=== PATIENT | female | born 1965 | race Caucasian/White ===

== ENCOUNTER 2017-11-25 17:22 | Inpatient (IN) | payer MEDICAID ==
[~2017-11-25] VITALS: Ht 167.6 cm; Wt 110.9 kg
[~2017-11-25 17:22] MED LIST: LEVO137T6 PO; LISI20TA2 PO; PARO20TA57 PO; PENI250T4 PO; SULF1TAB38 PO; [UNRECOGNIZED DRUG - CODE]
--- OUTSIDE RECORDS SUMMARY | 2017-11-25 17:28 | XMS REPORT ---
Author Author LESVIA DELACRUZ [facility] eClinicalWorks Address Unknown Phone Unavailable Care Team Providers Care Painting Department Supervisor Name Role Phone LESVIA DELACRUZ CP Unavailable Allergies No Known Allergies Problems Problem Type Condition ICD-9 Code Onset Dates Condition Status Problem Pneumonia, organism unspecified 486 Active Problem Need for prophylactic vaccination and inoculation, Influenza V04.81 Active Problem Unspecified sleep apnea 780.57 Active Problem Depression 311 Active Problem Encounter for long-term current use of medication V58.69 Active Problem Diabetes type 2, uncontrolled 250.02 Active Problem Dependence on machine for supplemental oxygen V46.2 Active Problem Obstructive chronic bronchitis, with (acute) exacerbation 491.21 Active Problem Hypothyroidism 244.9 Active Problem Chronic respiratory failure 518.83 Active Problem Insomnia, unspecified 780.52 Active Problem Cramp of limb 729.82 Active Problem Personal history of other allergy, other than to medicinal agents V15.09 Active Problem Personal history of noncompliance with medical treatment, presenting hazards to health V15.81 Active Medications No Known Medications Results No Known Results Summary Purpose eClinicalWorks Submission
--- OUTSIDE RECORDS SUMMARY | 2017-11-25 17:28 | XMS REPORT ---
Author Author LESVIA DELACRUZ [facility] eClinicalWorks Address Unknown Phone Unavailable Care Team Providers Care Executive Assistant To General Counsel Name Role Phone LESVIA DELACRUZ CP Unavailable [...] presenting hazards to health V15.81 Active Medications Medication Code System Code Instructions Start Date End Date Status Dosage Ipratropium-Albuterol [facility] [address]-24 0.5 mg-3 mg(2.5 mg base)/3 mL Inhalation Four times a day & prn up to 6 doses Jul 27, 2014 3 ml Results No Known Results Summary Purpose eClinicalWorks Submission
--- OUTSIDE RECORDS SUMMARY | 2017-11-25 17:28 | XMS REPORT ---
Author Author LESVIA DELACRUZ [facility] eClinicalWorks Address Unknown Phone Unavailable Care Team Providers Care General Scrap Worker Name Role Phone LESVIA DELACRUZ CP Unavailable [...] Instructions Start Date End Date Status Dosage Levothyroxine Sodium [facility] [address]-20 100 MCG Orally Once a day Mar 23, 2015 1 tablet Fish Oil [facility] [address]-49 1000 MG Orally Once a day Mar 23, 2015 2 capsule Ferrous Sulfate [facility] [address]-55 324 (65 Fe) MG Orally Once a day Mar 1 tablet Results No Known Results Summary Purpose eClinicalWorks Submission
--- OUTSIDE RECORDS SUMMARY | 2017-11-25 17:28 | XMS REPORT ---
Author Author LESVIA DELACRUZ [facility] eClinicalWorks Address Unknown Phone Unavailable Care Team Providers Care Track Greaser Name Role Phone LESVIA DELACRUZ CP Unavailable [...] Instructions Start Date End Date Status Dosage VESIcare [facility] [address]-31 5 MG appoint needed for additional refills TAKE ONE TABLET BY MOUTH ONCE DAILY Metformin HCl [facility] [address]-41 500 MG Orally Twice a day. Appt needed for further refills 1 tablet with meals Results No Known Results Summary Purpose eClinicalWorks Submission
--- OUTSIDE RECORDS SUMMARY | 2017-11-25 17:28 | XMS REPORT ---
Author Author DOMINICK CHRISTINE [facility] eClinicalWorks Address Unknown Phone Unavailable Care Team Providers Care Intravenous Therapy Nurse Name Role Phone DOMINICK CHRISTINE CP Unavailable Allergies, Adverse Reactions, Alerts Substance Reaction Event Type Bactrim Info Not Available Drug Allergy Problems Problem Type Condition Code Onset Dates Condition Status Assessment Encounter for immunization Z23 Active Assessment Oral thrush B37.0 Active Assessment Microcytic anemia D50.9 Active Assessment Hyperlipidemia, unspecified hyperlipidemia type E78.5 Active Assessment Essential hypertension I10 Active Assessment Urinary incontinence R32 Active Problem Hypothyroidism E03.9 Active Assessment Gastroesophageal reflux disease without esophagitis K21.9 Active Problem Type II diabetes mellitus E11.9 Active Assessment 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 Problem Heat rash L74.0 Active Problem Encounter for screening breast examination Z12.39 Active Problem On home oxygen therapy Z99.81 Active Problem Gastroesophageal reflux disease without esophagitis K21.9 Active Problem Essential hypertension I10 Active Assessment Obesity due to excess calories E66.09 Active Assessment Allergic rhinitis J30.9 Active Problem Type 2 diabetes mellitus with hyperglycemia E11.65 Active Assessment Dysuria R30.0 Active Problem Encounter for screening for malignant neoplasm of cervix Z12.4 Active Problem Screening mammogram, encounter for Z12.31 Active Problem Hyperlipidemia, unspecified hyperlipidemia type E78.5 Active Problem Encounter for well woman exam with routine gynecological exam Z01.419 Active Problem Allergic rhinitis J30.9 Active Problem Microcytic anemia D50.9 Active Assessment Hypothyroidism E03.9 Active Assessment Type 2 diabetes mellitus with hyperglycemia E11.65 Active Problem Obesity due to excess calories E66.09 Active Problem 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 1 tablet with meals Loratadine [facility] [address]-68 10 mg Orally Once a day December 08, 2015 1 tablet Ferrous Sulfate [facility] 08949732846 325 (65 Fe) MG Orally Once a day 1 tablet Albuterol Sulfate [facility] [address]-38 2.5 mg /3 mL (0.083 %) Inhalation 4 times a day October 07, 2013 1 Each by Inhalation route 4 times a day PRN for cough and wheeze Levothyroxine Sodium [facility] 10791557799 150 MCG Orally Once a day in AM 1 tablet on empty stomach with full glass of water Lisinopril [facility] 75547178016 2.5 MG Orally Once a day 1 tablet Norvasc [facility] [address]-14 10 mg Orally Once a day 1 tablet 1 time per day Spiriva HandiHaler [facility] [address]-33 18 MCG Inhalation Once a day 1 capsule Pepcid [facility] [address]-80 20 mg 1 TAB orally 2 times a day October 01, 2013 1 tablet by Oral route 2 times per day Nystatin-Triamcinolone [facility] [address]-43 723182-3.1 UNIT/GM Externally Twice a day January 12, 2016 apply thin layer to rash twice a day ProAir HFA [facility] [address]-39 108 (90 Base) MCG/ACT Inhalation every 4 hrs 2 puffs as needed Montelukast Sodium [facility] [address]-28 10 mg Orally Once a day TAKE ONE TABLET BY MOUTH ONCE DAILY Flonase [place] 0 50 mcg/actuation Nasally 2 spray(s) intranasally 2 times a day Jul 19, 2014 1 sprays by Nasal route 2 times per day in each nostril GlipiZIDE [facility] [address]-32 5 mg Orally 2 times a day 1 tablet Furosemide [facility] [address]-91 40 mg Orally Once a day TAKE ONE TABLET BY MOUTH ONCE DAILY Ipratropium-Albuterol [facility] [address]-20 0.5 mg-3 mg(2.5 mg base)/3 mL Inhalation Four times a day & prn up to 6 doses Jul 27, 2014 3 ml Advair Diskus [facility] 27090259380 250-50 MCG/DOSE Inhalation Twice a day INHALE ONE PUFF BY MOUTH TWICE DAILY APPROXIMATELY 12 HOURS APART Lipitor [facility] [address]-64 10 mg Orally Once a day 1 tablet Myrbetriq [facility] [address]-87 25 MG Orally Once a day Jun 08, 2016 Jul 08, 2016 1 tablet Fish Oil [facility] [address]-40 1000 MG Orally Once a day 2 capsule Paroxetine HCl [facility] 27472230050 40 MG Orally Once a day 1 tablet in the morning Procedures Procedure Coding System Code Date URINALYSIS, AUTO, W/O SCOPE CPT-4 15031 Jun 08, 2016 [facility] CPT-4 NOBLL Jun 08, 2016 GLYCATED HEMOGLOBIN TEST CPT-4 17785 Jun 08, 2016 SINGLE IMMUNIZATION ADMIN CPT-4 35524 Jun 08, 2016 FLUARIX QUAD P-FREE 3 AND UP .50 2015 CPT-4 81421 Jun 08, 2016 Office Visit, Est Pt., Level 4 CPT-4 92970 Jun 08, 2016 VENIPUNCT, ROUTINE* CPT-4 92994 Jun 08, 2016 Vital Signs Date/Time: Jun 08, 2016 Blood Pressure Systolic 130 mmHg Weight 252.0 lbs Height 66 in BMI 40.67 Index Blood Pressure Diastolic 78 mmHg Results Name Result Date Reference Range Unit Abnormality Flag THYROID ANALYZER ----TSH 3.060 [id number] 0.450-4.500 uIU/mL A1C (IN HOUSE) ----Exp date [id number] ----A1C IN HOUSE 6.4 [id number] 4.3 - 5.6 % ----Lot [id number] ----Previous A1c 6.1 20160608 UA LONG DIP (IN HOUSE) ----ROLLY negative 20160608 ----NIT negative 20160608 ----SG 1.015 20160608 ----KET negative 20160608 ----UCHE negative 20160608 ----GLU negative 20160608 ----Odor none 20160608 ----pH 6.0 20160608 ----BLO trace-intact 20160608 ----URO 0.2 20160608 ----Protein negative 20160608 ----Lot # [id number] ----Exp date 20160608 ----Clarity clear 20160608 ----Color yellow [id number] ROUTINE VENIPUNCTURE Immunizations Vaccine Administration Date FLUARIX QUAD P-FREE 3 AND UP .50 2015Jun 08, 2016 Summary Purpose eClinicalWorks Submission
--- OUTSIDE RECORDS SUMMARY | 2017-11-25 17:29 | XMS REPORT ---
Author Author LESIVA DELACRUZ [facility] eClinicalWorks Address Unknown Phone Unavailable Care Team Providers Care Internal Combustion Engine Inspector Name Role Phone LESVIA DELACRUZ CP Unavailable [...]
--- OUTSIDE RECORDS SUMMARY | 2017-11-25 17:29 | XMS REPORT ---
Author LESVIA Puri [facility] eClinicalWorks Address Unknown Phone Unavailable Care Team Providers Care Cancer Registry Coordinator Name Role Phone LESVIA DELACRUZ CP Unavailable Allergies, Adverse Reactions, Alerts Substance Reaction Event Type Bactrim Info Not Available Drug Allergy Problems Problem Type Condition Code Onset Dates Condition Status Problem Mixed incontinence N39.46 Active Problem Microcytic anemia D50.9 Active Problem Essential hypertension I10 Active Assessment Oral thrush B37.0 Active Problem Dependence on nocturnal oxygen therapy Z99.81 Active Problem Obstructive sleep apnea syndrome G47.33 Active Problem History of respiratory failure Z87.09 Active Problem Depression F32.9 Active Problem Insomnia G47.00 Active Problem Hypothyroidism E03.9 Active Problem Type 2 diabetes mellitus without complication E11.9 Active Medications Medication Code System Code Instructions Start Date End Date Status Dosage Nystatin [facility] [address]-83 821504 UNIT/ML Mouth/Throat 4 times a day MayJun 13, 2015 swish 4-6ml as long as possible then spit GlipiZIDE ER [facility] [address]-91 5 MG Orally Once a day TAKE ONE TABLET BY MOUTH DAILY Norvasc [facility] [address]-17 10 MG Orally Once a day October 15, 2014 1 tablet 1 time per day ProAir HFA [facility] [address]-70 108 (90 Base) MCG/ACT Inhalation every 4 hrs 2 puffs as needed Amlodipine Besylate [facility] 24904746508 10 MG TAKE ONE TABLET BY MOUTH DAILY Spiriva HandiHaler [facility] [address]-55 18 MCG Inhalation Once a day 1 capsule Paroxetine HCl [facility] [address]-24 40 MG Orally Once a day TAKE ONE TABLET BY MOUTH DAILY (DO NOT CRUSH OR CHEW) Levothyroxine Sodium [facility] [address]-28 100 MCG Orally Once a day 1 tablet Furosemide [facility] 68890284319 40 MG TAKE ONE TABLET BY MOUTH ONCE DAILY Metformin HCl [facility] [address]-81 500 MG Orally Twice a day. Appt needed for further refills 1 tablet with meals Pepcid [facility] [address]-12 20 mg 1 TAB orally 2 times a day October 01, 2013 1 tablet by Oral route 2 times per day Fish Oil [facility] [address]-30 1000 MG Orally Once a day Mar 23, 2015 2 capsule Ferrous Sulfate [facility] [address]-15 324 (65 Fe) MG Orally Once a day Mar 1 tablet VESIcare [facility] [address]-25 5 MG Orally Once a day TAKE ONE TABLET BY MOUTH ONCE DAILY Advair Diskus [facility] 85337247958 250-50 MCG/DOSE INHALE ONE PUFF BY MOUTH TWICE DAILY APPROXIMATELY 12 HOURS APART Lipitor [facility] 08633771356 10 MG Orally Once a day 1 tablet Flonase [facility] [address]-25 50 mcg/actuation 2 spray(s) intranasally 2 times a day Jul 19, 2014 1 sprays by Nasal route 2 times per day in each nostril Ipratropium-Albuterol [facility] [address]-23 0.5 mg-3 mg(2.5 mg base)/3 mL Inhalation Four times a day & prn up to 6 doses Jul 27, 2014 3 ml Potassium Chloride Windy ER [facility] 14935365924 10 MEQ TAKE ONE TABLET BY MOUTH DAILY Albuterol Sulfate [facility] [address]-68 2.5 mg /3 mL (0.083 %) October 07, 2013 1 Each by Inhalation route every 4 hours for cough and wheeze PRN for wheezing or cough Procedures Procedure Coding System Code Date Office Visit, Est Pt., Level 3 CPT-4 90719 May 30, 2015 Vital Signs Date/Time: May 30, 2015 Temperature 98.4 F Weight 209.6 lbs Height 66 in BMI 33.83 Index Blood Pressure Diastolic 80 mmHg Blood Pressure Systolic 128 mmHg Cardiac Monitoring Heart Rate 100 bpm Results No Known Results Summary Purpose eClinicalWorks Submission
--- OUTSIDE RECORDS SUMMARY | 2017-11-25 17:29 | XMS REPORT ---
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 Problem Type II diabetes mellitus E11.9 Active Problem Anemia D64.9 Active Problem Microcytic anemia D50.9 Active Problem Obesity due to excess calories E66.09 Active Problem Urinary incontinence R32 Active Assessment Anemia D64.9 Active Assessment Urinary incontinence R32 Active Assessment Allergic rhinitis J30.9 Active Assessment Obesity due to excess calories E66.09 Active Assessment Microcytic anemia D50.9 Active Assessment 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 Medications Medication Code System Code Instructions Start Date End Date Status Dosage Norvasc [facility] [address]-10 10 MG Orally Once a day October 15, 2014 1 tablet 1 time per day VESIcare [facility] [address]-87 5 MG Orally Once a day TAKE ONE TABLET BY MOUTH ONCE DAILY Advair Diskus [facility] 56593408367 250-50 MCG/DOSE INHALE ONE PUFF BY MOUTH TWICE DAILY APPROXIMATELY 12 HOURS APART Fish Oil [facility] [address]-96 1000 MG Orally Once a day Mar 23, 2015 2 capsule Paroxetine HCl [facility] [address]-23 40 MG Orally Once a day TAKE ONE TABLET BY MOUTH DAILY (DO NOT CRUSH OR CHEW) Levothyroxine Sodium [facility] 99980695458 100 MCG TAKE ONE TABLET BY MOUTH ONCE DAILY Albuterol Sulfate [facility] [address]-87 2.5 mg /3 mL (0.083 %) October 07, 2013 1 Each by Inhalation route every 4 hours for cough and wheeze PRN for wheezing or cough Furosemide [facility] 85667430775 40 MG TAKE ONE TABLET BY MOUTH ONCE DAILY Potassium Chloride Windy ER [facility] 49305789724 10 MEQ TAKE ONE TABLET BY MOUTH DAILY GlipiZIDE ER [facility] [address]-09 5 MG Orally Once a day TAKE ONE TABLET BY MOUTH DAILY Flonase [facility] 0 50 mcg/actuation 2 spray(s) intranasally 2 times a day Jul 19, 2014 1 sprays by Nasal route 2 times per day in each nostril Ferrous Sulfate [facility] [address]-14 325 (65 Fe) MG Orally Once a day TAKE ONE TABLET BY MOUTH ONCE DAILY (MUST HAVE APPOINTMENT FOR REFILL) Metformin HCl [facility] [address]-92 500 MG Orally Twice a day. Appt needed for further refills 1 tablet with meals Pepcid [facility] [address]-51 20 mg 1 TAB orally 2 times a day October 01, 2013 1 tablet by Oral route 2 times per day Spiriva HandiHaler [facility] [address]-52 18 MCG Inhalation Once a day 1 capsule ProAir HFA [facility] [address]-64 108 (90 Base) MCG/ACT Inhalation every 4 hrs 2 puffs as needed Ipratropium-Albuterol [facility] [address]-86 0.5 mg-3 mg(2.5 mg base)/3 mL Inhalation Four times a day & prn up to 6 doses Jul 27, 2014 3 ml Lipitor [facility] 32322063483 10 MG Orally Once a day 1 tablet Procedures Procedure Coding System Code Date MICROALBUMIN, SEMIQUANT CPT-4 79682 Aug 26, 2015 COMPLETE CBC W/AUTO DIFF WBC CPT-4 24721 Aug 26, 2015 GLYCATED HEMOGLOBIN TEST CPT-4 12351 Aug 26, 2015 ASSAY OF URINE CREATININE CPT-4 83749 Aug 26, 2015 Office Visit, Est Pt., Level 3 CPT-4 13083 Aug 26, 2015 VENIPUNCT, ROUTINE* CPT-4 95946 Aug 26, 2015 MICROALBUMIN, QUANTITATIVE CPT-4 80651 Aug 26, 2015 Vital Signs Date/Time: Aug 26, 2015 Temperature 98.1 F Weight 226.0 lbs Height 66 in BMI 36.47 Index Blood Pressure Diastolic 80 mmHg Blood Pressure Systolic 122 mmHg Cardiac Monitoring Heart Rate 88 bpm Results Name Result Date Reference Range Unit Abnormality Flag ROUTINE VENIPUNCTURE Summary Purpose eClinicalWorks Submission
--- OUTSIDE RECORDS SUMMARY | 2017-11-25 17:29 | XMS REPORT ---
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 60164251 Problem Obesity due to excess calories E66.09 Active 621702018 Problem Allergic rhinitis J30.9 Active 73409625 Problem COPD with exacerbation J44.1 Active 319697718406419 Problem Recurrent major depressive disorder, in full remission F33.42 Active 386965377 Problem Essential hypertension I10 Active 76850968 Problem On home oxygen therapy Z99.81 Active 309038346146 Problem Gastroesophageal reflux disease without esophagitis K21.9 Active 948135948 Problem Hyperlipidemia, unspecified hyperlipidemia type E78.5 Active 99495436 ALLERGIES No Information SOCIAL HISTORY Never Assessed PLAN OF CARE VITAL SIGNS MEDICATIONS Medication Instructions Dosage Frequency Start Date End Date Duration Status Levothyroxine Sodium 150 MCG TAKE ONE TABLET BY MOUTH IN THE MORNING ON AN EMPTY STOMACH WITH A FULL GLASS OF WATER 90 Active RESULTS No Results PROCEDURES No Known procedures IMMUNIZATIONS No Known Immunizations MEDICAL (GENERAL) HISTORY Type Description Date Medical History hypertension Medical History Hypothyroidism Medical History chronic obstructive pulmonary disease (COPD) Medical History obesity Medical History type II diabetes Medical History insomnia Medical History sleep apnea Medical History oxygen dependent Medical History mood disorder Surgical History cholecystectomy
--- OUTSIDE RECORDS SUMMARY | 2017-11-25 17:29 | XMS REPORT ---
Author JOEL Novoa [facility] eClinicalWorks Address Unknown Phone Unavailable Care Team Providers Care Electrician Marine Name Role Phone JOEL FALCON CP Unavailable Allergies, Adverse Reactions, Alerts Substance Reaction Event Type Bactrim Info Not Available Drug Allergy Problems Problem Type Condition ICD-9 Code Onset [...] Active Problem Chronic respiratory failure 518.83 Active Assessment Encounter for long-term current use of medication V58.69 Active Assessment Hypothyroidism 244.9 Active Problem Insomnia, unspecified 780.52 Active Problem Cramp of limb 729.82 Active Assessment Wheezing 786.07 Active Problem Personal history of other allergy, other than to medicinal agents V15.09 Active Assessment Cough 786.2 Active Problem Personal history of noncompliance with medical treatment, presenting hazards to health V15.81 Active Medications Medication Code System Code Instructions Start Date End Date Status Dosage PredniSONE [facility] [address]-04 40 mg Orally Once a day Mar 15, 2015 Mar 20, 2015 1 tablet Tessalon Perles [facility] [address]-58 200 mg Orally Three times a day for cough Mar 15, 2015 Mar 22, 2015 1 capsule as needed Norvasc [facility] [address]-36 10 mg October 15, 2014 1 tablet 1 time per day VESIcare [facility] 99965248900 5 MG TAKE ONE TABLET BY MOUTH ONCE DAILY GlipiZIDE [facility] [address]-35 5 mg October 15, 2014 1 tablet by Oral route 1 time per day Flonase [facility] [address]-55 50 mcg/actuation 2 spray(s) intranasally 2 times a day Jul 19, 2014 1 sprays by Nasal route 2 times per day in each nostril Ipratropium-Albuterol [facility] [address]-87 0.5 mg-3 mg(2.5 mg base)/3 mL Jul 27, 2014 inhale 3 milliliters by nebulization route 4 times per day and as needed, up to 6 doses per day metformin [facility] 0 500 mg 2 times a day with meals October 01, 2013 1 tablet levothyroxine [facility] 0 200 mcg May 03, 2014 1 tablet by Oral route 1 time per day ProAir HFA [facility] 54153533678 108 (90 Base) MCG/ACT INHALE TWO PUFFS BY MOUTH EVERY 4 HOURS NEEDED FOR SHORTNESS OF BREATH/COUGH Lipitor [facility] 53684365418 10 MG Orally Once a day 1 tablet Lasix [facility] [address]-70 40 mg October 15, 2014 1 tablet by Oral route 1 time per day Spiriva HandiHaler [facility] [address]-45 18 MCG Inhalation Once a day 1 capsule Furosemide [facility] 59244356215 40 MG TAKE ONE TABLET BY MOUTH ONCE DAILY Pepcid [facility] [address]-36 20 mg 1 TAB orally 2 times a day October 01, 2013 1 tablet by Oral route 2 times per day Paroxetine HCl [facility] [address]-26 40 MG Orally Once a day TAKE ONE TABLET BY MOUTH DAILY (DO NOT CRUSH OR CHEW) Advair Diskus [facility] 38128912745 250-50 MCG/DOSE INHALE ONE PUFF BY MOUTH TWICE DAILY APPROXIMATELY 12 HOURS APART Albuterol Sulfate [facility] [address]-80 2.5 mg /3 mL (0.083 %) October 07, 2013 1 Each by Inhalation route every 4 hours for cough and wheeze PRN for wheezing or cough Procedures Procedure Coding System Code Date ASSAY THYROID STIM HORMONE CPT-4 05587 Mar 15, 2015 COMPLETE CBC W/AUTO DIFF WBC CPT-4 24484 Mar 15, 2015 Office Visit, Est Pt., Level 3 CPT-4 93063 Mar 15, 2015 COMPREHEN METABOLIC PANEL CPT-4 30643 Mar 15, 2015 LIPID PANEL CPT-4 82905 Mar 15, 2015 VENIPUNCT, ROUTINE* CPT-4 88050 Mar 15, 2015 Vital Signs Date/Time: Mar 15, 2015 Temperature 98.0 F Weight 209.3 lbs Height 66 in BMI 33.78 Index Blood Pressure Diastolic 74 mmHg Blood Pressure Systolic 124 mmHg Cardiac Monitoring Heart Rate 88 bpm Results Name Result Date Reference Range Unit Abnormality Flag ROUTINE VENIPUNCTURE Summary Purpose eClinicalWorks Submission
--- OUTSIDE RECORDS SUMMARY | 2017-11-25 17:29 | XMS REPORT ---
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 Problem Encounter for screening for malignant neoplasm of cervix Z12.4 Active Problem Screening mammogram, encounter for Z12.31 Active Problem Encounter for well woman exam with routine gynecological exam Z01.419 Active Problem Heat rash L74.0 Active Problem Type II diabetes mellitus E11.9 Active Problem Encounter for screening breast examination Z12.39 Active Problem On home oxygen therapy Z99.81 Active Problem Allergic rhinitis J30.9 Active Problem Microcytic anemia D50.9 Active Problem Anemia D64.9 Active Problem Urinary incontinence R32 Active Medications No Known Medications Results No Known Results Summary Purpose Easy [employer] Submission
--- OUTSIDE RECORDS SUMMARY | 2017-11-25 17:29 | XMS REPORT ---
Author LESVIA Puri [facility] [employer] Address Unknown Phone Unavailable Care Team Providers Care Car Electronics Installer Name Role Phone LESVIA DELACRUZ CP Unavailable Allergies No Known Allergies Problems Problem Type Condition Code Onset Dates Condition Status Problem Pneumonia, [...] Instructions Start Date End Date Status Dosage Furosemide [facility] [address]-62 40 MG TAKE ONE TABLET BY MOUTH ONCE DAILY Results No Known Results Summary Purpose [employer] Submission
--- OUTSIDE RECORDS SUMMARY | 2017-11-25 17:29 | XMS REPORT ---
Author Author LESVIA DELACRUZ [facility] [employer] Address Unknown Phone Unavailable Care Team Providers Care Rn Social Services Name Role Phone LESVIA DELACRUZ CP Unavailable [...] Instructions Start Date End Date Status Dosage ProAir HFA [facility] [address]-68 108 (90 Base) MCG/ACT Inhalation every 4 hrs 2 puffs as needed Results No Known Results Summary Purpose [employer] Submission
--- OUTSIDE RECORDS SUMMARY | 2017-11-25 17:29 | XMS REPORT ---
Author Author LESVIA DELACRUZ Organization [employer] Address Unknown Phone Unavailable Care Team Providers Care Final Operations Technician Name Role Phone LESVIA DELACRUZ CP Unavailable Allergies No Known Allergies Problems Problem Type Condition Code Onset Dates Condition Status Problem Essential hypertension I10 Active Problem Insomnia G47.00 Active Problem Microcytic anemia D50.9 Active Assessment Upper respiratory symptom R09.89 Active Problem Mixed incontinence N39.46 Active Problem History of respiratory failure Z87.09 Active Problem Dependence on nocturnal oxygen therapy Z99.81 Active Problem Upper respiratory symptom R09.89 Active Problem Type 2 diabetes mellitus without complication E11.9 Active Problem Depression F32.9 Active Problem Obstructive sleep apnea syndrome G47.33 Active Problem Hypothyroidism E03.9 Active Medications Medication Code System Code Instructions Start Date End Date Status Dosage Azithromycin [facility] [address]-51 250 MG Orally Once a day Jun 02, 2015 Jun 07, 2015 2 tablets on the first day, then 1 tablet daily for 4 days Results No Known Results Summary Purpose [employer] Submission
--- OUTSIDE RECORDS SUMMARY | 2017-11-25 17:29 | XMS REPORT ---
Author Author LESVIA DELACRUZ Organization [employer] Address Unknown Phone Unavailable Care Team Providers Care Coal Hiker Name Role Phone LESVIA DELACRUZ CP Unavailable Allergies No Known Allergies Problems Problem Type Condition Code Onset Dates Condition Status Problem Mixed incontinence N39.46 Active Problem Microcytic anemia D50.9 Active Problem Essential hypertension I10 Active Assessment Microcytic anemia D50.9 Active Assessment Hypothyroidism E03.9 Active Problem Dependence on nocturnal oxygen therapy Z99.81 Active Problem Obstructive sleep apnea syndrome G47.33 Active Problem History of respiratory failure Z87.09 Active Problem Depression F32.9 Active Problem Insomnia G47.00 Active Problem Hypothyroidism E03.9 Active Problem Type 2 diabetes mellitus without complication E11.9 Active Medications No Known Medications Results No Known Results Summary Purpose [employer] Submission
--- OUTSIDE RECORDS SUMMARY | 2017-11-25 17:30 | XMS REPORT ---
Author Author DOMINICK CHRISTINE Organization [facility] Address [address] [place] [address] Care Team Providers Care Automatic Lathe Setter Name Role Phone CHRISTINEDOMINICK Bradshaw Unavailable PROBLEMS Type Condition ICD9-CM Code [id number] Code Onset Dates Condition Status SNOMED Code Problem On home oxygen therapy Z99.81 Active 246509656331 Problem Screening mammogram, encounter for Z12.31 Active 654392273 Problem Encounter for screening breast examination Z12.39 Active 216054754 Problem Type 2 diabetes mellitus with hyperglycemia E11.65 Active 802911107049086 Problem Gastroesophageal reflux disease without esophagitis K21.9 Active 815037676 Problem Encounter for well woman exam with routine gynecological exam Z01.419 Active 051080219 Problem Encounter for screening for malignant neoplasm of cervix Z12.4 Active 966278364 Problem Essential hypertension I10 Active 27902067 Problem Hyperlipidemia, unspecified hyperlipidemia type E78.5 Active 00686189 Problem Microcytic anemia D50.9 Active 787184552 Problem Anemia D64.9 Active 886735974 Problem Allergic rhinitis J30.9 Active 26309177 Problem 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 32783708 Problem Hypothyroidism E03.9 Active 88151123 Problem Urinary incontinence R32 Active 725431252 Problem Type II diabetes mellitus E11.9 Active 99081930 Problem Obesity due to excess calories E66.09 Active 382406520 Problem Heat rash L74.0 Active 83037223 ALLERGIES Unknown Allergies SOCIAL HISTORY No smoking Hx information available PLAN OF CARE VITAL SIGNS MEDICATIONS Medication Instructions Dosage Frequency Start Date End Date Duration Status VESIcare 5 mg Orally Once a day TAKE ONE TABLET BY MOUTH ONCE DAILY 24h Active RESULTS No Results PROCEDURES No Known procedures IMMUNIZATIONS No Known Immunizations
--- OUTSIDE RECORDS SUMMARY | 2017-11-25 17:30 | XMS REPORT ---
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 30152923 Problem Obesity due to excess calories E66.09 Active 674408039 Problem Allergic rhinitis J30.9 Active 32193580 Problem COPD with exacerbation J44.1 Active [id number] Problem Recurrent major depressive disorder, in full remission F33.42 Active 356969612 Problem Essential hypertension I10 Active 43003811 Problem On home oxygen therapy Z99.81 Active 171115941241 Problem Gastroesophageal reflux disease without esophagitis K21.9 Active 215247933 Problem Hyperlipidemia, unspecified hyperlipidemia type E78.5 Active 87853749 ALLERGIES No Information ENCOUNTERS Encounter Location Date Diagnosis [facility] [address], [place] [address] Oct, [facility] [id number] [place] [address] 31723- 8748 Sep, [facility] [address], [place] [address] Sep, [facility] [id number] [place] [address] 93512- 9034 Sep, [facility] [address], [place] [address] Sep, [facility] [id number], [place] [address] Jul, Encounter for immunization Z23 [facility] [id number] [place] [address]68 -9251 Jun, Subacute maxillary sinusitis J01.00 [facility] [id number] [place] [address] 35519- 9456 May, [facility] [address] [address]- 7608 May, [facility] [id number] [place] [address] 65605- 8375 May, Type II diabetes mellitus E11.9 ; Hypothyroidism E03.9 ; 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 ; Cough R05 ; COPD with exacerbation J44.1 and Pneumonia of right lower lobe due to infectious organism J18.1 [facility] [id number] [place] [address] 75877- 0165 Mar, Hyperlipidemia, unspecified hyperlipidemia type E78.5 [facility] [id number] [place] [address] 18963- 8559 Mar, Hypothyroidism E03.9 and Hyperlipidemia, unspecified hyperlipidemia type E78.5 [facility] [id number] [place] [address] 09531- 4406 Feb, Type II diabetes mellitus E11.9 ; Hypothyroidism E03.9 ; 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 ; Obesity due to excess calories E66.09 ; Allergic rhinitis J30.9 ; Microcytic anemia D50.9 ; Gastroesophageal reflux disease without esophagitis K21.9 ; Essential hypertension I10 ; Hyperlipidemia, unspecified hyperlipidemia type E78.5 ; Recurrent major depressive disorder, in full remission F33.42 and Urinary incontinence R32 [facility] [id number] [place] [address] 14311- 0541 Jan, [facility] [id number] [place] [address] 65871- 3906 Jan, [id number] [place] [address] 70767- 9117 November, [address] [address]- 5[address] Sep, Type II diabetes mellitus E11.9 ; Hypothyroidism E03.9 ; On home oxygen therapy Z99.81 ; Gastroesophageal reflux disease without esophagitis K21.9 ; Recurrent major depressive disorder, in full remission F33.42 ; Essential hypertension I10 ; 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 ; Urinary incontinence R32 ; Anemia D64.9 ; Allergic rhinitis J30.9 ; Hyperlipidemia, unspecified hyperlipidemia type E78.5 and Tinea pedis of both feet B35.[address] [address]- 3948 Jun, [facility] [place] [address] [address] Jun, Acute upper respiratory infection, unspecified J06.9 and Other viral agents as the cause of diseases classified elsewhere B97.[address] 57241- 3360 May, [address] 27737- 5760 May, Type 2 diabetes mellitus with hyperglycemia E11.65 ; Hypothyroidism E03.9 ; Obesity due to excess calories E66.09 ; Allergic rhinitis J30.9 ; Dysuria R30.0 ; 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 ; Gastroesophageal reflux disease without esophagitis K21.9 ; Urinary incontinence R32 ; Essential hypertension I10 ; Hyperlipidemia, unspecified hyperlipidemia type E78.5 ; Microcytic anemia D50.9 ; Oral thrush B37.0 and Encounter for immunization Z23 [address] [address]- [address] Apr, [address] 95982- 2339 Apr, [address] [id number] [address] Mar, [facility] [id number] [place] [address] 73919- 2018 Dec, [facility] [id number] [place] [address] 98766- 6955 Dec, [facility] [id number] [place] [address] 05115- 0543 Dec, Encounter for well woman exam with routine gynecological exam Z01.419 ; Encounter for screening for malignant neoplasm of cervix Z12.4 ; Screening mammogram, encounter for Z12.31 ; Encounter for screening breast examination Z12.39 ; On home oxygen therapy Z99.81 ; 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 ; Heat rash L74.0 ; Type II diabetes mellitus E11.9 and Hypothyroidism E03.9 [facility] [id number] [place] [address] 85261- 2187 November, [facility] [id number] [place] [address] 07416- 0351 November, Type II diabetes mellitus E11.9 ; Allergic rhinitis J30.9 ; Hypothyroidism E03.9 ; Obesity due to excess calories E66.09 ; Urinary incontinence R32 ; Gastroesophageal reflux disease without esophagitis K21.9 and Essential hypertension I10 [facility] [id number] [place] [address] 44801- 5940 Oct, [facility] [id number] [place] [address] 38103- 4465 Sep, [facility] [id number] [place] [address] 80328- 7114 Sep, [facility] [id number] [place] [address] 59793 -1146 Aug, Acute maxillary sinusitis J01.00 [facility] [id number] [place] [address] 90545- 4637 Aug, [place] [id number] [place] [address] 97070- 5800 Aug, [address] [address] 85099- 0723 16 Aug, 2015 Type II diabetes mellitus E11.9 [place] [address] 58667- 9880 Aug, Type II diabetes mellitus E11.9 ; Hypothyroidism E03.9 ; 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 ; Obesity due to excess calories E66.09 ; Urinary incontinence R32 ; Anemia D64.9 ; Microcytic anemia D50.9 and Allergic rhinitis J30.[address] 11141- 0308 May, Upper respiratory symptom R09.[address] 13621- 8763 May, Oral thrush B37.[address] 67661- 9073 Apr, Hypothyroidism E03.9 and Microcytic anemia D50.9 [place] [id number] [place] [address] 53928- 4546 Apr, Encounter for long-term current use of medication Z79.899 ; Hypothyroidism E03.9 ; Microcytic anemia D50.9 ; Type 2 diabetes mellitus without complication E11.9 ; Essential hypertension I10 and Mixed incontinence N39.46 [place] [id number] [place] [address] 82152- 2719 Apr, [place] [address] 83193- 4740 Mar, [place] [id number] [place] [address] 66717- 9767 Mar, [place] [address] 17168- 4372 Mar, [facility] [address], [place] [address]- 2076 Mar, [facility] [id number] [place] [address] 69768- 0506 Mar, [facility] [address], [place] [address]- 2546 Mar, [facility] [id number] [place] [address] 05101 2546 Mar, [facility] [id number] [place] [address] 85618- 2006 Feb, Cough 786.2 ; Wheezing 786.07 ; Hypothyroidism 244.9 and Encounter for long-term current use of medication V58.69 [facility] [id number] [address]- 8258 Feb, Diabetes type 2, uncontrolled 250.02 ; Depression 311 ; Encounter for long-term current use of medication V58.69 and Hypothyroidism 244.9 [facility] [address], [place] [address]- 9106 Feb, [facility] [address], [place] [address]- 7516 Jan, [facility] [address] [address]- 6901 Oct, [facility] [address], [place] [address]- 2306 14 Oct, 2014 [facility] [address] [address]- 2576 Oct, [facility] [id number] [place] [address] 94287- 6196 30 Sep, 2014 [facility] [address], [place] [address]- 4676 Sep, [facility] [id number] [place] [address] 21324- 1040 Sep, [facility] [place] [facility] [address] [id number] [place] [address]- 4275 Aug, [facility] [place] [facility] [address] [id number] [place] [address]- 8926 Aug, [facility] [place] [facility] [address] [facility] [id number] [place] [address]- 1801 Jul, [facility] [place] [facility] [address] [id number] [place] [address]- 6661 Jul, [facility] [place] [facility] [address] [id number] [place] [address]- 7096 Jul, [facility] [place] [facility] [address] [id number] [place] [address]- 1212 Jul, [facility] [place] [facility] [address] [facility] [id number] [place] [address]- 0349 Jul, [facility] [place] [facility] [address] [id number] [place] [address]- 7738 Jul, [facility] [place] [facility] [address] [id number] [place] [address]- 4519 Jul, [facility] [place] [facility] [address] [facility] [id number] [place] [address]- 0703 Jul, [facility] [place] [facility] [address] [id number] [address]- 8740 Jun, [facility] [place] [facility] [address] [id number], [place] [address]- 7861 Jun, [facility] [place] [facility] [address] [id number] [place] [address]- 6366 May, [facility] [place] [facility] [address] [id number] [place] [address]- 7217 May, [facility] [place] [facility] [address] [facility] [id number] [place] [address]- 2546 May, [facility] [place] [facility] [address] [id number] [place] [address]- 5204 Apr, [facility] [place] [facility] [address] [id number] [place] [address]- 7529 Apr, [facility] [place] [facility] [address] [id number] [place] [address]- 6006 Apr, [facility] [place] [facility] [address] [id number] [place] [address]- 1386 Apr, [facility] [place] [facility] [address] [id number] [place] [address]- 1732 Apr, [facility] [place] [facility] [address] [id number] [place] [address]- 7843 Apr, [facility] [place] [facility] [address] [id number] [place] [address]- 6555 Mar, [facility] [place] [facility] [address] [id number] [place] [address]- 5126 Mar, [facility] [place] [facility] [address] [id number] [place] [address]- 3243 19 Mar, 2014 [facility] [place] [facility] [address] [id number] [place] [address]- 9280 19 Mar, 2014 [facility] [place] [facility] [address] [id number] [place] [address]- 6304 Sep, [facility] [place] [facility] [address] [id number] [place] [address]- 1015 Sep, [facility] [place] [facility] [address] [id number] [place] [address]- 9583 Sep, [facility] [place] [facility] [address] [id number] [place] [address]- 4774 Sep, [facility] [place] [facility] [address] [id number] [place] [address]- 6157 Aug, [facility] [place] [facility] [address] [id number] [place] [address]- 3096 Aug, [facility] [place] [facility] [address] [id number] [place] [address]- 2395 Aug, [facility] [place] [facility] [address] [id number] [place] [address]- 5553 Aug, [facility] [place] [facility] [address] [id number] [place] [address]- 8847 Aug, [facility] [place] [facility] [address] [id number] [place] [address]- 0656 Aug, [facility] [place] [facility] [address] [id number] [place] [address]- 3691 Jul, [facility] [place] [facility] [address] [id number] [place] [address]- 5766 Jul, [facility] [place] [facility] [address] [id number] [place] [address]- 8754 Jul, [facility] [place] [facility] [address] [id number], [place] [address]- 8096 Jul, [facility] [place] [facility] [address] [id number] [place] [address]- 0533 Jun, [facility] [place] [facility] [address] [id number] [place] [address]- 4486 Jun, [facility] [place] [facility] [address] [id number] [address]- 6131 May, [facility] [place] [facility] [address] [id number][place] [address]- 0820 May, [facility] [place] [facility] [address] [id number] [place] [address]- 7046 Apr, [facility] [place] [facility] [address] [id number], [place] [address]- 5786 Apr, [facility] [place] [facility] [address] [id number] [place] [address]- 1225 Apr, [facility] [place] [facility] [address] [id number] [place] [address]- 5320 Mar, [facility] [address] [id number] [place] [address]- 8115 Mar, [facility] [place] [facility] [address] [id number] [place] [address]- 0768 Mar, [facility] [address] [id number] [place] [address]- 6166 Mar, [facility] [place] [facility] [address] [id number] [place] [address]- 0900 Feb, [facility] [place] [facility] [address] [id number] [place] [address]- 4399 Jan, [facility] [place] [facility] [address] [id number] [place] [address]- 3651 Jan, [facility] [address] [id number] [place] [address]- 8552 Jan, [facility] [place] [facility] [address] [id number] [place] [address]- 6953 Jan, [facility] [place] [facility] [address] [id number] [place] [address]- 1337 Dec, [facility] [place] [facility] [address] [id number] [place] [address]- 0220 Dec, [facility] [place] [facility] [address] [id number] [place] [address]- 9791 Dec, [facility] [place] [facility] [address] [id number] [place] [address]- 1305 Dec, [facility] [place] [facility] [address] [id number] [place] [address]- 4735 Dec, [facility] [place] [facility] [address] [id number] [place] [address]- 6736 Dec, [facility] [place] [facility] [address] [id number] [place] [address]- 9423 November, [facility] [place] [facility] [address] [id number] [place] [address]- 3623 November, [facility] [address] [id number] [place] [address]- 2045 November, [facility] [address] [id number] [place] 5456 Oct, [facility] [address] [id number] [place] [address]- 2274 Oct, [facility] [address] [id number] [place] [address]- 3224 Sep, [facility] [address] [id number] [place] [address]- 2519 Sep, [facility] [address] [id number] [place] [address]- 4201 Sep, [facility] [address] [id number] [place] [address]- 0629 Sep, [facility] [address] [id number] [place] [address]- 4533 Sep, [facility] [address] [id number] [place] [address]- 1680 Aug, [facility] [address] [id number] [place] [address]- 8688 Aug, [facility] [address] [id number] [place] [address]- 4511 Aug, [facility] [place] [facility] [address] [id number] [place] [address]- 6562 Aug, [facility] [place] [facility] [address] [id number] [place] [address]- 5456 Aug, [facility] [place] [facility] [address] [id number] [place] [address]- 2908 Jul, [facility] [place] [facility] [address] [id number] [place] [address]- 7359 08 Jul, 2012 [facility] [address] [id number] [place] [address]- 0004 19 Jun, 2012 [facility] [place] [facility] [address] [id number] [place] [address]- 4830 Jun, [facility] [place] [facility] [address] [id number] [place] [address]- 0715 18 Jun, 2012 [facility] [place] [facility] [address] [id number] [place] [address]- 1201 18 Jun, 2012 [facility] [place] [facility] [address] [id number] [place] [address]- 9401 Jun, [facility] [place] [facility] [address] [id number] [place] [address]- 1774 Jun, [facility] [address] [id number] [place] [address]- 0837 Jun, [facility] [place] [facility] [address] [id number] [place] [address]- 3913 Jun, [facility] [place] [facility] [address] [id number] [place] [address]- 9958 Jun, [facility] [place] [facility] [address] [id number] [place] [address]- 8802 May, [facility] [place] [facility] [address] [id number] [place] [address]- 4425 May, [facility] [place] [facility] [address] [id number] [address]- 7483 May, [facility] [place] [facility] [address] [id number] [place] [address]- 8514 May, [facility] [place] [facility] [address] [id number] [place] [address]- 2561 May, [facility] [place] [facility] [address] [id number], [place] [address]- 7371 May, [facility] [place] [facility] [address] [id number] [place] [address]- 0048 08 May, 2012 [facility] [place] [facility] [address] [id number] [place] [address]- 8676 Apr, [facility] [place] [facility] [address] [id number] [place] [address] 2546 Mar, [facility] [place] [facility] [address] [id number] [place] [address]- 7106 Mar, [facility] [place] [facility] [address] [id number] [place] [address]- 1166 Feb, [facility] [place] [facility] [address] [id number] [place] [address]- 6316 Feb, [facility] [place] [facility] [address] [id number] [place] [address]- 7779 Feb, [facility] [place] [facility] [address] [id number] [place] [address]- 3325 Feb, [facility] [place] [facility] [address] [id number] [place] [address]- 6697 Jan, [facility] [place] [facility] [address] [id number] [place] [address]- 3393 Jan, [facility] [place] [facility] [address] [id number] [place] [address]- 1316 Jan, [facility] [place] [facility] [address] [id number] [place] [address]- 9261 Jan, [facility] [place] [facility] [address] [id number] [place] [address]- 7131 Dec, [facility] [place] [facility] [address] [id number] [place] [address]- 7446 Dec, [facility] [place] [facility] [address] [id number] [place] [address]- 2546 Dec, [facility] [place] [facility] [address] [id number] [place] [address]- 3953 Dec, [facility] [id number] [address]- 4863 Dec, [facility] [address] [address]- 1396 Sep, [facility] [address] [address] 2546 Aug, [facility] [address] [place] [address] 2546 Jul, [facility] [address] [address]- 3258 Jun, [facility] [address] [address] Jun, [facility] [id number] [address] Jun, [facility] [id number] [address] Jun, [facility] [id number] [address] May, [facility] [id number] [address] May, [facility] [id number] [address] Apr, [facility] [id number] [address] Jun, [facility] [id number] [address] Apr, IMMUNIZATIONS No Known Immunizations SOCIAL HISTORY Never Assessed REASON FOR VISIT Medication question PLAN OF CARE VITAL SIGNS MEDICATIONS Medication Instructions Dosage Frequency Start Date End Date Duration Status Lipitor 20 mg Orally Once a day 1/2 tablet 24h Active RESULTS No Results PROCEDURES No Known procedures INSTRUCTIONS MEDICATIONS ADMINISTERED No Known Medications MEDICAL (GENERAL) HISTORY Type Description Date Medical History hypertension Medical History Hypothyroidism Medical History chronic obstructive pulmonary disease (COPD) Medical History obesity Medical History type II diabetes Medical History insomnia Medical History sleep apnea Medical History oxygen dependent Medical History mood disorder Surgical History cholecystectomy
--- OUTSIDE RECORDS SUMMARY | 2017-11-25 17:31 | XMS REPORT ---
Author Author DOMINICK CHRISTINE Organization [employer] Address Unknown Phone Unavailable Care Team Providers Care Impregnator Helper Name Role Phone DOMINICK CHRISTINE CP Unavailable Allergies No Known Allergies Problems Problem Type Condition Code Onset Dates Condition Status Problem Heat rash L74.0 Active Problem Encounter for screening breast examination Z12.39 Active Problem On home oxygen therapy Z99.81 Active Problem Gastroesophageal reflux disease without esophagitis K21.9 Active Problem Essential hypertension I10 Active Problem Type 2 diabetes mellitus with hyperglycemia E11.65 Active Problem Encounter for screening for malignant [...] J43.9 Active Problem Anemia D64.9 Active Problem Hypothyroidism E03.9 Active Problem Urinary incontinence R32 Active Problem Type II diabetes mellitus E11.9 Active Medications Medication Code System Code Instructions Start Date End Date Status Dosage Paroxetine HCl [facility] [address]-56 40 mg Orally Once a day 1 tablet in the morning Results No Known Results Summary Purpose [employer] Submission
--- OUTSIDE RECORDS SUMMARY | 2017-11-25 17:31 | XMS REPORT ---
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 31859948 Problem Type II diabetes mellitus E11.9 Active 67340648 Problem Hypothyroidism E03.9 Active 70316558 Problem Encounter for well woman exam with routine gynecological exam Z01.419 Active 529917144 Problem Encounter for screening for malignant neoplasm of cervix Z12.4 Active 829746457 Problem On home oxygen therapy Z99.81 Active 448453479767 Problem Heat rash L74.0 Active 94748291 Problem Screening mammogram, encounter for Z12.31 Active 353396663 Problem Encounter for screening breast examination Z12.39 Active 693253669 Problem Microcytic anemia D50.9 Active 600216290 Problem Anemia D64.9 Active 810013190 Problem Urinary incontinence R32 Active 201575904 Problem Allergic rhinitis J30.9 Active 73436126 Problem Obesity due to excess calories E66.09 Active 679481596 ALLERGIES Unknown Allergies SOCIAL HISTORY No smoking Hx information available PLAN OF CARE VITAL SIGNS MEDICATIONS Medication Instructions Dosage Frequency Start Date End Date Duration Status Flonase 50 mcg/actuation 1 sprays by Nasal route 2 times per day in each nostril Jun, Active RESULTS No Results PROCEDURES No Known procedures IMMUNIZATIONS No Known Immunizations
--- OUTSIDE RECORDS SUMMARY | 2017-11-25 17:31 | XMS REPORT ---
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 23893638 Problem Obesity due to excess calories E66.09 Active 324011785 Problem Allergic rhinitis J30.9 Active 34449633 Problem COPD with exacerbation J44.1 Active [id number] Problem Recurrent major depressive disorder, in full remission F33.42 Active 267960983 Problem Essential hypertension I10 Active 17849347 Problem On home oxygen therapy Z99.81 Active 229382307701 Problem Gastroesophageal reflux disease without esophagitis K21.9 Active 910025312 Problem Hyperlipidemia, unspecified hyperlipidemia type E78.5 Active 81278000 ALLERGIES Substance Reaction Event Type Date Status Bactrim Unknown Drug Allergy Feb, Active ENCOUNTERS Encounter Location Date Diagnosis [facility] [id number] [address] Oct, [facility] [address] [address] Sep, [facility] [id number] [place] [address] 01479- 1679 Sep, [facility] [id number] [place] [address] 55362- 5419 Sep, [facility] [id number] [place] [address] 16888- 7620 Sep, [facility] [address] [address] Jul, Encounter for immunization Z23 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 ; Cough R05 ; COPD with exacerbation J44.1 and Pneumonia of right lower lobe due to infectious organism J18.1 [place] [id number] [place] [address] 41336- 7161 Mar, Hyperlipidemia, unspecified hyperlipidemia type E78.5 [place] [id number] [place] [address] 34369- 7916 Mar, Hypothyroidism E03.9 and Hyperlipidemia, unspecified hyperlipidemia type E78.5 [place] [id number] [place] [address] 30715- 0347 Feb, Type II diabetes mellitus E11.9 ; Hypothyroidism E03.9 ; 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 ; Obesity due to excess calories E66.09 ; Allergic rhinitis J30.9 ; Microcytic anemia D50.9 ; Gastroesophageal reflux disease without esophagitis K21.9 ; Essential hypertension I10 ; Hyperlipidemia, unspecified hyperlipidemia type E78.5 ; Recurrent major depressive disorder, in full remission F33.42 and Urinary incontinence R32 [facility] [id number] [place] [address] 44511- 7803 Jan, [facility] [id number] [place] [address] 97586- 0925 Jan, [place] [id number] [place] [address] 38905- 8573 November, [place] [id number] [place] [address] 56463- 3404 Sep, Type II diabetes mellitus E11.9 ; [...] and Tinea pedis of both feet B35.3 [place] [id number] [place] [address] 10148- 8884 Jun, [facility] [address] [place] [id number] [place] [address] 63589 -1834 Jun, Acute upper respiratory infection, unspecified J06.9 and Other viral agents as the cause of diseases classified elsewhere B97.89 [place] [id number] [place] [address] 39294- 5976 May, [place] [id number] [place] [address] 47786- 0678 May, Type 2 diabetes mellitus with hyperglycemia [...] thrush B37.0 and Encounter for immunization Z23 [place] [id number] [place] [address] 51508- 2060 Apr, [address] 9[address]14- 0579 Apr, [facility] [id number] [place] [address] 57419- 8209 Mar, [facility] [id number] [place] [address] 68918- 8870 Dec, [facility] [id number] [place] [address] 31803- 5940 Dec, [facility] [id number] [place] [address] 24819- 6826 Dec, Encounter for well woman exam with routine gynecological exam Z01.419 ; Encounter for screening for malignant neoplasm of cervix Z12.4 ; Screening mammogram, encounter for Z12.31 ; Encounter for screening breast examination Z12.39 ; On home oxygen therapy Z99.81 ; 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 ; Heat rash L74.0 ; Type II diabetes mellitus E11.9 and Hypothyroidism E03.9 [facility] [id number] [place] [address] 39242- 5701 November, [facility] [id number] [place] [address] 54465- 0728 November, Type II diabetes mellitus E11.9 ; Allergic rhinitis J30.9 ; Hypothyroidism E03.9 ; Obesity due to excess calories E66.09 ; Urinary incontinence R32 ; Gastroesophageal reflux disease without esophagitis K21.9 and Essential hypertension I10 [facility] [id number] [place] [address] 14572- 0808 Oct, [facility] [id number] [place] [address] 88202- 9210 Sep, [facility] [address] 85373- 7679 Sep, [facility] [id number] [place] [address] 62427 -2857 Aug, Acute maxillary sinusitis J01.00 [facility] [id number] [place] [address] 72237- 0264 Aug, [place] [id number] [place] [address] 20827- 5002 Aug, [place] [id number] [place] [address] 63962- 0959 16 Aug, 2015 Type II diabetes mellitus E11.9 [place] [address] 22676- 3613 05 Aug, 2015 Type II diabetes mellitus E11.9 ; Hypothyroidism E03.9 ; 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9 ; Microcytic anemia D50.9 ; Type 2 diabetes mellitus without complication E11.9 ; Essential hypertension I10 and Mixed incontinence N39.46 [place] [id number] [place] [address] 13373- 8464 Apr, [address] 77594- 7615 Mar, [place] [id number] [place] [address] 22912- 6484 Mar, [address] [place] [address]- 4480 Mar, [facility] [address], [place] [address]- 0875 Mar, [facility] [address], [place] [address]- 7646 Mar, [facility] [address], [place] [address]- 9885 Mar, [facility] [id number] [place] [address] 23880- 9996 Mar, [facility] [address] [place] [address] 13271- 4504 Feb, Cough 786.2 ; Wheezing 786.07 ; Hypothyroidism 244.9 and Encounter for long-term current use of medication V58.69 [facility] [address] [place] [address] 11789- 3257 Feb, Diabetes type 2, uncontrolled 250.02 ; Depression 311 ; Encounter for long-term current use of medication V58.69 and Hypothyroidism 244.9 [facility] [address], [place] [address]- 7251 Feb, [facility] [address], [place] [address]- 6090 Jan, [facility] [address], [place] [address]- 0318 Oct, [facility] [address], [place] [address]- 2941 Oct, [facility] [address], [place] [address]- 7659 Oct, [facility] [address], [place] [address]- 4536 Sep, [facility] [address], [place] [address]- 0686 Sep, [facility] [id number] [place] [address]- 7419 Sep, [facility] [address] [id number] [place] [address]- 7674 Aug, [facility] [place] [facility] [address] [id number] [place] [address]- 2196 Aug, [facility] [address] [id number] [place] [address]- 6599 Jul, [facility] [place] [facility] [address] [id number] [place] [address]- 8315 Jul, [facility] [place] [facility] [address] [id number] [place] [address]- 4998 Jul, [facility] [place] [facility] [address] [id number] [place] [address]- 2500 Jul, [facility] [place] [facility] [address] [id number] [place] [address]- 5751 Jul, [facility] [address] [id number] [place] [address]- 5025 Jul, [facility] [place] [facility] [address] [id number] [place] [address]- 8002 Jul, [facility] [address] [id number] [place] [address]- 3824 Jul, [facility] [place] [facility] [address] [id number] [place] [address]- 6168 Jun, [facility] [place] [facility] [address] [id number] [place] [address]- 6710 Jun, [facility] [place] [facility] [address] [id number] [place] [address]- 1476 May, [facility] [place] [facility] [address] [id number] [place] [address]- 2546 May, [facility] [place] [facility] [address] [id number] [place] [address]- 4453 May, [facility] [place] [facility] [address] [id number] [place] [address]- 9448 Apr, [facility] [place] [facility] [address] [id number] [place] [address]- 5495 Apr, [facility] [place] [facility] [address] [id number] [place] [address]- 5894 Apr, [facility] [place] [facility] [address] [id number] [place] [address]- 2619 Apr, [facility] [place] [facility] [address] [id number] [place] [address]- 6825 Apr, [facility] [place] [facility] [address] [id number] [place] [address]- 3321 Apr, [facility] [place] [facility] [address] [id number] [place] [address]- 0701 Mar, [facility] [place] [facility] [address] [id number] [place] [address]- 9170 Mar, [facility] [place] [facility] [address] [id number] [place] [address]- 1831 Mar, [facility] [place] [facility] [address] [id number] [place] [address]- 2559 Mar, [facility] [place] [facility] [address] [id number] [place] [address]- 5757 Sep, [facility] [place] [facility] [address] [id number] [address]- 1490 Sep, [facility] [place] [facility] [address] [id number] [place] [address]- 6007 Sep, [facility] [place] [facility] [address] [id number] [place] [address]- 6104 Sep, [facility] [place] [facility] [address] [id number] [place] [address]- 6328 Aug, [facility] [place] [facility] [address] [id number] [place] [address]- 1401 Aug, [facility] [address] [id number] [place] [address]- 8396 Aug, [facility] [place] [facility] [address] [id number] [place] 3737 Aug, [facility] [place] [facility] [address] [id number] [place] [address]- 9424 Aug, [facility] [place] [facility] [address] [id number] [place] [address]- 3785 Aug, [facility] [place] [facility] [address] [id number] [place] 9022 Jul, [facility] [place] [facility] [address] [facility] [id number] [place] [address]- 1456 Jul, [facility] [place] [facility] [address] [facility] [id number] [place] [address]- 5140 Jul, [facility] [address] [facility] [id number] [place] [address]- 4908 Jul, [facility] [place] [facility] [address] [facility] [id number] [place] [address]- 9055 Jun, [facility] [address] [facility] [id number] [place] [address]- 9034 Jun, [facility] [place] [facility] [address] [id number] [place] [address]- 3176 May, [facility] [place] [facility] [address] [id number] [place] [address]- 7936 May, [facility] [place] [facility] [address] [id number] [place] [address]- 6271 Apr, [facility] [place] [facility] [address] [id number] [place] [address]- 5076 Apr, [facility] [place] [facility] [address] [id number] [place] [address]- 3728 Apr, [facility] [address] [id number] [place] [address]- 1722 Mar, [facility] [place] [facility] [address] [id number] [place] [address]- 1706 Mar, [facility] [place] [facility] [address] [id number] [place] [address]- 5395 Mar, [facility] [place] [facility] [address] [id number] [place] [address]- 7554 Mar, [facility] [place] [facility] [address] [id number] [place] [address]- 8870 Feb, [facility] [place] [facility] [address] [id number] [place] [address]- 6991 Jan, [facility] [place] [facility] [address] [id number] [place] [address]- 6291 Jan, [facility] [place] [facility] [address] [id number] [place] [address]- 6615 Jan, [facility] [place] [facility] [address] [id number] [place] [address]- 1529 Jan, [facility] [place] [facility] [address] [id number] [place] [address]- 5723 Dec, [facility] [place] [facility] [address] [id number] [place] [address]- 7989 Dec, [facility] [place] [facility] [address] [id number], [place] [address]- 5294 Dec, [facility] [place] [facility] [address] [id number] [place] [address]- 8818 Dec, [facility] [place] [facility] [address] [id number] [place] [address]- 7840 Dec, [facility] [place] [facility] [address] [id number], [place] [address]- 1902 Dec, [facility] [place] [facility] [address] [id number], [place] [address]- 6463 November, [facility] [address] [id number] [place] [address]- 9661 November, [facility] [address] [id number] [place] [address]- 9921 November, [facility] [address] [id number] [place] [address]- 3202 Oct, [facility] [place] [facility] [address] [id number] [place] [address]- 1099 Oct, [facility] [address] [id number] [place] [address]- 6357 Sep, [facility] [address] [facility] [id number] [place] [address]- 8567 Sep, [facility] [id number] [place] [address]- 3222 Sep, [facility] [place] [facility] [address] [facility] [id number] [place] [address]- 0530 Sep, [facility] [id number] [place] [address]- 8492 Sep, [facility] [address] [facility] [id number] [place] [address]- 6909 Aug, [facility] [address] [facility] [id number] [place] [address]- 1857 Aug, [facility] [place] [facility] [address] [facility] [id number] [place] [address]- 2877 Aug, [facility] [place] [facility] [address] [id number] [place] [address]- 1158 Aug, [facility] [place] [facility] [address] [facility] [id number] [place] [address]- 5830 Aug, [facility] [place] [facility] [address] [facility] [id number], [place] [address]- 5292 Jul, [facility] [place] [facility] [address] [id number] [place] [address]- 0608 Jul, [facility] [address] [id number] [place] [address]- 8497 Jun, [facility] [address] [id number] [place] [address]- 7298 Jun, [facility] [address] [id number] [place] [address]- 6828 Jun, [facility] [address] [id number] [place] [address]- 6564 Jun, [facility] [address] [id number] [place] [address]- 1454 Jun, [facility] [address] [id number] [place] [address]- 0796 Jun, [facility] [address] [id number] [place] [address]- 6727 Jun, [facility] [address] [id number] [place] [address]- 3167 Jun, [facility] [address] [id number] [place] [address]- 8871 Jun, [facility] [address] [id number] [place] [address]- 1626 May, [facility] [place] [facility] [address] [id number] [place] [address]- 7090 May, [facility] [place] [facility] [address] [id number] [place] [address]- 7846 May, [facility] [place] [facility] [address] [id number] [place] [address]- 3619 May, [facility] [place] [facility] [address] [id number] [place] [address]- 7542 May, [facility] [place] [facility] [address] [id number] [place] [address]- 2546 May, [facility] [place] [facility] [address] [id number] [place] [address]- 9767 May, [facility] [place] [facility] [address] [id number] [place] [address]- 7366 Apr, [facility] [place] [facility] [address] [id number] [place] [address]- 3726 Mar, [facility] [place] [facility] [address] [id number] [place] [address]- 2264 Mar, [facility] [place] [facility] [address] [id number] [place] [address]- 1328 Feb, [facility] [place] [facility] [address] [id number] [place] [address]- 8224 Feb, [facility] [place] [facility] [address] [id number] [place] [address]- 2817 Feb, [facility] [place] [facility] [address] [id number] [place] [address]- 5612 Feb, [facility] [place] [facility] [address] [id number] [place] [address]- 3259 Jan, [facility] [place] [facility] [address] [id number] [place] [address]- 4751 Jan, [facility] [place] [facility] [address] [id number] [place] [address]- 6617 Jan, [facility] [place] [facility] [address] [id number] [place] [address] 2548 Jan, [facility] [place] [facility] [address] [id number] [place] [address]- 9018 Dec, [facility] [place] [facility] [address] [id number] [place] [address]- 6709 Dec, [facility] [place] [facility] [address] [id number] [place] [address]- 2782 Dec, [facility] [place] [facility] [address], [place] [address]- 2546 15 Dec, 2011 [facility] [address], [place] [address]- 0666 Dec, [facility] [address], [place] [address]- 2546 Sep, [facility] [address], [place] [address]- 2546 Aug, [facility] [address], [place] [address]- [address] Jul, [facility] [id number] [place] [address] Jun, [facility] [address] [address] Jun, [facility] [address] [place] [address] Jun, [facility] [address] [address] Jun, [facility] [address] [address] May, [facility] [id number] [address] May, [facility] [id number] [address] Apr, [facility] [id number] [address] Jun, [facility] [address] [place] [address] Apr, IMMUNIZATIONS No Known Immunizations SOCIAL HISTORY Never Assessed REASON FOR VISIT Diabetes f/uJIMMY Mcginnis PLAN OF CARE Activity Details Follow Up 3 Months Reason:CHM/DM VITAL SIGNS Height 66 in 2017-03-15 Weight 251 lbs 2017-03-15 Temperature 97.6 degrees Fahrenheit 2017-03-15 Heart Rate 90 bpm 2017-03-15 Respiratory Rate 20 2017-03-15 BMI 40.51 kg/m2 2017-03-15 Blood pressure systolic 110 mmHg 2017-03-15 Blood pressure diastolic 70 mmHg 2017-03-15 MEDICATIONS Medication Instructions Dosage Frequency Start Date End Date Duration Status Metformin HCl 500 mg Orally 2 times a day TAKE ONE TABLET BY MOUTH TWICE DAILY WITH MEALS 12h 90 days Active Oxygen Active VESIcare 5 mg Orally Once a day TAKE ONE TABLET BY MOUTH ONCE DAILY 24h 90 days Active Flonase 50 mcg/actuation Nasally 2 spray(s) intranasally 2 times a day 1 sprays by Nasal route 2 times per day in each nostril Jun, Active GlipiZIDE 5 mg Orally 2 times a day 1 tablet 12h 90 days Active Loratadine 10 mg Orally Once a day 1 tablet 24h November, 90 days Active Pepcid 20 mg Orally 1 TAB orally 2 times a day 1 tablet by Oral route 2 times per day Sep, 90 days Active Furosemide 40 MG TAKE ONE TABLET BY MOUTH ONCE DAILY 90 Active Norvasc 10 mg Orally Once a day 1 tablet 1 time per day 24h 90 days Active Ferrous Sulfate 325 (65 Fe) MG Orally Once a day TAKE ONE TABLET BY MOUTH ONCE DAILY 24h 90 days Active Lipitor 10 mg Orally Once a day 1 tablet 24h 90 days Active Albuterol Sulfate 2.5 mg /3 mL (0.083 %) Inhalation 4 times a day 1 Each by Inhalation route 4 times a day PRN for cough and wheeze 6h Sep, 30 days Active Spiriva HandiHaler 18 MCG Inhalation Once a day 1 capsule 24h Feb, 12 months Active Ipratropium-Albuterol 0.5 mg-3 mg(2.5 mg base)/3 mL Inhalation Four times a day & prn up to 6 doses 3 ml Jul, 30 days Active Advair Diskus 250-50 MCG/DOSE Inhalation Twice a day INHALE ONE PUFF BY MOUTH TWICE DAILY APPROXIMATELY 12 HOURS APART 12h 12 months Active Famotidine 20 mg Orally Twice a day TAKE ONE TABLET BY MOUTH TWICE DAILY 12h 90 days Active Montelukast Sodium 10 mg Orally Once a day TAKE ONE TABLET BY MOUTH ONCE DAILY 24h 90 days Active Paroxetine HCl 40 mg Orally Once a day 1 tablet in the morning 24h 90 days Active Levothyroxine Sodium 150 MCG Orally Once a day TAKE ONE TABLET BY MOUTH IN THE MORNING ON AN EMPTY STOMACH WITH A FULL GLASS OF WATER 24h 90 days Active ProAir HFA 108 (90 Base) MCG/ACT Inhalation every 4 hrs 2 puffs as needed 4h 12 months Active Potassium Chloride Windy ER 10 MEQ TAKE ONE TABLET BY MOUTH ONCE DAILY 30 Active Lisinopril 2.5 MG Orally Once a day TAKE ONE TABLET BY MOUTH ONCE DAILY 24h 90 days Active Fish Oil 1000 MG Orally Once a day 2 capsule 24h 90 days Active Nystatin-Triamcinolone 855638-9.1 UNIT/GM Externally Twice a day apply thin layer to rash twice a day 12h 23 Dec, 2015 Active RESULTS Name Result Date Reference Range A1C (IN HOUSE) 2017-03-15 A1C IN HOUSE 6.5 4.3 - 5.6 % Previous A1c 6.7 Lot [id number] Exp date 12/07 MICROALBUMIN, URINE (IN HOUSE) 2017-03-15 MICROALBUMIN abnormal Lot # [id number] Exp date 11/18/17 Clarity clear Color yellow ALB 150mg/L CRE 300mg/dL A:C (IN HOUSE) 30-300mg/g Control Control Lot # Exp date LIPID PANEL 2017-03-15 Cholesterol, Total 189 100-199 Triglycerides 209 0-149 HDL Cholesterol 33 >39 VLDL Cholesterol Kai 42 5-40 LDL Cholesterol Calc 114 0-99 CMP 2017-03-15 Glucose, Serum 186 65-99 BUN 11 6-24 Creatinine, Serum 0.95 0.57-1.00 eGFR If NonAfricn Am 70 >59 eGFR If Africn Am 81 >59 BUN/Creatinine Ratio 12 9-23 Sodium, Serum 139 134-144 Potassium, Serum 4.2 3.5-5.2 Chloride, Serum 93 96-106 Carbon Dioxide, Total 28 18-29 Calcium, Serum 9.7 8.7-10.2 Protein, Total, Serum 7.3 6.0-8.5 Albumin, Serum 4.0 3.5-5.5 Globulin, Total 3.3 1.5-4.5 A/G Ratio 1.2 1.2-2.2 Bilirubin, Total 0.3 0.0-1.2 Alkaline Phosphatase, S 124 39-117 AST (SGOT) 19 0-40 ALT (SGPT) 19 0-32 CBC 2017-03-15 WBC 7.8 3.4-10.8 RBC 4.87 3.77-5.28 Hemoglobin 15.1 11.1-15.9 Hematocrit 46.3 34.0-46.6 MCV 95 79-97 MCH 31.0 26.6-33.0 MCHC 32.6 31.5-35.7 RDW 14.2 12.3-15.4 Platelets 263 150-379 Neutrophils 72 Lymphs 22 Monocytes 5 Eos 1 Basos 0 Neutrophils (Absolute) 5.5 1.4-7.0 Lymphs (Absolute) 1.7 0.7-3.1 Monocytes(Absolute) 0.4 0.1-0.9 Eos (Absolute) 0.1 0.0-0.4 Baso (Absolute) 0.0 0.0-0.2 Immature Granulocytes 0 Immature Grans (Abs) 0.0 0.0-0.1 THYROID ANALYZER 2017-03-15 TSH 11.750 0.450-4.500 T4,Free (Direct) 0.89 0.82-1.77 Thyroid Peroxidase (TPO) Ab 24 0-34 Interpretive Comment PROCEDURES Procedure Date Ordered Result Body Site ROUTINE VENIPUNCTURE 2017-03-15 N/A GLYCATED HEMOGLOBIN TEST Mar 15, 2017 LAB NOT BILLED BY [facility] Mar 15, 2017 MICROALBUMIN, SEMIQUANT Mar 15, 2017 INSTRUCTIONS MEDICATIONS ADMINISTERED No Known Medications MEDICAL (GENERAL) HISTORY Type Description Date Medical History hypertension Medical History Hypothyroidism Medical History chronic obstructive pulmonary disease (COPD) Medical History obesity Medical History type II diabetes Medical History insomnia Medical History sleep apnea Medical History oxygen dependent Medical History mood disorder Surgical History cholecystectomy
--- OUTSIDE RECORDS SUMMARY | 2017-11-25 17:31 | XMS REPORT ---
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
--- OUTSIDE RECORDS SUMMARY | 2017-11-25 17:31 | XMS REPORT ---
Author Author DOMINICK CHRISTINE Organization [employer] Address Unknown Phone Unavailable Care Team Providers Care Core Carrier Name Role Phone DOMINICK CHRISTINE CP Unavailable [...] Medications Results No Known Results Summary Purpose [facility] Submission
--- OUTSIDE RECORDS SUMMARY | 2017-11-25 17:31 | XMS REPORT ---
Author LESVIA Puri [facility] [employer] Address Unknown Phone Unavailable Care Team Providers Care Supervisor Nut Processing Name Role Phone LESVIA DELACRUZ CP Unavailable Allergies, Adverse Reactions, Alerts Substance Reaction Event Type Bactrim Info Not Available Drug Allergy Problems Problem Type Condition Code Onset Dates Condition Status Problem Mixed incontinence N39.46 Active Problem Microcytic anemia D50.9 Active Problem Essential hypertension I10 Active Problem Dependence on nocturnal oxygen therapy Z99.81 Active Problem Obstructive sleep apnea syndrome G47.33 Active Problem History of respiratory failure Z87.09 Active Problem Depression F32.9 Active Problem Insomnia G47.00 Active Problem Hypothyroidism E03.9 Active Problem Type 2 diabetes mellitus without complication E11.9 Active Assessment Type 2 diabetes mellitus without complication E11.9 Active Assessment Microcytic anemia D50.9 Active Assessment Mixed incontinence N39.46 Active Assessment Hypothyroidism E03.9 Active Assessment Essential hypertension I10 Active Assessment Encounter for long-term current use of medication Z79.899 Active Medications Medication Code System Code Instructions Start Date End Date Status Dosage Norvasc [facility] [address]-52 10 MG Orally Once a day October 15, 2014 1 tablet 1 time per day VESIcare [facility] [address]-40 5 MG Orally Once a day TAKE ONE TABLET BY MOUTH ONCE DAILY Furosemide [facility] [address]-09 40 MG TAKE ONE TABLET BY MOUTH ONCE DAILY Ipratropium-Albuterol [facility] [address]-43 0.5 mg-3 mg(2.5 mg base)/3 mL Inhalation Four times a day & prn up to 6 doses Jul 27, 2014 3 ml Ferrous Sulfate [facility] [address]-73 324 (65 Fe) MG Orally Once a day Mar 1 tablet GlipiZIDE ER [facility] [address]-84 5 MG Orally Once a day TAKE ONE TABLET BY MOUTH DAILY Lipitor [facility] 33048937011 10 MG Orally Once a day 1 tablet Metformin HCl [facility] [address]-08 500 MG Orally Twice a day. Appt needed for further refills 1 tablet with meals Levothyroxine Sodium [facility] [address]-82 100 MCG Orally Once a day 1 tablet Paroxetine HCl [facility] [address]-59 40 MG Orally Once a day TAKE ONE TABLET BY MOUTH DAILY (DO NOT CRUSH OR CHEW) Spiriva HandiHaler [facility] [address]-92 18 MCG Inhalation Once a day 1 capsule Albuterol Sulfate [facility] [address]-48 2.5 mg /3 mL (0.083 %) October 07, 2013 1 Each by Inhalation route every 4 hours for cough and wheeze PRN for wheezing or cough Pepcid [facility] [address]-81 20 mg 1 TAB orally 2 times a day October 01, 2013 1 tablet by Oral route 2 times per day Amlodipine Besylate [facility] 92428774170 10 MG TAKE ONE TABLET BY MOUTH DAILY Potassium Chloride Windy ER [facility] 27853030072 10 MEQ TAKE ONE TABLET BY MOUTH DAILY Advair Diskus [facility] 25833525945 250-50 MCG/DOSE INHALE ONE PUFF BY MOUTH TWICE DAILY APPROXIMATELY 12 HOURS APART ProAir HFA [facility] [address]-37 108 (90 Base) MCG/ACT Inhalation every 4 hrs 2 puffs as needed Fish Oil [facility] [address]-32 1000 MG Orally Once a day Mar 23, 2015 2 capsule Flonase [facility] [address]-00 50 mcg/actuation 2 spray(s) intranasally 2 times a day Jul 19, 2014 1 sprays by Nasal route 2 times per day in each nostril Procedures Procedure Coding System Code Date ASSAY THYROID STIM HORMONE CPT-4 18661 May 16, 2015 VENIPUNCT, ROUTINE* CPT-4 66919 May 16, 2015 COMPLETE CBC W/AUTO DIFF WBC CPT-4 68906 May 16, 2015 Office Visit, Est Pt., Level 3 CPT-4 62320 May 16, 2015 Vital Signs Date/Time: May 16, 2015 Temperature 98.5 F Weight 205.3 lbs Height 66 in BMI 33.13 Index Blood Pressure Diastolic 78 mmHg Blood Pressure Systolic 112 mmHg Cardiac Monitoring Heart Rate 80 bpm Results Name Result Date Reference Range Unit Abnormality Flag ROUTINE VENIPUNCTURE TSH Summary Purpose [employer]Works Submission
[2017-11-25] MEDS ORDERED: RT-ALBUTEROL/IPRATROPIUM 3 ML (DUONEB) VIAL ONE (17:32)
--- OUTSIDE RECORDS SUMMARY | 2017-11-25 17:32 | XMS REPORT | Continuity of Care Document ---
Author Author [facility] Organization [facility] Address Unknown Phone Unavailable Allergies Active Description Code Type Severity Reaction Onset Reported/Identified Relationship to Patient Clinical Status Yes NKANo Known Allergies NKA Miscellaneous Allergy Mild N/A 05/01/2009 Yes Bactrim Drug Allergy N/A N/A 01/16/2013 Medications There is no data. Problems Date Dx Coded Attending Type Code Diagnosis Diagnosed By 08/26/2008 BLAIR DO VÍCTOR K 401.1 ESSENTIAL HYPERTENSION BENIGN 08/26/2008 BLAIR DO, VÍCTOR K 599.0 Urinary Tract Infection 08/26/2008 BLAIR DO, VÍCTOR K 401.1 ESSENTIAL HYPERTENSION BENIGN 08/26/2008 BLAIR DO, VÍCTOR K 599.0 Urinary Tract Infection 08/26/2008 JOEL FALCON APRN R 401.1 ESSENTIAL HYPERTENSION BENIGN 08/26/2008 JOEL FALCON APRN R 599.0 Urinary Tract Infection 08/26/2008 401.1 ESSENTIAL HYPERTENSION BENIGN 08/26/2008 599.0 Urinary Tract Infection 08/26/2008 401.1 ESSENTIAL HYPERTENSION BENIGN 08/26/2008 599.0 Urinary Tract Infection 08/26/2008 401.1 ESSENTIAL HYPERTENSION BENIGN 08/26/2008 599.0 Urinary Tract Infection 08/26/2008 BLAIR DO, VÍCTOR K 401.1 ESSENTIAL HYPERTENSION BENIGN 08/26/2008 BLAIR DO, VÍCTOR K 599.0 Urinary Tract Infection 08/26/2008 BLAIR DO, VÍCTOR K 401.1 ESSENTIAL HYPERTENSION BENIGN 08/26/2008 BLAIR DO, VÍCTOR K 599.0 Urinary Tract Infection 08/26/2008 BLAIR DO, VÍCTOR K 401.1 ESSENTIAL HYPERTENSION BENIGN 08/26/2008 BLAIR DO, VÍCTOR K 599.0 Urinary Tract Infection 08/26/2008 BLAIR DO, VÍCTOR K 401.1 ESSENTIAL HYPERTENSION BENIGN 08/26/2008 BLAIR DO, VÍCTOR K 599.0 Urinary Tract Infection 08/26/2008 BLAIR DO, VÍCTOR K 401.1 ESSENTIAL HYPERTENSION BENIGN 08/26/2008 BLAIR DO, VÍCTOR K 599.0 Urinary Tract Infection 08/26/2008 BLAIR DO, VÍCTOR K 401.1 ESSENTIAL HYPERTENSION BENIGN 08/26/2008 BLAIR DO, VÍCTOR K 599.0 Urinary Tract Infection 08/26/2008 BLAIR DO, VÍCTOR K 401.1 ESSENTIAL HYPERTENSION BENIGN 08/26/2008 BLAIR DO, VÍCTOR K 599.0 Urinary Tract Infection 08/26/2008 BLAIR DO, VÍCTOR K 401.1 ESSENTIAL HYPERTENSION BENIGN 08/26/2008 BLAIR DO, VÍCTOR K 599.0 Urinary Tract Infection 08/26/2008 BEVERLY FALCON APRNRICIA R 401.1 ESSENTIAL HYPERTENSION BENIGN 08/26/2008 TERRIE MARMOLEJO JOEL R 599.0 Urinary Tract Infection 08/26/2008 BLAIR DO, VÍCTOR K 401.1 ESSENTIAL HYPERTENSION BENIGN 08/26/2008 BLAIR DO, VÍCTOR K 599.0 Urinary Tract Infection 08/26/2008 BLAIR DO, VÍCTOR K 401.1 ESSENTIAL HYPERTENSION BENIGN 08/26/2008 BLAIR DO, VÍCTOR K 599.0 Urinary Tract Infection 08/26/2008 BLAIR DO, VÍCTOR K 401.1 ESSENTIAL HYPERTENSION BENIGN 08/26/2008 BLAIR DO, VÍCTOR K 599.0 Urinary Tract Infection 08/26/2008 BLAIR DO, VÍCTOR K 401.1 ESSENTIAL HYPERTENSION BENIGN 08/26/2008 BLAIR DO, VÍCTOR K 599.0 Urinary Tract Infection 08/26/2008 BLAIR DO, VÍCTOR K 401.1 ESSENTIAL HYPERTENSION BENIGN 08/26/2008 BLAIR DO, VÍCTOR K 599.0 Urinary Tract Infection 04/18/2010 BLAIR DO, VÍCTOR K 244.9 HYPOTHYROIDISM 04/18/2010 BLAIR DO, VÍCTOR K 296.90 MOOD DISORDER 04/18/2010 BLAIR DO, VÍCTOR K 465.9 Upper Respiratory Infection 04/18/2010 BLAIR DO, VÍCTOR K 786.2 Cough 04/18/2010 BLAIR DO, VÍCTOR K 244.9 HYPOTHYROIDISM 04/18/2010 BLAIR DO, VÍCTOR K 296.90 MOOD DISORDER 04/18/2010 BLAIR DO, VÍCTOR K 465.9 Upper Respiratory Infection 04/18/2010 BLAIR DO, VÍCTOR K 786.2 Cough 04/18/2010 GARRETT FALCON APRNIA R 244.9 HYPOTHYROIDISM 04/18/2010 GARRETT FALCON APRNIA R 296.90 MOOD DISORDER 04/18/2010 TERRIE MARMOLEJO, JOEL R 465.9 Upper Respiratory Infection 04/18/2010 TERRIE MARMOLEJO, JOEL R 786.2 Cough 04/18/2010 244.9 HYPOTHYROIDISM 04/18/2010 296.90 MOOD DISORDER 04/18/2010 465.9 Upper Respiratory Infection 04/18/2010 786.2 Cough 04/18/2010 244.9 HYPOTHYROIDISM 04/18/2010 296.90 MOOD DISORDER 04/18/2010 465.9 Upper Respiratory Infection 04/18/2010 786.2 Cough 04/18/2010 244.9 HYPOTHYROIDISM 04/18/2010 296.90 MOOD DISORDER 04/18/2010 465.9 Upper Respiratory Infection 04/18/2010 786.2 Cough 04/18/2010 BLAIR DO, VÍCTOR K 244.9 HYPOTHYROIDISM 04/18/2010 BLAIR DO, VÍCTOR K 296.90 MOOD DISORDER 04/18/2010 BLAIR DO, VÍCTOR K 465.9 Upper Respiratory Infection 04/18/2010 BLAIR DO, VÍCTOR K 786.2 Cough 04/18/2010 BLAIR DO, VÍCTOR K 244.9 HYPOTHYROIDISM 04/18/2010 BLAIR DO, VÍCTOR K 296.90 MOOD DISORDER 04/18/2010 BLAIR DO, VÍCTOR K 465.9 Upper Respiratory Infection 04/18/2010 BLAIR DO, VÍCTOR K 786.2 Cough 04/18/2010 BLAIR DO, VÍCTOR K 244.9 HYPOTHYROIDISM 04/18/2010 BLAIR DO, VÍCTOR K 296.90 MOOD DISORDER 04/18/2010 BLAIR DO, VÍCTOR K 465.9 Upper Respiratory Infection 04/18/2010 BLAIR DO, VÍCTOR K 786.2 Cough 04/18/2010 BLAIR DO, VÍCTOR K 244.9 HYPOTHYROIDISM 04/18/2010 BLAIR DO, VÍCTOR K 296.90 MOOD DISORDER 04/18/2010 BLAIR DO, VÍCTOR K 465.9 Upper Respiratory Infection 04/18/2010 BLAIR DO, VÍCTOR K 786.2 Cough 04/18/2010 BLAIR DO, VÍCTOR K 244.9 HYPOTHYROIDISM 04/18/2010 BLAIR DO, VÍCTOR K 296.90 MOOD DISORDER 04/18/2010 BLAIR DO, VÍCTOR K 465.9 Upper Respiratory Infection 04/18/2010 BLAIR DO, VÍCTOR K 786.2 Cough 04/18/2010 BLAIR DO, VÍCTOR K 244.9 HYPOTHYROIDISM 04/18/2010 BLAIR DO, VÍCTOR K 296.90 MOOD DISORDER 04/18/2010 BLAIR DO, VÍCTOR K 465.9 Upper Respiratory Infection 04/18/2010 BLAIR DO, VÍCTOR K 786.2 Cough 04/18/2010 BLAIR DO, VÍCTOR K 244.9 HYPOTHYROIDISM 04/18/2010 BLAIR DO, VÍCTOR K 296.90 MOOD DISORDER 04/18/2010 BLAIR DO, VÍCTOR K 465.9 Upper Respiratory Infection 04/18/2010 BLAIR DO, VÍCTOR K 786.2 Cough 04/18/2010 BLAIR DO, VÍCTOR K 244.9 HYPOTHYROIDISM 04/18/2010 BLAIR DO, VÍCTOR K 296.90 MOOD DISORDER 04/18/2010 BLAIR DO, VÍCTOR K 465.9 Upper Respiratory Infection 04/18/2010 BLAIR DO, VÍCTOR K 786.2 Cough 04/18/2010 FALCON [employer]IV[employer] STRUCTURAL DESIGNER, JOEL R 244.9 HYPOTHYROIDISM 04/18/2010 FALCON [employer]IVIL STRU[employer]URAL DESIGNER, JOEL R 296.90 MOOD DISORDER 04/18/2010 TERRIE CIVIL STRUCTURAL DESIGNER, JOEL R 465.9 Upper Respiratory Infection 04/18/2010 TERRIE [employer]IV[employer]URAL DESIGNER JOEL R 786.2 Cough 04/18/2010 BLAIR DO, VÍCTOR K 244.9 HYPOTHYROIDISM 04/18/2010 BLAIR DO, VÍCTOR K 296.90 MOOD DISORDER 04/18/2010 BLAIR DO, VÍCTOR K 465.9 Upper Respiratory Infection 04/18/2010 BLAIR DO, VÍCTOR K 786.2 Cough 04/18/2010 BLAIR DO, VÍCTOR K 244.9 HYPOTHYROIDISM 04/18/2010 BLAIR DO, VÍCTOR K 296.90 MOOD DISORDER 04/18/2010 BLAIR DO, VÍCTOR K 465.9 Upper Respiratory Infection 04/18/2010 BLAIR DO, VÍCTOR K 786.2 Cough 04/18/2010 BLAIR DO, VÍCTOR K 244.9 HYPOTHYROIDISM 04/18/2010 BLAIR DO, VÍCTOR K 296.90 MOOD DISORDER 04/18/2010 BLAIR DO, VÍCTOR K 465.9 Upper Respiratory Infection 04/18/2010 BLAIR DO, VÍCTOR K 786.2 Cough 04/18/2010 BLAIR DO, VÍCTOR K 244.9 HYPOTHYROIDISM 04/18/2010 BLAIR DO, VÍCTOR K 296.90 MOOD DISORDER 04/18/2010 BLAIR DO, VÍCTOR K 465.9 Upper Respiratory Infection 04/18/2010 BLAIR DO, VÍCTOR K 786.2 Cough 04/18/2010 BLAIR DO, VÍCTOR K 244.9 HYPOTHYROIDISM 04/18/2010 BLAIR DO, VÍCTOR K 296.90 MOOD DISORDER 04/18/2010 JUANA BLAIR DOA K 465.9 Upper Respiratory Infection 04/18/2010 VÍCTOR BLAIR DO K 786.2 Cough 07/12/2010 Ot 244.9 07/12/2010 Ot 276.7 07/12/2010 Ot 305.1 07/12/2010 Ot 311 07/12/2010 Ot 401.9 07/12/2010 Ot 427.89 07/12/2010 Ot 486 07/12/2010 Ot 491.21 07/12/2010 Ot 518.81 07/12/2010 Ot 584.9 07/12/2010 Ot V45.79 07/26/2010 ROSSY NAIR VÍCTOR K 276.8 Hypopotassemia 07/26/2010 ROSSY DO VÍCTOR K 496 COPD 07/26/2010 ROSSY NAIR VÍCTOR K 585.9 CHRONIC KIDNEY DISEASE, UNSPECIFIED 07/26/2010 ROSSY NAIR VÍCTOR K 790.4 Abnormal Liver Function Test 07/26/2010 JUANA BLAIR DOA K 276.8 Hypopotassemia 07/26/2010 ROSSY NAIR VÍCTOR K 496 COPD 07/26/2010 ROSSY NAIR, VÍCTOR K 585.9 CHRONIC KIDNEY DISEASE, UNSPECIFIED 07/26/2010 ROSSY NAIR VÍCTOR K 790.4 Abnormal Liver Function Test 07/26/2010 JOEL FALCON APRN R 276.8 Hypopotassemia 07/26/2010 JOEL FALCON APRN R 496 COPD 07/26/2010 JOEL FALCON APRN R 585.9 CHRONIC KIDNEY DISEASE, UNSPECIFIED 07/26/2010 JOEL FALCON APRN R 790.4 Abnormal Liver Function Test 07/26/2010 276.8 Hypopotassemia 07/26/2010 496 COPD 07/26/2010 585.9 CHRONIC RENAL FAILURE 07/26/2010 790.4 Abnormal Liver Function Test 07/26/2010 276.8 Hypopotassemia 07/26/2010 496 COPD 07/26/2010 585.9 CHRONIC RENAL FAILURE 07/26/2010 790.4 Abnormal Liver Function Test 07/26/2010 276.8 Hypopotassemia 07/26/2010 496 COPD 07/26/2010 585.9 CHRONIC RENAL FAILURE 07/26/2010 790.4 Abnormal Liver Function Test 07/26/2010 BLAIR DO, VÍCTOR K 276.8 Hypopotassemia 07/26/2010 BLAIR DO, VÍCTOR K 496 COPD 07/26/2010 BLAIR DO, VÍCTOR K 585.9 CHRONIC RENAL FAILURE 07/26/2010 BLAIR DO, VÍCTOR K 790.4 Abnormal Liver Function Test 07/26/2010 BLAIR DO, VÍCTOR K 276.8 Hypopotassemia 07/26/2010 BLAIR DO, VÍCTOR K 496 COPD 07/26/2010 BLAIR DO, VÍCTOR K 585.9 CHRONIC RENAL FAILURE 07/26/2010 BLAIR DO, VÍCTOR K 790.4 Abnormal Liver Function Test 07/26/2010 BLAIR DO, VÍCTOR K 276.8 Hypopotassemia 07/26/2010 BLAIR DO, VÍCTOR K 496 COPD 07/26/2010 BLAIR DO, VÍCTOR K 585.9 CHRONIC RENAL FAILURE 07/26/2010 BLAIR DO, VÍCTOR K 790.4 Abnormal Liver Function Test 07/26/2010 BLAIR DO, VÍCTOR K 276.8 Hypopotassemia 07/26/2010 BLAIR DO, VÍCTOR K 496 COPD 07/26/2010 BLAIR DO, VÍCTOR K 585.9 CHRONIC RENAL FAILURE 07/26/2010 BLAIR DO, VÍCTOR K 790.4 Abnormal Liver Function Test 07/26/2010 BLAIR DO, VÍCTOR K 276.8 Hypopotassemia 07/26/2010 BLAIR DO, VÍCTOR K 496 COPD 07/26/2010 BLAIR DO, VÍCTOR K 585.9 CHRONIC RENAL FAILURE 07/26/2010 BLAIR DO, VÍCTOR K 790.4 Abnormal Liver Function Test 07/26/2010 BLAIR DO, VÍCTOR K 276.8 Hypopotassemia 07/26/2010 BLAIR DO, VÍCTOR K 496 COPD 07/26/2010 BLAIR DO, VÍCTOR K 585.9 CHRONIC RENAL FAILURE 07/26/2010 BLAIR DO, VÍCTOR K 790.4 Abnormal Liver Function Test 07/26/2010 BLAIR DO, VÍCTOR K 276.8 Hypopotassemia 07/26/2010 BLAIR DO, VÍCTOR K 496 COPD 07/26/2010 BLAIR DO, VÍCTOR K 585.9 CHRONIC RENAL FAILURE 07/26/2010 BLAIR DO, VÍCTOR K 790.4 Abnormal Liver Function Test 07/26/2010 BLAIR DO, VÍCTOR K 276.8 Hypopotassemia 07/26/2010 BLAIR DO, VÍCTOR K 496 COPD 07/26/2010 BLAIR DO, VÍCTOR K 585.9 CHRONIC RENAL FAILURE 07/26/2010 BLAIR DO, VÍCTOR K 790.4 Abnormal Liver Function Test 07/26/2010 FALCON [employer]IV[employer]URAL DESIGNER, JOEL R 276.8 Hypopotassemia 07/26/2010 FALCON CIVIL STRUCTURAL DESIGNER, JOEL R 496 COPD 07/26/2010 FALCON CIVIL STRUCTURAL DESIGNER, JOEL R 585.9 CHRONIC RENAL FAILURE 07/26/2010 FALCON CIVIL STRUCTURAL DESIGNER, JOEL R 790.4 Abnormal Liver Function Test 07/26/2010 BLAIR DO, VÍCTOR K 276.8 Hypopotassemia 07/26/2010 BLAIR DO, VÍCTOR K 496 COPD 07/26/2010 BLAIR DO, VÍCTOR K 585.9 CHRONIC RENAL FAILURE 07/26/2010 BLAIR DO, VÍCTOR K 790.4 Abnormal Liver Function Test 07/26/2010 BLAIR DO, VÍCTOR K 276.8 Hypopotassemia 07/26/2010 BLAIR DO, VÍCTOR K 496 COPD 07/26/2010 BLAIR DO, VÍCTOR K 585.9 CHRONIC RENAL FAILURE 07/26/2010 BLAIR DO, VÍCTOR K 790.4 Abnormal Liver Function Test 07/26/2010 BLAIR DO, VÍCTOR K 276.8 Hypopotassemia 07/26/2010 BLAIR DO, VÍCTOR K 496 COPD 07/26/2010 BLAIR DO, VÍCTOR K 585.9 CHRONIC RENAL FAILURE 07/26/2010 BLAIR DO, VÍCTOR K 790.4 Abnormal Liver Function Test 07/26/2010 BLAIR DO, VÍCTOR K 276.8 Hypopotassemia 07/26/2010 BLAIR DO, VÍCTOR K 496 COPD 07/26/2010 BLAIR DO, VÍCTOR K 585.9 CHRONIC RENAL FAILURE 07/26/2010 BLAIR DO, VÍCTOR K 790.4 Abnormal Liver Function Test 07/26/2010 LBAIR DO, VÍCTOR K 276.8 Hypopotassemia 07/26/2010 BLAIR DO, VÍCTOR K 496 COPD 07/26/2010 BLAIR DO, VÍCTOR K 585.9 CHRONIC RENAL FAILURE 07/26/2010 BLAIR DO, VÍCTOR K 790.4 Abnormal Liver Function Test 03/13/2011 BLAIR DO, VÍCTOR K 278.00 OBESITY UNSPECIFIED 03/13/2011 BLAIR DO, VÍCTOR K 477.9 Allergic Rhinitis Cause Unspecified 03/13/2011 BLAIR DO, VÍCTOR K 278.00 OBESITY UNSPECIFIED 03/13/2011 BLAIR DO, VÍCTOR K 477.9 Allergic Rhinitis Cause Unspecified 03/13/2011 GARRETT FALCON APRNIA R 278.00 OBESITY UNSPECIFIED 03/13/2011 GARRETT FALCON APRNIA R 477.9 Allergic Rhinitis Cause Unspecified 03/13/2011 278.00 OBESITY UNSPECIFIED 03/13/2011 477.9 Allergic Rhinitis Cause Unspecified 03/13/2011 278.00 OBESITY UNSPECIFIED 03/13/2011 477.9 Allergic Rhinitis Cause Unspecified 03/13/2011 278.00 OBESITY UNSPECIFIED 03/13/2011 477.9 Allergic Rhinitis Cause Unspecified 03/13/2011 BLAIR DO, VÍCTOR K 278.00 OBESITY UNSPECIFIED 03/13/2011 BLAIR DO, VÍCTOR K 477.9 Allergic Rhinitis Cause Unspecified 03/13/2011 BLAIR DO, VÍCTOR K 278.00 OBESITY UNSPECIFIED 03/13/2011 BLAIR DO, VÍCTOR K 477.9 Allergic Rhinitis Cause Unspecified 03/13/2011 BLAIR DO, VÍCTOR K 278.00 OBESITY UNSPECIFIED 03/13/2011 BLAIR DO, VÍCTOR K 477.9 Allergic Rhinitis Cause Unspecified 03/13/2011 BLAIR DO, VÍCTOR K 278.00 OBESITY UNSPECIFIED 03/13/2011 BLAIR DO, VÍCTOR K 477.9 Allergic Rhinitis Cause Unspecified 03/13/2011 BLAIR DO, VÍCTOR K 278.00 OBESITY UNSPECIFIED 03/13/2011 BLAIR DO, VÍCTOR K 477.9 Allergic Rhinitis Cause Unspecified 03/13/2011 BLAIR DO, VÍCTOR K 278.00 OBESITY UNSPECIFIED 03/13/2011 BLAIR DO, VÍCTOR K 477.9 Allergic Rhinitis Cause Unspecified 03/13/2011 BLAIR DO, VÍCTOR K 278.00 OBESITY UNSPECIFIED 03/13/2011 BLAIR DO, VÍCTOR K 477.9 Allergic Rhinitis Cause Unspecified 03/13/2011 BLAIR DO, VÍCTOR K 278.00 OBESITY UNSPECIFIED 03/13/2011 BLAIR DO, VÍCTOR K 477.9 Allergic Rhinitis Cause Unspecified 03/13/2011 GARRETT FALCON APRNIA R 278.00 OBESITY UNSPECIFIED 03/13/2011 GARRETT FALCON APRNIA R 477.9 Allergic Rhinitis Cause Unspecified 03/13/2011 BLAIR DO, VÍCTOR K 278.00 OBESITY UNSPECIFIED 03/13/2011 BLAIR DO, VÍCTOR K 477.9 Allergic Rhinitis Cause Unspecified 03/13/2011 BLAIR DO, VÍCTOR K 278.00 OBESITY UNSPECIFIED 03/13/2011 BLAIR DO, VÍCTOR K 477.9 Allergic Rhinitis Cause Unspecified 03/13/2011 BLAIR DO, VÍCTOR K 278.00 OBESITY UNSPECIFIED 03/13/2011 BLAIR DO, VÍCTOR K 477.9 Allergic Rhinitis Cause Unspecified 03/13/2011 BLAIR DO, VÍCTOR K 278.00 OBESITY UNSPECIFIED 03/13/2011 BLAIR DO, VÍCTOR K 477.9 Allergic Rhinitis Cause Unspecified 03/13/2011 BLAIR DO, VÍCTOR K 278.00 OBESITY UNSPECIFIED 03/13/2011 BLAIR DO, VÍCTOR K 477.9 Allergic Rhinitis Cause Unspecified 06/25/2011 BLAIR DO, VÍCTOR K 461.9 Sinusitis Acute 06/25/2011 BLAIR DO, VÍCTOR K V65.42 COUNSELING - SMOKING CESSATION 06/25/2011 BLAIR DO, VÍCTOR K 461.9 Sinusitis Acute 06/25/2011 BLAIR DO, VÍCTOR K V65.42 COUNSELING - SMOKING CESSATION 06/25/2011 GARRETT FALCON APRNIA R 461.9 Sinusitis Acute 06/25/2011 GARRETT FALCON APRNIA R V65.42 COUNSELING - SMOKING CESSATION 06/25/2011 461.9 Sinusitis Acute 06/25/2011 V65.42 COUNSELING - SMOKING CESSATION 06/25/2011 461.9 Sinusitis Acute 06/25/2011 V65.42 COUNSELING - SMOKING CESSATION 06/25/2011 461.9 Sinusitis Acute 06/25/2011 V65.42 COUNSELING - SMOKING CESSATION 06/25/2011 BLAIR DO, VÍCTOR K 461.9 Sinusitis Acute 06/25/2011 BLAIR DO, VÍCTOR K V65.42 COUNSELING - SMOKING CESSATION 06/25/2011 BLAIR DO, VÍCTOR K 461.9 Sinusitis Acute 06/25/2011 BLAIR DO, VÍCTOR K V65.42 COUNSELING - SMOKING CESSATION 06/25/2011 BLAIR DO, VÍCTOR K 461.9 Sinusitis Acute 06/25/2011 BLAIR DO, VÍCTOR K V65.42 COUNSELING - SMOKING CESSATION 06/25/2011 BLAIR DO, VÍCTOR K 461.9 Sinusitis Acute 06/25/2011 BLAIR DO, VÍCTOR K V65.42 COUNSELING - SMOKING CESSATION 06/25/2011 BLAIR DO, VÍCTOR K 461.9 Sinusitis Acute 06/25/2011 BLAIR DO, VÍCTOR K V65.42 COUNSELING - SMOKING CESSATION 06/25/2011 BLAIR DO, VÍCTOR K 461.9 Sinusitis Acute 06/25/2011 BLAIR DO, VÍCTOR K V65.42 COUNSELING - SMOKING CESSATION 06/25/2011 BLAIR DO, VÍCTOR K 461.9 Sinusitis Acute 06/25/2011 BLAIR DO, VÍCTOR K V65.42 COUNSELING - SMOKING CESSATION 06/25/2011 BLAIR DO, VÍCTOR K 461.9 Sinusitis Acute 06/25/2011 BLAIR DO, VÍCTOR K V65.42 COUNSELING - SMOKING CESSATION 06/25/2011 JOEL FALCON APRN R 461.9 Sinusitis Acute 06/25/2011 JOEL FALCON APRN R V65.42 COUNSELING - SMOKING CESSATION 06/25/2011 BLAIR DO, VÍCTOR K 461.9 Sinusitis Acute 06/25/2011 BLAIR DO, VÍCTOR K V65.42 COUNSELING - SMOKING CESSATION 06/25/2011 BLAIR DO, VÍCTOR K 461.9 Sinusitis Acute 06/25/2011 BLAIR DO, VÍCTOR K V65.42 COUNSELING - SMOKING CESSATION 06/25/2011 BLAIR DO, VÍCTOR K 461.9 Sinusitis Acute 06/25/2011 BLAIR DO, VÍCTOR K V65.42 COUNSELING - SMOKING CESSATION 06/25/2011 BLAIR DO, VÍCTOR K 461.9 Sinusitis Acute 06/25/2011 BLAIR DO, VÍCTOR K V65.42 COUNSELING - SMOKING CESSATION 06/25/2011 BLAIR DO, VÍCTOR K 461.9 Sinusitis Acute 06/25/2011 BLAIR DO, VÍCTOR K V65.42 COUNSELING - SMOKING CESSATION 07/03/2011 BLAIR DO, VÍCTOR K 305.1 NONDEPENDENT TOBACCO USE DISORDER 07/03/2011 BLAIR DO, VÍCTOR K 305.1 NONDEPENDENT TOBACCO USE DISORDER 07/03/2011 GARRETT FALCON APRNIA R 305.1 NONDEPENDENT TOBACCO USE DISORDER 07/03/2011 305.1 NONDEPENDENT TOBACCO USE DISORDER 07/03/2011 305.1 NONDEPENDENT TOBACCO USE DISORDER 07/03/2011 305.1 NONDEPENDENT TOBACCO USE DISORDER 07/03/2011 BLAIR DO, VÍCTOR K 305.1 NONDEPENDENT TOBACCO USE DISORDER 07/03/2011 BLAIR DO, VÍCTOR K 305.1 NONDEPENDENT TOBACCO USE DISORDER 07/03/2011 BLAIR DO, VÍCTOR K 305.1 NONDEPENDENT TOBACCO USE DISORDER 07/03/2011 BLAIR DO, VÍCTOR K 305.1 NONDEPENDENT TOBACCO USE DISORDER 07/03/2011 BLAIR DO, VÍCTOR K 305.1 NONDEPENDENT TOBACCO USE DISORDER 07/03/2011 BLAIR DO, VÍCTOR K 305.1 NONDEPENDENT TOBACCO USE DISORDER 07/03/2011 BLAIR DO, VÍCTOR K 305.1 NONDEPENDENT TOBACCO USE DISORDER 07/03/2011 BLAIR DO, VÍCTOR K 305.1 NONDEPENDENT TOBACCO USE DISORDER 07/03/2011 JOEL FALCON APRN R 305.1 NONDEPENDENT TOBACCO USE DISORDER 07/03/2011 BLAIR DO, VÍCTOR K 305.1 NONDEPENDENT TOBACCO USE DISORDER 07/03/2011 BLAIR DO, VÍCTOR K 305.1 NONDEPENDENT TOBACCO USE DISORDER 07/03/2011 BLAIR DO, VÍCTOR K 305.1 NONDEPENDENT TOBACCO USE DISORDER 07/03/2011 BLAIR DO, VÍCTOR K 305.1 NONDEPENDENT TOBACCO USE DISORDER 07/03/2011 BLAIR DO, VÍCTOR K 305.1 NONDEPENDENT TOBACCO USE DISORDER 07/06/2011 BLAIR DO, VÍCTOR K 250.02 DIABETES II UNCONTROLLED (UNCOMPLICATED) 07/06/2011 BLAIR DO, VÍCTOR K 272.4 HYPERLIPIDEMIA 07/06/2011 BLAIR DO, VÍCTOR K 250.02 DIABETES II UNCONTROLLED (UNCOMPLICATED) 07/06/2011 BLAIR DO, VÍCTOR K 272.4 HYPERLIPIDEMIA 07/06/2011 JOEL FALCON APRN R 250.02 DIABETES II UNCONTROLLED (UNCOMPLICATED) 07/06/2011 JOEL FALCON APRN R 272.4 HYPERLIPIDEMIA 07/06/2011 250.02 DIABETES MELLITUS TYPE 2 - UNCOMPLICATED, UNCONTROLLED 07/06/2011 272.4 HYPERLIPIDEMIA 07/06/2011 250.02 DIABETES MELLITUS TYPE 2 - UNCOMPLICATED, UNCONTROLLED 07/06/2011 272.4 HYPERLIPIDEMIA 07/06/2011 250.02 DIABETES MELLITUS TYPE 2 - UNCOMPLICATED, UNCONTROLLED 07/06/2011 272.4 HYPERLIPIDEMIA 07/06/2011 BLAIR DO, VÍCTOR K 250.02 DIABETES MELLITUS TYPE 2 - UNCOMPLICATED, UNCONTROLLED 07/06/2011 BLAIR DO, VÍCTOR K 272.4 HYPERLIPIDEMIA 07/06/2011 BLAIR DO, VÍCTOR K 250.02 DIABETES MELLITUS TYPE 2 - UNCOMPLICATED, UNCONTROLLED 07/06/2011 BLAIR DO, VÍCTOR K 272.4 HYPERLIPIDEMIA 07/06/2011 BLAIR DO, VÍCTOR K 250.02 DIABETES MELLITUS TYPE 2 - UNCOMPLICATED, UNCONTROLLED 07/06/2011 BLAIR DO, VÍCTOR K 272.4 HYPERLIPIDEMIA 07/06/2011 BLAIR DO, VÍCTOR K 250.02 DIABETES MELLITUS TYPE 2 - UNCOMPLICATED, UNCONTROLLED 07/06/2011 BLAIR DO, VÍCTOR K 272.4 HYPERLIPIDEMIA 07/06/2011 BLAIR DO, VÍCTOR K 250.02 DIABETES MELLITUS TYPE 2 - UNCOMPLICATED, UNCONTROLLED 07/06/2011 BLAIR DO, VÍCTOR K 272.4 HYPERLIPIDEMIA 07/06/2011 BLAIR DO, VÍCTOR K 250.02 DIABETES MELLITUS TYPE 2 - UNCOMPLICATED, UNCONTROLLED 07/06/2011 BLAIR DO, VÍCTOR K 272.4 HYPERLIPIDEMIA 07/06/2011 BLAIR DO, VÍCTOR K 250.02 DIABETES MELLITUS TYPE 2 - UNCOMPLICATED, UNCONTROLLED 07/06/2011 BLAIR DO, VÍCTOR K 272.4 HYPERLIPIDEMIA 07/06/2011 BLAIR DO, VÍCTOR K 250.02 DIABETES MELLITUS TYPE 2 - UNCOMPLICATED, UNCONTROLLED 07/06/2011 BLAIR DO, VÍCTOR K 272.4 HYPERLIPIDEMIA 07/06/2011 TERRIE MARMOLEJO, JOEL R 250.02 DIABETES MELLITUS TYPE 2 - UNCOMPLICATED, UNCONTROLLED 07/06/2011 TERRIE MARMOLEJO, JOEL R 272.4 HYPERLIPIDEMIA 07/06/2011 BLAIR DO, VÍCTOR K 250.02 DIABETES MELLITUS TYPE 2 - UNCOMPLICATED, UNCONTROLLED 07/06/2011 BLAIR DO, VÍCTOR K 272.4 HYPERLIPIDEMIA 07/06/2011 BLAIR DO, VÍCTOR K 250.02 DIABETES MELLITUS TYPE 2 - UNCOMPLICATED, UNCONTROLLED 07/06/2011 BLAIR DO, VÍCTOR K 272.4 HYPERLIPIDEMIA 07/06/2011 BLAIR DO, VÍCTOR K 250.02 DIABETES MELLITUS TYPE 2 - UNCOMPLICATED, UNCONTROLLED 07/06/2011 BLAIR DO, VÍCTOR K 272.4 HYPERLIPIDEMIA 07/06/2011 BLAIR DO, VÍCTOR K 250.02 DIABETES MELLITUS TYPE 2 - UNCOMPLICATED, UNCONTROLLED 07/06/2011 BLAIR DO, VÍCTOR K 272.4 HYPERLIPIDEMIA 07/06/2011 BLAIR DO, VÍCTOR K 250.02 DIABETES MELLITUS TYPE 2 - UNCOMPLICATED, UNCONTROLLED 07/06/2011 BLAIR DO, VÍCTOR K 272.4 HYPERLIPIDEMIA 2012 BEVERLY FALCON APRNRICIA R 465.9 UPPER RESPIRATORY INFECTION 2012 465.9 UPPER RESPIRATORY INFECTION 2012 465.9 UPPER RESPIRATORY INFECTION 2012 465.9 UPPER RESPIRATORY INFECTION 2012 BLAIR DO, VÍCTOR K 465.9 UPPER RESPIRATORY INFECTION 2012 BLAIR DO, VÍCTOR K 465.9 UPPER RESPIRATORY INFECTION 2012 BLAIR DO, VÍCTOR K 465.9 UPPER RESPIRATORY INFECTION 2012 BLAIR DO, VÍCTOR K 465.9 UPPER RESPIRATORY INFECTION 2012 BLAIR DO, VÍCTOR K 465.9 UPPER RESPIRATORY INFECTION 2012 BLIAR DO, VÍCTOR K 465.9 UPPER RESPIRATORY INFECTION 2012 BLAIR DO, VÍCTOR K 465.9 UPPER RESPIRATORY INFECTION 2012 BLAIR DO, VÍCTOR K 465.9 UPPER RESPIRATORY INFECTION 2012 JOEL FALCON APRN R 465.9 UPPER RESPIRATORY INFECTION 2012 BLAIR DO, VÍCTOR K 465.9 UPPER RESPIRATORY INFECTION 2012 BLAIR DO, VÍCTOR K 465.9 UPPER RESPIRATORY INFECTION 2012 BLAIR DO, VÍCTOR K 465.9 UPPER RESPIRATORY INFECTION 2012 BLAIR DO, VÍCTOR K 465.9 UPPER RESPIRATORY INFECTION 2012 BLAIR DO, VÍCTOR K 465.9 UPPER RESPIRATORY INFECTION 10/06/2012 780.52 insomnia 10/06/2012 780.52 insomnia 10/06/2012 780.52 insomnia 10/06/2012 BLAIR DO, VÍCTOR K 780.52 insomnia 10/06/2012 BLAIR DO, VÍCTOR K 780.52 insomnia 10/06/2012 BLAIR DO, VÍCTOR K 780.52 insomnia 10/06/2012 BLAIR DO, VÍCTOR K 780.52 insomnia 10/06/2012 BLAIR DO, VÍCTOR K 780.52 insomnia 10/06/2012 BLAIR DO, VÍCTOR K 780.52 insomnia 10/06/2012 BLAIR DO, VÍCTOR K 780.52 insomnia 10/06/2012 BLAIR DO, VÍCTOR K 780.52 insomnia 10/06/2012 JOEL FALCON APRN R 780.52 insomnia 10/06/2012 BLAIR DO, VÍCTOR K 780.52 insomnia 10/06/2012 BLAIR DO, VÍCTOR K 780.52 insomnia 10/06/2012 BLAIR DO, VÍCTOR K 780.52 insomnia 10/06/2012 BLAIR DO, VÍCTOR K 780.52 insomnia 10/06/2012 BLAIR DO, VÍCTOR K 780.52 insomnia 01/07/2013 BRITTANI DO, DEWAYNE K Ot 682.3 01/07/2013 BRITTANI DO, DEWAYNE K Ot 709.9 01/07/2013 BRITTANI DO, DEWAYNE K Ot V03.7 01/08/2013 914.4 INSECT BITE 01/08/2013 BLAIR DO, VÍCTOR K 914.4 INSECT BITE 01/08/2013 BLAIR DO, VÍCTOR K 914.4 INSECT BITE 01/08/2013 BLAIR DO, VÍCTOR K 914.4 INSECT BITE 01/08/2013 BLAIR DO, VÍCTOR K 914.4 INSECT BITE 01/08/2013 BLAIR DO, VÍCTOR K 914.4 INSECT BITE 01/08/2013 BLAIR DO, VÍCTOR K 914.4 INSECT BITE 01/08/2013 BLAIR DO, VÍCTOR K 914.4 INSECT BITE 01/08/2013 BLAIR DO, VÍCTOR K 914.4 INSECT BITE 01/08/2013 JOEL FALCON APRN 914.4 INSECT BITE 01/08/2013 BLAIR DO, VÍCTOR K 914.4 INSECT BITE 01/08/2013 BLAIR DO, VÍCTOR K 914.4 INSECT BITE 01/08/2013 BLAIR DO, VÍCTOR K 914.4 INSECT BITE 01/08/2013 BLAIR DO, VÍCTOR K 914.4 INSECT BITE 01/08/2013 BLAIR DO, VÍCTOR K 914.4 INSECT BITE 04/01/2013 BLAIR DO, VÍCTOR K V15.09 PERSONAL HISTORY OF OTHER ALLERGY OTHER THAN TO MEDICINAL AGENTS 04/01/2013 BLAIR DO, VÍCTOR K V15.81 PERSONAL HISTORY OF NONCOMPLIANCE WITH MEDICAL TREATMENT PRESENTING HAZARDS TO HEALTH 04/01/2013 BLAIR DO, VÍCTOR K V15.09 PERSONAL HISTORY OF OTHER ALLERGY OTHER THAN TO MEDICINAL AGENTS 04/01/2013 BLAIR DO, VÍCTOR K V15.81 PERSONAL HISTORY OF NONCOMPLIANCE WITH MEDICAL TREATMENT PRESENTING HAZARDS TO HEALTH 04/01/2013 BLAIR DO, VÍCTOR K V15.09 PERSONAL HISTORY OF OTHER ALLERGY OTHER THAN TO MEDICINAL AGENTS 04/01/2013 BLAIR DO, VÍCTOR K V15.81 PERSONAL HISTORY OF NONCOMPLIANCE WITH MEDICAL TREATMENT PRESENTING HAZARDS TO HEALTH 04/01/2013 BLAIR DO, VÍCTOR K V15.09 PERSONAL HISTORY OF OTHER ALLERGY OTHER THAN TO MEDICINAL AGENTS 04/01/2013 JUANA BLAIR DOA K V15.81 PERSONAL HISTORY OF NONCOMPLIANCE WITH MEDICAL TREATMENT PRESENTING HAZARDS TO HEALTH 04/01/2013 ROSSY NAIR VÍCTOR K V15.09 PERSONAL HISTORY OF OTHER ALLERGY OTHER THAN TO MEDICINAL AGENTS 04/01/2013 ROSSY DO VÍCTOR K V15.81 PERSONAL HISTORY OF NONCOMPLIANCE WITH MEDICAL TREATMENT PRESENTING HAZARDS TO HEALTH 04/01/2013 ROSSY NAIR VÍCTOR K V15.09 PERSONAL HISTORY OF OTHER ALLERGY OTHER THAN TO MEDICINAL AGENTS 04/01/2013 ROSSY NAIR VÍCTOR K V15.81 PERSONAL HISTORY OF NONCOMPLIANCE WITH MEDICAL TREATMENT PRESENTING HAZARDS TO HEALTH 04/01/2013 ROSSY NAIR VÍCTOR K V15.09 PERSONAL HISTORY OF OTHER ALLERGY OTHER THAN TO MEDICINAL AGENTS 04/01/2013 JUANA BLAIR DOA K V15.81 PERSONAL HISTORY OF NONCOMPLIANCE WITH MEDICAL TREATMENT PRESENTING HAZARDS TO HEALTH 04/01/2013 ROSSY NAIR VÍCTOR K V15.09 PERSONAL HISTORY OF OTHER ALLERGY OTHER THAN TO MEDICINAL AGENTS 04/01/2013 JUANA BLAIR DOA K V15.81 PERSONAL HISTORY OF NONCOMPLIANCE WITH MEDICAL TREATMENT PRESENTING HAZARDS TO HEALTH 04/01/2013 JOEL FALCON APRN V15.09 PERSONAL HISTORY OF OTHER ALLERGY OTHER THAN TO MEDICINAL AGENTS 04/01/2013 JOEL FALCON APRN V15.81 PERSONAL HISTORY OF NONCOMPLIANCE WITH MEDICAL TREATMENT PRESENTING HAZARDS TO HEALTH 04/01/2013 ROSSY NAIR VÍCTOR K V15.09 PERSONAL HISTORY OF OTHER ALLERGY OTHER THAN TO MEDICINAL AGENTS 04/01/2013 JUANA BLAIR DOA K V15.81 PERSONAL HISTORY OF NONCOMPLIANCE WITH MEDICAL TREATMENT PRESENTING HAZARDS TO HEALTH 04/01/2013 ROSSY NAIR VÍCTOR K V15.09 PERSONAL HISTORY OF OTHER ALLERGY OTHER THAN TO MEDICINAL AGENTS 04/01/2013 JUANA BALIR DOA K V15.81 PERSONAL HISTORY OF NONCOMPLIANCE WITH MEDICAL TREATMENT PRESENTING HAZARDS TO HEALTH 04/01/2013 ROSSY NAIR VÍCTOR K V15.09 PERSONAL HISTORY OF OTHER ALLERGY OTHER THAN TO MEDICINAL AGENTS 04/01/2013 ROSSY NAIR VÍCTOR K V15.81 PERSONAL HISTORY OF NONCOMPLIANCE WITH MEDICAL TREATMENT PRESENTING HAZARDS TO HEALTH 04/01/2013 ROSSY NAIR VÍCTOR K V15.09 PERSONAL HISTORY OF OTHER ALLERGY OTHER THAN TO MEDICINAL AGENTS 04/01/2013 JUANA BLAIR DOA K V15.81 PERSONAL HISTORY OF NONCOMPLIANCE WITH MEDICAL TREATMENT PRESENTING HAZARDS TO HEALTH 04/01/2013 BLAIR DO, VÍCTOR K V15.09 PERSONAL HISTORY OF OTHER ALLERGY OTHER THAN TO MEDICINAL AGENTS 04/01/2013 BLAIR DO, VÍCTOR K V15.81 PERSONAL HISTORY OF NONCOMPLIANCE WITH MEDICAL TREATMENT PRESENTING HAZARDS TO HEALTH 10/01/2013 BLAIR DO, VÍCTOR K 729.82 CRAMP OF LIMB 10/01/2013 BLAIR DO, VÍCTOR K 729.82 CRAMP OF LIMB 10/01/2013 BLAIR DO, VÍCTOR K 729.82 CRAMP OF LIMB 10/01/2013 BLAIR DO, VÍCTOR K 729.82 CRAMP OF LIMB 10/01/2013 BLAIR DO, VÍCTOR K 729.82 CRAMP OF LIMB 10/01/2013 BLAIR DO, VÍCTOR K 729.82 CRAMP OF LIMB 10/01/2013 JOEL FALCON APRN R 729.82 CRAMP OF LIMB 10/01/2013 BLAIR DO, VÍCTOR K 729.82 CRAMP OF LIMB 10/01/2013 BLAIR DO, VÍCTOR K 729.82 CRAMP OF LIMB 10/01/2013 BLAIR DO, VÍCTOR K 729.82 CRAMP OF LIMB 10/01/2013 BLAIR DO, VÍCTOR K 729.82 CRAMP OF LIMB 10/01/2013 BLAIR DO, VÍCTOR K 729.82 CRAMP OF LIMB 07/26/2014 JOEL FALCON APRN R 461.9 SINUSITIS ACUTE 07/26/2014 BLAIR DO, VÍCTOR K 461.9 SINUSITIS ACUTE 07/26/2014 BLAIR DO, VÍCTOR K 461.9 SINUSITIS ACUTE 07/26/2014 BLAIR DO, VÍCTOR K 461.9 SINUSITIS ACUTE 07/26/2014 BLAIR DO, VÍCTOR K 461.9 SINUSITIS ACUTE 07/26/2014 BLAIR DO, VÍCTOR K 461.9 SINUSITIS ACUTE 07/27/2014 BLAIR DO, VÍCTOR K 491.21 OBSTRUCTIVE CHRONIC BRONCHITIS WITH (ACUTE) EXACERBATION 07/27/2014 BLAIR DO VÍCTOR K 518.83 CHRONIC RESPIRATORY FAILURE 07/27/2014 BLAIR DO, VÍCTOR K V46.2 DEPENDENCE ON SUPPLEMENTAL OXYGEN 07/27/2014 BLAIR DO VÍCTOR K 491.21 OBSTRUCTIVE CHRONIC BRONCHITIS WITH (ACUTE) EXACERBATION 07/27/2014 BLAIR DO, VÍCTOR K 518.83 CHRONIC RESPIRATORY FAILURE 07/27/2014 BLAIR DO, VÍCTOR K V46.2 DEPENDENCE ON SUPPLEMENTAL OXYGEN 07/27/2014 BLAIR DO, VÍCTOR K 491.21 OBSTRUCTIVE CHRONIC BRONCHITIS WITH (ACUTE) EXACERBATION 07/27/2014 BLAIR DO, VÍCTOR K 518.83 CHRONIC RESPIRATORY FAILURE 07/27/2014 BLAIR DO, VÍCTOR K V46.2 DEPENDENCE ON SUPPLEMENTAL OXYGEN 07/27/2014 BLAIR DO, VÍCTOR K 491.21 OBSTRUCTIVE CHRONIC BRONCHITIS WITH (ACUTE) EXACERBATION 07/27/2014 BLAIR DO, VÍCTOR K 518.83 CHRONIC RESPIRATORY FAILURE 07/27/2014 BLAIR DO, VÍCTOR K V46.2 DEPENDENCE ON SUPPLEMENTAL OXYGEN 07/28/2014 BLAIR DO, VÍCTOR K 491.21 OBSTRUCTIVE CHRONIC BRONCHITIS WITH (ACUTE) EXACERBATION 07/28/2014 BLAIR DO, VÍCTOR K V46.2 DEPENDENCE ON SUPPLEMENTAL OXYGEN 07/28/2014 BLAIR DO, VÍCTOR K 491.21 OBSTRUCTIVE CHRONIC BRONCHITIS WITH (ACUTE) EXACERBATION 07/28/2014 BLAIR DO, VÍCTOR K V46.2 DEPENDENCE ON SUPPLEMENTAL OXYGEN 07/28/2014 BLAIR DO, VÍCTOR K 491.21 OBSTRUCTIVE CHRONIC BRONCHITIS WITH (ACUTE) EXACERBATION 07/28/2014 BLAIR DO, VÍCTOR K V46.2 DEPENDENCE ON SUPPLEMENTAL OXYGEN 07/28/2014 BLAIR DO, VÍCTOR K 491.21 OBSTRUCTIVE CHRONIC BRONCHITIS WITH (ACUTE) EXACERBATION 07/28/2014 BLAIR DO, VÍCTOR K V46.2 DEPENDENCE ON SUPPLEMENTAL OXYGEN 07/30/2014 BLAIR DO, VÍCTOR K 486 PNEUMONIA ORGANISM UNSPECIFIED 07/30/2014 BLAIR DO, VÍCTOR K 780.57 UNSPECIFIED SLEEP APNEA 07/30/2014 BLAIR DO, VÍCTOR K 486 PNEUMONIA ORGANISM UNSPECIFIED 07/30/2014 BLAIR DO, VÍCTOR K 780.57 UNSPECIFIED SLEEP APNEA 07/30/2014 BLAIR DO, VÍCTOR K 486 PNEUMONIA ORGANISM UNSPECIFIED 07/30/2014 BLAIR DO, VÍCTOR K 780.57 UNSPECIFIED SLEEP APNEA 08/30/2014 BLAIR DO VÍCTOR K V04.81 FLU SHOT 08/30/2014 BLAIR DO, VÍCTOR K V04.81 FLU SHOT 08/30/2014 Ot 786.05 09/13/2014 Ot 786.05 09/13/2014 Ot 786.05 10/18/2014 Ot 278.00 10/18/2014 Ot 296.90 10/18/2014 Ot 305.1 10/18/2014 Ot 496 10/18/2014 Ot 780.54 10/18/2014 Ot 786.09 11/05/2014 ROSSY NAIR VÍCTOR Gabrielle 788.30 URINARY INCONTINENCE UNSPECIFIED Procedures Code Description [place] [address] ROUTINE VENIPUNCTURE 06/09/2012 14404 A1C (IN-HOUSE) 06/09/2012 58152 CMP 06/09/2012 36075 TSH 06/09/2012 53707 CBC 06/09/2012 06370 ROUTINE VENIPUNCTURE 10/06/2012 30100 A1C (IN-HOUSE) 10/06/2012 11092 CMP 10/06/2012 99257 TSH 10/06/2012 46952 ROUTINE VENIPUNCTURE 04/01/2013 19853 A1C (IN-HOUSE) 04/01/2013 88194 LIPID PANEL 04/01/2013 53479 CMP 04/01/2013 9451593 GFR CALC (RESULT ONLY) 04/01/2013 38685 TSH 04/01/2013 79336 ROUTINE VENIPUNCTURE 10/01/2013 86399 CMP 10/01/2013 22677 LIPID PANEL 10/01/2013 98011 TSH 10/01/2013 19796 A1C (IN-HOUSE) 10/01/2013 94536 MICRO ALBUMIN-IN HOUSE 10/01/2013 47124 ROUTINE VENIPUNCTURE 05/03/2014 81053 CMP 05/03/2014 03463 LIPID PANEL 05/03/2014 18693 TSH 05/03/2014 07871 A1C (IN-HOUSE) 05/03/2014 2028F FOOT EXAM PERFORMED 05/03/2014 02891 OXIMETRY 07/26/2014 42655 XRAY CHEST 2 VIEW 07/28/2014 86584 OXIMETRY 07/28/2014 52428 OXIMETRY 07/30/2014 PULMONARY WESLEY ALMAGUER 07/30/2014 22917 TSH 11/05/2014 99805 ROUTINE VENIPUNCTURE 11/05/2014 03497 MICRO ALBUMIN-IN HOUSE 11/05/2014 89077 A1C (IN-HOUSE) 11/05/2014 1345663 GFR CALC (RESULT ONLY) 11/05/2014 39631 CMP 11/05/2014 Results Test Result Range Thyroid [place] Profile - 06/08/16 16:25 TSH 3.060 uIU/mL 0.450-4.500 CBC With Differential/Platelet - 03/15/17 09:41 WBC 7.8 x10E3/uL 3.4-10.8 RBC 4.87 x10E6/uL 3.77-5.28 Hemoglobin 15.1 g/dL 11.1-15.9 Hematocrit 46.3 % 34.0-46.6 MCV 95 fL 79-97 MCH 31.0 pg 26.6-33.0 MCHC 32.6 g/dL 31.5-35.7 RDW 14.2 % 12.3-15.4 Platelets 263 x10E3/uL 150-379 Neutrophils 72 % Lymphs 22 % Monocytes 5 % Eos 1 % Basos 0 % Neutrophils (Absolute) 5.5 x10E3/uL 1.4-7.0 Lymphs (Absolute) 1.7 x10E3/uL 0.7-3.1 Monocytes(Absolute) 0.4 x10E3/uL 0.1-0.9 Eos (Absolute) 0.1 x10E3/uL 0.0-0.4 Baso (Absolute) 0.0 x10E3/uL 0.0-0.2 Immature Granulocytes 0 % Immature Grans (Abs) 0.0 x10E3/uL 0.0-0.1 Comp. Metabolic Panel (14) - 03/15/17 09:41 Glucose, Serum 186 mg/dL 65-99 BUN 11 mg/dL 6-24 Creatinine, Serum 0.95 mg/dL 0.57-1.00 eGFR If NonAfricn Am 70 mL/min/1.73 >59 eGFR If Africn Am 81 mL/min/1.73 >59 BUN/Creatinine Ratio 12 9-23 Sodium, Serum 139 mmol/L 134-144 Potassium, Serum 4.2 mmol/L 3.5-5.2 Chloride, Serum 93 mmol/L 96-106 Carbon Dioxide, Total 28 mmol/L 18-29 Calcium, Serum 9.7 mg/dL 8.7-10.2 Protein, Total, Serum 7.3 g/dL 6.0-8.5 Albumin, Serum 4.0 g/dL 3.5-5.5 Globulin, Total 3.3 g/dL 1.5-4.5 A/G Ratio 1.2 1.2-2.2 Bilirubin, Total 0.3 mg/dL 0.0-1.2 Alkaline Phosphatase, S 124 IU/L 39-117 AST (SGOT) 19 IU/L 0-40 ALT (SGPT) 19 IU/L 0-32 Lipid Panel - 03/15/17 09:41 Cholesterol, Total 189 mg/dL 100-199 Triglycerides 209 mg/dL 0-149 HDL Cholesterol 33 mg/dL >39 VLDL Cholesterol Kai 42 mg/dL 5-40 LDL Cholesterol Calc 114 mg/dL 0-99 Thyroid [place] Profile - 03/15/17 09:41 TSH 11.750 uIU/mL 0.450-4.500 Thyroxine (T4) Free, Direct, S - 03/15/17 09:41 T4,Free (Direct) 0.89 ng/dL 0.82-1.77 Thyroid Peroxidase (TPO) Ab - 03/15/17 09:41 Thyroid Peroxidase (TPO) Ab 24 IU/mL 0-34 Interpretive Comment Comment CMP - 03/15/17 09:41 Glucose, Serum 186 mg/dL 65-99 BUN 11 mg/dL 6-24 Creatinine, Serum 0.95 mg/dL 0.57-1.00 eGFR If NonAfricn Am 70 mL/min/1.73 >59 eGFR If Africn Am 81 mL/min/1.73 >59 BUN/Creatinine Ratio 12 9-23 Sodium, Serum 139 mmol/L 134-144 Potassium, Serum 4.2 mmol/L 3.5-5.2 Chloride, Serum 93 mmol/L 96-106 Carbon Dioxide, Total 28 mmol/L 18-29 Calcium, Serum 9.7 mg/dL 8.7-10.2 Protein, Total, Serum 7.3 g/dL 6.0-8.5 Albumin, Serum 4.0 g/dL 3.5-5.5 Globulin, Total 3.3 g/dL 1.5-4.5 A/G Ratio 1.2 1.2-2.2 Bilirubin, Total 0.3 mg/dL 0.0-1.2 Alkaline Phosphatase, S 124 IU/L 39-117 AST (SGOT) 19 IU/L 0-40 ALT (SGPT) 19 IU/L 0-32 CBC - 03/15/17 09:41 WBC 7.8 x10E3/uL 3.4-10.8 RBC 4.87 x10E6/uL 3.77-5.28 Hemoglobin 15.1 g/dL 11.1-15.9 Hematocrit 46.3 % 34.0-46.6 MCV 95 fL 79-97 MCH 31.0 pg 26.6-33.0 MCHC 32.6 g/dL 31.5-35.7 RDW 14.2 % 12.3-15.4 Platelets 263 x10E3/uL 150-379 Neutrophils 72 % NRG Lymphs 22 % NRG Monocytes 5 % NRG Eos 1 % NRG Basos 0 % NRG Neutrophils (Absolute) 5.5 x10E3/uL 1.4-7.0 Lymphs (Absolute) 1.7 x10E3/uL 0.7-3.1 Monocytes(Absolute) 0.4 x10E3/uL 0.1-0.9 Eos (Absolute) 0.1 x10E3/uL 0.0-0.4 Baso (Absolute) 0.0 x10E3/uL 0.0-0.2 Immature Granulocytes 0 % NRG Immature Grans (Abs) 0.0 x10E3/uL 0.0-0.1 THYROID ANALYZER - 03/15/17 09:41 TSH 11.750 uIU/mL 0.450-4.500 T4,Free (Direct) 0.89 ng/dL 0.82-1.77 Thyroid Peroxidase (TPO) Ab 24 IU/mL 0-34 Interpretive Comment NRG TSH - 05/28/17 17:04 TSH 1.56 mIU/L NRG Encounters ACCT No. Visit Date/Time Discharge Status Pt. Type Provider Facility Loc./Unit Complaint [id number] 01/07/2013 20:31:00 01/07/2013 21:45:00 DIS Emergency DEWAYNE PETER DO [facility] ER [id number] 10/01/2014 14:22:00 Document Registration [id number] 08/15/2010 15:49:00 Document Registration [id number] 07/09/2010 16:25:00 Document Registration [id number] 06/09/2016 13:05:00 Document Registration [id number] 03/18/2017 19:06:00 Document Registration [id number] 11/05/2014 13:47:00 11/05/2014 23:59:59 CLS Outpatient VÍCTOR BLAIR DO [id number] 08/30/2014 12:04:00 08/30/2014 23:59:59 CLS Outpatient BLAIR DO, VÍCTOR Anthony [id number] 07/30/2014 13:48:00 07/30/2014 23:59:59 CLS Outpatient BLAIR DO, VÍCTOR Anthony [id number] 07/28/2014 13:42:00 07/28/2014 23:59:59 CLS Outpatient BLAIR DO, VÍCTOR Anthony [id number] 07/27/2014 17:00:00 07/27/2014 23:59:59 CLS Outpatient BLAIR DO, VÍCTOR Anthony [id number] 07/26/2014 13:37:00 07/26/2014 23:59:59 CLS Outpatient JOEL FALCON APRN [id number] 05/28/2014 00:00:00 05/28/2014 23:59:59 CLS Outpatient BLAIR DO, VCÍTOR Anthony [id number] 05/03/2014 11:11:00 05/03/2014 23:59:59 CLS Outpatient BLAIR DO, VÍCTOR Anthony [id number] 05/03/2014 11:11:00 05/03/2014 23:59:59 CLS Outpatient BLAIR DO, VÍCTOR Anthony [id number] 04/27/2014 00:00:00 04/27/2014 23:59:59 CLS Outpatient BLAIR DO, VÍCTOR Anthony [id number] 10/01/2013 09:12:00 10/01/2013 23:59:59 CLS Outpatient BLAIR DO, VÍCTOR Anthony [id number] 10/01/2013 09:12:00 10/01/2013 23:59:59 CLS Outpatient BLAIR DOVÍCTOR [id number] 04/01/2013 10:06:00 04/01/2013 23:59:59 CLS Outpatient BLAIR DO, VÍCTOR Anthony [id number] 04/01/2013 10:06:00 04/01/2013 23:59:59 CLS Outpatient BLAIR DO, VÍCTOR Anthony [id number] 10/06/2012 16:10:00 10/06/2012 23:59:59 CLS Outpatient [id number] 2012 14:58:00 2012 23:59:59 CLS Outpatient TERRIE LIMAJOEL Mckeon [id number] 06/09/2012 16:46:00 06/09/2012 23:59:59 CLS Outpatient BLAIR DOVÍCTOR [id number] 02/07/2012 14:20:00 02/07/2012 23:59:59 CLS Outpatient BLAIR DO, VÍCTOR K [id number] 01/08/2013 13:43:00 Document Registration [id number] 10/06/2012 16:10:00 Document Registration [id number] 08/10/2017 16:30:00 08/10/2017 23:59:59 [facility] Outpatient DOMINICK CHRISTINE CHCKEREN [facility] [id number] 05/28/2017 16:20:00 Document Registration [id number] 03/15/2017 09:20:00 Document Registration
[2017-11-25] MEDS ORDERED: RT-ALBUTEROL/IPRATROPIUM 3 ML (DUONEB) VIAL INH ONE (17:45)
[2017-11-25] MEDS ORDERED: methylPREDNISolone 125 MG (Solu-MEDROL) VIAL IVP ONE (17:45)
--- NOTE | 2017-11-25 17:45 | ED Respiratory ---
General Chief Complaint: Respiratory Problems Stated Complaint: SINUSES CAUSING SOB,LOW ON OXYGEN Source: patient Exam Limitations: no limitations History of Present Illness Date Seen by Provider: November 25, 2017 Time Seen by Provider: 17:43 Initial Comments To ER per private vehicle from [facility] where she reported with shortness of breath. Upon arrival to ER patient states that she's had some shortness of breath secondary to nasal congestion, increasing cough nonproductive for the past 2-3 days. She believes this secondary to allergies. She denies fevers or chills. She does have COPD and wears oxygen at 3 L per nasal cannula [id number]. Timing/Duration: getting worse Severity: moderate Associated Symptoms: No fever/chills; nasal congestion, nasal drainage, shortness of breath Allergies and Home Medications Allergies Coded Allergies: No Known Allergies (Unverified Allergy, Mild, 05/01/09) Home Medications Levothyroxine Sodium 137 Mcg Tablet, 137 MCG PO DAILY, (Reported) Lisinopril 20 Mg Tablet, 20 MG PO DAILY, (Reported) Paroxetine Hcl 20 Mg Tablet, 20 MG PO DAILY, (Reported) Penicillin V Potassium 250 Mg Tablet, 500 MG PO BID, (Reported) Trimethoprim/Sulfamethoxazole 1 Ea Tablet, 1 EA PO BID FOR INFECTION Prescribed by: DEWAYNE PETER on 01/07/132116 Patient Home Medication List Home Medication List Reviewed: Yes Review of Systems Constitutional: see HPI; No chills, No fever EENTM: see HPI, nose congestion Respiratory: see HPI, cough, short of breath Genitourinary: no symptoms reported Musculoskeletal: no symptoms reported Skin: no symptoms reported Psychiatric/Neurological: No Symptoms Reported Past Bcrivtd-Urnvom-Dmwknx Hx Patient Social History Recent Foreign Travel: No Contact w/Someone Who Travel: No Past Medical History Hypothyroidsim, Diabetes, Non-Insulin dep Anxiety, Depression Physical Exam Vital Signs Vital Signs - First Documented 11/25/17 11/25/17 17:38 17:45 Temp 98.0 Pulse 104 Resp 24 B/P (MAP) 148/89 (108) Pulse Ox 94 O2 Flow Rate 40.00 Capillary Refill : General Appearance: WD/WN, moderate distress, obese HEENT: PERRL/EOMI, normal ENT inspection Neck: non-tender, full range of motion Respiratory: no respiratory distress, no accessory muscle use, decreased breath sounds, wheezing Cardiovascular: no murmur, tachycardia Gastrointestinal: normal bowel sounds, non tender, soft Neurologic/Psychiatric: alert, normal mood/affect, oriented x 3 Skin: normal color, warm/dry Focused Exam Lactate Level 11/25/17 17:30: Lactic Acid Level 2.59*H Lactic Acid Level Laboratory Tests Test 11/25/17 17:30 Lactic Acid Level 2.59 MMOL/L (0.50-2.00) *H Progress/Results/Core Measures Suspected Sepsis SIRS Temperature: Pulse: 104 Respiratory Rate: 24 Laboratory Tests 11/25/17 17:30: White Blood Count 9.0 Blood Pressure 148 /89 Mean: 11/25/17 17:30: Lactic Acid Level 2.59*H Laboratory Tests 11/25/17 17:30: Creatinine 0.91, Platelet Count 206, Total Bilirubin 0.4 Results/Orders Lab Results Laboratory Tests Test 11/25/17 17:30 11/25/17 17:44 Range/Units White Blood Count 9.0 4.3-11.0 10^3/uL Red Blood Count 4.66 4.35-5.85 10^6/uL Hemoglobin 14.6 11.5-16.0 G/DL Hematocrit 46 35-52 % Mean Corpuscular Volume 98 80-99 FL Mean Corpuscular Hemoglobin 31 25-34 PG Mean Corpuscular Hemoglobin Concent 32 32-36 G/DL Red Cell Distribution Width 14.7 H 10.0-14.5 % Platelet Count 206 130-400 10^3/uL Mean Platelet Volume 9.2 7.4-10.4 FL Neutrophils (%) (Auto) 74 42-75 % Lymphocytes (%) (Auto) 20 12-44 % Monocytes (%) (Auto) 5 0-12 % Eosinophils (%) (Auto) 1 0-10 % Basophils (%) (Auto) 0 0-10 % Neutrophils # (Auto) 6.7 1.8-7.8 X 10^3 Lymphocytes # (Auto) 1.8 1.0-4.0 X 10^3 Monocytes # (Auto) 0.5 0.0-1.0 X 10^3 Eosinophils # (Auto) 0.1 0.0-0.3 10^3/uL Basophils # (Auto) 0.0 0.0-0.1 10^3/uL Sodium Level 138 135-145 MMOL/L Potassium Level 4.2 3.6-5.0 MMOL/L Chloride Level 96 L 98-107 MMOL/L Carbon Dioxide Level 32 21-32 MMOL/L Anion Gap 10 5-14 MMOL/L Blood Urea Nitrogen 8 7-18 MG/DL Creatinine 0.91 0.60-1.30 MG/DL Estimat Glomerular Filtration Rate > 60 BUN/Creatinine Ratio 9 Glucose Level 232 H 70-105 MG/DL Lactic Acid Level 2.59 *H 0.50-2.00 MMOL/L Calcium Level 10.3 H 8.5-10.1 MG/DL Total Bilirubin 0.4 0.1-1.0 MG/DL Aspartate Amino Transf (AST/SGOT) 11 5-34 U/L Alanine Aminotransferase (ALT/SGPT) 9 0-55 U/L Alkaline Phosphatase 115 40-136 U/L Troponin I < 0.30 <0.30 NG/ML Total Protein 8.2 6.4-8.2 GM/DL Albumin 3.9 3.2-4.5 GM/DL Blood Gas Puncture Site RT RADIAL Blood Gas Patient Temperature 98.0 Arterial Blood pH 7.37 7.37-7.43 Arterial Blood Partial Pressure CO2 62 H 35-45 MMHG Arterial Blood Partial Pressure O2 86 79-93 MMHG Arterial Blood HCO3 35 H 23-27 MMOL/L Arterial Blood Total CO2 37.0 H 21.0-31.0 MMOL/L Arterial Blood Oxygen Saturation 99 94-100 % Arterial Blood Base Excess 9.6 H -2.5-2.5 MMOL/L Da Test YES-POS Blood Gas Ventilator Setting NO Blood Gas Inspired Oxygen 40% Micro Results Microbiology 11/25/17 Influenza Types A,B Antigen (BUSHRA) - Final, Complete My Orders Orders - ELINA BOLDEN FORENSIC INVESTIGATOR Cbc With Automated Diff (11/25/17 17:41) Comprehensive Metabolic Panel (11/25/17 17:41) Blood Culture (11/25/17 17:41) Lactic Acid Analyzer (11/25/17 17:41) Chest 1 View, Ap/Pa Only (11/25/17 17:41) Ekg Tracing (11/25/17 17:41) Troponin I (11/25/17 17:41) Albuterol/Ipra Inhalation Soln (Duoneb I (11/25/17 17:45) Methylprednisolone Sod Succ (Solu-Medrol (11/25/17 17:45) Svn Small Volume Nebulizer (11/25/17 17:41) Bipap (Bilevel) Set Up (11/25/17 17:41) Arterial Blood Gas (11/25/17 17:46) Arterial Blood Draw (11/25/17 17:44) Influenza A And B Antigens (11/25/17 18:03) Medications Given in ED Current Medications Medications Dose Ordered Sig/Jeana Route Start Time Stop Time Status Last Admin Dose Admin Albuterol/ Ipratropium 3 ml STK-MED ONCE .ROUTE 11/25/17 17:32 11/25/17 17:36 DC 11/25/17 17:38 3 ML Methylprednisolone Sodium Succinate 125 mg ONCE ONCE IVP 11/25/17 17:45 11/25/17 17:46 DC 11/25/17 18:00 125 MG Vital Signs/I&O 11/25/17 11/25/17 11/25/17 17:38 17:45 18:11 Temp 98.0 98.0 Pulse 104 114 114 Resp 24 28 28 B/P (MAP) 148/89 (108) 148/89 Pulse Ox 94 73 73 O2 Flow Rate 40.00 40.00 Capillary Refill : Departure Communication (Admissions) Time/Spoke to Admitting Phy: 18:[address] Villanueva. She agrees to admit. 1744- upon arrival to ER she is in moderate respiratory distress. Tripod position, short of breath, cyanotic and diaphoretic. Initial oxygen saturation is 67% with good waveform on the fingertips. This was then exchanged for an adhesive SPO2 monitor attached to the forehead which showed SPO2 of 80% on 4 L oxygen per nasal cannula (her baseline is 3 L but quick care increased her to 4 L prior to sending to ER). This been slowly increased to 92% on 5 L per nasal cannula with rest. Respiratory therapy was called, DuoNeb initiated and started on BiPAP. Initial Bipap settings 12/5 40% fio2. Impression Primary Impression: COPD exacerbation Additional Impression: Respiratory distress Disposition: ADMITTED INPATIENT Condition: Critical Admissions Decision to Admit Reason: Admit from ER (General) Decision to Admit/Date: November 25, 2017 Time/Decision to Admit Time: 17:45 Departure-Patient Inst. Referrals: [facility] (PCP/Family) Primary Care Physician ELINA BOLDEN FORENSIC INVESTIGATOR November 25, 2017 17:45
[2017-11-25 17:54] LABS: ABG BASE EXCESS 9.6 MMOL/L (-2.5-2.5); ABG OXYGEN SATURATION 99 % (94-100); ABG PCO2 62 MMHG (35-45); ABG PH 7.37 (7.37-7.43); ABG PO2 86 MMHG (79-93)
[2017-11-25 17:54] LABS: BASOPHILS % (AUTO) 0 % (0-10); EOSINOPHILS # (AUTO) 0.1 10^3/uL (0.0-0.3); EOSINOPHILS % (AUTO) 1 % (0-10); HEMATOCRIT 46 % (35-52); HEMOGLOBIN 14.6 G/DL (11.5-16.0); LYMPHOCYTES # (AUTO) 1.8 X 10^3 (1.0-4.0); LYMPHOCYTES % (AUTO) 20 % (12-44); MEAN CORPUSCULAR HEMOGLOBIN 31 PG (25-34); MEAN CORPUSCULAR HGB CONC 32 G/DL (32-36); MEAN CORPUSCULAR VOLUME 98 FL (80-99); MEAN PLATELET VOLUME 9.2 FL (7.4-10.4); MONOCYTES # (AUTO) 0.5 X 10^3 (0.0-1.0); MONOCYTES % (AUTO) 5 % (0-12); NEUTROPHILS # (AUTO) 6.7 X 10^3 (1.8-7.8); NEUTROPHILS % (AUTO) 74 % (42-75); PLATELET COUNT 206 10^3/uL (130-400); RED BLOOD COUNT 4.66 10^6/uL (4.35-5.85); RED CELL DISTRIBUTION WIDTH 14.7 % (10.0-14.5)
[2017-11-25 17:56] LABS: ALLENS TEST YES-POS; INSPIRED O2 40%; VENTILATOR NO
[2017-11-25 18:04] LABS: ALANINE AMINOTRANSFERASE 9 U/L (0-55); ALBUMIN 3.9 GM/DL (3.2-4.5); ALKALINE PHOSPHATASE 115 U/L (40-136); BILIRUBIN,TOTAL 0.4 MG/DL (0.1-1.0); BUN/CREATININE RATIO 9; CALCIUM 10.3 MG/DL (8.5-10.1); CARBON DIOXIDE 32 MMOL/L (21-32); CHLORIDE 96 MMOL/L (98-107); CREATININE SERUM 0.91 MG/DL (0.60-1.30); GFR ESTIMATED > 60; GLUCOSE 232 MG/DL (70-105); POTASSIUM 4.2 MMOL/L (3.6-5.0); SODIUM 138 MMOL/L (135-145); TOTAL PROTEIN 8.2 GM/DL (6.4-8.2)
--- NOTE | 2017-11-25 18:29 | Diagnostic Imaging Report ---
INDICATION: Shortness of breath and congestion. COMPARISON: 07/12/2010. FINDINGS: There is air trapping and COPD as a chronic finding. Some increased prominence of the alisha bilaterally, greater right, likely reflect increased vascular congestion superimposed but followup as appropriate. No rishi edema or focal pneumonia. No effusion or pneumothorax. IMPRESSION: Upper limits heart size slightly increased. Likely some increased vascular congestion superimposed accounts for hilar fullness in the interim. Radiographic followup however recommended. Otherwise unremarkable. Dictated by: Dictated on workstation # [id number]
--- OUTSIDE RECORDS SUMMARY | 2017-11-25 18:55 | XMS REPORT | Continuity of Care Document ---
Author Author [facility] Organization [facility] Address Unknown Phone Unavailable Allergies Active [...] DO, VÍCTOR K 786.2 Cough 04/18/2010 [employer]CON [employer], JOEL R 244.9 HYPOTHYROIDISM 04/18/2010 F[employer]CON [employer], JOEL R 296.90 MOOD DISORDER 04/18/2010 TERRIE [employer], JOEL R 465.9 Upper Respiratory Infection 04/18/2010 [employer] JOEL R 786.2 Cough 04/18/2010 BLAIR DO, [...] 584.9 07/12/2010 Ot V45.79 07/26/2010 ROSSY NAIR VÍCOTR K 276.8 Hypopotassemia 07/26/2010 ROSSY DO VÍCTOR [...] 790.4 Abnormal Liver Function Test 07/26/2010 [employer], JOEL R 276.8 Hypopotassemia 07/26/2010 [employer], JOEL R 496 COPD 07/26/2010 [employer], JOEL R 585.9 CHRONIC RENAL FAILURE 07/26/2010 F[employer], JOEL R 790.4 Abnormal Liver Function Test [...] DO, VÍCTOR K 461.9 Sinusitis Acute 06/25/2011 LBAIR DO, VÍCTOR K V65.42 COUNSELING - SMOKING [...] R 461.9 SINUSITIS ACUTE 07/26/2014 BLAIR DO, VÍCTRO K 461.9 SINUSITIS ACUTE 07/26/2014 BLAIR DO, [...] Procedures Code Description [place] [address] ROUTINE VENIPUNCTURE 06/09/2012 93360 A1C (IN-HOUSE) 06/09/2012 57829 CMP 06/09/2012 04986 TSH 06/09/2012 77828 CBC 06/09/2012 18893 ROUTINE VENIPUNCTURE 10/06/2012 84080 A1C (IN-HOUSE) 10/06/2012 93077 CMP 10/06/2012 27641 TSH 10/06/2012 72336 ROUTINE VENIPUNCTURE 04/01/2013 19297 A1C (IN-HOUSE) 04/01/2013 21082 LIPID PANEL 04/01/2013 29299 CMP 04/01/2013 [id number] GFR CALC (RESULT ONLY) 04/01/2013 74257 TSH 04/01/2013 73230 ROUTINE VENIPUNCTURE 10/01/2013 42127 CMP 10/01/2013 73516 LIPID PANEL 10/01/2013 72310 TSH 10/01/2013 02561 A1C (IN-HOUSE) 10/01/2013 62976 MICRO ALBUMIN-IN HOUSE 10/01/2013 79779 ROUTINE VENIPUNCTURE 05/03/2014 78895 CMP 05/03/2014 82336 LIPID PANEL 05/03/2014 51265 TSH 05/03/2014 83314 A1C (IN-HOUSE) 05/03/2014 2028F FOOT EXAM PERFORMED 05/03/2014 29809 OXIMETRY 07/26/2014 85674 XRAY CHEST 2 VIEW 07/28/2014 59970 OXIMETRY 07/28/2014 13717 OXIMETRY 07/30/2014 PULMONARY WESLEY ALMAGUER 07/30/2014 62563 TSH 11/05/2014 05132 ROUTINE VENIPUNCTURE 11/05/2014 76400 MICRO ALBUMIN-IN HOUSE 11/05/2014 88427 A1C (IN-HOUSE) 11/05/2014 [id number] GFR CALC (RESULT ONLY) 11/05/2014 23690 CMP 11/05/2014 Results Test Result Range Thyroid [place] Profile - 06/08/16 16:25 TSH 3.060 uIU/mL [...] LDL Cholesterol Calc 114 mg/dL 0-99 Thyroid [place] Profile - 03/15/17 09:41 TSH 11.750 uIU/mL [...] Status Pt. Type Provider Facility Loc./Unit Complaint [id number] 01/07/2013 20:31:00 01/07/2013 21:45:00 DIS Emergency DEWAYNE PETER DO [facility] ER [id number] 10/01/2014 14:22:00 Document Registration [id number] 08/15/2010 15:49:00 Document Registration [id number] 07/09/2010 16:25:00 Document Registration [id number] 06/09/2016 13:05:00 Document Registration [id number] 03/18/2017 19:06:00 Document Registration [id number] 11/05/2014 13:47:00 11/05/2014 23:59:59 CLS Outpatient VÍCTOR BLAIR DO [id number] 08/30/2014 12:04:00 08/30/2014 23:59:59 CLS Outpatient BLAIR DO, VÍCTOR Anthony [id number] 07/30/2014 13:48:00 07/30/2014 23:59:59 CLS Outpatient BLAIR DO, VÍCTOR Anthony [id number] 07/28/2014 13:42:00 07/28/2014 23:59:59 CLS Outpatient BLAIR DO, VÍCTOR Anthony [id number] 07/27/2014 17:00:00 07/27/2014 23:59:59 CLS Outpatient BLAIR DO, VÍCTOR Anthony [id number] 07/26/2014 13:37:00 07/26/2014 23:59:59 CLS Outpatient JOEL FALCON APRN [id number] 05/28/2014 00:00:00 05/28/2014 23:59:59 CLS Outpatient BLAIR DO, VÍCTOR Anthony [id number] 05/03/2014 11:11:00 05/03/2014 23:59:59 CLS Outpatient BLAIR DO, VÍCTOR Anthony [id number] 05/03/2014 11:11:00 05/03/2014 23:59:59 CLS Outpatient BLAIR DO, VÍCTOR Anthony [id number] 04/27/2014 00:00:00 04/27/2014 23:59:59 CLS Outpatient BLAIR DO, VÍCTOR Anthony [id number] 10/01/2013 09:12:00 10/01/2013 23:59:59 CLS Outpatient BLAIR DO, VÍCTOR Anthony [id number] 10/01/2013 09:12:00 10/01/2013 23:59:59 CLS Outpatient BLAIR DOVÍCTOR [id number] 04/01/2013 10:06:00 04/01/2013 23:59:59 CLS Outpatient BLAIR DO, VÍCTOR Anthony [id number] 04/01/2013 10:06:00 04/01/2013 23:59:59 CLS Outpatient BLAIR DO, VÍCTOR Anthony [id number] 10/06/2012 16:10:00 10/06/2012 23:59:59 CLS Outpatient [id number] 2012 14:58:00 2012 23:59:59 CLS Outpatient TERRIE LIMAJOEL Mckeon [id number] 06/09/2012 16:46:00 06/09/2012 23:59:59 CLS Outpatient BLAIR DOVÍCTOR [id number] 02/07/2012 14:20:00 02/07/2012 23:59:59 CLS Outpatient BLAIR DO, VÍCTOR K [id number] 01/08/2013 13:43:00 Document Registration [id number] 10/06/2012 16:10:00 Document Registration [id number] 08/10/2017 16:30:00 08/10/2017 23:59:59 [facility] Outpatient DOMINICK [facility] [id number] 05/28/2017 16:20:00 Document Registration [id number] 03/15/2017 09:20:00 Document Registration
[2017-11-25 19:15] VITALS: BP 106/65
[2017-11-25] MEDS ORDERED: CATHETER FLUSH 10 ML SYR IV PRN (19:30)
[2017-11-25 20:00] VITALS: BP 118/68
[2017-11-25] MEDS: cefTRIAXone 1 GM/NS 100 ML IVPB IV SCH ×2 (20:22)
[2017-11-25] MEDS: ENOXAPARIN 40 MG/0.4 ML (LOVENOX) SYR SC SCH (20:22)
[2017-11-25 20:32] VITALS: BP 106/65
[2017-11-25 21:00] VITALS: BP 139/76
[2017-11-25] MEDS: inSUlin ASPART (NovoLOG) 1 UNIT/0.01 ML (CHARGE PER UNIT) SC SCH (21:07)
[2017-11-25] MEDS: CATHETER FLUSH 10 ML SYR IV SCH (21:08)
[2017-11-25] MEDS ORDERED: RT-ALBUTEROL SULF 2.5 MG/3 ML PRE-MIX VIAL INH PRN (21:15)
[2017-11-25 22:00] VITALS: BP 130/77
[2017-11-25 23:00] VITALS: BP 121/78
[2017-11-25] MEDS: methylPREDNISolone 125 MG (Solu-MEDROL) VIAL IV SCH (23:25)
[2017-11-26] VITALS (15 sets, daily range): BP systolic 109–134; BP diastolic 58–80
[2017-11-26 03:27] LABS: BASOPHILS % (AUTO) 0 % (0-10); EOSINOPHILS % (AUTO) 0 % (0-10); HEMATOCRIT 45 % (35-52); HEMOGLOBIN 14.2 G/DL (11.5-16.0); LYMPHOCYTES # (AUTO) 0.6 X 10^3 (1.0-4.0); LYMPHOCYTES % (AUTO) 7 % (12-44); MEAN CORPUSCULAR HEMOGLOBIN 32 PG (25-34); MEAN CORPUSCULAR HGB CONC 32 G/DL (32-36); MEAN CORPUSCULAR VOLUME 100 FL (80-99); MEAN PLATELET VOLUME 9.4 FL (7.4-10.4); MONOCYTES % (AUTO) 0 % (0-12); NEUTROPHILS % (AUTO) 92 % (42-75); PLATELET COUNT 207 10^3/uL (130-400); RED BLOOD COUNT 4.46 10^6/uL (4.35-5.85); RED CELL DISTRIBUTION WIDTH 14.8 % (10.0-14.5); WHITE BLOOD COUNT 7.6 10^3/uL (4.3-11.0)
[2017-11-26 03:43] LABS: MAGNESIUM 2.4 MG/DL (1.8-2.4); PHOSPHORUS 3.7 MG/DL (2.3-4.7)
[2017-11-26 03:44] LABS: ALBUMIN 3.7 GM/DL (3.2-4.5); BILIRUBIN,TOTAL 0.3 MG/DL (0.1-1.0); CALCIUM 10.2 MG/DL (8.5-10.1); CREATININE SERUM 1.03 MG/DL (0.60-1.30); POTASSIUM 4.7 MMOL/L (3.6-5.0); TOTAL PROTEIN 8.1 GM/DL (6.4-8.2)
[2017-11-26] MEDS: CATHETER FLUSH 10 ML SYR IV SCH ×3 (05:47→20:17)
[2017-11-26] MEDS: inSUlin ASPART (NovoLOG) 1 UNIT/0.01 ML (CHARGE PER UNIT) SC SCH ×4 (05:48→21:49)
--- NOTE | 2017-11-26 07:38 | Diagnostic Imaging Report ---
EXAM: CHEST 1 VIEW, AP/PA ONLY INDICATION: Shortness, congestion. COPD exacerbation. Respiratory distress. COMPARISON: Chest radiograph 11/25/2017. FINDINGS: Normal heart size and pulmonary vascularity. No dense consolidation, pleural effusion or pneumothorax. No acute osseous findings. IMPRESSION: No acute cardiopulmonary findings. Dictated by: Dictated on workstation # [id number]
[2017-11-26] MEDS: methylPREDNISolone 125 MG (Solu-MEDROL) VIAL IV SCH (08:02)
[2017-11-26] MEDS: cefTRIAXone 1 GM/NS 100 ML IVPB IV SCH ×2 (08:03)
[2017-11-26] MEDS: RT-ALBUTEROL SULF 2.5 MG/3 ML PRE-MIX VIAL INH SCH ×2 (08:13→19:24)
[2017-11-26] MEDS: RT-ADVAIR HFA 115/21 MCG PER PUFF IH SCH ×2 (08:13→19:24)
[2017-11-26] MEDS ORDERED: FERR325T18 PO (09:06)
[2017-11-26] MEDS ORDERED: RT-ALBUINH INH (09:06)
[2017-11-26] MEDS ORDERED: ATOR10TA66 PO (09:06)
[2017-11-26] MEDS ORDERED: LORA10TA7 PO (09:06)
[2017-11-26] MEDS ORDERED: OMG1KC PO (09:06)
[2017-11-26] MEDS ORDERED: METF500T5 PO (09:06)
[2017-11-26] MEDS ORDERED: IPRA3AMP NEB (09:06)
[2017-11-26] MEDS ORDERED: FLUT16SP22 NS (09:06)
[2017-11-26] MEDS ORDERED: FLUT1DIS26 INH (09:06)
[2017-11-26] MEDS ORDERED: FAMO20TA5 PO (09:06)
[2017-11-26] MEDS ORDERED: TIOT18CA2 INH (09:06)
[2017-11-26] MEDS ORDERED: AMLO10TA2 PO (09:06)
[2017-11-26] MEDS ORDERED: MONT10TA24 PO (09:06)
[2017-11-26] MEDS ORDERED: NF-SOLIF5T PO (09:06)
[2017-11-26] MEDS ORDERED: LEVO175T5 PO (09:06)
[2017-11-26] MEDS ORDERED: POTA10TA36 PO (09:06)
[2017-11-26] MEDS ORDERED: LISI2.5T PO (09:06)
[2017-11-26] MEDS ORDERED: FURO40TA4 PO (09:06)
[2017-11-26] MEDS ORDERED: PARO40TA3 PO (09:06)
--- NOTE | 2017-11-26 10:52 | History & Physicial (CHS) ---
HPI History of Present Illness: 52 yo F with known COPD with baseline oxygen requirement of 3L that came to ER after she was found to have oxygen saturation in the 60% at home. Patient states that she started to feel bad on Saturday. States that she has very bad allergies and that is usually her trigger. Started with nasal congestion and cough. Denies any fever or chills. States that she has not missed any doses of medications and that she uses her CPAP with oxygen every night and that she has been wearing her oxygen continuously at home. No sick contacts. She does continue to smoke 1/2 ppd. Source: patient, old records Exam Limitations: no limitations Date seen by provider: November 26, 2017 Time Seen by Provider: 10:15 Attending Physician Jacey Villanueva MD [facility] Consult Date of Admission November 25, 2017 at 18:43 Home Medications Home Medications Reviewed patient Home Medication Reconciliation performed by pharmacy medication reconciliations maintenance parts technician and/or nursing. Patients Allergies have been reviewed. Allergies Coded Allergies: NKANo Known Allergies (Unverified Allergy, Mild, 05/01/09) DBN-Jurjlg-Dmijgc Hx Patient Social History Alcohol Use: Denies Use Recreational Drug Use: No Smoking Status: Current Everyday Smoker Type Used: Cigarettes 2nd Hand Smoke Exposure: Yes Recent Foreign Travel: No Contact w/other who traveled: No Recent Hopitalizations: Yes Recent Infectious Disease Expo: No Physical Abuse Screen: No Sexual Abuse: No Past Medical History COPD with baseline oxygen 3L NIDDM HTN Obesity Hypothyroidism Review of Systems (CHC) Constitutional: No chills, No fever; malaise EENTM: nose congestion Respiratory: cough, dyspnea on exertion, short of breath Cardiovascular: No chest pain, No edema, No palpitations Gastrointestinal: no symptoms reported; No abdominal pain, No constipation, No diarrhea, No nausea, No vomiting Genitourinary: no symptoms reported; No dysuria, No frequency, No hematuria : No Musculoskeletal: no symptoms reported; No back pain, No joint pain, No muscle pain Skin: no symptoms reported; No lesions, No rash Psychiatric/Neurological: No Symptoms Reported; Denies Anxiety, Denies Depressed, Denies Headache Reviewed Test Results Reviewed Test Results Lab Laboratory Tests Test 11/25/17 17:30 11/25/17 17:44 11/25/17 19:35 11/25/17 21:03 Range/Units White Blood Count 9.0 4.3-11.0 10^3/uL Red Blood Count 4.66 4.35-5.85 10^6/uL Hemoglobin 14.6 11.5-16.0 G/DL Hematocrit 46 35-52 % Mean Corpuscular Volume 98 80-99 FL Mean Corpuscular Hemoglobin 31 25-34 PG Mean Corpuscular Hemoglobin Concent 32 32-36 G/DL Red Cell Distribution Width 14.7 H 10.0-14.5 % Platelet Count 206 130-400 10^3/uL Mean Platelet Volume 9.2 7.4-10.4 FL Neutrophils (%) (Auto) 74 42-75 % Lymphocytes (%) (Auto) 20 12-44 % Monocytes (%) (Auto) 5 0-12 % Eosinophils (%) (Auto) 1 0-10 % Basophils (%) (Auto) 0 0-10 % Neutrophils # (Auto) 6.7 1.8-7.8 X 10^3 Lymphocytes # (Auto) 1.8 1.0-4.0 X 10^3 Monocytes # (Auto) 0.5 0.0-1.0 X 10^3 Eosinophils # (Auto) 0.1 0.0-0.3 10^3/uL Basophils # (Auto) 0.0 0.0-0.1 10^3/uL Sodium Level 138 135-145 MMOL/L Potassium Level 4.2 3.6-5.0 MMOL/L Chloride Level 96 L 98-107 MMOL/L Carbon Dioxide Level 32 21-32 MMOL/L Anion Gap 10 5-14 MMOL/L Blood Urea Nitrogen 8 7-18 MG/DL Creatinine 0.91 0.60-1.30 MG/DL Estimat Glomerular Filtration Rate > 60 BUN/Creatinine Ratio 9 Glucose Level 232 H 70-105 MG/DL Lactic Acid Level 2.59 *H 1.10 0.50-2.00 MMOL/L Calcium Level 10.3 H 8.5-10.1 MG/DL Total Bilirubin 0.4 0.1-1.0 MG/DL Aspartate Amino Transf (AST/SGOT) 11 5-34 U/L Alanine Aminotransferase (ALT/SGPT) 9 0-55 U/L Alkaline Phosphatase 115 40-136 U/L Troponin I < 0.30 <0.30 NG/ML Total Protein 8.2 6.4-8.2 GM/DL Albumin 3.9 3.2-4.5 GM/DL Blood Gas Puncture Site RT RADIAL Blood Gas Patient Temperature 98.0 Arterial Blood pH 7.37 7.37-7.43 Arterial Blood Partial Pressure CO2 62 H 35-45 MMHG Arterial Blood Partial Pressure O2 86 79-93 MMHG Arterial Blood HCO3 35 H 23-27 MMOL/L Arterial Blood Total CO2 37.0 H 21.0-31.0 MMOL/L Arterial Blood Oxygen Saturation 99 94-100 % Arterial Blood Base Excess 9.6 H -2.5-2.5 MMOL/L Da Test YES-POS Blood Gas Ventilator Setting NO Blood Gas Inspired Oxygen 40% Glucometer 259 H 70-110 MG/DL Test 11/26/17 02:58 11/26/17 05:46 11/26/17 10:23 Range/Units White Blood Count 7.6 4.3-11.0 10^3/uL Red Blood Count 4.46 4.35-5.85 10^6/uL Hemoglobin 14.2 11.5-16.0 G/DL Hematocrit 45 35-52 % Mean Corpuscular Volume 100 H 80-99 FL Mean Corpuscular Hemoglobin 32 25-34 PG Mean Corpuscular Hemoglobin Concent 32 32-36 G/DL Red Cell Distribution Width 14.8 H 10.0-14.5 % Platelet Count 207 130-400 10^3/uL Mean Platelet Volume 9.4 7.4-10.4 FL Neutrophils (%) (Auto) 92 H 42-75 % Lymphocytes (%) (Auto) 7 L 12-44 % Monocytes (%) (Auto) 0 0-12 % Eosinophils (%) (Auto) 0 0-10 % Basophils (%) (Auto) 0 0-10 % Neutrophils # (Auto) 7.0 1.8-7.8 X 10^3 Lymphocytes # (Auto) 0.6 L 1.0-4.0 X 10^3 Monocytes # (Auto) 0.0 0.0-1.0 X 10^3 Eosinophils # (Auto) 0.0 0.0-0.3 10^3/uL Basophils # (Auto) 0.0 0.0-0.1 10^3/uL Sodium Level 138 135-145 MMOL/L Potassium Level 4.7 3.6-5.0 MMOL/L Chloride Level 96 L 98-107 MMOL/L Carbon Dioxide Level 33 H 21-32 MMOL/L Anion Gap 9 5-14 MMOL/L Blood Urea Nitrogen 11 7-18 MG/DL Creatinine 1.03 0.60-1.30 MG/DL Estimat Glomerular Filtration Rate 56 BUN/Creatinine Ratio 11 Glucose Level 321 H 70-105 MG/DL Calcium Level 10.2 H 8.5-10.1 MG/DL Phosphorus Level 3.7 2.3-4.7 MG/DL Magnesium Level 2.4 1.8-2.4 MG/DL Total Bilirubin 0.3 0.1-1.0 MG/DL Aspartate Amino Transf (AST/SGOT) 9 5-34 U/L Alanine Aminotransferase (ALT/SGPT) 8 0-55 U/L Alkaline Phosphatase 110 40-136 U/L Total Protein 8.1 6.4-8.2 GM/DL Albumin 3.7 3.2-4.5 GM/DL Glucometer 270 H 230 H 70-110 MG/DL Radiology Date of Exam: 11/25/17 CHEST 1 VIEW, AP/PA ONLY INDICATION: Shortness of breath and congestion. COMPARISON: 07/12/2010. FINDINGS: There is air trapping and COPD as a chronic finding. Some increased prominence of the alisha bilaterally, greater right, likely reflect increased vascular congestion superimposed but followup as appropriate. No rishi edema or focal pneumonia. No effusion or pneumothorax. IMPRESSION: Upper limits heart size slightly increased. Likely some increased vascular congestion superimposed accounts for hilar fullness in the interim. Radiographic followup however recommended. Otherwise unremarkable. Physical Exam-(CHC) Physical Exam Vital Signs VS - Last 72 Hours, by Label 11/25/17 11/25/17 11/25/17 11/25/17 17:38 17:45 18:11 18:59 Temp 98.0 98.0 98.0 Pulse 104 114 114 114 Resp 24 28 28 28 B/P (MAP) 148/89 (108) 148/89 148/89 (108) Pulse Ox 94 73 73 73 O2 Flow Rate 40.00 40.00 40.00 11/25/17 11/25/17 11/25/17 11/25/17 19:10 19:11 19:15 20:00 Temp 98.1 Pulse 89 83 Resp 24 B/P (MAP) 106/65 (79) Pulse Ox 94 93 92 O2 Delivery Nasal Cannula High Flow N/C Nasal Cannula O2 Flow Rate 6.00 6.00 6.00 11/25/17 11/25/17 11/25/17 11/25/17 20:00 20:32 21:00 22:00 Pulse 76 83 85 71 Resp 14 16 19 B/P (MAP) 118/68 (85) 139/76 (97) 130/77 (94) Pulse Ox 95 93 94 94 O2 Delivery Nasal Cannula Nasal Cannula Nasal Cannula O2 Flow Rate 6.00 6.00 6.00 11/25/17 11/25/17 11/25/17 11/25/17 22:40 23:00 23:24 23:25 Temp 97.3 Pulse 65 Resp 17 B/P (MAP) 121/78 (92) Pulse Ox 96 92 90 90 O2 Delivery Nasal Cannula Nasal Cannula Nasal Cannula Nasal Cannula O2 Flow Rate 4.00 4.00 6.00 6.00 11/26/17 11/26/17 11/26/17 11/26/17 00:00 01:00 01:00 02:00 Pulse 73 64 64 57 Resp 23 18 17 B/P (MAP) 134/76 (95) 133/80 (97) 131/79 (96) Pulse Ox 95 96 96 O2 Delivery Nasal Cannula Nasal Cannula Nasal Cannula O2 Flow Rate 4.00 4.00 4.00 11/26/17 11/26/17 11/26/17 11/26/17 03:00 03:55 04:00 04:00 Temp 97.6 Pulse 67 65 Resp 16 16 B/P (MAP) 131/80 (97) 128/76 (93) Pulse Ox 94 93 96 O2 Delivery Nasal Cannula Nasal Cannula Nasal Cannula O2 Flow Rate 4.00 4.00 6.00 11/26/17 11/26/17 11/26/17 11/26/17 05:00 06:00 07:00 08:00 Pulse 61 67 64 Resp 20 16 B/P (MAP) 109/79 (89) 116/76 (89) Pulse Ox 95 94 O2 Delivery Nasal Cannula Nasal Cannula Nasal Cannula O2 Flow Rate 4.00 4.00 6.00 11/26/17 11/26/17 08:14 08:15 Temp 97.6 Pulse Ox 94 O2 Delivery Nasal Cannula Nasal Cannula O2 Flow Rate 6.00 4.00 Capillary Refill : Less Than 3 Seconds General Appearance: WD/WN, no apparent distress, obese, other (Sitting up in bed) HEENT: PERRL/EOMI Neck: non-tender, full range of motion, supple Respiratory: chest non-tender, no respiratory distress, no accessory muscle use ; No crackles; wheezing, expiration Cardiovascular: normal peripheral pulses, regular rate, rhythm, no edema, no JVD, no murmur Gastrointestinal: normal bowel sounds, non tender, soft, no organomegaly Extremities: normal range of motion, non-tender, normal inspection, no pedal edema, no calf tenderness, normal capillary refill Neurologic/Psychiatric: board certified music therapist II-XII nml as tested, no motor/sensory deficits, alert, normal mood/affect, oriented x 3 Skin: normal color, warm/dry Lymphatic: no adenopathy Assessment/Plan Assessment/Plan Admission Status: Inpatient Order (span 2 midnights) Reason for Inpatient Admission: oxygen support (1) Acute and chronic respiratory failure with hypoxia Status: Acute Assessment & Plan: - Started on Bipap in the ER, weaned off now on 5L NC ( patient's baseline 3L) - MAT protocol - continue antibiotics and steroids, transitioned to PO today - Encourage ambulation (2) COPD exacerbation Status: Acute Assessment & Plan: - See Above (3) Non-insulin treated type 2 diabetes mellitus Status: Chronic Assessment & Plan: - Restart Metformin, blood sugars will likely be elevated given steroids (4) Hypothyroidism Status: Chronic Assessment & Plan: - continue home med Qualifiers: Qualified Codes: E03.9 - Hypothyroidism, unspecified (5) Depression Status: Chronic Assessment & Plan: - Continue home medication Qualifiers: Qualified Codes: F33.1 - Major depressive disorder, recurrent, moderate (6) HTN (hypertension) Status: Chronic Assessment & Plan: - Holding blood pressure medications as blood pressure is normo to low Qualifiers: Qualified Codes: I10 - Essential (primary) hypertension (7) JORGE L treated with BiPAP Status: Chronic Assessment & Plan: - Continue Bipap at night (8) DVT prophylaxis Status: Acute Assessment & Plan: Lovenox daily Clinical Quality Measures DVT/VTE Risk/Contraindication: Risk Factor Score Per Nursin RFS Level Per Nursing on Admit: 4+=Very High Copy Copies To 1: Sofía RODRIGEZ HOLLY R MD November 26, 2017 10:52
[2017-11-26] MEDS: predniSONE 20 MG TAB PO SCH ×2 (11:27→16:42)
[2017-11-26] MEDS ORDERED: PARoxetine 20 MG (PAXIL) TAB PO SCH (15:00)
[2017-11-26] MEDS ORDERED: ACETAMINOPHEN 325 MG TABLET/CAPLET (TYLENOL) PO PRN (17:15)
[2017-11-26] MEDS: FAMOTIDINE 20 MG (PEPCID) TABLET PO SCH (20:16)
[2017-11-26] MEDS: ENOXAPARIN 40 MG/0.4 ML (LOVENOX) SYR SC SCH (20:16)
[2017-11-26] MEDS ORDERED: ATORVASTATIN 10 MG (LIPITOR) TABLET PO SCH (21:00)
[2017-11-27] VITALS: BP 136/68
[2017-11-27 05:00] VITALS: BP 134/81
[2017-11-27 06:03] LABS: BASOPHILS % (AUTO) 0 % (0-10); EOSINOPHILS % (AUTO) 0 % (0-10); HEMATOCRIT 43 % (35-52); HEMOGLOBIN 13.6 G/DL (11.5-16.0); LYMPHOCYTES % (AUTO) 9 % (12-44); MEAN CORPUSCULAR HEMOGLOBIN 32 PG (25-34); MEAN CORPUSCULAR HGB CONC 32 G/DL (32-36); MEAN CORPUSCULAR VOLUME 101 FL (80-99); MEAN PLATELET VOLUME 9.5 FL (7.4-10.4); MONOCYTES # (AUTO) 0.5 X 10^3 (0.0-1.0); MONOCYTES % (AUTO) 5 % (0-12); NEUTROPHILS # (AUTO) 9.5 X 10^3 (1.8-7.8); NEUTROPHILS % (AUTO) 86 % (42-75); PLATELET COUNT 215 10^3/uL (130-400); RED BLOOD COUNT 4.28 10^6/uL (4.35-5.85); RED CELL DISTRIBUTION WIDTH 14.3 % (10.0-14.5); WHITE BLOOD COUNT 10.9 10^3/uL (4.3-11.0)
[2017-11-27] MEDS: predniSONE 20 MG TAB PO SCH (06:13)
[2017-11-27] MEDS: CATHETER FLUSH 10 ML SYR IV SCH (06:14)
[2017-11-27] MEDS: inSUlin ASPART (NovoLOG) 1 UNIT/0.01 ML (CHARGE PER UNIT) SC SCH ×2 (06:14→11:49)
[2017-11-27 06:28] LABS: BUN/CREATININE RATIO 23; CALCIUM 10.1 MG/DL (8.5-10.1); CARBON DIOXIDE 34 MMOL/L (21-32); CHLORIDE 97 MMOL/L (98-107); CREATININE SERUM 0.79 MG/DL (0.60-1.30); GFR ESTIMATED > 60; GLUCOSE 220 MG/DL (70-105); POTASSIUM 4.8 MMOL/L (3.6-5.0); SODIUM 140 MMOL/L (135-145)
[2017-11-27] MEDS ORDERED: LEVOTHYROXINE 75 MCG (LEVOTHROID) TABLET PO SCH (06:30)
[2017-11-27] MEDS ORDERED: LEVOTHYROXINE 100 MCG (LEVOTHROID) TAB PO SCH (06:30)
[2017-11-27 08:00] VITALS: BP 137/65
[2017-11-27] MEDS: RT-ALBUTEROL SULF 2.5 MG/3 ML PRE-MIX VIAL INH SCH (08:05)
[2017-11-27] MEDS: RT-ADVAIR HFA 115/21 MCG PER PUFF IH SCH (08:05)
[2017-11-27] MEDS: FAMOTIDINE 20 MG (PEPCID) TABLET PO SCH (08:10)
[2017-11-27] MEDS: cefTRIAXone 1 GM/NS 100 ML IVPB IV SCH ×2 (08:10)
[2017-11-27] MEDS ORDERED: LORATADINE (CLARITIN) 10 MG TAB PO SCH (09:00)
[2017-11-27] MEDS ORDERED: ATORVASTATIN 10 MG (LIPITOR) TABLET PO SCH (09:00)
--- NOTE | 2017-11-27 11:15 | Discharge Summary ---
Diagnosis/Chief Complaint Date of Admission November 25, 2017 at 6:43 pm Date of Discharge 11/27/2017 Admission Diagnosis Admission Diagnosis Acute on Chronic Respiratory failure with hypoxia COPD Exacerbation NIDDM Hypothyroidism Depression HTN JORGE L Discharge Diagnosis See Above Chief Complaint/HPI Chief Complaint/HPI 52 yo F with known COPD with baseline oxygen requirement of 3L that came to ER after she was found to have oxygen saturation in the 60% at home. Patient states that she started to feel bad on Saturday. States that she has very bad allergies and that is usually her trigger. Started with nasal congestion and cough. Denies any fever or chills. States that she has not missed any doses of medications and that she uses her CPAP with oxygen every night and that she has been wearing her oxygen continuously at home. No sick contacts. She does continue to smoke 1/2 ppd. Discharge Summary-Simple/Stand Procedures None Consultations None Discharge Physical Examination Allergies: Coded Allergies: NKANo Known Allergies (Unverified Allergy, Mild, 05/01/09) Vitals & I&Os Vital Sign - Last 12Hours Date Time Temp Pulse Resp B/P (MAP) Pulse Ox O2 Delivery O2 Flow Rate FiO2 11/27/17 08:05 93 Nasal Cannula 6.00 11/27/17 08:00 97.1 81 18 137/65 (89) Intake and Output 11/27/17 00:00 Intake Total 740 ml Output Total 450 ml Balance 290 ml General Appearance: Alert, Oriented X3, Cooperative HEENT: Mucous Memb Moist/[place] Respiratory: Other (diminished breath sounds, basilar end expiratory wheezing) Cardiovascular: Regular Rate, No Murmurs Abdominal: Normal Bowel Sounds, Soft, No Tenderness Extremities: No Tenderness/Swelling Skin: No Rashes Neuro: Normal Speech, Strength at 5/5 X4 Ext, Sensation Intact, Cranial Nerves 3-12 NL Psych/Mental Status: Mental Status NL, Mood NL Hospital Course See final discharge diagnosis. Radiology Reviewed Date of Exam: 11/25/17 CHEST 1 VIEW, AP/PA ONLY INDICATION: Shortness of breath and congestion. COMPARISON: 07/12/2010. FINDINGS: There is air trapping and COPD as a chronic finding. Some increased prominence of the alisha bilaterally, greater right, likely reflect increased vascular congestion superimposed but followup as appropriate. No rishi edema or focal pneumonia. No effusion or pneumothorax. IMPRESSION: Upper limits heart size slightly increased. Likely some increased vascular congestion superimposed accounts for hilar fullness in the interim. Radiographic followup however recommended. Otherwise unremarkable. Discussion & Recommendations 52 yo F that was admitted for decompensation of here COPD with hypoxia Acute on Chronic Respiratory failure with hypoxia: Patient was able to titrate her oxygen back to baseline. She was put on scheduled breathing treatments. She was discharged on steroids and antibiotics. Discussed the importance of smoking cessation. COPD Exacerbation: See Above NIDDM: Blood sugars elevated during admission, likely 2/2 to steroid use. Continue to monitor sugars closely at home. Hypothyroidism: Continue home med Depression: continued home med HTN: Continued home med JORGE L: continued Bipap at night Discharge Condition at discharge Stable Instructions to patient/family Please see electronic discharge instructions given to patient. Discharge Medications Reviewed and agree with Discharge Medication list on patient's Discharge Instruction sheet Clinical Quality Measures DVT/VTE Risk/Contraindication: Risk Factor Score Per Nursin RFS Level Per Nursing on Admit: 4+=Very High NORMAN ALY MD November 27, 2017 11:15
[2017-11-27] MEDS ORDERED: PRD20T PO (11:19)
[2017-11-27] MEDS ORDERED: CEFD300C3 PO (11:19)
--- NOTE | 2017-11-27 11:21 | Discharge Instructions ---
Discharge [facility] Discharge Medications New, Converted or Re-Newed RX: Transmitted to Pharmacy (Sam) New Medications: Cefdinir (Cefdinir) 300 Mg Capsule 300 MG PO BID, #14 CAP Prednisone (Prednisone) 20 Mg Tab 40 MG PO DAILY for 5 Days, #5 TAB Continued Medications: Albuterol Sulfate (Proair Hfa) 1 Puff Puff 2 PUFF INH Q4H PRN for SHORTNESS OF BREATH, INHALER Amlodipine Besylate (Amlodipine Besylate) 10 Mg Tablet 10 MG PO DAILY, TAB Atorvastatin Calcium (Atorvastatin Calcium) 10 Mg Tablet 10 MG PO DAILY, TAB Famotidine (Famotidine) 20 Mg Tablet 20 MG PO BID, TAB Fluticasone Propionate (Fluticasone Propionate) 16 Gm [place].susp 2 SPRAY NS DAILY, EA Fluticasone/Salmeterol (Advair 250-50 Diskus) 1 Each Blst.w.dev 1 PUFF INH BID, INHALER Furosemide (Furosemide) 40 Mg Tablet 40 MG PO DAILY, TAB Ipratropium/Albuterol Sulfate (Iprat-Albut 0.5-3(2.5) mg/3 ml) 3 Ml Ampul.neb 3 ML NEB Q4H PRN for SHORTNESS OF BREATH, EA Levothyroxine Sodium (Levothyroxine Sodium) 175 Mcg Tablet 175 MCG PO DAILY, TAB Lisinopril (Lisinopril) 2.5 Mg Tablet 2.5 MG PO DAILY, TAB Loratadine (Loratadine) 10 Mg Tablet 10 MG PO DAILY, TAB Metformin HCl (Metformin HCl) 500 Mg Tablet 500 MG PO BID, TAB Montelukast Sodium (Montelukast Sodium) 10 Mg Tablet 10 MG PO HS, TAB [place] 3 Polyunsat Fatty Acids (Fish Oil 1,000 mg Capsule) 1,000 Mg Cap 2000 MG PO DAILY, CAP TAKES 2 (1000MG) CAPSULES Paroxetine HCl (Paroxetine HCl) 40 Mg Tablet 40 MG PO 1500, TAB Potassium Chloride (Potassium Chloride) 10 Meq Tab.er.prt 10 MEQ PO DAILY, TAB Solifenacin Succinate (Vesicare) 5 Mg Tablet 5 MG PO DAILY, TAB Tiotropium [place] (Spiriva) 1 Inh Aerp 1 CAP INH DAILY, CAP Discontinued Medications: Ferrous Sulfate (Ferrous Sulfate) 325 Mg Tablet 325 MG PO DAILY, TAB Patient Instructions Goal/Follow Up Appt: You have an appt with Sofía Flynn on December 03 @ 120 PM Patient Instructions: - Make sure you complete your antiboitics and steroids - Make sure you wear you oxygen continuously - Discussed the importance of smoking cessation Return to [facility]: - Unable to tolerate medications - Shortness of breath - Chest pain Activity & Diet Discharge Diet: ADA Diet Orders-Post D/C & Referrals Pneu Vac Indicated: Yes Copy Copies To 1: [facility] NORMAN Sahu MD November 27, 2017 11:21 am
[2017-11-27 12:50] VITALS: BP 137/65
[2017-11-27] MEDS ORDERED: MONTELUKAST 10 MG (SINGULAIR) TAB PO SCH (21:00)
== END 2017-11-27 12:50 | disposition home or self-care (01) | DRG 189 ==
LOC: EDUNIT# 17:22 → ER 17:24 → ICU 18:43 → 4TH 11-26 15:05
PROVIDERS: ADMIT Family Medicine; ATTEND Family Medicine
DX: J96.21 Acute and chronic respiratory failure with hypoxia (principal); J44.1 Chronic obstructive pulmonary disease with (acute) exacerbation; R06.03 Acute respiratory distress; E11.9 Type 2 diabetes mellitus without complications; E03.9 Hypothyroidism, unspecified; F41.9 Anxiety disorder, unspecified; F32.9 Major depressive disorder, single episode, unspecified; I10 Essential (primary) hypertension; G47.33 Obstructive sleep apnea (adult) (pediatric); F17.210 Nicotine dependence, cigarettes, uncomplicated; Z99.81 Dependence on supplemental oxygen
CPT/HCPCS: 36415; 36600; 71045; 80048; 80053; 82805; 82962; 83605; 83735; 84100; 84484; 85025; 87040; 87070; 87077; 87081; 87186; 87205; 87804; 93005; 94640; 94760; 96374

== ENCOUNTER 2018-09-22 16:29 | Emergency (ER) | payer MEDICAID ==
[~2018-09-22] VITALS: Ht 167.6 cm; Wt 113.4 kg
[~2018-09-22 16:29] MED LIST changes: +AMLO10TA7 PO; +ATOR10TA66 PO; +CEFD300C3 PO; +FAMO20TA5 PO; +FERR325T18 PO; +FLUT16SP22 NS; +FLUT1DIS26 INH; +FURO40TA4 PO; +IPRA3AMP31 NEB; +LEVO175T5 PO; +LISI2.5T PO; +LORA10TA7 PO; +METF-397 PO; +MONT10TA24 PO; +NF-SOLIF5T PO; +OMG1KC PO; +PARO40TA3 PO; +POTA10TA36 PO; +PRD20T PO; +RT-ALBUINH INH; +TIOT18CA2 INH
[2018-09-22] MEDS ORDERED: RT-ALBUTEROL SULF 2.5 MG/3 ML PRE-MIX VIAL INH STA (16:36)
[2018-09-22] MEDS ORDERED: RT-ALBUTEROL/IPRATROPIUM 3 ML (DUONEB) VIAL ONE (16:38)
[2018-09-22] MEDS ORDERED: RT-ALBUTEROL SULF 2.5 MG/3 ML PRE-MIX VIAL ONE (16:38)
[2018-09-22] MEDS ORDERED: methylPREDNISolone 125 MG (Solu-MEDROL) VIAL IVP ONE (16:45)
[2018-09-22] MEDS ORDERED: RT-ALBUTEROL/IPRATROPIUM 3 ML (DUONEB) VIAL INH ONE (16:45)
[2018-09-22 16:48] VITALS: BP 120/69
[2018-09-22 16:51] LABS: BASOPHILS % (AUTO) 0 % (0-10); EOSINOPHILS % (AUTO) 0 % (0-10); HEMATOCRIT 42 % (35-52); HEMOGLOBIN 13.5 G/DL (11.5-16.0); LYMPHOCYTES # (AUTO) 0.9 X 10^3 (1.0-4.0); LYMPHOCYTES % (AUTO) 10 % (12-44); MEAN CORPUSCULAR HEMOGLOBIN 30 PG (25-34); MEAN CORPUSCULAR HGB CONC 32 G/DL (32-36); MEAN CORPUSCULAR VOLUME 94 FL (80-99); MEAN PLATELET VOLUME 9.6 FL (7.4-10.4); MONOCYTES # (AUTO) 0.7 X 10^3 (0.0-1.0); MONOCYTES % (AUTO) 8 % (0-12); NEUTROPHILS # (AUTO) 8.1 X 10^3 (1.8-7.8); NEUTROPHILS % (AUTO) 83 % (42-75); PLATELET COUNT 169 10^3/uL (130-400); RED CELL DISTRIBUTION WIDTH 15.2 % (10.0-14.5); WHITE BLOOD COUNT 9.8 10^3/uL (4.3-11.0)
[2018-09-22 17:01] LABS: INR 0.9 (0.8-1.4); PROTHROMBIN TIME PATIENT 12.1 SEC (12.2-14.7)
[2018-09-22 17:10] LABS: ALANINE AMINOTRANSFERASE 9 U/L (0-55); ALBUMIN 3.8 GM/DL (3.2-4.5); ALKALINE PHOSPHATASE 101 U/L (40-136); BILIRUBIN,TOTAL 0.6 MG/DL (0.1-1.0); BUN/CREATININE RATIO 12; CALCIUM 10.4 MG/DL (8.5-10.1); CARBON DIOXIDE 33 MMOL/L (21-32); CHLORIDE 93 MMOL/L (98-107); CREATININE SERUM 0.91 MG/DL (0.60-1.30); GFR ESTIMATED > 60; GLUCOSE 143 MG/DL (70-105); SODIUM 135 MMOL/L (135-145); TOTAL PROTEIN 8.1 GM/DL (6.4-8.2)
[2018-09-22 17:29] LABS: BILIRUBIN,URINE NEGATIVE (NEGATIVE); CLARITY,URINE SLIGHTLY CLOUDY; COLOR,URINE YELLOW; GLUCOSE, URINE (UA) NEGATIVE (NEGATIVE); KETONES,URINE NEGATIVE (NEGATIVE); LEUKOCYTE ESTERASE ,URINE NEGATIVE (NEGATIVE); NITRITE,URINE NEGATIVE (NEGATIVE); PH,URINE 6 (5-9); PROTEIN,URINE 2+ (NEGATIVE); UROBILINOGEN,URINE 4 MG/DL (NORMAL)
--- NOTE | 2018-09-22 17:34 | Diagnostic Imaging Report ---
INDICATION: Shortness of air, hypoxia. FINDINGS: Air trapping and COPD chronic. The heart size is stable. Some prominence of pulmonary vascularity, unchanged from prior. Blunting of the right costophrenic angle and some hazy right basilar opacity raises the question of right-sided pleural fluid. There is a suggestion of some atelectasis in the right lung base as a new finding as well. IMPRESSION: Background COPD chronic, however, suspicion for developing right pleural fluid and subjacent infiltrate or basilar atelectasis. No other potential acute finding. Dictated by: Dictated on workstation # [id number]
--- NOTE | 2018-09-22 17:38 | ED General ---
General Chief Complaint: Respiratory Problems Stated Complaint: SOA Nursing Triage Note: PT BROUGHT IN BY EMS FROM [facility] WITH COMPLAINT OF LOW OXYGEN SAT. PT WENT TO [facility] FOR ROUTINE CHECK UP. SATS WERE 67% ON 3L. EN ROUTE EMS GAVE DUONEB AND HAD PT ON NON REBREATHER 15L. PT HAS HX OF COPD. STATES SHE FELT BAD YESTERDAY. BUT FELT BETTER TODAY. PT HAD FEVER 101.8 FOR EMS Nursing Sepsis Screen: No Definite Risk Source of Information: Patient Exam Limitations: No Limitations (REY CAMPBELL MD) History of Present Illness Date Seen by Provider: Sep 22, 2018 Time Seen by Provider: 16:32 Initial Comments Patient arrived via EMS. She was found by EMS to have oxygen saturations in the 60s on nasal cannula upon their arrival. She was administered high flow oxygen and a DuoNeb treatment which increased her oxygen saturation into the 80s and 90s. Patient reports feeling ill yesterday with congestion. She presented to the [facility] clinic today for a checkup and was found to be hypoxic and moving air poorly. She was also febrile for EMS with a temperature of 100.8. Patient does have COPD at baseline and uses oxygen at 3 L/m continuously at home. She also uses nebulizer treatments about every 4 hours at home. (REY CAMPBELL MD) Allergies and Home Medications Allergies Coded Allergies: CALDERONANo Known Allergies (Unverified Allergy, Mild, 05/01/09) Home Medications Albuterol Sulfate 1 Puff Puff, 2 PUFF INH Q4H PRN for SHORTNESS OF BREATH, ( Reported) Amlodipine Besylate 10 Mg Tablet, 10 MG PO DAILY, (Reported) Atorvastatin Calcium 10 Mg Tablet, 10 MG PO DAILY, (Reported) Cefdinir 300 Mg Capsule, 300 MG PO BID Prescribed by: NORMAN ALY on 11/27/17 1119 Famotidine 20 Mg Tablet, 20 MG PO BID, (Reported) Fluticasone Propionate 16 Gm [place].susp, 2 SPRAY NS DAILY, (Reported) Fluticasone/Salmeterol 1 Each Blst.w.dev, 1 PUFF INH BID, (Reported) Furosemide 40 Mg Tablet, 40 MG PO DAILY, (Reported) Ipratropium/Albuterol Sulfate 3 Ml Ampul.neb, 3 ML NEB Q4H PRN for SHORTNESS OF BREATH, (Reported) Levothyroxine Sodium 175 Mcg Tablet, 175 MCG PO DAILY, (Reported) Lisinopril 2.5 Mg Tablet, 2.5 MG PO DAILY, (Reported) Loratadine 10 Mg Tablet, 10 MG PO DAILY, (Reported) Metformin HCl 500 Mg Tablet, 500 MG PO BID, (Reported) Montelukast Sodium 10 Mg Tablet, 10 MG PO HS, (Reported) [place] 3 Polyunsat Fatty Acids 1,000 Mg Cap, 2,000 MG PO DAILY, (Reported) TAKES 2 (1000MG) CAPSULES Paroxetine HCl 40 Mg Tablet, 40 MG PO 1500, (Reported) Potassium Chloride 10 Meq Tab.er.prt, 10 MEQ PO DAILY, (Reported) Prednisone 20 Mg Tab, 40 MG PO DAILY Prescribed by: NORMAN ALY on 11/27/17 1119 Solifenacin Succinate 5 Mg Tablet, 5 MG PO DAILY, (Reported) Tiotropium [place] 1 Inh Aerp, 1 CAP INH DAILY, (Reported) Patient Home Medication List Home Medication List Reviewed: Yes (REY CAMPBELL MD) Review of Systems Review of Systems Constitutional: see HPI EENTM: see HPI Respiratory: see HPI Cardiovascular: no symptoms reported Gastrointestinal: no symptoms reported Genitourinary: no symptoms reported : No Musculoskeletal: no symptoms reported Skin: no symptoms reported Psychiatric/Neurological: No Symptoms Reported Hematologic/Lymphatic: No Symptoms Reported Immunological/Allergic: no symptoms reported (REY CAMPBELL MD) Past Lfcrqgh-Mwbnlf-Kcwmpy Hx Past Med/Social Hx: Reviewed and Corrections made (REY CAMPBELL MD) Patient Social History Alcohol Use: Denies Use Recreational Drug Use: No Smoking Status: Current Everyday Smoker Type Used: Cigarettes 2nd Hand Smoke Exposure: Yes Recent Foreign Travel: No Contact w/Someone Who Travel: No Recent Infectious Disease Expo: No Recent Hopitalizations: No (REY CAMPBELL MD) Immunizations Up To Date Tetanus Booster (TDap): Unknown PED Vaccines UTD: No (REY CAMPBELL MD) Seasonal Allergies Seasonal Allergies: Yes (REY CAMPBELL MD) Past Medical History Surgeries: Yes Respiratory: Yes (chronic hypoxia) COPD Currently Using CPAP: No Currently Using BIPAP: No Cardiac: Yes Neurological: No : No 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 Disorders: Denies Sexually Transmitted Disease: No HIV/AIDS: No Genitourinary: No Gastrointestinal: No Musculoskeletal: No Endocrine: Yes Hypothyroidsim, Diabetes, Non-Insulin dep HEENT: No Loss of Vision: Denies Hearing Impairment: Denies Cancer: No Psychosocial: Yes Anxiety, Depression Integumentary: No Blood Disorders: No Adverse Reaction/Blood Tranf: No (REY CAMPBELL MD) Physical Exam-Suspected Sepsis Physical Exam Vital Signs Vital Signs - First Documented 09/22/18 16:30 Temp 99.9 Pulse 120 Resp 24 B/P (MAP) 119/76 (90) Pulse Ox 85 O2 Delivery Non Rebreather O2 Flow Rate 15.00 (AJ WETZEL) Vital Signs Capillary Refill : Less Than 3 Seconds (REY CAMPBELL MD) Blood Pressure Mean: 90 Height, Weight, BMI Height: 5'6.00" Weight: 250lbs. 6.4oz. 113.335500gs; 38.9 BMI Method:Stated General Appearance: WD/WN, Mild Distress HEENT: PERRL/EOMI, TMs Normal, Normal ENT Inspection, Pharynx Normal Neck: Normal Inspection Respiratory: No Accessory Muscle Use, Decreased Breath Sounds, Wheezing Cardiovascular: No Edema, No Murmur, Tachycardia Gastrointestinal: Non Tender, Soft Extremity: Normal Inspection, No Pedal Edema Neurologic/Psychiatric: Alert, Oriented x3, No Motor/Sensory Deficits, Normal Mood/Affect, chinese herbalist II-XII Norm as Tested Skin: normal color, warm/dry (REY CAMPBELL MD) Focused Exam Lactate Level 09/22/18 16:35: Lactic Acid Level 1.56 (AJ WETZEL) Lactic Acid Level Laboratory Tests Test 09/22/18 16:35 Lactic Acid Level 1.56 MMOL/L (0.50-2.00) (AJ WETZEL) Progress/Results/Core Measures Suspected Sepsis Recent Fever Within 48 Hours: No Infection Criteria Present: None New/Unexplained Altered Menta: No Sepsis Screen: No Definite Risk SIRS Temperature:99.9 Pulse: 116 Respiratory Rate: 24 Laboratory Tests 09/22/18 16:35: White Blood Count 9.8 Blood Pressure 120 /69 Mean: 90 09/22/18 16:35: Lactic Acid Level 1.56 Laboratory Tests 09/22/18 16:35: Creatinine 0.91, INR Comment 0.9, Platelet Count 169, Total Bilirubin 0.6 (REY CAMPBELL MD) Results/Orders Lab Results Laboratory Tests Test 09/22/18 16:35 09/22/18 17:19 Range/Units White Blood Count 9.8 4.3-11.0 10^3/uL Red Blood Count 4.51 4.35-5.85 10^6/uL Hemoglobin 13.5 11.5-16.0 G/DL Hematocrit 42 35-52 % Mean Corpuscular Volume 94 80-99 FL Mean Corpuscular Hemoglobin 30 25-34 PG Mean Corpuscular Hemoglobin Concent 32 32-36 G/DL Red Cell Distribution Width 15.2 H 10.0-14.5 % Platelet Count 169 130-400 10^3/uL Mean Platelet Volume 9.6 7.4-10.4 FL Neutrophils (%) (Auto) 83 H 42-75 % Lymphocytes (%) (Auto) 10 L 12-44 % Monocytes (%) (Auto) 8 0-12 % Eosinophils (%) (Auto) 0 0-10 % Basophils (%) (Auto) 0 0-10 % Neutrophils # (Auto) 8.1 H 1.8-7.8 X 10^3 Lymphocytes # (Auto) 0.9 L 1.0-4.0 X 10^3 Monocytes # (Auto) 0.7 0.0-1.0 X 10^3 Eosinophils # (Auto) 0.0 0.0-0.3 10^3/uL Basophils # (Auto) 0.0 0.0-0.1 10^3/uL Prothrombin Time 12.1 L 12.2-14.7 SEC INR Comment 0.9 0.8-1.4 Activated Partial Thromboplast Time 32 24-35 SEC Sodium Level 135 135-145 MMOL/L Potassium Level 4.0 3.6-5.0 MMOL/L Chloride Level 93 L 98-107 MMOL/L Carbon Dioxide Level 33 H 21-32 MMOL/L Anion Gap 9 5-14 MMOL/L Blood Urea Nitrogen 11 7-18 MG/DL Creatinine 0.91 0.60-1.30 MG/DL Estimat Glomerular Filtration Rate > 60 BUN/Creatinine Ratio 12 Glucose Level 143 H 70-105 MG/DL Lactic Acid Level 1.56 0.50-2.00 MMOL/L Calcium Level 10.4 H 8.5-10.1 MG/DL Corrected Calcium 10.6 H 8.5-10.1 MG/DL Total Bilirubin 0.6 0.1-1.0 MG/DL Aspartate Amino Transf (AST/SGOT) 16 5-34 U/L Alanine Aminotransferase (ALT/SGPT) 9 0-55 U/L Alkaline Phosphatase 101 40-136 U/L C-Reactive Protein High Sensitivity 19.78 H 0.00-0.50 MG/DL B-Type Natriuretic Peptide 38.7 <100.0 PG/ML Total Protein 8.1 6.4-8.2 GM/DL Albumin 3.8 3.2-4.5 GM/DL Urine Color YELLOW Urine Clarity SLIGHTLY CLOUDY Urine pH 6 5-9 Urine Specific [place] 1.015 L 1.016-1.022 Urine Protein 2+ H NEGATIVE Urine Glucose (UA) NEGATIVE NEGATIVE Urine Ketones NEGATIVE NEGATIVE Urine Nitrite NEGATIVE NEGATIVE Urine Bilirubin NEGATIVE NEGATIVE Urine Urobilinogen 4 H NORMAL MG/DL Urine Leukocyte Esterase NEGATIVE NEGATIVE Urine RBC (Auto) 1+ H NEGATIVE Urine RBC 0-2 /HPF Urine WBC NONE /HPF Urine Squamous Epithelial Cells 2-5 /HPF Urine Crystals NONE /LPF Urine Bacteria NEGATIVE /HPF Urine Casts NONE /LPF Urine Mucus NEGATIVE /LPF Urine Culture Indicated NO (AJ WETZEL) Micro Results Microbiology 09/22/18 Influenza Types A,B Antigen (BUSHRA) - Final, Complete (AJ WETZEL) My Orders Orders - AJ WETZEL Ns Iv 1000 Ml (Sodium Chloride 0.9%) (09/22/18 19:30) Ns Iv 1000 Ml (Sodium Chloride 0.9%) (09/22/18 19:29) (AJ WETZEL) Medications Given in ED Current Medications Medications Dose Ordered Sig/Jeana Route Start Time Stop Time Status Last Admin Dose Admin Albuterol/ Ipratropium 3 ml ONCE ONCE INH 09/22/18 16:45 09/22/18 16:46 DC 09/22/18 16:47 3 ML Methylprednisolone Sodium Succinate 125 mg ONCE ONCE IVP 09/22/18 16:45 09/22/18 16:46 DC 09/22/18 16:51 125 MG Piperacillin Sod/ Tazobactam Sod 4.5 gm/Sodium Chloride 120 ml @ 240 mls/hr ONCE ONCE IV 09/22/18 18:00 09/22/18 18:29 DC 09/22/18 18:26 240 MLS/HR (AJ WETZEL) Vital Signs/I&O 09/22/18 09/22/18 16:30 16:48 Temp 99.9 Pulse 120 116 Resp 24 B/P (MAP) 119/76 (90) Pulse Ox 85 95 O2 Delivery Non Rebreather O2 Flow Rate 15.00 60.00 (AJ WETZEL) Vital Signs/I&O Capillary Refill : Less Than 3 Seconds (REY CAMPBELL MD) Blood Pressure Mean: 90 Progress Note : Time: 18:12 Progress Note Patient was immediately started on BiPAP therapy and an hour-long nebulizer treatment. Sepsis workup was pursued. Influenza screen was negative. Chest x- ray was suspicious for right-sided pneumonia. Zosyn was started after blood cultures were drawn. Patient was stable on BiPAP with settings at 12/6, rate 12 , FiO2 60 percent. She was maintaining oxygen saturations in the mid 90s on these settings. Repeat auscultation showed improved air movement on BiPAP. Solu-Medrol 125 mg IV was also administered. [facility] is presently on admission diversion due to bed availability. Transfer to [facility] was sought. Dr. Ann, hospitalist at [place], graciously accepted transfer of this patient. (REY CAMPBELL MD) Progress Note : Time: 19:51 Progress Note Assumed care of the patient at shift change. The patient was doing well, jovial , smiling and much more rest with the BiPAP on. She would desat if the BiPAP was taken off even produced a drink of water. We oversaw her transfer. Her blood pressure began to get a little soft around 100 systolic so we gave her another liter fluids for a total of 2 L of saline. (AJ WETZEL) Diagnostic Imaging Diagonstic Imaging: Xray Plain Films/CT/US/NM/MRI: chest Comments Chest x-ray viewed by me and report reviewed. See report below: NAME: SAMPSON CEVALLOS [facility] REC#: [id number] PT STATUS: REG ER : 1965 PHYSICIAN: REY CAMPBELL MD ADMIT DATE: 09/22/18/ER Draft Date of Exam:09/22/18 CHEST 1 VIEW, AP/PA ONLY INDICATION: Shortness of air and hypoxia. FINDINGS: Air trapping and COPD chronic. The heart size is stable. Some prominence of pulmonary vascularity, unchanged from prior. Blunting of the right costophrenic angle and some hazy right basilar opacity raises the question of right-sided pleural fluid. There is a suggestion of some atelectasis in the right lung base as a new finding as well. IMPRESSION: Background COPD chronic, however, suspicion for developing right pleural fluid and subjacent infiltrate or basilar atelectasis. No other potential acute finding. Dictated on workstation # [id number] Dict: 09/22/18 1724 Trans: 09/22/18 1733 [facility] [id number] Interpreted by: KIMBERLY HELM (REY CAMPBELL MD) Departure Impression Primary Impression: Acute and chronic respiratory failure with hypoxia Additional Impressions: Right lower lobe pneumonia Qualified Codes: J18.1 - Lobar pneumonia, unspecified organism COPD exacerbation Disposition: XF [facility] Condition: Improved Transfer Time Spoke to Accepting Phy: 18:04 Transfer Progress Notes Patient accepted by Dr. Ann at [facility] in [place]. Transfer Facility: [facility] Method of Transfer: EMS (REY CAMPBELL MD) Transfer Time: 19:50 (AJ WETZEL) Departure-Patient Inst. Referrals: [facility] (PCP/Family) Primary Care Physician REY CAMPBELL MD Sep 22, 2018 17:38 AJ WETZEL Sep 22, 2018 19:52
[2018-09-22 17:50] LABS: BACTERIA,URINE NEGATIVE /HPF; RBC,URINE 0-2 /HPF
[2018-09-22] MEDS ORDERED: PIPERACILLIN/TAZOBACTAM (BULK) 4.5 GM in NS (IVPB) 100 ML IV ONE (18:00)
--- NOTE | 2018-09-22 18:58 | NUR ---
REPORT GIVEN TO TAMANNA MARQUEZ @ [facility].
[2018-09-22] MEDS ORDERED: NS IV 1000 ML 1,000 ML ONE (19:29)
[2018-09-22] MEDS ORDERED: NS IV 1000 ML 1,000 ML IV SCH (19:30)
[2018-09-22 19:51] VITALS: BP 100/73
== END 2018-09-22 19:52 | disposition short-term general hospital (02) ==
LOC: EDUNIT# 16:29 → ER 16:32
DX: J18.1 Lobar pneumonia, unspecified organism (principal); J44.1 Chronic obstructive pulmonary disease with (acute) exacerbation; J96.21 Acute and chronic respiratory failure with hypoxia; E03.9 Hypothyroidism, unspecified; E11.9 Type 2 diabetes mellitus without complications; F41.9 Anxiety disorder, unspecified; F32.9 Major depressive disorder, single episode, unspecified; F17.210 Nicotine dependence, cigarettes, uncomplicated; Z79.51 Long term (current) use of inhaled steroids; Z79.84 Long term (current) use of oral hypoglycemic drugs; Z79.52 Long term (current) use of systemic steroids
CPT/HCPCS: 36415; 71045; 80053; 81000; 83605; 83880; 85025; 85610; 85730; 86141; 87040; 87088; 87804

== ENCOUNTER 2018-10-30 20:21 | Inpatient (IN) | payer MEDICAID ==
[2018-10-30] VITALS (8 sets, daily range): BP systolic 99–134; BP diastolic 68–78
[~2018-10-30] VITALS: Ht 167.6 cm; Wt 95.4 kg
[2018-10-30] MEDS ORDERED: RT-ALBUTEROL SULF 2.5 MG/3 ML PRE-MIX VIAL ONE (20:26)
[2018-10-30] MEDS ORDERED: RT-IPRATROPIUM (ATROVENT) 0.5MG/2.5ML AMP IH ONE (20:26)
--- OUTSIDE RECORDS SUMMARY | 2018-10-30 20:29 | XMS REPORT ---
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 75898502 Problem Recurrent major depressive disorder, in full remission F33.42 Active 290553594 Problem [facility] current use of insulin Z79.4 Active 027209683 Problem Tobacco abuse Z72.0 Active 749252497 Problem Hyperlipidemia LDL goal <70 E78.5 Active 10809439 Problem Gastroesophageal reflux disease without esophagitis K21.9 Active 543726743 Problem Morbid (severe) obesity due to excess calories E66.01 Active 578628315 Problem Essential hypertension I10 Active 91144953 Problem Type 2 diabetes mellitus with other specified complication E11.69 Active 04962229 Problem Tobacco abuse counseling Z71.6 Active 394589884 Problem Body mass index (BMI) of 39.0-39.9 in adult Z68.39 Active 352590605 Problem Seasonal allergic rhinitis due to pollen J30.1 Active 26842958 ALLERGIES No Information ENCOUNTERS Encounter Location Date Diagnosis [facility] [address] [facility] [id number] [address] Oct, [facility] [id number] [place] [address] 98441- 1461 Sep, 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 ; On home oxygen therapy Z99.81 and Hypothyroidism E03.9 [facility] [id number] [place] [address] 88575- 7646 Sep, [facility] [id number] [place] [address] 60654- 1468 Sep, [facility] [id number] [place] [address] 45394- 6861 Sep, Acute on chronic respiratory failure with hypoxia J96.21 ; Hypothyroidism E03.9 ; 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 ; Essential hypertension I10 ; Type 2 diabetes mellitus with other specified complication E11.69 ; [facility] current use of insulin Z79.4 and Hyperlipidemia LDL goal <70 E78.5 [facility] [id number] [place] [address] 80881- 3966 Sep, Allergic rhinitis J30.9 [facility] [id number] [place] [address] 08531- 2289 Aug, Allergic rhinitis J30.9 [facility] [id number] [place] [address] 49707- 1854 Aug, [facility] [id number] [place] [address] 57186- 2137 Aug, [facility] [id number] [place] [address] 25502- 6149 Aug, [facility] [id number] [place] [address] 70184- 8051 Jul, [facility] [id number] [place] [address] 51754- 5154 Jul, Type 2 diabetes mellitus with other specified complication E11.69 [facility] [id number] [place] [address] 96603- 9290 Jun, [facility] [id number] [place] [address] 55857- 6141 May, Hyperlipidemia LDL goal <70 E78.5 ; 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 and Encounter for immunization Z23 [facility] [address] 04768- 2364 May, [facility] [address] [address] May, Acute upper respiratory infection J06.9 [facility] [address] [address] 9463 May, Essential hypertension I10 [facility] [id number] [place] [address] 57898- 6164 May, Essential hypertension I10 [facility] [id number] [place] [address] 95685- 1163 Apr, Essential hypertension I10 [facility] [id number] [place] [address] 73407- 7532 Apr, [facility] [id number] [place] [address] 60088- 6854 Apr, 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 [facility] [id number] [place] [address] 50844- 4035 Apr, [facility] [id number] [place] [address] 93481- 6846 Mar, [facility] [address] [address] 77[address] Feb, Type 2 diabetes mellitus with other specified complication E11.69 ; [employer] current use of insulin Z79.4 ; Essential hypertension I10 ; Hyperlipidemia LDL goal <70 E78.5 ; COPD (chronic obstructive pulmonary disease ) with 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 ; Microcytic anemia D50.9 ; Morbid (severe) obesity due to excess calories E66.01 ; Body mass index (BMI) of 39.0-39.9 in adult Z68.39 ; Hypothyroidism E03.9 and Seasonal allergic rhinitis due to pollen J30.1 [facility] [address] [address] November, Pneumonia of right lower lobe due to infectious organism J18.1 ; [facility] current use of insulin Z79.4 ; Type 2 diabetes mellitus with other specified complication E11.69 ; 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 ; Hypothyroidism E03.9 ; On home oxygen therapy Z99.81 ; Recurrent major depressive disorder, in full remission F33.42 ; Essential hypertension I10 ; Hyperlipidemia, unspecified hyperlipidemia type E78.5 ; Tobacco abuse counseling Z71.6 ; Tobacco abuse Z72.0 ; Gastroesophageal reflux disease without esophagitis K21.9 and Allergic rhinitis J30.9 [facility] [facility] [id number] [place] [address] 00856- 2286 November, [place] [facility] [id number] [place] [address] 82352- 6819 Sep, [facility] [id number] [place] [address] 09346- 1988 Sep, [place] [address] 00354- 2596 Sep, [place] [facility] [id number] [place] [address] 65383- 8173 Sep, [facility] [id number] [place] [address] 74091 -1182 Jul, Encounter for immunization Z23 [facility] [id number] [place] [address] 95510 -6089 Jun, Subacute maxillary sinusitis J01.00 [facility] [id number] [place] [address] 36064- 9925 May, [facility] [id number] [place] [address] 84388- 6560 May, [facility] [id number] [place] [address] 34605- 1524 07 May, 2017 Type II diabetes mellitus E11.9 ; Hypothyroidism E03.9 ; 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 ; Cough R05 ; COPD with exacerbation J44.1 and Pneumonia of right lower lobe due to infectious organism J18.1 [facility] [id number] [place] [address] 90289- 7021 Mar, Hyperlipidemia, unspecified hyperlipidemia type E78.5 [place] [facility] [address] 00237- 7020 Mar, Hypothyroidism E03.9 and Hyperlipidemia, unspecified hyperlipidemia type E78.5 [facility] [facility] [id number] [place] [address] 13423- 8869 Feb, Type II diabetes mellitus E11.9 ; Hypothyroidism E03.9 ; 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 ; Obesity due to excess calories E66.09 ; Allergic rhinitis J30.9 ; Microcytic anemia D50.9 ; Gastroesophageal reflux disease without esophagitis K21.9 ; Essential hypertension I10 ; Hyperlipidemia, unspecified hyperlipidemia type E78.5 ; Recurrent major depressive disorder, in full remission F33.42 and Urinary incontinence R32 [facility] [id number] [place] [address] 58920- 6230 Jan, [facility] [id number] [place] [address] 21235- 9395 Jan, [facility] [id number] [place] [address] 69728- 2185 November, [facility] [id number] [place] [address] 23233- 6676 Sep, Type II diabetes mellitus E11.9 ; [...] and Tinea pedis of both feet B35.3 [place] [id number] [place] [address] 25079- 3853 Jun, [facility] [id number] [place] [address] 43655 -7242 Jun, Acute upper respiratory infection, unspecified J06.9 and Other viral agents as the cause of diseases classified elsewhere B97.89 [id number] [place] [address] 46397- 3316 May, [id number] [place] [address] 93971- 7423 May, Type 2 diabetes mellitus with hyperglycemia [...] thrush B37.0 and Encounter for immunization Z23 [id number] [place] [address] 15878- 3414 Apr, [id number] [place] [address] 90858- 6629 Apr, [address] 13318- 9997 Mar, [address] [id number] [place] [address] 05425- 1932 Dec, [id number] [place] [address] 82785- 6533 Dec, [address] [address] [id number] [place] [address] 87953- 1406 Dec, Encounter for well woman exam with routine gynecological exam Z01.419 ; Encounter for screening for malignant neoplasm of cervix Z12.4 ; Screening mammogram, encounter for Z12.31 ; Encounter for screening breast examination Z12.39 ; On home oxygen therapy Z99.81 ; 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 ; Heat rash L74.0 ; Type II diabetes mellitus E11.9 and Hypothyroidism E03.9 [address] [address] [place] [address]- 0933 November, [facility] [id number] [place] [address] 95706- 8424 November, Type II diabetes mellitus E11.9 ; Allergic rhinitis J30.9 ; Hypothyroidism E03.9 ; Obesity due to excess calories E66.09 ; Urinary incontinence R32 ; Gastroesophageal reflux disease without esophagitis K21.9 and Essential hypertension I10 [facility] [address] 51105- 1137 Oct, [facility] [address] 70501- 5415 Sep, [place] [address] 93175- 1719 Sep, [facility] [id number] [place] [address] 80976 -2790 Aug, Acute maxillary sinusitis J01.00 [facility] [id number] [place] [address] 59002- 6174 Aug, [facility] [id number] [place] [address] 43520- 0282 Aug, [facility] [id number] [place] [address] 34070- 5593 Aug, Type II diabetes mellitus E11.9 [facility] [id number] [place] [address] 43826- 4336 05 Aug, 2015 Type II diabetes mellitus E11.9 ; Hypothyroidism E03.9 ; 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 ; Obesity due to excess calories E66.09 ; Urinary incontinence R32 ; Anemia D64.9 ; Microcytic anemia D50.9 and Allergic rhinitis J30.9 [facility] [id number] [place] [address] 28338- 7819 May, Upper respiratory symptom R09.89 [facility] [id number] [place] [address] 86741- 4975 May, Oral thrush B37.0 [place] [id number] [place] [address] 76630- 6089 Apr, Hypothyroidism E03.9 and Microcytic anemia D50.9 [place] [facility] [id number] [place] [address] 06647- 9614 Apr, Encounter for long-term current use of medication Z79.899 ; Hypothyroidism E03.9 ; Microcytic anemia D50.9 ; Type 2 diabetes mellitus without complication E11.9 ; Essential hypertension I10 and Mixed incontinence N39.46 [place] [address] 11910- 0210 Apr, [place] [id number] [place] [address] 84287- 4809 Mar, [place] [address] 94979- 7186 Mar, [place] [id number] [place] [address] 09815- 9531 Mar, [place] [address] 60361- 2358 Mar, [facility] [id number] [place] [address] 99568- 4274 Mar, [place] [id number] [place] [address] 62553- 4386 Mar, [facility] [id number] [place] [address] 60628- 8285 Mar, [facility] [id number] [place] [address] 46463- 4586 Feb, Cough 786.2 ; Wheezing 786.07 ; Hypothyroidism 244.9 and Encounter for long-term current use of medication V58.69 [facility] [id number] [place] [address] 75312- 2729 13 Aug, 2015 Diabetes type 2, uncontrolled 250.02 ; Depression 311 ; Encounter for long-term current use of medication V58.69 and Hypothyroidism 244.9 [facility] [id number] [address]- 5335 Feb, [facility] [id number] [address]- 6258 Jan, [facility] [id number] [place] [address] 79658- 0730 Oct, [facility] [id number] [address]- 9913 Oct, [facility] [id number] [place] [address] 78519- 3777 Oct, [facility] [id number] [place] [address] 53896- 3348 Sep, [facility] [id number] [place] [address] 04501- 6327 Sep, [facility] [address] [address]- 5778 Sep, [facility] [address] [address]- 5546 Aug, [facility] [address] [address]- 5274 Aug, [facility] [address] [address]- 5515 Jul, [facility] [address] [address]- 8038 Jul, [facility] [address] [address]- 2534 Jul, [facility] [address] [address]- 3506 Jul, [facility] [address] [address]- 1411 Jul, [facility] [place] [facility] [address] [id number] [place] [address]- 1131 Jul, [facility] [place] [facility] [address] [id number] [place] [address]- 0250 Jul, [facility] [place] [facility] [address] [id number] [place] [address]- 5940 Jul, [facility] [place] [facility] [address] [id number] [place] [address]- 9205 Jun, [facility] [place] [facility] [address] [id number] [place] [address]- 4815 Jun, [facility] [place] [facility] [address] [id number] [place] [address]- 1966 May, [facility] [place] [facility] [address] [id number] [place] [address]- 9163 May, [facility] [place] [facility] [address] [id number] [address]- 9686 May, [facility] [place] [facility] [address] [id number] [place] [address]- 6962 Apr, [facility] [place] [facility] [address] [id number] [place] [address]- 3293 Apr, [facility] [place] [facility] [address] [id number] [place] [address]- 6035 Apr, [facility] [place] [facility] [address] [id number] [place] [address]- 1792 Apr, [facility] [place] [facility] [address] [id number] [place] [address]- 8011 Apr, [facility] [place] [facility] [address] [id number] [place] [address]- 0586 Apr, [facility] [place] [facility] [address] [id number] [place] [address]- 1100 Mar, [facility] [place] [facility] [address] [id number] [place] [address]- 7286 22 Mar, 2014 [facility] [place] [facility] [address] [id number] [place] [address]- 3026 19 Mar, 2014 [facility] [place] [facility] [address] [id number] [place] [address] 2546 19 Mar, 2014 [facility] [place] [facility] [address] [id number] [place] [address]- 5026 Sep, [facility] [place] [facility] [address] [id number] [place] [address]- 4632 Sep, [facility] [place] [facility] [address] [id number] [place] [address]- 8441 Sep, [facility] [place] [facility] [address] [id number] [place] [address]- 7553 Sep, [facility] [place] [facility] [address] [id number] [place] [address]- 5736 Aug, [facility] [place] [facility] [address] [id number] [place] [address]- 1437 Aug, [facility] [place] [facility] [address] [id number] [place] [address]- 3299 Aug, [facility] [place] [facility] [address] [facility] [id number] [place] [address]- 1258 Aug, [facility] [place] [facility] [address] [id number] [place] [address]- 3621 Aug, [facility] [place] [facility] [address] [id number] [place] [address]- 4087 Aug, [facility] [place] [facility] [address] [id number] [place] [address]- 9927 Jul, [facility] [place] [facility] [address] [id number] [place] [address]- 0986 Jul, [facility] [place] [facility] [address] [id number] [place] [address]- 1019 Jul, [facility] [place] [facility] [address] [id number] [place] [address]- 8433 Jul, [facility] [place] [facility] [address] [id number] [place] [address]- 3481 Jun, [facility] [place] [facility] [address] [id number] [place] [address]- 7080 Jun, [facility] [place] [facility] [address] [id number] [place] [address]- 8440 May, [facility] [place] [facility] [address] [id number] [place] [address]- 8011 May, [facility] [place] [facility] [address] [id number] [place] [address]- 7188 Apr, [facility] [place] [facility] [address] [id number] [place] [address]- 5057 Apr, [facility] [place] [facility] [address] [id number] [place] [address]- 6273 Apr, [facility] [place] [facility] [address] [id number] [place] [address]- 9665 Mar, [facility] [place] [facility] [address] [id number] [place] [address]- 9457 Mar, [facility] [place] [facility] [address] [id number] [place] [address]- 2416 Mar, [facility] [place] [facility] [address] [id number] [place] [address]- 7916 Mar, [facility] [place] [facility] [address] [id number] [place] [address]- 3990 Feb, [facility] [place] [facility] [address] [id number] [place] [address]- 8588 Jan, [facility] [place] [facility] [address] [id number] [place] [address]- 9117 Jan, [facility] [place] [facility] [address] [id number] [place] [address]- 5352 Jan, [facility] [address] [id number] [place] [address]- 7121 Jan, [facility] [address] [id number] [place] [address]- 2515 Dec, [facility] [address] [id number] [place] [address]- 8361 Dec, [facility] [place] [facility] [address] [id number] [place] [address]- 8913 Dec, [facility] [address] [id number] [place] [address]- 1788 Dec, [facility] [address] [id number] [place] [address]- 8525 Dec, [facility] [address] [id number] [place] [address]- 2570 Dec, [facility] [address] [id number] [place] [address]- 5939 November, [facility] [address] [id number] [place] [address]- 2192 November, [facility] [address] [id number] [place] [address]- 3372 November, [facility] [address] [id number] [place] [address]- 2240 Oct, [facility] [place] [facility] [address] [id number] [place] [address]- 4303 Oct, [facility] [place] [facility] [address] [id number] [place] [address]- 4622 Sep, [facility] [place] [facility] [address] [id number] [place] [address]- 1165 Sep, [facility] [place] [facility] [address] [id number] [place] [address]- 1330 Sep, [facility] [place] [facility] [address] [id number] [place] [address]- 8150 Sep, [facility] [place] [facility] [address] [id number] [place] [address]- 6708 Sep, [facility] [place] [facility] [address] [id number] [place] [address]- 1716 Aug, [facility] [place] [facility] [address] [id number] [place] [address]- 8296 Aug, [facility] [place] [facility] [address] [id number] [place] [address]- 3204 Aug, [facility] [place] [facility] [address] [id number] [place] [address]- 4296 Aug, [facility] [place] [facility] [address] [id number] [place] [address]- 0726 Aug, [facility] [place] [facility] [address] [id number] [place] [address]- 4563 Jul, [facility] [place] [facility] [address] [id number] [place] [address]- 1676 Jul, [facility] [place] [facility] [address] [facility] [id number] [place] [address]- 9343 Jun, [facility] [place] [facility] [address] [id number] [place] [address]- 7782 Jun, [facility] [place] [facility] [address] [id number] [place] [address] 18 Jun, 2012 [facility] [place] [facility] [address] [id number] [place] [address] 18 Jun, 2012 [facility] [place] [facility] [address] [id number] [place] [address] Jun, [facility] [place] [facility] [address] [id number] [place] [address] 10 Jun, 2012 [facility] [place] [facility] [address] [id number] [place] [address] Jun, [facility] [place] [facility] [address] [id number] [place] [address] Jun, [facility] [place] [facility] [address] [facility] [id number] [place] [address] Jun, [facility] [place] [facility] [address] [facility] [id number] [place] [address] May, [facility] [place] [facility] [address] [id number] [place] [address] May, [facility] [place] [facility] [address] [facility] [id number] [place] [address], [place] [address] May, [facility] [place] [facility] [address] [facility] [id number] [place] [address] May, [facility] [place] [facility] [id number] [address] May, [facility] [place] [facility] [address] [facility] [id number] [place] [address] May, [facility] [place] [facility] [address] [id number] [place] [address] May, [facility] [place] [facility] [address] [id number] [address] Apr, [facility] [place] [facility] [address] [facility] [id number] [place] [address] Mar, [facility] [place] [facility] [address] [id number] [place] [address] Mar, [facility] [place] [facility] [address] [id number] [place] [address] Feb, [facility] [place] [facility] [address] [facility] [id number] [place] [address] Feb, [facility] [place] [facility] [address] [id number] [address] Feb, [facility] [place] [facility] [address] [id number] [place] [address] Feb, [facility] [place] [facility] [address] [id number] [place] [address] Jan, [facility] [place] [facility] [address] [id number] [place] [address] Jan, [facility] [place] [facility] [address] [id number] [place] [address] Jan, [facility] [place] [facility] [address] [id number] [place] [address] Jan, [facility] [place] [facility] [address] [id number] [place] [address] Dec, [facility] [place] [facility] [address] [id number] [place] [address] Dec, [facility] [place] [facility] [address] [id number] [place] [address] Dec, [facility] [place] [facility] [address] [id number] [place] [address] Dec, [facility] [place] [facility] [address] [id number] [place] [address] Dec, [facility] [place] [facility] [address] [id number] [place] [address] Sep, [facility] [place] [facility] [address] [id number] [place] [address] Aug, [facility] [place] [facility] [address] [id number] [place] [address] Jul, [facility] [place] [facility] [address] [id number] [place] [address] 16 Jun, 2011 [facility] [place] [facility] [address] [id number] [place] [address] Jun, [facility] [place] [facility] [address] [id number] [place] [address] Jun, [facility] [address] [facility] [id number] [place] [address] Jun, [facility] [address] [id number] [address] May, [facility] [address] [facility] [id number] [address] May, [facility] [address] [id number] [address] Apr, [facility] [address] [facility] [id number] [address] Jun, [facility] [address] [facility] [id number] [place] [address] Apr, IMMUNIZATIONS No Known Immunizations SOCIAL HISTORY Never Assessed REASON FOR VISIT EMR-[facility] [place] PLAN OF CARE VITAL SIGNS MEDICATIONS Unknown Medications RESULTS No Results PROCEDURES No Known procedures INSTRUCTIONS MEDICATIONS ADMINISTERED No Known Medications MEDICAL (GENERAL) HISTORY Type Description Date Medical History hypertension Medical History Hypothyroidism Medical History chronic obstructive pulmonary disease (COPD) Medical History obesity Medical History type II diabetes Medical History insomnia Medical History sleep apnea Medical History oxygen dependent Medical History mood disorder Surgical History cholecystectomy Hospitalization History decreased oxygen level 11/2017 Hospitalization History pneumonia 10/07
--- OUTSIDE RECORDS SUMMARY | 2018-10-30 20:29 | XMS REPORT ---
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 48876836 Problem Recurrent major depressive disorder, in full remission F33.42 Active 896434879 Problem longterm current use of insulin Z79.4 Active 091675877 Problem Tobacco abuse Z72.0 Active 536629686 Problem Hyperlipidemia LDL goal <70 E78.5 Active 73659498 Problem Gastroesophageal reflux disease without esophagitis K21.9 Active 687927294 Problem Morbid (severe) obesity due to excess calories E66.01 Active 879744634 Problem Essential hypertension I10 Active 30583018 Problem Type 2 diabetes mellitus with other specified complication E11.69 Active 79047377 Problem Tobacco abuse counseling Z71.6 Active 526516831 Problem Body mass index (BMI) of 39.0-39.9 in adult Z68.39 Active 309343235 Problem Seasonal allergic rhinitis due to pollen J30.1 Active 31495899 ALLERGIES No Information ENCOUNTERS Encounter Location Date Diagnosis 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 [id number] [address] Sep, [facility] [address] [address] Sep, 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 [address] [address]- [address]286 Sep, Allergic rhinitis J30.9 [facility] [id number] [place] [address] 01270- 1597 Aug, Allergic rhinitis J30.9 [facility] [id number] [place] [address] 24623- 3822 Aug, [facility] [address] [address]- 1323 Aug, [facility] [id number] [place] [address] 64208- 9180 Aug, [facility] [address] [address]- [address]239 Jul, [facility] [id number] [place] [address] 25126- 6297 Jul, Type 2 diabetes mellitus with other specified complication E11.69 [facility] [id number] [place] [address] 66489- 4231 Jun, 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 [id number] [place] [address] 94774- 4773 May, [facility] [address] [address] May, Acute upper respiratory infection J06.9 [address] [address] 6268 May, Essential hypertension I10 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 [facility] [facility] [id number] [place] [address] 38195- 9738 Apr, [address] [id number] [place] [address] 29638- 9690 Mar, [address] [place] [id number] [place] [address] 02923- 5128 Feb, Type 2 diabetes mellitus with other specified complication E11.69 ; longterm current use of insulin Z79.4 ; Essential hypertension I10 ; Hyperlipidemia LDL goal <70 E78.5 ; COPD (chronic obstructive pulmonary disease ) with 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 ; Microcytic anemia D50.9 ; Morbid (severe) obesity due to excess calories E66.01 ; Body mass index (BMI) of 39.0-39.9 in adult Z68.39 ; Hypothyroidism E03.9 and Seasonal allergic rhinitis due to pollen J30.1 [address] [id number] [place] [address] 55393- 0501 November, Pneumonia of right lower lobe due to infectious organism J18.1 ; longterm current use of insulin Z79.4 ; Type [...] without esophagitis K21.9 [address] [facility] [id number] [place] [address] 10242- 1920 November, [facility] [address] [address]6054- [address]205 Sep, [facility] [address] 82160- 5543 Sep, [address] [place] 07321- 3986 Sep, [address] [place] [address] 49097- 3668 Sep, [facility] [address] 38709 -7440 Jul, Encounter for immunization Z23 [facility] [address] 32762 -2512 Jun, Subacute maxillary sinusitis J01.00 [address] [place] [id number] [place] [address] 15619- 1448 May, [address] [facility] [address] 90647- 8276 May, [address] [place] [id number] [place] [address] 21249- 2918 07 May, 2017 Type II diabetes mellitus E11.9 ; Hypothyroidism E03.9 ; 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 [id number] [place] [address] 83919- 0169 08 Mar, 2017 Hyperlipidemia, unspecified hyperlipidemia type E78.5 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 [id number] [place] [address] 49784- 3428 November, [address] [id number] [place] [address] 31428- 5132 Sep, Type II diabetes mellitus E11.9 ; [...] and Tinea pedis of both feet B35.3 [facility] [id number] [place] [address] 04384- 9718 Jun, [facility] [address] [place] [address] 97893 -9908 Jun, Acute upper respiratory infection, unspecified J06.9 and Other viral agents as the cause of diseases classified elsewhere B97.89 [id number] [place] [address] 49432- 8444 May, [address] [address]47- 9157 May, Type 2 diabetes mellitus with hyperglycemia [...] thrush B37.0 and Encounter for immunization Z23 [id number] [place] [address] 53079- 3659 Apr, [address] 58398- 9140 Apr, [address] 08848- 7535 Mar, [address] 55399- 0545 Dec, [id number] [place] [address] 35753- 7252 Dec, [id number] [place] [address] 79312- 4609 Dec, Encounter for well woman exam with routine gynecological exam Z01.419 ; Encounter for screening for malignant neoplasm of cervix Z12.4 ; Screening mammogram, encounter for Z12.31 ; Encounter for screening breast examination Z12.39 ; On home oxygen therapy Z99.81 ; 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 [id number] [place] [address] 35762- 7263 Oct, [facility] [address] 48957- [address]13 Sep, [facility] [address] 23465- 7207 Sep, [facility] [address] 28035 -3988 Aug, Acute maxillary sinusitis J01.00 [address] 15585- 5858 Aug, 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 ; Obesity due to excess calories E66.09 ; Urinary incontinence R32 ; Anemia D64.9 ; Microcytic anemia D50.9 and Allergic rhinitis J30.9 [address] 01365- 1569 May, Upper respiratory symptom R09.89 [address] [id number] [place] [address] 02325- 7288 09 May, 2015 Oral thrush B37.0 [address] [id number] [place] [address] 02937- 6602 Apr, Hypothyroidism E03.9 and Microcytic anemia D50.9 [address] [place] [id number] [place] [address] 97855- 7904 Apr, Encounter for long-term current use of medication Z79.899 ; Hypothyroidism E03.9 ; Microcytic anemia D50.9 ; Type 2 diabetes mellitus without complication E11.9 ; Essential hypertension I10 and Mixed incontinence N39.46 [address] [place] [id number] [place] [address] 76639- 3468 Apr, [address] [id number] [place] [address] 04511- 9733 Mar, [address] [id number] [place] [address] 40843- 3228 Mar, [address] [id number] [place] [address] 30464- 2006 Mar, [address] [id number] [place] [address] 26121- 7529 Mar, [address] [id number] [place] [address] 29293- 9408 Mar, [address] [id number] [place] [address] 59244- 0390 Mar, [address] [id number] [place] [address] 10420- 2999 Mar, [id number] [place] [address] 10423- 7751 Feb, Cough 786.2 ; Wheezing 786.07 ; Hypothyroidism 244.9 and Encounter for long-term current use of medication V58.69 [address] [id number] [place] [address] 95624- 3153 Feb, Diabetes type 2, uncontrolled 250.02 ; Depression 311 ; Encounter for long-term current use of medication V58.69 and Hypothyroidism 244.9 [address] [id number] [place] [address]- 1883 Feb, [facility] [place] [facility] [address] [id number] [place] [address]- 2106 Jan, [facility] [place] [facility] [address] [id number] [place] [address]- 0077 Oct, [facility] [place] [facility] [address] [id number] [place] [address]- 7796 Oct, [facility] [place] [facility] [address] [id number] [place] [address]- 0179 Oct, [facility] [place] [facility] [address] [id number] [place] [address]- 8005 Sep, [facility] [place] [facility] [address] [id number] [place] [address]- 8735 Sep, [facility] [place] [facility] [address] [id number] [place] [address]- 6132 Sep, [facility] [place] [facility] [address] [id number] [place] [address]- 0215 Aug, [facility] [place] [facility] [address] [id number] [place] [address]- 1857 Aug, [facility] [place] [facility] [address] [id number] [place] [address]- 2299 Jul, [facility] [place] [facility] [address] [id number] [place] [address]- 4754 Jul, [facility] [place] [facility] [address] [id number] [place] [address]- 9038 Jul, [facility] [place] [facility] [address] [id number] [place] [address]- 5076 Jul, [facility] [place] [facility] [address] [id number] [place] [address]- 3736 Jul, [facility] [place] [facility] [address] [id number] [place] [address]- 6075 Jul, [facility] [place] [facility] [address] [id number] [place] [address]- 3511 Jul, [facility] [place] [facility] [address] [id number] [place] [address]- 5657 Jul, [facility] [place] [facility] [address] [id number] [place] [address]- 3848 Jun, [facility] [place] [facility] [address] [id number] [place] [address]- 0483 Jun, [facility] [place] [facility] [address] [id number] [place] [address]- 2317 May, [facility] [place] [facility] [address] [id number] [place] [address]- 8064 May, [facility] [place] [facility] [address] [id number] [place] [address]- 0151 May, [facility] [place] [facility] [address] [id number] [address]- 4317 Apr, [facility] [place] [facility] [address] [id number] [place] [address]- 7570 Apr, [facility] [place] [facility] [address] [id number] [place] [address]- 9233 Apr, [facility] [place] [facility] [address] [id number] [address]- 3279 Apr, [facility] [place] [facility] [address] [id number] [address]- 6263 Apr, [facility] [place] [facility] [address] [id number] [place] 0660 Apr, [facility] [place] [facility] [address] [id number] [address]- 3716 Mar, [facility] [place] [facility] [address] [id number] [place] 0419 Mar, [facility] [place] [facility] [address] [id number] [place] [address]- 6086 19 Mar, 2014 [facility] [place] [facility] [address] [id number] [place] [address]- 0986 Mar, [facility] [place] [facility] [address] [id number] [place] [address]- 4366 Sep, [facility] [place] [facility] [address] [id number] [place] [address]- 0116 Sep, [facility] [place] [facility] [address] [id number] [place] [address]- 0671 Sep, [facility] [place] [facility] [address] [id number] [place] [address]- 3987 Sep, [facility] [place] [facility] [address] [id number] [place] [address]- 5457 Aug, [facility] [place] [facility] [address] [id number] [place] [address]- 1765 Aug, [facility] [place] [facility] [address] [id number] [place] [address]- 3441 Aug, [facility] [place] [facility] [address] [id number] [place] [address]- 8929 Aug, [facility] [place] [facility] [address] [facility] [id number] [place] [address]- 4444 Aug, [facility] [place] [facility] [address] [id number] [place] [address]- 6275 Aug, [facility] [place] [facility] [address] [id number] [place] [address]- 7812 Jul, [facility] [place] [facility] [address] [id number] [place] [address]- 1761 Jul, [facility] [place] [facility] [address] [facility] [id number] [place] [address]- 7466 Jul, [facility] [place] [facility] [address] [id number] [place] [address]- 9386 Jul, [facility] [place] [facility] [address] [id number] [place] [address]- 9262 Jun, [facility] [place] [facility] [address] [id number] [place] [address]- 9962 Jun, [facility] [place] [facility] [address] [id number] [place] [address]- 0603 May, [facility] [place] [facility] [address] [id number] [place] [address]- 8673 May, [facility] [place] [facility] [address] [id number] [place] [address]- 8828 Apr, [facility] [place] [facility] [address] [id number] [place] [address]- 5839 Apr, [facility] [place] [facility] [address] [id number] [place] [address]- 5469 Apr, [facility] [place] [facility] [address] [id number] [place] [address]- 2861 Mar, [facility] [place] [facility] [address] [id number] [place] [address]- 6406 Mar, [facility] [place] [facility] [address] [id number] [place] [address]- 8539 Mar, [facility] [place] [facility] [address] [id number] [place] [address]- 8012 Mar, [facility] [place] [facility] [address] [id number] [address]- 9689 Feb, [facility] [place] [facility] [address] [id number] [place] [address]- 6028 Jan, [facility] [place] [facility] [address] [id number] [place] [address]- 1759 Jan, [facility] [place] [facility] [address] [id number] [place] [address]- 2544 Jan, [facility] [place] [facility] [address] [id number] [place] [address]- 6699 Jan, [facility] [address] [id number] [place] [address]- 1151 Dec, [facility] [place] [facility] [address] [id number] [place] [address]- 8428 Dec, [facility] [address] [id number] [place] [address]- 0620 Dec, [facility] [place] [facility] [address] [id number] [place] [address]- 4759 Dec, [facility] [address] [id number] [place] [address]- 6532 Dec, [facility] [address] [id number] [place] [address]- 6059 Dec, [facility] [address] [id number] [place] [address]- 0284 November, [facility] [address] [id number] [place] [address]- 4241 November, [facility] [address] [id number] [place] [address]- 7241 November, [facility] [address] [id number] [place] [address]- 6083 Oct, [facility] [address] [id number] [place] [address]- 5389 Oct, [facility] [place] [facility] [address] [id number] [place] [address]- 7069 Sep, [facility] [place] [facility] [address] [id number] [place] [address]- 7996 Sep, [facility] [place] [facility] [address] [id number] [place] [address]- 0376 Sep, [facility] [place] [facility] [address] [id number] [place] [address]- 7178 Sep, [facility] [place] [facility] [address] [id number] [place] [address]- 9550 Sep, [facility] [place] [facility] [address] [id number] [place] [address]- 3848 Aug, [facility] [place] [facility] [address] [id number] [place] [address]- 7456 Aug, [facility] [place] [facility] [address] [id number] [place] [address]- 2726 Aug, [facility] [place] [facility] [address] [id number] [place] [address]- 6707 Aug, [facility] [place] [facility] [address] [id number] [place] [address]- 8076 Aug, [facility] [place] [facility] [address] [id number] [place] [address]- 7461 Jul, [facility] [place] [facility] [address] [id number] [place] [address]- 4167 Jul, [facility] [place] [facility] [address] [id number] [place] [address]- 6163 Jun, [facility] [place] [facility] [address] [id number] [place] [address]- 0622 Jun, [facility] [place] [facility] [address] [id number] [place] [address]- 7531 18 Jun, 2012 [facility] [place] [facility] [address] [id number] [address]- 2221 18 Jun, 2012 [facility] [place] [facility] [address] [id number] [place] [address] 2548 10 Jun, 2012 [facility] [place] [facility] [address] [id number] [place] [address]- 9108 10 Jun, 2012 [facility] [place] [facility] [address] [id number] [place] [address]- 7868 07 Jun, 2012 [facility] [place] [facility] [address] [id number] [address] Jun, [facility] [place] [facility] [address] [id number] [place] [address] Jun, [facility] [place] [facility] [address] [id number] [place] [address] May, [facility] [place] [facility] [address] [facility] [id number] [place] [address] May, [facility] [place] [facility] [address] [id number] [place] [address] May, [facility] [place] [facility] [address] [id number] [place] [address], [place] [address] May, [facility] [place] [facility] [address] [id number] [place] [address] May, [facility] [place] [facility] [id number] [address] May, [facility] [place] [facility] [address] [id number] [place] [address] May, [facility] [place] [facility] [address] [id number] [place] [address] Apr, [facility] [place] [facility] [address] [id number] [place] [address] Mar, [facility] [place] [facility] [address] [id number] [place] [address] Mar, [facility] [place] [facility] [address] [id number] [address] Feb, [facility] [place] [facility] [address] [id number] [place] [address] Feb, [facility] [place] [facility] [address] [facility] [id number] [address] Feb, [facility] [place] [facility] [address] [id number] [place] [address] Feb, [facility] [place] [facility] [address] [id number] [place] [address] 31 Jan, 2012 [facility] [place] [facility] [address] [id number] [place] [address]- [address] 23 Jan, 2012 [facility] [place] [facility] [address] [id number] [place] [address] 2546 Jan, [facility] [place] [facility] [address] [id number] [place] [address] 06 Jan, 2012 [facility] [place] [facility] [address] [id number] [place] [address] Dec, [facility] [place] [facility] [address] [id number] [place] [address]284 Dec, [facility] [place] [facility] [address] [id number] [place] [address]- [address]406 17 Dec, 2011 [facility] [place] [facility] [address] [id number] [place] [address] 15 Dec, 2011 [facility] [place] [facility] [address] [id number] [place] [address] Dec, [facility] [place] [facility] [address] [id number] [place] [address]- [address] Sep, [facility] [place] [facility] [address] [id number] [place] [address]686 Aug, [facility] [place] [facility] [address] [id number] [place] [address] 2546 Jul, [facility] [place] [facility] [address] [id number] [place] [address]43 16 Jun, 2011 [facility] [place] [facility] [address] [id number] [place] [address]- 2566 Jun, [facility] [place] [facility] [address] [id number] [place] [address]46 13 Jun, 2011 [facility] [place] [facility] [address] [id number] [place] [address] Jun, [facility] [address] [facility] [id number] [place] [address] May, [facility] [address] [id number] [address] May, [facility] [address] [facility] [id number] [address] Apr, [facility] [address] [facility] [id number] [place] [address] Jun, [facility] [address] [facility] [id number] [address] Apr, IMMUNIZATIONS No Known Immunizations SOCIAL HISTORY Never Assessed REASON FOR VISIT EMR-[facility] [place] PLAN OF CARE VITAL SIGNS MEDICATIONS No Known Medications RESULTS No Results PROCEDURES No Known [...]
[2018-10-30] MEDS ORDERED: NS IV 1000 ML 1,000 ML IV SCH (20:30)
[2018-10-30] MEDS ORDERED: RT-ALBUTEROL SULF 2.5 MG/3 ML PRE-MIX VIAL INH SCH (20:30)
[2018-10-30] MEDS ORDERED: methylPREDNISolone 125 MG (Solu-MEDROL) VIAL IVP ONE (20:30)
--- OUTSIDE RECORDS SUMMARY | 2018-10-30 20:30 | XMS REPORT ---
Author Author ALBERT SUN [facility] IN [facility] Address [address] [place] [address] Care Team Providers Care Systems Consultant Name Role Phone ALBERT SUN Unavailable PROBLEMS Type Condition ICD9-CM Code FVV63-NH Code Onset Dates Condition Status SNOMED Code Problem Recurrent major depressive disorder, in full remission F33.42 Active 484871192 Problem Tobacco abuse Z72.0 Active 256491311 Problem MCFP current use of insulin Z79.4 Active 976416662 Problem Morbid (severe) obesity due to excess calories E66.01 Active 963495202 Problem Hyperlipidemia LDL goal <70 E78.5 Active 13681351 Problem Tobacco abuse counseling Z71.6 Active 513756301 Problem Type 2 diabetes mellitus with other specified complication E11.69 Active 03283312 Problem Seasonal allergic rhinitis due to pollen J30.1 Active 66800663 Problem Body mass index (BMI) of 39.0-39.9 in adult Z68.39 Active 249624235 Problem Allergic rhinitis J30.9 Active 75281999 Problem Hypothyroidism E03.9 Active 03742431 Problem 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 and Encounter for immunization Z23 [facility], [place] [address], [place] [address] 19 May, 2018 [facility] IN [facility] [id number] [place] [address] 31207 -9658 May, Acute upper respiratory infection J06.9 [facility], [place] [id number] [place] [address] 82020- 0143 May, Essential hypertension I10 [facility], [place] [id number] [place] [address] 13984- 5929 May, Essential hypertension I10 [facility], [place] [id number] [place] [address] 80009- 9654 Apr, Essential hypertension I10 [facility], [place] [id number] [place] [address] 63860- 3543 Apr, [facility] [place] [id number] [place] [address] 12550- 9462 Apr, 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 [facility], [place] [id number] [place] [address] 28001- 4063 Apr, [facility], [place] [id number] [place] [address] 86816- 7138 Mar, [facility], [place] [id number] [place] [address] 47097- 7639 Feb, Type 2 diabetes mellitus with other specified complication E11.69 ; MCFP current use of insulin Z79.4 ; Essential hypertension I10 ; Hyperlipidemia LDL goal <70 E78.5 ; COPD (chronic obstructive pulmonary disease ) with 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 ; Microcytic anemia D50.9 ; Morbid (severe) obesity due to excess calories E66.01 ; Body mass index (BMI) of 39.0-39.9 in adult Z68.39 ; Hypothyroidism E03.9 and Seasonal allergic rhinitis due to pollen J30.1 [facility], [place] [address], [place] [address] November, Pneumonia of right lower lobe due to infectious organism J18.1 ; MCFP current use of insulin Z79.4 ; Type [...] without esophagitis K21.9 and Allergic rhinitis J30.9 [facility], [place] [id number] [place] [address] 44671- 3894 November, [place] [address] 94572- 5207 Sep, [place] [address] 21394- 9091 Sep, [place] [address] 35387- 1004 Sep, [facility], [place] [id number] [place] [address] 28073- 2607 Sep, [facility] [id number] [place] [address] 36319 -2637 Jul, Encounter for immunization Z23 [facility] [address] 54174 -0991 Jun, Subacute maxillary sinusitis J01.00 [facility], [place] [id number] [place] [address] 60188- 5481 May, [place] [id number] [place] [address] 38330- 0273 May, [place] [address] 43358- 4659 May, Type II diabetes mellitus E11.9 ; Hypothyroidism E03.9 ; 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 ; Cough R05 ; COPD with exacerbation J44.1 and Pneumonia of right lower lobe due to infectious organism J18.1 [place] [id number] [place] [address] 03492- 2612 Mar, Hyperlipidemia, unspecified hyperlipidemia type E78.5 [place] [id number] [place] [address] 19089- 0949 Mar, Hypothyroidism E03.9 and Hyperlipidemia, unspecified hyperlipidemia type E78.5 [place] [id number] [place] [address] 75815- 7243 Feb, Type II diabetes mellitus E11.9 ; Hypothyroidism E03.9 ; 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 ; Obesity due to excess calories E66.09 ; Allergic rhinitis J30.9 ; Microcytic anemia D50.9 ; Gastroesophageal reflux disease without esophagitis K21.9 ; Essential hypertension I10 ; Hyperlipidemia, unspecified hyperlipidemia type E78.5 ; Recurrent major depressive disorder, in full remission F33.42 and Urinary incontinence R32 [place] [id number] [place] [address] 69039- 3856 Jan, [place] [id number] [place] [address] 75826- 3622 Jan, [place] [id number] [place] [address] 11554- 1302 November, [place] [id number] [place] [address] 70481- 6598 Sep, Type II diabetes mellitus E11.9 ; [...] and Tinea pedis of both feet B35.3 [place] [id number] [place] [address] 11229- 0167 Jun, [facility] [address], [place] [address] Jun, Acute upper respiratory infection, unspecified J06.9 and Other viral agents as the cause of diseases classified elsewhere B97.89 [facility], [place] [address], [place] [address] 8502 May, [facility], [place] [id number] [place] [address] 76330- 5006 May, Type 2 diabetes mellitus with hyperglycemia [...] thrush B37.0 and Encounter for immunization Z23 [place] [address] [place] [address] 05658- 1963 Apr, [place] [id number] [place] [address] 84862- 1570 Apr, [place] [id number] [place] [address] 38093- 5023 Mar, [place] [id number] [place] [address] 13897- 2008 Dec, [place] [id number] [place] [address] 64132- 1298 Dec, [place] [address] [place] [address] 46117- 7014 Dec, Encounter for well woman exam with routine gynecological exam Z01.419 ; Encounter for screening for malignant neoplasm of cervix Z12.4 ; Screening mammogram, encounter for Z12.31 ; Encounter for screening breast examination Z12.39 ; On home oxygen therapy Z99.81 ; 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 ; Heat rash L74.0 ; Type II diabetes mellitus E11.9 and Hypothyroidism E03.9 [facility], [place] [id number] [place] [address] 13198- 2810 November, [facility], [place] [id number] [place] [address] 24856- 7873 November, Type II diabetes mellitus E11.9 ; Allergic rhinitis J30.9 ; Hypothyroidism E03.9 ; Obesity due to excess calories E66.09 ; Urinary incontinence R32 ; Gastroesophageal reflux disease without esophagitis K21.9 and Essential hypertension I10 [facility], [place] [id number] [place] [address] 68323- 2193 Oct, [facility], [place] [address] 27172- 5529 Sep, [facility], [place] [id number] [place] [address] 59627- 9679 Sep, [facility] [address] 74002 -4524 Aug, Acute maxillary sinusitis J01.00 [facility], [place] [id number] [place] [address] 40031- 3118 Aug, [facility], [place] [id number] [place] [address] 57622- 2688 Aug, [facility], [place] [id number] [place] [address] 51137- 2494 Aug, Type II diabetes mellitus E11.9 [facility], [place] [id number] [place] [address] 50494- 3706 Aug, Type II diabetes mellitus E11.9 ; Hypothyroidism E03.9 ; 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 ; Obesity due to excess calories E66.09 ; Urinary incontinence R32 ; Anemia D64.9 ; Microcytic anemia D50.9 and Allergic rhinitis J30.9 [facility], [place] [id number] [place] [address] 65697- 6227 May, Upper respiratory symptom R09.89 [place] [id number] [place] [address] 63271- 0779 May, Oral thrush B37.0 [place] [address] 85847- 2854 Apr, Hypothyroidism E03.9 and Microcytic anemia D50.9 [place] [address] 23661- 0817 Apr, Encounter for long-term current use of medication Z79.899 ; Hypothyroidism E03.9 ; Microcytic anemia D50.9 ; Type 2 diabetes mellitus without complication E11.9 ; Essential hypertension I10 and Mixed incontinence N39.46 [place] [address] 76504- 9070 Apr, [place] [address] 84312- 4876 Mar, [place] [address] 48424- 8644 Mar, [place] [address] 09409- 4879 Mar, [place] [address] 49950- 8890 Mar, [place] [address] 23372- 7763 Mar, [place] [address] 02259- 1118 Mar, [place] [address] 38703- 2965 Mar, [place] [address] 30764- 6276 Feb, Cough 786.2 ; Wheezing 786.07 ; Hypothyroidism 244.9 and Encounter for long-term current use of medication V58.69 [place] [address] [place] [address]- 2453 Feb, Diabetes type 2, uncontrolled 250.02 ; Depression 311 ; Encounter for long-term current use of medication V58.69 and Hypothyroidism 244.9 [facility], [place] [id number], [place] [address]- 1512 Feb, [facility], [place] [id number] [place] [address] 41399- 4947 Jan, [facility], [place] [id number] [place] [address] 98048- 4102 Oct, [facility], [place] [id number] [place] [address] 25154- 5770 Oct, [facility], [place] [id number] [place] [address] 60164- 8195 Oct, [facility], [place] [id number] [place] [address] 30381- 2346 Sep, [facility], [place] [id number] [place] [address] 82910- 7320 Sep, [facility], [place] [id number] [place] [address] 84348- 0137 Sep, [facility], [place] [id number] [address]- 4561 Aug, [facility], [place] [address], [place] [address]- 1181 Aug, [facility], [place] [address], [place] [address]- 7033 Jul, [facility], [place] [id number] [place] [address] 83465- 0025 Jul, [facility], [place] [id number], [place] [address]- 2520 Jul, [facility], [place] [address], [place] [address]- 3106 Jul, [facility] [place] [facility] [address] [id number] [place] [address]- 1998 Jul, [facility] [place] [facility] [address] [id number] [place] 1145 Jul, [facility] [place] [facility] [address] [id number] [place] [address]- 5163 Jul, [facility] [place] [facility] [address] [id number] [place] [address]- 7758 Jul, [facility] [place] [facility] [address] [id number] [place] [address]- 7351 Jun, [facility] [place] [facility] [address] [id number] [place] [address]- 1675 Jun, [facility] [place] [facility] [address] [id number] [place] [address]- 2657 May, [facility] [place] [facility] [address] [id number] [place] [address]- 8580 May, [facility] [place] [facility] [address] [id number] [place] [address]- 3808 May, [facility] [place] [facility] [address] [id number] [place] [address]- 4494 Apr, [facility] [place] [facility] [address] [id number] [place] [address]- 3414 Apr, [facility] [place] [facility] [address] [id number] [place] [address]- 5228 Apr, [facility] [place] [facility] [address] [id number] [place] [address]- 0965 Apr, [facility] [place] [facility] [address] [id number] [place] 4912 Apr, [facility] [place] [facility] [address] [id number] [place] 1209 Apr, [facility] [place] [facility] [address] [id number] [place] [address]- 2738 Mar, [facility] [place] [facility] [address] [id number] [place] [address]- 0636 Mar, [facility] [place] [facility] [address] [id number] [place] [address]- 9156 Mar, [facility] [place] [facility] [address] [facility] [id number] [place] [address]- 5466 Mar, [facility] [place] [facility] [address] [id number] [place] [address]- 7058 Sep, [facility] [place] [facility] [address] [id number] [place] [address]- 0175 Sep, [facility] [place] [facility] [address] [id number] [place] [address]- 8302 Sep, [facility] [place] [facility] [address] [facility] [id number] [place] [address]- 0276 Sep, [facility] [place] [facility] [address] [id number] [place] [address]- 8421 Aug, [facility] [place] [facility] [address] [id number] [place] [address]- 4529 Aug, [facility] [place] [facility] [address] [facility] [id number] [place] [address]- 9057 Aug, [facility] [place] [facility] [address] [id number] [place] [address]- 0096 Aug, [facility] [place] [facility] [address] [id number], [place] [address]- 0174 Aug, [facility] [place] [facility] [address] [id number] [place] [address]- 6633 Aug, [facility] [place] [facility] [address] [facility] [id number] [place] [address]- 4499 Jul, [facility] [place] [facility] [address] [facility] [id number] [place] [address]- 3086 Jul, [facility] [place] [facility] [address] [id number] [place] [address]- 9381 08 Jul, 2013 [facility] [place] [facility] [address] [id number] [place] [address]- 5883 Jul, [facility] [place] [facility] [address] [id number] [place] [address]- 4298 Jun, [facility] [place] [facility] [address] [id number] [place] [address]- 8445 Jun, [facility] [place] [facility] [address] [id number] [place] [address]- 3579 May, [facility] [place] [facility] [address] [id number] [place] [address]- 9278 May, [facility] [place] [facility] [address] [id number] [place] [address]- 4669 Apr, [facility] [place] [facility] [address] [id number] [place] [address]- 8916 Apr, [facility] [place] [facility] [address] [id number] [place] [address]- 8072 Apr, [facility] [place] [facility] [address] [id number] [place] [address]- 5147 Mar, [facility] [place] [facility] [address] [id number] [place] [address]- 9567 Mar, [facility] [place] [facility] [address] [id number] [place] [address]- 2874 Mar, [facility] [place] [facility] [address] [id number] [place] [address]- 1860 Mar, [facility] [place] [facility] [address] [id number] [place] [address]- 2546 Feb, [facility] [place] [facility] [address] [id number] [place] [address]- 2546 Jan, [facility] [place] [facility] [address] [id number] [place] [address]- 2403 Jan, [facility] [address] [id number] [place] [address]- 8307 Jan, [facility] [place] [facility] [address] [id number] [place] [address]- 1815 Jan, [facility] [place] [facility] [address] [id number] [place] [address]- 9428 Dec, [facility] [place] [facility] [address] [id number] [place] [address]- 6380 Dec, [facility] [place] [facility] [address] [id number] [place] [address]- 6307 Dec, [facility] [place] [facility] [address] [id number] [place] [address]- 4436 Dec, [facility] [place] [facility] [address] [id number] [place] [address]- 3766 Dec, [facility] [place] [facility] [address] [id number] [place] [address]- 7708 Dec, [facility] [place] [facility] [address] [id number] [place] [address]- 8130 November, [facility] [place] [facility] [address] [id number] [place] [address]- 2045 November, [facility] [place] [facility] [address] [id number] [place] [address]- 0648 November, [facility] [place] [facility] [address] [id number], [place] [address]- 0308 Oct, [facility] [place] [facility] [address] [id number] [place] [address]- 9464 Oct, [facility] [place] [facility] [address] [id number] [place] [address]- 5744 Sep, [facility] [place] [facility] [address] [id number] [place] [address]- 8470 Sep, [facility] [place] [facility] [address] [id number] [place] [address]- 6761 04 Sep, 2012 [facility] [address] [id number] [place] [address]- 1668 Sep, [facility] [place] [facility] [address] [id number] [place] [address]- 3246 Sep, [facility] [address] [id number] [place] [address]- 9006 Aug, [facility] [place] [facility] [address] [id number] [place] [address] 2546 Aug, [facility] [address] [id number] [place] [address]- 3676 Aug, [facility] [address] [id number] [place] [address]- 4226 Aug, [facility] [address] [facility] [id number] [place] [address]- 9987 Aug, [facility] [address] [id number] [place] [address]- 8126 Jul, [facility] [address] [facility] [id number] [place] [address]- 6320 Jul, [facility] [address] [facility] [id number] [place] [address]- 4558 Jun, [facility] [address] [id number] [place] [address] 2546 Jun, [facility] [address] [id number] [place] [address] 2546 18 Jun, 2012 [facility] [place] [facility] [address] [id number] [place] [address]- 5066 18 Jun, 2012 [facility] [place] [facility] [address] [id number] [place] [address] 2546 Jun, [facility] [address] [facility] [id number] [place] [address]- 1336 Jun, [facility] [place] [facility] [address] [id number] [place] [address]- 3994 Jun, [facility] [place] [facility] [address] [id number] [place] [address] Jun, [facility] [place] [facility] [address] [id number] [place] [address] Jun, [facility] [place] [facility] [address] [id number] [place] [address] May, [facility] [place] [facility] [address] [id number] [place] [address] May, [facility] [place] [facility] [address] [id number] [place] [address] May, [facility] [place] [facility] [address] [id number] [place] [address] May, [facility] [place] [facility] [address] [id number] [place] [address] May, [facility] [place] [facility] [address] [id number] [place] [address] May, [facility] [place] [facility] [address] [facility] [id number], [place] [address] May, [facility] [place] [facility] [address] [id number], [place] [address] Apr, [facility] [place] [facility] [address] [id number], [place] [address] Mar, [facility] [place] [facility] [address] [id number], [place] [address] Mar, [facility] [place] [facility] [address] [id number], [place] [address] Feb, [facility] [place] [facility] [address] [id number], [place] [address] Feb, [facility] [place] [facility] [address] [id number], [place] [address] Feb, [facility] [address] [id number] [place] [address] Feb, [facility] [place] [facility] [address] [id number] [place] [address] Jan, [facility] [place] [facility] [address] [id number] [place] [address] Jan, [facility] [place] [facility] [address] [id number] [place] [address] Jan, [facility] [place] [facility] [address] [id number] [place] [address] Jan, [facility] [place] [facility] [address] [id number] [place] [address] Dec, [facility] [place] [facility] [address] [id number] [address] Dec, [facility] [place] [facility] [address] [id number] [place] [address] Dec, [facility] [place] [facility] [address] [id number] [place] [address] Dec, [facility] [place] [facility] [address] [facility] [id number] [place] [address] Dec, [facility] [place] [facility] [address] [id number] [place] [address] Sep, [facility] [place] [facility] [address] [id number] [place] [address] Aug, [facility] [place] [facility] [address] [id number] [place] [address] Jul, [facility] [place] [facility] [address] [id number] [place] [address] Jun, [facility] [place] [facility] [address] [facility] [id number] [place] [address] Jun, [facility] [place] [facility] [address] [id number], [place] [address] Jun, [facility] [place] [address] [id number], [place] [address] Jun, [facility] [place] [id number], [place] [address] May, [facility] [place] [address] [id number], [place] [address] May, [facility] [place] [address] [id number], [place] [address] Apr, [facility] [place] [address] [id number], [place] [address] Jun, [facility] [place] [address] [id number], [place] [address] Apr, IMMUNIZATIONS No Known Immunizations SOCIAL HISTORY Never Assessed REASON FOR VISIT refill request PLAN OF CARE VITAL SIGNS MEDICATIONS Medication Instructions Dosage Frequency Start Date End Date Duration Status Levothyroxine Sodium 175 MCG TAKE ONE TABLET BY MOUTH IN [...]
--- OUTSIDE RECORDS SUMMARY | 2018-10-30 20:30 | XMS REPORT ---
Author Author ALBERT SUN [facility] IN [facility] Address [address] [place] [address] Care Team Providers Care Microbiology Quality Control Technician Name Role Phone ALBERT SUN Unavailable PROBLEMS Type Condition ICD9-CM Code MLT87-AT Code Onset Dates Condition Status SNOMED Code Problem Recurrent major depressive disorder, in full remission F33.42 Active 250358029 Problem Tobacco abuse Z72.0 Active 496345692 Problem care home current use of insulin Z79.4 Active 712896938 Problem Morbid (severe) obesity due to excess calories E66.01 Active 322714740 Problem Hyperlipidemia LDL goal <70 E78.5 Active 94456302 Problem Tobacco abuse counseling Z71.6 Active 257428865 Problem Type 2 diabetes mellitus with other specified complication E11.69 Active 35396506 Problem Seasonal allergic rhinitis due to pollen J30.1 Active 89555182 Problem Body mass index (BMI) of 39.0-39.9 in adult Z68.39 Active 874963031 Problem Allergic rhinitis J30.9 Active 85695041 Problem Hypothyroidism E03.9 Active 68013426 Problem 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 38121636 Problem On home oxygen therapy Z99.81 Active 493040093732 Problem Urinary incontinence R32 Active 349347977 Problem Essential hypertension I10 Active 40498720 Problem Microcytic anemia D50.9 Active 322180846 Problem Gastroesophageal reflux disease without esophagitis K21.9 Active 980029996 ALLERGIES Substance Reaction Event Type Date Status Bactrim Unknown Drug Allergy May, Active ENCOUNTERS Encounter Location Date Diagnosis [facility] [id number] [address] May, Hyperlipidemia LDL goal <70 E78.5 ; 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 and Encounter for immunization Z23 [facility] [id number] [address] May, [facility] [address] [address] May, Acute upper respiratory infection J06.9 [facility] [address] [address] May, Essential hypertension I10 [facility] [id number] [place] [address] 34592- 4013 May, Essential hypertension I10 [facility] [address] [place] [address] 74641- 4619 Apr, Essential hypertension I10 [facility] [id number] [place] [address] 09855- 8387 Apr, [facility] [id number] [place] [address] 90676- 6949 Apr, 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 [facility] [address] [address] Apr, [facility] [id number] [place] [address] 58181- 1744 Mar, [facility] [address], [place] [address] Feb, Type 2 diabetes mellitus with other specified complication E11.69 ; 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 ; Essential hypertension I10 ; Hyperlipidemia LDL goal <70 E78.5 ; COPD (chronic obstructive pulmonary disease ) with 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 ; Microcytic anemia D50.9 ; Morbid (severe) obesity due to excess calories E66.01 ; Body mass index (BMI) of 39.0-39.9 in adult Z68.39 ; Hypothyroidism E03.9 and Seasonal allergic rhinitis due to pollen J30.1 [facility] [id number] [address] November, Pneumonia of right lower lobe due to infectious organism J18.1 ; care home current use of insulin Z79.4 ; Type [...] without esophagitis K21.9 and Allergic rhinitis J30.9 [place] [address] [address]56- 6788 November, [place] [address] 39116- 5597 Sep, [place] [address] 99515- 0294 Sep, [place] [address] 00363- 9478 Sep, [place] [id number] [place] [address] 79762- 0308 Sep, [facility] [id number] [place] [address] 60803 -7196 Jul, Encounter for immunization Z23 [facility] [place] [id number] [place] [address] 82481 -9880 Jun, Subacute maxillary sinusitis J01.00 [place] [id number] [place] [address] 59638- 6137 May, [place] [id number] [place] [address] 93239- 1721 May, [place] [address] 56823- 9086 07 May, 2017 Type II diabetes mellitus E11.9 ; Hypothyroidism E03.9 ; 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 ; Cough R05 ; COPD with exacerbation J44.1 and Pneumonia of right lower lobe due to infectious organism J18.1 [place] [id number] [place] [address] 80639- 7931 Mar, Hyperlipidemia, unspecified hyperlipidemia type E78.5 [place] [id number] [place] [address] 72852- 2020 Mar, Hypothyroidism E03.9 and Hyperlipidemia, unspecified hyperlipidemia type E78.5 [place] [id number] [place] [address] 86866- 7822 Feb, Type II diabetes mellitus E11.9 ; Hypothyroidism E03.9 ; 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 ; Obesity due to excess calories E66.09 ; Allergic rhinitis J30.9 ; Microcytic anemia D50.9 ; Gastroesophageal reflux disease without esophagitis K21.9 ; Essential hypertension I10 ; Hyperlipidemia, unspecified hyperlipidemia type E78.5 ; Recurrent major depressive disorder, in full remission F33.42 and Urinary incontinence R32 [place] [id number] [place] [address] 63468- 6084 Jan, [place] [id number] [place] [address] 06834- 7891 Jan, [place] [address] 63334- 6013 November, [place] [id number] [place] [address] 58281- 2970 Sep, Type II diabetes mellitus E11.9 ; [...] and Tinea pedis of both feet B35.3 [place] [id number] [place] [address] 44622- 9439 Jun, [facility] [address] [address] Jun, Acute upper respiratory infection, unspecified J06.9 and Other viral agents as the cause of diseases classified elsewhere B97.89 [id number] [place] [address] 73710- 8972 May, [id number] [place] [address] 98115- 6696 May, Type 2 diabetes mellitus with hyperglycemia [...] thrush B37.0 and Encounter for immunization Z23 [id number] [place] [address] 80014- 0927 Apr, [id number] [place] [address] 80089- 8048 Apr, [id number] [place] [address] 32990- 9801 Mar, [id number] [place] [address] 73768- 6526 Dec, [id number] [place] [address] 61560- 7665 Dec, [id number] [place] [address] 06544- 2633 Dec, Encounter for well woman exam with routine gynecological exam Z01.419 ; Encounter for screening for malignant neoplasm of cervix Z12.4 ; Screening mammogram, encounter for Z12.31 ; Encounter for screening breast examination Z12.39 ; On home oxygen therapy Z99.81 ; 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 ; Heat rash L74.0 ; Type II diabetes mellitus E11.9 and Hypothyroidism E03.[address] [place] [address] 88763- 6771 November, [place] [address] 35544- 4256 November, Type II diabetes mellitus E11.9 ; Allergic rhinitis J30.9 ; Hypothyroidism E03.9 ; Obesity due to excess calories E66.09 ; Urinary incontinence R32 ; Gastroesophageal reflux disease without esophagitis K21.9 and Essential hypertension I10 [place] [address] 10759- 5487 Oct, [place] [address] 49853- 6121 Sep, [place] [address] 02459- 8599 Sep, [facility] [address] 80367 -6642 Aug, Acute maxillary sinusitis J01.00 [place] [id number] [place] [address] 36687- 0898 Aug, [place] [address] 98725- 1903 Aug, [place] [id number] [place] [address] 54903- 7272 Aug, Type II diabetes mellitus E11.9 [place] [id number] [place] [address] 53367- 1906 Aug, Type II diabetes mellitus E11.9 ; Hypothyroidism E03.9 ; 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 ; Obesity due to excess calories E66.09 ; Urinary incontinence R32 ; Anemia D64.9 ; Microcytic anemia D50.9 and Allergic rhinitis J30.9 [place] [id number] [place] [address] 51531- 9277 May, Upper respiratory symptom R09.89 [place] [address] 55948- 6741 May, Oral thrush B37.0 [place] [address] 49056- 1245 Apr, Hypothyroidism E03.9 and Microcytic anemia D50.9 [place] [address] 92384- 8159 Apr, Encounter for long-term current use of medication Z79.899 ; Hypothyroidism E03.9 ; Microcytic anemia D50.9 ; Type 2 diabetes mellitus without complication E11.9 ; Essential hypertension I10 and Mixed incontinence N39.46 [place] [address] 62092- 5517 Apr, [place] [address] 07962- 7956 Mar, [place] [address] 67169- 2892 Mar, [place] [address] 10031- 6786 Mar, [place] [address] 44674- 4398 Mar, [facility] [id number] [place] [address] 57414- 0247 Mar, [place] [address] 26127- 3182 Mar, [facility] [id number] [place] [address] 44506- 6032 Mar, [facility] [address] 83793- 5560 Feb, Cough 786.2 ; Wheezing 786.07 ; Hypothyroidism 244.9 and Encounter for long-term current use of medication V58.69 [facility] [address] 51157- 6986 Feb, Diabetes type 2, uncontrolled 250.02 ; Depression 311 ; Encounter for long-term current use of medication V58.69 and Hypothyroidism 244.9 [facility] [id number] [place] [address] 93922- 4135 Feb, [facility] [id number] [place] [address] 19107- 2088 Jan, [facility] [id number] [place] [address] 29540- 7966 Oct, [facility] [id number] [place] [address] 47870- 4680 Oct, [facility] [id number] [place] [address] 81170- 8957 Oct, [facility] [id number] [place] [address] 52241- 6565 Sep, [facility] [id number] [place] [address] 11254- 7555 Sep, [facility] [id number] [place] [address] 80507- 7996 Sep, [facility] [id number] [place] [address] 83658- 6239 Aug, [facility] [address] [address]- 1699 Aug, [facility] [address] [place] [address] 02101- 0778 Jul, [facility] [address] [address]- 0505 Jul, [facility] [id number] [place] [address] 47026- 5327 Jul, [facility] [address], [place] [address]- 5978 Jul, [facility] [id number] [place] [address] 35075- 0948 Jul, [facility] [place] [facility] [address] [id number] [place] [address]- 3188 Jul, [facility] [place] [facility] [address] [id number] [place] [address]- 9256 Jul, [facility] [place] [facility] [address] [id number] [place] [address]- 0346 Jul, [facility] [place] [facility] [address] [id number] [place] [address]- 0980 Jun, [facility] [place] [facility] [address] [id number] [place] [address]- 2422 Jun, [facility] [place] [facility] [address] [id number] [place] [address]- 9781 May, [facility] [place] [facility] [address] [id number] [place] [address]- 2422 May, [facility] [place] [facility] [address] [id number] [place] [address]- 0507 May, [facility] [place] [facility] [address] [id number] [place] [address]- 0407 Apr, [facility] [place] [facility] [address] [id number] [place] [address]- 1403 Apr, [facility] [place] [facility] [address] [id number] [place] [address]- 6854 Apr, [facility] [place] [facility] [address] [id number] [place] [address]- 0360 Apr, [facility] [place] [facility] [address] [id number] [place] [address]- 8777 Apr, [facility] [place] [facility] [address] [id number] [place] [address]- 6767 Apr, [facility] [place] [facility] [address] [id number] [place] [address]- 5966 Mar, [facility] [place] [facility] [address] [id number] [place] [address]- 5235 22 Mar, 2014 [facility] [place] [facility] [address] [id number] [place] [address]- 8494 Mar, [facility] [place] [facility] [address] [id number] [place] [address]- 5826 Mar, [facility] [place] [facility] [address] [id number] [place] [address]- 1135 Sep, [facility] [place] [facility] [address] [id number] [place] [address]- 4677 Sep, [facility] [place] [facility] [address] [id number] [place] [address]- 7417 Sep, [facility] [place] [facility] [address] [id number] [place] [address]- 1125 Sep, [facility] [place] [facility] [address] [id number] [place] [address]- 8378 Aug, [facility] [place] [facility] [address] [id number] [place] [address]- 4283 Aug, [facility] [place] [facility] [address] [id number] [place] [address]- 7424 Aug, [facility] [place] [facility] [address] [facility] [id number] [place] [address]- 7439 Aug, [facility] [place] [facility] [address] [id number] [place] [address]- 8631 Aug, [facility] [place] [facility] [address] [id number] [place] [address]- 6953 Aug, [facility] [place] [facility] [address] [id number] [place] [address]- 5786 Jul, [facility] [place] [facility] [address] [id number] [place] 2307 Jul, [facility] [place] [facility] [address] [id number] [place] [address]- 9692 Jul, [facility] [place] [facility] [address] [id number] [place] [address]- 1997 Jul, [facility] [place] [facility] [address] [id number] [place] [address]- 3106 Jun, [facility] [place] [facility] [address] [id number] [place] [address] 2541 Jun, [facility] [place] [facility] [address] [id number] [place] [address]- 2543 May, [facility] [place] [facility] [address] [id number] [place] [address]- 2607 May, [facility] [place] [facility] [address] [id number] [place] [address]- 3571 Apr, [facility] [place] [facility] [address] [id number] [place] [address]- 4712 Apr, [facility] [place] [facility] [address] [id number] [place] [address]- 0403 Apr, [facility] [place] [facility] [address] [id number] [place] [address]- 5404 Mar, [facility] [place] [facility] [address] [id number] [place] [address]- 5824 Mar, [facility] [place] [facility] [address] [id number] [place] [address]- 4100 Mar, [facility] [place] [facility] [address] [id number] [address]- 2543 Mar, [facility] [place] [facility] [address] [id number] [place] [address]- 2543 Feb, [facility] [place] [facility] [address] [id number] [place] [address]- 2546 Jan, [facility] [place] [facility] [address] [id number] [place] [address]- 2546 Jan, [facility] [place] [facility] [address] [id number] [place] [address]- 4255 Jan, [facility] [address] [id number] [place] [address]- 8936 Jan, [facility] [address] [id number] [place] [address]- 1366 Dec, [facility] [address] [id number] [place] [address]- 7103 Dec, [facility] [address] [id number] [place] [address]- 5355 Dec, [facility] [address] [id number] [place] [address]- 3721 Dec, [facility] [address] [id number] [place] [address]- 5370 Dec, [facility] [address] [id number] [place] [address]- 5559 Dec, [facility] [address] [id number] [place] [address]- 5471 November, [facility] [address] [id number] [place] [address]- 5652 November, [facility] [address] [id number] [place] [address]- 4223 November, [facility] [address] [id number] [place] [address]- 4329 Oct, [facility] [address] [id number] [place] [address]- 5421 Oct, [facility] [address] [id number] [place] [address]- 0038 Sep, [facility] [address] [id number] [place] [address]- 2546 Sep, [facility] [address] [id number] [place] [address]- 0042 Sep, [facility] [place] [facility] [address] [id number] [place] [address]- 4673 Sep, [facility] [place] [facility] [address] [id number] [place] [address]- 9984 Sep, [facility] [place] [facility] [address] [id number] [place] [address]- 9443 Aug, [facility] [place] [facility] [address] [id number] [place] [address]- 7641 Aug, [facility] [place] [facility] [address] [id number] [place] [address]- 2805 Aug, [facility] [place] [facility] [address] [id number] [place] [address]- 1854 Aug, [facility] [place] [facility] [address] [id number] [place] [address]- 7320 Aug, [facility] [place] [facility] [address] [id number] [place] [address]- 8380 Jul, [facility] [place] [facility] [address] [id number] [place] [address]- 2434 Jul, [facility] [place] [facility] [address] [facility] [id number] [place] [address]- 3976 Jun, [facility] [place] [facility] [address] [id number] [place] [address]- 7509 Jun, [facility] [place] [facility] [address] [id number], [place] [address]- 7636 18 Jun, 2012 [facility] [place] [facility] [address] [id number] [place] [address]- 0611 18 Jun, 2012 [facility] [place] [facility] [address] [id number] [place] [address]- 2065 Jun, [facility] [place] [facility] [address] [id number] [place] [address]- 0024 Jun, [facility] [place] [facility] [address] [id number] [place] [address]- 0182 07 Jun, 2012 [facility] [place] [facility] [address] [id number] [place] [address]- 4950 Jun, [facility] [place] [facility] [address] [id number] [place] [address]- 1776 Jun, [facility] [place] [facility] [address] [id number] [place] [address]- 4776 May, [facility] [place] [facility] [address] [id number] [place] [address]- 9545 May, [facility] [place] [facility] [address] [id number] [place] [address]- 5279 May, [facility] [place] [facility] [address] [id number] [place] [address]- 3739 May, [facility] [place] [facility] [address] [id number] [place] [address]- 7653 May, [facility] [place] [facility] [address] [id number] [place] [address]- 3472 May, [facility] [place] [facility] [address] [id number] [place] [address]- 4745 May, [facility] [place] [facility] [address] [id number] [place] [address]- 5357 Apr, [facility] [place] [facility] [address] [id number] [place] [address]- 7858 Mar, [facility] [place] [facility] [address] [id number] [place] [address]- 4904 Mar, [facility] [place] [facility] [address] [id number] [place] [address] Feb, [facility] [place] [facility] [address] [id number] [place] [address] Feb, [facility] [place] [facility] [address] [id number] [address] Feb, [facility] [place] [facility] [address] [id number] [place] [address] Feb, [facility] [place] [facility] [address] [id number] [place] [address] Jan, [facility] [place] [facility] [address] [id number] [place] [address] Jan, [facility] [place] [facility] [address] [id number] [place] [address] Jan, [facility] [place] [facility] [address] [id number] [place] [address] Jan, [facility] [place] [facility] [address] [id number] [place] [address] Dec, [facility] [place] [facility] [address] [id number] [place] [address] Dec, [facility] [place] [facility] [address] [id number] [place] [address] Dec, [facility] [place] [facility] [address] [id number] [place] [address] Dec, [facility] [place] [facility] [address] [id number] [place] [address] Dec, [facility] [place] [facility] [address] [id number] [place] [address] Sep, [facility] [place] [facility] [address] [id number] [place] [address] Aug, [facility] [place] [facility] [address] [id number] [place] [address] Jul, [facility] [place] [facility] [address] [id number] [place] [address] Jun, [facility] [place] [facility] [address] [id number] [place] [address] Jun, [facility] [place] [facility] [address] [id number], [place] [address] Jun, [facility] [address] [facility] [id number], [place] [address] Jun, [facility] [address] [facility] [id number], [place] [address] May, [facility] [address] [facility] [id number], [place] [address] May, [facility] [address] [facility] [id number], [place] [address] Apr, [facility] [address] [facility] [id number], [place] [address] Jun, [facility] [address] [facility] [id number], [place] [address] Apr, IMMUNIZATIONS Vaccine Route Administration Date Status FLULAVAL QUAD 0.5ML (6 MO & UP) 2018 IM Intramuscular Jun 11, 2018 Administered PCV 13 IM Intramuscular Jun 11, 2018 Administered SOCIAL HISTORY Never Assessed REASON FOR VISIT IPT. Pt requesting refills of pro air, fish oil, and advair. Don would like to discuss blood work previously ordered by [facility]. [facility] PLAN OF CARE Activity Details Follow Up w/ new PCP,3 Months Reason:CHM/IPT visit Pending Test LIPID PANEL Pending Test CMP Pending Test CBC Pending Test THYROID ANALYZER VITAL SIGNS Height 66 in 2018-06-11 Weight 237.8 lbs 2018-06-11 Temperature 98.1 degrees Fahrenheit 2018-06-11 Heart Rate 92 bpm 2018-06-11 Respiratory Rate 20 2018-06-11 BMI 38.38 kg/m2 2018-06-11 Blood pressure systolic 140 mmHg 2018-06-11 Blood pressure diastolic 74 mmHg 2018-06-11 MEDICATIONS Medication Instructions Dosage Frequency Start Date End Date Duration Status Metformin HCl 500 MG TAKE ONE TABLET BY MOUTH TWICE DAILY WITH MEALS Active Furosemide 40 MG TAKE ONE TABLET BY MOUTH ONCE DAILY 90 Active Spiriva HandiHaler 18 MCG Inhalation Once a day 1 capsule 24h Active GlipiZIDE 5 MG TAKE ONE TABLET BY MOUTH TWICE DAILY 90 Active Albuterol Sulfate 2.5 mg /3 mL (0.083 %) Inhalation 4 times a day 1 Each by Inhalation route 4 times a day PRN for cough and wheeze 6h Sep, Active Nystatin-Triamcinolone 343345-8.1 UNIT/GM Externally Twice a day apply thin layer to rash twice a day 12h 23 Dec, 2015 Active Levothyroxine Sodium 175 MCG TAKE ONE TABLET BY MOUTH IN THE MORNING ON AN EMPTY STOMACH WITH A FULL GLASS OF WATER 90 Active Advair Diskus 250-50 MCG/DOSE by inhalation route every 12 hours INHALE ONE PUFF BY MOUTH TWICE DAILY APPROXIMATELY 12 HOURS APART 12h 30 days Active Lisinopril 2.5 MG Orally Once a day 1 tablet 24h Active ProAir HFA 108 (90 Base) MCG/ACT Inhalation every 4 hrs 2 puffs as needed 4h 30 days Active Ipratropium-Albuterol 0.5 mg-3 mg(2.5 mg base)/3 mL Inhalation Four times a day & prn up to 6 doses 3 ml Jul, Active Albuterol Sulfate (2.5 MG/3ML) 0.083% USE ONE VIAL PER NEBULIZER FOUR TIMES DAILY NEEDED FOR COUGH AND WHEEZE 7 Active Oxybutynin Chloride ER 5 mg Orally Once a day 1 tablet 24h Apr, Jul, 30 day(s) Active Loratadine 10 MG TAKE ONE TABLET BY MOUTH ONCE DAILY 90 Active Montelukast Sodium 10 MG TAKE ONE TABLET BY MOUTH ONCE DAILY 90 Active Atorvastatin Calcium 10 MG TAKE ONE TABLET BY MOUTH ONCE DAILY 90 Active Oxygen Active Norvasc 10 mg Orally Once a day 1 tablet 1 time per day 24h Active Potassium Chloride Windy ER 10 MEQ Orally Once a day 1 tablet with food 24h Active Paroxetine HCl 40 MG TAKE ONE TABLET BY MOUTH ONCE DAILY IN THE MORNING 90 Active Flonase 50 mcg/actuation Nasally 2 spray(s) intranasally 2 times a day 1 sprays by Nasal route 2 times per day in each nostril Jun, Active Famotidine 20 MG TAKE ONE TABLET BY MOUTH TWICE DAILY 90 Active Fish Oil 1000 MG Orally Once a day 2 capsule 24h 30 days Active RESULTS No Results PROCEDURES Procedure Date Ordered Result Body Site PCV 13 Jun 11, 2018 SINGLE IMMUNIZATION ADMIN Jun 11, 2018 FLULAVAL QUAD 0.5ML (6 MO & UP) 2017Jun 11, 2018 [facility], 2018 IMMUNIZATION ADMIN, EACH ADD (please include units) Jun 11, 2018 INSTRUCTIONS MEDICATIONS ADMINISTERED No Known Medications MEDICAL [...]
--- NOTE | 2018-10-30 20:31 | ED Respiratory ---
General Chief Complaint: Respiratory Problems Stated Complaint: SOB Source: patient, EMS Exam Limitations: no limitations History of Present Illness Date Seen by Provider: Oct 30, 2018 Time Seen by Provider: 20:29 Initial Comments To ER per EMS from [facility] with reports of shortness of breath that began yesterday with an increased cough, increased shortness of breath, nasal congestion and chills. She has COPD, wears oxygen at 4 L around-the- clock. She continues to smoke about one half pack of cigarettes per day. Upon EMS arrival she is wearing a nonrebreather mask as she was given a DuoNeb at [facility] which the patient states did help quite a bit. With the nonrebreather she is at 97% but when turned back to her baseline 4 L of oxygen, her oxygen saturation drops to 86%. Timing/Duration: constant, yesterday, getting worse Severity: moderate Prior Episodes/Possible Cause: occasional episodes Associated Symptoms: cough, shortness of breath Allergies and Home Medications Allergies Coded Allergies: NKANo Known Allergies (Unverified Allergy, Mild, 05/01/09) Home Medications Albuterol Sulfate 1 Puff Puff, 2 PUFF INH Q4H PRN for SHORTNESS OF BREATH, ( Reported) Amlodipine Besylate 10 Mg Tablet, 10 MG PO DAILY, (Reported) Atorvastatin Calcium 10 Mg Tablet, 10 MG PO DAILY, (Reported) Cefdinir 300 Mg Capsule, 300 MG PO BID Prescribed by: NORMAN ALY on 11/27/17 1119 Famotidine 20 Mg Tablet, 20 MG PO BID, (Reported) Fluticasone Propionate 16 Gm [place].susp, 2 SPRAY NS DAILY, (Reported) Fluticasone/Salmeterol 1 Each Blst.w.dev, 1 PUFF INH BID, (Reported) Furosemide 40 Mg Tablet, 40 MG PO DAILY, (Reported) Ipratropium/Albuterol Sulfate 3 Ml Ampul.neb, 3 ML NEB Q4H PRN for SHORTNESS OF BREATH, (Reported) Levothyroxine Sodium 175 Mcg Tablet, 175 MCG PO DAILY, (Reported) Lisinopril 2.5 Mg Tablet, 2.5 MG PO DAILY, (Reported) Loratadine 10 Mg Tablet, 10 MG PO DAILY, (Reported) Metformin HCl 500 Mg Tablet, 500 MG PO BID, (Reported) Montelukast Sodium 10 Mg Tablet, 10 MG PO HS, (Reported) Lacey 3 Polyunsat Fatty Acids 1,000 Mg Cap, 2,000 MG PO DAILY, (Reported) TAKES 2 (1000MG) CAPSULES Paroxetine HCl 40 Mg Tablet, 40 MG PO 1500, (Reported) Potassium Chloride 10 Meq Tab.er.prt, 10 MEQ PO DAILY, (Reported) Prednisone 20 Mg Tab, 40 MG PO DAILY Prescribed by: NORMAN ALY on 11/27/17 1119 Solifenacin Succinate 5 Mg Tablet, 5 MG PO DAILY, (Reported) Tiotropium [place] 1 Inh Aerp, 1 CAP INH DAILY, (Reported) Patient Home Medication List Home Medication List Reviewed: Yes Review of Systems Review of Systems Constitutional: see HPI EENTM: see HPI Respiratory: see HPI, cough Genitourinary: no symptoms reported Musculoskeletal: no symptoms reported Skin: no symptoms reported Psychiatric/Neurological: No Symptoms Reported Hematologic/Lymphatic: No Symptoms Reported Past Jzflskl-Xortgq-Gceini Hx Patient Social History Type Used: Cigarettes 2nd Hand Smoke Exposure: Yes Recent Foreign Travel: No Contact w/Someone Who Travel: No Recent Hopitalizations: No Immunizations Up To Date Tetanus Booster (TDap): Unknown PED Vaccines UTD: No Seasonal Allergies Seasonal Allergies: Yes Past Medical History Surgeries: Yes Respiratory: Yes (chronic hypoxia) COPD Currently Using CPAP: No Currently Using BIPAP: No Cardiac: Yes Neurological: No 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 Disorders: Denies Sexually Transmitted Disease: No HIV/AIDS: No Genitourinary: No Gastrointestinal: No Musculoskeletal: No Endocrine: Yes Hypothyroidsim, Diabetes, Non-Insulin dep HEENT: No Loss of Vision: Denies Hearing Impairment: Denies Cancer: No Psychosocial: Yes Anxiety, Depression Integumentary: No Blood Disorders: No Adverse Reaction/Blood Tranf: No Physical Exam Capillary Refill : Height: 5'6.00" Weight: 250lbs. 6.4oz. [phone]; 38.9 BMI Method:Stated General Appearance: WD/WN, mild distress, other (diaphoretic) Eyes: Bilateral Eye Normal Inspection, Bilateral Eye PERRL, Bilateral Eye EOMI HEENT: PERRL/EOMI, normal ENT inspection Respiratory: decreased breath sounds (there is remarkably diminished air movement in both lung henderson), accessory muscle use Gastrointestinal: non tender, soft Neurologic/Psychiatric: alert, normal mood/affect, oriented x 3 Skin: normal color, diaphoresis Focused Exam Lactate Level 10/30/18 20:25: Lactic Acid Level Laboratory Tests Test 10/30/18 20:25 Progress/Results/Core Measures Suspected Sepsis SIRS Temperature: Pulse: Respiratory Rate: Laboratory Tests 10/30/18 20:25: White Blood Count 10.6 Blood Pressure / Mean: 10/30/18 20:25: Laboratory Tests 10/30/18 20:25: Platelet Count 352 Results/Orders Lab Results Laboratory Tests Test 10/30/18 20:25 Range/Units White Blood Count 10.6 4.3-11.0 10^3/uL Red Blood Count 4.48 4.35-5.85 10^6/uL Hemoglobin 13.4 11.5-16.0 G/DL Hematocrit 43 35-52 % Mean Corpuscular Volume 96 80-99 FL Mean Corpuscular Hemoglobin 30 25-34 PG Mean Corpuscular Hemoglobin Concent 31 L 32-36 G/DL Red Cell Distribution Width 16.3 H 10.0-14.5 % Platelet Count 352 130-400 10^3/uL Mean Platelet Volume 9.1 7.4-10.4 FL Neutrophils (%) (Auto) 83 H 42-75 % Lymphocytes (%) (Auto) 10 L 12-44 % Monocytes (%) (Auto) 6 0-12 % Eosinophils (%) (Auto) 0 0-10 % Basophils (%) (Auto) 0 0-10 % Neutrophils # (Auto) 8.8 H 1.8-7.8 X 10^3 Lymphocytes # (Auto) 1.1 1.0-4.0 X 10^3 Monocytes # (Auto) 0.7 0.0-1.0 X 10^3 Eosinophils # (Auto) 0.0 0.0-0.3 10^3/uL Basophils # (Auto) 0.0 0.0-0.1 10^3/uL My Orders Orders - ELINA BOLDEN APRN Cbc With Automated Diff (10/30/18 20:27) Comprehensive Metabolic Panel (10/30/18 20:27) Blood Culture (10/30/18 20:27) Arterial Blood Gas (10/30/18 20:27) Lactic Acid Analyzer (10/30/18 20:27) Chest 1 View, Ap/Pa Only (10/30/18 20:27) Bipap (Bilevel) Set Up (10/30/18 20:27) Methylprednisolone Sod Succ (Solu-Medrol (10/30/18 20:30) Albuterol Pre-Mix Nebs (Rt) (Proventil (10/30/18 20:30) Svn Small Volume Nebulizer (10/30/18 20:27) Ns Iv 1000 Ml (Sodium Chloride 0.9%) (10/30/18 20:30) Vital Signs/I&O Capillary Refill : Departure Communication (Admissions) 2042-initial BiPAP settings are iPAP 16 Epap8 with 50% FiO2. She was saturating 97% without so FiO2 was decreased to 40%. Impression Primary Impression: Acute and chronic respiratory failure with hypoxia Disposition: ADMITTED INPATIENT Condition: Stable Admissions Decision to Admit Reason: Admit from ER (General) Decision to Admit/Date: Oct 30, 2018 Time/Decision to Admit Time: 20:31 Departure-Patient Inst. Referrals: [facility] (PCP/Family) Primary Care Physician ELINA BOLDEN [employer] Oct 30, 2018 20:31
--- OUTSIDE RECORDS SUMMARY | 2018-10-30 20:31 | XMS REPORT ---
Author Author MARIZA AHUMADA Organization [facility] Address [address] [place] [address] Care Team Providers Care Glazing Department Supervisor Name Role Phone MARIZA AHUMADA Unavailable PROBLEMS Type Condition ICD9-CM Code NOU05-OZ Code Onset Dates Condition Status SNOMED Code Problem Recurrent major depressive disorder, in full remission F33.42 Active 260462428 Problem Tobacco abuse Z72.0 Active 520994122 Problem jail current use of insulin Z79.4 Active 579812406 Problem Morbid (severe) obesity due to excess calories E66.01 Active 699401795 Problem Hyperlipidemia LDL goal <70 E78.5 Active 73309320 Problem Tobacco abuse counseling Z71.6 Active 032469297 Problem Type 2 diabetes mellitus with other specified complication E11.69 Active 22122913 Problem Seasonal allergic rhinitis due to pollen J30.1 Active 72955631 Problem Body mass index (BMI) of 39.0-39.9 in adult Z68.39 Active 726347444 Problem Allergic rhinitis J30.9 Active 32903103 Problem Hypothyroidism E03.9 Active 36344915 Problem 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 95360273 Problem On home oxygen therapy Z99.81 Active 131243346950 Problem Urinary incontinence R32 Active 496447193 Problem Essential hypertension I10 Active 55973573 Problem Microcytic anemia D50.9 Active 690331035 Problem Gastroesophageal reflux disease without esophagitis K21.9 Active 470122806 ALLERGIES No Information ENCOUNTERS Encounter Location Date Diagnosis [facility] [address] [facility] [id number] [address] May, [facility] [address] [address] 19 May, 2018 [facility] [address] [id number] [address] May, Acute upper respiratory infection J06.9 [facility] [address] [address] May, Essential hypertension I10 [facility] [address] [address] May, Essential hypertension I10 [place] [id number] [place] [address] 31932- 9424 Apr, Essential hypertension I10 [place] [address] [id number] [place] [address] 10040- 3909 Apr, [place] [id number] [place] [address] 40647- 7850 Apr, 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 [place] [id number] [place] [address] 95269- 3819 Apr, [place] [id number] [place] [address] 86460- 4352 Mar, [place] [address] [address] Feb, Type 2 diabetes mellitus with other specified complication E11.69 ; jail current use of insulin Z79.4 ; Essential hypertension I10 ; Hyperlipidemia LDL goal <70 E78.5 ; COPD (chronic obstructive pulmonary disease ) with 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 ; Microcytic anemia D50.9 ; Morbid (severe) obesity due to excess calories E66.01 ; Body mass index (BMI) of 39.0-39.9 in adult Z68.39 ; Hypothyroidism E03.9 and Seasonal allergic rhinitis due to pollen J30.1 [place] [address] [place] [address] 12456- 2127 November, Pneumonia of right lower lobe due to infectious organism J18.1 ; jail current use of insulin Z79.4 ; Type [...] without esophagitis K21.9 and Allergic rhinitis J30.9 [place] [id number] [place] [address] 86123- 5263 November, [place] [address] [address]407- 2905 Sep, [place] [address] 30963- 6977 Sep, [place] [address] 98305- 7011 Sep, [place] [address] 17229- 1127 Sep, [facility] [address] [address] Jul, Encounter for immunization Z23 [facility] [place] [address] [address] Jun, Subacute maxillary sinusitis J01.00 [place] [address] 13490- 4187 May, [place] [id number] [place] [address] 48042- 4505 May, [place] [id number] [place] [address] 14249- 2049 May, Type II diabetes mellitus E11.9 ; Hypothyroidism E03.9 ; 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 ; Cough R05 ; COPD with exacerbation J44.1 and Pneumonia of right lower lobe due to infectious organism J18.1 [place] [id number] [place] [address] 02705- 5816 08 Mar, 2017 Hyperlipidemia, unspecified hyperlipidemia type E78.5 [place] [id number] [place] [address] 48125- 5958 Mar, Hypothyroidism E03.9 and Hyperlipidemia, unspecified hyperlipidemia type E78.5 [place] [id number] [place] [address] 48441- 8879 Feb, Type II diabetes mellitus E11.9 ; Hypothyroidism E03.9 ; 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 ; Obesity due to excess calories E66.09 ; Allergic rhinitis J30.9 ; Microcytic anemia D50.9 ; Gastroesophageal reflux disease without esophagitis K21.9 ; Essential hypertension I10 ; Hyperlipidemia, unspecified hyperlipidemia type E78.5 ; Recurrent major depressive disorder, in full remission F33.42 and Urinary incontinence R32 [place] [id number] [place] [address] 83258- 0653 Jan, [place] [address] 03327- 7989 Jan, [place] [id number] [place] [address] 15040- 3131 November, [place] [id number] [place] [address] 73494- 0106 Sep, Type II diabetes mellitus E11.9 ; [...] and Tinea pedis of both feet B35.3 [place] [id number] [place] [address] 77508- 6144 Jun, [facility] [address] [place] [id number] [place] [address] 86177 -0299 Jun, Acute upper respiratory infection, unspecified J06.9 and Other viral agents as the cause of diseases classified elsewhere B97.89 [place] [id number] [place] [address] 18875- 2636 May, [address] 68697- 0389 May, Type 2 diabetes mellitus with hyperglycemia [...] thrush B37.0 and Encounter for immunization Z23 [address] [address]- 4404 Apr, [address] [address]18- 8562 Apr, [address] 13237- 9730 Mar, [address] [address]- 2011 Dec, [address] [address]- 4084 Dec, [place] [id number] [place] [address] 40545- 2998 Dec, Encounter for well woman exam with routine gynecological exam Z01.419 ; Encounter for screening for malignant neoplasm of cervix Z12.4 ; Screening mammogram, encounter for Z12.31 ; Encounter for screening breast examination Z12.39 ; On home oxygen therapy Z99.81 ; 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 ; Heat rash L74.0 ; Type II diabetes mellitus E11.9 and Hypothyroidism E03.9 [place] [id number] [place] [address] 76483- 6743 November, [address] 68357- 2617 November, Type II diabetes mellitus E11.9 ; Allergic rhinitis J30.9 ; Hypothyroidism E03.9 ; Obesity due to excess calories E66.09 ; Urinary incontinence R32 ; Gastroesophageal reflux disease without esophagitis K21.9 and Essential hypertension I10 [facility] [id number] [place] [address] 29345- 6143 Oct, [facility] [address] 68957- 1073 Sep, [facility] [address] 16601- 8455 Sep, [facility] [address] [address] Aug, Acute maxillary sinusitis J01.00 [place] [address] 13560- 0957 Aug, [facility] [address] 48631- 8916 Aug, [place] [address] 46870- 1072 Aug, Type II diabetes mellitus E11.9 [place] [address] [place] [address] [id number] [place] [address] 66181- 4435 05 Aug, 2015 Type II diabetes mellitus E11.9 ; Hypothyroidism E03.9 ; 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 ; Obesity due to excess calories E66.09 ; Urinary incontinence R32 ; Anemia D64.9 ; Microcytic anemia D50.9 and Allergic rhinitis J30.9 [place] [address] 30967- 9407 May, Upper respiratory symptom R09.89 [place] [address] [address] [id number] [place] [address] 11064- 7153 09 May, 2015 Oral thrush B37.0 [place] [address] 14042- 4004 Apr, Hypothyroidism E03.9 and Microcytic anemia D50.9 [place] [address] [address] [id number] [place] [address] 96458- 7039 Apr, Encounter for long-term current use of medication Z79.899 ; Hypothyroidism E03.9 ; Microcytic anemia D50.9 ; Type 2 diabetes mellitus without complication E11.9 ; Essential hypertension I10 and Mixed incontinence N39.46 [place] [address] 18696- 3231 Apr, [facility] [id number] [place] [address] 42234- 7960 Mar, [place] [address] [id number] [place] [address] 16161- 4177 Mar, [place] [address] [id number] [place] [address] 05352- 6733 Mar, [place] [id number] [place] [address] 32971- 1207 Mar, [facility] [id number] [place] [address] 70565- 1203 Mar, [facility] [id number] [place] [address] 75318- 8962 Mar, [place] [id number] [place] [address] 27917- 5619 Mar, [facility] [id number] [place] [address] 83507- 4507 Feb, Cough 786.2 ; Wheezing 786.07 ; Hypothyroidism 244.9 and Encounter for long-term current use of medication V58.69 [place] [address] [id number] [place] [address] 82675- 2086 Feb, Diabetes type 2, uncontrolled 250.02 ; Depression 311 ; Encounter for long-term current use of medication V58.69 and Hypothyroidism 244.9 [place] [address] [place] [address]- 2094 Feb, [facility] [place] [facility] [address] [id number] [place] [address]- 6593 Jan, [facility] [place] [facility] [address] [id number] [place] [address]- 2558 Oct, [facility] [place] [facility] [address] [id number] [place] [address]- 6211 Oct, [facility] [place] [facility] [address] [id number] [place] [address]- 1464 Oct, [facility] [place] [facility] [address] [id number] [place] [address]- 8144 Sep, [facility] [place] [facility] [address] [id number] [place] [address]- 4013 Sep, [facility] [place] [facility] [address] [id number] [place] [address]- 2368 Sep, [facility] [place] [facility] [address] [id number] [place] [address]- 7046 Aug, [facility] [place] [facility] [address] [id number] [place] [address]- 1055 Aug, [facility] [place] [facility] [address] [id number] [place] [address]- 7001 Jul, [facility] [place] [facility] [address] [id number] [place] [address]- 3974 Jul, [facility] [place] [facility] [address] [id number] [place] [address]- 2028 Jul, [facility] [place] [facility] [address] [id number] [place] [address]- 5776 Jul, [facility] [place] [facility] [address] [id number] [place] [address]- 1815 Jul, [facility] [place] [facility] [address] [id number] [place] [address]- 4123 Jul, [facility] [place] [facility] [address] [id number] [place] [address]- 3438 Jul, [facility] [place] [facility] [address] [id number] [place] [address]- 5022 Jul, [facility] [place] [facility] [address] [id number] [place] 8943 Jun, [facility] [place] [facility] [address] [id number] [place] [address]- 9619 Jun, [facility] [place] [facility] [address] [id number] [place] 7496 May, [facility] [place] [facility] [address] [id number] [place] [address]- 3706 May, [facility] [place] [facility] [address] [id number] [place] [address]- 8879 May, [facility] [place] [facility] [address] [id number] [place] [address]- 7691 Apr, [facility] [place] [facility] [address] [id number] [place] [address]- 4949 Apr, [facility] [place] [facility] [address] [id number] [place] [address]- 3255 Apr, [facility] [place] [facility] [address] [id number] [place] [address]- 8208 Apr, [facility] [place] [facility] [address] [id number] [address]- 1862 Apr, [facility] [place] [facility] [address] [id number] [place] [address]- 3569 Apr, [facility] [place] [facility] [address] [id number] [place] 9149 Mar, [facility] [place] [facility] [address] [id number] [place] [address]- 3133 Mar, [facility] [place] [facility] [address] [id number] [address]- 5820 Mar, [facility] [place] [facility] [address] [id number] [place] [address]- 2866 Mar, [facility] [place] [facility] [address] [id number] [place] 0926 Sep, [facility] [place] [facility] [address] [id number] [place] [address]- 4165 Sep, [facility] [place] [facility] [address] [id number] [place] [address]- 8814 Sep, [facility] [place] [facility] [address] [id number] [place] [address]- 6874 Sep, [facility] [place] [facility] [address] [id number] [place] [address]- 3836 Aug, [facility] [place] [facility] [address] [id number] [place] [address]- 2254 Aug, [facility] [place] [facility] [address] [id number] [place] [address]- 6552 Aug, [facility] [place] [facility] [address] [id number] [place] [address]- 8653 Aug, [facility] [place] [facility] [address] [facility] [id number] [place] [address]- 5551 Aug, [facility] [place] [facility] [address] [facility] [id number] [place] [address]- 9762 Aug, [facility] [place] [facility] [address] [id number] [address]- 0668 Jul, [facility] [place] [facility] [address] [id number] [place] [address]- 4408 Jul, [facility] [place] [facility] [address] [id number] [address]- 7965 Jul, [facility] [place] [facility] [address] [id number] [address]- 9287 Jul, [facility] [place] [facility] [address] [id number] [place] [address]- 1777 Jun, [facility] [place] [facility] [address] [id number] [place] [address]- 1951 Jun, [facility] [place] [facility] [address] [id number] [place] [address]- 2540 May, [facility] [place] [facility] [address] [id number] [place] [address]- 7645 May, [facility] [place] [facility] [address] [id number] [place] [address]- 5570 Apr, [facility] [place] [facility] [address] [id number] [place] [address]- 8623 Apr, [facility] [address] [id number] [place] [address]- 6573 Apr, [facility] [place] [facility] [address] [id number] [place] [address]- 6114 Mar, [facility] [place] [facility] [address] [id number] [place] [address]- 7882 Mar, [facility] [place] [facility] [address] [id number] [place] [address]- 4178 Mar, [facility] [place] [facility] [address] [id number] [place] [address]- 5251 Mar, [facility] [place] [facility] [address] [id number] [place] [address]- 2542 Feb, [facility] [place] [facility] [address] [id number] [place] [address]- 2642 Jan, [facility] [place] [facility] [address] [id number] [place] [address]- 2545 Jan, [facility] [place] [facility] [address] [id number] [place] [address]- 254 Jan, [facility] [place] [facility] [address] [id number] [place] [address]- 4516 Jan, [facility] [address] [id number] [place] [address]- 9784 Dec, [facility] [place] [facility] [address] [id number] [place] [address]- 7337 Dec, [facility] [place] [facility] [address] [id number] [place] [address]- 4636 Dec, [facility] [place] [facility] [address] [id number] [place] [address]- 8362 Dec, [facility] [place] [facility] [address] [id number] [place] [address]- 1948 Dec, [facility] [place] [facility] [address] [id number] [place] [address]- 9424 Dec, [facility] [place] [facility] [address] [id number] [place] [address]- 1732 November, [facility] [place] [facility] [address] [id number] [place] [address]- 1943 November, [facility] [place] [facility] [address] [id number] [place] [address]- 4868 November, [facility] [place] [facility] [address] [id number] [place] [address]- 7994 Oct, [facility] [place] [facility] [address] [id number] [place] [address]- 4009 Oct, [facility] [place] [facility] [address] [id number] [place] [address]- 9043 Sep, [facility] [place] [facility] [address] [id number] [place] 1007 Sep, [facility] [place] [facility] [address] [id number] [place] 4967 Sep, [facility] [place] [facility] [address] [id number] [place] [address]- 4353 Sep, [facility] [place] [facility] [address] [id number] [place] [address]- 3985 Sep, [facility] [address] [id number] [place] [address]- 6756 Aug, [facility] [place] [facility] [address] [id number] [place] [address] 2546 Aug, [facility] [place] [facility] [address] [id number] [place] [address] 2546 Aug, [facility] [place] [facility] [address] [id number] [place] [address]- 2546 07 Aug, 2012 [facility] [place] [facility] [address] [id number] [place] [address]- 1126 04 Aug, 2012 [facility] [address] [id number] [place] [address]- 3886 Jul, [facility] [address] [id number] [place] [address]- 2432 Jul, [facility] [address] [id number] [place] [address]- 6236 Jun, [facility] [address] [id number] [place] [address]- 8832 19 Jun, 2012 [facility] [address] [facility] [id number] [place] [address]- 3557 18 Jun, 2012 [facility] [place] [facility] [address] [id number] [place] [address]- 2546 18 Jun, 2012 [facility] [place] [facility] [address] [id number] [place] [address] 2546 10 Jun, 2012 [facility] [place] [facility] [address] [id number] [place] [address] 2546 10 Jun, 2012 [facility] [place] [facility] [address] [id number] [place] [address] 2546 07 Jun, 2012 [facility] [place] [facility] [address] [id number] [place] [address]- 3184 Jun, [facility] [place] [facility] [address] [id number] [place] [address]- 9542 Jun, [facility] [place] [facility] [address] [id number] [place] [address]- 7615 May, [facility] [place] [facility] [address] [facility] [id number] [place] [address]- 9425 May, [facility] [place] [facility] [address] [id number] [place] [address]- 5615 May, [facility] [place] [facility] [address] [id number] [place] [address]- 1431 May, [facility] [place] [facility] [address] [id number] [place] [address]- 7511 May, [facility] [place] [facility] [address] [facility] [id number] [place] [address]- 2337 May, [facility] [place] [facility] [address] [id number] [address]- 7493 May, [facility] [place] [facility] [address] [id number] [place] [address]- 1787 Apr, [facility] [place] [facility] [address] [id number] [place] [address]- 5666 Mar, [facility] [place] [facility] [address] [id number] [place] [address]- 0850 Mar, [facility] [place] [facility] [address] [id number] [place] [address]- 8527 Feb, [facility] [place] [facility] [address] [id number] [place] [address]- 2609 Feb, [facility] [place] [facility] [address] [id number] [place] [address]- 9153 Feb, [facility] [place] [facility] [address] [facility] [id number] [place] [address]- 7395 Feb, [facility] [place] [facility] [address] [id number] [place] [address]- 7097 31 Jan, 2012 [facility] [address] [id number] [place] [address]- 6903 23 Jan, 2012 [facility] [place] [facility] [address] [id number] [place] [address]- 6726 Jan, [facility] [address] [id number] [place] [address]- 9916 06 Jan, 2012 [facility] [place] [facility] [address] [id number] [place] [address]- 3752 Dec, [facility] [address] [id number] [place] [address]- 9032 Dec, [facility] [place] [facility] [address] [id number] [place] [address] 17 Dec, 2011 [facility] [address] [id number] [place] [address] 15 Dec, 2011 [facility] [address] [id number] [place] [address] Dec, [facility] [place] [facility] [address] [id number] [place] [address] Sep, [facility] [address] [id number] [place] [address] Aug, [facility] [address] [id number] [place] [address] Jul, [facility] [address] [id number] [place] [address] 16 Jun, 2011 [facility] [place] [facility] [address] [id number] [place] [address] Jun, [facility] [place] [facility] [address] [id number] [place] [address] Jun, [facility] [place] [facility] [address] [id number] [place] [address] Jun, [facility] [address] [facility] [id number] [address] May, [facility] [address] [id number] [address] May, [facility] [address] [facility] [id number] [address] Apr, [facility] [address] [id number] [address] Jun, [facility] [address] [facility] [id number] [place] [address] Apr, IMMUNIZATIONS No Known Immunizations SOCIAL HISTORY Never Assessed REASON FOR VISIT refill request PLAN OF CARE VITAL SIGNS MEDICATIONS Unknown [...]
--- OUTSIDE RECORDS SUMMARY | 2018-10-30 20:31 | XMS REPORT ---
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 Name Role Phone JAMES RUBIN Unavailable PROBLEMS Type Condition ICD9-CM Code [id number] Code Onset Dates Condition Status SNOMED Code Problem Recurrent major depressive disorder, in full remission F33.42 Active 698408542 Problem Tobacco abuse Z72.0 Active 949734298 Problem residential current use of insulin Z79.4 Active 893104512 Problem Morbid (severe) obesity due to excess calories E66.01 Active 645318816 Problem Hyperlipidemia LDL goal <70 E78.5 Active 38759427 Problem Tobacco abuse counseling Z71.6 Active 149155577 Problem Type 2 diabetes mellitus with other specified complication E11.69 Active 70014312 Problem Seasonal allergic rhinitis due to pollen J30.1 Active 82454034 Problem Body mass index (BMI) of 39.0-39.9 in adult Z68.39 Active 865328564 Problem Allergic rhinitis J30.9 Active 87632773 Problem Hypothyroidism E03.9 Active 47818263 Problem 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 41472154 Problem On home oxygen therapy Z99.81 Active 894115221713 Problem Urinary incontinence R32 Active 835269745 Problem Essential hypertension I10 Active 17385719 Problem Microcytic anemia D50.9 Active 075154101 Problem Gastroesophageal reflux disease without esophagitis K21.9 Active 389929891 ALLERGIES Substance Reaction Event Type Date Status Bactrim Unknown Drug Allergy May, Active ENCOUNTERS Encounter Location Date Diagnosis [facility] [id number] [address] May, [facility] [id number] [address] May, Acute upper respiratory infection J06.9 [place] [id number] [address] May, Essential hypertension I10 [place] [address] [address] May, Essential hypertension I10 [place] [address] [address] Apr, Essential hypertension I10 [place] [address] [address] Apr, [place] [address] [address] Apr, 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 [place] [address] [address] Apr, [place] [address] [address] Mar, [place] [address] [address] Feb, Type 2 diabetes mellitus with other specified complication E11.69 ; terminal carman current use of insulin Z79.4 ; Essential hypertension I10 ; Hyperlipidemia LDL goal <70 E78.5 ; COPD (chronic obstructive pulmonary disease ) with 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 ; Microcytic anemia D50.9 ; Morbid (severe) obesity due to excess calories E66.01 ; Body mass index (BMI) of 39.0-39.9 in adult Z68.39 ; Hypothyroidism E03.9 and Seasonal allergic rhinitis due to pollen J30.1 [place] [id number] [address] November, 2018 Pneumonia of right lower lobe due to infectious organism J18.1 ; terminal carman current use of insulin Z79.4 ; Type [...] without esophagitis K21.9 and Allergic rhinitis J30.9 [place] [id number] [place] [address]38- 1941 November, [facility] [id number] [place] [address] 23281- 8590 Sep, [place] [address] [address]- 7690 Sep, [place] [address] [address]- 8374 Sep, [place] [address] 16194- 4919 Sep, 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 ; Cough R05 ; COPD with exacerbation J44.1 and Pneumonia of right lower lobe due to infectious organism J18.1 [place] [id number] [place] [address] 72445- 3427 08 Mar, 2017 Hyperlipidemia, unspecified hyperlipidemia type E78.5 [place] [address] 74215- 9164 Mar, Hypothyroidism E03.9 and Hyperlipidemia, unspecified hyperlipidemia type E78.5 [place] [id number] [place] [address] 21034- 9337 Feb, Type II diabetes mellitus E11.9 ; Hypothyroidism E03.9 ; 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 ; Obesity due to excess calories E66.09 ; Allergic rhinitis J30.9 ; Microcytic anemia D50.9 ; Gastroesophageal reflux disease without esophagitis K21.9 ; Essential hypertension I10 ; Hyperlipidemia, unspecified hyperlipidemia type E78.5 ; Recurrent major depressive disorder, in full remission F33.42 and Urinary incontinence R32 [place] [id number] [place] [address] 80504- 4651 Jan, [place] [address] 64163- 9585 Jan, [place] [address] 62551- 1023 November, [place] [id number] [place] [address] 49734- 3302 Sep, Type II diabetes mellitus E11.9 ; [...] and Tinea pedis of both feet B35.3 [place] [id number] [place] [address] 76377- 2540 Jun, [facility] [id number] [place] [address] 93738 -7477 Jun, Acute upper respiratory infection, unspecified J06.9 and Other viral agents as the cause of diseases classified elsewhere B97.89 [place] [id number] [place] [address] 65989- 7145 May, [place] [address] [place] [address] 35051- 7026 May, Type 2 diabetes mellitus with hyperglycemia [...] thrush B37.0 and Encounter for immunization Z23 [place] [id number] [place] [address] 94819- 4085 Apr, [place] [id number] [place] [address] 70524- 3385 Apr, [place] [id number] [place] [address] 92191- 4859 Mar, [place] [id number] [place] [address] 99803- 8645 Dec, [place] [id number] [place] [address] 87461- 9417 Dec, [place] [id number] [place] [address] 38880- 4504 Dec, Encounter for well woman exam with routine gynecological exam Z01.419 ; Encounter for screening for malignant neoplasm of cervix Z12.4 ; Screening mammogram, encounter for Z12.31 ; Encounter for screening breast examination Z12.39 ; On home oxygen therapy Z99.81 ; 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 ; Heat rash L74.0 ; Type II diabetes mellitus E11.9 and Hypothyroidism E03.9 [place] [address] [address]36 November, [place] [id number] [place] [address] 22209- 3554 November, Type II diabetes mellitus E11.9 ; Allergic rhinitis J30.9 ; Hypothyroidism E03.9 ; Obesity due to excess calories E66.09 ; Urinary incontinence R32 ; Gastroesophageal reflux disease without esophagitis K21.9 and Essential hypertension I10 [facility] [id number] [place] [address] 79366- 7945 Oct, [facility] [address] 6[address]- 5336 Sep, [facility] [address] 55724- 2253 Sep, [facility] [address] [address] Aug, Acute maxillary sinusitis J01.00 [place] [address] 56346- 1283 Aug, [facility] [address] 63590- 1891 Aug, [facility] [address] 07313- 1207 Aug, Type II diabetes mellitus E11.9 [place] [address] 14879- 0036 05 Aug, 2015 Type II diabetes mellitus E11.9 ; Hypothyroidism E03.9 ; 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 ; Obesity due to excess calories E66.09 ; Urinary incontinence R32 ; Anemia D64.9 ; Microcytic anemia D50.9 and Allergic rhinitis J30.9 [place] [id number] [place] [address] 05914- 3533 May, Upper respiratory symptom R09.89 [place] [address] 26718- 7150 09 May, 2015 Oral thrush B37.0 [place] [address] 37510- 1709 Apr, Hypothyroidism E03.9 and Microcytic anemia D50.9 [facility] [address] [place] [address] 61679- 7904 Apr, Encounter for long-term current use of medication Z79.899 ; Hypothyroidism E03.9 ; Microcytic anemia D50.9 ; Type 2 diabetes mellitus without complication E11.9 ; Essential hypertension I10 and Mixed incontinence N39.46 [facility] [id number] [place] [address] 57074- 8139 Apr, [facility] [id number] [place] [address] 53926- 5280 Mar, [facility] [id number] [place] [address] 48477- 2571 Mar, [place] [id number] [place] [address] 73515- 6840 Mar, [facility] [id number] [place] [address] 77211- 2347 Mar, [facility] [id number] [place] [address] 01944- 7136 Mar, [facility] [id number] [place] [address] 57398- 3984 Mar, [place] [id number] [place] [address] 00597- 0672 Mar, [facility] [id number] [place] [address] 71878- 6964 Feb, Cough 786.2 ; Wheezing 786.07 ; Hypothyroidism 244.9 and Encounter for long-term current use of medication V58.69 [place] [id number] [place] [address] [id number]- 1293 Feb, Diabetes type 2, uncontrolled 250.02 ; Depression 311 ; Encounter for long-term current use of medication V58.69 and Hypothyroidism 244.9 [place] [id number] [place] [address] 47485- 4485 Feb, [facility] [place] [facility] [address] [id number] [place] [address]- 8739 Jan, [facility] [place] [facility] [address] [id number] [place] [address]- 7310 Oct, [facility] [place] [facility] [address] [id number] [place] [address]- 2275 Oct, [facility] [place] [facility] [address] [id number] [place] [address]- 3930 Oct, [facility] [place] [facility] [address] [id number] [place] [address]- 4346 Sep, [facility] [place] [facility] [address] [id number] [place] [address]- 0035 Sep, [facility] [place] [facility] [address] [id number] [place] [address]- 5367 Sep, [facility] [place] [facility] [address] [id number] [place] [address]- 6981 Aug, [facility] [place] [facility] [address] [id number] [place] [address]- 0569 Aug, [facility] [place] [facility] [address] [id number] [place] [address]- 8315 Jul, [facility] [place] [facility] [address] [id number] [place] [address]- 9736 Jul, [facility] [place] [facility] [address] [id number] [address]- 7908 Jul, [facility] [place] [facility] [address] [id number] [place] [address]- 2782 Jul, [facility] [place] [facility] [address] [id number] [place] [address]- 4823 Jul, [facility] [place] [facility] [address] [id number] [place] [address]- 9560 Jul, [facility] [place] [facility] [address] [id number] [place] [address]- 5669 Jul, [facility] [place] [facility] [address] [id number] [place] [address]- 4201 Jul, [facility] [place] [facility] [address] [id number] [place] [address]- 1220 Jun, [facility] [place] [facility] [address] [id number] [place]153 Jun, [facility] [place] [facility] [address] [id number] [place] [address]- 4430 May, [facility] [place] [facility] [address] [id number] [place] [address] May, [facility] [place] [facility] [address] [id number] [place] [address]- 6660 May, [facility] [place] [facility] [address] [id number] [place] [address]- 7406 Apr, [facility] [place] [facility] [address] [id number] [place] [address]- 0398 Apr, [facility] [place] [facility] [address] [id number] [place] [address]- 5492 Apr, [facility] [place] [facility] [address] [id number] [place] [address]- 7095 Apr, [facility] [place] [facility] [address] [id number] [place] [address]- 1315 Apr, [facility] [place] [facility] [address] [id number] [place] [address]- 0426 Apr, [facility] [place] [facility] [address] [id number] [place] [address]- 4957 Mar, [facility] [place] [facility] [address] [id number] [place] [address]- 0726 22 Mar, 2014 [facility] [place] [facility] [address] [id number] [place] [address]- 9369 Mar, [facility] [place] [facility] [address] [id number] [place] [address]- 8009 Mar, [facility] [place] [facility] [address] [id number] [place] [address]- 6694 Sep, [facility] [place] [facility] [address] [id number] [place] [address]- 8061 Sep, [facility] [place] [facility] [address] [id number] [place] [address]- 7543 Sep, [facility] [place] [facility] [address] [id number] [place] [address]- 2008 Sep, [facility] [place] [facility] [address] [id number] [place] [address]- 6086 Aug, [facility] [place] [facility] [address] [id number] [place] [address]- 2689 Aug, [facility] [place] [facility] [address] [id number] [place] [address]- 6215 Aug, [facility] [place] [facility] [address] [id number] [place] [address]- 4549 Aug, [facility] [place] [facility] [address] [id number] [place] [address]- 8141 Aug, [facility] [place] [facility] [address] [id number] [place] [address]- 2628 Aug, [facility] [place] [facility] [address] [id number] [address]- 1999 Jul, [facility] [place] [facility] [address] [id number] [place] [address]- 7197 Jul, [facility] [place] [facility] [address] [id number] [place] [address]- 1897 Jul, [facility] [place] [facility] [address] [id number] [place] [address]- 1207 Jul, [facility] [place] [facility] [address] [id number] [place] [address]- 6277 Jun, [facility] [address] [id number] [place] [address]- 7704 Jun, [facility] [place] [facility] [address] [id number] [place] [address]- 7187 May, [facility] [place] [facility] [address] [id number] [place] [address]- 8145 May, [facility] [place] [facility] [address] [id number] [place] [address]- 4157 Apr, [facility] [place] [facility] [address] [id number] [place] [address]- 4472 Apr, [facility] [place] [facility] [address] [id number] [place] [address]- 0660 Apr, [facility] [place] [facility] [address] [id number] [place] [address]- 6205 Mar, [facility] [place] [facility] [address] [id number] [place] [address]- 1998 Mar, [facility] [place] [facility] [address] [id number] [place] [address]- 5980 Mar, [facility] [place] [facility] [address] [id number] [place] [address]- 2675 Mar, [facility] [place] [facility] [address] [id number] [place] [address]- 3118 Feb, [facility] [place] [facility] [address] [id number] [place] [address]- 2548 Jan, [facility] [place] [facility] [address] [id number] [place] [address]- 6289 Jan, [facility] [place] [facility] [address] [id number] [place] [address]- 2546 Jan, [facility] [place] [facility] [address] [id number] [place] [address]- 4750 Jan, [facility] [place] [facility] [address] [id number] [place] [address]- 5253 Dec, [facility] [place] [facility] [address] [id number] [place] [address]- 1832 Dec, [facility] [place] [facility] [address] [id number] [place] [address]- 8627 Dec, [facility] [place] [facility] [address] [id number] [place] [address]- 3571 Dec, [facility] [place] [facility] [address] [id number] [place] [address]- 7679 Dec, [facility] [place] [facility] [address] [id number] [place] [address]- 9865 Dec, [facility] [place] [facility] [address] [id number] [place] [address]- 6833 November, [facility] [place] [facility] [address] [id number] [place] [address]- 4785 November, [facility] [place] [facility] [address] [id number] [place] [address]- 1214 November, [facility] [place] [facility] [address] [id number] [place] [address]- 3525 Oct, [facility] [place] [facility] [address] [id number] [place] [address]- 6697 Oct, [facility] [place] [facility] [address] [id number] [place] [address]- 4442 Sep, [facility] [place] [facility] [address] [id number] [place] [address]- 6252 Sep, [facility] [place] [facility] [address] [id number] [place] [address]- 8688 Sep, [facility] [place] [facility] [address] [id number] [place] [address]- 8910 Sep, [facility] [place] [facility] [address] [id number] [place] [address]- 8716 Sep, [facility] [address] [id number] [place] [address]- 5498 Aug, [facility] [address] [id number] [place] [address]- 1386 Aug, [facility] [address] [id number] [place] [address]- 5986 Aug, [facility] [address] [id number] [place] [address]- 9460 07 Aug, 2012 [facility] [address] [id number] [place] [address]- 3804 Aug, [facility] [address] [id number] [place] [address]- 5473 Jul, [facility] [address] [facility] [id number] [place] [address]- 5222 Jul, [facility] [address] [id number] [place] [address]- 2337 Jun, [facility] [address] [facility] [id number] [place] [address]- 8627 Jun, [facility] [address] [facility] [id number] [place] [address]- 4023 18 Jun, 2012 [facility] [address] [facility] [id number] [place] [address]- 4222 18 Jun, 2012 [facility] [address] [id number] [place] [address]- 1663 10 Jun, 2012 [facility] [address] [id number] [place] [address]- 4495 10 Jun, 2012 [facility] [address] [facility] [id number] [place] 5073 07 Jun, 2012 [facility] [address] [facility] [id number] [place] [address]- 8020 06 Jun, 2012 [facility] [place] [facility] [address] [id number] [place] [address]- 9598 Jun, [facility] [place] [facility] [address] [id number] [place] [address]- 6594 May, [facility] [place] [facility] [address] [id number] [place] [address]- 7936 May, [facility] [place] [facility] [address] [id number] [place] [address]- 7426 May, [facility] [place] [facility] [address] [id number] [place] [address]- 7694 May, [facility] [place] [facility] [address] [id number] [place] [address]- 3938 May, [facility] [place] [facility] [address] [id number] [place] [address]- 9637 May, [facility] [place] [facility] [address] [id number] [place] [address]- 3281 May, [facility] [place] [facility] [address] [id number] [place] [address]- 4238 Apr, [facility] [place] [facility] [address] [id number] [place] [address]- 9223 Mar, [facility] [place] [facility] [address] [id number] [place] [address]- 8396 Mar, [facility] [place] [facility] [address] [id number] [place] [address]- 2225 Feb, [facility] [place] [facility] [address] [id number] [place] [address]- 1117 Feb, [facility] [place] [facility] [address] [id number] [place] [address]- 6146 Feb, [facility] [place] [facility] [address] [id number] [place] [address] Feb, [facility] [place] [facility] [address] [id number] [place] [address] Jan, [facility] [address] [id number] [place] [address] Jan, [facility] [place] [facility] [address] [id number] [place] [address] Jan, [facility] [place] [facility] [address] [id number] [place] [address] Jan, [facility] [place] [facility] [address] [id number] [place] [address] Dec, [facility] [place] [facility] [address] [id number] [place] [address] Dec, [facility] [place] [facility] [address] [id number] [place] [address] Dec, [facility] [place] [facility] [address] [id number] [place] [address] Dec, [facility] [place] [facility] [address] [id number] [place] [address] Dec, [facility] [place] [facility] [address] [id number] [place] [address] Sep, [facility] [place] [facility] [address] [id number] [place] [address] Aug, [facility] [place] [facility] [address] [id number] [address] Jul, [facility] [place] [facility] [address] [id number] [place] [address] 16 Jun, 2011 [facility] [place] [facility] [address] [id number] [place] [address] Jun, [facility] [place] [facility] [address] [id number] [place] [address] Jun, [facility] [place] [facility] [address] [id number] [place] [address] 05 Jun, 2011 [facility] [place] [facility] [address] [facility] [id number] [place] [id number] May, [facility] [address] [facility] [id number] [place] [address] [address] May, [facility] [address] [facility] [id number] [place] [address] Apr, [facility] [address] [facility] [id number] [place] [address] Jun, [facility] [address] [facility] [id number] [place] [address] Apr, IMMUNIZATIONS No Known Immunizations SOCIAL HISTORY Never Assessed REASON FOR VISIT Sinus c/o-sinuses are draining, stuffy nose and watery eyes that started yesterday.--KAREN Castrejon PLAN OF CARE Activity Details Follow Up if not improving with PCP or reg follow up Reason: VITAL SIGNS Height 66 in 2018-06-03 Weight 236 lbs 2018-06-03 Temperature 97.8 degrees Fahrenheit 2018-06-03 Heart Rate 100 bpm 2018-06-03 Respiratory Rate 20 2018-06-03 BMI 38.09 kg/m2 2018-06-03 Blood pressure systolic 124 mmHg 2018-06-03 Blood pressure diastolic 66 mmHg 2018-06-03 MEDICATIONS Medication Instructions Dosage Frequency Start Date End Date Duration Status Ipratropium-Albuterol 0.5 mg-3 mg(2.5 mg base)/3 mL Inhalation Four times a day & prn up to 6 doses 3 ml Jul, Active Montelukast Sodium 10 MG TAKE ONE TABLET BY MOUTH ONCE DAILY 90 Active Oxybutynin Chloride ER 5 mg Orally Once a day 1 tablet 24h Apr, Jul, 30 day(s) Active ProAir HFA 108 (90 Base) MCG/ACT Inhalation every 4 hrs 2 puffs as needed 4h Active Famotidine 20 MG TAKE ONE TABLET BY MOUTH TWICE DAILY 90 Active Albuterol Sulfate 2.5 mg /3 mL (0.083 %) Inhalation 4 times a day 1 Each by Inhalation route 4 times a day PRN for cough and wheeze 6h Sep, Active Albuterol Sulfate (2.5 MG/3ML) 0.083% USE ONE VIAL PER NEBULIZER FOUR TIMES DAILY NEEDED FOR COUGH AND WHEEZE 7 Active Flonase 50 mcg/actuation Nasally 2 spray(s) intranasally 2 times a day 1 sprays by Nasal route 2 times per day in each nostril Jun, Active Atorvastatin Calcium 10 MG TAKE ONE TABLET BY MOUTH ONCE DAILY 90 Active Paroxetine HCl 40 MG TAKE ONE TABLET BY MOUTH ONCE DAILY IN THE MORNING 90 Active Advair Diskus 250-50 MCG/DOSE INHALE ONE PUFF BY MOUTH TWICE DAILY APPROXIMATELY 12 HOURS APART Active Levothyroxine Sodium 175 MCG TAKE ONE TABLET BY MOUTH IN THE MORNING ON AN EMPTY STOMACH WITH A FULL GLASS OF WATER 90 Active GlipiZIDE 5 MG TAKE ONE TABLET BY MOUTH TWICE DAILY 90 Active Loratadine 10 MG TAKE ONE TABLET BY MOUTH ONCE DAILY 90 Active Nystatin-Triamcinolone 821511-9.1 UNIT/GM Externally Twice a day apply thin layer to rash twice a day 12h Dec, Active Potassium Chloride Windy ER 10 MEQ Orally Once a day 1 tablet with food 24h Active Metformin HCl 500 MG TAKE ONE TABLET BY MOUTH TWICE DAILY WITH MEALS Active Norvasc 10 mg Orally Once a day 1 tablet 1 time per day 24h Active Spiriva HandiHaler 18 MCG Inhalation Once a day 1 capsule 24h Active Oxygen Active Furosemide 40 MG TAKE ONE TABLET BY MOUTH ONCE DAILY 90 Active Fish Oil 1000 MG Orally Once a day 2 capsule 24h Active Lisinopril 2.5 MG Orally Once a day 1 tablet 24h Active RESULTS No Results PROCEDURES [...]
--- OUTSIDE RECORDS SUMMARY | 2018-10-30 20:32 | XMS REPORT ---
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 Name Role Phone MARIZA AHUMADA Unavailable PROBLEMS Type Condition ICD9-CM Code KCW82-BP Code Onset Dates Condition Status SNOMED Code Problem Recurrent major depressive disorder, in full remission F33.42 Active 599389957 Problem Tobacco abuse Z72.0 Active 363940742 Problem correction current use of insulin Z79.4 Active 033102512 Problem Morbid (severe) obesity due to excess calories E66.01 Active 032261088 Problem Hyperlipidemia LDL goal <70 E78.5 Active 83874936 Problem Tobacco abuse counseling Z71.6 Active 672259594 Problem Type 2 diabetes mellitus with other specified complication E11.69 Active 67704575 Problem Seasonal allergic rhinitis due to pollen J30.1 Active 68215999 Problem Body mass index (BMI) of 39.0-39.9 in adult Z68.39 Active 250429970 Problem Allergic rhinitis J30.9 Active 93297283 Problem Hypothyroidism E03.9 Active 03168895 Problem 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 27250647 Problem On home oxygen therapy Z99.81 Active 710114401898 Problem Urinary incontinence R32 Active 469483403 Problem Essential hypertension I10 Active 04688467 Problem Microcytic anemia D50.9 Active 357692615 Problem Gastroesophageal reflux disease without esophagitis K21.9 Active 735144972 ALLERGIES No Information ENCOUNTERS Encounter Location Date Diagnosis [facility] [id number], [place] [address] May, [facility] [address], [place] [address] May, Essential hypertension I10 [facility] [id number], [place] [address] 1569 May, Essential hypertension I10 [place] [address], [place] [address] Apr, Essential hypertension I10 [address], [place] [address] Apr, [place] [address], [place] [address] 12[address] Apr, 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 [place] [address], [place] [address] Apr, [place] [address] [place] [address] 52818- 6679 Mar, [place] [address], [place] [address] 8[address] Feb, Type 2 diabetes mellitus with other specified complication E11.69 ; 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 ; Essential hypertension I10 ; Hyperlipidemia LDL goal <70 E78.5 ; COPD (chronic obstructive pulmonary disease ) with 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 ; Microcytic anemia D50.9 ; Morbid (severe) obesity due to excess calories E66.01 ; Body mass index (BMI) of 39.0-39.9 in adult Z68.39 ; Hypothyroidism E03.9 and Seasonal allergic rhinitis due to pollen J30.1 [id number] [address] November, Pneumonia of right lower lobe due to infectious organism J18.1 ; 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 ; Type [...] without esophagitis K21.9 and Allergic rhinitis J30.9 [place] [address], [place] [address] November, [facility] [id number] [place] [address] 19671- 8625 Sep, [facility] [id number] [place] [address] 89341- 0092 Sep, [facility] [address] [address]- [address] Sep, [facility] [id number] [place] [address] 63065- 7746 Sep, [facility] [address] [address] Jul, Encounter for immunization Z23 [facility] [id number] [place] [address] -1969 Jun, Subacute maxillary sinusitis J01.00 [facility] [id number] [place] [address] 24802- 5665 May, [facility] [id number] [place] [address] 86177- 1151 May, [place] [id number] [place] [address] 90895- 7979 May, Type II diabetes mellitus E11.9 ; Hypothyroidism E03.9 ; 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 ; Cough R05 ; COPD with exacerbation J44.1 and Pneumonia of right lower lobe due to infectious organism J18.1 [address] [address] [place] [address] 65840- 1102 Mar, Hyperlipidemia, unspecified hyperlipidemia type E78.5 [place] [id number] [place] [address] 16550- 7490 Mar, Hypothyroidism E03.9 and Hyperlipidemia, unspecified hyperlipidemia type E78.5 [place] [id number] [place] [address] 13041- 3686 Feb, Type II diabetes mellitus E11.9 ; Hypothyroidism E03.9 ; 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 ; Obesity due to excess calories E66.09 ; Allergic rhinitis J30.9 ; Microcytic anemia D50.9 ; Gastroesophageal reflux disease without esophagitis K21.9 ; Essential hypertension I10 ; Hyperlipidemia, unspecified hyperlipidemia type E78.5 ; Recurrent major depressive disorder, in full remission F33.42 and Urinary incontinence R32 [address] [address] [address]- 6077 Jan, [place] [address] [address]- 3157 Jan, [place] [address] 18698- 1082 November, [place] [address] 71654- 7704 Sep, Type II diabetes mellitus E11.9 ; [...] and Tinea pedis of both feet B35.3 [id number] [place] [address] 63855- 7571 Jun, [facility] [id number] [place] [address] 21139 -8285 Jun, Acute upper respiratory infection, unspecified J06.9 and Other viral agents as the cause of diseases classified elsewhere B97.89 [id number] [place] [address] 10766- 6244 May, [facility] [address] 6[address]- 5516 May, Type 2 diabetes mellitus with hyperglycemia [...] thrush B37.0 and Encounter for immunization Z23 [place] [id number] [place] [address] 83914- 1572 Apr, [place] [id number] [place] [address] 79139- 2544 Apr, [address] [address] [address]- 4576 Mar, [place] [address] 85883- 7064 Dec, [place] [id number] [place] [address] 03442- 1164 Dec, [place] [id number] [place] [address] 04837- 9117 Dec, Encounter for well woman exam with routine gynecological exam Z01.419 ; Encounter for screening for malignant neoplasm of cervix Z12.4 ; Screening mammogram, encounter for Z12.31 ; Encounter for screening breast examination Z12.39 ; On home oxygen therapy Z99.81 ; 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 ; Heat rash L74.0 ; Type II diabetes mellitus E11.9 and Hypothyroidism E03.9 [place] [id number] [place] [address] 66952- 1612 November, [id number] [place] [address] 57223- 3175 November, Type II diabetes mellitus E11.9 ; Allergic rhinitis J30.9 ; Hypothyroidism E03.9 ; Obesity due to excess calories E66.09 ; Urinary incontinence R32 ; Gastroesophageal reflux disease without esophagitis K21.9 and Essential hypertension I10 [address], [place] [address] Oct, [facility] [id number] [place] [address] 38488- 5277 Sep, [facility] [id number] [place] [address] 99293- 3796 Sep, [facility] [id number] [place] [address] 75465 -4667 Aug, Acute maxillary sinusitis J01.00 [facility] [id number] [place] [address] 21586- 3175 Aug, [place] [id number] [place] [address] 38784- 8604 Aug, [place] [id number] [place] [address] 14361- 3204 16 Aug, 2015 Type II diabetes mellitus E11.9 [place] [id number] [place] [address] 51741- 0445 05 Aug, 2015 Type II diabetes mellitus E11.9 ; Hypothyroidism E03.9 ; 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 ; Obesity due to excess calories E66.09 ; Urinary incontinence R32 ; Anemia D64.9 ; Microcytic anemia D50.9 and Allergic rhinitis J30.9 [place] [id number] [place] [address] 18444- 3237 May, Upper respiratory symptom R09.89 [place] [id number] [place] [address] 85095- 5427 May, Oral thrush B37.0 [place] [address] 51180- 2500 Apr, Hypothyroidism E03.9 and Microcytic anemia D50.9 [place] [id number] [place] [address] 22954- 8535 Apr, Encounter for long-term current use of medication Z79.899 ; Hypothyroidism E03.9 ; Microcytic anemia D50.9 ; Type 2 diabetes mellitus without complication E11.9 ; Essential hypertension I10 and Mixed incontinence N39.46 [facility] [id number] [place] [address] 37488- 1978 Apr, [facility] [id number] [place] [address] 96639- 2624 Mar, [facility] [address] 48759- 5928 Mar, [facility] [id number] [place] [address] 95860- 7724 Mar, [facility] [address] 66852- 6302 Mar, [facility] [address] 15864- 3800 Mar, [facility] [id number] [place] [address] 67097- 6702 Mar, [facility] [id number] [place] [address] 74833- 6426 Mar, [facility] [id number] [place] [address] 87290- 1854 Feb, Cough 786.2 ; Wheezing 786.07 ; Hypothyroidism 244.9 and Encounter for long-term current use of medication V58.69 [facility] [id number] [place] [address] 70542- 8637 Feb, Diabetes type 2, uncontrolled 250.02 ; Depression 311 ; Encounter for long-term current use of medication V58.69 and Hypothyroidism 244.9 [facility] [id number] [place] [address] 38460- 5471 Feb, [facility] [id number] [place] [address] 82003- 0393 Jan, [facility] [id number] [place] [address] 84367- 8886 28 Oct, 2014 [facility] [place] [facility] [address] [id number] [place] [address]- 4226 Oct, [facility] [place] [facility] [address] [id number] [place] [address]- 4035 Oct, [facility] [place] [facility] [address] [id number] [place] [address]- 4857 Sep, [facility] [place] [facility] [address] [id number] [place] [address]- 4115 Sep, [facility] [place] [facility] [address] [id number] [place] [address]- 2606 Sep, [facility] [place] [facility] [address] [id number] [place] [address]- 4915 Aug, [facility] [place] [facility] [address] [id number] [place] [address]- 6217 Aug, [facility] [place] [facility] [address] [id number] [place] [address]- 2340 Jul, [facility] [place] [facility] [address] [id number] [place] [address]- 1892 Jul, [facility] [place] [facility] [address] [id number] [place] [address]- 5498 Jul, [facility] [place] [facility] [address] [id number], [place] [address]- 4867 Jul, [facility] [place] [facility] [address] [id number], [place] [address]- 6836 Jul, [facility] [place] [facility] [address] [id number] [place] [address]- 7527 Jul, [facility] [place] [facility] [address] [id number] [place] [address]- 1086 Jul, [facility] [place] [facility] [address] [id number] [place] [address]- 2046 Jul, [facility] [place] [facility] [address] [id number] [place] [address]- 7054 Jun, [facility] [place] [facility] [address] [id number] [place] [address]- 0318 Jun, [facility] [place] [facility] [address] [id number] [place] [address]- 2878 May, [facility] [place] [facility] [address] [id number] [place] [address]- 7809 May, [facility] [place] [facility] [address] [id number] [place] [address]- 1580 May, [facility] [place] [facility] [address] [id number] [place] [address]- 3673 Apr, [facility] [place] [facility] [address] [id number] [place] [address]- 1526 Apr, [facility] [place] [facility] [address] [id number] [place] [address]- 3216 Apr, [facility] [place] [facility] [address] [id number] [place] [address]- 6240 Apr, [facility] [place] [facility] [address] [id number] [place] [address]- 4807 Apr, [facility] [place] [facility] [address] [id number] [place] [address]- 9401 Apr, [facility] [place] [facility] [address] [id number] [place] [address]- 6116 Mar, [facility] [place] [facility] [address] [id number] [place] [address]- 0396 Mar, [facility] [place] [facility] [address] [id number] [place] [address]- 1820 19 Mar, 2014 [facility] [place] [facility] [address] [id number] [place] [address]- 9463 Mar, [facility] [place] [facility] [address] [id number] [place] 4966 Sep, [facility] [place] [facility] [address] [id number] [place] [address]- 0462 Sep, [facility] [place] [facility] [address] [id number] [place] [address]- 5646 Sep, [facility] [place] [facility] [address] [id number] [place] [address]- 6048 Sep, [facility] [place] [facility] [address] [id number] [place] [address]- 0763 Aug, [facility] [place] [facility] [address] [id number] [place] [address]- 7499 Aug, [facility] [place] [facility] [address] [id number] [place] [address]- 3209 Aug, [facility] [place] [facility] [address] [id number] [place] [address]- 6265 Aug, [facility] [place] [facility] [address] [id number] [place] [address]- 8058 Aug, [facility] [place] [facility] [address] [id number] [place] [address]- 5133 Aug, [facility] [place] [facility] [address] [id number] [place] [address]- 1866 Jul, [facility] [place] [facility] [address] [id number] [place] [address]- 9439 Jul, [facility] [place] [facility] [address] [id number] [place] [address]- 2963 Jul, [facility] [place] [facility] [address] [id number] [place] [address]- 3315 Jul, [facility] [place] [facility] [address] [id number] [place] [address]- 0001 Jun, [facility] [place] [facility] [address] [id number] [place] [address]- 6709 Jun, [facility] [place] [facility] [address] [id number] [place] [address]- 2547 08 May, 2013 [facility] [address] [id number] [place] [address]- 6645 May, [facility] [place] [facility] [address] [id number] [place] [address]- 6294 Apr, [facility] [address] [id number] [place] [address]- 8954 Apr, [facility] [place] [facility] [address] [id number] [place] [address]- 4236 Apr, [facility] [address] [id number] [place] [address]- 7251 Mar, [facility] [address] [id number] [place] [address]- 3806 Mar, [facility] [place] [facility] [address] [id number] [place] [address]- 2000 Mar, [facility] [address] [id number] [place] [address]- 9164 Mar, [facility] [place] [facility] [address] [id number] [place] [address]- 9190 Feb, [facility] [address] [id number] [place] [address]- 0008 Jan, [facility] [place] [facility] [address] [id number] [place] [address]- 5102 Jan, [facility] [place] [facility] [address] [id number] [place] [address]- 2545 Jan, [facility] [place] [facility] [address] [id number] [place] [address]- 4352 Jan, [facility] [place] [facility] [address] [id number] [place] [address]- 5682 Dec, [facility] [place] [facility] [address] [id number] [place] [address]- 2488 Dec, [facility] [address] [id number] [place] [address]- 8312 Dec, [facility] [place] [facility] [address] [id number] [place] [address]- 7107 Dec, [facility] [place] [facility] [address] [id number] [place] [address]- 2481 Dec, [facility] [place] [facility] [address] [id number] [place] [address]- 3878 Dec, [facility] [address] [id number] [place] [address]- 2963 November, [facility] [place] [facility] [address] [id number] [place] [address]- 7698 November, [facility] [address] [id number] [place] [address]- 5576 November, [facility] [address] [id number] [place] [address]- 5244 Oct, [facility] [place] [facility] [address] [id number] [place] [address]- 1034 Oct, [facility] [place] [facility] [address] [id number], [place] [address]- 2559 Sep, [facility] [place] [facility] [address] [id number] [place] [address]- 6410 Sep, [facility] [place] [facility] [address] [id number], [place] [address]- 6144 Sep, [facility] [place] [facility] [address] [id number] [place] [address]- 5270 Sep, [facility] [place] [facility] [address] [id number] [place] [address]- 6726 Sep, [facility] [place] [facility] [address] [id number], [place] [address]- 0774 Aug, [facility] [place] [facility] [address] [id number], [place] [address]- 2494 12 Aug, 2012 [facility] [address] [id number] [place] [address]- 2106 11 Aug, 2012 [facility] [place] [facility] [address] [id number] [place] [address]- 1716 07 Aug, 2012 [facility] [address] [id number] [place] [address]- 6116 04 Aug, 2012 [facility] [place] [facility] [address] [id number] [place] [address] 2548 Jul, [facility] [address] [id number] [place] [address]- 7630 Jul, [facility] [address] [id number] [place] [address]- 7353 Jun, [facility] [address] [id number] [place] [address]- 4418 Jun, [facility] [address] [id number] [place] [address]- 0656 18 Jun, 2012 [facility] [place] [facility] [address] [id number] [place] [address]- 0810 18 Jun, 2012 [facility] [address] [facility] [id number] [place] [address]- 8374 Jun, [facility] [place] [facility] [address] [id number] [place] [address]- 3426 10 Jun, 2012 [facility] [place] [facility] [address] [id number] [place] [address]- 2548 07 Jun, 2012 [facility] [place] [facility] [address] [id number] [place] [address]- 1660 06 Jun, 2012 [facility] [place] [facility] [address] [id number] [place] [address]- 2546 06 Jun, 2012 [facility] [place] [facility] [address] [id number] [place] 6792 May, [facility] [place] [facility] [address] [id number] [place] [address]- 8314 May, [facility] [place] [facility] [address] [id number] [place] [address]- 7863 May, [facility] [place] [facility] [address] [id number] [place] [address]- 9625 May, [facility] [place] [facility] [address] [id number] [place] [address]- 0840 May, [facility] [place] [facility] [address] [id number] [place] [address]- 1847 May, [facility] [place] [facility] [address] [id number] [place] [address]- 4323 May, [facility] [place] [facility] [address] [id number] [place] [address]- 3257 Apr, [facility] [place] [facility] [address] [id number] [place] [address]- 7069 Mar, [facility] [place] [facility] [address] [id number] [place] [address]- 3714 Mar, [facility] [place] [facility] [address] [id number] [place] [address]- 5913 Feb, [facility] [place] [facility] [address] [id number] [place] [address] Feb, [facility] [place] [facility] [address] [id number] [place] [address] Feb, [facility] [place] [facility] [address] [id number] [place] [address] Feb, [facility] [place] [facility] [address] [id number] [place] [address] Jan, [facility] [place] [facility] [address] [id number] [place] [address] Jan, [facility] [place] [facility] [address] [id number] [place] [address] Jan, [facility] [place] [facility] [address] [id number] [place] [address] Jan, [facility] [place] [facility] [address] [id number] [place] [address] Dec, [facility] [place] [facility] [address] [id number] [place] [address] Dec, [facility] [place] [facility] [address] [id number] [place] [address] Dec, [facility] [place] [facility] [address] [id number] [place] [address] Dec, [facility] [place] [facility] [address] [id number] [place] [address] Dec, [facility] [place] [facility] [address] [id number] [place] [address] Sep, [facility] [place] [facility] [address] [id number] [place] [address] Aug, [facility] [place] [facility] [address] [id number] [place] [address] Jul, [facility] [place] [facility] [address] [id number] [place] [address] Jun, [facility] [place] [facility] [address] [id number] [place] [address] Jun, [facility] [place] [facility] [address] [id number] [place] [address] Jun, [facility] [place] [facility] [address] [id number] [place] [address] Jun, [facility] [place] [facility] [address] [id number] [place] [address] May, [facility] [place] [facility] [address] [id number] [place] [address] May, [facility] [place] [facility] [address] [facility] [id number] [place] [address] Apr, [facility] [address] [facility] [id number] [place] [address] Jun, [facility] [address] [facility] [id number] [place] [address] Apr, IMMUNIZATIONS No Known Immunizations SOCIAL HISTORY Never Assessed REASON FOR VISIT 90 day supply PLAN OF CARE VITAL SIGNS MEDICATIONS Medication Instructions Dosage Frequency Start Date End Date Duration Status Potassium Chloride Windy ER 10 MEQ Orally Once a day 1 tablet with food 24h Active Lisinopril 2.5 MG Orally Once [...]
--- OUTSIDE RECORDS SUMMARY | 2018-10-30 20:32 | XMS REPORT ---
Author Author MARIZA AHUMADA [facility] Address [address] [place] [address] Care Team Providers Care Catalog Specialist Name Role Phone MARIZA AHUMADA Unavailable PROBLEMS Type Condition ICD9-CM Code VXI78-BZ Code Onset Dates Condition Status SNOMED Code Problem Recurrent major depressive disorder, in full remission F33.42 Active 114014090 Problem Tobacco abuse Z72.0 Active 744647084 Problem detention current use of insulin Z79.4 Active 126033949 Problem Morbid (severe) obesity due to excess calories E66.01 Active 923478207 Problem Hyperlipidemia LDL goal <70 E78.5 Active 37156467 Problem Tobacco abuse counseling Z71.6 Active 298018906 Problem Type 2 diabetes mellitus with other specified complication E11.69 Active 26334729 Problem Seasonal allergic rhinitis due to pollen J30.1 Active 80386170 Problem Body mass index (BMI) of 39.0-39.9 in adult Z68.39 Active 443575351 Problem Allergic rhinitis J30.9 Active 92752707 Problem Hypothyroidism E03.9 Active 63695230 Problem 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 73262346 Problem On home oxygen therapy Z99.81 Active 598199350710 Problem Urinary incontinence R32 Active 613448234 Problem Essential hypertension I10 Active 05158861 Problem Microcytic anemia D50.9 Active 563159634 Problem Gastroesophageal reflux disease without esophagitis K21.9 Active 828613389 ALLERGIES No Information ENCOUNTERS Encounter Location Date Diagnosis [facility] [id number] [address] May, [facility] [address] [address] May, Essential hypertension I10 [facility] [id number] [address] 47[address] May, Essential hypertension I10 [place] [address] [address] Apr, Essential hypertension I10 [address] [address] [address] Apr, [place] [address] [address] 8209 Apr, 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 [address] [address] [address] Apr, [place] [id number] [place] [address] 62546- 8287 Mar, [place] [address] [address] Feb, Type 2 diabetes mellitus with other specified complication E11.69 ; 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 ; Essential hypertension I10 ; Hyperlipidemia LDL goal <70 E78.5 ; COPD (chronic obstructive pulmonary disease ) with 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 ; Microcytic anemia D50.9 ; Morbid (severe) obesity due to excess calories E66.01 ; Body mass index (BMI) of 39.0-39.9 in adult Z68.39 ; Hypothyroidism E03.9 and Seasonal allergic rhinitis due to pollen J30.1 [id number] [address] November, Pneumonia of right lower lobe due to infectious organism J18.1 ; 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 ; Type [...] K21.9 and Allergic rhinitis J30.9 [place] [address] [address] November, [facility] [id number] [place] [address] 99515- 8832 Sep, [facility] [id number] [place] [address] 13360- 8830 Sep, [facility] [address] [address]- 7573 Sep, [facility] [id number] [place] [address] 56375- 7666 Sep, [facility] [address] [address] Jul, Encounter for immunization Z23 [facility] [id number] [place] [address] 14264 -4634 Jun, Subacute maxillary sinusitis J01.00 [facility] [id number] [place] [address] 90837- 3772 May, [facility] [id number] [place] [address] 35760- 9062 May, [place] [id number] [place] [address] 76734- 5967 May, Type II diabetes mellitus E11.9 ; Hypothyroidism E03.9 ; 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 ; Cough R05 ; COPD with exacerbation J44.1 and Pneumonia of right lower lobe due to infectious organism J18.1 [id number] [place] [address] 37565- 3471 Mar, Hyperlipidemia, unspecified hyperlipidemia type E78.5 [place] [id number] [place] [address] 06173- 4292 Mar, Hypothyroidism E03.9 and Hyperlipidemia, unspecified hyperlipidemia type E78.5 [place] [id number] [place] [address] 45676- 5938 Feb, Type II diabetes mellitus E11.9 ; [...] F33.42 and Urinary incontinence R32 [address] [address] [address]- 6[address] Jan, [place] [address] 65457- 8531 Jan, [place] [address] 58637- 6422 November, [address] [address] 97422- 2392 Sep, Type II diabetes mellitus E11.9 ; [...] and Tinea pedis of both feet B35.3 [id number] [place] [address] 06196- 3679 Jun, [facility] [id number] [place] [address] 03466 -3305 Jun, Acute upper respiratory infection, unspecified J06.9 and Other viral agents as the cause of diseases classified elsewhere B97.89 [id number] [place] [address] 48152- 2117 May, [facility] [address] [address]- 1734 May, Type 2 diabetes mellitus with hyperglycemia [...] thrush B37.0 and Encounter for immunization Z23 [place] [id number] [place] [address] 45103- 8054 Apr, [place] [id number] [place] [address] 72248- 6097 Apr, [place] [address] 95722- 1147 Mar, [place] [address] 99744- 3166 Dec, [place] [id number] [place] [address] 26940- 8687 Dec, [place] [id number] [place] [address] 33283- 0487 Dec, Encounter for well woman exam with routine gynecological exam Z01.419 ; Encounter for screening for malignant neoplasm of cervix Z12.4 ; Screening mammogram, encounter for Z12.31 ; Encounter for screening breast examination Z12.39 ; On home oxygen therapy Z99.81 ; 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 ; Heat rash L74.0 ; Type II diabetes mellitus E11.9 and Hypothyroidism E03.9 [address] [id number] [place] [address] 34324- 4176 November, [id number] [place] [address] 61030- 4330 November, Type II diabetes mellitus E11.9 ; Allergic rhinitis J30.9 ; Hypothyroidism E03.9 ; Obesity due to excess calories E66.09 ; Urinary incontinence R32 ; Gastroesophageal reflux disease without esophagitis K21.9 and Essential hypertension I10 [address] [address]- 8029 Oct, [facility] [id number] [place] [address] 72276- 5051 Sep, [facility] [id number] [place] [address] 62100- 2681 Sep, [facility] [id number] [place] [address] 09657 -0935 Aug, Acute maxillary sinusitis J01.00 [facility] [id number] [place] [address] 20383- 3605 Aug, [place] [id number] [place] [address] 12362- 1405 Aug, [place] [id number] [place] [address] 79081- 4520 16 Aug, 2015 Type II diabetes mellitus E11.9 [place] [id number] [place] [address] 87762- 4172 05 Aug, 2015 Type II diabetes mellitus E11.9 ; Hypothyroidism E03.9 ; 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 ; Obesity due to excess calories E66.09 ; Urinary incontinence R32 ; Anemia D64.9 ; Microcytic anemia D50.9 and Allergic rhinitis J30.9 [place] [id number] [place] [address] 15260- 4414 May, Upper respiratory symptom R09.89 [place] [id number] [place] [address] 39713- 4208 May, Oral thrush B37.0 [address] [address] 37475- 5878 Apr, Hypothyroidism E03.9 and Microcytic anemia D50.9 [place] [id number] [place] [address] 98379- 4041 Apr, Encounter for long-term current use of medication Z79.899 ; Hypothyroidism E03.9 ; Microcytic anemia D50.9 ; Type 2 diabetes mellitus without complication E11.9 ; Essential hypertension I10 and Mixed incontinence N39.46 [facility] [id number] [place] [address] 11804- 4424 Apr, [facility] [id number] [place] [address] 10681- 6359 Mar, [facility] [address] 38881- 5203 Mar, [facility] [id number] [place] [address] 63274- 1431 Mar, [facility] [address] 47262- 1462 Mar, [facility] [address] 28101- 8475 Mar, [facility] [id number] [place] [address] 13028- 7100 Mar, [facility] [id number] [place] [address] 03443- 8788 Mar, [facility] [id number] [place] [address] 63983- 6048 Feb, Cough 786.2 ; Wheezing 786.07 ; Hypothyroidism 244.9 and Encounter for long-term current use of medication V58.69 [facility] [id number] [place] [address] 06507- 0165 Feb, Diabetes type 2, uncontrolled 250.02 ; Depression 311 ; Encounter for long-term current use of medication V58.69 and Hypothyroidism 244.9 [facility] [id number] [place] [address] 55131- 9272 Feb, [facility] [id number] [place] [address] 42594- 6621 Jan, [facility] [id number] [place] [address] 62852- 1266 28 Oct, 2014 [facility] [place] [facility] [address] [id number] [place] [address]- 5335 Oct, [facility] [place] [facility] [address] [id number] [place] [address]- 1590 Oct, [facility] [place] [facility] [address] [id number] [place] [address]- 9108 Sep, [facility] [place] [facility] [address] [id number] [place] [address]- 7616 Sep, [facility] [place] [facility] [address] [id number] [place] [address]- 3197 Sep, [facility] [place] [facility] [address] [id number] [place] [address]- 8525 Aug, [facility] [place] [facility] [address] [id number] [place] [address]- 4013 Aug, [facility] [place] [facility] [address] [id number] [place] [address]- 3097 Jul, [facility] [place] [facility] [address] [id number] [place] [address]- 6807 Jul, [facility] [place] [facility] [address] [id number] [place] [address]- 2761 Jul, [facility] [place] [facility] [address] [id number] [address]- 3354 Jul, [facility] [place] [facility] [address] [id number], [place] [address]- 6223 Jul, [facility] [place] [facility] [address] [id number] [place] [address]- 5661 Jul, [facility] [place] [facility] [address] [id number] [place] [address]- 0354 Jul, [facility] [place] [facility] [address] [id number] [place] [address]- 1086 Jul, [facility] [place] [facility] [address] [id number] [place] [address]- 2287 Jun, [facility] [place] [facility] [address] [id number] [place] [address]- 2233 Jun, [facility] [place] [facility] [address] [id number] [place] [address]- 6893 May, [facility] [place] [facility] [address] [id number] [place] [address]- 6270 May, [facility] [place] [facility] [address] [id number] [place] [address]- 3563 May, [facility] [place] [facility] [address] [id number] [place] [address]- 9273 Apr, [facility] [place] [facility] [address] [id number] [place] [address]- 8398 Apr, [facility] [place] [facility] [address] [id number] [place] [address]- 1938 Apr, [facility] [place] [facility] [address] [id number] [place] [address]- 3525 Apr, [facility] [place] [facility] [address] [id number] [place] [address]- 9752 Apr, [facility] [place] [facility] [address] [id number] [place] [address]- 1127 Apr, [facility] [place] [facility] [address] [id number] [place] [address]- 1695 Mar, [facility] [place] [facility] [address] [id number] [place] [address]- 7865 Mar, [facility] [place] [facility] [address] [id number] [place] [address]- 6888 19 Mar, 2014 [facility] [place] [facility] [address] [id number] [place] [address]- 0380 Mar, [facility] [place] [facility] [address] [id number] [place] 6086 Sep, [facility] [place] [facility] [address] [id number] [place] [address]- 7774 Sep, [facility] [place] [facility] [address] [id number] [place] [address]- 6074 Sep, [facility] [place] [facility] [address] [id number] [place] [address]- 6772 Sep, [facility] [place] [facility] [address] [id number] [place] [address]- 9924 Aug, [facility] [place] [facility] [address] [id number] [place] [address]- 9758 Aug, [facility] [place] [facility] [address] [id number] [place] [address]- 2178 Aug, [facility] [place] [facility] [address] [id number] [place] [address]- 5271 Aug, [facility] [place] [facility] [address] [id number] [place] [address]- 2504 Aug, [facility] [place] [facility] [address] [id number] [place] [address]- 0552 Aug, [facility] [place] [facility] [address] [id number] [place] [address]- 6829 Jul, [facility] [place] [facility] [address] [id number] [place] [address]- 0634 Jul, [facility] [place] [facility] [address] [id number] [place] [address]- 8237 Jul, [facility] [place] [facility] [address] [id number] [place] [address]- 9572 Jul, [facility] [place] [facility] [address] [id number] [place] [address]- 8623 Jun, [facility] [place] [facility] [address] [id number] [place] [address]- 2889 Jun, [facility] [place] [facility] [address] [id number] [place] [address]- 2541 08 May, 2013 [facility] [address] [id number] [place] [address]- 3638 May, [facility] [place] [facility] [address] [id number] [place] [address]- 2296 Apr, [facility] [address] [id number] [place] [address]- 1308 Apr, [facility] [place] [facility] [address] [id number] [place] [address]- 9482 Apr, [facility] [address] [id number] [place] [address]- 4514 Mar, [facility] [address] [id number] [place] [address]- 7918 Mar, [facility] [place] [facility] [address] [id number] [place] [address]- 6740 Mar, [facility] [address] [id number] [place] [address]- 1426 Mar, [facility] [place] [facility] [address] [id number] [place] [address]- 8496 Feb, [facility] [address] [id number] [place] [address]- 0648 Jan, [facility] [place] [facility] [address] [id number] [place] [address]- 8919 Jan, [facility] [place] [facility] [address] [id number] [place] [address]- 2541 Jan, [facility] [place] [facility] [address] [id number] [place] [address]- 2189 Jan, [facility] [place] [facility] [address] [id number] [place] [address]- 1876 Dec, [facility] [place] [facility] [address] [id number] [place] [address]- 9465 Dec, [facility] [address] [id number] [place] [address]- 9783 Dec, [facility] [place] [facility] [address] [id number] [place] [address]- 0738 Dec, [facility] [place] [facility] [address] [id number] [place] [address]- 8825 Dec, [facility] [place] [facility] [address] [id number] [place] [address]- 3635 Dec, [facility] [address] [id number] [place] [address]- 1702 November, [facility] [place] [facility] [address] [id number] [place] [address]- 8320 November, [facility] [address] [id number] [place] [address]- 9409 November, [facility] [address] [id number] [place] [address]- 8846 Oct, [facility] [place] [facility] [address] [id number] [place] [address]- 0907 Oct, [facility] [place] [facility] [address] [id number], [place] [address]- 8367 Sep, [facility] [place] [facility] [address] [id number] [place] [address]- 7433 Sep, [facility] [place] [facility] [address] [id number], [place] [address]- 1259 Sep, [facility] [place] [facility] [address] [id number] [place] [address]- 9265 Sep, [facility] [place] [facility] [address] [id number] [place] [address]- 8476 Sep, [facility] [place] [facility] [address] [id number], [place] [address]- 2866 Aug, [facility] [place] [facility] [address] [id number], [place] [address]- 1140 12 Aug, 2012 [facility] [address] [id number] [place] [address]- 7096 11 Aug, 2012 [facility] [place] [facility] [address] [id number] [place] [address]- 3856 07 Aug, 2012 [facility] [address] [id number] [place] [address]- 5966 04 Aug, 2012 [facility] [place] [facility] [address] [id number] [place] [address] 2543 Jul, [facility] [address] [id number] [place] [address]- 1030 Jul, [facility] [address] [id number] [place] [address]- 5542 Jun, [facility] [address] [id number] [place] [address]- 9824 Jun, [facility] [address] [id number] [place] [address]- 4385 18 Jun, 2012 [facility] [place] [facility] [address] [id number] [place] [address]- 4941 18 Jun, 2012 [facility] [address] [facility] [id number] [place] [address]- 7608 Jun, [facility] [place] [facility] [address] [id number] [place] [address]- 7046 10 Jun, 2012 [facility] [place] [facility] [address] [id number] [place] [address]- 2547 07 Jun, 2012 [facility] [place] [facility] [address] [id number] [place] [address]- 8466 06 Jun, 2012 [facility] [place] [facility] [address] [id number] [place] [address]- 2546 06 Jun, 2012 [facility] [place] [facility] [address] [id number] [place] 5864 May, [facility] [place] [facility] [address] [id number] [place] [address]- 5875 May, [facility] [place] [facility] [address] [id number] [place] [address]- 9132 May, [facility] [place] [facility] [address] [id number] [place] [address]- 7687 May, [facility] [place] [facility] [address] [id number] [place] [address]- 8327 May, [facility] [place] [facility] [address] [id number] [place] [address]- 1565 May, [facility] [place] [facility] [address] [id number] [place] [address]- 6503 May, [facility] [place] [facility] [address] [id number] [place] [address]- 8990 Apr, [facility] [place] [facility] [address] [id number] [place] [address]- 4943 Mar, [facility] [place] [facility] [address] [id number] [place] [address]- 4672 Mar, [facility] [place] [facility] [address] [id number] [place] [address]- 6001 Feb, [facility] [place] [facility] [address] [id number] [place] [address]- 5535 Feb, [facility] [place] [facility] [address] [id number] [place] [address]- 9955 Feb, [facility] [place] [facility] [address] [id number] [place] [address]- 1691 Feb, [facility] [place] [facility] [address] [id number] [place] [address]- 7698 Jan, [facility] [place] [facility] [address] [id number] [place] [address]- 3609 Jan, [facility] [place] [facility] [address] [id number] [place] [address]- 2546 Jan, [facility] [place] [facility] [address] [id number] [place] [address]- 1485 Jan, [facility] [place] [facility] [address] [id number] [place] [address] Dec, [facility] [place] [facility] [address] [id number] [place] [address] Dec, [facility] [place] [facility] [address] [id number] [place] [address] Dec, [facility] [place] [facility] [address] [id number] [place] [address] Dec, [facility] [place] [facility] [address] [id number] [place] [address] Dec, [facility] [place] [facility] [address] [id number] [place] [address] Sep, [facility] [place] [facility] [address] [id number] [place] [address] Aug, [facility] [place] [facility] [address] [id number] [place] [address] Jul, [facility] [place] [facility] [address] [id number] [place] [address] Jun, [facility] [place] [facility] [address] [id number] [place] [address] Jun, [facility] [place] [facility] [address] [id number] [place] [address] Jun, [facility] [place] [facility] [address] [id number] [place] [address] Jun, [facility] [place] [facility] [address] [id number] [place] [address] May, [facility] [place] [facility] [address] [id number] [place] [address] May, [facility] [place] [facility] [address] [facility] [id number] [place] [id number] Apr, [facility] [address] [facility] [id number] [place] [address] Jun, [facility] [address] [facility] [id number] [place] [address] Apr, IMMUNIZATIONS No Known Immunizations SOCIAL HISTORY Never Assessed REASON FOR VISIT Refill request PLAN OF CARE VITAL SIGNS MEDICATIONS Medication Instructions Dosage Frequency Start Date End Date Duration Status Potassium Chloride Windy ER 10 MEQ TAKE ONE TABLET BY MOUTH ONCE DAILY Active Lisinopril 2.5 MG TAKE ONE TABLET BY MOUTH ONCE DAILY Active RESULTS No Results PROCEDURES No Known [...]
--- OUTSIDE RECORDS SUMMARY | 2018-10-30 20:33 | XMS REPORT ---
Author Author MARIZA AHUMADA [facility] Address [address] [place] [address] Care Team Providers Care Mail List Librarian Name Role Phone MARIZA AHUMADA Unavailable PROBLEMS Type Condition ICD9-CM Code CPN95-OD Code Onset Dates Condition Status SNOMED Code Problem Recurrent major depressive disorder, in full remission F33.42 Active 582794820 Problem Tobacco abuse Z72.0 Active 939370022 Problem prison current use of insulin Z79.4 Active 304758200 Problem Morbid (severe) obesity due to excess calories E66.01 Active 070629761 Problem Hyperlipidemia LDL goal <70 E78.5 Active 38385817 Problem Tobacco abuse counseling Z71.6 Active 152930142 Problem Type 2 diabetes mellitus with other specified complication E11.69 Active 57825291 Problem Seasonal allergic rhinitis due to pollen J30.1 Active 89114737 Problem Body mass index (BMI) of 39.0-39.9 in adult Z68.39 Active 991462880 Problem Allergic rhinitis J30.9 Active 81858848 Problem Hypothyroidism E03.9 Active 00064410 Problem 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 90230604 Problem On home oxygen therapy Z99.81 Active 935462236681 Problem Urinary incontinence R32 Active 141188030 Problem Essential hypertension I10 Active 71110121 Problem Microcytic anemia D50.9 Active 086868781 Problem Gastroesophageal reflux disease without esophagitis K21.9 Active 849269325 ALLERGIES No Information ENCOUNTERS Encounter Location Date Diagnosis [facility] [id number], [place] [address] May, [facility] [address], [place] [address] Apr, Essential hypertension I10 [facility] [id number], [place] [address] Apr, [place] [address], [place] [address] Apr, 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 [place] [address], [place] [address] 3[address] Apr, [place] [id number] [place] [address] 68599- 8285 Mar, [place] [id number] [place] [address] 04184- 8499 Feb, Type 2 diabetes mellitus with other specified complication E11.69 ; 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 ; Essential hypertension I10 ; Hyperlipidemia LDL goal <70 E78.5 ; COPD (chronic obstructive pulmonary disease ) with 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 ; Microcytic anemia D50.9 ; Morbid (severe) obesity due to excess calories E66.01 ; Body mass index (BMI) of 39.0-39.9 in adult Z68.39 ; Hypothyroidism E03.9 and Seasonal allergic rhinitis due to pollen J30.1 [place] [id number] [place] [address] 20193- 5443 November, Pneumonia of right lower lobe due to infectious organism J18.1 ; 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 ; Type [...] without esophagitis K21.9 and Allergic rhinitis J30.9 [place] [address], [place] [address] 8[address] November, [place] [address], [place] [address] 5643 Sep, [place] [id number] [place] [address] 60771- 4659 Sep, [place] [id number] [place] [address] 07100- 6278 Sep, [place] [id number] [place] [address] 88597- 4379 Sep, [facility] [place] [id number] [place] [address] 66262 -2797 Jul, Encounter for immunization Z23 [facility] [place] [id number] [place] [address] 59843 -5022 Jun, Subacute maxillary sinusitis J01.[address] [address]- [address] May, [place] [address] [address]- [address] May, [address] [id number] [place] [address] 06905- 6227 May, Type II diabetes mellitus E11.9 ; Hypothyroidism E03.9 ; 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 ; Cough R05 ; COPD with exacerbation J44.1 and Pneumonia of right lower lobe due to infectious organism J18.1 [id number] [place] [address] 08212- 3795 Mar, Hyperlipidemia, unspecified hyperlipidemia type E78.5 [address] [id number] [place] [address] 25294- 9653 Mar, Hypothyroidism E03.9 and Hyperlipidemia, unspecified hyperlipidemia type E78.5 [place] [id number] [place] [address] 84265- 2760 Feb, Type II diabetes mellitus E11.9 ; Hypothyroidism E03.9 ; 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 ; Obesity due to excess calories E66.09 ; Allergic rhinitis J30.9 ; Microcytic anemia D50.9 ; Gastroesophageal reflux disease without esophagitis K21.9 ; Essential hypertension I10 ; Hyperlipidemia, unspecified hyperlipidemia type E78.5 ; Recurrent major depressive disorder, in full remission F33.42 and Urinary incontinence R32 [id number] [place] [address] 79921- 6297 Jan, [place] [id number] [place] [address] 81459- 8332 Jan, [address] [id number] [place] [address] 40553- 3610 November, [place] [id number] [place] [address] 95137- 4473 Sep, Type II diabetes mellitus E11.9 ; [...] and Tinea pedis of both feet B35.3 [place] [id number] [place] [address] 51587- 3286 Jun, [facility] [place] [address] [place] [address] 39177 -3707 Jun, Acute upper respiratory infection, unspecified J06.9 and Other viral agents as the cause of diseases classified elsewhere B97.89 [address] [place] [address] 96306- 9611 May, [place] [id number] [place] [address] 24051- 6209 May, Type 2 diabetes mellitus with hyperglycemia [...] thrush B37.0 and Encounter for immunization Z23 [place] [id number] [place] [address] 69346- 3972 Apr, [place] [id number] [place] [address] 18088- 6589 Apr, [place] [address] 52695- 5334 Mar, [place] [address] 18351- 3126 Dec, [place] [address] 55888- 1174 Dec, [place] [address] 11279- 0447 Dec, Encounter for well woman exam with routine gynecological exam Z01.419 ; Encounter for screening for malignant neoplasm of cervix Z12.4 ; Screening mammogram, encounter for Z12.31 ; Encounter for screening breast examination Z12.39 ; On home oxygen therapy Z99.81 ; 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 ; Heat rash L74.0 ; Type II diabetes mellitus E11.9 and Hypothyroidism E03.9 [place] [id number] [place] [address] 31836- 6352 November, [place] [address] 22832- 1356 November, Type II diabetes mellitus E11.9 ; Allergic rhinitis J30.9 ; Hypothyroidism E03.9 ; Obesity due to excess calories E66.09 ; Urinary incontinence R32 ; Gastroesophageal reflux disease without esophagitis K21.9 and Essential hypertension I10 [place] [id number] [place] [address] 25377- 1243 Oct, [place] [id number] [place] [address] 16479- 9393 Sep, [place] [address] 59874- 8158 Sep, [facility] [id number] [place] [address] 24692 -8844 Aug, Acute maxillary sinusitis J01.00 [facility] [id number] [place] [address] 71274- 4971 Aug, [place] [id number] [place] [address] 27765- 6824 Aug, [place] [id number] [place] [address] 97393- 4335 16 Aug, 2015 Type II diabetes mellitus E11.9 [place] [id number] [place] [address] 30258- 7778 05 Aug, 2015 Type II diabetes mellitus E11.9 ; Hypothyroidism E03.9 ; 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 ; Obesity due to excess calories E66.09 ; Urinary incontinence R32 ; Anemia D64.9 ; Microcytic anemia D50.9 and Allergic rhinitis J30.9 [place] [id number] [place] [address] 54262- 6232 May, Upper respiratory symptom R09.89 [place] [id number] [place] [address] 92371- 0375 May, Oral thrush B37.0 [place] [id number] [place] [address] 32576- 6989 Apr, Hypothyroidism E03.9 and Microcytic anemia D50.9 [place] [id number] [place] [address] 97939- 1284 Apr, Encounter for long-term current use of medication Z79.899 ; Hypothyroidism E03.9 ; Microcytic anemia D50.9 ; Type 2 diabetes mellitus without complication E11.9 ; Essential hypertension I10 and Mixed incontinence N39.46 [place] [id number] [place] [address] 57088- 5675 Apr, [place] [address], [place] [address]- 2789 Mar, [facility] [address] 8[address] Mar, [facility] [address], [place] [address]- 8561 Mar, 2014 [facility] [id number] [place] [address] 56318- 2146 Mar, 2014 [facility] [address], [place] [address]- 6642 Mar, [facility] [id number] [place] [address] 912156- 2485 Mar, [facility] [address] 6389 Mar, [facility] [address], [place] [address]- 8145 Feb, Cough 786.2 ; Wheezing 786.07 ; Hypothyroidism 244.9 and Encounter for long-term current use of medication V58.69 [facility] [address], [place] [address]- 4261 Feb, Diabetes type 2, uncontrolled 250.02 ; Depression 311 ; Encounter for long-term current use of medication V58.69 and Hypothyroidism 244.9 [facility] [address], [place] [address]- 0946 Feb, [facility] [address], [place] [address]- 6594 Jan, [facility] [address], [place] [address]- 0077 Oct, [facility] [address] 8787 Oct, [facility] [id number] 7942 Oct, [facility] [place] [facility] [address] [id number] [place] [address]- 1649 Sep, [facility] [place] [facility] [address] [id number] [place] [address]- 5956 Sep, [facility] [place] [facility] [address] [id number] [place] [address]- 3286 Sep, [facility] [place] [facility] [address] [id number] [place] [address]- 1116 Aug, [facility] [place] [facility] [address] [id number] [place] [address]- 0366 Aug, [facility] [place] [facility] [address] [id number] [place] [address]- 9256 Jul, [facility] [place] [facility] [address] [id number] [place] [address]- 2666 Jul, [facility] [place] [facility] [address] [id number] [place] [address]- 5827 Jul, [facility] [place] [facility] [address] [id number] [place] [address]- 8597 Jul, [facility] [place] [facility] [address] [id number] [place] [address]- 0456 Jul, [facility] [place] [facility] [address] [id number], [place] [address]- 9066 Jul, [facility] [place] [facility] [address] [id number], [place] [address]- 5876 Jul, [facility] [place] [facility] [address] [id number] [place] [address]- 8796 Jul, [facility] [place] [facility] [address] [id number] [place] [address]- 8166 Jun, [facility] [place] [facility] [address] [id number] [place] [address]- 9526 Jun, [facility] [place] [facility] [address] [id number] [place] [address]- 5515 May, [facility] [place] [facility] [address] [id number] [place] [address]- 8175 May, [facility] [place] [facility] [address] [id number] [place] [address]- 1385 May, [facility] [place] [facility] [address] [id number] [place] [address]- 4056 Apr, [facility] [place] [facility] [address] [id number] [place] [address]- 4577 Apr, [facility] [place] [facility] [address] [id number] [place] [address]- 9198 Apr, [facility] [place] [facility] [address] [id number] [place] [address]- 5904 Apr, [facility] [place] [facility] [address] [id number] [place] [address]- 0046 Apr, [facility] [place] [facility] [address] [id number] [place] [address]- 3680 Apr, [facility] [place] [facility] [address] [id number] [place] [address]- 2644 22 Mar, 2014 [facility] [place] [facility] [address] [id number] [place] [address]- 0021 22 Mar, 2014 [facility] [place] [facility] [address] [id number] [place] [address]- 4520 19 Mar, 2014 [facility] [place] [facility] [address] [id number], [place] [address]- 3486 19 Mar, 2014 [facility] [place] [facility] [address] [id number] [place] [address]- 5120 Sep, [facility] [place] [facility] [address] [id number] [place] [address]- 0049 19 Sep, 2013 [facility] [place] [facility] [address] [id number] [place] [address]- 7699 13 Sep, 2013 [facility] [place] [facility] [address] [id number] [place] [address]- 4803 Sep, [facility] [place] [facility] [address] [id number] [place] [address]- 4295 Aug, [facility] [place] [facility] [address] [id number] [place] [address]- 0039 Aug, [facility] [place] [facility] [address] [id number] [place] [address]- 7630 Aug, [facility] [place] [facility] [address] [id number] [place] [address]- 6865 Aug, [facility] [place] [facility] [address] [id number] [place] [address]- 0385 Aug, [facility] [place] [facility] [address] [id number] [place] [address]- 9761 Aug, [facility] [place] [facility] [address] [id number] [place] [address]- 3012 Jul, [facility] [place] [facility] [address] [id number] [place] [address]- 9112 Jul, [facility] [place] [facility] [address] [id number] [place] [address]- 4091 Jul, [facility] [place] [facility] [address] [id number], [place] [address]- 5513 Jul, [facility] [place] [facility] [address] [id number], [place] [address]- 2489 Jun, [facility] [place] [facility] [address] [id number] [place] [address]- 5994 Jun, [facility] [place] [facility] [address] [id number] [place] [address]- 8042 May, [facility] [place] [facility] [address] [id number], [place] [address]- 8539 May, [facility] [place] [facility] [address] [id number], [place] [address]- 8523 Apr, [facility] [address] [id number] [place] [address]- 7937 Apr, [facility] [place] [facility] [address] [id number] [place] [address]- 7724 Apr, [facility] [place] [facility] [address] [id number] [place] [address]- 3647 Mar, [facility] [place] [facility] [address] [id number] [place] [address]- 2836 Mar, [facility] [place] [facility] [address] [id number] [place] [address]- 5846 Mar, [facility] [place] [facility] [address] [id number] [place] [address]- 2879 Mar, [facility] [place] [facility] [address] [id number] [place] [address]- 4801 Feb, [facility] [place] [facility] [address] [id number] [place] [address]- 2041 Jan, [facility] [place] [facility] [address] [id number] [place] [address]- 9183 Jan, [facility] [place] [facility] [address] [id number] [place] [address]- 0956 Jan, [facility] [place] [facility] [address] [id number] [place] [address]- 1927 Jan, [facility] [place] [facility] [address] [id number] [place] [address]- 4279 Dec, [facility] [place] [facility] [address] [id number] [place] [address]- 5708 Dec, [facility] [place] [facility] [address] [id number] [place] [address]- 1783 Dec, [facility] [place] [facility] [address] [id number] [place] [address]- 4486 Dec, [facility] [place] [facility] [address] [id number] [place] [address]- 3023 Dec, [facility] [address] [id number] [place] [address]- 3344 Dec, [facility] [place] [facility] [address] [id number] [place] [address]- 4636 November, [facility] [address] [id number] [place] [address]- 3198 November, [facility] [place] [facility] [address] [id number] [place] [address]- 4873 November, [facility] [address] [id number] [place] [address]- 6253 Oct, [facility] [place] [facility] [address] [id number] [place] [address]- 7941 Oct, [facility] [address] [id number] [place] [address]- 1465 Sep, [facility] [address] [id number] [place] [address]- 7122 Sep, [facility] [place] [facility] [address] [id number] [place] [address]- 0025 Sep, [facility] [place] [facility] [address] [id number] [place] [address]- 5312 Sep, [facility] [place] [facility] [address] [id number] [place] [address]- 0112 Sep, [facility] [place] [facility] [address] [id number] [place] [address]- 6202 Aug, [facility] [place] [facility] [address] [id number] [place] [address]- 0023 Aug, [facility] [place] [facility] [address] [id number] [place] [address]- 6790 Aug, [facility] [place] [facility] [address] [id number] [place] [address]- 9065 07 Aug, 2012 [facility] [place] [facility] [address] [id number] [place] [address]- 6470 04 Aug, 2012 [facility] [place] [facility] [address] [id number] [place] [address]- 1696 Jul, [facility] [place] [facility] [address] [id number] [place] [address]- 9247 Jul, [facility] [place] [facility] [address] [id number] [place] [address]- 4101 Jun, [facility] [place] [facility] [address] [id number] [place] [address]- 1375 Jun, [facility] [place] [facility] [address] [id number] [place] [address]- 4269 Jun, [facility] [place] [facility] [address] [id number] [place] [address]- 5721 Jun, [facility] [place] [facility] [address] [id number] [place] [address]- 2660 Jun, [facility] [place] [facility] [address] [id number] [place] [address]- 9342 Jun, [facility] [place] [facility] [address] [id number] [place] [address]- 9929 Jun, [facility] [place] [facility] [address] [id number] [place] [address]- 2853 Jun, [facility] [place] [facility] [address] [id number] [place] [address]- 8385 Jun, [facility] [place] [facility] [address] [id number] [place] [address]- 2665 May, [facility] [place] [facility] [address] [id number] [place] [address]- 4230 May, [facility] [place] [facility] [address] [id number] [place] [address]- 9477 May, [facility] [place] [facility] [address] [id number] [place] [address] 2545 May, [facility] [place] [facility] [address] [id number] [place] [address]- 1008 May, [facility] [place] [facility] [address] [id number] [place] [address]- 2546 May, [facility] [place] [facility] [address] [id number] [place] [address]- 0691 May, [facility] [place] [facility] [address] [id number] [place] [address]- 4643 Apr, [facility] [place] [facility] [address] [id number] [place] [address]- 9815 Mar, [facility] [place] [facility] [address] [id number] [place] [address]- 5068 Mar, [facility] [place] [facility] [address] [id number] [place] [address]- 0068 Feb, [facility] [place] [facility] [address] [id number] [place] [address]- 5180 Feb, [facility] [place] [facility] [address] [id number] [place] [address]- 6048 Feb, [facility] [place] [facility] [address] [id number] [place] [address]- 0345 Feb, [facility] [place] [facility] [address] [id number] [place] [address]- 7240 Jan, [facility] [place] [facility] [address] [id number] [place] [address] Jan, [facility] [place] [facility] [address] [id number] [place] [address] Jan, [facility] [place] [facility] [address] [id number] [place] [address] Jan, [facility] [place] [facility] [address] [id number] [place] [address] Dec, [facility] [place] [facility] [address] [id number] [place] [address] 19 Dec, 2011 [facility] [place] [facility] [address] [id number] [place] [address] 17 Dec, 2011 [facility] [place] [facility] [address] [id number] [place] [address] 15 Dec, 2011 [facility] [place] [facility] [address] [id number] [place] [address] 13 Dec, 2011 [facility] [place] [facility] [address] [id number] [place] [address] Sep, [facility] [place] [facility] [address] [id number] [place] [address] [address] Aug, [facility] [place] [facility] [address] [id number] [place] [address] [address] Jul, [facility] [place] [facility] [address] [id number] [place] [address] 16 Jun, 2011 [facility] [place] [facility] [address] [id number] [place] [address] Jun, [facility] [place] [facility] [address] [id number] [place] [address] Jun, [facility] [place] [facility] [address] [id number] [place] [address] Jun, [facility] [place] [facility] [address] [id number] [place] [address] May, [facility] [place] [facility] [address] [id number] [place] [address] May, [facility] [place] [facility] [address] [id number] [place] [address] Apr, [facility] [place] [facility] [address] [id number] [place] [address] Jun, [facility] [place] [facility] [address] [id number] [place] [address] Apr, IMMUNIZATIONS No Known Immunizations SOCIAL HISTORY Never Assessed REASON FOR VISIT Refill request PLAN OF CARE VITAL SIGNS MEDICATIONS Medication Instructions Dosage Frequency Start Date End Date Duration Status Advair Diskus 250-50 MCG/DOSE INHALE ONE PUFF BY MOUTH TWICE DAILY APPROXIMATELY 12 HOURS APART Active RESULTS No Results PROCEDURES No Known [...]
--- OUTSIDE RECORDS SUMMARY | 2018-10-30 20:34 | XMS REPORT ---
Author Author VÍCTOR BLAIR [facility] Address [address] [place] [address] Care Team Providers Care Vpk Teacher Name Role Phone VÍCTOR BLAIR Unavailable PROBLEMS Type Condition ICD9-CM Code FFZ61-MA Code Onset Dates Condition Status SNOMED Code Problem Recurrent major depressive disorder, in full remission F33.42 Active 099728801 Problem Tobacco abuse Z72.0 Active 845609373 Problem penitentiary current use of insulin Z79.4 Active 048752168 Problem Morbid (severe) obesity due to excess calories E66.01 Active 266514450 Problem Hyperlipidemia LDL goal <70 E78.5 Active 00115112 Problem Tobacco abuse counseling Z71.6 Active 496402232 Problem Type 2 diabetes mellitus with other specified complication E11.69 Active 15476621 Problem Seasonal allergic rhinitis due to pollen J30.1 Active 00760756 Problem Body mass index (BMI) of 39.0-39.9 in adult Z68.39 Active 148159870 Problem Allergic rhinitis J30.9 Active 46528069 Problem Hypothyroidism E03.9 Active 69476050 Problem 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 [id number] [address] Apr, [facility] [address] [id number] [address] Mar, [facility] [address] [facility] [id number], [place] [address] 31 Aug, 2018 Type 2 diabetes mellitus with other specified complication E11.69 ; buttermaker current use of insulin Z79.4 ; Essential hypertension I10 ; Hyperlipidemia LDL goal <70 E78.5 ; COPD (chronic obstructive pulmonary disease ) with 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 ; Microcytic anemia D50.9 ; Morbid (severe) obesity due to excess calories E66.01 ; Body mass index (BMI) of 39.0-39.9 in adult Z68.39 ; Hypothyroidism E03.9 and Seasonal allergic rhinitis due to pollen J30.1 [place] [address] [address] November, 2018 Pneumonia of right lower lobe due to infectious organism J18.1 ; buttermaker current use of insulin Z79.4 ; Type [...] without esophagitis K21.9 and Allergic rhinitis J30.9 [place] [address] [address]- 78[address] November, [place] [address] 28357- 0584 Sep, [place] [address] [address]43- 0405 Sep, [place] [address] 29[address]- 4822 Sep, [place] [address] 6[address]- 3838 Sep, [facility] [address] [address] Jul, Encounter for immunization Z23 [facility] [address] [address] Jun, Subacute maxillary sinusitis J01.00 [place] [address], [place] [address] 27[address] May, [place] [address] [place] [id number] [place] [address] 42747- 9684 May, [place] [address] [place] [id number] [place] [address] 92277- 9435 May, Type II diabetes mellitus E11.9 ; Hypothyroidism E03.9 ; 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 ; Cough R05 ; COPD with exacerbation J44.1 and Pneumonia of right lower lobe due to infectious organism J18.1 [place] [address] [place] [id number] [place] [address] 01720- 2295 Mar, Hyperlipidemia, unspecified hyperlipidemia type E78.5 [place] [address] [place] [id number] [place] [address] 29696- 6136 Mar, Hypothyroidism E03.9 and Hyperlipidemia, unspecified hyperlipidemia type E78.5 [place] [address] [place] [address] [id number] [place] [address] 29833- 6270 Feb, Type II diabetes mellitus E11.9 ; Hypothyroidism E03.9 ; 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 ; Obesity due to excess calories E66.09 ; Allergic rhinitis J30.9 ; Microcytic anemia D50.9 ; Gastroesophageal reflux disease without esophagitis K21.9 ; Essential hypertension I10 ; Hyperlipidemia, unspecified hyperlipidemia type E78.5 ; Recurrent major depressive disorder, in full remission F33.42 and Urinary incontinence R32 [place] [address], [place] [address] Jan, [place] [address] [place] [address] [id number] [place] [address] 80846- 7004 Jan, [place] [address] [id number] [place] [address] 31085- 1426 November, [place] [address] [address] [id number] [place] [address] 96750- 3471 Sep, Type II diabetes mellitus E11.9 ; [...] and Tinea pedis of both feet B35.[address] [address]- [address]131 Jun, [facility] [address] [place] [address]79 Jun, Acute upper respiratory infection, unspecified J06.9 and Other viral agents as the cause of diseases classified elsewhere B97.[address] [address]- 2287 May, [address] 62397- 9548 May, Type 2 diabetes mellitus with hyperglycemia [...] thrush B37.0 and Encounter for immunization Z23 [place] [address] [address] [id number] [place] [address] 24568- 6566 Apr, [address] 17964- 9304 Apr, [place] [address] [place] [address] [id number] [place] [address] 83084- 4604 Mar, [place] [id number] [place] [address] 07250- 4465 Dec, [facility] [id number] [place] [address] 84350- 8284 Dec, [facility] [address] 91731- 5947 Dec, Encounter for well woman exam with routine gynecological exam Z01.419 ; Encounter for screening for malignant neoplasm of cervix Z12.4 ; Screening mammogram, encounter for Z12.31 ; Encounter for screening breast examination Z12.39 ; On home oxygen therapy Z99.81 ; 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 ; Heat rash L74.0 ; Type II diabetes mellitus E11.9 and Hypothyroidism E03.9 [facility] [address] [address]77- 6052 November, [place] [address] 33294- 3789 November, Type II diabetes mellitus E11.9 ; Allergic rhinitis J30.9 ; Hypothyroidism E03.9 ; Obesity due to excess calories E66.09 ; Urinary incontinence R32 ; Gastroesophageal reflux disease without esophagitis K21.9 and Essential hypertension I10 [facility] [address] [place] [address] [id number] [place] [address] 97328- 6750 Oct, [facility] [address] [place] [address] [id number] [place] [address] 61593- 0193 Sep, [facility] [id number] [place] [address] 04859- 6573 Sep, [facility] [id number] [place] [address] 51804 -3362 Aug, Acute maxillary sinusitis J01.00 [facility] [address] 43518- 5062 Aug, [facility] [address] [id number] [place] [address] 70723- 0399 Aug, [facility] [address] 47327- 7107 Aug, Type II diabetes mellitus E11.9 [place] [address] [place] [address] [id number] [place] [address] 26099- 7011 Aug, Type II diabetes mellitus E11.9 ; Hypothyroidism E03.9 ; 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 ; Obesity due to excess calories E66.09 ; Urinary incontinence R32 ; Anemia D64.9 ; Microcytic anemia D50.9 and Allergic rhinitis J30.9 [place] [address] 54479- 5656 May, Upper respiratory symptom R09.89 [place] [address] 89602- 3898 May, Oral thrush B37.[address] 90519- 7344 Apr, Hypothyroidism E03.9 and Microcytic anemia D50.9 [place] [address] 98482- 4108 Apr, Encounter for long-term current use of medication Z79.899 ; Hypothyroidism E03.9 ; Microcytic anemia D50.9 ; Type 2 diabetes mellitus without complication E11.9 ; Essential hypertension I10 and Mixed incontinence N39.46 [place] [address] [place] [address] [id number] [place] [address] 72304- 5984 Apr, [place] [address] [place] [address] [id number] [place] [address] 57528- 1286 Mar, [place] [address] [place] [address] [id number] [place] [address] 77417- 4723 Mar, [place] [address] 14806- 3225 Mar, [place] [address] [place] [address] [id number] [place] [address] 57230- 1519 Mar, [place] [address] 36111- 3848 Mar, [facility] [address], [place] [address]- 4726 Mar, [facility] [id number] [place] [address] 58898- 1796 Mar, [facility] [address] [id number], [place] [address]- 1606 Feb, Cough 786.2 ; Wheezing 786.07 ; Hypothyroidism 244.9 and Encounter for long-term current use of medication V58.69 [facility] [id number] [place] [address] 18941- 3237 Feb, Diabetes type 2, uncontrolled 250.02 ; Depression 311 ; Encounter for long-term current use of medication V58.69 and Hypothyroidism 244.9 [facility] [id number] [place] [address] 00960- 8986 Feb, [facility] [id number] [place] [address] 80504- 7946 Jan, [facility] [address] [id number] [place] [address] 68972- 8293 Oct, [facility] [id number] [place] [address] 40723- 3056 Oct, [facility] [address], [place] [address]- 8266 Oct, [facility] [id number] [place] [address] 85668- 4826 Sep, [facility] [address], [place] [address]- 1582 Sep, [facility] [address] [place] [address] [id number] [place] [address] 41284- 8736 Sep, [facility] [address], [place] [address]- 4866 Aug, [facility] [address] [place] [id number] [place] [address] 65514- 7153 Aug, [facility] [place] [facility] [address] [id number] [place] [address]- 0598 Jul, [facility] [place] [facility] [address] [id number], [place] [address]- 2309 Jul, [facility] [place] [facility] [address] [id number] [place] [address]- 5978 Jul, [facility] [place] [facility] [address] [id number] [place] [address]- 1520 Jul, [facility] [place] [facility] [address] [id number] [place] [address]- 4156 Jul, [facility] [place] [facility] [address] [id number] [place] [address]- 8444 Jul, [facility] [place] [facility] [address] [id number] [place] [address]- 5934 Jul, [facility] [place] [facility] [address] [id number] [place] [address]- 1742 Jul, [facility] [place] [facility] [address] [id number], [place] [address]- 7402 Jun, [facility] [place] [facility] [address] [id number] [place] [address]- 6065 Jun, [facility] [place] [facility] [address] [id number], [place] [address]- 3580 May, [facility] [place] [facility] [address] [id number], [place] [address]- 6300 May, [facility] [place] [facility] [address] [id number] [place] [address]- 8591 May, [facility] [place] [facility] [address] [id number] [place] [address]- 8670 Apr, [facility] [place] [facility] [address] [id number] [place] [address]- 4290 Apr, [facility] [place] [facility] [address] [id number] [place] [address]- 4894 20 Apr, 2014 [facility] [place] [facility] [address] [id number] [place] [address]- 5115 20 Apr, 2014 [facility] [place] [facility] [address] [id number] [place] [address]- 0236 Apr, [facility] [place] [facility] [address] [id number] [place] [address]- 6516 Apr, [facility] [place] [facility] [address] [id number] [place] [address]- 2117 Mar, [facility] [place] [facility] [address] [id number] [place] [address]- 6100 22 Mar, 2014 [facility] [place] [facility] [address] [id number] [place] [address]- 7390 19 Mar, 2014 [facility] [place] [facility] [address] [id number] [place] [address]- 5730 Mar, [facility] [place] [facility] [address] [id number] [place] [address]- 3037 Sep, [facility] [place] [facility] [address] [id number] [place] [address]- 7808 Sep, [facility] [place] [facility] [address] [id number] [place] [address]- 8175 Sep, [facility] [place] [facility] [address] [id number] [place] [address]- 9474 Sep, [facility] [place] [facility] [address] [id number] [place] [address]- 4635 Aug, [facility] [place] [facility] [address] [id number] [place] [address]- 5174 Aug, [facility] [place] [facility] [address] [id number] [place] [address]- 3912 Aug, [facility] [place] [facility] [address] [id number] [place] [address]- 3244 Aug, [facility] [place] [facility] [address] [id number] [place] [address]- 5019 Aug, [facility] [place] [facility] [address] [id number] [place] [address]- 3202 Aug, [facility] [place] [facility] [address] [id number] [place] [address]- 8845 Jul, [facility] [place] [facility] [address] [id number] [place] [address]- 2252 Jul, [facility] [place] [facility] [address] [id number] [place] [address]- 8189 Jul, [facility] [place] [facility] [address] [id number] [place] [address]- 3736 Jul, [facility] [place] [facility] [address] [id number] [place] [address]- 5842 Jun, [facility] [place] [facility] [address] [id number] [place] [address]- 4911 Jun, [facility] [place] [facility] [address] [id number] [place] [address]- 5903 May, [facility] [place] [facility] [address] [id number] [place] [address]- 5912 May, [facility] [place] [facility] [address] [id number], [place] [address]- 6804 Apr, [facility] [place] [facility] [address] [id number], [place] [address]- 7678 Apr, [facility] [place] [facility] [address] [id number] [place] [address]- 3694 Apr, [facility] [place] [facility] [address] [id number], [place] [address]- 1237 19 Mar, 2013 [facility] [place] [facility] [address] [id number] [place] [address]- 4971 11 Mar, 2013 [facility] [place] [facility] [address] [id number] [place] [address]- 2546 Mar, [facility] [address] [id number] [place] [address]- 1480 Mar, [facility] [address] [id number] [place] [address]- 2546 Feb, [facility] [address] [id number] [place] [address]- 9452 Jan, [facility] [address] [id number] [place] [address]- 8927 Jan, [facility] [address] [id number] [place] [address]- 6128 Jan, [facility] [address] [id number] [place] [address]- 6896 Jan, [facility] [address] [id number] [place] [address]- 9104 Dec, [facility] [address] [id number] [place] [address]- 5215 Dec, [facility] [address] [id number] [place] [address]- 5384 Dec, [facility] [address] [id number] [place] [address]- 8653 Dec, [facility] [address] [id number] [place] [address]- 5728 Dec, [facility] [address] [id number] [place] [address]- 2262 Dec, [facility] [place] [facility] [address] [id number] [place] [address]- 4559 November, [facility] [address] [id number] [place] [address]- 2546 November, [facility] [address] [id number] [place] [address]- 4675 November, [facility] [address] [id number] [place] [address]- 6508 Oct, [facility] [place] [facility] [address] [id number] [place] [address]- 9916 Oct, [facility] [address] [id number] [place] [address]- 4551 Sep, [facility] [place] [facility] [address] [id number] [place] [address]- 5338 Sep, [facility] [address] [id number] [place] 4814 Sep, [facility] [place] [facility] [address] [id number] [place] [address]- 0896 Sep, [facility] [address] [id number] [place] [address]- 4342 Sep, [facility] [address] [id number] [place] [address]- 3756 Aug, [facility] [address] [id number] [place] [address]- 7742 Aug, [facility] [address] [id number] [place] [address]- 1975 Aug, [facility] [address] [id number] [place] [address]- 7643 Aug, [facility] [place] [facility] [address] [id number], [place] [address]- 7319 Aug, [facility] [place] [facility] [address] [id number] [place] [address]- 1622 Jul, [facility] [place] [facility] [address] [id number] [place] [address]- 4376 Jul, [facility] [place] [facility] [address] [id number] [place] [address]- 4936 Jun, [facility] [place] [facility] [address] [id number] [place] [address]- 4246 Jun, [facility] [place] [facility] [address] [id number] [place] [address]- 6281 Jun, [facility] [place] [facility] [address] [id number] [place] [address]- 4126 18 Jun, 2012 [facility] [place] [facility] [address] [id number] [place] [address]- 9006 Jun, [facility] [place] [facility] [address] [id number] [place] [address]- 3611 Jun, [facility] [place] [facility] [address] [id number] [place] [address]- 5580 Jun, [facility] [place] [facility] [address] [id number] [place] [address]- 9726 Jun, [facility] [place] [facility] [address] [id number] [place] [address]- 1995 Jun, [facility] [place] [facility] [address] [id number] [place] [address]- 6208 May, [facility] [place] [facility] [address] [id number] [place] [address]- 3145 May, [facility] [place] [facility] [address] [facility] [id number] [place] [address]- 4533 May, [facility] [place] [facility] [address] [id number] [place] [address]- 5574 May, [facility] [place] [facility] [address] [id number] [place] [address]- 2242 May, [facility] [place] [facility] [address] [id number] [place] [address]- 3164 May, [facility] [place] [facility] [address] [facility] [id number] [place] [address]- 7456 May, [facility] [place] [facility] [address] [id number] [place] [address]- 4527 Apr, [facility] [place] [facility] [address] [id number] [place] [address]- 4613 Mar, [facility] [place] [facility] [address] [id number] [place] [address]- 7439 Mar, [facility] [place] [facility] [address] [id number] [place] [address]- 4527 Feb, [facility] [place] [facility] [address] [id number] [place] [address]- 5341 Feb, [facility] [place] [facility] [address] [id number] [place] [address]- 8079 Feb, [facility] [place] [facility] [address] [id number] [place] [address] Feb, [facility] [place] [facility] [address] [id number] [place] [address] Jan, [facility] [place] [facility] [address] [id number] [place] [address] Jan, [facility] [place] [facility] [address] [id number] [place] [address] Jan, [facility] [place] [facility] [address] [id number] [place] [address] Jan, [facility] [place] [facility] [address] [id number] [place] [address] Dec, [facility] [place] [facility] [address] [id number] [place] [address] Dec, [facility] [place] [facility] [address] [id number] [place] [address] 17 Dec, 2011 [facility] [place] [facility] [address] [id number] [place] [address] 15 Dec, 2011 [facility] [place] [facility] [address] [id number] [place] [address] 13 Dec, 2011 [facility] [place] [facility] [address] [id number] [address] Sep, [facility] [address] [facility] [id number], [place] [address] Aug, [facility] [address] [facility] [id number], [place] [address] Jul, [facility] [address] [facility] [id number][place] [address] [address] Jun, [facility] [address] [facility] [id number], [place] [address] Jun, [facility] [address] [facility] [id number][place] [address] [address] Jun, [facility] [id number] [address] Jun, [facility] [id number] [address] [address] May, [facility] [id number], [place] [address] May, [facility] [id number], [place] [address] Apr, [facility] [id number], [place] [address] Jun, [facility] [address] [id number] [address] Apr, IMMUNIZATIONS No Known Immunizations SOCIAL HISTORY Never Assessed REASON FOR VISIT Refill Request PLAN OF CARE VITAL SIGNS MEDICATIONS Medication Instructions Dosage Frequency Start Date End Date Duration Status Loratadine 10 MG TAKE ONE TABLET BY MOUTH ONCE DAILY 90 Active RESULTS No Results PROCEDURES No [...]
--- OUTSIDE RECORDS SUMMARY | 2018-10-30 20:34 | XMS REPORT ---
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 Helper Name Role Phone VÍCTOR BLAIR Unavailable PROBLEMS Type Condition ICD9-CM Code ZBY44-SB Code Onset Dates Condition Status SNOMED Code Problem Recurrent major depressive disorder, in full remission F33.42 Active 037571004 Problem Tobacco abuse Z72.0 Active 075115061 Problem long-term current use of insulin Z79.4 Active 737366540 Problem Morbid (severe) obesity due to excess calories E66.01 Active 105422966 Problem Hyperlipidemia LDL goal <70 E78.5 Active 48950230 Problem Tobacco abuse counseling Z71.6 Active 415655186 Problem Type 2 diabetes mellitus with other specified complication E11.69 Active 59028029 Problem Seasonal allergic rhinitis due to pollen J30.1 Active 41229764 Problem Body mass index (BMI) of 39.0-39.9 in adult Z68.39 Active 364128979 Problem Allergic rhinitis J30.9 Active 78057800 Problem Hypothyroidism E03.9 Active 29221407 Problem 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 89682113 Problem On home oxygen therapy Z99.81 Active 076169280733 Problem Urinary incontinence R32 Active 108137440 Problem Essential hypertension I10 Active 70749986 Problem Microcytic anemia D50.9 Active 006224190 Problem Gastroesophageal reflux disease without esophagitis K21.9 Active 432153542 ALLERGIES No Information ENCOUNTERS Encounter Location Date Diagnosis [facility] [address] [facility] [id number] [address] Apr, [facility] [address] [id number] [address] Mar, [facility] [address] [facility] [id number], [place] [address] 31 Aug, 2018 Type 2 diabetes mellitus with other specified complication E11.69 ; 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.4 ; Essential hypertension I10 ; Hyperlipidemia LDL goal <70 E78.5 ; COPD (chronic obstructive pulmonary disease ) with 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 ; Microcytic anemia D50.9 ; Morbid (severe) obesity due to excess calories E66.01 ; Body mass index (BMI) of 39.0-39.9 in adult Z68.39 ; Hypothyroidism E03.9 and Seasonal allergic rhinitis due to pollen J30.1 [place] [address] [address] November, 2018 Pneumonia of right lower lobe due to infectious organism J18.1 ; 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.4 ; Type [...] without esophagitis K21.9 and Allergic rhinitis J30.9 [place] [address] [address] November, [place] [address] [address]- 7[address] Sep, [place] [address] [address]- 9313 Sep, [place] [address] [address]- 5298 Sep, [place] [address] [address]- 6965 Sep, [facility] [address] [address] Jul, Encounter for immunization Z23 [facility] [address] [address] Jun, Subacute maxillary sinusitis J01.00 [place] [address] [address] May, [place] [id number] [place] [address] 11012- 5924 May, [place] [id number] [place] [address] 68660- 8362 May, Type II diabetes mellitus E11.9 ; Hypothyroidism E03.9 ; 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 ; Cough R05 ; COPD with exacerbation J44.1 and Pneumonia of right lower lobe due to infectious organism J18.1 [place] [id number] [place] [address] 13528- 9988 Mar, Hyperlipidemia, unspecified hyperlipidemia type E78.5 [place] [id number] [place] [address] 54396- 5534 Mar, Hypothyroidism E03.9 and Hyperlipidemia, unspecified hyperlipidemia type E78.5 [place] [id number] [place] [address] 65097- 1251 Feb, Type II diabetes mellitus E11.9 ; Hypothyroidism E03.9 ; 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 ; Obesity due to excess calories E66.09 ; Allergic rhinitis J30.9 ; Microcytic anemia D50.9 ; Gastroesophageal reflux disease without esophagitis K21.9 ; Essential hypertension I10 ; Hyperlipidemia, unspecified hyperlipidemia type E78.5 ; Recurrent major depressive disorder, in full remission F33.42 and Urinary incontinence R32 [place] [id number], [place] [address] Jan, [place] [id number] [place] [address] 92480- 6603 Jan, [place] [id number] [place] [address] 90711- 9895 November, [place] [id number] [place] [address] 11089- 3605 Sep, Type II diabetes mellitus E11.9 ; [...] and Tinea pedis of both feet B35.[address] [address]- [address]84 Jun, [facility] [address] [place] [address] -[address]45 Jun, Acute upper respiratory infection, unspecified J06.9 and Other viral agents as the cause of diseases classified elsewhere B97.[address] [address]- 4170 May, [address] [address]72- 2353 May, Type 2 diabetes mellitus with hyperglycemia [...] thrush B37.0 and Encounter for immunization Z23 [place] [id number] [place] [address]3401- 2261 Apr, [address] 8[address]78- 0021 Apr, [place] [id number] [place] [address] 85446- 7110 Mar, [place] [id number] [place] [address] 03096- 1089 Dec, [facility] [id number] [place] [address] 10288- 2553 Dec, [facility] [address] [address]- 6924 Dec, Encounter for well woman exam with routine gynecological exam Z01.419 ; Encounter for screening for malignant neoplasm of cervix Z12.4 ; Screening mammogram, encounter for Z12.31 ; Encounter for screening breast examination Z12.39 ; On home oxygen therapy Z99.81 ; 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 ; Heat rash L74.0 ; Type II diabetes mellitus E11.9 and Hypothyroidism E03.9 [facility] [address] [address]19- 7481 November, [place] [address] 94027- 9602 November, Type II diabetes mellitus E11.9 ; Allergic rhinitis J30.9 ; Hypothyroidism E03.9 ; Obesity due to excess calories E66.09 ; Urinary incontinence R32 ; Gastroesophageal reflux disease without esophagitis K21.9 and Essential hypertension I10 [facility] [id number] [place] [address] 60874- 8692 Oct, [facility] [id number] [place] [address] 44607- 5699 Sep, [facility] [id number] [place] [address] 77110- 3538 Sep, [facility] [id number] [place] [address] 29822 -0192 Aug, Acute maxillary sinusitis J01.00 [facility] [address] 28049- 6113 Aug, [facility] [id number] [place] [address] 19070- 5043 Aug, [facility] [address] 55275- 1668 Aug, Type II diabetes mellitus E11.9 [place] [id number] [place] [address] 00127- 2746 Aug, Type II diabetes mellitus E11.9 ; Hypothyroidism E03.9 ; 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 ; Obesity due to excess calories E66.09 ; Urinary incontinence R32 ; Anemia D64.9 ; Microcytic anemia D50.9 and Allergic rhinitis J30.9 [place] [address] 45913- 2442 May, Upper respiratory symptom R09.89 [place] [address] 83942- 6402 May, Oral thrush B37.[address] 82252- 0896 Apr, Hypothyroidism E03.9 and Microcytic anemia D50.9 [place] [address] 57206- 9370 Apr, Encounter for long-term current use of medication Z79.899 ; Hypothyroidism E03.9 ; Microcytic anemia D50.9 ; Type 2 diabetes mellitus without complication E11.9 ; Essential hypertension I10 and Mixed incontinence N39.46 [place] [id number] [place] [address] 52478- 4318 Apr, [place] [id number] [place] [address] 27600- 3413 Mar, [place] [id number] [place] [address] 76815- 5971 Mar, [place] [address] 63788- 4400 Mar, [place] [id number] [place] [address] 96772- 9156 Mar, [place] [address] 01929- 9673 Mar, [facility] [address], [place] [address]- 4296 Mar, [facility] [id number] [place] [address] 33910- 0246 Mar, [facility] [address] [id number] [address] 6576 Feb, Cough 786.2 ; Wheezing 786.07 ; Hypothyroidism 244.9 and Encounter for long-term current use of medication V58.69 [facility] [id number] [place] [address] 13379- 9065 Feb, Diabetes type 2, uncontrolled 250.02 ; Depression 311 ; Encounter for long-term current use of medication V58.69 and Hypothyroidism 244.9 [facility] [id number] [place] [address] 18729- 9836 Feb, [facility] [id number] [place] [address] 47055- 3166 Jan, [facility] [id number] [place] [address] 97142- 4479 Oct, [facility] [id number] [place] [address] 07408- 0276 Oct, [facility] [address], [place] [address]- 6206 Oct, [facility] [id number] [place] [address] 55357- 4256 Sep, [facility] [address], [place] [address]- 5448 Sep, [facility] [id number] [place] [address] 99004- 8166 Sep, [facility] [address] [address]- 7136 Aug, [facility] [id number] [place] [address] 37926- 2757 Aug, [facility] [place] [facility] [address] [id number] [place] [address]- 6445 Jul, [facility] [place] [facility] [address] [id number], [place] [address]- 6820 Jul, [facility] [place] [facility] [address] [id number] [place] [address]- 2380 Jul, [facility] [place] [facility] [address] [id number] [place] [address]- 0065 Jul, [facility] [place] [facility] [address] [id number] [place] [address]- 0576 Jul, [facility] [place] [facility] [address] [id number] [place] [address]- 1857 Jul, [facility] [place] [facility] [address] [id number] [place] [address]- 0165 Jul, [facility] [place] [facility] [address] [id number] [place] [address]- 7262 Jul, [facility] [place] [facility] [address] [id number], [place] [address]- 6487 Jun, [facility] [place] [facility] [address] [id number] [place] [address]- 1908 Jun, [facility] [place] [facility] [address] [id number], [place] [address]- 6411 May, [facility] [place] [facility] [address] [id number], [place] [address]- 2497 May, [facility] [place] [facility] [address] [id number] [place] [address]- 6766 May, [facility] [place] [facility] [address] [id number] [place] [address]- 5373 Apr, [facility] [place] [facility] [address] [id number] [place] [address]- 3658 Apr, [facility] [place] [facility] [address] [id number] [place] [address]- 7981 20 Apr, 2014 [facility] [place] [facility] [address] [id number] [place] [address]- 8391 20 Apr, 2014 [facility] [place] [facility] [address] [id number] [place] [address]- 9036 Apr, [facility] [place] [facility] [address] [id number] [place] [address]- 2516 Apr, [facility] [place] [facility] [address] [id number] [place] [address]- 7515 Mar, [facility] [place] [facility] [address] [id number] [place] [address]- 4467 22 Mar, 2014 [facility] [place] [facility] [address] [id number] [place] [address]- 2404 19 Mar, 2014 [facility] [place] [facility] [address] [id number] [place] [address]- 2848 Mar, [facility] [place] [facility] [address] [id number] [place] [address]- 2805 Sep, [facility] [place] [facility] [address] [id number] [place] [address]- 4118 Sep, [facility] [place] [facility] [address] [id number] [place] [address]- 4390 Sep, [facility] [place] [facility] [address] [id number] [place] [address]- 7020 Sep, [facility] [place] [facility] [address] [id number] [place] [address]- 1110 Aug, [facility] [place] [facility] [address] [id number] [place] [address]- 8265 Aug, [facility] [place] [facility] [address] [id number] [place] [address]- 4308 Aug, [facility] [place] [facility] [address] [id number] [place] [address]- 1969 Aug, [facility] [place] [facility] [address] [id number] [place] [address]- 3485 Aug, [facility] [place] [facility] [address] [id number] [place] [address]- 6074 Aug, [facility] [place] [facility] [address] [id number] [place] [address]- 8326 Jul, [facility] [place] [facility] [address] [id number] [place] [address]- 4637 Jul, [facility] [place] [facility] [address] [id number] [place] [address]- 7587 Jul, [facility] [place] [facility] [address] [id number] [place] [address]- 9216 Jul, [facility] [place] [facility] [address] [id number] [place] [address]- 8087 Jun, [facility] [place] [facility] [address] [id number] [place] [address]- 4913 Jun, [facility] [place] [facility] [address] [id number] [place] [address]- 7976 May, [facility] [place] [facility] [address] [id number] [place] [address]- 9107 May, [facility] [place] [facility] [address] [id number], [place] [address]- 5212 Apr, [facility] [place] [facility] [address] [id number], [place] [address]- 3821 Apr, [facility] [place] [facility] [address] [id number] [place] [address]- 8643 Apr, [facility] [place] [facility] [address] [id number], [place] [address]- 0746 19 Mar, 2013 [facility] [place] [facility] [address] [id number] [place] [address]- 9713 11 Mar, 2013 [facility] [place] [facility] [address] [id number] [place] [address]- 2546 Mar, [facility] [address] [id number] [place] [address]- 9687 Mar, [facility] [address] [id number] [place] [address]- 2546 Feb, [facility] [address] [id number] [place] [address]- 6611 Jan, [facility] [address] [id number] [place] [address]- 0061 Jan, [facility] [address] [id number] [place] [address]- 6734 Jan, [facility] [address] [id number] [place] [address]- 5666 Jan, [facility] [address] [id number] [place] [address]- 4490 Dec, [facility] [address] [id number] [place] [address]- 4622 Dec, [facility] [address] [id number] [place] [address]- 5385 Dec, [facility] [address] [id number] [place] [address]- 3886 Dec, [facility] [address] [id number] [place] [address]- 7348 Dec, [facility] [address] [id number] [place] [address]- 3910 Dec, [facility] [place] [facility] [address] [id number] [place] [address]- 4188 November, [facility] [address] [id number] [place] [address]- 2546 November, [facility] [address] [id number] [place] [address]- 4642 November, [facility] [address] [id number] [place] [address]- 7165 Oct, [facility] [place] [facility] [address] [id number] [place] [address]- 0476 Oct, [facility] [address] [id number] [place] [address]- 8055 Sep, [facility] [place] [facility] [address] [id number] [place] [address]- 5117 Sep, [facility] [address] [id number] [place] 8272 Sep, [facility] [place] [facility] [address] [id number] [place] [address]- 7636 Sep, [facility] [address] [id number] [place] [address]- 9615 Sep, [facility] [address] [id number] [place] [address]- 2051 Aug, [facility] [address] [id number] [place] [address]- 5831 Aug, [facility] [address] [id number] [place] [address]- 2433 Aug, [facility] [address] [id number] [place] [address]- 6669 Aug, [facility] [place] [facility] [address] [id number], [place] [address]- 8472 Aug, [facility] [place] [facility] [address] [id number] [place] [address]- 1692 Jul, [facility] [place] [facility] [address] [id number] [place] [address]- 1246 Jul, [facility] [place] [facility] [address] [id number] [place] [address]- 6046 Jun, [facility] [place] [facility] [address] [id number] [place] [address]- 3230 Jun, [facility] [place] [facility] [address] [id number] [place] [address]- 4125 Jun, [facility] [place] [facility] [address] [id number] [place] [address]- 2856 18 Jun, 2012 [facility] [place] [facility] [address] [id number] [place] [address]- 0816 Jun, [facility] [place] [facility] [address] [id number] [place] [address]- 9006 Jun, [facility] [place] [facility] [address] [id number] [place] [address]- 7920 Jun, [facility] [place] [facility] [address] [id number] [place] [address]- 3446 Jun, [facility] [place] [facility] [address] [id number] [place] [address]- 4990 Jun, [facility] [place] [facility] [address] [id number] [place] [address]- 6712 May, [facility] [place] [facility] [address] [id number] [place] [address]- 1008 May, [facility] [place] [facility] [address] [facility] [id number] [place] [address]- 8110 May, [facility] [place] [facility] [address] [id number] [place] [address]- 2631 May, [facility] [place] [facility] [address] [id number] [place] [address]- 3981 May, [facility] [place] [facility] [address] [id number] [place] [address]- 4884 May, [facility] [place] [facility] [address] [facility] [id number] [place] [address]- 7945 May, [facility] [place] [facility] [address] [id number] [place] [address]- 4643 Apr, [facility] [place] [facility] [address] [id number] [place] [address]- 7396 Mar, [facility] [place] [facility] [address] [id number] [place] [address]- 4260 Mar, [facility] [place] [facility] [address] [id number] [place] [address]- 8667 Feb, [facility] [place] [facility] [address] [id number] [place] [address]- 7275 Feb, [facility] [place] [facility] [address] [id number] [place] [address]- 0521 Feb, [facility] [place] [facility] [address] [id number] [place] [address]- 6960 Feb, [facility] [place] [facility] [address] [id number] [place] [address]- 8897 Jan, [facility] [place] [facility] [address] [id number] [place] [address]- 6479 Jan, [facility] [place] [facility] [address] [id number] [place] [address]- 1720 Jan, [facility] [place] [facility] [address] [id number] [place] [address]- 8955 Jan, [facility] [place] [facility] [address] [id number] [place] [address]- 7115 Dec, [facility] [place] [facility] [address] [id number] [place] [address]- 1940 Dec, [facility] [place] [facility] [address] [id number] [place] [address]- 3174 17 Dec, 2011 [facility] [place] [facility] [address] [id number] [place] [address] 15 Dec, 2011 [facility] [place] [facility] [address] [id number] [place] [address] 13 Dec, 2011 [facility] [place] [facility] [address] [id number] [address] Sep, [facility] [address] [facility] [address] [facility] [id number], [place] [address] Aug, [facility] [address] [facility] [id number], [place] [address] Jul, [facility] [id number] [address] Jun, [facility] [address] [facility] [id number], [place] [address] Jun, [facility] [address] [facility] [id number], [place] [address] Jun, [facility] [id number] [address] Jun, [facility] [id number], [place] [address] May, [facility] [id number], [place] [address] May, [facility] [id number], [place] [address] Apr, [facility] [id number] [address] Jun, [facility] [id number], [place] [address] Apr, IMMUNIZATIONS No Known Immunizations SOCIAL HISTORY Never Assessed REASON FOR VISIT PLAN OF CARE VITAL SIGNS MEDICATIONS Medication Instructions Dosage Frequency Start Date End Date Duration Status Oxybutynin Chloride ER 5 mg Orally Once a day 1 tablet 24h Apr, Jul, 30 day(s) Active RESULTS No Results PROCEDURES No Known [...]
[2018-10-30 20:35] LABS: BASOPHILS % (AUTO) 0 % (0-10); EOSINOPHILS % (AUTO) 0 % (0-10); HEMATOCRIT 43 % (35-52); HEMOGLOBIN 13.4 G/DL (11.5-16.0); LYMPHOCYTES # (AUTO) 1.1 X 10^3 (1.0-4.0); LYMPHOCYTES % (AUTO) 10 % (12-44); MEAN CORPUSCULAR HEMOGLOBIN 30 PG (25-34); MEAN CORPUSCULAR HGB CONC 31 G/DL (32-36); MEAN CORPUSCULAR VOLUME 96 FL (80-99); MEAN PLATELET VOLUME 9.1 FL (7.4-10.4); MONOCYTES # (AUTO) 0.7 X 10^3 (0.0-1.0); MONOCYTES % (AUTO) 6 % (0-12); NEUTROPHILS # (AUTO) 8.8 X 10^3 (1.8-7.8); NEUTROPHILS % (AUTO) 83 % (42-75); PLATELET COUNT 352 10^3/uL (130-400); RED CELL DISTRIBUTION WIDTH 16.3 % (10.0-14.5); WHITE BLOOD COUNT 10.6 10^3/uL (4.3-11.0)
--- OUTSIDE RECORDS SUMMARY | 2018-10-30 20:35 | XMS REPORT ---
Author Author CHRISTINEDOMINICK Bradshaw Organization [facility] Address [address] [place] [address] Care Team Providers Care Protein Purification Scientist Name Role Phone DOMINICK CHRISTINE Unavailable PROBLEMS Type Condition ICD9-CM Code VFB00-CT Code Onset Dates Condition Status SNOMED Code Problem Recurrent major depressive disorder, in full remission F33.42 Active 831346124 Problem Tobacco abuse Z72.0 Active 126737773 Problem detention current use of insulin Z79.4 Active 562753151 Problem Morbid (severe) obesity due to excess calories E66.01 Active 634763705 Problem Hyperlipidemia LDL goal <70 E78.5 Active 83142412 Problem Tobacco abuse counseling Z71.6 Active 635813178 Problem Type 2 diabetes mellitus with other specified complication E11.69 Active 20958865 Problem Seasonal allergic rhinitis due to pollen J30.1 Active 65742333 Problem Body mass index (BMI) of 39.0-39.9 in adult Z68.39 Active 799344364 Problem Allergic rhinitis J30.9 Active 39785542 Problem Hypothyroidism E03.9 Active 42096232 Problem 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 18850786 Problem On home oxygen therapy Z99.81 Active 155092504606 Problem Urinary incontinence R32 Active 002702455 Problem Essential hypertension I10 Active 52732104 Problem Microcytic anemia D50.9 Active 170464900 Problem Gastroesophageal reflux disease without esophagitis K21.9 Active 797583968 ALLERGIES Substance Reaction Event Type Date Status Bactrim Unknown Drug Allergy Feb, Active ENCOUNTERS Encounter Location Date Diagnosis [facility] [address] [id number], [place] [address] Mar, [facility] [address] [id number], [place] [address] Feb, Type 2 diabetes mellitus with other specified complication E11.69 ; 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.4 ; Essential hypertension I10 ; Hyperlipidemia LDL goal <70 E78.5 ; COPD (chronic obstructive pulmonary disease ) with 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 ; Microcytic anemia D50.9 ; Morbid (severe) obesity due to excess calories E66.01 ; Body mass index (BMI) of 39.0-39.9 in adult Z68.39 ; Hypothyroidism E03.9 and Seasonal allergic rhinitis due to pollen J30.1 [place] [address] [address] November, Pneumonia of right lower lobe due to infectious organism J18.1 ; detention current use of insulin Z79.4 ; Type [...] without esophagitis K21.9 and Allergic rhinitis J30.9 [facility] [address] [address] November, [place] [address] [address]- 1518 Sep, [place] [address] [address]- 0529 Sep, [place] [address] [address]83- 6[address] Sep, [place] [address] [address]- 5755 Sep, [facility] [address] [address] Jul, Encounter for immunization Z23 [facility] [address] [address] Jun, Subacute maxillary sinusitis J01.00 [place] [address], [place] [address] May, [place] [address] [place] [id number] [place] [address] 09606- 6319 May, [place] [address] [place] [id number] [place] [address] 84952- 2937 May, Type II diabetes mellitus E11.9 ; Hypothyroidism E03.9 ; 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 ; Cough R05 ; COPD with exacerbation J44.1 and Pneumonia of right lower lobe due to infectious organism J18.1 [place] [address] [place] [id number] [place] [address] 60371- 2600 Mar, Hyperlipidemia, unspecified hyperlipidemia type E78.5 [place] [address] [place] [id number] [place] [address] 84373- 3208 Mar, Hypothyroidism E03.9 and Hyperlipidemia, unspecified hyperlipidemia type E78.5 [place] [address] [place] [id number] [place] [address] 09179- 3629 Feb, Type II diabetes mellitus E11.9 ; Hypothyroidism E03.9 ; 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 ; Obesity due to excess calories E66.09 ; Allergic rhinitis J30.9 ; Microcytic anemia D50.9 ; Gastroesophageal reflux disease without esophagitis K21.9 ; Essential hypertension I10 ; Hyperlipidemia, unspecified hyperlipidemia type E78.5 ; Recurrent major depressive disorder, in full remission F33.42 and Urinary incontinence R32 [place] [id number] [place] [address] 62811- 5304 Jan, [place] [address] [place] [id number] [place] [address] 93824- 5640 Jan, [place] [address] [place] [id number] [place] [address] 43578- 7478 November, [place] [address] [place] [id number] [place] [address] 64454- 3534 Sep, Type II diabetes mellitus E11.9 ; [...] and Tinea pedis of both feet B35.[address] [address]- [address] Jun, [facility] [address] [address] Jun, Acute upper respiratory infection, unspecified J06.9 and Other viral agents as the cause of diseases classified elsewhere B97.[address] [address]- 9444 May, [address] [address]- 2385 May, Type 2 diabetes mellitus with hyperglycemia [...] thrush B37.0 and Encounter for immunization Z23 [place] [address] [place] [id number] [place] [address] 11001- 9288 Apr, [place] [address] 51040- 2867 Apr, [address] [address]- 4664 Mar, [place] [address] [place] [id number] [place] [address] 86075- 9098 Dec, [address] 87073- 7106 Dec, [facility] [address] [place] [id number] [place] [address] 56223- 4656 Dec, Encounter for well woman exam with routine gynecological exam Z01.419 ; Encounter for screening for malignant neoplasm of cervix Z12.4 ; Screening mammogram, encounter for Z12.31 ; Encounter for screening breast examination Z12.39 ; On home oxygen therapy Z99.81 ; 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 ; Heat rash L74.0 ; Type II diabetes mellitus E11.9 and Hypothyroidism E03.9 [facility] [address] [place] [id number] [place] [address] 46053- 4640 November, [place] [address] 22459- 4157 November, Type II diabetes mellitus E11.9 ; Allergic rhinitis J30.9 ; Hypothyroidism E03.9 ; Obesity due to excess calories E66.09 ; Urinary incontinence R32 ; Gastroesophageal reflux disease without esophagitis K21.9 and Essential hypertension I10 [facility] [address] [place] [id number] [place] [address] 18230- 1484 Oct, [facility] [address] 11431- 9462 Sep, [facility] [address] [place] [id number] [place] [address] 47107- 8041 Sep, [facility] [address] [place] [id number] [place] [address] 96990 -2026 Aug, Acute maxillary sinusitis J01.00 [facility] [address] [place] [id number] [place] [address] 90213- 2925 Aug, [facility] [address] 24161- 4846 Aug, [facility] [address] [place] [id number] [place] [address] 07045- 2986 Aug, Type II diabetes mellitus E11.9 [place] [address] [place] [id number] [place] [address] 74764- 1908 05 Aug, 2015 Type II diabetes mellitus E11.9 ; Hypothyroidism E03.9 ; 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 ; Obesity due to excess calories E66.09 ; Urinary incontinence R32 ; Anemia D64.9 ; Microcytic anemia D50.9 and Allergic rhinitis J30.9 [place] [address] 79728- 9761 May, Upper respiratory symptom R09.89 [place] [address] [place] [id number] [place] [address] 48275- 9378 May, Oral thrush B37.0 [place] [address] [place] [id number] [place] [address] 53599- 6366 Apr, Hypothyroidism E03.9 and Microcytic anemia D50.9 [place] [address] [place] [id number] [place] [address] 97631- 8669 Apr, Encounter for long-term current use of medication Z79.899 ; Hypothyroidism E03.9 ; Microcytic anemia D50.9 ; Type 2 diabetes mellitus without complication E11.9 ; Essential hypertension I10 and Mixed incontinence N39.46 [place] [address] [place] [id number] [place] [address] 55064- 3219 Apr, [place] [id number] [place] [address] 24867- 3693 Mar, [place] [address] [place] [id number] [place] [address] 97508- 1250 Mar, [place] [address] [place] [id number] [place] [address] 15100- 5901 Mar, [place] [address] [place] [id number] [place] [address] 67539- 8134 Mar, [place] [id number] [place] [address] 39678- 9113 Mar, [place] [address] [id number] [address]- 9156 Mar, [facility] [id number] [place] [address] 15977- 0396 Mar, [facility] [address], [place] [address]- 1296 Feb, Cough 786.2 ; Wheezing 786.07 ; Hypothyroidism 244.9 and Encounter for long-term current use of medication V58.69 [facility] [address] [id number] [address] 4732 Feb, Diabetes type 2, uncontrolled 250.02 ; Depression 311 ; Encounter for long-term current use of medication V58.69 and Hypothyroidism 244.9 [facility] [address], [place] [address]- 0966 Feb, [facility] [address] [place] [id number] [place] [address] 96139- 4336 Jan, [facility] [address] [address]- 8280 Oct, [facility] [address], [place] [address]- 6989 Oct, [facility] [address], [place] [address]- 8356 Oct, [facility] [address], [place] [address]- 3946 Sep, [facility] [address], [place] [address]- 9048 Sep, [facility] [address], [place] [address]- 8696 Sep, [facility] [address], [place] [address]- 1786 Aug, [facility] [address], [place] [address]- 2736 Aug, [facility] [place] [facility] [address] [id number] [place] [address]- 8307 Jul, [facility] [place] [facility] [address] [id number] [place] [address]- 8482 Jul, [facility] [place] [facility] [address] [id number] [place] [address]- 2117 Jul, [facility] [place] [facility] [address] [id number] [place] [address]- 7704 Jul, [facility] [place] [facility] [address] [id number] [place] [address]- 7779 Jul, [facility] [place] [facility] [address] [id number] [place] [address]- 1296 Jul, [facility] [place] [facility] [address] [id number] [place] [address]- 6687 Jul, [facility] [place] [facility] [address] [id number] [place] [address]- 4549 Jul, [facility] [place] [facility] [address] [id number] [place] [address]- 4826 Jun, [facility] [place] [facility] [address] [id number] [place] [address]- 5358 Jun, [facility] [place] [facility] [address] [id number] [place] [address]- 4769 May, [facility] [place] [facility] [address] [id number] [place] [address]- 9824 May, [facility] [place] [facility] [address] [id number] [place] [address]- 9126 May, [facility] [place] [facility] [address] [id number] [place] [address]- 1666 Apr, [facility] [place] [facility] [address] [id number] [place] [address]- 9069 Apr, [facility] [place] [facility] [address] [id number] [place] [address]- 7276 Apr, [facility] [place] [facility] [address] [id number] [place] [address]- 3487 Apr, [facility] [place] [facility] [address] [id number] [place] [address]- 0149 Apr, [facility] [place] [facility] [address] [id number] [place] [address]- 6816 Apr, [facility] [place] [facility] [address] [id number] [place] [address]- 3412 Mar, [facility] [place] [facility] [address] [id number] [place] [address]- 5187 Mar, [facility] [place] [facility] [address] [id number] [place] [address]- 0995 Mar, [facility] [place] [facility] [address] [id number] [place] [address]- 2759 Mar, [facility] [place] [facility] [address] [id number] [place] [address]- 0028 Sep, [facility] [place] [facility] [address] [id number] [place] [address]- 2139 Sep, [facility] [place] [facility] [address] [id number] [place] [address]- 8094 Sep, [facility] [place] [facility] [address] [id number] [place] [address]- 8055 Sep, [facility] [place] [facility] [address] [id number], [place] [address]- 6031 Aug, [facility] [place] [facility] [address] [id number] [place] [address]- 2696 Aug, [facility] [place] [facility] [address] [id number] [place] [address]- 0043 Aug, [facility] [place] [facility] [address] [id number] [place] [address]- 7587 Aug, [facility] [place] [facility] [address] [id number] [place] [address]- 4658 Aug, [facility] [place] [facility] [address] [id number] [place] [address]- 3264 Aug, [facility] [place] [facility] [address] [id number] [place] [address]- 7956 Jul, [facility] [place] [facility] [address] [id number] [place] [address]- 1939 Jul, [facility] [place] [facility] [address] [id number] [place] [address]- 1257 Jul, [facility] [place] [facility] [address] [id number] [place] [address]- 7559 Jul, [facility] [place] [facility] [address] [id number] [place] [address]- 9889 Jun, [facility] [place] [facility] [address] [id number] [place] [address]- 3661 Jun, [facility] [place] [facility] [address] [id number] [place] [address]- 0240 May, [facility] [place] [facility] [address] [id number] [place] [address]- 5419 May, [facility] [place] [facility] [address] [id number] [place] [address]- 7577 Apr, [facility] [place] [facility] [address] [id number] [place] [address]- 4994 Apr, [facility] [place] [facility] [address] [id number] [place] [address]- 0585 Apr, [facility] [place] [facility] [address] [id number] [place] [address]- 6320 19 Mar, 2013 [facility] [place] [facility] [address] [id number] [place] [address]- 4730 11 Mar, 2013 [facility] [place] [facility] [address] [id number] [place] [address]- 0855 Mar, [facility] [address] [id number] [place] [address]- 9770 Mar, [facility] [place] [facility] [address] [id number] [place] [address]- 4346 Feb, [facility] [place] [facility] [address] [id number] [place] [address]- 3389 Jan, [facility] [place] [facility] [address] [id number] [place] [address]- 5401 Jan, [facility] [address] [id number] [place] [address]- 3993 Jan, [facility] [place] [facility] [address] [id number] [place] [address]- 2060 Jan, [facility] [place] [facility] [address] [id number] [place] [address]- 8293 Dec, [facility] [place] [facility] [address] [id number] [place] [address]- 2157 Dec, [facility] [place] [facility] [address] [id number] [place] [address]- 7813 Dec, [facility] [place] [facility] [address] [id number] [place] [address]- 9846 Dec, [facility] [place] [facility] [address] [id number], [place] [address]- 7535 Dec, [facility] [place] [facility] [address] [id number], [place] [address]- 6055 Dec, [facility] [place] [facility] [address] [id number] [place] [address]- 1071 November, [facility] [place] [facility] [address] [id number] [place] [address]- 5631 November, [facility] [place] [facility] [address] [id number] [place] [address]- 2065 November, [facility] [place] [facility] [address] [id number] [place] [address]- 0131 24 Oct, 2012 [facility] [address] [id number] [place] [address]- 2059 Oct, [facility] [address] [id number] [place] [address]- 2046 Sep, [facility] [address] [id number] [place] [address]- 5531 Sep, [facility] [address] [id number] [place] [address]- 2549 Sep, [facility] [address] [id number] [place] [address]- 4158 Sep, [facility] [address] [id number] [place] [address]- 2546 Sep, [facility] [address] [id number] [place] [address]- 9919 Aug, [facility] [address] [id number] [place] [address]- 2667 Aug, [facility] [address] [id number] [address]- 2231 Aug, [facility] [address] [id number] [place] [address]- 1608 Aug, [facility] [address] [id number] [place] [address]- 2546 Aug, [facility] [address] [id number] [place] [address]- 0663 Jul, [facility] [place] [facility] [address] [id number] [place] [address]- 2546 Jul, [facility] [address] [id number] [place] [address]- 2546 Jun, [facility] [address] [id number] [place] [address]- 9041 Jun, [facility] [place] [facility] [address] [id number] [place] [address]- 5724 Jun, [facility] [place] [facility] [address] [id number] [place] [address]- 5971 Jun, [facility] [place] [facility] [address] [id number] [place] [address]- 2277 Jun, [facility] [place] [facility] [address] [id number] [place] [address]- 6049 Jun, [facility] [place] [facility] [address] [id number] [place] [address]- 2034 Jun, [facility] [place] [facility] [address] [id number] [place] [address]- 4663 Jun, [facility] [place] [facility] [address] [id number] [place] [address]- 3070 Jun, [facility] [place] [facility] [address] [id number] [place] [address]- 1074 May, [facility] [place] [facility] [address] [id number] [place] [address]- 6510 May, [facility] [place] [facility] [address] [id number], [place] [address]- 6490 May, [facility] [place] [facility] [address] [id number], [place] [address]- 6959 May, [facility] [place] [facility] [address] [id number], [place] [address]- 0678 May, [facility] [place] [facility] [address] [id number] [place] [address]- 3524 May, [facility] [place] [facility] [address] [id number], [place] [address]- 3561 May, [facility] [place] [facility] [address] [id number] [place] [address]- 7440 Apr, [facility] [place] [facility] [address] [id number] [place] [address]- 9402 11 Mar, 2012 [facility] [place] [facility] [address] [id number] [place] [address]- 1326 07 Mar, 2012 [facility] [place] [facility] [address] [id number] [place] [address]- 9320 Feb, [facility] [place] [facility] [address] [id number] [place] [address]- 5796 Feb, [facility] [place] [facility] [address] [id number] [place] [address]- 8971 Feb, [facility] [place] [facility] [address] [id number] [place] [address]- 0887 Feb, [facility] [place] [facility] [address] [id number] [place] [address]- 8166 Jan, [facility] [place] [facility] [address] [id number] [place] [address]- 2544 Jan, [facility] [place] [facility] [address] [id number] [place] [address]- 0324 Jan, [facility] [place] [facility] [address] [id number] [place] [address] Jan, [facility] [place] [facility] [address] [id number] [place] [address] Dec, [facility] [place] [facility] [address] [id number] [place] [address] Dec, [facility] [place] [facility] [address] [id number] [place] [address] 17 Dec, 2011 [facility] [place] [facility] [address] [id number] [place] [address] 15 Dec, 2011 [facility] [place] [facility] [address] [id number] [place] [address] 13 Dec, 2011 [facility] [place] [facility] [address] [id number] [place] [address] 06 Sep, 2011 [facility] [place] [facility] [id number] [place] [address] Aug, [facility] [id number] [place] [address] Jul, [facility] [id number] [place] [address] Jun, [facility] [id number] [place] [address] Jun, [facility] [id number], [place] [address] Jun, [facility] [id number], [place] [address] Jun, [facility] [id number] [place] [address] May, [facility] [id number] [place] [address] May, [facility] [id number] [place] [address] Apr, [facility] [id number], [place] [address] Jun, [facility] [id number] [address] Apr, IMMUNIZATIONS Vaccine Route Administration Date Status DEXAMETHASONE 4MG/ML (PER 1 MG) IM Intramuscular Mar 21, 2018 Administered DEPO MEDROL 40 MG/ML IM Intramuscular Mar 21, 2018 Administered SOCIAL HISTORY Never Assessed REASON FOR VISIT 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 PLAN OF CARE Activity Details Follow Up 3 Months, prn Reason:CHM/DM cristiano/Peterson Pending Test LIPID PANEL Pending Test CMP Pending Test CBC Pending Test THYROID ANALYZER VITAL SIGNS Height 66 in 2018-03-21 Weight 246.0 lbs 2018-03-21 Temperature 98.2 degrees Fahrenheit 2018-03-21 Heart Rate 112 bpm 2018-03-21 Respiratory Rate 2018-03-21 BMI 39.70 kg/m2 2018-03-21 Blood pressure systolic 144 mmHg 2018-03-21 Blood pressure diastolic 76 mmHg 2018-03-21 MEDICATIONS Medication Instructions Dosage Frequency Start Date End Date Duration Status Loratadine 10 MG TAKE ONE TABLET BY MOUTH ONCE DAILY 90 Active Lisinopril 2.5 MG TAKE ONE TABLET BY MOUTH ONCE DAILY Active Spiriva HandiHaler 18 MCG Inhalation Once a day 1 capsule 24h 25 Feb, 2023 Active Nystatin-Triamcinolone 874618-1.1 UNIT/GM Externally Twice a day apply thin layer to rash twice a day 12h 23 Dec, 2015 Active Levothyroxine Sodium 175 MCG TAKE ONE TABLET BY MOUTH IN THE MORNING ON AN EMPTY STOMACH WITH A FULL GLASS OF WATER Active Famotidine 20 mg Orally Twice a day TAKE ONE TABLET BY MOUTH TWICE DAILY 12h Active Furosemide 40 MG TAKE ONE TABLET BY MOUTH ONCE DAILY 90 Active Advair Diskus 250-50 MCG/DOSE INHALE ONE PUFF BY MOUTH TWICE DAILY APPROXIMATELY 12 HOURS APART Active Ipratropium-Albuterol 0.5 mg-3 mg(2.5 mg base)/3 mL Inhalation Four times a day & prn up to 6 doses 3 ml Jul, Active Metformin HCl 500 MG TAKE ONE TABLET BY MOUTH TWICE DAILY WITH MEALS Active ProAir HFA 108 (90 Base) MCG/ACT Inhalation every 4 hrs 2 puffs as needed 4h Active Atorvastatin Calcium 10 MG TAKE ONE TABLET BY MOUTH ONCE DAILY 90 Active GlipiZIDE 5 mg Orally 2 times a day 1 tablet 12h Active Oxygen Active Montelukast Sodium 10 MG TAKE ONE TABLET BY MOUTH ONCE DAILY 90 Active Norvasc 10 mg Orally Once a day 1 tablet 1 time per day 24h Active Potassium Chloride Windy ER 10 MEQ TAKE ONE TABLET BY MOUTH ONCE DAILY 90 Active Paroxetine HCl 40 MG TAKE ONE TABLET BY MOUTH ONCE DAILY IN THE MORNING 90 Active VESIcare 5 mg Orally Once a day TAKE ONE TABLET BY MOUTH ONCE DAILY 24h 90 days Active Fish Oil 1000 MG Orally Once a day 2 capsule 24h Active Flonase 50 mcg/actuation Nasally 2 spray(s) intranasally 2 times a day 1 sprays by Nasal route 2 times per day in each nostril Jun, Active Albuterol Sulfate 2.5 mg /3 mL (0.083 %) Inhalation 4 times a day 1 Each by Inhalation route 4 times a day PRN for cough and wheeze 6h Sep, Active RESULTS No Results PROCEDURES Procedure Date Ordered Result Body Site GLYCATED HEMOGLOBIN TEST Mar 21, 2018 LAB NOT BILLED BY [facility] Mar 21, 2018 MICROALBUMIN, SEMIQUANT Mar 21, 2018 DEPO MEDROL 40 MG/ML Mar 21, 2018 INSTRUCTIONS MEDICATIONS ADMINISTERED No Known Medications [...]
--- OUTSIDE RECORDS SUMMARY | 2018-10-30 20:35 | XMS REPORT ---
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 Active 187595229 Problem Recurrent major depressive disorder, in full remission F33.42 Active 256493366 Problem Hyperlipidemia, unspecified hyperlipidemia type E78.5 Active 98732524 Problem Type 2 diabetes mellitus with other specified complication E11.69 Active 59350973 Problem Tobacco abuse counseling Z71.6 Active 442051457 Problem Microcytic anemia D50.9 Active 764808094 Problem 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 93505276 Problem Allergic rhinitis J30.9 Active 49470052 Problem Urinary incontinence R32 Active 092774038 Problem Hypothyroidism E03.9 Active 88007716 Problem Obesity due to excess calories E66.09 Active 088396927 ALLERGIES Substance Reaction Event Type Date Status Bactrim Unknown Drug Allergy November, Active ENCOUNTERS Encounter Location Date Diagnosis [facility] [address] [facility] [id number] [address] Feb, [facility] [address] [facility] [id number] [address] November, Pneumonia of right lower lobe due [...] without esophagitis K21.9 and Allergic rhinitis J30.9 [facility] [address] [id number] [place] [address] 46543- 5376 November, [facility] [address] [address]- 45[address] Sep, [facility] [address] [address]- 8345 Sep, [place] [address] 8[address]67- 1314 Sep, [place] [address] 24645- 8699 Sep, [facility] [address] [address] Jul, Encounter for immunization Z23 [facility] [address] [address] Jun, Subacute maxillary sinusitis J01.00 [place] [id number] [place] [address] 04354- 6916 May, [place] [id number] [place] [address] 10426- 8291 May, [place] [id number] [place] [address] 80008- 1078 May, Type II diabetes mellitus E11.9 ; Hypothyroidism E03.9 ; 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 ; Cough R05 ; COPD with exacerbation J44.1 and Pneumonia of right lower lobe due to infectious organism J18.1 [place] [id number] [place] [address] 55044- 4640 08 Mar, 2017 Hyperlipidemia, unspecified hyperlipidemia type E78.5 [place] [id number] [place] [address] 01864- 6833 Mar, Hypothyroidism E03.9 and Hyperlipidemia, unspecified hyperlipidemia type E78.5 [place] [id number] [place] [address] 89557- 2706 Feb, Type II diabetes mellitus E11.9 ; Hypothyroidism E03.9 ; 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 ; Obesity due to excess calories E66.09 ; Allergic rhinitis J30.9 ; Microcytic anemia D50.9 ; Gastroesophageal reflux disease without esophagitis K21.9 ; Essential hypertension I10 ; Hyperlipidemia, unspecified hyperlipidemia type E78.5 ; Recurrent major depressive disorder, in full remission F33.42 and Urinary incontinence R32 [place] [id number] [place] [address] 52854- 6017 Jan, [place] [address] 9[address]88- 1393 Jan, [place] [id number] [place] [address] 24494- 1168 November, [place] [id number] [place] [address] 62202- 8304 Sep, Type II diabetes mellitus E11.9 ; [...] pedis of both feet B35.3 [place] [id number] [place] [address] 17996- 5743 Jun, [facility] [id number] [place] [address] 11363 -3698 Jun, Acute upper respiratory infection, unspecified J06.9 and Other viral agents as the cause of diseases classified elsewhere B97.89 [place] [id number] [place] [address] 03462- 3555 May, [address] 25521- 7842 May, Type 2 diabetes mellitus with hyperglycemia [...] thrush B37.0 and Encounter for immunization Z23 [place] [id number] [place] [address] 50301- 4335 Apr, [address] 72494- 4855 Apr, [address] 26429- 7470 Mar, [address] 43138- 2836 Dec, [place] [id number] [place] [address] 81937- 6727 Dec, [place] [id number] [place] [address] 42316- 7804 Dec, Encounter for well woman exam with routine gynecological exam Z01.419 ; Encounter for screening for malignant neoplasm of cervix Z12.4 ; Screening mammogram, encounter for Z12.31 ; Encounter for screening breast examination Z12.39 ; On home oxygen therapy Z99.81 ; 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 ; Heat rash L74.0 ; Type II diabetes mellitus E11.9 and Hypothyroidism E03.9 [place] [id number] [place] [address] 51294- 1011 November, [address] 29771- 7808 November, Type II diabetes mellitus E11.9 ; Allergic rhinitis J30.9 ; Hypothyroidism E03.9 ; Obesity due to excess calories E66.09 ; Urinary incontinence R32 ; Gastroesophageal reflux disease without esophagitis K21.9 and Essential hypertension I10 [facility] [id number] [place] [address] 50508- 7277 Oct, [facility] [address] 21568- 0240 Sep, [facility] [address] 96753- 1599 Sep, [facility] [address] 38129 -1056 Aug, Acute maxillary sinusitis J01.00 [place] [address] 79085- 0691 Aug, [facility] [address] 18959- 9081 Aug, [place] [address] 46860- 5747 Aug, Type II diabetes mellitus E11.9 [place] [address] 22432- 2177 05 Aug, 2015 Type II diabetes mellitus E11.9 ; Hypothyroidism E03.9 ; 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 ; Obesity due to excess calories E66.09 ; Urinary incontinence R32 ; Anemia D64.9 ; Microcytic anemia D50.9 and Allergic rhinitis J30.9 [place] [address] 59033- 5103 May, Upper respiratory symptom R09.89 [place] [address] 49432- 0318 09 May, 2015 Oral thrush B37.0 [place] [address] 10671- 8910 Apr, Hypothyroidism E03.9 and Microcytic anemia D50.9 [place] [address] [id number] [place] [address] 74077- 4118 Apr, Encounter for long-term current use of medication Z79.899 ; Hypothyroidism E03.9 ; Microcytic anemia D50.9 ; Type 2 diabetes mellitus without complication E11.9 ; Essential hypertension I10 and Mixed incontinence N39.46 [facility] [address] 49177- 8226 Apr, [facility] [id number] [place] [address] 13820- 9576 Mar, [place] [id number] [place] [address] 83699- 8693 Mar, [place] [id number] [place] [address] 40242- 5657 Mar, [facility] [address] 49012- 2810 Mar, [facility] [id number] [place] [address] 74279- 7829 Mar, [facility] [id number] [place] [address] 91381- 8411 Mar, [place] [id number] [place] [address] 36225- 3260 Mar, [facility] [id number] [place] [address] 09086- 3265 Feb, Cough 786.2 ; Wheezing 786.07 ; Hypothyroidism 244.9 and Encounter for long-term current use of medication V58.69 [place] [id number] [place] [address] 01096- 8701 Feb, Diabetes type 2, uncontrolled 250.02 ; Depression 311 ; Encounter for long-term current use of medication V58.69 and Hypothyroidism 244.9 [place] [address] [place] [facility] [address] 5915 Feb, [facility] [place] [facility] [address] [id number] [place] [address]- 8468 Jan, [facility] [place] [facility] [address] [id number] [place] [address]- 4573 Oct, [facility] [place] [facility] [address] [id number] [place] [address]- 6189 Oct, [facility] [place] [facility] [address] [id number] [place] [address]- 9242 Oct, [facility] [place] [facility] [address] [id number] [place] [address]- 2726 Sep, [facility] [place] [facility] [address] [id number] [place] [address]- 1078 Sep, [facility] [place] [facility] [address] [id number] [place] [address]- 1416 Sep, [facility] [place] [facility] [address] [id number] [place] [address]- 9354 Aug, [facility] [place] [facility] [address] [id number] [place] [address]- 9794 Aug, [facility] [place] [facility] [address] [facility] [id number] [place] [address]- 1549 Jul, [facility] [place] [facility] [address] [id number] [place] [address]- 9339 Jul, [facility] [place] [facility] [address] [id number] [place] [address]- 7022 Jul, [facility] [place] [facility] [address] [id number] [place] [address]- 8102 Jul, [facility] [place] [facility] [address] [facility] [id number] [place] [address]- 8897 Jul, [facility] [place] [facility] [address] [id number] [place] [address]- 6692 Jul, [facility] [place] [facility] [address] [id number] [place] [address]- 3182 Jul, [facility] [place] [facility] [address] [id number] [place] [address]- 8187 Jul, [facility] [place] [facility] [address] [id number] [place] [address]- 3675 Jun, [facility] [place] [facility] [address] [id number] [place] [address]- 4352 Jun, [facility] [place] [facility] [address] [id number] [place] 4533 May, [facility] [place] [facility] [address] [id number] [place] [address]- 8908 May, [facility] [place] [facility] [address] [id number] [place] [address]- 5004 May, [facility] [place] [facility] [address] [id number] [place] [address]- 0648 Apr, [facility] [place] [facility] [address] [id number] [place] [address]- 6951 Apr, [facility] [place] [facility] [address] [id number] [place] [address]- 3821 Apr, [facility] [place] [facility] [address] [id number] [place] [address]- 1947 Apr, [facility] [place] [facility] [address] [id number] [address]- 0246 Apr, [facility] [place] [facility] [address] [id number] [place] [address]- 9416 Apr, [facility] [place] [facility] [address] [id number] [place] 5924 Mar, [facility] [place] [facility] [address] [id number] [address]- 3015 Mar, [facility] [place] [facility] [address] [id number] [place] [address]- 4094 Mar, [facility] [place] [facility] [address] [id number] [place] [address]- 8106 Mar, [facility] [place] [facility] [address] [id number] [place] 8746 Sep, [facility] [place] [facility] [address] [id number] [place] [address]- 0623 Sep, [facility] [place] [facility] [address] [id number] [place] [address]- 4121 Sep, [facility] [place] [facility] [address] [id number] [place] [address]- 8967 Sep, [facility] [place] [facility] [address] [id number] [place] [address]- 3119 Aug, [facility] [place] [facility] [address] [id number] [place] [address]- 5495 Aug, [facility] [place] [facility] [address] [id number] [place] [address]- 6592 Aug, [facility] [place] [facility] [address] [id number] [place] [address]- 9801 Aug, [facility] [place] [facility] [address] [facility] [id number] [place] [address]- 5525 Aug, [facility] [place] [facility] [address] [id number] [place] [address]- 7109 Aug, [facility] [place] [facility] [address] [id number] [place] [address]- 6149 Jul, [facility] [place] [facility] [address] [id number] [place] [address]- 6104 Jul, [facility] [place] [facility] [address] [id number] [place] [address]- 2199 Jul, [facility] [place] [facility] [address] [id number] [place] [address]- 7933 Jul, [facility] [place] [facility] [address] [id number] [place] [address]- 2352 Jun, [facility] [place] [facility] [address] [id number] [place] [address]- 4747 Jun, [facility] [place] [facility] [address] [id number] [place] [address]- 2546 May, [facility] [place] [facility] [address] [id number] [place] [address]- 2548 May, [facility] [address] [id number] [place] [address]- 4147 Apr, [facility] [place] [facility] [address] [id number] [place] [address]- 8063 Apr, [facility] [address] [id number] [place] [address]- 3163 Apr, [facility] [address] [id number] [place] [address]- 0510 Mar, [facility] [place] [facility] [address] [id number] [place] [address]- 5323 Mar, [facility] [place] [facility] [address] [id number] [place] [address]- 7381 Mar, [facility] [place] [facility] [address] [id number] [place] [address]- 2540 Mar, [facility] [place] [facility] [address] [id number] [place] [address]- 2549 Feb, [facility] [place] [facility] [address] [id number] [place] [address]- 2547 Jan, [facility] [place] [facility] [address] [id number] [place] [address]- 2548 Jan, [facility] [place] [facility] [address] [id number] [place] [address]- 2546 Jan, [facility] [place] [facility] [address] [id number] [place] [address]- 8287 Jan, [facility] [address] [id number] [place] [address]- 4332 Dec, [facility] [place] [facility] [address] [id number] [place] [address]- 6828 Dec, [facility] [place] [facility] [address] [id number] [place] [address]- 9583 Dec, [facility] [place] [facility] [address] [id number] [place] [address]- 2273 Dec, [facility] [place] [facility] [address] [id number] [place] [address]- 8060 Dec, [facility] [place] [facility] [address] [id number] [place] [address]- 6779 Dec, [facility] [place] [facility] [address] [id number] [place] [address]- 8156 November, [facility] [place] [facility] [address] [id number] [place] [address]- 5360 November, [facility] [place] [facility] [address] [id number] [place] [address]- 9887 November, [facility] [place] [facility] [address] [id number] [place] [address]- 4771 Oct, [facility] [place] [facility] [address] [id number] [place] [address]- 2575 Oct, [facility] [place] [facility] [address] [id number] [place] [address]- 1154 Sep, [facility] [place] [facility] [address] [id number] [place] [address]- 7848 Sep, [facility] [place] [facility] [address] [id number] [place] 3375 Sep, [facility] [place] [facility] [address] [id number] [place] [address]- 8126 Sep, [facility] [place] [facility] [address] [id number] [place] [address]- 3525 Sep, [facility] [address] [id number] [place] [address]- 4861 Aug, [facility] [place] [facility] [address] [id number] [place] [address]- 5276 Aug, [facility] [place] [facility] [address] [id number] [place] [address]- 4106 Aug, [facility] [place] [facility] [address] [id number] [place] [address] 2542 07 Aug, 2012 [facility] [place] [facility] [address] [id number] [place] [address]- 3379 Aug, [facility] [address] [id number] [place] [address]- 1147 Jul, [facility] [address] [id number] [place] [address]- 2201 Jul, [facility] [address] [id number] [place] [address]- 0625 Jun, [facility] [address] [id number] [place] [address]- 6143 Jun, [facility] [address] [id number] [place] [address]- 7535 18 Jun, 2012 [facility] [place] [facility] [address] [id number] [place] [address]- 2985 18 Jun, 2012 [facility] [place] [facility] [address] [id number] [place] [address]- 4121 10 Jun, 2012 [facility] [place] [facility] [address] [id number] [place] [address]- 1796 10 Jun, 2012 [facility] [place] [facility] [address] [id number] [place] [address]- 1512 07 Jun, 2012 [facility] [place] [facility] [address] [id number] [place] [address]- 0861 Jun, [facility] [place] [facility] [address] [id number] [place] 6037 Jun, [facility] [place] [facility] [address] [id number] [place] [address]- 1047 May, [facility] [place] [facility] [address] [id number] [place] [address]- 8669 May, [facility] [place] [facility] [address] [id number] [place] [address]- 8650 May, [facility] [place] [facility] [address] [id number] [place] [address]- 4069 May, [facility] [place] [facility] [address] [id number] [place] [address]- 2404 May, [facility] [place] [facility] [address] [id number] [place] [address]- 5560 May, [facility] [place] [facility] [address] [id number] [place] [address]- 0897 May, [facility] [place] [facility] [address] [id number] [place] [address]- 8041 Apr, [facility] [place] [facility] [address] [id number] [place] [address]- 5026 Mar, [facility] [place] [facility] [address] [id number] [place] [address]- 4542 Mar, [facility] [place] [facility] [address] [id number] [place] [address]- 4710 Feb, [facility] [place] [facility] [address] [id number] [place] [address]- 8535 Feb, [facility] [place] [facility] [address] [id number] [place] [address]- 7005 Feb, [facility] [place] [facility] [address] [id number] [place] [address]- 0182 Feb, [facility] [place] [facility] [address] [id number] [place] [address]- 7412 31 Jan, 2012 [facility] [address] [id number] [place] [address]- 5857 23 Jan, 2012 [facility] [address] [id number] [place] [address]- 8726 Jan, [facility] [address] [id number] [place] [address]- 3256 06 Jan, 2012 [facility] [address] [id number] [place] [address]- 9265 20 Dec, 2011 [facility] [address] [id number] [place] [address]- 2492 Dec, [facility] [address] [id number] [place] [address]- 3545 17 Dec, 2011 [facility] [address] [id number] [place] [address]- 2373 15 Dec, 2011 [facility] [address] [id number] [place] [address]- 0834 Dec, [facility] [address] [id number] [place] [address]- 6972 Sep, [facility] [address] [id number] [place] [address]- 3856 Aug, [facility] [address] [id number] [place] [address]- 0334 Jul, [facility] [address] [id number] [place] [address]- 8973 16 Jun, 2011 [facility] [place] [facility] [address] [id number] [place] [address]- 7084 Jun, [facility] [address] [id number] [place] [address]- 0590 Jun, [facility] [address] [id number] [place] [address]- 1073 Jun, [facility] [address] [facility] [id number] [place] [address]- 3288 May, [facility] [address] [id number] [address] May, [facility] [address] [facility] [id number] [place] [address] Apr, [facility] [id number] [address] Jun, [facility] [address] [facility] [id number] [place] [address] Apr, IMMUNIZATIONS No Known Immunizations SOCIAL HISTORY Never Assessed REASON FOR VISIT [facility] follow up, oxygen level was low- kvng kaiser, hospitalized for 2 days PLAN OF CARE Activity Details Follow Up 3 Months, prn Reason:CHM/DM VITAL SIGNS Height 66 in 2017-12-03 Weight 242.5 lbs 2017-12-03 Temperature 97.9 degrees Fahrenheit 2017-12-03 Heart Rate 96 bpm 2017-12-03 Respiratory Rate 22 2017-12-03 Oximetry 93 % 2017-12-03 BMI 39.14 kg/m2 2017-12-03 Blood pressure systolic 130 mmHg 2017-12-03 Blood pressure diastolic 74 mmHg 2017-12-03 MEDICATIONS Medication Instructions Dosage Frequency Start Date End Date Duration Status Metformin HCl 500 MG TAKE ONE TABLET BY MOUTH TWICE DAILY WITH MEALS Active Paroxetine HCl 40 mg Orally Once a day 1 tablet in the morning 24h Active Norvasc 10 mg Orally Once a day 1 tablet 1 time per day 24h Active Famotidine 20 mg Orally Twice a day TAKE ONE TABLET BY MOUTH TWICE DAILY 12h Active Lisinopril 2.5 MG Orally Once a day TAKE ONE TABLET BY MOUTH ONCE DAILY 24h Active Advair Diskus 250-50 MCG/DOSE INHALE ONE PUFF BY MOUTH TWICE DAILY APPROXIMATELY 12 HOURS APART 30 Active Ipratropium-Albuterol 0.5 mg-3 mg(2.5 mg base)/3 mL Inhalation Four times a day & prn up to 6 doses 3 ml Jul, Active Albuterol Sulfate 2.5 mg /3 mL (0.083 %) Inhalation 4 times a day 1 Each by Inhalation route 4 times a day PRN for cough and wheeze 6h 19 Sep, 2013 Active Pepcid 20 mg Orally 1 TAB orally 2 times a day 1 tablet by Oral route 2 times per day Sep, 90 days Not-Taking Advair Diskus 250-50 MCG/DOSE INHALE ONE PUFF BY MOUTH TWICE DAILY APPROXIMATELY 12 HOURS APART Active Potassium Chloride Windy ER 10 MEQ TAKE ONE TABLET BY MOUTH ONCE DAILY Active Lipitor 20 mg Orally Once a day 1/2 tablet 24h Active Montelukast Sodium 10 mg Orally Once a day TAKE ONE TABLET BY MOUTH ONCE DAILY 24h Active Nystatin-Triamcinolone 748826-0.1 UNIT/GM Externally Twice a day apply thin layer to rash twice a day 12h 23 Dec, 2015 Not-Taking Flonase 50 mcg/actuation Nasally 2 spray(s) intranasally 2 times a day 1 sprays by Nasal route 2 times per day in each nostril Jun, Active Levothyroxine Sodium 175 MCG Orally as directed TAKE ONE TABLET BY MOUTH IN THE MORNING ON AN EMPTY STOMACH WITH A FULL GLASS OF WATER Active VESIcare 5 mg Orally Once a day TAKE ONE TABLET BY MOUTH ONCE DAILY 24h 90 days Active Ferrous Sulfate 325 (65 Fe) MG TAKE ONE TABLET BY MOUTH ONCE DAILY 90 Not-Taking Oxygen Active ProAir HFA 108 (90 Base) MCG/ACT Inhalation every 4 hrs 2 puffs as needed 4h Active Loratadine 10 MG TAKE ONE TABLET BY MOUTH ONCE DAILY Active Furosemide 40 MG TAKE ONE TABLET BY MOUTH ONCE DAILY Active Fish Oil 1000 MG Orally Once a day 2 capsule 24h Active GlipiZIDE 5 mg Orally 2 times a day 1 tablet 12h Active Spiriva HandiHaler 18 MCG Inhalation Once a day 1 capsule 24h Feb, Active RESULTS Name Result Date Reference Range A1C (IN HOUSE) 2017-12-03 A1C IN HOUSE 6.8 4.3 - 5.6 % Previous A1c 6.5 Lot [id number] Exp date 09/10 Xray : Chest 2 View (IN HOUSE) 2017-12-03 PROCEDURES Procedure Date Ordered Result Body Site GLYCATED HEMOGLOBIN TEST December 03, 2017 X-RAY EXAM CHEST 2 VIEWS December 03, 2017 INSTRUCTIONS MEDICATIONS ADMINISTERED No Known Medications [...]
--- OUTSIDE RECORDS SUMMARY | 2018-10-30 20:36 | XMS REPORT ---
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 026570355 Problem Recurrent major depressive disorder, in full remission F33.42 Active 000062307 Problem Hyperlipidemia, unspecified hyperlipidemia type E78.5 Active 96835337 Problem Type 2 diabetes mellitus with other specified complication E11.69 Active 77696916 Problem Tobacco abuse counseling Z71.6 Active 517504756 Problem Microcytic anemia D50.9 Active 006696408 Problem 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 23827977 Problem Allergic rhinitis J30.9 Active 11370642 Problem Urinary incontinence R32 Active 647625854 Problem Hypothyroidism E03.9 Active 52719651 Problem Obesity due to excess calories E66.09 Active 494030225 ALLERGIES No Information ENCOUNTERS Encounter Location Date Diagnosis [facility] [address] [facility] [id number], [place] [address] Feb, [facility] [address] [facility] [id number], [place] [address] November, Pneumonia of right lower lobe due to infectious organism J18.1 ; [employer]orer [employer] 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 of insulin Z79.4 ; Type [...] without esophagitis K21.9 and Allergic rhinitis J30.9 [place] [address] [place] [id number] [place] [address] 49327- 2104 November, [place] [address] [address]77- 1076 Sep, [place] [address] 80308- 4560 Sep, [place] [address] 27033- 7381 Sep, [place] [address] 7[address]13- 0987 Sep, [facility] [place] [address] [address]28 Jul, Encounter for immunization Z23 [facility] [place] [address] [address] Jun, Subacute maxillary sinusitis J01.00 [place] [address] 01563- 7929 May, [place] [address] 02599- 2442 May, [place] [address] 15257- 9370 07 May, 2017 Type II diabetes mellitus E11.9 ; Hypothyroidism E03.9 ; 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 ; Cough R05 ; COPD with exacerbation J44.1 and Pneumonia of right lower lobe due to infectious organism J18.1 [place] [address] [place] [id number] [place] [address] 78027- 7722 08 Mar, 2017 Hyperlipidemia, unspecified hyperlipidemia type E78.5 [place] [address] 6[address]- 0000 Mar, Hypothyroidism E03.9 and Hyperlipidemia, unspecified hyperlipidemia type E78.5 [place] [address] [id number] [place] [address] 06476- 8611 Feb, Type II diabetes mellitus E11.9 ; Hypothyroidism E03.9 ; 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 ; Obesity due to excess calories E66.09 ; Allergic rhinitis J30.9 ; Microcytic anemia D50.9 ; Gastroesophageal reflux disease without esophagitis K21.9 ; Essential hypertension I10 ; Hyperlipidemia, unspecified hyperlipidemia type E78.5 ; Recurrent major depressive disorder, in full remission F33.42 and Urinary incontinence R32 [place] [address] [address]36- 7500 Jan, [place] [address] 27095- 0102 Jan, [place] [address] 41582- 1008 November, [place] [address] [id number] [place] [address] 18633- 9922 Sep, Type II diabetes mellitus E11.9 ; [...] and Tinea pedis of both feet B35.3 [place] [address] [id number] [place] [address] 00712- 7695 Jun, [facility] [address] [place] [place] [id number] [place] [address] 97215 -3573 Jun, Acute upper respiratory infection, unspecified J06.9 and Other viral agents as the cause of diseases classified elsewhere B97.[address] [address]- 5226 May, [place] [id number] [place] [address] 01511- 1122 May, Type 2 diabetes mellitus with hyperglycemia [...] thrush B37.0 and Encounter for immunization Z23 [place] [address] [place] [id number] [place] [address] 74837- 5187 Apr, [place] [address] [place] [id number] [place] [address] 91174- 5072 Apr, [place] [address] [id number] [place] [address] 68182- 8814 Mar, [place] [address] [id number] [place] [address] 43393- 5111 Dec, [place] [address] [place] [id number] [place] [address] 64993- 5286 Dec, [place] [address] [id number] [place] [address] 95724- 9048 Dec, Encounter for well woman exam with routine gynecological exam Z01.419 ; Encounter for screening for malignant neoplasm of cervix Z12.4 ; Screening mammogram, encounter for Z12.31 ; Encounter for screening breast examination Z12.39 ; On home oxygen therapy Z99.81 ; 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 ; Heat rash L74.0 ; Type II diabetes mellitus E11.9 and Hypothyroidism E03.9 [place] [address] [address] 65[address] November, [place] [address] [place] [id number] [place] [address] 06220- 2408 November, Type II diabetes mellitus E11.9 ; Allergic rhinitis J30.9 ; Hypothyroidism E03.9 ; Obesity due to excess calories E66.09 ; Urinary incontinence R32 ; Gastroesophageal reflux disease without esophagitis K21.9 and Essential hypertension I10 [facility] [address] [place] [id number] [place] [address] 19682- 0953 Oct, [facility] [address] 24043- 5747 Sep, [facility] [address] 91034- 8268 Sep, [facility] [address] [address]46 -2029 Aug, Acute maxillary sinusitis J01.00 [place] [address] 36961- 8626 Aug, [facility] [address] 32233- 5116 Aug, [facility] [address] 49821- 3251 Aug, Type II diabetes mellitus E11.9 [place] [address] 82665- 2208 05 Aug, 2015 Type II diabetes mellitus E11.9 ; Hypothyroidism E03.9 ; 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 ; Obesity due to excess calories E66.09 ; Urinary incontinence R32 ; Anemia D64.9 ; Microcytic anemia D50.9 and Allergic rhinitis J30.9 [place] [address] [place] [id number] [place] [address] 53766- 2123 May, Upper respiratory symptom R09.89 [place] [address] 74778- 5793 09 May, 2015 Oral thrush B37.0 [place] [address] 45797- 9213 Apr, Hypothyroidism E03.9 and Microcytic anemia D50.9 [facility] [address] [place] [place] [id number] [place] [address] 50478- 2522 Apr, Encounter for long-term current use of medication Z79.899 ; Hypothyroidism E03.9 ; Microcytic anemia D50.9 ; Type 2 diabetes mellitus without complication E11.9 ; Essential hypertension I10 and Mixed incontinence N39.46 [facility] [address] 45636- 0210 Apr, [facility] [address] [place] [id number] [place] [address] 62323- 3916 Mar, [facility] [address] [place] [id number] [place] [address] 19326- 3845 Mar, [place] [address] [place] [id number] [place] [address] 25955- 2246 Mar, [facility] [address] [place] [id number] [place] [address] 62964- 5719 Mar, [facility] [address] [place] [id number] [place] [address] 21939- 7216 Mar, [facility] [address] [place] [id number] [place] [address] 77707- 5268 Mar, [place] [address] [id number] [place] [address] 75339- 4833 Mar, [facility] [address] [place] [id number] [place] [address] 80490- 5367 Feb, Cough 786.2 ; Wheezing 786.07 ; Hypothyroidism 244.9 and Encounter for long-term current use of medication V58.69 [place] [address] [place] [id number] [place] [address] 78955- 9724 Feb, Diabetes type 2, uncontrolled 250.02 ; Depression 311 ; Encounter for long-term current use of medication V58.69 and Hypothyroidism 244.9 [place] [address] [id number] [place] [address] 35011- 7069 Feb, [facility] [place] [facility] [address] [id number] [place] [address]- 7042 Jan, [facility] [place] [facility] [address] [id number] [place] [address]- 6898 Oct, [facility] [place] [facility] [address] [id number] [place] [address]- 6580 Oct, [facility] [place] [facility] [address] [id number] [place] [address]- 8423 Oct, [facility] [place] [facility] [address] [id number] [place] [address]- 2501 Sep, [facility] [place] [facility] [address] [id number] [place] [address]- 6997 Sep, [facility] [place] [facility] [address] [id number] [place] [address]- 8893 Sep, [facility] [place] [facility] [address] [id number] [place] [address]- 6041 Aug, [facility] [place] [facility] [address] [id number] [place] [address]- 8926 Aug, [facility] [place] [facility] [address] [id number] [place] [address]- 7279 Jul, [facility] [place] [facility] [address] [id number] [place] [address]- 9198 Jul, [facility] [place] [facility] [address] [id number], [place] [address]- 8166 Jul, [facility] [place] [facility] [address] [id number] [place] [address]- 6366 Jul, [facility] [place] [facility] [address] [id number] [place] [address]- 9180 Jul, [facility] [place] [facility] [address] [id number] [place] [address]- 7659 Jul, [facility] [place] [facility] [address] [id number] [place] [address]- 4668 Jul, [facility] [place] [facility] [address] [id number] [place] [address]- 0424 Jul, [facility] [place] [facility] [address] [id number] [place] [address]- 0164 Jun, [facility] [place] [facility] [address] [id number] [place] [address]- 5184 Jun, [facility] [place] [facility] [address] [id number] [place] [address]- 6596 May, [facility] [place] [facility] [address] [id number] [place] [address]28 May, [facility] [place] [facility] [address] [id number] [place] [address]- 9631 May, [facility] [place] [facility] [address] [id number] [place] [address]- 1348 Apr, [facility] [place] [facility] [address] [id number] [place] [address]- 8165 Apr, [facility] [place] [facility] [address] [id number] [place] [address]- 7698 Apr, [facility] [place] [facility] [address] [id number] [place] [address]- 5501 Apr, [facility] [place] [facility] [address] [id number] [place] [address]- 2918 Apr, [facility] [place] [facility] [address] [id number] [place] [address]- 4712 Apr, [facility] [place] [facility] [address] [id number] [place] 7792 22 Mar, 2014 [facility] [place] [facility] [address] [id number] [place] [address]- 0547 22 Mar, 2014 [facility] [place] [facility] [address] [id number] [place] 3409 Mar, [facility] [place] [facility] [address] [id number] [place] [address]- 4269 Mar, [facility] [place] [facility] [address] [id number] [place] [address]- 6356 Sep, [facility] [place] [facility] [address] [id number] [place] [address]- 5538 Sep, [facility] [place] [facility] [address] [id number] [place] [address]- 4833 Sep, [facility] [place] [facility] [address] [id number] [place] [address]- 5424 Sep, [facility] [place] [facility] [address] [id number] [place] [address]- 0567 Aug, [facility] [place] [facility] [address] [id number] [place] [address]- 8045 Aug, [facility] [place] [facility] [address] [id number] [place] [address]- 6617 Aug, [facility] [place] [facility] [address] [id number] [place] [address]- 7781 Aug, [facility] [place] [facility] [address] [id number] [place] [address]- 2122 Aug, [facility] [place] [facility] [address] [id number] [place] [address]- 1757 Aug, [facility] [place] [facility] [address] [id number] [place] [address]- 8682 Jul, [facility] [place] [facility] [address] [id number] [place] [address]- 3737 Jul, [facility] [place] [facility] [address] [id number] [place] [address]- 9992 Jul, [facility] [place] [facility] [address] [id number] [place] [address]- 9251 Jul, [facility] [place] [facility] [address] [id number] [place] [address]- 2237 Jun, [facility] [place] [facility] [address] [id number] [place] [address]- 5908 Jun, [facility] [place] [facility] [address] [id number] [place] [address]- 0701 May, [facility] [place] [facility] [address] [id number] [place] [address] 2545 May, [facility] [place] [facility] [address] [id number] [place] [address]- 2579 Apr, [facility] [place] [facility] [address] [id number] [place] [address]- 4428 Apr, [facility] [place] [facility] [address] [id number] [place] [address]- 8532 Apr, [facility] [place] [facility] [address] [id number] [place] [address]- 6778 Mar, [facility] [place] [facility] [address] [id number] [place] [address]- 0806 Mar, [facility] [place] [facility] [address] [id number] [place] [address]- 1941 Mar, [facility] [place] [facility] [address] [id number] [place] [address]- 2730 Mar, [facility] [place] [facility] [address] [id number] [place] [address]- 7007 Feb, [facility] [place] [facility] [address] [id number] [place] [address]- 2541 Jan, [facility] [place] [facility] [address] [id number] [place] [address]- 4804 Jan, [facility] [place] [facility] [address] [id number] [place] [address]- 2542 Jan, [facility] [place] [facility] [address] [id number] [place] [address]- 2541 Jan, [facility] [place] [facility] [address] [id number] [place] [address]- 9656 Dec, [facility] [place] [facility] [address] [id number] [place] [address]- 4017 Dec, [facility] [place] [facility] [address] [id number] [place] [address]- 7279 Dec, [facility] [place] [facility] [address] [id number] [place] [address]- 1283 Dec, [facility] [place] [facility] [address] [id number] [place] [address]- 8393 Dec, [facility] [place] [facility] [address] [id number] [place] [address]- 9528 Dec, [facility] [place] [facility] [address] [id number] [place] [address]- 0435 November, [facility] [address] [id number] [place] [address]- 6822 November, [facility] [place] [facility] [address] [id number] [place] [address]- 2026 November, [facility] [place] [facility] [address] [id number] [place] [address]- 4507 Oct, [facility] [place] [facility] [address] [id number] [place] [address]- 3308 Oct, [facility] [place] [facility] [address] [id number] [place] [address]- 0077 Sep, [facility] [place] [facility] [address] [id number] [place] [address]- 8335 Sep, [facility] [place] [facility] [address] [id number] [place] [address]- 7850 Sep, [facility] [place] [facility] [address] [id number] [place] [address]- 7390 Sep, [facility] [place] [facility] [address] [id number] [place] [address]- 6039 Sep, [facility] [address] [id number] [place] [address]- 2064 Aug, [facility] [address] [id number] [place] [address]- 7286 Aug, [facility] [address] [facility] [id number] [place] [address]- 6196 Aug, [facility] [address] [id number] [place] [address]- 1602 07 Aug, 2012 [facility] [address] [id number] [place] [address]- 4692 Aug, [facility] [address] [facility] [id number] [place] [address]- 9994 Jul, [facility] [address] [facility] [id number] [place] [address]- 5208 Jul, [facility] [address] [facility] [id number] [place] [address]- 9963 Jun, [facility] [address] [facility] [id number] [place] [address]- 4815 Jun, [facility] [address] [facility] [id number] [place] [address]- 4781 18 Jun, 2012 [facility] [address] [facility] [id number] [place] [address]- 4784 18 Jun, 2012 [facility] [place] [facility] [address] [id number] [place] [address]- 2546 10 Jun, 2012 [facility] [place] [facility] [address] [id number] [place] [address]- 5832 10 Jun, 2012 [facility] [place] [facility] [address] [facility] [id number] [place] [address]- 6403 07 Jun, 2012 [facility] [place] [facility] [address] [facility] [id number] [place] [address]- 6724 06 Jun, 2012 [facility] [place] [facility] [address] [id number] [place] [address]- 3369 Jun, [facility] [place] [facility] [address] [id number] [place] [address]- 5911 May, [facility] [place] [facility] [address] [id number] [place] [address]- 2536 May, [facility] [place] [facility] [address] [id number] [place] [address]- 5366 May, [facility] [place] [facility] [address] [id number] [place] [address]- 6265 May, [facility] [place] [facility] [address] [id number] [place] [address]- 0372 May, [facility] [place] [facility] [address] [id number] [place] [address]- 7803 May, [facility] [place] [facility] [address] [id number] [place] [address]- 0187 May, [facility] [place] [facility] [address] [id number] [place] [address]- 2302 Apr, [facility] [place] [facility] [address] [id number] [place] [address]- 2311 Mar, [facility] [place] [facility] [address] [id number] [place] [address]- 9356 Mar, [facility] [place] [facility] [address] [id number] [place] [address]- 1725 Feb, [facility] [place] [facility] [address] [id number] [place] [address]- 1852 Feb, [facility] [place] [facility] [address] [id number] [place] [address]- 2236 Feb, [facility] [place] [facility] [address] [id number] [place] [address]- 6756 Feb, [facility] [place] [facility] [address] [id number] [place] [address]- 6082 Jan, [facility] [place] [facility] [address] [id number] [place] [address]- 3632 Jan, [facility] [place] [facility] [address] [id number] [place] [address]- 8703 Jan, [facility] [place] [facility] [address] [id number] [place] [address]- 4266 06 Jan, 2012 [facility] [place] [facility] [address] [id number] [place] [address]- 4151 Dec, [facility] [place] [facility] [address] [id number] [place] [address]- 0788 Dec, [facility] [place] [facility] [address] [id number] [place] [address]- 4368 Dec, [facility] [place] [facility] [address] [id number] [place] [address]- 1085 Dec, [facility] [place] [facility] [address] [id number] [place] [address]- 9136 Dec, [facility] [place] [facility] [address] [id number] [place] [address]- 3183 Sep, [facility] [place] [facility] [address] [id number] [place] [address]- 4600 Aug, [facility] [place] [facility] [address] [id number] [place] [address]- 7073 Jul, [facility] [place] [facility] [address] [id number] [place] [address]- 9373 Jun, [facility] [place] [facility] [address] [id number] [place] [address] Jun, [facility] [place] [facility] [address] [id number] [place] [address] Jun, [facility] [place] [facility] [address] [id number] [place] [address] Jun, 2011 [facility] [place] [facility] [address] [facility] [id number] [place] [address] May, [facility] [address] [facility] [id number], [place] [address] May, [facility] [address] [facility] [id number], [place] [address] Apr, [facility] [address] [facility] [id number] [address] Jun, [facility] [address] [facility] [id number], [place] [address] Apr, IMMUNIZATIONS No Known Immunizations SOCIAL HISTORY Never Assessed REASON FOR VISIT medication PLAN OF CARE VITAL SIGNS MEDICATIONS Unknown [...]
--- OUTSIDE RECORDS SUMMARY | 2018-10-30 20:36 | XMS REPORT ---
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 701579355 Problem Recurrent major depressive disorder, in full remission F33.42 Active 322412885 Problem Hyperlipidemia, unspecified hyperlipidemia type E78.5 Active 91568451 Problem Type 2 diabetes mellitus with other specified complication E11.69 Active 94726672 Problem Tobacco abuse counseling Z71.6 Active 114387300 Problem Microcytic anemia D50.9 Active 462899922 Problem 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 00317724 Problem Allergic rhinitis J30.9 Active 89858914 Problem Urinary incontinence R32 Active 027555635 Problem Hypothyroidism E03.9 Active 67215063 Problem Obesity due to excess calories E66.09 Active 936240868 ALLERGIES No Information ENCOUNTERS Encounter Location Date Diagnosis [facility] [address] [facility] [id number] [address] November, Pneumonia of right lower lobe due to infectious organism J18.1 ; 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 ; Type [...] without esophagitis K21.9 and Allergic rhinitis J30.9 [facility] [id number] [place] [address] 38609- 4564 November, [facility] [id number] [place] [address] 86566- 1292 Sep, [facility] [id number] [place] [address] 18760- 3907 Sep, [facility] [address] [address]704- 2547 Sep, [place] [address] 45495- 2969 Sep, [facility] [address] [address] Jul, Encounter for immunization Z23 [facility] [address] [address]348 Jun, Subacute maxillary sinusitis J01.00 [place] [id number] [place] [address] 74852- 3402 May, [place] [address] 42721- 7345 May, [place] [id number] [place] [address] 12913- 2053 May, Type II diabetes mellitus E11.9 ; Hypothyroidism E03.9 ; 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 ; Cough R05 ; COPD with exacerbation J44.1 and Pneumonia of right lower lobe due to infectious organism J18.1 [place] [address] 49355- 2567 Mar, Hyperlipidemia, unspecified hyperlipidemia type E78.5 [place] [id number] [place] [address] 38606- 5517 07 Mar, 2017 Hypothyroidism E03.9 and Hyperlipidemia, unspecified hyperlipidemia type E78.5 [place] [id number] [place] [address] 41632- 8288 Feb, Type II diabetes mellitus E11.9 ; Hypothyroidism E03.9 ; 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 ; Obesity due to excess calories E66.09 ; Allergic rhinitis J30.9 ; Microcytic anemia D50.9 ; Gastroesophageal reflux disease without esophagitis K21.9 ; Essential hypertension I10 ; Hyperlipidemia, unspecified hyperlipidemia type E78.5 ; Recurrent major depressive disorder, in full remission F33.42 and Urinary incontinence R32 [place] [id number] [place] [address] 14923- 4158 Jan, [place] [address] 91064- 8054 Jan, [place] [id number] [place] [address] 85989- 6074 November, [place] [address] 03376- 4658 Sep, Type II diabetes mellitus E11.9 ; [...] and Tinea pedis of both feet B35.3 [place] [id number] [place] [address] 27466- 3341 Jun, [facility] [id number] [place] [address] 47329 -7862 Jun, Acute upper respiratory infection, unspecified J06.9 and Other viral agents as the cause of diseases classified elsewhere B97.89 [place] [id number] [place] [address] 64524- 6078 May, [place] [id number] [place] [address] 82383- 4858 May, Type 2 diabetes mellitus with hyperglycemia [...] thrush B37.0 and Encounter for immunization Z23 [place] [id number] [place] [address] 28340- 4566 Apr, [place] [id number] [place] [address] 30951- 1692 Apr, [place] [id number] [place] [address] 63696- 5153 Mar, [place] [id number] [place] [address] 83431- 2814 Dec, [place] [id number] [place] [address] 18678- 1050 Dec, [place] [id number] [place] [address] 32875- 2222 Dec, Encounter for well woman exam with routine gynecological exam Z01.419 ; Encounter for screening for malignant neoplasm of cervix Z12.4 ; Screening mammogram, encounter for Z12.31 ; Encounter for screening breast examination Z12.39 ; On home oxygen therapy Z99.81 ; 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 ; Heat rash L74.0 ; Type II diabetes mellitus E11.9 and Hypothyroidism E03.9 [place] [id number] [place] [address] 94231- 6327 November, [place] [id number] [place] [address] 41140- 5928 November, Type II diabetes mellitus E11.9 ; Allergic rhinitis J30.9 ; Hypothyroidism E03.9 ; Obesity due to excess calories E66.09 ; Urinary incontinence R32 ; Gastroesophageal reflux disease without esophagitis K21.9 and Essential hypertension I10 [facility] [id number] [place] [address] 37660- 5246 Oct, [facility] [id number] [place] [address] 68257- 8625 Sep, [facility] [id number] [place] [address] 63021- 5754 Sep, [facility] [id number] [place] [address] 97330 -3060 Aug, Acute maxillary sinusitis J01.00 [place] [address] 00245- 9494 Aug, [facility] [address] 09747- 2490 Aug, [facility] [id number] [place] [address] 34374- 4920 16 Aug, 2015 Type II diabetes mellitus E11.9 [place] [id number] [place] [address] 31994- 9393 05 Aug, 2015 Type II diabetes mellitus E11.9 ; Hypothyroidism E03.9 ; 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 ; Obesity due to excess calories E66.09 ; Urinary incontinence R32 ; Anemia D64.9 ; Microcytic anemia D50.9 and Allergic rhinitis J30.9 [place] [id number] [place] [address] 82652- 4414 May, Upper respiratory symptom R09.89 [place] [id number] [place] [address] 65133- 9783 May, Oral thrush B37.0 [place] [id number] [place] [address] 00788- 2833 Apr, Hypothyroidism E03.9 and Microcytic anemia D50.9 [place] [address] 36511- 3592 Apr, Encounter for long-term current use of medication Z79.899 ; Hypothyroidism E03.9 ; Microcytic anemia D50.9 ; Type 2 diabetes mellitus without complication E11.9 ; Essential hypertension I10 and Mixed incontinence N39.46 [facility] [address] [address]- 3203 Apr, [facility] [id number] [place] [address] 92843- 9877 Mar, [facility] [id number] [place] [address] 69971- 8619 Mar, [facility] [id number] [place] [address] 27072- 6744 Mar, [facility] [id number] [place] [address] 59008- 9334 Mar, [facility] [id number] [place] [address] 60996- 3899 Mar, [facility] [id number] [place] [address] 09649- 8930 Mar, [facility] [id number] [place] [address] 77745- 7075 Mar, [facility] [address] [address]- 0324 Feb, Cough 786.2 ; Wheezing 786.07 ; Hypothyroidism 244.9 and Encounter for long-term current use of medication V58.69 [facility] [address] [place] [address] 55482- 8376 Feb, Diabetes type 2, uncontrolled 250.02 ; Depression 311 ; Encounter for long-term current use of medication V58.69 and Hypothyroidism 244.9 [facility] [address] [address]- 6866 Feb, [facility] [id number] [place] [address] 30695- 6297 Jan, [facility] [place] [facility] [address] [id number] [place] [address]- 7072 28 Oct, 2014 [facility] [place] [facility] [address] [id number] [place] [address]- 8372 14 Oct, 2014 [facility] [place] [facility] [address] [id number] [place] [address]- 5547 Oct, [facility] [place] [facility] [address] [id number] [place] [address]- 4767 Sep, [facility] [place] [facility] [address] [id number] [place] [address]- 2781 Sep, [facility] [place] [facility] [address] [id number] [place] [address]- 0115 Sep, [facility] [place] [facility] [address] [id number] [place] [address]- 2072 Aug, [facility] [place] [facility] [address] [id number] [place] [address]- 9447 Aug, [facility] [place] [facility] [address] [id number] [place] [address]- 1089 Jul, [facility] [place] [facility] [address] [id number] [place] [address]- 7776 Jul, [facility] [place] [facility] [address] [id number], [place] [address]- 0932 Jul, [facility] [place] [facility] [address] [id number], [place] [address]- 4565 Jul, [facility] [place] [facility] [address] [id number] [place] [address]- 8952 Jul, [facility] [place] [facility] [address] [id number] [place] [address]- 3465 Jul, [facility] [place] [facility] [address] [id number] [place] [address]- 0509 Jul, [facility] [place] [facility] [address] [id number] [place] [address]- 8512 Jul, [facility] [place] [facility] [address] [id number] [place] [address]- 4705 Jun, [facility] [place] [facility] [address] [id number] [place] [address]- 8644 Jun, [facility] [place] [facility] [address] [id number] [place] [address]- 0721 May, [facility] [place] [facility] [address] [id number] [place] [address]- 2343 May, [facility] [place] [facility] [address] [id number] [place] [address]- 1232 May, [facility] [place] [facility] [address] [id number] [place] [address]- 9317 Apr, [facility] [place] [facility] [address] [id number] [place] [address]- 7600 Apr, [facility] [place] [facility] [address] [id number] [place] [address]- 7006 Apr, [facility] [place] [facility] [address] [id number] [place] [address]- 8830 Apr, [facility] [place] [facility] [address] [facility] [id number] [place] [address]- 4331 Apr, [facility] [place] [facility] [address] [id number] [place] [address]- 5830 Apr, [facility] [place] [facility] [address] [id number] [place] [address]- 4801 Mar, [facility] [place] [facility] [address] [id number] [place] [address]- 0388 22 Mar, 2014 [facility] [place] [facility] [address] [id number] [place] [address]- 4747 19 Mar, 2014 [facility] [place] [facility] [address] [id number] [place] [address]- 6378 Mar, [facility] [place] [facility] [address] [id number] [place] [address]- 9020 Sep, [facility] [place] [facility] [address] [id number] [place] [address]- 1674 Sep, [facility] [place] [facility] [address] [id number] [place] [address]- 0581 Sep, [facility] [place] [facility] [address] [id number] [place] [address]- 6779 Sep, [facility] [place] [facility] [address] [id number] [place] [address]- 1298 Aug, [facility] [place] [facility] [address] [id number] [place] [address]- 4153 Aug, [facility] [place] [facility] [address] [id number] [place] [address]- 6978 Aug, [facility] [place] [facility] [address] [id number] [place] [address]- 6836 Aug, [facility] [place] [facility] [address] [id number] [place] [address]- 8360 Aug, [facility] [place] [facility] [address] [id number] [place] [address]- 2816 Aug, [facility] [place] [facility] [address] [id number] [place] [address]- 7325 Jul, [facility] [place] [facility] [address] [id number] [place] [address]- 3439 Jul, [facility] [place] [facility] [address] [id number] [place] [address]- 0654 Jul, [facility] [place] [facility] [address] [id number] [place] [address]- 1687 Jul, [facility] [place] [facility] [address] [id number] [place] [address]- 2780 Jun, [facility] [place] [facility] [address] [id number] [place] [address]- 3199 Jun, [facility] [address] [id number] [place] [address]- 8219 May, [facility] [place] [facility] [address] [id number] [place] [address]- 4174 May, [facility] [place] [facility] [address] [id number] [place] [address]- 9061 Apr, [facility] [place] [facility] [address] [id number] [place] [address]- 9235 Apr, [facility] [place] [facility] [address] [id number] [place] [address]- 4354 Apr, [facility] [place] [facility] [address] [id number] [place] [address]- 2313 Mar, [facility] [place] [facility] [address] [id number] [place] [address]- 4593 Mar, [facility] [place] [facility] [address] [id number] [place] [address]- 5316 04 Mar, 2013 [facility] [place] [facility] [address] [id number] [place] [address]- 7097 Mar, [facility] [place] [facility] [address] [id number] [place] [address]- 1573 Feb, [facility] [place] [facility] [address] [id number] [place] [address]- 0070 Jan, [facility] [place] [facility] [address] [id number] [place] [address]- 4408 Jan, [facility] [place] [facility] [address] [id number] [place] [address]- 0894 Jan, [facility] [place] [facility] [address] [id number] [place] [address]- 2791 Jan, [facility] [place] [facility] [address] [id number] [place] [address]- 4694 Dec, [facility] [place] [facility] [address] [id number] [place] [address]- 6852 Dec, [facility] [address] [id number] [place] [address]- 8500 Dec, [facility] [place] [facility] [address] [id number] [place] [address]- 3927 Dec, [facility] [place] [facility] [address] [id number] [place] [address]- 5860 Dec, [facility] [address] [id number] [place] [address]- 8619 Dec, [facility] [place] [facility] [address] [id number] [place] [address]- 1373 November, [facility] [address] [id number] [place] [address]- 1639 November, [facility] [address] [id number] [place] [address]- 3863 November, [facility] [address] [id number] [place] [address]- 8851 Oct, [facility] [place] [facility] [address] [id number] [place] [address]- 6369 Oct, [facility] [place] [facility] [address] [id number] [place] [address]- 0328 Sep, [facility] [place] [facility] [address] [id number] [place] [address]- 5733 Sep, [facility] [place] [facility] [address] [id number] [place] [address]- 3322 Sep, [facility] [place] [facility] [address] [id number] [place] [address]- 2509 Sep, [facility] [place] [facility] [address] [id number] [place] [address]- 4623 Sep, [facility] [place] [facility] [address] [id number] [place] [address]- 9472 Aug, [facility] [address] [id number] [place] [address]- 9955 12 Aug, 2012 [facility] [address] [id number] [place] 6306 11 Aug, 2012 [facility] [address] [id number] [place] [address]- 4376 07 Aug, 2012 [facility] [address] [id number] [place] [address]- 4271 04 Aug, 2012 [facility] [address] [id number] [place] [address]- 0504 Jul, [facility] [address] [id number] [place] [address]- 0028 Jul, [facility] [address] [facility] [id number] [place] [address]- 5384 Jun, [facility] [address] [id number] [place] [address]- 9484 Jun, [facility] [address] [facility] [id number] [place] [address]- 7075 18 Jun, 2012 [facility] [address] [facility] [id number] [place] [address]- 0765 18 Jun, 2012 [facility] [address] [facility] [id number] [place] [address]- 2097 Jun, [facility] [place] [facility] [address] [id number] [place] [address]- 0213 10 Jun, 2012 [facility] [place] [facility] [address] [id number] [place] [address]- 3910 07 Jun, 2012 [facility] [place] [facility] [address] [facility] [id number] [place] [address]- 5066 06 Jun, 2012 [facility] [address] [facility] [id number] [place] [address]- 7315 06 Jun, 2012 [facility] [place] [facility] [address] [id number] [place] [address]- 7959 May, [facility] [place] [facility] [address] [id number] [place] [address]- 5247 May, [facility] [place] [facility] [address] [id number] [place] [address]- 5169 May, [facility] [place] [facility] [address] [id number] [place] [address]- 9670 May, [facility] [place] [facility] [address] [id number] [place] [address]- 6500 May, [facility] [place] [facility] [address] [id number] [place] [address]- 5869 May, [facility] [place] [facility] [address] [id number] [place] [address]- 9208 May, [facility] [place] [facility] [address] [id number] [place] [address]- 9922 Apr, [facility] [place] [facility] [address] [id number] [place] [address]- 6068 Mar, [facility] [place] [facility] [address] [id number] [place] [address]- 2246 Mar, [facility] [place] [facility] [address] [id number] [place] [address]- 0216 Feb, [facility] [place] [facility] [address] [id number] [place] [address]- 9864 Feb, [facility] [place] [facility] [address] [id number] [place] [address]- 2395 Feb, [facility] [place] [facility] [address] [id number] [place] [address]- 3691 Feb, [facility] [place] [facility] [address] [id number] [place] [address]- 8117 Jan, [facility] [place] [facility] [address] [id number] [place] [address] Jan, [facility] [place] [facility] [address] [id number] [place] [address] Jan, [facility] [place] [facility] [address] [id number] [place] [address] Jan, [facility] [place] [facility] [address] [id number] [place] [address] Dec, [facility] [place] [facility] [address] [id number] [place] [address] Dec, [facility] [place] [facility] [address] [id number] [place] [address] Dec, [facility] [place] [facility] [address] [id number] [place] [address] Dec, [facility] [place] [facility] [address] [id number] [place] [address] Dec, [facility] [place] [facility] [address] [id number] [place] [address] Sep, [facility] [place] [facility] [address] [id number] [place] [address] Aug, [facility] [place] [facility] [address] [id number] [place] [address] Jul, [facility] [place] [facility] [address] [id number] [place] [address] 16 Jun, 2011 [facility] [place] [facility] [address] [id number] [place] [address] Jun, [facility] [place] [facility] [address] [id number] [place] [address] Jun, [facility] [place] [facility] [address] [id number] [place] [address] 05 Jun, 2011 [facility] [place] [facility] [address] [id number] [place] [address] May, [facility] [place] [facility] [address] [facility] [id number] [place] [address] May, [facility] [address] [facility] [id number], [place] [address] Apr, [facility] [address] [facility] [id number], [place] [address] Jun, [facility] [address] [facility] [id number], [place] [address] Apr, IMMUNIZATIONS No Known Immunizations SOCIAL HISTORY Never Assessed REASON FOR VISIT Medication refill PLAN OF CARE VITAL SIGNS MEDICATIONS Medication Instructions Dosage Frequency Start Date End Date Duration Status Levothyroxine Sodium 175 MCG Orally as directed TAKE ONE TABLET BY MOUTH IN THE MORNING ON AN EMPTY STOMACH WITH A FULL GLASS OF WATER 90 days Active RESULTS No Results PROCEDURES No Known [...]
--- OUTSIDE RECORDS SUMMARY | 2018-10-30 20:37 | XMS REPORT ---
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 Z79.4 Active 213783239 Problem Recurrent major depressive disorder, in full remission F33.42 Active 353720838 Problem Hyperlipidemia, unspecified hyperlipidemia type E78.5 Active 21621551 Problem Type 2 diabetes mellitus with other specified complication E11.69 Active 46128213 Problem Tobacco abuse counseling Z71.6 Active 667082397 Problem Microcytic anemia D50.9 Active 830076481 Problem 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 09757041 Problem Allergic rhinitis J30.9 Active 20787756 Problem Urinary incontinence R32 Active 523263247 Problem Hypothyroidism E03.9 Active 90751593 Problem Obesity due to excess calories E66.09 Active 980369305 ALLERGIES No Information ENCOUNTERS Encounter Location Date Diagnosis [facility] [address] [facility] [id number], [place] [address] November, Pneumonia of right lower lobe due [...] without esophagitis K21.9 and Allergic rhinitis J30.9 [facility] [id number] [place] [address] 71928- 4049 November, [facility] [id number] [place] [address] 01615- 1161 Sep, [facility] [id number] [place] [address] 05679- 0181 Sep, [facility] [address] [address]- [address] Sep, [place] [address] [address]- [address] Sep, [facility] [address] [address] Jul, Encounter for immunization Z23 [facility] [address] [address] Jun, Subacute maxillary sinusitis J01.00 [place] [id number] [place] [address] 37075- 1572 May, [place] [address] [address]- [address] May, [place] [id number] [place] [address] 12134- 7629 May, Type II diabetes mellitus E11.9 ; Hypothyroidism E03.9 ; 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 ; Cough R05 ; COPD with exacerbation J44.1 and Pneumonia of right lower lobe due to infectious organism J18.1 [place] [address] [address]- 5302 Mar, Hyperlipidemia, unspecified hyperlipidemia type E78.5 [place] [id number] [place] [address] 41727- 8433 07 Mar, 2017 Hypothyroidism E03.9 and Hyperlipidemia, unspecified hyperlipidemia type E78.5 [place] [id number] [place] [address] 94742- 4272 Feb, Type II diabetes mellitus E11.9 ; [...] F33.42 and Urinary incontinence R32 [place] [id number] [place] [address] 17270- 1005 Jan, [place] [address] [address]227- 5861 Jan, [place] [id number] [place] [address] 03993- 6941 November, [place] [address] 04709- 9240 Sep, Type II diabetes mellitus E11.9 ; [...] pedis of both feet B35.3 [place] [id number] [place] [address] 31710- 0129 Jun, [facility] [id number] [place] [address] 18721 -4668 Jun, Acute upper respiratory infection, unspecified J06.9 and Other viral agents as the cause of diseases classified elsewhere B97.89 [place] [id number] [place] [address] 86181- 6298 May, [place] [id number] [place] [address] 51594- 7033 May, Type 2 diabetes mellitus with hyperglycemia [...] and Encounter for immunization Z23 [place] [id number] [place] [address] 30740- 6388 Apr, [place] [id number] [place] [address] 33029- 8967 Apr, [place] [id number] [place] [address] 29311- 5873 Mar, [place] [id number] [place] [address] 25935- 6513 Dec, [place] [id number] [place] [address] 45035- 9724 Dec, [place] [id number] [place] [address] 08829- 1423 Dec, Encounter for well woman exam with [...] mellitus E11.9 and Hypothyroidism E03.9 [place] [id number] [place] [address] 25677- 6554 November, [place] [id number] [place] [address] 32658- 6365 November, Type II diabetes mellitus E11.9 ; Allergic rhinitis J30.9 ; Hypothyroidism E03.9 ; Obesity due to excess calories E66.09 ; Urinary incontinence R32 ; Gastroesophageal reflux disease without esophagitis K21.9 and Essential hypertension I10 [facility] [id number] [place] [address] 20479- 6113 Oct, [facility] [id number] [place] [address] 29684- 0410 Sep, [facility] [id number] [place] [address] 86325- 2582 Sep, [facility] [id number] [place] [address] 06912 -8170 Aug, Acute maxillary sinusitis J01.00 [place] [address] 47352- 0989 Aug, [facility] [address] 43798- 6680 Aug, [facility] [id number] [place] [address] 43844- 7016 16 Aug, 2015 Type II diabetes mellitus E11.9 [place] [id number] [place] [address] 82337- 9037 05 Aug, 2015 Type II diabetes mellitus E11.9 ; Hypothyroidism E03.9 ; 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 ; Obesity due to excess calories E66.09 ; Urinary incontinence R32 ; Anemia D64.9 ; Microcytic anemia D50.9 and Allergic rhinitis J30.9 [place] [id number] [place] [address] 10768- 8549 May, Upper respiratory symptom R09.89 [place] [id number] [place] [address] 31742- 9732 May, Oral thrush B37.0 [place] [id number] [place] [address] 04935- 0212 Apr, Hypothyroidism E03.9 and Microcytic anemia D50.9 [place] [address] 36514- 3269 Apr, Encounter for long-term current use of medication Z79.899 ; Hypothyroidism E03.9 ; Microcytic anemia D50.9 ; Type 2 diabetes mellitus without complication E11.9 ; Essential hypertension I10 and Mixed incontinence N39.46 [facility] [address] [address]- 8045 Apr, [facility] [id number] [place] [address] 79668- 3080 Mar, [facility] [id number] [place] [address] 82515- 0889 Mar, [facility] [id number] [place] [address] 71205- 3441 Mar, [facility] [id number] [place] [address] 89007- 5016 Mar, [facility] [id number] [place] [address] 99241- 8524 Mar, [facility] [id number] [place] [address] 35571- 2535 Mar, [facility] [id number] [place] [address] 72289- 4136 Mar, [facility] [address], [place] [address]- 6044 Feb, Cough 786.2 ; Wheezing 786.07 ; Hypothyroidism 244.9 and Encounter for long-term current use of medication V58.69 [facility] [id number] [place] [address] 10981- 1528 Feb, Diabetes type 2, uncontrolled 250.02 ; Depression 311 ; Encounter for long-term current use of medication V58.69 and Hypothyroidism 244.9 [facility] [address], [place] [address]- 3152 Feb, [facility] [id number] [place] [address] 60679- 1439 Jan, [facility] [place] [facility] [address] [id number] [place] [address]- 5368 28 Oct, 2014 [facility] [place] [facility] [address] [id number] [place] [address]- 2799 14 Oct, 2014 [facility] [place] [facility] [address] [id number] [place] [address]- 6040 Oct, [facility] [place] [facility] [address] [id number] [place] [address]- 7347 Sep, [facility] [place] [facility] [address] [id number] [place] [address]- 8030 Sep, [facility] [place] [facility] [address] [id number] [place] [address]- 5391 Sep, [facility] [place] [facility] [address] [id number] [place] [address]- 5313 Aug, [facility] [place] [facility] [address] [id number] [place] [address]- 1031 Aug, [facility] [place] [facility] [address] [id number] [place] [address]- 3850 Jul, [facility] [place] [facility] [address] [id number] [place] [address]- 8048 Jul, [facility] [place] [facility] [address] [id number], [place] [address]- 1411 Jul, [facility] [place] [facility] [address] [id number], [place] [address]- 1460 Jul, [facility] [place] [facility] [address] [id number] [place] [address]- 3389 Jul, [facility] [place] [facility] [address] [id number] [place] [address]- 9321 Jul, [facility] [place] [facility] [address] [id number] [place] [address]- 3945 Jul, [facility] [place] [facility] [address] [id number] [place] [address]- 1054 Jul, [facility] [place] [facility] [address] [id number] [place] [address]- 5561 Jun, [facility] [place] [facility] [address] [id number] [place] [address]- 3647 Jun, [facility] [place] [facility] [address] [id number] [place] [address]- 4322 May, [facility] [place] [facility] [address] [id number] [place] [address]- 0024 May, [facility] [place] [facility] [address] [id number] [place] [address]- 9996 May, [facility] [place] [facility] [address] [id number] [place] [address]- 1947 Apr, [facility] [place] [facility] [address] [id number] [place] [address]- 7005 Apr, [facility] [place] [facility] [address] [id number] [place] [address]- 1679 Apr, [facility] [place] [facility] [address] [id number] [place] [address]- 8349 Apr, [facility] [place] [facility] [address] [facility] [id number] [place] [address]- 8406 Apr, [facility] [place] [facility] [address] [id number] [place] [address]- 1482 Apr, [facility] [place] [facility] [address] [id number] [place] [address]- 5749 Mar, [facility] [place] [facility] [address] [id number] [place] [address]- 0872 22 Mar, 2014 [facility] [place] [facility] [address] [id number] [place] [address]- 9350 19 Mar, 2014 [facility] [place] [facility] [address] [id number] [place] [address]- 0399 Mar, [facility] [place] [facility] [address] [id number] [place] [address]- 4095 Sep, [facility] [place] [facility] [address] [id number] [place] [address]- 0061 Sep, [facility] [place] [facility] [address] [id number] [place] [address]- 5355 Sep, [facility] [place] [facility] [address] [id number] [place] [address]- 0684 Sep, [facility] [place] [facility] [address] [id number] [place] [address]- 0131 Aug, [facility] [place] [facility] [address] [id number] [place] [address]- 3542 Aug, [facility] [place] [facility] [address] [id number] [place] [address]- 8876 Aug, [facility] [place] [facility] [address] [id number] [place] [address]- 9482 Aug, [facility] [place] [facility] [address] [id number] [place] [address]- 6458 Aug, [facility] [place] [facility] [address] [id number] [place] [address]- 7055 Aug, [facility] [place] [facility] [address] [id number] [place] [address]- 2305 Jul, [facility] [place] [facility] [address] [id number] [place] [address]- 2724 Jul, [facility] [place] [facility] [address] [id number] [place] [address]- 2271 Jul, [facility] [place] [facility] [address] [id number] [place] [address]- 8611 Jul, [facility] [place] [facility] [address] [id number] [place] [address]- 0566 Jun, [facility] [place] [facility] [address] [id number] [place] [address]- 5202 Jun, [facility] [address] [id number] [place] [address]- 4955 May, [facility] [place] [facility] [address] [id number] [place] [address]- 1129 May, [facility] [place] [facility] [address] [id number] [place] [address]- 5022 Apr, [facility] [place] [facility] [address] [id number] [place] [address]- 1976 Apr, [facility] [place] [facility] [address] [id number] [place] [address]- 9008 Apr, [facility] [place] [facility] [address] [id number] [place] [address]- 4105 Mar, [facility] [place] [facility] [address] [id number] [place] [address]- 4348 Mar, [facility] [place] [facility] [address] [id number] [place] [address]- 6780 04 Mar, 2013 [facility] [place] [facility] [address] [id number] [place] [address]- 3893 Mar, [facility] [place] [facility] [address] [id number] [place] [address]- 6253 Feb, [facility] [place] [facility] [address] [id number] [place] [address]- 6917 Jan, [facility] [place] [facility] [address] [id number] [place] [address]- 9333 Jan, [facility] [place] [facility] [address] [id number] [place] [address]- 9166 Jan, [facility] [place] [facility] [address] [id number] [place] [address]- 8093 Jan, [facility] [place] [facility] [address] [id number] [place] [address]- 0706 Dec, [facility] [place] [facility] [address] [id number] [place] [address]- 6079 Dec, [facility] [address] [id number] [place] [address]- 5267 Dec, [facility] [place] [facility] [address] [id number] [place] [address]- 3472 Dec, [facility] [place] [facility] [address] [id number] [place] [address]- 1395 Dec, [facility] [address] [id number] [place] [address]- 2201 Dec, [facility] [place] [facility] [address] [id number] [place] [address]- 6556 November, [facility] [address] [id number] [place] [address]- 0087 November, [facility] [address] [id number] [place] [address]- 4451 November, [facility] [address] [id number] [place] [address]- 2743 Oct, [facility] [place] [facility] [address] [id number] [place] [address]- 6510 Oct, [facility] [place] [facility] [address] [id number] [place] [address]- 6595 Sep, [facility] [place] [facility] [address] [id number] [place] [address]- 8259 Sep, [facility] [place] [facility] [address] [id number] [place] [address]- 5889 Sep, [facility] [place] [facility] [address] [id number] [place] [address]- 6878 Sep, [facility] [place] [facility] [address] [id number] [place] [address]- 5180 Sep, [facility] [place] [facility] [address] [id number] [place] [address]- 4970 Aug, [facility] [address] [id number] [place] [address]- 1122 12 Aug, 2012 [facility] [address] [id number] [place] 2036 11 Aug, 2012 [facility] [address] [id number] [place] [address]- 2716 07 Aug, 2012 [facility] [address] [id number] [place] [address]- 7636 04 Aug, 2012 [facility] [address] [id number] [place] [address]- 6259 Jul, [facility] [address] [id number] [place] [address]- 2225 Jul, [facility] [address] [facility] [id number] [place] [address]- 4639 Jun, [facility] [address] [id number] [place] [address]- 4683 Jun, [facility] [address] [facility] [id number] [place] [address]- 8155 18 Jun, 2012 [facility] [address] [facility] [id number] [place] [address]- 7900 18 Jun, 2012 [facility] [address] [facility] [id number] [place] [address]- 0399 Jun, [facility] [place] [facility] [address] [id number] [place] [address]- 6659 10 Jun, 2012 [facility] [place] [facility] [address] [id number] [place] [address]- 1427 07 Jun, 2012 [facility] [place] [facility] [address] [facility] [id number] [place] [address]- 3773 06 Jun, 2012 [facility] [address] [facility] [id number] [place] [address]- 8214 06 Jun, 2012 [facility] [place] [facility] [address] [id number] [place] [address]- 8049 May, [facility] [place] [facility] [address] [id number] [place] [address]- 5707 May, [facility] [place] [facility] [address] [id number] [place] [address]- 5518 May, [facility] [place] [facility] [address] [id number] [place] [address]- 8315 May, [facility] [place] [facility] [address] [id number] [place] [address]- 9058 May, [facility] [place] [facility] [address] [id number] [place] [address]- 9201 May, [facility] [place] [facility] [address] [id number] [place] [address]- 9865 May, [facility] [place] [facility] [address] [id number] [place] [address]- 1931 Apr, [facility] [place] [facility] [address] [id number] [place] [address]- 7542 Mar, [facility] [place] [facility] [address] [id number] [place] [address]- 2843 Mar, [facility] [place] [facility] [address] [id number] [place] [address]- 3018 Feb, [facility] [place] [facility] [address] [id number] [place] [address]- 1515 Feb, [facility] [place] [facility] [address] [id number] [place] [address]- 2952 Feb, [facility] [place] [facility] [address] [id number] [place] [address]- 8596 Feb, [facility] [place] [facility] [address] [id number] [place] [address]- 7876 Jan, [facility] [place] [facility] [address] [id number] [place] [address]- 2027 Jan, [facility] [place] [facility] [address] [id number] [place] [address]- 9048 Jan, [facility] [place] [facility] [address] [id number] [place] [address]- 4059 Jan, [facility] [place] [facility] [address] [id number] [place] [address]- 6116 Dec, [facility] [place] [facility] [address] [id number] [place] [address]- 0557 Dec, [facility] [place] [facility] [address] [id number] [place] [address]- 8067 Dec, [facility] [place] [facility] [address] [id number] [place] [address]- 1444 Dec, [facility] [place] [facility] [address] [id number] [place] [address]- 9162 Dec, [facility] [place] [facility] [address] [id number] [place] [address]- 5429 Sep, [facility] [place] [facility] [address] [id number] [place] [address]- 9354 Aug, [facility] [place] [facility] [address] [id number] [place] [address]- 6398 Jul, [facility] [place] [facility] [address] [id number] [place] [address]- 1937 16 Jun, 2011 [facility] [place] [facility] [address] [id number] [place] [address]- 8339 Jun, [facility] [place] [facility] [address] [id number] [place] [address]- 2663 Jun, [facility] [place] [facility] [address] [id number] [place] [address]- 0471 05 Jun, 2011 [facility] [place] [facility] [address] [id number] [place] [address]- 8568 May, [facility] [place] [facility] [address] [facility] [id number] [place] [address] May, [facility] [address] [facility] [id number][place] [id number] Apr, [facility] [address] [facility] [id number][place] [address] Jun, [facility] [address] [facility] [id number] [address] Apr, IMMUNIZATIONS No Known Immunizations SOCIAL HISTORY Never Assessed REASON FOR VISIT Medication question PLAN OF CARE VITAL SIGNS MEDICATIONS No [...]
--- OUTSIDE RECORDS SUMMARY | 2018-10-30 20:37 | XMS REPORT ---
Author Author NANCI DOMINICK Organization [facility] Address [address] [place] [address] Care Team Providers Care Cylinder Grinder Name Role Phone CHRISTINEDOMINICK Bradshaw Unavailable PROBLEMS Type Condition ICD9-CM Code HLA78-VE Code Onset Dates Condition Status SNOMED Code Problem On home oxygen therapy Z99.81 Active 497298297309 Problem Essential hypertension I10 Active 11146752 Problem Gastroesophageal reflux disease without esophagitis K21.9 Active 624132243 Problem Tobacco abuse Z72.0 Active 709610198 Problem watermaster current use of insulin Z79.4 Active 066595991 Problem Recurrent major depressive disorder, in full remission F33.42 Active 284276831 Problem Hyperlipidemia, unspecified hyperlipidemia type E78.5 Active 16383163 Problem Type 2 diabetes mellitus with other specified complication E11.69 Active 14465777 Problem Tobacco abuse counseling Z71.6 Active 246416217 Problem Microcytic anemia D50.9 Active 202963783 Problem 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 27380363 Problem Allergic rhinitis J30.9 Active 69530253 Problem Urinary incontinence R32 Active 719819947 Problem Hypothyroidism E03.9 Active 45658154 Problem Obesity due to excess calories E66.09 Active 216265414 ALLERGIES No Information ENCOUNTERS Encounter Location Date Diagnosis [facility] [address] [facility] [id number] [address] November, Pneumonia of right lower lobe due to infectious organism J18.1 ; watermaster current use of insulin Z79.4 ; Type [...] without esophagitis K21.9 and Allergic rhinitis J30.9 [facility] [id number] [place] [address] 12638- 2010 November, [facility] [id number] [place] [address] 91597- 6349 Sep, [facility] [id number] [place] [address] 43171- 6700 Sep, [facility] [address] [address]- [address] Sep, [place] [address] [address]- 98[address] Sep, [facility] [address] [address] Jul, Encounter for immunization Z23 [facility] [address] [address]1197 Jun, Subacute maxillary sinusitis J01.00 [place] [id number] [place] [address] 74983- 5102 May, [place] [address] 8[address]13- 4769 May, [place] [id number] [place] [address] 37940- 5415 May, Type II diabetes mellitus E11.9 ; Hypothyroidism E03.9 ; 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 ; Cough R05 ; COPD with exacerbation J44.1 and Pneumonia of right lower lobe due to infectious organism J18.1 [place] [address] 6[address]99- 7929 Mar, Hyperlipidemia, unspecified hyperlipidemia type E78.5 [place] [id number] [place] [address] 66757- 2572 07 Mar, 2017 Hypothyroidism E03.9 and Hyperlipidemia, unspecified hyperlipidemia type E78.5 [place] [id number] [place] [address] 59687- 2880 Feb, Type II diabetes mellitus E11.9 ; Hypothyroidism E03.9 ; 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 ; Obesity due to excess calories E66.09 ; Allergic rhinitis J30.9 ; Microcytic anemia D50.9 ; Gastroesophageal reflux disease without esophagitis K21.9 ; Essential hypertension I10 ; Hyperlipidemia, unspecified hyperlipidemia type E78.5 ; Recurrent major depressive disorder, in full remission F33.42 and Urinary incontinence R32 [place] [id number] [place] [address] 77205- 4042 Jan, [place] [address] 66698- 1023 Jan, [place] [id number] [place] [address] 47994- 7343 November, [place] [address] 44819- 6539 Sep, Type II diabetes mellitus E11.9 ; [...] and Tinea pedis of both feet B35.3 [place] [id number] [place] [address] 65792- 0524 Jun, [facility] [id number] [place] [address]2010 -8748 Jun, Acute upper respiratory infection, unspecified J06.9 and Other viral agents as the cause of diseases classified elsewhere B97.89 [place] [id number] [place] [address] 52119- 0834 May, [place] [id number] [place] [address] 29085- 5220 May, Type 2 diabetes mellitus with hyperglycemia [...] thrush B37.0 and Encounter for immunization Z23 [place] [id number] [place] [address] 41702- 2007 Apr, [place] [id number] [place] [address] 85941- 4160 Apr, [place] [id number] [place] [address] 17865- 5275 Mar, [place] [id number] [place] [address] 08318- 8378 Dec, [place] [id number] [place] [address] 37011- 9402 Dec, [place] [id number] [place] [address] 33651- 1605 Dec, Encounter for well woman exam with routine gynecological exam Z01.419 ; Encounter for screening for malignant neoplasm of cervix Z12.4 ; Screening mammogram, encounter for Z12.31 ; Encounter for screening breast examination Z12.39 ; On home oxygen therapy Z99.81 ; 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 ; Heat rash L74.0 ; Type II diabetes mellitus E11.9 and Hypothyroidism E03.9 [place] [id number] [place] [address] 57094- 2044 November, [place] [id number] [place] [address] 16301- 3223 November, Type II diabetes mellitus E11.9 ; Allergic rhinitis J30.9 ; Hypothyroidism E03.9 ; Obesity due to excess calories E66.09 ; Urinary incontinence R32 ; Gastroesophageal reflux disease without esophagitis K21.9 and Essential hypertension I10 [facility] [id number] [place] [address] 16829- 1858 Oct, [facility] [id number] [place] [address] 22807- 9027 Sep, [facility] [id number] [place] [address] 95084- 2062 Sep, [facility] [id number] [place] [address] 67132 -2498 Aug, Acute maxillary sinusitis J01.00 [place] [address] 32716- 5465 Aug, [facility] [address] 43283- 2282 Aug, [facility] [id number] [place] [address] 77065- 8552 16 Aug, 2015 Type II diabetes mellitus E11.9 [place] [id number] [place] [address] 80801- 5009 05 Aug, 2015 Type II diabetes mellitus E11.9 ; Hypothyroidism E03.9 ; 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 ; Obesity due to excess calories E66.09 ; Urinary incontinence R32 ; Anemia D64.9 ; Microcytic anemia D50.9 and Allergic rhinitis J30.9 [place] [id number] [place] [address] 45621- 1890 May, Upper respiratory symptom R09.89 [place] [id number] [place] [address] 13446- 6685 May, Oral thrush B37.0 [place] [id number] [place] [address] 09905- 3433 Apr, Hypothyroidism E03.9 and Microcytic anemia D50.9 [place] [address] 42773- 6512 Apr, Encounter for long-term current use of medication Z79.899 ; Hypothyroidism E03.9 ; Microcytic anemia D50.9 ; Type 2 diabetes mellitus without complication E11.9 ; Essential hypertension I10 and Mixed incontinence N39.46 [facility] [address] [address]- 9860 Apr, [facility] [id number] [place] [address] 58676- 3129 Mar, [facility] [id number] [place] [address] 99475- 7677 Mar, [facility] [id number] [place] [address] 96290- 0441 Mar, [facility] [id number] [place] [address] 30235- 7555 Mar, [facility] [id number] [place] [address] 44185- 8363 Mar, [facility] [id number] [place] [address] 03484- 0344 Mar, [facility] [id number] [place] [address] 43560- 5308 Mar, [facility] [address] [address]- 3191 Feb, Cough 786.2 ; Wheezing 786.07 ; Hypothyroidism 244.9 and Encounter for long-term current use of medication V58.69 [facility] [id number] [place] [address] 12182- 3835 Feb, Diabetes type 2, uncontrolled 250.02 ; Depression 311 ; Encounter for long-term current use of medication V58.69 and Hypothyroidism 244.9 [facility] [address] [address]- 2510 Feb, [facility] [id number] [place] [address] 40695- 5019 Jan, [facility] [place] [facility] [address] [id number] [place] [address]- 7105 28 Oct, 2014 [facility] [place] [facility] [address] [id number] [place] [address]- 1691 14 Oct, 2014 [facility] [place] [facility] [address] [id number] [place] [address]- 5092 Oct, [facility] [place] [facility] [address] [id number] [place] [address]- 7266 Sep, [facility] [place] [facility] [address] [id number] [place] [address]- 8926 Sep, [facility] [place] [facility] [address] [id number] [place] [address]- 2192 Sep, [facility] [place] [facility] [address] [id number] [place] [address]- 0935 Aug, [facility] [place] [facility] [address] [id number] [place] [address]- 9361 Aug, [facility] [place] [facility] [address] [id number] [place] [address]- 0029 Jul, [facility] [place] [facility] [address] [id number] [place] [address]- 9285 Jul, [facility] [place] [facility] [address] [id number] [address]- 1650 Jul, [facility] [place] [facility] [address] [id number] [address]- 0569 Jul, [facility] [place] [facility] [address] [id number] [place] [address]- 6967 Jul, [facility] [place] [facility] [address] [id number] [place] [address]- 3458 Jul, [facility] [place] [facility] [address] [id number] [place] [address]- 3349 Jul, [facility] [place] [facility] [address] [id number] [place] [address]- 9983 Jul, [facility] [place] [facility] [address] [id number] [place] [address]- 6620 Jun, [facility] [place] [facility] [address] [id number] [place] [address]- 1872 Jun, [facility] [place] [facility] [address] [id number] [place] [address]- 5553 May, [facility] [place] [facility] [address] [id number] [place] [address]- 4892 May, [facility] [place] [facility] [address] [id number] [place] [address]- 4216 May, [facility] [place] [facility] [address] [id number] [place] [address]- 0624 Apr, [facility] [place] [facility] [address] [id number] [place] [address]- 2732 Apr, [facility] [place] [facility] [address] [id number] [place] [address]- 1803 Apr, [facility] [place] [facility] [address] [id number] [place] [address]- 5943 Apr, [facility] [place] [facility] [address] [facility] [id number] [place] [address]- 6792 Apr, [facility] [place] [facility] [address] [id number] [place] [address]- 5088 Apr, [facility] [place] [facility] [address] [id number] [place] [address]- 2198 Mar, [facility] [place] [facility] [address] [id number] [place] [address]- 8374 22 Mar, 2014 [facility] [place] [facility] [address] [id number] [place] [address]- 1844 19 Mar, 2014 [facility] [place] [facility] [address] [id number] [place] [address]- 1893 Mar, [facility] [place] [facility] [address] [id number] [place] [address]- 5914 Sep, [facility] [place] [facility] [address] [id number] [place] [address]- 5955 Sep, [facility] [place] [facility] [address] [id number] [place] [address]- 1482 Sep, [facility] [place] [facility] [address] [id number] [place] [address]- 1520 Sep, [facility] [place] [facility] [address] [id number] [place] [address]- 8989 Aug, [facility] [place] [facility] [address] [id number] [place] [address]- 5341 Aug, [facility] [place] [facility] [address] [id number] [place] [address]- 3607 Aug, [facility] [place] [facility] [address] [id number] [place] [address]- 2812 Aug, [facility] [place] [facility] [address] [id number] [place] [address]- 8420 Aug, [facility] [place] [facility] [address] [id number] [place] [address]- 3973 Aug, [facility] [place] [facility] [address] [id number] [place] [address]- 1142 Jul, [facility] [place] [facility] [address] [id number] [place] [address]- 9108 Jul, [facility] [place] [facility] [address] [id number] [place] [address]- 9038 Jul, [facility] [place] [facility] [address] [id number] [place] [address]- 5961 Jul, [facility] [place] [facility] [address] [id number] [place] [address]- 9676 Jun, [facility] [place] [facility] [address] [id number] [place] [address]- 5047 Jun, [facility] [address] [id number] [place] [address]- 5542 May, [facility] [place] [facility] [address] [id number] [place] [address]- 8201 May, [facility] [place] [facility] [address] [id number] [place] [address]- 9542 Apr, [facility] [place] [facility] [address] [id number] [place] [address]- 6033 Apr, [facility] [place] [facility] [address] [id number] [place] [address]- 1531 Apr, [facility] [place] [facility] [address] [id number] [place] [address]- 0741 Mar, [facility] [place] [facility] [address] [id number] [place] [address]- 6679 Mar, [facility] [place] [facility] [address] [id number] [place] [address]- 1570 04 Mar, 2013 [facility] [place] [facility] [address] [id number] [place] [address]- 8648 Mar, [facility] [place] [facility] [address] [id number] [place] [address]- 5324 Feb, [facility] [place] [facility] [address] [id number] [place] [address]- 7676 Jan, [facility] [place] [facility] [address] [id number] [place] [address]- 6312 Jan, [facility] [place] [facility] [address] [id number] [place] [address]- 2928 Jan, [facility] [place] [facility] [address] [id number] [place] [address]- 6173 Jan, [facility] [place] [facility] [address] [id number] [place] [address]- 6471 Dec, [facility] [place] [facility] [address] [id number] [place] [address]- 8228 Dec, [facility] [address] [id number] [place] [address]- 2913 Dec, [facility] [place] [facility] [address] [id number] [place] [address]- 2561 Dec, [facility] [place] [facility] [address] [id number] [place] [address]- 2313 Dec, [facility] [address] [id number] [place] [address]- 3273 Dec, [facility] [place] [facility] [address] [id number] [place] [address]- 0437 November, [facility] [address] [id number] [place] [address]- 8159 November, [facility] [address] [id number] [place] [address]- 5016 November, [facility] [address] [id number] [place] [address]- 5795 Oct, [facility] [place] [facility] [address] [id number] [place] [address]- 9901 Oct, [facility] [place] [facility] [address] [id number] [place] [address]- 9675 Sep, [facility] [place] [facility] [address] [id number] [place] [address]- 1786 Sep, [facility] [place] [facility] [address] [id number] [place] [address]- 6924 Sep, [facility] [place] [facility] [address] [id number] [place] [address]- 8517 Sep, [facility] [place] [facility] [address] [id number] [place] [address]- 2278 Sep, [facility] [place] [facility] [address] [id number] [place] [address]- 9094 Aug, [facility] [address] [id number] [place] [address]- 9735 12 Aug, 2012 [facility] [address] [id number] [place] 9226 11 Aug, 2012 [facility] [address] [id number] [place] [address]- 8336 07 Aug, 2012 [facility] [address] [id number] [place] [address]- 3167 04 Aug, 2012 [facility] [address] [id number] [place] [address]- 9830 Jul, [facility] [address] [id number] [place] [address]- 2424 Jul, [facility] [address] [facility] [id number] [place] [address]- 9645 Jun, [facility] [address] [id number] [place] [address]- 7448 Jun, [facility] [address] [facility] [id number] [place] [address]- 7992 18 Jun, 2012 [facility] [address] [facility] [id number] [place] [address]- 3893 18 Jun, 2012 [facility] [address] [facility] [id number] [place] [address]- 9704 Jun, [facility] [place] [facility] [address] [id number] [place] [address]- 8013 10 Jun, 2012 [facility] [place] [facility] [address] [id number] [place] [address]- 3069 07 Jun, 2012 [facility] [place] [facility] [address] [facility] [id number] [place] [address]- 3561 06 Jun, 2012 [facility] [address] [facility] [id number] [place] [address]- 8617 06 Jun, 2012 [facility] [place] [facility] [address] [id number] [place] [address]- 2299 May, [facility] [place] [facility] [address] [id number] [place] [address]- 0103 May, [facility] [place] [facility] [address] [id number] [place] [address]- 2000 May, [facility] [place] [facility] [address] [id number] [place] [address]- 8136 May, [facility] [place] [facility] [address] [id number] [place] [address]- 3230 May, [facility] [place] [facility] [address] [id number] [place] [address]- 3912 May, [facility] [place] [facility] [address] [id number] [place] [address]- 7724 May, [facility] [place] [facility] [address] [id number] [place] [address]- 7399 Apr, [facility] [place] [facility] [address] [id number] [place] [address]- 7388 Mar, [facility] [place] [facility] [address] [id number] [place] [address]- 7278 Mar, [facility] [place] [facility] [address] [id number] [place] [address]- 6734 Feb, [facility] [place] [facility] [address] [id number] [place] [address]- 2539 Feb, [facility] [place] [facility] [address] [id number] [place] [address]- 3354 Feb, [facility] [place] [facility] [address] [id number] [place] [address]- 5846 Feb, [facility] [place] [facility] [address] [id number] [place] [address]- 9655 Jan, [facility] [place] [facility] [address] [id number] [place] [address]- 4487 Jan, [facility] [place] [facility] [address] [id number] [place] [address]- 4718 Jan, [facility] [place] [facility] [address] [id number] [place] [address]- 9192 Jan, [facility] [place] [facility] [address] [id number] [place] [address]- 8881 Dec, [facility] [place] [facility] [address] [id number] [place] [address]- 2854 Dec, [facility] [place] [facility] [address] [id number] [place] [address]- 3458 Dec, [facility] [place] [facility] [address] [id number] [place] [address]- 8072 Dec, [facility] [place] [facility] [address] [id number] [place] [address]- 1701 Dec, [facility] [place] [facility] [address] [id number] [place] [address]- 7823 Sep, [facility] [place] [facility] [address] [id number] [place] [address]- 4186 Aug, [facility] [place] [facility] [address] [id number] [place] [address]- 4550 Jul, [facility] [place] [facility] [address] [id number] [place] [address] 16 Jun, 2011 [facility] [place] [facility] [address] [id number] [place] [address] Jun, [facility] [place] [facility] [address] [id number] [place] [address] Jun, [facility] [place] [facility] [address] [id number] [place] [address] 05 Jun, 2011 [facility] [place] [facility] [address] [id number] [place] [address] May, [facility] [place] [facility] [address] [facility] [id number] [place] [address] May, [facility] [address] [facility] [id number] [place] [address] Apr, [facility] [address] [facility] [id number] [place] [address] Jun, [facility] [address] [facility] [id number] [place] [address] Apr, IMMUNIZATIONS No Known Immunizations SOCIAL HISTORY Never Assessed REASON FOR VISIT refill request PLAN OF CARE VITAL SIGNS MEDICATIONS Medication Instructions Dosage Frequency Start Date End Date Duration Status Levothyroxine Sodium 175 MCG Orally Once a day TAKE ONE TABLET BY MOUTH IN THE MORNING ON AN EMPTY STOMACH WITH A FULL GLASS OF WATER 24h 30 days Active Advair Diskus 250-50 MCG/DOSE INHALE ONE PUFF BY MOUTH TWICE DAILY APPROXIMATELY 12 HOURS APART 30 Active RESULTS No Results PROCEDURES No Known [...]
--- OUTSIDE RECORDS SUMMARY | 2018-10-30 20:38 | XMS REPORT ---
Author Author NANCI DOMINICK Organization [facility] Address [address] [place] [address] Care Team Providers Care Lay Out Drafter Name Role Phone CHRISTINEDOMINICK Bradshaw Unavailable PROBLEMS Type Condition ICD9-CM Code GZO39-GR Code Onset Dates Condition Status SNOMED Code Problem On home oxygen therapy Z99.81 Active 811720063013 Problem Essential hypertension I10 Active 02422238 Problem Gastroesophageal reflux disease without esophagitis K21.9 Active 366666059 Problem Tobacco abuse Z72.0 Active 149876906 Problem automation qa lead current use of insulin Z79.4 Active 543712724 Problem Recurrent major depressive disorder, in full remission F33.42 Active 104526177 Problem Hyperlipidemia, unspecified hyperlipidemia type E78.5 Active 88116395 Problem Type 2 diabetes mellitus with other specified complication E11.69 Active 70613876 Problem Tobacco abuse counseling Z71.6 Active 165543214 Problem Microcytic anemia D50.9 Active 150072775 Problem 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 30184097 Problem Allergic rhinitis J30.9 Active 48694390 Problem Urinary incontinence R32 Active 998422585 Problem Hypothyroidism E03.9 Active 29542261 Problem Obesity due to excess calories E66.09 Active 520128227 ALLERGIES No Information ENCOUNTERS Encounter Location Date Diagnosis [facility] [address] [id number] [address] November, Pneumonia of right lower lobe due to infectious organism J18.1 ; automation qa lead current use of insulin Z79.4 ; Type [...] without esophagitis K21.9 and Allergic rhinitis J30.9 [facility] [id number] [place] [address] 45872- 1201 November, [facility] [id number] [place] [address] 96864- 7836 Sep, [facility] [id number] [place] [address] 24583- 5671 Sep, [facility] [address] [address]- [address]48 Sep, [place] [address] [address]- [address] Sep, [facility] [address] [address] Jul, Encounter for immunization Z23 [facility] [address] [address] Jun, Subacute maxillary sinusitis J01.00 [place] [id number] [place] [address] 19806- 4753 May, [place] [address] [address]31- 7014 May, [place] [id number] [place] [address] 16942- 3907 May, Type II diabetes mellitus E11.9 ; Hypothyroidism E03.9 ; 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 ; Cough R05 ; COPD with exacerbation J44.1 and Pneumonia of right lower lobe due to infectious organism J18.1 [place] [address] 25821- 6643 Mar, Hyperlipidemia, unspecified hyperlipidemia type E78.5 [place] [id number] [place] [address] 35495- 3638 07 Mar, 2017 Hypothyroidism E03.9 and Hyperlipidemia, unspecified hyperlipidemia type E78.5 [place] [id number] [place] [address] 77154- 0671 Feb, Type II diabetes mellitus E11.9 ; Hypothyroidism E03.9 ; 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 ; Obesity due to excess calories E66.09 ; Allergic rhinitis J30.9 ; Microcytic anemia D50.9 ; Gastroesophageal reflux disease without esophagitis K21.9 ; Essential hypertension I10 ; Hyperlipidemia, unspecified hyperlipidemia type E78.5 ; Recurrent major depressive disorder, in full remission F33.42 and Urinary incontinence R32 [place] [id number] [place] [address] 92209- 4516 Jan, [place] [address] 7[address]20- 7103 Jan, [place] [id number] [place] [address] 97767- 7656 November, [place] [address] 57122- 6582 Sep, Type II diabetes mellitus E11.9 ; [...] and Tinea pedis of both feet B35.3 [place] [id number] [place] [address] 49269- 5834 Jun, [facility] [id number] [place] [address] 54470 -0867 Jun, Acute upper respiratory infection, unspecified J06.9 and Other viral agents as the cause of diseases classified elsewhere B97.89 [place] [id number] [place] [address] 61420- 5494 May, [place] [id number] [place] [address] 47671- 4145 May, Type 2 diabetes mellitus with hyperglycemia [...] thrush B37.0 and Encounter for immunization Z23 [place] [id number] [place] [address] 03730- 1381 Apr, [place] [id number] [place] [address] 81375- 8570 Apr, [place] [id number] [place] [address] 76501- 0871 Mar, [place] [id number] [place] [address] 47805- 8526 Dec, [place] [id number] [place] [address] 09372- 8407 Dec, [place] [id number] [place] [address] 64145- 6721 Dec, Encounter for well woman exam with routine gynecological exam Z01.419 ; Encounter for screening for malignant neoplasm of cervix Z12.4 ; Screening mammogram, encounter for Z12.31 ; Encounter for screening breast examination Z12.39 ; On home oxygen therapy Z99.81 ; 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 ; Heat rash L74.0 ; Type II diabetes mellitus E11.9 and Hypothyroidism E03.9 [place] [id number] [place] [address] 31366- 8274 November, [place] [id number] [place] [address] 01998- 2318 November, Type II diabetes mellitus E11.9 ; Allergic rhinitis J30.9 ; Hypothyroidism E03.9 ; Obesity due to excess calories E66.09 ; Urinary incontinence R32 ; Gastroesophageal reflux disease without esophagitis K21.9 and Essential hypertension I10 [facility] [id number] [place] [address] 60168- 9584 Oct, [facility] [id number] [place] [address] 84736- 0428 Sep, [facility] [id number] [place] [address] 75504- 9912 Sep, [facility] [id number] [place] [address] 12918 -1736 Aug, Acute maxillary sinusitis J01.00 [place] [address] 45053- 1697 Aug, [facility] [address] 49762- 6927 Aug, [facility] [id number] [place] [address] 36829- 8718 16 Aug, 2015 Type II diabetes mellitus E11.9 [place] [id number] [place] [address] 23607- 3410 05 Aug, 2015 Type II diabetes mellitus E11.9 ; Hypothyroidism E03.9 ; 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 ; Obesity due to excess calories E66.09 ; Urinary incontinence R32 ; Anemia D64.9 ; Microcytic anemia D50.9 and Allergic rhinitis J30.9 [place] [id number] [place] [address] 19209- 3701 May, Upper respiratory symptom R09.89 [place] [id number] [place] [address] 26418- 9413 May, Oral thrush B37.0 [place] [id number] [place] [address] 51305- 0191 Apr, Hypothyroidism E03.9 and Microcytic anemia D50.9 [place] [address] 32265- 6311 Apr, Encounter for long-term current use of medication Z79.899 ; Hypothyroidism E03.9 ; Microcytic anemia D50.9 ; Type 2 diabetes mellitus without complication E11.9 ; Essential hypertension I10 and Mixed incontinence N39.46 [facility] [address] [address]- 1611 Apr, [facility] [id number] [place] [address] 93472- 1027 Mar, [facility] [id number] [place] [address] 90764- 4519 Mar, [facility] [id number] [place] [address] 71226- 7075 Mar, [facility] [id number] [place] [address] 72398- 6057 Mar, [facility] [id number] [place] [address] 04020- 3131 Mar, [facility] [id number] [place] [address] 17391- 1996 Mar, [facility] [id number] [place] [address] 26493- 7193 Mar, [facility] [address] [address]- 5362 Feb, Cough 786.2 ; Wheezing 786.07 ; Hypothyroidism 244.9 and Encounter for long-term current use of medication V58.69 [facility] [id number] [place] [address] 17062- 5111 Feb, Diabetes type 2, uncontrolled 250.02 ; Depression 311 ; Encounter for long-term current use of medication V58.69 and Hypothyroidism 244.9 [facility] [address], [place] [address]- 1489 Feb, [facility] [id number] [place] [address] 33842- 5113 Jan, [facility] [place] [facility] [address] [id number] [place] [address]- 1018 28 Oct, 2014 [facility] [place] [facility] [address] [id number] [place] [address]- 5243 14 Oct, 2014 [facility] [place] [facility] [address] [id number] [place] [address]- 4306 Oct, [facility] [place] [facility] [address] [id number] [place] [address]- 3348 Sep, [facility] [place] [facility] [address] [id number] [place] [address]- 4125 Sep, [facility] [place] [facility] [address] [id number] [place] [address]- 0597 Sep, [facility] [place] [facility] [address] [id number] [place] [address]- 4258 Aug, [facility] [place] [facility] [address] [id number] [place] [address]- 1234 Aug, [facility] [place] [facility] [address] [id number] [place] [address]- 7800 Jul, [facility] [place] [facility] [address] [id number] [place] [address]- 7975 Jul, [facility] [place] [facility] [address] [id number], [place] [address]- 9842 Jul, [facility] [place] [facility] [address] [id number], [place] [address]- 2012 Jul, [facility] [place] [facility] [address] [id number] [place] [address]- 1325 Jul, [facility] [place] [facility] [address] [id number] [place] [address]- 4359 Jul, [facility] [place] [facility] [address] [id number] [place] [address]- 6273 Jul, [facility] [place] [facility] [address] [id number] [place] [address]- 1122 Jul, [facility] [place] [facility] [address] [id number] [place] [address]- 7229 Jun, [facility] [place] [facility] [address] [id number] [place] [address]- 4101 Jun, [facility] [place] [facility] [address] [id number] [place] [address]- 3394 May, [facility] [place] [facility] [address] [id number] [place] [address]- 7405 May, [facility] [place] [facility] [address] [id number] [place] [address]- 8157 May, [facility] [place] [facility] [address] [id number] [place] [address]- 2171 Apr, [facility] [place] [facility] [address] [id number] [place] [address]- 9718 Apr, [facility] [place] [facility] [address] [id number] [place] [address]- 3288 Apr, [facility] [place] [facility] [address] [id number] [place] [address]- 1577 Apr, [facility] [place] [facility] [address] [id number] [place] [address]- 7037 Apr, [facility] [place] [facility] [address] [id number] [place] [address]- 2555 Apr, [facility] [place] [facility] [address] [id number] [place] [address]- 7723 Mar, [facility] [place] [facility] [address] [id number] [place] [address]- 7299 22 Mar, 2014 [facility] [place] [facility] [address] [id number] [place] [address]- 7325 19 Mar, 2014 [facility] [place] [facility] [address] [id number] [place] [address]- 7202 Mar, [facility] [place] [facility] [address] [id number] [place] [address]- 3179 Sep, [facility] [place] [facility] [address] [id number] [place] [address]- 8134 Sep, [facility] [place] [facility] [address] [id number] [place] [address]- 9157 Sep, [facility] [place] [facility] [address] [id number] [place] [address]- 9903 Sep, [facility] [place] [facility] [address] [id number] [place] [address]- 6536 Aug, [facility] [place] [facility] [address] [id number] [place] [address]- 0441 Aug, [facility] [place] [facility] [address] [id number] [place] [address]- 4785 Aug, [facility] [place] [facility] [address] [id number] [place] [address]- 0381 Aug, [facility] [place] [facility] [address] [id number] [place] [address]- 3021 Aug, [facility] [place] [facility] [address] [id number] [place] [address]- 5803 Aug, [facility] [place] [facility] [address] [id number] [place] [address]- 9257 Jul, [facility] [place] [facility] [address] [id number] [place] [address]- 7378 Jul, [facility] [place] [facility] [address] [id number] [place] [address]- 3516 Jul, [facility] [place] [facility] [address] [id number] [place] [address]- 7101 Jul, [facility] [place] [facility] [address] [id number] [place] [address]- 6128 Jun, [facility] [place] [facility] [address] [id number] [place] [address]- 7493 Jun, [facility] [address] [id number] [place] [address]- 2938 May, [facility] [place] [facility] [address] [id number] [place] [address]- 1297 May, [facility] [place] [facility] [address] [id number] [place] [address]- 5883 Apr, [facility] [place] [facility] [address] [id number] [place] [address]- 4611 Apr, [facility] [place] [facility] [address] [id number] [place] [address]- 7696 Apr, [facility] [place] [facility] [address] [id number] [place] [address]- 2455 Mar, [facility] [place] [facility] [address] [id number] [place] [address]- 8194 Mar, [facility] [place] [facility] [address] [id number] [place] [address]- 0220 04 Mar, 2013 [facility] [place] [facility] [address] [id number] [place] [address]- 5802 Mar, [facility] [place] [facility] [address] [id number] [place] [address]- 4181 Feb, [facility] [place] [facility] [address] [id number] [place] [address]- 6829 Jan, [facility] [place] [facility] [address] [id number] [place] [address]- 5587 Jan, [facility] [place] [facility] [address] [id number] [place] [address]- 9072 Jan, [facility] [place] [facility] [address] [id number] [place] [address]- 4202 Jan, [facility] [place] [facility] [address] [id number] [place] [address]- 2582 Dec, [facility] [place] [facility] [address] [id number] [place] [address]- 7017 Dec, [facility] [address] [id number] [place] [address]- 4965 Dec, [facility] [place] [facility] [address] [id number] [place] [address]- 3075 Dec, [facility] [place] [facility] [address] [id number] [place] [address]- 7134 Dec, [facility] [address] [id number] [place] [address]- 2562 Dec, [facility] [place] [facility] [address] [id number] [place] [address]- 3268 November, [facility] [address] [id number] [place] [address]- 4436 November, [facility] [address] [id number] [place] [address]- 9820 November, [facility] [address] [id number] [place] [address]- 3113 Oct, [facility] [place] [facility] [address] [id number] [place] [address]- 4584 Oct, [facility] [place] [facility] [address] [id number] [place] [address]- 9621 Sep, [facility] [place] [facility] [address] [id number] [place] [address]- 7608 Sep, [facility] [place] [facility] [address] [id number] [place] [address]- 4177 Sep, [facility] [place] [facility] [address] [id number] [place] [address]- 5635 Sep, [facility] [place] [facility] [address] [id number] [place] [address]- 6802 Sep, [facility] [place] [facility] [address] [id number] [place] [address]- 3440 Aug, [facility] [address] [id number] [place] [address]- 3235 12 Aug, 2012 [facility] [address] [id number] [place] 4756 11 Aug, 2012 [facility] [address] [id number] [place] [address]- 3436 07 Aug, 2012 [facility] [address] [id number] [place] [address]- 7140 04 Aug, 2012 [facility] [address] [id number] [place] [address]- 3483 Jul, [facility] [address] [id number] [place] [address]- 7100 Jul, [facility] [address] [id number] [place] [address]- 8212 Jun, [facility] [address] [id number] [place] [address]- 7562 Jun, [facility] [address] [id number] [place] [address]- 0915 18 Jun, 2012 [facility] [address] [id number] [place] [address]- 2808 18 Jun, 2012 [facility] [address] [id number] [place] [address]- 2839 Jun, [facility] [place] [facility] [address] [id number] [place] [address]- 7439 10 Jun, 2012 [facility] [place] [facility] [address] [id number] [place] [address]- 9350 07 Jun, 2012 [facility] [place] [facility] [address] [id number] [place] [address]- 0019 06 Jun, 2012 [facility] [address] [id number] [place] [address]- 5348 06 Jun, 2012 [facility] [place] [facility] [address] [id number] [place] [address]- 8658 May, [facility] [place] [facility] [address] [id number] [place] [address]- 4526 May, [facility] [place] [facility] [address] [id number] [place] [address]- 9863 May, [facility] [place] [facility] [address] [id number] [place] [address]- 2018 May, [facility] [place] [facility] [address] [id number] [place] [address]- 7232 May, [facility] [place] [facility] [address] [id number] [place] [address]- 8401 May, [facility] [place] [facility] [address] [id number] [place] [address]- 2079 May, [facility] [place] [facility] [address] [id number] [place] [address]- 9369 Apr, [facility] [place] [facility] [address] [id number] [place] [address]- 8453 Mar, [facility] [place] [facility] [address] [id number] [place] [address]- 2902 Mar, [facility] [place] [facility] [address] [id number] [place] [address]- 0451 Feb, [facility] [place] [facility] [address] [id number] [place] [address]- 6897 Feb, [facility] [place] [facility] [address] [id number] [place] [address]- 4914 Feb, [facility] [place] [facility] [address] [id number] [place] [address]- 3477 Feb, [facility] [place] [facility] [address] [id number] [place] [address]- 2080 Jan, [facility] [place] [facility] [address] [id number] [place] [address]- 5921 Jan, [facility] [place] [facility] [address] [id number] [place] [address]- 4826 Jan, [facility] [place] [facility] [address] [id number] [place] [address] Jan, [facility] [place] [facility] [address] [id number] [place] [address] Dec, [facility] [place] [facility] [address] [id number] [place] [address] Dec, [facility] [place] [facility] [address] [id number] [place] [address] Dec, [facility] [place] [facility] [address] [id number] [place] [address] Dec, [facility] [place] [facility] [address] [id number] [place] [address] Dec, [facility] [place] [facility] [address] [id number] [place] [address] Sep, [facility] [place] [facility] [address] [id number] [place] [address] Aug, [facility] [place] [facility] [address] [id number] [place] [address] Jul, [facility] [place] [facility] [address] [id number] [place] [address] 16 Jun, 2011 [facility] [place] [facility] [address] [id number] [place] [address] Jun, [facility] [place] [facility] [address] [id number] [place] [address] Jun, [facility] [place] [facility] [address] [id number] [place] [address] 05 Jun, 2011 [facility] [place] [facility] [address] [id number] [place] [address] May, [facility] [place] [facility] [address] [id number] [place] [address] May, [facility] [address] [id number], [place] [address] Apr, [facility] [address] [id number], [place] [address] Jun, [facility] [address] [id number], [place] [address] Apr, IMMUNIZATIONS No Known Immunizations SOCIAL HISTORY Never Assessed REASON FOR VISIT Medication refill request PLAN OF CARE VITAL SIGNS MEDICATIONS Medication Instructions Dosage Frequency Start Date End Date Duration Status Levothyroxine Sodium 175 MCG Orally Once a day TAKE ONE TABLET BY MOUTH IN THE MORNING ON AN EMPTY STOMACH WITH A FULL GLASS OF WATER 24h 30 days Active RESULTS No Results PROCEDURES No [...]
--- OUTSIDE RECORDS SUMMARY | 2018-10-30 20:39 | XMS REPORT ---
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 339881059 Problem Recurrent major depressive disorder, in full remission F33.42 Active 374297653 Problem Hyperlipidemia, unspecified hyperlipidemia type E78.5 Active 91711007 Problem Type 2 diabetes mellitus with other specified complication E11.69 Active 75035729 Problem Tobacco abuse counseling Z71.6 Active 378470514 Problem Microcytic anemia D50.9 Active 276399067 Problem 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 84791566 Problem Allergic rhinitis J30.9 Active 08384917 Problem Urinary incontinence R32 Active 648331928 Problem Hypothyroidism E03.9 Active 31320352 Problem Obesity due to excess calories E66.09 Active 199270338 ALLERGIES Substance Reaction Event Type Date Status Bactrim Unknown Drug Allergy Jun, Active ENCOUNTERS Encounter Location Date Diagnosis [facility] [address] [facility] [id number], [place] [address] Jan, [facility] [address] [facility] [id number], [place] [address] November, Pneumonia of right lower lobe due to infectious organism J18.1 ; half-way current use of insulin Z79.4 ; Type [...] without esophagitis K21.9 and Allergic rhinitis J30.9 [facility] [id number] [place] [address] 08151- 1147 November, [facility] [address] [address]51- 4733 Sep, [facility] [address] [address]- 4212 Sep, [place] [address] [address]- 5167 Sep, [place] [id number] [place] [address] 51860- 8380 Sep, [facility] [id number] [place] [address] 67163 -0572 Jul, Encounter for immunization Z23 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 ; Cough R05 ; COPD with exacerbation J44.1 and Pneumonia of right lower lobe due to infectious organism J18.1 [facility] [id number] [place] [address] 87099- 2222 08 Mar, 2017 Hyperlipidemia, unspecified hyperlipidemia type E78.5 [facility] [id number] [place] [address] 85163- 6864 Mar, Hypothyroidism E03.9 and Hyperlipidemia, unspecified hyperlipidemia type E78.5 [facility] [id number] [place] [address] 91974- 6281 Feb, Type II diabetes mellitus E11.9 ; Hypothyroidism E03.9 ; 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 ; Obesity due to excess calories E66.09 ; Allergic rhinitis J30.9 ; Microcytic anemia D50.9 ; Gastroesophageal reflux disease without esophagitis K21.9 ; Essential hypertension I10 ; Hyperlipidemia, unspecified hyperlipidemia type E78.5 ; Recurrent major depressive disorder, in full remission F33.42 and Urinary incontinence R32 [place] [id number] [place] [address] 12340- 0492 Jan, [place] [address] [address]21- 5035 Jan, [facility] [id number] [place] [address] 39916- 3641 November, [facility] [id number] [place] [address] 60850- 5989 Sep, Type II diabetes mellitus E11.9 ; [...] and Tinea pedis of both feet B35.3 [facility] [id number] [place] [address] 45190- 6233 Jun, [facility] [id number] [place] [address] 97970 -5860 Jun, Acute upper respiratory infection, unspecified J06.9 and Other viral agents as the cause of diseases classified elsewhere B97.89 [place] [id number] [place] [address] 87066- 6214 May, [place] [id number] [place] [address] 09067- 2414 May, Type 2 diabetes mellitus with hyperglycemia [...] thrush B37.0 and Encounter for immunization Z23 [place] [id number] [place] [address] 80173- 8487 Apr, [place] [id number] [place] [address] 34883- 4712 Apr, [place] [id number] [place] [address] 75119- 4302 Mar, [address] 25494- 5298 Dec, [place] [id number] [place] [address] 47826- 3464 Dec, [place] [id number] [place] [address] 00713- 1738 Dec, Encounter for well woman exam with routine gynecological exam Z01.419 ; Encounter for screening for malignant neoplasm of cervix Z12.4 ; Screening mammogram, encounter for Z12.31 ; Encounter for screening breast examination Z12.39 ; On home oxygen therapy Z99.81 ; 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 ; Heat rash L74.0 ; Type II diabetes mellitus E11.9 and Hypothyroidism E03.9 [place] [id number] [place] [address] 40133- 4150 November, [place] [id number] [place] [address] 55526- 2941 November, Type II diabetes mellitus E11.9 ; Allergic rhinitis J30.9 ; Hypothyroidism E03.9 ; Obesity due to excess calories E66.09 ; Urinary incontinence R32 ; Gastroesophageal reflux disease without esophagitis K21.9 and Essential hypertension I10 [place] [address] 09889- 0500 Oct, [place] [address] 81576- 1284 Sep, [facility] [address] 69718- 2380 Sep, 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 ; Obesity due to excess calories E66.09 ; Urinary incontinence R32 ; Anemia D64.9 ; Microcytic anemia D50.9 and Allergic rhinitis J30.[address] 23057- 3765 May, Upper respiratory symptom R09.[address] 65637- 4443 May, Oral thrush B37.[address] [place] [address] 25717- 0597 Apr, Hypothyroidism E03.9 and Microcytic anemia D50.9 [place] [id number] [place] [address] 57438- 1706 Apr, Encounter for long-term current use of medication Z79.899 ; Hypothyroidism E03.9 ; Microcytic anemia D50.9 ; Type 2 diabetes mellitus without complication E11.9 ; Essential hypertension I10 and Mixed incontinence N39.46 [place] [id number] [place] [address] 30641- 1814 Apr, [place] [id number] [place] [address] 12045- 4735 Mar, [place] [id number] [place] [address] 07881- 1800 Mar, [place] [id number] [place] [address] 00764- 0928 Mar, [place] [id number] [place] [address] 73601- 3683 Mar, [place] [id number] [place] [address] 83083- 1539 Mar, [place] [id number] [place] [address] 22059- 9625 Mar, [place] [id number] [place] [address] 29189- 1366 Mar, [place] [id number] [place] [address] 29877- 2589 Feb, Cough 786.2 ; Wheezing 786.07 ; Hypothyroidism 244.9 and Encounter for long-term current use of medication V58.69 [place] [address] [place] [address] 80291- 1748 Feb, Diabetes type 2, uncontrolled 250.02 ; Depression 311 ; Encounter for long-term current use of medication V58.69 and Hypothyroidism 244.9 [place] [address] [id number] [place] [address]- 5764 Feb, [facility] [place] [facility] [address] [id number] [place] [address]- 6034 Jan, [facility] [place] [facility] [address] [id number] [place] [address]- 6176 Oct, [facility] [place] [facility] [address] [id number] [place] [address]- 5904 Oct, [facility] [place] [facility] [address] [id number] [place] [address]- 3285 Oct, [facility] [place] [facility] [address] [id number] [place] [address]- 2282 Sep, [facility] [place] [facility] [address] [id number] [place] [address]- 0212 Sep, [facility] [place] [facility] [address] [id number] [place] [address]- 8120 Sep, [facility] [place] [facility] [address] [id number] [place] [address]- 5978 Aug, [facility] [place] [facility] [address] [id number] [place] [address]- 2477 Aug, [facility] [place] [facility] [address] [id number] [place] [address]- 3355 Jul, [facility] [place] [facility] [address] [id number] [place] [address]- 2811 Jul, [facility] [place] [facility] [address] [id number] [place] [address]- 0388 Jul, [facility] [place] [facility] [address] [id number] [place] [address]- 7148 Jul, [facility] [place] [facility] [address] [id number] [place] [address]- 8205 Jul, [facility] [place] [facility] [address] [id number] [place] [address]- 9646 Jul, [facility] [place] [facility] [address] [id number] [place] [address]- 1294 Jul, [facility] [place] [facility] [address] [id number] [place] [address]- 7498 Jul, [facility] [place] [facility] [address] [id number] [place] [address]- 5468 Jun, [facility] [place] [facility] [address] [id number] [place] [address]- 9794 Jun, [facility] [place] [facility] [address] [id number] [place] [address]- 6185 May, [facility] [place] [facility] [address] [id number] [place] [address]- 4083 May, [facility] [place] [facility] [address] [id number] [place] [address]- 2296 May, [facility] [place] [facility] [address] [id number] [place] [address]- 5557 Apr, [facility] [place] [facility] [address] [id number] [place] [address]- 1501 Apr, [facility] [place] [facility] [address] [id number] [place] [address]- 8523 Apr, [facility] [place] [facility] [address] [id number], [place] [address]- 8570 Apr, [facility] [place] [facility] [address] [id number], [place] [address]- 4097 Apr, [facility] [place] [facility] [address] [id number] [place] [address]- 6537 Apr, [facility] [place] [facility] [address] [id number] [place]33 Mar, [facility] [place] [facility] [address] [id number] [place] [address]- 1544 Mar, [facility] [place] [facility] [address] [id number] [place] [address]- 0982 19 Mar, 2014 [facility] [place] [facility] [address] [id number] [place] [address]- 3286 Mar, [facility] [place] [facility] [address] [id number] [place] 8176 Sep, [facility] [place] [facility] [address] [id number] [place] [address]- 8306 Sep, [facility] [place] [facility] [address] [id number] [place] [address]- 0046 Sep, [facility] [place] [facility] [address] [id number] [place] [address]- 3911 Sep, [facility] [place] [facility] [address] [id number] [place] [address]- 2912 Aug, [facility] [place] [facility] [address] [id number] [place] [address]- 1307 Aug, [facility] [place] [facility] [address] [id number] [place] [address]- 9828 Aug, [facility] [place] [facility] [address] [id number] [place] [address]- 0676 Aug, [facility] [place] [facility] [address] [facility] [id number] [place] [address]- 0118 Aug, [facility] [place] [facility] [address] [id number] [place] [address]- 2567 Aug, [facility] [place] [facility] [address] [id number] [place] [address]- 2973 Jul, [facility] [place] [facility] [address] [id number] [place] [address]- 3765 Jul, [facility] [place] [facility] [address] [facility] [id number] [place] [address]- 8346 Jul, [facility] [place] [facility] [address] [id number], [place] [address]- 8603 Jul, [facility] [place] [facility] [address] [id number] [place] [address]- 4527 Jun, [facility] [place] [facility] [address] [id number] [place] [address]- 1316 Jun, [facility] [place] [facility] [address] [id number] [place] [address]- 2546 May, [facility] [place] [facility] [address] [id number] [place] [address]- 2541 May, [facility] [place] [facility] [address] [id number] [place] [address]- 7953 Apr, [facility] [place] [facility] [address] [id number] [place] [address]- 8666 Apr, [facility] [place] [facility] [address] [id number] [place] [address]- 1837 Apr, [facility] [place] [facility] [address] [id number], [place] [address]- 5574 Mar, [facility] [place] [facility] [address] [id number] [place] [address]- 6608 Mar, [facility] [place] [facility] [address] [id number] [place] [address]- 7353 Mar, [facility] [place] [facility] [address] [id number], [place] [address]- 2546 Mar, [facility] [place] [facility] [address] [id number], [place] [address]- 2540 Feb, [facility] [place] [facility] [address] [id number] [place] [address]- 2546 Jan, [facility] [place] [facility] [address] [id number] [place] [address]- 2546 Jan, [facility] [place] [facility] [address] [id number] [place] [address]- 2546 Jan, [facility] [place] [facility] [address] [id number] [place] [address]- 9281 Jan, [facility] [address] [id number] [place] [address]- 6841 Dec, [facility] [place] [facility] [address] [id number] [place] [address]- 0035 Dec, [facility] [address] [id number] [place] [address]- 9158 Dec, [facility] [place] [facility] [address] [id number] [place] [address]- 0357 Dec, [facility] [address] [id number] [place] [address]- 9898 Dec, [facility] [address] [id number] [place] [address]- 0243 Dec, [facility] [address] [id number] [place] [address]- 9052 November, [facility] [address] [id number] [place] [address]- 9421 November, [facility] [address] [id number] [place] [address]- 2675 November, [facility] [address] [id number] [place] [address]- 7268 Oct, [facility] [place] [facility] [address] [id number] [place] [address]- 0582 Oct, [facility] [place] [facility] [address] [id number] [place] [address]- 8534 Sep, [facility] [place] [facility] [address] [id number] [place] [address]- 7705 Sep, [facility] [place] [facility] [address] [id number] [place] [address]- 7917 Sep, [facility] [place] [facility] [address] [id number] [place] [address]- 1901 Sep, [facility] [place] [facility] [address] [id number] [place] [address]- 7949 Sep, [facility] [place] [facility] [address] [id number] [place] [address]- 0807 Aug, [facility] [place] [facility] [address] [id number] [place] [address]- 0227 Aug, [facility] [place] [facility] [address] [id number] [place] [address]- 2197 Aug, [facility] [address] [id number] [place] [address]- 7305 Aug, [facility] [place] [facility] [address] [id number] [place] [address]- 1589 Aug, [facility] [address] [id number] [place] [address]- 1393 Jul, [facility] [address] [id number] [place] [address]- 4724 Jul, [facility] [place] [facility] [address] [id number] [place] [address]- 6119 Jun, [facility] [place] [facility] [address] [id number] [place] [address]- 8957 Jun, [facility] [place] [facility] [address] [id number] [place] [address]- 9430 18 Jun, 2012 [facility] [place] [facility] [address] [id number] [place] [address]- 6452 18 Jun, 2012 [facility] [place] [facility] [address] [id number] [place] [address]- 3859 10 Jun, 2012 [facility] [place] [facility] [address] [id number] [place] [address]- 0519 Jun, [facility] [place] [facility] [address] [id number] [place] [address]- 0784 07 Jun, 2012 [facility] [place] [facility] [address] [id number] [place] [address]- 5961 Jun, [facility] [place] [facility] [address] [id number] [place] [address]- 3407 Jun, [facility] [place] [facility] [address] [id number] [place] [address]- 1487 May, [facility] [place] [facility] [address] [id number] [place] [address]- 2071 May, [facility] [place] [facility] [address] [id number] [place] [address]- 9985 May, [facility] [place] [facility] [address] [id number] [place] [address]- 4738 May, [facility] [place] [facility] [address] [id number] [place] [address]- 4912 May, [facility] [place] [facility] [address] [id number] [place] [address]- 8722 May, [facility] [place] [facility] [address] [id number] [place] [address]- 1108 May, [facility] [place] [facility] [address] [id number] [place] [address]- 7391 Apr, [facility] [place] [facility] [address] [id number] [place] [address]- 1390 Mar, [facility] [place] [facility] [address] [id number] [place] [address]- 1955 Mar, [facility] [place] [facility] [address] [id number] [place] [address]- 8125 Feb, [facility] [place] [facility] [address] [id number] [place] [address]- 0824 Feb, [facility] [place] [facility] [address] [id number] [place] [address]- 4626 Feb, [facility] [place] [facility] [address] [id number] [place] [address]- 9220 Feb, [facility] [place] [facility] [address] [id number] [place] [address]- 2630 31 Jan, 2012 [facility] [place] [facility] [address] [id number] [place] [address]- 4145 Jan, [facility] [place] [facility] [address] [id number] [place] [address]- 1546 Jan, [facility] [place] [facility] [address] [id number] [place] [address]- 3321 Jan, [facility] [place] [facility] [address] [id number] [place] [address]- 2657 Dec, [facility] [place] [facility] [address] [id number] [place] [address]- 6012 Dec, [facility] [place] [facility] [address] [id number] [place] [address] Dec, [facility] [place] [facility] [address] [id number] [place] [address] Dec, [facility] [place] [facility] [address] [id number] [place] [address] Dec, [facility] [place] [facility] [address] [id number] [place] [address] Sep, [facility] [place] [facility] [address] [id number] [place] [address] Aug, [facility] [place] [facility] [address] [id number] [place] [address] Jul, [facility] [place] [facility] [address] [id number] [place] [address] Jun, [facility] [place] [facility] [address] [id number] [place] [address] Jun, [facility] [place] [facility] [address] [id number] [place] [address] Jun, [facility] [place] [facility] [address] [id number], [place] [address] Jun, [facility] [address] [facility] [id number], [place] [address] May, [facility] [address] [facility] [id number], [place] [address] May, [facility] [address] [facility] [id number], [place] [address] Apr, [facility] [address] [facility] [id number], [place] [address] Jun, [facility] [address] [facility] [id number], [place] [address] Apr, IMMUNIZATIONS No Known Immunizations SOCIAL HISTORY Never Assessed REASON FOR VISIT cough Pt c/o sinus congestion, pressure and headaches for a couple of weeks, states she has recently been treated with keiry Biswas MA PLAN OF CARE Activity Details Follow Up prn Reason: VITAL SIGNS Height 66 in 2017-07-19 Weight 240.6 lbs 2017-07-19 Temperature 97.8 degrees Fahrenheit 2017-07-19 Heart Rate 112 bpm 2017-07-19 Respiratory Rate 24 2017-07-19 BMI 38.83 kg/m2 2017-07-19 Blood pressure systolic 140 mmHg 2017-07-19 Blood pressure diastolic 78 mmHg 2017-07-19 MEDICATIONS Medication Instructions Dosage Frequency Start Date End Date Duration Status Fish Oil 1000 MG Orally Once a day 2 capsule 24h 90 days Active ProAir HFA 108 (90 Base) MCG/ACT Inhalation every 4 hrs 2 puffs as needed 4h 12 months Active Pepcid 20 mg Orally 1 TAB orally 2 times a day 1 tablet by Oral route 2 times per day Sep, 90 days Active Ipratropium-Albuterol 0.5 mg-3 mg(2.5 mg base)/3 mL Inhalation Four times a day & prn up to 6 doses 3 ml Jul, 30 days Active Levothyroxine Sodium 175 MCG Orally Once a day TAKE ONE TABLET BY MOUTH IN THE MORNING ON AN EMPTY STOMACH WITH A FULL GLASS OF WATER 24h 90 Active Ferrous Sulfate 325 (65 Fe) MG TAKE ONE TABLET BY MOUTH ONCE DAILY 30 Active Famotidine 20 mg Orally Twice a day TAKE ONE TABLET BY MOUTH TWICE DAILY 12h 90 days Active Potassium Chloride Windy ER 10 MEQ TAKE ONE TABLET BY MOUTH ONCE DAILY 90 Active Augmentin 875-125 MG Orally every 12 hrs 1 tablet 12h Jun, 8 Jul, 2017 10 day(s) Active Montelukast Sodium 10 mg Orally Once a day TAKE ONE TABLET BY MOUTH ONCE DAILY 24h 90 days Active Advair Diskus 250-50 MCG/DOSE Inhalation Twice a day INHALE ONE PUFF BY MOUTH TWICE DAILY APPROXIMATELY 12 HOURS APART 12h 12 months Active GlipiZIDE 5 mg Orally 2 times a day 1 tablet 12h 90 days Active Flonase 50 mcg/actuation Nasally 2 spray(s) intranasally 2 times a day 1 sprays by Nasal route 2 times per day in each nostril Jun, Active Metformin HCl 500 mg Orally 2 times a day TAKE ONE TABLET BY MOUTH TWICE DAILY WITH MEALS 12h 90 Active Norvasc 10 mg Orally Once a day 1 tablet 1 time per day 24h 90 days Active Oxygen Active VESIcare 5 mg Orally Once a day TAKE ONE TABLET BY MOUTH ONCE DAILY 24h 90 days Active Loratadine 10 mg Orally Once a day 1 tablet 24h November, 90 days Active Spiriva HandiHaler 18 MCG Inhalation Once a day 1 capsule 24h 25 Feb, 2023 12 months Active Lisinopril 2.5 MG Orally Once a day TAKE ONE TABLET BY MOUTH ONCE DAILY 24h 90 days Active Albuterol Sulfate 2.5 mg /3 mL (0.083 %) Inhalation 4 times a day 1 Each by Inhalation route 4 times a day PRN for cough and wheeze 6h Sep, 30 days Active Nystatin-Triamcinolone 863662-5.1 UNIT/GM Externally Twice a day apply thin layer to rash twice a day 12h 23 Dec, 2015 Active Lipitor 20 mg Orally Once a day 1/2 tablet 24h Active Paroxetine HCl 40 mg Orally Once a day 1 tablet in the morning 24h 90 days Active Furosemide 40 MG TAKE [...]
--- OUTSIDE RECORDS SUMMARY | 2018-10-30 20:43 | XMS REPORT | Continuity of Care Document ---
Author Organization Unknown Address Unknown Allergies Active Description Code Type Severity Reaction Onset Reported/Identified Relationship to Patient Clinical Status Yes NKANo Known Allergies NKA Miscellaneous Allergy Mild N/A 05/01/2009 Yes Bactrim Drug Allergy N/A N/A 01/16/2013 Medications There is no data. Problems Date Dx Coded Attending Type Code Diagnosis Diagnosed By 08/26/2008 BLAIR DO, VÍCTOR K 401.1 ESSENTIAL [...] APRNRICIA R 401.1 ESSENTIAL HYPERTENSION BENIGN 08/26/2008 BEVERLY FALCON APRNRICIA R 599.0 Urinary Tract Infection 08/26/2008 BLAIR [...] FALCON APRNIA R 296.90 MOOD DISORDER 04/18/2010 GARRETT FALCON APRNIA R 465.9 Upper Respiratory Infection 04/18/2010 JOEL FALCON APRN Josh 786.2 Cough 04/18/2010 244.9 HYPOTHYROIDISM 04/18/2010 296.90 [...] VÍCTOR K 244.9 HYPOTHYROIDISM 04/18/2010 BLAIR DO, VÍTCOR K 296.90 MOOD DISORDER 04/18/2010 BLAIR DO, [...] DO, VÍCTOR K 786.2 Cough 04/18/2010 FALCON SOLE ASSESSOR, JOEL R 244.9 HYPOTHYROIDISM 04/18/2010 FALCON SOLE ASSESSOR, JOEL R 296.90 MOOD DISORDER 04/18/2010 FALCON SOLE ASSESSOR, JOEL R 465.9 Upper Respiratory Infection 04/18/2010 FALCON SOLE ASSESSOR, JOEL R 786.2 Cough 04/18/2010 BLAIR DO, [...] 04/18/2010 BLAIR DO, VÍCTOR K 786.2 Cough 07/12/2010 Ot 244.9 07/12/2010 Ot 276.7 07/12/2010 Ot 305.1 07/12/2010 Ot 311 07/12/2010 Ot 401.9 07/12/2010 Ot 427.89 07/12/2010 Ot 486 07/12/2010 Ot 491.21 07/12/2010 Ot 518.81 07/12/2010 Ot 584.9 07/12/2010 Ot V45.79 07/26/2010 BLAIR DO, VÍCTOR K 276.8 Hypopotassemia 07/26/2010 BLAIR DO, ÍVCTOR K 496 COPD 07/26/2010 BLAIR DO, VÍCTOR K 585.9 CHRONIC KIDNEY DISEASE, UNSPECIFIED 07/26/2010 BLAIR DO, VÍCTOR K 790.4 Abnormal Liver Function Test 07/26/2010 BLAIR DO, VÍCTOR K 276.8 Hypopotassemia 07/26/2010 BLAIR DO, VÍCTOR K 496 COPD 07/26/2010 BLAIR DO, VÍCTOR K 585.9 CHRONIC KIDNEY DISEASE, UNSPECIFIED 07/26/2010 BLAIR DO, VÍCTOR K 790.4 Abnormal Liver Function Test 07/26/2010 GARRETT FALCON APRNIA R 276.8 Hypopotassemia 07/26/2010 GARRETT FALCON APRNIA R 496 COPD 07/26/2010 GARRETT FALCON APRNIA R 585.9 CHRONIC KIDNEY DISEASE, UNSPECIFIED 07/26/2010 [...] 790.4 Abnormal Liver Function Test 07/26/2010 BLAIR DO VÍCTOR K 276.8 Hypopotassemia 07/26/2010 BLAIR DO, [...] VÍCTOR K 276.8 Hypopotassemia 07/26/2010 BLAIR DO, VCÍTOR K 496 COPD 07/26/2010 BLAIR DO, VÍCTOR K 585.9 CHRONIC RENAL FAILURE 07/26/2010 BLAIR DO, VÍCTOR K 790.4 Abnormal Liver Function Test 07/26/2010 BLAIR DO, VÍCTOR K 276.8 Hypopotassemia 07/26/2010 BLAIR DO, VÍCTOR K 496 COPD 07/26/2010 BLAIR DO, VÍCTOR K 585.9 CHRONIC RENAL FAILURE 07/26/2010 BLAIR DO, VÍCTOR K 790.4 Abnormal Liver Function Test 07/26/2010 TERRIE LIMANBEVERLYJOEL R 276.8 Hypopotassemia 07/26/2010 FALCON SOLE ASSESSOR, JOEL R 496 COPD 07/26/2010 FALCON SOLE ASSESSOR, JOEL R 585.9 CHRONIC RENAL FAILURE 07/26/2010 TERRIE SOLE ASSESSOR, JOEL R 790.4 Abnormal Liver Function Test [...] K V65.42 COUNSELING - SMOKING CESSATION 06/25/2011 TERRIE SOLE ASSESSOR, JOEL R 461.9 Sinusitis Acute 06/25/2011 TERRIE SOLE ASSESSOR, JOEL R V65.42 COUNSELING - SMOKING CESSATION 06/25/2011 [...] BLAIR DO, VÍCTOR K 272.4 HYPERLIPIDEMIA 07/06/2011 GARRETT FALCON APRNIA R 250.02 DIABETES II UNCONTROLLED (UNCOMPLICATED) 07/06/2011 [...] BLAIR DO, VÍCTOR K 272.4 HYPERLIPIDEMIA 07/06/2011 GARRETT FALCON APRNIA R 250.02 DIABETES MELLITUS TYPE 2 - UNCOMPLICATED, UNCONTROLLED 07/06/2011 BEVERLY FALCON APRNRICIA R 272.4 HYPERLIPIDEMIA 07/06/2011 BLAIR DO, VCÍTOR K 250.02 DIABETES MELLITUS TYPE 2 - [...] UPPER RESPIRATORY INFECTION 2012 JOEL FALCON APRN 465.9 UPPER RESPIRATORY INFECTION 2012 BLAIR DO, [...] K 780.52 insomnia 10/06/2012 JOEL FALCON APRN 780.52 insomnia 10/06/2012 BLAIR DO, VÍCTOR K 780.52 insomnia 10/06/2012 BLAIR DO, VÍCTOR K 780.52 insomnia 10/06/2012 BLAIR DO, VÍCTOR K 780.52 insomnia 10/06/2012 BLAIR DO, VÍCTOR K 780.52 insomnia 10/06/2012 BLAIR DO, VÍCTOR K 780.52 insomnia 01/07/2013 BRITTANI NAIR, DEWAYNE K Ot 682.3 CELLULITIS OF ARM 01/07/2013 BRITTANI NAIR, DEWAYNE Anthony Ot 709.9 SKIN DISORDER NOS 01/07/2013 BRITTANI NAIRDEWAYNE Ot V03.7 TETANUS TOXOID INOCULAT 01/08/2013 914.4 INSECT BITE 01/08/2013 BLAIR DO, [...] TREATMENT PRESENTING HAZARDS TO HEALTH 04/01/2013 ROSSY NAIR, VÍCTOR K V15.09 PERSONAL HISTORY OF OTHER ALLERGY OTHER THAN TO MEDICINAL AGENTS 04/01/2013 ROSSY NAIR, VÍCTOR K V15.81 PERSONAL HISTORY OF NONCOMPLIANCE WITH MEDICAL TREATMENT PRESENTING HAZARDS TO HEALTH 04/01/2013 ROSSY NAIR, VÍCTOR K V15.09 PERSONAL HISTORY OF OTHER ALLERGY OTHER THAN TO MEDICINAL AGENTS 04/01/2013 ROSSY NAIR, VÍCTOR K V15.81 PERSONAL HISTORY OF NONCOMPLIANCE [...] MEDICAL TREATMENT PRESENTING HAZARDS TO HEALTH 04/01/2013 JUANA BLAIR DOA K V15.09 PERSONAL HISTORY OF OTHER ALLERGY OTHER THAN TO MEDICINAL AGENTS 04/01/2013 VÍCTOR BLAIR DO K V15.81 PERSONAL HISTORY OF NONCOMPLIANCE WITH MEDICAL TREATMENT PRESENTING HAZARDS TO HEALTH 04/01/2013 JOEL FALCON APRN R V15.09 PERSONAL HISTORY OF OTHER ALLERGY OTHER THAN TO MEDICINAL AGENTS 04/01/2013 JOEL FALCON APRN V15.81 PERSONAL HISTORY OF NONCOMPLIANCE WITH MEDICAL TREATMENT PRESENTING HAZARDS TO HEALTH 04/01/2013 ROSSY NAIR VÍCTOR K V15.09 PERSONAL HISTORY OF OTHER ALLERGY OTHER THAN TO MEDICINAL AGENTS 04/01/2013 JUANA BLAIR DOA K V15.81 PERSONAL HISTORY OF NONCOMPLIANCE WITH MEDICAL TREATMENT PRESENTING HAZARDS TO HEALTH 04/01/2013 JUANA BLAIR DOA K V15.09 PERSONAL HISTORY OF OTHER ALLERGY [...] K 780.57 UNSPECIFIED SLEEP APNEA 08/30/2014 BLAIR DO, VÍCTOR K V04.81 FLU SHOT 08/30/2014 BLAIR DO, VÍCTOR K V04.81 FLU SHOT 08/30/2014 Ot 786.05 09/13/2014 Ot 786.05 09/13/2014 Ot 786.05 10/18/2014 Ot 278.00 10/18/2014 Ot 296.90 10/18/2014 Ot 305.1 10/18/2014 Ot 496 10/18/2014 Ot 780.54 10/18/2014 Ot 786.09 11/05/2014 VÍCTOR BLAIR DO 788.30 URINARY INCONTINENCE UNSPECIFIED 11/25/2017 Ot 278.00 OBESITY, NOS 11/25/2017 Ot 296.90 UNSPECIFIED EPISODIC MOOD DISORDER 11/25/2017 Ot 305.1 TOBACCO USE DISORDER 11/25/2017 Ot 496 CHR AIRWAY OBSTRUCT NEC 11/25/2017 Ot 780.54 HYPERSOMNIA , UNSPECIFIED 11/25/2017 Ot 786.09 RESPIRATORY ABNORM NEC 11/26/2017 NORMAN ALY MD Ot E03.9 HYPOTHYROIDISM, UNSPECIFIED 11/26/2017 NORMAN ALY MD Ot E11.9 TYPE 2 DIABETES MELLITUS WITHOUT COMPLIC 11/26/2017 NORMAN ALY MD Ot F32.9 MAJOR DEPRESSIVE DISORDER, SINGLE EPISOD 11/26/2017 NORMAN ALY MD Ot F41.9 ANXIETY DISORDER, UNSPECIFIED 11/26/2017 NORMAN ALY MD Ot J44.1 CHRONIC OBSTRUCTIVE PULMONARY DISEASE W 11/26/2017 NORMAN ALY MD Ot R06.03 ACUTE RESPIRATORY DISTRESS 11/26/2017 NORMAN ALY MD Ot Z99.81 DEPENDENCE ON SUPPLEMENTAL OXYGEN 11/27/2017 NORMAN ALY MD Ot E03.9 HYPOTHYROIDISM, UNSPECIFIED 11/27/2017 NORMAN ALY MD Ot E11.9 TYPE 2 DIABETES MELLITUS WITHOUT COMPLIC 11/27/2017 NORMAN ALY MD Ot F32.9 MAJOR DEPRESSIVE DISORDER, SINGLE EPISOD 11/27/2017 NORMAN ALY MD Ot F41.9 ANXIETY DISORDER, UNSPECIFIED 11/27/2017 NORMAN ALY MD Ot J44.1 CHRONIC OBSTRUCTIVE PULMONARY DISEASE W 11/27/2017 NORMAN ALY MD Ot R06.03 ACUTE RESPIRATORY DISTRESS 11/27/2017 NORMAN ALY MD R Ot Z99.81 DEPENDENCE ON SUPPLEMENTAL OXYGEN 11/27/2017 NORMAN ALY MD Ot E03.9 HYPOTHYROIDISM, UNSPECIFIED 11/27/2017 NORMAN ALY MD Ot E11.9 TYPE 2 DIABETES MELLITUS WITHOUT COMPLIC 11/27/2017 NORMAN ALY MD Ot F17.210 NICOTINE DEPENDENCE, CIGARETTES, UNCOMPL 11/27/2017 NORMAN ALY MD Ot F32.9 MAJOR DEPRESSIVE DISORDER, SINGLE EPISOD 11/27/2017 NORMAN ALY MD Ot F41.9 ANXIETY DISORDER, UNSPECIFIED 11/27/2017 NORMAN ALY MD Ot G47.33 OBSTRUCTIVE SLEEP APNEA (ADULT) (PEDIATR 11/27/2017 NORMAN ALY MD Ot I10 ESSENTIAL (PRIMARY) HYPERTENSION 11/27/2017 NORMAN ALY MD Ot J44.1 CHRONIC OBSTRUCTIVE PULMONARY DISEASE W 11/27/2017 NORMAN ALY MD Ot J96.21 ACUTE AND CHRONIC RESPIRATORY FAILURE [place] 11/27/2017 NORMAN ALY MD Ot R06.03 ACUTE RESPIRATORY DISTRESS 11/27/2017 NORMAN ALY MD Ot Z99.81 DEPENDENCE ON SUPPLEMENTAL OXYGEN 09/22/2018 Ot 278.00 OBESITY, NOS 09/22/2018 Ot 296.90 UNSPECIFIED EPISODIC MOOD DISORDER 09/22/2018 Ot 305.1 TOBACCO USE DISORDER 09/22/2018 Ot 496 CHR AIRWAY OBSTRUCT NEC 09/22/2018 Ot 780.54 HYPERSOMNIA , UNSPECIFIED 09/22/2018 Ot 786.09 RESPIRATORY ABNORM NEC 09/22/2018 AJ WETZEL MD Ot E03.9 HYPOTHYROIDISM, UNSPECIFIED 09/22/2018 AJ WETZEL MD Ot E11.9 TYPE 2 DIABETES MELLITUS WITHOUT COMPLIC 09/22/2018 AJ WETZEL MD Ot F17.210 NICOTINE DEPENDENCE, CIGARETTES, UNCOMPL 09/22/2018 AJ WETZEL MD Ot F32.9 MAJOR DEPRESSIVE DISORDER, SINGLE EPISOD 09/22/2018 AJ WETZEL MD Ot F41.9 ANXIETY DISORDER, UNSPECIFIED 09/22/2018 AJ WETZEL MD Ot J18.1 LOBAR PNEUMONIA, UNSPECIFIED ORGANISM 09/22/2018 AJ WETZEL MD Ot J44.1 CHRONIC OBSTRUCTIVE PULMONARY DISEASE W 09/22/2018 AJ WETZEL MD Ot J96.21 ACUTE AND CHRONIC RESPIRATORY FAILURE [place] 09/22/2018 AJ WETZEL MD Ot R06.02 SHORTNESS OF BREATH 09/22/2018 AJ WETZEL MD Ot Z79.51 JAIL (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 OF INHALED STERO 09/22/2018 AJ WETZEL MD Ot Z79.52 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 OPERATOR LOCK TENDER (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 OF SYSTEMIC STER 09/22/2018 AJ WETZEL MD Ot Z79.84 JAIL (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 OF ORAL HYPOGLYC 09/24/2018 AJ WETZEL MD Ot E03.9 HYPOTHYROIDISM, UNSPECIFIED 09/24/2018 AJ WETZEL MD Ot E11.9 TYPE 2 DIABETES MELLITUS WITHOUT COMPLIC 09/24/2018 AJ WETZEL MD Ot F17.210 NICOTINE DEPENDENCE, CIGARETTES, UNCOMPL 09/24/2018 AJ WETZEL MD Ot F32.9 MAJOR DEPRESSIVE DISORDER, SINGLE EPISOD 09/24/2018 AJ WETZEL MD Ot F41.9 ANXIETY DISORDER, UNSPECIFIED 09/24/2018 AJ WETZEL MD Ot J18.1 LOBAR PNEUMONIA, UNSPECIFIED ORGANISM 09/24/2018 AJ WETZEL MD Ot J44.1 CHRONIC OBSTRUCTIVE PULMONARY DISEASE W 09/24/2018 AJ WETZEL MD Ot J96.21 ACUTE AND CHRONIC RESPIRATORY FAILURE [place] 09/24/2018 AJ WETZEL MD Ot R06.02 SHORTNESS OF BREATH 09/24/2018 AJ WETZEL MD Ot Z79.51 JAIL (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 OF INHALED STERO 09/24/2018 AJ WETZEL MD Ot Z79.52 JAIL (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 OF SYSTEMIC STER 09/24/2018 AJ WETZEL MD Ot Z79.84 JAIL (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 OF ORAL HYPOGLYC Procedures Code Description [place] [address] ROUTINE VENIPUNCTURE 06/09/2012 75861 A1C (IN-HOUSE) 06/09/2012 08280 CMP 06/09/2012 88413 TSH 06/09/2012 29390 CBC 06/09/2012 14744 ROUTINE VENIPUNCTURE 10/06/2012 81674 A1C (IN-HOUSE) 10/06/2012 43502 CMP 10/06/2012 11413 TSH 10/06/2012 82234 ROUTINE VENIPUNCTURE 04/01/2013 26767 A1C (IN-HOUSE) 04/01/2013 59548 LIPID PANEL 04/01/2013 39692 CMP 04/01/2013 5396723 GFR CALC (RESULT ONLY) 04/01/2013 01533 TSH 04/01/2013 97897 ROUTINE VENIPUNCTURE 10/01/2013 52605 CMP 10/01/2013 31907 LIPID PANEL 10/01/2013 68119 TSH 10/01/2013 20041 A1C (IN-HOUSE) 10/01/2013 85109 MICRO ALBUMIN-IN HOUSE 10/01/2013 87279 ROUTINE VENIPUNCTURE 05/03/2014 35779 [facility] 05/03/2014 99489 LIPID PANEL 05/03/2014 79537 TSH 05/03/2014 16273 A1C (IN-HOUSE) 05/03/2014 2028F FOOT EXAM PERFORMED 05/03/2014 85080 OXIMETRY 07/26/2014 08034 XRAY CHEST 2 VIEW 07/28/2014 57717 OXIMETRY 07/28/2014 85541 OXIMETRY 07/30/2014 WESLEY LEBLANC 07/30/2014 71894 TSH 11/05/2014 25872 ROUTINE VENIPUNCTURE 11/05/2014 59583 MICRO ALBUMIN-IN HOUSE 11/05/2014 76916 A1C (IN-HOUSE) 11/05/20140119622 GFR CALC (RESULT ONLY) 11/05/2014 02533 [facility] 11/05/2014 Results Test Result Range [facility] - 03/15/17 09:41 Glucose, Serum 186 mg/dL [...] - 05/28/17 17:04 TSH 1.56 mIU/L NRG Complete blood count (CBC) with automated white blood cell (WBC) differential - 11/25/17 17:30 Blood leukocytes automated count (number/volume) 9.0 10*3/uL 4.3-11.0 Blood erythrocytes automated count (number/volume) 4.66 10*6/uL 4.35-5.85 Venous blood hemoglobin measurement (mass/volume) 14.6 g/dL 11.5-16.0 Blood hematocrit (volume fraction) 46 % 35-52 Automated erythrocyte mean corpuscular volume 98 [foz_us] 80-99 Automated erythrocyte mean corpuscular hemoglobin (mass per erythrocyte) 31 pg 25-34 Automated erythrocyte mean corpuscular hemoglobin concentration measurement ( mass/volume) 32 g/dL 32-36 Automated erythrocyte distribution width ratio 14.7 % 10.0-14.5 Automated blood platelet count (count/volume) 206 10*3/uL 130-400 Automated blood platelet mean volume measurement 9.2 [foz_us] 7.4-10.4 Automated blood neutrophils/100 leukocytes 74 % 42-75 Automated blood lymphocytes/100 leukocytes 20 % 12-44 Blood monocytes/100 leukocytes 5 % 0-12 Automated blood eosinophils/100 leukocytes 1 % 0-10 Automated blood basophils/100 leukocytes 0 % 0-10 Blood neutrophils automated count (number/volume) 6.7 10*3 1.8-7.8 Blood lymphocytes automated count (number/volume) 1.8 10*3 1.0-4.0 Blood monocytes automated count (number/volume) 0.5 10*3 0.0-1.0 Automated eosinophil count 0.1 10*3/uL 0.0-0.3 Automated blood basophil count (count/volume) 0.0 10*3/uL 0.0-0.1 Comprehensive metabolic panel - 11/25/17 17:30 Serum or plasma sodium measurement (moles/volume) 138 mmol/L 135-145 Serum or plasma potassium measurement (moles/volume) 4.2 mmol/L 3.6-5.0 Serum or plasma chloride measurement (moles/volume) 96 mmol/L 98-107 Carbon dioxide 32 mmol/L 21-32 Serum or plasma anion gap determination (moles/volume) 10 mmol/L 5-14 Serum or plasma urea nitrogen measurement (mass/volume) 8 mg/dL 7-18 Serum or plasma creatinine measurement (mass/volume) 0.91 mg/dL 0.60-1.30 Serum or plasma urea nitrogen/creatinine mass ratio 9 NRG Serum or plasma creatinine measurement with calculation of estimated glomerular filtration rate > NRG Serum or plasma glucose measurement (mass/volume) 232 mg/dL 70-105 Serum or plasma calcium measurement (mass/volume) 10.3 mg/dL 8.5-10.1 Serum or plasma total bilirubin measurement (mass/volume) 0.4 mg/dL 0.1-1.0 Serum or plasma alkaline phosphatase measurement (enzymatic activity/volume) 115 U/L 40-136 Serum or plasma aspartate aminotransferase measurement (enzymatic activity/ volume) 11 U/L 5-34 Serum or plasma alanine aminotransferase measurement (enzymatic activity/volume ) 9 U/L 0-55 Serum or plasma protein measurement (mass/volume) 8.2 g/dL 6.4-8.2 Serum or plasma albumin measurement (mass/volume) 3.9 g/dL 3.2-4.5 Blood lactic acid measurement (moles/volume) - 11/25/17 17:30 Blood lactic acid measurement (moles/volume) 2.59 mmol/L 0.50-2.00 Serum or plasma troponin i.cardiac measurement (mass/volume) - 11/25/17 17:30 Serum or plasma troponin i.cardiac measurement (mass/volume) < ng/ mL <0.30 Bacterial blood culture - 11/25/17 17:30 Bacterial blood culture NG NRG Influenza virus A and B antigen detection - 11/25/17 17:41 FLU RESULT NEGATIVE FOR INFLUENZA A AND B ANTIGENS BY IA NRG Arterial blood gas measurement - 11/25/17 17:44 Blood pCO2 62 mm[Hg] 35-45 Blood pO2 86 mm[Hg] 79-93 Arterial blood bicarbonate measurement (moles/volume) 35 mmol/L 23-27 Arterial blood base excess by calculation 9.6 mmol/L -2.5 -2.5 Arterial blood oxygen saturation measurement 99 % 94-100 * Inhaled oxygen flow rate 40% NRG Arterial blood pH measurement with patient temperature correction 7.37 7.37-7.43 Arterial blood carbon dioxide, total measurement (moles/volume) 37.0 mmol/L 21.0-31.0 Body site RT RADIAL NRG Assessment of wrist artery patency prior to arterial puncture YES- POS NRG Setting of ventilation mode NO NRG Measurement of body temperature 98.0 NRG Bacterial blood culture - 11/25/17 18:20 Bacterial blood culture NG NRG Methicillin resistant Staphylococcus aureus (MRSA) screening culture - 19:10 Methicillin resistant Staphylococcus aureus (MRSA) screening culture NEG NRG Serum or plasma lactate measurement (moles/volume) - 11/25/17 19:35 Serum or plasma lactate measurement (moles/volume) 1.10 mmol/L 0.50-2.00 Sputum Gram stain - 11/25/17 21:00 Sputum Gram stain coccobacilli NRG Bacterial sputum culture - 11/25/17 21:00 FREE TEXT EXTERNAL SENSITIVITY REPORTED 11/27 15:35 NRG QUANTITY OF GROWTH Scant Growth NR FREE TEXT ENTRY 3 PLUS NORMAL DEMARCO NRG Bacterial sputum culture [id number] [facility] Bacterial susceptibility panel - 11/25/17 21:00 Oxacillin susceptibility test by minimum inhibitory concentration < = NRG Gentamicin susceptibility test by minimum inhibitory concentration < = NRG Clindamycin susceptibility test by minimum inhibitory concentration <= NRG Erythromycin susceptibility test by minimum inhibitory concentration <= NRG Trimethoprim/sulfamethoxazole susceptibility test by minimum inhibitoryconcentration S NRG Vancomycin susceptibility test by minimum inhibitory concentration < = NRG Levofloxacin susceptibility test by minimum inhibitory concentration 0.5 NRG Rifampin susceptibility test by minimum inhibitory concentration <= NRG Tetracycline susceptibility test by minimum inhibitory concentration <= NRG Capillary blood glucose measurement by glucometer (mass/volume) - 11/25/17 21: 03 Capillary blood glucose measurement by glucometer (mass/volume) 259 mg/dL 70-110 Complete blood count (CBC) with automated white blood cell (WBC) differential - 11/26/17 02:58 Blood leukocytes automated count (number/volume) 7.6 10*3/uL 4.3-11.0 Blood erythrocytes automated count (number/volume) 4.46 10*6/uL 4.35-5.85 Venous blood hemoglobin measurement (mass/volume) 14.2 g/dL 11.5-16.0 Blood hematocrit (volume fraction) 45 % 35-52 Automated erythrocyte mean corpuscular volume 100 [foz_us] 80-99 Automated erythrocyte mean corpuscular hemoglobin (mass per erythrocyte) 32 pg 25-34 Automated erythrocyte mean corpuscular hemoglobin concentration measurement ( mass/volume) 32 g/dL 32-36 Automated erythrocyte distribution width ratio 14.8 % 10.0-14.5 Automated blood platelet count (count/volume) 207 10*3/uL 130-400 Automated blood platelet mean volume measurement 9.4 [foz_us] 7.4-10.4 Automated blood neutrophils/100 leukocytes 92 % 42-75 Automated blood lymphocytes/100 leukocytes 7 % 12-44 Blood monocytes/100 leukocytes 0 % 0-12 Automated blood eosinophils/100 leukocytes 0 % 0-10 Automated blood basophils/100 leukocytes 0 % 0-10 Blood neutrophils automated count (number/volume) 7.0 10*3 1.8-7.8 Blood lymphocytes automated count (number/volume) 0.6 10*3 1.0-4.0 Blood monocytes automated count (number/volume) 0.0 10*3 0.0-1.0 Automated eosinophil count 0.0 10*3/uL 0.0-0.3 Automated blood basophil count (count/volume) 0.0 10*3/uL 0.0-0.1 Serum or plasma phosphate measurement (mass/volume) - 11/26/17 02:58 Serum or plasma phosphate measurement (mass/volume) 3.7 mg/dL 2.3-4.7 Magnesium - 11/26/17 02:58 Magnesium 2.4 mg/dL 1.8-2.4 Comprehensive metabolic panel - 11/26/17 02:58 Serum or plasma sodium measurement (moles/volume) 138 mmol/L 135-145 Serum or plasma potassium measurement (moles/volume) 4.7 mmol/L 3.6-5.0 Serum or plasma chloride measurement (moles/volume) 96 mmol/L 98-107 Carbon dioxide 33 mmol/L 21-32 Serum or plasma anion gap determination (moles/volume) 9 mmol/L 5-14 Serum or plasma urea nitrogen measurement (mass/volume) 11 mg/dL 7-18 Serum or plasma creatinine measurement (mass/volume) 1.03 mg/dL 0.60-1.30 Serum or plasma urea nitrogen/creatinine mass ratio 11 NRG Serum or plasma creatinine measurement with calculation of estimated glomerular filtration rate 56 NRG Serum or plasma glucose measurement (mass/volume) 321 mg/dL 70-105 Serum or plasma calcium measurement (mass/volume) 10.2 mg/dL 8.5-10.1 Serum or plasma total bilirubin measurement (mass/volume) 0.3 mg/dL 0.1-1.0 Serum or plasma alkaline phosphatase measurement (enzymatic activity/volume) 110 U/L 40-136 Serum or plasma aspartate aminotransferase measurement (enzymatic activity/ volume) 9 U/L 5-34 Serum or plasma alanine aminotransferase measurement (enzymatic activity/volume ) 8 U/L 0-55 Serum or plasma protein measurement (mass/volume) 8.1 g/dL 6.4-8.2 Serum or plasma albumin measurement (mass/volume) 3.7 g/dL 3.2-4.5 Capillary blood glucose measurement by glucometer (mass/volume) - 11/26/17 05: 46 Capillary blood glucose measurement by glucometer (mass/volume) 270 mg/dL 70-110 Capillary blood glucose measurement by glucometer (mass/volume) - 11/26/17 10: 23 Capillary blood glucose measurement by glucometer (mass/volume) 230 mg/dL 70-110 Capillary blood glucose measurement by glucometer (mass/volume) - 11/26/17 16: 33 Capillary blood glucose measurement by glucometer (mass/volume) 337 mg/dL 70-110 Capillary blood glucose measurement by glucometer (mass/volume) - 11/26/17 20: 39 Capillary blood glucose measurement by glucometer (mass/volume) 326 mg/dL 70-110 Capillary blood glucose measurement by glucometer (mass/volume) - 11/27/17 05: 02 Capillary blood glucose measurement by glucometer (mass/volume) 231 mg/dL 70-110 Complete blood count (CBC) with automated white blood cell (WBC) differential - 11/27/17 05:35 Blood leukocytes automated count (number/volume) 10.9 10*3/uL 4.3-11.0 Blood erythrocytes automated count (number/volume) 4.28 10*6/uL 4.35-5.85 Venous blood hemoglobin measurement (mass/volume) 13.6 g/dL 11.5-16.0 Blood hematocrit (volume fraction) 43 % 35-52 Automated erythrocyte mean corpuscular volume 101 [foz_us] 80-99 Automated erythrocyte mean corpuscular hemoglobin (mass per erythrocyte) 32 pg 25-34 Automated erythrocyte mean corpuscular hemoglobin concentration measurement ( mass/volume) 32 g/dL 32-36 Automated erythrocyte distribution width ratio 14.3 % 10.0-14.5 Automated blood platelet count (count/volume) 215 10*3/uL 130-400 Automated blood platelet mean volume measurement 9.5 [foz_us] 7.4-10.4 Automated blood neutrophils/100 leukocytes 86 % 42-75 Automated blood lymphocytes/100 leukocytes 9 % 12-44 Blood monocytes/100 leukocytes 5 % 0-12 Automated blood eosinophils/100 leukocytes 0 % 0-10 Automated blood basophils/100 leukocytes 0 % 0-10 Blood neutrophils automated count (number/volume) 9.5 10*3 1.8-7.8 Blood lymphocytes automated count (number/volume) 1.0 10*3 1.0-4.0 Blood monocytes automated count (number/volume) 0.5 10*3 0.0-1.0 Automated eosinophil count 0.0 10*3/uL 0.0-0.3 Automated blood basophil count (count/volume) 0.0 10*3/uL 0.0-0.1 Whole blood basic metabolic panel - 11/27/17 05:35 Serum or plasma sodium measurement (moles/volume) 140 mmol/L 135-145 Serum or plasma potassium measurement (moles/volume) 4.8 mmol/L 3.6-5.0 Serum or plasma chloride measurement (moles/volume) 97 mmol/L 98-107 Carbon dioxide 34 mmol/L 21-32 Serum or plasma anion gap determination (moles/volume) 9 mmol/L 5-14 Serum or plasma urea nitrogen measurement (mass/volume) 18 mg/dL 7-18 Serum or plasma creatinine measurement (mass/volume) 0.79 mg/dL 0.60-1.30 Serum or plasma urea nitrogen/creatinine mass ratio 23 NRG Serum or plasma creatinine measurement with calculation of estimated glomerular filtration rate > NRG Serum or plasma glucose measurement (mass/volume) 220 mg/dL 70-105 Serum or plasma calcium measurement (mass/volume) 10.1 mg/dL 8.5-10.1 Capillary blood glucose measurement by glucometer (mass/volume) - 11/27/17 11: 39 Capillary blood glucose measurement by glucometer (mass/volume) 317 mg/dL 70-110 MICROALBUMIN/CREATININE RATIO, URINE - 03/21/18 16:32 CREATININE, RANDOM URINE 173 mg/dL 20-320 MICROALBUMIN 2.8 mg/dL See Note: MICROALBUMIN/CREATININE RATIO, RANDOM URINE 16 mcg/mg creat <30 CBC - 06/11/18 15:15 WHITE BLOOD CELL COUNT 7.6 Thousand/uL 3.8-10.8 RED BLOOD CELL COUNT 4.68 Million/uL 3.80-5.10 HEMOGLOBIN 14.1 g/dL 11.7-15.5 HEMATOCRIT 42.6 % 35.0-45.0 MCV 91.0 fL 80.0-100.0 MCH 30.1 pg 27.0-33.0 MCHC 33.1 g/dL 32.0-36.0 RDW 12.4 % 11.0-15.0 PLATELET COUNT 222 Thousand/uL 140-400 MPV 9.5 fL 7.5-12.5 ABSOLUTE NEUTROPHILS 5487 cells/uL 4834-3029 ABSOLUTE LYMPHOCYTES 1702 cells/uL 850-3900 ABSOLUTE MONOCYTES 319 cells/uL 200-950 ABSOLUTE EOSINOPHILS 68 cells/uL 15-500 ABSOLUTE BASOPHILS 23 cells/uL 0-200 NEUTROPHILS 72.2 % NRG LYMPHOCYTES 22.4 % NRG MONOCYTES 4.2 % NRG EOSINOPHILS 0.9 % NRG BASOPHILS 0.3 % NRG THYROID ANALYZER - 06/11/18 15:15 TSH 0.88 mIU/L NRG PT panel in platelet poor plasma by coagulation assay - 09/22/18 16:35 Prothrombin time (PT) in platelet poor plasma by coagulation assay 12.1 s 12.2-14.7 INR in platelet poor plasma or blood by coagulation assay 0.9 0.8-1.4 Activated partial thromboplastin time (aPTT) in platelet poor plasma bycoagulation assay - 09/22/18 16:35 Activated partial thromboplastin time (aPTT) in platelet poor plasma bycoagulation assay 32 s 24-35 Blood lactic acid measurement (moles/volume) - 09/22/18 16:35 Blood lactic acid measurement (moles/volume) 1.56 mmol/L 0.50-2.00 Complete blood count (CBC) with automated white blood cell (WBC) differential - 09/22/18 16:35 Blood leukocytes automated count (number/volume) 9.8 10*3/uL 4.3-11.0 Blood erythrocytes automated count (number/volume) 4.51 10*6/uL 4.35-5.85 Venous blood hemoglobin measurement (mass/volume) 13.5 g/dL 11.5-16.0 Blood hematocrit (volume fraction) 42 % 35-52 Automated erythrocyte mean corpuscular volume 94 [foz_us] 80-99 Automated erythrocyte mean corpuscular hemoglobin (mass per erythrocyte) 30 pg 25-34 Automated erythrocyte mean corpuscular hemoglobin concentration measurement ( mass/volume) 32 g/dL 32-36 Automated erythrocyte distribution width ratio 15.2 % 10.0-14.5 Automated blood platelet count (count/volume) 169 10*3/uL 130-400 Automated blood platelet mean volume measurement 9.6 [foz_us] 7.4-10.4 Automated blood neutrophils/100 leukocytes 83 % 42-75 Automated blood lymphocytes/100 leukocytes 10 % 12-44 Blood monocytes/100 leukocytes 8 % 0-12 Automated blood eosinophils/100 leukocytes 0 % 0-10 Automated blood basophils/100 leukocytes 0 % 0-10 Blood neutrophils automated count (number/volume) 8.1 10*3 1.8-7.8 Blood lymphocytes automated count (number/volume) 0.9 10*3 1.0-4.0 Blood monocytes automated count (number/volume) 0.7 10*3 0.0-1.0 Automated eosinophil count 0.0 10*3/uL 0.0-0.3 Automated blood basophil count (count/volume) 0.0 10*3/uL 0.0-0.1 Influenza virus A and B antigen detection - 09/22/18 16:35 FLU RESULT NEGATIVE FOR INFLUENZA A AND B ANTIGENS BY IA [facility] Comprehensive metabolic panel - 09/22/18 16:35 Serum or plasma sodium measurement (moles/volume) 135 mmol/L 135-145 Serum or plasma potassium measurement (moles/volume) 4.0 mmol/L 3.6-5.0 Serum or plasma chloride measurement (moles/volume) 93 mmol/L 98-107 Carbon dioxide 33 mmol/L 21-32 Serum or plasma anion gap determination (moles/volume) 9 mmol/L 5-14 Serum or plasma urea nitrogen measurement (mass/volume) 11 mg/dL 7-18 Serum or plasma creatinine measurement (mass/volume) 0.91 mg/dL 0.60-1.30 Serum or plasma urea nitrogen/creatinine mass ratio 12 [facility] Serum or plasma creatinine measurement with calculation of estimated glomerular filtration rate > [facility] Serum or plasma glucose measurement (mass/volume) 143 mg/dL 70-105 Serum or plasma calcium measurement (mass/volume) 10.4 mg/dL 8.5-10.1 Serum or plasma total bilirubin measurement (mass/volume) 0.6 mg/dL 0.1-1.0 Serum or plasma alkaline phosphatase measurement (enzymatic activity/volume) 101 U/L 40-136 Serum or plasma aspartate aminotransferase measurement (enzymatic activity/ volume) 16 U/L 5-34 Serum or plasma alanine aminotransferase measurement (enzymatic activity/volume ) 9 U/L 0-55 Serum or plasma protein measurement (mass/volume) 8.1 g/dL 6.4-8.2 Serum or plasma albumin measurement (mass/volume) 3.8 g/dL 3.2-4.5 CALCIUM CORRECTED 10.6 mg/dL 8.5-10.1 Serum or plasma lithium measurement (moles/volume) - 09/22/18 16:35 BNP level 38.7 pg/mL <100.0 Serum or plasma C reactive protein measurement (mass/volume) - 09/22/18 16:35 Serum or plasma C reactive protein measurement (mass/volume) 19.78 mg/dL 0.00-0.50 Bacterial blood culture - 09/22/18 16:35 QUANTITY OF GROWTH . NRG Bacterial blood culture SEE COMMEN NRG Bacterial blood culture - 09/22/18 17:00 Bacterial blood culture NG NRG Complete urinalysis with reflex to culture - 09/22/18 17:19 Urine color determination YELLOW NRG Urine clarity determination SLIGHTLY CLOUDY NRG Urine pH measurement by test strip 6 5-9 Specific gravity of urine by test strip 1.015 1.016- 1.022 Urine protein assay by test strip, semi-quantitative 2+ NEGATIVE Urine glucose detection by automated test strip NEGATIVE NEGATIVE Erythrocytes detection in urine sediment by light microscopy 1+ NEGATIVE Urine ketones detection by automated test strip NEGATIVE NEGATIVE Urine nitrite detection by test strip NEGATIVE NEGATIVE Urine total bilirubin detection by test strip NEGATIVE NEGATIVE Urine urobilinogen measurement by automated test strip (mass/volume) 4 mg/dL NORMAL Urine leukocyte esterase detection by dipstick NEGATIVE NEGATIVE Automated urine sediment erythrocyte count by microscopy (number/high power field) [HPF] NRG Automated urine sediment leukocyte count by microscopy (number/high power field ) NONE NRG Bacteria detection in urine sediment by light microscopy NEGATIVE NRG Squamous epithelial cells detection in urine sediment by light microscopy 2-5 NRG Crystals detection in urine sediment by light microscopy NONE NRG Casts detection in urine sediment by light microscopy NONE NRG Mucus detection in urine sediment by light microscopy NEGATIVE NRG Complete urinalysis with reflex to culture NO NRG Bacterial urine culture - 09/22/18 17:19 Bacterial urine culture SEE REPORT NRG COLONY COUNT . NR CBC - 10/08/18 13:31 WHITE BLOOD CELL COUNT 12.6 Thousand/uL 3.8-10.8 RED BLOOD CELL COUNT 5.07 Million/uL 3.80-5.10 HEMOGLOBIN 15.4 g/dL 11.7-15.5 HEMATOCRIT 45.8 % 35.0-45.0 MCV 90.3 fL 80.0-100.0 MCH 30.4 pg 27.0-33.0 MCHC 33.6 g/dL 32.0-36.0 RDW 12.9 % 11.0-15.0 PLATELET COUNT 255 Thousand/uL 140-400 MPV 10.4 fL 7.5-12.5 ABSOLUTE NEUTROPHILS 31769 cells/uL 7132-8279 ABSOLUTE LYMPHOCYTES 1121 cells/uL 850-3900 ABSOLUTE MONOCYTES 743 cells/uL 200-950 ABSOLUTE EOSINOPHILS 38 cells/uL 15-500 ABSOLUTE BASOPHILS 25 cells/uL 0-200 NEUTROPHILS 84.7 % NRG LYMPHOCYTES 8.9 % NRG MONOCYTES 5.9 % NRG EOSINOPHILS 0.3 % NRG BASOPHILS 0.2 % NRG TSH - 10/08/18 13:31 TSH 0.41 mIU/L NRG Encounters ACCT No. Visit Date/Time Discharge Status Pt. Type Provider Facility Loc./Unit Complaint [id number] 11/05/2014 13:47:00 11/05/2014 23:59:59 [facility] Outpatient VÍCTOR BLAIR DO [id number] 08/30/2014 12:04:00 08/30/2014 23:59:59 CLS Outpatient VÍCTOR BLAIR DO [id number] 07/30/2014 13:48:00 07/30/2014 23:59:59 CLS Outpatient VÍCTOR BLAIR DO [id number] 07/28/2014 13:42:00 07/28/2014 23:59:59 CLS Outpatient VÍCTOR BLAIR DO [id number] 07/27/2014 17:00:00 07/27/2014 23:59:59 CLS Outpatient VÍCTOR BLAIR DO [id number] 07/26/2014 13:37:00 07/26/2014 23:59:59 CLS Outpatient JOEL FALCON APRN [id number] 05/28/2014 00:00:00 05/28/2014 23:59:59 CLS Outpatient VÍCTOR BLAIR DO [id number] 05/03/2014 11:11:00 05/03/2014 23:59:59 CLS Outpatient VÍCTOR BLAIR DO [id number] 05/03/2014 11:11:00 05/03/2014 23:59:59 CLS Outpatient VÍCTOR BLAIR DO [id number] 04/27/2014 00:00:00 04/27/2014 23:59:59 CLS Outpatient VÍCTOR BLAIR DO [id number] 10/01/2013 09:12:00 10/01/2013 23:59:59 CLS Outpatient VÍCTOR BLAIR DO [id number] 10/01/2013 09:12:00 10/01/2013 23:59:59 CLS Outpatient VÍCTOR BLAIR DO [id number] 04/01/2013 10:06:00 04/01/2013 23:59:59 CLS Outpatient VÍCTOR BLAIR DO [id number] 04/01/2013 10:06:00 04/01/2013 23:59:59 CLS Outpatient VÍCTOR BLAIR DO [id number] 10/06/2012 16:10:00 10/06/2012 23:59:59 CLS Outpatient [id number] 2012 14:58:00 2012 23:59:59 CLS Outpatient JOEL FALCON APRN [id number] 06/09/2012 16:46:00 06/09/2012 23:59:59 [place] [id number] 02/07/2012 14:20:00 02/07/2012 23:59:59 CLS Outpatient VÍCTOR BLAIR DO [id number] 01/08/2013 13:43:00 Document Registration [id number] 10/06/2012 16:10:00 Document Registration [id number] 09/22/2018 16:32:00 09/22/2018 19:52:00 DIS Emergency AJ WETZEL MD Via [facility] ER SOA [id number] 11/25/2017 18:43:00 11/27/2017 12:50:00 DIS Inpatient NORMAN ALY MD Via [facility] 4TH COPD EXACERBATION, RESPIRATORY DISTRESS [id number] 01/07/2013 20:31:00 01/07/2013 21:45:00 DIS Emergency BRITTANI DEWAYNE NAIR K Via [facility] ER SKIN IRRITATION [id number] 10/30/2018 20:22:00 ACT Emergency ELINA BOLDEN APRN Via [facility] ER SOB [id number] 10/01/2014 14:22:00 Document Registration [id number] 08/15/2010 15:49:00 Document Registration [id number] 07/09/2010 16:25:00 Document Registration [id number] 10/30/2018 19:10:00 ACT Outpatient EASTON LOONEY, YULIYA FAY [facility] [id number] 10/08/2018 11:40:00 Document Registration [id number] 06/11/2018 14:00:00 Document Registration [id number] 03/21/2018 15:00:00 Document Registration [id number] 05/28/2017 16:20:00 Document Registration [id number] 03/15/2017 09:20:00 Document Registration
--- NOTE | 2018-10-30 20:50 | NUR ---
ABG DRAWN BY ELINA BOLDEN APRN FROM LT RADIAL. ALLENS TEST POSITIVE.
[2018-10-30 20:54] LABS: ALANINE AMINOTRANSFERASE 11 U/L (0-55); ALBUMIN 3.4 GM/DL (3.2-4.5); ALKALINE PHOSPHATASE 131 U/L (40-136); BILIRUBIN,TOTAL 0.3 MG/DL (0.1-1.0); CALCIUM 10.4 MG/DL (8.5-10.1); CARBON DIOXIDE 37 MMOL/L (21-32); CHLORIDE 88 MMOL/L (98-107); GLUCOSE 269 MG/DL (70-105); POTASSIUM 3.8 MMOL/L (3.6-5.0); SODIUM 137 MMOL/L (135-145); TOTAL PROTEIN 7.9 GM/DL (6.4-8.2)
--- NOTE | 2018-10-30 20:58 | Diagnostic Imaging Report ---
INDICATION: Shortness of breath. COMPARISON STUDY: Chest from September 22. FINDINGS: Frontal view of the chest demonstrates lungs to be clear. The heart, mediastinum and pulmonary vascularity are normal. Some infiltrates in the right lower lung have cleared. IMPRESSION: Negative chest. Dictated by: Dictated on workstation # [id number]
[2018-10-30 20:59] LABS: ABG BASE EXCESS 13.9 MMOL/L (-2.5-2.5); ABG OXYGEN SATURATION 98 % (94-100); ABG PH 7.35 (7.37-7.43); ABG PO2 90 MMHG (79-93); ABG TCO2 42.5 MMOL/L (21.0-31.0)
[2018-10-30] MEDS ORDERED: cefTRIAXone FOR IV USE 1,000 MG in WATER (STERILE) FOR INJECTION 10 ML IV ONE (21:00)
[2018-10-30 21:02] LABS: ALLENS TEST POSITIVE; INSPIRED O2 50% BIPAP; PATIENT TEMP 97.8; VENTILATOR NO
[2018-10-30 21:03] LABS: ABG PCO2 75 MMHG (35-45)
[2018-10-30 21:06] LABS: BUN/CREATININE RATIO 10; CREATININE SERUM 0.91 MG/DL (0.60-1.30); GFR ESTIMATED > 60
--- OUTSIDE RECORDS SUMMARY | 2018-10-30 22:04 | XMS REPORT | Continuity of Care Document ---
[...] DO, VÍCTOR K 786.2 Cough 04/18/2010 FALCON FINISHED GARMENT INSPECTOR, JOEL R 244.9 HYPOTHYROIDISM 04/18/2010 FALCON FINISHED GARMENT INSPECTOR, JOEL R 296.90 MOOD DISORDER 04/18/2010 FALCON FINISHED GARMENT INSPECTOR, JOEL R 465.9 Upper Respiratory Infection 04/18/2010 FALCON FINISHED GARMENT INSPECTOR, JOEL R 786.2 Cough 04/18/2010 BLAIR DO, [...] VÍCTOR K 786.2 Cough 04/18/2010 BLAIR DO, VCÍTOR K 244.9 HYPOTHYROIDISM 04/18/2010 BLAIR DO, VÍCTOR [...] Abnormal Liver Function Test 07/26/2010 BLAIR DO, VÍTCOR K 276.8 Hypopotassemia 07/26/2010 BLAIR DO, VÍCTOR [...] TERRIE LIMANBEVERLYJOEL R 276.8 Hypopotassemia 07/26/2010 FALCON FINISHED GARMENT INSPECTOR, JOEL R 496 COPD 07/26/2010 FALCON FINISHED GARMENT INSPECTOR, JOEL R 585.9 CHRONIC RENAL FAILURE 07/26/2010 TERRIE FINISHED GARMENT INSPECTOR, JOEL R 790.4 Abnormal Liver Function Test [...] K 278.00 OBESITY UNSPECIFIED 03/13/2011 BLAIR DO, VÍCTRO K 477.9 Allergic Rhinitis Cause Unspecified 06/25/2011 BLAIR DO, VÍCTOR K 461.9 Sinusitis Acute 06/25/2011 BLAIR DO, VÍCTOR K V65.42 COUNSELING - SMOKING CESSATION 06/25/2011 BLAIR DO, VÍCTOR K 461.9 Sinusitis Acute 06/25/2011 BLAIR DO, VÍCTOR K V65.42 COUNSELING - SMOKING CESSATION 06/25/2011 TERRIE FINISHED GARMENT INSPECTOR, JOEL R 461.9 Sinusitis Acute 06/25/2011 TERRIE FINISHED GARMENT INSPECTOR, JOEL R V65.42 COUNSELING - SMOKING CESSATION [...] NONDEPENDENT TOBACCO USE DISORDER 07/03/2011 BLAIR DO, ÍVCTOR K 305.1 NONDEPENDENT TOBACCO USE DISORDER 07/03/2011 [...] APRNRICIA R 272.4 HYPERLIPIDEMIA 07/06/2011 BLAIR DO, VÍCTOR [...] DO, VÍCTOR K 914.4 INSECT BITE 01/08/2013 BLARI DO, VÍCTOR K 914.4 INSECT BITE 01/08/2013 [...] STERO 09/22/2018 AJ WETZEL MD Ot Z79.52 [employer] (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 OF SYSTEMIC STER 09/22/2018 AJ [...] Procedures Code Description [place] [address] ROUTINE VENIPUNCTURE 06/09/2012 45999 A1C (IN-HOUSE) 06/09/2012 98399 CMP 06/09/2012 10603 TSH 06/09/2012 37345 CBC 06/09/2012 84022 ROUTINE VENIPUNCTURE 10/06/2012 79557 A1C (IN-HOUSE) 10/06/2012 91281 CMP 10/06/2012 27079 TSH 10/06/2012 35490 ROUTINE VENIPUNCTURE 04/01/2013 36037 A1C (IN-HOUSE) 04/01/2013 67506 LIPID PANEL 04/01/2013 46379 CMP 04/01/2013 8207125 GFR CALC (RESULT ONLY) 04/01/2013 06781 TSH 04/01/2013 91480 ROUTINE VENIPUNCTURE 10/01/2013 93960 CMP 10/01/2013 48068 LIPID PANEL 10/01/2013 75207 TSH 10/01/2013 90916 A1C (IN-HOUSE) 10/01/2013 24058 MICRO ALBUMIN-IN HOUSE 10/01/2013 10263 ROUTINE VENIPUNCTURE 05/03/2014 73277 [facility] 05/03/2014 90622 LIPID PANEL 05/03/2014 96727 TSH 05/03/2014 11321 A1C (IN-HOUSE) 05/03/2014 2028F FOOT EXAM PERFORMED 05/03/2014 54084 OXIMETRY 07/26/2014 80643 XRAY CHEST 2 VIEW 07/28/2014 13752 OXIMETRY 07/28/2014 37807 OXIMETRY 07/30/2014 WESLEY LEBLANC 07/30/2014 06500 TSH 11/05/2014 70862 ROUTINE VENIPUNCTURE 11/05/2014 00556 MICRO ALBUMIN-IN HOUSE 11/05/2014 49792 A1C (IN-HOUSE) 11/05/20140113981 GFR CALC (RESULT ONLY) 11/05/2014 40705 [facility] 11/05/2014 Results Test Result Range [facility] - 03/15/17 09:41 Glucose, Serum 186 mg/dL [...] PLUS NORMAL DEMARCO NRG Bacterial sputum culture [id number] [facility] Bacterial susceptibility panel - 11/25/17 21:00 Oxacillin [...] 9.5 fL 7.5-12.5 ABSOLUTE NEUTROPHILS 5487 cells/uL 3387-9862 ABSOLUTE LYMPHOCYTES 1702 cells/uL 850-3900 ABSOLUTE MONOCYTES [...] INFLUENZA A AND B ANTIGENS BY IA [facility] Comprehensive metabolic panel - 09/22/18 16:35 Serum [...] or plasma urea nitrogen/creatinine mass ratio 12 [facility] Serum or plasma creatinine measurement with calculation of estimated glomerular filtration rate > [facility] Serum or plasma glucose measurement (mass/volume) 143 [...] 140-400 MPV 10.4 fL 7.5-12.5 ABSOLUTE NEUTROPHILS 42112 cells/uL 3337-1833 ABSOLUTE LYMPHOCYTES 1121 cells/uL 850-3900 ABSOLUTE MONOCYTES 743 cells/uL 200-950 ABSOLUTE EOSINOPHILS 38 cells/uL 15-500 ABSOLUTE BASOPHILS 25 cells/uL 0-200 NEUTROPHILS 84.7 % NRG LYMPHOCYTES 8.9 % NRG MONOCYTES 5.9 % NRG EOSINOPHILS 0.3 % NRG BASOPHILS 0.2 % NRG TSH - 10/08/18 13:31 TSH 0.41 mIU/L NRG Complete blood count (CBC) with automated white blood cell (WBC) differential - 10/30/18 20:25 Blood leukocytes automated count (number/volume) 10.6 10*3/uL 4.3-11.0 Blood erythrocytes automated count (number/volume) 4.48 10*6/uL 4.35-5.85 Venous blood hemoglobin measurement (mass/volume) 13.4 g/dL 11.5-16.0 Blood hematocrit (volume fraction) 43 % 35-52 Automated erythrocyte mean corpuscular volume 96 [foz_us] 80-99 Automated erythrocyte mean corpuscular hemoglobin (mass per erythrocyte) 30 pg 25-34 Automated erythrocyte mean corpuscular hemoglobin concentration measurement ( mass/volume) 31 g/dL 32-36 Automated erythrocyte distribution width ratio 16.3 % 10.0-14.5 Automated blood platelet count (count/volume) 352 10*3/uL 130-400 Automated blood platelet mean volume measurement 9.1 [foz_us] 7.4-10.4 Automated blood neutrophils/100 leukocytes 83 % 42-75 Automated blood lymphocytes/100 leukocytes 10 % 12-44 Blood monocytes/100 leukocytes 6 % 0-12 Automated blood eosinophils/100 leukocytes 0 % 0-10 Automated blood basophils/100 leukocytes 0 % 0-10 Blood neutrophils automated count (number/volume) 8.8 10*3 1.8-7.8 Blood lymphocytes automated count (number/volume) 1.1 10*3 1.0-4.0 Blood monocytes automated count (number/volume) 0.7 10*3 0.0-1.0 Automated eosinophil count 0.0 10*3/uL 0.0-0.3 Automated blood basophil count (count/volume) 0.0 10*3/uL 0.0-0.1 Blood lactic acid measurement (moles/volume) - 10/30/18 20:25 Blood lactic acid measurement (moles/volume) 0.78 mmol/L 0.50-2.00 Comprehensive metabolic panel - 10/30/18 20:25 Serum or plasma sodium measurement (moles/volume) 137 mmol/L 135-145 Serum or plasma potassium measurement (moles/volume) 3.8 mmol/L 3.6-5.0 Serum or plasma chloride measurement (moles/volume) 88 mmol/L 98-107 Carbon dioxide 37 mmol/L 21-32 Serum or plasma anion gap determination (moles/volume) 12 mmol/L 5-14 Serum or plasma urea nitrogen measurement (mass/volume) 9 mg/dL 7-18 Serum or plasma creatinine measurement (mass/volume) 0.91 mg/dL 0.60-1.30 Serum or plasma urea nitrogen/creatinine mass ratio 10 NRG Serum or plasma creatinine measurement with calculation of estimated glomerular filtration rate > NRG Serum or plasma glucose measurement (mass/volume) 269 mg/dL 70-105 Serum or plasma calcium measurement (mass/volume) 10.4 mg/dL 8.5-10.1 Serum or plasma total bilirubin measurement (mass/volume) 0.3 mg/dL 0.1-1.0 Serum or plasma alkaline phosphatase measurement (enzymatic activity/volume) 131 U/L 40-136 Serum or plasma aspartate aminotransferase measurement (enzymatic activity/ volume) 12 U/L 5-34 Serum or plasma alanine aminotransferase measurement (enzymatic activity/volume ) 11 U/L 0-55 Serum or plasma protein measurement (mass/volume) 7.9 g/dL 6.4-8.2 Serum or plasma albumin measurement (mass/volume) 3.4 g/dL 3.2-4.5 CALCIUM CORRECTED 10.9 mg/dL 8.5-10.1 Arterial blood gas measurement - 10/30/18 20:50 Blood pCO2 75 mm[Hg] 35-45 Blood pO2 90 mm[Hg] 79-93 Arterial blood bicarbonate measurement (moles/volume) 40 mmol/L 23-27 Arterial blood base excess by calculation 13.9 mmol/L - 2.5-2.5 Arterial blood oxygen saturation measurement 98 % 94-100 * Inhaled oxygen flow rate 50% BIPAP NRG Arterial blood pH measurement with patient temperature correction 7.35 7.37-7.43 Arterial blood carbon dioxide, total measurement (moles/volume) 42.5 mmol/L 21.0-31.0 Body site LEFT RADIAL NRG Assessment of wrist artery patency prior to arterial puncture POSITIVE NRG Setting of ventilation mode NO NRG Measurement of body temperature 97.8 NRG Encounters ACCT No. Visit Date/Time Discharge Status Pt. Type Provider Facility Loc./Unit Complaint [id number] 11/05/2014 13:47:00 11/05/2014 23:59:59 CLS Outpatient VÍCTOR BLAIR DO [id number] 08/30/2014 12:04:00 08/30/2014 23:59:59 CLS Outpatient VÍCTOR BLAIR DO [id number] 07/30/2014 13:48:00 07/30/2014 23:59:59 CLS Outpatient VÍCTOR BLAIR DO [id number] 07/28/2014 13:42:00 07/28/2014 23:59:59 CLS Outpatient VÍCTOR BLAIR DO [id number] 07/27/2014 17:00:00 07/27/2014 23:59:59 CLS Outpatient VÍCTOR BLAIR DO [id number] 07/26/2014 13:37:00 07/26/2014 23:59:59 [facility] Outpatient JOEL FALCON APRN Josh [id number] 05/28/2014 00:00:00 05/28/2014 23:59:59 CLS Outpatient VÍCTOR BLAIR DO [id number] 05/03/2014 11:11:00 05/03/2014 23:59:59 CLS Outpatient VÍCTOR BLAIR DO [id number] 05/03/2014 11:11:00 05/03/2014 23:59:59 CLS Outpatient VÍCTOR BLAIR DO [id number] 04/27/2014 00:00:00 04/27/2014 23:59:59 CLS Outpatient VÍCTOR BLAIR DO [id number] 10/01/2013 09:12:00 10/01/2013 23:59:59 CLS Outpatient VÍCTOR BLAIR DO [id number] 10/01/2013 09:12:00 10/01/2013 23:59:59 CLS Outpatient VÍCTOR BLAIR DO Gabrielle [id number] 04/01/2013 10:06:00 04/01/2013 23:59:59 CLS Outpatient VÍCTOR BLAIR DO Gabrielle [id number] 04/01/2013 10:06:00 04/01/2013 23:59:59 CLS Outpatient VÍCTOR BLAIR DO Gabrielle [id number] 10/06/2012 16:10:00 10/06/2012 23:59:59 CLS Outpatient [id number] 2012 14:58:00 2012 23:59:59 CLS Outpatient JOEL FALCON APRN [id number] 06/09/2012 16:46:00 06/09/2012 23:59:59 CLS Outpatient VÍCTOR BLAIR DO Gabrielle [id number] 02/07/2012 14:20:00 02/07/2012 23:59:59 CLS Outpatient VÍCTOR BLAIR DO Gabrielle [id number] 01/08/2013 13:43:00 Document Registration [id number] 10/06/2012 16:10:00 Document Registration [id number] 09/22/2018 16:32:00 09/22/2018 19:52:00 DIS Emergency DAMARI LOONEY, AJ Guadarrama Via [facility] ER SOA [id number] 11/25/2017 18:43:00 11/27/2017 12:50:00 DIS Inpatient NORMAN ALY MD Via [facility] 4TH COPD EXACERBATION, RESPIRATORY DISTRESS [id number] 01/07/2013 20:31:00 01/07/2013 21:45:00 DIS Emergency DEWAYNE PETER DO Via [facility] ER SKIN IRRITATION [id number] 10/30/2018 21:39:00 ACT Inpatient BLAIR VÍCTOR Via [facility] ICU COPD EXACERBATION WITH HYPOXIA [id number] 10/01/2014 14:22:00 Document Registration [id number] 08/15/2010 15:49:00 Document Registration [id number] 07/09/2010 16:25:00 Document Registration [id number] 10/30/2018 19:10:00 ACT Outpatient YULIYA MCCORMACK MD [facility] [id number] 10/08/2018 11:40:00 Document Registration [id number] 06/11/2018 14:00:00 Document Registration [id number] 03/21/2018 15:00:00 Document Registration [id number] 05/28/2017 16:20:00 Document Registration [id number] 03/15/2017 09:20:00 Document Registration
[2018-10-30] MEDS ORDERED: ONDANSETRON 4 MG/2 ML (SDV) Z0FRAN IV PRN (22:45)
[2018-10-30] MEDS: NS IV 1000 ML 1,000 ML IV SCH (22:56)
[2018-10-31] VITALS (25 sets, daily range): BP systolic 90–191; BP diastolic 38–105
[2018-10-31] MEDS: RT-ALBUTEROL SULF 2.5 MG/3 ML PRE-MIX VIAL INH SCH ×4 (01:03→14:40)
[2018-10-31 03:46] LABS: BASOPHILS % (AUTO) 0 % (0-10); EOSINOPHILS # (AUTO) 0.2 10^3/uL (0.0-0.3); EOSINOPHILS % (AUTO) 2 % (0-10); HEMATOCRIT 44 % (35-52); HEMOGLOBIN 13.7 G/DL (11.5-16.0); LYMPHOCYTES # (AUTO) 0.6 X 10^3 (1.0-4.0); LYMPHOCYTES % (AUTO) 7 % (12-44); MEAN CORPUSCULAR HEMOGLOBIN 30 PG (25-34); MEAN CORPUSCULAR HGB CONC 32 G/DL (32-36); MEAN CORPUSCULAR VOLUME 95 FL (80-99); MEAN PLATELET VOLUME 9.1 FL (7.4-10.4); MONOCYTES # (AUTO) 0.1 X 10^3 (0.0-1.0); MONOCYTES % (AUTO) 2 % (0-12); NEUTROPHILS # (AUTO) 7.3 X 10^3 (1.8-7.8); NEUTROPHILS % (AUTO) 90 % (42-75); PLATELET COUNT 242 10^3/uL (130-400); RED CELL DISTRIBUTION WIDTH 16.2 % (10.0-14.5); WHITE BLOOD COUNT 8.1 10^3/uL (4.3-11.0)
[2018-10-31 04:11] LABS: ALANINE AMINOTRANSFERASE 13 U/L (0-55); ALBUMIN 3.3 GM/DL (3.2-4.5); ALKALINE PHOSPHATASE 123 U/L (40-136); BILIRUBIN,TOTAL 0.3 MG/DL (0.1-1.0); BUN/CREATININE RATIO 11; CALCIUM 10.2 MG/DL (8.5-10.1); CARBON DIOXIDE 30 MMOL/L (21-32); CHLORIDE 92 MMOL/L (98-107); CREATININE SERUM 0.85 MG/DL (0.60-1.30); GFR ESTIMATED > 60; GLUCOSE 301 MG/DL (70-105); POTASSIUM 4.2 MMOL/L (3.6-5.0); SODIUM 139 MMOL/L (135-145); TOTAL PROTEIN 7.7 GM/DL (6.4-8.2)
[2018-10-31 04:33] LABS: ANISOCYTOSIS SLIGHT; BAND NEUTROPHILS 2 %; LYMPHOCYTES % (MANUAL) 4 %; MONOCYTES % (MANUAL) 3 %; NEUTROPHILS % (MANUAL) 91 %
[2018-10-31] MEDS: methylPREDNISolone 125 MG (Solu-MEDROL) VIAL IV SCH ×2 (05:50→15:41)
--- NOTE | 2018-10-31 07:16 | Diagnostic Imaging Report ---
INDICATION: COPD exacerbation, hypoxia. TECHNIQUE: Frontal view of the chest. COMPARISON: 10/30/2018 FINDINGS: Lung volumes are mildly prominent. The cardiac silhouette is normal in size. There is mild central vascular congestion. No significant pleural effusion or pneumothorax is seen. No focal consolidation is seen. IMPRESSION: Mild central vascular congestion. No focal consolidation seen. Dictated by: Dictated on workstation # [id number]
[2018-10-31] MEDS ORDERED: UMECLIDINIUM BROMIDE (INCRUSE ELLIPTA) 7'S IH SCH (08:00)
[2018-10-31] MEDS ORDERED: RT-ADVAIR HFA 115/21 MCG PER PUFF IH SCH (08:00)
[2018-10-31] MEDS ORDERED: ALBU2.5V4 NEB (08:29)
[2018-10-31] MEDS ORDERED: GLIP5TAB13 PO (08:29)
[2018-10-31] MEDS ORDERED: OMEG10006 PO (08:29)
[2018-10-31] MEDS ORDERED: FLUT1BLS12 INH (08:29)
--- NOTE | 2018-10-31 08:34 | NUR ---
SPOKE WITH THE PATIENT ABOUT HER MEDICATIONS. WE WENT OVER THE EXT MED HX AND SHE VERIFIED HOW SHE TAKES THEM. SHE STATES SHE IS STILL TAKING SPIRIVA, ACCORDING TO THE EXT MED HX SHE IS PAST DUE FOR REFILL. SHE STATES SHE DOES NOT GET SAMPLES BUT SHE DOES USE IT DAILY.
--- NOTE | 2018-10-31 09:19 | History & Physical-Hospitalist ---
History of Present Illness HPI/Chief Complaint CC: Respiratory Insufficiency HPI: This is a 53-year-old white female [facility] patient who presented to the ER via ambulance from [facility] urgent care for shortness of breath and hypoxia. Patient was found to have hypoxia placed on nonrebreather and in the ER placed on BiPAP. Patient was placed on Rocephin for bacterial bronchitis and IV steroids. ABG noted to CO2 retention and repeat this morning shows worsening CO2 retention with worsening hypoxia maintain on BiPAP. I reviewed her old records and labs and meds and considering I do not have the expertise of pulmonary critical care in a very end -stage oxygen dependent severe COPD patient who continues to smoke we will need to transfer to higher level of care after intubation. She has been slightly confused but all she wants to talk about his health hungry she is. We will withhold oral intake considering aspiration risk at intubation. Source: patient, old records Exam Limitations: clinical condition Date Seen 10/31/18 Time Seen by a Provider: 10:00 Attending Physician Brie Robins DO [facility] Center/Se,[facility] Referring Physician Date of Admission Oct 30, 2018 at 21:39 Home Medications & Allergies Home Medications Reviewed patient Home Medication Reconciliation performed by pharmacy medication reconciliations agricultural technician and/or nursing. Patients Allergies have been reviewed. Allergies Allergies Coded Allergies NKANo Known Allergies (Unverified Allergy, Mild, 05/01/09) Past Tilncsz-Tkymdl-Xlfotq Hx Past Med/Social Hx: Reviewed Nursing Past Med/Soc Hx, Reviewed and Corrections made Patient Social History Marrital Status: single Employed/Student: unemployed Alcohol Use: Denies Use Recreational Drug Use: No Smoking Status: Current Everyday Smoker Type Used: Cigarettes 2nd Hand Smoke Exposure: Yes Recent Foreign Travel: No Contact w/other who traveled: No Recent Hopitalizations: No Recent Infectious Disease Expo: No Immunizations Up To Date Tetanus Booster (TDap): Unknown Pediatric: No Date of Pneumonia Vaccine: Aug 22, 2018 Seasonal Allergies Seasonal Allergies: Yes Past Medical History Respiratory: COPD, Emphysema Currently Using CPAP: No Currently Using BIPAP: No Cardiac: High Cholesterol, Hypertension Sexually Transmitted Disease: No HIV/AIDS: No 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 Disorders: Denies Endocrine: Hypothyroidsim, Diabetes, Non-Insulin dep Loss of Vision: Denies Hearing Impairment: Denies Psychosocial: Anxiety, Depression History of Blood Disorders: No Adverse Reaction to Blood Gonzalez: No Family History Cardiovascular disease 19 MOTHER, Onset:Unknown Diabetes mellitus 19 MOTHER, Onset:Unknown Review of Systems ROS-Unable to Obtain: difficult to interview on biPAP Constitutional: see HPI Respiratory: cough, dyspnea on exertion, wheezing Physical Exam Physical Exam Vital Signs Vital Signs - First Documented 10/30/18 10/30/18 20:21 20:35 Temp 97.8 Pulse 106 Resp 22 B/P (MAP) 128/67 (87) Pulse Ox 92 O2 Delivery Non Rebreather O2 Flow Rate 15.00 FiO2 50 Capillary Refill : Less Than 3 Seconds Height, Weight, BMI Height: 5'6.00" Weight: 210lbs. 5.0oz. 95.964714to; 34.7 BMI Method:Stated General Appearance: Anxious, Chronically ill, Moderate Distress, Other (biPAP on) HEENT: PERRL/EOMI, Normal ENT Inspection Neck: Full Range of Motion, Normal Inspection, Non Tender Respiratory: Chest Non Tender, Accessory Muscle Use, Crackles, Decreased Breath Sounds, Rales, Respiratory Distress, Wheezing Cardiovascular: Tachycardia Neurologic/Psychiatric: Alert, No Motor/Sensory Deficits, salesperson yard goods II-XII Norm as Tested, Disoriented Results Results/Procedures Labs Laboratory Tests 10/30/18 20:25 10/31/18 03:30 Patient resulted labs reviewed. Assessment/Plan Admission Diagnosis Assessment: Respiratory failure failed BiPAP with CO2 retention will intubate and transfer to higher level of care Bacterial bronchitis placed on Rocephin Continued smoker End-stage COPD on oxygen 11/02 Depression Diabetes mellitus Obesity Presumed JORGE L Hypertension Hyperlipidemia Hypothyroidism Plan: Intubate Transfer to higher level Admission Status: Inpatient Order (span 2 midnights) Reason for Inpatient Admission: Critically ill Diagnosis/Problems Diagnosis/Problems (1) Respiratory failure Status: Acute Qualifiers: Chronicity: acute on chronic Respiratory failure complication: hypoxia and hypercapnia Qualified Codes: J96.21 - Acute and chronic respiratory failure with hypoxia; J96.22 - Acute and chronic respiratory failure with hypercapnia (2) Encephalopathy acute Status: Acute (3) Acute bacterial bronchitis Status: Acute (4) Smoker Status: Chronic (5) Oxygen dependent Status: Chronic (6) Acute and chronic respiratory failure with hypoxia Status: Acute (7) JORGE L treated with BiPAP Status: Chronic (8) Non-insulin treated type 2 diabetes mellitus Status: Chronic (9) HTN (hypertension) Status: Chronic Qualifiers: Hypertension type: essential hypertension Qualified Codes: I10 - Essential (primary) hypertension (10) Hypothyroidism Status: Chronic Qualifiers: Hypothyroidism type: acquired Qualified Codes: E03.9 - Hypothyroidism, unspecified (11) Depression Status: Chronic Qualifiers: Depression Type: unspecified Qualified Codes: F32.9 - Major depressive disorder, single episode, unspecified Clinical Quality Measures DVT/VTE Risk/Contraindication: Risk Factor Score Per Nursin RFS Level Per Nursing on Admit: 4+=Very High CLAIRE BAZZI DO Oct 31, 2018 09:19
[2018-10-31 09:58] LABS: ABG BASE EXCESS 12.2 MMOL/L (-2.5-2.5); ABG OXYGEN SATURATION 95 % (94-100); ABG PO2 68 MMHG (79-93); ABG TCO2 41.2 MMOL/L (21.0-31.0)
[2018-10-31 09:59] LABS: ALLENS TEST YES-POS; INSPIRED O2 45%; VENTILATOR NO
[2018-10-31 10:00] LABS: ABG PCO2 76 MMHG (35-45); ABG PH 7.32 (7.37-7.43); PATIENT TEMP 97.2
[2018-10-31] MEDS: NS IV 1000 ML 1,000 ML IV SCH (10:21)
[2018-10-31] MEDS ORDERED: CEFT1FRO2 IV (11:42)
[2018-10-31] MEDS ORDERED: METH125V2 IM/IV/SC (11:42)
--- NOTE | 2018-10-31 11:43 | Discharge Summary-Hospitalist ---
Diagnosis/Chief Complaint Date of Admission Oct 30, 2018 at 21:39 Date of Discharge Discharge Date: Oct 31, 2018 Admission Diagnosis Assessment: Respiratory failure failed BiPAP with CO2 retention will intubate and transfer to higher level of care Bacterial bronchitis placed on Rocephin Continued smoker End-stage COPD on oxygen 11/02 Depression Diabetes mellitus Obesity Presumed JORGE L Hypertension Hyperlipidemia Hypothyroidism Plan: Intubate Transfer to higher level Discharge Diagnosis (1) Respiratory failure Status: Acute (2) Encephalopathy acute Status: Acute (3) Acute bacterial bronchitis Status: Acute (4) Smoker Status: Chronic (5) Oxygen dependent Status: Chronic (6) Acute and chronic respiratory failure with hypoxia Status: Acute (7) JORGE L treated with BiPAP Status: Chronic (8) Non-insulin treated type 2 diabetes mellitus Status: Chronic (9) HTN (hypertension) Status: Chronic (10) Hypothyroidism Status: Chronic (11) Depression Status: Chronic Discharge Summary Discharge Physical Exam Allergies: Coded Allergies: NKANo Known Allergies (Unverified Allergy, Mild, 05/01/09) Vitals & I&Os Vital Signs Date Time Temp Pulse Resp B/P (MAP) Pulse Ox O2 Delivery O2 Flow Rate FiO2 10/31/18 12:50 80 10/31/18 12:00 17 129/70 (89) 88 NIV Bilevel 40.00 10/31/18 09:00 45 10/31/18 08:00 96.6 General Appearance: Chronically ill, Moderate Distress, Obese Respiratory: Accessory Muscle Use, Crackles, Respiratory Distress, Wheezing Neurologic/Psychiatric: Alert, Disoriented Hospital Course Was the Problem List Reviewed?: Yes Hospital course: Patient had a brief hospital course after she was admitted placed on BiPAP in the ICU for acute exacerbation of COPD with hypoxia and CO2 retention. Patient failed BiPAP with repeat ABG reviewed and disorientation due to encephalopathy and worsening hypoxia. She was electively intubated and arrangements were made with [facility] Dr. Toussaint who graciously accepted the transfer. Labs (last 24 hrs) Laboratory Tests 10/30/18 20:25: White Blood Count 10.6, Red Blood Count 4.48, Hemoglobin 13.4, Hematocrit 43, Mean Corpuscular Volume 96, Mean Corpuscular Hemoglobin 30, Mean Corpuscular Hemoglobin Concent 31L, Red Cell Distribution Width 16.3H, Platelet Count 352, Mean Platelet Volume 9.1, Neutrophils (%) (Auto) 83H, Lymphocytes (%) (Auto) 10L , Monocytes (%) (Auto) 6, Eosinophils (%) (Auto) 0, Basophils (%) (Auto) 0, Neutrophils # (Auto) 8.8H, Lymphocytes # (Auto) 1.1, Monocytes # (Auto) 0.7, Eosinophils # (Auto) 0.0, Basophils # (Auto) 0.0, Sodium Level 137, Potassium Level 3.8, Chloride Level 88L, Carbon Dioxide Level 37H, Anion Gap 12, Blood Urea Nitrogen 9, Creatinine 0.91, Estimat Glomerular Filtration Rate > 60, BUN/ Creatinine Ratio 10, Glucose Level 269H, Lactic Acid Level 0.78, Calcium Level 10.4H, Corrected Calcium 10.9H, Total Bilirubin 0.3, Aspartate Amino Transf (AST /SGOT) 12, Alanine Aminotransferase (ALT/SGPT) 11, Alkaline Phosphatase 131, Total Protein 7.9, Albumin 3.4 10/30/18 20:50: Blood Gas Puncture Site LEFT RADIAL, Blood Gas Patient Temperature 97.8, Arterial Blood pH 7.35L, Arterial Blood Partial Pressure CO2 75*H, Arterial Blood Partial Pressure O2 90, Arterial Blood HCO3 40H, Arterial Blood Total CO2 42.5H, Arterial Blood Oxygen Saturation 98, Arterial Blood Base Excess 13.9H, Da Test POSITIVE, Blood Gas Ventilator Setting NO, Blood Gas Inspired Oxygen 50% BIPAP 10/31/18 03:30: White Blood Count 8.1, Red Blood Count 4.56, Hemoglobin 13.7, Hematocrit 44, Mean Corpuscular Volume 95, Mean Corpuscular Hemoglobin 30, Mean Corpuscular Hemoglobin Concent 32, Red Cell Distribution Width 16.2H, Platelet Count 242, Mean Platelet Volume 9.1, Neutrophils (%) (Auto) 90H, Lymphocytes (%) (Auto) 7L , Monocytes (%) (Auto) 2, Eosinophils (%) (Auto) 2, Basophils (%) (Auto) 0, Neutrophils # (Auto) 7.3, Lymphocytes # (Auto) 0.6L, Monocytes # (Auto) 0.1, Eosinophils # (Auto) 0.2, Basophils # (Auto) 0.0, Sodium Level 139, Potassium Level 4.2, Chloride Level 92L, Carbon Dioxide Level 30, Anion Gap 17H, Blood Urea Nitrogen 9, Creatinine 0.85, Estimat Glomerular Filtration Rate > 60, BUN/ Creatinine Ratio 11, Glucose Level 301H, Calcium Level 10.2H, Corrected Calcium 10.8H, Total Bilirubin 0.3, Aspartate Amino Transf (AST/SGOT) 11, Alanine Aminotransferase (ALT/SGPT) 13, Alkaline Phosphatase 123, Total Protein 7.7, Albumin 3.3, Neutrophils % (Manual) 91, Lymphocytes % (Manual) 4, Monocytes % ( Manual) 3, Band Neutrophils 2, Anisocytosis SLIGHT 10/31/18 09:34: Blood Gas Puncture Site L RAD, Blood Gas Patient Temperature 97.2, Arterial Blood pH 7.32*L, Arterial Blood Partial Pressure CO2 76*H, Arterial Blood Partial Pressure O2 68L, Arterial Blood HCO3 39H, Arterial Blood Total CO2 41.2H , Arterial Blood Oxygen Saturation 95, Arterial Blood Base Excess 12.2H, Da Test YES-POS, Blood Gas Ventilator Setting NO, Blood Gas Inspired Oxygen 45% Patient resulted labs reviewed. Pending Labs Laboratory Tests 10/31/18 09:34: Blood Gas Puncture Site L RAD, Blood Gas Patient Temperature 97.2, Arterial Blood pH 7.32, Arterial Blood Partial Pressure CO2 76, Arterial Blood Partial Pressure O2 68, Arterial Blood HCO3 39, Arterial Blood Total CO2 41.2, Arterial Blood Oxygen Saturation 95, Arterial Blood Base Excess 12.2, Da Test YES-POS , Blood Gas Ventilator Setting NO, Blood Gas Inspired Oxygen 45% Discussion & Recommendations Discharge Planning: <30 minutes discharge planning Discharge Home Medications: Active Scripts Active Ceftriaxone 1 gm Piggyback (Ceftriaxone Na/Dextrose,Iso) 1 Gm/50 Ml Froz.piggy 1 Gm IV DAILY 6 Days Solu-Medrol 125 mg Vial (Methylprednisolone Sod Succ/Pf) 125 Mg/2 Ml Vial 90 Mg IM/IV/SC Q6H 2 Days Reported Glipizide 5 Mg Tablet 5 Mg PO BID Fluticasone-Salmeterol 250-50 (Fluticasone Propion/Salmeterol) 1 Each Blst.w.dev 1 Puff INH BID [place]-3 Fish Oil 1,000 mg Sftg ([place]-3/Dha/Epa/Fish Oil) 1 Each Capsule 2,000 Mg PO DAILY Albuterol Sulfate 2.5 Mg/3 Ml Vial.neb 2.5 Mg NEB Q6H PRN Montelukast Sodium 10 Mg Tablet 10 Mg PO HS Famotidine 20 Mg Tablet 20 Mg PO BID Loratadine 10 Mg Tablet 10 Mg PO DAILY Metformin HCl 500 Mg Tablet 500 Mg PO BID Levothyroxine Sodium 175 Mcg Tablet 175 Mcg PO DAILY Fluticasone Propionate 16 Gm Myton.susp 2 Myton NS DAILY Amlodipine Besylate 10 Mg Tablet 10 Mg PO DAILY Atorvastatin Calcium 10 Mg Tablet 10 Mg PO DAILY Potassium Chloride 10 Meq Tab.er.prt 10 Meq PO DAILY Furosemide 40 Mg Tablet 40 Mg PO DAILY Proair Hfa (Albuterol Sulfate) 1 Puff Puff 2 Puff INH Q6H PRN Spiriva (Tiotropium [place]) 1 Inh Aerp 1 Cap INH DAILY Paroxetine HCl 40 Mg Tablet 40 Mg PO 1500 Instructions to patient/family Please see electronic discharge instructions given to patient. Clinical Quality Measures DVT/VTE Risk/Contraindication: Risk Factor Score Per Nursin RFS Level Per Nursing on Admit: 4+=Very High Problem Qualifiers (1) Respiratory failure: Chronicity: acute on chronic Respiratory failure complication: hypoxia and hypercapnia Qualified Codes: J96.21 - Acute and chronic respiratory failure with hypoxia; J96.22 - Acute and chronic respiratory failure with hypercapnia (2) HTN (hypertension): Hypertension type: essential hypertension Qualified Codes: I10 - Essential ( primary) hypertension (3) Hypothyroidism: Hypothyroidism type: acquired Qualified Codes: E03.9 - Hypothyroidism, unspecified (4) Depression: Depression Type: unspecified Qualified Codes: F32.9 - Major depressive disorder, single episode, unspecified CLAIRE BAZZI DO Oct 31, 2018 11:43
[2018-10-31] MEDS ORDERED: PROPOFOL DRIP (ICU) 100 ML IV ONE ×2 (13:08→14:58)
[2018-10-31] MEDS ORDERED: proPOfol 200 MG/20 ML (DIPRIVAN) VIAL IV ONE (13:34)
--- NOTE | 2018-10-31 13:50 | NUR ---
WASTE COLLECTOR's arrived at bedside during this time. Pt sedated with Propofol and succs. Pt tolerated ETT placement well. ETT 7.5 at 21 at the lips per ARPITA, WASTE COLLECTOR. Pt sedated with Propofol gtt at this time while WASTE COLLECTOR attempts arterial line at this time. Will continue to monitor. Family updated at bedside at this time post intubation.
--- NOTE | 2018-10-31 14:30 | NUR ---
Arterial line placed to right radial artery at this time per DEJAN PALM. VS remain stable at this time. OG placed by JIMMY Gibbons at bedside. Will continue to monitor.
--- NOTE | 2018-10-31 14:37 | Anesthesia-Procedure Note ---
Procedures/Interventions Procedure Start/Stop/Diagnosis Date of Procedure: Oct 31, 2018 Start Time: 13:20 Referring Physician: Shimon Preprocedural Diagnosis: copd exacerbation Stop Time: 14:20 Intubation RSI: Yes 100% pre-Ox, [id number]: Yes Intubation Method: orotracheal Boyd (size used 0-4): 2 Videoscope used: No Grade View: 1 Medications: Propofol (250), Rocuronium (20mg- given to facilitate veronica placement. ), Succinylcholine (100) Mask Ventilation: positive Positive End Tide CO2: Yes Breath Sounds after Intubation: bilateral-equal ETT Securred @ (cm): 21 Intubated with ease: Yes Intubation Complications: no complications Progress explained to patient and family. allergies verified, pt edentulous. proceed with endotracheal intubation with no event x 1 attempt by SRNA. Terra 7.5ETT @ 21 Lip Arterial Line Arterial Line Catheter: 20G Type: Radial (right) Location: Right Procedure: prepped, draped in sterile fashion, good wave-form was obtained, patient tolerated procedure well, no immediate complications, post procedure area cleaned, post procedure dressing applied NETO LEBLANC CRNA Oct 31, 2018 14:37
--- NOTE | 2018-10-31 15:17 | Diagnostic Imaging Report ---
INDICATION: Intubation. COMPARISON: 10/31/2018 at 3:08 a.m. FINDINGS: ET tube has tip approximately 7 cm above the joi. Enteric tube has tip in the proximal stomach with sidehole near the GE junction. Ill-defined reticular nodular opacities in the left lung base are unchanged. No pleural effusion or pneumothorax. Normal heart size. IMPRESSION: 1. ET tube has tip approximately 7 cm above the joi. Consider 1-2 cm of advancement. 2. Tip of the enteric tube is in the proximal stomach but the sidehole is near the GE junction. Consider approximately 5 cm of advancement. Dictated by: Dictated on workstation # [id number]
[2018-10-31] MEDS ORDERED: PROPOFOL DRIP (ICU) 100 ML IV SCH (15:30)
[2018-10-31 15:53] LABS: ABG OXYGEN SATURATION 98 % (94-100); ABG PO2 96 MMHG (79-93); ABG TCO2 43.4 MMOL/L (21.0-31.0)
[2018-10-31 16:01] LABS: ABG PCO2 94 MMHG (35-45); ABG PH 7.25 (7.37-7.43); ALLENS TEST YES-POS; INSPIRED O2 80%; PATIENT TEMP 97.5; VENTILATOR YES
[2018-10-31] MEDS ORDERED: ROCURONIUM 10 MG/ML 5 ML SYRINGE IV ONE (17:16)
[2018-10-31] MEDS ORDERED: SUCCINYLCHOLINE INJ 100 MG/5 ML SYR INJ ONE (17:16)
--- NOTE | 2018-10-31 17:39 | NUR ---
Patient to [facility] [address] [facility]us, accompanied by EMS staff. Patient and family notified and understand transfer. Personal belongings with patient. Report received given to JIMMY Alejandra at [facility], who will assume pt care on arrival. Assessment completed by ARI SULLIVAN. EMS to transfer pt at this time.
[2018-10-31] MEDS ORDERED: cefTRIAXone 1,000 MG/SWFI 10 ML IV PUSH IV SCH ×2 (21:00)
== END 2018-10-31 17:45 | disposition short-term general hospital (02) | DRG 208 ==
LOC: EDUNIT# 20:21 → ER 20:22 → ICU 21:39
PROVIDERS: ADMIT Family Medicine; ATTEND Family Medicine
PROC: 5A1935Z Respiratory Ventilation, Less than 24 Consecutive Hours (ICD-10-PCS; principal; 2018-10-31)
PROC: 0BH17EZ Insertion of Endotracheal Airway into Trachea, Via Natural or Artificial Opening (ICD-10-PCS; 2018-10-31)
DX: J96.21 Acute and chronic respiratory failure with hypoxia (principal); J96.22 Acute and chronic respiratory failure with hypercapnia; G93.40 Encephalopathy, unspecified; E87.2 Acidosis; J43.9 Emphysema, unspecified; J20.8 Acute bronchitis due to other specified organisms; F17.210 Nicotine dependence, cigarettes, uncomplicated; J30.2 Other seasonal allergic rhinitis; E11.9 Type 2 diabetes mellitus without complications; I10 Essential (primary) hypertension; E78.5 Hyperlipidemia, unspecified; E03.9 Hypothyroidism, unspecified; F41.9 Anxiety disorder, unspecified; F32.9 Major depressive disorder, single episode, unspecified; G47.33 Obstructive sleep apnea (adult) (pediatric); E66.9 Obesity, unspecified; Z68.33 Body mass index [BMI] 33.0-33.9, adult; Z99.81 Dependence on supplemental oxygen; Z79.84 Long term (current) use of oral hypoglycemic drugs
CPT/HCPCS: 36415; 36600; 71045; 80053; 82805; 83605; 84478; 85007; 85025; 85027; 87040; 94002; 94640; 94660; 94799

== ENCOUNTER → 2019-01-15 | Outpatient (CLI) | payer MEDICAID ==
[~2019-01-15] MED LIST changes: +ALBU2.5V4 NEB; +CEFT1FRO2 IV; +FLUT1BLS12 INH; +GLIP5TAB13 PO; +HOLD METFORMIN - RECEIVED CONTRAST 20 ML VIAL IV SCH; +IOHEXOL 350 MG/ML 100 ML (OMNIPAQUE 350) VIAL IV ONE; +METH125V2 IM/IV/SC; +OMEG10006 PO
[2019-01-15 14:59] LABS: BUN/CREATININE RATIO 8; CREATININE SERUM 0.88 MG/DL (0.60-1.30); GFR ESTIMATED > 60
--- NOTE | 2019-01-15 17:05 | Diagnostic Imaging Report ---
PROCEDURE: CT chest with contrast only. TECHNIQUE: Multiple contiguous axial images were obtained through the chest after administration of intravenous contrast. Auto Exposure Controls were utilized during the CT exam to meet ALARA standards for radiation dose reduction. INDICATION: Pneumonia. FINDINGS: There is no consolidation. There may be mild linear atelectasis and/or scarring in the medial segment of the right middle lobe. There is centrilobular emphysema with an upper lobe predominance. No pleural fluid or pericardial effusion is identified. There is suboptimal opacification of pulmonary arteries; however, no mediastinal abnormality is detected. There is no evidence of pathologic adenopathy seen in the chest. Gallbladder is surgically absent. There is mild diffuse thoracic spondylosis. IMPRESSION: No evidence of infiltrate or other acute abnormality seen within the chest. Dictated by: Dictated on workstation # [id number]
== END ==
LOC: RAD 14:29
PROVIDERS: ATTEND Nurse Practitioner Family
DX: J18.8 Other pneumonia, unspecified organism (principal); J96.91 Respiratory failure, unspecified with hypoxia; J96.21 Acute and chronic respiratory failure with hypoxia; G47.33 Obstructive sleep apnea (adult) (pediatric); J44.9 Chronic obstructive pulmonary disease, unspecified; G47.10 Hypersomnia, unspecified; F39 Unspecified mood [affective] disorder; E66.9 Obesity, unspecified; F17.200 Nicotine dependence, unspecified, uncomplicated; Z90.49 Acquired absence of other specified parts of digestive tract
CPT/HCPCS: 36415; 71260; 82565; 84520

== ENCOUNTER 2019-03-08 23:55 | Inpatient (IN) | payer MEDICAID ==
[~2019-03-08] VITALS: Ht 167.6 cm; Wt 96.2 kg
[~2019-03-08 23:55] MED LIST changes: -HOLD METFORMIN - RECEIVED CONTRAST 20 ML VIAL IV SCH; -IOHEXOL 350 MG/ML 100 ML (OMNIPAQUE 350) VIAL IV ONE
[2019-03-08 23:57] VITALS: BP 148/75
[2019-03-09] VITALS (39 sets, daily range): BP systolic 88–148; BP diastolic 46–90
[2019-03-09] MEDS ORDERED: methylPREDNISolone 125 MG (Solu-MEDROL) VIAL IV STA
[2019-03-09] MEDS ORDERED: DEXAMETHASONE 4 MG/ML SDV (DECADRON) IH ONE
[2019-03-09] MEDS ORDERED: RT-ALBUTEROL/IPRATROPIUM 3 ML (DUONEB) VIAL INH ONE
--- NOTE | 2019-03-09 | NUR ---
Bipap settings: 15 Ipap, 5 Epap, Rate 16, 1:2, DL08-247%
[2019-03-09] MEDS ORDERED: RT-ALBUTEROL SULF 2.5 MG/3 ML PRE-MIX VIAL INH STA (00:03)
[2019-03-09 00:13] LABS: ABG BASE EXCESS 12.8 MMOL/L (-2.5-2.5); ABG OXYGEN SATURATION 97 % (94-100); ABG PO2 94 MMHG (79-93); ABG TCO2 45.6 MMOL/L (21.0-31.0)
[2019-03-09 00:16] LABS: BASOPHILS % (AUTO) 0 % (0-10); EOSINOPHILS % (AUTO) 0 % (0-10); HEMATOCRIT 53 % (35-52); HEMOGLOBIN 15.3 G/DL (11.5-16.0); LYMPHOCYTES # (AUTO) 1.4 X 10^3 (1.0-4.0); LYMPHOCYTES % (AUTO) 18 % (12-44); MEAN CORPUSCULAR HEMOGLOBIN 27 PG (25-34); MEAN CORPUSCULAR HGB CONC 29 G/DL (32-36); MEAN CORPUSCULAR VOLUME 92 FL (80-99); MEAN PLATELET VOLUME 9.5 FL (7.4-10.4); MONOCYTES # (AUTO) 0.5 X 10^3 (0.0-1.0); MONOCYTES % (AUTO) 6 % (0-12); NEUTROPHILS # (AUTO) 5.6 X 10^3 (1.8-7.8); NEUTROPHILS % (AUTO) 75 % (42-75); PLATELET COUNT 190 10^3/uL (130-400); RED CELL DISTRIBUTION WIDTH 16.6 % (10.0-14.5); WHITE BLOOD COUNT 7.4 10^3/uL (4.3-11.0)
[2019-03-09] MEDS ORDERED: NS IV 1000 ML 1,000 ML ONE ×2 (00:23→00:50)
--- NOTE | 2019-03-09 00:25 | NUR ---
Patient medication from EMS: Metformin, Lasix, Paroxetine, Potassium, Levothyroxine, montelukast, famotidine, glipzide, amlodipine, loratadine.
[2019-03-09 00:26] LABS: ABG PCO2 120 MMHG (35-45); ABG PH 7.16 (7.37-7.43)
[2019-03-09 00:27] LABS: ALLENS TEST POSITIVE; INSPIRED O2 100% BIPAP; VENTILATOR NO
[2019-03-09 00:32] LABS: PROTHROMBIN TIME PATIENT 12.7 SEC (12.2-14.7)
[2019-03-09 00:33] LABS: INR 0.9 (0.8-1.4)
--- NOTE | 2019-03-09 00:33 | NUR ---
The patient was preped for intubation. RT and ER physician at the bedside with nursing staff. 0035 Patient administered 100mcg Fentanyl 0036 patient administered 5mg Versed 0037 patient administered 100mg Succs 0038 patient was intubated per RT staff with an 8.0 ETT without difficulty. depth of 24 at the teeth. Colormetric change with confirmation of ETCO2 wavefrom. Verification of bilateral breath sounds per Dr. Nevarez. ETT is securred with a Just[employer] Tube Truong 0040 16fr OG tube placement confirmed. 0043 100mg Rocuronium administered 0120 100mcg Fentanyl administered to the patient for pain, patient has tearing 0150 Rocephin 1G administered to the patient 0155 50mcg Fentanyl administered to the patient for pain, patient has tearing and coughing 0157 2.5mg Versed administered for sedation 0200 Zithromycin administered 0208 Diprivan drip initiated per physician order for sedation. Initial rate is 7mcg/kg/min 0223 50mcg Fentanyl administered for pain 0225 2.5mg Versed for sedation, patient coughing with ETT 0226 Diprivan drip rate increased to 10mcg/kg/min-patient tolerated well.
[2019-03-09 00:34] LABS: ALBUMIN 3.9 GM/DL (3.2-4.5); CALCIUM 10.5 MG/DL (8.5-10.1); CHLORIDE 92 MMOL/L (98-107); POTASSIUM 4.8 MMOL/L (3.6-5.0); SODIUM 140 MMOL/L (135-145)
[2019-03-09] MEDS ORDERED: AZITHROMYCIN INJECTION 500 MG in NS (IVPB) 250 ML IV ONE (00:45)
[2019-03-09] MEDS ORDERED: cefTRIAXone FOR IV USE 1,000 MG in WATER (STERILE) FOR INJECTION 10 ML IV ONE (00:45)
[2019-03-09 00:54] LABS: ALANINE AMINOTRANSFERASE 10 U/L (0-55); ALKALINE PHOSPHATASE 161 U/L (40-136); BILIRUBIN,TOTAL 0.4 MG/DL (0.1-1.0); BUN/CREATININE RATIO 13; CARBON DIOXIDE 36 MMOL/L (21-32); CREATINE KINASE 83 U/L (29-168); CREATININE SERUM 0.84 MG/DL (0.60-1.30); GFR ESTIMATED > 60; GLUCOSE 253 MG/DL (70-105); TOTAL PROTEIN 8.7 GM/DL (6.4-8.2)
[2019-03-09] MEDS ORDERED: FUROSEMIDE 40 MG/4 ML INJ (LASIX) IVP ONE (01:00)
--- NOTE | 2019-03-09 01:00 | NUR ---
Patients daughter: Eve, phone number: [phone]
[2019-03-09 01:02] LABS: TSH (THYROID ANALYZER) 0.29 UIU/ML (0.35-4.94)
[2019-03-09] MEDS ORDERED: NS (IVPB) 250 ML ONE (01:30)
[2019-03-09] MEDS ORDERED: NOREPINEPHRINE 4 MG/4 ML (LEVOPHED) AMP IV ONE (01:31)
[2019-03-09 01:39] LABS: ABG BASE EXCESS 8.4 MMOL/L (-2.5-2.5); ABG OXYGEN SATURATION 100 % (94-100); ABG PO2 201 MMHG (79-93); ABG TCO2 38.5 MMOL/L (21.0-31.0)
[2019-03-09 01:40] LABS: ABG PCO2 88 MMHG (35-45); ABG PH 7.23 (7.37-7.43); ALLENS TEST POSITIVE
[2019-03-09 01:41] LABS: INSPIRED O2 50%; PATIENT TEMP 95.6; VENTILATOR YES
[2019-03-09 01:52] LABS: FREE T4 (FREE THYROXINE) 0.92 NG/DL (0.70-1.48)
[2019-03-09 01:52] LABS: BILIRUBIN,URINE 1+ (NEGATIVE); CLARITY,URINE SLIGHTLY CLOUDY; COLOR,URINE AMBER; GLUCOSE, URINE (UA) 1+ (NEGATIVE); KETONES,URINE 1+ (NEGATIVE); LEUKOCYTE ESTERASE ,URINE 1+ (NEGATIVE); NITRITE,URINE POSITIVE (NEGATIVE); PH,URINE 6 (5-9); PROTEIN,URINE 4+ (NEGATIVE); UROBILINOGEN,URINE 4 MG/DL (NORMAL)
[2019-03-09] MEDS ORDERED: PROPOFOL DRIP (ICU) 100 ML IV ONE ×2 (01:55→10:52)
[2019-03-09 02:14] LABS: BACTERIA,URINE LARGE /HPF
[2019-03-09 02:15] LABS: AMPHETAMINE SCREEN, URINE NEGATIVE (NEGATIVE); BARBITURATE SCREEN URINE NEGATIVE (NEGATIVE); BENZODIAZEPINES SCREEN URINE NEGATIVE (NEGATIVE); CANNABINOID SCREEN, URINE NEGATIVE (NEGATIVE); COCAINE SCREEN URINE NEGATIVE (NEGATIVE); METHADONE STAT NEGATIVE (NEGATIVE); METHAMPHETAMINE SCREEN URINE S NEGATIVE (NEGATIVE); OPIATE SCREEN URINE NEGATIVE (NEGATIVE); OXYCODONE STAT NEGATIVE (NEGATIVE); PROPOXYPHENE STAT NEGATIVE (NEGATIVE); TRICYCLIC ANTIDEPRESSANTS SCRE NEGATIVE (NEGATIVE)
--- NOTE | 2019-03-09 02:50 | NUR ---
Report called to ICU. Rebecca MARQUEZ.
--- NOTE | 2019-03-09 02:56 | NUR ---
Firearms Specialist at the bedside to transport the patient to the ICU.
[2019-03-09] MEDS ORDERED: D5 1/2 NS W/KCL 20 MEQ/L 1,000 ML IV ONE (03:13)
[2019-03-09] MEDS: D5 1/2 NS W/KCL 20 MEQ/L 1,000 ML IV SCH ×2 (03:40→16:55)
[2019-03-09] MEDS ORDERED: NOREPINEPHRINE 4 MG/NS 250 ML DRIP IV SCH ×2 (03:45)
[2019-03-09 04:23] LABS: ABG BASE EXCESS 10.1 MMOL/L (-2.5-2.5); ABG OXYGEN SATURATION 91 % (94-100); ABG PO2 58 MMHG (79-93); ABG TCO2 39.3 MMOL/L (21.0-31.0)
[2019-03-09 04:30] LABS: ALLENS TEST POSITIVE; INSPIRED O2 50%; PATIENT TEMP 97.1; VENTILATOR YES
[2019-03-09] MEDS ORDERED: RT-ALBUTEROL/IPRATROPIUM 3 ML (DUONEB) VIAL INH PRN (04:30)
[2019-03-09 04:31] LABS: ABG PCO2 77 MMHG (35-45); ABG PH 7.29 (7.37-7.43)
--- NOTE | 2019-03-09 05:22 | Diagnostic Imaging Report ---
INDICATION: Shortness of air. COMPARISON: 10/31/2018 FINDINGS: Single frontal view of the chest demonstrates normal heart size and pulmonary vascularity. The lungs are well aerated and clear. No large pleural effusion or pneumothorax is seen. The visualized osseous structures show no acute abnormalities. IMPRESSION: 1. No acute cardiopulmonary process. Dictated by: Dictated on workstation # [id number]
--- NOTE | 2019-03-09 05:24 | Diagnostic Imaging Report ---
INDICATION: Shortness of air. COMPARISON: Earlier same day. FINDINGS: Single frontal radiographic view of the chest was obtained and shows indwelling endotracheal tube with tip below the clavicular heads and above the joi. Gastric tube is coiled within the stomach. Cardiac silhouette and pulmonary vasculature are within normal limits. Lungs appear slightly hyperinflated, but are otherwise clear. There is no large effusion or pneumothorax. Osseous structures show no gross acute abnormalities. IMPRESSION: 1. Indwelling lines and tubes as above. 2. Mildly hyperinflated appearance of the lungs. Otherwise, no evidence of failure or focal infiltrate. Dictated by: Dictated on workstation # [id number]
[2019-03-09] MEDS ORDERED: RT-ALBUTEROL/IPRATROPIUM 3 ML (DUONEB) VIAL ONE (05:52)
[2019-03-09] MEDS ORDERED: methylPREDNISolone 125 MG (Solu-MEDROL) VIAL IV SCH (06:00)
[2019-03-09] MEDS ORDERED: FUROSEMIDE 40 MG/4 ML INJ (LASIX) IV ONE (06:00)
[2019-03-09] MEDS: RT-ALBUTEROL/IPRATROPIUM 3 ML (DUONEB) VIAL INH SCH ×5 (06:10→22:27)
[2019-03-09] MEDS ORDERED: VANCOMYCIN 1500 MG/NS 500 ML IVPB IV ONE ×2 (06:15)
[2019-03-09] MEDS ORDERED: VANCOMYCIN 1500 MG/NS 500 ML IVPB IV SCH ×2 (07:00)
[2019-03-09] MEDS: ENOXAPARIN 40 MG/0.4 ML (LOVENOX) SYR SC SCH (07:41)
--- NOTE | 2019-03-09 07:55 | Pulmonary Consultation ---
History of Present Illness History of Present Illness Date of Consultation 03/09/19 07:49 Time Seen by Provider: 13:26 Date of Admission History of Present Illness 53yo with hx of COPD who presented with EMS services to the ER with complains of shortness of breath. Worsening since the last 24 hours. Associated with confusion. The patient is currently intubated/ventilated therefore history is based on talking to the RN and reviewing all notes. Separately the patient did not have any chest pain on arrival to the ER. No fever, cough. No significant syncope, near-syncope, palpitations. continues to smoke one pack a day. She is oxygen dependent at home and requires 4 L through nasal cannula. She is had previous admissions for COPD exacerbation. No known cardiac history. She has history of diabetes, hypertension, hyperlipidemia. Allergies and Home Medications Allergies Coded Allergies: CALDERONANo Known Allergies (Unverified Allergy, Mild, 05/01/09) Home Medications Albuterol Sulfate 1 Puff Puff, 2 PUFF INH Q6H PRN for SHORTNESS OF BREATH, (Reported) Albuterol Sulfate 2.5 Mg/3 Ml Vial.neb, 2.5 MG NEB Q6H PRN for SHORTNESS OF BREATH, (Reported) Aspirin 81 Mg Tab.chew, 81 MG PO DAILY Prescribed by: CLAIRE BAZZI on 03/20/19 104 Atorvastatin Calcium 10 Mg Tablet, 10 MG PO DAILY, (Reported) Famotidine 20 Mg Tablet, 20 MG PO BID, (Reported) Fluticasone Propion/Salmeterol 1 Each Blst.w.dev, 1 PUFF INH BID, (Reported) Fluticasone Propionate 16 Gm [place].susp, 2 SPRAY NS DAILY, (Reported) Furosemide 40 Mg Tablet, 40 MG PO DAILY, (Reported) Glipizide 5 Mg Tablet, 5 MG PO BID, (Reported) Levothyroxine Sodium 175 Mcg Tablet, 175 MCG PO DAILY, (Reported) Loratadine 10 Mg Tablet, 10 MG PO DAILY, (Reported) Metformin HCl 500 Mg Tablet, 500 MG PO BID, (Reported) Metoprolol Succinate 50 Mg Tab.er.24h, 50 MG PO DAILY Prescribed by: CLAIRE BAZZI on 03/20/19 104 Montelukast Sodium 10 Mg Tablet, 10 MG PO HS, (Reported) [place]-3/Dha/Epa/Fish Oil 1 Each Capsule, 2,000 MG PO DAILY, (Reported) Paroxetine HCl 40 Mg Tablet, 40 MG PO 1500, (Reported) Potassium Chloride 10 Meq Tab.er.prt, 10 MEQ PO DAILY, (Reported) Prednisone 10 Mg Tab.ds.pk, 10 MG PO DAILY Take 6 tabs(60mg)daily,decrease by 1 tab(10MG)daily. Prescribed by: CLAIRE BAZZI on 03/20/19 1049 Tiotropium [place] 1 Inh Aerp, 1 CAP INH DAILY, (Reported) LAST FILLED 11-06-18 Past Scthkhd-Eqtchy-Zcxhqi Hx Patient Social History Type Used: Cigarettes 2nd Hand Smoke Exposure: Yes Recent Hopitalizations: No Immunizations Up To Date Tetanus Booster (TDap): Unknown PED Vaccines UTD: No Date of Pneumonia Vaccine: Aug 22, 2018 Seasonal Allergies Seasonal Allergies: Yes Past Medical History Surgeries: Yes Respiratory: Yes (chronic hypoxia) COPD Currently Using CPAP: No Currently Using BIPAP: No Cardiac: Yes High Cholesterol, Hypertension Neurological: No 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 Disorders: Denies Sexually Transmitted Disease: No HIV/AIDS: No Genitourinary: No Gastrointestinal: No Musculoskeletal: No Endocrine: Yes Hypothyroidsim, Diabetes, Non-Insulin dep HEENT: No Loss of Vision: Denies Hearing Impairment: Denies Cancer: No Psychosocial: Yes Anxiety, Depression Integumentary: No Blood Disorders: No Adverse Reaction/Blood Tranf: No Family Medical History Cardiovascular disease 19 MOTHER, Onset:Unknown Diabetes mellitus 19 MOTHER, Onset:Unknown Review of Systems Time Seen by Provider: 13:27 Sepsis Event Evaluation Height, Weight, BMI Height: 5'6.00" Weight: 224lbs. 8.0oz. 101.347802fo; 33.9 BMI Method:Stated Exam Exam Vital Signs Date Time Temp Pulse Resp B/P (MAP) Pulse Ox O2 Delivery O2 Flow Rate FiO2 03/09/19 07:00 85 03/09/19 07:00 85 25 101/58 (72) 92 Mechanical Ventilator 55.00 03/09/19 06:45 83 25 90/49 (63) 89 Mechanical Ventilator 50.00 03/09/19 06:30 87 26 95/54 (68) 91 Mechanical Ventilator 50.00 03/09/19 06:15 81 25 107/61 (76) 92 Mechanical Ventilator 50.00 03/09/19 06:10 81 26 93 50 03/09/19 06:00 78 19 104/68 (80) 93 Mechanical Ventilator 50.00 03/09/19 05:45 80 20 94/56 (69) 92 Mechanical Ventilator 50.00 03/09/19 05:30 80 19 106/59 (75) 92 Mechanical Ventilator 50.00 03/09/19 05:15 75 19 96/56 (69) 92 Mechanical Ventilator 50.00 03/09/19 05:00 75 19 97/55 (69) 91 Mechanical Ventilator 50.00 03/09/19 04:45 77 19 93/56 (68) 91 Mechanical Ventilator 50.00 03/09/19 04:30 74 19 88/46 (60) 91 Mechanical Ventilator 50.00 03/09/19 04:21 63 90 50 03/09/19 04:15 73 20 95/60 (72) 90 Mechanical Ventilator 50.00 03/09/19 04:00 75 20 98/57 (71) 91 Mechanical Ventilator 50.00 03/09/19 04:00 91 Mechanical Ventilator 50.00 03/09/19 03:45 75 20 98/57 (71) 90 Mechanical Ventilator 50.00 03/09/19 03:30 78 19 99/63 (75) 92 Mechanical Ventilator 50.00 03/09/19 03:30 91 Mechanical Ventilator 50 03/09/19 03:19 81 20 94 50 03/09/19 03:15 97.7 96 20 122/70 (87) 90 Mechanical Ventilator 50.00 03/09/19 03:12 95 03/09/19 02:13 65 16 119/63 100 Mechanical Ventilator 30.00 03/09/19 00:40 54 16 100 100 03/09/19 00:17 73 22 100 100.00 I & O 03/09/19 07:00 Intake Total 0 ml Output Total 400 ml Balance -400 ml Height & Weight Height: 5'6.00" Weight: 224lbs. 8.0oz. [id number]; 33.9 BMI Method:Stated General Appearance: Anxious, Mild Distress HEENT: PERRL/EOMI, Normal ENT Inspection, Pharynx Normal Neck: Full Range of Motion, Non Tender, Supple Respiratory: Chest Non Tender, No Accessory Muscle Use, No Respiratory Distress, Decreased Breath Sounds Gastrointestinal: normal bowel sounds, non tender, soft Extremity: Normal Capillary Refill, No Pedal Edema Neurologic/Psychiatric: Alert Skin: Normal Color, Warm/Dry Lymphatic: No Adenopathy Results Lab Laboratory Tests 03/09/19 00:02 Assessment/Plan Assessment/Plan Acute respiratory failure -Continue vent -Repeat ABG at 8am -CXR shows no acute process -repeat labs - last labs from admission -D/C Vanco and Azithromycin -Check CTA of chest Elevated troponin and BNP -Check CTA to R/o PE -Check echo COPDAE -Solumedrol -- change to 40 IV Q 6 -SVNs Q 4 UTI -Rocephin -Cultures pending Hypercalemia, and elevated alk phos -Check PTH, YURI, and ionized calcium -Does not appear pt was on HCTZ or calcium supplements at home WESLEY ALMAGUER DO Mar 09, 2019 07:55
[2019-03-09] MEDS ORDERED: NS 100 ML (IVPB) BAG IV ONE (08:00)
[2019-03-09] MEDS ORDERED: IOHEXOL 350 MG/ML 100 ML (OMNIPAQUE 350) VIAL IV ONE (08:00)
[2019-03-09] MEDS ORDERED: HOLD METFORMIN - RECEIVED CONTRAST 20 ML VIAL IV SCH (08:00)
[2019-03-09] MEDS ORDERED: CATHETER FLUSH 10 ML SYR IV PRN (08:00)
--- NOTE | 2019-03-09 08:05 | ED Respiratory ---
General Chief Complaint: Respiratory Problems Stated Complaint: ACUTE ON CHRONIC RESPIRATORY FAILURE; PNEUMONIA, Source: patient (VERY POOR HISTORIAN, CAN GIVE ONLY MINIMAL INFORMATION), EMS Exam Limitations: clinical condition History of Present Illness Date Seen by Provider: Mar 08, 2019 Time Seen by Provider: 23:54 Initial Comments PT ARRIVES VIA EMS FROM HOME PT WITH C/O SHORTNESS OF BREATH--IS A CHRONIC PROBLEM, APPARENTLY WORSE SINCE YESTERDAY DAUGHTER WENT TO SEE HER TODAY AND FOUND HER VERY SHORT OF BREATH, SOMEWHAT CONFUSED / NOT TALKING QUITE RIGHT, SO DAUGHTER CALLED EMS. ON DIRECT QUESTIONING OF PT ON ARRIVAL, SHE IS ABLE TO ANSWER A VERY FEW YES/NO QUESTIONS: -DENIES CHEST PAIN -DENIES SIGNIFICANT COUGH -DENIES FEVER -DENIES SWELLING IN LEGS ON DIRECT QUESTIONING OF PT ON ARRIVAL, REGARDING CODE STATUS, PT STATES SHE W ISHES TO BE A FULL CODE. NO OTHER INFORMATION IS OBTAINABLE FROM PT PT WITH LONG HISTORY OF COPD AND CONTINUES TO SMOKE AT LEAST 1 PPD PT WEARS HOME O2 AT 4L/NC NORMALLY AND O2 SAT WAS 62% ON 4L/NC WHEN [facility] PLAC[facility] PT ON 8L/NC AND O2 SAT GOT UP TO THE 80'S EMS GAVE DUO NEB TREATMENT ENROUTE. PT WAS ADMITTED 09/22 AND 10/30 FOR THIS SAME PROBLEM AND REQUIRED INTUBATION ON 10/30 AND WAS TRANSFERRED TO [facility] IN [place] DAUGHTER ARRIVES A SHORT TIME LATER, AND GIVES MINIMAL ADDITIONAL HISTORY, BUT DOES STATE THAT PT IS VERY NON-COMPLIANT IN ALL ASPECTS OF CARE. PCP: [facility], DR. Joshua CARRINGTON Allergies and Home Medications Allergies Coded Allergies: NKANo Known Allergies (Unverified Allergy, Mild, 05/01/09) Home Medications Albuterol Sulfate 1 Puff Puff, 2 PUFF INH Q6H PRN for SHORTNESS OF BREATH, (Reported) Albuterol Sulfate 2.5 Mg/3 Ml Vial.neb, 2.5 MG NEB Q6H PRN for SHORTNESS OF BREATH, (Reported) Amlodipine Besylate 10 Mg Tablet, 10 MG PO DAILY, (Reported) Atorvastatin Calcium 10 Mg Tablet, 10 MG PO DAILY, (Reported) Ceftriaxone Na/Dextrose,Iso 1 Gm/50 Ml Froz.piggy, 1 GM IV DAILY Prescribed by: CLAIRE BAZZI on 10/31/18 1142 Famotidine 20 Mg Tablet, 20 MG PO BID, (Reported) Fluticasone Propion/Salmeterol 1 Each Blst.w.dev, 1 PUFF INH BID, (Reported) Fluticasone Propionate 16 Gm [place].susp, 2 SPRAY NS DAILY, (Reported) Furosemide 40 Mg Tablet, 40 MG PO DAILY, (Reported) Glipizide 5 Mg Tablet, 5 MG PO BID, (Reported) Levothyroxine Sodium 175 Mcg Tablet, 175 MCG PO DAILY, (Reported) Loratadine 10 Mg Tablet, 10 MG PO DAILY, (Reported) Metformin HCl 500 Mg Tablet, 500 MG PO BID, (Reported) Methylprednisolone Sod Succ/Pf 125 Mg/2 Ml Vial, 90 MG IM/IV/SC Q6H Prescribed by: CLAIRE BAZZI on 10/31/18 1142 Montelukast Sodium 10 Mg Tablet, 10 MG PO HS, (Reported) [place]-3/Dha/Epa/Fish Oil 1 Each Capsule, 2,000 MG PO DAILY, (Reported) Paroxetine HCl 40 Mg Tablet, 40 MG PO 1500, (Reported) Potassium Chloride 10 Meq Tab.er.prt, 10 MEQ PO DAILY, (Reported) Tiotropium [place] 1 Inh Aerp, 1 CAP INH DAILY, (Reported) Review of Systems Review of Systems Constitutional: see HPI Respiratory: see HPI Cardiovascular: No chest pain Past Heiqjwv-Bfthxs-Eicgud Hx Patient Social History Alcohol Use: Past History Recreational Drug Use: No (DENIES) Smoking Status: Current Everyday Smoker (1 PPD) Type Used: Cigarettes 2nd Hand Smoke Exposure: Yes Recent Hopitalizations: No Immunizations Up To Date Tetanus Booster (TDap): Unknown PED Vaccines UTD: No Date of Pneumonia Vaccine: Aug 22, 2018 Seasonal Allergies Seasonal Allergies: Yes Past Medical History Surgeries: Yes Respiratory: Yes (O2 DEPENDENT AT 4L/NC; INTUBATED 10/2018 FOR RESPIRATORY FAILURE ) Pneumonia, COPD Currently Using CPAP: No Currently Using BIPAP: No Cardiac: Yes High Cholesterol, Hypertension Neurological: No 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 Disorders: Denies Sexually Transmitted Disease: No HIV/AIDS: No Genitourinary: No Gastrointestinal: No Musculoskeletal: No Endocrine: Yes Hypothyroidsim, Diabetes, Non-Insulin dep HEENT: No Loss of Vision: Denies Hearing Impairment: Denies Cancer: No Psychosocial: Yes Anxiety, Depression Integumentary: No Blood Disorders: No Adverse Reaction/Blood Tranf: No Family Medical History Cardiovascular disease 19 MOTHER, Onset:Unknown Diabetes mellitus 19 MOTHER, Onset:Unknown Physical Exam Vital Signs - First Documented 03/09/19 03/09/19 00:17 00:40 Pulse 73 Resp 22 Pulse Ox 100 O2 Flow Rate 100.00 FiO2 100 Capillary Refill : Height: 5'6.00" Weight: 224lbs. 8.0oz. 101.756047wl; 33.9 BMI Method:Stated General Appearance: moderate distress, obese, other (PT LETHARGIC/VERY DROWSY, SPEECH SLIGHTLY THICK TONGUED. MODERATE RESPIRATORY DISTRESS ON ARRIVAL . PT IS DIAPHORETIC ON ARRIVAL. PT IS FILTHY, VERY MALODOROUS AND ALSO REEKS OF CIGARETTES AND OLD URINE, CLOTHING IS SATURATED WITH URINE ON ARRIVAL) Respiratory: respiratory distress, decreased breath sounds (DECREASED AERATION IN ALL LUNG JO), accessory muscle use, wheezing (DIFFUSE EXPIRATORY WHEEZING BILATERALLY) Focused Exam Lactate Level 03/09/19 00:02: Lactic Acid Level 1.39 Lactic Acid Level Laboratory Tests Test 03/09/19 00:02 Lactic Acid Level 1.39 MMOL/L (0.50-2.00) Procedures/Interventions Date of ETT Placement: Mar 09, 2019 Time of ETT Placement: 0040 Tube Size: 8.00 Progress/Results/Core Measures Suspected Sepsis Infection Criteria Present: Documented Infection Sepsis Screen: No Definite Risk SIRS Temperature:97.1 Pulse: 85 Respiratory Rate: 25 Laboratory Tests 03/09/19 00:02: White Blood Count 7.4 Blood Pressure 101 /58 Mean: 72 03/09/19 00:02: Lactic Acid Level 1.39 Laboratory Tests 03/09/19 00:02: Creatinine 0.84, INR Comment 0.9, Platelet Count 190, Total Bilirubin 0.4 Results/Orders Lab Results Laboratory Tests Test 03/09/19 00:02 Range/Units White Blood Count 7.4 4.3-11.0 10^3/uL Red Blood Count 5.73 4.35-5.85 10^6/uL Hemoglobin 15.3 11.5-16.0 G/DL Hematocrit 53 H 35-52 % Mean Corpuscular Volume 92 80-99 FL Mean Corpuscular Hemoglobin 27 25-34 PG Mean Corpuscular Hemoglobin Concent 29 L 32-36 G/DL Red Cell Distribution Width 16.6 H 10.0-14.5 % Platelet Count 190 130-400 10^3/uL Mean Platelet Volume 9.5 7.4-10.4 FL Neutrophils (%) (Auto) 75 42-75 % Lymphocytes (%) (Auto) 18 12-44 % Monocytes (%) (Auto) 6 0-12 % Eosinophils (%) (Auto) 0 0-10 % Basophils (%) (Auto) 0 0-10 % Neutrophils # (Auto) 5.6 1.8-7.8 X 10^3 Lymphocytes # (Auto) 1.4 1.0-4.0 X 10^3 Monocytes # (Auto) 0.5 0.0-1.0 X 10^3 Eosinophils # (Auto) 0.0 0.0-0.3 10^3/uL Basophils # (Auto) 0.0 0.0-0.1 10^3/uL Prothrombin Time 12.7 12.2-14.7 SEC INR Comment 0.9 0.8-1.4 Activated Partial Thromboplast Time 27 24-35 SEC Blood Gas Puncture Site LEFT RADIAL Blood Gas Patient Temperature 97.0 Arterial Blood pH 7.16 *L 7.37-7.43 Arterial Blood Partial Pressure CO2 120 *H 35-45 MMHG Arterial Blood Partial Pressure O2 94 H 79-93 MMHG Arterial Blood HCO3 42 *H 23-27 MMOL/L Arterial Blood Total CO2 45.6 H 21.0-31.0 MMOL/L Arterial Blood Oxygen Saturation 97 94-100 % Arterial Blood Base Excess 12.8 H -2.5-2.5 MMOL/L Da Test POSITIVE Blood Gas Ventilator Setting NO Blood Gas Inspired Oxygen 100% BIPAP Sodium Level 140 135-145 MMOL/L Potassium Level 4.8 3.6-5.0 MMOL/L Chloride Level 92 L 98-107 MMOL/L Carbon Dioxide Level 36 H 21-32 MMOL/L Anion Gap 12 5-14 MMOL/L Blood Urea Nitrogen 11 7-18 MG/DL Creatinine 0.84 0.60-1.30 MG/DL Estimat Glomerular Filtration Rate > 60 BUN/Creatinine Ratio 13 Glucose Level 253 H 70-105 MG/DL Lactic Acid Level 1.39 0.50-2.00 MMOL/L Calcium Level 10.5 H 8.5-10.1 MG/DL Corrected Calcium 10.6 H 8.5-10.1 MG/DL Magnesium Level 2.0 1.6-2.4 MG/DL Total Bilirubin 0.4 0.1-1.0 MG/DL Aspartate Amino Transf (AST/SGOT) 15 5-34 U/L Alanine Aminotransferase (ALT/SGPT) 10 0-55 U/L Alkaline Phosphatase 161 H 40-136 U/L Total Creatine Kinase 83 29-168 U/L Creatine Kinase MB 5.0 <6.6 NG/ML Troponin I 0.107 H <0.028 NG/ML B-Type Natriuretic Peptide 1032.1 H <100.0 PG/ML Total Protein 8.7 H 6.4-8.2 GM/DL Albumin 3.9 3.2-4.5 GM/DL Free Thyroxine 0.92 0.70-1.48 NG/DL TSH Rogers Testing 0.29 L 0.35-4.94 UIU/ML Serum Alcohol < 10 <10 MG/DL My Orders Orders - DEWAYNE PETER DO Cbc With Automated Diff (03/09/19 00:00) Comprehensive Metabolic Panel (03/09/19 00:00) Blood Culture (03/09/19 00:00) Sputum Culture (03/09/19 00:00) Urinalysis (03/09/19 00:00) Urine Culture (03/09/19 00:00) Protime With Inr (03/09/19:00) Partial Thromboplastin Time (03/09/19 00:00) Chest 1 View, Ap/Pa Only (03/09/19 00:00) Ed Iv/Invasive Line Start (03/09/19 00:00) Ed Iv/Invasive Line Start (03/09/19 00:00) Ekg Tracing (03/09/19 00:00) Troponin I (03/09/19 00:00) Vital Signs Adult Sepsis Patie Q15M (03/09/19 00:00) O2 (03/09/19 00:00) Remove Rings In Anticipation O (03/09/19 00:00) Lactic Acid Analyzer (03/09/19 00:00) Catheter(Urinary) Insert & Ass 03,15 (03/09/19 00:00) Monitor-Rhythm Ecg Trace Only (03/09/19 00:00) Alcohol (03/09/19 00:00) Arterial Blood Gas (03/09/19 00:00) BNP (8/19/19 00:00) Creatine Kinase (03/09/19 00:00) Creatine Kinase Mb (03/09/19 00:00) Drug Screen Stat (Urine) (03/09/19 00:00) Magnesium (03/09/19 00:00) Thyroid Analyzer (03/09/19 00:00) Albuterol/Ipra Inhalation Soln (Duoneb I (03/09/19 00:00) Dexamethasone Injection (Decadron Inject (03/09/19 00:00) Rt Request For Service (03/09/19 00:00) Methylprednisolone Sod Succ (Solu-Medrol (03/09/19 00:00) Svn Small Volume Nebulizer (03/09/19 00:00) Albuterol Pre-Mix Nebs (Rt) (Proventil (03/09/19 00:03) Svn Small Volume Nebulizer (03/09/19 00:03) Ns Iv 1000 Ml (Sodium Chloride 0.9%) (03/09/19 00:23) Chest 1 View, Ap/Pa Only (03/09/19 00:37) Ng Tube Insert & Assessment (03/09/19 00:37) Ceftriaxone For Iv Use (Rocephin For I (03/09/19 00:45) Azithromycin Injection (Zithromax Inject (03/09/19 00:45) Free T4 (Free Thyroxine) (03/09/19 00:02) Medications Given in ED Current Medications Medications Dose Ordered Sig/Jeana Route Start Time Stop Time Status Last Admin Dose Admin Albuterol/ Ipratropium 3 ml ONCE ONCE INH 03/09/19 00:00 03/09/19 00:04 DC 03/09/19 00:16 3 ML Dexamethasone Sodium Phosphate 20 mg ONCE ONCE IH 03/09/19 00:00 03/09/19 00:04 DC 03/09/19 00:16 20 MG Sodium Chloride 1,000 ml @ STK-MED ONCE .ROUTE 03/09/19 00:23 03/09/19 00:30 DC 03/09/19 02:16 0 MLS/HR Vital Signs/I&O 03/09/19 03/09/19 00:17 00:40 Pulse 73 54 Resp 22 16 Pulse Ox 100 100 O2 Flow Rate 100.00 FiO2 100 Capillary Refill : Blood Pressure Mean: 72 Departure Communication (Admissions) 0040--SPOKE WITH DR. BAZZI, HOSPITALIST CHIEF DOG LICENSE INSPECTOR FOR [facility]. ACCEPTS PT FOR ADMIT 0048--SPOKE WITH DR. ALMAGUER, AND INFORMED HIM OF PT AND NEED FOR CONSULT. NO ADDITIONAL RECOMMENDATIONS AT THIS TIME 0127--SPOKE WITH DR. ZEPEDA, RECORDING STUDIO INTERN, AND INFORMED HIM OF CONSULT. ADVISES DVT PROPHYLAXIS DOSE OF LOVENOX, AND LEVOPHED IF PT NEEDS A PRESSOR AGENT. NO OTHER ADDITIONAL RECOMMENDATIONS AT THIS TIME. Impression Primary Impression: Acute on chronic respiratory failure with hypoxia and hypercapnia Additional Impressions: CO2 narcosis Pneumonia CHF (congestive heart failure) Heavy cigarette smoker Elevated troponin UTI (urinary tract infection) Sepsis Disposition: ADMITTED INPATIENT Condition: Improved Admissions Decision to Admit Reason: Admit from ER (General) Decision to Admit/Date: Mar 09, 2019 Time/Decision to Admit Time: 00:40 Departure-Patient Inst. Referrals: [facility] (PCP) Primary Care Physician DEWAYNE PETER DO Mar 09, 2019 08:05
[2019-03-09 08:17] LABS: ABG BASE EXCESS 11.6 MMOL/L (-2.5-2.5); ABG OXYGEN SATURATION 92 % (94-100); ABG PO2 61 MMHG (79-93); ABG TCO2 40.3 MMOL/L (21.0-31.0)
[2019-03-09 08:19] LABS: ABG PCO2 75 MMHG (35-45); ABG PH 7.32 (7.37-7.43); ALLENS TEST YES-POS
[2019-03-09 08:20] LABS: PATIENT TEMP 97.8; VENTILATOR YES
[2019-03-09] MEDS ORDERED: MIDAZOLAM 5 MG/5 ML (VERSED) VIAL IJ ONE (08:26)
[2019-03-09] MEDS ORDERED: ROCURONIUM 10 MG/ML 5 ML SYRINGE IV ONE (08:26)
[2019-03-09] MEDS ORDERED: fentaNYL INJECTION 100 MCG/2 ML AMP INJ ONE (08:26)
[2019-03-09] MEDS ORDERED: SUCCINYLCHOLINE INJ 100 MG/5 ML SYR INJ ONE (08:26)
[2019-03-09 08:27] LABS: BASOPHILS % (AUTO) 0 % (0-10); EOSINOPHILS % (AUTO) 0 % (0-10); HEMATOCRIT 46 % (35-52); HEMOGLOBIN 13.5 G/DL (11.5-16.0); LYMPHOCYTES # (AUTO) 0.4 X 10^3 (1.0-4.0); LYMPHOCYTES % (AUTO) 5 % (12-44); MEAN CORPUSCULAR HEMOGLOBIN 27 PG (25-34); MEAN CORPUSCULAR HGB CONC 29 G/DL (32-36); MEAN CORPUSCULAR VOLUME 92 FL (80-99); MEAN PLATELET VOLUME 9.3 FL (7.4-10.4); MONOCYTES # (AUTO) 0.1 X 10^3 (0.0-1.0); MONOCYTES % (AUTO) 1 % (0-12); NEUTROPHILS # (AUTO) 6.5 X 10^3 (1.8-7.8); NEUTROPHILS % (AUTO) 94 % (42-75); PLATELET COUNT 158 10^3/uL (130-400); RED CELL DISTRIBUTION WIDTH 16.5 % (10.0-14.5)
[2019-03-09 08:49] LABS: ALANINE AMINOTRANSFERASE 8 U/L (0-55); ALBUMIN 3.3 GM/DL (3.2-4.5); ALKALINE PHOSPHATASE 125 U/L (40-136); BILIRUBIN,TOTAL 0.3 MG/DL (0.1-1.0); BUN/CREATININE RATIO 14; CALCIUM 9.4 MG/DL (8.5-10.1); CARBON DIOXIDE 33 MMOL/L (21-32); CHLORIDE 97 MMOL/L (98-107); CREATININE SERUM 0.91 MG/DL (0.60-1.30); GFR ESTIMATED > 60; GLUCOSE 269 MG/DL (70-105); MAGNESIUM 1.6 MG/DL (1.6-2.4); POTASSIUM 4.5 MMOL/L (3.6-5.0); SODIUM 138 MMOL/L (135-145); TOTAL PROTEIN 7.1 GM/DL (6.4-8.2)
[2019-03-09 09:12] LABS: ANISOCYTOSIS SLIGHT; BAND NEUTROPHILS 4 %; BASOPHILS % (MANUAL) 0 %; EOSINOPHILS % (MANUAL) 0 %; LYMPHOCYTES % (MANUAL) 2 %; MONOCYTES % (MANUAL) 0 %; NEUTROPHILS % (MANUAL) 94 %
[2019-03-09] MEDS: methylPREDNISolone 40 MG/ML (Solu-MEDROL) VIAL IV SCH ×3 (09:14→17:35)
--- NOTE | 2019-03-09 09:15 | Diagnostic Imaging Report ---
PROCEDURE: CT angiography of the chest with contrast. TECHNIQUE: Multiple contiguous axial images were obtained through the chest after uneventful bolus administration of intravenous contrast. 3D reconstructed CTA MIP acquisitions were also performed. Auto Exposure Controls were utilized during the CT exam to meet ALARA standards for radiation dose reduction. INDICATION: Risk for failure. Correlation is made with prior CT chest from 01/15/2019. The pulmonary arterial system is without thromboembolism. No filling defects are seen within the central, lobar or segmental branches. The thoracic aorta is normal in caliber. No dissection is identified. NG tube passes into the stomach. ET tube is above the joi. No axillary lymphadenopathy is seen. The mediastinum is unremarkable. Small lymph nodes in the alisha bilaterally are noted indeterminate. There is no pericardial or pleural fluid. Parenchymal dilation does show some scarring or atelectasis in the anterior right upper lobe. Some minimal infiltrate or atelectasis posterior right lower lobe. No masses are seen. Upper abdomen is unremarkable. Impression: 1. No evidence of pulmonary embolism or thoracic aortic dissection. 2. Mildly prominent hilar lymph nodes bilaterally which may be reactive. 3. Minimal infiltrate or atelectasis anterior right upper lobe and posterior right lower lobe. Dictated by: Dictated on workstation # [id number]
--- NOTE | 2019-03-09 10:15 | NUR ---
UNABLE TO SPEAK WITH THE PATIENT ABOUT HER MEDICATIONS AT THIS TIME. I REVIEWED THE MED REC WITH WHAT HAS BEEN FILLED RECENTLY ACCORDING TO THE EXT MED HX.
--- NOTE | 2019-03-09 10:53 | Consultation-Cardiology ---
HPI-Cardiology Cardiology Consultation: Date of Consultation 03/09/19 Date of Admission Attending Physician Rhiannon Iglesias MD Admitting Physician [facility] Consulting Physician Nick ZEPEDA MD HPI: Time Seen by a Provider: 10:00 Chief Complaint: Shortness of breath This is a 53-year-old patient who presented with EMS services to the ER with complains of shortness of breath. Worsening since the last 24 hours. Associated with confusion. The patient is currently intubated/ventilated therefore history is based on talking to the RN and reviewing all notes. Separately the patient did not have any chest pain on arrival to the ER. No fever, cough. No significant syncope, near-syncope, palpitations. She has history of COPD and continues to smoke one pack a day. She is oxygen dependent at home and requires 4 L through nasal cannula. She is had previous admissions for COPD exacerbation. No known cardiac history. She has history of diabetes, hypertension, hyperlipidemia. Review of Systems-Cardiology Review of Systems Constitutional: As described under HPI; No As described under HPI, No no symptoms reported, No chills, No fever, No lightheadedness Eyes: No As described under HPI, No no symptoms reported, No blindness, No blurred vision, No contact lenses, No drainage, No decreased acuity, No foreign body sensation, No pain, No vision change Ears/Nose/Throat: No As described under HPI, No no symptoms reported, No chronic hearing loss, No ear discharge, No ear pain, No nasal drainage, No ulcerations Respiratory: No no symptoms reported; As described under HPI; No As described under HPI, No cough; orthopnea; No shortness of breath, No SOB with excertion Cardiovascular: No no symptoms reported; As described under HPI; No As described under HPI, No chest pain, No edema, No irregular heart rate, No lightheadedness, No palpitations Gastrointestinal: No no symptoms reported, No As described under HPI, No abdomen distended, No abdominal pain, No blood streaked bowels, No constipation, No diarrhea, No nausea, No vomiting, No stool coloration changes Genitourinary: No As described under HPI, No burning, No dysuria, No discharge, No frequency, No flank pain, No hematuria, No urgency : Yes : No Skin: No rash, No skin related problems, No ulcerations Psychiatric/Neurological: No anxiety, No depression, No seizure, No focal weakness, No syncope Hematologic: No bleeding abnormalities [id number] Hx Patient Social History Alcohol Use: Past History Recreational Drug Use: No (DENIES) Smoking Status: Current Everyday Smoker (1 PPD) Type Used: Cigarettes 2nd Hand Smoke Exposure: Yes Immunizations Up To Date Tetanus Booster (TDap): Unknown Date of Pneumonia Vaccine: Aug 22, 2018 Past Medical History PMH As described under Assessment. Family Medical History Family History: Cardiovascular disease 19 MOTHER, Onset:Unknown Diabetes mellitus 19 MOTHER, Onset:Unknown Allergies and Home Medications Allergies Coded Allergies: NKANo Known Allergies (Unverified Allergy, Mild, 05/01/09) Home Medications Albuterol Sulfate 1 Puff Puff, 2 PUFF INH Q6H PRN for SHORTNESS OF BREATH, (Reported) Albuterol Sulfate 2.5 Mg/3 Ml Vial.neb, 2.5 MG NEB Q6H PRN for SHORTNESS OF BREATH, (Reported) Amlodipine Besylate 10 Mg Tablet, 10 MG PO DAILY, (Reported) Atorvastatin Calcium 10 Mg Tablet, 10 MG PO DAILY, (Reported) Famotidine 20 Mg Tablet, 20 MG PO BID, (Reported) Fluticasone Propion/Salmeterol 1 Each Blst.w.dev, 1 PUFF INH BID, (Reported) Fluticasone Propionate 16 Gm [place].susp, 2 SPRAY NS DAILY, (Reported) Furosemide 40 Mg Tablet, 40 MG PO DAILY, (Reported) Glipizide 5 Mg Tablet, 5 MG PO BID, (Reported) Levothyroxine Sodium 175 Mcg Tablet, 175 MCG PO DAILY, (Reported) Loratadine 10 Mg Tablet, 10 MG PO DAILY, (Reported) Metformin HCl 500 Mg Tablet, 500 MG PO BID, (Reported) Montelukast Sodium 10 Mg Tablet, 10 MG PO HS, (Reported) [place]-3/Dha/Epa/Fish Oil 1 Each Capsule, 2,000 MG PO DAILY, (Reported) Paroxetine HCl 40 Mg Tablet, 40 MG PO 1500, (Reported) Potassium Chloride 10 Meq Tab.er.prt, 10 MEQ PO DAILY, (Reported) Tiotropium [place] 1 Inh Aerp, 1 CAP INH DAILY, (Reported) LAST FILLED 11-06-18 Patient Home Medication List Home Medication List Reviewed: Yes Physical Exam-Cardiology Physical Exam Vital Signs/I&O 03/09/19 03/09/19 03/09/19 03/09/19 04:00 04:00 04:15 04:21 Pulse 75 73 63 Resp 20 B/P (MAP) 98/57 (71) 95/60 (72) Pulse Ox 91 91 90 90 O2 Delivery Mechanical Ventilator Mechanical Ventilator Mechanical Ventilator O2 Flow Rate 50.00 50.00 50.00 FiO2 50 03/09/19 03/09/19 03/09/19 03/09/19 04:30 04:45 05:00 05:15 Pulse 74 77 75 75 Resp B/P (MAP) 88/46 (60) 93/56 (68) 97/55 (69) 96/56 (69) Pulse Ox 91 91 91 92 O2 Delivery Mechanical Ventilator Mechanical Ventilator Mechanical Ventilator Mechanical Ventilator O2 Flow Rate 50.00 50.00 50.00 50.00 03/09/19 03/09/19 03/09/19 03/09/19 05:30 05:45 06:00 06:10 Pulse 80 80 78 81 Resp B/P (MAP) 106/59 (75) 94/56 (69) 104/68 (80) Pulse Ox 92 92 93 93 O2 Delivery Mechanical Ventilator Mechanical Ventilator Mechanical Ventilator O2 Flow Rate 50.00 50.00 50.00 FiO2 50 03/09/19 03/09/19 03/09/19 03/09/19 06:15 06:30 06:45 07:00 Pulse 81 87 83 85 Resp 25 26 25 25 B/P (MAP) 107/61 (76) 95/54 (68) 90/49 (63) 101/58 (72) Pulse Ox 92 91 89 92 O2 Delivery Mechanical Ventilator Mechanical Ventilator Mechanical Ventilator Mechanical Ventilator O2 Flow Rate 50.00 50.00 50.00 55.00 03/09/19 03/09/19 03/09/19 03/09/19 07:00 08:00 08:00 08:53 Temp 98.4 Pulse 85 85 Resp 25 B/P (MAP) 98/55 (69) Pulse Ox 91 O2 Delivery Mechanical Ventilator Mechanical Ventilator O2 Flow Rate 55.00 FiO2 55 03/09/19 03/09/19 03/09/19 03/09/19 09:00 09:31 10:00 11:00 Pulse 80 84 85 80 Resp 25 26 25 25 B/P (MAP) 102/58 (73) 104/60 (75) 114/66 (82) Pulse Ox 93 92 93 94 O2 Delivery Mechanical Ventilator Mechanical Ventilator Mechanical Ventilator O2 Flow Rate 55.00 55.00 55.00 FiO2 50 03/09/19 03/09/19 03/09/19 03/09/19 11:01 11:02 12:00 12:00 Temp 99.0 Pulse 84 Resp 20 B/P (MAP) 114/66 113/67 (82) Pulse Ox 95 O2 Delivery Mechanical Ventilator Mechanical Ventilator O2 Flow Rate 55.00 FiO2 55 03/09/19 03/09/19 03/09/19 03/09/19 12:32 13:00 13:45 14:00 Pulse 86 84 75 92 Resp 25 26 15 B/P (MAP) 126/67 (86) 117/58 (77) Pulse Ox 92 92 92 O2 Delivery Mechanical Ventilator Mechanical Ventilator O2 Flow Rate 55.00 55.00 FiO2 50 03/09/19 03/09/19 15:34 15:35 Temp 97.6 O2 Delivery Mechanical Ventilator FiO2 55 Capillary Refill : Constitutional: appears stated age, AAO x 3; No apparent distress; well- developed, well-nourished, other (intubated/ventilated.) HEENT: PERRL; No normal ENT inspection, No TMs normal, No pharynx normal, No scleral icterus (R), No scleral icterus (L), No pale conjunctivae (R), No pale conjunctivae (L), No photophobia, No TM abnormal (R), No TM abnormal (L), No pharyngeal erythema, No tonsillar exudate, No other, No discharge, No EOMI; hearing is well preserved; No hard of hearing; oral hygience is good; No ulceration, No xanthelasmas are seen Neck: No non-tender, No full range of motion, No supple, No normal inspection, No carotid bruit, No limited range of motion, No lymphadenopathy (R), No lymphadenopathy (L), No tender lateral, No tender midline, No thyromegaly, No other; carotid pulses are 2 + bilaterally; No with good upstrokes Respiratory: other (intubated/ventilated.) Cardiovascular: regular rate-rhythm; No irregularly irregular, No extra beats, No parasternal heave is noted, No JVD, No edema, No bradycardia, No tachycardia, No point of maximal impulse, No cardiac thrills are palpable; S1 and S2; No gallop/S3, No gallop/S4, No diastolic murmur, No systolic murmur, No friction rub, No click, No other Gastrointestinal: No tender, No soft, No round, No distended, No pulsatile mass, No organomegaly, No guarding, No rebound, No tenderness, No hernia, No mass, No audible bowel sounds, No abnormal bowel sounds, No abdominal bruits, No spleenomegaly, No other Rectal: deferred Extremities: No normal range of motion, No non-tender, No normal inspection, No pedal edema, No calf tenderness, No normal capillary refill, No pelvis stable, No calf tenderness, No inflammation, No pedal edema, No slow capillary refill, No swelling, No other, No abrasion, No clubbing, No cyanosis, No ecchymosis, No laceration, No no lower extremity edema bilateral, No significant edema, No tenderness, No wound Neurologic/Psychiatric: other (intubated/ventilated.) Skin: No rash, No ulcerations Data Review Labs Laboratory Tests 03/09/19 00:02: White Blood Count 7.4, Red Blood Count 5.73, Hemoglobin 15.3, Hematocrit 53H, Mean Corpuscular Volume 92, Mean Corpuscular Hemoglobin 27, Mean Corpuscular Hemoglobin Concent 29L, Red Cell Distribution Width 16.6H, Platelet Count 190, Mean Platelet Volume 9.5, Neutrophils (%) (Auto) 75, Lymphocytes (%) (Auto) 18, Monocytes (%) (Auto) 6, Eosinophils (%) (Auto) 0, Basophils (%) (Auto) 0, Neutrophils # (Auto) 5.6, Lymphocytes # (Auto) 1.4, Monocytes # (Auto) 0.5, Eosinophils # (Auto) 0.0, Basophils # (Auto) 0.0, Prothrombin Time 12.7, INR Comment 0.9, Activated Partial Thromboplast Time 27, Blood Gas Puncture Site LEFT RADIAL, Blood Gas Patient Temperature 97.0, Arterial Blood pH 7.16*L, Arterial Blood Partial Pressure CO2 120*H, Arterial Blood Partial Pressure O2 94H, Arterial Blood HCO3 42*H, Arterial Blood Total CO2 45.6H, Arterial Blood Oxygen Saturation 97, Arterial Blood Base Excess 12.8H, Da Test POSITIVE, Blood Gas Ventilator Setting NO, Blood Gas Inspired Oxygen 100% BIPAP, Sodium Level 140, Potassium Level 4.8, Chloride Level 92L, Carbon Dioxide Level 36H, Anion Gap 12, Blood Urea Nitrogen 11, Creatinine 0.84, Estimat Glomerular Filtration Rate > 60, BUN/Creatinine Ratio 13, Glucose Level 253H, Lactic Acid Level 1.39, Calcium Level 10.5H, Corrected Calcium 10.6H, Magnesium Level 2.0, Total Bilirubin 0.4, Aspartate Amino Transf (AST/SGOT) 15, Alanine Aminotransferase (ALT/SGPT) 10, Alkaline Phosphatase 161H, Total Creatine Kinase 83, Creatine Kinase MB 5.0, Troponin I 0.107H, B-Type Natriuretic Peptide 1032.1H, Total Protein 8.7H, Albumin 3.9, Free Thyroxine 0.92, TSH [place] Testing 0.29L, Serum Alcohol < 10 03/09/19 01:31: Blood Gas Puncture Site RIGHT RADIAL, Blood Gas Patient Temperature 95.6, Arterial Blood pH 7.23*L, Arterial Blood Partial Pressure CO2 88*H, Arterial Blood Partial Pressure O2 201H, Arterial Blood HCO3 36H, Arterial Blood Total CO2 38.5H, Arterial Blood Oxygen Saturation 100, Arterial Blood Base Excess 8.4H , Da Test POSITIVE, Blood Gas Ventilator Setting YES, Blood Gas Inspired Oxygen 50% 03/09/19 01:45: Urine Color AMBERH, Urine Clarity SLIGHTLY CLOUDY, Urine pH 6, Urine Specific [place] 1.025H, Urine Protein 4+, Urine Glucose (UA) 1+H, Urine Ketones 1+H, Ur ine Nitrite POSITIVEH, Urine Bilirubin 1+H, Urine Urobilinogen 4H, Urine Leukocyte Esterase 1+H, Urine RBC (Auto) 1+H, Urine RBC NONE, Urine WBC 2-5, U rine Squamous Epithelial Cells 10-25H, Urine Crystals NONE, Urine Bacteria LARGEH, Urine Casts PRESENT, Urine Hyaline Casts 2-5H, Urine Mucus LARGEH, Urine Culture Indicated CULTURE PENDING, Urine Opiates Screen NEGATIVE, Urine Oxycodone Screen NEGATIVE, Urine Methadone Screen NEGATIVE, Urine Propoxyphene Screen NEGATIVE, Urine Barbiturates Screen NEGATIVE, Ur Tricyclic Antidepressants Screen NEGATIVE, Urine Phencyclidine Screen NEGATIVE, Urine Amphetamines Screen NEGATIVE, Urine Methamphetamines Screen NEGATIVE, Urine Benzodiazepines Screen NEGATIVE, Urine Cocaine Screen NEGATIVE, Urine Cannabinoids Screen NEGATIVE 8/19/19 04:15: Blood Gas Puncture Site RIGHT RADIAL, Blood Gas Patient Temperature 97.1, Arterial Blood pH 7.29*L, Arterial Blood Partial Pressure CO2 77*H, Arterial Blood Partial Pressure O2 58L, Arterial Blood HCO3 37H, Arterial Blood Total CO2 39.3H, Arterial Blood Oxygen Saturation 91L, Arterial Blood Base Excess 10.1H, Da Test POSITIVE, Blood Gas Ventilator Setting YES, Blood Gas Inspired Oxygen 50% 03/09/19 06:02: Troponin I 0.078H 03/09/19 08:05: Blood Gas Puncture Site L RADIAL, Blood Gas Patient Temperature 97.8, Arterial Blood pH 7.32*L, Arterial Blood Partial Pressure CO2 75*H, Arterial Blood Partial Pressure O2 61L, Arterial Blood HCO3 38H, Arterial Blood Total CO2 40.3H , Arterial Blood Oxygen Saturation 92L, Arterial Blood Base Excess 11.6H, Da Test YES-POS, Blood Gas Ventilator Setting YES, Blood Gas Inspired Oxygen 55% 03/09/19 08:15: White Blood Count 7.0, Red Blood Count 5.04, Hemoglobin 13.5, Hematocrit 46, Mean Corpuscular Volume 92, Mean Corpuscular Hemoglobin 27, Mean Corpuscular Hemoglobin Concent 29L, Red Cell Distribution Width 16.5H, Platelet Count 158, Mean Platelet Volume 9.3, Neutrophils (%) (Auto) 94H, Lymphocytes (%) (Auto) 5L, Monocytes (%) (Auto) 1, Eosinophils (%) (Auto) 0, Basophils (%) (Auto) 0, Neutrophils # (Auto) 6.5, Lymphocytes # (Auto) 0.4L, Monocytes # (Auto) 0.1, Eosinophils # (Auto) 0.0, Basophils # (Auto) 0.0, Neutrophils % (Manual) 94, Lymphocytes % (Manual) 2, Monocytes % (Manual) 0, Eosinophils % (Manual) 0, Basophils % (Manual) 0, Band Neutrophils 4, Anisocytosis SLIGHT, Sodium Level 138, Potassium Level 4.5, Chloride Level 97L, Carbon Dioxide Level 33H, Anion Gap 8, Blood Urea Nitrogen 13, Creatinine 0.91, Estimat Glomerular Filtration Rate > 60, BUN/Creatinine Ratio 14, Glucose Level 269H, Calcium Level 9.4, Corrected Calcium 10.0, Phosphorus Level 3.0, Magnesium Level 1.6, Total Bilirubin 0.3, Aspartate Amino Transf (AST/SGOT) 12, Alanine Aminotransferase (ALT/SGPT) 8, Alkaline Phosphatase 125, Total Protein 7.1, Albumin 3.3, Triglycerides Level 136 Microbiology 03/09/19 Gram Stain, Resulted Pending 03/09/19 Sputum Culture - Preliminary, Resulted ECG Impression ECG Initial ECG Rhythm: Normal Sinus Initial ECG Impression: Nonspecific Changes A/P-Cardiology Assessment/Admission Diagnosis Acute respiratory failure, COPD exacerbation, Possible acute diastolic congestive heart failure, Diabetes, Active smoking, Hyperlipidemia, Hypercalcemia Plan Acute respiratory failure, COPD exacerbation. Intubated/ventilated. COPD exacerbation, Possible acute diastolic congestive heart failure, add BNP to the labs. Echocardiogram done 03/09/2019 shows normal LV function with mild to moderate diastolic dysfunction. Severe pulmonary hypertension. Positive troponin, likely type II myocardial infarction due to acute respiratory failure. Patient has significant risk factors for CAD including diabetes and active smoking. acute coronary syndrome due to plaque rupture cannot be ruled out. Patient will require coronary angiography once more stable respiratory- [place]. I will discuss with Dr. Silva. Diabetes, Active smoking, Hyperlipidemia, Hypercalcemia Thank you for your consultation. Please call me if you have any questions. Ceasar Zepeda MD, FACP, FACC, FSCAI, FHRS, CCDS Interventional Cardiology Cardiac Electrophysiology Vascular Medicine and Endovascular Interventions Clinical Quality Measures DVT/VTE Risk/Contraindication: Risk Factor Score Per Nursin RFS Level Per Nursing on Admit: 4+=Very High Nick ZEPEDA MD Mar 09, 2019 10:53 am
[2019-03-09] MEDS: PROPOFOL DRIP (ICU) 100 ML IV SCH ×2 (11:02→16:55)
--- NOTE | 2019-03-09 13:45 | NUR ---
Pastoral care visit, offered support and encouragement to family at bedside.
--- NOTE | 2019-03-09 14:21 | History & Physical ---
HPI History of Present Illness: 53 yo female brought to ER by EMS called by her daughter with worsening shortness of breath and confusion, found to be in severe respiratory failure with history of COPD. Required intubation. No family present this am, information from ER chart. Exam Limitations: clinical condition Date seen by provider: Mar 09, 2019 Time Seen by Provider: 09:50 Attending Physician Van Iglesias MD [place] [place] Consult Date of Admission Mar 09, 2019 at 00:40 Home Medications Home Medications Reviewed patient Home Medication Reconciliation performed by pharmacy medication reconciliations chemical lab technician and/or nursing. Patients Allergies have been reviewed. Allergies Coded Allergies: NKANo Known Allergies (Unverified Allergy, Mild, 05/01/09) UAY-Wqullh-Pmcfpu Hx Patient Social History Alcohol Use: Past History Recreational Drug Use: No (DENIES) Smoking Status: Current Everyday Smoker (1 PPD) Type Used: Cigarettes 2nd Hand Smoke Exposure: Yes Recent Hopitalizations: No Immunizations Up To Date Tetanus Booster (TDap): Unknown Date of Pneumonia Vaccine: Aug 22, 2018 Past Medical History PMHx: COPD with baseline oxygen NIDDM HTN Obesity Hypothyroidism Family Medical History Family History: Cardiovascular disease 19 MOTHER, Onset:Unknown Diabetes mellitus 19 MOTHER, Onset:Unknown Review of Systems (CHC) Constitutional: other (unable to obtain due to patient condition) Reviewed Test Results Reviewed Test Results Lab Laboratory Tests Test 03/09/19 00:02 03/09/19 01:31 03/09/19 01:45 03/09/19 04:15 Range/Units White Blood Count 7.4 4.3-11.0 10^3/uL Red Blood Count 5.73 4.35-5.85 10^6/uL Hemoglobin 15.3 11.5-16.0 G/DL Hematocrit 53 H 35-52 % Mean Corpuscular Volume 92 80-99 FL Mean Corpuscular Hemoglobin 27 25-34 PG Mean Corpuscular Hemoglobin Concent 29 L 32-36 G/DL Red Cell Distribution Width 16.6 H 10.0-14.5 % Platelet Count 190 130-400 10^3/uL Mean Platelet Volume 9.5 7.4-10.4 FL Neutrophils (%) (Auto) 75 42-75 % Lymphocytes (%) (Auto) 18 12-44 % Monocytes (%) (Auto) 6 0-12 % Eosinophils (%) (Auto) 0 0-10 % Basophils (%) (Auto) 0 0-10 % Neutrophils # (Auto) 5.6 1.8-7.8 X 10^3 Lymphocytes # (Auto) 1.4 1.0-4.0 X 10^3 Monocytes # (Auto) 0.5 0.0-1.0 X 10^3 Eosinophils # (Auto) 0.0 0.0-0.3 10^3/uL Basophils # (Auto) 0.0 0.0-0.1 10^3/uL Prothrombin Time 12.7 12.2-14.7 SEC INR Comment 0.9 0.8-1.4 Activated Partial Thromboplast Time 27 24-35 SEC Blood Gas Puncture Site LEFT RADIAL RIGHT RADIAL RIGHT RADIAL Blood Gas Patient Temperature 97.0 95.6 97.1 Arterial Blood pH 7.16 *L 7.23 *L 7.29 *L 7.37-7.43 Arterial Blood Partial Pressure CO2 120 *H 88 *H 77 *H 35-45 MMHG Arterial Blood Partial Pressure O2 94 H 201 H 58 L 79-93 MMHG Arterial Blood HCO3 42 *H 36 H 37 H 23-27 MMOL/L Arterial Blood Total CO2 45.6 H 38.5 H 39.3 H 21.0-31.0 MMOL/L Arterial Blood Oxygen Saturation 97 100 91 L 94-100 % Arterial Blood Base Excess 12.8 H 8.4 H 10.1 H -2.5-2.5 MMOL/L Da Test POSITIVE POSITIVE POSITIVE Blood Gas Ventilator Setting NO YES YES Blood Gas Inspired Oxygen 100% BIPAP 50% 50% Sodium Level 140 135-145 MMOL/L Potassium Level 4.8 3.6-5.0 MMOL/L Chloride Level 92 L 98-107 MMOL/L Carbon Dioxide Level 36 H 21-32 MMOL/L Anion Gap 12 5-14 MMOL/L Blood Urea Nitrogen 11 7-18 MG/DL Creatinine 0.84 0.60-1.30 MG/DL Estimat Glomerular Filtration Rate > 60 BUN/Creatinine Ratio 13 Glucose Level 253 H 70-105 MG/DL Lactic Acid Level 1.39 0.50-2.00 MMOL/L Calcium Level 10.5 H 8.5-10.1 MG/DL Corrected Calcium 10.6 H 8.5-10.1 MG/DL Magnesium Level 2.0 1.6-2.4 MG/DL Total Bilirubin 0.4 0.1-1.0 MG/DL Aspartate Amino Transf (AST/SGOT) 15 5-34 U/L Alanine Aminotransferase (ALT/SGPT) 10 0-55 U/L Alkaline Phosphatase 161 H 40-136 U/L Total Creatine Kinase 83 29-168 U/L Creatine Kinase MB 5.0 <6.6 NG/ML Troponin I 0.107 H <0.028 NG/ML B-Type Natriuretic Peptide 1032.1 H <100.0 PG/ML Total Protein 8.7 H 6.4-8.2 GM/DL Albumin 3.9 3.2-4.5 GM/DL Free Thyroxine 0.92 0.70-1.48 NG/DL TSH [place] Testing 0.29 L 0.35-4.94 UIU/ML Serum Alcohol < 10 <10 MG/DL Urine Color JONNIE H Urine Clarity SLIGHTLY CLOUDY Urine pH 6 5-9 Urine Specific [place] 1.025 H 1.016-1.022 Urine Protein 4+ NEGATIVE Urine Glucose (UA) 1+ H NEGATIVE Urine Ketones 1+ H NEGATIVE Urine Nitrite POSITIVE H NEGATIVE Urine Bilirubin 1+ H NEGATIVE Urine Urobilinogen 4 H NORMAL MG/DL Urine Leukocyte Esterase 1+ H NEGATIVE Urine RBC (Auto) 1+ H NEGATIVE Urine RBC NONE /HPF Urine WBC 2-5 /HPF Urine Squamous Epithelial Cells 10-25 H /HPF Urine Crystals NONE /LPF Urine Bacteria LARGE H /HPF Urine Casts PRESENT /LPF Urine Hyaline Casts 2-5 H /LPF Urine Mucus LARGE H /LPF Urine Culture Indicated CULTURE PENDING Urine Opiates Screen NEGATIVE NEGATIVE Urine Oxycodone Screen NEGATIVE NEGATIVE Urine Methadone Screen NEGATIVE NEGATIVE Urine Propoxyphene Screen NEGATIVE NEGATIVE Urine Barbiturates Screen NEGATIVE NEGATIVE Ur Tricyclic Antidepressants Screen NEGATIVE NEGATIVE Urine Phencyclidine Screen NEGATIVE NEGATIVE Urine Amphetamines Screen NEGATIVE NEGATIVE Urine Methamphetamines Screen NEGATIVE NEGATIVE Urine Benzodiazepines Screen NEGATIVE NEGATIVE Urine Cocaine Screen NEGATIVE NEGATIVE Urine Cannabinoids Screen NEGATIVE NEGATIVE Test 03/09/19 06:02 03/09/19 08:05 03/09/19 08:15 Range/Units Troponin I 0.078 H <0.028 NG/ML Blood Gas Puncture Site L RADIAL Blood Gas Patient Temperature 97.8 Arterial Blood pH 7.32 *L 7.37-7.43 Arterial Blood Partial Pressure CO2 75 *H 35-45 MMHG Arterial Blood Partial Pressure O2 61 L 79-93 MMHG Arterial Blood HCO3 38 H 23-27 MMOL/L Arterial Blood Total CO2 40.3 H 21.0-31.0 MMOL/L Arterial Blood Oxygen Saturation 92 L 94-100 % Arterial Blood Base Excess 11.6 H -2.5-2.5 MMOL/L Da Test YES-POS Blood Gas Ventilator Setting YES Blood Gas Inspired Oxygen 55% White Blood Count 7.0 4.3-11.0 10^3/uL Red Blood Count 5.04 4.35-5.85 10^6/uL Hemoglobin 13.5 11.5-16.0 G/DL Hematocrit 46 35-52 % Mean Corpuscular Volume 92 80-99 FL Mean Corpuscular Hemoglobin 27 25-34 PG Mean Corpuscular Hemoglobin Concent 29 L 32-36 G/DL Red Cell Distribution Width 16.5 H 10.0-14.5 % Platelet Count 158 130-400 10^3/uL Mean Platelet Volume 9.3 7.4-10.4 FL Neutrophils (%) (Auto) 94 H 42-75 % Lymphocytes (%) (Auto) 5 L 12-44 % Monocytes (%) (Auto) 1 0-12 % Eosinophils (%) (Auto) 0 0-10 % Basophils (%) (Auto) 0 0-10 % Neutrophils # (Auto) 6.5 1.8-7.8 X 10^3 Lymphocytes # (Auto) 0.4 L 1.0-4.0 X 10^3 Monocytes # (Auto) 0.1 0.0-1.0 X 10^3 Eosinophils # (Auto) 0.0 0.0-0.3 10^3/uL Basophils # (Auto) 0.0 0.0-0.1 10^3/uL Neutrophils % (Manual) 94 % Lymphocytes % (Manual) 2 % Monocytes % (Manual) 0 % Eosinophils % (Manual) 0 % Basophils % (Manual) 0 % Band Neutrophils 4 % Anisocytosis SLIGHT Sodium Level 138 135-145 MMOL/L Potassium Level 4.5 3.6-5.0 MMOL/L Chloride Level 97 L 98-107 MMOL/L Carbon Dioxide Level 33 H 21-32 MMOL/L Anion Gap 8 5-14 MMOL/L Blood Urea Nitrogen 13 7-18 MG/DL Creatinine 0.91 0.60-1.30 MG/DL Estimat Glomerular Filtration Rate > 60 BUN/Creatinine Ratio 14 Glucose Level 269 H 70-105 MG/DL Calcium Level 9.4 8.5-10.1 MG/DL Corrected Calcium 10.0 8.5-10.1 MG/DL Phosphorus Level 3.0 2.3-4.7 MG/DL Magnesium Level 1.6 1.6-2.4 MG/DL Total Bilirubin 0.3 0.1-1.0 MG/DL Aspartate Amino Transf (AST/SGOT) 12 5-34 U/L Alanine Aminotransferase (ALT/SGPT) 8 0-55 U/L Alkaline Phosphatase 125 40-136 U/L Total Protein 7.1 6.4-8.2 GM/DL Albumin 3.3 3.2-4.5 GM/DL Triglycerides Level 136 <150 MG/DL Laboratory Tests 03/09/19 00:02 03/09/19 08:15 Radiology CXR 03/09: No acute cardiopulmonary process Physical Exam-(CHC) Physical Exam Vital Signs VS - Last 72 Hours, by Label 03/09/19 03/09/19 03/09/19 03/09/19 00:17 00:40 02:13 03:12 Pulse 73 54 65 95 Resp 22 16 16 B/P (MAP) 119/63 Pulse Ox 100 100 100 O2 Delivery Mechanical Ventilator O2 Flow Rate 100.00 30.00 FiO2 100 03/09/19 03/09/19 03/09/19 03/09/19 03:15 03:19 03:30 03:30 Temp 97.7 Pulse 96 81 78 Resp 19 B/P (MAP) 122/70 (87) 99/63 (75) Pulse Ox 90 94 91 92 O2 Delivery Mechanical Ventilator Mechanical Ventilator Mechanical Ventilator O2 Flow Rate 50.00 50.00 FiO2 50 50 03/09/19 03/09/19 03/09/19 03/09/19 03:45 04:00 04:00 04:15 Pulse 75 75 73 Resp 20 20 20 B/P (MAP) 98/57 (71) 98/57 (71) 95/60 (72) Pulse Ox 90 91 91 90 O2 Delivery Mechanical Ventilator Mechanical Ventilator Mechanical Ventilator Mechanical Ventilator O2 Flow Rate 50.00 50.00 50.00 50.00 03/09/19 03/09/19 03/09/19 03/09/19 04:21 04:30 04:45 05:00 Pulse 63 74 77 75 Resp B/P (MAP) 88/46 (60) 93/56 (68) 97/55 (69) Pulse Ox 90 91 91 91 O2 Delivery Mechanical Ventilator Mechanical Ventilator Mechanical Ventilator O2 Flow Rate 50.00 50.00 50.00 FiO2 50 03/09/19 03/09/19 03/09/19 03/09/19 05:15 05:30 05:45 06:00 Pulse 75 80 80 78 Resp B/P (MAP) 96/56 (69) 106/59 (75) 94/56 (69) 104/68 (80) Pulse Ox 92 92 92 93 O2 Delivery Mechanical Ventilator Mechanical Ventilator Mechanical Ventilator Mechanical Ventilator O2 Flow Rate 50.00 50.00 50.00 50.00 03/09/19 03/09/19 03/09/19 03/09/19 06:10 06:15 06:30 06:45 Pulse 81 81 87 83 Resp 25 B/P (MAP) 107/61 (76) 95/54 (68) 90/49 (63) Pulse Ox 93 92 91 89 O2 Delivery Mechanical Ventilator Mechanical Ventilator Mechanical Ventilator O2 Flow Rate 50.00 50.00 50.00 FiO2 50 03/09/19 03/09/19 03/09/19 03/09/19 07:00 07:00 08:00 08:00 Pulse 85 85 85 Resp 25 25 B/P (MAP) 101/58 (72) 98/55 (69) Pulse Ox 92 91 O2 Delivery Mechanical Ventilator Mechanical Ventilator Mechanical Ventilator O2 Flow Rate 55.00 55.00 FiO2 55 03/09/19 03/09/19 03/09/19 03/09/19 08:53 09:00 09:31 10:00 Temp 98.4 Pulse 80 84 85 Resp 25 26 25 B/P (MAP) 102/58 (73) 104/60 (75) Pulse Ox 93 92 93 O2 Delivery Mechanical Ventilator Mechanical Ventilator O2 Flow Rate 55.00 55.00 FiO2 50 03/09/19 03/09/19 03/09/19 03/09/19 11:00 11:01 11:02 12:00 Temp 99.0 Pulse 80 84 Resp 20 B/P (MAP) 114/66 (82) 114/66 113/67 (82) Pulse Ox 94 95 O2 Delivery Mechanical Ventilator Mechanical Ventilator O2 Flow Rate 55.00 55.00 03/09/19 03/09/19 03/09/19 03/09/19 12:00 12:32 13:00 13:45 Pulse 86 84 75 Resp 25 26 B/P (MAP) 126/67 (86) Pulse Ox 92 92 O2 Delivery Mechanical Ventilator Mechanical Ventilator O2 Flow Rate 55.00 FiO2 55 50 Capillary Refill : General Appearance: other (intubated, sedated) Respiratory: decreased breath sounds Cardiovascular: regular rate, rhythm, no murmur Gastrointestinal: normal bowel sounds, soft Extremities: no pedal edema Skin: normal color Assessment/Plan Assessment/Plan Admission Status: Inpatient Order (span 2 midnights) Reason for Inpatient Admission: Acute on chronic hypoxic hypercapneic respiratory failure requiring intubation. (1) Respiratory acidosis Status: Acute Assessment & Plan: Acute, severe with pH 7.16 on admit. Improving s/p safe and vault mechanic ventilation. (2) Acute on chronic respiratory failure with hypoxia and hypercapnia Status: Acute Assessment & Plan: Dr. Silva consulted, patient intubated and on solumedrol and ceftriaxone. No clear evidence of pneumonia on chest x-ray. CTA pending. (3) HTN (hypertension) Status: Chronic Assessment & Plan: BP borderline to low currently. Qualifiers: Qualified Codes: I10 - Essential (primary) hypertension (4) Non-insulin treated type 2 diabetes mellitus Status: Chronic Assessment & Plan: ICU sliding scale insulin. (5) Hypothyroidism Status: Chronic (6) Hypercalcemia Status: Acute Assessment & Plan: PTH pending. (7) DVT prophylaxis Status: Acute Assessment & Plan: Enoxaparin Clinical Quality Measures DVT/VTE Risk/Contraindication: Risk Factor Score Per Nursin RFS Level Per Nursing on Admit: 4+=Very High VAN IGLESIAS MD Mar 09, 2019 14:21
[2019-03-09] MEDS: inSUlin ASPART (NovoLOG) 1 UNIT/0.01 ML (CHARGE PER UNIT) SQ SCH (17:02)
[2019-03-09] MEDS: cefTRIAXone 1,000 MG/SWFI 10 ML IV PUSH IV SCH ×2 (20:40)
[2019-03-09] MEDS ORDERED: AZITHROMYCIN 500 MG/NS 250 ML IVPB IV SCH ×2 (21:00)
[2019-03-10] VITALS (30 sets, daily range): BP systolic 115–190; BP diastolic 62–116
[2019-03-10] MEDS: methylPREDNISolone 40 MG/ML (Solu-MEDROL) VIAL IV SCH ×5 (00:39→23:50)
[2019-03-10] MEDS: inSUlin ASPART (NovoLOG) 1 UNIT/0.01 ML (CHARGE PER UNIT) SQ SCH ×5 (00:39→23:53)
[2019-03-10] MEDS: RT-ALBUTEROL/IPRATROPIUM 3 ML (DUONEB) VIAL INH SCH ×6 (02:54→21:03)
[2019-03-10 03:25] LABS: ABG BASE EXCESS 13.9 MMOL/L (-2.5-2.5); ABG OXYGEN SATURATION 92 % (94-100); ABG PCO2 66 MMHG (35-45); ABG PH 7.39 (7.37-7.43); ABG PO2 61 MMHG (79-93); ABG TCO2 41.7 MMOL/L (21.0-31.0); ALLENS TEST POSITIVE
[2019-03-10] MEDS: PROPOFOL DRIP (ICU) 100 ML IV SCH (03:25)
[2019-03-10 03:26] LABS: PATIENT TEMP 97.3; VENTILATOR YES
[2019-03-10 03:50] LABS: BASOPHILS % (AUTO) 0 % (0-10); EOSINOPHILS # (AUTO) 0.3 10^3/uL (0.0-0.3); EOSINOPHILS % (AUTO) 3 % (0-10); HEMATOCRIT 44 % (35-52); HEMOGLOBIN 12.8 G/DL (11.5-16.0); LYMPHOCYTES # (AUTO) 0.4 X 10^3 (1.0-4.0); LYMPHOCYTES % (AUTO) 5 % (12-44); MEAN CORPUSCULAR HEMOGLOBIN 27 PG (25-34); MEAN CORPUSCULAR HGB CONC 29 G/DL (32-36); MEAN CORPUSCULAR VOLUME 92 FL (80-99); MEAN PLATELET VOLUME 10.3 FL (7.4-10.4); MONOCYTES # (AUTO) 0.3 X 10^3 (0.0-1.0); MONOCYTES % (AUTO) 5 % (0-12); NEUTROPHILS # (AUTO) 6.4 X 10^3 (1.8-7.8); NEUTROPHILS % (AUTO) 87 % (42-75); PLATELET COUNT 131 10^3/uL (130-400); RED CELL DISTRIBUTION WIDTH 16.1 % (10.0-14.5); WHITE BLOOD COUNT 7.3 10^3/uL (4.3-11.0)
[2019-03-10] MEDS: KCL 20 MEQ TAB (K-DUR) PO SCH (04:12)
[2019-03-10] MEDS: MAGNESIUM 1 GM/100 ML IVPB 100 ML IV SCH (04:12)
[2019-03-10] MEDS: POTASSIUM CL 10MEQ/50ML IVPB 50 ML IV SCH (04:12)
[2019-03-10 04:16] LABS: ALANINE AMINOTRANSFERASE 7 U/L (0-55); ALKALINE PHOSPHATASE 96 U/L (40-136); BILIRUBIN,TOTAL 0.2 MG/DL (0.1-1.0); BUN/CREATININE RATIO 22; CALCIUM 10.1 MG/DL (8.5-10.1); CARBON DIOXIDE 32 MMOL/L (21-32); CHLORIDE 97 MMOL/L (98-107); CREATININE SERUM 0.82 MG/DL (0.60-1.30); GFR ESTIMATED > 60; GLUCOSE 194 MG/DL (70-105); MAGNESIUM 2.1 MG/DL (1.6-2.4); PHOSPHORUS 2.5 MG/DL (2.3-4.7); POTASSIUM 4.7 MMOL/L (3.6-5.0); SODIUM 139 MMOL/L (135-145); TOTAL PROTEIN 6.7 GM/DL (6.4-8.2)
[2019-03-10] MEDS ORDERED: NS (IVPB) 50 ML ONE (05:24)
[2019-03-10] MEDS ORDERED: NS IV 1000 ML 1,000 ML ONE (05:27)
--- NOTE | 2019-03-10 05:39 | Pulmonary Progress Note ---
Subjective Time Seen by a Provider: 06:24 Subjective/Events-last exam PT is sedated on vent Sepsis Event Evaluation Height, Weight, BMI Height: 5'6.00" Weight: 224lbs. 8.0oz. 101.336858xu; 33.9 BMI Method:Estimated Focused Exam Lactate Level 03/09/19 00:02: Lactic Acid Level 1.39 Exam Exam Vital Signs Date Time Temp Pulse Resp B/P (MAP) Pulse Ox O2 Delivery O2 Flow Rate FiO2 03/10/19 05:00 73 26 120/68 (85) 96 Mechanical Ventilator 55.00 03/10/19 04:00 75 26 128/71 (90) 95 Mechanical Ventilator 55.00 03/10/19 03:57 97.8 03/10/19 03:56 94 Mechanical Ventilator 55 03/10/19 03:25 142/87 03/10/19 03:00 75 25 125/72 (89) 91 Mechanical Ventilator 55.00 03/10/19 02:54 78 26 90 55 03/10/19 02:00 70 26 122/68 (86) 92 Mechanical Ventilator 55.00 03/10/19 01:00 76 03/10/19 01:00 76 25 119/65 (83) 95 Mechanical Ventilator 55.00 03/10/19 00:37 97.7 03/10/19 00:00 95 Mechanical Ventilator 55 03/10/19 00:00 80 25 123/67 (85) 94 Mechanical Ventilator 55.00 03/09/19 23:00 80 25 122/65 (84) 94 Mechanical Ventilator 55.00 03/09/19 22:27 83 26 92 55 03/09/19 22:00 82 25 121/66 (84) 94 Mechanical Ventilator 55.00 03/09/19 21:00 83 24 124/67 (86) 94 Mechanical Ventilator 55.00 03/09/19 20:00 Mechanical Ventilator 55 03/09/19 20:00 85 26 133/69 (90) 92 Mechanical Ventilator 55.00 03/09/19 20:00 97.9 03/09/19 19:00 80 25 119/64 (82) 92 Mechanical Ventilator 55.00 03/09/19 19:00 80 03/09/19 18:03 77 26 91 55 03/09/19 18:00 77 26 127/63 (84) 91 Mechanical Ventilator 55.00 03/09/19 17:00 78 7 120/69 (86) 92 Mechanical Ventilator 55.00 03/09/19 16:55 123/65 03/09/19 16:00 79 19 124/68 (86) 91 Mechanical Ventilator 55.00 03/09/19 15:35 Mechanical Ventilator 55 03/09/19 15:34 97.6 03/09/19 14:00 92 15 117/58 (77) 92 Mechanical Ventilator 55.00 03/09/19 13:45 75 26 92 50 03/09/19 13:00 84 25 126/67 (86) 92 Mechanical Ventilator 55.00 03/09/19 12:32 86 03/09/19 12:00 Mechanical Ventilator 55 03/09/19 12:00 84 20 113/67 (82) 95 Mechanical Ventilator 55.00 03/09/19 11:02 114/66 03/09/19 11:01 99.0 03/09/19 11:00 80 25 114/66 (82) 94 Mechanical Ventilator 55.00 03/09/19 10:00 85 25 104/60 (75) 93 Mechanical Ventilator 55.00 03/09/19 09:31 84 26 92 50 03/09/19 09:00 80 25 102/58 (73) 93 Mechanical Ventilator 55.00 03/09/19 08:53 98.4 03/09/19 08:00 Mechanical Ventilator 55 03/09/19 08:00 85 25 98/55 (69) 91 Mechanical Ventilator 55.00 03/09/19 07:00 85 03/09/19 07:00 85 25 101/58 (72) 92 Mechanical Ventilator 55.00 03/09/19 06:45 83 25 90/49 (63) 89 Mechanical Ventilator 50.00 03/09/19 06:30 87 26 95/54 (68) 91 Mechanical Ventilator 50.00 03/09/19 06:15 81 25 107/61 (76) 92 Mechanical Ventilator 50.00 03/09/19 06:10 81 26 93 50 03/09/19 06:00 78 19 104/68 (80) 93 Mechanical Ventilator 50.00 03/09/19 05:45 80 20 94/56 (69) 92 Mechanical Ventilator 50.00 I & O 03/10/19 07:00 Intake Total 1815 ml Output Total 1500 ml Balance 315 ml Height & Weight Height: 5'6.00" Weight: 224lbs. 8.0oz. 101.852781ri; 33.9 BMI Method:Estimated General Appearance: No Apparent Distress, WD/WN HEENT: PERRL/EOMI, Normal ENT Inspection, Pharynx Normal Neck: Full Range of Motion, Non Tender, Supple Respiratory: Chest Non Tender, No Accessory Muscle Use, No Respiratory Distress, Decreased Breath Sounds Cardiovascular: Regular Rate, Rhythm, No JVD, No Murmur Capillary Refill: Less Than 3 Seconds Gastrointestinal: normal bowel sounds, soft Extremity: Normal Capillary Refill, Normal Inspection, No Pedal Edema Neurologic/Psychiatric: Other (sedated on vent) Skin: Normal Color, Warm/Dry Lymphatic: No Adenopathy Results Lab Laboratory Tests 03/09/19 00:02 03/09/19 08:15 03/10/19 02:55 Assessment/Plan Assessment/Plan Acute respiratory failure - -Continue vent -- change to SIMV/PS -D/C diprivan -Repeat ABG at 730am -No leukocytosis, No fever -CTA of chest - reviewed Elevated troponin and BNP -Check CTA to R/o PE Grade 1 diastolic cardiomyopathy per Echo COPDAE -Solumedrol -- change to 40 IV Q 6 -SVNs Q 4 UTI -Rocephin -Cultures pending Hypercalemia, and elevated alk phos -Check PTH, YURI, and ionized calcium -Does not appear pt was on HCTZ or calcium supplements at home WESLEY ALMAGUER DO Mar 10, 2019 05:39
[2019-03-10] MEDS: DEXMEDETOMIDINE INJECTION 200 MCG in NS (IVPB) 50 ML IV SCH ×2 (05:42→08:26)
[2019-03-10] MEDS: NS IV 1000 ML 1,000 ML IV SCH (05:50)
[2019-03-10] MEDS: RT-BUDESONIDE NEBS 0.5 MG/2ML (PULMICORT) AMP INH SCH ×2 (06:27→18:20)
[2019-03-10] MEDS: ENOXAPARIN 40 MG/0.4 ML (LOVENOX) SYR SC SCH (08:26)
[2019-03-10 08:46] LABS: ABG OXYGEN SATURATION 93 % (94-100); ABG PCO2 66 MMHG (35-45); ABG PH 7.39 (7.37-7.43); ABG PO2 66 MMHG (79-93); ABG TCO2 40.6 MMOL/L (21.0-31.0); ALLENS TEST YES-POS
[2019-03-10 08:47] LABS: INSPIRED O2 30%; PATIENT TEMP 98.7; VENTILATOR YES
--- NOTE | 2019-03-10 09:43 | Diagnostic Imaging Report ---
INDICATION: Short of air. COMPARISON: 03/09/2019. FINDINGS: The upright chest shows normal heart size and vascularity. The lungs are clear. There is no effusion or pneumothorax. The ET tube is in good position. IMPRESSION: No acute abnormality is seen. Dictated by: Dictated on workstation # [id number]
--- NOTE | 2019-03-10 10:05 | Physician Query Clarification ---
PQ-Uncertain Diagnosis Admission/Discharge Admission Date: Mar 09, 2019 at 00:40 Discharge Date: The medical record reflects the following clinical scenario: History/Risk Factors: Acute on chronic respiratory failure with hypoxia and hypercapnia. Acute diastolic congestive heart failure. COPD Clinical Findings: Temp-97.5. Chest xray-No acute cardiopulmonary process. Treatment: Started on Vancomycin and Azithromycin, but discontinued by Dr. Silva. Question: Is Pneumonia a clinically valid diagnosis? Pneumonia was documented in the 03/09 ED record impression by Dr. Nevarez. with no further documentation in the medical record. Please document a response in Progress Note or Discharge Summary. 1. Yes, clinically valid, condition resolved. 2. No, condition ruled out. 3. Other, with explanation of clinical findings. 4. Undetermined, no explanation for clinical findings. PHYSICIAN RESPONSE Diagnosis clinically valid: No, conditon ruled out Please remember a lack of response to the above will prompt a phone page by CDI/Coding staff. In responding to this query, please exercise your independent professional judgment. The purpose of this communication is to more accurately reflect the complexity of your patients condition. The fact that a question is asked does not imply that any particular answer is desired or expected. Thank you for your timely response to this clarification. Requestors name: Lashell Jeffery [facility] Phone # ext [phone] or [phone] THIS PHYSICIAN QUERY FORM IS A PERMANENT PART OF THE MEDICAL RECORD LASHELL JEFFERY Mar 10, 2019 10:05 VAN GONZALEZ MD Mar 10, 2019 17:07
--- NOTE | 2019-03-10 10:33 | Physician Query Clarification ---
PQ-Conflicting Diagnosis Admission/Discharge Admission Date: Mar 09, 2019 at 00:40 Discharge Date: The medical record reflects the following clinical scenario: History/Risk Factors: Abnormal Urine analysis Clinical Findings: Urine Spec Lee 102.5,Urine protein 4+, Urine glucose 1+, Urine Ketones 1+, Urine Nitrite-Positive, Urine Bilirubin 1+,Urine Urobilinogen 4, Urine Leukocyte Esterase 1+, Urine RBC 1+, Urine Squamous Epith Cells 10-25, Urine Bacteria Large, Hyaline casts 2-5, Urine Mucus Large. Urine Culture 3 or more isolates 50,000 CFU/ML, suggesting probable collection contamination with skin raj. Treatment: IV Rocephin. Question: Do you agree with the impression of the UTI per Dr. Nevarez-ED record and Dr. Silva's consult. Please document a response in Progress Note or Discharge Summary. 1. Yes 2. No 3. Other, with explanation of clinical findings 4. Clinically undetermined, no explanation for clinical findings. PHYSICIAN RESPONSE Do you agree w/Consulting Dx?: No Explanation of clincal finding Culture negative Please remember a lack of response to the above will prompt a phone page by CDI/Coding staff. In responding to this query, please exercise your independent professional judgment. The purpose of this communication is to more accurately reflect the complexity of your patients condition. The fact that a question is asked does not imply that any particular answer is desired or expected. Thank you for your timely response to this clarification. Requestors name: [ ] Phone # [ ] THIS PHYSICIAN QUERY FORM IS A PERMANENT PART OF THE MEDICAL RECORD CHLOE JEFFERY Mar 10, 2019 10:33 VAN GONZALEZ MD Mar 10, 2019 17:10
--- NOTE | 2019-03-10 10:55 | Physician Query Clarification ---
PQ-Uncertain Diagnosis Admission/Discharge Admission Date: Mar 09, 2019 at 00:40 Discharge Date: The medical record reflects the following clinical scenario: History/Risk Factors: Shortness of breath and confusion. Clinical Findings: T 97.5, P 73, Resp 30, BP 148/75, WBC 7.4, Lactic acid 1.39 and blood culture-no growth Treatment: IV Rocephin. Question: Is Sepsis a clinically valid diagnosis? Sepsis was documented in the ED record-Dr. Nevarez with no further documentation in the medical record. Please document a response in Progress Note or Discharge Summary. 1. Yes, clinically valid, condition resolved. 2. No, condition ruled out. 3. Other, with explanation of clinical findings. 4. Undetermined, no explanation for clinical findings. PHYSICIAN RESPONSE Diagnosis clinically valid: No, conditon ruled out Please remember a lack of response to the above will prompt a phone page by CDI/Coding staff. In responding to this query, please exercise your independent professional judgment. The purpose of this communication is to more accurately reflect the complexity of your patients condition. The fact that a question is asked does not imply that any particular answer is desired or expected. Thank you for your timely response to this clarification. Requestors name: Lashell Jeffery [facility] Phone # ext [phone] or [phone] THIS PHYSICIAN QUERY FORM IS A PERMANENT PART OF THE MEDICAL RECORD LASHELL JEFFERY Mar 10, 2019 10:55 VAN GONZALEZ MD Mar 10, 2019 20:28
--- NOTE | 2019-03-10 13:24 | Cardiology Progress Note ---
Cardiology SOAP Progress Note Subjective: Intubated/ventilated. Objective: I&O/Vital Signs 03/10/19 03/10/19 03/10/19 03/10/19 02:00 02:54 03:00 03:25 Pulse 70 78 75 Resp 26 26 25 B/P (MAP) 122/68 (86) 125/72 (89) 142/87 Pulse Ox 92 90 91 O2 Delivery Mechanical Ventilator Mechanical Ventilator O2 Flow Rate 55.00 55.00 FiO2 55 03/10/19 03/10/19 03/10/19 03/10/19 03:56 03:57 04:00 05:00 Temp 97.8 Pulse 75 73 Resp 26 26 B/P (MAP) 128/71 (90) 120/68 (85) Pulse Ox 94 95 96 O2 Delivery Mechanical Ventilator Mechanical Ventilator Mechanical Ventilator O2 Flow Rate 55.00 55.00 FiO2 55 03/10/19 03/10/19 03/10/19 03/10/19 06:00 06:27 07:00 07:00 Pulse 85 69 78 79 Resp 17 16 14 B/P (MAP) 149/96 (113) 151/92 (111) Pulse Ox 93 94 95 O2 Delivery Mechanical Ventilator Mechanical Ventilator O2 Flow Rate 55.00 55.00 FiO2 55 03/10/19 03/10/19 03/10/19 03/10/19 08:00 08:00 08:00 09:00 Temp 98.7 Pulse 70 70 Resp 15 13 B/P (MAP) 164/95 (118) 172/102 (125) Pulse Ox 93 93 O2 Delivery Mechanical Ventilator Mechanical Ventilator Mechanical Ventilator O2 Flow Rate 55.00 55.00 FiO2 55 03/10/19 03/10/19 03/10/19 03/10/19 10:00 10:15 11:00 12:00 Pulse 79 72 77 82 Resp 21 21 20 21 B/P (MAP) 182/104 (130) 183/95 (124) Pulse Ox 93 94 92 93 O2 Delivery Mechanical Ventilator Mechanical Ventilator Mechanical Ventilator O2 Flow Rate 55.00 55.00 55.00 FiO2 55 03/10/19 03/10/19 12:00 12:09 Temp 98.3 Pulse 80 03/10/19 00:00 Intake Total 1100 ml Output Total 900 ml Balance 200 ml Weight (Pounds): 229 Weight (Ounces): 0.0 Weight (Calculated Kilograms): 103.576291 Constitutional: appears stated age, AAO x 3; No apparent distress; well- developed, well-nourished, other (intubated/ventilated.) Respiratory: other (intubated/ventilated.) Cardiovascular: regular rate-rhythm; No irregularly irregular, No extra beats, No parasternal heave is noted, No JVD, No edema, No bradycardia, No tachycardia, No point of maximal impulse, No cardiac thrills are palpable; S1 and S2; No gallop/S3, No gallop/S4, No diastolic murmur, No systolic murmur, No friction rub, No click, No other Gastrointestional: No tender, No soft, No round, No distended, No pulsatile mass, No organomegaly, No guarding, No rebound, No tenderness, No hernia, No mass, No audible bowel sounds, No abnormal bowel sounds, No abdominal bruits, No spleenomegaly, No other Extremities: No normal range of motion, No non-tender, No normal inspection, No pedal edema, No calf tenderness, No normal capillary refill, No pelvis stable, No calf tenderness, No inflammation, No pedal edema, No slow capillary refill, No swelling, No other, No abrasion, No clubbing, No cyanosis, No ecchymosis, No laceration, No no lower extremity edema bilateral, No significant edema, No tenderness, No wound Neurologic/Psychiatric: other (intubated/ventilated.) Skin: No rash, No ulcerations Results/Procedures: Labs Laboratory Tests 03/09/19 16:54: Glucometer 242H 03/10/19 00:33: Glucometer 233H 03/10/19 02:55: White Blood Count 7.3, Red Blood Count 4.72, Hemoglobin 12.8, Hematocrit 44, Mean Corpuscular Volume 92, Mean Corpuscular Hemoglobin 27, Mean Corpuscular Hemoglobin Concent 29L, Red Cell Distribution Width 16.1H, Platelet Count 131, Mean Platelet Volume 10.3, Neutrophils (%) (Auto) 87H, Lymphocytes (%) (Auto) 5L , Monocytes (%) (Auto) 5, Eosinophils (%) (Auto) 3, Basophils (%) (Auto) 0, Neutrophils # (Auto) 6.4, Lymphocytes # (Auto) 0.4L, Monocytes # (Auto) 0.3, Eosinophils # (Auto) 0.3, Basophils # (Auto) 0.0, Sodium Level 139, Potassium Level 4.7, Chloride Level 97L, Carbon Dioxide Level 32, Anion Gap 10, Blood Urea Nitrogen 18, Creatinine 0.82, Estimat Glomerular Filtration Rate > 60, BUN/Creatinine Ratio 22, Glucose Level 194H, Calcium Level 10.1, Corrected Calcium 10.9H, Phosphorus Level 2.5, Magnesium Level 2.1, Total Bilirubin 0.2, Aspartate Amino Transf (AST/SGOT) 9, Alanine Aminotransferase (ALT/SGPT) 7, Alkaline Phosphatase 96, Total Protein 6.7, Albumin 3.0L 03/10/19 03:15: Blood Gas Puncture Site RIGHT RADIAL, Blood Gas Patient Temperature 97.3, Arterial Blood pH 7.39, Arterial Blood Partial Pressure CO2 66H, Arterial Blood Partial Pressure O2 61L, Arterial Blood HCO3 40H, Arterial Blood Total CO2 41.7H , Arterial Blood Oxygen Saturation 92L, Arterial Blood Base Excess 13.9H, Da Test POSITIVE, Blood Gas Ventilator Setting YES, Blood Gas Inspired Oxygen 55% 03/10/19 08:43: Blood Gas Puncture Site RT RAD, Blood Gas Patient Temperature 98.7, Arterial Blood pH 7.39, Arterial Blood Partial Pressure CO2 66H, Arterial Blood Partial Pressure O2 66L, Arterial Blood HCO3 39H, Arterial Blood Total CO2 40.6H, Arterial Blood Oxygen Saturation 93L, Arterial Blood Base Excess 13.0H, Da Test YES-POS, Blood Gas Ventilator Setting YES, Blood Gas Inspired Oxygen 30% 03/10/19 10:18: 03/10/19 11:16: Glucometer 266H Microbiology 03/09/19 Blood Culture - Preliminary, Resulted No growth 03/09/19 Gram Stain - Final, Resulted 03/09/19 Sputum Culture - Preliminary, Resulted 03/09/19 Urine Culture - Final, Complete 3 or more isolates A/P: Assessment/Dx: Acute respiratory failure, COPD exacerbation, Possible acute diastolic congestive heart failure, Diabetes, Active smoking, Hyperlipidemia, Hypercalcemia Plan: Acute respiratory failure, COPD exacerbation. Intubated/ventilated. COPD exacerbation, Possible acute diastolic congestive heart failure, add BNP to the labs. Echocardiogram done 03/09/2019 shows normal LV function with mild to moderate diastolic dysfunction. Severe pulmonary hypertension. Positive troponin, likely type II myocardial infarction due to acute respiratory failure. Patient has significant risk factors for CAD including diabetes and active smoking. acute coronary syndrome due to plaque rupture cannot be ruled out. Patient will require coronary angiography once more stable respiratory- lagos. I will discuss with Dr. Silva. I discussed with the daughter at the bedside and recommended coronary angiography once she is more stable. Diabetes, Active smoking, Hyperlipidemia, Hypercalcemia Thank you for your consultation. Please call me if you have any questions. Ceasar Zepeda MD, FACP, FACC, FSCAI, FHRS, CCDS Interventional Cardiology Cardiac Electrophysiology Vascular Medicine and Endovascular Interventions Focused Exam Lactate Level 03/09/19 00:02: Lactic Acid Level 1.39 Nick ZEPEDA MD Mar 10, 2019 13:24
--- NOTE | 2019-03-10 16:07 | Progress Note ---
Subjective Subjective/Events-last exam Afebrile, remains intubated but is not sedated currently and writes a message that she wants tube out. Focused Exam Lactate Level 03/09/19 00:02: Lactic Acid Level 1.39 Objective Exam Last Set of Vital Signs Vital Signs Date Time Temp Pulse Resp B/P (MAP) Pulse Ox O2 Delivery O2 Flow Rate FiO2 03/10/19 15:00 79 19 180/116 (137) 92 Mechanical Ventilator 55.00 03/10/19 14:02 55 03/10/19 12:00 98.3 Capillary Refill : Less Than 3 Seconds I&O Intake and Output 03/10/19 00:00 Intake Total 1715 ml Output Total 1650 ml Balance 65 ml Intake Oral 0 ml IV Total 1715 ml Output Urine Total 950 ml Gastric Drainage Total 700 ml Daily Weight Change No General: Alert, Mild Distress Lungs: Normal Air Movement Heart: Regular Rate, No Murmurs Results/Procedures Lab Laboratory Tests 03/09/19 16:54: Glucometer 242H 03/10/19 00:33: Glucometer 233H 03/10/19 02:55: White Blood Count 7.3, Red Blood Count 4.72, Hemoglobin 12.8, Hematocrit 44, Mean Corpuscular Volume 92, Mean Corpuscular Hemoglobin 27, Mean Corpuscular Hemoglobin Concent 29L, Red Cell Distribution Width 16.1H, Platelet Count 131, Mean Platelet Volume 10.3, Neutrophils (%) (Auto) 87H, Lymphocytes (%) (Auto) 5L , Monocytes (%) (Auto) 5, Eosinophils (%) (Auto) 3, Basophils (%) (Auto) 0, Neutrophils # (Auto) 6.4, Lymphocytes # (Auto) 0.4L, Monocytes # (Auto) 0.3, Eosinophils # (Auto) 0.3, Basophils # (Auto) 0.0, Sodium Level 139, Potassium Level 4.7, Chloride Level 97L, Carbon Dioxide Level 32, Anion Gap 10, Blood Urea Nitrogen 18, Creatinine 0.82, Estimat Glomerular Filtration Rate > 60, BUN/Creatinine Ratio 22, Glucose Level 194H, Calcium Level 10.1, Corrected Calcium 10.9H, Phosphorus Level 2.5, Magnesium Level 2.1, Total Bilirubin 0.2, Aspartate Amino Transf (AST/SGOT) 9, Alanine Aminotransferase (ALT/SGPT) 7, Alkaline Phosphatase 96, Total Protein 6.7, Albumin 3.0L 03/10/19 03:15: Blood Gas Puncture Site RIGHT RADIAL, Blood Gas Patient Temperature 97.3, Arterial Blood pH 7.39, Arterial Blood Partial Pressure CO2 66H, Arterial Blood Partial Pressure O2 61L, Arterial Blood HCO3 40H, Arterial Blood Total CO2 41.7H , Arterial Blood Oxygen Saturation 92L, Arterial Blood Base Excess 13.9H, Da Test POSITIVE, Blood Gas Ventilator Setting YES, Blood Gas Inspired Oxygen 55% 03/10/19 08:43: Blood Gas Puncture Site RT RAD, Blood Gas Patient Temperature 98.7, Arterial Blood pH 7.39, Arterial Blood Partial Pressure CO2 66H, Arterial Blood Partial Pressure O2 66L, Arterial Blood HCO3 39H, Arterial Blood Total CO2 40.6H, Arterial Blood Oxygen Saturation 93L, Arterial Blood Base Excess 13.0H, Da Test YES-POS, Blood Gas Ventilator Setting YES, Blood Gas Inspired Oxygen 30% 03/10/19 10:18: 03/10/19 11:16: Glucometer 266H Microbiology 03/09/19 Blood Culture - Preliminary, Resulted No growth 03/09/19 MRSA Screen - Final, Complete 03/09/19 Urine Culture - Final, Complete 3 or more isolates Radiology CXR 03/09: No acute cardiopulmonary process Assessment/Plan Assessment/Plan (1) Respiratory acidosis Status: Acute Assessment & Plan: Acute, severe with pH 7.16 on admit. 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 03/10 continues to improve, remains intubated (2) Acute on chronic respiratory failure with hypoxia and hypercapnia Status: Acute Assessment & Plan: Dr. Silva consulted, patient intubated and on solumedrol and ceftriaxone. No clear evidence of pneumonia on chest x-ray. CTA pending. 03/10 CTA with no PE, minimal infiltrate or atelectasis in anterior RUL and posterior RLL (3) HTN (hypertension) Status: Chronic Assessment & Plan: BP borderline to low currently. Qualifiers: Qualified Codes: I10 - Essential (primary) hypertension (4) Non-insulin treated type 2 diabetes mellitus Status: Chronic Assessment & Plan: ICU sliding scale insulin. (5) Hypothyroidism Status: Chronic (6) Hypercalcemia Status: Acute Assessment & Plan: PTH pending. 03/10 PTH high, check vitamin D (7) DVT prophylaxis Status: Acute Assessment & Plan: Enoxaparin Clinical Quality Measures DVT/VTE Risk/Contraindication: Risk Factor Score Per Nursin RFS Level Per Nursing on Admit: 4+=Very High VAN GONZALEZ MD Mar 10, 2019 16:07
[2019-03-10] MEDS: DEXMEDETOMIDINE INJECTION 1,000 MCG in NS (IVPB) 240 ML IV SCH ×3 (16:44→22:52)
[2019-03-10] MEDS: fentaNYL INJECTION 100 MCG/2 ML AMP IV PRN ×3 (16:45→23:42)
[2019-03-10] MEDS ORDERED: hydrALAZINE (APESOLINE) 20 MG/ML VIAL ONE (17:33)
[2019-03-10] MEDS: hydrALAZINE (APESOLINE) 20 MG/ML VIAL IV PRN (17:59)
[2019-03-10] MEDS: FAMOTIDINE 20MG/2ML IV (PEPCID) IV SCH (18:00)
[2019-03-10] MEDS ORDERED: PROPOFOL DRIP (ICU) 100 ML IV ONE (19:13)
--- NOTE | 2019-03-10 19:15 | NUR ---
CALLED EICU PT ON VENT WAS SITTING UP IN BED AND PULLED TWO IVS OUT AND ATTEMPTING TO PULL OUT ET TUBE. CURRENT SEDATION PRECEDEX AT 1.5 MCG/KG/MIN. NEW ORDERS RECEIVED AT THIS TIME TO START PROPOFOL.
[2019-03-10] MEDS: cefTRIAXone 1,000 MG/SWFI 10 ML IV PUSH IV SCH ×2 (20:40)
--- NOTE | 2019-03-10 21:00 | NUR ---
TIMELINE NOTE BELOW: 2099:THIS RN CALLED EICU TO NOTIFY OF SBP IN 180'S. NEW ORDER RECEIVED AT THIS TIME. 2239: THIS RN CALLED EICU TO NOTIFY OF CONTINUED ELEVATED BP DESPITE PREVIOUS INTERVENTION. NEW ORDERS RECEIVED AT THIS TIME.
[2019-03-10 21:21] LABS: ABG BASE EXCESS 11.4 MMOL/L (-2.5-2.5); ABG OXYGEN SATURATION 92 % (94-100); ABG PCO2 69 MMHG (35-45); ABG PH 7.35 (7.37-7.43); ABG PO2 69 MMHG (79-93); ABG TCO2 39.3 MMOL/L (21.0-31.0)
[2019-03-10 21:23] LABS: ALLENS TEST YES-POS; INSPIRED O2 50%; VENTILATOR YES
[2019-03-10] MEDS ORDERED: fentaNYL INJECTION 100 MCG/2 ML AMP IVP ONE (21:30)
[2019-03-10] MEDS ORDERED: hydrALAZINE (APESOLINE) 20 MG/ML VIAL IV ONE (23:00)
[2019-03-10] MEDS ORDERED: meTOprolol 5 MG/5 ML (LOPRESSOR) VIAL IV ONE (23:00)
--- NOTE | 2019-03-10 23:35 | NUR ---
This RN called EICU to notify of patient's increased work of breathing using abdominal muscles, Dara LOUIS at bedside as well. No new orders at this time.
[2019-03-11] VITALS (32 sets, daily range): BP systolic 141–175; BP diastolic 79–97
[2019-03-11] MEDS: DEXMEDETOMIDINE INJECTION 1,000 MCG in NS (IVPB) 240 ML IV SCH ×4 (00:43→16:46)
[2019-03-11] MEDS: NS IV 1000 ML 1,000 ML IV SCH ×4 (00:55→20:32)
[2019-03-11] MEDS: RT-ALBUTEROL/IPRATROPIUM 3 ML (DUONEB) VIAL INH SCH ×5 (02:16→18:32)
--- NOTE | 2019-03-11 03:00 | NUR ---
THIS RN CALLED THE EICU TO NOTIFY OF PT CONTINUED LABORED BREATHING. ABG AND MORNING LABS TAKEN AT THIS TIME. ORDERS PENDING PER LAB RESULTS.
[2019-03-11 03:37] LABS: ABG BASE EXCESS 10.4 MMOL/L (-2.5-2.5); ABG OXYGEN SATURATION 93 % (94-100); ABG PCO2 62 MMHG (35-45); ABG PH 7.38 (7.37-7.43); ABG PO2 72 MMHG (79-93); ABG TCO2 37.5 MMOL/L (21.0-31.0)
[2019-03-11 03:42] LABS: ALLENS TEST POSITIVE; PATIENT TEMP 99; VENTILATOR YES
[2019-03-11 03:55] LABS: BASOPHILS % (AUTO) 0 % (0-10); EOSINOPHILS % (AUTO) 0 % (0-10); HEMATOCRIT 49 % (35-52); HEMOGLOBIN 14.7 G/DL (11.5-16.0); LYMPHOCYTES # (AUTO) 0.6 X 10^3 (1.0-4.0); LYMPHOCYTES % (AUTO) 5 % (12-44); MEAN CORPUSCULAR HEMOGLOBIN 27 PG (25-34); MEAN CORPUSCULAR HGB CONC 30 G/DL (32-36); MEAN CORPUSCULAR VOLUME 90 FL (80-99); MEAN PLATELET VOLUME 9.7 FL (7.4-10.4); MONOCYTES # (AUTO) 0.4 X 10^3 (0.0-1.0); MONOCYTES % (AUTO) 3 % (0-12); NEUTROPHILS % (AUTO) 91 % (42-75); PLATELET COUNT 195 10^3/uL (130-400); RED CELL DISTRIBUTION WIDTH 16.7 % (10.0-14.5)
[2019-03-11 04:33] LABS: BUN/CREATININE RATIO 25; CALCIUM 9.7 MG/DL (8.5-10.1); CARBON DIOXIDE 29 MMOL/L (21-32); CHLORIDE 95 MMOL/L (98-107); CREATININE SERUM 0.83 MG/DL (0.60-1.30); GFR ESTIMATED > 60; GLUCOSE 270 MG/DL (70-105); MAGNESIUM 1.7 MG/DL (1.6-2.4); PHOSPHORUS 3.3 MG/DL (2.3-4.7); POTASSIUM 4.9 MMOL/L (3.6-5.0); SODIUM 136 MMOL/L (135-145)
[2019-03-11] MEDS: inSUlin ASPART (NovoLOG) 1 UNIT/0.01 ML (CHARGE PER UNIT) SQ SCH ×3 (05:23→16:45)
[2019-03-11] MEDS: FAMOTIDINE 20MG/2ML IV (PEPCID) IV SCH ×2 (05:23→16:45)
[2019-03-11] MEDS: methylPREDNISolone 40 MG/ML (Solu-MEDROL) VIAL IV SCH ×3 (05:23→16:45)
[2019-03-11] MEDS: MAGNESIUM 1 GM/100 ML IVPB 100 ML IV SCH ×4 (05:23→07:04)
--- NOTE | 2019-03-11 05:50 | Pulmonary Progress Note ---
Subjective Time Seen by a Provider: 05:00 Subjective/Events-last exam Plan is for heart cath today. Sepsis Event Evaluation Height, Weight, BMI Height: 5'6.00" Weight: 229lbs. 0.0oz. 103.195812nj; 33.9 BMI Method:Estimated Focused Exam Lactate Level 03/09/19 00:02: Lactic Acid Level 1.39 Exam Exam Vital Signs Date Time Temp Pulse Resp B/P (MAP) Pulse Ox O2 Delivery O2 Flow Rate FiO2 03/11/19 03:15 53 24 172/84 (113) 94 Mechanical Ventilator 03/11/19 02:16 66 22 94 55 03/11/19 02:15 65 21 175/93 (120) 94 Mechanical Ventilator 03/11/19 01:54 175/94 03/11/19 01:15 67 21 166/92 (116) 95 Mechanical Ventilator 03/11/19 01:00 69 03/11/19 00:15 69 19 162/86 (111) 95 Mechanical Ventilator 03/11/19 00:00 95 Mechanical Ventilator 55 03/11/19 00:00 98.4 03/10/19 23:15 69 19 172/89 (116) 95 Mechanical Ventilator 03/10/19 22:52 189/98 03/10/19 22:15 69 19 189/99 (129) 93 Mechanical Ventilator 03/10/19 21:15 68 19 177/94 (121) 93 Mechanical Ventilator 03/10/19 21:03 65 20 90 50 03/10/19 20:14 73 21 163/93 (116) 90 Mechanical Ventilator 50.00 03/10/19 20:00 98.5 03/10/19 20:00 91 Mechanical Ventilator 50 03/10/19 19:47 143/85 03/10/19 19:37 69 20 99 50 03/10/19 19:15 107 20 126/82 (97) 100 Mechanical Ventilator 50.00 03/10/19 19:00 120 03/10/19 18:34 Mechanical Ventilator 50.00 03/10/19 18:21 80 24 99 55 03/10/19 18:21 99 Mechanical Ventilator 55 03/10/19 18:00 88 22 160/95 (116) Mechanical Ventilator 55.00 03/10/19 17:00 73 18 183/105 (131) 97 Mechanical Ventilator 55.00 03/10/19 16:00 77 20 185/104 (131) 93 Mechanical Ventilator 55.00 03/10/19 15:00 79 19 180/116 (137) 92 Mechanical Ventilator 55.00 03/10/19 14:02 79 21 93 55 03/10/19 14:00 78 21 190/104 (132) 94 Mechanical Ventilator 55.00 03/10/19 13:00 99 18 173/102 (125) 93 Mechanical Ventilator 55.00 03/10/19 12:09 80 03/10/19 12:00 98.3 03/10/19 12:00 82 21 183/95 (124) 93 Mechanical Ventilator 55.00 03/10/19 11:00 77 20 182/104 (130) 92 Mechanical Ventilator 55.00 03/10/19 10:15 72 21 94 55 03/10/19 10:00 79 21 93 Mechanical Ventilator 55.00 03/10/19 09:00 70 13 172/102 (125) 93 Mechanical Ventilator 55.00 03/10/19 08:00 98.7 03/10/19 08:00 70 15 164/95 (118) 93 Mechanical Ventilator 55.00 03/10/19 08:00 Mechanical Ventilator 55 03/10/19 07:00 79 03/10/19 07:00 78 14 151/92 (111) 95 Mechanical Ventilator 55.00 03/10/19 06:27 69 16 94 55 03/10/19 06:00 85 17 149/96 (113) 93 Mechanical Ventilator 55.00 I & O 03/11/19 07:00 Intake Total 710 ml Output Total 1425 ml Balance -715 ml Height & Weight Height: 5'6.00" Weight: 229lbs. 0.0oz. 103.523591pg; 33.9 BMI Method:Estimated General Appearance: No Apparent Distress, WD/WN HEENT: PERRL/EOMI, Normal ENT Inspection, Pharynx Normal Neck: Full Range of Motion, Non Tender, Supple Respiratory: Chest Non Tender, No Accessory Muscle Use, No Respiratory Distress, Decreased Breath Sounds Cardiovascular: Regular Rate, Rhythm, No JVD, No Murmur Capillary Refill: Less Than 3 Seconds Gastrointestinal: normal bowel sounds, soft Extremity: Normal Capillary Refill, Normal Inspection, No Pedal Edema Neurologic/Psychiatric: Other (sedated on vent) Skin: Normal Color, Warm/Dry Lymphatic: No Adenopathy Results Lab Laboratory Tests 03/09/19 08:15 03/10/19 02:55 03/11/19 03:00 Assessment/Plan Assessment/Plan Acute respiratory failure - -Continue vent -- change to SIMV/PS -Will hold on weaning until after heart cath and when ok with Dr. Elena. -No leukocytosis, No fever -CTA of chest - reviewed Leukocytosis - possibly secondary to solumedrol -Sputum stain reviewed show probable staph, strep -MRSA swab is positive -Will start vanco for now Grade 1 diastolic cardiomyopathy per Echo COPDAE -Solumedrol -- change to 40 IV Q 6 -SVNs Q 4 UTI -Rocephin -Cultures pending Hypercalemia, and elevated alk phos -Elevated PTH, Vit D pending YURI, and ionized calcium WESLEY ALMAGUER DO Mar 11, 2019 05:50
[2019-03-11] MEDS ORDERED: LIDOCAINE 1% INJ 20 ML 20 ML VIAL ONE (06:26)
[2019-03-11] MEDS ORDERED: HEParin (CATH LAB) 2,000 ML IV ONE (06:26)
[2019-03-11] MEDS: RT-BUDESONIDE NEBS 0.5 MG/2ML (PULMICORT) AMP INH SCH ×2 (06:27→18:32)
[2019-03-11] MEDS ORDERED: PHARMACY TO DOSE IV SCH (06:45)
[2019-03-11] MEDS ORDERED: NS (IVPB) 250 ML ONE (06:47)
--- NOTE | 2019-03-11 06:51 | NUR ---
VANCOMYCIN DOSING SCR 0.83; CRCL ~ 95; BOLUS VANC 20 MG/KG X 103 KG ~ 2 GM THEN VANC 15 MG/KG ~ 1500 MG Q12H CHECK TROUGH LEVEL 03/12 1800 HOLD DOSE AND CONTACT PHARMACY IF LEVEL IS GREATER THAN 20
[2019-03-11] MEDS ORDERED: VANCOMYCIN 2000 MG/NS 500 ML IVPB IV NR ×2 (07:00)
[2019-03-11] MEDS: POTASSIUM CL 10MEQ/50ML IVPB 50 ML IV SCH ×2 (07:04)
[2019-03-11] MEDS: KCL 20 MEQ TAB (K-DUR) PO SCH ×2 (07:05)
--- NOTE | 2019-03-11 07:54 | Diagnostic Imaging Report ---
Clinical indication: Patient with shortness of air on ventilator. ICU management. Exam: Portable chest x-ray upright view. Comparisons: Chest x-ray dated 03/10/2019. Findings: ET tube again seen in good position. Feeding tube is partially visualized, but appears to be below the level of diaphragm. There is slight increased airspace opacities involving both lung bases which may represent atelectasis versus infiltrate. There is no pleural effusion or pneumothorax. Pulmonary vasculature and cardiac silhouettes within normal limits. The remainder of this exam shows no significant interval change compared to the prior study of comparison. Impression: 1: There is development of mild bibasilar atelectasis versus infiltrate. 2: The remainder of this exam shows no significant interval change compared to the prior study of comparison. 3: Stable lines and tubes, as described above. Dictated by: Dictated on workstation # [id number]
--- NOTE | 2019-03-11 07:57 | Cardiac Procedure Note-CS/ASA ---
Pre-Procedure Note Pre-Op Procedure Note H&P Reviewed The H&P was reviewed, patient examined and no changes noted. Date H&P Reviewed: Mar 11, 2019 Time H&P Reviewed: 07:00 Conscious Sedation Pre-Proced Time 07:00 ASA Score 3 For ASA 3 and 4: Consider anesthesia and medical clearance. Also, for patients with a history of failed moderate sedation consider anesthesia. Airway Lungs Heart ASA score ASA 1: a normal healthy patient ASA 2: a patient with a mild systemic disease (mid diabetes, controlled hypertension, obesity ASA 3: a patient with a severe systemic disease that limits activity (angina, COPD, prior Myocardial infarction) ASA 4: a patient with an incapacitating disease that is a constant threat to life (CHF, renal failure) ASA 5: a moribund patient not expected to survive 24 hrs. (ruptured aneurysm) ASA 6: a declared brain- patient whose organs are being harvested. For emergent operations, add the letter E after the classification Mallampati Classification Grade 1 Sedation Plan Analgesia, Amnesia, Plan communicated to team members, Discussed options with patient/fam, Discussed risks with patient/fam The patient is an appropriate candidate to undergo the planned procedure, sedation, and anesthesia. The patient immediately re-assessed prior to indication. Nick ZEPEDA MD Mar 11, 2019 07:57
--- NOTE | 2019-03-11 07:57 | Coronary Angiography Report ---
Coronary Angiography Report DATE OF PROCEDURE: 03/11/19 INDICATION: Acute respiratory failure, congestive heart failure, positive troponin. PREOPERATIVE DIAGNOSIS: Acute respiratory failure, congestive heart failure, positive troponin. POSTOPERATIVE DIAGNOSIS: Patent epicardial coronary arteries, acute diastolic congestive heart failure. HISTORY: This is a 53-year-old lady who presented with acute respiratory failure. She was intubated/ventilated. Positive cardiac enzymes. Consent was taken from her daughter. Therefore, the patient was scheduled for coronary angiography. PROCEDURES PERFORMED: 1.Coronary angiography. 2.Left heart catheterization. COMPLICATIONS: None. SPECIMENS: None. ESTIMATED BLOOD LOSS: 10 mL ANESTHESIA: Conscious sedation ANTICOAGULATION: None. CONTRAST: 50 mL. FLUOROSCOPY: 3.0 minutes. FLOUROSCOPY DOSE: 578 mgy. PROCEDURE DETAILS: The patient is a 53 female and was brought to the vp lab after informed consent was taken from the daughter since the patient is intubated/ventilated. All the risks and complications were explained in detail; this included the risk of bleeding, vascular damage, stroke, GA and even . The patient was draped and prepped in the usual sterile fashion. Access was gained in the right femoral artery with a 5 Serbian sheath. Coronary angiography was performed with a JR4 and JL4 catheter. Left heart catheterization was performed with a JR4 catheter. FINDINGS: 1.Left main: Patent. 2.LAD: Mild mid disease. 3.Left circumflex artery: Luminal irregularities. 4.RCA: Mild mid disease. Stenosis severity 10 percent. 5.Left heart catheterization: Aortic pressure 159/84 mmHg, LV pressure 154/22 mmHg, LVEDP 26 mmHg. normal LV function with no wall motion abnormalities. No gradient across the aortic valve. CONCLUSIONS: 1. Mild CAD. Type II myocardial infarction due to acute respiratory failure. 2. Acute diastolic congestive heart failure. IV Lasix will be recommended. Ceasar Elena MD, FACP, FACC, [facility] Interventional Cardiology Nick ELENA MD Mar 11, 2019 07:57
[2019-03-11] MEDS ORDERED: PATIENT MAY USE OWN MEDS, ALL PO SCH (08:00)
--- NOTE | 2019-03-11 08:01 | Cardiology Progress Note ---
Cardiology SOAP Progress Note Subjective: Intubated/ventilated Objective: I&O/Vital Signs 03/10/19 03/10/19 03/10/19 03/10/19 20:14 21:03 21:15 22:15 Pulse 73 65 68 69 Resp B/P (MAP) 163/93 (116) 177/94 (121) 189/99 (129) Pulse Ox 90 90 93 93 O2 Delivery Mechanical Ventilator Mechanical Ventilator Mechanical Ventilator O2 Flow Rate 50.00 FiO2 50 03/10/19 03/10/19 03/11/19 03/11/19 22:52 23:15 00:00 00:00 Temp 98.4 Pulse 69 Resp 19 B/P (MAP) 189/98 172/89 (116) Pulse Ox 95 95 O2 Delivery Mechanical Ventilator Mechanical Ventilator FiO2 55 03/11/19 03/11/19 03/11/19 03/11/19 00:15 01:00 01:15 01:54 Pulse 69 69 67 Resp B/P (MAP) 162/86 (111) 166/92 (116) 175/94 Pulse Ox 95 95 O2 Delivery Mechanical Ventilator Mechanical Ventilator 03/11/19 03/11/19 03/11/19 03/11/19 02:15 02:16 03:15 04:00 Pulse 65 66 53 66 Resp 24 29 B/P (MAP) 175/93 (120) 172/84 (113) 172/97 (122) Pulse Ox 94 94 94 91 O2 Delivery Mechanical Ventilator Mechanical Ventilator Mechanical Ventilator O2 Flow Rate 55.00 FiO2 55 03/11/19 03/11/19 03/11/19 03/11/19 04:00 04:20 05:00 06:00 Temp 99.0 Pulse 65 60 Resp 45 19 B/P (MAP) 155/83 (107) 151/86 (107) Pulse Ox 94 93 94 O2 Delivery Mechanical Ventilator Mechanical Ventilator Mechanical Ventilator O2 Flow Rate 55.00 55.00 FiO2 55 03/11/19 06:20 Pulse 60 Resp 20 Pulse Ox 93 FiO2 55 03/11/19 00:00 Intake Total 610 ml Output Total 1475 ml Balance -865 ml Weight (Pounds): 228 Weight (Ounces): 0.7 Weight (Calculated Kilograms): 103.979500 Constitutional: appears stated age, AAO x 3; No apparent distress; well- developed, well-nourished, other (intubated/ventilated.) Respiratory: other (intubated/ventilated.) Cardiovascular: regular rate-rhythm; No irregularly irregular, No extra beats, No parasternal heave is noted, No JVD, No edema, No bradycardia, No tachycardia, No point of maximal impulse, No cardiac thrills are palpable; S1 and S2; No gallop/S3, No gallop/S4, No diastolic murmur, No systolic murmur, No friction rub, No click, No other Gastrointestional: No tender, No soft, No round, No distended, No pulsatile mass, No organomegaly, No guarding, No rebound, No tenderness, No hernia, No mass, No audible bowel sounds, No abnormal bowel sounds, No abdominal bruits, No spleenomegaly, No other Extremities: No normal range of motion, No non-tender, No normal inspection, No pedal edema, No calf tenderness, No normal capillary refill, No pelvis stable, No calf tenderness, No inflammation, No pedal edema, No slow capillary refill, No swelling, No other, No abrasion, No clubbing, No cyanosis, No ecchymosis, No laceration, No no lower extremity edema bilateral, No significant edema, No tenderness, No wound Neurologic/Psychiatric: other (intubated/ventilated.) Skin: No rash, No ulcerations Results/Procedures: Labs Laboratory Tests 03/10/19 08:43: Blood Gas Puncture Site RT RAD, Blood Gas Patient Temperature 98.7, Arterial Blood pH 7.39, Arterial Blood Partial Pressure CO2 66H, Arterial Blood Partial Pressure O2 66L, Arterial Blood HCO3 39H, Arterial Blood Total CO2 40.6H, Arterial Blood Oxygen Saturation 93L, Arterial Blood Base Excess 13.0H, Da Test YES-POS, Blood Gas Ventilator Setting YES, Blood Gas Inspired Oxygen 30% 03/10/19 10:18: Vitamin D 25-Hydroxy 5.7L 03/10/19 11:16: Glucometer 266H 03/10/19 16:43: Glucometer 242H 03/10/19 21:11: Blood Gas Puncture Site R RAD, Blood Gas Patient Temperature 99.0, Arterial Blood pH 7.35L, Arterial Blood Partial Pressure CO2 69H, Arterial Blood Partial Pressure O2 69L, Arterial Blood HCO3 37H, Arterial Blood Total CO2 39.3H, Arterial Blood Oxygen Saturation 92L, Arterial Blood Base Excess 11.4H, Da Test YES-POS, Blood Gas Ventilator Setting YES, Blood Gas Inspired Oxygen 50% 03/10/19 23:47: Glucometer 293H 03/11/19 03:00: White Blood Count 12.0H, Red Blood Count 5.47, Hemoglobin 14.7, Hematocrit 49, Mean Corpuscular Volume 90, Mean Corpuscular Hemoglobin 27, Mean Corpuscular Hemoglobin Concent 30L, Red Cell Distribution Width 16.7H, Platelet Count 195, Mean Platelet Volume 9.7, Neutrophils (%) (Auto) 91H, Lymphocytes (%) (Auto) 5L, Monocytes (%) (Auto) 3, Eosinophils (%) (Auto) 0, Basophils (%) (Auto) 0, Neutrophils # (Auto) 11.0H, Lymphocytes # (Auto) 0.6L, Monocytes # (Auto) 0.4, Eosinophils # (Auto) 0.0, Basophils # (Auto) 0.0, Sodium Level 136, Potassium L evel 4.9, Chloride Level 95L, Carbon Dioxide Level 29, Anion Gap 12, Blood Urea Nitrogen 21H, Creatinine 0.83, Estimat Glomerular Filtration Rate > 60, BUN/Creatinine Ratio 25, Glucose Level 270H, Calcium Level 9.7, Phosphorus Level 3.3, Magnesium Level 1.7, Triglycerides Level 336H 03/11/19 03:28: Blood Gas Puncture Site LEFT RADIAL, Blood Gas Patient Temperature 99, Arterial Blood pH 7.38, Arterial Blood Partial Pressure CO2 62H, Arterial Blood Partial Pressure O2 72L, Arterial Blood HCO3 36H, Arterial Blood Total CO2 37.5H, Arterial Blood Oxygen Saturation 93L, Arterial Blood Base Excess 10.4H, Da Test POSITIVE, Blood Gas Ventilator Setting YES, Blood Gas Inspired Oxygen 55% Microbiology 03/09/19 Blood Culture - Preliminary, Resulted No growth 03/09/19 MRSA Screen - Final, Complete 03/09/19 Urine Culture - Final, Complete 3 or more isolates A/P: Assessment/Dx: Acute respiratory failure, COPD exacerbation, Possible acute diastolic congestive heart failure, Diabetes, Active smoking, Hyperlipidemia, Hypercalcemia Plan: Acute respiratory failure, COPD exacerbation. Intubated/ventilated. COPD exacerbation, Possible acute diastolic congestive heart failure, add BNP to the labs. Echocardiogram done 03/09/2019 shows normal LV function with mild to moderate diastolic dysfunction. Severe pulmonary hypertension. Positive troponin, likely type II myocardial infarction due to acute respiratory failure. Patient has significant risk factors for CAD including diabetes and active smoking. acute coronary syndrome due to plaque rupture cannot be ruled out. Patient will require coronary angiography once more stable respiratory- [place]. I will discuss with Dr. Silva. I discussed with the daughter at the bedside and recommended coronary angiography once she is more stable. Coronary angiography will be done today 03/11/2019. Diabetes, Active smoking, Hyperlipidemia, Hypercalcemia Thank you for your consultation. Please call me if you have any questions. Ceasar Zepeda MD, FACP, FACC, FSCAI, FHRS, CCDS Interventional Cardiology Cardiac Electrophysiology Vascular Medicine and Endovascular Interventions Focused Exam Lactate Level 03/09/19 00:02: Lactic Acid Level 1.39 Nick ZEPEDA MD Mar 11, 2019 08:01
[2019-03-11] MEDS: FUROSEMIDE 40 MG/4 ML INJ (LASIX) IVP SCH ×2 (08:41→08:45)
[2019-03-11] MEDS: ENOXAPARIN 40 MG/0.4 ML (LOVENOX) SYR SC SCH (08:41)
--- NOTE | 2019-03-11 14:16 | Progress Note ---
Subjective Subjective/Events-last exam Afebrile. Cardiac cath done this am. Focused Exam Lactate Level 03/09/19 00:02: Lactic Acid Level 1.39 Objective Exam Last Set of Vital Signs Vital Signs Date Time Temp Pulse Resp B/P (MAP) Pulse Ox O2 Delivery O2 Flow Rate FiO2 03/11/19 14:00 65 20 146/84 (104) 94 Mechanical Ventilator 65.00 03/11/19 13:36 65 03/11/19 08:00 98.9 Capillary Refill : Less Than 3 Seconds I&O Intake and Output 03/11/19 00:00 Intake Total 1710 ml Output Total 2400 ml Balance -690 ml Intake Oral 0 ml IV Total 1710 ml Output Urine Total 2050 ml Gastric Drainage Total 350 ml General: Other (sedated, intubated) Lungs: Clear to Auscultation, Normal Air Movement Heart: Regular Rate, No Murmurs Results/Procedures Lab Laboratory Tests 03/10/19 16:43: Glucometer 242H 03/10/19 21:11: Blood Gas Puncture Site R RAD, Blood Gas Patient Temperature 99.0, Arterial Blood pH 7.35L, Arterial Blood Partial Pressure CO2 69H, Arterial Blood Partial Pressure O2 69L, Arterial Blood HCO3 37H, Arterial Blood Total CO2 39.3H, Arterial Blood Oxygen Saturation 92L, Arterial Blood Base Excess 11.4H, Da Test YES-POS, Blood Gas Ventilator Setting YES, Blood Gas Inspired Oxygen 50% 03/10/19 23:47: Glucometer 293H 03/11/19 03:00: White Blood Count 12.0H, Red Blood Count 5.47, Hemoglobin 14.7, Hematocrit 49, Mean Corpuscular Volume 90, Mean Corpuscular Hemoglobin 27, Mean Corpuscular Hemoglobin Concent 30L, Red Cell Distribution Width 16.7H, Platelet Count 195, Mean Platelet Volume 9.7, Neutrophils (%) (Auto) 91H, Lymphocytes (%) (Auto) 5L, Monocytes (%) (Auto) 3, Eosinophils (%) (Auto) 0, Basophils (%) (Auto) 0, Neutrophils # (Auto) 11.0H, Lymphocytes # (Auto) 0.6L, Monocytes # (Auto) 0.4, Eosinophils # (Auto) 0.0, Basophils # (Auto) 0.0, Sodium Level 136, Potassium Level 4.9, Chloride Level 95L, Carbon Dioxide Level 29, Anion Gap 12, Blood Urea Nitrogen 21H, Creatinine 0.83, Estimat Glomerular Filtration Rate > 60, BUN/Creatinine Ratio 25, Glucose Level 270H, Calcium Level 9.7, Phosphorus Level 3.3, Magnesium Level 1.7, Triglycerides Level 336H 03/11/19 03:28: Blood Gas Puncture Site LEFT RADIAL, Blood Gas Patient Temperature 99, Arterial Blood pH 7.38, Arterial Blood Partial Pressure CO2 62H, Arterial Blood Partial Pressure O2 72L, Arterial Blood HCO3 36H, Arterial Blood Total CO2 37.5H, Arterial Blood Oxygen Saturation 93L, Arterial Blood Base Excess 10.4H, Da Test POSITIVE, Blood Gas Ventilator Setting YES, Blood Gas Inspired Oxygen 55% 03/11/19 11:34: Glucometer 206H Microbiology 03/09/19 Blood Culture - Preliminary, Resulted No growth 03/09/19 MRSA Screen - Final, Complete 03/09/19 Urine Culture - Final, Complete 3 or more isolates Radiology CXR 03/09: No acute cardiopulmonary process Assessment/Plan Assessment/Plan (1) Respiratory acidosis Status: Acute Assessment & Plan: Acute, severe with pH 7.16 on admit. 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 03/10 continues to improve, remains intubated 03/11 weaning trial this pm (2) Acute on chronic respiratory failure with hypoxia and hypercapnia Status: Acute Assessment & Plan: Dr. Silva consulted, patient intubated and on solumedrol and ceftriaxone. No clear evidence of pneumonia on chest x-ray. CTA pending. 03/10 CTA with no PE, minimal infiltrate or atelectasis in anterior RUL and posterior RLL (3) HTN (hypertension) Status: Chronic Assessment & Plan: BP borderline to low initially. Qualifiers: Qualified Codes: I10 - Essential (primary) hypertension (4) Non-insulin treated type 2 diabetes mellitus Status: Chronic Assessment & Plan: ICU sliding scale insulin. (5) Hypothyroidism Status: Chronic (6) Hypercalcemia Status: Acute Assessment & Plan: PTH pending. 03/10 PTH high, check vitamin D (7) Elevated troponin Status: Acute Assessment & Plan: 03/11- Cardiology consulted, cath done this am. (8) DVT prophylaxis Status: Acute Assessment & Plan: Enoxaparin Clinical Quality Measures DVT/VTE Risk/Contraindication: Risk Factor Score Per Nursin RFS Level Per Nursing on Admit: 4+=Very High VAN GONZALEZ MD Mar 11, 2019 14:16
[2019-03-11] MEDS: VANCOMYCIN 1500 MG/NS 500 ML IVPB IV SCH ×2 (20:32)
[2019-03-11] MEDS: cefTRIAXone 1,000 MG/SWFI 10 ML IV PUSH IV SCH ×2 (20:32)
[2019-03-11] MEDS ORDERED: ACETAMINOPHEN 325 MG TABLET PO PRN (21:15)
[2019-03-11] MEDS ORDERED: ACETAMINOPHEN 650 MG SUPP (TYLENOL) PR PRN (21:30)
[2019-03-11] MEDS: APAP 325 MG/10.15 ML LIQ (TYLENOL) UDC GT PRN (21:52)
[2019-03-12] VITALS (33 sets, daily range): BP systolic 115–161; BP diastolic 60–92
[2019-03-12] MEDS: methylPREDNISolone 40 MG/ML (Solu-MEDROL) VIAL IV SCH ×5 (00:15→23:52)
[2019-03-12] MEDS: inSUlin ASPART (NovoLOG) 1 UNIT/0.01 ML (CHARGE PER UNIT) SQ SCH ×5 (00:16→23:53)
[2019-03-12] MEDS: RT-ALBUTEROL/IPRATROPIUM 3 ML (DUONEB) VIAL INH SCH ×6 (02:18→21:39)
[2019-03-12] MEDS: DEXMEDETOMIDINE INJECTION 1,000 MCG in NS (IVPB) 240 ML IV SCH ×4 (02:44→23:53)
[2019-03-12 03:33] LABS: BASOPHILS % (AUTO) 0 % (0-10); EOSINOPHILS % (AUTO) 0 % (0-10); HEMATOCRIT 49 % (35-52); HEMOGLOBIN 14.5 G/DL (11.5-16.0); LYMPHOCYTES # (AUTO) 0.6 X 10^3 (1.0-4.0); LYMPHOCYTES % (AUTO) 9 % (12-44); MEAN CORPUSCULAR HEMOGLOBIN 27 PG (25-34); MEAN CORPUSCULAR HGB CONC 30 G/DL (32-36); MEAN CORPUSCULAR VOLUME 90 FL (80-99); MEAN PLATELET VOLUME 9.4 FL (7.4-10.4); MONOCYTES # (AUTO) 0.4 X 10^3 (0.0-1.0); MONOCYTES % (AUTO) 5 % (0-12); NEUTROPHILS # (AUTO) 6.2 X 10^3 (1.8-7.8); NEUTROPHILS % (AUTO) 86 % (42-75); PLATELET COUNT 161 10^3/uL (130-400); RED CELL DISTRIBUTION WIDTH 16.1 % (10.0-14.5); WHITE BLOOD COUNT 7.2 10^3/uL (4.3-11.0)
[2019-03-12 03:36] LABS: ABG BASE EXCESS 10.2 MMOL/L (-2.5-2.5); ABG OXYGEN SATURATION 92 % (94-100); ABG PCO2 63 MMHG (35-45); ABG PH 7.37 (7.37-7.43); ABG PO2 70 MMHG (79-93); ABG TCO2 37.4 MMOL/L (21.0-31.0)
[2019-03-12 03:37] LABS: ALLENS TEST YES-POS; INSPIRED O2 50%; PATIENT TEMP 99.6; VENTILATOR YES
[2019-03-12 04:09] LABS: BUN/CREATININE RATIO 28; CALCIUM 9.3 MG/DL (8.5-10.1); CARBON DIOXIDE 30 MMOL/L (21-32); CHLORIDE 96 MMOL/L (98-107); CREATININE SERUM 0.79 MG/DL (0.60-1.30); GFR ESTIMATED > 60; GLUCOSE 195 MG/DL (70-105); MAGNESIUM 2.4 MG/DL (1.6-2.4); POTASSIUM 4.8 MMOL/L (3.6-5.0); SODIUM 137 MMOL/L (135-145)
[2019-03-12] MEDS: POTASSIUM CL 10MEQ/50ML IVPB 50 ML IV SCH ×2 (04:33)
[2019-03-12] MEDS: NS IV 1000 ML 1,000 ML IV SCH ×2 (04:33→15:52)
[2019-03-12] MEDS: MAGNESIUM 1 GM/100 ML IVPB 100 ML IV SCH ×2 (04:34)
[2019-03-12] MEDS: KCL 20 MEQ TAB (K-DUR) PO SCH ×2 (04:37)
[2019-03-12] MEDS: FAMOTIDINE 20MG/2ML IV (PEPCID) IV SCH ×2 (05:46→19:24)
--- NOTE | 2019-03-12 05:54 | Pulmonary Progress Note ---
Subjective Time Seen by a Provider: 05:56 Subjective/Events-last exam Sedated on vent Sepsis Event Evaluation Height, Weight, BMI Height: 5'6.00" Weight: 228lbs. 0.1oz. 103.921247ki; 33.9 BMI Method:Estimated Exam Exam Vital Signs Date Time Temp Pulse Resp B/P (MAP) Pulse Ox O2 Delivery O2 Flow Rate FiO2 03/12/19 04:36 99.6 Mechanical Ventilator 45.00 03/12/19 04:32 137/71 03/12/19 04:09 67 24 119/60 (79) 92 Mechanical Ventilator 50.00 03/12/19 03:45 93 Mechanical Ventilator 50 03/12/19 03:01 57 20 147/78 (101) 92 Mechanical Ventilator 50.00 03/12/19 03:00 66 20 143/74 (97) 93 Mechanical Ventilator 55.00 03/12/19 02:18 67 20 92 55 03/12/19 02:00 66 20 143/74 (97) 93 Mechanical Ventilator 55.00 03/12/19 01:22 Mechanical Ventilator 55.00 03/12/19 01:20 149/82 03/12/19 01:00 65 03/12/19 01:00 65 19 150/80 (103) 95 Mechanical Ventilator 65.00 03/12/19 00:30 94 Mechanical Ventilator 60 03/12/19 00:12 66 20 154/80 (104) 96 Mechanical Ventilator 65.00 03/12/19 00:00 99.1 03/11/19 23:00 70 18 153/82 (105) 94 Mechanical Ventilator 65.00 03/11/19 22:45 99.1 03/11/19 22:07 72 20 95 65 03/11/19 22:00 61 35 155/87 (109) 95 Mechanical Ventilator 65.00 03/11/19 21:52 101.1 03/11/19 21:52 159/83 03/11/19 21:00 61 39 151/82 (105) 93 Mechanical Ventilator 65.00 03/11/19 20:00 94 Mechanical Ventilator 60 03/11/19 20:00 63 20 158/83 (108) 92 Mechanical Ventilator 65.00 03/11/19 19:50 101.1 03/11/19 19:00 75 19 150/80 (103) 92 Mechanical Ventilator 65.00 03/11/19 19:00 63 03/11/19 18:32 71 22 93 65 03/11/19 18:00 61 20 162/87 (112) 94 Mechanical Ventilator 65.00 03/11/19 17:00 60 20 148/89 (108) 94 Mechanical Ventilator 65.00 03/11/19 16:48 60 03/11/19 16:46 60 03/11/19 16:00 64 27 144/84 (104) 93 Mechanical Ventilator 65.00 03/11/19 16:00 90 Mechanical Ventilator 55 03/11/19 15:00 62 25 143/79 (100) 93 Mechanical Ventilator 65.00 03/11/19 14:00 65 20 146/84 (104) 94 Mechanical Ventilator 65.00 03/11/19 13:36 56 20 93 65 03/11/19 13:00 56 03/11/19 13:00 57 20 150/86 (107) 93 Mechanical Ventilator 65.00 03/11/19 12:00 93 Mechanical Ventilator 65 03/11/19 12:00 57 19 145/84 (104) 93 Mechanical Ventilator 65.00 03/11/19 11:36 60 03/11/19 11:00 62 41 141/82 (101) 94 Mechanical Ventilator 55.00 03/11/19 11:00 Mechanical Ventilator 65.00 03/11/19 10:14 66 20 89 65 03/11/19 10:00 55 20 144/87 (106) 90 Mechanical Ventilator 55.00 03/11/19 09:30 57 20 143/81 (101) 90 Mechanical Ventilator 55.00 03/11/19 09:00 58 19 145/85 (105) 91 Mechanical Ventilator 55.00 03/11/19 08:45 60 20 153/85 (107) 90 Mechanical Ventilator 55.00 03/11/19 08:43 58 03/11/19 08:30 57 19 149/84 (105) 91 Mechanical Ventilator 55.00 03/11/19 08:15 59 26 154/85 (108) 91 Mechanical Ventilator 55.00 03/11/19 08:00 90 Mechanical Ventilator 55 03/11/19 08:00 98.9 03/11/19 08:00 59 03/11/19 07:00 59 03/11/19 06:20 60 20 93 55 03/11/19 06:00 60 19 151/86 (107) 94 Mechanical Ventilator 55.00 I & O 03/12/19 07:00 Intake Total 2725 ml Output Total 4050 ml Balance -1325 ml Height & Weight Height: 5'6.00" Weight: 228lbs. 0.1oz. 103.793671fj; 33.9 BMI Method:Estimated General Appearance: No Apparent Distress, WD/WN, Other (sedated on vent) HEENT: PERRL/EOMI, Normal ENT Inspection, Pharynx Normal Neck: Full Range of Motion, Non Tender, Supple Respiratory: Chest Non Tender, No Accessory Muscle Use, No Respiratory Distress, Decreased Breath Sounds Cardiovascular: Regular Rate, Rhythm, No JVD, No Murmur Capillary Refill: Less Than 3 Seconds Gastrointestinal: normal bowel sounds, soft Extremity: Normal Capillary Refill, Normal Inspection, No Pedal Edema Neurologic/Psychiatric: Other (sedated on vent) Skin: Normal Color, Warm/Dry Lymphatic: No Adenopathy Results Lab Laboratory Tests 03/11/19 03:00 03/12/19 02:54 Assessment/Plan Assessment/Plan Acute respiratory failure - -Continue vent support -- -Not ready for weaning yet secondary to oxygen and ventilatory req uirements. -CTA of chest - reviewed PNA - Sputum was obtained upon intubation. This is not ventilator associated PNA. -Sputum shows staph aureus -MRSA swab is positive and was done upon ICU admission -Continue vanco started 03/11 HX of severe oxygen dependent COPD -Last PFT was 2014 and shows severe emphysema -Prognosis is guarded to poor. -Will consult hospice to help with family education and continue aggressive/supportive measures. Grade 1 diastolic cardiomyopathy per Echo -Lasix 40mg daily COPDAE -Solumedrol - 40 IV Q 6 -SVNs Q 4 UTI -Rocephin -Cultures pending Hypercalemia, and elevated alk phos -Elevated PTH, Vit D pending YURI, and ionized calcium WESLEY ALMAGUER DO Mar 12, 2019 05:54
[2019-03-12] MEDS: RT-BUDESONIDE NEBS 0.5 MG/2ML (PULMICORT) AMP INH SCH ×2 (07:15→18:22)
--- NOTE | 2019-03-12 07:46 | Diagnostic Imaging Report ---
INDICATION: Respiratory failure. Portable chest 3:50 AM FINDINGS: There is an ET tube projecting over the trachea. There is an NG tube that appears to enter the stomach. Heart size and pulmonary vascularity are normal. Lungs are clear. There are no effusions or pneumothoraces. IMPRESSION: No acute abnormalities in the chest. No significant change from previous day. Dictated by: Dictated on workstation # [id number]
[2019-03-12] MEDS: VANCOMYCIN 1500 MG/NS 500 ML IVPB IV SCH ×2 (07:53)
[2019-03-12] MEDS: ENOXAPARIN 40 MG/0.4 ML (LOVENOX) SYR SC SCH (07:54)
[2019-03-12] MEDS: FUROSEMIDE 40 MG/4 ML INJ (LASIX) IVP SCH (07:54)
[2019-03-12] MEDS: VITAMIN D2 50,000 UNITS (1.25 MG) CAP PO SCH (07:54)
[2019-03-12] MEDS ORDERED: VITAMIN D3 5,000 UNITS (CHOLECALCIFEROL ) CAPSULE PO SCH (09:00)
--- NOTE | 2019-03-12 10:40 | NUR ---
decreased o2 from 45% to 40%; patient is still on peep of [address] Silva was informed of this change; he wants peep left at 10 for now
--- NOTE | 2019-03-12 11:02 | NUR ---
PALLIATIVE CARE RN consult received. Patient is intubated and sedated and there is no family in room to talk to. Spoke to RN and she says daughter works today and is not able to come in, she will call if any shows.
--- NOTE | 2019-03-12 13:03 | Progress Note ---
Subjective Subjective/Events-last exam Febrile to 101.1 overnight. Unable to wean vent due to high requirements. Objective Exam Last Set of Vital Signs Vital Signs Date Time Temp Pulse Resp B/P (MAP) Pulse Ox O2 Delivery O2 Flow Rate FiO2 03/12/19 11:00 69 20 120/74 (89) 89 Mechanical Ventilator 40.00 03/12/19 10:25 45 03/12/19 07:53 98.8 Capillary Refill : Less Than 3 Seconds I&O Intake and Output 03/12/19 00:00 Intake Total 3925 ml Output Total 5095 ml Balance -1170 ml Intake Oral 0 ml IV Total 3925 ml Output Urine Total 4795 ml Gastric Drainage Total 300 ml General: Other (sedated, intubated) Lungs: Clear to Auscultation, Normal Air Movement Heart: Regular Rate, No Murmurs Abdomen: Normal Bowel Sounds, Soft Extremities: No Edema Results/Procedures Lab Laboratory Tests 03/11/19 16:40: Glucometer 175H 03/12/19 00:09: Glucometer 221H 03/12/19 02:54: White Blood Count 7.2, Red Blood Count 5.42, Hemoglobin 14.5, Hematocrit 49, Mean Corpuscular Volume 90, Mean Corpuscular Hemoglobin 27, Mean Corpuscular Hemoglobin Concent 30L, Red Cell Distribution Width 16.1H, Platelet Count 161, Mean Platelet Volume 9.4, Neutrophils (%) (Auto) 86H, Lymphocytes (%) (Auto) 9L, Monocytes (%) (Auto) 5, Eosinophils (%) (Auto) 0, Basophils (%) (Auto) 0, Neutrophils # (Auto) 6.2, Lymphocytes # (Auto) 0.6L, Monocytes # (Auto) 0.4, Eosinophils # (Auto) 0.0, Basophils # (Auto) 0.0, Sodium Level 137, Potassium Level 4.8, Chloride Level 96L, Carbon Dioxide Level 30, Anion Gap 11, Blood Urea Nitrogen 22H, Creatinine 0.79, Estimat Glomerular Filtration Rate > 60, BUN/Creatinine Ratio 28, Glucose Level 195H, Calcium Level 9.3, Phosphorus Level 4.0, Magnesium Level 2.4 03/12/19 03:31: Blood Gas Puncture Site L RAD, Blood Gas Patient Temperature 99.6, Arterial Blood pH 7.37, Arterial Blood Partial Pressure CO2 63H, Arterial Blood Partial Pressure O2 70L, Arterial Blood HCO3 36H, Arterial Blood Total CO2 37.4H, Arterial Blood Oxygen Saturation 92L, Arterial Blood Base Excess 10.2H, Da Test YES-POS, Blood Gas Ventilator Setting YES, Blood Gas Inspired Oxygen 50% 03/12/19 12:45: Glucometer 200H Microbiology 03/09/19 Blood Culture - Preliminary, Resulted No growth 03/09/19 MRSA Screen - Final, Complete 03/09/19 Urine Culture - Final, Complete 3 or more isolates Radiology CXR 03/09: No acute cardiopulmonary process Assessment/Plan Assessment/Plan (1) Respiratory acidosis Status: Acute Assessment & Plan: Acute, severe with pH 7.16 on admit. 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 03/10 continues to improve, remains intubated 03/11 weaning trial this pm 03/12- unable to wean, Dr. Silva consulted hospice for education, continuing current care at this time (2) Acute on chronic respiratory failure with hypoxia and hypercapnia Status: Acute Assessment & Plan: Dr. Silva consulted, patient intubated and on solumedrol and ceftriaxone. No clear evidence of pneumonia on chest x-ray. CTA pending. 03/10 CTA with no PE, minimal infiltrate or atelectasis in anterior RUL and posterior RLL (3) HTN (hypertension) Status: Chronic Assessment & Plan: BP borderline to low initially. Qualifiers: Qualified Codes: I10 - Essential (primary) hypertension (4) Non-insulin treated type 2 diabetes mellitus Status: Chronic Assessment & Plan: ICU sliding scale insulin. (5) Hypothyroidism Status: Chronic (6) Hypercalcemia Status: Acute Assessment & Plan: PTH pending. 03/10 PTH high, vitamin D low (7) Elevated troponin Status: Acute Assessment & Plan: 03/11- Cardiology consulted, cath done this am. (8) DVT prophylaxis Status: Acute Assessment & Plan: Enoxaparin Clinical Quality Measures DVT/VTE Risk/Contraindication: Risk Factor Score Per Nursin RFS Level Per Nursing on Admit: 4+=Very High VAN GONZALEZ MD Mar 12, 2019 13:03
[2019-03-12] MEDS ORDERED: TROUGH ORDER-PHARMACY XX NR (18:00)
[2019-03-12] MEDS: APAP 325 MG/10.15 ML LIQ (TYLENOL) UDC GT PRN (18:58)
--- NOTE | 2019-03-12 19:23 | Cardiology Progress Note ---
Cardiology SOAP Progress Note Subjective: intubated/ventilated. Objective: I&O/Vital Signs 03/12/19 03/12/19 03/12/19 03/12/19 07:51 07:53 08:00 08:00 Temp 98.8 98.8 Pulse 64 62 Resp 20 20 B/P (MAP) 147/76 145/76 (99) Pulse Ox 92 94 O2 Delivery Mechanical Ventilator Mechanical Ventilator Mechanical Ventilator O2 Flow Rate 45.00 45.00 FiO2 45 03/12/19 03/12/19 03/12/19 03/12/19 08:54 09:00 10:00 10:25 Pulse 69 70 68 65 Resp 20 15 20 21 B/P (MAP) 115/74 (88) 118/73 (88) Pulse Ox 92 92 93 95 O2 Delivery Mechanical Ventilator Mechanical Ventilator O2 Flow Rate 45.00 45.00 FiO2 45 45 03/12/19 03/12/19 03/12/19 03/12/19 10:42 10:58 11:00 12:00 Pulse 70 69 Resp 20 B/P (MAP) 119/71 120/74 (89) Pulse Ox 89 91 O2 Delivery Mechanical Ventilator Mechanical Ventilator Mechanical Ventilator O2 Flow Rate 40.00 40.00 FiO2 40 03/12/19 03/12/19 03/12/19 03/12/19 12:00 13:00 13:00 13:43 Temp 99.8 Pulse 65 63 67 Resp 20 20 B/P (MAP) 136/77 (96) 143/82 (102) Pulse Ox 88 91 O2 Delivery Mechanical Ventilator Mechanical Ventilator O2 Flow Rate 40.00 40.00 03/12/19 03/12/19 03/12/19 03/12/19 14:00 14:00 14:35 15:00 Temp 99.8 Pulse 61 60 64 Resp 20 27 20 B/P (MAP) 142/83 158/89 (112) 148/87 (107) Pulse Ox 94 95 95 O2 Delivery Mechanical Ventilator Mechanical Ventilator Mechanical Ventilator O2 Flow Rate 45.00 45.00 45.00 FiO2 45 03/12/19 03/12/19 03/12/19 03/12/19 16:00 16:00 16:55 18:23 Pulse 72 69 76 Resp 20 21 B/P (MAP) 154/86 (108) 159/87 Pulse Ox 90 90 93 O2 Delivery Mechanical Ventilator Mechanical Ventilator O2 Flow Rate 45.00 FiO2 45 45 03/12/19 03/12/19 18:30 18:58 Temp 99.8 Pulse 76 Resp 21 Pulse Ox 93 FiO2 45 03/12/19 00:00 Intake Total 2125 ml Output Total 1525 ml Balance 600 ml Weight (Pounds): 228 Weight (Ounces): 0.1 Weight (Calculated Kilograms): 103.344303 Constitutional: appears stated age, AAO x 3; No apparent distress; well- developed, well-nourished, other (intubated/ventilated.) Respiratory: other (intubated/ventilated.) Cardiovascular: regular rate-rhythm; No irregularly irregular, No extra beats, No parasternal heave is noted, No JVD, No edema, No bradycardia, No tachycardia, No point of maximal impulse, No cardiac thrills are palpable; S1 and S2; No gallop/S3, No gallop/S4, No diastolic murmur, No systolic murmur, No friction rub, No click, No other Gastrointestional: No tender, No soft, No round, No distended, No pulsatile mass, No organomegaly, No guarding, No rebound, No tenderness, No hernia, No mass, No audible bowel sounds, No abnormal bowel sounds, No abdominal bruits, No spleenomegaly, No other Extremities: No normal range of motion, No non-tender, No normal inspection, No pedal edema, No calf tenderness, No normal capillary refill, No pelvis stable, No calf tenderness, No inflammation, No pedal edema, No slow capillary refill, No swelling, No other, No abrasion, No clubbing, No cyanosis, No ecchymosis, No laceration, No no lower extremity edema bilateral, No significant edema, No tenderness, No wound Neurologic/Psychiatric: other (intubated/ventilated.) Skin: No rash, No ulcerations Results/Procedures: Labs Laboratory Tests 03/12/19 00:09: Glucometer 221H 03/12/19 02:54: White Blood Count 7.2, Red Blood Count 5.42, Hemoglobin 14.5, Hematocrit 49, Mean Corpuscular Volume 90, Mean Corpuscular Hemoglobin 27, Mean Corpuscular Hemoglobin Concent 30L, Red Cell Distribution Width 16.1H, Platelet Count 161, Mean Platelet Volume 9.4, Neutrophils (%) (Auto) 86H, Lymphocytes (%) (Auto) 9L, Monocytes (%) (Auto) 5, Eosinophils (%) (Auto) 0, Basophils (%) (Auto) 0, Neutrophils # (Auto) 6.2, Lymphocytes # (Auto) 0.6L, Monocytes # (Auto) 0.4, Eosinophils # (Auto) 0.0, Basophils # (Auto) 0.0, Sodium Level 137, Potassium Level 4.8, Chloride Level 96L, Carbon Dioxide Level 30, Anion Gap 11, Blood Urea Nitrogen 22H, Creatinine 0.79, Estimat Glomerular Filtration Rate > 60, BUN/Creatinine Ratio 28, Glucose Level 195H, Calcium Level 9.3, Phosphorus Level 4.0, Magnesium Level 2.4 03/12/19 03:31: Blood Gas Puncture Site L RAD, Blood Gas Patient Temperature 99.6, Arterial Blood pH 7.37, Arterial Blood Partial Pressure CO2 63H, Arterial Blood Partial Pressure O2 70L, Arterial Blood HCO3 36H, Arterial Blood Total CO2 37.4H, Arterial Blood Oxygen Saturation 92L, Arterial Blood Base Excess 10.2H, Da Test YES-POS, Blood Gas Ventilator Setting YES, Blood Gas Inspired Oxygen 50% 03/12/19 12:45: Glucometer 200H 03/12/19 17:48: Vancomycin Level Trough 23.4H 03/12/19 18:22: Glucometer 179H Microbiology 03/09/19 Blood Culture - Preliminary, Resulted No growth 03/09/19 MRSA Screen - Final, Complete 03/09/19 Urine Culture - Final, Complete 3 or more isolates A/P: Assessment/Dx: Acute respiratory failure, COPD exacerbation, Possible acute diastolic congestive heart failure, Diabetes, Active smoking, Hyperlipidemia, Hypercalcemia Plan: Acute respiratory failure, COPD exacerbation. Intubated/ventilated. COPD exacerbation, Possible acute diastolic congestive heart failure, add BNP to the labs. Echocardiogram done 03/09/2019 shows normal LV function with mild to moderate diastolic dysfunction. Severe pulmonary hypertension. left heart catheterization done on 03/11/2019 showed a significantly elevated LVEDP suggesting diastolic dysfunction. IV Lasix was ordered. Positive troponin, likely type II myocardial infarction due to acute respiratory failure. Patient has significant risk factors for CAD including diabetes and active smoking. acute coronary syndrome due to plaque rupture cannot be ruled out. Patient will require coronary angiography once more stable respiratory- [place]. I will discuss with Dr. Silva. coronary angiography done 03/11/2019 which showed patent epicardial coronary arteries. Therefore working diagnosis is type II myocardial infarction. Diabetes, Active smoking, Hyperlipidemia, Hypercalcemia Thank you for your consultation. Please call me if you have any questions. Ceasar Zepeda MD, FACP, FACC, FSCAI, FHRS, CCDS Interventional Cardiology Cardiac Electrophysiology Vascular Medicine and Endovascular Interventions Nick ZEPEDA MD Mar 12, 2019 19:23
[2019-03-12] MEDS: cefTRIAXone 1,000 MG/SWFI 10 ML IV PUSH IV SCH ×2 (20:28)
[2019-03-13] VITALS (26 sets, daily range): BP systolic 90–183; BP diastolic 50–95
[2019-03-13] MEDS: RT-ALBUTEROL/IPRATROPIUM 3 ML (DUONEB) VIAL INH SCH ×6 (02:05→21:40)
[2019-03-13] MEDS ORDERED: POTASSIUM CL 10MEQ/50ML IVPB 50 ML IV SCH (04:45)
[2019-03-13] MEDS ORDERED: FUROSEMIDE 40 MG/4 ML INJ (LASIX) IVP ONE (04:45)
--- NOTE | 2019-03-13 04:45 | Pulmonary Progress Note ---
Subjective Time Seen by a Provider: 04:30 Subjective/Events-last exam PT is awake on vent. Propofol/precedex is infusing Sepsis Event Evaluation Height, Weight, BMI Height: 5'6.00" Weight: 228lbs. 0.1oz. 103.884416np; 33.9 BMI Method:Estimated Exam Exam Vital Signs Date Time Temp Pulse Resp B/P (MAP) Pulse Ox O2 Delivery O2 Flow Rate FiO2 03/13/19 04:00 98.9 71 20 101/58 (72) 96 Mechanical Ventilator 50.00 03/13/19 03:40 95 Mechanical Ventilator 50 03/13/19 02:05 74 20 93 80 03/13/19 02:00 77 11 90/50 (63) 91 Mechanical Ventilator 50.00 03/13/19 01:00 70 20 100/56 (71) 94 Mechanical Ventilator 50.00 03/13/19 01:00 71 03/13/19 00:15 80 20 94 Mechanical Ventilator 50.00 03/13/19 00:00 71 11 92/52 (65) 96 Mechanical Ventilator 50.00 03/12/19 23:50 91 Mechanical Ventilator 50 03/12/19 23:50 99.5 Mechanical Ventilator 50.00 03/12/19 23:00 73 19 144/86 (105) 92 Mechanical Ventilator 45.00 03/12/19 22:00 65 20 154/86 (108) 91 Mechanical Ventilator 45.00 03/12/19 21:39 72 20 91 45 03/12/19 21:00 61 19 150/83 (105) 91 Mechanical Ventilator 45.00 03/12/19 20:29 66 20 94 Mechanical Ventilator 45.00 03/12/19 20:00 66 20 156/87 (110) 93 Mechanical Ventilator 45.00 03/12/19 19:35 93 Mechanical Ventilator 45 03/12/19 19:00 65 03/12/19 19:00 97.8 66 20 138/80 (99) 94 Mechanical Ventilator 45.00 03/12/19 18:58 99.8 03/12/19 18:30 76 21 93 45 03/12/19 18:23 76 21 93 45 03/12/19 18:00 65 26 160/87 (111) 92 Mechanical Ventilator 45.00 03/12/19 17:00 68 19 157/89 (111) 91 Mechanical Ventilator 45.00 03/12/19 16:55 69 159/87 03/12/19 16:00 90 Mechanical Ventilator 45 03/12/19 16:00 72 20 154/86 (108) 90 Mechanical Ventilator 45.00 03/12/19 15:00 148/87 (107) Mechanical Ventilator 45.00 03/12/19 14:35 64 20 95 45 03/12/19 14:00 60 27 158/89 (112) 95 Mechanical Ventilator 45.00 03/12/19 14:00 99.8 61 20 142/83 94 Mechanical Ventilator 45.00 03/12/19 13:43 99.8 03/12/19 13:00 67 20 143/82 (102) 91 Mechanical Ventilator 40.00 03/12/19 13:00 63 03/12/19 12:00 65 20 136/77 (96) 88 Mechanical Ventilator 40.00 03/12/19 12:00 91 Mechanical Ventilator 40 03/12/19 11:00 69 20 120/74 (89) 89 Mechanical Ventilator 40.00 03/12/19 10:58 70 119/71 03/12/19 10:42 Mechanical Ventilator 40.00 03/12/19 10:25 65 21 95 45 03/12/19 10:00 68 20 118/73 (88) 93 Mechanical Ventilator 45.00 03/12/19 09:00 70 15 115/74 (88) 92 Mechanical Ventilator 45.00 03/12/19 08:54 69 20 92 45 03/12/19 08:00 94 Mechanical Ventilator 45 03/12/19 08:00 62 20 145/76 (99) 92 Mechanical Ventilator 45.00 03/12/19 07:53 98.8 64 20 147/76 Mechanical Ventilator 45.00 03/12/19 07:51 98.8 03/12/19 07:15 96 Mechanical Ventilator 45 03/12/19 07:00 62 03/12/19 07:00 62 19 147/80 (102) 92 Mechanical Ventilator 45.00 03/12/19 06:59 61 20 91 45 03/12/19 06:00 61 20 147/75 (99) 92 Mechanical Ventilator 45.00 03/12/19 05:00 62 35 143/74 (97) 92 Mechanical Ventilator 45.00 I & O 03/13/19 06:59 Intake Total 2430 ml Output Total 3295 ml Balance -865 ml Height & Weight Height: 5'6.00" Weight: 228lbs. 0.1oz. 103.773761lq; 33.9 BMI Method:Estimated General Appearance: No Apparent Distress, WD/WN, Other (sedated on vent) HEENT: PERRL/EOMI, Normal ENT Inspection, Pharynx Normal Neck: Full Range of Motion, Non Tender, Supple Respiratory: Chest Non Tender, No Accessory Muscle Use, No Respiratory Distress, Decreased Breath Sounds Cardiovascular: Regular Rate, Rhythm, No JVD, No Murmur Capillary Refill: Less Than 3 Seconds Gastrointestinal: normal bowel sounds, soft Extremity: Normal Capillary Refill, Normal Inspection, No Pedal Edema Neurologic/Psychiatric: Other (sedated on vent) Skin: Normal Color, Warm/Dry Lymphatic: No Adenopathy Results Lab Laboratory Tests 03/12/19 02:54 Assessment/Plan Assessment/Plan Acute respiratory failure - -Continue vent support -- -Not ready for weaning yet secondary to oxygen and ventilatory require ments. -Will probably start vent weaning attempts tomorrow. -CTA of chest - reviewed -GIve an extra 40mg of Lasix today -LABS PENDING -recheck BNP MRSA PNA - Sputum was obtained upon intubation. This is not ventilator associated PNA. -MRSA swab is positive and was done upon ICU admission -Continue vanco started 03/11 HX of severe oxygen dependent COPD -Last PFT was 2014 and shows severe emphysema -Prognosis is guarded to poor. -Will consult hospice to help with family education and continue aggressive/supportive measures. Grade 1 diastolic cardiomyopathy per Echo -Lasix 20mg BID COPDAE -Solumedrol - 40 IV Q 6 -SVNs Q 4 UTI -Rocephin -Cultures pending WESLEY ALMAGUER DO Mar 13, 2019 04:45
[2019-03-13 04:48] LABS: ABG BASE EXCESS 9.8 MMOL/L (-2.5-2.5); ABG OXYGEN SATURATION 97 % (94-100); ABG PCO2 55 MMHG (35-45); ABG PH 7.42 (7.37-7.43); ABG PO2 89 MMHG (79-93); ABG TCO2 36.5 MMOL/L (21.0-31.0)
[2019-03-13 04:53] LABS: ALLENS TEST YES-POS
[2019-03-13 04:54] LABS: INSPIRED O2 50%; PATIENT TEMP 97.1; VENTILATOR YES
[2019-03-13 04:58] LABS: BASOPHILS % (AUTO) 0 % (0-10); EOSINOPHILS # (AUTO) 0.2 10^3/uL (0.0-0.3); EOSINOPHILS % (AUTO) 2 % (0-10); HEMATOCRIT 49 % (35-52); HEMOGLOBIN 14.9 G/DL (11.5-16.0); LYMPHOCYTES # (AUTO) 0.5 X 10^3 (1.0-4.0); LYMPHOCYTES % (AUTO) 7 % (12-44); MEAN CORPUSCULAR HEMOGLOBIN 27 PG (25-34); MEAN CORPUSCULAR HGB CONC 30 G/DL (32-36); MEAN CORPUSCULAR VOLUME 89 FL (80-99); MEAN PLATELET VOLUME 10.1 FL (7.4-10.4); MONOCYTES # (AUTO) 0.4 X 10^3 (0.0-1.0); MONOCYTES % (AUTO) 6 % (0-12); NEUTROPHILS # (AUTO) 6.2 X 10^3 (1.8-7.8); NEUTROPHILS % (AUTO) 85 % (42-75); PLATELET COUNT 144 10^3/uL (130-400); RED CELL DISTRIBUTION WIDTH 16.4 % (10.0-14.5); WHITE BLOOD COUNT 7.2 10^3/uL (4.3-11.0)
[2019-03-13 05:13] LABS: BUN/CREATININE RATIO 36; CALCIUM 9.6 MG/DL (8.5-10.1); CARBON DIOXIDE 28 MMOL/L (21-32); CHLORIDE 98 MMOL/L (98-107); CREATININE SERUM 0.84 MG/DL (0.60-1.30); GFR ESTIMATED > 60; GLUCOSE 203 MG/DL (70-105); PHOSPHORUS 4.7 MG/DL (2.3-4.7); POTASSIUM 5.2 MMOL/L (3.6-5.0); SODIUM 138 MMOL/L (135-145); TRIGLYCERIDES 405 MG/DL (<150)
[2019-03-13] MEDS: POTASSIUM CL 10MEQ/50ML IVPB 50 ML IV SCH ×2 (05:29)
[2019-03-13] MEDS: MAGNESIUM 1 GM/100 ML IVPB 100 ML IV SCH ×2 (05:29→05:30)
[2019-03-13] MEDS: KCL 20 MEQ TAB (K-DUR) PO SCH ×2 (05:30)
[2019-03-13] MEDS: inSUlin ASPART (NovoLOG) 1 UNIT/0.01 ML (CHARGE PER UNIT) SQ SCH ×4 (05:44→23:56)
[2019-03-13] MEDS: FAMOTIDINE 20MG/2ML IV (PEPCID) IV SCH ×2 (05:44→17:56)
[2019-03-13] MEDS: methylPREDNISolone 40 MG/ML (Solu-MEDROL) VIAL IV SCH ×4 (05:44→23:56)
[2019-03-13] MEDS: FUROSEMIDE 40 MG/4 ML INJ (LASIX) IVP SCH (05:56)
[2019-03-13] MEDS ORDERED: TROUGH ORDER-PHARMACY XX NR (06:00)
[2019-03-13] MEDS: RT-BUDESONIDE NEBS 0.5 MG/2ML (PULMICORT) AMP INH SCH ×2 (07:42→19:00)
[2019-03-13] MEDS: ENOXAPARIN 40 MG/0.4 ML (LOVENOX) SYR SC SCH (07:53)
--- NOTE | 2019-03-13 08:15 | Diagnostic Imaging Report ---
INDICATION: Respiratory failure. Comparison made with prior examination 03/12/2019. FINDINGS: The heart size is normal. There is some right basilar atelectasis and/or pneumonitis. There is no pleural effusion or pneumothorax. Mediastinum is unremarkable. ET and NG tubes are in satisfactory position. IMPRESSION: Right basilar atelectasis and/or pneumonitis. Dictated by: Dictated on workstation # [id number]
[2019-03-13] MEDS: VANCOMYCIN 1 GM/NS 250 ML IVPB IV SCH ×4 (09:48→22:24)
--- NOTE | 2019-03-13 10:50 | Progress Note ---
Subjective Subjective/Events-last exam Afebrile, still requiring high PEEP and FiO2. Objective Exam Last Set of Vital Signs Vital Signs Date Time Temp Pulse Resp B/P (MAP) Pulse Ox O2 Delivery O2 Flow Rate FiO2 03/13/19 09:24 53 20 92 45 03/13/19 08:00 98.8 124/73 (90) Mechanical Ventilator 45.00 Capillary Refill : Less Than 3 Seconds I&O Intake and Output 03/13/19 00:00 Intake Total 2750 ml Output Total 3770 ml Balance -1020 ml Intake Oral 0 ml IV Total 2720 ml Other 30 ml Output Urine Total 3770 ml General: Other (sedated and intubated) Lungs: Clear to Auscultation, Normal Air Movement Heart: Regular Rate, No Murmurs Neuro: Normal Speech Psych/Mental Status: Mental Status NL Results/Procedures Lab Laboratory Tests 03/12/19 12:45: Glucometer 200H 03/12/19 17:48: Vancomycin Level Trough 23.4H 03/12/19 18:22: Glucometer 179H 03/12/19 23:45: Glucometer 218H 03/13/19 04:30: Blood Gas Puncture Site LEFT RADIAL, Blood Gas Patient Temperature 97.1, Art erial Blood pH 7.42, Arterial Blood Partial Pressure CO2 55H, Arterial Blood Partial Pressure O2 89, Arterial Blood HCO3 35H, Arterial Blood Total CO2 36.5H, Arterial Blood Oxygen Saturation 97, Arterial Blood Base Excess 9.8H, Da Test YES-POS, Blood Gas Ventilator Setting YES, Blood Gas Inspired Oxygen 50% 03/13/19 04:45: White Blood Count 7.2, Red Blood Count 5.55, Hemoglobin 14.9, Hematocrit 49, Me an Corpuscular Volume 89, Mean Corpuscular Hemoglobin 27, Mean Corpuscular Hemoglobin Concent 30L, Red Cell Distribution Width 16.4H, Platelet Count 144, Mean Platelet Volume 10.1, Neutrophils (%) (Auto) 85H, Lymphocytes (%) (Auto) 7L , Monocytes (%) (Auto) 6, Eosinophils (%) (Auto) 2, Basophils (%) (Auto) 0, Neutrophils # (Auto) 6.2, Lymphocytes # (Auto) 0.5L, Monocytes # (Auto) 0.4, Eosinophils # (Auto) 0.2, Basophils # (Auto) 0.0, Sodium Level 138, Potassium Level 5.2H, Chloride Level 98, Carbon Dioxide Level 28, Anion Gap 12, Blood Urea Nitrogen 30H, Creatinine 0.84, Estimat Glomerular Filtration Rate > 60, BUN /Creatinine Ratio 36, Glucose Level 203H, Calcium Level 9.6, Phosphorus Level 4.7, Magnesium Level 2.0, B-Type Natriuretic Peptide 55.7, Triglycerides Level 405H, Vancomycin Level Trough 12.6 Microbiology 03/09/19 Blood Culture - Preliminary, Resulted No growth 03/09/19 MRSA Screen - Final, Complete 03/09/19 Urine Culture - Final, Complete 3 or more isolates Radiology CXR 03/09: No acute cardiopulmonary process Assessment/Plan Assessment/Plan (1) Respiratory acidosis Status: Acute Assessment & Plan: Acute, severe with pH 7.16 on admit. 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 03/10 continues to improve, remains intubated 03/11 weaning trial this pm 03/12- unable to wean, Dr. Silva consulted hospice for education, continuing current care at this time 03/13- remains with high ventilation requirements, Palliative care planning to speak with family when available. (2) Acute on chronic respiratory failure with hypoxia and hypercapnia Status: Acute Assessment & Plan: Dr. Silva consulted, patient intubated and on solumedrol and ceftriaxone. No clear evidence of pneumonia on chest x-ray. CTA pending. 03/10 CTA with no PE, minimal infiltrate or atelectasis in anterior RUL and posterior RLL (3) HTN (hypertension) Status: Chronic Assessment & Plan: BP borderline to low initially. Qualifiers: Qualified Codes: I10 - Essential (primary) hypertension (4) Non-insulin treated type 2 diabetes mellitus Status: Chronic Assessment & Plan: ICU sliding scale insulin. (5) Hypothyroidism Status: Chronic (6) Hypercalcemia Status: Acute Assessment & Plan: PTH pending. 03/10 PTH high, vitamin D low (7) Elevated troponin Status: Acute Assessment & Plan: 03/11- Cardiology consulted, cath done this am. (8) DVT prophylaxis Status: Acute Assessment & Plan: Enoxaparin Clinical Quality Measures DVT/VTE Risk/Contraindication: Risk Factor Score Per Nursin RFS Level Per Nursing on Admit: 4+=Very High VAN GONZALEZ MD Mar 13, 2019 10:50
--- NOTE | 2019-03-13 11:16 | NUR ---
Palliative Care RN in to see patient. She remains intubated without the ability to start weaning due to the Vent requirements at present. Nursing reports family will not be in until this evening and had mentioned to her that they wish that they could talk to Shira tomorrow. I called Shira, he will be rounding at his usual early childhood education worker hour. He indicated that he is hopeful that on Saturday we will be able to extubate. He has asked me to hold until Saturday.
--- NOTE | 2019-03-13 11:54 | Cardiology Progress Note ---
Cardiology SOAP Progress Note Subjective: Still intubated/extubated. Objective: I&O/Vital Signs 03/12/19 03/12/19 03/13/19 03/13/19 23:50 23:50 00:00 00:15 Temp 99.5 Pulse 71 80 Resp 11 20 B/P (MAP) 92/52 (65) Pulse Ox 91 96 94 O2 Delivery Mechanical Ventilator Mechanical Ventilator Mechanical Ventilator Mechanical Ventilator O2 Flow Rate 50.00 50.00 50.00 FiO2 50 03/13/19 03/13/19 03/13/19 03/13/19 01:00 01:00 02:00 02:05 Pulse 71 70 77 74 Resp 20 11 20 B/P (MAP) 100/56 (71) 90/50 (63) Pulse Ox 94 91 93 O2 Delivery Mechanical Ventilator Mechanical Ventilator O2 Flow Rate 50.00 50.00 FiO2 80 03/13/19 03/13/19 03/13/19 03/13/19 03:40 04:00 04:45 04:58 Temp 98.9 Pulse 71 Resp 20 B/P (MAP) 101/58 (72) Pulse Ox 95 96 O2 Delivery Mechanical Ventilator Mechanical Ventilator Mechanical Ventilator Mechanical Ventilator O2 Flow Rate 50.00 45.00 45.00 FiO2 50 03/13/19 03/13/19 03/13/19 03/13/19 05:00 06:00 07:00 07:00 Pulse 69 69 75 75 Resp 18 20 20 B/P (MAP) 95/58 (70) 91/63 (72) 108/65 (79) Pulse Ox 95 92 90 O2 Delivery Mechanical Ventilator Mechanical Ventilator Mechanical Ventilator O2 Flow Rate 45.00 45.00 45.00 03/13/19 03/13/19 03/13/19 03/13/19 07:43 07:55 08:00 08:00 Temp 98.8 Pulse 68 67 68 Resp 20 20 B/P (MAP) 108/65 124/73 (90) Pulse Ox 91 91 91 O2 Delivery Mechanical Ventilator Mechanical Ventilator O2 Flow Rate 45.00 FiO2 45 45 03/13/19 03/13/19 03/13/19 03/13/19 09:00 09:24 10:00 11:00 Pulse 58 53 53 55 Resp 19 20 20 20 B/P (MAP) 110/64 (79) 145/81 (102) 149/84 (105) Pulse Ox 92 92 92 92 O2 Delivery Mechanical Ventilator Mechanical Ventilator Mechanical Ventilator O2 Flow Rate 45.00 45.00 45.00 FiO2 45 03/13/19 00:00 Intake Total 1850 ml Output Total 1320 ml Balance 530 ml Weight (Pounds): 224 Weight (Ounces): 5.0 Weight (Calculated Kilograms): 101.292497 Constitutional: appears stated age, AAO x 3; No apparent distress; well- developed, well-nourished, other (intubated/ventilated.) Respiratory: other (intubated/ventilated.) Cardiovascular: regular rate-rhythm; No irregularly irregular, No extra beats, No parasternal heave is noted, No JVD, No edema, No bradycardia, No tachycardia, No point of maximal impulse, No cardiac thrills are palpable; S1 and S2; No gallop/S3, No gallop/S4, No diastolic murmur, No systolic murmur, No friction rub, No click, No other Gastrointestional: No tender, No soft, No round, No distended, No pulsatile mass, No organomegaly, No guarding, No rebound, No tenderness, No hernia, No mass, No audible bowel sounds, No abnormal bowel sounds, No abdominal bruits, No spleenomegaly, No other Extremities: No normal range of motion, No non-tender, No normal inspection, No pedal edema, No calf tenderness, No normal capillary refill, No pelvis stable, No calf tenderness, No inflammation, No pedal edema, No slow capillary refill, No swelling, No other, No abrasion, No clubbing, No cyanosis, No ecchymosis, No laceration, No no lower extremity edema bilateral, No significant edema, No tenderness, No wound Neurologic/Psychiatric: other (intubated/ventilated.) Skin: No rash, No ulcerations Results/Procedures: Labs Laboratory Tests 03/12/19 12:45: Glucometer 200H 03/12/19 17:48: Vancomycin Level Trough 23.4H 03/12/19 18:22: Glucometer 179H 03/12/19 23:45: Glucometer 218H 03/13/19 04:30: Blood Gas Puncture Site LEFT RADIAL, Blood Gas Patient Temperature 97.1, Arterial Blood pH 7.42, Arterial Blood Partial Pressure CO2 55H, Arterial Blood Partial Pressure O2 89, Arterial Blood HCO3 35H, Arterial Blood Total CO2 36.5H, Arterial Blood Oxygen Saturation 97, Arterial Blood Base Excess 9.8H, Da Test YES-POS, Blood Gas Ventilator Setting YES, Blood Gas Inspired Oxygen 50% 03/13/19 04:45: White Blood Count 7.2, Red Blood Count 5.55, Hemoglobin 14.9, Hematocrit 49, Mean Corpuscular Volume 89, Mean Corpuscular Hemoglobin 27, Mean Corpuscular Hemoglobin Concent 30L, Red Cell Distribution Width 16.4H, Platelet Count 144, Mean Platelet Volume 10.1, Neutrophils (%) (Auto) 85H, Lymphocytes (%) (Auto) 7L , Monocytes (%) (Auto) 6, Eosinophils (%) (Auto) 2, Basophils (%) (Auto) 0, Neutrophils # (Auto) 6.2, Lymphocytes # (Auto) 0.5L, Monocytes # (Auto) 0.4, Eosinophils # (Auto) 0.2, Basophils # (Auto) 0.0, Sodium Level 138, Potassium Level 5.2H, Chloride Level 98, Carbon Dioxide Level 28, Anion Gap 12, Blood Urea Nitrogen 30H, Creatinine 0.84, Estimat Glomerular Filtration Rate > 60, BUN/Creatinine Ratio 36, Glucose Level 203H, Calcium Level 9.6, Phosphorus Level 4.7, Magnesium Level 2.0, B-Type Natriuretic Peptide 55.7, Triglycerides Level 405H, Vancomycin Level Trough 12.6 03/13/19 10:58: Glucometer 205H Microbiology 03/09/19 Blood Culture - Preliminary, Resulted No growth 03/09/19 MRSA Screen - Final, Complete 03/09/19 Urine Culture - Final, Complete 3 or more isolates A/P: Assessment/Dx: Acute respiratory failure, COPD exacerbation, Possible acute diastolic congestive heart failure, Diabetes, Active smoking, Hyperlipidemia, Hypercalcemia Plan: Acute respiratory failure, COPD exacerbation. Intubated/ventilated. COPD exacerbation, Possible acute diastolic congestive heart failure, add BNP to the labs. Echocardiogram done 03/09/2019 shows normal LV function with mild to moderate diastolic dysfunction. Severe pulmonary hypertension. left heart catheterization done on 03/11/2019 showed a significantly elevated LVEDP suggesting diastolic dysfunction. IV Lasix was ordered. Positive troponin, likely type II myocardial infarction due to acute respiratory failure. Patient has significant risk factors for CAD including diabetes and active smoking. acute coronary syndrome due to plaque rupture cannot be ruled out. Patient will require coronary angiography once more stable respiratory- [place]. I will discuss with Dr. Silva. coronary angiography done 03/11/2019 which showed patent epicardial coronary arteries. Therefore working diagnosis is type II myocardial infarction. Diabetes, Active smoking, Hyperlipidemia, Hypercalcemia Thank you for your consultation. Please call me if you have any questions. Ceasar Zepeda MD, FACP, FACC, FSCAI, FHRS, CCDS Interventional Cardiology Cardiac Electrophysiology Vascular Medicine and Endovascular Interventions Nick ZEPEDA MD Mar 13, 2019 11:54
[2019-03-13] MEDS: DEXMEDETOMIDINE INJECTION 1,000 MCG in NS (IVPB) 240 ML IV SCH ×2 (12:22→18:31)
[2019-03-13] MEDS: cefTRIAXone 1,000 MG/SWFI 10 ML IV PUSH IV SCH ×2 (22:23)
[2019-03-13] MEDS: NS IV 1000 ML 1,000 ML IV SCH (22:24)
[2019-03-14] VITALS (26 sets, daily range): BP systolic 102–175; BP diastolic 63–106
[2019-03-14] MEDS: hydrALAZINE (APESOLINE) 20 MG/ML VIAL IV PRN (01:49)
[2019-03-14] MEDS: fentaNYL INJECTION 100 MCG/2 ML AMP IV PRN (01:49)
[2019-03-14] MEDS: DEXMEDETOMIDINE INJECTION 1,000 MCG in NS (IVPB) 240 ML IV SCH (02:05)
[2019-03-14] MEDS: RT-ALBUTEROL/IPRATROPIUM 3 ML (DUONEB) VIAL INH SCH ×6 (02:30→21:19)
[2019-03-14 03:28] LABS: BASOPHILS % (AUTO) 0 % (0-10); EOSINOPHILS % (AUTO) 0 % (0-10); HEMATOCRIT 47 % (35-52); HEMOGLOBIN 14.6 G/DL (11.5-16.0); LYMPHOCYTES # (AUTO) 0.4 X 10^3 (1.0-4.0); LYMPHOCYTES % (AUTO) 6 % (12-44); MEAN CORPUSCULAR HEMOGLOBIN 27 PG (25-34); MEAN CORPUSCULAR HGB CONC 31 G/DL (32-36); MEAN CORPUSCULAR VOLUME 88 FL (80-99); MEAN PLATELET VOLUME 9.8 FL (7.4-10.4); MONOCYTES # (AUTO) 0.3 X 10^3 (0.0-1.0); MONOCYTES % (AUTO) 6 % (0-12); NEUTROPHILS # (AUTO) 5.5 X 10^3 (1.8-7.8); NEUTROPHILS % (AUTO) 88 % (42-75); PLATELET COUNT 135 10^3/uL (130-400); RED CELL DISTRIBUTION WIDTH 15.5 % (10.0-14.5); WHITE BLOOD COUNT 6.2 10^3/uL (4.3-11.0)
[2019-03-14 03:29] LABS: ABG BASE EXCESS 9.1 MMOL/L (-2.5-2.5); ABG OXYGEN SATURATION 95 % (94-100); ABG PCO2 52 MMHG (35-45); ABG PH 7.43 (7.37-7.43); ABG PO2 77 MMHG (79-93); ABG TCO2 35.4 MMOL/L (21.0-31.0)
[2019-03-14 03:31] LABS: ALLENS TEST YES-POS; INSPIRED O2 50%; PATIENT TEMP 98.3; VENTILATOR YES
[2019-03-14] MEDS: NS IV 1000 ML 1,000 ML IV SCH (03:46)
[2019-03-14 03:47] LABS: BUN/CREATININE RATIO 35; CALCIUM 9.3 MG/DL (8.5-10.1); CARBON DIOXIDE 25 MMOL/L (21-32); CHLORIDE 98 MMOL/L (98-107); CREATININE SERUM 0.79 MG/DL (0.60-1.30); GFR ESTIMATED > 60; GLUCOSE 230 MG/DL (70-105); MAGNESIUM 2.2 MG/DL (1.6-2.4); PHOSPHORUS 3.6 MG/DL (2.3-4.7); POTASSIUM 4.4 MMOL/L (3.6-5.0); SODIUM 138 MMOL/L (135-145)
[2019-03-14] MEDS: KCL 20 MEQ TAB (K-DUR) PO SCH (06:09)
[2019-03-14] MEDS: POTASSIUM CL 10MEQ/50ML IVPB 50 ML IV SCH ×3 (06:09→23:30)
[2019-03-14] MEDS: MAGNESIUM 1 GM/100 ML IVPB 100 ML IV SCH (06:09)
[2019-03-14] MEDS: RT-BUDESONIDE NEBS 0.5 MG/2ML (PULMICORT) AMP INH SCH ×2 (06:24→19:28)
[2019-03-14] MEDS: methylPREDNISolone 40 MG/ML (Solu-MEDROL) VIAL IV SCH ×3 (06:46→17:22)
[2019-03-14] MEDS: FAMOTIDINE 20MG/2ML IV (PEPCID) IV SCH ×2 (06:46→17:22)
[2019-03-14] MEDS: inSUlin ASPART (NovoLOG) 1 UNIT/0.01 ML (CHARGE PER UNIT) SQ SCH ×3 (06:47→18:09)
--- NOTE | 2019-03-14 08:09 | Diagnostic Imaging Report ---
INDICATION: Respiratory failure. CHF. Pneumonia. COMPARISON: 03/13/2019 FINDINGS: Single frontal radiographic view of the chest was obtained and demonstrates indwelling endotracheal tube with tip at the clavicular heads. Gastric tube extends inferiorly beyond the [id number]. Cardiac silhouette and pulmonary vasculature are within normal limits. Patchy asymmetric right basilar airspace opacities persist. Left lung is relatively clear. There is no large effusion or pneumothorax. Osseous structures show no gross acute abnormalities. IMPRESSION: 1. Persistent asymmetric patchy airspace opacities within the right base concerning for infiltrate or atelectasis. 2. Lines and tubes as above. Dictated by: Dictated on workstation # [id number]
[2019-03-14] MEDS: VANCOMYCIN 1 GM/NS 250 ML IVPB IV SCH ×4 (08:20→21:09)
[2019-03-14] MEDS: ENOXAPARIN 40 MG/0.4 ML (LOVENOX) SYR SC SCH (08:20)
[2019-03-14] MEDS: FUROSEMIDE 40 MG/4 ML INJ (LASIX) IVP SCH (08:20)
[2019-03-14 09:05] LABS: ABG OXYGEN SATURATION 95 % (94-100); ABG PCO2 55 MMHG (35-45); ABG PH 7.43 (7.37-7.43); ABG PO2 71 MMHG (79-93); ABG TCO2 37.7 MMOL/L (21.0-31.0)
[2019-03-14 09:06] LABS: ALLENS TEST YES-POS; INSPIRED O2 VENT; PATIENT TEMP 97.4; VENTILATOR YES
--- NOTE | 2019-03-14 09:24 | NUR ---
ABG RESULTS GIVEN TO DR ALMAGUER. OK TO EXTUBATE PT.
--- NOTE | 2019-03-14 09:35 | NUR ---
PT EXTUBATED AND PLACED ON VAPOTHERM 30L 75%, SATS IN HIGH 80S- LOW 90S DR ALMAGUER NOTIFIED
[2019-03-14] MEDS ORDERED: FUROSEMIDE 40 MG/4 ML INJ (LASIX) IVP ONE (10:15)
--- NOTE | 2019-03-14 13:50 | Progress Note - Hospitalist ---
Subjective HPI/CC On Admission Date Seen by Provider: Mar 14, 2019 Time Seen by Provider: 08:30 Subjective/Events-last exam Patient on ventilator awake and alert appears to be in no acute distress. She is on a pressure support trial currently tolerating it well she appears to be in no acute distress. Hands are re-strained for safety. Objective Exam Vital Signs Vital Signs Date Time Temp Pulse Resp B/P (MAP) Pulse Ox O2 Delivery O2 Flow Rate FiO2 03/14/19 12:24 96 03/14/19 12:00 9 139/88 (105) 99 Vapotherm 75.00 30.00 03/14/19 12:00 97.0 03/14/19 11:19 75 Capillary Refill : Less Than 3 Seconds General Appearance: No Apparent Distress Respiratory: No Accessory Muscle Use, No Respiratory Distress, Other (Diminished breath sounds in both bases anteriorly chest is clear) Cardiovascular: Regular Rate, Rhythm, No Edema, No Gallop Gastrointestinal: Normal Bowel Sounds, No Organomegaly, No Pulsatile Mass, Non Tender, Soft Results/Procedures Lab Laboratory Tests 03/14/19 02:59 Patient resulted labs reviewed. Assessment/Plan Assessment and Plan Assess & Plan/Chief Complaint Acute respiratory failure - -Continue vent support -- Thus far doing well on pressure support trial potential extubation later per Dr. Silva -CTA of chest - reviewed -GIve an extra 40mg of Lasix today -LABS PENDING -recheck BNP MRSA PNA - Sputum was obtained upon intubation. This is not ventilator associated PNA. -MRSA swab is positive and was done upon ICU admission -Continue vanco started 03/11 HX of severe oxygen dependent COPD -Last PFT was 2014 and shows severe emphysema -Prognosis is guarded to poor. -Will consult hospice to help with family education and continue aggressive/supportive measures. Grade 1 diastolic cardiomyopathy per Echo -Lasix 20mg BID COPDAE -Solumedrol - 40 IV Q 6 -SVNs Q 4 Clinical Quality Measures DVT/VTE Risk/Contraindication: Risk Factor Score Per Nursin RFS Level Per Nursing on Admit: 4+=Very High SUSAN DUPONT MD Mar 14, 2019 13:49
--- NOTE | 2019-03-14 14:11 | Progress Note - Cardiology ---
Cardiology SOAP Progress Note Subjective: No cp or palp or syncope No shortness of breath at rest Objective: I&O/Vital Signs 03/14/19 03/14/19 03/14/19 03/14/19 02:30 03:00 03:47 03:48 Temp 98.4 Pulse 61 66 Resp 20 21 B/P (MAP) 131/82 (98) 149/90 Pulse Ox 93 93 O2 Delivery Mechanical Ventilator O2 Flow Rate 50.00 FiO2 50 03/14/19 03/14/19 03/14/19 03/14/19 04:00 04:00 05:00 06:00 Pulse 61 68 55 Resp 19 19 19 B/P (MAP) 154/90 (111) 126/76 (93) 136/82 (100) Pulse Ox 93 95 95 96 O2 Delivery Mechanical Ventilator Mechanical Ventilator Mechanical Ventilator Mechanical Ventilator O2 Flow Rate 50.00 50.00 50.00 FiO2 50 03/14/19 03/14/19 03/14/19 03/14/19 06:25 06:46 07:00 07:00 Pulse 53 61 52 Resp 20 20 B/P (MAP) 147/88 112/98 (103) Pulse Ox 96 96 O2 Delivery Mechanical Ventilator O2 Flow Rate 50.00 FiO2 50 03/14/19 03/14/19 03/14/19 03/14/19 08:00 08:00 08:00 09:00 Temp 98.0 Pulse 64 68 Resp 16 17 B/P (MAP) 154/103 (120) 143/90 (107) Pulse Ox 95 95 O2 Delivery Mechanical Ventilator Mechanical Ventilator Mechanical Ventilator O2 Flow Rate 50.00 50.00 FiO2 50 03/14/19 03/14/19 03/14/19 03/14/19 09:51 10:00 10:26 11:00 Pulse 77 55 Resp 15 20 B/P (MAP) 137/105 (116) 162/85 (110) Pulse Ox 96 96 91 O2 Delivery Vapotherm Vapotherm Vapotherm Vapotherm O2 Flow Rate 75.00 75.00 30.00 75.00 30.00 30.00 30.00 FiO2 75 03/14/19 03/14/19 03/14/19 03/14/19 11:19 12:00 12:00 12:24 Temp 97.0 Pulse 89 96 Resp 9 B/P (MAP) 139/88 (105) Pulse Ox 95 99 O2 Delivery Vapotherm Vapotherm O2 Flow Rate 30.00 75.00 30.00 FiO2 75 03/14/19 13:00 Pulse 95 Resp 13 B/P (MAP) 136/91 (106) O2 Delivery Vapotherm O2 Flow Rate 75.00 30.00 03/14/19 00:00 Intake Total 1590 ml Output Total 675 ml Balance 915 ml Weight (Pounds): 221 Weight (Ounces): 6.0 Weight (Calculated Kilograms): 100.164585 Constitutional: appears stated age, AAO x 3, well-developed, well-nourished Respiratory: other (fair to good bilat air entry, diminished at the bases) Cardiovascular: regular rate-rhythm, S1 and S2, systolic murmur (soft CHANEL at card base) Gastrointestional: No tender; soft; No guarding, No rebound; audible bowel sounds Extremities: other (mild, bilat leg edema); No clubbing, No cyanosis Neurologic/Psychiatric: oriented x 3, other (moves all limbs equally) Skin: No rash, No ulcerations Results/Procedures: Labs Laboratory Tests 03/13/19 16:14: Glucometer 198H 03/13/19 17:54: Glucometer 201H 03/13/19 23:48: Glucometer 214H 03/14/19 02:59: White Blood Count 6.2, Red Blood Count 5.40, Hemoglobin 14.6, Hematocrit 47, Mean Corpuscular Volume 88, Mean Corpuscular Hemoglobin 27, Mean Corpuscular Hemoglobin Concent 31L, Red Cell Distribution Width 15.5H, Platelet Count 135, Mean Platelet Volume 9.8, Neutrophils (%) (Auto) 88H, Lymphocytes (%) (Auto) 6L, Monocytes (%) (Auto) 6, Eosinophils (%) (Auto) 0, Basophils (%) (Auto) 0, Neutrophils # (Auto) 5.5, Lymphocytes # (Auto) 0.4L, Monocytes # (Auto) 0.3, Eosinophils # (Auto) 0.0, Basophils # (Auto) 0.0, Sodium Level 138, Potassium Level 4.4, Chloride Level 98, Carbon Dioxide Level 25, Anion Gap 15H, Blood Urea Nitrogen 28H, Creatinine 0.79, Estimat Glomerular Filtration Rate > 60, BUN/Creatinine Ratio 35, Glucose Level 230H, Calcium Level 9.3, Phosphorus Level 3.6, Magnesium Level 2.2 03/14/19 03:21: Blood Gas Puncture Site LEFT RADIAL, Blood Gas Patient Temperature 98.3, Arterial Blood pH 7.43, Arterial Blood Partial Pressure CO2 52H, Arterial Blood Partial Pressure O2 77L, Arterial Blood HCO3 34H, Arterial Blood Total CO2 35.4H , Arterial Blood Oxygen Saturation 95, Arterial Blood Base Excess 9.1H, Da Test YES-POS, Blood Gas Ventilator Setting YES, Blood Gas Inspired Oxygen 50% 03/14/19 09:01: Blood Gas Puncture Site R.RADIAL, Blood Gas Patient Temperature 97.4, Arterial Blood pH 7.43, Arterial Blood Partial Pressure CO2 55H, Arterial Blood Partial Pressure O2 71L, Arterial Blood HCO3 36H, Arterial Blood Total CO2 37.7H, Arterial Blood Oxygen Saturation 95, Arterial Blood Base Excess 11.0H, Da Test YES-POS, Blood Gas Ventilator Setting YES, Blood Gas Inspired Oxygen VENT 03/14/19 11:46: Glucometer 242H Microbiology 03/09/19 Blood Culture - Final, Complete No growth 03/09/19 MRSA Screen - Final, Complete 03/09/19 Urine Culture - Final, Complete 3 or more isolates Laboratory Tests 03/13/19 04:45 03/14/19 02:59 A/P: Assessment: Acute Type 2 Resp Failure due to ac exac of COPD, obesity-hypoventilation, and ac diastolic CHF Echo 03/09/2019: LVEF 55-65%, grade 1 diastolic dysfunction, PASP 62 mmHg Mild CAD and elevated LVEDP on card cath of 03/11/2019 DM II Smoker of cigarettes Hyperlipidemia, by history Plan: * I reviewed her records, interviewed her, and examined her * Continue current regimen * Add low dose ASA because of mild CAD * Add beta-pasquale because of hypertension * Monitor labs JENNIE ROGERS MD FACP [facility] Mar 14, 2019 14:11
[2019-03-14] MEDS ORDERED: ASPIRIN 81 MG CHEW (CHILDREN'S ASA) PO ONE (14:15)
[2019-03-14] MEDS ORDERED: meTOproloL SUCCINATE 50 MG (TOPROL XL) TAB PO NR (14:15)
[2019-03-14 20:40] LABS: BUN/CREATININE RATIO 33; CALCIUM 10.4 MG/DL (8.5-10.1); CARBON DIOXIDE 34 MMOL/L (21-32); CHLORIDE 96 MMOL/L (98-107); CREATININE SERUM 0.84 MG/DL (0.60-1.30); GFR ESTIMATED > 60; GLUCOSE 187 MG/DL (70-105); MAGNESIUM 1.8 MG/DL (1.6-2.4); POTASSIUM 3.6 MMOL/L (3.6-5.0); SODIUM 144 MMOL/L (135-145)
[2019-03-14] MEDS: cefTRIAXone 1,000 MG/SWFI 10 ML IV PUSH IV SCH ×2 (21:09)
[2019-03-15] VITALS (25 sets, daily range): BP systolic 104–169; BP diastolic 70–102
[2019-03-15] MEDS: methylPREDNISolone 40 MG/ML (Solu-MEDROL) VIAL IV SCH ×4 (00:55→18:02)
[2019-03-15] MEDS: inSUlin ASPART (NovoLOG) 1 UNIT/0.01 ML (CHARGE PER UNIT) SQ SCH ×4 (00:55→18:08)
[2019-03-15] MEDS: RT-ALBUTEROL/IPRATROPIUM 3 ML (DUONEB) VIAL INH SCH ×6 (02:00→22:42)
[2019-03-15 03:51] LABS: ABG BASE EXCESS 13.8 MMOL/L (-2.5-2.5); ABG OXYGEN SATURATION 93 % (94-100); ABG PCO2 63 MMHG (35-45); ABG PH 7.41 (7.37-7.43); ABG PO2 68 MMHG (79-93); ABG TCO2 41.1 MMOL/L (21.0-31.0)
[2019-03-15 03:55] LABS: ALLENS TEST YES-POS; INSPIRED O2 40%; PATIENT TEMP 98.3; VENTILATOR NO
[2019-03-15 04:00] LABS: BASOPHILS % (AUTO) 0 % (0-10); EOSINOPHILS % (AUTO) 0 % (0-10); HEMATOCRIT 51 % (35-52); HEMOGLOBIN 15.2 G/DL (11.5-16.0); LYMPHOCYTES # (AUTO) 0.5 X 10^3 (1.0-4.0); LYMPHOCYTES % (AUTO) 4 % (12-44); MEAN CORPUSCULAR HEMOGLOBIN 27 PG (25-34); MEAN CORPUSCULAR HGB CONC 30 G/DL (32-36); MEAN CORPUSCULAR VOLUME 90 FL (80-99); MEAN PLATELET VOLUME 10.3 FL (7.4-10.4); MONOCYTES # (AUTO) 0.9 X 10^3 (0.0-1.0); MONOCYTES % (AUTO) 7 % (0-12); NEUTROPHILS # (AUTO) 12.1 X 10^3 (1.8-7.8); NEUTROPHILS % (AUTO) 89 % (42-75); PLATELET COUNT 227 10^3/uL (130-400); RED CELL DISTRIBUTION WIDTH 16.4 % (10.0-14.5); WHITE BLOOD COUNT 13.5 10^3/uL (4.3-11.0)
[2019-03-15 04:25] LABS: BUN/CREATININE RATIO 36; CALCIUM 10.1 MG/DL (8.5-10.1); CARBON DIOXIDE 35 MMOL/L (21-32); CHLORIDE 98 MMOL/L (98-107); CREATININE SERUM 0.85 MG/DL (0.60-1.30); GFR ESTIMATED > 60; GLUCOSE 185 MG/DL (70-105); MAGNESIUM 1.9 MG/DL (1.6-2.4); PHOSPHORUS 3.1 MG/DL (2.3-4.7); POTASSIUM 3.5 MMOL/L (3.6-5.0); SODIUM 144 MMOL/L (135-145); TRIGLYCERIDES 304 MG/DL (<150)
[2019-03-15] MEDS: MAGNESIUM 1 GM/100 ML IVPB 100 ML IV SCH (04:30)
[2019-03-15] MEDS: POTASSIUM CL 10MEQ/50ML IVPB 50 ML IV SCH ×3 (04:30→07:58)
[2019-03-15] MEDS: KCL 20 MEQ TAB (K-DUR) PO SCH (04:30)
[2019-03-15] MEDS ORDERED: POTASSIUM CL 10MEQ/50ML IVPB 50 ML IV SCH (05:00)
[2019-03-15] MEDS: FAMOTIDINE 20MG/2ML IV (PEPCID) IV SCH ×2 (05:04→18:02)
[2019-03-15] MEDS: RT-BUDESONIDE NEBS 0.5 MG/2ML (PULMICORT) AMP INH SCH ×2 (06:24→22:42)
--- NOTE | 2019-03-15 06:28 | NUR ---
THIS RN NOTIFIED E[facility] OF POTASSIUM 3.5, UNABLE TO REPLACE PER PROTOCOL DUE TO URINE OUTPUT OF 30ML/HR AND ELEVATED BUN. NEW ORDER RECEIVED TO GIVE 20MEQ POTASSIUM IV.
[2019-03-15] MEDS: FUROSEMIDE 40 MG/4 ML INJ (LASIX) IVP SCH (07:58)
[2019-03-15] MEDS: VANCOMYCIN 1 GM/NS 250 ML IVPB IV SCH ×4 (07:58→21:07)
[2019-03-15] MEDS: meTOproloL SUCCINATE 50 MG (TOPROL XL) TAB PO SCH (07:59)
[2019-03-15] MEDS: ENOXAPARIN 40 MG/0.4 ML (LOVENOX) SYR SC SCH (07:59)
[2019-03-15] MEDS: ASPIRIN 81 MG CHEW (CHILDREN'S ASA) PO SCH (07:59)
--- NOTE | 2019-03-15 07:59 | Pulmonary Progress Note ---
Subjective Date Seen by a Provider: Mar 14, 2019 (late note\\) Time Seen by a Provider: 07:58 Subjective/Events-last exam Sedated on vent. Sepsis Event Evaluation Height, Weight, BMI Height: 5'6.00" Weight: 204lbs. 5.0oz. 92.763682sn; 33.9 BMI Method:Estimated Exam Exam Vital Signs Date Time Temp Pulse Resp B/P (MAP) Pulse Ox O2 Delivery O2 Flow Rate FiO2 03/15/19 07:00 73 03/15/19 07:00 69 11 131/77 (95) 97 Vapotherm 50.00 26.00 03/15/19 06:26 97 Vapotherm 26.00 50 03/15/19 06:00 70 17 128/85 (99) 97 Vapotherm 50.00 26.00 03/15/19 05:20 Vapotherm 50.00 26.00 03/15/19 05:00 76 17 147/89 (108) 95 NIV Bilevel 50.00 03/15/19 04:00 98.4 03/15/19 04:00 81 19 132/80 (97) 98 NIV Bilevel 50.00 03/15/19 04:00 98 Vapotherm 28.00 55 03/15/19 03:00 88 15 147/89 (108) 98 NIV Bilevel 50.00 03/15/19 02:00 105 24 95 40.00 03/15/19 02:00 94 Vapotherm 26.00 50 03/15/19 02:00 108 19 104/72 (83) 96 NIV Bilevel 50.00 03/15/19 01:00 107 03/15/19 01:00 105 14 142/88 (106) 95 Vapotherm 50.00 28.00 03/15/19 00:07 99.3 03/15/19 00:00 98 Vapotherm 28.00 55 03/15/19 00:00 106 24 129/70 (89) 94 Vapotherm 50.00 28.00 03/14/19 23:00 107 17 102/63 (76) 92 Vapotherm 50.00 28.00 03/14/19 22:00 58 20 117/80 (92) 93 Vapotherm 50.00 28.00 03/14/19 21:24 Vapotherm 50.00 28.00 03/14/19 21:19 96 Vapotherm 28.00 55 03/14/19 21:00 98 25 160/88 (112) 94 Vapotherm 55.00 28.00 03/14/19 20:45 101 20 160/89 (112) 96 Vapotherm 55.00 28.00 03/14/19 20:00 03/14/19 20:00 98 Vapotherm 28.00 55 03/14/19 19:59 98.4 106 23 96 Vapotherm 55.00 28.00 03/14/19 19:37 98 Vapotherm 30.00 60 03/14/19 19:27 98 Vapotherm 30.00 60 03/14/19 19:00 100 03/14/19 19:00 97 17 162/82 (108) 98 Vapotherm 60.00 30.00 03/14/19 18:00 102 23 144/90 (108) 97 Vapotherm 60.00 30.00 03/14/19 17:00 101 27 173/106 (128) 98 Vapotherm 60.00 30.00 03/14/19 16:00 100 9 168/105 (126) 96 Vapotherm 60.00 30.00 03/14/19 16:00 97.9 03/14/19 15:20 Vapotherm 60.00 30.00 03/14/19 15:10 95 Vapotherm 30.00 75 03/14/19 15:00 85 21 137/92 (107) 98 Vapotherm 75.00 30.00 03/14/19 14:25 92 Vapotherm 30.00 75 03/14/19 14:00 89 15 149/95 (113) 98 Vapotherm 75.00 30.00 03/14/19 13:00 95 13 136/91 (106) Vapotherm 75.00 30.00 03/14/19 12:24 96 03/14/19 12:00 89 9 139/88 (105) 99 Vapotherm 75.00 30.00 03/14/19 12:00 97.0 03/14/19 11:19 95 Vapotherm 30.00 75 03/14/19 11:00 55 20 162/85 (110) 91 Vapotherm 75.00 30.00 03/14/19 10:26 96 Vapotherm 30.00 75 03/14/19 10:00 77 15 137/105 (116) 96 Vapotherm 75.00 30.00 03/14/19 09:51 Vapotherm 75.00 30.00 03/14/19 09:00 68 17 143/90 (107) Mechanical Ventilator 50.00 03/14/19 08:00 98.0 03/14/19 08:00 64 16 154/103 (120) 95 Mechanical Ventilator 50.00 03/14/19 08:00 95 Mechanical Ventilator 50 I & O 03/15/19 07:00 Intake Total 1520 ml Output Total 5700 ml Balance -4180 ml Height & Weight Height: 5'6.00" Weight: 204lbs. 5.0oz. 92.307424wa; 33.9 BMI Method:Estimated General Appearance: No Apparent Distress HEENT: PERRL/EOMI, Normal ENT Inspection, Pharynx Normal Neck: Full Range of Motion, Non Tender, Supple Respiratory: No Accessory Muscle Use, No Respiratory Distress, Other Cardiovascular: Regular Rate, Rhythm, No Edema, No Gallop Capillary Refill: Less Than 3 Seconds Gastrointestinal: normal bowel sounds, soft Extremity: Normal Capillary Refill, Normal Inspection, No Pedal Edema Neurologic/Psychiatric: Other (sedated on vent) Skin: Normal Color, Warm/Dry Lymphatic: No Adenopathy Results Lab Laboratory Tests 03/14/19 02:59 03/14/19 20:05 03/15/19 03:07 Assessment/Plan Assessment/Plan Acute respiratory failure - -Continue vent support -- -Proceed with vent weaning today -CTA of chest - reviewed -GIve an extra 40mg of Lasix today -LABS PENDING -recheck BNP MRSA PNA - Sputum was obtained upon intubation. This is not ventilator associated PNA. -MRSA swab is positive and was done upon ICU admission -Continue vanco started 03/11 HX of severe oxygen dependent COPD -Last PFT was 2014 and shows severe emphysema -Prognosis is guarded to poor. -Will consult hospice to help with family education and continue aggressive/supportive measures. Grade 1 diastolic cardiomyopathy per Echo -Lasix 20mg BID COPDAE -Solumedrol - 40 IV Q 6 -SVNs Q 4 UTI -Rocephin -Cultures pending WESLEY ALMAGUER DO Mar 15, 2019 07:59
--- NOTE | 2019-03-15 08:01 | Pulmonary Progress Note ---
Subjective Time Seen by a Provider: 09:12 Subjective/Events-last exam Pt is extubated. Currently requiring Vapotherm. Sepsis Event Evaluation Height, Weight, BMI Height: 5'6.00" Weight: 204lbs. 5.0oz. 92.021322tf; 33.9 BMI Method:Estimated Exam Exam Vital Signs Date Time Temp Pulse Resp B/P (MAP) Pulse Ox O2 Delivery O2 Flow Rate FiO2 03/15/19 07:00 73 03/15/19 07:00 69 11 131/77 (95) 97 Vapotherm 50.00 26.00 03/15/19 06:26 97 Vapotherm 26.00 50 03/15/19 06:00 70 17 128/85 (99) 97 Vapotherm 50.00 26.00 03/15/19 05:20 Vapotherm 50.00 26.00 03/15/19 05:00 76 17 147/89 (108) 95 NIV Bilevel 50.00 03/15/19 04:00 98.4 03/15/19 04:00 81 19 132/80 (97) 98 NIV Bilevel 50.00 03/15/19 04:00 98 Vapotherm 28.00 55 03/15/19 03:00 88 15 147/89 (108) 98 NIV Bilevel 50.00 03/15/19 02:00 105 24 95 40.00 03/15/19 02:00 94 Vapotherm 26.00 50 03/15/19 02:00 108 19 104/72 (83) 96 NIV Bilevel 50.00 03/15/19 01:00 107 03/15/19 01:00 105 14 142/88 (106) 95 Vapotherm 50.00 28.00 03/15/19 00:07 99.3 03/15/19 00:00 98 Vapotherm 28.00 55 03/15/19 00:00 106 24 129/70 (89) 94 Vapotherm 50.00 28.00 03/14/19 23:00 107 17 102/63 (76) 92 Vapotherm 50.00 28.00 03/14/19 22:00 58 20 117/80 (92) 93 Vapotherm 50.00 28.00 03/14/19 21:24 Vapotherm 50.00 28.00 03/14/19 21:19 96 Vapotherm 28.00 55 03/14/19 21:00 98 25 160/88 (112) 94 Vapotherm 55.00 28.00 03/14/19 20:45 101 20 160/89 (112) 96 Vapotherm 55.00 28.00 03/14/19 20:00 03/14/19 20:00 98 Vapotherm 28.00 55 03/14/19 19:59 98.4 106 23 96 Vapotherm 55.00 28.00 03/14/19 19:37 98 Vapotherm 30.00 60 03/14/19 19:27 98 Vapotherm 30.00 60 03/14/19 19:00 100 03/14/19 19:00 97 17 162/82 (108) 98 Vapotherm 60.00 30.00 03/14/19 18:00 102 23 144/90 (108) 97 Vapotherm 60.00 30.00 03/14/19 17:00 101 27 173/106 (128) 98 Vapotherm 60.00 30.00 03/14/19 16:00 100 9 168/105 (126) 96 Vapotherm 60.00 30.00 03/14/19 16:00 97.9 03/14/19 15:20 Vapotherm 60.00 30.00 03/14/19 15:10 95 Vapotherm 30.00 75 03/14/19 15:00 85 21 137/92 (107) 98 Vapotherm 75.00 30.00 03/14/19 14:25 92 Vapotherm 30.00 75 03/14/19 14:00 89 15 149/95 (113) 98 Vapotherm 75.00 30.00 03/14/19 13:00 95 13 136/91 (106) Vapotherm 75.00 30.00 03/14/19 12:24 96 03/14/19 12:00 89 9 139/88 (105) 99 Vapotherm 75.00 30.00 03/14/19 12:00 97.0 03/14/19 11:19 95 Vapotherm 30.00 75 03/14/19 11:00 55 20 162/85 (110) 91 Vapotherm 75.00 30.00 03/14/19 10:26 96 Vapotherm 30.00 75 03/14/19 10:00 77 15 137/105 (116) 96 Vapotherm 75.00 30.00 03/14/19 09:51 Vapotherm 75.00 30.00 03/14/19 09:00 68 17 143/90 (107) Mechanical Ventilator 50.00 03/14/19 08:00 98.0 03/14/19 08:00 64 16 154/103 (120) 95 Mechanical Ventilator 50.00 03/14/19 08:00 95 Mechanical Ventilator 50 I & O 03/15/19 07:00 Intake Total 1520 ml Output Total 5700 ml Balance -4180 ml Height & Weight Height: 5'6.00" Weight: 204lbs. 5.0oz. 92.219235me; 33.9 BMI Method:Estimated General Appearance: Anxious, Mild Distress HEENT: PERRL/EOMI, Normal ENT Inspection, Pharynx Normal Neck: Full Range of Motion, Non Tender, Supple Respiratory: No Accessory Muscle Use, No Respiratory Distress, Other Cardiovascular: Regular Rate, Rhythm, No Edema, No Gallop Capillary Refill: Less Than 3 Seconds Gastrointestinal: normal bowel sounds, soft Extremity: Normal Capillary Refill, Normal Inspection, No Pedal Edema Neurologic/Psychiatric: Other (sedated on vent) Skin: Normal Color, Warm/Dry Lymphatic: No Adenopathy Results Lab Laboratory Tests 03/14/19 02:59 03/14/19 20:05 03/15/19 03:07 Assessment/Plan Assessment/Plan Acute respiratory failure - -Extubated yesterday Continue Vapotherm. Attempt to wean to NC. -LABS PENDING -recheck BNP MRSA PNA - Sputum was obtained upon intubation. This is not ventilator associated PNA. -MRSA swab is positive and was done upon ICU admission -Continue vanco started 03/11 HX of severe oxygen dependent COPD -Last PFT was 2014 and shows severe emphysema -Prognosis is guarded to poor. Grade 1 diastolic cardiomyopathy per Echo -Lasix COPDAE -Solumedrol - 40 IV Q 6 -SVNs Q 4 UTI -Rocephin -Cultures pending WESLEY ALMAGUER DO Mar 15, 2019 08:01
--- NOTE | 2019-03-15 09:23 | Diagnostic Imaging Report ---
INDICATION: Acute chronic respiratory failure. TECHNIQUE: Single view chest at 3:55 AM. CORRELATION STUDY: 03/14/2019 FINDINGS: The endotracheal tube and gastric tube have been removed. Heart size and mediastinum are generally stable given the difference in technique and positioning. Lung henderson demonstrate what appears to be a somewhat hyperinflated and chronic appearance. Superimposed areas of atelectasis or infiltrate suggested about the lung bases but overall are improved. IMPRESSION: 1. Interval extubation. 2. Scattered bibasilar infiltrates do persist but overall appear somewhat improved. Dictated by: Dictated on workstation # [id number]
--- NOTE | 2019-03-15 15:27 | Progress Note - Hospitalist ---
Subjective HPI/CC On Admission Date Seen by Provider: Mar 15, 2019 Time Seen by Provider: 08:30 Subjective/Events-last exam Patient extubated yesterday doing well on nasal cannula oxygen this morning. She denies shortness of breath loose cough minimally productive no chest pain no shortness of breath at rest. Objective Exam Vital Signs Vital Signs Date Time Temp Pulse Resp B/P (MAP) Pulse Ox O2 Delivery O2 Flow Rate FiO2 03/15/19 15:11 Vapotherm 30.00 50 03/15/19 15:00 92 34 161/79 (106) 91 03/15/19 11:20 98.2 Capillary Refill : Less Than 3 Seconds General Appearance: No Apparent Distress, Obese Respiratory: No Accessory Muscle Use, No Respiratory Distress, Other (Unchanged from yesterday chest clear anteriorly with significant diminished breath sounds posteriorly no wheezing appreciated.) Cardiovascular: Regular Rate, Rhythm, No Edema, No Gallop, No JVD, No Murmur Extremity: Non Tender, No Pedal Edema Results/Procedures Lab Laboratory Tests 03/14/19 20:05 03/15/19 03:07 Patient resulted labs reviewed. Assessment/Plan Assessment and Plan Assess & Plan/Chief Complaint Acute respiratory failure - Doing well/resolved patient extubated consider initiating physical therapy tomorrow. -CTA of chest - reviewed -GIve an extra 40mg of Lasix today -LABS PENDING -recheck BNP MRSA PNA - Sputum was obtained upon intubation. This is not ventilator associated PNA. -MRSA swab is positive and was done upon ICU admission -Continue vanco started 03/11 HX of severe oxygen dependent COPD -Last PFT was 2014 and shows severe emphysema -Prognosis is guarded to poor. -Will consult hospice to help with family education and continue aggressive/supportive measures. Grade 1 diastolic cardiomyopathy per Echo -Lasix 20mg BID COPDAE -Solumedrol - 40 IV Q 6 -SVNs Q 4 Clinical Quality Measures DVT/VTE Risk/Contraindication: Risk Factor Score Per Nursin RFS Level Per Nursing on Admit: 4+=Very High SUSAN DUPONT MD Mar 15, 2019 15:27
--- NOTE | 2019-03-15 16:08 | NUR ---
pt sitting up in bed talking to family. o2 sats consistently 88-89% on vapotherm 30l 50%. increased settings to 40L 50%.o2 sats now 90-93%.
--- NOTE | 2019-03-15 17:06 | Progress Note - Cardiology ---
Cardiology SOAP Progress Note Subjective: No cp or palp or syncope Shortness of breath with mild activity Gen malaise Objective: I&O/Vital Signs 03/15/19 03/15/19 03/15/19 03/15/19 05:20 06:00 06:26 07:00 Pulse 70 69 Resp 17 11 B/P (MAP) 128/85 (99) 131/77 (95) Pulse Ox 97 97 97 O2 Delivery Vapotherm Vapotherm Vapotherm Vapotherm O2 Flow Rate 50.00 50.00 26.00 50.00 26.00 26.00 26.00 FiO2 50 03/15/19 03/15/19 03/15/19 03/15/19 07:00 08:00 08:12 08:39 Temp 98.5 Pulse 73 79 Resp 16 B/P (MAP) 148/81 (103) Pulse Ox 95 O2 Delivery Vapotherm Vapotherm O2 Flow Rate 26.00 40.00 26.00 FiO2 40 03/15/19 03/15/19 03/15/19 03/15/19 09:00 10:00 10:13 11:00 Pulse 80 82 87 Resp 18 14 14 B/P (MAP) 132/72 (92) 148/79 (102) 151/76 (101) Pulse Ox 94 86 94 86 O2 Delivery Vapotherm Vapotherm Vapotherm Vapotherm O2 Flow Rate 40.00 40.00 26.00 40.00 26.00 26.00 26.00 FiO2 40 03/15/19 03/15/19 03/15/19 03/15/19 11:20 11:51 12:00 13:00 Temp 98.2 Pulse 85 85 Resp 27 B/P (MAP) 130/79 (96) Pulse Ox 95 O2 Delivery Vapotherm Vapotherm O2 Flow Rate 26.00 40.00 26.00 FiO2 40 03/15/19 03/15/19 03/15/19 03/15/19 13:00 13:40 13:48 14:00 Pulse 87 83 Resp 30 26 B/P (MAP) 155/83 (107) 161/79 (106) Pulse Ox 89 90 91 O2 Delivery Vapotherm Vapotherm Vapotherm O2 Flow Rate 40.00 50.00 30.00 50.00 26.00 30.00 30.00 FiO2 50 803/15/19 03/15/19 03/15/19 15:00 15:11 15:35 15:58 Temp 98.6 Pulse 92 Resp 34 B/P (MAP) 161/79 (106) Pulse Ox 91 O2 Delivery Vapotherm Vapotherm Vapotherm O2 Flow Rate 50.00 30.00 55.00 30.00 40.00 FiO2 50 03/15/19 16:00 Pulse 85 Resp 15 B/P (MAP) 155/86 (109) Pulse Ox 93 O2 Delivery Vapotherm O2 Flow Rate 55.00 40.00 03/15/19 00:00 Intake Total 910 ml Output Total 1230 ml Balance -320 ml Weight (Pounds): 204 Weight (Ounces): 5.0 Weight (Calculated Kilograms): 92.932350 Constitutional: appears stated age, AAO x 3, well-developed, well-nourished Respiratory: other (fair to good bilat air entry, diminished at the bases) Cardiovascular: regular rate-rhythm, S1 and S2, systolic murmur (soft CHANEL at card base) Gastrointestional: No tender; soft; No guarding, No rebound; audible bowel sounds Extremities: other (mild, bilat leg edema); No clubbing, No cyanosis Neurologic/Psychiatric: oriented x 3, other (moves all limbs equally) Skin: No rash, No ulcerations Results/Procedures: Labs Laboratory Tests 03/14/19 17:50: Glucometer 166H 03/14/19 20:05: Sodium Level 144, Potassium Level 3.6, Chloride Level 96L, Carbon Dioxide Level 34H, Anion Gap 14, Blood Urea Nitrogen 28H, Creatinine 0.84, Estimat Glomerular Filtration Rate > 60, BUN/Creatinine Ratio 33, Glucose Level 187H, Calcium Level 10.4H, Phosphorus Level 4.0, Magnesium Level 1.8 03/15/19 00:08: Glucometer 183H 03/15/19 03:07: Sodium Level 144, Potassium Level 3.5L, Chloride Level 98, Carbon Dioxide Level 35H, Anion Gap 11, Blood Urea Nitrogen 31H, Creatinine 0.85, Estimat Glomerular Filtration Rate > 60, BUN/Creatinine Ratio 36, Glucose Level 185H, Calcium Level 10.1, Phosphorus Level 3.1, Magnesium Level 1.9, White Blood Count 13.5H, Red Blood Count 5.72, Hemoglobin 15.2, Hematocrit 51, Mean Corpuscular Volume 90, Mean Corpuscular Hemoglobin 27, Mean Corpuscular Hemoglobin Concent 30L, Red Cell Distribution Width 16.4H, Platelet Count 227, Mean Platelet Volume 10.3, Neutrophils (%) (Auto) 89H, Lymphocytes (%) (Auto) 4L, Monocytes (%) (Auto) 7, Eosinophils (%) (Auto) 0, Basophils (%) (Auto) 0, Neutrophils # (Auto) 12.1H, Lymphocytes # (Auto) 0.5L, Monocytes # (Auto) 0.9, Eosinophils # (Auto) 0.0, Basophils # (Auto) 0.0, Triglycerides Level 304H 03/15/19 03:40: Blood Gas Puncture Site LEFT RADIAL, Blood Gas Patient Temperature 98.3, Arterial Blood pH 7.41, Arterial Blood Partial Pressure CO2 63H, Arterial Blood Partial Pressure O2 68L, Arterial Blood HCO3 39H, Arterial Blood Total CO2 41.1H , Arterial Blood Oxygen Saturation 93L, Arterial Blood Base Excess 13.8H, Da Test YES-POS, Blood Gas Ventilator Setting NO, Blood Gas Inspired Oxygen 40% 03/15/19 11:16: Glucometer 193H Microbiology 03/09/19 Blood Culture - Final, Complete No growth 03/09/19 MRSA Screen - Final, Complete 03/09/19 Urine Culture - Final, Complete 3 or more isolates Laboratory Tests 03/14/19 02:59 03/14/19 20:05 03/15/19 03:07 A/P: Assessment: Acute Type 2 Resp Failure due to ac exac of COPD, obesity-hypoventilation, and ac diastolic CHF Echo 03/09/2019: LVEF 55-65%, grade 1 diastolic dysfunction, PASP 62 mmHg Mild CAD and elevated LVEDP on card cath of 03/11/2019 DM II Smoker of cigarettes Hyperlipidemia, by history Plan: * Replenish lytes * Placed on low dose ASA because of mild CAD * Placed on beta-pasquale because of hypertension * Monitor labs JENNIE ROGERS MD FACP [facility] CCDS Mar 15, 2019 17:06
[2019-03-15] MEDS: NS IV 1000 ML 1,000 ML IV SCH (18:08)
[2019-03-15 20:07] LABS: BUN/CREATININE RATIO 32; CALCIUM 9.9 MG/DL (8.5-10.1); CARBON DIOXIDE 34 MMOL/L (21-32); CHLORIDE 96 MMOL/L (98-107); GFR ESTIMATED > 60; GLUCOSE 238 MG/DL (70-105); MAGNESIUM 1.7 MG/DL (1.6-2.4); PHOSPHORUS 3.3 MG/DL (2.3-4.7); POTASSIUM 3.7 MMOL/L (3.6-5.0); SODIUM 141 MMOL/L (135-145)
--- NOTE | 2019-03-15 20:28 | NUR ---
1902-THIS RN NOTIFIED DR. ALMAGUER OF DECREASED URINE OUTPUT NEW ORDERS TO REPEAT LABS BNP, BMP, MAG AND PHOS. 2025- THIS RN NOTIFIED DR. ALMAGUER OF LAB RESULTS. NO NEW ORDERS AT THIS TIME.
[2019-03-15] MEDS ORDERED: RT-ALBUTEROL SULF 2.5 MG/3 ML PRE-MIX VIAL INH PRN (22:30)
[2019-03-16] VITALS (19 sets, daily range): BP systolic 109–208; BP diastolic 65–103
[2019-03-16] MEDS: inSUlin ASPART (NovoLOG) 1 UNIT/0.01 ML (CHARGE PER UNIT) SQ SCH ×4 (00:50→18:26)
[2019-03-16] MEDS: methylPREDNISolone 40 MG/ML (Solu-MEDROL) VIAL IV SCH ×5 (01:29→23:53)
--- NOTE | 2019-03-16 01:56 | NUR ---
THIS RN NOTIFIED E[facility] OF DECREASED URINE OUTPUT<30ML LAST TWO HOURS. TOTAL URINE OUTPUT FOR SHIFT 185ML. NO NEW ORDERS AT THIS TIME.
[2019-03-16] MEDS: RT-ALBUTEROL/IPRATROPIUM 3 ML (DUONEB) VIAL INH SCH ×2 (02:30→06:34)
[2019-03-16 03:50] LABS: BASOPHILS % (AUTO) 0 % (0-10); EOSINOPHILS % (AUTO) 0 % (0-10); HEMATOCRIT 49 % (35-52); HEMOGLOBIN 14.5 G/DL (11.5-16.0); LYMPHOCYTES # (AUTO) 0.6 X 10^3 (1.0-4.0); LYMPHOCYTES % (AUTO) 9 % (12-44); MEAN CORPUSCULAR HEMOGLOBIN 27 PG (25-34); MEAN CORPUSCULAR HGB CONC 30 G/DL (32-36); MEAN CORPUSCULAR VOLUME 91 FL (80-99); MEAN PLATELET VOLUME 10.6 FL (7.4-10.4); MONOCYTES # (AUTO) 0.5 X 10^3 (0.0-1.0); MONOCYTES % (AUTO) 7 % (0-12); NEUTROPHILS # (AUTO) 5.5 X 10^3 (1.8-7.8); NEUTROPHILS % (AUTO) 84 % (42-75); PLATELET COUNT 181 10^3/uL (130-400); RED CELL DISTRIBUTION WIDTH 15.8 % (10.0-14.5); WHITE BLOOD COUNT 6.6 10^3/uL (4.3-11.0)
[2019-03-16 03:58] LABS: ABG BASE EXCESS 14.8 MMOL/L (-2.5-2.5); ABG OXYGEN SATURATION 94 % (94-100); ABG PCO2 64 MMHG (35-45); ABG PH 7.41 (7.37-7.43); ABG PO2 72 MMHG (79-93); ABG TCO2 42.2 MMOL/L (21.0-31.0); ALLENS TEST YES-POS; INSPIRED O2 50%; PATIENT TEMP 98.6; VENTILATOR NO
[2019-03-16 04:16] LABS: BUN/CREATININE RATIO 35; CALCIUM 9.9 MG/DL (8.5-10.1); CARBON DIOXIDE 35 MMOL/L (21-32); CHLORIDE 96 MMOL/L (98-107); CREATININE SERUM 0.84 MG/DL (0.60-1.30); GFR ESTIMATED > 60; GLUCOSE 227 MG/DL (70-105); PHOSPHORUS 3.6 MG/DL (2.3-4.7); POTASSIUM 3.5 MMOL/L (3.6-5.0); SODIUM 143 MMOL/L (135-145)
--- NOTE | 2019-03-16 05:21 | Pulmonary Progress Note ---
Subjective Time Seen by a Provider: 05:21 Subjective/Events-last exam Pt is currently on BiPAP. Sepsis Event Evaluation Height, Weight, BMI Height: 5'6.00" Weight: 204lbs. 5.0oz. 92.060228ty; 33.9 BMI Method:Estimated Exam Exam Vital Signs Date Time Temp Pulse Resp B/P (MAP) Pulse Ox O2 Delivery O2 Flow Rate FiO2 03/16/19 05:00 28 118/71 (87) 91 NIV Bilevel 50.00 03/16/19 04:00 98.6 03/16/19 04:00 25 134/74 (94) 92 NIV Bilevel 50.00 03/16/19 04:00 Vapotherm 40.00 55 03/16/19 03:00 142/80 (100) NIV Bilevel 50.00 03/16/19 02:30 75 16 92 50.00 03/16/19 02:00 136/84 (101) NIV Bilevel 50.00 03/16/19 01:00 79 03/16/19 01:00 134/69 (90) NIV Bilevel 50.00 03/16/19 00:45 84 31 92 50.00 03/16/19 00:43 NIV Bilevel 50.00 03/16/19 00:00 80 116/65 (82) 91 Vapotherm 55.00 40.00 03/16/19 00:00 Vapotherm 40.00 55 03/16/19 00:00 98.5 03/15/19 23:00 79 117/75 (89) 92 Vapotherm 55.00 40.00 03/15/19 22:42 93 Vapotherm 40.00 55 03/15/19 22:17 84 92 03/15/19 22:00 158/82 (107) Vapotherm 55.00 40.00 03/15/19 21:00 25 126/102 (110) 93 Vapotherm 55.00 40.00 03/15/19 20:00 Vapotherm 40.00 55 03/15/19 20:00 74 24 161/91 (114) 93 Vapotherm 55.00 40.00 03/15/19 19:23 92 Vapotherm 40.00 55 03/15/19 19:00 78 03/15/19 19:00 98.3 8/25/19 19:00 15 169/96 (120) 95 Vapotherm 55.00 40.00 03/15/19 18:00 84 28 149/86 (107) 94 Vapotherm 55.00 40.00 03/15/19 17:00 87 29 129/96 (107) 92 Vapotherm 55.00 40.00 03/15/19 16:00 85 15 155/86 (109) 93 Vapotherm 55.00 40.00 03/15/19 15:58 Vapotherm 55.00 40.00 03/15/19 15:35 98.6 03/15/19 15:11 Vapotherm 30.00 50 03/15/19 15:00 92 34 161/79 (106) 91 Vapotherm 50.00 30.00 03/15/19 14:00 83 26 161/79 (106) 91 Vapotherm 50.00 30.00 03/15/19 13:48 90 Vapotherm 30.00 50 03/15/19 13:40 50.00 30.00 03/15/19 13:00 87 30 155/83 (107) 89 Vapotherm 40.00 26.00 03/15/19 13:00 85 03/15/19 12:00 85 27 130/79 (96) 95 Vapotherm 40.00 26.00 03/15/19 11:51 Vapotherm 26.00 40 03/15/19 11:20 98.2 03/15/19 11:00 87 14 151/76 (101) 86 Vapotherm 40.00 26.00 03/15/19 10:13 94 Vapotherm 26.00 40 03/15/19 10:00 82 14 148/79 (102) 86 Vapotherm 40.00 26.00 03/15/19 09:00 80 18 132/72 (92) 94 Vapotherm 40.00 26.00 03/15/19 08:39 98.5 03/15/19 08:12 79 16 148/81 (103) 95 Vapotherm 40.00 26.00 03/15/19 08:00 Vapotherm 26.00 40 03/15/19 07:00 73 03/15/19 07:00 69 11 131/77 (95) 97 Vapotherm 50.00 26.00 03/15/19 06:26 97 Vapotherm 26.00 50 03/15/19 06:00 70 17 128/85 (99) 97 Vapotherm 50.00 26.00 03/15/19 05:20 Vapotherm 50.00 26.00 I & O 03/16/19 07:00 Intake Total 1840 ml Output Total 1725 ml Balance 115 ml Height & Weight Height: 5'6.00" Weight: 204lbs. 5.0oz. 92.058924oq; 33.9 BMI Method:Estimated General Appearance: Anxious, Mild Distress, Obese HEENT: PERRL/EOMI, Normal ENT Inspection, Pharynx Normal Neck: Full Range of Motion, Non Tender, Supple Respiratory: No Accessory Muscle Use, No Respiratory Distress, Other (Unchanged from yesterday chest clear anteriorly with significant diminished breath sounds posteriorly no wheezing appreciated.) Cardiovascular: Regular Rate, Rhythm, No Edema, No Gallop, No JVD, No Murmur Capillary Refill: Less Than 3 Seconds Gastrointestinal: normal bowel sounds, soft Extremity: Non Tender, No Pedal Edema Neurologic/Psychiatric: Other (sedated on vent) Skin: Normal Color, Warm/Dry Lymphatic: No Adenopathy Results Lab Laboratory Tests 03/14/19 20:05 03/15/19 03:07 03/15/19 19:41 03/16/19 02:55 Assessment/Plan Assessment/Plan Acute respiratory failure - -Currently on BiPAP. Will trial on NC. MRSA PNA - Sputum was obtained upon intubation. This is not ventilator associated PNA. -MRSA swab is positive and was done upon ICU admission -Continue vanco started 03/11 Atelectasis -IS -INcrease activity -Change SVN to easy PAP Decreased UO -increase IVF to 50cc/hr -Monitor HX of severe oxygen dependent COPD -Last PFT was 2014 and shows severe emphysema -Prognosis is guarded to poor. Grade 1 diastolic cardiomyopathy per Echo -Monitor COPDAE -Solumedrol - 40 IV Q 6 -SVNs Q 4 UTI -Rocephin -Cultures pending WESLEY ALMAGUER DO Mar 16, 2019 05:21
[2019-03-16] MEDS: POTASSIUM CL 10MEQ/50ML IVPB 50 ML IV SCH ×6 (06:17→10:37)
[2019-03-16] MEDS: FAMOTIDINE 20MG/2ML IV (PEPCID) IV SCH (06:18)
[2019-03-16] MEDS: KCL 20 MEQ TAB (K-DUR) PO SCH (06:18)
[2019-03-16] MEDS: MAGNESIUM 1 GM/100 ML IVPB 100 ML IV SCH (06:18)
[2019-03-16] MEDS: RT-BUDESONIDE NEBS 0.5 MG/2ML (PULMICORT) AMP INH SCH ×2 (06:34→22:17)
[2019-03-16] MEDS: FUROSEMIDE 40 MG/4 ML INJ (LASIX) IVP SCH (07:36)
--- NOTE | 2019-03-16 07:50 | Diagnostic Imaging Report ---
INDICATION: Acute on chronic respiratory failure, pneumonia. TECHNIQUE: Single view chest at 2:31 AM. CORRELATION STUDY: 03/15/2019 FINDINGS: Heart size and vasculature within normal limits. Slight density in the right superior paramediastinal region, likely stable given difference in technique. There does appear to be slightly more focal increasing consolidation about the right lung base medially. IMPRESSION: 1. Suggestion of slight increasing infiltrate-like density at the right lung base medially compared to prior study. Followup imaging would be recommended. Dictated by: Dictated on workstation # [id number]
[2019-03-16] MEDS: ENOXAPARIN 40 MG/0.4 ML (LOVENOX) SYR SC SCH (08:04)
[2019-03-16] MEDS: meTOproloL SUCCINATE 50 MG (TOPROL XL) TAB PO SCH (08:04)
[2019-03-16] MEDS: ASPIRIN 81 MG CHEW (CHILDREN'S ASA) PO SCH (08:04)
[2019-03-16] MEDS: VANCOMYCIN 1 GM/NS 250 ML IVPB IV SCH ×2 (10:36)
--- NOTE | 2019-03-16 10:36 | NUR ---
PALLIATIVE CARE RN in to see patient. She is now extubated and on HFNC of 8 L, and doing well with this. He daughter, Radha, is in the room and we discussed smoking cessation and then a strong discussion on not picking up the vaping which she mentioned several times in just a few minutes. She appears to be anxious and this is evidenced by excessive talking and fidgeting in chair and she is having trouble staying on topic. We briefly discussed hospice which she does not feel she is ready for at this time. I left my name for further discussion if they are interested. Daughter did ask me about getting a SKIL worker for assist at home which I will speak to the SW about.
--- NOTE | 2019-03-16 10:40 | Progress Note - Hospitalist ---
Subjective HPI/CC On Admission Date Seen by Provider: Mar 16, 2019 Time Seen by Provider: 08:45 Subjective/Events-last exam Pt doing much better Off vent and does not need BiPAP anymore Weened down to nasal canula Will order PT and OT and pt may be a rehab candidate Overall denies any pain Much improved status Review of Systems General: Fatigue Pulmonary: Dyspnea Objective Exam Vital Signs Vital Signs Date Time Temp Pulse Resp B/P (MAP) Pulse Ox O2 Delivery O2 Flow Rate FiO2 03/16/19 19:07 97.0 78 20 195/94 (127) 92 High Flow N/C 6.00 03/16/19 04:00 55 Capillary Refill : Less Than 3 Seconds General Appearance: No Apparent Distress, WD/WN, Chronically ill Respiratory: Chest Non Tender, No Accessory Muscle Use, No Respiratory Dis tress, Crackles, Decreased Breath Sounds Cardiovascular: Regular Rate, Rhythm, No Edema, No Gallop, No JVD, No Murmur, Normal Peripheral Pulses Neurologic/Psychiatric: Alert, Oriented x3, No Motor/Sensory Deficits, Normal Mood/Affect Results/Procedures Lab Laboratory Tests 03/16/19 02:55 Patient resulted labs reviewed. Assessment/Plan Assessment and Plan Assess & Plan/Chief Complaint Assessment: s/p VDRF MRSA Pneumonia Vanc 03/11/19 Smoker COPD severe at baseline maintained on O2 dependency Debility Grade 1 diastolic cardiomyopathy AECOPD UTI Plan: Tx to 4th PT/OT Nebs O2 Abx Diagnosis/Problems Diagnosis/Problems (1) Acute and chronic respiratory failure with hypoxia Status: Acute (2) Respiratory failure Status: Acute Qualifiers: Chronicity: acute on chronic Respiratory failure complication: unspecified whether with hypoxia or hypercapnia Qualified Codes: J96.20 - Acute and chronic respiratory failure, unspecified whether with hypoxia or hypercapnia (3) Oxygen dependent Status: Chronic (4) JORGE L treated with BiPAP Status: Chronic (5) Depression Status: Chronic Qualifiers: Depression Type: unspecified Qualified Codes: F32.9 - Major depressive disorder, single episode, unspecified (6) CHF (congestive heart failure) Status: Chronic Qualifiers: Heart failure type: diastolic Heart failure chronicity: acute on chronic Qualified Codes: I50.33 - Acute on chronic diastolic (congestive) heart failure (7) UTI (urinary tract infection) Status: Acute Qualifiers: Urinary tract infection type: acute cystitis Hematuria presence: without hematuria Qualified Codes: N30.00 - Acute cystitis without hematuria (8) Sepsis Status: Acute Qualifiers: Sepsis type: sepsis due to unspecified organism (9) Pneumonia Status: Acute Qualifiers: Laterality: unspecified laterality Lung location: unspecified part of lung (10) Elevated troponin Status: Acute (11) CO2 narcosis Status: Acute (12) Heavy cigarette smoker Status: Acute (13) Hypothyroidism Status: Chronic Qualifiers: Hypothyroidism type: acquired Qualified Codes: E03.9 - Hypothyroidism, unspecified (14) Non-insulin treated type 2 diabetes mellitus Status: Chronic (15) Hypercalcemia Status: Acute (16) HTN (hypertension) Status: Chronic Qualifiers: Hypertension type: essential hypertension Qualified Codes: I10 - Essential (primary) hypertension (17) COPD exacerbation Status: Acute Clinical Quality Measures DVT/VTE Risk/Contraindication: Risk Factor Score Per Nursin RFS Level Per Nursing on Admit: 4+=Very High CLAIRE BAZZI DO Mar 16, 2019 10:40
--- NOTE | 2019-03-16 10:48 | Physical Therapy Evaluation ---
PT Evaluation-General Medical Diagnosis Admission Date Mar 09, 2019 at 00:40 Medical Diagnosis: respiratory failure Onset Date: Mar 09, 2019 Therapy Diagnosis Therapy Diagnosis: debility/weakness Height/Weight Height (Feet): 5 Height (Inches): 6.00 Weight (Pounds): 213 Weight (Ounces): 1.0 Precautions Precautions/Isolations: Droplet Isolation, Fall Prevention, Standard Precautions, Pressure Ulcer Referral Physician: Shira Reason for Referral: Evaluation/Treatment Medical History Pertinent Medical History: COPD, DM, Heart Failure, HTN, Hypothroidism, Smoking Current History EMS from home secondary to SOA/per patient daughter, patient is noncompliant with medical advice Reviewed History: Yes Social History Home: Single Level Current Living Status: Alone Prior/Core FIM Prior Level of Function Therapy Code Descriptions/Definitions Functional [place] Measure: 0=Not Assessed/NA 4=Minimal Assistance 1=Total Assistance 5=Supervision or Setup 2=Maximal Assistance 6=Modified [place] 3=Moderate Assistance 7=Complete [place] Therapy Quality Codes: 6 Independent with activity with or without an assistive device 5 Patient requires set up or clean up by helper. Patient completes activity by themselves 4 Supervision or touching assist (CGA). Austin provide cues , steadying assist 3 The helper provides less than half the effort to complete the activity 2 The helper provides more than half the effort to complete the activity 1 Dependent. The helper does all the effort to complete an activity 7 Patient refused to complete or attempt activity 9 The patient did not perform the activity before the current illness or injury 88 Not attempted due to Medical conditions or safety concerns Functional Abilities and Goals: Independent: Patient completed the activities by him/herself, with or without an assistive device, with no assistance from a helper. Needed Some Help: Patient needed partial assistance from another person to complete activities. Dependent: A helper completed the activities for the patient. Unknown: Not Applicable: Bed Mobility: 7 Transfers (B,C,W/C) (FIM): 7 Gait: 7 Stairs: 7 Indoor Mobility (Ambulation): Independent Stairs: Independent Prior Devices Use: None PT Evaluation-Current Subjective Patient agrees to PT. Pain Numeric Pain Scale: 0-No Pain Location: No Pain Reported Objective Patient Orientation: Normal For Age Problem Solving: Fair Attachments: Oxygen, Enriquez Catheter, IV ROM/Strength ROM Lower Extremities bilateral LE WFL Strength Lower Extremities 3+/5 grossly bilateral LE Integumentary/Posture Integumentary refer to nursing notes Bladder Incontinence: Enriquez Cath Posture WFL Neuromuscular (Tone, Coordination, Reflexes) slightly diminished due to inactivity x 1 week Transfers Therapy Code Descriptions/Definitions Functional [place] Measure: 0=Not Assessed/NA 4=Minimal Assistance 1=Total Assistance 5=Supervision or Setup 2=Maximal Assistance 6=Modified [place] 3=Moderate Assistance 7=Complete [place] Transfers (B, C, W/C) (FIM): 4 Scootin Rollin Supine to/from Sit: 6 Sit to/from Stand: 4 bed t/f WC(FIM only if WC use): 4 Gait Mode of Locomotion: Walk Anticipated Mode of Locomotion: Walk Gait (FIM): 1 Distance (FIM): 1=up to 49 ft Distance: 5 steps Gait Level of Assist: 4 Gait Persons Needed: 1 Gait Assistive Device: FWW Comments/Gait Description slightly unsteady due to weakness Balance Sitting Static: Normal Sitting Dynamic: Normal Standing Static: Fair Standing Dynamic: Fair Assessment/Needs 53 y.o. female, will be seen short term by skilled PT to address functional strength and mobility to improve current LOF to safely return to home at maximum PLOF. Rehab Potential: Fair Post Rehab Potential-Barriers: compliance PT Transport Aide Goals Transport Aide Goals PT Transport Aide Goals Time Frame: Mar 28, 2019 Transfers (B,C,W/C) (FIM): 7 Gait (FIM): 7 Gait distance (FIM): 3=150 ft Distance: 150' Gait Level of Assist: 7 Gait Assistive Device: None Stairs (FIM): 6 # of Steps: 12 Stairs Level Of Assist: 6 PT Plan Problem List Problem List: Activity Tolerance, Safety, Balance, Gait, Transfer Treatment/Plan Treatment Plan: Continue Plan of Care Treatment Plan: Bed Mobility, Education, Functional Activity Jose, Functional Strength, Gait, Safety, Therapeutic Exercise, Transfers Treatment Duration: Mar 28, 2019 Frequency: 6 times per week Estimated Hrs Per Day: .25 hour per day Patient and/or Family Agrees t: Yes Discharge Recommendations Therapy D/C Recommendations: Home w/ Family Support, Physical Therapy Home Care Time/GCodes Time In: 1007 Time Out: 1023 Total Billed Treatment Time: 16 Total Billed Treatment 1 visit EVMod 16 min KARY CANALES PT Mar 16, 2019 10:48
--- NOTE | 2019-03-16 10:58 | Occupational Therapy Eval ---
OT Evaluation-General/PLF Medical Diagnosis Admission Date Mar 09, 2019 at 00:40 Medical Diagnosis: respiratory failure Onset Date: Mar 09, 2019 Therapy Diagnosis Therapy Diagnosis: impaired ADLs and mobility Height/Weight Height (Feet): 5 Height (Inches): 6.00 Weight (Pounds): 213 Weight (Ounces): 1.0 Precautions Precautions/Isolations: Droplet Isolation, Fall Prevention, Standard Precautions, Pressure Ulcer Safety Interventions: None, Reorient-PRN Weight Bear Status Weight Bearing Restriction: Weight Bearing/Tolerated Referral Physician: Shira Referral Reason: Activity Tolerance, Self Care, Evaluation/Treatment, Strengthening/ROM Medical History Pertinent Medical History: COPD, DM, Heart Failure, HTN, Hypothroidism, Smoking Additional Medical History per h&P: "53 yo female brought to ER by EMS called by her daughter with worsening shortness of breath and confusion, found to be in severe respiratory failure with history of COPD. Required intubation." pt was extubated 03/15/19 Reviewed History: Yes Social History Home: Single Level Current Living Status: Other Family (uncle) Entry Into Home: Level Entry ADL-Prior Level of Function Therapy Code Descriptions/Definitions Functional [place] Measure: 0=Not Assessed/NA 4=Minimal Assistance 1=Total Assistance 5=Supervision or Setup 2=Maximal Assistance 6=Modified [place] 3=Moderate Assistance 7=Complete [place] Therapy Quality Codes: 6 Independent with activity with or without an assistive device 5 Patient requires set up or clean up by helper. Patient completes activity by themselves 4 Supervision or touching assist (CGA). Draper provide cues , steadying assist 3 The helper provides less than half the effort to complete the activity 2 The helper provides more than half the effort to complete the activity 1 Dependent. The helper does all the effort to complete an activity 7 Patient refused to complete or attempt activity 9 The patient did not perform the activity before the current illness or injury 88 Not attempted due to Medical conditions or safety concerns Functional Abilities and Goals: Independent: Patient completed the activities by him/herself, with or without an assistive device, with no assistance from a helper. Needed Some Help: Patient needed partial assistance from another person to complete activities. Dependent: A helper completed the activities for the patient. Unknown: Not Applicable: ADL PLOF Comments per pt report indep PLOF using no AD Self Care: Independent Functional Cognition: Independent Occupation: disabled Drive Self: Yes OT Current Status Subjective pt sitting in recliner chair upon OT arrival. pt reports no pain. pt daughter present in room. pt agrees to OT session. Mental Status/Objective Patient Orientation: Normal For Age Attachments: Enriquez Catheter, IV, Oxygen (6L NC. pt reports weard 4L NC PLOF ) Current Glasses/Contacts: Yes Hearing Aids: No Dentures/Partials: Yes Hand Dominance: Right Upper Extremity ROM shoulder flex 90 degrees nahomy UE shoulder ABD 80 degrees nahomy UE elbow/ wrist/ digits, WNL Upper Extremity Coordination decrease nahomy UE coordination Upper Extremity Sensation light touch= intact Upper Extremity Strength decrease nahomy UE strength ADL-Treatment Therapy Code Descriptions/Definitions Functional [place] Measure: 0=Not Assessed/NA 4=Minimal Assistance 1=Total Assistance 5=Supervision or Setup 2=Maximal Assistance 6=Modified [place] 3=Moderate Assistance 7=Complete [place] Therapy Quality Codes: 6 Independent with activity with or without an assistive device 5 Patient requires set up or clean up by helper. Patient completes activity by themselves 4 Supervision or touching assist (CGA). Draper provide cues , steadying assist 3 The helper provides less than half the effort to complete the activity 2 The helper provides more than half the effort to complete the activity 1 Dependent. The helper does all the effort to complete an activity 7 Patient refused to complete or attempt activity 9 The patient did not perform the activity before the current illness or injury 88 Not attempted due to Medical conditions or safety concerns Eating (FIM): 5 (decrease coodniation, requires set up ) Grooming (FIM): 4 (wash face, wash hands, comb hair. pt required assist to comb back of hair secodnary to decrease UE ROM ) Lower Body Dressing (FIM): 4 (CGA while perform donning/ doffing nahomy socks ) Toileting (FIM): 1 (requried assist with toileting tasks ) Transfers (B, C, W/C) (FIM): 3 (sit to stand. use of RW ) noted pt easily distracted requiring cuing for attention to task. noted decrease activity tolerance during tasks. post OT Session, pt sitting in chair, call light, phone within reach, daughter present in room. all needs met. Education OT Patient Education: Energy conservation, Modified ADL techniques, Progress toward Goal/Update tx plan, Purpose of tx/functional activities, Safety issues, Transfer techniques, Use of adapted equipment Teaching Recipient: Patient, Family Teaching Methods: Demonstration, Discussion Response to Teaching: Verbalize Understanding, Return Demonstration OT Short Term Goals Short Term Goals Eating(FIM): 6 Grooming(FIM): 6 1=Demonstrate adherence to instructed precautions during ADL tasks. 2=Patient will verbalize/demonstrate understanding of assistive devices/modifications for ADL. 3=Patient will improve strength/tolerance for activity to enable patient to perform ADL's. OT Nursing Home Goals Benzene Worker Goals Time Frame: Mar 30, 2019 Eating (FIM): 6 Grooming(FIM): 6 Bathing(FIM): 6 Bathing Location: L Arm, R Arm, L Upper Leg, R Upper Leg, L Lower Leg (including foot), R Lower Leg (including foot), Chest, Abdomen, Buttocks, Perineal Area Upper Body Dressing(FIM): 6 Lower Body Dressing(FIM): 6 Toileting(FIM): 6 Transfers (B,C,W/C) (FIM): 6 Toilet/Commode Transfer(FIM): 6 Additional Goals: 1-Demonstrate ADL Tasks, 2-Verbalize Understanding, 3- ImproveStrength/Jose 1=Demonstrate adherence to instructed precautions during ADL tasks. 2=Patient will verbalize/demonstrate understanding of assistive devices/modifications for ADL. 3=Patient will improve strength/tolerance for activity to enable patient to perform ADL's. OT Education/Plan Problem List/Assessment Assessment: Decreased Activ Tolerance, Decreased Safety Aware, Decreased UE Strength, Impaired Bed Mobility, Impaired Coordination, Impaired Funct Balance, Impaired I ADL's, Impaired Self-Care Skills, Restricted Funct UE ROM pt presents with functional limitations affecting areas of ADLS and functional transfers with the above mention deficits including decrease attention to task. pt would benefit from OT services to increase indep with ADLS and functional transfers. pt is not safe to return home at this time from an OT standpoint. recommend inpt rehab when medically stable to continue addressing deficits and for safe transition back to home. Discharge Recommendations Plan/Recommendations: Continue POC Therapy D/C Recommendations: Acute Rehab Barriers to Progress decrease attention to task Treatment Plan/Plan of Care Treatment,Training & Education: Yes Patient would benefit from OT for education, treatment and training to promote independence in ADL's, mobility, safety and/or upper extremity function for ADL's. Plan of Care: ADL Retraining, Functional Mobility, Group Exercise/Act as Ind, UE Funct Exercise/Act Treatment Duration: Mar 30, 2019 Frequency: 5 times per week Estimated Hrs Per Day: .25 hour per day Agreement: Yes Rehab Potential: Fair Time/GCodes Start Time: 10:30 Stop Time: 10:55 Billed Treatment Time EVM 15 minutes, ADL 10 minutes, 1 unit KUMAR SOUZA OT Mar 16, 2019 10:58
--- NOTE | 2019-03-16 14:21 | NUR ---
Report called to JIMMY Fernandes who will assume pt care on arrival to 4th floor. Personal belongings with pt at time of transfer.
--- NOTE | 2019-03-16 14:30 | NUR ---
Pt transferred via bed at this time by this RN. Personal belongings at bedside at this time.
--- NOTE | 2019-03-16 14:45 | NUR ---
Report received from Lyla MARQUEZ, patient in room laying in bed resting at this time, patient call light within reach. Denies any pain or discomfort at this time. Will assume care at this time.
--- NOTE | 2019-03-16 16:14 | Cardiology Progress Note ---
Cardiology SOAP Progress Note Subjective: No cardiac complaints. Objective: I&O/Vital Signs 03/16/19 03/16/19 03/16/19 03/16/19 09:00 09:00 10:00 11:00 Temp 97.6 Pulse 9 74 Resp 23 39 B/P (MAP) 150/97 (114) Pulse Ox 93 90 O2 Delivery High Flow N/C High Flow N/C High Flow N/C O2 Flow Rate 8.00 8.00 8.00 03/16/19 03/16/19 03/16/19 03/16/19 11:00 12:00 12:00 13:00 Pulse 87 71 72 Resp 24 28 28 B/P (MAP) 114/91 (99) Pulse Ox 97 95 97 O2 Delivery High Flow N/C Vapotherm High Flow N/C High Flow N/C O2 Flow Rate 8.00 4.00 8.00 8.00 03/16/19 03/16/19 03/16/19 03/16/19 13:00 14:00 14:11 14:35 Temp 98.0 Pulse 70 63 71 Resp 18 18 B/P (MAP) 156/86 (109) 153/75 (101) Pulse Ox 98 99 90 O2 Delivery High Flow N/C High Flow N/C High Flow N/C O2 Flow Rate 8.00 6.00 6.00 03/16/19 03/16/19 03/16/19 16:21 19:07 20:13 Temp 98.6 97.0 Pulse 71 78 Resp 22 20 B/P (MAP) 170/83 (112) 195/94 (127) 150/78 (102) Pulse Ox 91 92 O2 Delivery High Flow N/C High Flow N/C O2 Flow Rate 6.00 6.00 03/16/19 00:00 Intake Total 1480 ml Output Total 250 ml Balance 1230 ml Weight (Pounds): 213 Weight (Ounces): 1.0 Weight (Calculated Kilograms): 96.271857 Constitutional: appears stated age, AAO x 3, well-developed, well-nourished Respiratory: chest is bilaterally symmetric, lungs clear to auscultation Cardiovascular: regular rate-rhythm, S1 and S2, systolic murmur (soft CHANEL at card base) Gastrointestional: No tender; soft; No guarding, No rebound; audible bowel so unds Extremities: other (mild, bilat leg edema); No clubbing, No cyanosis Neurologic/Psychiatric: no motor/sensory deficits, alert, normal mood/affect, oriented x 3, other (moves all limbs equally) Skin: No rash, No ulcerations Results/Procedures: Labs Laboratory Tests 03/16/19 00:47: Glucometer 158H 03/16/19 02:55: White Blood Count 6.6, Red Blood Count 5.41, Hemoglobin 14.5, Hematocrit 49, Mean Corpuscular Volume 91, Mean Corpuscular Hemoglobin 27, Mean Corpuscular Hemoglobin Concent 30L, Red Cell Distribution Width 15.8H, Platelet Count 181, Mean Platelet Volume 10.6H, Neutrophils (%) (Auto) 84H, Lymphocytes (%) (Auto) 9L, Monocytes (%) (Auto) 7, Eosinophils (%) (Auto) 0, Basophils (%) (Auto) 0, Neutrophils # (Auto) 5.5, Lymphocytes # (Auto) 0.6L, Monocytes # (Auto) 0.5, Eosinophils # (Auto) 0.0, Basophils # (Auto) 0.0, Sodium Level 143, Potassium Level 3.5L, Chloride Level 96L, Carbon Dioxide Level 35H, Anion Gap 12, Blood Urea Nitrogen 29H, Creatinine 0.84, Estimat Glomerular Filtration Rate > 60, BUN/Creatinine Ratio 35, Glucose Level 227H, Calcium Level 9.9, Phosphorus Level 3.6, Magnesium Level 2.0 03/16/19 03:45: Blood Gas Puncture Site RIGHT RADIAL, Blood Gas Patient Temperature 98.6, Arterial Blood pH 7.41, Arterial Blood Partial Pressure CO2 64H, Arterial Blood Partial Pressure O2 72L, Arterial Blood HCO3 40H, Arterial Blood Total CO2 42.2H , Arterial Blood Oxygen Saturation 94, Arterial Blood Base Excess 14.8H, Da Test YES-POS, Blood Gas Ventilator Setting NO, Blood Gas Inspired Oxygen 50% 03/16/19 11:55: Glucometer 181H 03/16/19 18:11: Glucometer 214H Microbiology 03/09/19 Blood Culture - Final, Complete No growth 03/09/19 MRSA Screen - Final, Complete 03/09/19 Urine Culture - Final, Complete 3 or more isolates A/P: Assessment/Dx: Acute respiratory failure, COPD exacerbation, acute diastolic congestive heart failure, Diabetes, Active smoking, Hyperlipidemia, Hypercalcemia Plan: Acute respiratory failure, COPD exacerbation. Extubated, improving gradually. COPD exacerbation, acute diastolic congestive heart failure, improved significantly. Echocardiogram done 03/09/2019 shows normal LV function with mild to moderate diastolic dysfunction. Severe pulmonary hypertension. left heart catheterization done on 03/11/2019 showed a significantly elevated LVEDP suggesting diastolic dysfunction. Continue Lasix as needed Positive troponin, likely type II myocardial infarction due to acute respiratory failure. coronary angiography done 03/11/2019 which showed patent epicardial coronary arteries. Therefore working diagnosis is type II myocardial infarction. Diabetes, Active smoking, Hyperlipidemia, Hypercalcemia Thank you for your consultation. Please call me if you have any questions. Ceasar Elena MD, FACP, FACC, FSCAI, FHRS, CCDS Interventional Cardiology Cardiac Electrophysiology Vascular Medicine and Endovascular Interventions Nick ELENA MD Mar 16, 2019 16:14
--- NOTE | 2019-03-16 16:26 | NUR ---
IRF Evaluation Order received to evaluate patient for the ARU. Chart review complete and findings discussed with Dr. Lemus - patient accepted for admission. It is noted patient's primary insurance provider is [facility]; therefore, a prior authorization will need to be obtained, prior to admission. Will continue to follow. Thank you for this referral.
[2019-03-16] MEDS: NS IV 1000 ML 1,000 ML IV SCH (18:34)
[2019-03-16] MEDS: FAMOTIDINE 20 MG (PEPCID) TABLET PO SCH (20:12)
[2019-03-17] MEDS: inSUlin ASPART (NovoLOG) 1 UNIT/0.01 ML (CHARGE PER UNIT) SQ SCH ×4 (00:25→18:38)
[2019-03-17 04:55] VITALS: BP 171/88
[2019-03-17] MEDS: POTASSIUM CL 10MEQ/50ML IVPB 50 ML IV SCH (05:57)
[2019-03-17] MEDS: MAGNESIUM 1 GM/100 ML IVPB 100 ML IV SCH (05:58)
[2019-03-17] MEDS: KCL 20 MEQ TAB (K-DUR) PO SCH (05:58)
--- NOTE | 2019-03-17 05:59 | NUR ---
THIS RN NON ADMIN THIS AM DOSE OF K AND MG D/T DECREASED URINE OUTPUT PER PROTOCOL.
[2019-03-17] MEDS: methylPREDNISolone 40 MG/ML (Solu-MEDROL) VIAL IV SCH ×3 (06:38→18:38)
--- NOTE | 2019-03-17 06:59 | Pulmonary Progress Note ---
Subjective Time Seen by a Provider: 07:01 Subjective/Events-last exam Pt appears to be doing better. Sepsis Event Evaluation Height, Weight, BMI Height: 5'6.00" Weight: 215lbs. 7.0oz. 97.812372xb; 33.9 BMI Method:Estimated Exam Exam Vital Signs Date Time Temp Pulse Resp B/P (MAP) Pulse Ox O2 Delivery O2 Flow Rate FiO2 03/17/19 04:55 97.9 64 20 171/88 (115) 92 High Flow N/C 6.00 03/17/19 02:30 51 16 93 50.00 03/16/19 23:45 97.8 74 21 125/84 (98) 90 High Flow N/C 6.00 03/16/19 22:19 90 High Flow N/C 6.00 03/16/19 21:00 Nasal Cannula 8.00 03/16/19 20:13 150/78 (102) 03/16/19 19:14 92 High Flow N/C 6.00 03/16/19 19:07 97.0 78 20 195/94 (127) 92 High Flow N/C 6.00 03/16/19 16:21 98.6 71 22 170/83 (112) 91 High Flow N/C 6.00 03/16/19 14:35 98.0 71 18 153/75 (101) 90 High Flow N/C 6.00 03/16/19 14:11 99 High Flow N/C 6.00 03/16/19 14:00 63 18 156/86 (109) 98 High Flow N/C 8.00 03/16/19 13:00 70 03/16/19 13:00 72 28 114/91 (99) 97 High Flow N/C 8.00 03/16/19 12:00 71 28 95 High Flow N/C 8.00 03/16/19 12:00 Vapotherm 4.00 03/16/19 11:00 87 24 97 High Flow N/C 8.00 03/16/19 11:00 90 High Flow N/C 8.00 03/16/19 10:00 74 39 93 High Flow N/C 8.00 03/16/19 09:00 9 23 150/97 (114) High Flow N/C 8.00 03/16/19 09:00 97.6 03/16/19 08:00 73 23 111/93 (99) High Flow N/C 8.00 03/16/19 08:00 Vapotherm 8.00 03/16/19 07:00 93 24 156/103 (120) 92 High Flow N/C 8.00 03/16/19 07:00 73 I & O 03/17/19 07:00 Intake Total 1500 ml Output Total 550 ml Balance 950 ml Height & Weight Height: 5'6.00" Weight: 215lbs. 7.0oz. 97.017074ti; 33.9 BMI Method:Estimated General Appearance: No Apparent Distress, WD/WN, Chronically ill HEENT: PERRL/EOMI, Normal ENT Inspection, Pharynx Normal Neck: Full Range of Motion, Non Tender, Supple Respiratory: Chest Non Tender, No Accessory Muscle Use, No Respiratory Distress, Crackles, Decreased Breath Sounds Cardiovascular: Regular Rate, Rhythm, No Edema, No Gallop, No JVD, No Murmur, Normal Peripheral Pulses Capillary Refill: Less Than 3 Seconds Gastrointestinal: normal bowel sounds, soft Extremity: Non Tender, No Pedal Edema Neurologic/Psychiatric: Alert, Oriented x3, No Motor/Sensory Deficits, Normal Mood/Affect Skin: Normal Color, Warm/Dry Lymphatic: No Adenopathy Results Lab Laboratory Tests 03/15/19 19:41 03/16/19 02:55 Assessment/Plan Assessment/Plan Acute respiratory failure - -Currently on NC. MRSA PNA - Sputum was obtained upon intubation. This is not ventilator associated PNA. -MRSA swab is positive and was done upon ICU admission -Continue vanco started 03/11 Atelectasis -IS -INcrease activity -Change SVN to easy PAP Decreased UO -increase IVF to 50cc/hr -Monitor HX of severe oxygen dependent COPD -Last PFT was 2014 and shows severe emphysema -Prognosis is guarded to poor. Grade 1 diastolic cardiomyopathy per Echo -Monitor COPDAE -Solumedrol - 40 IV Q 6 -SVNs Q 4 UTI -Rocephin -Cultures pending WESLEY ALMAGUER DO Mar 17, 2019 06:59
[2019-03-17 07:10] LABS: BUN/CREATININE RATIO 33; CALCIUM 9.9 MG/DL (8.5-10.1); CARBON DIOXIDE 32 MMOL/L (21-32); CHLORIDE 99 MMOL/L (98-107); CREATININE SERUM 0.75 MG/DL (0.60-1.30); GFR ESTIMATED > 60; GLUCOSE 181 MG/DL (70-105); MAGNESIUM 1.7 MG/DL (1.6-2.4); POTASSIUM 4.5 MMOL/L (3.6-5.0); SODIUM 141 MMOL/L (135-145); TRIGLYCERIDES 198 MG/DL (<150)
[2019-03-17] MEDS: RT-BUDESONIDE NEBS 0.5 MG/2ML (PULMICORT) AMP INH SCH ×2 (07:15→18:43)
[2019-03-17 08:00] VITALS: BP 160/90
[2019-03-17] MEDS: ENOXAPARIN 40 MG/0.4 ML (LOVENOX) SYR SC SCH (08:37)
[2019-03-17] MEDS: FAMOTIDINE 20 MG (PEPCID) TABLET PO SCH ×2 (08:38→20:29)
[2019-03-17] MEDS: meTOproloL SUCCINATE 50 MG (TOPROL XL) TAB PO SCH (08:38)
[2019-03-17] MEDS: ASPIRIN 81 MG CHEW (CHILDREN'S ASA) PO SCH (08:38)
[2019-03-17] MEDS: FUROSEMIDE 40 MG/4 ML INJ (LASIX) IVP SCH (08:38)
--- NOTE | 2019-03-17 08:48 | Physical Therapy Daily Note ---
PT Daily Note-Current Subjective Patient agrees to PT. Mental Status Patient Orientation: Normal For Age Attachments: Oxygen, IV Transfers Therapy Code Descriptions/Definitions Functional [place] Measure: 0=Not Assessed/NA 4=Minimal Assistance 1=Total Assistance 5=Supervision or Setup 2=Maximal Assistance 6=Modified [place] 3=Moderate Assistance 7=Complete [place] Therapy Quality Codes: 6 Independent with activity with or without an assistive device 5 Patient requires set up or clean up by helper. Patient completes activity by themselves 4 Supervision or touching assist (CGA). Dwight provide cues , steadying assist 3 The helper provides less than half the effort to complete the activity 2 The helper provides more than half the effort to complete the activity 1 Dependent. The helper does all the effort to complete an activity 7 Patient refused to complete or attempt activity 9 The patient did not perform the activity before the current illness or injury 88 Not attempted due to Medical conditions or safety concerns Transfers (B, C, W/C) (FIM): 5 Scootin Rollin Supine to/from Sit: 7 Sit to/from Stand: 5 Gait Training Gait (FIM): 1 Distance (FIM): 1=up to 49 ft Distance: 20' x 2 Gait Level of Assist: 4 Gait Assistive Device: FWW Exercises Standing: Marching, Mini squats, Side steps Standing Reps: 20 (3 sets) Assessment Patient much improved with gross motor skills. Declined ambulating in hallway, however, did in room. PT to increase activity as tolerated by patient. PT Care Home Goals Care Home Goals PT [id number] Developer Goals Time Frame: Mar 28, 2019 Transfers (B,C,W/C) (FIM): 7 Gait (FIM): 7 Gait distance (FIM): 3=150 ft Distance: 150' Gait Level of Assist: 7 Gait Assistive Device: None Stairs (FIM): 6 # of Steps: 12 Stairs Level Of Assist: 6 PT Plan Treatment/Plan Treatment Plan: Continue Plan of Care Treatment Plan: Bed Mobility, Education, Functional Activity Jose, Functional Strength, Gait, Safety, Therapeutic Exercise, Transfers Treatment Duration: Mar 28, 2019 Frequency: 6 times per week Estimated Hrs Per Day: .25 hour per day Patient and/or Family Agrees t: Yes Time/GCodes Time In: 811 Time Out: 825 Total Billed Treatment Time: 14 Total Billed Treatment 1 visit FA 14 min KARY CANALES PT Mar 17, 2019 08:48
--- NOTE | 2019-03-17 09:07 | Cardiology Progress Note ---
Cardiology SOAP Progress Note Subjective: Improved shortness of breath Objective: I&O/Vital Signs 03/17/19 03/17/19 03/17/19 03/17/19 04:55 07:20 08:00 09:00 Temp 97.9 97.4 Pulse 64 65 Resp 20 18 B/P (MAP) 171/88 (115) 160/90 (113) Pulse Ox 92 90 97 O2 Delivery High Flow N/C High Flow N/C High Flow N/C Nasal Cannula O2 Flow Rate 6.00 6.00 6.00 8.00 03/17/19 03/17/19 03/17/19 03/17/19 10:51 12:51 14:23 15:58 Temp 97.9 97.0 Pulse 60 78 Resp 18 20 B/P (MAP) 168/89 (115) 163/95 (117) Pulse Ox 92 93 90 91 O2 Delivery High Flow N/C High Flow N/C High Flow N/C High Flow N/C O2 Flow Rate 6.00 6.00 6.00 6.00 03/17/19 00:00 Intake Total 1140 ml Output Total 300 ml Balance 840 ml Weight (Pounds): 215 Weight (Ounces): 7.0 Weight (Calculated Kilograms): 97.995474 Constitutional: appears stated age, AAO x 3, well-developed, well-nourished Respiratory: chest is bilaterally symmetric, lungs clear to auscultation Cardiovascular: regular rate-rhythm, S1 and S2, systolic murmur (soft CHANEL at card base) Gastrointestional: No tender; soft; No guarding, No rebound; audible bowel sounds Extremities: other (mild, bilat leg edema); No clubbing, No cyanosis Neurologic/Psychiatric: no motor/sensory deficits, alert, normal mood/affect, oriented x 3, other (moves all limbs equally) Skin: No rash, No ulcerations Results/Procedures: Labs Laboratory Tests 03/16/19 18:11: Glucometer 214H 03/16/19 23:36: Glucometer 172H 03/17/19 05:43: Sodium Level 141, Potassium Level 4.5, Chloride Level 99, Carbon Dioxide Level 32, Anion Gap 10, Blood Urea Nitrogen 25H, Creatinine 0.75, Estimat Glomerular Filtration Rate > 60, BUN/Creatinine Ratio 33, Glucose Level 181H, Calcium Level 9.9, Magnesium Level 1.7, Triglycerides Level 198H 03/17/19 05:46: Glucometer 192H 03/17/19 05:47: B-Type Natriuretic Peptide 214.2H 03/17/19 11:53: Glucometer 165H Microbiology 03/09/19 Blood Culture - Final, Complete No growth 03/09/19 MRSA Screen - Final, Complete 03/09/19 Urine Culture - Final, Complete 3 or more isolates A/P: Assessment/Dx: Acute respiratory failure, COPD exacerbation, acute diastolic congestive heart failure, Diabetes, Active smoking, Hyperlipidemia, Hypercalcemia Plan: Acute respiratory failure, COPD exacerbation. Extubated, improving gradually. COPD exacerbation, acute diastolic congestive heart failure, improved significantly. Echocardiogram done 03/09/2019 shows normal LV function with mild to moderate diastolic dysfunction. Severe pulmonary hypertension. left heart catheterization done on 03/11/2019 showed a significantly elevated LVEDP suggesting diastolic dysfunction. Continue Lasix as needed Positive troponin, likely type II myocardial infarction due to acute respiratory failure. coronary angiography done 03/11/2019 which showed patent epicardial coronary arteries. Therefore working diagnosis is type II myocardial infarction. Diabetes, Active smoking, Hyperlipidemia, Hypercalcemia Thank you for your consultation. Please call me if you have any questions. Ceasar Elena MD, FACP, FACC, FSCAI, FHRS, CCDS Interventional Cardiology Cardiac Electrophysiology Vascular Medicine and Endovascular Interventions Nick ELENA MD Mar 17, 2019 09:07
--- NOTE | 2019-03-17 09:41 | Progress Note - Hospitalist ---
Subjective HPI/CC On Admission Date Seen by Provider: Mar 17, 2019 Time Seen by Provider: 09:00 Subjective/Events-last exam She is doing much better. Inpatient rehab pending. Has given up smoking completely. Bowels are not as loose as they were yesterday. PT and OT will continue. Lungs sound much better. Labs remain stable. Review of Systems Pulmonary: Dyspnea Gastrointestinal: Diarrhea Objective Exam Vital Signs Vital Signs Date Time Temp Pulse Resp B/P (MAP) Pulse Ox O2 Delivery O2 Flow Rate FiO2 03/17/19 19:20 98.2 59 20 155/83 (107) 98 High Flow N/C 6.00 03/16/19 04:00 55 Capillary Refill : Less Than 3 Seconds General Appearance: No Apparent Distress, WD/WN Respiratory: Chest Non Tender, Lungs Clear, No Accessory Muscle Use, No Respiratory Distress, Decreased Breath Sounds Cardiovascular: Regular Rate, Rhythm, No Edema, No Gallop, No JVD, No Murmur, Normal Peripheral Pulses Neurologic/Psychiatric: Alert, Oriented x3, No Motor/Sensory Deficits, Normal Mood/Affect Results/Procedures Lab Laboratory Tests 03/17/19 05:43 Patient resulted labs reviewed. Assessment/Plan Assessment and Plan Assess & Plan/Chief Complaint Assessment: s/p VDRF MRSA Pneumonia Vanc 03/11/19 Smoker COPD severe at baseline maintained on O2 dependency Debility Grade 1 diastolic cardiomyopathy AECOPD UTI Plan: IRF? PT/OT Nebs O2 Abx Diagnosis/Problems Diagnosis/Problems (1) Acute and chronic respiratory failure with hypoxia Status: Acute (2) Respiratory failure Status: Acute Qualifiers: Chronicity: acute on chronic Respiratory failure complication: unspecified whether with hypoxia or hypercapnia Qualified Codes: J96.20 - Acute and chronic respiratory failure, unspecified whether with hypoxia or hypercapnia (3) Oxygen dependent Status: Chronic (4) JORGE L treated with BiPAP Status: Chronic (5) Depression Status: Chronic Qualifiers: Depression Type: unspecified Qualified Codes: F32.9 - Major depressive disorder, single episode, unspecified (6) CHF (congestive heart failure) Status: Chronic Qualifiers: Heart failure type: diastolic Heart failure chronicity: acute on chronic Qualified Codes: I50.33 - Acute on chronic diastolic (congestive) heart failure (7) UTI (urinary tract infection) Status: Acute Qualifiers: Urinary tract infection type: acute cystitis Hematuria presence: without hematuria Qualified Codes: N30.00 - Acute cystitis without hematuria (8) Sepsis Status: Acute Qualifiers: Sepsis type: sepsis due to unspecified organism (9) Pneumonia Status: Acute Qualifiers: Laterality: unspecified laterality Lung location: unspecified part of lung (10) Elevated troponin Status: Acute (11) CO2 narcosis Status: Acute (12) Heavy cigarette smoker Status: Acute (13) Hypothyroidism Status: Chronic Qualifiers: Hypothyroidism type: acquired Qualified Codes: E03.9 - Hypothyroidism, unspecified (14) Non-insulin treated type 2 diabetes mellitus Status: Chronic (15) Hypercalcemia Status: Acute (16) HTN (hypertension) Status: Chronic Qualifiers: Hypertension type: essential hypertension Qualified Codes: I10 - Essential (primary) hypertension (17) COPD exacerbation Status: Acute Clinical Quality Measures DVT/VTE Risk/Contraindication: Risk Factor Score Per Nursin RFS Level Per Nursing on Admit: 4+=Very High CLAIRE BAZZI DO Mar 17, 2019 09:41
--- NOTE | 2019-03-17 09:53 | Occupational Ther Daily Note ---
OT Current Status-Daily Note Subjective pt sitting EOB upon OT arrival. pt agreed to OT TX session with focus increasing UE ROM/ Strength for daily activities. pt refused ADLs this date Pain Numeric Pain Scale: 0-No Pain Mental Status/Objective Patient Orientation: Normal For Age Therapy Code Descriptions/Definitions Functional [place] Measure: 0=Not Assessed/NA 4=Minimal Assistance 1=Total Assistance 5=Supervision or Setup 2=Maximal Assistance 6=Modified [place] 3=Moderate Assistance 7=Complete [place] Attachments: Enriquez Catheter, Oxygen Other Treatment pt education on ROM ex to increase UE ROM/ Strength for daily activites. noted increase ROM this date to full ROM nahomy UE with additional timing. noted decrease coordination with tasks. pt stated "I feel like I just don't have control over my arms." pt perform 15X1 shoulder ROM in all planes, 15X 1 elbow ROM all planes, against gravity. pt sitting EOB post OT Session, call light within reach, all needs met. Education OT Patient Education: Energy conservation, Exercise program Teaching Recipient: Patient Teaching Methods: Demonstration, Discussion Response to Teaching: Verbalize Understanding, Return Demonstration OT Short Term Goals Short Term Goals Eating(FIM): 6 Grooming(FIM): 6 1=Demonstrate adherence to instructed precautions during ADL tasks. 2=Patient will verbalize/demonstrate understanding of assistive devices/modifications for ADL. 3=Patient will improve strength/tolerance for activity to enable patient to perform ADL's. OT Financial Developer Goals Financial Developer Goals Time Frame: Mar 30, 2019 Eating (FIM): 6 Grooming(FIM): 6 Bathing(FIM): 6 Bathing Location: L Arm, R Arm, L Upper Leg, R Upper Leg, L Lower Leg (including foot), R Lower Leg (including foot), Chest, Abdomen, Buttocks, Perineal Area Upper Body Dressing(FIM): 6 Lower Body Dressing(FIM): 6 Toileting(FIM): 6 Transfers (B,C,W/C) (FIM): 6 Toilet/Commode Transfer(FIM): 6 Additional Goals: 1-Demonstrate ADL Tasks, 2-Verbalize Understanding, 3- ImproveStrength/Jose 1=Demonstrate adherence to instructed precautions during ADL tasks. 2=Patient will verbalize/demonstrate understanding of assistive devices/modifications for ADL. 3=Patient will improve strength/tolerance for activity to enable patient to perform ADL's. OT Education/Plan Problem List/Assessment Assessment: Decreased Activ Tolerance, Decreased Safety Aware, Decreased UE Strength, Impaired Coordination, Impaired Funct Balance, Impaired I ADL's, Impaired Self-Care Skills, Restricted Funct UE ROM pt presents with functional limitations affecting areas of ADLS and functional transfers with the above mention deficits including decrease attention to task. pt would benefit from OT services to increase indep with ADLS and functional transfers. pt is not safe to return home at this time from an OT standpoint. recommend inpt rehab when medically stable to continue addressing deficits and for safe transition back to home. Discharge Recommendations Plan/Recommendations: Continue POC Therapy D/C Recommendations: Acute Rehab Treatment Plan/Plan of Care Treatment,Training & Education: Yes Patient would benefit from OT for education, treatment and training to promote independence in ADL's, mobility, safety and/or upper extremity function for ADL's. Plan of Care: ADL Retraining, Functional Mobility, Group Exercise/Act as Ind, UE Funct Exercise/Act Treatment Duration: Mar 30, 2019 Frequency: 5 times per week Estimated Hrs Per Day: .25 hour per day Agreement: Yes Rehab Potential: Fair Time/GCodes Start Time: 09:35 Stop Time: 09:50 Billed Treatment Time EX 15 minutes, 1 unit KUMAR SOUZA OT Mar 17, 2019 09:53
--- NOTE | 2019-03-17 10:20 | Diagnostic Imaging Report ---
Indication: Shortness of breath. Comparison made with prior examination from 03/16/19. Findings: The heart size is normal. There is persistent patchy infiltrate in the right lung base. The mediastinum is unremarkable. There is no pleural effusion, pneumothorax or pneumonia. Impression: Unchanged patchy infiltrate in the right lung base. Dictated by: Dictated on workstation # [id number]
[2019-03-17 12:51] VITALS: BP 168/89
[2019-03-17] MEDS: NS IV 1000 ML 1,000 ML IV SCH (14:35)
[2019-03-17 15:58] VITALS: BP 163/95
[2019-03-17 19:20] VITALS: BP 155/83
[2019-03-18] VITALS: BP 118/67
[2019-03-18] MEDS: inSUlin ASPART (NovoLOG) 1 UNIT/0.01 ML (CHARGE PER UNIT) SQ SCH ×4 (01:28→18:58)
[2019-03-18 04:00] VITALS: BP 136/73
[2019-03-18 05:48] LABS: BASOPHILS % (AUTO) 0 % (0-10); EOSINOPHILS % (AUTO) 0 % (0-10); HEMATOCRIT 50 % (35-52); HEMOGLOBIN 15.1 G/DL (11.5-16.0); LYMPHOCYTES # (AUTO) 0.6 X 10^3 (1.0-4.0); LYMPHOCYTES % (AUTO) 8 % (12-44); MEAN CORPUSCULAR HEMOGLOBIN 27 PG (25-34); MEAN CORPUSCULAR HGB CONC 30 G/DL (32-36); MEAN CORPUSCULAR VOLUME 90 FL (80-99); MEAN PLATELET VOLUME 10.8 FL (7.4-10.4); MONOCYTES # (AUTO) 0.5 X 10^3 (0.0-1.0); MONOCYTES % (AUTO) 7 % (0-12); NEUTROPHILS # (AUTO) 6.7 X 10^3 (1.8-7.8); NEUTROPHILS % (AUTO) 85 % (42-75); PLATELET COUNT 214 10^3/uL (130-400); RED CELL DISTRIBUTION WIDTH 14.8 % (10.0-14.5); WHITE BLOOD COUNT 7.8 10^3/uL (4.3-11.0)
[2019-03-18 06:08] LABS: ALANINE AMINOTRANSFERASE 17 U/L (0-55); ALBUMIN 3.1 GM/DL (3.2-4.5); ALKALINE PHOSPHATASE 66 U/L (40-136); BILIRUBIN,TOTAL 0.3 MG/DL (0.1-1.0); BUN/CREATININE RATIO 35; CALCIUM 9.6 MG/DL (8.5-10.1); CARBON DIOXIDE 35 MMOL/L (21-32); CHLORIDE 96 MMOL/L (98-107); CREATININE SERUM 0.77 MG/DL (0.60-1.30); GFR ESTIMATED > 60; GLUCOSE 221 MG/DL (70-105); POTASSIUM 4.6 MMOL/L (3.6-5.0); SODIUM 140 MMOL/L (135-145)
[2019-03-18] MEDS: POTASSIUM CL 10MEQ/50ML IVPB 50 ML IV SCH (06:18)
[2019-03-18] MEDS: MAGNESIUM 1 GM/100 ML IVPB 100 ML IV SCH (06:19)
[2019-03-18] MEDS: KCL 20 MEQ TAB (K-DUR) PO SCH (06:19)
[2019-03-18] MEDS: methylPREDNISolone 40 MG/ML (Solu-MEDROL) VIAL IV SCH ×4 (06:34→18:58)
[2019-03-18] MEDS: RT-BUDESONIDE NEBS 0.5 MG/2ML (PULMICORT) AMP INH SCH ×2 (07:16→19:31)
--- NOTE | 2019-03-18 07:16 | Pulmonary Progress Note ---
Subjective Time Seen by a Provider: 13:35 Subjective/Events-last exam Pt appears to be doing better Sepsis Event Evaluation Height, Weight, BMI Height: 5'6.00" Weight: 215lbs. 7.0oz. 97.762041bw; 33.9 BMI Method:Estimated Exam Exam Vital Signs Date Time Temp Pulse Resp B/P (MAP) Pulse Ox O2 Delivery O2 Flow Rate FiO2 03/18/19 04:00 97.7 63 19 136/73 (94) 98 High Flow N/C 6.00 03/18/19 01:31 50 23 92 50.00 03/18/19 00:00 97.5 58 18 118/67 (84) 98 High Flow N/C 6.00 03/17/19 20:40 Nasal Cannula 6.00 03/17/19 19:20 98.2 59 20 155/83 (107) 98 High Flow N/C 6.00 03/17/19 18:39 96 High Flow N/C 6.00 03/17/19 15:58 97.0 78 20 163/95 (117) 91 High Flow N/C 6.00 03/17/19 14:23 90 High Flow N/C 6.00 03/17/19 12:51 97.9 60 18 168/89 (115) 93 High Flow N/C 6.00 03/17/19 10:51 92 High Flow N/C 6.00 03/17/19 09:00 Nasal Cannula 8.00 03/17/19 08:00 97.4 65 18 160/90 (113) 97 High Flow N/C 6.00 03/17/19 07:20 90 High Flow N/C 6.00 I & O 03/18/19 07:00 Intake Total 2380 ml Output Total 2750 ml Balance -370 ml Height & Weight Height: 5'6.00" Weight: 215lbs. 7.0oz. 97.676711tu; 33.9 BMI Method:Estimated General Appearance: No Apparent Distress, WD/WN HEENT: PERRL/EOMI, Normal ENT Inspection, Pharynx Normal Neck: Full Range of Motion, Non Tender, Supple Respiratory: Chest Non Tender, Lungs Clear, No Accessory Muscle Use, No Res piratory Distress, Decreased Breath Sounds Cardiovascular: Regular Rate, Rhythm, No Edema, No Gallop, No JVD, No Murmur, Normal Peripheral Pulses Capillary Refill: Less Than 3 Seconds Gastrointestinal: normal bowel sounds, soft Extremity: Normal Capillary Refill, Normal Inspection, No Pedal Edema Neurologic/Psychiatric: Alert, Oriented x3, No Motor/Sensory Deficits, Normal Mood/Affect Skin: Normal Color, Warm/Dry Lymphatic: No Adenopathy Results Lab Laboratory Tests 03/17/19 05:43 03/18/19 05:20 Assessment/Plan Assessment/Plan Acute respiratory failure -improving -Currently on NC. MRSA PNA - Sputum was obtained upon intubation. This is not ventilator associated PNA. -MRSA swab is positive and was done upon ICU admission -vanco started 03/11 Atelectasis -IS -INcrease activity -Change SVN to easy PAP Decreased UO -increase IVF to 50cc/hr -Monitor HX of severe oxygen dependent COPD -Last PFT was 2014 and shows severe emphysema -Prognosis is guarded to poor. Grade 1 diastolic cardiomyopathy per Echo -Monitor COPDAE -Solumedrol - 40 IV Q 6 -SVNs Q 4 UTI -Rocephin -Cultures pending WESLEY ALMAGUER DO Mar 18, 2019 07:16
[2019-03-18 08:00] VITALS: BP 168/76
--- NOTE | 2019-03-18 09:12 | Occupational Ther Daily Note ---
OT Current Status-Daily Note Subjective pt sitting up in bed upon OT arrival. pt reports no pain. pt agreed to OT TX session with focus on increasing indep with ADLS and functional mobility Pain Numeric Pain Scale: 0-No Pain Mental Status/Objective Patient Orientation: Normal For Age Therapy Code Descriptions/Definitions Functional [place] Measure: 0=Not Assessed/NA 4=Minimal Assistance 1=Total Assistance 5=Supervision or Setup 2=Maximal Assistance 6=Modified [place] 3=Moderate Assistance 7=Complete [place] ADL-Treatment Grooming (FIM): 5 (increased timing secondary to decreased coordination. wash face, comb hair, wash hands) Bathing (FIM): 4 (CGA while standing to wash buttock. ) Bathing Location: L Arm, R Arm, L Upper Leg, R Upper Leg, L Lower Leg (including foot), R Lower Leg (including foot), Chest, Abdomen, Buttocks, Perineal Area Transfers (B, C, W/C) (FIM): 4 (CGA with use of RW. noted decrease coordination ) post OT Session, pt sitting EOB, all needs met. call light within reach. Education OT Patient Education: Correct positioning, Modified ADL techniques, Progress toward Goal/Update tx plan, Purpose of tx/functional activities, Safety issues, Transfer techniques Teaching Recipient: Patient Teaching Methods: Demonstration, Discussion Response to Teaching: Verbalize Understanding, Return Demonstration OT Short Term Goals Short Term Goals Eating(FIM): 6 Grooming(FIM): 6 1=Demonstrate adherence to instructed precautions during ADL tasks. 2=Patient will verbalize/demonstrate understanding of assistive devices/modifications for ADL. 3=Patient will improve strength/tolerance for activity to enable patient to perform ADL's. OT Pharmacy Tech Goals Alf Goals Time Frame: Mar 30, 2019 Eating (FIM): 6 Grooming(FIM): 6 Bathing(FIM): 6 Bathing Location: L Arm, R Arm, L Upper Leg, R Upper Leg, L Lower Leg (including foot), R Lower Leg (including foot), Chest, Abdomen, Buttocks, Perineal Area Upper Body Dressing(FIM): 6 Lower Body Dressing(FIM): 6 Toileting(FIM): 6 Transfers (B,C,W/C) (FIM): 6 Toilet/Commode Transfer(FIM): 6 Additional Goals: 1-Demonstrate ADL Tasks, 2-Verbalize Understanding, 3- ImproveStrength/Jose 1=Demonstrate adherence to instructed precautions during ADL tasks. 2=Patient will verbalize/demonstrate understanding of assistive devices/modifications for ADL. 3=Patient will improve strength/tolerance for activity to enable patient to perform ADL's. OT Education/Plan Problem List/Assessment Assessment: Decreased Activ Tolerance, Decreased Safety Aware, Impaired Coordination, Impaired Funct Balance, Impaired I ADL's, Impaired Self-Care Skills, Restricted Funct UE ROM pt presents with functional limitations affecting areas of ADLS and functional transfers with the above mention deficits. pt would benefit from OT services to increase indep with ADLS and functional transfers. recommend inpt rehab when medically stable to continue addressing deficits and for safe transition back to home. Discharge Recommendations Plan/Recommendations: Continue POC Therapy D/C Recommendations: Acute Rehab Treatment Plan/Plan of Care Treatment,Training & Education: Yes Patient would benefit from OT for education, treatment and training to promote independence in ADL's, mobility, safety and/or upper extremity function for ADL's. Plan of Care: ADL Retraining, Functional Mobility, Group Exercise/Act as Ind, UE Funct Exercise/Act Treatment Duration: Mar 30, 2019 Frequency: 5 times per week Estimated Hrs Per Day: .25 hour per day Agreement: Yes Rehab Potential: Fair Time/GCodes Start Time: 08:45 Stop Time: 09:00 Billed Treatment Time ADL 15 minutes, 1 unit KUMAR SOUZA OT Mar 18, 2019 09:12
[2019-03-18] MEDS: FAMOTIDINE 20 MG (PEPCID) TABLET PO SCH ×2 (09:27→20:42)
[2019-03-18] MEDS: ASPIRIN 81 MG CHEW (CHILDREN'S ASA) PO SCH (09:27)
[2019-03-18] MEDS: meTOproloL SUCCINATE 50 MG (TOPROL XL) TAB PO SCH (09:27)
[2019-03-18] MEDS: FUROSEMIDE 40 MG/4 ML INJ (LASIX) IVP SCH (09:27)
[2019-03-18] MEDS: ENOXAPARIN 40 MG/0.4 ML (LOVENOX) SYR SC SCH (09:27)
[2019-03-18] MEDS: APAP 325 MG/10.15 ML LIQ (TYLENOL) UDC GT PRN (10:00)
--- NOTE | 2019-03-18 11:06 | Progress Note - Hospitalist ---
Subjective HPI/CC On Admission Date Seen by Provider: Mar 18, 2019 Time Seen by Provider: 09:30 Subjective/Events-last exam Pt doing very well Insurance pending for inpatient rehab Will DC catheter Overall feels very good and feels like she is breathing much better Feels really good about complete smoking cessation and had her family remove all bacilio trays and cigarettes Bowels are not as loose Checked meds and labs Nebulizer treatments and oxygen supplementation is maintained Review of Systems General: Fatigue Pulmonary: Dyspnea Objective Exam Vital Signs Vital Signs Date Time Temp Pulse Resp B/P (MAP) Pulse Ox O2 Delivery O2 Flow Rate FiO2 03/18/19 20:14 Nasal Cannula 3.00 03/18/19 20:09 98.8 57 18 149/67 (94) 96 03/16/19 04:00 55 Capillary Refill : Less Than 3 Seconds General Appearance: No Apparent Distress, WD/WN, Chronically ill Respiratory: Chest Non Tender, Lungs Clear, No Accessory Muscle Use, No Respiratory Distress, Decreased Breath Sounds Cardiovascular: Regular Rate, Rhythm, No Edema, No Gallop, No JVD, No Murmur, Normal Peripheral Pulses Neurologic/Psychiatric: Alert, Oriented x3, No Motor/Sensory Deficits, Normal Mood/Affect Results/Procedures Lab Laboratory Tests 03/18/19 05:20 Patient resulted labs reviewed. Assessment/Plan Assessment and Plan Assess & Plan/Chief Complaint Assessment: s/p VDRF MRSA Pneumonia Vanc 03/11/19 Smoker COPD severe at baseline maintained on O2 dependency Debility Grade 1 diastolic cardiomyopathy AECOPD UTI Plan: IRF? PT/OT Nebs O2 Abx Diagnosis/Problems Diagnosis/Problems (1) Acute and chronic respiratory failure with hypoxia Status: Acute (2) Respiratory failure Status: Acute Qualifiers: Chronicity: acute on chronic Respiratory failure complication: unspecified whether with hypoxia or hypercapnia Qualified Codes: J96.20 - Acute and chronic respiratory failure, unspecified whether with hypoxia or hypercapnia (3) Oxygen dependent Status: Chronic (4) JORGE L treated with BiPAP Status: Chronic (5) Depression Status: Chronic Qualifiers: Depression Type: unspecified Qualified Codes: F32.9 - Major depressive disorder, single episode, unspecified (6) CHF (congestive heart failure) Status: Chronic Qualifiers: Heart failure type: diastolic Heart failure chronicity: acute on chronic Qualified Codes: I50.33 - Acute on chronic diastolic (congestive) heart failure (7) UTI (urinary tract infection) Status: Acute Qualifiers: Urinary tract infection type: acute cystitis Hematuria presence: without hematuria Qualified Codes: N30.00 - Acute cystitis without hematuria (8) Sepsis Status: Acute Qualifiers: Sepsis type: sepsis due to unspecified organism (9) Pneumonia Status: Acute Qualifiers: Laterality: unspecified laterality Lung location: unspecified part of lung (10) Elevated troponin Status: Acute (11) CO2 narcosis Status: Acute (12) Heavy cigarette smoker Status: Acute (13) Hypothyroidism Status: Chronic Qualifiers: Hypothyroidism type: acquired Qualified Codes: E03.9 - Hypothyroidism, unspecified (14) Non-insulin treated type 2 diabetes mellitus Status: Chronic (15) Hypercalcemia Status: Acute (16) HTN (hypertension) Status: Chronic Qualifiers: Hypertension type: essential hypertension Qualified Codes: I10 - Essential (primary) hypertension (17) COPD exacerbation Status: Acute Clinical Quality Measures DVT/VTE Risk/Contraindication: Risk Factor Score Per Nursin RFS Level Per Nursing on Admit: 4+=Very High CLAIRE BAZZI DO Mar 18, 2019 11:06
[2019-03-18 12:00] VITALS: BP 140/68
[2019-03-18] MEDS: NS IV 1000 ML 1,000 ML IV SCH (12:28)
--- NOTE | 2019-03-18 13:13 | Cardiology Progress Note ---
Cardiology SOAP Progress Note Subjective: Improving shortness of breath. Objective: I&O/Vital Signs 03/18/19 03/18/19 03/18/19 03/18/19 01:31 04:00 07:16 08:00 Temp 97.7 97.0 Pulse 50 63 102 Resp 23 19 18 B/P (MAP) 136/73 (94) 168/76 (106) Pulse Ox 92 98 96 96 O2 Delivery High Flow N/C Nasal Cannula High Flow N/C O2 Flow Rate 50.00 6.00 6.00 6.00 03/18/19 00:00 Intake Total 2380 ml Output Total 2300 ml Balance 80 ml Weight (Pounds): 215 Weight (Ounces): 7.0 Weight (Calculated Kilograms): 97.855343 Constitutional: appears stated age, AAO x 3, well-developed, well-nourished Respiratory: chest is bilaterally symmetric, lungs clear to auscultation Cardiovascular: regular rate-rhythm, S1 and S2, systolic murmur (soft CHANEL at card base) Gastrointestional: No tender; soft; No guarding, No rebound; audible bowel sounds Extremities: other (mild, bilat leg edema); No clubbing, No cyanosis Neurologic/Psychiatric: no motor/sensory deficits, alert, normal mood/affect, oriented x 3, other (moves all limbs equally) Skin: No rash, No ulcerations Results/Procedures: Labs Laboratory Tests 03/17/19 18:05: Glucometer 173H 03/18/19 00:44: Glucometer 235H 03/18/19 05:20: White Blood Count 7.8, Red Blood Count 5.57, Hemoglobin 15.1, Hematocrit 50, Mean Corpuscular Volume 90, Mean Corpuscular Hemoglobin 27, Mean Corpuscular Hemoglobin Concent 30L, Red Cell Distribution Width 14.8H, Platelet Count 214, Mean Platelet Volume 10.8H, Neutrophils (%) (Auto) 85H, Lymphocytes (%) (Auto) 8L, Monocytes (%) (Auto) 7, Eosinophils (%) (Auto) 0, Basophils (%) (Auto) 0, Neutrophils # (Auto) 6.7, Lymphocytes # (Auto) 0.6L, Monocytes # (Auto) 0.5, Eosinophils # (Auto) 0.0, Basophils # (Auto) 0.0, Sodium Level 140, Potassium Level 4.6, Chloride Level 96L, Carbon Dioxide Level 35H, Anion Gap 9, Blood Urea Nitrogen 27H, Creatinine 0.77, Estimat Glomerular Filtration Rate > 60, BUN/Creatinine Ratio 35, Glucose Level 221H, Calcium Level 9.6, Corrected Calcium 10.3H, Total Bilirubin 0.3, Aspartate Amino Transf (AST/SGOT) 11, Alanine Aminotransferase (ALT/SGPT) 17, Alkaline Phosphatase 66, Total Protein 6.0L, Albumin 3.1L 03/18/19 06:11: Glucometer 184H 03/18/19 12:28: Glucometer 251H Microbiology 03/09/19 Blood Culture - Final, Complete No growth 03/09/19 MRSA Screen - Final, Complete 03/09/19 Urine Culture - Final, Complete 3 or more isolates A/P: Assessment/Dx: Acute respiratory failure, COPD exacerbation, acute diastolic congestive heart failure, Diabetes, Active smoking, Hyperlipidemia, Hypercalcemia Plan: Acute respiratory failure, COPD exacerbation. Extubated, improving gradually. COPD exacerbation, acute diastolic congestive heart failure, improved significantly. Echocardiogram done 03/09/2019 shows normal LV function with mild to moderate diastolic dysfunction. Severe pulmonary hypertension. left heart catheterization done on 03/11/2019 showed a significantly elevated LVEDP suggesting diastolic dysfunction. Continue Lasix as needed Positive troponin, likely type II myocardial infarction due to acute respiratory failure. coronary angiography done 03/11/2019 which showed patent epicardial coronary arteries. Therefore working diagnosis is type II myocardial infarction. Diabetes, Active smoking, Hyperlipidemia, Hypercalcemia Thank you for your consultation. Please call me if you have any questions. Ceasar Elena MD, FACP, FACC, FSCAI, FHRS, CCDS Interventional Cardiology Cardiac Electrophysiology Vascular Medicine and Endovascular Interventions Nick ELENA MD Mar 18, 2019 13:13
--- NOTE | 2019-03-18 14:24 | Physical Therapy Daily Note ---
PT Daily Note-Current Subjective Pt. agrees to Rx in and around her room. Pain Location: No Pain Reported Mental Status Patient Orientation: Normal For Age Attachments: Oxygen, IV Transfers Therapy Code Descriptions/Definitions Functional [place] Measure: 0=Not Assessed/NA 4=Minimal Assistance 1=Total Assistance 5=Supervision or Setup 2=Maximal Assistance 6=Modified [place] 3=Moderate Assistance 7=Complete [place] Therapy Quality Codes: 6 Independent with activity with or without an assistive device 5 Patient requires set up or clean up by helper. Patient completes activity by themselves 4 Supervision or touching assist (CGA). [place] provide cues , steadying assist 3 The helper provides less than half the effort to complete the activity 2 The helper provides more than half the effort to complete the activity 1 Dependent. The helper does all the effort to complete an activity 7 Patient refused to complete or attempt activity 9 The patient did not perform the activity before the current illness or injury 88 Not attempted due to Medical conditions or safety concerns Transfers (B, C, W/C) (FIM): 6 in out bed and chair SBA Gait Training Gait (FIM): 2 Distance (FIM): 9=749-22 ft (50ft ) Gait Level of Assist: 4 Gait Persons Needed: 1 Gait Assistive Device: FWW CGA and assist to manage O2 and IV Exercises Supine Ex: Ankle pumps, Rolling, Heel Slides, Hip abd/add Supine Reps: 12 Seated Therapy Exercises: Ankle pumps, Sit to stand, Long arc quads, Hip flexion, Hip abd/add Seated Reps: 15 Assessment Current Status: Good Progress PT Field Map Technician Goals [facility] Goals PT Field Map Technician Goals Time Frame: Mar 28, 2019 Transfers (B,C,W/C) (FIM): 7 Gait (FIM): 7 Gait distance (FIM): 3=150 ft Distance: 150' Gait Level of Assist: 7 Gait Assistive Device: None Stairs (FIM): 6 # of Steps: 12 Stairs Level Of Assist: 6 PT Plan Treatment/Plan Treatment Plan: Continue Plan of Care Treatment Plan: Bed Mobility, Education, Functional Activity Jose, Functional Strength, Gait, Safety, Therapeutic Exercise, Transfers Treatment Duration: Mar 28, 2019 Frequency: 6 times per week Estimated Hrs Per Day: .25 hour per day Patient and/or Family Agrees t: Yes Safety Risks/Education Patient Education: Gait Training, Transfer Techniques, Correct Positioning, Safety Issues Teaching Recipient: Patient Teaching Methods: Demonstration, Discussion Response to Teaching: Verbalize Understanding, Return Demonstration, Reinforcement Needed Time/GCodes Time In: 1400 Time Out: 1425 Total Billed Treatment Time: 25 Total Billed Treatment 1,GT12m,EX13m SATYA ARANGO HOOKMAN Mar 18, 2019 14:24
[2019-03-18 20:09] VITALS: BP 149/67
[2019-03-19] MEDS: methylPREDNISolone 40 MG/ML (Solu-MEDROL) VIAL IV SCH ×4 (00:09→18:09)
[2019-03-19 00:14] VITALS: BP 149/74
[2019-03-19] MEDS: inSUlin ASPART (NovoLOG) 1 UNIT/0.01 ML (CHARGE PER UNIT) SQ SCH ×4 (00:21→18:09)
[2019-03-19 03:43] VITALS: BP 152/72
[2019-03-19 05:40] LABS: BASOPHILS % (AUTO) 0 % (0-10); EOSINOPHILS % (AUTO) 0 % (0-10); HEMATOCRIT 52 % (35-52); HEMOGLOBIN 15.7 G/DL (11.5-16.0); LYMPHOCYTES # (AUTO) 0.6 X 10^3 (1.0-4.0); LYMPHOCYTES % (AUTO) 7 % (12-44); MEAN CORPUSCULAR HEMOGLOBIN 27 PG (25-34); MEAN CORPUSCULAR HGB CONC 30 G/DL (32-36); MEAN CORPUSCULAR VOLUME 88 FL (80-99); MEAN PLATELET VOLUME 10.7 FL (7.4-10.4); MONOCYTES # (AUTO) 0.3 X 10^3 (0.0-1.0); MONOCYTES % (AUTO) 4 % (0-12); NEUTROPHILS # (AUTO) 7.2 X 10^3 (1.8-7.8); NEUTROPHILS % (AUTO) 89 % (42-75); PLATELET COUNT 255 10^3/uL (130-400); RED CELL DISTRIBUTION WIDTH 15.1 % (10.0-14.5); WHITE BLOOD COUNT 8.1 10^3/uL (4.3-11.0)
[2019-03-19 05:50] LABS: ALANINE AMINOTRANSFERASE 19 U/L (0-55); ALBUMIN 3.2 GM/DL (3.2-4.5); ALKALINE PHOSPHATASE 69 U/L (40-136); BILIRUBIN,TOTAL 0.3 MG/DL (0.1-1.0); BUN/CREATININE RATIO 27; CALCIUM 9.6 MG/DL (8.5-10.1); CARBON DIOXIDE 32 MMOL/L (21-32); CHLORIDE 96 MMOL/L (98-107); CREATININE SERUM 0.74 MG/DL (0.60-1.30); GFR ESTIMATED > 60; GLUCOSE 248 MG/DL (70-105); POTASSIUM 4.4 MMOL/L (3.6-5.0); SODIUM 137 MMOL/L (135-145); TOTAL PROTEIN 6.1 GM/DL (6.4-8.2)
[2019-03-19 05:55] LABS: ANISOCYTOSIS SLIGHT; BAND NEUTROPHILS 0 %; BASOPHILS % (MANUAL) 0 %; EOSINOPHILS % (MANUAL) 0 %; LYMPHOCYTES % (MANUAL) 2 %; MONOCYTES % (MANUAL) 2 %; NEUTROPHILS % (MANUAL) 94 %; REACTIVE LYMPHOCYTES 2 %
[2019-03-19] MEDS: POTASSIUM CL 10MEQ/50ML IVPB 50 ML IV SCH (06:00)
[2019-03-19] MEDS: MAGNESIUM 1 GM/100 ML IVPB 100 ML IV SCH (06:00)
[2019-03-19] MEDS: KCL 20 MEQ TAB (K-DUR) PO SCH (06:00)
[2019-03-19] MEDS: RT-BUDESONIDE NEBS 0.5 MG/2ML (PULMICORT) AMP INH SCH ×2 (07:19→20:05)
[2019-03-19 08:00] VITALS: BP 135/99
[2019-03-19] MEDS: NS IV 1000 ML 1,000 ML IV SCH (09:08)
[2019-03-19] MEDS: ENOXAPARIN 40 MG/0.4 ML (LOVENOX) SYR SC SCH (09:14)
[2019-03-19] MEDS: FUROSEMIDE 40 MG/4 ML INJ (LASIX) IVP SCH (09:15)
[2019-03-19] MEDS: ASPIRIN 81 MG CHEW (CHILDREN'S ASA) PO SCH (09:15)
[2019-03-19] MEDS: FAMOTIDINE 20 MG (PEPCID) TABLET PO SCH ×2 (09:15→20:19)
[2019-03-19] MEDS: meTOproloL SUCCINATE 50 MG (TOPROL XL) TAB PO SCH (09:15)
[2019-03-19] MEDS: VITAMIN D2 50,000 UNITS (1.25 MG) CAP PO SCH (09:15)
--- NOTE | 2019-03-19 09:57 | Progress Note - Hospitalist ---
Subjective HPI/CC On Admission Date Seen by Provider: Mar 19, 2019 Time Seen by Provider: 09:00 Subjective/Events-last exam Pt doing very well. Will walk in the halls today. Getting shower right now. Already has home oxygen at home. Already has nebulizer treatments at home. Smoking cessation will be completed at time of discharge. Pt is responding well to aggressive therapy. Insurance likely not to approve inpatient rehab. Review of Systems General: Fatigue Pulmonary: Dyspnea Objective Exam Vital Signs Vital Signs Date Time Temp Pulse Resp B/P (MAP) Pulse Ox O2 Delivery O2 Flow Rate FiO2 03/19/19 20:05 92 Nasal Cannula 2.00 03/19/19 19:35 96.0 63 20 135/85 (102) 03/16/19 04:00 55 Capillary Refill : Less Than 3 Seconds General Appearance: No Apparent Distress, WD/WN, Chronically ill, Obese Respiratory: Chest Non Tender, Lungs Clear, Normal Breath Sounds, No Accessory Muscle Use, No Respiratory Distress Cardiovascular: Regular Rate, Rhythm, No Edema, No Gallop, No JVD, No Murmur, Normal Peripheral Pulses Neurologic/Psychiatric: Alert, Oriented x3, No Motor/Sensory Deficits, Normal Mood/Affect Results/Procedures Lab Laboratory Tests 03/19/19 04:40 Patient resulted labs reviewed. 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 PT/OT Nebs O2 Diagnosis/Problems Diagnosis/Problems (1) Acute and chronic respiratory failure with hypoxia Status: Acute (2) Respiratory failure Status: Acute Qualifiers: Chronicity: acute on chronic Respiratory failure complication: unspecified whether with hypoxia or hypercapnia Qualified Codes: J96.20 - Acute and chronic respiratory failure, unspecified whether with hypoxia or hypercapnia (3) Oxygen dependent Status: Chronic (4) JOGRE L treated with BiPAP Status: Chronic (5) Depression Status: Chronic Qualifiers: Depression Type: unspecified Qualified Codes: F32.9 - Major depressive disorder, single episode, unspecified (6) CHF (congestive heart failure) Status: Chronic Qualifiers: Heart failure type: diastolic Heart failure chronicity: acute on chronic Qualified Codes: I50.33 - Acute on chronic diastolic (congestive) heart failure (7) UTI (urinary tract infection) Status: Acute Qualifiers: Urinary tract infection type: acute cystitis Hematuria presence: without hematuria Qualified Codes: N30.00 - Acute cystitis without hematuria (8) Sepsis Status: Acute Qualifiers: Sepsis type: sepsis due to unspecified organism (9) Pneumonia Status: Acute Qualifiers: Laterality: unspecified laterality Lung location: unspecified part of lung (10) Elevated troponin Status: Acute (11) CO2 narcosis Status: Acute (12) Heavy cigarette smoker Status: Acute (13) Hypothyroidism Status: Chronic Qualifiers: Hypothyroidism type: acquired Qualified Codes: E03.9 - Hypothyroidism, unspecified (14) Non-insulin treated type 2 diabetes mellitus Status: Chronic (15) Hypercalcemia Status: Acute (16) HTN (hypertension) Status: Chronic Qualifiers: Hypertension type: essential hypertension Qualified Codes: I10 - Essential (primary) hypertension (17) COPD exacerbation Status: Acute Clinical Quality Measures DVT/VTE Risk/Contraindication: Risk Factor Score Per Nursin RFS Level Per Nursing on Admit: 4+=Very High CLAIRE BAZZI DO Mar 19, 2019 09:56
--- NOTE | 2019-03-19 11:18 | Cardiology Progress Note ---
Cardiology SOAP Progress Note Subjective: improved shortness of breath. Objective: I&O/Vital Signs 03/19/19 03/19/19 03/19/19 03/19/19 00:14 00:50 02:15 03:43 Temp 97.0 97.1 Pulse 57 52 51 57 Resp 20 14 15 18 B/P (MAP) 149/74 (99) 152/72 (98) Pulse Ox 97 95 94 96 O2 Delivery Nasal Cannula Nasal Cannula O2 Flow Rate 3.50 40.00 40.00 3.50 03/19/19 03/19/19 03/19/19 03/19/19 07:21 08:00 09:00 10:39 Temp 96.9 Pulse 54 Resp 20 B/P (MAP) 135/99 (111) Pulse Ox 95 98 93 O2 Delivery Nasal Cannula Nasal Cannula Nasal Cannula Nasal Cannula O2 Flow Rate 2.00 3.50 3.00 2.00 03/19/19 00:00 Intake Total 2250 ml Output Total 2300 ml Balance -50 ml Weight (Pounds): 212 Weight (Ounces): 3.0 Weight (Calculated Kilograms): 96.626296 Constitutional: appears stated age, AAO x 3, well-developed, well-nourished Respiratory: chest is bilaterally symmetric, lungs clear to auscultation Cardiovascular: regular rate-rhythm, S1 and S2, systolic murmur (soft CHANEL at card base) Gastrointestional: No tender; soft; No guarding, No rebound; audible bowel sounds Extremities: other (mild, bilat leg edema); No clubbing, No cyanosis Neurologic/Psychiatric: no motor/sensory deficits, alert, normal mood/affect, oriented x 3, other (moves all limbs equally) Skin: No rash, No ulcerations Results/Procedures: Labs Laboratory Tests 03/18/19 12:28: Glucometer 251H 03/18/19 17:45: Glucometer 242H 03/19/19 00:16: Glucometer 172H 03/19/19 04:40: White Blood Count 8.1, Red Blood Count 5.88H, Hemoglobin 15.7, Hematocrit 52, Mean Corpuscular Volume 88, Mean Corpuscular Hemoglobin 27, Mean Corpuscular Hemoglobin Concent 30L, Red Cell Distribution Width 15.1H, Platelet Count 255, Mean Platelet Volume 10.7H, Neutrophils (%) (Auto) 89H, Lymphocytes (%) (Auto) 7L, Monocytes (%) (Auto) 4, Eosinophils (%) (Auto) 0, Basophils (%) (Auto) 0, Neutrophils # (Auto) 7.2, Lymphocytes # (Auto) 0.6L, Monocytes # (Auto) 0.3, Eosinophils # (Auto) 0.0, Basophils # (Auto) 0.0, Neutrophils % (Manual) 94, Lymphocytes % (Manual) 2, Monocytes % (Manual) 2, Eosinophils % (Manual) 0, Basophils % (Manual) 0, Band Neutrophils 0, Reactive Lymphocytes 2, Anisocytosis SLIGHT, Sodium Level 137, Potassium Level 4.4, Chloride Level 96L, Carbon Dioxide Level 32, Anion Gap 9, Blood Urea Nitrogen 20H, Creatinine 0.74, Estimat Glomerular Filtration Rate > 60, BUN/Creatinine Ratio 27, Glucose Level 248H, Calcium Level 9.6, Corrected Calcium 10.2H, Total Bilirubin 0.3, Aspartate Amino Transf (AST/SGOT) 18, Alanine Aminotransferase (ALT/SGPT) 19, Alkaline Phosphatase 69, Total Protein 6.1L, Albumin 3.2 03/19/19 05:15: Glucometer 243H Microbiology 03/09/19 Blood Culture - Final, Complete No growth 03/09/19 MRSA Screen - Final, Complete 03/09/19 Urine Culture - Final, Complete 3 or more isolates A/P: Assessment/Dx: Acute respiratory failure, COPD exacerbation, acute diastolic congestive heart failure, Diabetes, Active smoking, Hyperlipidemia, Hypercalcemia Plan: Acute respiratory failure, COPD exacerbation. Extubated, improving gradually. COPD exacerbation, acute diastolic congestive heart failure, improved significantly. Echocardiogram done 03/09/2019 shows normal LV function with mild to moderate d iastolic dysfunction. Severe pulmonary hypertension. left heart catheterization done on 03/11/2019 showed a significantly elevated LVEDP suggesting diastolic dysfunction. Continue Lasix as needed Positive troponin, likely type II myocardial infarction due to acute respiratory failure. coronary angiography done 03/11/2019 which showed patent epicardial coronary arteries. Therefore working diagnosis is type II myocardial infarction. Diabetes, Active smoking, Hyperlipidemia, Hypercalcemia Thank you for your consultation. Please call me if you have any questions. Ceasar Elena MD, FACP, FACC, FSCAI, FHRS, CCDS Interventional Cardiology Cardiac Electrophysiology Vascular Medicine and Endovascular Interventions Nick ELENA MD Mar 19, 2019 11:18
[2019-03-19 12:00] VITALS: BP 129/60
--- NOTE | 2019-03-19 12:04 | Physical Therapy Daily Note ---
PT Daily Note-Current Subjective Patient reports she hopes to go home tomorrow. She is up in room independently. Pain Numeric Pain Scale: 0-No Pain Location: No Pain Reported Mental Status Patient Orientation: Normal For Age Attachments: Oxygen Transfers Therapy Code Descriptions/Definitions Functional [place] Measure: 0=Not Assessed/NA 4=Minimal Assistance 1=Total Assistance 5=Supervision or Setup 2=Maximal Assistance 6=Modified [place] 3=Moderate Assistance 7=Complete [place] Therapy Quality Codes: 6 Independent with activity with or without an assistive device 5 Patient requires set up or clean up by helper. Patient completes activity by themselves 4 Supervision or touching assist (CGA). [place] provide cues , steadying assist 3 The helper provides less than half the effort to complete the activity 2 The helper provides more than half the effort to complete the activity 1 Dependent. The helper does all the effort to complete an activity 7 Patient refused to complete or attempt activity 9 The patient did not perform the activity before the current illness or injury 88 Not attempted due to Medical conditions or safety concerns Transfers (B, C, W/C) (FIM): 7 Scootin Rollin Supine to/from Sit: 7 Sit to/from Stand: 7 Gait Training Gait (FIM): 6 Distance (FIM): 3=150 ft Distance: 300' Gait Level of Assist: 6 Gait Assistive Device: FWW slow, steady gait sequence with FWW/PT for O2 tank only Assessment Patient tolerated treatment well and continues to states she desires to return to home tomorrow so she can go shopping. PT to continue with POC. PT Human Resources Designate Goals Nursing Home Goals PT Nursing Home Goals Time Frame: Mar 28, 2019 Transfers (B,C,W/C) (FIM): 7 Gait (FIM): 7 Gait distance (FIM): 3=150 ft Distance: 150' Gait Level of Assist: 7 Gait Assistive Device: None Stairs (FIM): 6 # of Steps: 12 Stairs Level Of Assist: 6 PT Plan Treatment/Plan Treatment Plan: Continue Plan of Care Treatment Plan: Bed Mobility, Education, Functional Activity Jose, Functional Strength, Gait, Safety, Therapeutic Exercise, Transfers Treatment Duration: Mar 28, 2019 Frequency: 6 times per week Estimated Hrs Per Day: .25 hour per day Patient and/or Family Agrees t: Yes Time/GCodes Time In: 1120 Time Out: 1128 Total Billed Treatment Time: 8 Total Billed Treatment 1 visit FA 8 min KARY CANALES PT Mar 19, 2019 12:04
--- NOTE | 2019-03-19 15:23 | Occupational Ther Daily Note ---
OT Current Status-Daily Note Subjective PT SITTING up in bed upon OT arrival. pt agreed to OT TX session with focus on UE EX to increase strength for daily activities. Mental Status/Objective Therapy Code Descriptions/Definitions Functional [place] Measure: 0=Not Assessed/NA 4=Minimal Assistance 1=Total Assistance 5=Supervision or Setup 2=Maximal Assistance 6=Modified [place] 3=Moderate Assistance 7=Complete [place] ADL-Treatment Eating (FIM): 6 Grooming (FIM): 6 Transfers (B, C, W/C) (FIM): 6 pt stated she completed bathing and dressing indep in room with nursing. Other Treatment pt education on UE ROM EX against gravity. pt unable to tolerate weights this date secondary to decrease UE strength but is able to maintain full ROM. pt perform UE ROM all planes 10X2 shoulder, elbow, wrist, and opposition. noted increase timing for shoulder ROM decrease to decrease GMC. pt perform sit to stand MOD I. pt sitting in bed post OT Session. all needs met. Education OT Patient Education: Energy conservation, Exercise program Teaching Recipient: Patient Teaching Methods: Discussion Response to Teaching: Verbalize Understanding OT Short Term Goals Short Term Goals Eating(FIM): 6 Grooming(FIM): 6 1=Demonstrate adherence to instructed precautions during ADL tasks. 2=Patient will verbalize/demonstrate understanding of assistive devices/modifications for ADL. 3=Patient will improve strength/tolerance for activity to enable patient to perform ADL's. OT Residential Goals Fixture Relamper Goals Time Frame: Mar 30, 2019 Eating (FIM): 6 Grooming(FIM): 6 Bathing(FIM): 6 Bathing Location: L Arm, R Arm, L Upper Leg, R Upper Leg, L Lower Leg ( including foot), R Lower Leg (including foot), Chest, Abdomen, Buttocks, Perineal Area Upper Body Dressing(FIM): 6 Lower Body Dressing(FIM): 6 Toileting(FIM): 6 Transfers (B,C,W/C) (FIM): 6 Toilet/Commode Transfer(FIM): 6 Additional Goals: 1-Demonstrate ADL Tasks, 2-Verbalize Understanding, 3- ImproveStrength/Jose 1=Demonstrate adherence to instructed precautions during ADL tasks. 2=Patient will verbalize/demonstrate understanding of assistive devices/modifications for ADL. 3=Patient will improve strength/tolerance for activity to enable patient to perform ADL's. OT Education/Plan Problem List/Assessment Assessment: Decreased Activ Tolerance pt presents with functional limitations affecting areas of ADLS and functional transfers with the above mention deficits. pt would benefit from OT services to increase indep with ADLS and functional transfers. Discharge Recommendations Plan/Recommendations: Continue POC Treatment Plan/Plan of Care Treatment,Training & Education: Yes Patient would benefit from OT for education, treatment and training to promote independence in ADL's, mobility, safety and/or upper extremity function for ADL's. Plan of Care: ADL Retraining, Functional Mobility, Group Exercise/Act as Ind, UE Funct Exercise/Act Treatment Duration: Mar 30, 2019 Frequency: 5 times per week Estimated Hrs Per Day: .25 hour per day Agreement: Yes Rehab Potential: Fair Time/GCodes Start Time: 14:55 Stop Time: 15:10 Billed Treatment Time EX 15 minutes, 1 unit KUMAR SOUZA OT Mar 19, 2019 15:23
--- NOTE | 2019-03-19 15:36 | Pulmonary Progress Note ---
Subjective Time Seen by a Provider: 08:05 Subjective/Events-last exam pt is feeling improved. Sepsis Event Evaluation Height, Weight, BMI Height: 5'6.00" Weight: 212lbs. 3.0oz. 96.515272vy; 33.9 BMI Method:Estimated Exam Exam Vital Signs Date Time Temp Pulse Resp B/P (MAP) Pulse Ox O2 Delivery O2 Flow Rate FiO2 03/19/19 12:00 98.8 56 20 129/60 (83) 94 Nasal Cannula 3.50 03/19/19 10:39 93 Nasal Cannula 2.00 03/19/19 09:00 Nasal Cannula 3.00 03/19/19 08:00 96.9 54 20 135/99 (111) 98 Nasal Cannula 3.50 03/19/19 07:21 95 Nasal Cannula 2.00 03/19/19 03:43 97.1 57 18 152/72 (98) 96 Nasal Cannula 3.50 03/19/19 02:15 51 15 94 40.00 03/19/19 00:50 52 14 95 40.00 03/19/19 00:14 97.0 57 20 149/74 (99) 97 Nasal Cannula 3.50 03/18/19 20:14 Nasal Cannula 3.00 03/18/19 20:09 98.8 57 18 149/67 (94) 96 Nasal Cannula 3.50 03/18/19 19:31 94 Nasal Cannula 3.00 I & O 03/19/19 07:00 Intake Total 2810 ml Output Total 2950 ml Balance -140 ml Height & Weight Height: 5'6.00" Weight: 212lbs. 3.0oz. 96.208781uz; 33.9 BMI Method:Estimated General Appearance: No Apparent Distress, WD/WN, Chronically ill HEENT: PERRL/EOMI, Normal ENT Inspection, Pharynx Normal Neck: Full Range of Motion, Non Tender, Supple Respiratory: Chest Non Tender, Lungs Clear, No Accessory Muscle Use, No Respiratory Distress, Decreased Breath Sounds Cardiovascular: Regular Rate, Rhythm, No Edema, No Gallop, No JVD, No Murmur, Normal Peripheral Pulses Capillary Refill: Less Than 3 Seconds Gastrointestinal: normal bowel sounds, soft Extremity: Normal Capillary Refill, Normal Inspection, No Pedal Edema Neurologic/Psychiatric: Alert, Oriented x3, No Motor/Sensory Deficits, Normal Mood/Affect Skin: Normal Color, Warm/Dry Lymphatic: No Adenopathy Results Lab Laboratory Tests 03/18/19 05:20 03/19/19 04:40 Assessment/Plan Assessment/Plan Acute respiratory failure -improving -Currently on NC. MRSA PNA - Sputum was obtained upon intubation. This is not ventilator associated PNA. -MRSA swab is positive and was done upon ICU admission -vanco stopped on 03/16 -Repeat CXR today and follow as out pt Atelectasis -IS -INcrease activity -Change SVN to easy PAP HX of severe oxygen dependent COPD -Last PFT was 2014 and shows severe emphysema Grade 1 diastolic cardiomyopathy per Echo -Monitor COPDAE -Solumedrol - change to prednisone taper. -SVNs Q 4 UTI -Rocephin -Cultures pending Pt is ok for discharge from pulmonary standpoint. I will f/u with her as an out pt in 2-3 wks. WESLEY ALMAGUER DO Mar 19, 2019 15:36
[2019-03-19 16:00] VITALS: BP 142/74
[2019-03-19 19:35] VITALS: BP 135/85
[2019-03-19] MEDS: APAP 325 MG/10.15 ML LIQ (TYLENOL) UDC GT PRN (20:19)
[2019-03-20 00:01] VITALS: BP 122/77
[2019-03-20] MEDS: methylPREDNISolone 40 MG/ML (Solu-MEDROL) VIAL IV SCH ×2 (00:43→05:41)
[2019-03-20] MEDS: inSUlin ASPART (NovoLOG) 1 UNIT/0.01 ML (CHARGE PER UNIT) SQ SCH ×2 (00:43→05:41)
[2019-03-20] MEDS: NS IV 1000 ML 1,000 ML IV SCH (05:41)
[2019-03-20 05:57] LABS: BASOPHILS % (AUTO) 0 % (0-10); EOSINOPHILS % (AUTO) 0 % (0-10); HEMATOCRIT 54 % (35-52); HEMOGLOBIN 16.3 G/DL (11.5-16.0); LYMPHOCYTES # (AUTO) 0.8 X 10^3 (1.0-4.0); LYMPHOCYTES % (AUTO) 10 % (12-44); MEAN CORPUSCULAR HEMOGLOBIN 27 PG (25-34); MEAN CORPUSCULAR HGB CONC 30 G/DL (32-36); MEAN CORPUSCULAR VOLUME 89 FL (80-99); MEAN PLATELET VOLUME 10.6 FL (7.4-10.4); MONOCYTES # (AUTO) 0.5 X 10^3 (0.0-1.0); MONOCYTES % (AUTO) 6 % (0-12); NEUTROPHILS # (AUTO) 6.5 X 10^3 (1.8-7.8); NEUTROPHILS % (AUTO) 84 % (42-75); PLATELET COUNT 291 10^3/uL (130-400); RED CELL DISTRIBUTION WIDTH 14.9 % (10.0-14.5); WHITE BLOOD COUNT 7.7 10^3/uL (4.3-11.0)
[2019-03-20 06:18] LABS: ALANINE AMINOTRANSFERASE 29 U/L (0-55); ALBUMIN 3.7 GM/DL (3.2-4.5); ALKALINE PHOSPHATASE 79 U/L (40-136); BILIRUBIN,TOTAL 0.4 MG/DL (0.1-1.0); BUN/CREATININE RATIO 18; CALCIUM 10.3 MG/DL (8.5-10.1); CARBON DIOXIDE 37 MMOL/L (21-32); CHLORIDE 92 MMOL/L (98-107); CREATININE SERUM 0.83 MG/DL (0.60-1.30); GFR ESTIMATED > 60; GLUCOSE 162 MG/DL (70-105); POTASSIUM 4.7 MMOL/L (3.6-5.0); SODIUM 140 MMOL/L (135-145)
[2019-03-20] MEDS: MAGNESIUM 1 GM/100 ML IVPB 100 ML IV SCH (06:23)
[2019-03-20] MEDS: KCL 20 MEQ TAB (K-DUR) PO SCH (06:23)
[2019-03-20] MEDS: POTASSIUM CL 10MEQ/50ML IVPB 50 ML IV SCH (06:23)
[2019-03-20 08:00] VITALS: BP 143/83
[2019-03-20] MEDS: RT-BUDESONIDE NEBS 0.5 MG/2ML (PULMICORT) AMP INH SCH (08:11)
--- NOTE | 2019-03-20 08:47 | Occ Therapy Progress Note ---
Therapy Progress Note pt O2 saturations between 84%-89% while wearing O2 NC. NSG is present in room. pt refused OT services this date stated "I'm too tired and not doing it." KUMAR SOUZA OT Mar 20, 2019 08:47
[2019-03-20] MEDS: ASPIRIN 81 MG CHEW (CHILDREN'S ASA) PO SCH (09:11)
[2019-03-20] MEDS: meTOproloL SUCCINATE 50 MG (TOPROL XL) TAB PO SCH (09:11)
[2019-03-20] MEDS: FUROSEMIDE 40 MG/4 ML INJ (LASIX) IVP SCH (09:12)
[2019-03-20] MEDS: ENOXAPARIN 40 MG/0.4 ML (LOVENOX) SYR SC SCH (09:12)
[2019-03-20] MEDS: FAMOTIDINE 20 MG (PEPCID) TABLET PO SCH (09:13)
--- NOTE | 2019-03-20 09:39 | Physical Therapy Progress Note ---
Therapy Progress Note PT in to see patient and she declined stating she is going home. PT discussed with patient energy conservation and FWW use. Patient voices understanding. 1 visit(920) KARY CANALES PT Mar 20, 2019 09:39
[2019-03-20] MEDS ORDERED: ASPI-999 PO (10:49)
[2019-03-20] MEDS ORDERED: PRED10TA22 PO (10:49)
[2019-03-20] MEDS ORDERED: METO-370 PO (10:49)
--- NOTE | 2019-03-20 10:50 | Discharge Summary ---
Diagnosis/Chief Complaint Date of Admission Mar 09, 2019 at 00:40 Date of Discharge Discharge Date: Mar 20, 2019 [facility] Center/[facility] Discharge Diagnosis (1) Acute and chronic respiratory failure with hypoxia Status: Acute (2) Respiratory failure Status: Acute (3) Oxygen dependent Status: Chronic (4) JORGE L treated with BiPAP Status: Chronic (5) Depression Status: Chronic (6) CHF (congestive heart failure) Status: Chronic (7) UTI (urinary tract infection) Status: Acute (8) Sepsis Status: Acute (9) Pneumonia Status: Acute (10) Elevated troponin Status: Acute (11) CO2 narcosis Status: Acute (12) Heavy cigarette smoker Status: Acute (13) Hypothyroidism Status: Chronic (14) Non-insulin treated type 2 diabetes mellitus Status: Chronic (15) Hypercalcemia Status: Acute (16) HTN (hypertension) Status: Chronic (17) COPD exacerbation Status: Acute Discharge Summary Discharge Physical Exam Allergies: Coded Allergies: NKANo Known Allergies (Unverified Allergy, Mild, 05/01/09) Vitals & I&Os Vital Signs Date Time Temp Pulse Resp B/P (MAP) Pulse Ox O2 Delivery O2 Flow Rate FiO2 03/20/19 14:54 03/20/19 09:00 Nasal Cannula 2.00 03/20/19 08:11 94 03/20/19 08:00 97.6 60 20 03/16/19 04:00 55 General Appearance: No Apparent Distress, WD/WN, Obese Respiratory: Chest Non Tender, Lungs Clear, Normal Breath Sounds, No Accessory Muscle Use, No Respiratory Distress Cardiovascular: Regular Rate, Rhythm, No Edema, No Gallop, No JVD, No Murmur, Normal Peripheral Pulses Neurologic/Psychiatric: Alert, Oriented x3, No Motor/Sensory Deficits, Normal Mood/Affect Hospital Course Was the Problem List Reviewed?: Yes Hospital course: Patient had a lengthy hospital course for 12 days after the initial part was in the ICU for respiratory failure requiring intubation and Dr. Silva's pulmonology expertise. She was eventually weaned IV steroids and oxygen supplementation along with nebulizer treatments aggressively treated for severe COPD. Smoking cessation was counseled aggressively which she agreed was planning on ceasing that at discharge. Dr. Silva continue to watch her pulmonary status her insurance denied inpatient rehab transfer PT and OT work with her with good results and patient was able to be discharged home with home health and walker patient was deemed stable for discharge. Overall prognosis poor given the severity of her COPD and she may very well be a hospice candidate. Labs (last 24 hrs) Laboratory Tests 03/19/19 17:53: Glucometer 206H 03/20/19 00:05: Glucometer 279H 03/20/19 05:10: White Blood Count 7.7, Red Blood Count 6.11H, Hemoglobin 16.3H, Hematocrit 54H, Mean Corpuscular Volume 89, Mean Corpuscular Hemoglobin 27, Mean Corpuscular Hemoglobin Concent 30L, Red Cell Distribution Width 14.9H, Platelet Count 291, Mean Platelet Volume 10.6H, Neutrophils (%) (Auto) 84H, Lymphocytes (%) (Auto) 10L, Monocytes (%) (Auto) 6, Eosinophils (%) (Auto) 0, Basophils (%) (Auto) 0, Neutrophils # (Auto) 6.5, Lymphocytes # (Auto) 0.8L, Monocytes # (Auto) 0.5, Eosinophils # (Auto) 0.0, Basophils # (Auto) 0.0, Sodium Level 140, Potassium Level 4.7, Chloride Level 92L, Carbon Dioxide Level 37H, Anion Gap 11, Blood Urea Nitrogen 15, Creatinine 0.83, Estimat Glomerular Filtration Rate > 60, BUN/Creatinine Ratio 18, Glucose Level 162H, Calcium Level 10.3H, Corrected Calcium 10.5H, Total Bilirubin 0.4, Aspartate Amino Transf (AST/SGOT) 19, Alanine Aminotransferase (ALT/SGPT) 29, Alkaline Phosphatase 79, Total Protein 7.0, Albumin 3.7 03/20/19 05:32: Glucometer 167H Microbiology 03/09/19 Blood Culture - Final, Complete No growth 03/09/19 MRSA Screen - Final, Complete 03/09/19 Urine Culture - Final, Complete 3 or more isolates Patient resulted labs reviewed. Pending Labs Discussion & Recommendations Discharge Planning: <30 minutes discharge planning Discharge Home Medications: Active Scripts Active Prednisone 10 Mg Tab.ds.pk 10 Mg PO DAILY Take 6 tabs(60mg)daily,decrease by 1 tab(10MG)daily. Aspirin 81 Mg Tab.chew 81 Mg PO DAILY Metoprolol Succinate 50 Mg Tab.er.24h 50 Mg PO DAILY Reported Glipizide 5 Mg Tablet 5 Mg PO BID Fluticasone-Salmeterol 250-50 (Fluticasone Propion/Salmeterol) 1 Each Blst.w.dev 1 Puff INH BID [place]-3 Fish Oil 1,000 mg Sftg ([place]-3/Dha/Epa/Fish Oil) 1 Each Capsule 2,000 Mg PO DAILY Albuterol Sulfate 2.5 Mg/3 Ml Vial.neb 2.5 Mg NEB Q6H PRN Montelukast Sodium 10 Mg Tablet 10 Mg PO HS Famotidine 20 Mg Tablet 20 Mg PO BID Loratadine 10 Mg Tablet 10 Mg PO DAILY Metformin HCl 500 Mg Tablet 500 Mg PO BID Levothyroxine Sodium 175 Mcg Tablet 175 Mcg PO DAILY Fluticasone Propionate 16 Gm [place].susp 2 [place] NS DAILY Atorvastatin Calcium 10 Mg Tablet 10 Mg PO DAILY Potassium Chloride 10 Meq Tab.er.prt 10 Meq PO DAILY Furosemide 40 Mg Tablet 40 Mg PO DAILY Proair Hfa (Albuterol Sulfate) 1 Puff Puff 2 Puff INH Q6H PRN Spiriva (Tiotropium [place]) 1 Inh Aerp 1 Cap INH DAILY LAST FILLED 11-06-18 Paroxetine HCl 40 Mg Tablet 40 Mg PO 1500 Instructions to patient/family Please see electronic discharge instructions given to patient. Clinical Quality Measures DVT/VTE Risk/Contraindication: Risk Factor Score Per Nursin RFS Level Per Nursing on Admit: 4+=Very High Problem Qualifiers (1) Respiratory failure: Chronicity: acute on chronic Respiratory failure complication: unspecified whether with hypoxia or hypercapnia Qualified Codes: J96.20 - Acute and chronic respiratory failure, unspecified whether with hypoxia or hypercapnia (2) Depression: Depression Type: unspecified Qualified Codes: F32.9 - Major depressive disorder, single episode, unspecified (3) CHF (congestive heart failure): Heart failure type: diastolic Heart failure chronicity: acute on chronic Qualified Codes: I50.33 - Acute on chronic diastolic (congestive) heart failure (4) UTI (urinary tract infection): Urinary tract infection type: acute cystitis Hematuria presence: without hematuria Qualified Codes: N30.00 - Acute cystitis without hematuria (5) Sepsis: Sepsis type: sepsis due to unspecified organism (6) Pneumonia: Laterality: unspecified laterality Lung location: unspecified part of lung (7) Hypothyroidism: Hypothyroidism type: acquired Qualified Codes: E03.9 - Hypothyroidism, unspecified (8) HTN (hypertension): Hypertension type: essential hypertension Qualified Codes: I10 - Essential (primary) hypertension CLAIRE BAZZI DO Mar 20, 2019 10:50
--- NOTE | 2019-03-20 11:27 | D/C HH Face to Face Order ---
D/C Face to Face Orders Reconcile Patient Problems Problems Reviewed?: Yes Instructions for Patient Via [employer], Patient Instructions/FollowUp: [facility] as scheduled Physician to follow Patient: [facility] Discharge Diet for Home: No Restrictions Patient Problems: Severe COPD Smoker Patient Data-Allergies,Ht & Wt Patient Allergies: Coded Allergies: NKANo Known Allergies (Unverified Allergy, Mild, 05/01/09) Height (Feet): 5 Height (Inches): 6.00 Weight (Pounds): 212 Weight (Ounces): 1.0 Home Health Need/Face to Face Date of Face to Face: Mar 20, 2019 Clinical Findings: Generalized weakness and fatigue, Muscle weakness, Shortness of breath, Unsteady gait I have seen Pt [id number]: Yes Discharged To: Home Diagnosis/Conditions: Severe COPD Smoker Patient is Homebound due to: Muscle weakness, Shortness of breath/distress Homebound Status Due to the above stated illness, injury or surgical procedure (medical condition or diagnosis) and associated clinical findings, the patient is homebound because of his/her inability to leave home except with aid of a supportive device and/or person AND leaving the home requires a considerable and taxing effort or is medically contraindicated. Pt req the following assistanc: Walker Home Health Nursing Orders Home Health Services Order: Nursing Services, Luggage Liner-Evaluate & Treat, Physical Therapy-Evaluate & Treat Home Health Infusion Therapy Line Start Date: Mar 08, 2019 Certify Stmt I certify that this patient is under my care and that I, a nurse practitioner or a physician; a contract assistant working with me, had a face to face encounter that - meets the physician face to face encounter requirements with this patient as dated. CLAIRE BAZZI DO Mar 20, 2019 11:27
[2019-03-20] MEDS ORDERED: predniSONE 10 MG TAB PO SCH (12:00)
--- NOTE | 2019-03-20 12:54 | Diagnostic Imaging Report ---
EXAMINATION: PA and lateral chest at 09:31 a.m. INDICATION: Shortness of breath. FINDINGS: The heart size is within normal limits and stable when compared to 03/17/2019. The previous study did note mild right lower lobe pneumonia/atelectasis. On this exam, the right lung base does seem better aerated. There is only a very small amount of residual atelectasis/infiltrate and fluid still present. The right upper lung and left lung are generally clear. The mediastinum is not widened. The alisha remain prominent. The CTA chest exam of 03/09/2019 did note that there was mild hilar adenopathy. The osseous structures are intact. IMPRESSION: The appearance of the chest has improved as the right lung base does seem better aerated. There is still a small amount of residual pneumonia/atelectasis and fluid present, however. Clinical follow-up is recommended. Dictated by: Dictated on workstation # [id number]
--- NOTE | 2019-03-20 13:02 | Cardiology Progress Note ---
Cardiology SOAP Progress Note Subjective: improved shortness of breath Objective: I&O/Vital Signs 03/20/19 03/20/19 03/20/19 02:18 08:00 08:11 Temp 97.6 Pulse 47 60 Resp 30 20 B/P (MAP) 143/83 (103) Pulse Ox 99 92 94 O2 Delivery Nasal Cannula Nasal Cannula O2 Flow Rate 40.00 3.50 2.00 03/20/19 00:00 Intake Total 2180 ml Output Total 1300 ml Balance 880 ml Weight (Pounds): 212 Weight (Ounces): 1.0 Weight (Calculated Kilograms): 96.903689 Constitutional: appears stated age, AAO x 3, well-developed, well-nourished Respiratory: chest is bilaterally symmetric, lungs clear to auscultation Cardiovascular: regular rate-rhythm, S1 and S2, systolic murmur (soft CHANEL at card base) Gastrointestional: No tender; soft; No guarding, No rebound; audible bowel sounds Extremities: other (mild, bilat leg edema); No clubbing, No cyanosis Neurologic/Psychiatric: no motor/sensory deficits, alert, normal mood/affect, oriented x 3, other (moves all limbs equally) Skin: No rash, No ulcerations Results/Procedures: Labs Laboratory Tests 03/19/19 17:53: Glucometer 206H 03/20/19 00:05: Glucometer 279H 03/20/19 05:10: White Blood Count 7.7, Red Blood Count 6.11H, Hemoglobin 16.3H, Hematocrit 54H, Mean Corpuscular Volume 89, Mean Corpuscular Hemoglobin 27, Mean Corpuscular Hemoglobin Concent 30L, Red Cell Distribution Width 14.9H, Platelet Count 291, Mean Platelet Volume 10.6H, Neutrophils (%) (Auto) 84H, Lymphocytes (%) (Auto) 10L, Monocytes (%) (Auto) 6, Eosinophils (%) (Auto) 0, Basophils (%) (Auto) 0, Neutrophils # (Auto) 6.5, Lymphocytes # (Auto) 0.8L, Monocytes # (Auto) 0.5, Eosinophils # (Auto) 0.0, Basophils # (Auto) 0.0, Sodium Level 140, Potassium Level 4.7, Chloride Level 92L, Carbon Dioxide Level 37H, Anion Gap 11, Blood Urea Nitrogen 15, Creatinine 0.83, Estimat Glomerular Filtration Rate > 60, BUN/Creatinine Ratio 18, Glucose Level 162H, Calcium Level 10.3H, Corrected Calcium 10.5H, Total Bilirubin 0.4, Aspartate Amino Transf (AST/SGOT) 19, Alanine Aminotransferase (ALT/SGPT) 29, Alkaline Phosphatase 79, Total Protein 7.0, Albumin 3.7 03/20/19 05:32: Glucometer 167H Microbiology 03/09/19 Blood Culture - Final, Complete No growth 03/09/19 MRSA Screen - Final, Complete 03/09/19 Urine Culture - Final, Complete 3 or more isolates A/P: Assessment/Dx: Acute respiratory failure, COPD exacerbation, acute diastolic congestive heart failure, Diabetes, Active smoking, Hyperlipidemia, Hypercalcemia Plan: Acute respiratory failure, COPD exacerbation. Extubated, improved significantly. COPD exacerbation, acute diastolic congestive heart failure, improved significantly. Echocardiogram done 03/09/2019 shows normal LV function with mild to moderate diastolic dysfunction. Severe pulmonary hypertension. left heart catheterization done on 03/11/2019 showed a significantly elevated LVEDP suggesting diastolic dysfunction. Continue Lasix as needed Positive troponin, likely type II myocardial infarction due to acute respiratory failure. coronary angiography done 03/11/2019 which showed patent epicardial co ronary arteries. Therefore working diagnosis is type II myocardial infarction. Diabetes, Active smoking, Hyperlipidemia, Hypercalcemia ok to dc. can follow with me in clinic if required. Thank you for your consultation. Please call me if you have any questions. Ceasar Elena MD, FACP, FACC, FSCAI, FHRS, CCDS Interventional Cardiology Cardiac Electrophysiology Vascular Medicine and Endovascular Interventions Nick ELENA MD Mar 20, 2019 13:02
--- NOTE | 2019-03-20 13:13 | NUR ---
CM/SS patient is discharging this day. Patient will have a need for HHC and a FWW. Patient preference for HHC is [facility], information sent to them for referral. Preference for DME was [facility], information for FWW sent to them. Daughter here to transport the patient and they will flower buncher or picker the FWW on the way.
[2019-03-20] MEDS ORDERED: RT-ADVAIR HFA 115/21 MCG PER PUFF IH SCH (20:00)
== END 2019-03-20 13:10 | disposition home health service (06) | DRG 207 ==
LOC: EDUNIT# 23:55 → ER 23:59 → ICU 03-09 00:40 → 4TH 03-16 14:30
PROVIDERS: ADMIT Internal Medicine; ATTEND Family Medicine
PROC: 5A1955Z Respiratory Ventilation, Greater than 96 Consecutive Hours (ICD-10-PCS; principal; 2019-03-09)
PROC: 0BH17EZ Insertion of Endotracheal Airway into Trachea, Via Natural or Artificial Opening (ICD-10-PCS; 2019-03-09)
PROC: 4A023N7 Measurement of Cardiac Sampling and Pressure, Left Heart, Percutaneous Approach (ICD-10-PCS; 2019-03-11)
PROC: B2111ZZ Fluoroscopy of Multiple Coronary Arteries using Low Osmolar Contrast (ICD-10-PCS; 2019-03-11)
PROC: B2151ZZ Fluoroscopy of Left Heart using Low Osmolar Contrast (ICD-10-PCS; 2019-03-11)
DX: J96.21 Acute and chronic respiratory failure with hypoxia (principal); J96.22 Acute and chronic respiratory failure with hypercapnia; I21.A1 Myocardial infarction type 2; I11.0 Hypertensive heart disease with heart failure; I50.31 Acute diastolic (congestive) heart failure; J44.1 Chronic obstructive pulmonary disease with (acute) exacerbation; E87.2 Acidosis; I42.9 Cardiomyopathy, unspecified; E66.2 Morbid (severe) obesity with alveolar hypoventilation; J98.11 Atelectasis; I27.20 Pulmonary hypertension, unspecified; E83.52 Hypercalcemia; I25.10 Atherosclerotic heart disease of native coronary artery without angina pectoris; F17.210 Nicotine dependence, cigarettes, uncomplicated; J30.2 Other seasonal allergic rhinitis; E78.00 Pure hypercholesterolemia, unspecified; E03.9 Hypothyroidism, unspecified; E11.9 Type 2 diabetes mellitus without complications; F41.9 Anxiety disorder, unspecified; F32.9 Major depressive disorder, single episode, unspecified; Z68.37 Body mass index [BMI] 37.0-37.9, adult; Z99.81 Dependence on supplemental oxygen; Z91.19 Patient's noncompliance with other medical treatment and regimen; Z79.84 Long term (current) use of oral hypoglycemic drugs; E78.5 Hyperlipidemia, unspecified
CPT/HCPCS: 36415; 36600; 71045; 71046; 71275; 80048; 80053; 80202; 80306; 80320; 81000; 82164; 82306; 82330; 82550; 82553; 82805; 82962; 83605; 83735; 83880; 83970; 84100; 84439; 84443; 84478; 84484; 85007; 85025; 85027; 85610; 85730; 87040; 87070; 87077; 87081; 87088; 87186; 87205; 93005; 93041; 93306; 93458; 94002; 94003; 94640; 94660; 94760; 94799; 96365; 96367; 96375; 99291; 99292

== ENCOUNTER → 2019-06-26 | Outpatient (CLI) | payer MEDICAID ==
[~2019-06-26] MED LIST changes: +ACET-2267 PO; +ACHD5005 PO; +ASPI-999 PO; +CATHETER FLUSH 10 ML SYR IV PRN; +FLUT1DIS26 IH; +HOLD METFORMIN - RECEIVED CONTRAST 20 ML VIAL IV SCH; +IOHEXOL 350 MG/ML 100 ML (OMNIPAQUE 350) VIAL IV ONE; +LINE600T15 PO; +METO50TA7 PO; +NS 100 ML (IVPB) BAG IV ONE; +PRED10TA22 PO
[2019-06-26 14:40] LABS: BUN/CREATININE RATIO 11; CREATININE SERUM 0.81 MG/DL (0.60-1.30); GFR ESTIMATED > 60
--- NOTE | 2019-06-26 15:24 | Diagnostic Imaging Report ---
INDICATION: History of MRSA, pneumonia and COPD, 8 week follow-up check. TECHNIQUE: Multiple contiguous axial images were obtained through the chest after administration of intravenous contrast. Auto Exposure Controls were utilized during the CT exam to meet ALARA standards for radiation dose reduction. Comparison is made to prior study of 03/09/2019. FINDINGS: There are no enlarged mediastinal or hilar nodes. There are no enlarged axillary nodes or chest wall masses. There is no pleural or pericardial fluid. Visualized portions of the upper abdomen were unremarkable. Patient has had previous cholecystectomy. Lung parenchymal windows demonstrate underlying emphysematous changes. There are some areas of linear scarring in the right upper lobe anteriorly as well as in the right middle lobe. There is some scarring in the right lower lobe anteriorly. There is a density in the anterior portion of the right lower lobe measuring about 8 mm. This may represent residual infiltrate or small nodule. This was not present on the previous study of 03/09/2019. There are no abnormalities visualized in the left lung. IMPRESSION: There are some areas of parenchymal scarring in the anterior portion of the right upper lobe as well as in the right middle lobe. There is a questionable scar versus nodule in the right lower lobe anteriorly, measuring about 8 mm. This finding was not seen on the prior study of 03/09/2019. Would consider a follow-up study in 6 months to ensure stability or resolution of this finding. There is no pleural fluid or adenopathy. Dictated by: Dictated on workstation # [id number]
== END ==
LOC: RAD 14:05
PROVIDERS: ATTEND Nurse Practitioner Family
DX: J44.9 Chronic obstructive pulmonary disease, unspecified (principal); J15.212 Pneumonia due to Methicillin resistant Staphylococcus aureus; R91.8 Other nonspecific abnormal finding of lung field
CPT/HCPCS: 36415; 71260; 82565; 84520

== ENCOUNTER 2019-07-17 18:51 | Inpatient (IN) | payer MEDICAID ==
[~2019-07-17] VITALS: Ht 167.7 cm; Wt 98.3 kg
[2019-07-17] VITALS (8 sets, daily range): BP systolic 81–125; BP diastolic 47–71
[~2019-07-17 18:51] MED LIST changes: -ACET-2267 PO; -ACHD5005 PO; -CATHETER FLUSH 10 ML SYR IV PRN; -FLUT1DIS26 IH; -HOLD METFORMIN - RECEIVED CONTRAST 20 ML VIAL IV SCH; -IOHEXOL 350 MG/ML 100 ML (OMNIPAQUE 350) VIAL IV ONE; -LINE600T15 PO; +METO-370 PO; -METO50TA7 PO; -NS 100 ML (IVPB) BAG IV ONE
[2019-07-17] MEDS ORDERED: ACETAMINOPHEN 325 MG TABLET PO STA (19:19)
[2019-07-17] MEDS ORDERED: methylPREDNISolone 125 MG (Solu-MEDROL) VIAL IV STA (19:19)
[2019-07-17] MEDS ORDERED: NS IV 500 ML 500 ML IV ONE (19:22)
[2019-07-17] MEDS ORDERED: RT-ALBUTEROL/IPRATROPIUM 3 ML (DUONEB) VIAL INH ONE (19:30)
--- NOTE | 2019-07-17 19:30 | ED Respiratory ---
General Stated Complaint: SOB,CONGESTED History of Present Illness Date Seen by Provider: Jul 17, 2019 Time Seen by Provider: 19:15 Initial Comments 53-year-old female with known history of COPD presents for congestion, cough, fevers and shortness of air. She chronically uses oxygen at 4 L per nasal cannula at home, and CPAP at night. She reports since yesterday, that her symptoms have been getting worse. She has not received an influenza vaccine this year. She reports green to yellow phlegm. She has been taking Tylenol intermittently for fevers, last dose greater than 4-6 hours ago. Timing/Duration: yesterday Severity: moderate Prior Episodes/Possible Cause: frequent episodes Modifying Factors: Improves With Albuterol Inhaler, Improves With Coughing, Improves With Oxygen, Improves With Rest Associated Symptoms: cough (productive), fever/chills, nasal congestion, shortness of breath, wheezing Allergies and Home Medications Allergies Coded Allergies: NKANo Known Allergies (Unverified Allergy, Mild, 05/01/09) Home Medications Albuterol Sulfate 1 Puff Puff, 2 PUFF INH Q6H PRN for SHORTNESS OF BREATH, (Reported) Albuterol Sulfate 2.5 Mg/3 Ml Vial.neb, 2.5 MG NEB Q6H PRN for SHORTNESS OF BREATH, (Reported) Aspirin 81 Mg Tab.chew, 81 MG PO DAILY Prescribed by: CLAIRE BAZZI on 03/20/19 1049 Atorvastatin Calcium 10 Mg Tablet, 10 MG PO DAILY, (Reported) Famotidine 20 Mg Tablet, 20 MG PO BID, (Reported) Fluticasone Propion/Salmeterol 1 Each Blst.w.dev, 1 PUFF INH BID, (Reported) Fluticasone Propionate 16 Gm [place].susp, 2 SPRAY NS DAILY, (Reported) Furosemide 40 Mg Tablet, 40 MG PO DAILY, (Reported) Glipizide 5 Mg Tablet, 5 MG PO BID, (Reported) Levothyroxine Sodium 175 Mcg Tablet, 175 MCG PO DAILY, (Reported) Loratadine 10 Mg Tablet, 10 MG PO DAILY, (Reported) Metformin HCl 500 Mg Tablet, 500 MG PO BID, (Reported) Metoprolol Succinate 50 Mg Tab.er.24h, 50 MG PO DAILY Prescribed by: CLAIRE BAZZI on 03/20/19 1049 Montelukast Sodium 10 Mg Tablet, 10 MG PO HS, (Reported) [place]-3/Dha/Epa/Fish Oil 1 Each Capsule, 2,000 MG PO DAILY, (Reported) Paroxetine HCl 40 Mg Tablet, 40 MG PO 1500, (Reported) Potassium Chloride 10 Meq Tab.er.prt, 10 MEQ PO DAILY, (Reported) Prednisone 10 Mg Tab.ds.pk, 10 MG PO DAILY Take 6 tabs(60mg)daily,decrease by 1 tab(10MG)daily. Prescribed by: CLAIRE BAZZI on 03/20/19 1049 Tiotropium [place] 1 Inh Aerp, 1 CAP INH DAILY, (Reported) LAST FILLED 11-06-18 Patient Home Medication List Home Medication List Reviewed: Yes Review of Systems Review of Systems Constitutional: see HPI, chills, fever, malaise Respiratory: see HPI, cough, dyspnea on exertion, phlegm, short of breath, wheezing Cardiovascular: no symptoms reported, see HPI Gastrointestinal: no symptoms reported, see HPI Genitourinary: no symptoms reported, see HPI All Other Systems Reviewed Negative Unless Noted: Yes Past Cimeyjt-Jbhltf-Whbjvm Hx Past Med/Social Hx: Reviewed Nursing Past Med/Soc Hx Patient Social History Type Used: Cigarettes 2nd Hand Smoke Exposure: Yes Recent Foreign Travel: No Contact w/Someone Who Travel: No Recent Hopitalizations: No Immunizations Up To Date Tetanus Booster (TDap): Unknown PED Vaccines UTD: No Date of Pneumonia Vaccine: Aug 22, 2018 Seasonal Allergies Seasonal Allergies: Yes Past Medical History Surgeries: Yes Respiratory: Yes (O2 DEPENDENT AT 4L/NC; INTUBATED 10/2018 FOR RESPIRATORY FAILURE ) Pneumonia, COPD Currently Using CPAP: No Currently Using BIPAP: No Cardiac: Yes High Cholesterol, Hypertension Neurological: No 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 Disorders: Denies Sexually Transmitted Disease: No HIV/AIDS: No Genitourinary: No Gastrointestinal: No Musculoskeletal: No Endocrine: Yes Hypothyroidsim, Diabetes, Non-Insulin dep HEENT: No Loss of Vision: Denies Hearing Impairment: Denies Cancer: No Psychosocial: Yes Anxiety, Depression Integumentary: No Blood Disorders: No Adverse Reaction/Blood Tranf: No Family Medical History Cardiovascular disease 19 MOTHER, Onset:Unknown Diabetes mellitus 19 MOTHER, Onset:Unknown Physical Exam Vital Signs - First Documented 07/17/19 19:05 Temp 38.3 Pulse 134 Resp 26 B/P (MAP) 136/77 (96) Pulse Ox 53 O2 Delivery Nasal Cannula O2 Flow Rate 4.00 FiO2 53 Capillary Refill : Height: 5'6.00" Weight: 212lbs. 1.0oz. 96.408835dh; 33.9 BMI Method:Estimated General Appearance: WD/WN, mild distress Eyes: Bilateral Eye Normal Inspection, Bilateral Eye PERRL, Bilateral Eye EOMI HEENT: PERRL/EOMI, normal ENT inspection, TMs normal, pharynx normal Respiratory: chest non-tender, no respiratory distress, decreased breath sounds, wheezing Cardiovascular: normal peripheral pulses, regular rate, rhythm Gastrointestinal: normal bowel sounds, non tender Neurologic/Psychiatric: no motor/sensory deficits, alert, normal mood/affect, oriented x 3 Skin: diaphoresis, pallor Focused Exam Lactate Level 07/17/19 19:19: Lactic Acid Level 2.99*H Lactic Acid Level Laboratory Tests Test 07/17/19 19:19 Lactic Acid Level 2.99 MMOL/L (0.50-2.00) *H Procedures/Interventions Date of ETT Placement: Mar 09, 2019 Time of ETT Placement: 004 Progress/Results/Core Measures Suspected Sepsis SIRS Temperature: Pulse: Respiratory Rate: Laboratory Tests 07/17/19 19:20: White Blood Count 9.7 Blood Pressure / Mean: 07/17/19 19:19: Lactic Acid Level 2.99*H Laboratory Tests 07/17/19 19:20: Creatinine 0.99, Platelet Count 208, Total Bilirubin 0.2 Results/Orders Lab Results Laboratory Tests Test 07/17/19 19:19 07/17/19 19:20 07/17/19 19:31 Range/Units Lactic Acid Level 2.99 *H 0.50-2.00 MMOL/L White Blood Count 9.7 4.3-11.0 10^3/uL Red Blood Count 4.93 4.35-5.85 10^6/uL Hemoglobin 14.0 11.5-16.0 G/DL Hematocrit 45 35-52 % Mean Corpuscular Volume 92 80-99 FL Mean Corpuscular Hemoglobin 28 25-34 PG Mean Corpuscular Hemoglobin Concent 31 L 32-36 G/DL Red Cell Distribution Width 14.6 H 10.0-14.5 % Platelet Count 208 130-400 10^3/uL Mean Platelet Volume 10.1 7.4-10.4 FL Neutrophils (%) (Auto) 81 H 42-75 % Lymphocytes (%) (Auto) 13 12-44 % Monocytes (%) (Auto) 6 0-12 % Eosinophils (%) (Auto) 0 0-10 % Basophils (%) (Auto) 0 0-10 % Neutrophils # (Auto) 7.8 1.8-7.8 X 10^3 Lymphocytes # (Auto) 1.3 1.0-4.0 X 10^3 Monocytes # (Auto) 0.5 0.0-1.0 X 10^3 Eosinophils # (Auto) 0.0 0.0-0.3 10^3/uL Basophils # (Auto) 0.0 0.0-0.1 10^3/uL Sodium Level 138 135-145 MMOL/L Potassium Level 4.1 3.6-5.0 MMOL/L Chloride Level 92 L 98-107 MMOL/L Carbon Dioxide Level 32 21-32 MMOL/L Anion Gap 14 5-14 MMOL/L Blood Urea Nitrogen 6 L 7-18 MG/DL Creatinine 0.99 0.60-1.30 MG/DL Estimat Glomerular Filtration Rate 59 BUN/Creatinine Ratio 6 Glucose Level 233 H 70-105 MG/DL Calcium Level 10.0 8.5-10.1 MG/DL Corrected Calcium 10.2 H 8.5-10.1 MG/DL Total Bilirubin 0.2 0.1-1.0 MG/DL Aspartate Amino Transf (AST/SGOT) 10 5-34 U/L Alanine Aminotransferase (ALT/SGPT) 9 0-55 U/L Alkaline Phosphatase 126 40-136 U/L Troponin I < 0.028 <0.028 NG/ML B-Type Natriuretic Peptide 59.3 <100.0 PG/ML Total Protein 8.2 6.4-8.2 GM/DL Albumin 3.7 3.2-4.5 GM/DL Blood Gas Puncture Site RIGHT RADIAL Blood Gas Patient Temperature 38.3 Arterial Blood pH 7.31 *L 7.37-7.43 Arterial Blood Partial Pressure CO2 79 *H 35-45 MMHG Arterial Blood Partial Pressure O2 77 L 79-93 MMHG Arterial Blood HCO3 38 H 23-27 MMOL/L Arterial Blood Total CO2 40.1 H 21.0-31.0 MMOL/L Arterial Blood Oxygen Saturation 94 94-100 % Arterial Blood Base Excess 11.6 H -2.5-2.5 MMOL/L Da Test YES-POS Blood Gas Ventilator Setting NO Blood Gas Inspired Oxygen 5L Micro Results Microbiology 07/17/19 Influenza Types A,B Antigen (BUSHRA) - Final, Complete My Orders Orders - RAYRAY PHAM Cbc With Automated Diff (07/17/19 19:19) Comprehensive Metabolic Panel (07/17/19 19:19) BNP (07/17/19 19:19) Ekg Tracing (07/17/19:19) O2 (07/17/19 19:19) Ed Iv/Invasive Line Start (07/17/19 19:19) Sputum Culture (07/17/19 19:19) Monitor-Rhythm Ecg Trace Only (07/17/19 19:19) Albuterol/Ipra Inhalation Soln (Duoneb I (07/17/19 19:30) Rt Request For Service (07/17/19 19:19) Methylprednisolone Sod Succ (Solu-Medrol (07/17/19 19:19) Chest Pa/Lat (2 View) (07/17/19 19:19) Svn Small Volume Nebulizer (07/17/19 19:19) Blood Culture (07/17/19 19:19) Influenza A And B Antigens (07/17/19 19:19) Lactic Acid Analyzer (07/17/19 19:19) Acetaminophen Tablet/Caplet (Tylenol T (07/17/19 19:19) Ed Iv/Invasive Line Start (07/17/19 19:22) Ns Iv 500 Ml (Sodium Chloride 0.9%) (07/17/19 19:22) Arterial Blood Gas (07/17/19 19:21) Albuterol Pre-Mix Nebs (Rt) (Proventil (07/17/19 19:54) Ipratropium 0.02% Neb Solution (Atrovent (07/17/19 19:54) Ceftriaxone For Iv Use (Rocephin For I (07/17/19 20:15) Azithromycin Injection (Zithromax Inject (07/17/19 20:15) Troponin I (07/17/19 20:17) Ekg Tracing (07/17/19 20:29) Medications Given in ED Current Medications Medications Dose Ordered Sig/Jeana Route Start Time Stop Time Status Last Admin Dose Admin Albuterol Sulfate 2.5 mg STK-MED ONCE .ROUTE 07/17/19 19:54 07/17/19 19:58 DC 07/17/19 20:00 2.5 MG Albuterol/ Ipratropium 3 ml ONCE ONCE INH 07/17/19 19:30 07/17/19 19:31 DC 07/17/19 19:25 3 ML Azithromycin 500 mg/Sodium Chloride 250 ml @ 250 mls/hr ONCE ONCE IV 07/17/19 20:15 07/17/19 21:14 DC 07/17/19 20:24 250 MLS/HR Ceftriaxone Sodium 1000 mg/ Sterile Water 10 ml @ 200 mls/hr ONCE ONCE IV 07/17/19 20:15 07/17/19 20:17 DC 07/17/19 20:23 200 MLS/HR Ipratropium [place] 0.5 mg STK-MED ONCE IH 07/17/19 19:54 07/17/19 19:59 DC 07/17/19 20:00 0.5 MG Sodium Chloride 500 ml @ 0 mls/hr Q0M ONCE IV 07/17/19 19:22 07/17/19 19:23 DC 07/17/19 19:30 0 MLS/HR Vital Signs/I&O 07/17/19 07/17/19 07/17/19 19:05 19:05 19:34 Temp 38.3 Pulse 134 Resp 26 B/P (MAP) 136/77 (96) Pulse Ox 53 53 90 O2 Delivery Nasal Cannula Nasal Cannula O2 Flow Rate 4.00 4.00 5.00 FiO2 53 Capillary Refill : Progress Note : Time: 19:15 Progress Note Patient seen and evaluated, SaO2 dropped when switching from her O2 to ours, 55- 60%. Quickly improved to 70-88% on O2 per NC at 4-6 L. RT here for Duoneb treatment, then may switch to Vapotherm or bipap pending ABG. Will get Labs, Chest Xray and EKG. patient verbalized that she refuses to be admitted to the hospital. Discussed that this will be a determination based on her labs and chest x-ray, however I do not believe that it is going to be in her best i nterest to discharge her. She has been admitted here multiple times for similar symptoms and has often required intubation for respiratory support. 1945 SaO2 remaining above 88% on nasal cannula 4-6 L of oxygen. Trace improvement in air movement after DuoNeb treatment. Based on ABG, will start BiPAP per RT. 2014 Labs essentially Stable. Influenza negative. 2029 Temp down to 36.6*; patient has remained stable. [address] Piper, agreed to admit patient to ICU. Continue BiPAP and steroids Q6. 1914 Patient continuing to be stable on BiPAP, no requests at this time. SaO2 90-92%. Pulse 95-100. Will be admitted to ICU. ECG Initial ECG Impression Date: Jul 17, 2019 Initial ECG Impression Time: 19:54 Initial ECG Rate: 122 Initial ECG Rhythm: S.Tach Initial ECG Intervals: Normal Initial ECG Intervals SC 148, QRSD 86, QT 308, QTC 439. Soso P 51, QRS 77, T 38. Initial ECG Impression: Normal Initial ECG Comparisson: Unchanged Comment Significant artifact, will repeat after chest x-ray. EKG : EKG Time: 20:30 Rate: 112 Rhythm: S.Tach Intervals: Normal, SC (148), QRS, QT (308) ECG Comparisson: Unchanged Diagnostic Imaging Diagonstic Imaging: Xray Plain Films/CT/US/NM/MRI: chest Comments NAME: SAMPSON CEVALLOS [facility] REC#: [id number] PT STATUS: REG ER : 1965 PHYSICIAN: RAYRAY PHAM ADMIT DATE: 07/17/19/ER Draft Date of Exam:07/17/19 CHEST PA/LAT (2 VIEW) INDICATION: Cough. COMPARISON: 03/20/2019. EXAMINATION: Frontal and lateral views of the chest were obtained. FINDINGS: Infiltrate in the right middle lobe and right infrahilar region. Subtle infiltrates are seen in the left base. Hyperinflation is seen compatible with COPD. The heart is normal. There is no pneumothorax. No large effusion is seen. Osseous structures are stable. IMPRESSION: Bilateral pulmonary infiltrates with associated COPD. Follow-up recommended. Dictated on workstation # [id number] Dict: 07/17/191950 Trans: 07/17/191953 [id number] Interpreted by: BERNSTEIN,KARLA J Electronically signed by: Reviewed: Reviewed by Me Departure Impression Primary Impression: COPD (chronic obstructive pulmonary disease) with acute bronchitis Additional Impressions: Pneumonia Qualified Codes: J18.1 - Lobar pneumonia, unspecified organism Type 2 diabetes mellitus Qualified Codes: E11.65 - Type 2 diabetes mellitus with hyperglycemia Disposition: ADMITTED INPATIENT Condition: Stable Admissions Decision to Admit Reason: Admit from ER (General) Decision to Admit/Date: Jul 17, 2019 Time/Decision to Admit Time: 20:50 Departure-Patient Inst. Referrals: NO,LOCAL PHYSICIAN (PCP/Family) Primary Care Physician Copy Copies To 1: WESLEY ALMAGUER DO; YULIYA CARRINGTON MD, AMY ARNP Jul 17, 2019 19:30
[2019-07-17 19:34] LABS: BASOPHILS % (AUTO) 0 % (0-10); EOSINOPHILS % (AUTO) 0 % (0-10); HEMATOCRIT 45 % (35-52); LYMPHOCYTES # (AUTO) 1.3 X 10^3 (1.0-4.0); LYMPHOCYTES % (AUTO) 13 % (12-44); MEAN CORPUSCULAR HEMOGLOBIN 28 PG (25-34); MEAN CORPUSCULAR HGB CONC 31 G/DL (32-36); MEAN CORPUSCULAR VOLUME 92 FL (80-99); MEAN PLATELET VOLUME 10.1 FL (7.4-10.4); MONOCYTES # (AUTO) 0.5 X 10^3 (0.0-1.0); MONOCYTES % (AUTO) 6 % (0-12); NEUTROPHILS # (AUTO) 7.8 X 10^3 (1.8-7.8); NEUTROPHILS % (AUTO) 81 % (42-75); PLATELET COUNT 208 10^3/uL (130-400); RED CELL DISTRIBUTION WIDTH 14.6 % (10.0-14.5); WHITE BLOOD COUNT 9.7 10^3/uL (4.3-11.0)
[2019-07-17 19:38] LABS: ABG BASE EXCESS 11.6 MMOL/L (-2.5-2.5); ABG OXYGEN SATURATION 94 % (94-100); ABG PO2 77 MMHG (79-93); ABG TCO2 40.1 MMOL/L (21.0-31.0)
[2019-07-17 19:39] LABS: ABG PCO2 79 MMHG (35-45); ABG PH 7.31 (7.37-7.43)
[2019-07-17 19:40] LABS: ALLENS TEST YES-POS; INSPIRED O2 5L; PATIENT TEMP 38.3; VENTILATOR NO
[2019-07-17 19:51] LABS: ALBUMIN 3.7 GM/DL (3.2-4.5); BILIRUBIN,TOTAL 0.2 MG/DL (0.1-1.0); CREATININE SERUM 0.99 MG/DL (0.60-1.30); POTASSIUM 4.1 MMOL/L (3.6-5.0); TOTAL PROTEIN 8.2 GM/DL (6.4-8.2)
[2019-07-17] MEDS ORDERED: RT-IPRATROPIUM (ATROVENT) 0.5MG/2.5ML AMP IH ONE (19:54)
[2019-07-17] MEDS ORDERED: RT-ALBUTEROL SULF 2.5 MG/3 ML PRE-MIX VIAL ONE (19:54)
--- NOTE | 2019-07-17 19:54 | Diagnostic Imaging Report ---
INDICATION: Cough. COMPARISON: 03/20/2019. EXAMINATION: Frontal and lateral views of the chest were obtained. FINDINGS: Infiltrate in the right middle lobe and right infrahilar region. Subtle infiltrates are seen in the left base. Hyperinflation is seen compatible with COPD. The heart is normal. There is no pneumothorax. No large effusion is seen. Osseous structures are stable. IMPRESSION: Bilateral pulmonary infiltrates with associated COPD. Follow-up recommended. Dictated by: Dictated on workstation # [id number]
[2019-07-17] MEDS ORDERED: cefTRIAXone FOR IV USE 1,000 MG in WATER (STERILE) FOR INJECTION 10 ML IV ONE (20:15)
[2019-07-17] MEDS ORDERED: AZITHROMYCIN INJECTION 500 MG in NS (IVPB) 250 ML IV ONE (20:15)
[2019-07-17] MEDS ORDERED: inSUlin ASPART (NovoLOG) 1 UNIT/0.01 ML (CHARGE PER UNIT) SC SCH (21:00)
[2019-07-17 22:10] LABS: BILIRUBIN,URINE NEGATIVE (NEGATIVE); CLARITY,URINE CLEAR; COLOR,URINE YELLOW; GLUCOSE, URINE (UA) NEGATIVE (NEGATIVE); KETONES,URINE NEGATIVE (NEGATIVE); LEUKOCYTE ESTERASE ,URINE NEGATIVE (NEGATIVE); NITRITE,URINE NEGATIVE (NEGATIVE); PROTEIN,URINE 2+ (NEGATIVE)
[2019-07-17 22:30] LABS: HYALINE CASTS, URINE 25-50 /LPF; RBC,URINE 0-2 /HPF
[2019-07-17] MEDS ORDERED: AZITHROMYCIN 500 MG/NS 250 ML IVPB IV ONE ×2 (22:30)
[2019-07-17] MEDS ORDERED: ONDANSETRON 4 MG/2 ML (SDV) Z0FRAN IV PRN (22:30)
[2019-07-17] MEDS ORDERED: cefTRIAXone 1,000 MG/SWFI 10 ML IV PUSH IV SCH ×2 (22:30)
[2019-07-17 22:31] LABS: AMORPHOUS SEDIMENT,UR MOD AMOR URATES /LPF; BACTERIA,URINE TRACE /HPF
[2019-07-17] MEDS ORDERED: RT-ALBUTEROL SULF 2.5 MG/3 ML PRE-MIX VIAL INH PRN (23:15)
[2019-07-17] MEDS ORDERED: inSUlin ASPART (NovoLOG) 1 UNIT/0.01 ML (CHARGE PER UNIT) ONE (23:43)
[2019-07-17] MEDS: inSUlin ASPART (NovoLOG) 1 UNIT/0.01 ML (CHARGE PER UNIT) SC SCH (23:48)
[2019-07-18] VITALS (30 sets, daily range): BP systolic 91–137; BP diastolic 38–87
--- NOTE | 2019-07-18 | NUR ---
THIS RN NOTIFIED EICU OF PT'S SBP IN 80'S TO LOW 100'S. NEW ORDERS RECEIVED AT THIS TIME, SEE ORDER HX.
[2019-07-18] MEDS: methylPREDNISolone 125 MG (Solu-MEDROL) VIAL IVP SCH ×4 (00:28→21:51)
[2019-07-18] MEDS ORDERED: NS IV 1000 ML 1,000 ML IV ONE (00:30)
[2019-07-18] MEDS: NS IV 1000 ML 1,000 ML IV SCH ×4 (01:00→23:43)
[2019-07-18 01:50] LABS: ABG BASE EXCESS 10.2 MMOL/L (-2.5-2.5); ABG OXYGEN SATURATION 95 % (94-100); ABG PO2 71 MMHG (79-93); ABG TCO2 39.5 MMOL/L (21.0-31.0)
[2019-07-18 02:01] LABS: ABG PH 7.29 (7.37-7.43)
[2019-07-18 02:02] LABS: ABG PCO2 78 MMHG (35-45); ALLENS TEST YES-POS; INSPIRED O2 40%; PATIENT TEMP 36.2; VENTILATOR NO
[2019-07-18] MEDS: RT-ALBUTEROL/IPRATROPIUM 3 ML (DUONEB) VIAL IH SCH ×6 (02:13→23:19)
[2019-07-18 03:43] LABS: BASOPHILS % (AUTO) 0 % (0-10); EOSINOPHILS % (AUTO) 0 % (0-10); HEMATOCRIT 43 % (35-52); HEMOGLOBIN 12.9 G/DL (11.5-16.0); LYMPHOCYTES # (AUTO) 0.6 X 10^3 (1.0-4.0); LYMPHOCYTES % (AUTO) 8 % (12-44); MEAN CORPUSCULAR HEMOGLOBIN 28 PG (25-34); MEAN CORPUSCULAR HGB CONC 30 G/DL (32-36); MEAN CORPUSCULAR VOLUME 93 FL (80-99); MEAN PLATELET VOLUME 9.8 FL (7.4-10.4); MONOCYTES # (AUTO) 0.1 X 10^3 (0.0-1.0); MONOCYTES % (AUTO) 1 % (0-12); NEUTROPHILS # (AUTO) 6.7 X 10^3 (1.8-7.8); NEUTROPHILS % (AUTO) 91 % (42-75); PLATELET COUNT 176 10^3/uL (130-400); RED CELL DISTRIBUTION WIDTH 14.9 % (10.0-14.5); WHITE BLOOD COUNT 7.4 10^3/uL (4.3-11.0)
[2019-07-18 04:08] LABS: ALANINE AMINOTRANSFERASE 7 U/L (0-55); ALBUMIN 3.4 GM/DL (3.2-4.5); ALKALINE PHOSPHATASE 106 U/L (40-136); BILIRUBIN,TOTAL 0.2 MG/DL (0.1-1.0); BUN/CREATININE RATIO 9; CALCIUM 9.4 MG/DL (8.5-10.1); CARBON DIOXIDE 29 MMOL/L (21-32); CHLORIDE 97 MMOL/L (98-107); CREATININE SERUM 0.93 MG/DL (0.60-1.30); GFR ESTIMATED > 60; GLUCOSE 229 MG/DL (70-105); MAGNESIUM 1.7 MG/DL (1.6-2.4); PHOSPHORUS 2.9 MG/DL (2.3-4.7); POTASSIUM 4.8 MMOL/L (3.6-5.0); SODIUM 138 MMOL/L (135-145); TOTAL PROTEIN 7.3 GM/DL (6.4-8.2)
[2019-07-18] MEDS: POTASSIUM CL 10MEQ/50ML IVPB 50 ML IV SCH (05:05)
[2019-07-18] MEDS: MAGNESIUM 1 GM/100 ML IVPB 100 ML IV SCH ×3 (05:06→07:15)
[2019-07-18] MEDS: KCL 20 MEQ TAB (K-DUR) PO SCH (05:06)
[2019-07-18 05:49] LABS: ABG BASE EXCESS 10.6 MMOL/L (-2.5-2.5); ABG OXYGEN SATURATION 96 % (94-100); ABG PO2 71 MMHG (79-93); ABG TCO2 39.3 MMOL/L (21.0-31.0)
[2019-07-18 05:51] LABS: ABG PH 7.32 (7.37-7.43)
[2019-07-18 05:52] LABS: ABG PCO2 73 MMHG (35-45); ALLENS TEST YES-POS; VENTILATOR NO
[2019-07-18 05:53] LABS: INSPIRED O2 45%; PATIENT TEMP 36.2
[2019-07-18] MEDS: inSUlin ASPART (NovoLOG) 1 UNIT/0.01 ML (CHARGE PER UNIT) SC SCH ×4 (06:12→21:55)
[2019-07-18] MEDS: ENOXAPARIN 30 MG/0.3 ML (LOVENOX) SYR SC SCH ×2 (06:17→17:10)
--- NOTE | 2019-07-18 06:21 | NUR ---
THIS RN NOTIFIED EICU OF DECREASED URINE OUTPUT, 20ML/HR
[2019-07-18] MEDS ORDERED: FLU QUADRIvalent (5+ YOA) 2019-2020 (AFLURIA) 0.5 ML IM ONE (07:45)
--- NOTE | 2019-07-18 08:33 | Diagnostic Imaging Report ---
INDICATION: Pneumonia. TIME OF EXAM: 01:43 a.m. Correlation is made with prior chest from one day earlier. FINDINGS: Heart size is stable. Bilateral infiltrates do appear improved and partially cleared since yesterday. No new infiltrate is seen. No effusion or pneumothorax is identified. IMPRESSION: Partial clearing of bilateral infiltrates when compared with examination one day earlier. Dictated by: Dictated on workstation # [id number]
--- NOTE | 2019-07-18 10:19 | History & Physical-Hospitalist ---
History of Present Illness HPI/Chief Complaint this is a 53-year-old white female with a history of O2 dependent COPD. The patient has had a history of respiratory failure requiring intubation within the last year. She presents with complaints of increased shortness of breath and cough productive of greenish sputum. The patient did not get a flu shot this year. She is flu negative on this presentation. The patient at the time of my interview this morning says that she feels a little bit better and thinks that she is essentially back at baseline. She continues to have hypercapnic respiratory failure with an acidotic pH and a CO2 of 72. She is currently on BiPAP with a respiratory rate of 28 but says she feels fine Source: patient Exam Limitations: clinical condition (BiPAP) Date Seen 07/18/19 Time Seen by a Provider: 08:45 Attending Physician Maggie Durbin MD PCP [facility] Referring Physician Date of Admission Jul 17, 2019 at 20:50 Home Medications & Allergies Home Medications Reviewed patient Home Medication Reconciliation performed by pharmacy medication reconciliations fire extinguisher technician and/or nursing. Patients Allergies have been reviewed. Allergies Allergies Coded Allergies NKANo Known Allergies (Unverified Allergy, Mild, 05/01/09) Past Wcxlqtj-Elzfqq-Dhxjre Hx Past Med/Social Hx: Reviewed Nursing Past Med/Soc Hx Patient Social History Marrital Status: single Employed/Student: unemployed Alcohol Use: Denies Use Recreational Drug Use: No Smoking Status: Current Everyday Smoker Type Used: Cigarettes 2nd Hand Smoke Exposure: Yes Recent Foreign Travel: No Contact w/other who traveled: No Recent Hopitalizations: No Recent Infectious Disease Expo: No Immunizations Up To Date Tetanus Booster (TDap): Unknown Pediatric: No Date of Pneumonia Vaccine: Aug 22, 2018 Seasonal Allergies Seasonal Allergies: Yes Past Medical History Respiratory: COPD, Emphysema Currently Using CPAP: No Currently Using BIPAP: No Cardiac: High Cholesterol, Hypertension : No Sexually Transmitted Disease: No HIV/AIDS: No 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 Disorders: Denies Endocrine: Hypothyroidsim, Diabetes, Non-Insulin dep Loss of Vision: Denies Hearing Impairment: Denies Psychosocial: Anxiety, Depression History of Blood Disorders: No Adverse Reaction to Blood Gonzalez: No Family History Cardiovascular disease 19 MOTHER, Onset:Unknown Diabetes mellitus 19 MOTHER, Onset:Unknown Diabetes Review of Systems Constitutional: see HPI EENTM: no symptoms reported Respiratory: cough, dyspnea on exertion, short of breath Cardiovascular: no symptoms reported Gastrointestinal: no symptoms reported Genitourinary: no symptoms reported Musculoskeletal: no symptoms reported Skin: no symptoms reported Psychiatric/Neurological: Anxiety Physical Exam Physical Exam Vital Signs Vital Signs - First Documented 07/17/19 19:05 Temp 38.3 Pulse 134 Resp 26 B/P (MAP) 136/77 (96) Pulse Ox 53 O2 Delivery Nasal Cannula O2 Flow Rate 4.00 FiO2 53 Capillary Refill : Less Than 3 Seconds Height, Weight, BMI Height: 5'6.00" Weight: 212lbs. 1.0oz. 96.817231tw; 33.00 BMI Method:Estimated General Appearance: Obese HEENT: TMs Normal Neck: Non Tender, Other (short with increased diameter) Respiratory: Decreased Breath Sounds, Expiration, Inspiration, Wheezing Cardiovascular: Tachycardia Gastrointestinal: Normal Bowel Sounds, Non Tender, Soft Back: Normal Inspection, No CVA Tenderness, No Vertebral Tenderness Extremity: Normal Capillary Refill, Normal Inspection, Non Tender, No Calf Tenderness Neurologic/Psychiatric: Alert, Oriented x3, No Motor/Sensory Deficits, Normal Mood/Affect Skin: Normal Color, Warm/Dry Lymphatic: No Adenopathy Results Results/Procedures Labs Laboratory Tests 07/17/19 19:20 07/18/19 03:24 Patient resulted labs reviewed. 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 Tobaccoism non-curtailed Type II diabetes out of control secondary to steroids Morbid obesity Plan for aggressive pulmonary toilet day number 2 Zithromax and Rocephin and steroids Admission Status: Inpatient Order (span 2 midnights) Reason for Inpatient Admission: patient has multiple comorbidities with slow to resolve exacerbation of COPD Critical Care Critically Ill Patient CC Start/Stop Time : Critical Care Start Date: Jul 18, 2019 Critical Care Start Time: 08:45 Stop date: Jul 18, 2019 Stop Time: 09:00 Clinical Quality Measures DVT/VTE Risk/Contraindication: Risk Factor Score Per Nursin RFS Level Per Nursing on Admit: 4+=Very High MAGGIE DURBIN MD Jul 18, 2019 10:19
[2019-07-18 10:47] LABS: ABG BASE EXCESS 9.4 MMOL/L (-2.5-2.5); ABG OXYGEN SATURATION 97 % (94-100); ABG PO2 82 MMHG (79-93)
[2019-07-18 10:48] LABS: ABG PCO2 73 MMHG (35-45); ABG PH 7.31 (7.37-7.43); ALLENS TEST YES-POS; INSPIRED O2 45%; PATIENT TEMP 36.8; VENTILATOR YES
[2019-07-18] MEDS ORDERED: PARoxetine 20 MG (PAXIL) TAB PO SCH (15:00)
[2019-07-18] MEDS: RT-ADVAIR HFA 115/21 MCG PER PUFF IH SCH (18:15)
[2019-07-18] MEDS ORDERED: AZITHROMYCIN 500 MG/NS 250 ML IVPB IV SCH ×2 (20:30)
[2019-07-18] MEDS: FAMOTIDINE 20 MG (PEPCID) TABLET PO SCH (21:52)
[2019-07-18] MEDS: cefTRIAXone 1,000 MG/SWFI 10 ML IV PUSH IV SCH ×2 (21:52)
[2019-07-18] MEDS: MONTELUKAST 10 MG (SINGULAIR) TAB PO SCH (21:52)
[2019-07-18] MEDS: PARoxetine 20 MG (PAXIL) TAB PO SCH (21:53)
[2019-07-19] VITALS (27 sets, daily range): BP systolic 97–147; BP diastolic 53–90
[2019-07-19] MEDS: methylPREDNISolone 125 MG (Solu-MEDROL) VIAL IVP SCH ×4 (01:16→20:37)
[2019-07-19] MEDS: RT-ALBUTEROL/IPRATROPIUM 3 ML (DUONEB) VIAL IH SCH ×6 (02:30→21:01)
[2019-07-19 03:59] LABS: BASOPHILS % (AUTO) 0 % (0-10); EOSINOPHILS % (AUTO) 0 % (0-10); HEMATOCRIT 41 % (35-52); HEMOGLOBIN 12.4 G/DL (11.5-16.0); LYMPHOCYTES # (AUTO) 0.6 X 10^3 (1.0-4.0); LYMPHOCYTES % (AUTO) 7 % (12-44); MEAN CORPUSCULAR HEMOGLOBIN 28 PG (25-34); MEAN CORPUSCULAR HGB CONC 30 G/DL (32-36); MEAN CORPUSCULAR VOLUME 94 FL (80-99); MEAN PLATELET VOLUME 9.6 FL (7.4-10.4); MONOCYTES # (AUTO) 0.2 X 10^3 (0.0-1.0); MONOCYTES % (AUTO) 3 % (0-12); NEUTROPHILS # (AUTO) 7.4 X 10^3 (1.8-7.8); NEUTROPHILS % (AUTO) 90 % (42-75); PLATELET COUNT 180 10^3/uL (130-400); RED CELL DISTRIBUTION WIDTH 14.3 % (10.0-14.5); WHITE BLOOD COUNT 8.1 10^3/uL (4.3-11.0)
[2019-07-19 04:16] LABS: BUN/CREATININE RATIO 22; CALCIUM 9.9 MG/DL (8.5-10.1); CARBON DIOXIDE 29 MMOL/L (21-32); CHLORIDE 100 MMOL/L (98-107); CREATININE SERUM 0.78 MG/DL (0.60-1.30); GFR ESTIMATED > 60; GLUCOSE 193 MG/DL (70-105); MAGNESIUM 2.3 MG/DL (1.6-2.4); PHOSPHORUS 2.6 MG/DL (2.3-4.7); POTASSIUM 5.5 MMOL/L (3.6-5.0); SODIUM 140 MMOL/L (135-145)
[2019-07-19 04:21] LABS: ABG BASE EXCESS 7.9 MMOL/L (-2.5-2.5); ABG OXYGEN SATURATION 97 % (94-100); ABG PCO2 67 MMHG (35-45); ABG PO2 75 MMHG (79-93); ABG TCO2 36.2 MMOL/L (21.0-31.0)
[2019-07-19 04:49] LABS: ABG PH 7.35 (7.37-7.43); ALLENS TEST YES-POS; INSPIRED O2 40%; VENTILATOR NO
[2019-07-19] MEDS: ENOXAPARIN 30 MG/0.3 ML (LOVENOX) SYR SC SCH ×2 (05:36→17:54)
[2019-07-19] MEDS: inSUlin ASPART (NovoLOG) 1 UNIT/0.01 ML (CHARGE PER UNIT) SC SCH ×4 (05:36→20:51)
[2019-07-19] MEDS: MAGNESIUM 1 GM/100 ML IVPB 100 ML IV SCH (05:37)
[2019-07-19] MEDS: LEVOTHYROXINE 75 MCG (LEVOTHROID) TABLET PO SCH (05:37)
[2019-07-19] MEDS: KCL 20 MEQ TAB (K-DUR) PO SCH (05:37)
[2019-07-19] MEDS: LEVOTHYROXINE 100 MCG (LEVOTHROID) TAB PO SCH (05:37)
[2019-07-19] MEDS: POTASSIUM CL 10MEQ/50ML IVPB 50 ML IV SCH (05:38)
[2019-07-19] MEDS: RT-ADVAIR HFA 115/21 MCG PER PUFF IH SCH ×2 (07:06→21:02)
[2019-07-19] MEDS: ASPIRIN 81 MG CHEW (CHILDREN'S ASA) PO SCH (07:49)
[2019-07-19] MEDS: meTOproloL SUCCINATE 50 MG (TOPROL XL) TAB PO SCH (07:50)
[2019-07-19] MEDS: FAMOTIDINE 20 MG (PEPCID) TABLET PO SCH ×2 (07:50→20:38)
[2019-07-19] MEDS: FUROSEMIDE 40 MG (LASIX) TAB PO SCH (07:50)
[2019-07-19] MEDS: UMECLIDINIUM BROMIDE (INCRUSE ELLIPTA) 7'S IH SCH (08:07)
[2019-07-19] MEDS: FLUTICASONE NASAL SPRAY (FLONASE) 16 GM BTL NS SCH (08:33)
[2019-07-19] MEDS: NS IV 1000 ML 1,000 ML IV SCH (08:33)
--- NOTE | 2019-07-19 09:22 | Diagnostic Imaging Report ---
INDICATION: Pneumonia. Time of exam: 3:47 AM Correlation is made with prior chest one day earlier. Heart size is stable. There is some minimal right perihilar and right basilar atelectasis/infiltrate. Left lung is clear. No significant effusion or pneumothorax is seen. IMPRESSION: Stable chest since one day earlier. Dictated by: Dictated on workstation # [id number]
--- NOTE | 2019-07-19 10:04 | Progress Note - Hospitalist ---
Subjective HPI/CC On Admission Date Seen by Provider: Jul 19, 2019 Time Seen by Provider: 09:45 this is a 53-year-old white female with a history of O2 dependent COPD. The patient has had a history of respiratory failure requiring intubation within the last year. She presents with complaints of increased shortness of breath and c ough productive of greenish sputum. The patient did not get a flu shot this year. She is flu negative on this presentation. The patient at the time of my interview this morning says that she feels a little bit better and thinks that she is essentially back at baseline. She continues to have hypercapnic respiratory failure with an acidotic pH and a CO2 of 72. She is currently on BiPAP with a respiratory rate of 28 but says she feels fine Subjective/Events-last exam Patient is sitting up on 40 percent Vapotherm and says she feels normal and wishes to go home. She continues to have a mild respiratory acidosis secondary to her hypercapnia. She has been somewhat bradycardic and her metoprolol was held this morning. She is on day number 3 Zithromax and Rocephin. Review of Systems Pulmonary: Dyspnea Focused Exam Lactate Level 07/17/19 19:19: Lactic Acid Level 2.99*H 07/17/19 21:34: Lactic Acid Level 1.67 Objective Exam Vital Signs Vital Signs Date Time Temp Pulse Resp B/P (MAP) Pulse Ox O2 Delivery O2 Flow Rate FiO2 07/19/19 09:00 96 35 119/62 (81) 94 Vapotherm 20.00 40.00 07/19/19 08:33 50 07/19/19 07:21 36.0 Capillary Refill : Less Than 3 Seconds General Appearance: No Apparent Distress, WD/WN, Obese HEENT: Normal ENT Inspection, Other (cushingoid) Neck: Limited Range of Motion Respiratory: Decreased Breath Sounds, Expiration, Wheezing Cardiovascular: Regular Rate, Rhythm, No Gallop, No JVD, No Murmur, Normal Peripheral Pulses Gastrointestinal: Normal Bowel Sounds, Non Tender, Soft Rectal: Deferred Back: Normal Inspection, No CVA Tenderness Extremity: Normal Capillary Refill, Non Tender, No Calf Tenderness, No Pedal Edema Neurologic/Psychiatric: Alert, Oriented x3, No Motor/Sensory Deficits, Normal Mood/Affect Skin: Normal Color, Warm/Dry Lymphatic: No Adenopathy Results/Procedures Lab Laboratory Tests 07/19/19 03:36 Patient resulted labs reviewed. 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
[2019-07-19] MEDS: ACETAMINOPHEN 325 MG TABLET PO PRN (11:51)
[2019-07-19] MEDS ORDERED: AZITHROMYCIN 250 MG/NS 250 ML IVPB IV SCH ×2 (20:30)
[2019-07-19] MEDS: PARoxetine 20 MG (PAXIL) TAB PO SCH (20:38)
[2019-07-19] MEDS: MONTELUKAST 10 MG (SINGULAIR) TAB PO SCH (20:38)
[2019-07-19] MEDS: cefTRIAXone 1,000 MG/SWFI 10 ML IV PUSH IV SCH ×2 (20:38)
[2019-07-20] VITALS (9 sets, daily range): BP systolic 115–148; BP diastolic 60–72
--- NOTE | 2019-07-20 01:00 | NUR ---
DR DORIAN COVINGTON WITH TRANSFERING PATIENT TO 4TH FLOOR DUE TO NEED FOR ICU BED. AT APPROX 0120 REPORT GIVEN TO 4TH FLOOR RN AT THE BEDSIDE. VSS. AFEBRILE. TRANSFERRED VIA BED. ACCOMPANIED BY RT AND TWO RNS. ALL QUESTIONS ANSWERED. DENIES NEEDS.
[2019-07-20] MEDS: RT-ALBUTEROL/IPRATROPIUM 3 ML (DUONEB) VIAL IH SCH ×5 (01:14→22:16)
--- NOTE | 2019-07-20 01:25 | NUR ---
PT TRANSFER FROM ICU VIA BED ON BIPAP. REPORT RECEIVED FROM ICU NURSE AT BEDSIDE. THIS RN AGREED FROM PREVIOUS ASSESSMENT. NO NEW NEEDS AT THIS TIME
[2019-07-20] MEDS: methylPREDNISolone 125 MG (Solu-MEDROL) VIAL IVP SCH ×5 (01:54→20:39)
[2019-07-20 05:17] LABS: BASOPHILS % (AUTO) 0 % (0-10); EOSINOPHILS % (AUTO) 0 % (0-10); HEMATOCRIT 42 % (35-52); HEMOGLOBIN 12.8 G/DL (11.5-16.0); LYMPHOCYTES # (AUTO) 0.5 X 10^3 (1.0-4.0); LYMPHOCYTES % (AUTO) 7 % (12-44); MEAN CORPUSCULAR HEMOGLOBIN 29 PG (25-34); MEAN CORPUSCULAR HGB CONC 31 G/DL (32-36); MEAN CORPUSCULAR VOLUME 93 FL (80-99); MEAN PLATELET VOLUME 9.7 FL (7.4-10.4); MONOCYTES # (AUTO) 0.2 X 10^3 (0.0-1.0); MONOCYTES % (AUTO) 2 % (0-12); NEUTROPHILS # (AUTO) 6.4 X 10^3 (1.8-7.8); NEUTROPHILS % (AUTO) 91 % (42-75); PLATELET COUNT 194 10^3/uL (130-400); RED CELL DISTRIBUTION WIDTH 14.1 % (10.0-14.5)
[2019-07-20 05:27] LABS: BUN/CREATININE RATIO 27; CALCIUM 9.7 MG/DL (8.5-10.1); CARBON DIOXIDE 29 MMOL/L (21-32); CHLORIDE 101 MMOL/L (98-107); CREATININE SERUM 0.82 MG/DL (0.60-1.30); GFR ESTIMATED > 60; GLUCOSE 224 MG/DL (70-105); MAGNESIUM 2.1 MG/DL (1.6-2.4); PHOSPHORUS 2.9 MG/DL (2.3-4.7); POTASSIUM 4.8 MMOL/L (3.6-5.0); SODIUM 141 MMOL/L (135-145)
[2019-07-20] MEDS: LEVOTHYROXINE 100 MCG (LEVOTHROID) TAB PO SCH (05:44)
[2019-07-20] MEDS: ENOXAPARIN 30 MG/0.3 ML (LOVENOX) SYR SC SCH ×2 (05:44→17:58)
[2019-07-20] MEDS: LEVOTHYROXINE 75 MCG (LEVOTHROID) TABLET PO SCH (05:44)
[2019-07-20] MEDS: inSUlin ASPART (NovoLOG) 1 UNIT/0.01 ML (CHARGE PER UNIT) SC SCH ×4 (05:44→20:29)
[2019-07-20] MEDS: MAGNESIUM 1 GM/100 ML IVPB 100 ML IV SCH (05:45)
[2019-07-20] MEDS: UMECLIDINIUM BROMIDE (INCRUSE ELLIPTA) 7'S IH SCH (07:05)
[2019-07-20] MEDS: RT-ADVAIR HFA 115/21 MCG PER PUFF IH SCH ×2 (07:05→19:13)
--- NOTE | 2019-07-20 07:34 | Diagnostic Imaging Report ---
INDICATION: Pneumonia Portable upright AP view of the chest is obtained with comparison made to study of one day earlier. Heart size and pulmonary vascularity are within normal limits. There is mild air trapping in the upper lobes. No pneumothorax or consolidation is identified. There may be slight blunting of right costophrenic sulcus which is unchanged. IMPRESSION: No acute abnormality or adverse change is identified. There may be small amount of right pleural thickening. Dictated by: Dictated on workstation # [id number]
[2019-07-20] MEDS ORDERED: GLIP5TAB13 PO (08:26)
[2019-07-20] MEDS ORDERED: ASPI-999 PO (08:29)
[2019-07-20] MEDS ORDERED: ACET-2267 PO (08:36)
[2019-07-20] MEDS ORDERED: FLUT1DIS26 IH (08:38)
--- NOTE | 2019-07-20 08:40 | NUR ---
SPOKE WITH THE PT, WENT THRU THE EXT MED HISTORY AND CALLED [facility] TO COMPLETE THE MED REC. PT WAS ABLE TO TELL ME HOW/WHEN SHE TAKES HER MEDS AND IT MATCHES THE EXT MED HISTORY. JORGE ALBERTO: PT FILLED AT [facility] ON 06-04-2019 #1 (THIS WAS NOT LISTED ON THE EXT MED HIS) OTC MEDS: ASPIRIN TYLENOL FISH OIL
[2019-07-20] MEDS: FAMOTIDINE 20 MG (PEPCID) TABLET PO SCH ×2 (08:47→20:09)
[2019-07-20] MEDS: ASPIRIN 81 MG CHEW (CHILDREN'S ASA) PO SCH (08:47)
[2019-07-20] MEDS: FUROSEMIDE 40 MG (LASIX) TAB PO SCH (08:47)
[2019-07-20] MEDS: meTOproloL SUCCINATE 50 MG (TOPROL XL) TAB PO SCH (08:47)
[2019-07-20] MEDS: FLUTICASONE NASAL SPRAY (FLONASE) 16 GM BTL NS SCH (08:47)
--- NOTE | 2019-07-20 10:44 | Progress Note - Hospitalist ---
Subjective HPI/CC On Admission Date Seen by Provider: Jul 20, 2019 Time Seen by Provider: 09:45 this is a 53-year-old white female with a history of O2 dependent COPD. The patient has had a history of respiratory failure requiring intubation within the last year. She presents with complaints of increased shortness of breath and c ough productive of greenish sputum. The patient did not get a flu shot this year. She is flu negative on this presentation. The patient at the time of my interview this morning says that she feels a little bit better and thinks that she is essentially back at baseline. She continues to have hypercapnic respiratory failure with an acidotic pH and a CO2 of 72. She is currently on BiPAP with a respiratory rate of 28 but says she feels fine Subjective/Events-last exam Pt wants to go home but still on Vapotherm. Vapotherm was discontinued at one point but she dropped down to the 80%. Pt needs a shower today. Denies any significant pain. Reviewed all labs and images. Will try to wean off Vapotherm slowly to prevent rebound. Review of Systems Pulmonary: Dyspnea Focused Exam Lactate Level 07/17/19 21:34: Lactic Acid Level 1.67 Objective Exam Vital Signs Vital Signs Date Time Temp Pulse Resp B/P (MAP) Pulse Ox O2 Delivery O2 Flow Rate FiO2 07/20/19 19:15 Vapotherm 07/20/19 19:10 88 20.00 50 07/20/19 15:37 36.7 75 22 129/62 (84) Capillary Refill : Less Than 3 SecondsLess Than 3 Seconds General Appearance: No Apparent Distress, WD/WN Respiratory: Chest Non Tender, No Accessory Muscle Use, No Respiratory Distress, Decreased Breath Sounds, Wheezing Neurologic/Psychiatric: Alert, Oriented x3, No Motor/Sensory Deficits, Normal Mood/Affect Results/Procedures Lab Laboratory Tests 07/20/19 04:58 Patient resulted labs reviewed. Imaging: Reviewed Imaging Report Assessment/Plan Assessment and Plan Assess & Plan/Chief Complaint Assessment: AECOPD Hypercapnia PNA Wheezing Plan: Vapotherm Wean O2 Nebs Critical Care Critically Ill Patient Diagnosis/Problems Diagnosis/Problems (1) Pneumonia Status: Acute Qualifiers: Pneumonia type: due to unspecified organism Laterality: bilateral Lung lo cation: lower lobe of lung Qualified Codes: J18.1 - Lobar pneumonia, unspecified organism (2) Type 2 diabetes mellitus Status: Acute Qualifiers: Diabetes mellitus jail insulin use: without manager terminal use Diabetes mellitus complication status: with hyperglycemia Qualified Codes: E11.65 - Type 2 diabetes mellitus with hyperglycemia (3) Acute on chronic respiratory failure with hypoxia and hypercapnia Status: Acute (4) Heavy cigarette smoker Status: Acute (5) CO2 narcosis Status: Acute (6) CHF (congestive heart failure) Status: Acute (7) HTN (hypertension) Status: Chronic (8) JORGE L treated with BiPAP Status: Chronic Clinical Quality Measures DVT/VTE Risk/Contraindication: Risk Factor Score Per Nursin RFS Level Per Nursing on Admit: 4+=Very High CLAIRE BAZZI DO Jul 20, 2019 10:44
--- NOTE | 2019-07-20 15:05 | NUR ---
Initial visit: The pt shared she was admitted to ICU late last week and feels encouraged to be feeling better. She said she wants to go home, and described that feeling better tests her patience more because she feels she should be able to do things she is not ready to do.
[2019-07-20] MEDS ORDERED: WATER (STERILE) FOR INJECTION 10 ML ONE (19:54)
[2019-07-20] MEDS ORDERED: cefTRIAXone 1,000 MG IV (ROCEPHIN) VIAL ONE (19:54)
[2019-07-20] MEDS: cefTRIAXone 1,000 MG/SWFI 10 ML IV PUSH IV SCH ×2 (20:08)
[2019-07-20] MEDS: PARoxetine 20 MG (PAXIL) TAB PO SCH (20:09)
[2019-07-20] MEDS: AZITHROMYCIN 250 MG TAB (ZITHROMAX) PO SCH (20:09)
[2019-07-20] MEDS: MONTELUKAST 10 MG (SINGULAIR) TAB PO SCH (20:09)
[2019-07-20] MEDS ORDERED: inSUlin (REGULAR) HUMAN 1 UNIT/0.01 ML (CHARGE PER UNIT) SC ONE (20:30)
[2019-07-21] VITALS: BP 137/84
[2019-07-21] MEDS: RT-ALBUTEROL/IPRATROPIUM 3 ML (DUONEB) VIAL IH SCH ×7 (00:43→21:17)
[2019-07-21 04:00] VITALS: BP 135/74
[2019-07-21 05:45] LABS: BASOPHILS % (AUTO) 0 % (0-10); EOSINOPHILS % (AUTO) 0 % (0-10); HEMATOCRIT 41 % (35-52); HEMOGLOBIN 12.3 G/DL (11.5-16.0); LYMPHOCYTES # (AUTO) 0.8 X 10^3 (1.0-4.0); LYMPHOCYTES % (AUTO) 14 % (12-44); MEAN CORPUSCULAR HEMOGLOBIN 28 PG (25-34); MEAN CORPUSCULAR HGB CONC 30 G/DL (32-36); MEAN CORPUSCULAR VOLUME 92 FL (80-99); MEAN PLATELET VOLUME 9.3 FL (7.4-10.4); MONOCYTES # (AUTO) 0.4 X 10^3 (0.0-1.0); MONOCYTES % (AUTO) 8 % (0-12); NEUTROPHILS # (AUTO) 4.3 X 10^3 (1.8-7.8); NEUTROPHILS % (AUTO) 78 % (42-75); PLATELET COUNT 196 10^3/uL (130-400); RED CELL DISTRIBUTION WIDTH 14.2 % (10.0-14.5); WHITE BLOOD COUNT 5.5 10^3/uL (4.3-11.0)
[2019-07-21 05:57] LABS: BUN/CREATININE RATIO 28; CALCIUM 9.4 MG/DL (8.5-10.1); CARBON DIOXIDE 35 MMOL/L (21-32); CHLORIDE 95 MMOL/L (98-107); CREATININE SERUM 0.78 MG/DL (0.60-1.30); GFR ESTIMATED > 60; GLUCOSE 184 MG/DL (70-105); PHOSPHORUS 3.1 MG/DL (2.3-4.7); POTASSIUM 4.4 MMOL/L (3.6-5.0); SODIUM 141 MMOL/L (135-145)
[2019-07-21] MEDS: inSUlin ASPART (NovoLOG) 1 UNIT/0.01 ML (CHARGE PER UNIT) SC SCH ×4 (06:21→20:23)
[2019-07-21] MEDS: MAGNESIUM 1 GM/100 ML IVPB 100 ML IV SCH (06:23)
[2019-07-21] MEDS: LEVOTHYROXINE 100 MCG (LEVOTHROID) TAB PO SCH (06:24)
[2019-07-21] MEDS: ENOXAPARIN 30 MG/0.3 ML (LOVENOX) SYR SC SCH ×2 (06:24→17:07)
[2019-07-21] MEDS: LEVOTHYROXINE 75 MCG (LEVOTHROID) TABLET PO SCH (06:25)
[2019-07-21 08:00] VITALS: BP 133/62
[2019-07-21] MEDS: RT-ADVAIR HFA 115/21 MCG PER PUFF IH SCH ×2 (08:07→18:14)
[2019-07-21] MEDS: UMECLIDINIUM BROMIDE (INCRUSE ELLIPTA) 7'S IH SCH (08:07)
[2019-07-21] MEDS: FAMOTIDINE 20 MG (PEPCID) TABLET PO SCH ×2 (08:45→20:23)
[2019-07-21] MEDS: ASPIRIN 81 MG CHEW (CHILDREN'S ASA) PO SCH (08:45)
[2019-07-21] MEDS: meTOproloL SUCCINATE 50 MG (TOPROL XL) TAB PO SCH (08:45)
[2019-07-21] MEDS: FUROSEMIDE 40 MG (LASIX) TAB PO SCH (08:45)
[2019-07-21] MEDS: methylPREDNISolone 125 MG (Solu-MEDROL) VIAL IVP SCH ×2 (08:45→20:22)
[2019-07-21] MEDS: FLUTICASONE NASAL SPRAY (FLONASE) 16 GM BTL NS SCH (08:46)
--- NOTE | 2019-07-21 08:58 | Diagnostic Imaging Report ---
INDICATION: Pneumonia, COPD, diabetes. COMPARISON: 07/20/2019. FINDINGS: The heart size is at the upper limits of normal. There is patchy right basilar atelectasis and/or pneumonitis. There is no pleural effusion or pneumothorax. The mediastinum is unremarkable. IMPRESSION: Patchy right basilar infiltrates, atelectasis, and/or pneumonitis. Dictated by: Dictated on workstation # [id number]
--- NOTE | 2019-07-21 11:01 | Progress Note - Hospitalist ---
Subjective HPI/CC On Admission Date Seen by Provider: Jul 21, 2019 Time Seen by Provider: 09:15 this is a 53-year-old white female with a history of O2 dependent COPD. The patient has had a history of respiratory failure requiring intubation within the last year. She presents with complaints of increased shortness of breath and c ough productive of greenish sputum. The patient did not get a flu shot this year. She is flu negative on this presentation. The patient at the time of my interview this morning says that she feels a little bit better and thinks that she is essentially back at baseline. She continues to have hypercapnic respiratory failure with an acidotic pH and a CO2 of 72. She is currently on BiPAP with a respiratory rate of 28 but says she feels fine Subjective/Events-last exam Patient doing better and beginning to wean off Vapotherm Patient was to go home Updated patient on the plan that she can't go home on Vapotherm Usually wears 3 L of oxygen at home No pain is reported Review of Systems Pulmonary: Dyspnea Objective Exam Vital Signs Vital Signs Date Time Temp Pulse Resp B/P (MAP) Pulse Ox O2 Delivery O2 Flow Rate FiO2 07/21/19 11:51 94 Nasal Cannula 6.00 07/21/19 08:10 50 07/21/19 08:00 36.6 68 12 133/62 (85) Capillary Refill : Less Than 3 SecondsLess Than 3 Seconds General Appearance: No Apparent Distress, WD/WN, Chronically ill Respiratory: No Accessory Muscle Use, No Respiratory Distress, Decreased Breath Sounds Cardiovascular: Regular Rate, Rhythm, No Edema, No Gallop, No JVD, No Murmur, Normal Peripheral Pulses Neurologic/Psychiatric: Alert, Oriented x3, No Motor/Sensory Deficits, Normal Mood/Affect Results/Procedures Lab Laboratory Tests 07/21/19 05:14 07/21/19 05:29 Patient resulted labs reviewed. Imaging: Reviewed Imaging Report Assessment/Plan Assessment and Plan Assess & Plan/Chief Complaint Assessment: AECOPD Hypercapnia PNA Wheezing Plan: Vapotherm wean Wean O2 Nebs Critical Care Critically Ill Patient Diagnosis/Problems Diagnosis/Problems (1) Pneumonia Status: Acute Qualifiers: Pneumonia type: due to unspecified organism Laterality: bilateral Lung location: lower lobe of lung Qualified Codes: J18.1 - Lobar pneumonia, unspecified organism (2) Type 2 diabetes mellitus Status: Acute Qualifiers: Diabetes mellitus terminal press operator insulin use: without jail use Diabetes mellitus complication status: with hyperglycemia Qualified Codes: E11.65 - Type 2 diabetes mellitus with hyperglycemia (3) Acute on chronic respiratory failure with hypoxia and hypercapnia Status: Acute (4) Heavy cigarette smoker Status: Acute (5) CO2 narcosis Status: Acute (6) CHF (congestive heart failure) Status: Acute (7) HTN (hypertension) Status: Chronic (8) JORGE L treated with BiPAP Status: Chronic Clinical Quality Measures DVT/VTE Risk/Contraindication: Risk Factor Score Per Nursin RFS Level Per Nursing on Admit: 4+=Very High CLAIRE BAZZI DO Jul 21, 2019 11:00
[2019-07-21 12:00] VITALS: BP 142/67
[2019-07-21 16:00] VITALS: BP 145/70
[2019-07-21] MEDS: ACETAMINOPHEN 325 MG TABLET PO PRN (17:07)
[2019-07-21 20:00] VITALS: BP 138/66
[2019-07-21] MEDS ORDERED: WATER (STERILE) FOR INJECTION 10 ML ONE ×2 (20:07→20:15)
[2019-07-21] MEDS ORDERED: CEFEPIME 1 GM (MAXIPIME) VIAL ONE (20:07)
[2019-07-21] MEDS ORDERED: cefTRIAXone 1,000 MG IV (ROCEPHIN) VIAL ONE (20:15)
[2019-07-21] MEDS: cefTRIAXone 1,000 MG/SWFI 10 ML IV PUSH IV SCH ×2 (20:21)
[2019-07-21] MEDS: PARoxetine 20 MG (PAXIL) TAB PO SCH (20:23)
[2019-07-21] MEDS: AZITHROMYCIN 250 MG TAB (ZITHROMAX) PO SCH (20:23)
[2019-07-21] MEDS: MONTELUKAST 10 MG (SINGULAIR) TAB PO SCH (20:23)
[2019-07-22] VITALS: BP 143/72
[2019-07-22] MEDS: RT-ALBUTEROL/IPRATROPIUM 3 ML (DUONEB) VIAL IH SCH ×5 (02:08→19:17)
[2019-07-22 04:45] VITALS: BP 144/84
[2019-07-22 05:12] LABS: BASOPHILS % (AUTO) 0 % (0-10); EOSINOPHILS % (AUTO) 0 % (0-10); HEMATOCRIT 42 % (35-52); HEMOGLOBIN 12.9 G/DL (11.5-16.0); LYMPHOCYTES # (AUTO) 0.8 X 10^3 (1.0-4.0); LYMPHOCYTES % (AUTO) 13 % (12-44); MEAN CORPUSCULAR HEMOGLOBIN 28 PG (25-34); MEAN CORPUSCULAR HGB CONC 31 G/DL (32-36); MEAN CORPUSCULAR VOLUME 92 FL (80-99); MEAN PLATELET VOLUME 9.5 FL (7.4-10.4); MONOCYTES # (AUTO) 0.3 X 10^3 (0.0-1.0); MONOCYTES % (AUTO) 6 % (0-12); NEUTROPHILS # (AUTO) 4.7 X 10^3 (1.8-7.8); NEUTROPHILS % (AUTO) 81 % (42-75); PLATELET COUNT 207 10^3/uL (130-400); RED CELL DISTRIBUTION WIDTH 13.8 % (10.0-14.5); WHITE BLOOD COUNT 5.7 10^3/uL (4.3-11.0)
[2019-07-22 05:27] LABS: BUN/CREATININE RATIO 24; CALCIUM 9.5 MG/DL (8.5-10.1); CARBON DIOXIDE 39 MMOL/L (21-32); CHLORIDE 91 MMOL/L (98-107); GFR ESTIMATED > 60; GLUCOSE 178 MG/DL (70-105); MAGNESIUM 2.1 MG/DL (1.6-2.4); PHOSPHORUS 3.6 MG/DL (2.3-4.7); SODIUM 140 MMOL/L (135-145)
[2019-07-22] MEDS: inSUlin ASPART (NovoLOG) 1 UNIT/0.01 ML (CHARGE PER UNIT) SC SCH ×4 (05:44→20:57)
[2019-07-22] MEDS: MAGNESIUM 1 GM/100 ML IVPB 100 ML IV SCH (05:45)
[2019-07-22] MEDS: LEVOTHYROXINE 100 MCG (LEVOTHROID) TAB PO SCH (06:04)
[2019-07-22] MEDS: ENOXAPARIN 30 MG/0.3 ML (LOVENOX) SYR SC SCH ×2 (06:04→17:29)
[2019-07-22] MEDS: LEVOTHYROXINE 75 MCG (LEVOTHROID) TABLET PO SCH (06:05)
[2019-07-22] MEDS: RT-ADVAIR HFA 115/21 MCG PER PUFF IH SCH ×2 (07:28→19:17)
[2019-07-22] MEDS: UMECLIDINIUM BROMIDE (INCRUSE ELLIPTA) 7'S IH SCH (07:32)
[2019-07-22 08:00] VITALS: BP 129/78
[2019-07-22] MEDS: ASPIRIN 81 MG CHEW (CHILDREN'S ASA) PO SCH (08:23)
[2019-07-22] MEDS: FUROSEMIDE 40 MG (LASIX) TAB PO SCH (08:23)
[2019-07-22] MEDS: meTOproloL SUCCINATE 50 MG (TOPROL XL) TAB PO SCH (08:23)
[2019-07-22] MEDS: FAMOTIDINE 20 MG (PEPCID) TABLET PO SCH ×2 (08:23→20:56)
[2019-07-22] MEDS: methylPREDNISolone 125 MG (Solu-MEDROL) VIAL IVP SCH ×2 (08:24→20:54)
[2019-07-22] MEDS: FLUTICASONE NASAL SPRAY (FLONASE) 16 GM BTL NS SCH (08:24)
--- NOTE | 2019-07-22 08:55 | Diagnostic Imaging Report ---
EXAMINATION: Chest radiograph, portable AP view. DATE: 07/22/2019 4:21 AM hours. INDICATION: 53-year-old female, shortness of breath. History of pneumonia. COMPARISON: July 21, 2019. FINDINGS: Stable overall appearance of the cardiomediastinal silhouette. There is no identified pneumothorax. There is no large pleural effusion. There is streaky right perihilar opacities which are unchanged. There is no new focal airspace consolidation. IMPRESSION: 1. Unchanged streaky right perihilar opacities which may relate to atelectasis and/or infiltrate. 2. No interval focal airspace consolidation. Dictated by: Dictated on workstation # [id number]
[2019-07-22 12:00] VITALS: BP 147/68
--- NOTE | 2019-07-22 12:24 | Progress Note - Hospitalist ---
Subjective HPI/CC On Admission Date Seen by Provider: Jul 22, 2019 Time Seen by Provider: 10:00 this is a 53-year-old white female with a history of O2 dependent COPD. The patient has had a history of respiratory failure requiring intubation within the last year. She presents with complaints of increased shortness of breath and co ugh productive of greenish sputum. The patient did not get a flu shot this year. She is flu negative on this presentation. The patient at the time of my interview this morning says that she feels a little bit better and thinks that she is essentially back at baseline. She continues to have hypercapnic respiratory failure with an acidotic pH and a CO2 of 72. 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 Systems Pulmonary: Dyspnea Objective Exam Vital Signs Vital Signs Date Time Temp Pulse Resp B/P (MAP) Pulse Ox O2 Delivery O2 Flow Rate FiO2 07/22/19 15:53 36.4 60 20 119/59 (79) 94 High Flow N/C 6.00 07/21/19 08:10 50 Capillary Refill : Less Than 3 SecondsLess Than 3 Seconds General Appearance: No Apparent Distress, WD/WN, Chronically ill, Obese Respiratory: Chest Non Tender, Lungs Clear, No Accessory Muscle Use, No Respiratory Distress, Decreased Breath Sounds Cardiovascular: Regular Rate, Rhythm, No Edema, No Gallop, No JVD, No Murmur, Normal Peripheral Pulses Neurologic/Psychiatric: Alert, Oriented x3, No Motor/Sensory Deficits, Normal Mood/Affect Results/Procedures Lab Laboratory Tests 07/22/19 04:44 Patient resulted labs reviewed. Imaging: Reviewed Imaging Report Assessment/Plan Assessment and Plan Assess & Plan/Chief Complaint Assessment: AECOPD Hypercapnia PNA Wheezing Plan: Vapotherm weaned Wean O2 Nebs DC home tomorrow Critical Care Critically Ill Patient Diagnosis/Problems Diagnosis/Problems (1) Pneumonia Status: Acute Qualifiers: Pneumonia type: due to unspecified organism Laterality: bilateral Lung location: lower lobe of lung Qualified Codes: J18.1 - Lobar pneumonia, unspecified organism (2) Type 2 diabetes mellitus Status: Acute Qualifiers: Diabetes mellitus long-term insulin use: without long-term use Diabetes mellitus complication status: with hyperglycemia Qualified Codes: E11.65 - Type 2 diabetes mellitus with hyperglycemia (3) Acute on chronic respiratory failure with hypoxia and hypercapnia Status: Acute (4) Heavy cigarette smoker Status: Acute (5) CO2 narcosis Status: Acute (6) CHF (congestive heart failure) Status: Acute (7) HTN (hypertension) Status: Chronic (8) JORGE L treated with BiPAP Status: Chronic Clinical Quality Measures DVT/VTE Risk/Contraindication: Risk Factor Score Per Nursin RFS Level Per Nursing on Admit: 4+=Very High CLAIRE BAZZI DO Jul 22, 2019 12:24
[2019-07-22 15:53] VITALS: BP 119/59
[2019-07-22 19:59] VITALS: BP 123/61
[2019-07-22] MEDS ORDERED: WATER (STERILE) FOR INJECTION 10 ML ONE (20:40)
[2019-07-22] MEDS ORDERED: cefTRIAXone 1,000 MG IV (ROCEPHIN) VIAL ONE (20:40)
[2019-07-22] MEDS: cefTRIAXone 1,000 MG/SWFI 10 ML IV PUSH IV SCH ×2 (20:54)
[2019-07-22] MEDS: AZITHROMYCIN 250 MG TAB (ZITHROMAX) PO SCH (20:56)
[2019-07-22] MEDS: PARoxetine 20 MG (PAXIL) TAB PO SCH (20:56)
[2019-07-22] MEDS: MONTELUKAST 10 MG (SINGULAIR) TAB PO SCH (20:56)
[2019-07-23 00:12] VITALS: BP 131/81
[2019-07-23] MEDS: RT-ALBUTEROL/IPRATROPIUM 3 ML (DUONEB) VIAL IH SCH ×4 (00:48→10:18)
[2019-07-23 06:02] LABS: BASOPHILS % (AUTO) 0 % (0-10); EOSINOPHILS % (AUTO) 0 % (0-10); HEMATOCRIT 45 % (35-52); HEMOGLOBIN 13.8 G/DL (11.5-16.0); LYMPHOCYTES # (AUTO) 0.9 X 10^3 (1.0-4.0); LYMPHOCYTES % (AUTO) 10 % (12-44); MEAN CORPUSCULAR HEMOGLOBIN 28 PG (25-34); MEAN CORPUSCULAR HGB CONC 31 G/DL (32-36); MEAN CORPUSCULAR VOLUME 91 FL (80-99); MEAN PLATELET VOLUME 9.2 FL (7.4-10.4); MONOCYTES # (AUTO) 0.4 X 10^3 (0.0-1.0); MONOCYTES % (AUTO) 4 % (0-12); NEUTROPHILS # (AUTO) 7.2 X 10^3 (1.8-7.8); NEUTROPHILS % (AUTO) 85 % (42-75); PLATELET COUNT 194 10^3/uL (130-400); RED CELL DISTRIBUTION WIDTH 14.2 % (10.0-14.5); WHITE BLOOD COUNT 8.4 10^3/uL (4.3-11.0)
[2019-07-23 06:30] LABS: BUN/CREATININE RATIO 29; CARBON DIOXIDE 36 MMOL/L (21-32); CHLORIDE 90 MMOL/L (98-107); CREATININE SERUM 0.83 MG/DL (0.60-1.30); GFR ESTIMATED > 60; GLUCOSE 229 MG/DL (70-105); MAGNESIUM 2.3 MG/DL (1.6-2.4); PHOSPHORUS 3.6 MG/DL (2.3-4.7); POTASSIUM 4.9 MMOL/L (3.6-5.0); SODIUM 138 MMOL/L (135-145)
[2019-07-23] MEDS: inSUlin ASPART (NovoLOG) 1 UNIT/0.01 ML (CHARGE PER UNIT) SC SCH ×2 (06:31→11:36)
[2019-07-23] MEDS: LEVOTHYROXINE 75 MCG (LEVOTHROID) TABLET PO SCH (06:31)
[2019-07-23] MEDS: LEVOTHYROXINE 100 MCG (LEVOTHROID) TAB PO SCH (06:31)
[2019-07-23] MEDS: ENOXAPARIN 30 MG/0.3 ML (LOVENOX) SYR SC SCH (06:31)
[2019-07-23] MEDS: RT-ADVAIR HFA 115/21 MCG PER PUFF IH SCH (06:44)
[2019-07-23] MEDS: UMECLIDINIUM BROMIDE (INCRUSE ELLIPTA) 7'S IH SCH (06:45)
[2019-07-23] MEDS: MAGNESIUM 1 GM/100 ML IVPB 100 ML IV SCH (07:02)
--- NOTE | 2019-07-23 07:36 | Diagnostic Imaging Report ---
INDICATION: Pneumonia COMPARISON: 07/22/2019 FINDINGS: Single frontal view of the chest demonstrates normal heart size and pulmonary vascularity. The lungs are well aerated and clear. No large pleural effusion or pneumothorax is seen. The visualized osseous structures show no acute abnormalities. IMPRESSION: 1. No acute cardiopulmonary process. Dictated by: Dictated on workstation # [id number]
[2019-07-23 08:00] VITALS: BP 125/74
[2019-07-23] MEDS: FAMOTIDINE 20 MG (PEPCID) TABLET PO SCH (08:41)
[2019-07-23] MEDS: FUROSEMIDE 40 MG (LASIX) TAB PO SCH (08:41)
[2019-07-23] MEDS: ASPIRIN 81 MG CHEW (CHILDREN'S ASA) PO SCH (08:41)
[2019-07-23] MEDS: meTOproloL SUCCINATE 50 MG (TOPROL XL) TAB PO SCH (08:41)
[2019-07-23] MEDS: methylPREDNISolone 125 MG (Solu-MEDROL) VIAL IVP SCH (08:42)
[2019-07-23] MEDS ORDERED: FLU QUADRIvalent (5+ YOA) 2019-2020 (AFLURIA) 0.5 ML IM ONE (08:45)
[2019-07-23] MEDS: FLUTICASONE NASAL SPRAY (FLONASE) 16 GM BTL NS SCH (09:03)
[2019-07-23] MEDS ORDERED: METO-370 PO (10:35)
[2019-07-23] MEDS ORDERED: PRED10TA22 PO (10:35)
--- NOTE | 2019-07-23 10:36 | Discharge Summary ---
Discharge Summary Hospital Course Was the Problem List Reviewed?: Yes Problems/Dx: (1) Pneumonia Status: Acute Qualifiers: Qualified Codes: J18.1 - Lobar pneumonia, unspecified organism (2) Type 2 diabetes mellitus Status: Acute Qualifiers: Qualified Codes: E11.65 - Type 2 diabetes mellitus with hyperglycemia (3) Acute on chronic respiratory failure with hypoxia and hypercapnia Status: Acute (4) Heavy cigarette smoker Status: Acute (5) CO2 narcosis Status: Acute (6) CHF (congestive heart failure) Status: Acute (7) HTN (hypertension) Status: Chronic (8) JORGE L treated with BiPAP Status: Chronic Hospital Course Date of Admission: Jul 17, 2019 at 20:50 Admission Diagnosis : Family Physician/Provider: EileenLocal Physician Date of Discharge: 07/23/19 Discharge Diagnosis: AECOPD, PNA, Smoker, DM Hospital Course: Hospital course: Pt has a lengthy hospital course due to the severity of her COPD after she presented with pneumonia and type II DM, management with severe COPD, oxygen dependent, she was placed on IV steroids then oral steroids, placed on Rocephin and Zithromax, she responded, weaned off Vapotherm and Pt was deemed stable for discharge in improved condition. Smoking cessation counseled. Labs and Pending Lab Test: Laboratory Tests 07/22/19 10:56: Glucometer 209H 07/22/19 15:55: Glucometer 328H 07/22/19 20:07: Glucometer 138H 07/23/19 05:29: Glucometer 230H 07/23/19 05:54: White Blood Count 8.4, Red Blood Count 4.92, Hemoglobin 13.8, Hematocrit 45, Mean Corpuscular Volume 91, Mean Corpuscular Hemoglobin 28, Mean Corpuscular Hemoglobin Concent 31L, Red Cell Distribution Width 14.2, Platelet Count 194, Mean Platelet Volume 9.2, Neutrophils (%) (Auto) 85H, Lymphocytes (%) (Auto) 10L , Monocytes (%) (Auto) 4, Eosinophils (%) (Auto) 0, Basophils (%) (Auto) 0, Neutrophils # (Auto) 7.2, Lymphocytes # (Auto) 0.9L, Monocytes # (Auto) 0.4, Eosinophils # (Auto) 0.0, Basophils # (Auto) 0.0, Sodium Level 138, Potassium Level 4.9, Chloride Level 90L, Carbon Dioxide Level 36H, Anion Gap 12, Blood Urea Nitrogen 24H, Creatinine 0.83, Estimat Glomerular Filtration Rate > 60, BUN/Creatinine Ratio 29, Glucose Level 229H, Calcium Level 9.0, Phosphorus Level 3.6, Magnesium Level 2.3 Microbiology 07/17/19 MRSA Screen - Final, Complete 07/17/19 Blood Culture - Preliminary, Resulted No growth Home Meds Active Prednisone 10 Mg Tab.ds.pk 10 Mg PO DAILY Take 6 tabs(60mg)daily,decrease by 1 tab(10MG)daily. Metoprolol Succinate 50 Mg Tab.er.24h 50 Mg PO DAILY Reported Tylenol Extra Strength (Acetaminophen) 500 Mg Tablet 1,500 Mg PO Q8H PRN Aspirin 81 Mg Tab.chew 81 Mg PO DAILY Glipizide 5 Mg Tablet 5 Mg PO HS Glipizide 5 Mg Tablet 10 Mg PO DAILY TAKES 2 (5MG) TABS Fluticasone-Salmeterol 250-50 (Fluticasone Propion/Salmeterol) 1 Each Blst.w.dev 1 Puff INH BID [place]-3 Fish Oil 1,000 mg Sftg ([place]-3/Dha/Epa/Fish Oil) 1 Each Capsule 2,000 Mg PO DAILY Albuterol Sulfate 2.5 Mg/3 Ml Vial.neb 3 Ml NEB Q4-6 H PRN Montelukast Sodium 10 Mg Tablet 10 Mg PO HS Famotidine 20 Mg Tablet 20 Mg PO BID Loratadine 10 Mg Tablet 10 Mg PO DAILY PRN Metformin HCl 500 Mg Tablet 500 Mg PO BID Levothyroxine Sodium 175 Mcg Tablet 175 Mcg PO DAILY Fluticasone Propionate 16 Gm [place].susp 2 [place] NS DAILY PRN Atorvastatin Calcium 10 Mg Tablet 10 Mg PO DAILY Potassium Chloride 10 Meq Tab.er.prt 10 Meq PO DAILY Furosemide 40 Mg Tablet 40 Mg PO DAILY Proair Hfa (Albuterol Sulfate) 1 Puff Puff 2 Puff INH Q6H PRN Spiriva (Tiotropium [place]) 1 Inh Aerp 1 Cap INH 1300 Paroxetine HCl 40 Mg Tablet 40 Mg PO 1500 Assessment/Pt Instructions [facility] 1 week Discharge Planning: <30 minutes discharge planning Discharge Instructions Discharge Diet: No Restrictions Discharge Physical Examination Vital Signs Vital Signs Date Time Temp Pulse Resp B/P (MAP) Pulse Ox O2 Delivery O2 Flow Rate FiO2 07/23/19 08:00 96 High Flow N/C 4.00 53 07/23/19 08:00 36.4 69 20 125/74 (91) Allergies: Coded Allergies: NKANo Known Allergies (Unverified Allergy, Mild, 05/01/09) Discharge Summary Date of Admission Jul 17, 2019 at 20:50 Date of Discharge Discharge Date: Jul 23, 2019 Admission Diagnosis acute respiratory failure-secondary to pneumonia hypercapnic respiratory failure-chronic Metabolic alkalosis compensatory for number 2 Exacerbation of COPD day number 2 Rocephin and Zithromax with harsh a clearing of infiltrates order entry representative of pneumonia Tobaccoism non-curtailed Type II diabetes out of control secondary to steroids Morbid obesity Plan for aggressive pulmonary toilet day number 2 Zithromax and Rocephin and steroids Discharge Diagnosis Assessment: AECOPD Hypercapnia PNA Wheezing Plan: Vapotherm weaned Wean O2 Nebs DC home tomorrow (1) Pneumonia Status: Acute Qualifiers: Qualified Codes: J18.1 - Lobar pneumonia, unspecified organism (2) Type 2 diabetes mellitus Status: Acute Qualifiers: Qualified Codes: E11.65 - Type 2 diabetes mellitus with hyperglycemia (3) Acute on chronic respiratory failure with hypoxia and hypercapnia Status: Acute (4) Heavy cigarette smoker Status: Acute (5) CO2 narcosis Status: Acute (6) CHF (congestive heart failure) Status: Acute (7) HTN (hypertension) Status: Chronic (8) JORGE L treated with BiPAP Status: Chronic Clinical Quality Measures DVT/VTE Risk/Contraindication: Risk Factor Score Per Nursin RFS Level Per Nursing on Admit: 4+=Very High CLAIRE BAZZI DO Jul 23, 2019 10:36
== END 2019-07-23 12:45 | disposition home or self-care (01) | DRG 193 ==
LOC: EDUNIT# 18:51 → ER 18:52 → ICU 20:50 → 4TH 07-20 01:18
PROVIDERS: ADMIT Internal Medicine; ATTEND Internal Medicine
PROC: 5A09457 Assistance with Respiratory Ventilation, 24-96 Consecutive Hours, Continuous Positive Airway Pressure (ICD-10-PCS; principal; 2019-07-17)
DX: J18.9 Pneumonia, unspecified organism (principal); J96.22 Acute and chronic respiratory failure with hypercapnia; E87.4 Mixed disorder of acid-base balance; J20.9 Acute bronchitis, unspecified; J43.9 Emphysema, unspecified; E11.65 Type 2 diabetes mellitus with hyperglycemia; E87.5 Hyperkalemia; E78.00 Pure hypercholesterolemia, unspecified; I10 Essential (primary) hypertension; E03.9 Hypothyroidism, unspecified; F41.9 Anxiety disorder, unspecified; F32.9 Major depressive disorder, single episode, unspecified; E66.01 Morbid (severe) obesity due to excess calories; Z68.34 Body mass index [BMI] 34.0-34.9, adult; T38.0X5A Adverse effect of glucocorticoids and synthetic analogues, initial encounter; Z79.82 Long term (current) use of aspirin; Z79.84 Long term (current) use of oral hypoglycemic drugs
CPT/HCPCS: 36415; 36600; 71045; 71046; 80048; 80053; 81000; 82805; 82962; 83605; 83735; 83880; 84100; 84484; 85025; 87040; 87070; 87081; 87185; 87205; 87804; 93005; 93041; 94640; 94660; 94664; 94760; 96361; 96365; 96375

== ENCOUNTER 2019-08-21 23:12 | Emergency (ER) | payer MEDICAID ==
[~2019-08-21 23:12] MED LIST changes: +ACET-2267 PO; +FLUT1DIS26 IH; -METO-370 PO; +METO50TA7 PO
--- NOTE | 2019-08-22 00:01 | NUR ---
pt not in waiting room when called.
[2019-08-22] MEDS ORDERED: ACHD5005 PO (16:30)
[2019-08-22] MEDS ORDERED: LINE600T15 PO (16:30)
== END 2019-08-22 00:01 | disposition left against medical advice (07) ==
LOC: EDUNIT# 23:12 → ER 23:14
DX: R68.84 Jaw pain (principal)

== ENCOUNTER 2019-08-22 14:31 | Emergency (ER) | payer MEDICAID ==
[~2019-08-22] VITALS: Ht 167.3 cm; Wt 94.5 kg
[2019-08-22] MEDS ORDERED: NS IV 1000 ML 1,000 ML IV SCH (14:46)
--- NOTE | 2019-08-22 14:54 | ED EENT ---
History of Present Illness General Stated Complaint: FACIAL SWELLING Source: patient, family Exam Limitations: no limitations History of Present Illness Date Seen by Provider: Aug 22, 2019 Time Seen by Provider: 14:40 Initial Comments Patient presents to ER by private conveyance with chief complaint of some swelling and nodule on her left jaw. She has dentures and no pain or discharge from her mouth. He says it started about a week ago and Saturday, 2 days ago she went to urgent care and they thought she had an infection of her salivary gland and put her on Augmentin. She's been taking it for 2 days and she and her daughter feel got larger. She's not having any difficulty swallowing fluids or breathing. She's not had any fevers or chills. He has no cough, shortness of breath or wheezing. She is with chronic emphysema and dependent on 2 L oxygen by nasal cannula but she's not convinced that her oxygen bottle is working correctly. Allergies and Home Medications Allergies Coded Allergies: Red Known Allergies (Unverified Allergy, Mild, 05/01/09) Home Medications Acetaminophen 500 Mg Tablet, 1,500 MG PO Q8H PRN for PAIN-MILD (1-4), (Reported) Albuterol Sulfate 1 Puff Puff, 2 PUFF INH Q6H PRN for SHORTNESS OF BREATH, (Reported) Albuterol Sulfate 2.5 Mg/3 Ml Vial.neb, 3 ML NEB Q4-6 H PRN for SHORTNESS OF BREATH, (Reported) Aspirin 81 Mg Tab.chew, 81 MG PO DAILY, (Reported) Atorvastatin Calcium 10 Mg Tablet, 10 MG PO DAILY, (Reported) Famotidine 20 Mg Tablet, 20 MG PO BID, (Reported) Fluticasone Propion/Salmeterol 1 Each Blst.w.dev, 1 PUFF INH BID, (Reported) Fluticasone Propionate 16 Gm Lynch.susp, 2 SPRAY NS DAILY PRN for CONGESTION, (Reported) Furosemide 40 Mg Tablet, 40 MG PO DAILY, (Reported) Glipizide 5 Mg Tablet, 10 MG PO DAILY, (Reported) TAKES 2 (5MG) TABS Glipizide 5 Mg Tablet, 5 MG PO HS, (Reported) Hydrocodone Bit/Acetaminophen 1 Tab Tab, 1 EACH PO Q4-6HR PRN for PAIN-MODERATE Prescribed by: AJ WETZEL on 08/22/19 1630 Levothyroxine Sodium 175 Mcg Tablet, 175 MCG PO DAILY, (Reported) Linezolid 600 Mg Tablet, 600 MG PO BID Prescribed by: AJ WETZEL on 08/22/19 1630 Loratadine 10 Mg Tablet, 10 MG PO DAILY PRN for AALLERGY SYMPTOMS, (Reported) Metformin HCl 500 Mg Tablet, 500 MG PO BID, (Reported) Metoprolol Succinate 50 Mg Tab.er.24h, 50 MG PO DAILY Prescribed by: CLAIRE BAZZI on 07/23/19 1035 Montelukast Sodium 10 Mg Tablet, 10 MG PO HS, (Reported) [place]-3/Dha/Epa/Fish Oil 1 Each Capsule, 2,000 MG PO DAILY, (Reported) Paroxetine HCl 40 Mg Tablet, 40 MG PO 1500, (Reported) Potassium Chloride 10 Meq Tab.er.prt, 10 MEQ PO DAILY, (Reported) Prednisone 10 Mg Tab.ds.pk, 10 MG PO DAILY Take 6 tabs(60mg)daily,decrease by 1 tab(10MG)daily. Prescribed by: CLAIRE BAZZI on 07/23/19 1035 Tiotropium [place] 1 Inh Aerp, 1 CAP INH 1300, (Reported) Patient Home Medication List Home Medication List Reviewed: Yes Review of Systems Review of Systems Constitutional: No chills, No diaphoresis, No fever Eyes: Denies Blindness, Denies Blurred Vision Ears: Denies Dizziness, Denies Pain Nose: denies clots, denies congestion Mouth: denies clots; swelling; denies bloody discharge, denies clear discharge Throat: denies pain, denies swelling Respiratory: No cough, No short of breath Cardiovascular: No chest pain, No edema Musculoskeletal: No back pain, No joint pain Neurological: Denies Anxiety, Denies Depressed Past Hpkcqzy-Jylzgl-Brdzrd Hx Patient Social History Alcohol Use: Denies Use Recreational Drug Use: No Smoking Status: Current Everyday Smoker Type Used: Cigarettes 2nd Hand Smoke Exposure: Yes Recent Foreign Travel: No Contact w/Someone Who Travel: No Recent Hopitalizations: No Immunizations Up To Date Tetanus Booster (TDap): Unknown PED Vaccines UTD: No Date of Pneumonia Vaccine: Aug 22, 2018 Seasonal Allergies Seasonal Allergies: Yes Past Medical History Surgeries: Yes Respiratory: Yes (O2 DEPENDENT AT 4L/NC; INTUBATED 10/2018 FOR RESPIRATORY FAILURE ) Pneumonia, COPD Currently Using CPAP: No Currently Using BIPAP: No Cardiac: Yes High Cholesterol, Hypertension Neurological: No 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 Disorders: Denies Sexually Transmitted Disease: No HIV/AIDS: No Genitourinary: No Gastrointestinal: No Musculoskeletal: No Endocrine: Yes Hypothyroidsim, Diabetes, Non-Insulin dep HEENT: No Loss of Vision: Denies Hearing Impairment: Denies Cancer: No Psychosocial: Yes Anxiety, Depression Integumentary: No Blood Disorders: No Adverse Reaction/Blood Tranf: No Family Medical History Cardiovascular disease 19 MOTHER, Onset:Unknown Diabetes mellitus 19 MOTHER, Onset:Unknown Diabetes Physical Exam Vital Signs Vital Signs - First Documented 08/22/19 14:36 Temp 37.2 Pulse 123 Resp 20 B/P (MAP) 136/70 (92) Pulse Ox 66 O2 Delivery Nasal Cannula O2 Flow Rate 4.00 Height, Weight, BMI Height: 5'6.00" Weight: 212lbs. 1.0oz. 96.944292yx; 33.00 BMI Method:Estimated General Appearance: WD/WN, no apparent distress Eyes: bilateral eye normal inspection, bilateral eye PERRL, bilateral eye EOMI Ears: bilateral ear auricle normal, bilateral ear canal normal, bilateral ear TM normal Nose: normal inspection, active bleeding Mouth/Throat: normal mouth inspection, pharynx normal, dental tenderness Neck: full range of motion, other (left parotid gland swelling, tenseness or fluctuance pointing or discharge.) Cardiovascular: normal peripheral pulses, regular rate, rhythm Respiratory: no respiratory distress, no accessory muscle use Gastrointestinal: normal bowel sounds, non tender, soft Neurologic/Psychiatric: alert, normal mood/affect, oriented x 3 Procedures/Interventions Date of ETT Placement: Mar 09, 2019 Time of ETT Placement: 39 Progress/Results/Core Measures Results/Orders Lab Results Laboratory Tests Test 08/22/19 14:50 Range/Units White Blood Count 10.7 4.3-11.0 10^3/uL Red Blood Count 4.72 4.35-5.85 10^6/uL Hemoglobin 13.6 11.5-16.0 G/DL Hematocrit 43 35-52 % Mean Corpuscular Volume 92 80-99 FL Mean Corpuscular Hemoglobin 29 25-34 PG Mean Corpuscular Hemoglobin Concent 31 L 32-36 G/DL Red Cell Distribution Width 16.7 H 10.0-14.5 % Platelet Count 229 130-400 10^3/uL Mean Platelet Volume 9.7 7.4-10.4 FL Neutrophils (%) (Auto) 85 H 42-75 % Lymphocytes (%) (Auto) 10 L 12-44 % Monocytes (%) (Auto) 5 0-12 % Eosinophils (%) (Auto) 0 0-10 % Basophils (%) (Auto) 0 0-10 % Neutrophils # (Auto) 9.1 H 1.8-7.8 X 10^3 Lymphocytes # (Auto) 1.1 1.0-4.0 X 10^3 Monocytes # (Auto) 0.5 0.0-1.0 X 10^3 Eosinophils # (Auto) 0.0 0.0-0.3 10^3/uL Basophils # (Auto) 0.0 0.0-0.1 10^3/uL Sodium Level 137 135-145 MMOL/L Potassium Level 3.9 3.6-5.0 MMOL/L Chloride Level 89 L 98-107 MMOL/L Carbon Dioxide Level 31 21-32 MMOL/L Anion Gap 17 H 5-14 MMOL/L Blood Urea Nitrogen 8 7-18 MG/DL Creatinine 0.86 0.60-1.30 MG/DL Estimat Glomerular Filtration Rate > 60 BUN/Creatinine Ratio 9 Glucose Level 328 H 70-105 MG/DL Calcium Level 10.6 H 8.5-10.1 MG/DL Corrected Calcium 11.1 H 8.5-10.1 MG/DL Total Bilirubin 0.3 0.1-1.0 MG/DL Aspartate Amino Transf (AST/SGOT) 9 5-34 U/L Alanine Aminotransferase (ALT/SGPT) 10 0-55 U/L Alkaline Phosphatase 153 H 40-136 U/L C-Reactive Protein High Sensitivity 30.26 H 0.00-0.50 MG/DL Total Protein 7.9 6.4-8.2 GM/DL Albumin 3.4 3.2-4.5 GM/DL My Orders Orders - AJ WETZEL Ed Iv/Invasive Line Start (08/22/19 14:46) Ns Iv 1000 Ml (Sodium Chloride 0.9%) (08/22/19 14:46) Ct Neck (Soft Tissue) W (08/22/19 14:46) Cbc With Automated Diff (08/22/19 14:46) Comprehensive Metabolic Panel (08/22/19 14:46) Hs C Reactive Protein (08/22/19 14:46) Iohexol Injection (Omnipaque 350 Mg/Ml 1 (08/22/19 15:30) Received Contrast (Hold Metformin- Contr (08/22/19 15:30) Ns (Ivpb) (Sodium Chloride 0.9% Ivpb Bag (08/22/19 15:30) Ceftriaxone For Iv Use (Rocephin For I (08/22/19 16:15) Ketorolac Injection (Toradol Injection) (08/22/19 16:45) Medications Given in ED Current Medications Medications Dose Ordered Sig/Jeana Route Start Time Stop Time Status Last Admin Dose Admin Ceftriaxone Sodium 1000 mg/ Sterile Water 10 ml @ 200 mls/hr ONCE ONCE IV 08/22/19 16:15 08/22/19 16:17 DC 08/22/19 16:20 200 MLS/HR Iohexol 75 ml ONCE ONCE IV 08/22/19 15:30 08/22/19 15:35 DC 08/22/19 15:52 75 ML Sodium Chloride 100 ml ONCE ONCE IV 08/22/19 15:30 08/22/19 15:35 DC 08/22/19 15:52 80 ML Vital Signs/I&O 08/22/19 08/22/19 14:36 16:45 Temp 37.2 37.2 Pulse 123 80 Resp 20 18 B/P (MAP) 136/70 (92) 130/72 (92) Pulse Ox 66 98 O2 Delivery Nasal Cannula Nasal Cannula O2 Flow Rate 4.00 2.00 Progress Progress Note : Time: 16:20 Progress Note Basic labs demonstrate no severe systemic leukemoid reaction. Clinical exam correlates to CT exam with IV contrast demonstrating no purulence or tumor. Plan to give her linezolid for 10 days in addition to her Augmentin and have her follow up next week with primary care. Expect improvement by Saturday or Saturday. We have given her return precautions. We'll give her Rocephin IV 1 g now. Aseptic vital signs. She was tachycardic when she arrived but it was because her oxygen cylinder is not working appropriately. We have her back on 2 L and her heart rate is in the mid 80s with an oxygen sat of 98 -100%. She had no subjective shortness of breath. Mild wheezing but she did not require or want a breathing treatment at this time. Diagnostic Imaging Diagonstic Imaging: CT (with IV contrast) Plain Films/CT/US/NM/MRI: other (soft tissue neck) Comments NAME: SAMPSON CEVALLOS [facility] REC#: [id number] PT STATUS: REG ER : 1965 PHYSICIAN: AJ WETZEL MD ADMIT DATE: 08/22/19/ER Draft Date of Exam:08/22/19 CT NECK (SOFT TISSUE) W EXAMINATION: CT Neck with intravenous contrast. TECHNIQUE: Multiple contiguous axial images were obtained through the neck after the uneventful administration of intravenous contrast. All CT scans use one or more of the following dose optimizing techniques: automated exposure control, MA and/or KvP adjustment based on a patient size and exam type, or iterative reconstruction. HISTORY: Neck swelling. COMPARISON: None available. FINDINGS: There are enlarged level II and III lymph nodes on the left which are likely reactive. The muscles of the neck are normal. Vessels of the neck demonstrate normal course and caliber. There is marked enlargement and hyperenhancement of the left parotid gland and to a lesser degree the left submandibular gland concerning for parotiditis. There is surrounding fat stranding. No radiopaque sialolith is seen. The base of the skull and the temporal bones are normal. Limited views of the brain including the cerebellum and brainstem are normal. The limited view of the [place] is unremarkable. The visualized portions of the orbits are normal. The spinal canal is normal in caliber. Intervertebral disk heights are normal. Neural foramina are normal. Limited examination of the superior thorax shows no pulmonary infiltrate, suspicious nodules, or pleural effusions. IMPRESSION: 1. Marked enlargement hyperenhancement of the left parotid gland with surrounding fat stranding and to a lesser degree the left submandibular gland concerning for parotiditis. Dictated on workstation # [id number] Dict: 08/22/19 1609 Trans: 08/22/19 1615 [facility] [id number] Interpreted by: FRANCINE GAO MD Electronically signed by: Reviewed: Reviewed by Me Departure Impression Primary Impression: Acute parotitis Disposition: HOME, SELF-CARE Condition: Stable Departure-Patient Inst. Decision time for Depature: 16:22 Referrals: [facility] (PCP/Family) Primary Care Physician Patient Instructions: Parotitis Add. Discharge Instructions: Continue taking the Augmentin as prescribed one tablet twice a day. Start taking linezolid today one tablet twice a day for the next 10 days. Tylenol 650 mg every 8 hours as needed for pain. Heating pads as needed for pain. Use sugar-free, hard candy frequently to keep your mouth salivating to help clear out the parotid gland. Ibuprofen 800 mg every 8 hours as needed for pain. Hydrocodone one tablet every 6 hours as needed for breakthrough pain that keeps you from being functional. Hydrocodone will cause drowsiness and constipation. MiraLAX can help with the constipation. Expect to see some results by Saturday or Saturday. Follow-up with your primary care doctor next week. Return to the ER if you're having difficulty with breathing, swallowing secretions, fever especially above 102.5, intractable pain or nausea. Scripts Hydrocodone Bit/Acetaminophen (Hydrocodone/Acetaminophen 5/325mg Tablet) 1 Tab Tab 1 EACH PO Q4-6HR PRN for PAIN-MODERATE MDD 10 for 3 Days, #14 TAB 0 Refills Prov: AJ WETZEL 08/22/19 Linezolid (Linezolid) 600 Mg Tablet 600 MG PO BID for 10 Days, #20 TAB 0 Refills Prov: AJ WETZEL 08/22/19 AJ WETZEL Aug 22, 2019 14:54
[2019-08-22 15:01] LABS: BASOPHILS % (AUTO) 0 % (0-10); EOSINOPHILS % (AUTO) 0 % (0-10); HEMATOCRIT 43 % (35-52); HEMOGLOBIN 13.6 G/DL (11.5-16.0); LYMPHOCYTES # (AUTO) 1.1 X 10^3 (1.0-4.0); LYMPHOCYTES % (AUTO) 10 % (12-44); MEAN CORPUSCULAR HEMOGLOBIN 29 PG (25-34); MEAN CORPUSCULAR HGB CONC 31 G/DL (32-36); MEAN CORPUSCULAR VOLUME 92 FL (80-99); MEAN PLATELET VOLUME 9.7 FL (7.4-10.4); MONOCYTES # (AUTO) 0.5 X 10^3 (0.0-1.0); MONOCYTES % (AUTO) 5 % (0-12); NEUTROPHILS # (AUTO) 9.1 X 10^3 (1.8-7.8); NEUTROPHILS % (AUTO) 85 % (42-75); PLATELET COUNT 229 10^3/uL (130-400); RED CELL DISTRIBUTION WIDTH 16.7 % (10.0-14.5); WHITE BLOOD COUNT 10.7 10^3/uL (4.3-11.0)
[2019-08-22] MEDS ORDERED: HOLD METFORMIN - RECEIVED CONTRAST 20 ML VIAL IV SCH (15:30)
[2019-08-22] MEDS ORDERED: IOHEXOL 350 MG/ML 100 ML (OMNIPAQUE 350) VIAL IV ONE (15:30)
[2019-08-22] MEDS ORDERED: NS 100 ML (IVPB) BAG IV ONE (15:30)
[2019-08-22 15:36] LABS: ALANINE AMINOTRANSFERASE 10 U/L (0-55); ALBUMIN 3.4 GM/DL (3.2-4.5); ALKALINE PHOSPHATASE 153 U/L (40-136); BILIRUBIN,TOTAL 0.3 MG/DL (0.1-1.0); BUN/CREATININE RATIO 9; CALCIUM 10.6 MG/DL (8.5-10.1); CARBON DIOXIDE 31 MMOL/L (21-32); CHLORIDE 89 MMOL/L (98-107); CREATININE SERUM 0.86 MG/DL (0.60-1.30); GFR ESTIMATED > 60; GLUCOSE 328 MG/DL (70-105); POTASSIUM 3.9 MMOL/L (3.6-5.0); SODIUM 137 MMOL/L (135-145); TOTAL PROTEIN 7.9 GM/DL (6.4-8.2)
[2019-08-22] MEDS ORDERED: cefTRIAXone FOR IV USE 1,000 MG in WATER (STERILE) FOR INJECTION 10 ML IV ONE (16:15)
--- NOTE | 2019-08-22 16:16 | Diagnostic Imaging Report ---
EXAMINATION: CT Neck with intravenous contrast. TECHNIQUE: Multiple contiguous axial images were obtained through the neck after the uneventful administration of intravenous contrast. All CT scans use one or more of the following dose optimizing techniques: automated exposure control, MA and/or KvP adjustment based on a patient size and exam type, or iterative reconstruction. HISTORY: Neck swelling. COMPARISON: None available. FINDINGS: There are enlarged level II and III lymph nodes on the left which are likely reactive. The muscles of the neck are normal. Vessels of the neck demonstrate normal course and caliber. There is marked enlargement and hyperenhancement of the left parotid gland and to a lesser degree the left submandibular gland concerning for parotiditis. There is surrounding fat stranding. No radiopaque sialolith is seen. The base of the skull and the temporal bones are normal. Limited views of the brain including the cerebellum and brainstem are normal. The limited view of the [place] is unremarkable. The visualized portions of the orbits are normal. The spinal canal is normal in caliber. Intervertebral disk heights are normal. Neural foramina are normal. Limited examination of the superior thorax shows no pulmonary infiltrate, suspicious nodules, or pleural effusions. IMPRESSION: 1. Marked enlargement hyperenhancement of the left parotid gland with surrounding fat stranding and to a lesser degree the left submandibular gland concerning for parotiditis. Dictated by: Dictated on workstation # [id number]
[2019-08-22] MEDS ORDERED: ACHD5005 PO (16:30)
[2019-08-22] MEDS ORDERED: LINE600T15 PO (16:30)
[2019-08-22] MEDS: KETOROLAC 30 MG/ML VIAL IVP ONE ×2 (16:41→16:50)
[2019-08-22 16:45] VITALS: BP 130/72
== END 2019-08-22 16:45 | disposition home or self-care (01) ==
LOC: EDUNIT# 14:31 → ER 14:33
DX: K11.21 Acute sialoadenitis (principal); J44.9 Chronic obstructive pulmonary disease, unspecified; I10 Essential (primary) hypertension; E11.9 Type 2 diabetes mellitus without complications; E78.00 Pure hypercholesterolemia, unspecified; E03.9 Hypothyroidism, unspecified; F41.9 Anxiety disorder, unspecified; F32.9 Major depressive disorder, single episode, unspecified; Z79.51 Long term (current) use of inhaled steroids; Z79.84 Long term (current) use of oral hypoglycemic drugs; Z82.49 Family history of ischemic heart disease and other diseases of the circulatory system
CPT/HCPCS: 36415; 70491; 80053; 85025; 86141

== ENCOUNTER 2019-09-11 22:41 | Inpatient (IN) | payer MEDICAID ==
[~2019-09-11] VITALS: Ht 167.3 cm; Wt 95.9 kg
[~2019-09-11 22:41] MED LIST changes: +ACHD5005 PO; +LNZ600T PO; -MONT10TA24 PO; +MONT10TA26 PO; +NS IV 1000 ML 1,000 ML ONE
--- NOTE | 2019-09-11 22:41 | NUR ---
PT BROUGHT IN BY [facility] FOR C/O INCREASED SOA X2-3 DAYS. PT ON EMS CPAP. PT OBTUNDED, NOT ANSWERING QUESTIONS. ERP AT BEDSIDE. BEGAN BAGGING PT WITH BVM. SPO2 INCREASED TO 100% WITH BVM ASSISSTANCE.
[2019-09-11] MEDS ORDERED: PROPOFOL DRIP (ICU) 100 ML IV ONE (23:02)
[2019-09-11] MEDS ORDERED: NS IV 1000 ML 1,000 ML IV SCH ×2 (23:05)
[2019-09-11] MEDS: PROPOFOL DRIP (ICU) 100 ML IV SCH (23:10)
[2019-09-11] MEDS ORDERED: RT-ALBUTEROL/IPRATROPIUM 3 ML (DUONEB) VIAL INH ONE (23:15)
[2019-09-11] MEDS ORDERED: methylPREDNISolone 125 MG (Solu-MEDROL) VIAL IVP ONE (23:15)
[2019-09-11] MEDS ORDERED: PHARMACY TO DOSE IV ONE (23:15)
[2019-09-11] MEDS ORDERED: CEFEPIME INJECTION 1,000 MG in WATER (STERILE) FOR INJECTION 10 ML IV ONE (23:15)
[2019-09-11] MEDS ORDERED: VANCOMYCIN INJECTION 1,000 MG in NS (IVPB) 250 ML IV ONE (23:15)
--- NOTE | 2019-09-11 23:17 | ED Respiratory ---
General Chief Complaint: Respiratory Problems Stated Complaint: COPD Nursing Triage Note: BROUGHT IN BY [facility] FOR [facility]. Source: patient, EMS Exam Limitations: no limitations History of Present Illness Date Seen by Provider: Sep 11, 2019 Time Seen by Provider: 22:38 Initial Comments Patient presents to ER by EMS from home with chief complaint to 3 days progressively worsening shortness of breath and wheezing. 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 Her family gives most of the history. Patient wears a CPAP at night to sleep. Earlier today she called her family because she was having shortness of breath and oxygen sats were in the 60s. They put her on her oxygen at 3 L and some breathing treatments and she said she got up to 90% but she refused to come to the hospital or see her doctor. She has been i ntubated and treated for pneumonia in the past. She has never indicated that she does not want to be intubated. EMS said that she was able to walk down the short hallway to get on the gurney and they put her on CPAP and gave her a breathing treatment. The patient arrived she would open her eyes to verbal commands but did not follow commands or answer questions. No mention of fever. August 22 days ago she was seen by this provider and put on linezolid and Augmentin for parotiditis. Allergies and Home Medications Allergies Coded Allergies: CALDERONANo Known Allergies (Unverified Allergy, Mild, 05/01/09) Home Medications Acetaminophen 500 Mg Tablet, 1,500 MG PO Q8H PRN for PAIN-MILD (1-4), (Reported) Albuterol Sulfate 1 Puff Puff, 2 PUFF INH Q6H PRN for SHORTNESS OF BREATH, (Reported) Albuterol Sulfate 2.5 Mg/3 Ml Vial.neb, 3 ML NEB Q4-6 H PRN for SHORTNESS OF BREATH, (Reported) Aspirin 81 Mg Tab.chew, 81 MG PO DAILY, (Reported) Atorvastatin Calcium 10 Mg Tablet, 10 MG PO DAILY, (Reported) Famotidine 20 Mg Tablet, 20 MG PO BID, (Reported) Fluticasone Propion/Salmeterol 1 Each Blst.w.dev, 1 PUFF INH BID, (Reported) Fluticasone Propionate 16 Gm [place].susp, 2 SPRAY NS DAILY PRN for CONGESTION, (Reported) Furosemide 40 Mg Tablet, 40 MG PO DAILY, (Reported) Glipizide 5 Mg Tablet, 10 MG PO DAILY, (Reported) TAKES 2 (5MG) TABS Glipizide 5 Mg Tablet, 5 MG PO HS, (Reported) Hydrocodone Bit/Acetaminophen 1 Tab Tab, 1 EACH PO Q4-6HR PRN for PAIN-MODERATE Prescribed by: AJ WETZEL on 08/22/19 1630 Levothyroxine Sodium 175 Mcg Tablet, 175 MCG PO DAILY, (Reported) Linezolid 600 Mg Tablet, 600 MG PO BID Prescribed by: AJ WETZEL on 08/22/19 1630 Loratadine 10 Mg Tablet, 10 MG PO DAILY PRN for AALLERGY SYMPTOMS, (Reported) Metformin HCl 500 Mg Tablet, 500 MG PO BID, (Reported) Metoprolol Succinate 50 Mg Tab.er.24h, 50 MG PO DAILY Prescribed by: CLAIRE BAZZI on 07/23/19 1035 Montelukast Sodium 10 Mg Tablet, 10 MG PO HS, (Reported) [place]-3/Dha/Epa/Fish Oil 1 Each Capsule, 2,000 MG PO DAILY, (Reported) Paroxetine HCl 40 Mg Tablet, 40 MG PO 1500, (Reported) Potassium Chloride 10 Meq Tab.er.prt, 10 MEQ PO DAILY, (Reported) Prednisone 10 Mg Tab.ds.pk, 10 MG PO DAILY Take 6 tabs(60mg)daily,decrease by 1 tab(10MG)daily. Prescribed by: CLAIRE BAZZI on 07/23/19 1035 Tiotropium [place] 1 Inh Aerp, 1 CAP INH 1300, (Reported) Patient Home Medication List Home Medication List Reviewed: Yes Review of Systems Review of Systems Constitutional: see HPI (difficult to obtain a review of systems as the patient is nonverbal at this time.); No chills, No diaphoresis Respiratory: cough, short of breath, wheezing Cardiovascular: No chest pain, No palpitations Gastrointestinal: No abdominal pain, No constipation, No diarrhea, No nausea, No vomiting Genitourinary: No discharge, No dysuria Musculoskeletal: No back pain, No joint pain Skin: No pruritus, No rash Psychiatric/Neurological: Denies Anxiety, Denies Depressed Past Xuyosgo-Hqwbod-Ytrpbo Hx Patient Social History Alcohol Use: Denies Use Recreational Drug Use: No Smoking Status: Current Everyday Smoker Type Used: Cigarettes 2nd Hand Smoke Exposure: Yes Recent Foreign Travel: No Contact w/Someone Who Travel: No Recent Infectious Disease Expo: No Recent Hopitalizations: No Physical Abuse: No Sexual Abuse: No Mistreated: No Fear: No Immunizations Up To Date Tetanus Booster (TDap): Unknown PED Vaccines UTD: No Date of Pneumonia Vaccine: Aug 22, 2018 Seasonal Allergies Seasonal Allergies: Yes Past Medical History Surgeries: Yes Respiratory: Yes (O2 DEPENDENT AT 4L/NC) Pneumonia, COPD Currently Using CPAP: No Currently Using BIPAP: No Cardiac: Yes High Cholesterol, Hypertension Neurological: No : No 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 Sexually Transmitted Disease: No HIV/AIDS: No Genitourinary: No Gastrointestinal: No Musculoskeletal: No Endocrine: Yes Hypothyroidsim, Diabetes, Non-Insulin dep HEENT: No Loss of Vision: Denies Hearing Impairment: Denies Cancer: No Psychosocial: Yes Anxiety, Depression Integumentary: No Blood Disorders: No Adverse Reaction/Blood Tranf: No Family Medical History Cardiovascular disease 19 MOTHER, Onset:Unknown Diabetes mellitus 19 MOTHER, Onset:Unknown Diabetes Physical Exam Vital Signs - First Documented 09/11/19 22:41 Temp 35.8 Pulse 115 Resp 28 B/P (MAP) 133/85 (101) Pulse Ox 95 O2 Delivery Ambu Bag O2 Flow Rate 15.00 Capillary Refill : Less Than 3 Seconds Height: 5'6.00" Weight: 212lbs. 1.0oz. 96.487469zd; 33.00 BMI Method:Estimated General Appearance: WD/WN, severe distress, obese Eyes: Bilateral Eye Normal Inspection, Bilateral Eye PERRL, Bilateral Eye EOMI HEENT: PERRL/EOMI, normal ENT inspection, TMs normal, pharynx normal Neck: full range of motion, supple, normal inspection Respiratory: respiratory distress (severe), decreased breath sounds, accessory muscle use Cardiovascular: normal peripheral pulses, regular rate, rhythm, no edema, tachycardia Gastrointestinal: soft, no organomegaly Neurologic/Psychiatric: other (GCS 9 on presentation) Skin: normal color, warm/dry, ecchymosis (over the left angle of the mandible) Focused Exam Sepsis Stage: Septic Shock Possible Source: Pulmonary Lactate Level 09/11/19 22:50: Lactic Acid Level 2.12*H Time of Focused Exam: 01:04 Respiratory: Chest Non Tender, Decreased Breath Sounds, Respiratory Distress, Other (orotracheally intubated and ventilated mechanically) Cardiovascular: Regular Rate, Rhythm, No Edema, Normal Peripheral Pulses Capillary Refill: Less Than 3 Seconds Peripheral Pulses: 2+ Radial Pulses (R), 2+ Radial Pulses (L) Skin: normal color, warm/dry Lactic Acid Level Laboratory Tests Test 09/11/19 22:50 Lactic Acid Level 2.12 MMOL/L (0.50-2.00) *H Within 3hrs of presentation: Admin fluids, Admin ABX, Blood cultures prior to ABX's, Focus exam, Lactate level, Vasopressin therapy Procedures/Interventions Lumen: triple Central Line Procedure: betadine prep, sterile drapes applied, sterile dressing applied Position: internal jugular (R) Anesthesia: Lidocaine Volume Anesthetic (ccs): 3 Complications: none Post Position: sutured, good blood return, position confirmed w/ CXR Reason for Intubation: respiratory failure Date of ETT Placement: Sep 11, 2019 Time of ETT Placement: 23:00 Intubation Method: orotracheal Tube Size: 7.5 Medications: Etomidate (20 mg), Rocuronium (50 mg) Positive End Tide CO2: Yes Breath Sounds after Intubation: bilateral-equal Intubation Complications: no complications Post Intubation Xray: Yes It was decided the patient needed to be emergently intubated and when all the kit was established and her preparations were complete we gave her 20 mg of etomidate and 50 mg of rocuronium. The patient alerted and positioned and using a cane vision we easily watch the 7.5 ET tube pass the vocal cords. No emesis was witnessed. Patient tolerated procedure well. Equal lung sounds. Fogged tube. Capnography paper changed colors. Patient's oxygen sats never went below 95%. Progress/Results/Core Measures Suspected Sepsis Recent Fever Within 48 Hours: No Infection Criteria Present: None New/Unexplained Altered Menta: No Sepsis Screen: No Definite Risk SIRS Temperature: Pulse: 115 Respiratory Rate: 28 Laboratory Tests 09/11/19 22:50: White Blood Count 10.2 Blood Pressure 133 /85 Mean: 101 09/11/19 22:50: Lactic Acid Level 2.12*H Laboratory Tests 09/11/19 22:50: Creatinine 1.01, INR Comment 0.9, Platelet Count 224, Total Bilirubin 0.2 Results/Orders Lab Results Laboratory Tests Test 09/11/19 22:50 2/21/20 23:00 09/11/19 23:25 Range/Units White Blood Count 10.2 4.3-11.0 10^3/uL Red Blood Count 4.81 4.35-5.85 10^6/uL Hemoglobin 13.9 11.5-16.0 G/DL Hematocrit 48 35-52 % Mean Corpuscular Volume 99 80-99 FL Mean Corpuscular Hemoglobin 29 25-34 PG Mean Corpuscular Hemoglobin Concent 29 L 32-36 G/DL Red Cell Distribution Width 17.6 H 10.0-14.5 % Platelet Count 224 130-400 10^3/uL Mean Platelet Volume 9.6 7.4-10.4 FL Neutrophils (%) (Auto) 81 H 42-75 % Lymphocytes (%) (Auto) 14 12-44 % Monocytes (%) (Auto) 6 0-12 % Eosinophils (%) (Auto) 0 0-10 % Basophils (%) (Auto) 0 0-10 % Neutrophils # (Auto) 8.3 H 1.8-7.8 X 10^3 Lymphocytes # (Auto) 1.4 1.0-4.0 X 10^3 Monocytes # (Auto) 0.6 0.0-1.0 X 10^3 Eosinophils # (Auto) 0.0 0.0-0.3 10^3/uL Basophils # (Auto) 0.0 0.0-0.1 10^3/uL Prothrombin Time 12.6 12.2-14.7 SEC INR Comment 0.9 0.8-1.4 Activated Partial Thromboplast Time 21 L 24-35 SEC Sodium Level 138 135-145 MMOL/L Potassium Level 5.3 H 3.6-5.0 MMOL/L Chloride Level 86 L 98-107 MMOL/L Carbon Dioxide Level 39 H 21-32 MMOL/L Anion Gap 13 5-14 MMOL/L Blood Urea Nitrogen 10 7-18 MG/DL Creatinine 1.01 0.60-1.30 MG/DL Estimat Glomerular Filtration Rate 57 BUN/Creatinine Ratio 10 Glucose Level 363 H 70-105 MG/DL Lactic Acid Level 2.12 *H 0.50-2.00 MMOL/L Calcium Level 9.8 8.5-10.1 MG/DL Corrected Calcium 10.0 8.5-10.1 MG/DL Total Bilirubin 0.2 0.1-1.0 MG/DL Aspartate Amino Transf (AST/SGOT) 12 5-34 U/L Alanine Aminotransferase (ALT/SGPT) 9 0-55 U/L Alkaline Phosphatase 133 40-136 U/L Troponin I 0.111 H <0.028 NG/ML Total Protein 8.4 H 6.4-8.2 GM/DL Albumin 3.7 3.2-4.5 GM/DL Urine Color YELLOW Urine Clarity SL CLOUDY Urine pH 6.0 5-9 Urine Specific Kirk >=1.030 1.016-1.022 Urine Protein 2+ H NEGATIVE Urine Glucose (UA) 2+ H NEGATIVE Urine Ketones NEGATIVE NEGATIVE Urine Nitrite POSITIVE H NEGATIVE Urine Bilirubin NEGATIVE NEGATIVE Urine Urobilinogen 0.2 < = 1.0 MG/DL Urine Leukocyte Esterase NEGATIVE NEGATIVE Urine RBC (Auto) 1+ H NEGATIVE Urine RBC 2-5 H /HPF Urine WBC 5-10 H /HPF Urine Squamous Epithelial Cells 10-25 H /HPF Urine Crystals NONE /LPF Urine Bacteria LARGE H /HPF Urine Casts NONE /LPF Urine Mucus NEGATIVE /LPF Urine Culture Indicated CULTURE PENDING Blood Gas Puncture Site RIGHT RADIAL Blood Gas Patient Temperature 35.8 Arterial Blood pH 7.33 *L 7.37-7.43 Arterial Blood Partial Pressure CO2 81 *H 35-45 MMHG Arterial Blood Partial Pressure O2 60 L 79-93 MMHG Arterial Blood HCO3 42 *H 23-27 MMOL/L Arterial Blood Total CO2 45.0 H 21.0-31.0 MMOL/L Arterial Blood Oxygen Saturation 91 L 94-100 % Arterial Blood Base Excess 15.6 H -2.5-2.5 MMOL/L Da Test YES-POS Blood Gas Ventilator Setting YES Blood Gas Inspired Oxygen 60% Micro Results Microbiology 09/11/19 Influenza Types A,B Antigen (BUSHRA) - Final, Complete My Orders Orders - AJ WETZEL Iv 1000 Ml (Sodium Chloride 0.9%) (09/11/19 22:41) Chest 1 View, Ap/Pa Only (09/11/19 22:59) Propofol Drip (Icu) (Diprivan Drip (Icu) (09/11/19 23:02) Cbc With Automated Diff (09/11/19 23:05) Comprehensive Metabolic Panel (09/11/19 23:05) Blood Culture (09/11/19 23:05) Sputum Culture (09/11/19 23:05) Urinalysis (09/11/19 23:05) Urine Culture (09/11/19 23:05) Protime With Inr (09/11/19 23:05) Partial Thromboplastin Time (09/11/19 23:05) Ed Iv/Invasive Line Start (09/11/19 23:05) Ed Iv/Invasive Line Start (09/11/19 23:05) Ekg Tracing (09/11/19 23:05) Troponin I (09/11/19 23:05) Vital Signs Adult Sepsis Patie Q15M (09/11/19 23:05) O2 (09/11/19 23:05) Remove Rings In Anticipation O (09/11/19 23:05) Lactic Acid Analyzer (09/11/19 23:05) Influenza A And B Antigens (09/11/19 23:05) Ns Iv 1000 Ml (Sodium Chloride 0.9%) (09/11/19 23:05) Cefepime Injection (Maxipime Injection) (09/11/19 23:15) Vancomycin Injection (Vancomycin Injecti (09/11/19 23:15) Pharmacy To Dose (Pharmacy To Dose) (09/11/19 23:15) Ed Iv/Invasive Line Start (09/11/19 23:05) Ns Iv 1000 Ml (Sodium Chloride 0.9%) (09/11/19 23:05) Propofol Drip (Icu) (Diprivan Drip (Icu) (09/11/19 23:15) Albuterol/Ipra Inhalation Soln (Duoneb I (09/11/19 23:15) Svn Small Volume Nebulizer (09/11/19 23:05) Methylprednisolone Sod Succ (Solu-Medrol (09/11/19 23:15) Arterial Blood Gas (09/11/19 23:24) Dexmedetomidine 250 Ml Drip (Precedex Dr (09/11/19 23:48) Dexmedetomidine 250 Ml Drip (Precedex Dr (09/12/19 00:00) Insulin (Regular) Human (Humulin R (Per (09/12/19 00:15) Medications Given in ED Current Medications Medications Dose Ordered Sig/Jeana Route Start Time Stop Time Status Last Admin Dose Admin Cefepime HCl 1000 mg/Sterile Water 10 ml @ 200 mls/hr ONCE ONCE IV 09/11/19 23:15 09/11/19 23:17 DC 09/11/19 23:33 200 MLS/HR Insulin Human Regular 5 unit ONCE ONCE SC 09/12/19 00:15 09/12/19 00:16 DC 09/12/19 00:14 5 UNIT Methylprednisolone Sodium Succinate 125 mg ONCE ONCE IVP 09/11/19 23:15 09/11/19 23:16 DC 09/11/19 23:33 125 MG Vancomycin HCl 1000 mg/Sodium Chloride 250 ml @ 250 mls/hr ONCE ONCE IV 09/11/19 23:15 09/12/19 00:14 DC 09/11/19 23:33 250 MLS/HR Vital Signs/I&O 09/11/19 09/11/19 09/11/19 09/12/19 22:41 23:10 23:30 00:11 Temp 35.8 36.0 Pulse 115 117 106 93 Resp 28 20 B/P (MAP) 133/85 (101) 174/103 91/68 103/67 Pulse Ox 95 99 O2 Delivery Ambu Bag Mechanical Ventilator O2 Flow Rate 15.00 09/12/19 00:00 Intake Total 1010 ml Balance 1010 ml Capillary Refill : Less Than 3 Seconds Blood Pressure Mean: 101 Progress Note #1: Time: 23:18 Progress Note The decision was made early to intubate the patient as she was not succeeding on the CPAP provided by EMS. We'll give her breathing treatment and obtain an ABG as well as a septic workup. Suspect pneumonia versus COPD exacerbation. Influenza swab. We'll cover her with cefepime and vancomycin as well as 125 mg Solu-Medrol. Progress Note #2: Time: 01:49 Progress Note Patient's blood pressure continued to dwindle after antibiotics and intubation despite 3 L of fluids total which is greater than 30 mL/kg. Levophed was initiated and a central line was placed. Patient's map was maintained above 65 easily. Throughout her stay family was constantly updated from the family room and allowed to visit and then went up with the patient to the ICU. ECG Initial ECG Impression Date: Sep 11, 2019 Initial ECG Impression Time: 23:32 Initial ECG Rate: 101 Initial ECG Rhythm: S.Tach Initial ECG Intervals: Normal Initial ECG Impression: Normal, Nonspecific Changes Comment Sinus tachycardic without clinically relevant ST elevation or depression. Diagnostic Imaging Diagonstic Imaging: Xray Plain Films/CT/US/NM/MRI: chest Comments Chronic scarring without definite infiltrate. Reviewed: Reviewed by Me Diagonstic Imaging: Xray Plain Films/CT/US/NM/MRI: chest Comments Satisfactory placement of ET tube about 1.5 cm above the joi. Orogastric tube noted to be in good placement. Central catheter line noted overlying shadow of the right internal jugular terminating over the shadow of the superior vena cava superior to the right atria. Crossing the midline. No evidence of pneumothorax. Reviewed: Reviewed by Me Departure Communication (Admissions) Time/Spoke to Admitting Phy: 01:01 Discussed case lab imaging findings and EKG with Dr. Bazzi and she agrees to admit the patient the ICU. Impression Primary Impression: Acute on chronic respiratory failure with hypoxia and hypercapnia Additional Impressions: COPD exacerbation Pneumonia Qualified Codes: J18.9 - Pneumonia, unspecified organism Septic shock Disposition: ADMITTED INPATIENT Condition: Critical Admissions Decision to Admit Reason: Admit from ER (General) Decision to Admit/Date: Sep 12, 2019 Time/Decision to Admit Time: 00:01 Departure-Patient Inst. Referrals: [facility] (PCP/Family) Primary Care Physician AJ WETZEL Sep 11, 2019 23:17
[2019-09-11 23:19] LABS: BASOPHILS % (AUTO) 0 % (0-10); EOSINOPHILS % (AUTO) 0 % (0-10); HEMATOCRIT 48 % (35-52); HEMOGLOBIN 13.9 G/DL (11.5-16.0); LYMPHOCYTES # (AUTO) 1.4 X 10^3 (1.0-4.0); LYMPHOCYTES % (AUTO) 14 % (12-44); MEAN CORPUSCULAR HEMOGLOBIN 29 PG (25-34); MEAN CORPUSCULAR HGB CONC 29 G/DL (32-36); MEAN CORPUSCULAR VOLUME 99 FL (80-99); MEAN PLATELET VOLUME 9.6 FL (7.4-10.4); MONOCYTES # (AUTO) 0.6 X 10^3 (0.0-1.0); MONOCYTES % (AUTO) 6 % (0-12); NEUTROPHILS # (AUTO) 8.3 X 10^3 (1.8-7.8); NEUTROPHILS % (AUTO) 81 % (42-75); PLATELET COUNT 224 10^3/uL (130-400); RED CELL DISTRIBUTION WIDTH 17.6 % (10.0-14.5); WHITE BLOOD COUNT 10.2 10^3/uL (4.3-11.0)
[2019-09-11 23:21] LABS: BILIRUBIN,URINE NEGATIVE (NEGATIVE); CLARITY,URINE SL CLOUDY; COLOR,URINE YELLOW; GLUCOSE, URINE (UA) 2+ (NEGATIVE); KETONES,URINE NEGATIVE (NEGATIVE); LEUKOCYTE ESTERASE ,URINE NEGATIVE (NEGATIVE); NITRITE,URINE POSITIVE (NEGATIVE); PROTEIN,URINE 2+ (NEGATIVE)
[2019-09-11 23:23] LABS: INR 0.9 (0.8-1.4); PROTHROMBIN TIME PATIENT 12.6 SEC (12.2-14.7)
[2019-09-11 23:32] LABS: ALBUMIN 3.7 GM/DL (3.2-4.5); BILIRUBIN,TOTAL 0.2 MG/DL (0.1-1.0); CALCIUM 9.8 MG/DL (8.5-10.1); CREATININE SERUM 1.01 MG/DL (0.60-1.30); POTASSIUM 5.3 MMOL/L (3.6-5.0); TOTAL PROTEIN 8.4 GM/DL (6.4-8.2)
[2019-09-11 23:33] LABS: ABG BASE EXCESS 15.6 MMOL/L (-2.5-2.5); ABG OXYGEN SATURATION 91 % (94-100); ABG PO2 60 MMHG (79-93)
[2019-09-11 23:36] LABS: ABG PCO2 81 MMHG (35-45); ABG PH 7.33 (7.37-7.43)
[2019-09-11 23:37] LABS: ALLENS TEST YES-POS; INSPIRED O2 60%; PATIENT TEMP 35.8; VENTILATOR YES
[2019-09-11 23:41] LABS: BACTERIA,URINE LARGE /HPF
[2019-09-11] MEDS ORDERED: DexMEDEtomidine 250 ML DRIP 250 ML IV STA (23:48)
[2019-09-12] VITALS (32 sets, daily range): BP systolic 107–150; BP diastolic 54–83
[2019-09-12] MEDS: DexMEDEtomidine 250 ML DRIP 250 ML IV SCH ×5 (00:11→16:21)
[2019-09-12] MEDS ORDERED: inSUlin (REGULAR) HUMAN 1 UNIT/0.01 ML (CHARGE PER UNIT) SC ONE (00:15)
[2019-09-12] MEDS ORDERED: NS IV 1000 ML 1,000 ML IV SCH ×2 (00:29→06:45)
[2019-09-12] MEDS ORDERED: MIDAZOLAM 5 MG/5 ML (VERSED) VIAL ONE (00:34)
[2019-09-12] MEDS: NOREPINEPHRINE 4 MG/250 ML 250 ML IV SCH ×4 (01:03→22:08)
[2019-09-12] MEDS ORDERED: 1/2 NS IV SOLUTION 1,000 ML IV ONE (01:39)
[2019-09-12] MEDS ORDERED: VANCOMYCIN 2000 MG/NS 500 ML IVPB IV SCH ×2 (02:00)
[2019-09-12] MEDS ORDERED: 1/2 NS IV SOLUTION 1,000 ML IV SCH (02:15)
[2019-09-12] MEDS ORDERED: ONDANSETRON 4 MG/2 ML (SDV) Z0FRAN IVP PRN (02:15)
[2019-09-12] MEDS ORDERED: VANCOMYCIN 1 GM/NS 250 ML IVPB IV SCH ×2 (02:15)
[2019-09-12] MEDS ORDERED: VASOPRESSIN 20 UNITS/NS 100 ML DRIP IV SCH ×2 (02:15)
[2019-09-12] MEDS: PROPOFOL DRIP (ICU) 100 ML IV SCH ×5 (02:30→21:23)
[2019-09-12] MEDS ORDERED: RT-ALBUTEROL/IPRATROPIUM 3 ML (DUONEB) VIAL INH PRN (02:45)
[2019-09-12 03:51] LABS: BASOPHILS % (AUTO) 0 % (0-10); EOSINOPHILS % (AUTO) 0 % (0-10); HEMATOCRIT 42 % (35-52); HEMOGLOBIN 12.7 G/DL (11.5-16.0); LYMPHOCYTES # (AUTO) 0.7 X 10^3 (1.0-4.0); LYMPHOCYTES % (AUTO) 6 % (12-44); MEAN CORPUSCULAR HEMOGLOBIN 29 PG (25-34); MEAN CORPUSCULAR HGB CONC 30 G/DL (32-36); MEAN CORPUSCULAR VOLUME 98 FL (80-99); MEAN PLATELET VOLUME 9.5 FL (7.4-10.4); MONOCYTES # (AUTO) 0.1 X 10^3 (0.0-1.0); MONOCYTES % (AUTO) 1 % (0-12); NEUTROPHILS # (AUTO) 9.7 X 10^3 (1.8-7.8); NEUTROPHILS % (AUTO) 93 % (42-75); PLATELET COUNT 203 10^3/uL (130-400); RED CELL DISTRIBUTION WIDTH 17.4 % (10.0-14.5); WHITE BLOOD COUNT 10.5 10^3/uL (4.3-11.0)
[2019-09-12 04:11] LABS: ABG BASE EXCESS 13.6 MMOL/L (-2.5-2.5); ABG OXYGEN SATURATION 95 % (94-100); ABG PCO2 63 MMHG (35-45); ABG PO2 71 MMHG (79-93)
[2019-09-12 04:13] LABS: ALLENS TEST YES-POS; INSPIRED O2 50%; PATIENT TEMP 36.8; VENTILATOR YES
[2019-09-12 04:15] LABS: ALANINE AMINOTRANSFERASE 8 U/L (0-55); ALKALINE PHOSPHATASE 109 U/L (40-136); BILIRUBIN,TOTAL 0.4 MG/DL (0.1-1.0); BUN/CREATININE RATIO 14; CALCIUM 8.6 MG/DL (8.5-10.1); CARBON DIOXIDE 32 MMOL/L (21-32); CHLORIDE 94 MMOL/L (98-107); GFR ESTIMATED > 60; GLUCOSE 301 MG/DL (70-105); MAGNESIUM 1.7 MG/DL (1.6-2.4); PHOSPHORUS 1.8 MG/DL (2.3-4.7); POTASSIUM 5.5 MMOL/L (3.6-5.0); SODIUM 136 MMOL/L (135-145); TOTAL PROTEIN 6.9 GM/DL (6.4-8.2)
[2019-09-12] MEDS ORDERED: methylPREDNISolone 125 MG (Solu-MEDROL) VIAL IV SCH (06:00)
--- NOTE | 2019-09-12 06:32 | Pulmonary Consultation ---
History of Present Illness History of Present Illness Date Seen by Provider: Sep 12, 2019 Time Seen by Provider: 06:25 Date of Admission History of Present Illness 54yo with hx of severe oxygen dependent COPD on 3 liters of oxygen, JORGE L presented to ED via EMS secondary to worsening SOB and wheezing. Pt was found to have acute respiratory distress, and was minimally responsive in the ED. Her Sp02 was in the 60's. Pt was intubated and transferred to ICU. No mention of fever. August 22 days ago she was seen by this provider and put on linezolid and Augmentin for parotiditis. Allergies and Home Medications Allergies Coded Allergies: NKANo Known Allergies (Unverified Allergy, Mild, 05/01/09) Home Medications Acetaminophen 500 Mg Tablet, 1,500 MG PO Q8H PRN for PAIN-MILD (1-4), (Reported) Albuterol Sulfate 1 Puff Puff, 2 PUFF INH Q6H PRN for SHORTNESS OF BREATH, (Reported) Albuterol Sulfate 2.5 Mg/3 Ml Vial.neb, 3 ML NEB Q4-6 H PRN for SHORTNESS OF BREATH, (Reported) Aspirin 81 Mg Tab.chew, 81 MG PO DAILY, (Reported) Atorvastatin Calcium 10 Mg Tablet, 10 MG PO DAILY, (Reported) Famotidine 20 Mg Tablet, 20 MG PO BID, (Reported) Fluticasone Propion/Salmeterol 1 Each Blst.w.dev, 1 PUFF INH BID, (Reported) Fluticasone Propionate 16 Gm [place].susp, 2 SPRAY NS DAILY PRN for CONGESTION, (Reported) Furosemide 40 Mg Tablet, 40 MG PO DAILY, (Reported) Glipizide 5 Mg Tablet, 10 MG PO DAILY, (Reported) TAKES 2 (5MG) TABS Glipizide 5 Mg Tablet, 5 MG PO HS, (Reported) Hydrocodone Bit/Acetaminophen 1 Tab Tab, 1 EACH PO Q4-6HR PRN for PAIN-MODERATE Prescribed by: AJ WETZEL on 08/22/19 1630 Levothyroxine Sodium 175 Mcg Tablet, 175 MCG PO DAILY, (Reported) Linezolid 600 Mg Tablet, 600 MG PO BID Prescribed by: AJ WETZEL on 08/22/19 1630 Loratadine 10 Mg Tablet, 10 MG PO DAILY PRN for AALLERGY SYMPTOMS, (Reported) Metformin HCl 500 Mg Tablet, 500 MG PO BID, (Reported) Metoprolol Succinate 50 Mg Tab.er.24h, 50 MG PO DAILY Prescribed by: CLAIRE BAZZI on 07/23/19 1035 Montelukast Sodium 10 Mg Tablet, 10 MG PO HS, (Reported) [place]-3/Dha/Epa/Fish Oil 1 Each Capsule, 2,000 MG PO DAILY, (Reported) Paroxetine HCl 40 Mg Tablet, 40 MG PO 1500, (Reported) Potassium Chloride 10 Meq Tab.er.prt, 10 MEQ PO DAILY, (Reported) Prednisone 10 Mg Tab.ds.pk, 10 MG PO DAILY Take 6 tabs(60mg)daily,decrease by 1 tab(10MG)daily. Prescribed by: CLAIRE BAZZI on 07/23/19 1035 Tiotropium [place] 1 Inh Aerp, 1 CAP INH 1300, (Reported) Past Cfdzuhw-Xzbhxf-Pkdfyu Hx Patient Social History Alcohol Use: Denies Use Recreational Drug Use: No Smoking Status: Current Everyday Smoker Type Used: Cigarettes 2nd Hand Smoke Exposure: Yes Recent Foreign Travel: No Contact w/Someone Who Travel: No Recent Infectious Disease Expo: No Recent Hopitalizations: No Physical Abuse: No Sexual Abuse: No Mistreated: No Fear: No Immunizations Up To Date Tetanus Booster (TDap): Unknown PED Vaccines UTD: No Date of Pneumonia Vaccine: Aug 22, 2018 Date of Influenza Vaccine: Jun 12, 2019 Seasonal Allergies Seasonal Allergies: Yes Past Medical History Surgeries: Yes Respiratory: Yes (O2 DEPENDENT AT 4L/NC) Pneumonia, COPD Currently Using CPAP: No Currently Using BIPAP: No Cardiac: Yes High Cholesterol, Hypertension Neurological: No : No 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 1.0oz. 96.323444ha; 35.22 BMI Method:Estimated Exam Exam Vital Signs Date Time Temp Pulse Resp B/P (MAP) Pulse Ox O2 Delivery O2 Flow Rate FiO2 09/12/19 06:00 73 16 133/76 (95) 93 Mechanical Ventilator 50.00 09/12/19 05:00 75 16 125/75 (92) 93 Mechanical Ventilator 50.00 09/12/19 04:00 36.8 09/12/19 04:00 77 15 114/74 (87) 93 Mechanical Ventilator 50.00 09/12/19 04:00 Mechanical Ventilator 50 09/12/19 03:00 73 16 120/76 (91) 93 Mechanical Ventilator 50.00 09/12/19 02:45 71 15 119/76 (90) 94 Mechanical Ventilator 50.00 09/12/19 02:40 71 16 96 50 09/12/19 02:30 71 15 118/76 (90) 96 Mechanical Ventilator 60.00 09/12/19 02:15 71 16 107/74 (85) 95 Mechanical Ventilator 60.00 09/12/19 02:00 71 16 137/83 (101) 95 Mechanical Ventilator 60.00 09/12/19 01:45 36.7 73 15 138/80 (99) 93 Mechanical Ventilator 60.00 09/12/19 01:45 74 09/12/19 01:30 Mechanical Ventilator 60 09/12/19 01:17 36.0 73 18 141/90 99 Mechanical Ventilator 09/12/19 01:03 79 83/56 09/12/19 00:11 93 103/67 09/11/19 23:30 36.0 106 20 91/68 99 Mechanical Ventilator 09/11/19 23:10 117 174/103 09/11/19 22:41 35.8 115 28 133/85 (101) 95 Ambu Bag 15.00 I & O 09/12/19 07:00 Intake Total 3260 ml Output Total 150 ml Balance 3110 ml Height & Weight Height: 5'6.00" Weight: 212lbs. 1.0oz. 96.735736ir; 35.22 BMI Method:Estimated General Appearance: Other (sedated on vent) Respiratory: Chest Non Tender, Decreased Breath Sounds, Respiratory Distress, Other (orotracheally intubated and ventilated mechanically) Cardiovascular: Regular Rate, Rhythm, No Edema, Normal Peripheral Pulses Capillary Refill: Less Than 3 Seconds Peripheral Pulses: 2+ Radial Pulses (R), 2+ Radial Pulses (L) Gastrointestinal: soft, no organomegaly Results Lab Laboratory Tests 09/11/19 22:50 09/12/19 03:38 Assessment/Plan Assessment/Plan Acute on chronic respiratory failure with hypoxia and hypercapnia -Continue ventilator care -Change vent to 24/400/5 -Change IVF to NS COPD exacerbation -Check CT of chest with contrast -SVNs -Solumedrol Septic shock -levophed Pneumonia -Continue cefepime and Vanco -CHeck CTA of chest -Pt has no leukocytosis or fever -Influenza is neg -MRSA swab is penidng Hypothyroid -restart synthroid DM -hold home metformin -Continue SSI and accu check Q6 Hyperkalemia -Will give insuline, d 50, bicarb Hypophos -replace Septic shock Hx of MRSA in urine -Continue vanco and cefepime for now WESLEY ALMAGUER DO Sep 12, 2019 06:32
[2019-09-12] MEDS ORDERED: SODIUM BICARB 8.4% 50 MEQ/50 ML VIAL ONE (06:39)
[2019-09-12] MEDS ORDERED: DEXTROSE 50% 50 ML (IMS) SYR ONE (06:40)
[2019-09-12] MEDS ORDERED: NS IV 1000 ML 1,000 ML ONE (06:40)
[2019-09-12] MEDS ORDERED: inSUlin (REGULAR) HUMAN 1 UNIT/0.01 ML (CHARGE PER UNIT) ONE (06:41)
[2019-09-12] MEDS: RT-ALBUTEROL/IPRATROPIUM 3 ML (DUONEB) VIAL INH SCH ×5 (06:43→22:20)
[2019-09-12] MEDS ORDERED: inSUlin (REGULAR) HUMAN 1 UNIT/0.01 ML (CHARGE PER UNIT) IV ONE (06:45)
[2019-09-12] MEDS ORDERED: morphine INJ 10 MG/ML 1ML (SYR OR VIAL) IVP PRN (06:45)
[2019-09-12] MEDS ORDERED: SODIUM PHOSPHATE INJ 30 MM in NS (IVPB) 250 ML IV ONE (06:45)
[2019-09-12] MEDS ORDERED: CALCIUM GLUC. 10% 4.65 MEQ/10 ML VIAL IV ONE (06:45)
[2019-09-12] MEDS ORDERED: SODIUM BICARB 8.4% 50 MEQ/50 ML (ABBOTT) SYR IV ONE (06:45)
[2019-09-12] MEDS ORDERED: DEXTROSE 50% 50 ML (IMS) SYR IV ONE (06:45)
[2019-09-12] MEDS: CEFEPIME 1,000 MG/SWFI 10 ML IV PUSH IV SCH ×6 (06:52→17:34)
--- NOTE | 2019-09-12 07:04 | NUR ---
Vancomycin - Start Vancomycin 1gm every 8 hours. Trough scheduled for 09/13 @ 1500.
[2019-09-12] MEDS ORDERED: NS (IVPB) 50 ML ONE (07:10)
[2019-09-12] MEDS: MAGNESIUM 1 GM/100 ML IVPB 100 ML IV SCH ×2 (07:24→08:07)
[2019-09-12] MEDS: LEVOTHYROXINE 75 MCG (LEVOTHROID) TABLET PO SCH (07:24)
[2019-09-12] MEDS: LEVOTHYROXINE 100 MCG (LEVOTHROID) TAB PO SCH (07:25)
--- NOTE | 2019-09-12 07:29 | Diagnostic Imaging Report ---
INDICATION: Central venous catheter assessment AP view of the chest is obtained with comparison made to study of 09/11/2019. Endotracheal tube remains in place with tip at the level of the thoracic inlet. Nasogastric tube passes below the diaphragm. There is a right jugular central venous catheter with tip projecting over the region of innominate vein. No pneumothorax is identified. There is slight perihilar and basilar atelectasis. IMPRESSION: Slight bilateral atelectasis without evidence of complication related to catheter placement. Dictated by: Dictated on workstation # [id number]
--- NOTE | 2019-09-12 07:32 | Diagnostic Imaging Report ---
INDICATION: Respiratory failure Single AP view of the chest is obtained Overall heart size and pulmonary vascularity remain at the upper limits of normal without evidence of pneumothorax, consolidation or significant pleural fluid. There has been placement of endotracheal tube with tip just below the thoracic inlet and just above the joi. Nasogastric tube passes below the diaphragm. IMPRESSION: Heart size and pulmonary vascularity are at the upper limits of normal. Endotracheal tube reaches the mid trachea. Dictated by: Dictated on workstation # [id number]
[2019-09-12] MEDS: NS IV 1000 ML 1,000 ML IV SCH ×3 (08:08→19:45)
[2019-09-12] MEDS: VANCOMYCIN 1 GM/NS 250 ML IVPB IV SCH ×4 (08:09→16:40)
[2019-09-12 08:34] LABS: ABG BASE EXCESS 13.3 MMOL/L (-2.5-2.5); ABG OXYGEN SATURATION 93 % (94-100); ABG PCO2 67 MMHG (35-45); ABG PH 7.38 (7.37-7.43); ABG PO2 61 MMHG (79-93); ABG TCO2 41.2 MMOL/L (21.0-31.0)
[2019-09-12 08:36] LABS: ALLENS TEST POSITIVE
[2019-09-12 08:38] LABS: INSPIRED O2 50%; VENTILATOR YES
[2019-09-12 08:39] LABS: PATIENT TEMP 36.4
[2019-09-12] MEDS ORDERED: SUCCINYLCHOLINE INJ 100 MG/5 ML SYR INJ ONE (08:44)
[2019-09-12] MEDS ORDERED: ETOMIDATE IV SOLN 20 MG/10 ML VIAL IV ONE (08:44)
[2019-09-12] MEDS: ENOXAPARIN 40 MG/0.4 ML (LOVENOX) SYR SC SCH (09:31)
--- NOTE | 2019-09-12 11:18 | History & Physical-Hospitalist ---
History of Present Illness HPI/Chief Complaint CC: Respiratory failure now VDRF HPI: This is a 54yoWF clinic patient of [facility] who presented to the ER and was intubated shortly thereafter. Patient remains intubated but pressor therapy now DC and troponin noted to be slightly elevated but trend is donw. Potassium 5.5 and given calcium gluconate and insulin. Output good. Source: RN/MD Exam Limitations: clinical condition Date Seen 09/12/19 Time Seen by a Provider: 10:00 Attending Physician Leigha Lemus DO [facility] [place] [facility] Referring Physician Date of Admission Sep 12, 2019 at 00:15 Home Medications & Allergies Home Medications Reviewed patient Home Medication Reconciliation performed by pharmacy medication reconciliations radiation protection technician and/or nursing. Patients Allergies have been reviewed. Allergies Allergies Coded Allergies NKANo Known Allergies (Unverified Allergy, Mild, 05/01/09) Past Jagzuqp-Zwsfid-Gtimvy Hx Past Med/Social Hx: Reviewed Nursing Past Med/Soc Hx, Reviewed and Corrections made Patient Social History Marrital Status: single Employed/Student: unemployed Alcohol Use: Denies Use Recreational Drug Use: No Smoking Status: Current Everyday Smoker Type Used: Cigarettes 2nd Hand Smoke Exposure: Yes Recent Foreign Travel: No Contact w/other who traveled: No Recent Hopitalizations: No Recent Infectious Disease Expo: No Immunizations Up To Date Tetanus Booster (TDap): Unknown Pediatric: No Date of Pneumonia Vaccine: Aug 22, 2018 Date of Influenza Vaccine: Jun 12, 2019 Seasonal Allergies Seasonal Allergies: Yes Past Medical History Respiratory: COPD, Emphysema, Pneumonia Currently Using CPAP: No Currently Using BIPAP: No Cardiac: High Cholesterol, Hypertension : No Sexually Transmitted Disease: No HIV/AIDS: No 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 Disorders: Denies Menopausal Endocrine: Hypothyroidsim, Diabetes, Non-Insulin dep Loss of Vision: Denies Hearing Impairment: Denies Psychosocial: Anxiety, Depression History of Blood Disorders: No Adverse Reaction to Blood Gonzalez: No Family History Cardiovascular disease 19 MOTHER, Onset:Unknown Diabetes mellitus 19 MOTHER, Onset:Unknown Diabetes Review of Systems ROS-Unable to Obtain: intubated Constitutional: see HPI Physical Exam Physical Exam Vital Signs Vital Signs - First Documented 09/11/19 09/12/19 22:41 01:30 Temp 35.8 Pulse 115 Resp 28 B/P (MAP) 133/85 (101) Pulse Ox 95 O2 Delivery Ambu Bag O2 Flow Rate 15.00 FiO2 60 Capillary Refill : Less Than 3 Seconds Height, Weight, BMI Height: 5'6.00" Weight: 212lbs. 1.0oz. 96.860859hd; 35.22 BMI Method:Estimated General Appearance: Chronically ill, Obese, Other (intubated) Respiratory: No Accessory Muscle Use, No Respiratory Distress, Decreased Breath Sounds Cardiovascular: Regular Rate, Rhythm Results Results/Procedures Labs Laboratory Tests 09/11/19 22:50 09/12/19 03:38 Patient resulted labs reviewed. Assessment/Plan Admission Diagnosis Assessment: Acute on chronic respiratory failure with hypoxia and hypercapnia COPD exacerbation-CT chest and IV steroids Septic shock Pneumonia Hypothyroidism DM Hyperkalemia Plan: IV abx Vent Appreciate Dr Silva Admission Status: Inpatient Order (span 2 midnights) Reason for Inpatient Admission: VDRF Diagnosis/Problems Diagnosis/Problems (1) Acute on chronic respiratory failure with hypoxia and hypercapnia Status: Acute (2) COPD exacerbation Status: Acute (3) Pneumonia Status: Acute Qualifiers: Pneumonia type: due to unspecified organism Laterality: unspecified laterality Lung location: unspecified part of lung Qualified Codes: J18.9 - Pneumonia, unspecified organism (4) Septic shock Status: Acute Clinical Quality Measures DVT/VTE Risk/Contraindication: Risk Factor Score Per Nursin RFS Level Per Nursing on Admit: 4+=Very High LEIGHA LEMUS DO Sep 12, 2019 11:18
--- NOTE | 2019-09-12 11:50 | Diagnostic Imaging Report ---
PROCEDURE: CT angiography of the chest with contrast. TECHNIQUE: Multiple contiguous axial images were obtained through the chest after uneventful bolus administration of intravenous contrast. 3D reconstructed CTA MIP acquisitions were also performed. Auto Exposure Controls were utilized during the CT exam to meet ALARA standards for radiation dose reduction. INDICATION: Chest pain and shortness of breath. FINDINGS: Pulmonary arterial branches are widely patent. No filling defect or PE. The thoracic aorta is patent and nonaneurysmal. Endotracheal tube tip is above the joi. Atherosclerotic aorta is patent and nonaneurysmal. There is no pleural or pericardial effusion. There is lower lobe partial atelectasis. No rishi alveolar consolidation. The lungs showed features of centrilobular emphysema without blebs, bullous disease or rishi air cysts. No soft tissue density, lung mass. No thoracic lymphadenopathy. There is some very mild subsegmental atelectasis in the right lung base, in the caudal right middle lobe as well as the posterior sulcal dependent lower lobes. IMPRESSION: COPD. Mild zones of atelectasis. Negative for PE. Nonaneurysmal atherosclerosis. Dictated by: Dictated on workstation # [id number]
[2019-09-12] MEDS: inSUlin ASPART (NovoLOG) 1 UNIT/0.01 ML (CHARGE PER UNIT) SC SCH ×2 (11:59→17:34)
[2019-09-12] MEDS: methylPREDNISolone 40 MG/ML (Solu-MEDROL) VIAL IV SCH ×2 (11:59→17:34)
[2019-09-13] VITALS (31 sets, daily range): BP systolic 134–166; BP diastolic 66–86
[2019-09-13] MEDS: methylPREDNISolone 40 MG/ML (Solu-MEDROL) VIAL IV SCH ×4 (00:43→17:38)
[2019-09-13] MEDS: CEFEPIME 1,000 MG/SWFI 10 ML IV PUSH IV SCH ×8 (00:43→17:41)
[2019-09-13] MEDS: inSUlin ASPART (NovoLOG) 1 UNIT/0.01 ML (CHARGE PER UNIT) SC SCH ×4 (00:48→17:38)
[2019-09-13] MEDS: VANCOMYCIN 1 GM/NS 250 ML IVPB IV SCH ×4 (00:48→08:01)
[2019-09-13] MEDS: PROPOFOL DRIP (ICU) 100 ML IV SCH ×6 (02:32→22:59)
[2019-09-13] MEDS: NS IV 1000 ML 1,000 ML IV SCH ×5 (02:33→22:58)
[2019-09-13] MEDS: DexMEDEtomidine 250 ML DRIP 250 ML IV SCH ×5 (02:33→22:58)
[2019-09-13] MEDS: RT-ALBUTEROL/IPRATROPIUM 3 ML (DUONEB) VIAL INH SCH ×5 (02:47→18:57)
[2019-09-13 03:27] LABS: ABG BASE EXCESS 11.7 MMOL/L (-2.5-2.5); ABG OXYGEN SATURATION 93 % (94-100); ABG PCO2 63 MMHG (35-45); ABG PH 7.39 (7.37-7.43); ABG PO2 78 MMHG (79-93); ABG TCO2 38.7 MMOL/L (21.0-31.0); BASOPHILS % (AUTO) 0 % (0-10); EOSINOPHILS % (AUTO) 0 % (0-10); HEMATOCRIT 40 % (35-52); HEMOGLOBIN 12.2 G/DL (11.5-16.0); LYMPHOCYTES # (AUTO) 0.6 X 10^3 (1.0-4.0); LYMPHOCYTES % (AUTO) 8 % (12-44); MEAN CORPUSCULAR HEMOGLOBIN 29 PG (25-34); MEAN CORPUSCULAR HGB CONC 30 G/DL (32-36); MEAN CORPUSCULAR VOLUME 96 FL (80-99); MEAN PLATELET VOLUME 9.3 FL (7.4-10.4); MONOCYTES # (AUTO) 0.3 X 10^3 (0.0-1.0); MONOCYTES % (AUTO) 4 % (0-12); NEUTROPHILS # (AUTO) 6.3 X 10^3 (1.8-7.8); NEUTROPHILS % (AUTO) 88 % (42-75); PLATELET COUNT 173 10^3/uL (130-400); RED CELL DISTRIBUTION WIDTH 16.8 % (10.0-14.5); WHITE BLOOD COUNT 7.1 10^3/uL (4.3-11.0)
[2019-09-13 03:28] LABS: ALLENS TEST YES-POS; PATIENT TEMP 38.3; VENTILATOR YES
[2019-09-13 03:47] LABS: BUN/CREATININE RATIO 18; CALCIUM 9.4 MG/DL (8.5-10.1); CARBON DIOXIDE 34 MMOL/L (21-32); CHLORIDE 102 MMOL/L (98-107); CREATININE SERUM 0.85 MG/DL (0.60-1.30); GFR ESTIMATED > 60; GLUCOSE 224 MG/DL (70-105); MAGNESIUM 2.1 MG/DL (1.6-2.4); PHOSPHORUS 3.2 MG/DL (2.3-4.7); POTASSIUM 4.8 MMOL/L (3.6-5.0); SODIUM 143 MMOL/L (135-145)
--- NOTE | 2019-09-13 05:27 | Pulmonary Progress Note ---
Sepsis Event Evaluation Height, Weight, BMI Height: 5'6.00" Weight: 212lbs. 1.0oz. 96.324965ed; 35.22 BMI Method:Estimated Focused Exam Lactate Level 09/11/19 22:50: Lactic Acid Level 2.12*H 09/12/19 00:58: Lactic Acid Level 1.79 Time of Focused Exam: 01:04 Exam Exam Vital Signs Date Time Temp Pulse Resp B/P (MAP) Pulse Ox O2 Delivery O2 Flow Rate FiO2 09/13/19 04:00 93 Mechanical Ventilator 55 09/13/19 04:00 38.3 09/13/19 04:00 77 29 153/78 (103) 93 Mechanical Ventilator 55.00 09/13/19 03:00 82 25 134/68 (90) 92 Mechanical Ventilator 55.00 09/13/19 02:47 82 27 92 55 09/13/19 02:33 80 09/13/19 02:32 154/78 09/13/19 02:00 73 31 156/74 (101) 94 Mechanical Ventilator 55.00 09/13/19 01:00 76 09/13/19 01:00 74 27 151/76 (101) 93 Mechanical Ventilator 55.00 09/13/19 00:00 66 27 147/75 (99) 92 Mechanical Ventilator 55.00 09/13/19 00:00 93 Mechanical Ventilator 55 09/13/19 00:00 37.3 09/12/19 23:00 75 27 149/78 (101) 92 Mechanical Ventilator 55.00 09/12/19 22:20 67 29 93 55 09/12/19 22:00 71 28 149/77 (101) 93 Mechanical Ventilator 55.00 09/12/19 21:23 144/76 09/12/19 21:00 68 28 138/73 (94) 92 Mechanical Ventilator 55.00 09/12/19 20:00 80 29 136/70 (92) 93 Mechanical Ventilator 55.00 09/12/19 20:00 93 Mechanical Ventilator 55 09/12/19 19:46 Mechanical Ventilator 55.00 09/12/19 19:31 37.3 09/12/19 19:31 37.3 09/12/19 19:29 71 28 95 55 09/12/19 19:00 70 09/12/19 19:00 70 28 138/69 (92) 96 Mechanical Ventilator 60.00 09/12/19 18:00 71 28 134/69 (90) 94 Mechanical Ventilator 50.00 09/12/19 17:00 74 28 119/54 (75) 95 Mechanical Ventilator 50.00 09/12/19 16:48 37.2 09/12/19 16:21 74 115/54 09/12/19 16:21 74 115/54 09/12/19 16:00 77 29 115/54 (74) 95 Mechanical Ventilator 50.00 09/12/19 15:46 93 Mechanical Ventilator 60 09/12/19 15:00 75 32 112/59 (76) 95 Mechanical Ventilator 50.00 09/12/19 14:51 73 28 96 60 09/12/19 14:00 69 26 143/70 (94) 94 Non Rebreather 50.00 09/12/19 13:00 69 26 143/70 (94) 94 Mechanical Ventilator 50.00 09/12/19 12:35 72 09/12/19 12:00 90 Mechanical Ventilator 50 09/12/19 12:00 72 28 143/68 (93) 90 Mechanical Ventilator 50.00 09/12/19 11:36 37.0 09/12/19 11:00 75 28 134/70 (91) 91 Mechanical Ventilator 50.00 09/12/19 10:29 69 26 93 50 09/12/19 10:21 68 130/71 09/12/19 10:20 68 130/71 09/12/19 10:00 69 25 126/66 (86) 92 Mechanical Ventilator 50.00 09/12/19 09:00 65 25 148/76 (100) 92 Mechanical Ventilator 50.00 09/12/19 08:00 67 26 140/79 (99) 92 Mechanical Ventilator 50.00 09/12/19 08:00 92 Mechanical Ventilator 50 09/12/19 07:42 70 09/12/19 07:00 74 24 115/65 (82) 92 Mechanical Ventilator 50.00 09/12/19 07:00 71 09/12/19 06:52 73 16 93 50 09/12/19 06:51 129/73 09/12/19 06:50 75 09/12/19 06:00 73 16 133/76 (95) 93 Mechanical Ventilator 50.00 I & O 09/13/19 07:00 Intake Total 5530 ml Output Total 1400 ml Balance 4130 ml Height & Weight Height: 5'6.00" Weight: 212lbs. 1.0oz. 96.068718qh; 35.22 BMI Method:Estimated General Appearance: Chronically ill, Obese, Other (intubated) Respiratory: No Accessory Muscle Use, No Respiratory Distress, Decreased Breath Sounds Cardiovascular: Regular Rate, Rhythm Capillary Refill: Less Than 3 Seconds Peripheral Pulses: 2+ Radial Pulses (R), 2+ Radial Pulses (L) Gastrointestinal: soft, no organomegaly Results Lab Laboratory Tests 09/11/19 22:50 09/12/19 03:38 09/13/19 03:19 Assessment/Plan Assessment/Plan Acute on chronic respiratory failure with hypoxia and hypercapnia -Continue ventilator care -Change vent to 24/400/5 -Change IVF to NS severe COPD exacerbation -CT of chest with contrast - reviewed -SVNs-- Add pulmicort -Solumedrol Septic shock -levophed UTI -Continue Abx for now -CT of chest does not show PNA -Continue cefepime and Vanco -Influenza is neg -Repeat influenza swab -MRSA swab is pending Hypothyroid - synthroid DM -hold home metformin -Continue SSI and accu check Q6 Septic shock Hx of MRSA in urine -Continue vanco and cefepime for now WESLEY ALMAGUER DO Sep 13, 2019 05:27
[2019-09-13] MEDS: LEVOTHYROXINE 100 MCG (LEVOTHROID) TAB PO SCH (05:59)
[2019-09-13] MEDS: LEVOTHYROXINE 75 MCG (LEVOTHROID) TABLET PO SCH (05:59)
[2019-09-13] MEDS: NOREPINEPHRINE 4 MG/250 ML 250 ML IV SCH ×3 (06:05→17:41)
[2019-09-13] MEDS: RT-BUDESONIDE NEBS 0.5 MG/2ML (PULMICORT) AMP INH SCH ×2 (07:12→18:57)
[2019-09-13] MEDS: PANTOPRAZOLE 40 MG (PROTONIX) VIAL IV SCH (08:01)
[2019-09-13] MEDS: ENOXAPARIN 40 MG/0.4 ML (LOVENOX) SYR SC SCH (08:01)
--- NOTE | 2019-09-13 08:26 | Diagnostic Imaging Report ---
EXAMINATION: Chest 1 view HISTORY: Acute respiratory failure. COPD exacerbation. COMPARISON: 09/12/2019 FINDINGS: Stable configuration of the endotracheal tube, enteric tube, and right central line. Scattered patchy opacities are seen in the bilateral lung bases and perihilar regions. These are becoming more consolidative in the left lung base. No large pleural effusion or pneumothorax. Stable cardiac silhouette. No acute osseous abnormalities. IMPRESSION: 1. Scattered patchy opacities in the lung bases and perihilar regions with more consolidative appearance in the left lung base. This may represent worsening atelectasis versus developing infection or edema. 2. Stable support devices. Dictated by: Dictated on workstation # [id number]
--- NOTE | 2019-09-13 11:50 | Progress Note - Hospitalist ---
Subjective HPI/CC On Admission Date Seen by Provider: Sep 13, 2019 Time Seen by Provider: 10:30 CC: Respiratory failure now VDRF HPI: This is a 54yoWF clinic patient of [facility] who presented to the ER and was intubated shortly thereafter. Patient remains intubated but pressor therapy now DC and troponin noted to be slightly elevated but trend is donw. Potassium 5.5 and given calcium gluconate and insulin. Output good. Subjective/Events-last exam Patient remains intubated Checked meds and labs No major changes Hope to vent soon Appreciate Dr Silva Focused Exam Lactate Level 09/11/19 22:50: Lactic Acid Level 2.12*H 09/12/19 00:58: Lactic Acid Level 1.79 Time of Focused Exam: 01:04 Objective Exam Vital Signs Vital Signs Date Time Temp Pulse Resp B/P (MAP) Pulse Ox O2 Delivery O2 Flow Rate FiO2 09/13/19 16:43 159/81 09/13/19 16:00 37.3 09/13/19 16:00 75 23 93 Mechanical Ventilator 55.00 09/13/19 15:13 45 Capillary Refill : Less Than 3 Seconds General Appearance: No Apparent Distress, Other (intubated) Respiratory: Lungs Clear Cardiovascular: Regular Rate, Rhythm Results/Procedures Lab Laboratory Tests 09/13/19 03:19 Patient resulted labs reviewed. Assessment/Plan Assessment and Plan Assess & Plan/Chief Complaint Assessment: Acute on chronic respiratory failure with hypoxia and hypercapnia COPD exacerbation-CT chest and IV steroids Septic shock Pneumonia Hypothyroidism DM Hyperkalemia Plan: IV abx Vent Appreciate Dr Silva Diagnosis/Problems Diagnosis/Problems (1) Acute on chronic respiratory failure with hypoxia and hypercapnia Status: Acute (2) COPD exacerbation Status: Acute (3) Pneumonia Status: Acute Qualifiers: Pneumonia type: due to unspecified organism Laterality: unspecified laterality Lung location: unspecified part of lung Qualified Codes: J18.9 - Pneumonia, unspecified organism (4) Septic shock Status: Acute Clinical Quality Measures DVT/VTE Risk/Contraindication: Risk Factor Score Per Nursin RFS Level Per Nursing on Admit: 4+=Very High CLAIRE BAZZI DO Sep 13, 2019 11:50
[2019-09-13] MEDS ORDERED: TROUGH ORDER-PHARMACY XX NR (15:00)
--- NOTE | 2019-09-13 16:52 | NUR ---
Vanco - Trough - 23.5, Hold Vancomycin, repeat trough in am. Trough ordered.
[2019-09-14] VITALS (27 sets, daily range): BP systolic 122–177; BP diastolic 61–96
[2019-09-14] MEDS: CEFEPIME 1,000 MG/SWFI 10 ML IV PUSH IV SCH ×10 (00:21→23:53)
[2019-09-14] MEDS: methylPREDNISolone 40 MG/ML (Solu-MEDROL) VIAL IV SCH ×5 (00:21→23:53)
[2019-09-14] MEDS: inSUlin ASPART (NovoLOG) 1 UNIT/0.01 ML (CHARGE PER UNIT) SC SCH ×5 (00:32→21:26)
[2019-09-14] MEDS: NOREPINEPHRINE 4 MG/250 ML 250 ML IV SCH (00:33)
[2019-09-14] MEDS: RT-ALBUTEROL/IPRATROPIUM 3 ML (DUONEB) VIAL INH SCH ×6 (02:55→21:21)
[2019-09-14 03:14] LABS: BASOPHILS % (AUTO) 0 % (0-10); EOSINOPHILS % (AUTO) 0 % (0-10); HEMATOCRIT 41 % (35-52); HEMOGLOBIN 12.5 G/DL (11.5-16.0); LYMPHOCYTES # (AUTO) 0.5 X 10^3 (1.0-4.0); LYMPHOCYTES % (AUTO) 9 % (12-44); MEAN CORPUSCULAR HEMOGLOBIN 29 PG (25-34); MEAN CORPUSCULAR HGB CONC 30 G/DL (32-36); MEAN CORPUSCULAR VOLUME 95 FL (80-99); MEAN PLATELET VOLUME 9.5 FL (7.4-10.4); MONOCYTES # (AUTO) 0.3 X 10^3 (0.0-1.0); MONOCYTES % (AUTO) 5 % (0-12); NEUTROPHILS # (AUTO) 5.3 X 10^3 (1.8-7.8); NEUTROPHILS % (AUTO) 86 % (42-75); PLATELET COUNT 173 10^3/uL (130-400); RED CELL DISTRIBUTION WIDTH 16.8 % (10.0-14.5); WHITE BLOOD COUNT 6.2 10^3/uL (4.3-11.0)
[2019-09-14 03:15] LABS: ABG BASE EXCESS 8.3 MMOL/L (-2.5-2.5); ABG OXYGEN SATURATION 93 % (94-100); ABG PCO2 53 MMHG (35-45); ABG PH 7.41 (7.37-7.43); ABG PO2 69 MMHG (79-93); ABG TCO2 34.9 MMOL/L (21.0-31.0)
[2019-09-14 03:16] LABS: ALLENS TEST YES-POS
[2019-09-14 03:17] LABS: INSPIRED O2 45%; PATIENT TEMP 36.2; VENTILATOR YES
[2019-09-14 03:32] LABS: BUN/CREATININE RATIO 22; CALCIUM 9.3 MG/DL (8.5-10.1); CARBON DIOXIDE 29 MMOL/L (21-32); CHLORIDE 102 MMOL/L (98-107); CREATININE SERUM 0.78 MG/DL (0.60-1.30); GFR ESTIMATED > 60; GLUCOSE 243 MG/DL (70-105); POTASSIUM 4.6 MMOL/L (3.6-5.0); SODIUM 140 MMOL/L (135-145)
[2019-09-14] MEDS: PROPOFOL DRIP (ICU) 100 ML IV SCH (03:45)
--- NOTE | 2019-09-14 04:44 | Pulmonary Progress Note ---
Subjective Time Seen by a Provider: 04:41 Sepsis Event Evaluation Height, Weight, BMI Height: 5'6.00" Weight: 212lbs. 1.0oz. 96.348428hr; 35.22 BMI Method:Estimated Focused Exam Lactate Level 09/11/19 22:50: Lactic Acid Level 2.12*H 09/12/19 00:58: Lactic Acid Level 1.79 Time of Focused Exam: 01:04 Exam Exam Vital Signs Date Time Temp Pulse Resp B/P (MAP) Pulse Ox O2 Delivery O2 Flow Rate FiO2 09/14/19 04:00 59 22 169/81 (110) 94 Mechanical Ventilator 40.00 09/14/19 04:00 96 Mechanical Ventilator 45 09/14/19 03:45 64 173/93 09/14/19 03:03 64 21 173/93 (119) 91 Mechanical Ventilator 45.00 09/14/19 02:56 60 24 95 45 09/14/19 02:00 56 23 170/85 (113) 96 Mechanical Ventilator 45.00 09/14/19 01:00 60 21 169/86 (113) 96 Mechanical Ventilator 45.00 09/14/19 00:41 63 09/14/19 00:24 36.6 09/14/19 00:00 60 24 166/84 (111) 95 Mechanical Ventilator 45.00 09/14/19 00:00 93 Mechanical Ventilator 45 09/13/19 23:00 65 22 162/80 (107) 95 Mechanical Ventilator 45.00 09/13/19 22:59 68 166/86 09/13/19 22:58 68 166/86 09/13/19 22:00 68 20 166/86 (112) 95 Mechanical Ventilator 45.00 09/13/19 21:00 68 26 158/75 (102) 93 Mechanical Ventilator 45.00 09/13/19 20:25 66 27 95 45 09/13/19 20:00 94 Mechanical Ventilator 45 09/13/19 20:00 83 25 159/67 (97) 94 Mechanical Ventilator 45.00 09/13/19 19:41 36.6 75 25 161/83 (109) 94 Mechanical Ventilator 45.00 09/13/19 19:00 87 09/13/19 19:00 70 25 166/84 (111) 93 Mechanical Ventilator 55.00 09/13/19 18:57 77 26 94 45 09/13/19 18:36 77 165/82 09/13/19 18:00 76 25 164/84 (110) 94 Mechanical Ventilator 55.00 09/13/19 17:00 77 24 165/84 (111) 93 Mechanical Ventilator 55.00 09/13/19 16:43 159/81 09/13/19 16:00 37.3 09/13/19 16:00 75 23 162/80 (107) 93 Mechanical Ventilator 55.00 09/13/19 16:00 92 Mechanical Ventilator 45 09/13/19 15:13 75 26 94 45 09/13/19 15:00 68 26 158/80 (106) 93 Mechanical Ventilator 55.00 09/13/19 14:12 63 151/77 09/13/19 14:00 61 27 151/77 (101) 92 Mechanical Ventilator 55.00 09/13/19 13:00 78 25 154/77 (102) 92 Mechanical Ventilator 55.00 09/13/19 12:14 80 09/13/19 12:00 37.2 09/13/19 12:00 80 24 139/81 (100) 93 Mechanical Ventilator 55.00 09/13/19 12:00 90 Mechanical Ventilator 45 09/13/19 11:00 72 27 144/72 (96) 90 Mechanical Ventilator 55.00 09/13/19 10:45 64 25 92 45 09/13/19 10:09 56 147/73 09/13/19 10:09 55 147/73 09/13/19 10:00 56 27 147/73 (97) 90 Mechanical Ventilator 55.00 09/13/19 09:00 72 28 153/73 (99) 90 Mechanical Ventilator 55.00 09/13/19 08:00 75 25 157/83 (107) 90 Mechanical Ventilator 55.00 09/13/19 07:52 89 Mechanical Ventilator 45 09/13/19 07:32 36.9 09/13/19 07:12 61 29 91 45 09/13/19 07:00 63 09/13/19 07:00 67 28 162/81 (108) 94 Mechanical Ventilator 55.00 09/13/19 06:43 159/80 09/13/19 06:00 70 23 164/81 (108) 94 Mechanical Ventilator 55.00 09/13/19 06:00 70 09/13/19 05:00 60 28 147/74 (98) 92 Mechanical Ventilator 55.00 I & O 09/14/19 07:00 Intake Total 3080 ml Output Total 2750 ml Balance 330 ml Height & Weight Height: 5'6.00" Weight: 212lbs. 1.0oz. 96.391591by; 35.22 BMI Method:Estimated General Appearance: No Apparent Distress, Other (intubated) Respiratory: Lungs Clear Cardiovascular: Regular Rate, Rhythm Capillary Refill: Less Than 3 Seconds Peripheral Pulses: 2+ Radial Pulses (R), 2+ Radial Pulses (L) Gastrointestinal: soft, no organomegaly Results Lab Laboratory Tests 09/13/19 03:19 09/14/19 02:50 Assessment/Plan Assessment/Plan Acute on chronic respiratory failure with hypoxia and hypercapnia -Continue ventilator care -Will start weaning vent now. -Give 80mg of Lasix -/5 -Change IVF to NS severe COPD exacerbation -CT of chest with contrast - reviewed -SVNs-- pulmicort -Solumedrol UTI -Continue Abx for now -CT of chest does not show PNA -Continue cefepime and Vanco -Influenza is neg -Repeat influenza swab -MRSA swab is pending Hypothyroid - synthroid DM -hold home metformin -Continue SSI and accu check Q6 Septic shock Hx of MRSA in urine -Continue vanco and cefepime for now WESLEY ALMAGUER DO Sep 14, 2019 04:44
[2019-09-14] MEDS ORDERED: FUROSEMIDE 40 MG/4 ML INJ (LASIX) IVP ONE (04:45)
[2019-09-14] MEDS ORDERED: FUROSEMIDE 40 MG/4 ML INJ (LASIX) ONE (05:40)
[2019-09-14] MEDS ORDERED: POTASSIUM CL 10MEQ/50ML IVPB 100 ML IV ONE (05:40)
[2019-09-14] MEDS: NS IV 1000 ML 1,000 ML IV SCH (05:41)
[2019-09-14] MEDS: LEVOTHYROXINE 100 MCG (LEVOTHROID) TAB PO SCH (05:52)
[2019-09-14] MEDS: LEVOTHYROXINE 75 MCG (LEVOTHROID) TABLET PO SCH (05:52)
[2019-09-14] MEDS: POTASSIUM CL 10MEQ/50ML IVPB 50 ML IV SCH ×2 (05:59→07:03)
[2019-09-14] MEDS ORDERED: TROUGH ORDER-PHARMACY XX NR (06:00)
--- NOTE | 2019-09-14 06:10 | Diagnostic Imaging Report ---
INDICATION: Respiratory failure, intubated. COMPARISON: 09/13/2019. FINDINGS: Single view of the chest demonstrates stable perihilar infiltrates. There is no pneumothorax or effusion. No overt pulmonary edema is identified. Visualized support lines are stable. IMPRESSION: 1. Stable support lines without pneumothorax. 2. Unchanged aeration. Dictated by: Dictated on workstation # [id number]
[2019-09-14] MEDS: RT-BUDESONIDE NEBS 0.5 MG/2ML (PULMICORT) AMP INH SCH ×2 (07:07→21:21)
[2019-09-14] MEDS ORDERED: VANCOMYCIN 1250 MG/NS 250 ML IVPB IV SCH ×2 (07:30)
--- NOTE | 2019-09-14 07:40 | NUR ---
Pt awake and able to follow commands with precedex ff et propofol at 30. Propofol put on hold et RT called to change vent setting for a weaning attempt.
[2019-09-14] MEDS: PANTOPRAZOLE 40 MG (PROTONIX) VIAL IV SCH (07:51)
[2019-09-14] MEDS: ENOXAPARIN 40 MG/0.4 ML (LOVENOX) SYR SC SCH (07:51)
--- NOTE | 2019-09-14 07:59 | NUR ---
RT - Terri - in room. Pt awake, writing on pad, answering questions et following commands appropriately. Pt calm and cooperative. Vent changed to spontaneous mode by RT. Pt aware of the plan.
--- NOTE | 2019-09-14 08:14 | Physical Therapy Progress Note ---
Therapy Progress Note Patient currently sedated and on vent, they are supposed to get weaned today, will check on patient tomorrow. DANIE DUVALL PT Sep 14, 2019 08:14
--- NOTE | 2019-09-14 08:30 | Occ Therapy Progress Note ---
Therapy Progress Note OT order received, chart reviewed. Pt. currently on ventilator support. Will continue to monitor and begin skilled treatment when medically ready. [id number] DRE MADDEN OT Sep 14, 2019 08:30
[2019-09-14 09:08] LABS: ABG BASE EXCESS 12.1 MMOL/L (-2.5-2.5); ABG OXYGEN SATURATION 83 % (94-100); ABG PCO2 52 MMHG (35-45); ABG PH 7.46 (7.37-7.43); ABG PO2 55 MMHG (79-93); ABG TCO2 38.5 MMOL/L (21.0-31.0)
[2019-09-14 09:10] LABS: ALLENS TEST YES-POS
[2019-09-14 09:11] LABS: INSPIRED O2 RESP RATE 17/ O2 40%; PATIENT TEMP 36.2; VENTILATOR YES
--- NOTE | 2019-09-14 10:05 | NUR ---
Pastoral care visit.
--- NOTE | 2019-09-14 10:36 | Progress Note - Hospitalist ---
ELIANE THOMSON,MED STUDENT 09/14/19 1035: Subjective HPI/CC On Admission Date Seen by Provider: Sep 14, 2019 Time Seen by Provider: 08:00 CC: Respiratory failure now VDRF HPI: This is a 54yoWF clinic patient of [facility] who presented to the ER and was intubated shortly thereafter. Patient remains intubated but pressor therapy now DC and troponin noted to be slightly elevated but trend is donw. Potassium 5.5 and given calcium gluconate and insulin. Output good. Subjective/Events-last exam Patient denies any new complaints today. She remains on vent, but is off of sedation and is awake and alert. She is able to answer some questions with writing. She was given 40mg of Lasix today and at the time of this exam her urine output was 2100ml. Focused Exam Lactate Level 09/11/19 22:50: Lactic Acid Level 2.12*H 09/12/19 00:58: Lactic Acid Level 1.79 Time of Focused Exam: 01:04 Objective Exam Vital Signs Vital Signs Date Time Temp Pulse Resp B/P (MAP) Pulse Ox O2 Delivery O2 Flow Rate FiO2 09/14/19 10:29 96 Vapotherm 20.00 60 09/14/19 09:00 81 13 145/78 (100) 09/14/19 08:00 35.8 Capillary Refill : Less Than 3 Seconds General Appearance: No Apparent Distress HEENT: No Pale Conjunctivae (L), No Pale Conjunctivae (R), No Scleral Icterus (L), No Scleral Icterus (R) Respiratory: No Accessory Muscle Use, No Respiratory Distress, Other (On ventilator) Cardiovascular: Regular Rate, Rhythm, No Murmur, Normal Peripheral Pulses Gastrointestinal: Normal Bowel Sounds, No Organomegaly, Non Tender, Soft; No Distended Extremity: Normal Capillary Refill, No Calf Tenderness, No Pedal Edema Neurologic/Psychiatric: Alert Skin: Normal Color, Warm/Dry Results/Procedures Lab Laboratory Tests 09/14/19 02:50 Patient resulted labs reviewed. Assessment/Plan Assessment and Plan Assess & Plan/Chief Complaint Acute on chronic respiratory failure COPD with acute exacerbation Septic shock Hypothyroidism Diabetes mellitus Hyperkalemia - resolved On ventilator - per Dr. Silva plan to attempt to wean off today Continue Cefipime and Vancomycin Continue Solumedrol and Pulmicort Critical Care: Ventilator Management Clinical Quality Measures DVT/VTE Risk/Contraindication: Risk Factor Score Per Nursin RFS Level Per Nursing on Admit: 4+=Very High LEIGHA LEMUS DO 09/14/19 1610: Subjective Subjective/Events-last exam Labs remain stable, will extubate this afternoon. Off sedation and seems to be handling everything really well. Lasix 40 Mg IV was given with good urinary output of 2100 CCs. Ready for extubation. May need inpatient rehab. Review of Systems General: Malaise Objective Exam General Appearance: No Apparent Distress, WD/WN Respiratory: Chest Non Tender, Lungs Clear, Normal Breath Sounds, No Accessory Muscle Use, No Respiratory Distress Cardiovascular: Regular Rate, Rhythm, No Edema, No Gallop, No JVD, No Murmur, Normal Peripheral Pulses Neurologic/Psychiatric: Alert, Oriented x3, No Motor/Sensory Deficits, Normal Mood/Affect Assessment/Plan Assessment and Plan Assess & Plan/Chief Complaint Vent wean Supervisory-Addendum Brief Verification & Attestation Participated in pt care: history, MDM, physical Personally performed: exam, history, MDM, supervision of care Care discussed with: Medical Student Procedures: n/a Results interpretation: Verified all documentation Verification and Attestation of Medical Student E/M Service A medical student performed and documented this service in my presence. I reviewed and verified all information documented by the medical student and made modifications to such information, when appropriate. I personally performed the physical exam and medical decision making. Leigha Lemus, Sep 14, 2019,21:16 ELIANE THOMSON,MED STUDENT Sep 14, 2019 10:35 LEIGHA LEMUS DO Sep 14, 2019 16:10
--- NOTE | 2019-09-14 10:53 | NUR ---
SPOKE WITH PT, WENT THRU THE EXT HISTORY AND CALLED [facility] TO COMPLETE THE MED REC. I SPOKE WITH PT WHEN SHE WAS HERE AT THE BEGINNING OF THE YEAR AND THE PT INDICATED NOT MUCH HAD CHANGED SINCE THEN. WHEN SHE WAS DISCHARGED METOPROLOL SUCC WAS ORDERED, WHEN I ASKED THE PT IF SHE WAS STILL TAKING SHE SAID NO AND THEY SHE JUST TOOK THE 30 DAY SUPPLY AND NEVER REFILLED IT. GODWIN: THIS IS LISTED ON THE EXT MED HISTORY BUT THE PT SAYS SHE IS NOT TAKING DUE TO THE FEAR OF INJECTIONS. PT STATES SHE USES MULTIPLE INHALER INCLUDING ALBUTEROL HFA, ADVAIR AND SPIRIVA. THE SPIRIVA IS PAST DUE ON A REFILL. WHEN I ASKED THE PT ABOUT THIS SHE SAYS SHE DOESNT USE ALL THE TIME AND SOMETIMES DOESNT USE IT. OTC MEDS: TYLENOL ASPIRIN LORATADINE FISH OIL
--- NOTE | 2019-09-14 11:50 | Physical Therapy Evaluation ---
PT Evaluation-General Medical Diagnosis Admission Date Sep 12, 2019 at 00:15 Medical Diagnosis: COPD excerbation / Pneumonia Onset Date: Sep 12, 2019 Therapy Diagnosis Therapy Diagnosis: impaired mobility, strength, endurance Height/Weight Height (Feet): 5 Height (Inches): 6.00 Weight (Pounds): 212 Weight (Ounces): 1.0 Precautions Precautions/Isolations: Aspiration, Fall Prevention, Standard Precautions, Pressure Ulcer Referral Physician: Allan Reason for Referral: Evaluation/Treatment Medical History Pertinent Medical History: COPD, DM, Heart Failure, HTN, Hypothroidism, Smoking Current History Patient presented to ER via EMS with SOA and wheezing. Social History Home: Single Level Current Living Status: Alone Entry Into Home: Level Entry Prior Prior Level of Function SCALE: Activities may be completed with or without assistive devices. 2-Pnnxkfmwwo-zswiboi completes the activity by him/herself with no assistance from a helper. 5-Set-up or Clean-up Assistance-helper sets up or cleans up; patient completes activity. [place] assists only prior to or following the activity. 4-Supervision or Touching Assistance-helper provides verbal cues and/or touchi ng/steadying and/or contact guard assistance as patient completes activity. Assistance may be provided throughout the activity or intermittently. 3-Partial/Moderate Assistance-helper does LESS THAN HALF the effort. [place] lifts, holds or supports trunk or limbs, but provides less than half the effort. 2-Substantial/Maximal Assistance-helper does MORE THAN HALF the effort. [place] lifts or holds trunk or limbs and provides more than half the effort. 5-Lnkeuaayq-qmsbti does ALL the effort. Patient does none of the effort to complete the activity. Or, the assistance of 2 or more helpers is required for the patient to complete the activity. If activity was not attempted, code reason: 7-Patient Refused. 9-Not Applicable-not attempted and the patient did not perform the activity before the current illness, exacerbation or injury. 10-Not Attempted due to Environmental Limitations-(lack of equipment, weather restraints, etc.). 88-Not Attempted due to Medical Conditions or Safety Concerns. Bed Mobility: 6 Transfers (B,C,W/C): 6 Gait: 6 Indoor Mobility (Ambulation): Independent PT Evaluation-Current Subjective Patient is agreeable to therapy at this time. Pain Numeric Pain Scale: 0-No Pain Pt/Family Goals Get home. Objective Attachments: Oxygen (Vapotherm 20/60 raised to 20/70), Enriquez Catheter, IV ROM/Strength ROM Lower Extremities WNL BLE Strength Lower Extremities 4/5 gross BLE Integumentary/Posture Integumentary See nursing notes. Bladder Incontinence: Enriquez Cath Sensory Vision: Functional Hearing: Functional Sensation Right Lower Extremit: Intact Sensation Left Lower Extremity: Intact Gait Does the Patient Walk?: No and Walking Goal IS indicated Treatment Supine BLE exercises x10: ankle pumps, heel slides, SLR, SAQ, and hip abduction. Assessment/Needs Patient O2 saturation at 89% upon entering room with vapotherm set at 20/60. During exercises O2 dropped to 83, nursing came in and adjusted vapotherm to 20/70. When finished wtih exercises patient O2 recovered to 90%. Patient will benefit from skilled services to improve mobility and strength and maximize LOF. Patient was just extubated this morning. 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 Goals Time Frame: Sep 21, 2019 Roll Left & Right (QC): 4 Sit to Lying (QC): 4 Lying-Sitting on Side/Bed(QC): 4 Sit to Stand (QC): 4 Chair/Ixb-ab-Atmsm Xfer(QC): 4 Toilet Transfer (QC): 4 Does the Patient Walk: Yes Walk 10 feet (QC): 4 Walk 50ft with 2 Turns (QC): 4 PT Plan Problem List Problem List: Activity Tolerance, Functional Strength, Safety, Balance, Gait, Transfer, Bed Mobility, ROM Treatment/Plan Treatment Plan: Continue Plan of Care Treatment Plan: Bed Mobility, Education, Functional Activity Jose, Functional Strength, Gait, Safety, Therapeutic Exercise, Transfers Treatment Duration: Sep 21, 2019 Frequency: 6 times per week Estimated Hrs Per Day: .25 hour per day Patient and/or Family Agrees t: Yes Safety Risks/Education Patient Education: Correct Positioning, Safety Issues Teaching Recipient: Patient Teaching Methods: Demonstration, Discussion Response to Teaching: Reinforcement Needed Discharge Recommendations Plan Patient will undergo strength, endurance, balance, and gait training in order to maximize her LOF. Therapy Discharge Recommendati: Home & Family Time/GCodes Time In: 1130 Time Out: 1141 Total Billed Treatment Time: 11 Total Billed Treatment 1 visit EVM 11 KRTEK,DANIE PT Sep 14, 2019 11:50
--- NOTE | 2019-09-14 12:47 | ST Dysphagia Evaluation ---
Speech Evaluation-General Medical Diagnosis COPD excerbation / Pneumonia Onset Date: Sep 12, 2019 Therapy Diagnosis Therapy Diagnosis: Oropharyngeal Dysphagia Precautions Precautions: Aspiration Referral Referring Physician: Dr. Silva Reason for Referral: Evaluation/Treatment Medical History Pertinent Medical History: COPD, DM, Heart Failure, HTN, Hypothroidism, Smoking Social History Current Living Status: Alone Speech PLF/Current-Dysphagia Prior Level of Function Patient reported having a regular diet prior to hospital admission. Subjective Patient was alert, pleasant, and cooperative for all evaluation tasks. Patient reported that she was ready to eat and sat upright in her bed for the duration of the evaluation. Cognitive Status Patient Orientation: Person, Place, Time, Situation Oral Motor Skills Dentition: Edentalous Ability to Follow Directions: Good Oral Expression Ability: No Impairment Voice Voice Phonatory-Based Quality: Normal Voice Pitch: Normal Voice Loudness: Normal Face Facial Symmetry: Symmetrical Oral-Facial Assessment Oral-Facial Dentition: Normal Labial Seal Description: Normal Smile: Normal Lingual Protrusion: Normal Lingual ROM: Normal Lingual Strength: Normal Dysphagia Evaluation Consistencies Presented: Thin Liquid, Mechanical Soft, Pureed Dietary Recommendations: Mechanical Soft Liquid Recommendations: Thin DYSPHAGIA II w/ thin liquids Swallowing Precautions: Alternate Liquids/Solids, Double Swallow, Decreased Bolus 1/2 Tsp, Decreased Rate of Oral Intake, Liquids from Straw, Small Bites and Sips, Sitting Upright 90 Degrees, Sitting 90 Degrees 30 Post Intake Dysphagia Evaluation Summary Patient was admitted to the ICU s/p COPD excerbation / Pneumonia. Patient was presented thin liquid via 1/2 tsp spoon and straw 1X. Patient presented with no s/s of penetration or aspiration. Patient was then presented with puree and mechanical soft consistencies via 1/2 tsp spoon 1X and demonstrated no s/s of penetration or aspiration. It is recommended that the patient receive a D YSPHAGIA II diet with thin liquids. Additionally, patient will utilize compensatory strategies of alternating solids and liquids, small bites and small sips, and sitting upright for all oral intake. Barriers to Learning Current medical status Speech Short Term Goals Short Term Goals Short Term Goals 1. Patient will tolerate least restrictive diet without s/s of aspiration at 90%. 2. Patient will utilize compensatory strategies as trained at 90% with minimal cues. Speech Chcf Goals Chcf Goals Patient will maintain adequate nutrition/hydration via safe and effective swallow function. Speech-Plan Patient/Family Goals Patient/Family Goals: Patient reported wishing to return to prior level of independence and mobility. Treatment Plan Speech Therapy Treatment Plan: Continue Plan of Care Treatment Duration: Sep 18, 2019 Frequency: 2 times per week Estimated Hrs Per Day: .25 hour per day Rehab Potential: Fair Barriers to Learning: Current medical status Pt/Family Agrees to Plan: Yes Safety Risks/Education Teaching Recipient: Patient Teaching Methods: Demonstration, Discussion Response to Teaching: Verbalize Understanding Education Topics Provided: Utilization of compensatory strategies during all oral intake. Time Speech Therapy Time In: 11:00 Speech Therapy Time Out: 11:15 Total Billed Time: 15 Billed Treatment Time Fletcher KEYUR Aguilar Sep 14, 2019 12:47
--- NOTE | 2019-09-14 15:34 | Occupational Therapy Eval ---
OT Evaluation-General/PLF Medical Diagnosis Admission Date Sep 12, 2019 at 00:15 Medical Diagnosis: COPD excerbation / Pneumonia Onset Date: Sep 12, 2019 Therapy Diagnosis Therapy Diagnosis: Weakness Height/Weight Height (Feet): 5 Height (Inches): 6.00 Weight (Pounds): 212 Weight (Ounces): 1.0 Precautions Precautions/Isolations: Aspiration, Fall Prevention, Standard Precautions, Pr essure Ulcer Safety Interventions: None Weight Bear Status Weight Bearing Restriction: Weight Bearing/Tolerated Referral Physician: Allan Referral Reason: Activity Tolerance, Self Care, Evaluation/Treatment, Strengthening/ROM Medical History Pertinent Medical History: COPD, DM, Heart Failure, HTN, Hypothroidism, Smoking Reviewed History: Yes Social History Home: Single Level Current Living Status: Other Family (Uncle) Entry Into Home: Stairs With Railing Steps Into Home: 1 ADL-Prior Level of Function SCALE: Activities may be completed with or without assistive devices. 6-Nyomcljagd-gnjjvxl completes the activity by him/herself with no assistance from a helper. 5-Set-up or Clean-up Assistance-helper sets up or cleans up; patient completes activity. [place] assists only prior to or following the activity. 4-Supervision or Touching Assistance-helper provides verbal cues and/or touching/steadying and/or contact guard assistance as patient completes activity. Assistance may be provided throughout the activity or intermittently. 3-Partial/Moderate Assistance-helper does LESS THAN HALF the effort. [place] lifts, holds or supports trunk or limbs, but provides less than half the effort. 2-Substantial/Maximal Assistance-helper does MORE THAN HALF the effort. [place] lifts or holds trunk or limbs and provides more than half the effort. 4-Mojxibund-txvaut does ALL the effort. Patient does none of the effort to complete the activity. Or, the assistance of 2 or more helpers is required for the patient to complete the activity. If activity was not attempted, code reason: 7-Patient Refused. 9-Not Applicable-not attempted and the patient did not perform the activity before the current illness, exacerbation or injury. 10-Not Attempted due to Environmental Limitations-(lack of equipment, weather restraints, etc.). 88-Not Attempted due to Medical Conditions or Safety Concerns. ADL PLOF Comments Pt. states that she was independent with daily tasks. Pt. wears oxygen at home, [address] and does not use walker. Self Care: Independent Functional Cognition: Independent DME/Equipment: Bath Chair, Tub/Shower DME/Equipment Comments Pt. has walker but does not use it. Drive Self: Yes OT Current Status Subjective No pain reported. Appearance Pt. was on ventilator support due to pneumonia/copd exacerbation. Extubated this a.m. Nursing okay for OT to work with pt. Mental Status/Objective Patient Orientation: Person, Place Attachments: Enriquez Catheter, IV, Oxygen, Telemetry Current Upper Extremity ROM Limited at this time due to multiple lines and tubes. ADL-Treatment On/Off Footwear (QC): 1 Other Treatments Pt. was on ventilator support, but extubated this a.m. OT checked back on pt. Nursing okay for OT to work with pt. Pt. transferred supine-sit with mod/max assist. Pt. able to sit on side of bed unsupported approximately 10 minutes. OT brushed pt's hair. OT monitored pt's sats. Pt. on vapotherm. Oxygen saturation at approximately 95%. Wound care nurse came into room and requested to assess pt's coccyx area. Pt. transferred sit-supine with min assist. Mod assist for bed mobility. Pt. positioned with pillows and SCDs on her side. All needs met in room. Education OT Patient Education: Correct positioning, Modified ADL techniques, Progress toward Goal/Update tx plan, Purpose of tx/functional activities, Reviewed precautions, Rehab process, Transfer techniques Teaching Recipient: Patient Teaching Methods: Demonstration, Discussion Response to Teaching: Verbalize Understanding, Return Demonstration OT Short Term Goals Short Term Goals Time Frame: Sep 21, 2019 Eatin Oral hygiene: 5 Toileting hygiene: 3 Shower/bathe self: 3 Upper body dressin Lower body dressin Putting on/taking off footwear: 3 OT Credit Cashier Goals Jail Goals Time Frame: Sep 28, 2019 Eating (QC): 6 Oral Hygiene (QC): 6 Toileting Hygiene (QC): 5 Shower/Bathe Self (QC): 5 Upper Body Dressing (QC): 5 Lower Body Dressing (QC): 5 On/Off Footwear (QC): 5 Additional Goals: 1-Demonstrate ADL Tasks, 2-Verbalize Understanding, 3-ImproveStrength/Jose 1=Demonstrate adherence to instructed precautions during ADL tasks. 2=Patient will verbalize/demonstrate understanding of assistive devices/modifications for ADL. 3=Patient will improve strength/tolerance for activity to enable patient to perform ADL's. OT Education/Plan Problem List/Assessment Assessment: Decreased Activ Tolerance, Dependent Transfers, Impaired Bed Mobility, Impaired Funct Balance, Impaired I ADL's, Impaired Self-Care Skills, Restricted Funct UE ROM Discharge Recommendations Plan/Recommendations: Continue POC Therapy Discharge Recommendati: Post Acute OT Comment Discharge equipment and location to be determined. Treatment Plan/Plan of Care Treatment,Training & Education: Yes Patient would benefit from OT for education, treatment and training to promote independence in ADL's, mobility, safety and/or upper extremity function for ADL's. Plan of Care: ADL Retraining, Functional Mobility, UE Funct Exercise/Act Treatment Duration: Sep 28, 2019 Frequency: 5 times per week Estimated Hrs Per Day: .25 hour per day Agreement: Yes Rehab Potential: Good Time/GCodes Start Time: 13:40 Stop Time: 14:00 Total Time Billed (hr/min): 20 Billed Treatment Time 1, DRE WHITEHEAD OT Sep 14, 2019 15:34
[2019-09-14] MEDS ORDERED: inSUlin ASPART (NovoLOG) 1 UNIT/0.01 ML (CHARGE PER UNIT) ONE (17:55)
[2019-09-15] VITALS (13 sets, daily range): BP systolic 144–181; BP diastolic 78–108
[2019-09-15] MEDS: RT-ALBUTEROL/IPRATROPIUM 3 ML (DUONEB) VIAL INH SCH ×6 (02:07→22:17)
[2019-09-15 03:19] LABS: BASOPHILS % (AUTO) 0 % (0-10); EOSINOPHILS % (AUTO) 0 % (0-10); HEMATOCRIT 45 % (35-52); HEMOGLOBIN 13.5 G/DL (11.5-16.0); LYMPHOCYTES # (AUTO) 0.6 X 10^3 (1.0-4.0); LYMPHOCYTES % (AUTO) 8 % (12-44); MEAN CORPUSCULAR HEMOGLOBIN 29 PG (25-34); MEAN CORPUSCULAR HGB CONC 30 G/DL (32-36); MEAN CORPUSCULAR VOLUME 95 FL (80-99); MEAN PLATELET VOLUME 9.3 FL (7.4-10.4); MONOCYTES # (AUTO) 0.3 X 10^3 (0.0-1.0); MONOCYTES % (AUTO) 4 % (0-12); NEUTROPHILS # (AUTO) 6.8 X 10^3 (1.8-7.8); NEUTROPHILS % (AUTO) 89 % (42-75); PLATELET COUNT 182 10^3/uL (130-400); WHITE BLOOD COUNT 7.7 10^3/uL (4.3-11.0)
[2019-09-15 03:36] LABS: BUN/CREATININE RATIO 24; CALCIUM 9.5 MG/DL (8.5-10.1); CARBON DIOXIDE 37 MMOL/L (21-32); CHLORIDE 99 MMOL/L (98-107); CREATININE SERUM 0.78 MG/DL (0.60-1.30); GFR ESTIMATED > 60; GLUCOSE 264 MG/DL (70-105); PHOSPHORUS 3.4 MG/DL (2.3-4.7); POTASSIUM 3.9 MMOL/L (3.6-5.0); SODIUM 144 MMOL/L (135-145)
[2019-09-15] MEDS: CEFEPIME 1,000 MG/SWFI 10 ML IV PUSH IV SCH ×6 (05:30→17:03)
[2019-09-15] MEDS: inSUlin ASPART (NovoLOG) 1 UNIT/0.01 ML (CHARGE PER UNIT) SC SCH ×4 (05:30→21:14)
[2019-09-15] MEDS: methylPREDNISolone 40 MG/ML (Solu-MEDROL) VIAL IV SCH (05:30)
[2019-09-15] MEDS: LEVOTHYROXINE 100 MCG (LEVOTHROID) TAB PO SCH (05:31)
[2019-09-15] MEDS: LEVOTHYROXINE 75 MCG (LEVOTHROID) TABLET PO SCH (05:31)
[2019-09-15] MEDS ORDERED: hydrALAZINE (APESOLINE) 20 MG/ML VIAL IV PRN (06:00)
[2019-09-15] MEDS: RT-BUDESONIDE NEBS 0.5 MG/2ML (PULMICORT) AMP INH SCH ×2 (07:05→18:59)
--- NOTE | 2019-09-15 07:40 | Diagnostic Imaging Report ---
HISTORY: Respiratory failure and hypoxia TECHNIQUE: Single frontal view of the chest COMPARISON: 09/14/2019 FINDINGS: There are persistent mild airspace opacities in the lung bases, which appear stable since the prior study. No pleural effusion or pneumothorax is seen. The endotracheal tube and enteric tube have been removed. The right jugular line, which is coiled once superiorly, appears unchanged in position projecting in the region of the junction of the brachiocephalic vein. IMPRESSION: 1. Mild patchy bibasilar airspace opacities appear stable, may represent atelectasis or infiltrate. 2. Extubation. Dictated by: Dictated on workstation # [id number]
[2019-09-15] MEDS: PANTOPRAZOLE 40 MG (PROTONIX) VIAL IV SCH (07:46)
[2019-09-15] MEDS: FUROSEMIDE 40 MG/4 ML INJ (LASIX) IVP SCH (07:46)
[2019-09-15] MEDS: ENOXAPARIN 40 MG/0.4 ML (LOVENOX) SYR SC SCH (07:46)
[2019-09-15] MEDS: meTOprolol TARTRATE 25 MG (LOPRESSOR) TABLET PO SCH ×2 (07:47→21:59)
[2019-09-15] MEDS: KCL 20 MEQ TAB (K-DUR) PO SCH (07:47)
--- NOTE | 2019-09-15 08:48 | NUR ---
REPORT TAKEN AT THIS TIME FROM JIMMY WALLS FROM ICU.
--- NOTE | 2019-09-15 09:18 | NUR ---
PATIENT TO FLOOR AT THIS TIME VIA CART ACCOMPANIED BY KAVITA RN AND RAFA, RT. THIS RN WILL ASSUME CARE OF THIS PATIENT AT THIS TIME.
--- NOTE | 2019-09-15 10:18 | Occupational Ther Daily Note ---
OT Current Status-Daily Note Subjective No pain reported. Mental Status/Objective Patient Orientation: Person, Place, Time, Situation ADL-Treatment Therapy Code Descriptions/Definitions Functional [place] Measure: 0=Not Assessed/NA 4=Minimal Assistance 1=Total Assistance 5=Supervision or Setup 2=Maximal Assistance 6=Modified [place] 3=Moderate Assistance 7=Complete IndependenceSCALE: Activities may be completed with or without assistive devices. 5-Bvpqbjazst-iegaikg completes the activity by him/herself with no assistance from a helper. 5-Set-up or Clean-up Assistance-helper sets up or cleans up; patient completes activity. [place] assists only prior to or following the activity. 4-Supervision or Touching Assistance-helper provides verbal cues and/or touching/steadying and/or contact guard assistance as patient completes activity. Assistance may be provided throughout the activity or intermittently. 3-Partial/Moderate Assistance-helper does LESS THAN HALF the effort. [place] lifts, holds or supports trunk or limbs, but provides less than half the effort. 2-Substantial/Maximal Assistance-helper does MORE THAN HALF the effort. [place] lifts or holds trunk or limbs and provides more than half the effort. 2-Yavtwzrdm-pfnqqq does ALL the effort. Patient does none of the effort to complete the activity. Or, the assistance of 2 or more helpers is required for the patient to complete the activity. If activity was not attempted, code reason: 7-Patient Refused. 9-Not Applicable-not attempted and the patient did not perform the activity before the current illness, exacerbation or injury. 10-Not Attempted due to Environmental Limitations-(lack of equipment, weather restraints, etc.). 88-Not Attempted due to Medical Conditions or Safety Concerns. Shower/Bathe Self (QC): 3 On/Off Footwear: 7 Pt. agrees to transfer to side of bed and complete sponge bath. Pt. transferred supine-sit with mod assist. Pt. required frequent rest breaks to catch breath. Pt. on vapotherm. Pt. washed upper body, and front yesi area. Pt. stood at side of bed with min assist just long enough for OT to change pad under her. Pt. declined washing rear yesi area, and declined for OT to wash. Pts sats dropped to 80%, and pt. had to sit and rest, taking deep breaths to increase oxygen saturations back to 91%. Pt. transferred sit-supine with min assist, and increased time. All needs met at bed level. Education OT Patient Education: Correct positioning, Modified ADL techniques, Progress toward Goal/Update tx plan, Purpose of tx/functional activities, Reviewed precautions, Rehab process, Transfer techniques Teaching Recipient: Patient Teaching Methods: Demonstration, Discussion Response to Teaching: Verbalize Understanding, Return Demonstration OT Short Term Goals Short Term Goals Time Frame: Sep 21, 2019 Eatin Oral hygiene: 5 Toileting hygiene: 3 Shower/bathe self: 3 Upper body dressin Lower body dressin Putting on/taking off footwear: 3 OT Vinyl Dipper Goals Vinyl Dipper Goals Time Frame: Sep 28, 2019 Eating (QC): 6 Oral Hygiene (QC): 6 Toileting Hygiene (QC): 5 Shower/Bathe Self (QC): 5 Upper Body Dressing (QC): 5 Lower Body Dressing (QC): 5 On/Off Footwear (QC): 5 Additional Goals: 1-Demonstrate ADL Tasks, 2-Verbalize Understanding, 3- ImproveStrength/Jose 1=Demonstrate adherence to instructed precautions during ADL tasks. 2=Patient will verbalize/demonstrate understanding of assistive devices/modifications for ADL. 3=Patient will improve strength/tolerance for activity to enable patient to perform ADL's. OT Education/Plan Problem List/Assessment Assessment: Decreased Activ Tolerance, Dependent Transfers, Impaired Bed Mobility, Impaired Funct Balance, Impaired I ADL's, Impaired Self-Care Skills Discharge Recommendations Plan/Recommendations: Continue POC Treatment Plan/Plan of Care Treatment,Training & Education: Yes Patient would benefit from OT for education, treatment and training to promote independence in ADL's, mobility, safety and/or upper extremity function for ADL's. Plan of Care: ADL Retraining, Functional Mobility, UE Funct Exercise/Act Treatment Duration: Sep 28, 2019 Frequency: 5 times per week Estimated Hrs Per Day: .25 hour per day Agreement: Yes Rehab Potential: Fair Time/GCodes Start Time: 08:35 Stop Time: 09:00 Total Time Billed (hr/min): 25 Billed Treatment Time 1, ADL x 2 DRE MADDEN OT Sep 15, 2019 10:18
--- NOTE | 2019-09-15 10:47 | Progress Note - Hospitalist ---
ELIANE THOMSON,MED STUDENT 09/15/19 1047: Subjective HPI/CC On Admission Date Seen by Provider: Sep 15, 2019 Time Seen by Provider: 08:35 CC: Respiratory failure now VDRF HPI: This is a 54yoWF clinic patient of [facility] who presented to the ER and was intubated shortly thereafter. Patient remains intubated but pressor therapy now DC and troponin noted to be slightly elevated but trend is donw. Potassium 5.5 and given calcium gluconate and insulin. Output good. Subjective/Events-last exam Patient seen and examined. She is now extubated and is on vapotherm. She is awake and alert and states she is feeling better now that she is off the ventilator. Denies any new complaints this morning. She was able to eat a light breakfast and has not felt any nausea. She was started on Lopressor and Hyd ralazine this morning due to systolic pressures ranging from 155 to 181. Repeat CXR this morning reveals stable bibasilar opacities and no effusions. Focused Exam Time of Focused Exam: 01:04 Objective Exam Vital Signs Vital Signs Date Time Temp Pulse Resp B/P (MAP) Pulse Ox O2 Delivery O2 Flow Rate FiO2 09/15/19 09:30 36.0 76 22 167/78 (107) 89 Nasal Cannula 8.00 09/15/19 07:24 45 Capillary Refill : Less Than 3 Seconds General Appearance: No Apparent Distress, Obese HEENT: No Pale Conjunctivae (L), No Pale Conjunctivae (R), No Scleral Icterus (L), No Scleral Icterus (R) Respiratory: Lungs Clear, No Accessory Muscle Use, No Respiratory Distress; No Crackles, No Wheezing Cardiovascular: Regular Rate, Rhythm, No Edema, No Murmur, Normal Peripheral Pulses Gastrointestinal: Non Tender, Soft, Abnormal Bowel Sounds (Decreased); No Distended Extremity: Normal Capillary Refill, No Calf Tenderness, No Pedal Edema Neurologic/Psychiatric: Alert, Oriented x3, Normal Mood/Affect Results/Procedures Lab Laboratory Tests 09/15/19 03:12 Patient resulted labs reviewed. Assessment/Plan Assessment and Plan Assess & Plan/Chief Complaint Acute on chronic respiratory failure COPD with acute exacerbation Hypothyroidism Diabetes mellitus Hyperkalemia - resolved Off ventilator, now on vapotherm Transitioned to 4th floor Continue Hydralazine and Lopressor prn Mechanical soft diet PT and ST Clinical Quality Measures DVT/VTE Risk/Contraindication: Risk Factor Score Per Nursin RFS Level Per Nursing on Admit: 4+=Very High LEIGHA BAZZI DO 09/15/19 1421: Subjective Subjective/Events-last exam Pt extubated this morning Vapotherm maintained PT and OT will be initiated Will DC gee very soon Overall feels pretty good Review of Systems Pulmonary: Dyspnea Objective Exam General Appearance: No Apparent Distress, WD/WN Respiratory: Chest Non Tender, Lungs Clear, Normal Breath Sounds, No Accessory Muscle Use, No Respiratory Distress, Decreased Breath Sounds Cardiovascular: Regular Rate, Rhythm, No Edema, No Gallop, No JVD, No Murmur, Normal Peripheral Pulses Neurologic/Psychiatric: Alert, Oriented x3, No Motor/Sensory Deficits, Normal Mood/Affect Diagnosis/Problems Diagnosis/Problems (1) Acute on chronic respiratory failure with hypoxia and hypercapnia Status: Acute (2) COPD exacerbation Status: Acute (3) Pneumonia Status: Acute Qualifiers: Qualified Codes: J18.9 - Pneumonia, unspecified organism Supervisory-Addendum Brief Verification & Attestation Participated in pt care: history, MDM, physical Personally performed: exam, history, MDM, supervision of care Care discussed with: Medical Student Procedures: n/a Results interpretation: Verified all documentation Verification and Attestation of Medical Student E/M Service A medical student performed and documented this service in my presence. I reviewed and verified all information documented by the medical student and made modifications to such information, when appropriate. I personally performed the physical exam and medical decision making. Leigha Bazzi, Sep 15, 2019,20:47 ELIANE THOMSON,MED STUDENT Sep 15, 2019 10:47 LEIGHA BAZZI DO Sep 15, 2019 14:21
--- NOTE | 2019-09-15 12:13 | Physical Therapy Daily Note ---
PT Daily Note-Current Subjective Pt agreeable to PT session with encouragement, requesting not to walk today, agreeable to sit EOB and perform ex's Pain Numeric Pain Scale: 0-No Pain Appearance Pt in bed before and after therapy session, call light, phone, bedside table within reach Mental Status Patient Orientation: Person, Place, Time, Eyes Open, Situation Attachments: Saline Lock, Oxygen, Enriquez Catheter Transfers SCALE: Activities may be completed with or without assistive devices. 0-Uuvjytzqbz-dimpuhs completes the activity by him/herself with no assistance from a helper. 5-Set-up or Clean-up Assistance-helper sets up or cleans up; patient completes activity. [place] assists only prior to or following the activity. 4-Supervision or Touching Assistance-helper provides verbal cues and/or touching/steadying and/or contact guard assistance as patient completes activity. Assistance may be provided throughout the activity or intermittently. 3-Partial/Moderate Assistance-helper does LESS THAN HALF the effort. [place] lifts, holds or supports trunk or limbs, but provides less than half the effort. 2-Substantial/Maximal Assistance-helper does MORE THAN HALF the effort. [place] lifts or holds trunk or limbs and provides more than half the effort. 9-Mupzhgebh-ijqiei does ALL the effort. Patient does none of the effort to complete the activity. Or, the assistance of 2 or more helpers is required for the patient to complete the activity. If activity was not attempted, code reason: 7-Patient Refused. 9-Not Applicable-not attempted and the patient did not perform the activity before the current illness, exacerbation or injury. 10-Not Attempted due to Environmental Limitations-(lack of equipment, weather restraints, etc.). 88-Not Attempted due to Medical Conditions or Safety Concerns. Roll Left & Right (QC): 4 Sit to Lying (QC): 4 Lying to Sitting/Side of Bed(Q: 4 Sit to Stand (QC): 4 CGA, pt putting forth effort to perform, SOA with all transitions requiring rest breaks Exercises Seated Therapy Exercises: Ankle pumps, Sit to stand, Long arc quads, Hip flexion Seated Reps: 20 (rest breaks after each ex each LE, at times during ex) Treatments education, safety, bed mobility, activity tolerance, transfers, functional mobility, strengthening, ex Assessment Current Status: Fair Progress encouragement to participate, easily fatigues and becomes SOA PT Residential Goals Warehouse Operations Manager Goals PT Residential Goals Time Frame: Sep 21, 2019 Roll Left & Right (QC): 4 Sit to Lying (QC): 4 Lying-Sitting on Side/Bed(QC): 4 Sit to Stand (QC): 4 Chair/Cwa-cu-Mpmia Xfer(QC): 4 Toilet Transfer (QC): 4 Does the Patient Walk: Yes Walk 10 feet (QC): 4 Walk 50ft with 2 Turns (QC): 4 PT Plan Treatment/Plan Treatment Plan: Continue Plan of Care Treatment Plan: Bed Mobility, Education, Functional Activity Jose, Functional Strength, Gait, Safety, Therapeutic Exercise, Transfers Treatment Duration: Sep 21, 2019 Frequency: 6 times per week Estimated Hrs Per Day: .25 hour per day Patient and/or Family Agrees t: Yes Safety Risks/Education Patient Education: Transfer Techniques, Safety Issues Teaching Recipient: Patient Teaching Methods: Discussion Response to Teaching: Verbalize Understanding Time/GCodes Time In: 1139 Time Out: 1153 Total Billed Treatment Time: 14 Total Billed Treatment 1 visit, EX x14 min IRINA MCDUFFIE INSTALLATION TECH Sep 15, 2019 12:13
[2019-09-15] MEDS ORDERED: FLUTICASONE NASAL SPRAY (FLONASE) 16 GM BTL NS PRN (20:45)
[2019-09-15] MEDS ORDERED: LORATADINE (CLARITIN) 10 MG TAB PO PRN (20:45)
[2019-09-15] MEDS ORDERED: NON-FORMULARY MEDICATION 1 EA EA (Fluticasone Propion/Salmeterol (Fluticasone-Salmeterol 2 INH SCH (21:00)
[2019-09-15] MEDS: MONTELUKAST 10 MG (SINGULAIR) TAB PO SCH (21:59)
[2019-09-15] MEDS: FAMOTIDINE 20 MG (PEPCID) TABLET PO SCH (21:59)
[2019-09-16] VITALS (7 sets, daily range): BP systolic 102–160; BP diastolic 59–93
[2019-09-16] MEDS: CEFEPIME 1,000 MG/SWFI 10 ML IV PUSH IV SCH ×8 (00:13→18:07)
[2019-09-16] MEDS: RT-ALBUTEROL/IPRATROPIUM 3 ML (DUONEB) VIAL INH SCH ×6 (02:15→22:18)
[2019-09-16] MEDS: inSUlin ASPART (NovoLOG) 1 UNIT/0.01 ML (CHARGE PER UNIT) SC SCH ×4 (05:37→20:48)
[2019-09-16] MEDS: LEVOTHYROXINE 75 MCG (LEVOTHROID) TABLET PO SCH (05:38)
[2019-09-16] MEDS: LEVOTHYROXINE 100 MCG (LEVOTHROID) TAB PO SCH (05:38)
[2019-09-16 06:16] LABS: BASOPHILS % (AUTO) 0 % (0-10); EOSINOPHILS # (AUTO) 0.1 10^3/uL (0.0-0.3); EOSINOPHILS % (AUTO) 1 % (0-10); HEMATOCRIT 43 % (35-52); HEMOGLOBIN 12.7 G/DL (11.5-16.0); LYMPHOCYTES # (AUTO) 1.2 X 10^3 (1.0-4.0); LYMPHOCYTES % (AUTO) 20 % (12-44); MEAN CORPUSCULAR HEMOGLOBIN 28 PG (25-34); MEAN CORPUSCULAR HGB CONC 29 G/DL (32-36); MEAN CORPUSCULAR VOLUME 96 FL (80-99); MEAN PLATELET VOLUME 9.4 FL (7.4-10.4); MONOCYTES # (AUTO) 0.6 X 10^3 (0.0-1.0); MONOCYTES % (AUTO) 9 % (0-12); NEUTROPHILS # (AUTO) 4.3 X 10^3 (1.8-7.8); NEUTROPHILS % (AUTO) 70 % (42-75); PLATELET COUNT 153 10^3/uL (130-400); RED CELL DISTRIBUTION WIDTH 16.8 % (10.0-14.5); WHITE BLOOD COUNT 6.2 10^3/uL (4.3-11.0)
[2019-09-16 06:38] LABS: BUN/CREATININE RATIO 27; CALCIUM 9.2 MG/DL (8.5-10.1); CARBON DIOXIDE 36 MMOL/L (21-32); CHLORIDE 97 MMOL/L (98-107); CREATININE SERUM 0.71 MG/DL (0.60-1.30); GFR ESTIMATED > 60; GLUCOSE 179 MG/DL (70-105); MAGNESIUM 1.8 MG/DL (1.6-2.4); PHOSPHORUS 2.8 MG/DL (2.3-4.7); POTASSIUM 3.9 MMOL/L (3.6-5.0); SODIUM 141 MMOL/L (135-145)
[2019-09-16] MEDS ORDERED: LEVOTHYROXINE 100 MCG (LEVOTHROID) TAB PO SCH (06:38)
[2019-09-16] MEDS: FUROSEMIDE 40 MG/4 ML INJ (LASIX) IVP SCH (07:50)
[2019-09-16] MEDS: PANTOPRAZOLE 40 MG (PROTONIX) VIAL IV SCH (07:50)
[2019-09-16] MEDS: KCL 20 MEQ TAB (K-DUR) PO SCH (07:51)
[2019-09-16] MEDS: ASPIRIN 81 MG CHEW (CHILDREN'S ASA) PO SCH (07:51)
[2019-09-16] MEDS: ENOXAPARIN 40 MG/0.4 ML (LOVENOX) SYR SC SCH (07:51)
[2019-09-16] MEDS: meTOprolol TARTRATE 25 MG (LOPRESSOR) TABLET PO SCH ×2 (07:51→20:46)
[2019-09-16] MEDS: FAMOTIDINE 20 MG (PEPCID) TABLET PO SCH ×2 (07:52→20:46)
[2019-09-16] MEDS: RT-ADVAIR HFA 115/21 MCG PER PUFF IH SCH ×2 (08:14→18:43)
[2019-09-16] MEDS: RT-BUDESONIDE NEBS 0.5 MG/2ML (PULMICORT) AMP INH SCH ×2 (08:14→18:44)
--- NOTE | 2019-09-16 08:25 | Diagnostic Imaging Report ---
CHEST 1 VIEW, AP/PA ONLY Indication: Acute respiratory failure Comparison: 09/15/2019 Findings: Right IJ central venous catheter has been removed. Patchy bibasilar pulmonary opacities are similar and may represent atelectasis. No pleural effusion or pneumothorax. Stable cardiomediastinal silhouette. Impression: 1. Persistent patchy basilar pulmonary opacities which may represent atelectasis. Multifocal pneumonia could give this appearance in appropriate setting. Dictated by: Dictated on workstation # [id number]
--- NOTE | 2019-09-16 08:46 | NUR ---
CM DISCHARGE PLANNING: SS referral received for need of Trilogy set up for patient at discharge. Visited with Don about this needed equipment. She is unsure who she is set up with for her current CPAP machine et oxygen but would like to use [facility] as her DME provider. I talked with IGNACIA Vera et she reports that the patient used to be with [facility] until they closed and has been with them since August. She has continuous oxygen at 4LPM prior to this hospitalization. IGNACIA Conway has also been working to try et get authorization for Trilogy since August. Will continue to follow et assist as needed.
--- NOTE | 2019-09-16 09:59 | Occ Therapy Progress Note ---
Therapy Progress Note Attempted to see pt. Pt stated that she was trying to sleep and wanted to do therapy later. Will attempt later in am. KYLE GOMEZ Sep 16, 2019 09:59
--- NOTE | 2019-09-16 10:43 | Pulmonary Progress Note ---
Sepsis Event Evaluation Height, Weight, BMI Height: 5'6.00" Weight: 212lbs. 1.0oz. 96.164572df; 35.22 BMI Method:Estimated Focused Exam Time of Focused Exam: 01:04 Exam Exam Vital Signs Date Time Temp Pulse Resp B/P (MAP) Pulse Ox O2 Delivery O2 Flow Rate FiO2 09/16/19 08:26 High Flow N/C 8.00 09/16/19 08:21 90 High Flow N/C 8.00 09/16/19 08:15 90 High Flow N/C 8.00 09/16/19 08:00 36.7 75 20 160/75 (103) 89 High Flow N/C 8.00 09/16/19 04:00 37.1 71 16 127/59 (81) 89 High Flow N/C 8.00 09/16/19 02:15 88 High Flow N/C 8.00 09/15/19 23:19 37.1 75 20 144/79 (100) 91 High Flow N/C 8.00 09/15/19 22:18 91 High Flow N/C 8.00 09/15/19 20:11 37.0 81 15 159/80 (106) 91 High Flow N/C 8.00 09/15/19 19:39 91 High Flow N/C 8.00 09/15/19 19:06 89 High Flow N/C 8.00 09/15/19 18:58 88 High Flow N/C 7.00 09/15/19 16:00 90 High Flow N/C 8.00 09/15/19 15:38 36.6 85 14 156/97 (116) 90 High Flow N/C 8.00 09/15/19 12:00 36.6 80 20 175/79 (111) 89 Nasal Cannula 8.00 09/15/19 11:05 88 High Flow N/C 8.00 I & O 09/16/19 07:00 Intake Total 2440 ml Output Total 2350 ml Balance 90 ml Height & Weight Height: 5'6.00" Weight: 212lbs. 1.0oz. 96.016590iq; 35.22 BMI Method:Estimated General Appearance: No Apparent Distress, WD/WN HEENT: No Pale Conjunctivae (L), No Pale Conjunctivae (R), No Scleral Icterus (L), No Scleral Icterus (R) Respiratory: Chest Non Tender, Lungs Clear, Normal Breath Sounds, No Accessory Muscle Use, No Respiratory Distress, Decreased Breath Sounds Cardiovascular: Regular Rate, Rhythm, No Edema, No Gallop, No JVD, No Murmur, Normal Peripheral Pulses Capillary Refill: Less Than 3 Seconds Peripheral Pulses: 2+ Radial Pulses (R), 2+ Radial Pulses (L) Gastrointestinal: soft, no organomegaly Extremity: Normal Capillary Refill, No Calf Tenderness, No Pedal Edema Neurologic/Psychiatric: Alert, Oriented x3, No Motor/Sensory Deficits, Normal Mood/Affect Skin: Normal Color, Warm/Dry Results Lab Laboratory Tests 09/15/19 03:12 09/16/19 05:57 Assessment/Plan Assessment/Plan Acute on chronic respiratory failure--improving Pulmonary edmea -Lasix -Repeat BNP severe COPD exacerbation -CT of chest with contrast - reviewed -SVNs-- pulmicort UTI -Continue Abx for now -CT of chest does not show PNA -cefepime and Vanco -Influenza is neg Hypothyroid - synthroid WESLEY MAK DO Sep 16, 2019 10:43
[2019-09-16] MEDS: ACETAMINOPHEN 500 MG TAB (TYLENOL) PO PRN (10:58)
--- NOTE | 2019-09-16 11:00 | Physical Therapy Daily Note ---
PT Daily Note-Current Subjective Pt. in bed reluctant to work but did with encouragement and education that it is important to move etc. pt requests tylenol at end of Rx. Pt. states she is ready to go home. Pain Numeric Pain Scale: 5-Moderate Pain Location: Medial Location Body Site: Head Pain Description: Ache Comment: head ache Appearance eyes closed a lot, sleepy Mental Status Patient Orientation: Normal For Age Attachments: Oxygen Transfers SCALE: Activities may be completed with or without assistive devices. 4-Zexthdeyrz-chsqqsy completes the activity by him/herself with no assistance from a helper. 5-Set-up or Clean-up Assistance-helper sets up or cleans up; patient completes activity. [place] assists only prior to or following the activity. 4-Supervision or Touching Assistance-helper provides verbal cues and/or touching/steadying and/or contact guard assistance as patient completes activity. Assistance may be provided throughout the activity or intermittently. 3-Partial/Moderate Assistance-helper does LESS THAN HALF the effort. [place] lifts, holds or supports trunk or limbs, but provides less than half the effort. 2-Substantial/Maximal Assistance-helper does MORE THAN HALF the effort. [place] lifts or holds trunk or limbs and provides more than half the effort. 5-Qezhupwhg-vuliqm does ALL the effort. Patient does none of the effort to complete the activity. Or, the assistance of 2 or more helpers is required for the patient to complete the activity. If activity was not attempted, code reason: 7-Patient Refused. 9-Not Applicable-not attempted and the patient did not perform the activity before the current illness, exacerbation or injury. 10-Not Attempted due to Environmental Limitations-(lack of equipment, weather restraints, etc.). 88-Not Attempted due to Medical Conditions or Safety Concerns. in out bed and sit to stand SBA to CGA Weight Bearing Right Lower Extremity: Right Full Weight Bearing Left Lower Extremity: Left Full Weight Bearing Gait Training Does the Patient Walk?: Yes Walk 10 feet (QC): 4 Walk 50 ft with 2 Turns(QC): 4 Gait Persons Needed: 1 Gait Assistive Device: FWW slow, assist to manage O2 tubing, no rishi LOB Exercises Seated Therapy Exercises: Ankle pumps, Sit to stand, Long arc quads, Hip flexion, Hip abd/add Seated Reps: 10 Assessment Current Status: Good Progress PT Can Conveyor Feeder Goals Retirement Goals PT Can Conveyor Feeder Goals Time Frame: Sep 21, 2019 Roll Left & Right (QC): 4 Sit to Lying (QC): 4 Lying-Sitting on Side/Bed(QC): 4 Sit to Stand (QC): 4 Chair/Qgf-bz-Wlcte Xfer(QC): 4 Toilet Transfer (QC): 4 Does the Patient Walk: Yes Walk 10 feet (QC): 4 Walk 50ft with 2 Turns (QC): 4 PT Plan Treatment/Plan Treatment Plan: Continue Plan of Care Treatment Plan: Bed Mobility, Education, Functional Activity Jose, Functional Strength, Gait, Safety, Therapeutic Exercise, Transfers Treatment Duration: Sep 21, 2019 Frequency: 6 times per week Estimated Hrs Per Day: .25 hour per day Patient and/or Family Agrees t: Yes Safety Risks/Education Patient Education: Gait Training, Transfer Techniques, Correct Positioning, Disease Process Teaching Recipient: Patient Teaching Methods: Demonstration, Discussion Response to Teaching: Verbalize Understanding, Return Demonstration, Reinforcement Needed discussed importance of activity Time/GCodes Time In: 1035 Time Out: 1052 Total Billed Treatment Time: 17 Total Billed Treatment 1,GT17m SATYA ARANGO GEOTHERMAL POWERPLANT SUPERVISOR Sep 16, 2019 11:00
--- NOTE | 2019-09-16 11:16 | Occupational Ther Daily Note ---
OT Current Status-Daily Note Subjective Pt alert, sitting EOB. Pt agrees to therapy after encouragement. Declines completing bathing stating that she is just waking up and will do it later. Discussed with nrsg and pt declined for nrsg also. ADL-Treatment Therapy Code Descriptions/Definitions Functional [place] Measure: 0=Not Assessed/NA 4=Minimal Assistance 1=Total Assistance 5=Supervision or Setup 2=Maximal Assistance 6=Modified [place] 3=Moderate Assistance 7=Complete IndependenceSCALE: Activities may be completed with or without assistive devices. 6-Txeacfndjb-cejfism completes the activity by him/herself with no assistance from a helper. 5-Set-up or Clean-up Assistance-helper sets up or cleans up; patient completes activity. [place] assists only prior to or following the activity. 4-Supervision or Touching Assistance-helper provides verbal cues and/or touching/steadying and/or contact guard assistance as patient completes activity. Assistance may be provided throughout the activity or intermittently. 3-Partial/Moderate Assistance-helper does LESS THAN HALF the effort. [place] lifts, holds or supports trunk or limbs, but provides less than half the effort. 2-Substantial/Maximal Assistance-helper does MORE THAN HALF the effort. [place] lifts or holds trunk or limbs and provides more than half the effort. 4-Bntaztlpk-nosket does ALL the effort. Patient does none of the effort to complete the activity. Or, the assistance of 2 or more helpers is required for the patient to complete the activity. If activity was not attempted, code reason: 7-Patient Refused. 9-Not Applicable-not attempted and the patient did not perform the activity before the current illness, exacerbation or injury. 10-Not Attempted due to Environmental Limitations-(lack of equipment, weather restraints, etc.). 88-Not Attempted due to Medical Conditions or Safety Concerns. On/Off Footwear: 6 (Sitting EOB pt able to don/doff footwear and rub lotion on foot, independently.) Other Treatment Pt completed 1 set 10 reps of 2 medium resistance theraband exercises to increase strength and activity tolerance. Theraband lift room for pt use. Pt stated that her arms were sore during exercises. After therapy, pt sitting EOB with call light/phone in reach. All needs met in room. OT Short Term Goals Short Term Goals Time Frame: Sep 21, 2019 Eatin Oral hygiene: 5 Toileting hygiene: 3 Shower/bathe self: 3 Upper body dressin Lower body dressin Putting on/taking off footwear: 3 OT Liquid Loader Goals Liquid Loader Goals Time Frame: Sep 28, 2019 Eating (QC): 6 Oral Hygiene (QC): 6 Toileting Hygiene (QC): 5 Shower/Bathe Self (QC): 5 Upper Body Dressing (QC): 5 Lower Body Dressing (QC): 5 On/Off Footwear (QC): 5 Additional Goals: 1-Demonstrate ADL Tasks, 2-Verbalize Understanding, 3- ImproveStrength/Jose 1=Demonstrate adherence to instructed precautions during ADL tasks. 2=Patient will verbalize/demonstrate understanding of assistive device s/modifications for ADL. 3=Patient will improve strength/tolerance for activity to enable patient to perform ADL's. OT Education/Plan Problem List/Assessment Assessment: Decreased Activ Tolerance Discharge Recommendations Plan/Recommendations: Continue POC Treatment Plan/Plan of Care Patient would benefit from OT for education, treatment and training to promote independence in ADL's, mobility, safety and/or upper extremity function for ADL's. Plan of Care: ADL Retraining, Functional Mobility, UE Funct Exercise/Act Treatment Duration: Sep 28, 2019 Frequency: 5 times per week Estimated Hrs Per Day: .25 hour per day Agreement: Yes Rehab Potential: Fair Time/GCodes Start Time: 11:00 Stop Time: 11:15 Total Time Billed (hr/min): 15 Billed Treatment Time 1 visit-FA 1 (15 min) KYLE GOMEZ Sep 16, 2019 11:16
--- NOTE | 2019-09-16 11:35 | Progress Note - Hospitalist ---
ELIANE THOMSON,MED STUDENT 09/16/19 1135: Subjective HPI/CC On Admission Date Seen by Provider: Sep 16, 2019 Time Seen by Provider: 08:00 CC: Respiratory failure now VDRF HPI: This is a 54yoWF clinic patient of [facility] who presented to the ER and was intubated shortly thereafter. Patient remains intubated but pressor therapy now DC and troponin noted to be slightly elevated but trend is donw. Potassium 5.5 and given calcium gluconate and insulin. Output good. Subjective/Events-last exam Patient doing well this morning, no new complaints. She continues to work with PT and OT, and states she is breathing well. Denies SOB, chest pain, dizziness, palpitations, nausea, vomiting or diarrhea. She has not had a bm yet, but she does feel like she is passing gas. Gee is still in place with good output. She has been sitting in her chair and has been ambulating back and forth from her bed. Focused Exam Time of Focused Exam: 01:04 Objective Exam Vital Signs Vital Signs Date Time Temp Pulse Resp B/P (MAP) Pulse Ox O2 Delivery O2 Flow Rate FiO2 09/16/19 08:26 High Flow N/C 8.00 09/16/19 08:21 90 09/16/19 08:00 36.7 75 20 160/75 (103) 09/15/19 07:24 45 Capillary Refill : Less Than 3 SecondsLess Than 3 Seconds General Appearance: No Apparent Distress, WD/WN HEENT: PERRL/EOMI, Pharynx Normal; No Pale Conjunctivae (L), No Pale Conjunctivae (R) Respiratory: Lungs Clear, Normal Breath Sounds, No Accessory Muscle Use, No Respiratory Distress Cardiovascular: Regular Rate, Rhythm, No Edema, No Murmur, Normal Peripheral Pulses Gastrointestinal: Normal Bowel Sounds, Non Tender, Soft Extremity: Normal Capillary Refill, Non Tender, No Calf Tenderness, No Pedal Edema Neurologic/Psychiatric: Alert, Oriented x3, Normal Mood/Affect Skin: Normal Color, Warm/Dry Results/Procedures Lab Laboratory Tests 09/16/19 05:57 Patient resulted labs reviewed. Assessment/Plan Assessment and Plan Assess & Plan/Chief Complaint Acute on chronic respiratory failure COPD with acute exacerbation Hypothyroidism Diabetes mellitus Hyperkalemia - resolved On high flow oxygen 8L Continue Hydralazine and Lopressor prn Mechanical soft diet as tolerated PT and OT Clinical Quality Measures DVT/VTE Risk/Contraindication: Risk Factor Score Per Nursin RFS Level Per Nursing on Admit: 4+=Very High LEIGHA BAZZI DO 09/16/192049: Subjective Subjective/Events-last exam Pt still having difficulty breathing and she does de-sat with activity. Vapotherm maintained. PT and OT ordered. Will discontinue gee catheter. Review of Systems Pulmonary: Dyspnea Objective Exam General Appearance: No Apparent Distress, WD/WN, Chronically ill, Obese Respiratory: No Accessory Muscle Use, No Respiratory Distress, Decreased Breath Sounds Cardiovascular: Regular Rate, Rhythm Assessment/Plan Assessment and Plan Assess & Plan/Chief Complaint Vapotherm wean PT OT DC Gee Supervisory-Addendum Brief Verification & Attestation Participated in pt care: history, MDM, physical Personally performed: exam, history, MDM, supervision of care Care discussed with: Medical Student Procedures: n/a Results interpretation: Verified all documentation Verification and Attestation of Medical Student E/M Service A medical student performed and documented this service in my presence. I reviewed and verified all information documented by the medical student and made modifications to such information, when appropriate. I personally performed the physical exam and medical decision making. Leigha Bazzi, Sep 16, 2019,20:50 ELIANE THOMSON,MED STUDENT Sep 16, 2019 11:35 LEIGHA BAZZI DO Sep 16, 2019 20:50
[2019-09-16] MEDS: PARoxetine 20 MG (PAXIL) TAB PO SCH (15:55)
[2019-09-16] MEDS: MONTELUKAST 10 MG (SINGULAIR) TAB PO SCH (20:46)
[2019-09-17] MEDS: CEFEPIME 1,000 MG/SWFI 10 ML IV PUSH IV SCH ×8 (00:10→17:12)
[2019-09-17] MEDS: ACETAMINOPHEN 500 MG TAB (TYLENOL) PO PRN (03:16)
[2019-09-17] MEDS: RT-ALBUTEROL/IPRATROPIUM 3 ML (DUONEB) VIAL INH SCH ×6 (03:44→22:38)
[2019-09-17 04:35] VITALS: BP 118/72
[2019-09-17] MEDS: LEVOTHYROXINE 75 MCG (LEVOTHROID) TABLET PO SCH (05:57)
[2019-09-17] MEDS: inSUlin ASPART (NovoLOG) 1 UNIT/0.01 ML (CHARGE PER UNIT) SC SCH ×4 (05:58→21:14)
[2019-09-17 06:03] LABS: BASOPHILS % (AUTO) 0 % (0-10); EOSINOPHILS # (AUTO) 0.2 10^3/uL (0.0-0.3); EOSINOPHILS % (AUTO) 3 % (0-10); HEMATOCRIT 42 % (35-52); HEMOGLOBIN 12.4 G/DL (11.5-16.0); LYMPHOCYTES % (AUTO) 16 % (12-44); MEAN CORPUSCULAR HEMOGLOBIN 28 PG (25-34); MEAN CORPUSCULAR HGB CONC 30 G/DL (32-36); MEAN CORPUSCULAR VOLUME 95 FL (80-99); MEAN PLATELET VOLUME 10.1 FL (7.4-10.4); MONOCYTES # (AUTO) 0.4 X 10^3 (0.0-1.0); MONOCYTES % (AUTO) 7 % (0-12); NEUTROPHILS # (AUTO) 4.6 X 10^3 (1.8-7.8); NEUTROPHILS % (AUTO) 75 % (42-75); PLATELET COUNT 139 10^3/uL (130-400); WHITE BLOOD COUNT 6.2 10^3/uL (4.3-11.0)
[2019-09-17 06:21] LABS: BUN/CREATININE RATIO 20; CALCIUM 8.9 MG/DL (8.5-10.1); CARBON DIOXIDE 41 MMOL/L (21-32); CHLORIDE 93 MMOL/L (98-107); CREATININE SERUM 0.82 MG/DL (0.60-1.30); GFR ESTIMATED > 60; GLUCOSE 294 MG/DL (70-105); MAGNESIUM 1.9 MG/DL (1.6-2.4); PHOSPHORUS 2.9 MG/DL (2.3-4.7); POTASSIUM 4.2 MMOL/L (3.6-5.0); SODIUM 140 MMOL/L (135-145)
[2019-09-17] MEDS ORDERED: LEVOTHYROXINE 100 MCG (LEVOTHROID) TAB PO SCH (06:30)
--- NOTE | 2019-09-17 07:51 | Diagnostic Imaging Report ---
INDICATION: Acute respiratory failure, dyspnea. COMPARISON: September 16, 2019. TECHNIQUE: Single radiograph of the chest dated September 17, 2019. FINDINGS: The cardiac silhouette is stable. No significant pulmonary vascular congestion. Right basilar pulmonary opacities are present, slightly increased since the prior examination. Improved aeration of the left lung. No significant pleural effusion. No pneumothorax. No acute osseous abnormality. IMPRESSION: Worsening right basilar infiltrate and/or atelectasis with improved aeration of the left lung. Dictated by: Dictated on workstation # [id number]
[2019-09-17 08:00] VITALS: BP 138/86
[2019-09-17] MEDS: RT-ADVAIR HFA 115/21 MCG PER PUFF IH SCH ×2 (08:20→08:21)
[2019-09-17] MEDS: RT-BUDESONIDE NEBS 0.5 MG/2ML (PULMICORT) AMP INH SCH ×2 (08:21→22:37)
[2019-09-17] MEDS: FUROSEMIDE 40 MG/4 ML INJ (LASIX) IVP SCH (09:10)
[2019-09-17] MEDS: ENOXAPARIN 40 MG/0.4 ML (LOVENOX) SYR SC SCH (09:10)
[2019-09-17] MEDS: ASPIRIN 81 MG CHEW (CHILDREN'S ASA) PO SCH (09:14)
[2019-09-17] MEDS: KCL 20 MEQ TAB (K-DUR) PO SCH (09:14)
[2019-09-17] MEDS: FAMOTIDINE 20 MG (PEPCID) TABLET PO SCH ×2 (09:14→20:02)
[2019-09-17] MEDS: meTOprolol TARTRATE 25 MG (LOPRESSOR) TABLET PO SCH ×2 (09:14→20:02)
[2019-09-17] MEDS: PANTOPRAZOLE 40 MG (PROTONIX) TAB PO SCH (09:14)
--- NOTE | 2019-09-17 10:17 | Progress Note - Hospitalist ---
ELIANE THOMSON,MED STUDENT 09/17/19 1017: Subjective HPI/CC On Admission Date Seen by Provider: Sep 17, 2019 Time Seen by Provider: 08:15 CC: Respiratory failure now VDRF HPI: This is a 54yoWF clinic patient of [facility] who presented to the ER and was intubated shortly thereafter. Patient remains intubated but pressor therapy now DC and troponin noted to be slightly elevated but trend is donw. Potassium 5.5 and given calcium gluconate and insulin. Output good. Subjective/Events-last exam Patient denies any new complaints this morning, and states she would like to go home. Reports breathing well and denies SOB. States she had a bowel movement last night and this morning. Enriquez catheter has been removed and patient states she is urinating on her own with no difficulty. She continues to work with PT and OT, and has been ambulating to the bathroom and chair. Currently on 7L n/c. Focused Exam Time of Focused Exam: 01:04 Objective Exam Vital Signs Vital Signs Date Time Temp Pulse Resp B/P (MAP) Pulse Ox O2 Delivery O2 Flow Rate FiO2 09/17/19 08:36 High Flow N/C 5.00 09/17/19 08:24 93 09/17/19 04:35 36.2 62 18 118/72 (87) 09/15/19 07:24 45 Capillary Refill : Less Than 3 SecondsLess Than 3 Seconds General Appearance: No Apparent Distress, WD/WN HEENT: Pharynx Normal, Moist Mucous Membranes; No Pharyngeal Erythema Respiratory: Chest Non Tender, Lungs Clear, No Accessory Muscle Use, No Respi ratory Distress; No Crackles, No Wheezing Cardiovascular: Regular Rate, Rhythm, No Edema, No Murmur, Normal Peripheral Pulses Gastrointestinal: Normal Bowel Sounds, Non Tender, Soft; No Distended Extremity: Normal Capillary Refill, Non Tender, No Calf Tenderness, No Pedal Edema Neurologic/Psychiatric: Alert, Oriented x3, Normal Mood/Affect Skin: Normal Color, Warm/Dry Results/Procedures Lab Laboratory Tests 09/17/19 05:29 Patient resulted labs reviewed. Assessment/Plan Assessment and Plan Assess & Plan/Chief Complaint Acute on chronic respiratory failure - improving COPD with acute exacerbation Hypothyroidism Diabetes mellitus Hyperkalemia - resolved On high flow oxygen 7L Continue Hydralazine and Lopressor prn Advance diet as tolerated PT and OT Use inspiratory spirometer Clinical Quality Measures DVT/VTE Risk/Contraindication: Risk Factor Score Per Nursin RFS Level Per Nursing on Admit: 4+=Very High LEIGHA BAZZI DO 09/17/192102: Subjective Subjective/Events-last exam Pt doesn't want to get into inpatient rehab but just incase we will proceed on with approval Nasal canula at 4 liters at home now at 7 Wants to go home but I told her we can't just yet Review of Systems General: Fatigue Pulmonary: Dyspnea Objective Exam General Appearance: No Apparent Distress, WD/WN Respiratory: Lungs Clear Cardiovascular: Irregularly Irregular Assessment/Plan Assessment and Plan Assess & Plan/Chief Complaint Wean O2 IRF if patient approves and insurance approves Supervisory-Addendum Brief Verification & Attestation Participated in pt care: history, MDM, physical Personally performed: exam, history, MDM, supervision of care Care discussed with: Medical Student Procedures: n/a Results interpretation: Verified all documentation Verification and Attestation of Medical Student E/M Service A medical student performed and documented this service in my presence. I reviewed and verified all information documented by the medical student and made modifications to such information, when appropriate. I personally performed the physical exam and medical decision making. Leigha Bazzi, Sep 17, 2019,21:02 ELIANE THOMSON,MED STUDENT Sep 17, 2019 10:17 LEIGHA BAZZI DO Sep 17, 2019 21:03
--- NOTE | 2019-09-17 10:29 | Pulmonary Progress Note ---
Subjective Time Seen by a Provider: 10:28 Sepsis Event Evaluation Height, Weight, BMI Height: 5'6.00" Weight: 212lbs. 1.0oz. 96.995533lv; 35.22 BMI Method:Estimated Focused Exam Time of Focused Exam: 01:04 Exam Exam Vital Signs Date Time Temp Pulse Resp B/P (MAP) Pulse Ox O2 Delivery O2 Flow Rate FiO2 09/17/19 08:36 High Flow N/C 5.00 09/17/19 08:24 93 Nasal Cannula 5.00 09/17/19 04:35 36.2 62 18 118/72 (87) 60 NIV CPAP 7.00 09/17/19 03:44 93 NIV CPAP 9.00 09/16/19 23:30 36.2 60 16 102/66 (78) 89 NIV CPAP 9.00 09/16/19 22:19 95 High Flow N/C 8.00 09/16/19 21:00 High Flow N/C 7.00 09/16/19 20:00 36.5 77 20 129/93 (105) 91 High Flow N/C 8.00 8.00 09/16/19 18:44 90 High Flow N/C 8.00 09/16/19 18:43 89 High Flow N/C 8.00 09/16/19 18:43 High Flow N/C 8.00 09/16/19 16:00 36.4 66 20 129/81 (97) 90 High Flow N/C 8.00 09/16/19 14:55 90 High Flow N/C 8.00 09/16/19 12:00 35.9 75 20 144/73 (96) 91 High Flow N/C 8.00 09/16/19 11:39 36.7 73 91 09/16/19 11:34 91 High Flow N/C 8.00 I & O 09/17/19 07:00 Intake Total 2502 ml Output Total 1200 ml Balance 1302 ml Height & Weight Height: 5'6.00" Weight: 212lbs. 1.0oz. 96.787077bo; 35.22 BMI Method:Estimated General Appearance: No Apparent Distress, WD/WN HEENT: Pharynx Normal, Moist Mucous Membranes; No Pharyngeal Erythema Respiratory: Chest Non Tender, Lungs Clear, No Accessory Muscle Use, No Respiratory Distress; No Crackles, No Wheezing Cardiovascular: Regular Rate, Rhythm, No Edema, No Murmur, Normal Peripheral Pulses Capillary Refill: Less Than 3 Seconds Peripheral Pulses: 2+ Radial Pulses (R), 2+ Radial Pulses (L) Gastrointestinal: soft, no organomegaly Extremity: Normal Capillary Refill, Non Tender, No Calf Tenderness, No Pedal E meaghan Neurologic/Psychiatric: Alert, Oriented x3, Normal Mood/Affect Skin: Normal Color, Warm/Dry Results Lab Laboratory Tests 09/16/19 05:57 09/17/19 05:29 Assessment/Plan Assessment/Plan Acute on chronic respiratory failure--improving Pulmonary edmea -Lasix severe COPD exacerbation -CT of chest with contrast - reviewed -SVNs-- pulmicort UTI -CT of chest does not show PNA -Influenza is neg Hypothyroid - synthroid WESLEY MAK DO Sep 17, 2019 10:29
--- NOTE | 2019-09-17 11:02 | NUR ---
IRF Evaluation Order received to evaluate patient for the ARU. Chart review complete and findings discussed with Dr. Lemus - patient accepted. Patient's primary insurance provider is [facility]; therefore, prior authorization will need to be obtained, prior to admission. Prior auth process initiated and clinical information submitted for review. Will continue to follow. Thank you for this referral.
--- NOTE | 2019-09-17 11:54 | Progress Note - Hospitalist ---
Subjective HPI/CC On Admission Date Seen by Provider: Sep 17, 2019 Time Seen by Provider: 10:30 CC: Respiratory failure now VDRF HPI: This is a 54yoWF clinic patient of [facility] who presented to the ER and was intubated shortly thereafter. Patient remains intubated but pressor therapy now DC and troponin noted to be slightly elevated but trend is donw. Potassium 5.5 and given calcium gluconate and insulin. Output good. Subjective/Events-last exam Pt doesn't want to get into inpatient rehab but just incase we will proceed on with approval Nasal canula at 4 liters at home now at 7 Wants to go home but I told her we can't just yet Review of Systems Pulmonary: Dyspnea Focused Exam Time of Focused Exam: 01:04 Objective Exam Vital Signs Vital Signs Date Time Temp Pulse Resp B/P (MAP) Pulse Ox O2 Delivery O2 Flow Rate FiO2 09/17/19 20:00 36.5 63 20 101/64 (76) 96 High Flow N/C 7.00 09/15/19 07:24 45 Capillary Refill : Less Than 3 SecondsLess Than 3 Seconds General Appearance: No Apparent Distress, WD/WN, Chronically ill, Obese Respiratory: No Accessory Muscle Use, No Respiratory Distress, Decreased Breath Sounds Cardiovascular: Regular Rate, Rhythm Results/Procedures Lab Laboratory Tests 09/17/19 05:29 Patient resulted labs reviewed. Assessment/Plan Assessment and Plan Assess & Plan/Chief Complaint Assessment: VDRF Resp failure COPD Smoker OHS Plan: IRF? Monitor closely Critical Care Ventilator Management Diagnosis/Problems Diagnosis/Problems (1) Acute on chronic respiratory failure with hypoxia and hypercapnia Status: Acute (2) COPD exacerbation Status: Acute (3) Pneumonia Status: Acute Qualifiers: Pneumonia type: due to unspecified organism Laterality: unspecified laterality Lung location: unspecified part of lung Qualified Codes: J18.9 - Pneumonia, unspecified organism Clinical Quality Measures DVT/VTE Risk/Contraindication: Risk Factor Score Per Nursin RFS Level Per Nursing on Admit: 4+=Very High CLAIRE BAZZI DO Sep 17, 2019 11:54
[2019-09-17 12:00] VITALS: BP 117/68
--- NOTE | 2019-09-17 12:10 | Physical Therapy Daily Note ---
PT Daily Note-Current Subjective Patient states that she is "pissy" today but is willing to partcipate in therapy at this time. Pain Numeric Pain Scale: 0-No Pain Appearance Patient in recliner with call light and bedside table within reach. RT present to give patient breathing treatment. Mental Status Patient Orientation: Person, Place, Time, Situation Attachments: Oxygen (7L) Transfers SCALE: Activities may be completed with or without assistive devices. 2-Ylbcgpqpkv-rrwyoms completes the activity by him/herself with no assistance from a helper. 5-Set-up or Clean-up Assistance-helper sets up or cleans up; patient completes activity. Parker assists only prior to or following the activity. 4-Supervision or Touching Assistance-helper provides verbal cues and/or touching/steadying and/or contact guard assistance as patient completes activity. Assistance may be provided throughout the activity or intermittently. 3-Partial/Moderate Assistance-helper does LESS THAN HALF the effort. Parker lifts, holds or supports trunk or limbs, but provides less than half the effort. 2-Substantial/Maximal Assistance-helper does MORE THAN HALF the effort. Parker lifts or holds trunk or limbs and provides more than half the effort. 4-Uqdrvmlmf-hfqhke does ALL the effort. Patient does none of the effort to complete the activity. Or, the assistance of 2 or more helpers is required for the patient to complete the activity. If activity was not attempted, code reason: 7-Patient Refused. 9-Not Applicable-not attempted and the patient did not perform the activity before the current illness, exacerbation or injury. 10-Not Attempted due to Environmental Limitations-(lack of equipment, weather restraints, etc.). 88-Not Attempted due to Medical Conditions or Safety Concerns. Roll Left & Right (QC): 6 Lying to Sitting/Side of Bed(Q: 6 Sit to Stand (QC): 4 (SBA) Chair/Fok-aj-Bpmlw Xfer(QC): 4 (SBA) Weight Bearing Right Lower Extremity: Right Full Weight Bearing Left Lower Extremity: Left Full Weight Bearing Gait Training Does the Patient Walk?: Yes Distance: 300' Walk 10 feet (QC): 4 Walk 50 ft with 2 Turns(QC): 4 Walk 150 ft (QC): 4 Gait Persons Needed: 1 Gait Assistive Device: FWW SBA. Treatments Bed mobility, transfers, ambulation. Assessment Current Status: Good Progress Patient is stable during ambulation using walker with no LOB. Patient returned to room with RT present for breathing treatment. PT to increase activity as tolerated by patient. PT Usp Goals Child Caregiver Private Home Goals PT Child Caregiver Private Home Goals Time Frame: Sep 21, 2019 Roll Left & Right (QC): 4 Sit to Lying (QC): 4 Lying-Sitting on Side/Bed(QC): 4 Sit to Stand (QC): 4 Chair/Lwj-op-Nstdr Xfer(QC): 4 Toilet Transfer (QC): 4 Does the Patient Walk: Yes Walk 10 feet (QC): 4 Walk 50ft with 2 Turns (QC): 4 PT Plan Problem List Problem List: Activity Tolerance, Functional Strength, Safety, Balance, Gait, Transfer, Bed Mobility, ROM Treatment/Plan Treatment Plan: Continue Plan of Care Treatment Plan: Bed Mobility, Education, Functional Activity Jose, Functional Strength, Gait, Safety, Therapeutic Exercise, Transfers Treatment Duration: Sep 21, 2019 Frequency: 6 times per week Estimated Hrs Per Day: .25 hour per day Patient and/or Family Agrees t: Yes Safety Risks/Education Patient Education: Gait Training, Transfer Techniques Teaching Recipient: Patient Teaching Methods: Demonstration, Discussion Response to Teaching: Reinforcement Needed Time/GCodes Time In: 1133 Time Out: 1144 Total Billed Treatment Time: 11 Total Billed Treatment 1 visit FA 11 KARY CANALES PT Sep 17, 2019 12:10
--- NOTE | 2019-09-17 15:11 | Occ Therapy Progress Note ---
Therapy Progress Note This pt. is known to this OT from previous sessions. Pt. seated on side of bed. OT came into room to work with pt. Pt. declines activity. OT encourages pt. and educates her on need to gain endurance. OT offers to assist pt. with shower, with sponge bath, with toileting, or even ambulation. Pt. verbalizes that she does not want to do this, that she will shower later when her daughter brings clothing, and that she has already been taking self to bathroom. Pt. is reminded that she is currently needing 7 L 02, and that it is important to work with therapist to improve health before discharge home. Pt. verbalizes that she understands this, but that she still plans to go home soon. Pt. requested coffee. OT obtained coffee and upon coming back, pt. states, "I don't mean to be grumpy, I just want to go home." OT encourages pt. again. All needs are met for pt. 1, visit [id number] Pt. declines treatment No charge DRE MADDEN OT Sep 17, 2019 15:11
[2019-09-17 16:00] VITALS: BP 130/79
[2019-09-17] MEDS: ACETAMINOPHEN 325 MG TABLET PO PRN (17:06)
[2019-09-17] MEDS: PARoxetine 20 MG (PAXIL) TAB PO SCH (17:07)
[2019-09-17 20:00] VITALS: BP 101/64
[2019-09-17] MEDS: MONTELUKAST 10 MG (SINGULAIR) TAB PO SCH (20:02)
[2019-09-17 23:45] VITALS: BP 107/57
[2019-09-18] MEDS: CEFEPIME 1,000 MG/SWFI 10 ML IV PUSH IV SCH ×4 (00:12→05:44)
[2019-09-18 00:59] VITALS: BP 107/57
[2019-09-18] MEDS: RT-ALBUTEROL/IPRATROPIUM 3 ML (DUONEB) VIAL INH SCH ×3 (02:37→11:10)
[2019-09-18] MEDS: ACETAMINOPHEN 325 MG TABLET PO PRN (03:50)
[2019-09-18] MEDS: LEVOTHYROXINE 75 MCG (LEVOTHROID) TABLET PO SCH (05:44)
[2019-09-18] MEDS: inSUlin ASPART (NovoLOG) 1 UNIT/0.01 ML (CHARGE PER UNIT) SC SCH ×2 (05:45→11:58)
[2019-09-18 06:00] LABS: BASOPHILS % (AUTO) 0 % (0-10); EOSINOPHILS # (AUTO) 0.2 10^3/uL (0.0-0.3); EOSINOPHILS % (AUTO) 3 % (0-10); HEMATOCRIT 41 % (35-52); HEMOGLOBIN 12.4 G/DL (11.5-16.0); LYMPHOCYTES # (AUTO) 0.9 X 10^3 (1.0-4.0); LYMPHOCYTES % (AUTO) 14 % (12-44); MEAN CORPUSCULAR HEMOGLOBIN 29 PG (25-34); MEAN CORPUSCULAR HGB CONC 30 G/DL (32-36); MEAN CORPUSCULAR VOLUME 96 FL (80-99); MONOCYTES # (AUTO) 0.4 X 10^3 (0.0-1.0); MONOCYTES % (AUTO) 7 % (0-12); NEUTROPHILS # (AUTO) 4.5 X 10^3 (1.8-7.8); NEUTROPHILS % (AUTO) 76 % (42-75); PLATELET COUNT 143 10^3/uL (130-400); RED CELL DISTRIBUTION WIDTH 15.9 % (10.0-14.5)
[2019-09-18 06:26] LABS: BUN/CREATININE RATIO 19; CALCIUM 9.2 MG/DL (8.5-10.1); CARBON DIOXIDE 39 MMOL/L (21-32); CHLORIDE 93 MMOL/L (98-107); CREATININE SERUM 0.81 MG/DL (0.60-1.30); GFR ESTIMATED > 60; GLUCOSE 252 MG/DL (70-105); MAGNESIUM 1.8 MG/DL (1.6-2.4); PHOSPHORUS 2.7 MG/DL (2.3-4.7); POTASSIUM 4.3 MMOL/L (3.6-5.0); SODIUM 139 MMOL/L (135-145)
[2019-09-18 08:00] VITALS: BP 133/78
[2019-09-18] MEDS: RT-ADVAIR HFA 115/21 MCG PER PUFF IH SCH (08:17)
[2019-09-18] MEDS: RT-BUDESONIDE NEBS 0.5 MG/2ML (PULMICORT) AMP INH SCH (08:17)
[2019-09-18] MEDS: FAMOTIDINE 20 MG (PEPCID) TABLET PO SCH (09:05)
[2019-09-18] MEDS: KCL 20 MEQ TAB (K-DUR) PO SCH (09:05)
[2019-09-18] MEDS: ASPIRIN 81 MG CHEW (CHILDREN'S ASA) PO SCH (09:05)
[2019-09-18] MEDS: PANTOPRAZOLE 40 MG (PROTONIX) TAB PO SCH (09:05)
[2019-09-18] MEDS: meTOprolol TARTRATE 25 MG (LOPRESSOR) TABLET PO SCH (09:05)
[2019-09-18] MEDS: FUROSEMIDE 40 MG/4 ML INJ (LASIX) IVP SCH (09:06)
[2019-09-18] MEDS: ENOXAPARIN 40 MG/0.4 ML (LOVENOX) SYR SC SCH (09:06)
[2019-09-18] MEDS ORDERED: CEFU500T63 PO (11:08)
[2019-09-18] MEDS ORDERED: METO-333 PO (11:08)
--- NOTE | 2019-09-18 11:16 | Discharge Summary ---
Discharge Summary Hospital Course Was the Problem List Reviewed?: Yes Problems/Dx: (1) Acute on chronic respiratory failure with hypoxia and hypercapnia Status: Acute (2) COPD exacerbation Status: Acute (3) Pneumonia Status: Resolved Qualifiers: Qualified Codes: J18.9 - Pneumonia, unspecified organism Hospital Course Date of Admission: Sep 12, 2019 at 00:15 Admission Diagnosis : Family Physician/Provider: [place] [place] Date of Discharge: 09/18/19 Discharge Diagnosis: [ ] Acute respiratory failure Exacerbation of COPD Hypercapnic respiratory failure Obstructively sleep apnea Obesity Tobaccoism Type II diabetes Hypothyroidism Hospital Course: Is a 54-year-old white female who was admitted in acute respiratory distress and failure and was emergently intubated and transferred to ICU. It was felt that she had a pneumonia on admissions was not confirmed by chest x-ray. CT chest pulmonary angiogram was negative for PE. The patient was successfully extubated without incident. She is transferred to the floor but continued to require high levels of oxygen. She had been on 4 L by nasal cannula at home and is requiring 7 but at the time of discharge is back down to 4 L nasal cannula with an O2 sat of 91 percent. The patient was evaluated for the acute rehabilitation unit but she was adamant she was not going to go. She was counseled in cessation of tobacco-ism and she is certain that she will not go back to smoking. At the time of discharge she is stable and anxious to go home. [ ] Labs and Pending Lab Test: Laboratory Tests 09/17/19 11:23: Glucometer 190H 09/17/19 15:47: Glucometer 179H 09/17/19 20:38: Glucometer 341H 09/18/19 04:33: Glucometer 277H 09/18/19 05:45: White Blood Count 6.0, Red Blood Count 4.33L, Hemoglobin 12.4, Hematocrit 41, Mean Corpuscular Volume 96, Mean Corpuscular Hemoglobin 29, Mean Corpuscular Hemoglobin Concent 30L, Red Cell Distribution Width 15.9H, Platelet Count 143, Mean Platelet Volume 10.0, Neutrophils (%) (Auto) 76H, Lymphocytes (%) (Auto) 14, Monocytes (%) (Auto) 7, Eosinophils (%) (Auto) 3, Basophils (%) (Auto) 0, Neutrophils # (Auto) 4.5, Lymphocytes # (Auto) 0.9L, Monocytes # (Auto) 0.4, Eosinophils # (Auto) 0.2, Basophils # (Auto) 0.0, Sodium Level 139, Potassium Level 4.3, Chloride Level 93L, Carbon Dioxide Level 39H, Anion Gap 7, Blood Urea Nitrogen 15, Creatinine 0.81, Estimat Glomerular Filtration Rate > 60, BUN/Creatinine Ratio 19, Glucose Level 252H, Calcium Level 9.2, Phosphorus Level 2.7, Magnesium Level 1.8 Microbiology 09/13/19 Influenza Types A,B Antigen (BUSHRA) - Final, Complete 09/11/19 Blood Culture - Final, Complete No growth 09/11/19 Urine Culture - Final, Complete Enterobacter cloacae complex Klebsiella oxytoca Klebsiella pneumoniae Home Meds Active Cefuroxime (Cefuroxime Axetil) 500 Mg Tablet 500 Mg PO BID Metoprolol Tartrate 25 Mg Tablet 25 Mg PO BID 30 Days Reported Tylenol Extra Strength (Acetaminophen) 500 Mg Tablet 1,500 Mg PO Q8H PRN Aspirin 81 Mg Tab.chew 81 Mg PO DAILY Glipizide 5 Mg Tablet 5 Mg PO HS Glipizide 5 Mg Tablet 10 Mg PO DAILY TAKES 2 (5MG) TABS Fluticasone-Salmeterol 250-50 (Fluticasone Propion/Salmeterol) 1 Each Blst.w.dev 1 Puff INH BID [place]-3 Fish Oil 1,000 mg Sftg ([place]-3/Dha/Epa/Fish Oil) 1 Each Capsule 2,000 Mg PO DAILY Albuterol Sulfate 2.5 Mg/3 Ml Vial.neb 3 Ml NEB Q4-6 H PRN Montelukast Sodium 10 Mg Tablet 10 Mg PO HS Famotidine 20 Mg Tablet 20 Mg PO BID Loratadine 10 Mg Tablet 10 Mg PO DAILY PRN Metformin HCl 500 Mg Tablet 500 Mg PO BID Levothyroxine Sodium 175 Mcg Tablet 175 Mcg PO DAILY Fluticasone Propionate 16 Gm [place].susp 2 [place] NS DAILY PRN Atorvastatin Calcium 10 Mg Tablet 10 Mg PO DAILY Potassium Chloride 10 Meq Tab.er.prt 10 Meq PO DAILY Furosemide 40 Mg Tablet 40 Mg PO DAILY Proair Hfa (Albuterol Sulfate) 1 Puff Puff 2 Puff INH Q6H PRN Spiriva (Tiotropium [place]) 1 Inh Aerp 1 Cap INH 1300 PRN Paroxetine HCl 40 Mg Tablet 40 Mg PO 1500 Assessment/Pt Instructions Patient is instructed to continue to avoid tobacco products. Her medications are reviewed with her. She is to follow-up with Dr. Silva in with [facility] within the next week or 2. Discharge Planning: >30 minutes discharge planning Discharge Instructions Discharge Diet: ADA Diet Consultations Dr. Silva Discharge Physical Examination Vital Signs Vital Signs Date Time Temp Pulse Resp B/P (MAP) Pulse Ox O2 Delivery O2 Flow Rate FiO2 09/18/19 08:33 High Flow N/C 6.00 09/18/19 08:26 90 09/18/19 00:59 36.4 58 09/17/19 23:45 18 107/57 (74) 09/15/19 07:24 45 General Appearance: No Apparent Distress, WD/WN HEENT: Other (Takes up almost) Respiratory: Chest Non Tender, Lungs Clear, Normal Breath Sounds, No Accessory Muscle Use, No Respiratory Distress Cardiovascular: Regular Rate, Rhythm, No Gallop Gastrointestinal: Normal Bowel Sounds, Non Tender, Soft Extremity: Normal Range of Motion, No Pedal Edema Skin: Normal Color, Warm/Dry Neurologic/Psychiatric: Alert, Oriented x3, No Motor/Sensory Deficits, Normal Mood/Affect, wood grinder II-XII Norm as Tested Allergies: Coded Allergies: NKANo Known Allergies (Unverified Allergy, Mild, 05/01/09) Copy Copies To 1: [facility] [place] Summary Date of Admission Sep 12, 2019 at 00:15 Date of Discharge Discharge Date: Sep 18, 2019 Discharge Time: 1100 Admission Diagnosis Assessment: Acute on chronic respiratory failure with hypoxia and hypercapnia COPD exacerbation-CT chest and IV steroids Septic shock Pneumonia Hypothyroidism DM Hyperkalemia Plan: IV abx Vent Appreciate Dr Silva Consults/Procedures Consulations Dr. Silva Procedures CT chest pulmonary angiogram Discharge Diagnosis (1) Acute on chronic respiratory failure with hypoxia and hypercapnia Status: Acute (2) COPD exacerbation Status: Acute (3) Pneumonia Status: Resolved Qualifiers: Qualified Codes: J18.9 - Pneumonia, unspecified organism Clinical Quality Measures DVT/VTE Risk/Contraindication: Risk Factor Score Per Nursin RFS Level Per Nursing on Admit: 4+=Very High JEFF DURBIN MD Sep 18, 2019 11:16
--- NOTE | 2019-09-18 11:30 | Occ Therapy Progress Note ---
Therapy Progress Note OT withheld today as nursing reports that pt is discharging today. GISELLE GAITAN OT Sep 18, 2019 11:29
--- NOTE | 2019-09-18 14:00 | NUR ---
CM FINAL DISCHARGE PLAN: Patient is discharged to home today self care. She was able to be weaned to her prior oxygen level of 4LPM continuous via [place]. Via [facility] DUNN continues to attempt to get approval for a Trilogy for this patient. She will dismiss with her home equipment of CPAP and continuous oxygen on this date.
--- NOTE | 2019-09-18 14:10 | Speech Therapy Daily Note ---
Speech Daily Progress Note Subjective Date Seen by Provider: Sep 18, 2019 Time Seen by Provider: 08:10 Patient was alert and cooperative for all therapy tasks. Patient sat upright in her bed for the duration of treatment. Objective Patient tolerated least restrictive diet with no s/s of aspiration at 90% with minimal cues. Assessment Assessment Current Status: Good Progress Treatment Plan Discontinue ST Speech Short Term Goals Short Term Goals Short Term Goals 1. Patient will tolerate least restrictive diet without s/s of aspiration at 90%. 2. Patient will utilize compensatory strategies as trained at 90% with minimal cues. Speech Usp Goals Usp Goals Patient will maintain adequate nutrition/hydration via safe and effective swallow function. Speech-Plan Patient/Family Goals Patient/Family Goals: Patient reported wanting to return to prior level of independence. Treatment Plan Speech Therapy Treatment Plan: Discontinue ST Treatment Duration: Sep 18, 2019 Frequency: 2 times per week Estimated Hrs Per Day: .25 hour per day Rehab Potential: Fair Barriers to Learning: Current medical status Pt/Family Agrees to Plan: Yes Safety Risks/Education Teaching Recipient: Patient Teaching Methods: Demonstration, Discussion Response to Teaching: Verbalize Understanding Education Topics Provided: Continued utilization of compensatory strategies Time Speech Therapy Time In: 08:10 Speech Therapy Time Out: 08:25 Total Billed Time: 15 Billed Treatment Time 1, KEYUR Mcleod Sep 18, 2019 14:10
== END 2019-09-18 12:28 | disposition home or self-care (01) | DRG 871 ==
LOC: EDUNIT# 22:41 → ER 22:42 → ICU 09-12 00:15 → 4TH 09-15 09:21
PROVIDERS: ADMIT Internal Medicine; ATTEND Internal Medicine
PROC: 5A1945Z Respiratory Ventilation, 24-96 Consecutive Hours (ICD-10-PCS; principal; 2019-09-11)
PROC: 0BH17EZ Insertion of Endotracheal Airway into Trachea, Via Natural or Artificial Opening (ICD-10-PCS; 2019-09-11)
DX: A41.9 Sepsis, unspecified organism (principal); R65.21 Severe sepsis with septic shock; J96.21 Acute and chronic respiratory failure with hypoxia; J96.22 Acute and chronic respiratory failure with hypercapnia; J43.9 Emphysema, unspecified; G47.33 Obstructive sleep apnea (adult) (pediatric); F17.210 Nicotine dependence, cigarettes, uncomplicated; J30.2 Other seasonal allergic rhinitis; I10 Essential (primary) hypertension; E78.00 Pure hypercholesterolemia, unspecified; E03.9 Hypothyroidism, unspecified; E11.9 Type 2 diabetes mellitus without complications; E87.5 Hyperkalemia; F41.9 Anxiety disorder, unspecified; F32.9 Major depressive disorder, single episode, unspecified; Z99.81 Dependence on supplemental oxygen; Z79.84 Long term (current) use of oral hypoglycemic drugs
CPT/HCPCS: 36415; 36600; 51702; 71045; 71275; 80048; 80053; 80202; 81000; 82805; 82962; 83605; 83735; 83880; 84100; 84484; 85025; 85610; 85730; 87040; 87070; 87077; 87081; 87088; 87186; 87205; 87449; 87804; 87899; 93005; 93041; 94002; 94003; 94640; 94760; 94799; 96361; 96365; 96367; 96372; 96375

== ENCOUNTER 2019-12-23 22:04 | Inpatient (IN) | payer MEDICAID ==
[~2019-12-23] VITALS: Ht 167.7 cm; Wt 103.8 kg
[~2019-12-23 22:04] MED LIST changes: +CEFU500T63 PO; +METO-333 PO; -NS IV 1000 ML 1,000 ML ONE
[2019-12-23 22:15] VITALS: BP 163/68
[2019-12-23] MEDS ORDERED: RT-ALBUTEROL SULF 2.5 MG/3 ML PRE-MIX VIAL INH STA (22:18)
[2019-12-23] MEDS ORDERED: RT-ALBUTEROL/IPRATROPIUM 3 ML (DUONEB) VIAL INH ONE (22:30)
[2019-12-23 23:02] LABS: BASOPHILS % (AUTO) 0 % (0-10); EOSINOPHILS % (AUTO) 0 % (0-10); HEMATOCRIT 45 % (35-52); HEMOGLOBIN 13.2 G/DL (11.5-16.0); LYMPHOCYTES # (AUTO) 0.8 X 10^3 (1.0-4.0); LYMPHOCYTES % (AUTO) 10 % (12-44); MEAN CORPUSCULAR HEMOGLOBIN 29 PG (25-34); MEAN CORPUSCULAR HGB CONC 30 G/DL (32-36); MEAN CORPUSCULAR VOLUME 97 FL (80-99); MEAN PLATELET VOLUME 9.4 FL (7.4-10.4); MONOCYTES # (AUTO) 0.3 X 10^3 (0.0-1.0); MONOCYTES % (AUTO) 4 % (0-12); NEUTROPHILS # (AUTO) 6.8 X 10^3 (1.8-7.8); NEUTROPHILS % (AUTO) 86 % (42-75); PLATELET COUNT 165 10^3/uL (130-400); RED CELL DISTRIBUTION WIDTH 15.2 % (10.0-14.5); WHITE BLOOD COUNT 7.9 10^3/uL (4.3-11.0)
[2019-12-23 23:25] LABS: ALBUMIN 3.6 GM/DL (3.2-4.5); CHLORIDE 91 MMOL/L (98-107); POTASSIUM 5.1 MMOL/L (3.6-5.0); SODIUM 140 MMOL/L (135-145)
[2019-12-23 23:27] LABS: CALCIUM 9.9 MG/DL (8.5-10.1); INR 0.9 (0.8-1.4)
[2019-12-23 23:28] LABS: ABG BASE EXCESS 14.9 MMOL/L (-2.5-2.5); ABG OXYGEN SATURATION 99 % (94-100); ABG PCO2 49 MMHG (35-45); ABG PH 7.52 (7.37-7.43); ABG PO2 143 MMHG (79-93); ABG TCO2 40.7 MMOL/L (21.0-31.0)
[2019-12-23 23:28] LABS: GLUCOSE 276 MG/DL (70-105)
[2019-12-23 23:29] LABS: ALLENS TEST YES-POS; INSPIRED O2 BIPAP 80%; PATIENT TEMP 36.6; VENTILATOR NO
[2019-12-23 23:29] LABS: CARBON DIOXIDE 42 MMOL/L (21-32)
[2019-12-23 23:30] LABS: BILIRUBIN,TOTAL 0.3 MG/DL (0.1-1.0)
[2019-12-23 23:30] LABS: BILIRUBIN,URINE NEGATIVE (NEGATIVE); CLARITY,URINE SL CLOUDY; COLOR,URINE YELLOW; GLUCOSE, URINE (UA) TRACE (NEGATIVE); KETONES,URINE NEGATIVE (NEGATIVE); LEUKOCYTE ESTERASE ,URINE NEGATIVE (NEGATIVE); NITRITE,URINE NEGATIVE (NEGATIVE); PROTEIN,URINE 3+ (NEGATIVE)
[2019-12-23 23:31] LABS: ALKALINE PHOSPHATASE 143 U/L (40-136)
[2019-12-23 23:32] LABS: GFR ESTIMATED > 60
[2019-12-23 23:33] LABS: BUN/CREATININE RATIO 11
[2019-12-23 23:34] LABS: ALANINE AMINOTRANSFERASE 9 U/L (0-55)
[2019-12-23 23:35] LABS: BACTERIA,URINE FEW /HPF; RBC,URINE RARE /HPF
[2019-12-23 23:36] LABS: WBC,URINE RARE /HPF
[2019-12-24] VITALS (24 sets, daily range): BP systolic 94–164; BP diastolic 42–98
[2019-12-24 00:12] LABS: AMPHETAMINE SCREEN, URINE NEGATIVE (NEGATIVE); BARBITURATE SCREEN URINE NEGATIVE (NEGATIVE); BENZODIAZEPINES SCREEN URINE NEGATIVE (NEGATIVE); CANNABINOID SCREEN, URINE NEGATIVE (NEGATIVE); COCAINE SCREEN URINE NEGATIVE (NEGATIVE); METHADONE STAT NEGATIVE (NEGATIVE); METHAMPHETAMINE SCREEN URINE S NEGATIVE (NEGATIVE); OPIATE SCREEN URINE NEGATIVE (NEGATIVE); OXYCODONE STAT NEGATIVE (NEGATIVE); PROPOXYPHENE STAT NEGATIVE (NEGATIVE); TRICYCLIC ANTIDEPRESSANTS SCRE NEGATIVE (NEGATIVE)
[2019-12-24] MEDS ORDERED: NS IV 1000 ML 1,000 ML IV SCH (00:20)
--- OUTSIDE RECORDS SUMMARY | 2019-12-24 00:27 | XMS REPORT ---
Author Author Don Jay Doctor Organization [facility] Address Unknown Phone Unavailable Care Team Providers Care Glove Operator Name Role Phone Migration, Doctor Unavailable Unavailable PROBLEMS Type Condition ICD9-CM Code FYG27-IN Code Onset Dates Condition S tatus SNOMED Code Problem Urinary incontinence R32 Active 987936480 Problem Hypothyroidism E03.9 Active 76872 008 Problem Allergic rhinitis J30.9 Active 61 250001 Problem 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 Active 22005307 Problem Microcytic anemia D50.9 Active 23 8168405 Problem Essential hypertension I10 Active 82471418 Problem Type 2 diabetes mellitus with other specified complication E11.69 Active 54054695 Problem Tobacco abuse Z72.0 Active 977005 000 Problem Parotiditis K11.20 Active 60785072 Problem Gastroesophageal reflux disease without esophagitis K21.9 Active 386933445 Problem Type II diabetes mellitus E11.9 Acti ve 23221366 Problem On home oxygen therapy Z99.81 Active 156491158224 Problem Morbid (severe) obesity due to excess calories E66 .01 Active 342261246 Problem Hyperlipidemia LDL goal <70 E78.5 Ac tive 15991265 Problem Seasonal allergic rhinitis due to pollen J30.1 Active 59900738 Problem Chronic bronchitis, unspecified chronic bronchitis type J42 Active 67054781 ALLERGIES No Information ENCOUNTERS Encounter Location Date Diagnosis [facility] [address] [facility] [id number], [place] [address] November, Hypothyroidism E03.9 [facility] [address] [facility] [id number] [address] [place] [address] November, Essential hypertension I10 [facility] [address] [facility] [id number] [address] [place] [address] November, [facility] [address] [id number] [address] November, [facility] [id number] [place] [address] November, Tobacco use disorder F17.200 ; 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 ; Encounter for tobacco use cessation counseling Z71.6 ; On home oxygen therapy Z99.81 ; Type 2 diabetes mellitus with other specified complication E11.69 ; Tobacco abuse Z72.0 and Morbid (severe) obesity due to excess calories E66.01 [facility] [address] [place] [address] 30 Oct, 2019 [facility] [address] [place] [id number] [address] [place] [address] Oct, [facility] [address] [address] Oct, [facility] [address] [id number] [address] [place] [address] Oct, Type II diabetes mellitus E1 1.9 [facility] [id number] [place] [address] 2012 [address] Oct, [facility] [address] [place] [address] Sep, [facility] [address] [id number] [address] [place] [address] 16 Sep, 2019 COPD (chronic obstructive pu lmonary disease) with 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 [facility] [address] [id number] [address] [place] [address] Sep, [facility] [address] [id number] [address] [place] [address] Aug, [facility] [id number] [place] [id number] 06 Aug, 2019 Essential hypertension I10 [facility] [address] [id number] [address] [place] [address] Jul, Parotiditis K11.20 [facility] [address] [id number] [place] [address] Jul, [facility] [address] [facility] [id number] [address] [place] [address] Jul, Type II diabetes mellitus E1 1.9 [facility] [address] [facility] [id number] [address] [place] [address] Jul, [facility] [address] [facility] [id number] [address] [place] [address] Jul, Pneumonia due to infectious organism, unspecified laterality, unspecified part of lung J18.9 ; On home oxygen therapy Z99.81 ; Type II diabetes mellitus E11.9 ; Tobacco use disorder F17.200 and Encounter for tobacco use cessation counseling Z71.6 [facility] [address] [facility] [id number] [address] [place] [address] 14 Apr, 2019 [facility] [address] [facility] [id number] [address] [place] [address] 30 Mar, 2019 Acute non-recurrent frontal sinusitis J01.10 [facility] [address] [facility] [id number] [address] [place] [address] 17 Mar, 2019 Type 2 diabetes mellitus wit hout complications E11.9 [facility] [address] [facility] [id number] [address] [place] [address] Mar, Type 2 diabetes mellitus wit hout complications E11.9 ; Essential hypertension I10 and Chronic bronchitis, unspecified chronic bronchitis type J42 [facility] [address] [facility] [id number] [address] [place] [address] Feb, [facility] [address] [facility] [id number] [address] [place] [address] Dec, [facility] [address] [facility] [id number] [address] [place] [address] Dec, [facility] [address] [facility] [id number] [address] [place] [address] November, [address] [place] [address] November, [facility] [place] [facility] [address] [facility] [address] [id number] [place] [address] November, [facility] [place] [facility] [address] [facility] [address] [id number] [place] [address] November, Allergic rhinitis J30.9 [facility] [address] [id number] [address] [place] [address] November, [facility] [address] [id number] [address] [place] [address] November, [facility] [address] [id number] [address] [place] [address] November, [facility] [address] [id number] [address] [place] [address] Oct, [facility] [address] [id number] [address] [place] [address] Oct, Essential hypertension I10 [facility] [address] [id number] [address] [place] [address] Oct, [facility] [address] [id number] [address] [place] [address] Oct, [facility] [address] [id number] [address] [place] [address] Oct, [facility] [address] [id number] [address] [place] [address] Oct, [facility] [address] [id number] [address] [place] [address] Oct, [facility] [address] [id number] [address] [place] [address] Oct, Shortness of breath R06.02 a nd Oxygen decrease R09.02 [facility] [address] [id number] [address] [place] [address] Oct, [facility] [address] [id number] [address] [place] [address] Sep, COPD (chronic obstructive pu lmonary disease) with 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 ; On home oxygen therapy Z99.81 and Hypothyroidism E03.9 [facility] [address] [facility] [id number] [address] [place] [address] Sep, [facility] [address] [facility] [id number] [address] [place] [address] Sep, [facility] [address] [facility] [id number] [address] [place] [address] Sep, Acute on chronic respiratory failure with hypoxia J96.21 ; Hypothyroidism E03.9 ; 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 ; Essential hypertension I10 ; Type 2 diabetes mellitus with other specified complication E11.69 ; [facility] current use of insulin Z79.4 and Hyperlipidemia LDL goal <70 E78.5 [place] [address] [facility] [id number] [address] [place] [address] Sep, Allergic rhinitis J30.9 [facility] [address] [facility] [id number] [address] [place] [address] Aug, Allergic rhinitis J30.9 [facility] [address] [facility] [id number] [address] [place] [address] Aug, [facility] [address] [facility] [id number] [address] [place] [address] Aug, [facility] [address] [facility] [id number] [address] [place] [address] Aug, [facility] [address] [facility] [id number] [address] [place] [address] Jul, [facility] [address] [id number] [address] [place] [address] Jul, Type 2 diabetes mellitus wit h other specified complication E11.69 [facility] [address] [facility] [id number] [address] [place] [address] Jun, [facility] [address] [place] [address] May, Hyperlipidemia LDL goal <70 E78.5 ; 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 and Encounter for immunization Z23 [facility] [address] [facility] [id number] [address] [place] [address] May, [facility] [address] [facility] [id number] [address] [place] [address] May, Acute upper respiratory infe ction J06.9 [facility] [address] [facility] [id number] [address] [place] [address] May, Essential hypertension I10 [facility] [address] [facility] [id number] [address] [place] [address] May, Essential hypertension I10 [facility] [address] [facility] [id number] [address] [place] [address] Apr, Essential hypertension I10 [facility] [address] [facility] [id number] [address] [place] [address] Apr, [facility] [address] [facility] [id number] [address] [place] [address] Apr, COPD (chronic obstructive pu lmonary disease) with 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 [facility] [address] [facility] [id number] [address] [place] [address] Apr, [facility] [address] [facility] [id number] [address] [place] [address] Mar, [facility] [address] 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 [id number] [address] [place] [address] Sep, [facility] [address] [address] Sep, [facility] [address] [id number] [address] [place] [address] Sep, [facility] [address] [id number] [address] [place] [address] Jul, Encounter for immunization Z [address] [facility] [address] [facility] [id number] [address] [place] [address] Jun, Subacute maxillary sinusitis J01.00 [facility] [address] [facility] [id number] [address] [place] [address] May, [facility] [address] [id number] [address] [place] [address] May, [facility] [address] [address] May, Type II diabetes mellitus E1 1.9 ; Hypothyroidism E03.9 ; 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 ; Cough R05 ; COPD with exacerbation J44.1 and Pneumonia of right lower lobe due to infectious organism J18.1 [place] [address] [address] Mar, Hyperlipidemia, unspecified hyperlipidemia type E78.5 [place] [address] [address] Mar, Hypothyroidism E03.9 and Hyp erlipidemia, unspecified hyperlipidemia type E78.5 [place] [address] [address] Feb, Type II diabetes mellitus E1 1.9 ; Hypothyroidism E03.9 ; 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 ; Obesity due to excess calories E66.09 ; Allergic rhinitis J30.9 ; Microcytic anemia D50.9 ; Gastroesophageal reflux disease without esophagitis K21.9 ; Essential hypertension I10 ; Hyperlipidemia, unspecified hyperlipidemia type E78.5 ; Recurrent major depressive disorder, in full remission F33.42 and Urinary incontinence R32 [place] [address] [address] Jan, [place] [address] [address] Jan, [place] [address] [address] November, [place] [address] [address] Sep, Type II diabetes mellitus E1 1.9 ; Hypothyroidism E03.9 ; On home oxygen therapy Z99.81 ; Gastroesophageal reflux disease without esophagitis K21.9 ; Recurrent major depressive disorder, in full remission F33.42 ; Essential hypertension I10 ; 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 ; Urinary incontinence R32 ; Anemia D64.9 ; Allergic rhinitis J30.9 ; Hyperlipidemia, unspecified hyperlipidemia type E78.5 and Tinea pedis of both feet B35.3 [facility] [address] [address] Jun, [facility] [address] [id number] [address] [place] [address] 09 Jun, 2016 Acute upper respiratory infe ction, unspecified J06.9 and Other viral agents as the cause of diseases classified elsewhere B97.89 [place] [address] [address] May, [address] [address] May, Type 2 diabetes mellitus wit h hyperglycemia E11.65 ; Hypothyroidism E03.9 ; Obesity due to excess calories E66.09 ; Allergic rhinitis J30.9 ; Dysuria R30.0 ; 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 ; Gastroesophageal reflux disease without esophagitis K21.9 ; Urinary incontinence R32 ; Essential hypertension I10 ; Hyperlipidemia, unspecified hyperlipidemia type E78.5 ; Microcytic anemia D50.9 ; Oral thrush B37.0 and Encounter for immunization Z23 [place] [address] [address] Apr, [place] [address] [address] Apr, [place] [address] [address] Mar, [place] [address] [address] Dec, [place] [address] [address] Dec, [place] [address] [address] Dec, Encounter for well woman exa m with routine gynecological exam Z01.419 ; Encounter for screening for malignant neoplasm of cervix Z12.4 ; Screening mammogram, encounter for Z12.31 ; Encounter for screening breast examination Z12.39 ; On home oxygen therapy Z99.81 ; 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 ; Heat rash L74.0 ; Type II diabetes mellitus E11.9 and Hypothyroidism E03.9 [facility] [address] [facility] [id number] [address] [place] [address] November, [facility] [address] [address] November, Type II diabetes mellitus E1 1.9 ; Allergic rhinitis J30.9 ; Hypothyroidism E03.9 ; Obesity due to excess calories E66.09 ; Urinary incontinence R32 ; Gastroesophageal reflux disease without esophagitis K21.9 and Essential hypertension I10 [place] [address] [place] [id number] [place] [address] Oct, [place] [address] [place] [id number] [address] [place] [address] Sep, [facility] [address] [id number] [address] [place] [address] Sep, [facility] [address] [facility] [id number] [address] [place] [address] 27 Aug, 2015 Acute maxillary sinusitis J0 1.00 [facility] [address] [facility] [id number] [address] [place] [address] Aug, [facility] [address] [facility] [id number] [address] [place] [address] Aug, [facility] [address] [place] [id number] [address] [place] [address] 16 Aug, 2015 Type II diabetes mellitus E1 1.9 [facility] [address] [facility] [facility] [id number] [address] [place] [address] 05 Aug, 2015 Type II diabetes mellitus E1 1.9 ; Hypothyroidism E03.9 ; 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 ; Obesity due to excess calories E66.09 ; Urinary incontinence R32 ; Anemia D64.9 ; Microcytic anemia D50.9 and Allergic rhinitis J30.9 [place] [address] [address] 11 May, 2015 Upper respiratory symptom R0 9.89 [place] [address] [address] May, Oral thrush B37.0 [place] [address] [address] Apr, Hypothyroidism E03.9 and Harish rocytic anemia D50.9 [place] [address] [address] Apr, Encounter for long-term curr ent use of medication Z79.899 ; Hypothyroidism E03.9 ; Microcytic anemia D50.9 ; Type 2 diabetes mellitus without complication E11.9 ; Essential hypertension I10 and Mixed incontinence N39.46 [place] [address] [address] Apr, [place] [address] [address] Mar, [place] [address] [address] Mar, [place] [address] [address] Mar, [place] [address] [address] Mar, [place] [address] [address] Mar, [facility] [address] [address] Mar, [place] [address] [address] Mar, [facility] [address] [id number] [address] [place] [address] Feb, Cough 786.2 ; Wheezing 786.0 7 ; Hypothyroidism 244.9 and Encounter for long-term current use of medication V58.69 [facility] [address] [facility] [facility] [id number] [address] [place] [address] Feb, Diabetes type 2, uncontrolle d 250.02 ; Depression 311 ; Encounter for long-term current use of medication V58.69 and Hypothyroidism 244.9 [facility] [address] [id number] [address] [place] [address] Feb, [facility] [address] [id number] [address] [place] [address] Jan, [facility] [address] [facility] [facility] [id number] [address] [place] [address] Oct, [facility] [address] [facility] [facility] [id number] [address] [place] [address] Oct, [facility] [address] [facility] [facility] [id number] [address] [place] [address] Oct, [facility] [address] [facility] [id number] [address] [place] [address] Sep, [facility] [address] [facility] [facility] [id number] [address] [place] [address] Sep, [facility] [address] [facility] [facility] [id number] [address] [place] [address] Sep, [facility] [address] [facility] [facility] [place] [id number] [address] [place] [id number] Aug, [facility] [address] [facility] [place] [id number] [address] [place] [id number] Aug, [facility] [address] [facility] [place] [id number] [address] [place] [id number] Jul, [facility] [address] [facility] [place] [id number] [address] [place] [phone] Jul, [facility] [address] [id number] [address] [place] [address], [place] [id number] Jul, [facility] [address] [id number] [address] [place] [id number] Jul, [facility] [address] [id number] [address] [place] [address], [place] [id number] Jul, [facility] [address] [id number] [address] [place] [id number] Jul, [facility] [address] [id number] [address] [place] [address], [place] [id number] Jul, [facility] [address] [id number] [address] [place] [address], [place] [address] Jul, [facility] [address] [id number] [address] [place] [id number] Jun, [facility] [address] [id number] [address] [place] [address], [place] [address] Jun, [facility] [address] [id number] [address] [place] [id number] May, [facility] [address] [id number] [address] [place] [id number] May, [facility] [facility] [address] [id number] [address] [place] [address] May, [facility] [address] [id number] [address] [place] [address] Apr, [facility] [address] [id number] [address] [place] [address], [place] [address] Apr, [facility] [address] [id number] [address] [place] [address], [place] [address] Apr, [facility] [address] [id number] [address] [place] [address], [place] [address] Apr, [facility] [address] [id number] [address] [place] [address], [place] [address] 13 Apr, 2014 [facility] [address] [id number] [address] [place] [address], [place] [address] Apr, [facility] [address] [id number] [address] [place] [address], [place] [address] 22 Mar, 2014 [facility] [address] [id number] [address] [place] [address], [place] [address] Mar, [facility] [address] [id number] [address] [place] [address], [place] [address] Mar, [facility] [address] [id number] [address] [place] [address], [place] [address] Mar, [facility] [address] [id number] [address] [place] [address], [place] [address] Sep, [facility] [address] [id number] [address] [place] [address], [place] [address] Sep, [facility] [address] [id number] [address] [place] [address], [place] [address] Sep, [facility] [address] [id number] [address] [place] [address], [place] [address] Sep, [facility] [address] [id number] [address] [place] [address], [place] [address] Aug, [facility] [address] [id number] [address] [place] [address], [place] [address] Aug, [facility] [address] [id number] [address] [place] [address], [place] [address] Aug, [facility] [address] [id number] [address] [place] [address], [place] [address] Aug, [facility] [address] [id number] [address] [place] [address], [place] [address] Aug, [facility] [address] [id number] [address] [place] [address], [place] [address] Aug, [facility] [address] [id number] [address] [place] [address], [place] [address] Jul, [facility] [address] [id number] [address] [place] [address], [place] [address] Jul, [facility] [address] [id number] [address] [place] [address], [place] [address] Jul, [facility] [address] [id number] [address] [place] [address] Jul, [facility] [address] [id number] [address] [place] [address], [place] [address] Jun, [facility] [address] [id number] [address] [place] [address], [place] [address] Jun, [facility] [address] [id number] [address] [place] [address], [place] [address] May, [facility] [address] [id number] [address] [place] [address], [place] [address] May, [facility] [address] [id number] [address] [place] [address], [place] [address] Apr, [facility] [address] [id number] [address] [place] [address], [place] [address] Apr, [facility] [address] [id number] [address] [place] [address], [place] [address] Apr, [facility] [address] [id number] [address] [place] [address], [place] [address] 19 Mar, 2013 [facility] [address] [id number] [address] [place] [address], [place] [address] 11 Mar, 2013 [facility] [address] [id number] [address] [place] [address], [place] [address] 04 Mar, 2013 [facility] [address] [id number] [address] [place] [address], [place] [address] 03 Mar, 2013 [facility] [address] [id number] [address] [place] [address], [place] [address] Feb, [facility] [address] [id number] [address] [place] [address], [place] [address] Jan, [facility] [address] [id number] [address] [place] [address], [place] [address] Jan, [facility] [address] [id number] [address] [place] [address], [place] [address] Jan, [facility] [address] [id number] [address] [place] [address], [place] [address] Jan, [facility] [address] [id number] [address] [place] [address], [place] [address] Dec, [facility] [address] [id number] [address] [place] [address], [place] [address] Dec, [facility] [address] [id number] [address] [place] [address], [place] [address] Dec, [facility] [address] [id number] [address] [place] [address], [place] [address] Dec, [facility] [address] [id number] [address] [place] [address], [place] [address] Dec, [facility] [address] [id number] [address] [place] [address], [place] [address] Dec, [facility] [address] [id number] [address] [place] [address], [place] [address] November, [facility] [address] [id number] [address] [place] [address], [place] [address] November, [facility] [address] [id number] [address] [place] [address], [place] [address] November, [facility] [address] [id number] [address] [place] [address], [place] [address] Oct, [facility] [address] [id number] [address] [place] [address], [place] [address] Oct, [facility] [address] [id number] [address] [place] [address], [place] [address] Sep, [facility] [address] [id number] [address] [place] [address], [place] [address] Sep, [facility] [address] [id number] [address] [place] [address], [place] [address] Sep, [facility] [address] [id number] [address] [place] [address], [place] [address] Sep, [facility] [address] [id number] [address] [place] [address], [place] [address] Sep, [facility] [address] [id number] [address] [place] [address], [place] [address] Aug, [facility] [address] [id number] [address] [place] [address], [place] [address] Aug, [facility] [address] [id number] [address] [place] [address], [place] [address] Aug, [facility] [address] [id number] [address] [place] [address], [place] [address] Aug, [facility] [address] [id number] [address] [place] [address], [place] [address] Aug, [facility] [address] [id number] [address] [place] [address], [place] [address] Jul, [facility] [address] [id number] [address] [place] [address], [place] [address] Jul, [facility] [address] [id number] [address] [place] [address], [place] [address] Jun, [facility] [address] [id number] [address] [place] [address], [place] [address] Jun, [facility] [address] [id number] [address] [place] [address], [place] [address] Jun, [facility] [address] [id number] [address] [place] [address], [place] [address] 18 Jun, 2012 [facility] [address] [id number] [address] [place] [address], [place] [address] 10 Jun, 2012 [facility] [address] [id number] [address] [place] [address], [place] [address] Jun, [facility] [address] [id number] [address] [place] [address], [place] [address] 07 Jun, 2012 [facility] [address] [id number] [address] [place] [address], [place] [address] Jun, [facility] [address] [id number] [address] [place] [address], [place] [address] Jun, [facility] [address] [id number] [address] [place] [address], [place] [address] May, [facility] [address] [id number] [address] [place] [address], [place] [address] May, [facility] [address] [id number] [address] [place] [address], [place] [address] May, [facility] [address] [id number] [address] [place] [address], [place] [address] May, [facility] [address] [id number] [address] [place] [address], [place] [address] May, [facility] [address] [id number] [address] [place] [address], [place] [address] May, [facility] [address] [id number] [address] [place] [address], [place] [address] May, [facility] [address] [id number] [address] [place] [address], [place] [address] 09 Apr, 2012 [facility] [address] [id number] [address] [place] [address], [place] [address] 11 Mar, 2012 [facility] [address] [id number] [address] [place] [address], [place] [address] Mar, [facility] [address] [id number] [address] [place] [address], [place] [address] Feb, [facility] [address] [id number] [address] [place] [address], [place] [address] Feb, [facility] [address] [id number] [address] [place] [address], [place] [address] Feb, [facility] [address] [id number] [address] [place] [address], [place] [address] Feb, [facility] [address] [id number] [address] [place] [address], [place] [address] Jan, [facility] [address] [id number] [address] [place] [address], [place] [address] Jan, [facility] [address] [id number] [address] [place] [address], [place] [address] Jan, [facility] [address] [id number] [address] [place] [address], [place] [address] Jan, [facility] [address] [id number] [address] [place] [address], [place] [address] Dec, [facility] [address] [id number] [address] [place] [address], [place] [address] Dec, [facility] [address] [id number] [address] [place] [address], [place] [address] Dec, [facility] [address] [id number] [address] [place] [address], [place] [address] 15 Dec, 2011 [facility] [address] [id number] [address] [place] [address], [place] [address] Dec, [facility] [address] [id number] [address] [place] [address], [place] [address] Sep, [facility] [address] [id number] [address] [place] [address], [place] [address] Aug, [facility] [address] [id number] [address] [place] [address] Jul, [facility] [address] [id number] [address] [place] [address] Jun, [facility] [address] [id number] [address] [place] [address] Jun, [facility] [address] [id number] [address] [place] [address] Jun, [facility] [address] [id number] [address] [place] [address] Jun, [facility] [address] [id number] [address] [place] [address] May, [facility] [address] [id number] [address] [place] [address] May, [facility] [address] [id number] [address] [place] [address] Apr, [facility] [address] [id number] [address] [place] [address] Jun, [facility] [address] [id number] [address] [place] [address] Apr, IMMUNIZATIONS No Known Immunizations SOCIAL HISTORY Never Assessed REASON FOR VISIT PLAN OF CARE VITAL SIGNS MEDICATIONS Unknown Medications RESULTS No Results PROCEDURES No Known procedures INSTRUCTIONS MEDICATIONS ADMINISTERED No Known Medications MEDICAL (GENERAL) HISTORY Type Description Date Medical History hypertension Medical History Hypothyroidism Medical History chronic obstructive pulmonary disease (C OPD) Medical History obesity Medical History type II diabetes Medical History insomnia Medical History sleep apnea Medical History oxygen dependent Medical History mood disorder Surgical History cholecystectomy Hospitalization History decreased oxygen level 11/2017 Hospitalization History pneumonia 10/07 Hospitalization History [facility] 03/09/19 Hospitalization History via [facility]. 07/17/19
--- OUTSIDE RECORDS SUMMARY | 2019-12-24 00:28 | XMS REPORT ---
Author Author Don Jay Doctor Organization [facility] Address Unknown Phone Unavailable Care Team Providers Care Nursing Clinical Director Name Role Phone Migration, Doctor Unavailable Unavailable PROBLEMS Type Condition ICD9-CM Code CUG07-PL Code Onset Dates Condition S tatus SNOMED Code Problem Urinary incontinence R32 Active 839798637 Problem Hypothyroidism E03.9 Active 01454 008 Problem Allergic rhinitis J30.9 Active 61 754274 Problem 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 Active 78637722 Problem Microcytic anemia D50.9 Active 23 0696780 Problem Essential hypertension I10 Active 34952910 Problem Type 2 diabetes mellitus with other specified complication E11.69 Active 97719741 Problem Tobacco abuse Z72.0 Active 620058 000 Problem Parotiditis K11.20 Active 06032050 Problem Gastroesophageal reflux disease without esophagitis K21.9 Active 319944129 Problem Type II diabetes mellitus E11.9 Acti ve 07159867 Problem On home oxygen therapy Z99.81 Active 389420409297 Problem Morbid (severe) obesity due to excess calories E66 .01 Active 456161367 Problem Hyperlipidemia LDL goal <70 E78.5 Ac tive 07739062 Problem Seasonal allergic rhinitis due to pollen J30.1 Active 56823125 Problem Chronic bronchitis, unspecified chronic bronchitis type J42 Active 59284298 ALLERGIES No Information ENCOUNTERS Encounter Location Date Diagnosis [facility] [address] [facility] [id number] [address] [place] [address] November, [facility] [address] [facility] [id number] [address] [place] [address] November, [facility] [address] [id number] [address] November, [facility] [place] [address] [facility] [id number] [place] [address] November, Tobacco use disorder F17.200 ; 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 ; Encounter for tobacco use cessation counseling Z71.6 ; On home oxygen therapy Z99.81 ; Type 2 diabetes mellitus with other specified complication E11.69 ; Tobacco abuse Z72.0 and Morbid (severe) obesity due to excess calories E66.01 [facility] [address] [place] [id number] [address] [place] [address] 30 Oct, 2019 [facility] [address] [place] [address] Oct, [facility] [address] [place] [id number] [address] [place] [address] Oct, [place] [address] [address] Oct, Type II diabetes mellitus E1 1.9 [facility] [id number] [place] [phone] Oct, [facility] [address] [address] Sep, [facility] [address] [address] [id number] [address] [place] [address] 16 Sep, 2019 COPD (chronic obstructive pu lmonary disease) with 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 [facility] [address] [address] [id number] [address] [place] [address] 02 Sep, 2019 [facility] [address] [place] [address] 07 Aug, 2019 [facility] [id number] [place] [phone] 06 Aug, 2019 Essential hypertension I10 [facility] [address] [id number] [address] [place] [address] Jul, Parotiditis K11.20 [facility] [address] [id number] [address] [place] [address] Jul, [facility] [address] [id number] [address] [place] [address] Jul, Type II diabetes mellitus E1 1.9 [facility] [address] [facility] [id number] [address] [place] [address] Jul, [facility] [address] [facility] [id number] [address] [place] [address] Jul, Pneumonia due to infectious organism, unspecified laterality, unspecified part of lung J18.9 ; On home oxygen therapy Z99.81 ; Type II diabetes mellitus E11.9 ; Tobacco use disorder F17.200 and Encounter for tobacco use cessation counseling Z71.6 [facility] [address] [facility] [id number] [address] [place] [address] 14 Apr, 2019 [facility] [address] [facility] [id number] [address] [place] [address] 30 Mar, 2019 Acute non-recurrent frontal sinusitis J01.10 [facility] [address] [facility] [id number] [address] [place] [address] 17 Mar, 2019 Type 2 diabetes mellitus wit hout complications E11.9 [facility] [address] [facility] [id number] [address] [place] [address] 04 Mar, 2019 Type 2 diabetes mellitus wit hout complications E11.9 ; Essential hypertension I10 and Chronic bronchitis, unspecified chronic bronchitis type J42 [facility] [address] [facility] [id number] [address] [place] [address] Feb, [facility] [address] [facility] [id number] [address] [place] [address] Dec, [facility] [address] [facility] [id number] [address] [place] [address] Dec, [facility] [address] [facility] [id number] [address] [place] [address] November, [facility] [place] [address] [id number] [place] [address] November, [facility] [place] [address] [id number] [place] [address] November, [address] [id number] [place] [address] November, Allergic rhinitis J30.9 [facility] [address] [id number] [address] [place] [address] November, [facility] [address] [id number] [address] [place] [address] November, [facility] [address] [id number] [address] [place] [address] November, [facility] [address] [id number] [address] [place] [address] Oct, [facility] [address] [id number] [address] [place] [address] Oct, Essential hypertension I10 [facility] [address] [id number] [address] [place] [address] Oct, [facility] [address] [id number] [address] [place] [address] Oct, [facility] [address] [id number] [address] [place] [address] Oct, [facility] [address] [facility] [id number] [address] [place] [address] Oct, [facility] [address] [id number] [address] [place] [address] Oct, [facility] [address] [id number] [address] [place] [address] Oct, Shortness of breath R06.02 a nd Oxygen decrease R09.02 [facility] [address] [id number] [address] [place] [address] Oct, [facility] [address] [facility] [id number] [address] [place] [address] Sep, COPD (chronic obstructive pu lmonary disease) with 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 ; On home oxygen therapy Z99.[address] [facility] [address] [facility] [id number] [address] [place] [address] Sep, [facility] [address] [facility] [id number] [address] [place] [address] Sep, [facility] [address] [facility] [id number] [address] [place] [address] Sep, Acute on chronic respiratory failure with hypoxia J96.21 ; Hypothyroidism E03.9 ; 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 ; Essential hypertension I10 ; Type 2 diabetes mellitus with other specified complication E11.69 ; assisted current use of insulin Z79.4 and Hyperlipidemia LDL goal <[address] [facility] [address] [facility] [id number] [address] [place] [address] Sep, Allergic rhinitis J30.9 [facility] [address] [facility] [id number] [address] [place] [address] Aug, Allergic rhinitis J30.9 [facility] [address] [facility] [id number] [address] [place] [address] Aug, [facility] [address] [facility] [id number] [address] [place] [address] Aug, [facility] [address] [facility] [id number] [address] [place] [address] Aug, [facility] [address] [facility] [id number] [address] [place] [address] Jul, [facility] [address] [facility] [id number] [address] [place] [address] Jul, Type 2 diabetes mellitus wit h other specified complication E11.69 [facility] [address] [facility] [id number] [address] [place] [address] Jun, [facility] [address] [facility] [id number] [address] [place] [address] May, Hyperlipidemia LDL goal <70 E78.5 ; 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 and Encounter for immunization Z23 [facility] [address] [place] [address] May, [facility] [address] [id number] [address] [place] [address] May, Acute upper respiratory infe ction J06.9 [facility] [id number] [place] [address] May, Essential hypertension I10 [facility] [address] [facility] [id number] [place] [address] May, Essential hypertension I10 [facility] [address] [address] Apr, Essential hypertension I10 [facility] [address] [address] Apr, [facility] [address] [address] Apr, COPD (chronic obstructive pu lmonary disease) with 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 [facility] [address] [address] Apr, [facility] [address] [address] Mar, [facility] [address] [address] Feb, Type 2 diabetes mellitus wit h other specified complication E11.69 ; assisted current use of insulin Z79.4 ; Essential hypertension I10 ; Hyperlipidemia LDL goal <70 E78.5 ; 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 ; Microcytic anemia D50.9 ; Morbid (severe) obesity due to excess calories E66.01 ; Body mass index (BMI) of 39.0-39.9 in adult Z68.39 ; Hypothyroidism E03.9 and Seasonal allergic rhinitis due to pollen J30.1 [facility] [id number] [place] [address] 15 Nov, 2017 Pneumonia of right lower lob e due to infectious organism J18.1 ; assisted current use of insulin Z79.4 ; Type [...] rhinitis J30.9 [facility] [address] [id number] [address] [place] [address] November, [facility] [address] [id number] [address] [place] [address] Sep, [facility] [address] [address] Sep, [facility] [address] [id number] [address] [place] [address] Sep, [facility] [address] [address] Sep, [facility] [id number] [address] [place] [address] Jul, Encounter for immunization Z 23 [facility] [address] [id number] [address] [place] [address] Jun, Subacute maxillary sinusitis J01.00 [facility] [address] [id number] [address] [place] [address] May, [facility] [id number] [address] [place] [address] May, [facility] [id number] [address] [place] [address] 07 May, 2017 Type II diabetes mellitus E1 1.9 ; Hypothyroidism E03.9 ; 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 ; Cough R05 ; COPD with exacerbation J44.1 and Pneumonia of right lower lobe due to infectious organism J18.1 [place] [address] [address] Mar, Hyperlipidemia, unspecified hyperlipidemia type E78.5 [place] [id number] [place] [address] Mar, Hypothyroidism E03.9 and Hyp erlipidemia, unspecified hyperlipidemia type E78.5 [place] [id number] [place] [address] Feb, Type II diabetes mellitus E1 1.9 [...] full remission F33.42 and Urinary incontinence R32 [place] [address] [address] Jan, [place] [address] [address] Jan, [place] [address] [address] November, [place] [address] [id number] [place] [address] Sep, Type II diabetes mellitus E1 1.9 [...] and Tinea pedis of both feet B35.3 [place] [address] [address] [id number] [place] [address] Jun, [facility] [address] [id number] [address] [place] [address] Jun, Acute upper respiratory infe ction, unspecified J06.9 and Other viral agents as the cause of diseases classified elsewhere B97.89 [place] [id number] [address] [place] [address] May, [place] [address] [address] May, Type 2 diabetes mellitus wit h [...] thrush B37.0 and Encounter for immunization Z23 [place] [id number] [place] [address] Apr, [place] [id number] [address] [place] [address] Apr, [place] [id number] [address] [place] [address] Mar, [place] [id number] [address] [place] [address] Dec, [place] [address] [id number] [address] [place] [address] Dec, [address] [address] Dec, Encounter for well woman exa m with routine gynecological exam Z01.419 ; Encounter for screening for malignant neoplasm of cervix Z12.4 ; Screening mammogram, encounter for Z12.31 ; Encounter for screening breast examination Z12.39 ; On home oxygen therapy Z99.81 ; 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 ; Heat rash L74.0 ; Type II diabetes mellitus E11.[address] [facility] [address] [id number] [place] [address] November, [facility] [address] [address] November, Type II diabetes mellitus E1 1.9 ; Allergic rhinitis J30.9 ; Hypothyroidism E03.9 ; Obesity due to excess calories E66.09 ; Urinary incontinence R32 ; Gastroesophageal reflux disease without esophagitis K21.9 and Essential hypertension I10 [facility] [address] [address] Oct, [facility] [address] [address] Sep, [facility] [address] [address] Sep, [facility] [address] [id number] [address] [place] [address] Aug, Acute maxillary sinusitis J0 1.00 [facility] [address] [address] Aug, [facility] [address] [address] Aug, [facility] [address] [address] Aug, Type II diabetes mellitus E1 1.9 [place] [address] [address] 05 Aug, 2015 Type II diabetes mellitus E1 1.9 ; Hypothyroidism E03.9 ; 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 ; Obesity due to excess calories E66.09 ; Urinary incontinence R32 ; Anemia D64.9 ; Microcytic anemia D50.9 and Allergic rhinitis J30.9 [facility] [address] [id number] [place] [address] May, Upper respiratory symptom R0 9.89 [place] [address] [address] May, Oral thrush B37.0 [place] [address] [address] Apr, Hypothyroidism E03.9 and Harish rocytic anemia D50.9 [place] [address] [address] Apr, Encounter for long-term curr ent use of medication Z79.899 ; Hypothyroidism E03.9 ; Microcytic anemia D50.9 ; Type 2 diabetes mellitus without complication E11.9 ; Essential hypertension I10 and Mixed incontinence N39.46 [place] [address] [address] Apr, [facility] [address] [address] Mar, [facility] [address] [address] Mar, [facility] [address] [address] Mar, [facility] [address] [address] Mar, [facility] [address] [address] Mar, [facility] [address] [address] Mar, [facility] [address] [address] Mar, [facility] [address] [address] Feb, Cough 786.2 ; Wheezing 786.0 7 ; Hypothyroidism 244.9 and Encounter for long-term current use of medication V58.69 [facility] [address] [id number] [address] [place] [address] Feb, Diabetes type 2, uncontrolle d 250.02 ; Depression 311 ; Encounter for long-term current use of medication V58.[address] [facility] [address] [id number] [address] [place] [address] Feb, [facility] [address] [id number] [address] [place] [address] Jan, [facility] [address] [id number] [address] [place] [address] Oct, [facility] [address] [facility] [id number] [address] [place] [address] Oct, [facility] [address] [facility] [id number] [address] [place] [address] Oct, [facility] [address] [id number] [address] [place] [address] Sep, [facility] [address] [id number] [address] [place] [address] Sep, [facility] [address] [facility] [id number] [address] [place] [address] Sep, [facility] [address] [id number] [address] [place] [address] Aug, [facility] [address] [id number] [address] [place] [address] Aug, [facility] [address] [facility] [id number] [address] [place] [address] Jul, [facility] [address] [facility] [id number] [address] [place] [address] Jul, [facility] [address] [facility] [id number] [address] [place] [address] Jul, [facility] [address] [id number] [address] [place] [address], [place] [address] Jul, [facility] [address] [id number] [address] [place] [address], [place] [address] Jul, [facility] [address] [id number] [address] [place] [address], [place] [address] Jul, [facility] [address] [id number] [address] [place] [address], [place] [address] Jul, [facility] [address] [id number] [address] [place] [address], [place] [address] Jul, [facility] [address] [id number] [address] [place] [address], [place] [address] Jun, [facility] [address] [id number] [address] [place] [address], [place] [address] Jun, [facility] [address] [id number] [address] [place] [address], [place] [address] May, [facility] [address] [id number] [address] [place] [address], [place] [address] May, [facility] [address] [id number] [address] [place] [address], [place] [address] May, [facility] [address] [id number] [address] [place] [address], [place] [address] Apr, [facility] [address] [id number] [address] [place] [address] Apr, [facility] [address] [id number] [address] [place] [address], [place] [address] Apr, [facility] [address] [id number] [address] [place] [address], [place] [address] Apr, [facility] [address] [id number] [address] [place] [address], [place] [address] Apr, [facility] [address] [id number] [address] [place] [address], [place] [address] 13 Apr, 2014 [facility] [address] [id number] [address] [place] [address], [place] [address] 22 Mar, 2014 [facility] [address] [id number] [address] [place] [address], [place] [address] 22 Mar, 2014 [facility] [address] [id number] [address] [place] [address], [place] [address] 19 Mar, 2014 [facility] [address] [id number] [address] [place] [address], [place] [id number] 19 Mar, 2014 [facility] [address] [id number] [address] [place] [address], [place] [id number] 19 Sep, 2013 [facility] [address] [id number] [address] [place] [address], [place] [id number] Sep, [facility] [address] [id number] [address] [place] [address], [place] [id number] Sep, [facility] [address] [id number] [address] [place] [address], [place] [id number] Sep, [facility] [address] [id number] [address] [place] [address], [place] [id number] Aug, [facility] [address] [id number] [address] [place] [address], [place] [id number] Aug, [facility] [address] [id number] [address] [place] [address], [place] [id number] Aug, [facility] [address] [id number] [address] [place] [address], [place] [id number] Aug, [facility] [address] [id number] [address] [place] [address], [place] [id number] Aug, [facility] [address] [id number] [address] [place] [address], [place] [id number] Aug, [facility] [address] [id number] [address] [place] [address], [place] [id number] Jul, [facility] [address] [id number] [address] [place] [address], [place] [id number] Jul, [facility] [address] [id number] [address] [place] [address], [place] [id number] Jul, [facility] [address] [id number] [address] [place] [address], [place] [id number] Jul, [facility] [address] [id number] [address] [place] [address], [place] [id number] Jun, [facility] [address] [id number] [address] [place] [address], [place] [id number] Jun, [facility] [address] [id number] [address] [place] [address], [place] [id number] May, [facility] [address] [id number] [address] [place] [address], [place] [id number] May, [facility] [address] [id number] 27 [place] [address], [place] [id number] Apr, [facility] [address] [id number] [address] [place] [address], [place] [address] Apr, [facility] [address] [id number] [address] [place] [address], [place] [address] Apr, [facility] [address] [id number] [address] [place] [address], [place] [address] Mar, [facility] [address] [id number] [address] [place] [address], [place] [address] 11 Mar, 2013 [facility] [address] [id number] [address] [place] [address], [place] [id number] 04 Mar, 2013 [facility] [address] [id number] [address] [place] [address], [place] [address] 03 Mar, 2013 [facility] [address] [id number] [address] [place] [address], [place] [address] Feb, [facility] [address] [id number] [address] [place] [address] [place] [address] Jan, [facility] [address] [id number] [address] [place] [address], [place] [address] Jan, [facility] [address] [id number] [address] [place] [address], [place] [address] Jan, [facility] [address] [id number] [address] [place] [address], [place] [address] Jan, [facility] [address] [id number] [address] [place] [address], [place] [address] Dec, [facility] [address] [id number] [address] [place] [address], [place] [address] Dec, [facility] [address] [id number] [address] [place] [address], [place] [address] Dec, [facility] [address] [id number] [address] [place] [address], [place] [address] Dec, [facility] [address] [id number] [address] [place] [address], [place] [address] Dec, [facility] [address] [id number] [address] [place] [address], [place] [address] Dec, [facility] [address] [id number] [address] [place] [address], [place] [address] November, [facility] [address] [id number] [address] [place] [address], [place] [address] November, [facility] [address] [id number] [address] [place] [address], [place] [address] November, [facility] [address] [id number] [address] [place] [address], [place] [address] Oct, [facility] [address] [id number] [address] [place] [address], [place] [address] Oct, [facility] [address] [id number] [address] [place] [address], [place] [address] Sep, [facility] [address] [id number] [address] [place] [address], [place] [address] Sep, [facility] [address] [id number] [address] [place] [address], [place] [address] Sep, [facility] [address] [id number] [address] [place] [address], [place] [address] Sep, [facility] [address] [id number] [address] [place] [address], [place] [address] Sep, [facility] [address] [id number] [address] [place] [address], [place] [address] Aug, [facility] [address] [id number] [address] [place] [address], [place] [address] Aug, [facility] [address] [id number] [address] [place] [address], [place] [address] Aug, [facility] [address] [id number] [address] [place] [address], [place] [address] Aug, [facility] [address] [id number] [address] [place] [address], [place] [address] Aug, [facility] [address] [id number] [address] [place] [address], [place] [address] Jul, [facility] [address] [id number] [address] [place] [address], [place] [address] Jul, [facility] [address] [id number] [address] [place] [address], [place] [address] Jun, [facility] [address] [id number] [address] [place] [address], [place] [address] Jun, [facility] [address] [id number] [address] [place] [address], [place] [address] Jun, [facility] [address] [id number] [address] [place] [address], [place] [address] Jun, [facility] [address] [id number] [address] [place] [address], [place] [address] Jun, [facility] [address] [id number] [address] [place] [address], [place] [address] Jun, [facility] [address] [id number] [address] [place] [address], [place] [address] Jun, [facility] [address] [id number] [address] [place] [address], [place] [address] Jun, [facility] [address] [id number] [address] [place] [address], [place] [address] Jun, [facility] [address] [id number] [address] [place] [address], [place] [address] May, [facility] [address] [id number] [address] [place] [address], [place] [address] May, [facility] [address] [id number] [address] [place] [address], [place] [address] May, [facility] [address] [id number] [address] [place] [address], [place] [address] May, [facility] [address] [id number] [address] [place] [address], [place] [address] May, [facility] [address] [id number] [address] [place] [address], [place] [address] May, [facility] [address] [id number] [address] [place] [address], [place] [address] May, [facility] [address] [id number] [address] [place] [address], [place] [address] Apr, [facility] [address] [id number] [address] [place] [address], [place] [address] Mar, [facility] [address] [id number] [address] [place] [address], [place] [address] 07 Mar, 2012 [facility] [address] [id number] [address] [place] [address], [place] [address] Feb, [facility] [address] [id number] [address] [place] [address], [place] [address] Feb, [facility] [address] [id number] [address] [place] [address], [place] [address] Feb, [facility] [address] [id number] [address] [place] [address], [place] [address] Feb, [facility] [address] [id number] [address] [place] [address], [place] [address] Jan, [facility] [address] [id number] [address] [place] [address], [place] [address] Jan, [facility] [address] [id number] [address] [place] [address], [place] [address] Jan, [facility] [address] [id number] [address] [place] [address], [place] [address] Jan, [facility] [address] [id number] [address] [place] [address], [place] [address] Dec, [facility] [address] [id number] [address] [place] [address], [place] [address] Dec, [facility] [address] [id number] [address] [place] [address], [place] [address] Dec, [facility] [address] [id number] [address] [place] [address], [place] [id number] 15 Dec, 2011 [facility] [address] [id number] [address] [place] [address], [place] [address] Dec, [facility] [address] [id number] [address] [place] [address], [place] [address] Sep, [facility] [address] [id number] [address] [place] [address], [place] [address] Aug, [facility] [address] [id number] [address] [place] [address], [place] [address] Jul, [facility] [address] [id number] [address] [place] [address], [place] [address] Jun, [facility] [address] [id number] [address] [place] [id number] Jun, [facility] [address] [id number] [address] [place] [id number] Jun, [facility] [address] [id number] [address] [place] [id number] Jun, [facility] [address] [id number] [address] [place] [id number] May, [facility] [address] [id number] [address] [place] [id number] May, [facility] [address] [id number] [address] [place] [id number] Apr, [facility] [address] [id number] [address] [place] [id number] Jun, [facility] [address] [id number] [address] [place] [id number] Apr, IMMUNIZATIONS No Known Immunizations SOCIAL HISTORY [...]
--- OUTSIDE RECORDS SUMMARY | 2019-12-24 00:28 | XMS REPORT ---
Author Author Don Jay Doctor Organization [facility] Address Unknown Phone Unavailable Care Team Providers Care Signal Tower Operator Name Role Phone Migration, Doctor Unavailable Unavailable PROBLEMS Type Condition ICD9-CM Code [id number] Code Onset Dates Condition S tatus SNOMED Code Problem Urinary incontinence R32 Active 595216282 Problem Hypothyroidism E03.9 Active 22372 008 Problem Allergic rhinitis J30.9 Active 61 650612 Problem 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 Active 68163396 Problem Microcytic anemia D50.9 Active 23 7589230 Problem Essential hypertension I10 Active 22206091 Problem Type 2 diabetes mellitus with other specified complication E11.69 Active 86967777 Problem Tobacco abuse Z72.0 Active 562047 000 Problem Parotiditis K11.20 Active 32626082 Problem Gastroesophageal reflux disease without esophagitis K21.9 Active 732664269 Problem Type II diabetes mellitus E11.9 Acti ve 49882428 Problem On home oxygen therapy Z99.81 Active 723194260322 Problem Morbid (severe) obesity due to excess calories E66 .01 Active 926530006 Problem Hyperlipidemia LDL goal <70 E78.5 Ac tive 25983660 Problem Seasonal allergic rhinitis due to pollen J30.1 Active 85511592 Problem Chronic bronchitis, unspecified chronic bronchitis type J42 Active 94645604 ALLERGIES No Information ENCOUNTERS Encounter Location Date Diagnosis [facility] [address] [facility] [id number] [address] [place] [address] November, [facility] [address] [facility] [id number] [address] [place] [address] November, [facility] [place] [address] [id number] [address] November, [facility] [place] [address] [facility] [id number] [place], [place] [address] November, Tobacco use disorder F17.200 ; 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 ; Encounter for tobacco use cessation counseling Z71.6 ; On home oxygen therapy Z99.81 ; Type 2 diabetes mellitus with other specified complication E11.69 ; Tobacco abuse Z72.0 and Morbid (severe) obesity due to excess calories E66.01 [facility] [address] [place] [id number] [address] [place] [address] 30 Oct, 2019 [facility] [address] [place] [address] Oct, [facility] [address] [place] [id number] [address] [place] [address] Oct, [place] [address] [address] [address] Oct, Type II diabetes mellitus E1 1.9 [facility] [id number] [place] [phone] Oct, [facility] [address] [address] Sep, [facility] [address] [place] [id number] [address] [place] [address] 16 Sep, 2019 COPD (chronic obstructive pu lmonary disease) with 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 [facility] [address] [address] [id number] [address] [place] [address] 02 Sep, 2019 [facility] [address] [place] [address] 07 Aug, 2019 [facility] [id number] [place] [address] 06 Aug, 2019 Essential hypertension I10 [facility] [address] [id number] [address] [place] [address] Jul, Parotiditis K11.20 [facility] [address] [place] [id number] [address] [place] [address] Jul, [facility] [address] [id number] [address] [place] [address] Jul, Type II diabetes mellitus E1 1.9 [facility] [address] [facility] [id number] [address] [place] [address] Jul, [facility] [address] [facility] [id number] [address] [place] [address] Jul, Pneumonia due to infectious organism, unspecified laterality, unspecified part of lung J18.9 ; On home oxygen therapy Z99.81 ; Type II diabetes mellitus E11.9 ; Tobacco use disorder F17.200 and Encounter for tobacco use cessation counseling Z71.6 [facility] [address] [facility] [id number] [address] [place] [address] 14 Apr, 2019 [facility] [address] [facility] [id number] [address] [place] [phone] 30 Mar, 2019 Acute non-recurrent frontal sinusitis J01.10 [facility] [address] [facility] [id number] [address] [place] [phone] 17 Mar, 2019 Type 2 diabetes mellitus wit hout complications E11.9 [facility] [address] [facility] [id number] [address] [place] [phone] 04 Mar, 2019 Type 2 diabetes mellitus wit hout complications E11.9 ; Essential hypertension I10 and Chronic bronchitis, unspecified chronic bronchitis type J42 [facility] [address] [facility] [id number] [address] [place] [address] Feb, [facility] [address] [facility] [id number] [address] [place] [phone] Dec, [facility] [address] [facility] [id number] [address] [place] [address] Dec, [facility] [address] [facility] [id number] [address] [place] [address] November, [facility] [place] [address] [id number] [place] [address] November, [facility] [place] [address] [id number] [place] [address] November, [address] [id number] [place] [address] November, Allergic rhinitis J30.9 [facility] [address] [id number] [address] [place] [address] November, [facility] [address] [id number] [address] [place] [address] November, [facility] [address] [id number] [address] [place] [address] November, [facility] [address] [id number] [address] [place] [phone] Oct, [facility] [address] [id number] [address] [place] [address] Oct, Essential hypertension I10 [facility] [address] [id number] [address] [place] [address] Oct, [facility] [address] [id number] [address] [place] [address] Oct, [facility] [address] [id number] [address] [place] [address] Oct, [facility] [address] [facility] [id number] [address] [place] [phone] Oct, [facility] [address] [id number] [address] [place] [address] Oct, [facility] [address] [id number] [address] [place] [address] Oct, Shortness of breath R06.02 a nd Oxygen decrease R09.02 [facility] [address] [id number] [address] [place] [address] Oct, [facility] [address] [facility] [id number] [address] [place] [address] Sep, COPD (chronic obstructive pu lmonary disease) with 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 ; On home oxygen therapy Z99.[address] [facility] [address] [facility] [id number] [address] [place] [address] Sep, [facility] [address] [facility] [id number] [address] [place] [address] Sep, [facility] [address] [facility] [id number] [address] [place] [address] Sep, Acute on chronic respiratory failure with hypoxia J96.21 ; Hypothyroidism E03.9 ; 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 ; Essential hypertension I10 ; Type 2 diabetes mellitus with other specified complication E11.69 ; [facility] current use of insulin Z79.4 and Hyperlipidemia LDL goal <[address] [facility] [address] [facility] [id number] [address] [place] [address] Sep, Allergic rhinitis J30.9 [facility] [address] [facility] [id number] [address] [place] [address] Aug, Allergic rhinitis J30.9 [facility] [address] [facility] [id number] [address] [place] [address] Aug, [facility] [address] [facility] [id number] [address] [place] [address] Aug, [facility] [address] [facility] [id number] [address] [place] [phone] Aug, [facility] [address] [facility] [id number] [address] [place] [phone] Jul, [facility] [address] [facility] [id number] [address] [place] [address] Jul, Type 2 diabetes mellitus wit h other specified complication E11.69 [facility] [address] [facility] [id number] [address] [place] [phone] Jun, [facility] [address] [facility] [id number] [address] [place] [address] May, Hyperlipidemia LDL goal <70 E78.5 ; 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 and Encounter for immunization Z23 [facility] [address] [place] [address] May, [facility] [address] [id number] [address] [place] [phone] May, Acute upper respiratory infe ction J06.9 [facility] [id number] [place] [address] May, Essential hypertension I10 [facility] [address] [facility] [id number] [place] [address] May, Essential hypertension I10 [facility] [address] [address] Apr, Essential hypertension I10 [facility] [address] [address] Apr, [facility] [address] [address] Apr, COPD (chronic obstructive pu lmonary disease) with 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 [facility] [address] [address] Apr, [facility] [address] [address] Mar, [facility] [address] [address] Feb, Type 2 diabetes mellitus wit h other specified complication E11.69 ; [facility] current use of insulin Z79.4 ; Essential hypertension I10 ; Hyperlipidemia LDL goal <70 E78.5 ; 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 ; Microcytic anemia D50.9 ; Morbid (severe) obesity due to excess calories E66.01 ; Body mass index (BMI) of 39.0-39.9 in adult Z68.39 ; Hypothyroidism E03.9 and Seasonal allergic rhinitis due to pollen J30.1 [facility] [id number] [place] [address] 15 Nov, 2017 Pneumonia of right lower lob e due to infectious organism J18.1 ; [place] [...] esophagitis K21.9 and Allergic rhinitis J30.9 [facility] [address] [id number] [address] [place] [address] November, [facility] [address] [id number] [address] [place] [phone] Sep, [facility] [address] [address] Sep, [facility] [address] [id number] [address] [place] [address] Sep, [facility] [address] [address] Sep, [facility] [address] [id number] [address] [place] [address] Jul, Encounter for immunization Z 23 [facility] [address] [id number] [address] [place] [address] Jun, Subacute maxillary sinusitis J01.00 [facility] [address] [id number] [address] [place] [address] May, [facility] [address] [id number] [address] [place] [address] May, [facility] [address] [id number] [address] [place] [phone] 07 May, 2017 Type II diabetes mellitus E1 1.9 ; Hypothyroidism E03.9 ; 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 ; Cough R05 ; COPD with exacerbation J44.1 and Pneumonia of right lower lobe due to infectious organism J18.1 [place] [address] [address] Mar, Hyperlipidemia, unspecified hyperlipidemia type E78.5 [place] [id number] [place] [address] Mar, Hypothyroidism E03.9 and Hyp erlipidemia, unspecified hyperlipidemia type E78.5 [place] [id number] [place] [phone] Feb, Type II diabetes mellitus E1 1.9 [...] F33.42 and Urinary incontinence R32 [place] [address] [address] Jan, [place] [address] [address] Jan, [place] [address] [address] November, [place] [address] [place] [id number] [address] [place] [address] Sep, Type II diabetes mellitus E1 1.9 [...] and Tinea pedis of both feet B35.3 [place] [address] [place] [id number] [place] [address] Jun, [facility] [address] [id number] [address] [place] [address] Jun, Acute upper respiratory infe ction, unspecified J06.9 and Other viral agents as the cause of diseases classified elsewhere B97.89 [place] [id number] [place] [address] May, [place] [address] [address] May, Type 2 diabetes mellitus wit h [...] thrush B37.0 and Encounter for immunization Z23 [place] [id number] [place] [address] Apr, [place] [id number] [place] [address] Apr, [place] [id number] [place] [address] Mar, [place] [id number] [place] [address] Dec, [place] [address] [id number] [address] [place] [address] Dec, [address] [address] Dec, Encounter for well woman exa m [...] diabetes mellitus E11.[address] [facility] [address] [id number] [place] [address] November, [facility] [address] [address] November, Type II diabetes mellitus E1 1.9 ; Allergic rhinitis J30.9 ; Hypothyroidism E03.9 ; Obesity due to excess calories E66.09 ; Urinary incontinence R32 ; Gastroesophageal reflux disease without esophagitis K21.9 and Essential hypertension I10 [facility] [address] [address] Oct, [facility] [address] [address] Sep, [facility] [address] [address] Sep, [facility] [address] [id number] [address] [place] [address] Aug, Acute maxillary sinusitis J0 1.00 [facility] [address] [address] Aug, [facility] [address] [address] Aug, [facility] [address] [address] Aug, Type II diabetes mellitus E1 1.9 [place] [address] [address] 05 Aug, 2015 Type II diabetes mellitus E1 1.9 ; Hypothyroidism E03.9 ; 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 ; Obesity due to excess calories E66.09 ; Urinary incontinence R32 ; Anemia D64.9 ; Microcytic anemia D50.9 and Allergic rhinitis J30.9 [facility] [address] [id number] [place] [address] May, Upper respiratory symptom R0 9.89 [place] [address] [address] May, Oral thrush B37.0 [place] [address] [address] Apr, Hypothyroidism E03.9 and Harish rocytic anemia D50.9 [place] [address] [address] Apr, Encounter for long-term curr ent use of medication Z79.899 ; Hypothyroidism E03.9 ; Microcytic anemia D50.9 ; Type 2 diabetes mellitus without complication E11.9 ; Essential hypertension I10 and Mixed incontinence N39.46 [place] [address] [address] Apr, [facility] [address] [address] Mar, [facility] [address] [address] Mar, [facility] [address] [address] Mar, [facility] [address] [address] Mar, [facility] [address] [address] Mar, [facility] [address] [address] Mar, [facility] [address] [address] Mar, [facility] [address] [address] Feb, Cough 786.2 ; Wheezing 786.0 7 ; Hypothyroidism 244.9 and Encounter for long-term current use of medication V58.69 [facility] [address] [id number] [address] [place] [address] Feb, Diabetes type 2, uncontrolle d 250.02 ; Depression 311 ; Encounter for long-term current use of medication V58.[address] [facility] [address] [id number] [address] [place] [phone] Feb, [facility] [address] [id number] [address] [place] [phone] Jan, [facility] [address] [id number] [address] [place] [id number] Oct, [facility] [address] [facility] [id number] [address] [place] [address] Oct, [facility] [address] [facility] [id number] [address] [place] [phone] Oct, [facility] [address] [id number] [address] [place] [address] Sep, [facility] [address] [id number] [address] [place] [address] Sep, [facility] [address] [facility] [id number] [address] [place] [address] Sep, [facility] [address] [id number] [address] [place] [address] Aug, [facility] [address] [id number] [address] [place] [address] Aug, [facility] [address] [facility] [id number] [address] [place] [id number] Jul, [facility] [address] [facility] [id number] [address] [place] [address] Jul, [facility] [address] [facility] [id number] [address] [place] [phone] Jul, [facility] [address] [id number] [address] [place] [address], [place] [address] Jul, [facility] [address] [id number] [address] [place] [address], [place] [address] Jul, [facility] [address] [id number] [address] [place] [address], [place] [address] Jul, [facility] [address] [id number] [address] [place] [address], [place] [address] Jul, [facility] [address] [id number] [address] [place] [address], [place] [address] Jul, [facility] [address] [id number] [address] [place] [address], [place] [address] Jun, [facility] [address] [id number] [address] [place] [address], [place] [address] Jun, [facility] [address] [id number] [address] [place] [address], [place] [address] May, [facility] [address] [id number] [address] [place] [address], [place] [address] May, [facility] [address] [id number] [address] [place] [address], [place] [address] May, [facility] [address] [id number] [address] [place] [address], [place] [address] Apr, [facility] [address] [id number] [address] [place] [id number] Apr, [facility] [address] [id number] [address] [place] [address], [place] [address] Apr, [facility] [address] [id number] [address] [place] [address], [place] [address] Apr, [facility] [address] [id number] [address] [place] [address], [place] [address] Apr, [facility] [address] [id number] [address] [place] [address], [place] [address] 13 Apr, 2014 [facility] [address] [id number] [address] [place] [address], [place] [id number] 22 Mar, 2014 [facility] [address] [id number] [address] [place] [address], [place] [address] 22 Mar, 2014 [facility] [address] [id number] [address] [place] [address], [place] [address] 19 Mar, 2014 [facility] [address] [id number] [address] [place] [address], [place] [address] 19 Mar, 2014 [facility] [address] [id number] [address] [place] [address], [place] [address] 19 Sep, 2013 [facility] [address] [id number] [address] [place] [address], [place] [address] Sep, [facility] [address] [id number] [address] [place] [address], [place] [address] Sep, [facility] [address] [id number] [address] [place] [address], [place] [address] Sep, [facility] [address] [id number] [address] [place] [address], [place] [address] Aug, [facility] [address] [id number] [address] [place] [address], [place] [address] Aug, [facility] [address] [id number] [address] [place] [address], [place] [address] Aug, [facility] [address] [id number] [address] [place] [address], [place] [address] Aug, [facility] [address] [id number] [address] [place] [address], [place] [address] Aug, [facility] [address] [id number] [address] [place] [address], [place] [address] Aug, [facility] [address] [id number] [address] [place] [address], [place] [address] Jul, [facility] [address] [id number] [address] [place] [address], [place] [address] Jul, [facility] [address] [id number] [address] [place] [address], [place] [address] Jul, [facility] [address] [id number] [address] [place] [address], [place] [address] Jul, [facility] [address] [id number] [address] [place] [address], [place] [address] Jun, [facility] [address] [id number] [address] [place] [address], [place] [address] Jun, [facility] [address] [id number] [address] [place] [address], [place] [address] May, [facility] [address] [id number] [address] [place] [address], [place] [address] May, [facility] [address] [id number] [address] [place] [address], [place] [address] Apr, [facility] [address] [id number] [address] [place] [address], [place] [address] Apr, [facility] [address] [id number] [address] [place] [address], [place] [address] Apr, [facility] [address] [id number] [address] [place] [address], [place] [address] Mar, [facility] [address] [id number] [address] [place] [address], [place] [address] 11 Mar, 2013 [facility] [address] [id number] [address] [place] [address], [place] [address] 04 Mar, 2013 [facility] [address] [id number] [address] [place] [address], [place] [address] 03 Mar, 2013 [facility] [address] [id number] [address] [place] [address], [place] [address] Feb, [facility] [place] [address] [id number] [address] [place] [address] [place] [address] Jan, [facility] [address] [id number] [address] [place] [address], [place] [address] Jan, [facility] [address] [id number] [address] [place] [address], [place] [address] Jan, [facility] [address] [id number] [address] [place] [address], [place] [address] Jan, [facility] [address] [id number] [address] [place] [address], [place] [address] Dec, [facility] [address] [id number] [address] [place] [address], [place] [address] Dec, [facility] [address] [id number] [address] [place] [address], [place] [address] Dec, [facility] [address] [id number] [address] [place] [address], [place] [address] Dec, [facility] [address] [id number] [address] [place] [address], [place] [address] Dec, [facility] [address] [id number] [address] [place] [address], [place] [address] Dec, [facility] [address] [id number] [address] [place] [address], [place] [address] November, [facility] [address] [id number] [address] [place] [address], [place] [address] November, [facility] [address] [id number] [address] [place] [address], [place] [address] November, [facility] [address] [id number] [address] [place] [address], [place] [address] Oct, [facility] [address] [id number] [address] [place] [address], [place] [address] Oct, [facility] [address] [id number] [address] [place] [address], [place] [address] Sep, [facility] [address] [id number] [address] [place] [address], [place] [address] Sep, [facility] [address] [id number] [address] [place] [address], [place] [address] Sep, [facility] [address] [id number] [address] [place] [address], [place] [address] Sep, [facility] [address] [id number] [address] [place] [address], [place] [address] Sep, [facility] [address] [id number] [address] [place] [address], [place] [address] Aug, [facility] [address] [id number] [address] [place] [address], [place] [address] Aug, [facility] [address] [id number] [address] [place] [address], [place] [address] Aug, [facility] [address] [id number] [address] [place] [address], [place] [address] Aug, [facility] [address] [id number] [address] [place] [address], [place] [address] Aug, [facility] [address] [id number] [address] [place] [address], [place] [address] Jul, [facility] [address] [id number] [address] [place] [address], [place] [address] Jul, [facility] [address] [id number] [address] [place] [address], [place] [address] Jun, [facility] [address] [id number] [address] [place] [address], [place] [address] Jun, [facility] [address] [id number] [address] [place] [address], [place] [address] Jun, [facility] [address] [id number] [address] [place] [address], [place] [address] Jun, [facility] [address] [id number] [address] [place] [address], [place] [address] Jun, [facility] [address] [id number] [address] [place] [address], [place] [address] Jun, [facility] [address] [id number] [address] [place] [address], [place] [address] Jun, [facility] [address] [id number] [address] [place] [address], [place] [address] Jun, [facility] [address] [id number] [address] [place] [address], [place] [address] Jun, [facility] [address] [id number] [address] [place] [address], [place] [address] May, [facility] [address] [id number] [address] [place] [address], [place] [address] May, [facility] [address] [id number] [address] [place] [address], [place] [address] May, [facility] [address] [id number] [address] [place] [address], [place] [address] May, [facility] [address] [id number] [address] [place] [address], [place] [address] May, [facility] [address] [id number] [address] [place] [address], [place] [address] May, [facility] [address] [id number] [address] [place] [address], [place] [address] May, [facility] [address] [id number] [address] [place] [address], [place] [address] Apr, [facility] [address] [id number] [address] [place] [address], [place] [address] Mar, [facility] [address] [id number] [address] [place] [address], [place] [address] 07 Mar, 2012 [facility] [address] [id number] [address] [place] [address], [place] [address] Feb, [facility] [address] [id number] [address] [place] [address], [place] [address] Feb, [facility] [place] [facility] [address] [id number] [address] [place] [address], [place] [address] Feb, [facility] [address] [id number] [address] [place] [address], [place] [address] Feb, [facility] [address] [id number] [address] [place] [address], [place] [address] Jan, [facility] [address] [id number] [address] [place] [address], [place] [address] Jan, [facility] [address] [id number] [address] [place] [address], [place] [address] Jan, [facility] [address] [id number] [address] [place] [address], [place] [address] Jan, [facility] [address] [id number] [address] [place] [address], [place] [address] Dec, [facility] [address] [id number] [address] [place] [address], [place] [address] Dec, [facility] [address] [id number] [address] [place] [address], [place] [address] Dec, [facility] [address] [id number] [address] [place] [address], [place] [address] 15 Dec, 2011 [facility] [address] [id number] [address] [place] [address], [place] [address] Dec, [facility] [address] [id number] [address] [place] [address], [place] [address] Sep, [facility] [address] [id number] [address] [place] [address], [place] [address] Aug, [facility] [address] [id number] [address] [place] [address], [place] [address] Jul, [facility] [address] [id number] [address] [place] [address], [place] [address] Jun, [facility] [address] [id number] [address] [place] [id number] Jun, [facility] [address] [id number] [address] [place] [id number] Jun, [facility] [address] [id number] [address] [place] [id number] Jun, [facility] [address] [id number] [address] [place] [address] May, [facility] [address] [id number] [address] [place] [id number] May, [facility] [address] [id number] [address] [place] [id number] Apr, [facility] [address] [id number] [address] [place] [id number] Jun, [facility] [address] [id number] [address] [place] [address] Apr, IMMUNIZATIONS No Known Immunizations SOCIAL HISTORY [...] 11/2017 Hospitalization History pneumonia 10/07 Hospitalization History [facility] 03/09/19 Hospitalization History via [email or web address]. 07/17/19
--- OUTSIDE RECORDS SUMMARY | 2019-12-24 00:28 | XMS REPORT ---
Author Author Don Jay Doctor Organization [facility] Address Unknown Phone Unavailable Care Team Providers Care [employer]rain [employer] Inspector Name Role Phone Migration, Doctor Unavailable Unavailable PROBLEMS Type Condition ICD9-CM Code RNM65-DS Code Onset Dates Condition S tatus SNOMED Code Problem Urinary incontinence R32 Active 910786298 Problem Hypothyroidism E03.9 Active 96384 008 Problem Allergic rhinitis J30.9 Active 61 736037 Problem 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 Active 01056526 Problem Microcytic anemia D50.9 Active 23 3897436 Problem Essential hypertension I10 Active 96005885 Problem Type 2 diabetes mellitus with other specified complication E11.69 Active 18651800 Problem Tobacco abuse Z72.0 Active 789161 000 Problem Parotiditis K11.20 Active 93326807 Problem Gastroesophageal reflux disease without esophagitis K21.9 Active 460235867 Problem Type II diabetes mellitus E11.9 Acti ve 15411636 Problem On home oxygen therapy Z99.81 Active 262005895186 Problem Morbid (severe) obesity due to excess calories E66 .01 Active 079933110 Problem Hyperlipidemia LDL goal <70 E78.5 Ac tive 16097194 Problem Seasonal allergic rhinitis due to pollen J30.1 Active 30515703 Problem Chronic bronchitis, unspecified chronic bronchitis type J42 Active 66381841 ALLERGIES No Information ENCOUNTERS Encounter Location Date Diagnosis [facility] [address] [facility] [id number] [place] [address] November, Hypothyroidism E03.9 [facility] [address] [facility] [id number] [address] [place] [phone] November, Essential hypertension I10 [facility] [address] [facility] [id number] [address] [place] [phone] November, [facility] [address] [id number] [address] November, [facility] [id number] [place] [phone] November, Tobacco use disorder F17.200 ; 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 ; Encounter for tobacco use cessation counseling Z71.6 ; On home oxygen therapy Z99.81 ; Type 2 diabetes mellitus with other specified complication E11.69 ; Tobacco abuse Z72.0 and Morbid (severe) obesity due to excess calories E66.01 [facility] [address] [place] [phone] 30 Oct, 2019 [facility] [address] [place] [id number] [address] [place] [phone] Oct, [facility] [address] [address] Oct, [facility] [address] [place] [id number] [address] [place] [phone] Oct, Type II diabetes mellitus E1 1.9 [facility] [id number] [place] [phone] Oct, [facility] [address] [place] [address] Sep, [facility] [address] [place] [id number] [address] [place] [phone] 16 Sep, 2019 COPD (chronic obstructive pu lmonary disease) with 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 [facility] [address] [place] [id number] [address] [place] [phone] Sep, [facility] [address] [address] [id number] [address] [place] [phone] Aug, [facility] [id number] [place] [address] 06 Aug, 2019 Essential hypertension I10 [facility] [address] [address] [id number] [address] [place] [phone] Jul, Parotiditis K11.20 [facility] [address] [id number] [address] [place] [phone] Jul, [facility] [address] [facility] [id number] [address] [place] [id number] Jul, Type II diabetes mellitus E1 1.9 [facility] [address] [facility] [id number] [address] [place] [phone] Jul, [facility] [address] [facility] [id number] [address] [place] [phone] Jul, Pneumonia due to infectious organism, unspecified laterality, unspecified part of lung J18.9 ; On home oxygen therapy Z99.81 ; Type II diabetes mellitus E11.9 ; Tobacco use disorder F17.200 and Encounter for tobacco use cessation counseling Z71.6 [facility] [address] [facility] [id number] [address] [place] [phone] 14 Apr, 2019 [facility] [address] [facility] [id number] [address] [place] [phone] 30 Mar, 2019 Acute non-recurrent frontal sinusitis J01.10 [facility] [address] [facility] [id number] [address] [place] [phone] 17 Mar, 2019 Type 2 diabetes mellitus wit hout complications E11.9 [facility] [address] [facility] [id number] [address] [place] [phone] Mar, Type 2 diabetes mellitus wit hout complications E11.9 ; Essential hypertension I10 and Chronic bronchitis, unspecified chronic bronchitis type J42 [facility] [address] [facility] [id number] [address] [place] [phone] Feb, [facility] [address] [facility] [id number] [address] [place] [phone] Dec, [facility] [address] [facility] [id number] [address] [place] [phone] Dec, [facility] [address] [facility] [id number] [address] [place] [phone] November, [address] [id number] [address] November, [facility] RASTA [place] [facility] [address] [facility] 340[address] [id number] [address] November, [facility]STA SM[facility] [address] [facility] 340B [id number] [place] [address] November, Allergic rhinitis J30.9 [facility] [address] [id number] [address] [place] [phone] November, [facility] [address] [id number] [address] [place] [phone] November, [facility] [address] [id number] [address] [place] [phone] November, [facility] [address] [id number] [address] [place] [phone] Oct, [facility] [address] [id number] [address] [place] [phone] Oct, Essential hypertension I10 [facility] [address] [id number] [address] [place] [phone] Oct, [facility] [address] [id number] [address] [place] [phone] Oct, [facility] [address] [id number] [address] [place] [phone] Oct, [facility] [address] [id number] [address] [place] [phone] Oct, [facility] [address] [id number] [address] [place] [phone] Oct, [facility] [address] [id number] [address] [place] [phone] Oct, Shortness of breath R06.02 a nd Oxygen decrease R09.02 [facility] [address] [id number] [address] [place] [phone] Oct, [facility] [address] [id number] [address] [place] [phone] Sep, COPD (chronic obstructive pu lmonary disease) with 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 ; On home oxygen therapy Z99.81 and Hypothyroidism E03.9 [facility] [address] [facility] [id number] [address] [place] [phone] Sep, [facility] [address] [facility] [id number] [address] [place] [phone] Sep, [facility] [address] [facility] [id number] [address] [place] [address] Sep, Acute on chronic respiratory failure with hypoxia J96.21 ; Hypothyroidism E03.9 ; 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 ; Essential hypertension I10 ; Type 2 diabetes mellitus with other specified complication E11.69 ; [facility] current use of insulin Z79.4 and Hyperlipidemia LDL goal <70 E78.5 [place] [address] [facility] [id number] [address] [place] [phone] Sep, Allergic rhinitis J30.9 [facility] [address] [facility] [id number] [address] [place] [phone] Aug, Allergic rhinitis J30.9 [facility] [address] [facility] [id number] [address] [place] [phone] Aug, [facility] [address] [facility] [id number] [address] [place] [phone] Aug, [facility] [address] [facility] [id number] [address] [place] [phone] Aug, [facility] [address] [facility] [id number] [address] [place] [phone] Jul, [facility] [address] [id number] [address] [place] [id number] Jul, Type 2 diabetes mellitus wit h other specified complication E11.69 [facility] [address] [facility] [id number] [address] [place] [phone] Jun, [facility] [address] [place] [phone] May, Hyperlipidemia LDL goal <70 E78.5 ; 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 and Encounter for immunization Z23 [facility] [address] [facility] [id number] [address] [place] [phone] May, [facility] [address] [facility] [id number] [address] [place] [phone] May, Acute upper respiratory infe ction J06.9 [facility] [address] [facility] [id number] [address] [place] [phone] May, Essential hypertension I10 [facility] [address] [facility] [id number] [address] [place] [phone] May, Essential hypertension I10 [facility] [address] [facility] [id number] [address] [place] [phone] Apr, Essential hypertension I10 [facility] [address] [facility] [id number] [address] [place] [phone] Apr, [facility] [address] [facility] [id number] [address] [place] [phone] Apr, COPD (chronic obstructive pu lmonary disease) with 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 [facility] [address] [facility] [id number] [address] [place] [phone] Apr, [facility] [address] [facility] [id number] [address] [place] [phone] Mar, [facility] [address] 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 [id number] [address] [place] [phone] Sep, [facility] [address] [address] Sep, [facility] [address] [place] [id number] [address] [place] [phone] Sep, [facility] [address] [id number] [address] [place] [phone] Jul, Encounter for immunization Z 23 [facility] [address] [facility] [id number] [address] [place] [phone] Jun, Subacute maxillary sinusitis J01.00 [facility] [address] [facility] [id number] [address] [place] [phone] May, [facility] [address] [id number] [address] [place] [phone] May, [facility] [address] [address] May, Type II diabetes mellitus E1 1.9 ; Hypothyroidism E03.9 ; 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 ; Cough R05 ; COPD with exacerbation J44.1 and Pneumonia of right lower lobe due to infectious organism J18.1 [place] [address] [address] Mar, Hyperlipidemia, unspecified hyperlipidemia type E78.5 [place] [address] [address] Mar, Hypothyroidism E03.9 and Hyp erlipidemia, unspecified hyperlipidemia type E78.5 [place] [address] [address] Feb, Type II diabetes mellitus E1 1.9 [...] full remission F33.42 and Urinary incontinence R32 [place] [address] [address] Jan, [place] [address] [address] Jan, [place] [address] [address] November, [place] [address] [address] Sep, Type II diabetes mellitus E1 1.9 [...] and Tinea pedis of both feet B35.3 [facility] [address] [address] Jun, [facility] [address] [place] [id number] [address] [place] [phone] 09 Jun, 2016 Acute upper respiratory infe ction, unspecified J06.9 and Other viral agents as the cause of diseases classified elsewhere B97.89 [place] [address] [address] May, [address] [address] May, Type 2 diabetes mellitus wit h [...] thrush B37.0 and Encounter for immunization Z23 [place] [address] [address] Apr, [place] [address] [address] Apr, [place] [address] [address] Mar, [place] [address] [address] Dec, [place] [address] [address] Dec, [place] [address] [address] Dec, Encounter for well woman exa m with routine gynecological exam Z01.419 ; Encounter for screening for malignant neoplasm of cervix Z12.4 ; Screening mammogram, encounter for Z12.31 ; Encounter for screening breast examination Z12.39 ; On home oxygen therapy Z99.81 ; 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 ; Heat rash L74.0 ; Type II diabetes mellitus E11.9 and Hypothyroidism E03.9 [facility] [address] [facility] [id number] [address] [place] [phone] November, [facility] [address] [address] November, Type II diabetes mellitus E1 1.9 ; Allergic rhinitis J30.9 ; Hypothyroidism E03.9 ; Obesity due to excess calories E66.09 ; Urinary incontinence R32 ; Gastroesophageal reflux disease without esophagitis K21.9 and Essential hypertension I10 [place] [id number] [place] [id number] [place] [phone] Oct, [place] [address] [place] [id number] [address] [place] [phone] Sep, [facility] [address] [id number] [address] [place] [phone] Sep, [facility] [address] [facility] [id number] [address] [place] [phone] 27 Aug, 2015 Acute maxillary sinusitis J0 1.00 [facility] [address] [facility] [id number] [address] [place] [phone] Aug, [facility] [address] [facility] [id number] [address] [place] [phone] Aug, [facility] [address] [place] [id number] [address] [place] [phone] 16 Aug, 2015 Type II diabetes mellitus E1 1.9 [facility] [address] [facility] [id number] [address] [place] [phone] 05 Aug, 2015 Type II diabetes mellitus E1 1.9 ; Hypothyroidism E03.9 ; 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 ; Obesity due to excess calories E66.09 ; Urinary incontinence R32 ; Anemia D64.9 ; Microcytic anemia D50.9 and Allergic rhinitis J30.9 [place] [address] [address] 11 May, 2015 Upper respiratory symptom R0 9.89 [place] [address] [address] May, Oral thrush B37.0 [place] [address] [address] Apr, Hypothyroidism E03.9 and Harish rocytic anemia D50.9 [place] [address] [address] Apr, Encounter for long-term curr ent use of medication Z79.899 ; Hypothyroidism E03.9 ; Microcytic anemia D50.9 ; Type 2 diabetes mellitus without complication E11.9 ; Essential hypertension I10 and Mixed incontinence N39.46 [place] [address] [address] Apr, [place] [address] [address] Mar, [place] [address] [address] Mar, [place] [address] [address] Mar, [place] [address] [address] Mar, [place] [address] [address] Mar, [facility] [address] [address] Mar, [place] [address] [address] Mar, [facility] [address] [id number] [address] [place] [address] Feb, Cough 786.2 ; Wheezing 786.0 7 ; Hypothyroidism 244.9 and Encounter for long-term current use of medication V58.69 [facility] [address] [facility] [id number] [address] [place] [phone] Feb, Diabetes type 2, uncontrolle d 250.02 ; Depression 311 ; Encounter for long-term current use of medication V58.69 and Hypothyroidism 244.9 [facility] [address] [id number] [address] [place] [phone] Feb, [facility] [address] [id number] [address] [place] [id number] Jan, [facility] [address] [facility] [id number] [address] [place] [phone] Oct, [facility] [address] [facility] [id number] [address] [place] [phone] Oct, [facility] [address] [facility] [id number] [address] [place] [phone] Oct, [facility] [address] [facility] [id number] [address] [place] [phone] Sep, [facility] [address] [facility] [id number] [address] [place] [phone] Sep, [facility] [address] [facility] [id number] [address] [place] [phone] Sep, [facility] [address] [facility] [id number] [address] [place] [phone] Aug, [facility] [address] [facility] [id number] [address] [place] [phone] Aug, [facility] [address] [facility] [id number] [address] [place] [phone] Jul, [facility] [address] [facility] [id number] [address] [place] [phone] Jul, [facility] [address] [id number] [address] [place] [address], [place] [phone] Jul, [facility] [address] [id number] [address] [place] [phone] Jul, [facility] [address] [id number] [address] [place] [address], [place] [id number] Jul, [facility] [address] [id number] [address] [place] [phone] Jul, [facility] [address] [id number] [address] [place] [address], [place] [id number] Jul, [facility] [address] [id number] [address] [place] [address], [place] [phone] Jul, [facility] [address] [address] [id number] [address] [place] [id number] Jun, [facility] [address] [id number] [address] [place] [address], [place] [address] Jun, [facility] [address] [id number] [address] [place] [id number] May, [facility] [address] [id number] [address] [place] [id number] May, [facility] [address] [id number] [address] [place] [id number] May, [facility] [address] [id number] [address] [place] [id number] Apr, [facility] [address] [id number] [address] [place] [address], [place] [address] Apr, [facility] [address] [id number] [address] [place] [address], [place] [address] Apr, [facility] [address] [id number] [address] [place] [address], [place] [address] Apr, [facility] [address] [id number] [address] [place] [address], [place] [address] 13 Apr, 2014 [facility] [address] [id number] [address] [place] [address], [place] [address] Apr, [facility] [address] [id number] [address] [place] [address], [place] [address] 22 Mar, 2014 [facility] [address] [id number] [address] [place] [address], [place] [address] Mar, [facility] [address] [id number] [address] [place] [address], [place] [address] Mar, [facility] [address] [id number] [address] [place] [address], [place] [address] Mar, [facility] [address] [id number] [address] [place] [address], [place] [address] Sep, [facility] [address] [id number] [address] [place] [address], [place] [address] Sep, [facility] [address] [id number] [address] [place] [address], [place] [address] Sep, [facility] [address] [id number] [address] [place] [address], [place] [address] Sep, [facility] [address] [id number] [address] [place] [address], [place] [address] Aug, [facility] [address] [id number] [address] [place] [address], [place] [address] Aug, [facility] [address] [id number] [address] [place] [address], [place] [address] Aug, [facility] [address] [id number] [address] [place] [address], [place] [address] Aug, [facility] [address] [id number] [address] [place] [address], [place] [address] Aug, [facility] [address] [id number] [address] [place] [address], [place] [address] Aug, [facility] [address] [id number] [address] [place] [address], [place] [address] Jul, [facility] [address] [id number] [address] [place] [address], [place] [address] Jul, [facility] [address] [id number] [address] [place] [address], [place] [address] Jul, [facility] [address] [id number] [address] [place] [id number] Jul, [facility] [address] [id number] [address] [place] [address], [place] [address] Jun, [facility] [address] [id number] [address] [place] [address], [place] [address] Jun, [facility] [address] [id number] [address] [place] [address], [place] [address] May, [facility] [address] [id number] [address] [place] [address], [place] [address] May, [facility] [address] [id number] [address] [place] [address], [place] [address] Apr, [facility] [address] [id number] [address] [place] [address], [place] [address] Apr, [facility] [address] [id number] [address] [place] [address], [place] [address] Apr, [facility] [address] [id number] [address] [place] [address], [place] [id number] 19 Mar, 2013 [facility] [address] [id number] [address] [place] [address], [place] [address] 11 Mar, 2013 [facility] [address] [id number] [address] [place] [address], [place] [address] 04 Mar, 2013 [facility] [address] [id number] [address] [place] [address], [place] [address] 03 Mar, 2013 [facility] [address] [id number] [address] [place] [address], [place] [address] Feb, [facility] [address] [id number] [address] [place] [address], [place] [address] Jan, [facility] [address] [id number] [address] [place] [address], [place] [address] Jan, [facility] [address] [id number] [address] [place] [address], [place] [address] Jan, [facility] [address] [id number] [address] [place] [address], [place] [address] Jan, [facility] [address] [id number] [address] [place] [address], [place] [address] Dec, [facility] [address] [id number] [address] [place] [address], [place] [address] Dec, [facility] [address] [id number] [address] [place] [address], [place] [address] Dec, [facility] [address] [id number] [address] [place] [address], [place] [address] Dec, [facility] [address] [id number] [address] [place] [address], [place] [address] Dec, [facility] [address] [id number] [address] [place] [address], [place] [address] Dec, [facility] [address] [id number] [address] [place] [address], [place] [address] November, [facility] [address] [id number] [address] [place] [address], [place] [address] November, [facility] [address] [id number] [address] [place] [address], [place] [address] November, [facility] [address] [id number] [address] [place] [address], [place] [address] Oct, [facility] [address] [id number] [address] [place] [address], [place] [address] Oct, [facility] [address] [id number] [address] [place] [address], [place] [address] Sep, [facility] [address] [id number] [address] [place] [address], [place] [address] Sep, [facility] [address] [id number] [address] [place] [address], [place] [address] Sep, [facility] [address] [id number] [address] [place] [address], [place] [address] Sep, [facility] [address] [id number] [address] [place] [address], [place] [address] Sep, [facility] [address] [id number] [address] [place] [address], [place] [address] Aug, [facility] [address] [id number] [address] [place] [address], [place] [address] Aug, [facility] [address] [id number] [address] [place] [address], [place] [address] Aug, [facility] [address] [id number] [address] [place] [address], [place] [address] Aug, [facility] [address] [id number] [address] [place] [address], [place] [address] Aug, [facility] [address] [id number] [address] [place] [address], [place] [address] Jul, [facility] [address] [id number] [address] [place] [address], [place] [address] Jul, [facility] [address] [id number] [address] [place] [address], [place] [address] Jun, [facility] [address] [id number] [address] [place] [address], [place] [address] Jun, [facility] [address] [id number] [address] [place] [address], [place] [address] Jun, [facility] [address] [id number] [address] [place] [address], [place] [address] 18 Jun, 2012 [facility] [address] [id number] [address] [place] [address], [place] [address] 10 Jun, 2012 [facility] [address] [id number] [address] [place] [address], [place] [address] Jun, [facility] [address] [id number] [address] [place] [address], [place] [address] 07 Jun, 2012 [facility] [address] [id number] [address] [place] [address], [place] [address] Jun, [facility] [address] [id number] [address] [place] [address], [place] [address] Jun, [facility] [address] [id number] [address] [place] [address], [place] [address] May, [facility] [address] [id number] [address] [place] [address], [place] [address] May, [facility] [address] [id number] [address] [place] [address], [place] [address] May, [facility] [address] [id number] [address] [place] [address], [place] [address] May, [facility] [address] [id number] [address] [place] [address], [place] [address] May, [facility] [address] [id number] [address] [place] [address], [place] [address] May, [facility] [address] [id number] [address] [place] [address], [place] [address] May, [facility] [address] [id number] [address] [place] [address], [place] [address] 09 Apr, 2012 [facility] [address] [id number] [address] [place] [address], [place] [address] 11 Mar, 2012 [facility] [address] [id number] [address] [place] [address], [place] [address] Mar, [facility] [address] [id number] [address] [place] [address], [place] [address] Feb, [facility] [address] [id number] [address] [place] [address], [place] [address] Feb, [facility] [address] [id number] [address] [place] [address], [place] [address] Feb, [facility] [address] [id number] [address] [place] [address], [place] [address] Feb, [facility] [address] [id number] [address] [place] [address], [place] [address] Jan, [facility] [address] [id number] [address] [place] [address], [place] [address] Jan, [facility] [address] [id number] [address] [place] [address], [place] [address] Jan, [facility] [address] [id number] [address] [place] [address], [place] [address] Jan, [facility] [address] [id number] [address] [place] [address], [place] [address] Dec, [facility] [address] [id number] [address] [place] [address], [place] [address] Dec, [facility] [address] [id number] [address] [place] [address], [place] [address] Dec, [facility] [address] [id number] [address] [place] [address], [place] [address] 15 Dec, 2011 [facility] [address] [id number] [address] [place] [address], [place] [address] Dec, [facility] [address] [id number] [address] [place] [address], [place] [address] Sep, [facility] [address] [id number] [address] [place] [address], [place] [address] Aug, [facility] [address] [id number] [address] [place] [id number] Jul, [facility] [address] [id number] [address] [place] [id number] Jun, [facility] [address] [id number] [address] [place] [id number] Jun, [facility] [address] [id number] [address] [place] [id number] Jun, [facility] [address] [id number] [address] [place] [id number] Jun, [facility] [address] [id number] [address] [place] [id number] May, [facility] [address] [id number] [address] [place] [id number] May, [facility] [address] [id number] [address] [place] [id number] Apr, [facility] [address] [id number] [address] [place] [id number] Jun, [facility] [address] [id number] [address] [place] [id number] Apr, IMMUNIZATIONS No Known Immunizations SOCIAL HISTORY [...] 11/2017 Hospitalization History pneumonia 10/07 Hospitalization History [facility] 03[facility]09/19 Hospitalization History [facility]. 07/17/19
--- OUTSIDE RECORDS SUMMARY | 2019-12-24 00:29 | XMS REPORT ---
Author Author Don Jay Doctor Organization [facility] Address Unknown Phone Unavailable Care Team Providers Care Facility Mechanic Name Role Phone Migration, Doctor Unavailable Unavailable PROBLEMS Type Condition ICD9-CM Code [id number] Code Onset Dates Condition S tatus SNOMED Code Problem Urinary incontinence R32 Active 359324504 Problem Hypothyroidism E03.9 Active 12932 008 Problem Allergic rhinitis J30.9 Active 61 352200 Problem 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 Active 08656182 Problem Microcytic anemia D50.9 Active 23 4900613 Problem Essential hypertension I10 Active 92990079 Problem Type 2 diabetes mellitus with other specified complication E11.69 Active 72321756 Problem Tobacco abuse Z72.0 Active 304713 000 Problem Parotiditis K11.20 Active 85487851 Problem Gastroesophageal reflux disease without esophagitis K21.9 Active 381355863 Problem Type II diabetes mellitus E11.9 Acti ve 07739618 Problem On home oxygen therapy Z99.81 Active 194390326110 Problem Morbid (severe) obesity due to excess calories E66 .01 Active 974080810 Problem Hyperlipidemia LDL goal <70 E78.5 Ac tive 60373564 Problem Seasonal allergic rhinitis due to pollen J30.1 Active 78400874 Problem Chronic bronchitis, unspecified chronic bronchitis type J42 Active 45893187 ALLERGIES No Information ENCOUNTERS Encounter Location Date Diagnosis [facility] [address] [facility] [id number] [address] [place] [address] November, [facility] [address] [facility] [id number] [address] [place] [address] November, [facility] [address] [id number] [address] November, [facility] [place] [address] [facility] [id number] [place] [address] November, Tobacco use disorder F17.200 ; 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 ; Encounter for tobacco use cessation counseling Z71.6 ; On home oxygen therapy Z99.81 ; Type 2 diabetes mellitus with other specified complication E11.69 ; Tobacco abuse Z72.0 and Morbid (severe) obesity due to excess calories E66.01 [facility] [address] [id number] [address] [place] [address] 30 Oct, 2019 [facility] [address] [place] [address] Oct, [facility] [address] [id number] [address] [place] [address] Oct, [place] [address] [address] Oct, Type II diabetes mellitus E1 1.9 [facility] [id number] [place] [phone] Oct, [facility] [address] [address] Sep, [facility] [address] [id number] [address] [place] [address] 16 Sep, 2019 COPD (chronic obstructive pu lmonary disease) with 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 [facility] [address] [id number] [address] [place] [address] 02 Sep, 2019 [facility] [address] [place] [address] 07 Aug, 2019 [facility] [id number] [place] [phone] 06 Aug, 2019 Essential hypertension I10 [facility] [address] [id number] [address] [place] [address] Jul, Parotiditis K11.20 [facility] [address] [id number] [address] [place] [address] Jul, [facility] [address] [id number] [place] [address] Jul, Type II diabetes mellitus E1 1.9 [facility] [address] [facility] [id number] [address] [place] [address] Jul, [facility] [address] [facility] [id number] [address] [place] [address] Jul, Pneumonia due to infectious organism, unspecified laterality, unspecified part of lung J18.9 ; On home oxygen therapy Z99.81 ; Type II diabetes mellitus E11.9 ; Tobacco use disorder F17.200 and Encounter for tobacco use cessation counseling Z71.6 [facility] [address] [facility] [id number] [address] [place] [address] 14 Apr, 2019 [facility] [address] [facility] [id number] [address] [place] [address] 30 Mar, 2019 Acute non-recurrent frontal sinusitis J01.10 [facility] [address] [facility] [id number] [address] [place] [address] 17 Mar, 2019 Type 2 diabetes mellitus wit hout complications E11.9 [facility] [address] [facility] [id number] [address] [place] [address] 04 Mar, 2019 Type 2 diabetes mellitus wit hout complications E11.9 ; Essential hypertension I10 and Chronic bronchitis, unspecified chronic bronchitis type J42 [facility] [address] [facility] [id number] [address] [place] [address] Feb, [facility] [address] [facility] [id number] [address] [place] [address] Dec, [facility] [address] [facility] [id number] [address] [place] [address] Dec, [facility] [address] [facility] [id number] [address] [place] [address] November, [facility] [place] [address] [id number] [place] [address] November, [facility] [place] [address] [id number] [place] [address] November, [address] [id number] [place] [address] November, Allergic rhinitis J30.9 [facility] [address] [id number] [address] [place] [address] November, [facility] [address] [id number] [address] [place] [address] November, [facility] [address] [id number] [address] [place] [address] November, [facility] [address] [id number] [address] [place] [address] Oct, [facility] [address] [id number] [address] [place] [address] Oct, Essential hypertension I10 [facility] [address] [id number] [address] [place] [address] Oct, [facility] [address] [id number] [address] [place] [address] Oct, [facility] [address] [id number] [address] [place] [address] Oct, [facility] [address] [facility] [id number] [address] [place] [address] Oct, [facility] [address] [id number] [address] [place] [address] Oct, [facility] [address] [id number] [address] [place] [address] Oct, Shortness of breath R06.02 a nd Oxygen decrease R09.02 [facility] [address] [id number] [address] [place] [address] Oct, [facility] [address] [facility] [id number] [address] [place] [address] Sep, COPD (chronic obstructive pu lmonary disease) with 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 ; On home oxygen therapy Z99.81 and Hypothyroidism E03.9 [facility] [address] [facility] [id number] [address] [place] [address] Sep, [facility] [address] [facility] [id number] [address] [place] [address] Sep, [facility] [address] [facility] [id number] [address] [place] [address] Sep, Acute on chronic respiratory failure with hypoxia J96.21 ; Hypothyroidism E03.9 ; 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 ; Essential hypertension I10 ; Type 2 diabetes mellitus with other specified complication E11.69 ; jail current use of insulin Z79.4 and Hyperlipidemia LDL goal <70 E78.5 [facility] [address] [facility] [id number] [address] [place] [address] Sep, Allergic rhinitis J30.9 [facility] [address] [facility] [id number] [address] [place] [address] Aug, Allergic rhinitis J30.9 [facility] [address] [facility] [id number] [address] [place] [address] Aug, [facility] [address] [facility] [id number] [address] [place] [address] Aug, [facility] [address] [facility] [id number] [address] [place] [address] Aug, [facility] [address] [facility] [id number] [address] [place] [address] Jul, [facility] [address] [facility] [id number] [address] [place] [address] Jul, Type 2 diabetes mellitus wit h other specified complication E11.69 [facility] [address] [facility] [id number] [address] [place] [address] Jun, [facility] [address] [facility] [id number] [address] [place] [address] May, Hyperlipidemia LDL goal <70 E78.5 ; 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 and Encounter for immunization Z23 [facility] [address] [place] [address] May, [facility] [address] [id number] [address] [place] [address] May, Acute upper respiratory infe ction J06.9 [facility] [id number] [place] [address] May, Essential hypertension I10 [facility] [address] [facility] [id number] [place] [address] May, Essential hypertension I10 [facility] [address] [address] Apr, Essential hypertension I10 [facility] [address] [address] Apr, [facility] [address] [address] Apr, COPD (chronic obstructive pu lmonary disease) with 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 [facility] [address] [address] Apr, [facility] [address] [address] Mar, [facility] [address] [address] Feb, Type 2 diabetes mellitus wit h other specified complication E11.69 ; jail current [...] Seasonal allergic rhinitis due to pollen J30.1 [facility] [id number] [place] [address] 15 Nov, 2017 Pneumonia of right lower lob e due to infectious organism J18.1 ; jail [...] without esophagitis K21.9 and Allergic rhinitis J30.9 [facility] [address] [id number] [address] [place] [address] November, [facility] [address] [id number] [address] [place] [address] Sep, [facility] [address] [address] Sep, [facility] [address] [id number] [address] [place] [address] Sep, [facility] [address] [address] Sep, [facility] [address] [id number] [address] [place] [address] Jul, Encounter for immunization Z 23 [facility] [address] [id number] [address] [place] [address] Jun, Subacute maxillary sinusitis J01.00 [facility] [address] [id number] [place] [address] May, [facility] [address] [id number] [place] [address] May, [facility] [address] [id number] [place] [address] 07 May, 2017 Type II diabetes mellitus E1 1.9 ; Hypothyroidism E03.9 ; 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 ; Cough R05 ; COPD with exacerbation J44.1 and Pneumonia of right lower lobe due to infectious organism J18.1 [place] [address] [address] Mar, Hyperlipidemia, unspecified hyperlipidemia type E78.5 [place] [id number] [place] [address] Mar, Hypothyroidism E03.9 and Hyp erlipidemia, unspecified hyperlipidemia type E78.5 [place] [id number] [place] [address] Feb, Type II diabetes mellitus E1 1.9 [...] full remission F33.42 and Urinary incontinence R32 [place] [address] [address] Jan, [place] [address] [address] Jan, [place] [address] [address] November, [place] [address] [id number] [place] [address] Sep, Type II diabetes mellitus E1 1.9 [...] and Tinea pedis of both feet B35.3 [place] [address] [id number] [place] [address] Jun, [facility] [address] [id number] [address] [place] [address] Jun, Acute upper respiratory infe ction, unspecified J06.9 and Other viral agents as the cause of diseases classified elsewhere B97.89 [place] [id number] [place] [address] May, [place] [address] [address] May, Type 2 diabetes mellitus wit h [...] thrush B37.0 and Encounter for immunization Z23 [place] [id number] [place] [address] Apr, [place] [id number] [place] [address] Apr, [place] [id number] [place] [address] Mar, [place] [id number] [place] [address] Dec, [place] [address] [id number] [place] [address] Dec, [address] [address] Dec, Encounter for well woman exa m with routine gynecological exam Z01.419 ; Encounter for screening for malignant neoplasm of cervix Z12.4 ; Screening mammogram, encounter for Z12.31 ; Encounter for screening breast examination Z12.39 ; On home oxygen therapy Z99.81 ; 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 ; Heat rash L74.0 ; Type II diabetes mellitus E11.9 and Hypothyroidism E03.9 [facility] [address] [id number] [address] [place] [address] November, [facility] [address] [address] November, Type II diabetes mellitus E1 1.9 ; Allergic rhinitis J30.9 ; Hypothyroidism E03.9 ; Obesity due to excess calories E66.09 ; Urinary incontinence R32 ; Gastroesophageal reflux disease without esophagitis K21.9 and Essential hypertension I10 [facility] [address] [address] Oct, [facility] [address] [address] Sep, [facility] [address] [address] Sep, [facility] [address] [id number] [address] [place] [address] Aug, Acute maxillary sinusitis J0 1.00 [facility] [address] [address] Aug, [facility] [address] [address] Aug, [facility] [address] [address] Aug, Type II diabetes mellitus E1 1.9 [place] [address] [address] 05 Aug, 2015 Type II diabetes mellitus E1 1.9 ; Hypothyroidism E03.9 ; 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 ; Obesity due to excess calories E66.09 ; Urinary incontinence R32 ; Anemia D64.9 ; Microcytic anemia D50.9 and Allergic rhinitis J30.9 [facility] [address] [id number] [place] [address] May, Upper respiratory symptom R0 9.89 [place] [address] [address] May, Oral thrush B37.0 [place] [address] [address] Apr, Hypothyroidism E03.9 and Harish rocytic anemia D50.9 [place] [address] [address] Apr, Encounter for long-term curr ent use of medication Z79.899 ; Hypothyroidism E03.9 ; Microcytic anemia D50.9 ; Type 2 diabetes mellitus without complication E11.9 ; Essential hypertension I10 and Mixed incontinence N39.46 [place] [address] [address] Apr, [facility] [address] [address] Mar, [facility] [address] [address] Mar, [facility] [address] [address] Mar, [facility] [address] [address] Mar, [facility] [address] [address] Mar, [facility] [address] [address] Mar, [facility] [address] [address] Mar, [facility] [address] [address] Feb, Cough 786.2 ; Wheezing 786.0 7 ; Hypothyroidism 244.9 and Encounter for long-term current use of medication V58.69 [facility] [address] [id number] [address] [place] [address] Feb, Diabetes type 2, uncontrolle d 250.02 ; Depression 311 ; Encounter for long-term current use of medication V58.69 and Hypothyroidism 244.9 [facility] [address] [id number] [address] [place] [address] Feb, [facility] [address] [id number] [address] [place] [address] Jan, [facility] [address] [id number] [address] [place] [address] Oct, [facility] [address] [facility] [id number] [address] [place] [address] Oct, [facility] [address] [facility] [id number] [address] [place] [address] Oct, [facility] [address] [id number] [address] [place] [address] Sep, [facility] [address] [id number] [address] [place] [address] Sep, [facility] [address] [facility] [id number] [address] [place] [address] Sep, [facility] [address] [id number] [address] [place] [address] Aug, [facility] [address] [id number] [address] [place] [address] Aug, [facility] [address] [facility] [id number] [address] [place] [address] Jul, [facility] [address] [facility] [id number] [address] [place] [address] Jul, [facility] [address] [facility] [id number] [address] [place] [address] Jul, [facility] [address] [id number] [address] [place] [address], [place] [address] Jul, [facility] [address] [id number] [address] [place] [address], [place] [address] Jul, [facility] [address] [id number] [address] [place] [address], [place] [address] Jul, [facility] [address] [id number] [address] [place] [address], [place] [address] Jul, [facility] [address] [id number] [address] [place] [address], [place] [address] Jul, [facility] [address] [id number] [address] [place] [address], [place] [address] Jun, [facility] [address] [id number] [address] [place] [address], [place] [address] Jun, [facility] [address] [id number] [address] [place] [address], [place] [address] May, [facility] [address] [id number] [address] [place] [address], [place] [address] May, [facility] [address] [id number] [address] [place] [address], [place] [address] May, [facility] [address] [id number] [address] [place] [address], [place] [address] Apr, [facility] [address] [id number] [address] [place] [address] Apr, [facility] [address] [id number] [address] [place] [address], [place] [address] Apr, [facility] [address] [id number] [address] [place] [address], [place] [address] Apr, [facility] [address] [id number] [address] [place] [address], [place] [address] Apr, [facility] [address] [id number] [address] [place] [address], [place] [address] 13 Apr, 2014 [facility] [address] [id number] [address] [place] [address], [place] [address] 22 Mar, 2014 [facility] [address] [id number] [address] [place] [address], [place] [address] 22 Mar, 2014 [facility] [address] [id number] [address] [place] [address], [place] [address] 19 Mar, 2014 [facility] [address] [id number] [address] [place] [address], [place] [address] 19 Mar, 2014 [facility] [address] [id number] [address] [place] [address], [place] [address] 19 Sep, 2013 [facility] [address] [id number] [address] [place] [address], [place] [address] Sep, [facility] [address] [id number] [address] [place] [address], [place] [address] Sep, [facility] [address] [id number] [address] [place] [address], [place] [address] Sep, [facility] [address] [id number] [address] [place] [address], [place] [address] Aug, [facility] [address] [id number] [address] [place] [address], [place] [address] Aug, [facility] [address] [id number] [address] [place] [address], [place] [address] Aug, [facility] [address] [id number] [address] [place] [address], [place] [id number] Aug, [facility] [address] [id number] [address] [place] [address], [place] [id number] Aug, [facility] [address] [id number] [address] [place] [address], [place] [id number] Aug, [facility] [address] [id number] [address] [place] [address], [place] [id number] Jul, [facility] [address] [id number] [address] [place] [address], [place] [id number] Jul, [facility] [address] [id number] [address] [place] [address], [place] [id number] Jul, [facility] [address] [id number] [address] [place] [address], [place] [id number] Jul, [facility] [address] [id number] [address] [place] [address], [place] [id number] Jun, [facility] [address] [id number] [address] [place] [address], [place] [id number] Jun, [facility] [address] [id number] [address] [place] [address], [place] [address] May, [facility] [address] [id number] [address] [place] [address], [place] [id number] May, [facility] [address] [id number] [address] [place] [address], [place] [id number] Apr, [facility] [address] [id number] [address] [place] [address], [place] [id number] Apr, [facility] [address] [id number] [address] [place] [address], [place] [id number] Apr, [facility] [address] [id number] [address] [place] [address], [place] [address] Mar, [facility] [address] [id number] [address] [place] [address], [place] [address] 11 Mar, 2013 [facility] [address] [id number] [address] [place] [address], [place] [id number] 04 Mar, 2013 [facility] [address] [id number] [address] [place] [address], [place] [address] 03 Mar, 2013 [facility] [address] [id number] [address] [place] [address], [place] [address] Feb, [facility] [address] [id number] [address] [place] [address] [place] [address] Jan, [facility] [address] [id number] [address] [place] [address], [place] [address] Jan, [facility] [address] [id number] [address] [place] [address], [place] [address] Jan, [facility] [address] [id number] [address] [place] [address], [place] [address] Jan, [facility] [address] [id number] [address] [place] [address], [place] [address] Dec, [facility] [address] [id number] [address] [place] [address], [place] [address] Dec, [facility] [address] [id number] [address] [place] [address], [place] [address] Dec, [facility] [address] [id number] [address] [place] [address], [place] [address] Dec, [facility] [address] [id number] [address] [place] [address], [place] [address] Dec, [facility] [address] [id number] [address] [place] [address], [place] [address] Dec, [facility] [address] [id number] [address] [place] [address], [place] [address] November, [facility] [address] [id number] [address] [place] [address], [place] [address] November, [facility] [address] [id number] [address] [place] [address], [place] [address] November, [facility] [address] [id number] [address] [place] [address], [place] [address] Oct, [facility] [address] [id number] [address] [place] [address], [place] [address] Oct, [facility] [address] [id number] [address] [place] [address], [place] [address] Sep, [facility] [address] [id number] [address] [place] [address], [place] [address] Sep, [facility] [address] [id number] [address] [place] [address], [place] [address] Sep, [facility] [address] [id number] [address] [place] [address], [place] [address] Sep, [facility] [address] [id number] [address] [place] [address], [place] [address] Sep, [facility] [address] [id number] [address] [place] [address], [place] [address] Aug, [facility] [address] [id number] [address] [place] [address], [place] [address] Aug, [facility] [address] [id number] [address] [place] [address], [place] [address] Aug, [facility] [address] [id number] [address] [place] [address], [place] [address] Aug, [facility] [address] [id number] [address] [place] [address], [place] [address] Aug, [facility] [address] [id number] [address] [place] [address], [place] [address] Jul, [facility] [address] [id number] [address] [place] [address], [place] [address] Jul, [facility] [address] [id number] [address] [place] [address], [place] [address] Jun, [facility] [address] [id number] [address] [place] [address], [place] [address] Jun, [facility] [address] [id number] [address] [place] [address], [place] [address] Jun, [facility] [address] [id number] [address] [place] [address], [place] [address] Jun, [facility] [address] [id number] [address] [place] [address], [place] [address] Jun, [facility] [address] [id number] [address] [place] [address], [place] [address] Jun, [facility] [address] [id number] [address] [place] [address], [place] [address] Jun, [facility] [address] [id number] [address] [place] [address], [place] [address] Jun, [facility] [address] [id number] [address] [place] [address], [place] [address] Jun, [facility] [address] [id number] [address] [place] [address], [place] [address] May, [facility] [address] [id number] [address] [place] [address], [place] [address] May, [facility] [address] [id number] [address] [place] [address], [place] [address] May, [facility] [address] [id number] [address] [place] [address], [place] [address] May, [facility] [address] [id number] [address] [place] [address], [place] [address] May, [facility] [address] [id number] [address] [place] [address], [place] [address] May, [facility] [address] [id number] [address] [place] [address], [place] [address] May, [facility] [address] [id number] [address] [place] [address], [place] [address] Apr, [facility] [address] [id number] [address] [place] [address], [place] [address] Mar, [facility] [address] [id number] [address] [place] [address], [place] [id number] 07 Mar, 2012 [facility] [address] [id number] [address] [place] [address], [place] [address] Feb, [facility] [address] [id number] [address] [place] [address], [place] [address] Feb, [facility] [address] [id number] [address] [place] [address], [place] [address] Feb, [facility] [address] [id number] [address] [place] [address], [place] [address] Feb, [facility] [address] [id number] [address] [place] [address], [place] [address] Jan, [facility] [address] [id number] [address] [place] [address], [place] [address] Jan, [facility] [address] [id number] [address] [place] [address], [place] [address] Jan, [facility] [address] [id number] [address] [place] [address], [place] [address] Jan, [facility] [address] [id number] [address] [place] [address], [place] [address] Dec, [facility] [address] [id number] [address] [place] [address], [place] [address] Dec, [facility] [address] [id number] [address] [place] [address], [place] [address] Dec, [facility] [address] [id number] [address] [place] [address], [place] [address] 15 Dec, 2011 [facility] [address] [id number] [address] [place] [address], [place] [address] Dec, [facility] [address] [id number] [address] [place] [address], [place] [address] Sep, [facility] [address] [id number] [address] [place] [address], [place] [address] Aug, [facility] [address] [id number] [address] [place] [address], [place] [address] Jul, [facility] [address] [id number] [address] [place] [address], [place] [address] Jun, [facility] [address] [id number] [address] [place] [id number] Jun, [facility] [address] [id number] [address] [place] [id number] Jun, [facility] [address] [id number] [address] [place] [address] Jun, [facility] [address] [id number] [address] [place] [address] May, [facility] [address] [id number] [address] [place] [address] May, [facility] [address] [id number] [address] [place] [address] Apr, [facility] [address] [id number] [address] [place] [id number] Jun, [facility] [address] [id number] [address] [place] [id number] Apr, IMMUNIZATIONS No Known Immunizations SOCIAL HISTORY [...] 11/2017 Hospitalization History pneumonia 10/07 Hospitalization History [facility] 03/09/19 Hospitalization History via [facility]. 07/17/19
--- OUTSIDE RECORDS SUMMARY | 2019-12-24 00:29 | XMS REPORT ---
Author Author Don Jay Doctor Organization [facility] Address Unknown Phone Unavailable Care Team Providers Care Shellfish Sorter Name Role Phone Migration, Doctor Unavailable Unavailable PROBLEMS Type Condition ICD9-CM Code [id number] Code Onset Dates Condition S tatus SNOMED Code Problem Urinary incontinence R32 Active 805268178 Problem Hypothyroidism E03.9 Active 01788 008 Problem Allergic rhinitis J30.9 Active 61 037121 Problem 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 Active 32050577 Problem Microcytic anemia D50.9 Active 23 1278789 Problem Essential hypertension I10 Active 03938539 Problem Type 2 diabetes mellitus with other specified complication E11.69 Active 55215865 Problem Tobacco abuse Z72.0 Active 907282 000 Problem Parotiditis K11.20 Active 93827455 Problem Gastroesophageal reflux disease without esophagitis K21.9 Active 028897018 Problem Type II diabetes mellitus E11.9 Acti ve 49006819 Problem On home oxygen therapy Z99.81 Active 859502268600 Problem Morbid (severe) obesity due to excess calories E66 .01 Active 669063234 Problem Hyperlipidemia LDL goal <70 E78.5 Ac tive 74937743 Problem Seasonal allergic rhinitis due to pollen J30.1 Active 57312454 Problem Chronic bronchitis, unspecified chronic bronchitis type J42 Active 83018345 ALLERGIES No Information ENCOUNTERS Encounter Location Date Diagnosis [facility] [address] [facility] [id number] [place] [address] November, [facility] [address] [facility] [id number] [address] [place] [phone] Oct, [facility] [address] [facility] [id number] [address] [place] [phone] Oct, [facility] [address] [facility] [id number] [address] [place] [id number] Oct, [facility] [address] [facility] [id number] [address] [place] [id number] 25 Oct, 2019 Type II diabetes mellitus E1 1.9 [facility] [place] [address] [facility] [id number] [place] [address] 14 Oct, 2019 [facility] [address] [facility] [id number] [address] [place] [id number] 19 Sep, 2019 [facility] [address] [facility] [id number] [address] [place] [id number] 16 Sep, 2019 COPD (chronic obstructive pu lmonary disease) with 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 [facility] [address] [facility] [id number] [address] [place] [id number] 02 Sep, 2019 [facility] [address] [facility] [id number] [address] [place] [id number] 07 Aug, 2019 [facility] [address] [facility] [id number] [place] [address] 06 Aug, 2019 Essential hypertension I10 [facility] [address] [facility] [id number] [address] [place] [id number] 28 Jul, 2019 Parotiditis K11.20 [facility] [address] [facility] [id number] [address] [place] [address] Jul, [facility] [address] [facility] [id number] [address] [place] [id number] 20 Jul, 2019 Type II diabetes mellitus E1 1.9 [facility] [address] [facility] [id number] [address] [place] [phone] 13 Jul, 2019 [facility] [address] [facility] [id number] [address] [place] [id number] 13 Jul, 2019 Pneumonia due to infectious organism, unspecified laterality, unspecified part of lung J18.9 ; On home oxygen therapy Z99.81 ; Type II diabetes mellitus E11.9 ; Tobacco use disorder F17.200 and Encounter for tobacco use cessation counseling Z71.6 [facility] [address] [facility] [id number] [address] [place] [phone] 14 Apr, 2019 [facility] [address] [facility] [id number] [address] [place] [phone] 30 Mar, 2019 Acute non-recurrent frontal sinusitis J01.10 [facility] [address] [facility] [id number] [address] [place] [phone] 17 Mar, 2019 Type 2 diabetes mellitus wit hout complications E11.9 [facility] [address] [facility] [id number] [address] [place] [phone] Mar, Type 2 diabetes mellitus wit hout complications E11.9 ; Essential hypertension I10 and Chronic bronchitis, unspecified chronic bronchitis type J42 [facility] [address] [id number] [address] [place] [phone] Feb, [facility] [address] [facility] [id number] [address] [place] [phone] Dec, [facility] [address] [facility] [id number] [address] [place] [phone] Dec, [facility] [address] [facility] [id number] [address] [place] [address] November, [address] [id number] [address] November, [address] 340[id number] [address] November, [address] 340[id number] [address] November, Allergic rhinitis J30.9 [facility] [address] [facility] [id number] [address] [place] [address] November, [facility] [address] [facility] [id number] [address] [place] [phone] November, [facility] [address] [facility] [id number] [address] [place] [address] November, [facility] [address] [facility] [id number] [address] [place] [phone] Oct, [facility] [address] [facility] [id number] [address] [place] [address] Oct, Essential hypertension I10 [facility] [address] [facility] [id number] [address] [place] [phone] Oct, [facility] [address] [facility] [id number] [address] [place] [phone] Oct, [facility] [address] [facility] [id number] [address] [place] [address] Oct, [facility] [address] [facility] [id number] [address] [place] [address] Oct, [facility] [address] [facility] [id number] [address] [place] [phone] Oct, [facility] [address] [facility] [id number] [address] [place] [address] Oct, Shortness of breath R06.02 a nd Oxygen decrease R09.02 [facility] [address] [facility] [id number] [address] [place] [phone] Oct, [facility] [address] [facility] [id number] [address] [place] [address] Sep, COPD (chronic obstructive pu lmonary disease) with 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 ; On home oxygen therapy Z99.81 and Hypothyroidism E03.9 [facility] [address] [facility] [id number] [address] [place] [address] Sep, [facility] [address] [facility] [id number] [address] [place] [phone] Sep, [facility] [address] 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 [id number] [address] [place] [address] Sep, Allergic rhinitis J30.9 [facility] [address] [facility] [id number] [address] [place] [address] Aug, Allergic rhinitis J30.9 [facility] [address] [facility] [id number] [address] [place] [address] Aug, [facility] [address] [address] Aug, [facility] [address] [facility] [id number] [address] Aug, [facility] [address] [address] Jul, [facility] [address] [address] Jul, Type 2 diabetes mellitus wit h other specified complication E11.69 [facility] [address] [place] [id number] [address] [place] [address] Jun, [facility] [address] [address] May, Hyperlipidemia LDL goal <70 E78.5 ; 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 and Encounter for immunization Z23 [facility] [address] [address] May, [facility] [address] [place] [id number] [place] [address] May, Acute upper respiratory infe ction J06.9 [facility] [address] [address] May, Essential hypertension I10 [facility] [address] [address] May, Essential hypertension I10 [place] [address] [place] [id number] [address] [place] [address] Apr, Essential hypertension I10 [place] [address] [address] Apr, [place] [address] [place] [id number] [address] [place] [address] Apr, COPD (chronic obstructive pu lmonary disease) with 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 [place] [address] [address] Apr, [place] [address] [address] Mar, [place] [address] [address] Feb, Type 2 diabetes mellitus wit h other specified complication E11.69 ; [facility] current [...] Seasonal allergic rhinitis due to pollen J30.1 [place] [address] [place] [id number] [address] [place] [address] November, Pneumonia of right lower lob e due to infectious organism J18.1 ; 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 [id number] [address] [place] [address] Sep, [facility] [address] [facility] [id number] [address] [place] [address] Sep, [facility] [address] [facility] [id number] [address] [place] [phone] Sep, [facility] [address] [facility] [id number] [address] [place] [phone] Sep, [facility] [address] [facility] [id number] [address] [place] [phone] Jul, Encounter for immunization Z 23 [facility] [address] [facility] [id number] [address] [place] [address] Jun, Subacute maxillary sinusitis J01.00 [facility] [address] [place] [address] May, [facility] [address] [facility] [id number] [address] [place] [phone] May, [facility] [address] [place] [id number] [address] [place] [address] May, Type II diabetes mellitus E1 1.9 ; Hypothyroidism E03.9 ; 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 ; Cough R05 ; COPD with exacerbation J44.1 and Pneumonia of right lower lobe due to infectious organism J18.1 [facility] [address] [place] [address] Mar, Hyperlipidemia, unspecified hyperlipidemia type E78.5 [place] [address] [place] [id number] [address] [place] [address] Mar, Hypothyroidism E03.9 and Hyp erlipidemia, unspecified hyperlipidemia type E78.5 [facility] [address] [facility] [id number] [address] [place] [address] Feb, Type II diabetes mellitus E1 1.9 [...] full remission F33.42 and Urinary incontinence R32 [place] [address] [address] Jan, [place] [address] [address] Jan, [place] [address] [address] November, [place] [address] [address] Sep, Type II diabetes mellitus E1 1.9 [...] and Tinea pedis of both feet B35.3 [place] [address] [address] Jun, [facility] [address] [address] Jun, Acute upper respiratory infe ction, unspecified J06.9 and Other viral agents as the cause of diseases classified elsewhere B97.89 [facility] [address] [address] May, [facility] [address] [address] May, Type 2 diabetes mellitus wit h [...] thrush B37.0 and Encounter for immunization Z23 [address] [place] [address] Apr, [place] [address] [place] [id number] [address] [place] [address] Apr, [address] [address] Mar, [place] [address] [place] [address] Dec, [address] [place] [address] Dec, [place] [address] [place] [address] Dec, Encounter for well woman exa m with routine gynecological exam Z01.419 ; Encounter for screening for malignant neoplasm of cervix Z12.4 ; Screening mammogram, encounter for Z12.31 ; Encounter for screening breast examination Z12.39 ; On home oxygen therapy Z99.81 ; 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 ; Heat rash L74.0 ; Type II diabetes mellitus E11.9 and Hypothyroidism E03.9 [place] [address] [place] [id number] [address] [place] [address] November, [address] [address] November, Type II diabetes mellitus E1 1.9 ; Allergic rhinitis J30.9 ; Hypothyroidism E03.9 ; Obesity due to excess calories E66.09 ; Urinary incontinence R32 ; Gastroesophageal reflux disease without esophagitis K21.9 and Essential hypertension I10 [place] [address] [place] [address] Oct, [facility] [address] [address] Sep, [facility] [address] [place] [id number] [address] [place] [address] Sep, [facility] [address] [address] 27 Aug, 2015 Acute maxillary sinusitis J0 1.00 [facility] [address] [address] Aug, [facility] [address] [address] 22 Aug, 2015 [facility] [address] [address] 16 Aug, 2015 Type II diabetes mellitus E1 1.9 [place] [address] [address] 05 Aug, 2015 Type II diabetes mellitus E1 1.9 ; Hypothyroidism E03.9 ; 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 ; Obesity due to excess calories E66.09 ; Urinary incontinence R32 ; Anemia D64.9 ; Microcytic anemia D50.9 and Allergic rhinitis J30.9 [place] [address] [place] [id number] [address] [place] [address] May, Upper respiratory symptom R0 9.89 [place] [address] [place] [id number] [address] [place] [address] May, Oral thrush B37.[address] [address] Apr, Hypothyroidism E03.9 and Harish rocytic anemia D50.9 [place] [address] [place] [id number] [address] [place] [address] Apr, Encounter for long-term curr ent use of medication Z79.899 ; Hypothyroidism E03.9 ; Microcytic anemia D50.9 ; Type 2 diabetes mellitus without complication E11.9 ; Essential hypertension I10 and Mixed incontinence N39.46 [facility] [address] [address] Apr, [facility] [address] [place] [id number] [place] [address] Mar, [facility] [address] [address] Mar, [facility] [address] [address] Mar, [facility] [address] [address] Mar, [facility] [address] [address] Mar, [facility] [address] [address] Mar, [facility] [address] [address] Mar, [facility] [address] [address] Feb, Cough 786.2 ; Wheezing 786.0 7 ; Hypothyroidism 244.9 and Encounter for long-term current use of medication V58.69 [facility] [address] [place] [id number] [address] [place] [address] Feb, Diabetes type 2, uncontrolle d 250.02 ; Depression 311 ; Encounter for long-term current use of medication V58.69 and Hypothyroidism 244.9 [facility] [address] [place] [id number] [address] [place] [address] Feb, [facility] [address] [place] [id number] [place] [address] Jan, [facility] [address] [place] [address] 28 Oct, 2014 [facility] [address] [id number] [address] [place] [address], [place] [address] 14 Oct, 2014 [facility] [address] [id number] [address] [place] [address], [place] [address] Oct, [facility] [address] [id number] [address] [place] [address], [place] [address] Sep, [facility] [address] [id number] [address] [place] [address], [place] [address] Sep, [facility] [address] [id number] [address] [place] [address], [place] [address] Sep, [facility] [address] [id number] [address] [place] [address], [place] [address] Aug, [facility] [address] [id number] [address] [place] [address], [place] [address] Aug, [facility] [address] [id number] [address] [place] [address], [place] [address] Jul, [facility] [address] [id number] [address] [place] [address], [place] [address] Jul, [facility] [address] [id number] [address] [place] [address], [place] [address] Jul, [facility] [address] [id number] [address] [place] [address], [place] [address] Jul, [facility] [address] [id number] [address] [place] [address], [place] [address] Jul, [facility] [address] [id number] [address] [place] [address], [place] [address] Jul, [facility] [address] [id number] [address] [place] [address], [place] [address] Jul, [facility] [address] [id number] [address] [place] [address], [place] [address] Jul, [facility] [address] [id number] [address] [place] [address], [place] [address] Jun, [facility] [address] [id number] [address] [place] [address], [place] [address] Jun, [facility] [address] [id number] [address] [place] [address], [place] [address] May, [facility] [address] [id number] [address] [place] [address], [place] [address] May, [facility] [address] [id number] [address] [place] [address], [place] [address] May, [facility] [address] [id number] [address] [place] [address], [place] [address] Apr, [facility] [address] [id number] [address] [place] [address], [place] [address] Apr, [facility] [address] [id number] [address] [place] [address], [place] [address] Apr, [facility] [address] [id number] [address] [place] [address], [place] [address] Apr, [facility] [address] [id number] [address] [place] [address], [place] [address] Apr, [facility] [address] [id number] [address] [place] [address], [place] [address] Apr, [facility] [address] [id number] [address] [place] [address], [place] [address] Mar, [facility] [address] [id number] [address] [place] [address], [place] [address] 22 Mar, 2014 [facility] [address] [id number] [address] [place] [address], [place] [address] 19 Mar, 2014 [facility] [address] [id number] [address] [place] [address], [place] [address] 19 Mar, 2014 [facility] [address] [id number] [address] [place] [address], [place] [address] Sep, [facility] [address] [id number] [address] [place] [address], [place] [address] Sep, [facility] [address] [id number] [address] [place] [address], [place] [address] Sep, [facility] [address] [id number] [address] [place] [address], [place] [address] Sep, [facility] [address] [id number] [address] [place] [address], [place] [address] Aug, [facility] [address] [id number] [address] [place] [address], [place] [address] Aug, [facility] [address] [id number] [address] [place] [address], [place] [address] Aug, [facility] [address] [id number] [address] [place] [address], [place] [address] Aug, [facility] [address] [id number] [address] [place] [address], [place] [address] Aug, [facility] [address] [id number] [address] [place] [address], [place] [address] Aug, [facility] [address] [id number] [address] [place] [address], [place] [address] Jul, [facility] [address] [id number] [address] [place] [address], [place] [address] Jul, [facility] [address] [id number] [address] [place] [address], [place] [address] Jul, [facility] [address] [id number] [address] [place] [address], [place] [address] Jul, [facility] [address] [id number] [address] [place] [address], [place] [address] Jun, [facility] [address] [id number] [address] [place] [address], [place] [address] Jun, [facility] [address] [id number] [address] [place] [address], [place] [address] May, [facility] [address] [id number] [address] [place] [address], [place] [address] May, [facility] [address] [id number] [address] [place] [address], [place] [address] Apr, [facility] [address] [id number] [address] [place] [address], [place] [address] Apr, [facility] [address] [id number] [address] [place] [address], [place] [address] Apr, [facility] [address] [id number] [address] [place] [address], [place] [address] Mar, [facility] [address] [id number] [address] [place] [address], [place] [address] Mar, [facility] [address] [id number] [address] [place] [address], [place] [address] Mar, [facility] [address] [id number] [address] [place] [address], [place] [address] Mar, [facility] [address] [id number] [address] [place] [address], [place] [address] Feb, [facility] [address] [id number] [address] [place] [address], [place] [address] Jan, [facility] [address] [id number] [address] [place] [address], [place] [address] Jan, [facility] [address] [id number] [address] [place] [address], [place] [address] Jan, [facility] [address] [id number] [address] [place] [address], [place] [address] Jan, [facility] [address] [id number] [address] [place] [address], [place] [address] Dec, [facility] [address] [id number] [address] [place] [address], [place] [address] Dec, [facility] [address] [id number] [address] [place] [address], [place] [address] Dec, [facility] [address] [id number] [address] [place] [address], [place] [address] Dec, [facility] [address] [id number] [address] [place] [address], [place] [address] Dec, [facility] [address] [id number] [address] [place] [address], [place] [address] Dec, [facility] [address] [id number] [address] [place] [address], [place] [address] November, [facility] [address] [id number] [address] [place] [address], [place] [address] November, [facility] [address] [id number] [address] [place] [address], [place] [address] November, [facility] [address] [id number] [address] [place] [address], [place] [address] Oct, [facility] [address] [id number] [address] [place] [address], [place] [address] Oct, [facility] [address] [id number] [address] [place] [address], [place] [address] Sep, [facility] [address] [id number] [address] [place] [address], [place] [address] Sep, [facility] [address] [id number] [address] [place] [address], [place] [address] Sep, [facility] [address] [id number] [address] [place] [address], [place] [address] Sep, [facility] [address] [id number] [address] [place] [address], [place] [address] Sep, [facility] [address] [id number] [address] [place] [address], [place] [address] Aug, [facility] [address] [id number] [address] [place] [address], [place] [address] 12 Aug, 2012 [facility] [address] [id number] [address] [place] [address], [place] [address] 11 Aug, 2012 [facility] [address] [id number] [address] [place] [address], [place] [address] 07 Aug, 2012 [facility] [address] [id number] [address] [place] [address], [place] [address] 04 Aug, 2012 [facility] [address] [id number] [address] [place] [address], [place] [address] Jul, [facility] [address] [id number] [address] [place] [address], [place] [address] Jul, [facility] [address] [id number] [address] [place] [address], [place] [address] Jun, [facility] [address] [id number] [address] [place] [address], [place] [address] Jun, [facility] [address] [id number] [address] [place] [address], [place] [address] 18 Jun, 2012 [facility] [address] [id number] [address] [place] [address], [place] [address] 18 Jun, 2012 [facility] [address] [id number] [address] [place] [address], [place] [address] 10 Jun, 2012 [facility] [address] [id number] [address] [place] [address], [place] [address] 10 Jun, 2012 [facility] [address] [id number] [address] [place] [address], [place] [address] 07 Jun, 2012 [facility] [address] [id number] [address] [place] [address], [place] [address] 06 Jun, 2012 [facility] [address] [id number] [address] [place] [address], [place] [address] 06 Jun, 2012 [facility] [address] [id number] [address] [place] [address], [place] [address] May, [facility] [address] [id number] [address] [place] [address], [place] [address] May, [facility] [address] [id number] [address] [place] [address], [place] [address] May, [facility] [address] [id number] [address] [place] [address], [place] [address] May, [facility] [address] [id number] [address] [place] [address], [place] [address] May, [facility] [address] [id number] [address] [place] [address], [place] [address] May, [facility] [address] [id number] [address] [place] [address], [place] [address] May, [facility] [address] [id number] [address] [place] [address], [place] [address] Apr, [facility] [address] [id number] [address] [place] [address], [place] [address] Mar, [facility] [address] [id number] [address] [place] [address], [place] [address] Mar, [facility] [address] [id number] [address] [place] [address], [place] [address] Feb, [facility] [address] [id number] [address] [place] [address], [place] [address] Feb, [facility] [address] [id number] [address] [place] [address], [place] [address] Feb, [facility] [address] [id number] [address] [place] [address], [place] [address] Feb, [facility] [address] [id number] [address] [place] [address], [place] [address] Jan, [facility] [address] [id number] [address] [place] [address], [place] [address] Jan, [facility] [address] [id number] [address] [place] [address], [place] [address] Jan, [facility] [address] [id number] [address] [place] [address], [place] [address] 06 Jan, 2012 [facility] [address] [id number] [address] [place] [address], [place] [address] Dec, [facility] [address] [id number] [address] [place] [address], [place] [address] Dec, [facility] [address] [id number] [address] [place] [address], [place] [address] 17 Dec, 2011 [facility] [address] [id number] [address] [place] [address], [place] [address] 15 Dec, 2011 [facility] [address] [id number] [address] [place] [address], [place] [address] Dec, [facility] [address] [id number] [address] [place] [address], [place] [address] Sep, [facility] [address] [id number] [address] [place] [address], [place] [address] Aug, [facility] [address] [id number] [address] [place] [address], [place] [address] Jul, [facility] [address] [id number] [address] [place] [address], [place] [address] 16 Jun, 2011 [facility] [address] [id number] [address] [place] [address], [place] [address] Jun, [facility] [address] [id number] [address] [place] [address], [place] [address] Jun, [facility] [address] [id number] [address] [place] [address], [place] [address] 05 Jun, 2011 [facility] [address] [id number] [address] [place] [address], [place] [address] May, [facility] [address] [id number] [address] [place] [address], [place] [address] May, [facility] [address] [facility] [id number] [address] [place] [address] Apr, [facility] [address] [facility] [id number] [address] [place] [address] Jun, [facility] [address] [facility] [id number] [address] [place] [address] Apr, IMMUNIZATIONS No Known Immunizations SOCIAL HISTORY Never Assessed REASON FOR VISIT PLAN OF CARE VITAL SIGNS MEDICATIONS Unknown Medications RESULTS No Results PROCEDURES Procedure Date Ordered Result Body Site ASSAY THYROID STIM HORMONE January 04, 2012 ASSAY OF FREE THYROXINE January 04, 2012 COMPREHEN METABOLIC PANEL January 04, 2012 VENIPUNCT, ROUTINE* January 04, 2012 INSTRUCTIONS MEDICATIONS ADMINISTERED No Known Medications MEDICAL [...] 11/2017 Hospitalization History pneumonia 10/07 Hospitalization History [facility] 03/09/19 Hospitalization History via [email or web address]. 07/17/19
--- OUTSIDE RECORDS SUMMARY | 2019-12-24 00:29 | XMS REPORT ---
Author Author Don FALCON Organization 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 Role Phone JOEL FALCON Unavailable PROBLEMS Type Condition ICD9-CM Code [id number] Code Onset Dates Condition S tatus SNOMED Code Problem Urinary incontinence R32 Active 549343728 Problem Hypothyroidism E03.9 Active 26302 008 Problem Allergic rhinitis J30.9 Active 61 127911 Problem 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 Active 90978217 Problem Microcytic anemia D50.9 Active 23 6979706 Problem Essential hypertension I10 Active 82012668 Problem Type 2 diabetes mellitus with other specified complication E11.69 Active 72879676 Problem Tobacco abuse Z72.0 Active 117901 000 Problem Parotiditis K11.20 Active 31598856 Problem Gastroesophageal reflux disease without esophagitis K21.9 Active 712195079 Problem Type II diabetes mellitus E11.9 Acti ve 20868357 Problem On home oxygen therapy Z99.81 Active 588453636696 Problem Morbid (severe) obesity due to excess calories E66 .01 Active 839571039 Problem Hyperlipidemia LDL goal <70 E78.5 Ac tive 91189506 Problem Seasonal allergic rhinitis due to pollen J30.1 Active 71026410 Problem Chronic bronchitis, unspecified chronic bronchitis type J42 Active 14408423 ALLERGIES No Information ENCOUNTERS Encounter Location Date Diagnosis [facility] [address] [facility] [id number] [place], [place] [address] November, [facility] [address] [facility] [id number] [address] [place] [address] Oct, [facility] [address] [facility] [id number] [address] [place] [phone] Oct, [facility] [address] [facility] [id number] [address] [place] [phone] Oct, [facility] [address] [facility] [id number] [address] [place] [address] Oct, Type II diabetes mellitus E1 1.9 [facility] [address] [facility] [id number] [place] [address] 14 Oct, 2019 [facility] [address] [facility] [id number] [address] [place] [phone] 19 Sep, 2019 [facility] [address] [facility] [id number] [address] [place] [address] 16 Sep, 2019 COPD (chronic obstructive pu lmonary disease) with emphysema J43.9 [facility] [address] [facility] [id number] [address] [place] [address] 02 Sep, 2019 [facility] [address] [facility] [id number] [address] [place] [phone] 07 Aug, 2019 [facility] [address] [place] [id number] [place] [phone] 06 Aug, 2019 Essential hypertension I10 [facility] [address] [facility] [id number] [address] [place] [address] Jul, Parotiditis K11.20 [facility] [address] [facility] [id number] [address] [place] [address] Jul, [facility] [address] [facility] [id number] [address] [place] [phone] Jul, Type II diabetes mellitus E1 1.9 [facility] [address] [facility] [id number] [address] [place] [phone] 13 Jul, 2019 [facility] [address] [facility] [id number] [address] [place] [address] Jul, Pneumonia due to infectious organism, unspecified laterality, unspecified part of lung J18.9 ; On home oxygen therapy Z99.81 ; Type II diabetes mellitus E11.9 ; Tobacco use disorder F17.200 and Encounter for tobacco use cessation counseling Z71.6 [facility] [address] [facility] [id number] [address] [place] [address] Apr, [facility] [address] [id number] [address] [place] [address] Mar, Acute non-recurrent frontal sinusitis J01.10 [facility] [address] [id number] [address] [place] [phone] Mar, Type 2 diabetes mellitus wit hout complications E11.9 [facility] [address] [id number] [address] [place] [address] Mar, Type 2 diabetes mellitus wit hout complications E11.9 ; Essential hypertension I10 and Chronic bronchitis, unspecified chronic bronchitis type J42 [facility] [address] [id number] [address] [place] [phone] Feb, [facility] [address] [id number] [address] [place] [phone] Dec, [facility] [address] [id number] [address] [place] [phone] Dec, [facility] [address] [id number] [address] [place] [address] November, [address] [id number] [address] November, [address] [id number] [address] November, [address] [id number] [address] November, Allergic rhinitis J30.9 [facility] [address] [id number] [address] [place] [phone] November, [facility] [address] [id number] [address] [place] [address] November, [facility] [address] [facility] [id number] [address] [place] [address] November, [facility] [address] [facility] [id number] [address] [place] [phone] Oct, [facility] [address] [id number] [address] [place] [address] Oct, Essential hypertension I10 [facility] [address] [facility] [id number] [address] [place] [phone] Oct, [facility] [address] [facility] [id number] [address] [place] [address] Oct, [facility] [address] [id number] [address] [place] [phone] Oct, [facility] [address] [facility] [id number] [address] [place] [address] Oct, [facility] [address] [facility] [id number] [address] [place] [phone] Oct, [facility] [address] [facility] [id number] [address] [place] [address] Oct, Shortness of breath R06.02 a nd Oxygen decrease R09.02 [facility] [address] [facility] [id number] [address] [place] [phone] Oct, [facility] [address] [facility] [id number] [address] [place] [phone] Sep, COPD (chronic obstructive pu lmonary disease) with emphysema J43.9 ; On home oxygen therapy Z99.81 and Hypothyroidism E03.9 [facility] [address] [facility] [id number] [address] [place] [address] Sep, [facility] [address] [facility] [id number] [address] [place] [phone] Sep, [facility] [address] [facility] [id number] [address] [place] [address] Sep, Acute on chronic respiratory failure with hypoxia J96.21 ; Hypothyroidism E03.9 ; 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 ; Essential hypertension I10 ; Type 2 diabetes mellitus with other specified complication E11.69 ; FPC current use of insulin Z79.4 and Hyperlipidemia LDL goal <70 E78.5 [facility] [address] [facility] [id number] [address] [place] [phone] Sep, Allergic rhinitis J30.9 [facility] [address] [facility] [id number] [address] [place] [address] Aug, Allergic rhinitis J30.9 [facility] [address] [facility] [id number] [address] [place] [phone] Aug, [facility] [address] [facility] [id number] [address] [place] [phone] Aug, [facility] [address] [facility] [id number] [address] [place] [phone] Aug, [facility] [address] [facility] [id number] [address] [place] [phone] Jul, [facility] [address] [facility] [id number] [address] [place] [address] Jul, Type 2 diabetes mellitus wit h other specified complication E11.69 [facility] [address] [facility] [id number] [address] [place] [phone] Jun, [facility] [address] [facility] [id number] [place] [address] May, Hyperlipidemia LDL goal <70 E78.5 ; 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 and Encounter for immunization Z23 [facility] [address] [facility] [id number] [address] [place] [phone] May, [facility] [address] [facility] [id number] [address] [place] [phone] May, Acute upper respiratory infe ction J06.9 [facility] [address] [facility] [id number] [address] [place] [phone] 02 May, 2018 Essential hypertension I10 [facility] [address] [place] [id number] [place] [phone] May, Essential hypertension I10 [facility] [address] [facility] [id number] [address] [place] [phone] Apr, Essential hypertension I10 [facility] [address] [facility] [id number] [address] [place] [phone] Apr, [facility] [address] [place] [id number] [address] [place] [phone] Apr, COPD (chronic obstructive pu lmonary disease) with emphysema J43.9 [facility] [address] [facility] [id number] [address] [place] [address] Apr, [facility] [address] [place] [id number] [address] [place] [phone] Mar, 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 [address] [facility] [id number] [address] [place] [phone] November, [facility] [address] [facility] [id number] [address] [place] [phone] Sep, [facility] [address] [facility] [id number] [address] [place] [address] Sep, [facility] [address] [facility] [id number] [address] [place] [phone] Sep, [facility] [address] [facility] [id number] [address] [place] [address] Sep, [facility] [address] [facility] [id number] [address] [place] [address] Jul, Encounter for immunization Z 23 [facility] [address] [facility] [id number] [address] [place] [address] Jun, Subacute maxillary sinusitis J01.00 [facility] [address] [facility] [id number] [address] [place] [address] May, [facility] [address] [facility] [id number] [address] [address] May, [facility] [address] [facility] [id number] [address] [place] [address] May, Type II diabetes mellitus E1 1.9 ; Hypothyroidism E03.9 ; 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 ; Cough R05 ; COPD with exacerbation J44.1 and Pneumonia of right lower lobe due to infectious organism J18.1 [facility] [address] [facility] [id number] [address] [place] [phone] 08 Mar, 2017 Hyperlipidemia, unspecified hyperlipidemia type E78.5 [facility] [address] [facility] [id number] [address] [place] [phone] 07 Mar, 2017 Hypothyroidism E03.9 and Hyp erlipidemia, unspecified hyperlipidemia type E78.5 [facility] [address] [facility] [id number] [address] [place] [address] Feb, Type II diabetes mellitus E1 1.9 [...] full remission F33.42 and Urinary incontinence R32 [facility] [address] [address] Jan, [place] [address] [address] Jan, [facility] [address] [address] November, [place] [address] [address] Sep, Type II diabetes mellitus E1 1.9 [...] and Tinea pedis of both feet B35.3 [facility] [address] [place] [id number] [address] [place] [address] Jun, [facility] [address] [place] [id number] [address] [place] [address] Jun, Acute upper respiratory infe ction, unspecified J06.9 and Other viral agents as the cause of diseases classified elsewhere B97.89 [facility] [address] [place] [id number] [address] [place] [address] May, [facility] [address] [address] May, Type 2 diabetes mellitus wit h [...] thrush B37.0 and Encounter for immunization Z23 [facility] [address] [place] [id number] [address] [place] [address] Apr, [place] [address] [address] Apr, [place] [address] [address] Mar, [place] [address] [address] Dec, [place] [address] [place] [id number] [address] [place] [address] Dec, [place] [address] [address] Dec, Encounter for well woman gurinder m with routine gynecological exam Z01.419 ; Encounter for screening for malignant neoplasm of cervix Z12.4 ; Screening mammogram, encounter for Z12.31 ; Encounter for screening breast examination Z12.39 ; On home oxygen therapy Z99.81 ; 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 ; Heat rash L74.0 ; Type II diabetes mellitus E11.9 and Hypothyroidism E03.[address] [place] [address] [address] November, [place] [address] [address] November, Type II diabetes mellitus E1 1.9 ; Allergic rhinitis J30.9 ; Hypothyroidism E03.9 ; Obesity due to excess calories E66.09 ; Urinary incontinence R32 ; Gastroesophageal reflux disease without esophagitis K21.9 and Essential hypertension I10 [facility] [address] [address] Oct, [facility] [address] [address] Sep, [facility] [address] [address] Sep, [facility] [address] [address] Aug, Acute maxillary sinusitis J0 1.00 [facility] [address] [address] Aug, [facility] [address] [address] Aug, [facility] [address] [id number] 16 Aug, 2015 Type II diabetes mellitus E1 1.9 [place] [address] [address] 05 Aug, 2015 Type II diabetes mellitus E1 1.9 ; Hypothyroidism E03.9 ; 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 ; Obesity due to excess calories E66.09 ; Urinary incontinence R32 ; Anemia D64.9 ; Microcytic anemia D50.9 and Allergic rhinitis J30.9 [place] [address] [address] May, Upper respiratory symptom R0 9.89 [place] [address] [address] 09 May, 2015 Oral thrush B37.0 [place] [address] [address] 28 Apr, 2015 Hypothyroidism E03.9 and Harish rocytic anemia D50.9 [place] [address] [address] Apr, Encounter for long-term curr ent use of medication Z79.899 ; Hypothyroidism E03.9 ; Microcytic anemia D50.9 ; Type 2 diabetes mellitus without complication E11.9 ; Essential hypertension I10 and Mixed incontinence N39.46 [facility] [address] [facility] [id number] [address] [place] [address] Apr, [facility] [address] [facility] [id number] [address] [place] [address] Mar, [facility] [address] [facility] [id number] [address] [place] [phone] Mar, [facility] [address] [facility] [id number] [address] [place] [address] Mar, [facility] [address] [place] [id number] [address] [place] [address] Mar, [facility] [address] [facility] [id number] [address] [place] [phone] Mar, [facility] [address] [facility] [id number] [address] [place] [address] Mar, [facility] [address] [facility] [id number] [address] [place] [phone] Mar, [facility] [address] [facility] [id number] [address] [place] [address] Feb, Cough 786.2 ; Wheezing 786.0 7 ; Hypothyroidism 244.9 and Encounter for long-term current use of medication V58.69 [facility] [address] [facility] [id number] [address] [place] [id number] Feb, Diabetes type 2, uncontrolle d 250.02 ; Depression 311 ; Encounter for long-term current use of medication V58.69 and Hypothyroidism 244.9 [facility] [address] [facility] [id number] [address] [place] [id number] Feb, [facility] [address] [facility] [id number] [address] [place] [id number] Jan, [facility] [address] [id number] [address] [place] [address], [place] [address] Oct, [facility] [address] [id number] [address] [place] [address], [place] [address] Oct, [facility] [address] [id number] [address] [place] [address], [place] [address] Oct, [facility] [address] [id number] [address] [place] [address], [place] [address] Sep, [facility] [address] [id number] [address] [place] [address], [place] [address] Sep, [facility] [address] [id number] [address] [place] [address], [place] [address] Sep, [facility] [address] [id number] [address] [place] [address], [place] [address] Aug, [facility] [address] [id number] [address] [place] [address], [place] [address] Aug, [facility] [address] [id number] [address] [place] [address], [place] [address] Jul, [facility] [address] [id number] [address] [place] [address], [place] [address] Jul, [facility] [address] [id number] [address] [place] [address], [place] [address] Jul, [facility] [address] [id number] [address] [place] [id number] Jul, [facility] [address] [id number] [address] [place] [address], [place] [address] Jul, [facility] [address] [id number] [address] [place] [address], [place] [address] Jul, [facility] [address] [id number] [address] [place] [address], [place] [address] Jul, [facility] [address] [id number] [address] [place] [address], [place] [address] Jul, [facility] [address] [id number] [address] [place] [address], [place] [address] Jun, [facility] [address] [id number] [address] [place] [address], [place] [address] Jun, [facility] [address] [id number] [address] [place] [address], [place] [address] May, [facility] [address] [id number] [address] [place] [address], [place] [address] May, [facility] [address] [id number] [address] [place] [address], [place] [address] May, [facility] [address] [id number] [address] [place] [address], [place] [address] Apr, [facility] [address] [id number] [address] [place] [address], [place] [address] Apr, [facility] [address] [id number] [address] [place] [address], [place] [address] Apr, [facility] [address] [id number] [address] [place] [address], [place] [address] Apr, [facility] [address] [id number] [address] [place] [address], [place] [address] Apr, [facility] [address] [id number] [address] [place] [address], [place] [address] Apr, [facility] [address] [id number] [address] [place] [address], [place] [address] Mar, [facility] [address] [id number] [address] [place] [address], [place] [address] 22 Mar, 2014 [facility] [address] [id number] [address] [place] [address], [place] [address] 19 Mar, 2014 [facility] [address] [id number] [address] [place] [address], [place] [address] Mar, [facility] [address] [id number] [facility] [place] [address] Sep, [facility] [address] [id number] [address] [place] [address], [place] [address] Sep, [facility] [address] [id number] [address] [place] [address], [place] [address] Sep, [facility] [address] [id number] [address] [place] [address], [place] [address] Sep, [facility] [address] [id number] [address] [place] [address], [place] [address] Aug, [facility] [address] [id number] [address] [place] [address], [place] [address] Aug, [facility] [address] [id number] [address] [place] [address], [place] [address] Aug, [facility] [address] [id number] [address] [place] [address], [place] [address] Aug, [facility] [address] [id number] [address] [place] [address], [place] [address] Aug, [facility] [address] [id number] [address] [place] [address], [place] [address] Aug, [facility] [address] [id number] [address] [place] [address], [place] [address] Jul, [facility] [address] [id number] [address] [place] [address], [place] [address] Jul, [facility] [address] [id number] [address] [place] [address], [place] [address] Jul, [facility] [address] [id number] [address] [place] [address], [place] [address] Jul, [facility] [address] [id number] [address] [place] [address], [place] [address] Jun, [facility] [address] [id number] [address] [place] [address], [place] [address] Jun, [facility] [address] [id number] [address] [place] [address], [place] [address] May, [facility] [address] [id number] [address] [place] [address], [place] [address] May, [facility] [address] [id number] [address] [place] [address], [place] [address] Apr, [facility] [address] [id number] [address] [place] [address], [place] [address] Apr, [facility] [address] [id number] [address] [place] [address], [place] [address] Apr, [facility] [address] [id number] [address] [place] [address], [place] [address] Mar, [facility] [address] [id number] [address] [place] [address], [place] [address] Mar, [facility] [address] [id number] [address] [place] [address], [place] [address] Mar, [facility] [address] [id number] [address] [place] [address], [place] [address] Mar, [facility] [address] [id number] [address] [place] [address], [place] [address] Feb, [facility] [address] [id number] [address] [place] [address], [place] [address] Jan, [facility] [address] [id number] [address] [place] [address], [place] [address] Jan, [facility] [address] [id number] [address] [place] [address], [place] [address] Jan, [facility] [address] [id number] [address] [place] [address], [place] [address] Jan, [facility] [address] [id number] [address] [place] [address], [place] [address] Dec, [facility] [address] [id number] [address] [place] [address], [place] [address] Dec, [facility] [address] [id number] [address] [place] [address], [place] [address] Dec, [facility] [address] [id number] [address] [place] [address], [place] [address] Dec, [facility] [address] [id number] [address] [place] [address], [place] [address] Dec, [facility] [address] [id number] [address] [place] [address], [place] [address] Dec, [facility] [address] [id number] [address] [place] [address], [place] [address] November, [facility] [address] [id number] [address] [place] [address], [place] [address] November, [facility] [address] [id number] [address] [place] [address], [place] [address] November, [facility] [address] [id number] [address] [place] [address], [place] [address] Oct, [facility] [address] [id number] [address] [place] [address], [place] [address] Oct, [facility] [address] [id number] [address] [place] [address], [place] [address] Sep, [facility] [address] [id number] [address] [place] [address], [place] [address] Sep, [facility] [address] [id number] [address] [place] [address], [place] [address] Sep, [facility] [address] [id number] [address] [place] [address], [place] [address] Sep, [facility] [address] [id number] [address] [place] [address], [place] [address] Sep, [facility] [address] [id number] [address] [place] [address], [place] [address] 22 Aug, 2012 [facility] [address] [id number] [address] [place] [address], [place] [address] 12 Aug, 2012 [facility] [address] [id number] [address] [place] [address], [place] [address] 11 Aug, 2012 [facility] [address] [id number] [address] [place] [address], [place] [address] 07 Aug, 2012 [facility] [address] [id number] [address] [place] [address], [place] [address] 04 Aug, 2012 [facility] [address] [id number] [address] [place] [address], [place] [address] Jul, [facility] [address] [id number] [address] [place] [address], [place] [address] 08 Jul, 2012 [facility] [address] [id number] [address] [place] [address], [place] [address] Jun, [facility] [address] [id number] [address] [place] [address], [place] [address] Jun, [facility] [address] [id number] [address] [place] [address], [place] [address] 18 Jun, 2012 [facility] [address] [id number] [address] [place] [address], [place] [address] 18 Jun, 2012 [facility] [address] [id number] [address] [place] [address], [place] [address] 10 Jun, 2012 [facility] [address] [id number] [address] [place] [address], [place] [address] 10 Jun, 2012 [facility] [address] [id number] [address] [place] [address], [place] [address] 07 Jun, 2012 [facility] [address] [id number] [address] [place] [address], [place] [address] 06 Jun, 2012 [facility] [address] [id number] [address] [place] [address], [place] [address] Jun, [facility] [address] [id number] [address] [place] [address], [place] [address] May, [facility] [address] [id number] [address] [place] [address], [place] [address] May, [facility] [address] [id number] [address] [place] [address], [place] [address] May, [facility] [address] [id number] [address] [place] [address], [place] [address] May, [facility] [address] [id number] [address] [place] [address], [place] [address] May, [facility] [address] [id number] [address] [place] [address], [place] [address] May, [facility] [address] [id number] [address] [place] [address], [place] [address] May, [facility] [address] [id number] [address] [place] [address], [place] [address] Apr, [facility] [address] [id number] [address] [place] [address], [place] [address] Mar, [facility] [address] [id number] [address] [place] [address], [place] [address] Mar, [facility] [address] [id number] [address] [place] [address], [place] [address] Feb, [facility] [address] [id number] [address] [place] [address], [place] [address] Feb, [facility] [address] [id number] [address] [place] [address], [place] [address] Feb, [facility] [address] [id number] [address] [place] [address], [place] [address] Feb, [facility] [address] [id number] [address] [place] [address], [place] [address] Jan, [facility] [address] [id number] [address] [place] [address], [place] [address] Jan, [facility] [address] [id number] [address] [place] [address], [place] [address] Jan, [facility] [address] [id number] [address] [place] [address], [place] [address] 06 Jan, 2012 [facility] [address] [id number] [address] [place] [address], [place] [address] Dec, [facility] [address] [id number] [address] [place] [address], [place] [address] Dec, [facility] [address] [id number] [address] [place] [address], [place] [address] Dec, [facility] [address] [id number] [address] [place] [address], [place] [address] 15 Dec, 2011 [facility] [address] [id number] [address] [place] [address], [place] [address] Dec, [facility] [address] [id number] [address] [place] [address], [place] [address] Sep, [facility] [address] [id number] [address] [place] [address], [place] [address] Aug, [facility] [address] [id number] [address] [place] [address], [place] [address] Jul, [facility] [address] [id number] [address] [place] [address], [place] [address] 16 Jun, 2011 [facility] [address] [id number] [address] [place] [address], [place] [address] Jun, [facility] [address] [id number] [address] [place] [address], [place] [address] Jun, [facility] [address] [id number] [address] [place] [address], [place] [address] 05 Jun, 2011 [facility] [address] [id number] [address] [place] [address], [place] [address] May, [facility] [address] [id number] [place] [address] May, [facility] [address] [facility] [id number] [address] [place] [address] Apr, [facility] [address] [facility] [id number] [address] [place] [address] Jun, [facility] [address] [facility] [id number] [address] [place] [address] Apr, IMMUNIZATIONS No Known Immunizations SOCIAL HISTORY Never Assessed REASON FOR VISIT PLAN OF CARE VITAL SIGNS Height 66 in 2014-07-26 Weight 228 lbs 2014-07-26 Temperature 98 degrees Fahrenheit 2014-07-26 Heart Rate 106 bpm 2014-07-26 Respiratory Rate 20 2014-07-26 Blood pressure systolic 130 mmHg 2014-07-26 Blood pressure diastolic 86 mmHg 2014-07-26 MEDICATIONS Unknown Medications RESULTS No Results PROCEDURES Procedure Date Ordered Result Body Site MEASURE BLOOD OXYGEN LEVEL Jul 26, 2014 INSTRUCTIONS MEDICATIONS ADMINISTERED No Known Medications MEDICAL [...] 11/2017 Hospitalization History pneumonia 10/07 Hospitalization History [facility] 03/09/19 Hospitalization History via [email or web address]. 07/17/19
--- OUTSIDE RECORDS SUMMARY | 2019-12-24 00:29 | XMS REPORT ---
Author Author Don Jay Doctor Organization [facility] Address Unknown Phone Unavailable Care Team Providers Care Anode Crew Supervisor Name Role Phone Migration, Doctor Unavailable Unavailable PROBLEMS Type Condition ICD9-CM Code EOX96-YQ Code Onset Dates Condition S tatus SNOMED Code Problem Urinary incontinence R32 Active 686724904 Problem Hypothyroidism E03.9 Active 40048 008 Problem Allergic rhinitis J30.9 Active 61 854215 Problem 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 Active 89757986 Problem Microcytic anemia D50.9 Active 23 6184651 Problem Essential hypertension I10 Active 44567756 Problem Type 2 diabetes mellitus with other specified complication E11.69 Active 08922216 Problem Tobacco abuse Z72.0 Active 375631 000 Problem Parotiditis K11.20 Active 26535966 Problem Gastroesophageal reflux disease without esophagitis K21.9 Active 195822249 Problem Type II diabetes mellitus E11.9 Acti ve 78044066 Problem On home oxygen therapy Z99.81 Active 112255638154 Problem Morbid (severe) obesity due to excess calories E66 .01 Active 998755706 Problem Hyperlipidemia LDL goal <70 E78.5 Ac tive 30411529 Problem Seasonal allergic rhinitis due to pollen J30.1 Active 75719031 Problem Chronic bronchitis, unspecified chronic bronchitis type J42 Active 18971629 ALLERGIES No Information ENCOUNTERS Encounter Location Date Diagnosis [facility] [id number] [place] [phone] November, [facility] [id number] [place] [phone] November, Tobacco use disorder F17.200 ; 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 ; Encounter for tobacco use cessation counseling Z71.6 ; On home oxygen therapy Z99.81 ; Type 2 diabetes mellitus with other specified complication E11.69 ; Tobacco abuse Z72.0 and Morbid (severe) obesity due to excess calories E66.01 [facility] [place] [address] [facility] [id number] [address] [place] [phone] 30 Oct, 2019 [facility] [place] [address] [facility] [id number] [address] [place] [address] 29 Oct, 2019 [facility] [place] [address] [facility] [id number] [address] [place] [phone] 27 Oct, 2019 [facility] [place] [address] [facility] [id number] [address] [place] [phone] 25 Oct, 2019 Type II diabetes mellitus E1 1.9 [facility] [address] [facility] [id number] [phone] 14 Oct, 2019 [facility], [place] [address] [facility] [id number] [address] [place] [id number] 19 Sep, 2019 [facility] [place] [address] [facility] [id number] [address] [place] [id number] 16 Sep, 2019 COPD (chronic obstructive pu lmonary disease) with emphysema J43.9 [facility] [place] [address] [facility] [id number] [address] [place] [phone] 02 Sep, 2019 [facility] [place] [address] [facility] [id number] [address] [place] [phone] 07 Aug, 2019 [facility] [address] [facility] [id number] [place] [phone] 06 Aug, 2019 Essential hypertension I10 [facility] [address] [facility] [id number] [address] [place] [address] Jul, Parotiditis K11.20 [facility], [place] [address] [facility] [id number] [address] [place] [phone] Jul, [facility] [place] [address] [facility] [id number] [address] [place] [phone] Jul, Type II diabetes mellitus E1 1.9 [facility] [place] [address] [facility] [id number] [address] [place] [phone] 13 Jul, 2019 [facility] [place] [address] [facility] [id number] [address] [place] [phone] Jul, Pneumonia due to infectious organism, unspecified laterality, unspecified part of lung J18.9 ; On home oxygen therapy Z99.81 ; Type II diabetes mellitus E11.9 ; Tobacco use disorder F17.200 and Encounter for tobacco use cessation counseling Z71.6 [facility], [place] [address] [facility] [id number] [address] [place] [id number] 14 Apr, 2019 [facility] [address] [facility] [id number] [address] [place] [phone] 30 Mar, 2019 Acute non-recurrent frontal sinusitis J01.10 [facility], [place] [address] [facility] [id number] [address] [place] [id number] 17 Mar, 2019 Type 2 diabetes mellitus wit hout complications E11.9 [facility], [place] [address] [facility] [id number] [address] [place] [address] Mar, Type 2 diabetes mellitus wit hout complications E11.9 ; Essential hypertension I10 and Chronic bronchitis, unspecified chronic bronchitis type J42 [facility] [place] [address] [facility] [id number] [address] [place] [id number] Feb, [facility], [place] [address] [facility] [id number] [address] [place] [id number] Dec, [facility], [place] [address] [facility] [id number] [address] [place] [phone] Dec, [facility] [place] [address] [facility] [id number] [address] [place] [address] November, [facility] [address] [place] [address] November, [address] [place] [address] November, [address] [id number] [address] November, Allergic rhinitis J30.9 [facility], [place] [address] [facility] [id number] [address] [place] [address] November, [facility] [place] [address] [id number] [address] [place] [phone] November, [facility] [place] [address] [id number] [address] [place] [address] November, [facility] [place] [address] [id number] [address] [place] [phone] Oct, [facility] [place] [address] [id number] [address] [place] [phone] Oct, Essential hypertension I10 [facility] [place] [address] [id number] [address] [place] [phone] Oct, [facility] [place] [address] [id number] [address] [place] [address] Oct, [facility] [place] [address] [id number] [address] [place] [address] Oct, [facility] [place] [address] [id number] [address] [place] [address] Oct, [facility] [place] [address] [id number] [address] [place] [phone] Oct, [facility] [address] [facility] [id number] [address] [place] [address] Oct, Shortness of breath R06.02 a nd Oxygen decrease R09.02 [facility], [place] [address] [facility] [id number] [address] [place] [phone] Oct, [facility] [place] [address] [id number] [address] [place] [address] Sep, COPD (chronic obstructive pu lmonary disease) with emphysema J43.9 ; On home oxygen therapy Z99.81 and Hypothyroidism E03.9 [facility], [place] [address] [id number] [address] [place] [address] Sep, [facility], [place] [address] [facility] [id number] [address] [place] [address] Sep, [facility] [place] [address] [facility] [id number] [address] [place] [address] Sep, Acute on chronic respiratory failure with hypoxia J96.21 ; Hypothyroidism E03.9 ; 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 ; Essential hypertension I10 ; Type 2 diabetes mellitus with other specified complication E11.69 ; jail current use of insulin Z79.4 and Hyperlipidemia LDL goal <70 E78.5 [facility], [place] [address] [facility] [id number] [address] [place] [address] Sep, Allergic rhinitis J30.9 [facility], [place] [address] [facility] [id number] [address] [place] [address] Aug, Allergic rhinitis J30.9 [facility], [place] [address] [facility] [id number] [address] [place] [address] Aug, [facility], [place] [address] [facility] [id number] [address] [place] [phone] Aug, [facility], [place] [address] [facility] [id number] [address] [place] [phone] Aug, [facility], [place] [address] [facility] [id number] [address] [place] [address] Jul, [facility], [place] [address] [facility] [id number] [address] [place] [phone] Jul, Type 2 diabetes mellitus wit h other specified complication E11.69 [facility], [place] [address] [facility] [id number] [address] [place] [address] Jun, [facility] [place] [address] [facility] [id number] [address] [place] [address] May, Hyperlipidemia LDL goal <70 E78.5 ; 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 and Encounter for immunization Z23 [facility], [place] [address] [facility] [id number] [address] [place] [address] May, [facility] [address] [facility] [id number] [address] [place] [address] May, Acute upper respiratory infe ction J06.9 [facility], [place] [address] [facility] [id number] [address] [place] [address] May, Essential hypertension I10 [facility] [place] [address] [facility] [id number] [address] [place] [address] May, Essential hypertension I10 [facility], [place] [id number] [place] [address] Apr, Essential hypertension I10 [facility], [place] [id number] [place] [address] Apr, [address] [address] Apr, COPD (chronic obstructive pu lmonary disease) with emphysema J43.9 [place] [address] [address] Apr, [facility], [place] [address] [id number] [address] [place] [address] Mar, [place] [id number] [place] [address] Feb, Type 2 diabetes mellitus wit h other specified complication E11.69 ; 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 ; Essential hypertension I10 ; Hyperlipidemia LDL goal <70 E78.5 ; 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 ; Microcytic anemia D50.9 ; Morbid (severe) obesity due to excess calories E66.01 ; Body mass index (BMI) of 39.0-39.9 in adult Z68.39 ; Hypothyroidism E03.9 and Seasonal allergic rhinitis due to pollen J30.1 [place] [id number] [place] [address] November, Pneumonia of right lower lob e [...] without esophagitis K21.9 and Allergic rhinitis J30.9 [facility], [place] [address] [facility] [id number] [address] [place] [address] November, [facility], [place] [address] [facility] [id number] [address] [place] [address] Sep, [facility] [place] [address] [facility] [id number] [address] [place] [address] Sep, [facility] [place] [address] [id number] [address] [place] [address] Sep, [facility], [place] [address] [id number] [address] [place] [address] Sep, [facility] [address] [facility] [id number] [address] [place] [address] Jul, Encounter for immunization Z 23 [facility] [address] [id number] [address] [place] [phone] Jun, Subacute maxillary sinusitis J01.00 [facility], [place] [address] [id number] [address] [place] [address] May, [facility], [place] [address] [id number] [address] [place] [address] May, [facility], [place] [address] [id number] [address] [place] [phone] May, Type II diabetes mellitus E1 1.9 ; Hypothyroidism E03.9 ; 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 ; Cough R05 ; COPD with exacerbation J44.1 and Pneumonia of right lower lobe due to infectious organism J18.1 [facility], [place] [address] [id number] [address] [place] [address] Mar, Hyperlipidemia, unspecified hyperlipidemia type E78.5 [facility], [place] [address] [id number] [address] [place] [address] Mar, Hypothyroidism E03.9 and Hyp erlipidemia, unspecified hyperlipidemia type E78.5 [facility], [place] [address] [id number] [address] [place] [address] Feb, Type II diabetes mellitus E1 1.9 [...] full remission F33.42 and Urinary incontinence R32 [facility] [place] [address] [address] Jan, [facility], [place] [address] [address] Jan, [facility], [place] [address] [address] November, [facility], [place] [address] [address] Sep, Type II diabetes mellitus E1 1.9 [...] and Tinea pedis of both feet B35.3 [facility] [place] [address] [id number] [address] [place] [address] Jun, [facility] [id number] [address] [place] [address] Jun, Acute upper respiratory infe ction, unspecified J06.9 and Other viral agents as the cause of diseases classified elsewhere B97.[address] [address] May, [address] [address] May, Type 2 diabetes mellitus wit h [...] thrush B37.0 and Encounter for immunization Z23 [address] [address] Apr, [address] [address] Apr, [address] [address] Mar, [address] [address] Dec, [address] [address] Dec, [address] [address] Dec, Encounter for well woman exa m with routine gynecological exam Z01.419 ; Encounter for screening for malignant neoplasm of cervix Z12.4 ; Screening mammogram, encounter for Z12.31 ; Encounter for screening breast examination Z12.39 ; On home oxygen therapy Z99.81 ; 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 ; Heat rash L74.0 ; Type II diabetes mellitus E11.9 and Hypothyroidism E03.[address] [address] November, [facility] [place] [address] [address] November, Type II diabetes mellitus E1 1.9 ; Allergic rhinitis J30.9 ; Hypothyroidism E03.9 ; Obesity due to excess calories E66.09 ; Urinary incontinence R32 ; Gastroesophageal reflux disease without esophagitis K21.9 and Essential hypertension I10 [facility] [place] [address] [address] Oct, [facility] [place] [address] [address] Sep, [facility] [place] [address] [address] Sep, [facility] [address] [address] Aug, Acute maxillary sinusitis J0 1.00 [facility] [place] [address] [address] Aug, [facility] [place] [address] [address] Aug, [facility] [place] [address] [address] 16 Aug, 2015 Type II diabetes mellitus E1 1.9 [place] [address] [address] 05 Aug, 2015 Type II diabetes mellitus E1 1.9 ; Hypothyroidism E03.9 ; 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 ; Obesity due to excess calories E66.09 ; Urinary incontinence R32 ; Anemia D64.9 ; Microcytic anemia D50.9 and Allergic rhinitis J30.9 [facility] [place] [address] [address] 11 May, 2015 Upper respiratory symptom R0 9.89 [place] [address] [address] May, Oral thrush B37.0 [facility] [place] [address] [facility] [id number] [address] [place] [address] Apr, Hypothyroidism E03.9 and Harish rocytic anemia D50.9 [facility] [place] [address] [facility] [id number] [address] [place] [address] Apr, Encounter for long-term curr ent use of medication Z79.899 ; Hypothyroidism E03.9 ; Microcytic anemia D50.9 ; Type 2 diabetes mellitus without complication E11.9 ; Essential hypertension I10 and Mixed incontinence N39.46 [facility] [place] [address] [address] Apr, [facility] [place] [address] [place] [id number] [address] [place] [address] Mar, [facility] [place] [address] [address] Mar, [facility] [place] [address] [address] Mar, [facility] [place] [address] [address] Mar, [facility] [place] [address] [place] [id number] [place] [address] Mar, [facility] [place] [address] [address] Mar, [facility] [place] [address] [address] [id number] [address] [place] [address] Mar, [facility] [place] [address] [place] [id number] [place] [address] Feb, Cough 786.2 ; Wheezing 786.0 7 ; Hypothyroidism 244.9 and Encounter for long-term current use of medication V58.69 [facility] [place] [address] [place] [id number] [address] [place] [address] Feb, Diabetes type 2, uncontrolle d 250.02 ; Depression 311 ; Encounter for long-term current use of medication V58.69 and Hypothyroidism 244.9 [facility] [place] [address] [id number] [address] [place] [address] Feb, [facility] [place] [address] [id number] [address] [place] [address] Jan, [facility] [place] [address] [id number] [address] [place] [address] Oct, [facility] [place] [address] [id number] [address] [place] [address] Oct, [facility] [place] [address] [id number] [address] [place] [phone] Oct, [facility] [place] [address] [facility] [id number] [address] [place] [address] Sep, [facility] [place] [address] [id number] [address] [place] [address] Sep, [facility] [place] [address] [id number] [address] [place] [address] Sep, [facility] [place] [address] [id number] [address] [place] [address] Aug, [facility] [place] [address] [facility] [id number] [address] [place] [address] Aug, [facility] [place] [address] [id number] [address] [place] [address] Jul, [facility] [place] [address] [id number] [address] [place] [address] Jul, [facility] [place] [address] [id number] [address] [place] [address] Jul, [facility] [place] [address] [id number] [address] [place] [address] Jul, [facility] [place] [address] [id number] [address] [place] [address] Jul, [facility] [address] [id number] [address] [place] [address], [place] [address] Jul, [facility] [address] [id number] [address] [place] [address], [place] [address] Jul, [facility] [address] [id number] [address] [place] [address], [place] [address] Jul, [facility] [address] [id number] [address] [place] [address], [place] [address] Jun, [facility] [address] [id number] [address] [place] [address], [place] [address] Jun, [facility] [address] [id number] [address] [place] [address], [place] [address] May, [facility] [address] [id number] [address] [place] [address], [place] [address] May, [facility] [address] [id number] [address] [place] [address], [place] [address] May, [facility] [address] [id number] [address] [place] [address], [place] [address] Apr, [facility] [address] [id number] [address] [place] [address], [place] [address] Apr, [facility] [address] [id number] [address] [place] [address], [place] [address] Apr, [facility] [address] [id number] [address] [place] [id number] Apr, [facility] [address] [id number] [address] [place] [address], [place] [address] Apr, [facility] [address] [id number] [address] [place] [address], [place] [address] Apr, [facility] [address] [id number] [address] [place] [address], [place] [address] Mar, [facility] [address] [id number] [address] [place] [address], [place] [address] 22 Mar, 2014 [facility] [address] [id number] [address] [place] [address], [place] [address] 19 Mar, 2014 [facility] [address] [id number] [address] [place] [address], [place] [address] 19 Mar, 2014 [facility] [address] [id number] [address] [place] [address], [place] [address] 19 Sep, 2013 [facility] [address] [id number] [address] [place] [address], [place] [address] Sep, [facility] [address] [id number] [address] [place] [address], [place] [address] Sep, [facility] [address] [id number] [address] [place] [address], [place] [address] Sep, [facility] [address] [id number] [address] [place] [address], [place] [address] Aug, [facility] [address] [id number] [address] [place] [address], [place] [address] Aug, [facility] [address] [id number] [address] [place] [address], [place] [address] Aug, [facility] [facility] [address] [id number] [address] [place] [address], [place] [address] Aug, [facility] [address] [id number] [address] [place] [address], [place] [address] Aug, [facility] [address] [id number] [address] [place] [address], [place] [address] Aug, [facility] [address] [id number] [address] [place] [address], [place] [address] Jul, [facility] [address] [id number] [address] [place] [address], [place] [address] Jul, [facility] [address] [id number] [address] [place] [address], [place] [address] Jul, [facility] [address] [id number] [address] [place] [address], [place] [address] Jul, [facility] [address] [id number] [address] [place] [address], [place] [address] Jun, [facility] [address] [id number] [address] [place] [address], [place] [address] Jun, [facility] [address] [id number] [address] [place] [address], [place] [address] May, [facility] [address] [id number] [address] [place] [address], [place] [address] May, [facility] [address] [id number] [address] [place] [address], [place] [address] Apr, [facility] [address] [id number] [address] [place] [address], [place] [address] Apr, [facility] [address] [id number] [address] [place] [address], [place] [address] Apr, [facility] [address] [id number] [address] [place] [address], [place] [address] Mar, [facility] [address] [id number] [address] [place] [address], [place] [address] Mar, [facility] [address] [id number] [address] [place] [address], [place] [address] Mar, [facility] [address] [id number] [address] [place] [address], [place] [address] Mar, [facility] [address] [id number] [address] [place] [address], [place] [address] Feb, [facility] [address] [id number] [address] [place] [address], [place] [address] Jan, [facility] [address] [id number] [address] [place] [address], [place] [address] Jan, [facility] [address] [id number] [address] [place] [address] [place] [address] Jan, [facility] [address] [id number] [address] [place] [address], [place] [address] Jan, [facility] [address] [id number] [address] [place] [address], [place] [address] Dec, [facility] [address] [id number] [address] [place] [address], [place] [address] Dec, [facility] [address] [id number] [address] [place] [address], [place] [address] Dec, [facility] [address] [id number] [address] [place] [address], [place] [address] Dec, [facility] [address] [id number] [address] [place] [address], [place] [address] Dec, [facility] [address] [id number] [address] [place] [address], [place] [address] Dec, [facility] [address] [id number] [address] [place] [address], [place] [address] November, [facility] [address] [id number] [address] [place] [address], [place] [address] November, [facility] [address] [id number] [address] [place] [address], [place] [address] November, [facility] [address] [id number] [address] [place] [address], [place] [address] Oct, [facility] [address] [id number] [address] [place] [address], [place] [address] Oct, [facility] [address] [id number] [address] [place] [address], [place] [address] Sep, [facility] [address] [id number] [address] [place] [address], [place] [address] Sep, [facility] [address] [id number] [address] [place] [address], [place] [address] Sep, [facility] [address] [id number] [address] [place] [address], [place] [address] Sep, [facility] [address] [id number] [address] [place] [address], [place] [address] Sep, [facility] [address] [id number] [address] [place] [address], [place] [address] Aug, [facility] [address] [id number] [address] [place] [address], [place] [address] Aug, [facility] [address] [id number] [address] [place] [address], [place] [address] Aug, [facility] [address] [id number] [address] [place] [address], [place] [address] Aug, [facility] [address] [id number] [address] [place] [address], [place] [address] Aug, [facility] [address] [id number] [address] [place] [address], [place] [address] Jul, [facility] [address] [id number] [address] [place] [address], [place] [address] Jul, [facility] [address] [id number] [address] [place] [address], [place] [address] Jun, [facility] [address] [id number] [address] [place] [address], [place] [address] Jun, [facility] [address] [id number] [address] [place] [address], [place] [address] 18 Jun, 2012 [facility] [address] [id number] [address] [place] [address], [place] [address] 18 Jun, 2012 [facility] [address] [id number] [address] [place] [address], [place] [address] Jun, [facility] [address] [id number] [address] [place] [address], [place] [address] Jun, [facility] [address] [id number] [address] [place] [address] Jun, [facility] [address] [id number] [address] [place] [address], [place] [address] Jun, [facility] [address] [id number] [address] [place] [address], [place] [address] Jun, [facility] [address] [id number] [address] [place] [address], [place] [address] May, [facility] [address] [id number] [address] [place] [address], [place] [address] May, [facility] [address] [id number] [address] [place] [address], [place] [address] May, [facility] [address] [id number] [address] [place] [address], [place] [address] May, [facility] [address] [id number] [address] [place] [address], [place] [address] May, [facility] [address] [id number] [address] [place] [address], [place] [address] May, [facility] [address] [id number] [address] [place] [address], [place] [address] May, [facility] [address] [id number] [address] [place] [address], [place] [address] Apr, [facility] [address] [id number] [address] [place] [address], [place] [address] Mar, [facility] [address] [id number] [address] [place] [address] Mar, [facility] [address] [id number] [address] [place] [address], [place] [address] Feb, [facility] [address] [id number] [address] [place] [address], [place] [address] Feb, [facility] [address] [id number] [address] [place] [address], [place] [address] Feb, [facility] [address] [id number] [address] [place] [address], [place] [address] Feb, [facility] [address] [id number] [address] [place] [address], [place] [address] Jan, [facility] [address] [id number] [address] [place] [address], [place] [address] Jan, [facility] [address] [id number] [address] [place] [address], [place] [address] Jan, [facility] [address] [id number] [address] [place] [address], [place] [address] Jan, [facility] [address] [id number] [address] [place] [address], [place] [address] Dec, [facility] [address] [id number] [address] [place] [address], [place] [address] Dec, [facility] [address] [id number] [address] [place] [address], [place] [address] Dec, [facility] [address] [id number] [address] [place] [address], [place] [address] Dec, [facility] [address] [id number] [address] [place] [address], [place] [address] Dec, [facility] [address] [id number] [address] [place] [address], [place] [address] Sep, [facility] [address] [id number] [address] [place] [address], [place] [address] Aug, [facility] [address] [id number] [address] [place] [address], [place] [address] Jul, [facility] [address] [id number] [address] [place] [address], [place] [address] Jun, [facility] [address] [id number] [address] [place] [address], [place] [address] Jun, [facility] [address] [id number] [address] [place] [address], [place] [address] Jun, [facility] [place] [address] [facility] [id number] [address] [place] [address] Jun, [facility] [place] [address] [facility] [id number] [address] [place] [address] May, [facility] [place] [address] [facility] [id number] [address] [place] [address] May, [facility] [place] [address] [facility] [id number] [address] [place] [address] Apr, [facility] [place] [address] [facility] [id number] [address] [place] [address] Jun, [facility] [place] [address] [facility] [id number] [address] [place] [address] Apr, IMMUNIZATIONS No Known Immunizations SOCIAL HISTORY [...] 11/2017 Hospitalization History pneumonia 10/07 Hospitalization History [facility] 03/09/19 Hospitalization History via [facility]. 07/17/19
--- NOTE | 2019-12-24 00:30 | ED Respiratory ---
General Chief Complaint: Respiratory Problems Stated Complaint: SOA Nursing Triage Note: PATIENT ARRIVED VIA EMS ON 10L NON-REBREATHER AND REPORTED THAT PATIENT WEARS 4L NC NORMALLY. PATIENT IS LIMITED ON HER RESPONSES BUT STATED SHE BECAME SOA EARLIER TODAY AND THAT IT HAS GOTTEN WORSE THE DAY WENT ON. Source: patient, EMS Exam Limitations: no limitations History of Present Illness Date Seen by Provider: Dec 24, 2019 Time Seen by Provider: 22:15 Initial Comments This 54-year-old woman with COPD presents to emergency room with shortness of breath throughout the day. She uses oxygen at home at 4 L by nasal cannula. She tried nebulizer treatments at home but that did not resolve her symptoms. She denies any fever or cough. Air movement is reduced with tight wheezing on exam. Patient answers questions appropriately and is responsive but seems very somnolent. I discussed the situation with patient's daughter later in the visit. She states patient has been very somnolent today and has made disturbing comments about possibly dying. Patient's daughter is unaware of any exposures at risk for lentz virus or any symptoms of recent acute illness. Patient denies any symptoms other than shortness of breath and implies this is typically how she is with a COPD exacerbation. Patient's daughter reports this is how she seems when her carbon dioxide is elevated. Daughter does not believe there is any potential for substance abuse. Allergies and Home Medications Allergies Coded Allergies: NKANo Known Allergies (Unverified Allergy, Mild, 05/01/09) Home Medications Acetaminophen 500 Mg Tablet, 1,500 MG PO Q8H PRN for PAIN-MILD (1-4), (Reported) Albuterol Sulfate 1 Puff Puff, 2 PUFF INH Q6H PRN for SHORTNESS OF BREATH, (Reported) Albuterol Sulfate 2.5 Mg/3 Ml Vial.neb, 3 ML NEB Q4-6 H PRN for SHORTNESS OF BREATH, (Reported) Aspirin 81 Mg Tab.chew, 81 MG PO DAILY, (Reported) Atorvastatin Calcium 10 Mg Tablet, 10 MG PO DAILY, (Reported) Cefuroxime Axetil 500 Mg Tablet, 500 MG PO BID Prescribed by: JEFF DURBIN on 09/18/19 1108 Famotidine 20 Mg Tablet, 20 MG PO BID, (Reported) Fluticasone Propion/Salmeterol 1 Each Blst.w.dev, 1 PUFF INH BID, (Reported) Fluticasone Propionate 16 Gm [place].susp, 2 SPRAY NS DAILY PRN for CONGESTION, (Reported) Furosemide 40 Mg Tablet, 40 MG PO DAILY, (Reported) Glipizide 5 Mg Tablet, 10 MG PO DAILY, (Reported) TAKES 2 (5MG) TABS Glipizide 5 Mg Tablet, 5 MG PO HS, (Reported) Levothyroxine Sodium 175 Mcg Tablet, 175 MCG PO DAILY, (Reported) Loratadine 10 Mg Tablet, 10 MG PO DAILY PRN for AALLERGY SYMPTOMS, (Reported) Metformin HCl 500 Mg Tablet, 500 MG PO BID, (Reported) Metoprolol Tartrate 25 Mg Tablet, 25 MG PO BID Prescribed by: JEFF DURBIN on 09/18/19 1108 Montelukast Sodium 10 Mg Tablet, 10 MG PO HS, (Reported) Marcell-3/Dha/Epa/Fish Oil 1 Each Capsule, 2,000 MG PO DAILY, (Reported) Paroxetine HCl 40 Mg Tablet, 40 MG PO 1500, (Reported) Potassium Chloride 10 Meq Tab.er.prt, 10 MEQ PO DAILY, (Reported) Tiotropium [place] 1 Inh Aerp, 1 CAP INH 1300 PRN for SHORTNESS OF BREATH, (Reported) Patient Home Medication List Home Medication List Reviewed: Yes Review of Systems Review of Systems Constitutional: no symptoms reported EENTM: no symptoms reported Respiratory: see HPI Cardiovascular: no symptoms reported Gastrointestinal: no symptoms reported Genitourinary: no symptoms reported : No Musculoskeletal: no symptoms reported Skin: no symptoms reported Psychiatric/Neurological: See HPI Hematologic/Lymphatic: No Symptoms Reported Immunological/Allergic: no symptoms reported Past Mdwlvbv-Bzvgpw-Fiyqgo Hx Past Med/Social Hx: Reviewed Nursing Past Med/Soc Hx Patient Social History Type Used: Cigarettes 2nd Hand Smoke Exposure: Yes Recent Foreign Travel: No Contact w/Someone Who Travel: No Recent Infectious Disease Expo: No Recent Hopitalizations: No Immunizations Up To Date Tetanus Booster (TDap): Unknown PED Vaccines UTD: No Date of Pneumonia Vaccine: Aug 22, 2018 Date of Influenza Vaccine: Jun 12, 2019 Seasonal Allergies Seasonal Allergies: Yes Past Medical History Surgeries: Yes Respiratory: Yes (O2 DEPENDENT AT 4L/NC) Pneumonia, COPD Currently Using CPAP: No Currently Using BIPAP: No Cardiac: Yes High Cholesterol, Hypertension Neurological: No 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 Disorders: Denies CATEGORY PLANNER History: Menopausal Sexually Transmitted Disease: No HIV/AIDS: No Genitourinary: No Gastrointestinal: No Musculoskeletal: No Endocrine: Yes Hypothyroidsim, Diabetes, Non-Insulin dep HEENT: No Loss of Vision: Denies Hearing Impairment: Denies Cancer: No Psychosocial: Yes Anxiety, Depression Integumentary: No Blood Disorders: No Adverse Reaction/Blood Tranf: No Family Medical History Reviewed Nursing Family Hx Cardiovascular disease 19 MOTHER, Onset:Unknown Diabetes mellitus 19 MOTHER, Onset:Unknown Diabetes Physical Exam Vital Signs - First Documented 12/23/19 12/23/19 22:04 22:20 Temp 36.6 Pulse 90 Resp 28 Pulse Ox 96 O2 Delivery Non Rebreather FiO2 80 Capillary Refill : Less Than 3 Seconds Height: 5'6.00" Weight: 212lbs. 1.0oz. 96.826596mm; 33.00 BMI Method:Estimated General Appearance: WD/WN, no apparent distress, other (somnolent) HEENT: PERRL/EOMI, normal ENT inspection Neck: normal inspection Respiratory: no respiratory distress, no accessory muscle use, decreased breath sounds, wheezing Cardiovascular: regular rate, rhythm, no edema, no murmur Gastrointestinal: normal bowel sounds, non tender, soft Extremities: normal inspection, no pedal edema Neurologic/Psychiatric: tie up worker II-XII nml as tested, other (somnolent but easily aroused. Moves all 4 extremities equally. Answers questions appropriately but speaks minimally. Oriented to person and place but not the month.) Skin: normal color, warm/dry Focused Exam Lactate Level 12/23/19 22:45: Lactic Acid Level 0.86 Lactic Acid Level Laboratory Tests Test 12/23/19 22:45 Lactic Acid Level 0.86 MMOL/L (0.50-2.00) Procedures/Interventions Date of ETT Placement: Sep 11, 2019 Time of ETT Placement: 2300 Progress/Results/Core Measures Suspected Sepsis Recent Fever Within 48 Hours: No Infection Criteria Present: Suspected New Infection New/Unexplained Altered Menta: Yes Sepsis Screen: No Definite Risk SIRS Temperature: Pulse: 90 Respiratory Rate: 28 Laboratory Tests 12/23/19 22:45: White Blood Count 7.9 Blood Pressure / Mean: 12/23/19 22:45: Lactic Acid Level 0.86 Laboratory Tests 6/3/20 22:45: Platelet Count 165 12/23/19 23:04: Creatinine 0.80, INR Comment 0.9, Total Bilirubin 0.3 Results/Orders Lab Results Laboratory Tests Test 12/23/19 22:45 12/23/19 23:04 12/23/19 23:10 12/23/19 23:22 Range/Units White Blood Count 7.9 4.3-11.0 10^3/uL Red Blood Count 4.63 4.35-5.85 10^6/uL Hemoglobin 13.2 11.5-16.0 G/DL Hematocrit 45 35-52 % Mean Corpuscular Volume 97 80-99 FL Mean Corpuscular Hemoglobin 29 25-34 PG Mean Corpuscular Hemoglobin Concent 30 L 32-36 G/DL Red Cell Distribution Width 15.2 H 10.0-14.5 % Platelet Count 165 130-400 10^3/uL Mean Platelet Volume 9.4 7.4-10.4 FL Neutrophils (%) (Auto) 86 H 42-75 % Lymphocytes (%) (Auto) 10 L 12-44 % Monocytes (%) (Auto) 4 0-12 % Eosinophils (%) (Auto) 0 0-10 % Basophils (%) (Auto) 0 0-10 % Neutrophils # (Auto) 6.8 1.8-7.8 X 10^3 Lymphocytes # (Auto) 0.8 L 1.0-4.0 X 10^3 Monocytes # (Auto) 0.3 0.0-1.0 X 10^3 Eosinophils # (Auto) 0.0 0.0-0.3 10^3/uL Basophils # (Auto) 0.0 0.0-0.1 10^3/uL Lactic Acid Level 0.86 0.50-2.00 MMOL/L B-Type Natriuretic Peptide 95.1 <100.0 PG/ML Prothrombin Time 13.0 12.2-14.7 SEC INR Comment 0.9 0.8-1.4 Activated Partial Thromboplast Time 25 24-35 SEC Sodium Level 140 135-145 MMOL/L Potassium Level 5.1 H 3.6-5.0 MMOL/L Chloride Level 91 L 98-107 MMOL/L Carbon Dioxide Level 42 H 21-32 MMOL/L Anion Gap 7 5-14 MMOL/L Blood Urea Nitrogen 9 7-18 MG/DL Creatinine 0.80 0.60-1.30 MG/DL Estimat Glomerular Filtration Rate > 60 BUN/Creatinine Ratio 11 Glucose Level 276 H 70-105 MG/DL Calcium Level 9.9 8.5-10.1 MG/DL Corrected Calcium 10.2 H 8.5-10.1 MG/DL Total Bilirubin 0.3 0.1-1.0 MG/DL Aspartate Amino Transf (AST/SGOT) 12 5-34 U/L Alanine Aminotransferase (ALT/SGPT) 9 0-55 U/L Alkaline Phosphatase 143 H 40-136 U/L C-Reactive Protein High Sensitivity 2.98 H 0.00-0.50 MG/DL Total Protein 8.0 6.4-8.2 GM/DL Albumin 3.6 3.2-4.5 GM/DL Blood Gas Puncture Site RIGHT WRIST Blood Gas Patient Temperature 36.6 Arterial Blood pH 7.52 H 7.37-7.43 Arterial Blood Partial Pressure CO2 49 H 35-45 MMHG Arterial Blood Partial Pressure O2 143 H 79-93 MMHG Arterial Blood HCO3 39 H 23-27 MMOL/L Arterial Blood Total CO2 40.7 H 21.0-31.0 MMOL/L Arterial Blood Oxygen Saturation 99 94-100 % Arterial Blood Base Excess 14.9 H -2.5-2.5 MMOL/L Da Test YES-POS Blood Gas Ventilator Setting NO Blood Gas Inspired Oxygen BIPAP 80% Urine Color YELLOW Urine Clarity SL CLOUDY Urine pH 6.0 5-9 Urine Specific Mcewen >=1.030 1.016-1.022 Urine Protein 3+ H NEGATIVE Urine Glucose (UA) TRACE H NEGATIVE Urine Ketones NEGATIVE NEGATIVE Urine Nitrite NEGATIVE NEGATIVE Urine Bilirubin NEGATIVE NEGATIVE Urine Urobilinogen 1.0 < = 1.0 MG/DL Urine Leukocyte Esterase NEGATIVE NEGATIVE Urine RBC (Auto) TRACE-L NEGATIVE Urine RBC RARE /HPF Urine WBC RARE /HPF Urine Squamous Epithelial Cells 5-10 /HPF Urine Crystals NONE /LPF Urine Bacteria FEW H /HPF Urine Casts PRESENT /LPF Urine Hyaline Casts 10-25 H /LPF Urine Mucus MODERATE H /LPF Urine Culture Indicated YES Test 12/23/19 23:30 Range/Units Urine Opiates Screen NEGATIVE NEGATIVE Urine Oxycodone Screen NEGATIVE NEGATIVE Urine Methadone Screen NEGATIVE NEGATIVE Urine Propoxyphene Screen NEGATIVE NEGATIVE Urine Barbiturates Screen NEGATIVE NEGATIVE Ur Tricyclic Antidepressants Screen NEGATIVE NEGATIVE Urine Phencyclidine Screen NEGATIVE NEGATIVE Urine Amphetamines Screen NEGATIVE NEGATIVE Urine Methamphetamines Screen NEGATIVE NEGATIVE Urine Benzodiazepines Screen NEGATIVE NEGATIVE Urine Cocaine Screen NEGATIVE NEGATIVE Urine Cannabinoids Screen NEGATIVE NEGATIVE My Orders Orders - REY CAMPBELL MD Cbc With Automated Diff (12/23/19 22:18) Comprehensive Metabolic Panel (12/23/19 22:18) Blood Culture (12/23/19 22:18) Sputum Culture (12/23/19 22:18) Urinalysis (12/23/19 22:18) Urine Culture (12/23/19 22:18) Protime With Inr (12/23/19 22:18) Partial Thromboplastin Time (12/23/19 22:18) Chest 1 View, Ap/Pa Only (12/23/19 22:18) Ed Iv/Invasive Line Start (12/23/19 22:18) Ed Iv/Invasive Line Start (12/23/19 22:18) Vital Signs Adult Sepsis Patie Q15M (12/23/19 22:18) O2 (12/23/19 22:18) Remove Rings In Anticipation O (12/23/19 22:18) Lactic Acid Analyzer (12/23/19 22:18) BNP (12/23/19 22:18) Hs C Reactive Protein (12/23/19 22:18) Albuterol Pre-Mix Nebs (Rt) (Proventil (12/23/19 22:18) Albuterol/Ipra Inhalation Soln (Duoneb I (12/23/19 22:30) Svn Small Volume Nebulizer (12/23/19 22:18) Svn Small Volume Nebulizer (12/23/19 22:18) Arterial Blood Gas (12/23/19 22:18) Enriquez Cath (12/23/19 22:58) Arterial Blood Draw (12/23/19 ) Urine Culture (12/23/19 23:22) Drug Screen Stat (Urine) (12/23/19 23:40) Ns Iv 1000 Ml (Sodium Chloride 0.9%) (12/24/19 00:20) Methylprednisolone Sod Succ (Solu-Medrol (12/24/19 00:45) Medications Given in ED Current Medications Medications Dose Ordered Sig/Jeana Route Start Time Stop Time Status Last Admin Dose Admin Albuterol/ Ipratropium 3 ml ONCE ONCE INH 12/23/19 22:30 12/23/19 22:31 DC 12/23/19 22:25 3 ML Methylprednisolone Sodium Succinate 125 mg ONCE ONCE IVP 12/24/19 00:45 12/24/19 00:46 DC 12/24/19 00:49 125 MG Vital Signs/I&O 12/23/19 12/23/19 12/23/19 12/23/19 22:04 22:15 22:15 22:20 Temp 36.6 36.6 36.6 Pulse 90 93 93 Resp 28 22 22 B/P (MAP) 163/68 163/68 (99) Pulse Ox 96 98 98 97 O2 Delivery Non Rebreather Non Rebreather Non Rebreather NIV Bilevel O2 Flow Rate 10.00 10.00 FiO2 80 12/23/19 12/24/19 22:25 00:08 Pulse 89 Resp 22 Pulse Ox 97 O2 Flow Rate 80.00 60.00 Capillary Refill : Less Than 3 Seconds Progress Note : Progress Note Patient had very poor air movement upon assessment. She has a history of respiratory failure with intubation on recent admission. Aggressive intervention was felt necessary. An hour-long nebulizer treatment was ordered along with BiPAP therapy. Patient's respiratory status remained stable throughout her ER stay. She continued to be somnolent although appropriately responsive. No source of somnolence was identified and her workup. Solu-Medrol was also administered for further treatment of COPD exacerbation. ECG Initial ECG Impression Date: Dec 23, 2019 Initial ECG Impression Time: 22:05 Initial ECG Rate: 91 Initial ECG Rhythm: Normal Sinus Initial ECG Intervals: Normal Initial ECG Impression: Normal Comment Normal sinus rhythm with no ST elevation or depression. No abnormal intervals or axis deviation. Diagnostic Imaging Diagonstic Imaging: Xray Plain Films/CT/US/NM/MRI: chest Comments Chest x-ray viewed by me. Report not available. Compared with prior. No acute changes appreciated by the ER provider. Departure Communication (Admissions) Time/Spoke to Admitting Phy: 00:40 Dr. Lemus Impression Primary Impression: COPD exacerbation Additional Impression: Somnolence Disposition: ADMITTED INPATIENT Condition: Improved Admissions Decision to Admit Reason: Admit from ER (General) Decision to Admit/Date: Dec 24, 2019 Time/Decision to Admit Time: 22:18 Departure-Patient Inst. Referrals: [facility] (PCP/Family) Primary Care Physician REY CAMPBELL MD Dec 24, 2019 00:30
--- OUTSIDE RECORDS SUMMARY | 2019-12-24 00:30 | XMS REPORT ---
Author Author Don Jay Doctor Organization [facility] Address Unknown Phone Unavailable Care Team Providers Care Health Care Recruiter Name Role Phone Migration, Doctor Unavailable Unavailable PROBLEMS Type Condition ICD9-CM Code QPU87-DH Code Onset Dates Condition S tatus SNOMED Code Problem Allergic rhinitis J30.9 Active 61 888227 Problem Urinary incontinence R32 Active 636102084 Problem Microcytic anemia D50.9 Active 23 7643406 Problem Hypothyroidism E03.9 Active 31252 008 Problem Gastroesophageal reflux disease without esophagitis K21.9 Active 953008001 Problem Essential hypertension I10 Active 39023860 Problem Tobacco abuse Z72.0 Active 984560 000 Problem Chronic bronchitis, unspecified chronic bronchitis type J42 Active 20711396 Problem On home oxygen therapy Z99.81 Active 311894865276 Problem Parotiditis K11.20 Active 68098851 Problem 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 Active 28008203 Problem Type 2 diabetes mellitus with other specified complication E11.69 Active 94654265 Problem Hyperlipidemia LDL goal <70 E78.5 Ac tive 63884836 Problem Morbid (severe) obesity due to excess calories E66 .01 Active 186708274 Problem Seasonal allergic rhinitis due to pollen J30.1 Active 47898779 ALLERGIES No Information ENCOUNTERS Encounter Location Date Diagnosis [facility] [address] [facility] [id number] [address] [place] [address] 25 Oct, 2019 [facility] [address] [facility] [id number] [address] Oct, [facility] [address] [facility] [id number] [address] [place] [address] Sep, [facility] [address] [facility] [id number] [address] [place] [address] 16 Sep, 2019 COPD (chronic obstructive pu lmonary disease) with emphysema J43.9 [facility] [address] [facility] [id number] [address] [place] [address] Sep, [facility] [address] [facility] [id number] [address] [place] [address] Aug, [facility] [address] [facility] [id number] [place] [address] 06 Aug, 2019 Essential hypertension I10 [facility] [address] [facility] [id number] [address] [place] [address] Jul, Parotiditis K11.20 [facility] [address] [facility] [id number] [address] [place] [address] Jul, [facility] [address] [facility] [id number] [address] [place] [address] Jul, Type II diabetes mellitus E1 1.9 [place] [address] [place] [id number] [address] [place] [address] Jul, [facility] [address] [facility] [id number] [address] [place] [address] Jul, Pneumonia due to infectious organism, unspecified laterality, unspecified part of lung J18.9 ; On home oxygen therapy Z99.81 ; Type II diabetes mellitus E11.9 ; Tobacco use disorder F17.200 and Encounter for tobacco use cessation counseling Z71.6 [place] [address] [facility] [id number] [address] [place] [address] 14 Apr, 2019 [facility] [address] [facility] [id number] [address] [place] [address] 30 Mar, 2019 Acute non-recurrent frontal sinusitis J01.10 [facility] [address] [facility] [id number] [address] [place] [address] 17 Mar, 2019 Type 2 diabetes mellitus wit hout complications E11.9 [facility] [address] [facility] [id number] [address] [place] [address] 04 Mar, 2019 Type 2 diabetes mellitus wit hout complications E11.9 ; Essential hypertension I10 and Chronic bronchitis, unspecified chronic bronchitis type J42 [place] [address] [id number] [address] [place] [address] Feb, [facility] [address] [id number] [address] [place] [address] Dec, [facility] [address] [id number] [address] [place] [address] Dec, [facility] [address] [id number] [address] [place] [address] November, [facility] [address] [place] [address] [id number] [place] [address] November, [facility] [address] [place] [address] 340B [id number] [place] [address] November, [facility] [address] [place] [address] 340B [id number] [place] [address] November, Allergic rhinitis J30.9 [facility] [address] [id number] [address] [place] [address] November, [facility] [address] [id number] [address] [place] [address] November, [facility] [address] [id number] [address] [place] [address] November, [facility] [address] [id number] [address] [place] [address] Oct, [facility] [address] [id number] [address] [place] [address] Oct, Essential hypertension I10 [facility] [address] [id number] [address] [place] [address] Oct, [facility] [address] [id number] [address] [place] [address] Oct, [facility] [address] [id number] [address] [place] [address] Oct, [facility] [address] [id number] [address] [place] [address] Oct, [facility] [address] [facility] [id number] [address] [place] [address] Oct, [facility] [address] [facility] [id number] [address] [place] [address] Oct, Shortness of breath R06.02 a nd Oxygen decrease R09.02 [facility] [address] [facility] [id number] [address] [place] [address] Oct, [facility] [address] [facility] [id number] [address] [place] [address] Sep, COPD (chronic obstructive pu lmonary disease) with emphysema J43.9 ; On home oxygen therapy Z99.81 and Hypothyroidism E03.9 [facility] [address] [facility] [id number] [address] [place] [address] Sep, [facility] [address] [address] Sep, [facility] [address] [place] [id number] [address] [place] [address] Sep, Acute on chronic respiratory failure with hypoxia J96.21 ; Hypothyroidism E03.9 ; 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 ; Essential hypertension I10 ; Type 2 diabetes mellitus with other specified complication E11.69 ; 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 and Hyperlipidemia LDL goal <70 E78.5 [facility] [address] [facility] [id number] [address] [place] [address] Sep, Allergic rhinitis J30.9 [facility] [address] [facility] [id number] [address] [place] [address] Aug, Allergic rhinitis J30.9 [facility] [address] [place] [id number] [address] [place] [address] Aug, [facility] [address] [facility] [id number] [address] [place] [address] Aug, [facility] [address] [facility] [id number] [address] [place] [address] 04 Aug, 2018 [facility] [address] [facility] [id number] [address] [place] [address] Jul, [facility] [address] [facility] [id number] [address] [place] [address] Jul, Type 2 diabetes mellitus wit h other specified complication E11.69 [facility] [address] [facility] [id number] [address] [place] [address] Jun, [facility] [address] [facility] [id number] [address] [place] [address] May, Hyperlipidemia LDL goal <70 E78.5 ; 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 and Encounter for immunization Z23 [facility] [address] [facility] [id number] [address] [place] [address] May, [facility] [address] [facility] [id number] [address] [place] [address] May, Acute upper respiratory infe ction J06.9 [facility] [address] [facility] [id number] [address] [place] [address] May, Essential hypertension I10 [facility] [address] [facility] [id number] [address] [place] [address] May, Essential hypertension I10 [facility] [address] [facility] [id number] [address] [place] [address] Apr, Essential hypertension I10 [facility] [address] [facility] [id number] [address] [place] [address] Apr, [facility] [address] [facility] [id number] [address] [place] [address] Apr, COPD (chronic obstructive pu lmonary disease) with emphysema J43.9 [facility] [address] [facility] [id number] [address] [place] [address] Apr, [facility] [address] [place] [id number] [address] [place] [address] Mar, [facility] [address] [place] [address] Feb, Type 2 diabetes mellitus wit h other specified complication E11.69 ; 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9 and Allergic rhinitis J30.9 [facility] [address] [place] [id number] [address] [place] [address] November, [facility] [address] [place] [id number] [address] [place] [address] Sep, [facility] [address] [place] [address] Sep, [facility] [address] [place] [id number] [address] [place] [address] Sep, [facility] [address] [place] [id number] [address] [place] [address] Sep, [facility] [address] [address] Jul, Encounter for immunization Z 23 [facility] [address] [address] Jun, Subacute maxillary sinusitis J01.00 [facility] [address] [address] May, [place] [address] [address] May, [place] [address] [address] May, Type II diabetes mellitus E1 1.9 ; Hypothyroidism E03.9 ; 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 ; Cough R05 ; COPD with exacerbation J44.1 and Pneumonia of right lower lobe due to infectious organism J18.[address] [address] Mar, Hyperlipidemia, unspecified hyperlipidemia type E78.[address] [address] Mar, Hypothyroidism E03.9 and Hyp erlipidemia, unspecified hyperlipidemia type E78.[address] [address] Feb, Type II diabetes mellitus E1 1.9 [...] full remission F33.42 and Urinary incontinence R32 [place] [address] [address] Jan, [place] [address] [address] Jan, [address] [address] November, [address] [address] Sep, Type II diabetes mellitus E1 1.9 [...] and Tinea pedis of both feet B35.[address] [address] Jun, [facility] [address] [place] [address] Jun, Acute upper respiratory infe ction, unspecified J06.9 and Other viral agents as the cause of diseases classified elsewhere B97.[address] [address] May, [address] [address] May, Type 2 diabetes mellitus wit h [...] thrush B37.0 and Encounter for immunization Z23 [address] [address] Apr, [address] [address] Apr, [facility] [address] [facility] [id number] [address] [place] [address] Mar, [facility] [address] [facility] [id number] [address] [place] [address] Dec, [facility] [address] [facility] [id number] [address] [place] [address] Dec, [facility] [address] [place] [id number] [address] [place] [address] Dec, Encounter for well woman exa m with routine gynecological exam Z01.419 ; Encounter for screening for malignant neoplasm of cervix Z12.4 ; Screening mammogram, encounter for Z12.31 ; Encounter for screening breast examination Z12.39 ; On home oxygen therapy Z99.81 ; 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 ; Heat rash L74.0 ; Type II diabetes mellitus E11.9 and Hypothyroidism E03.9 [facility] [address] [place] [address] November, [facility] [address] [place] [id number] [address] [place] [address] November, Type II diabetes mellitus E1 1.9 ; Allergic rhinitis J30.9 ; Hypothyroidism E03.9 ; Obesity due to excess calories E66.09 ; Urinary incontinence R32 ; Gastroesophageal reflux disease without esophagitis K21.9 and Essential hypertension I10 [facility] [address] [place] [address] Oct, [facility] [address] [facility] [id number] [address] [place] [address] Sep, [facility] [address] [place] [id number] [address] [place] [address] Sep, [facility] [address] [facility] [id number] [address] [place] [address] Aug, Acute maxillary sinusitis J0 1.00 [facility] [address] [place] [id number] [address] [place] [address] Aug, [place] [address] [place] [id number] [address] [place] [address] Aug, [place] [address] [address] 16 Aug, 2015 Type II diabetes mellitus E1 1.9 [place] [address] [address] 05 Aug, 2015 Type II diabetes mellitus E1 1.9 ; Hypothyroidism E03.9 ; 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 ; Obesity due to excess calories E66.09 ; Urinary incontinence R32 ; Anemia D64.9 ; Microcytic anemia D50.9 and Allergic rhinitis J30.9 [place] [address] [address] May, Upper respiratory symptom R0 9.[address] [address] May, Oral thrush B37.[address] [address] Apr, Hypothyroidism E03.9 and Harish rocytic anemia D50.9 [place] [address] [place] [id number] [address] [place] [address] Apr, Encounter for long-term curr ent use of medication Z79.899 ; Hypothyroidism E03.9 ; Microcytic anemia D50.9 ; Type 2 diabetes mellitus without complication E11.9 ; Essential hypertension I10 and Mixed incontinence N39.46 [place] [address] [address] Apr, [place] [address] [address] Mar, [place] [address] [address] Mar, [place] [address] [place] [address] Mar, [facility] [address] [facility] [id number] [address] [place] [address] Mar, [facility] [address] [facility] [id number] [address] [place] [address] Mar, [facility] [address] [facility] [id number] [address] [place] [address] Mar, [facility] [address] [facility] [id number] [address] [place] [address] Mar, [facility] [address] [facility] [id number] [place] [address] Feb, Cough 786.2 ; Wheezing 786.0 7 ; Hypothyroidism 244.9 and Encounter for long-term current use of medication V58.69 [facility] [address] [address] Feb, Diabetes type 2, uncontrolle d 250.02 ; Depression 311 ; Encounter for long-term current use of medication V58.69 and Hypothyroidism 244.9 [facility] [address] [place] [id number] [address] [place] [address] Feb, [facility] [address] [facility] [id number] [address] [place] [address] Jan, [facility] [address] [place] [id number] [address] [place] [address] Oct, [facility] [address] [facility] [id number] [address] [place] [address] Oct, [facility] [address] [place] [id number] [address] [place] [address] Oct, [facility] [address] [place] [id number] [address] [place] [address] Sep, [facility] [address] [place] [id number] [address] [place] [address] Sep, [facility] [place] [facility] [address] [id number] [address] [place] [address], [place] [address] Sep, [facility] [address] [id number] [address] [place] [address], [place] [address] Aug, [facility] [address] [id number] [address] [place] [address], [place] [address] Aug, [facility] [address] [id number] [address] [place] [address], [place] [address] Jul, [facility] [address] [id number] [address] [place] [address], [place] [address] Jul, [facility] [address] [id number] [address] [place] [address], [place] [address] Jul, [facility] [address] [id number] [address] [place] [address], [place] [address] Jul, [facility] [address] [id number] [address] [place] [address], [place] [address] Jul, [facility] [address] [id number] [address] [place] [address], [place] [address] Jul, [facility] [address] [id number] [address] [place] [address], [place] [address] Jul, [facility] [address] [id number] [address] [place] [address], [place] [address] Jul, [facility] [address] [id number] [address] [place] [address], [place] [address] Jun, [facility] [address] [id number] [address] [place] [address], [place] [address] Jun, [facility] [place] [facility] [address] [id number] [address] [place] [address], [place] [address] May, [facility] [address] [id number] [address] [place] [address], [place] [address] May, [facility] [address] [id number] [address] [place] [address], [place] [address] May, [facility] [address] [id number] [address] [place] [address], [place] [address] Apr, [facility] [place] [facility] [address] [id number] [address] [place] [address], [place] [address] Apr, [facility] [address] [id number] [address] [place] [address], [place] [address] Apr, [facility] [place] [facility] [address] [id number] [address] [place] [address], [place] [address] Apr, [facility] [address] [id number] [address] [place] [address], [place] [address] Apr, [facility] [address] [id number] [address] [place] [address], [place] [address] Apr, [facility] [address] [id number] [address] [place] [address], [place] [address] Mar, [facility] [place] [facility] [address] [id number] [address] [place] [address], [place] [address] 22 Mar, 2014 [facility] [address] [id number] [address] [place] [address], [place] [address] 19 Mar, 2014 [facility] [place] [facility] [address] [id number] [address] [place] [address], [place] [address] Mar, [facility] [place] [facility] [address] [id number] [address] [place] [address], [place] [address] Sep, [facility] [place] [facility] [address] [id number] [address] [place] [address], [place] [address] Sep, [facility] [place] [facility] [address] [id number] [address] [place] [address], [place] [address] Sep, [facility] [address] [id number] [address] [place] [address], [place] [address] Sep, [facility] [address] [id number] [address] [place] [address], [place] [address] 2013 [facility] [address] [id number] [address] [place] [address], [place] [address] Aug, [facility] [address] [id number] [address] [place] [address], [place] [address] Aug, [facility] [address] [id number] [address] [place] [address], [place] [address] Aug, [facility] [address] [id number] [address] [place] [address], [place] [address] Aug, [facility] [address] [id number] [address] [place] [address], [place] [address] Aug, [facility] [address] [id number] [address] [place] [address], [place] [address] Jul, [facility] [address] [id number] [address] [place] [address], [place] [address] Jul, [facility] [address] [id number] [address] [place] [address], [place] [address] Jul, [facility] [address] [id number] [address] [place] [address], [place] [address] Jul, [facility] [address] [id number] [address] [place] [address], [place] [address] Jun, [facility] [address] [id number] [address] [place] [address], [place] [address] Jun, [facility] [address] [id number] [address] [place] [address], [place] [address] May, [facility] [address] [id number] [address] [place] [address], [place] [address] May, [facility] [address] [id number] [address] [place] [address], [place] [address] Apr, [facility] [address] [id number] [address] [place] [address], [place] [address] Apr, [facility] [address] [id number] [address] [place] [address], [place] [address] Apr, [facility] [facility] [address] [id number] [address] [place] [address], [place] [address] Mar, [facility] [address] [id number] [address] [place] [address], [place] [address] Mar, [facility] [address] [id number] [address] [place] [address], [place] [address] Mar, [facility] [address] [id number] [address] [place] [address], [place] [address] Mar, [facility] [address] [id number] [address] [place] [address], [place] [address] Feb, [facility] [address] [id number] [address] [place] [address], [place] [address] Jan, [facility] [address] [id number] [address] [place] [address], [place] [address] Jan, [facility] [address] [id number] [address] [place] [address], [place] [address] Jan, [facility] [address] [id number] [address] [place] [address], [place] [address] Jan, [facility] [address] [id number] [address] [place] [address], [place] [address] Dec, [facility] [address] [id number] [address] [place] [address], [place] [address] Dec, [facility] [address] [id number] [address] [place] [address], [place] [address] Dec, [facility] [address] [id number] [address] [place] [address], [place] [address] Dec, [facility] [address] [id number] [address] [place] [address], [place] [address] Dec, [facility] [address] [id number] [address] [place] [address], [place] [address] Dec, [facility] [address] [id number] [address] [place] [address], [place] [address] November, [facility] [address] [id number] [address] [place] [address], [place] [address] November, [facility] [address] [id number] [address] [place] [address], [place] [address] November, [facility] [address] [id number] [address] [place] [address], [place] [address] Oct, [facility] [address] [id number] [address] [place] [address], [place] [address] Oct, [facility] [address] [id number] [address] [place] [address], [place] [address] Sep, [facility] [address] [id number] [address] [place] [address], [place] [address] Sep, [facility] [address] [id number] [address] [place] [address], [place] [address] Sep, [facility] [address] [id number] [address] [place] [address], [place] [address] Sep, [facility] [address] [id number] [address] [place] [address], [place] [address] Sep, [facility] [address] [id number] [address] [place] [address], [place] [address] Aug, [facility] [address] [id number] [address] [place] [address], [place] [address] Aug, [facility] [address] [id number] [address] [place] [address], [place] [address] Aug, [facility] [address] [id number] [address] [place] [address], [place] [address] Aug, [facility] [address] [id number] [address] [place] [address], [place] [address] Aug, [facility] [address] [id number] [address] [place] [address], [place] [address] Jul, [facility] [address] [id number] [address] [place] [address], [place] [address] 08 Jul, 2012 [facility] [address] [id number] [address] [place] [address], [place] [address] Jun, [facility] [address] [id number] [address] [place] [address], [place] [address] Jun, [facility] [address] [id number] [address] [place] [address], [place] [address] Jun, [facility] [address] [id number] [address] [place] [address], [place] [address] Jun, [facility] [address] [id number] [address] [place] [address], [place] [address] Jun, [facility] [address] [id number] [address] [place] [address], [place] [address] Jun, [facility] [address] [id number] [address] [place] [address], [place] [address] Jun, [facility] [address] [id number] [address] [place] [address], [place] [address] Jun, [facility] [address] [id number] [address] [place] [address], [place] [address] Jun, [facility] [address] [id number] [address] [place] [address], [place] [address] May, [facility] [address] [id number] [address] [place] [address], [place] [address] May, [facility] [address] [id number] [address] [place] [address], [place] [address] May, [facility] [address] [id number] [address] [place] [address], [place] [address] May, [facility] [address] [id number] [address] [place] [address], [place] [address] May, [facility] [address] [id number] [address] [place] [address], [place] [address] 08 May, 2012 [facility] [address] [id number] [address] [place] [address], [place] [address] May, [facility] [address] [id number] [address] [place] [address], [place] [address] Apr, [facility] [address] [id number] [address] [place] [address], [place] [address] Mar, [facility] [address] [id number] [address] [place] [address], [place] [address] Mar, [facility] [address] [id number] [address] [place] [address], [place] [address] Feb, [facility] [address] [id number] [address] [place] [address], [place] [address] Feb, [facility] [address] [id number] [address] [place] [address], [place] [address] Feb, [facility] [address] [id number] [address] [place] [address], [place] [address] Feb, [facility] [address] [id number] [address] [place] [address], [place] [address] Jan, [facility] [address] [id number] [address] [place] [address], [place] [address] Jan, [facility] [address] [id number] [address] [place] [address], [place] [address] Jan, [facility] [address] [id number] [address] [place] [address], [place] [address] Jan, [facility] [address] [id number] [address] [place] [address], [place] [address] Dec, [facility] [address] [id number] [address] [place] [address], [place] [address] Dec, [facility] [address] [id number] [address] [place] [address], [place] [address] Dec, [facility] [address] [id number] [address] [place] [address] Dec, [facility] [address] [id number] [address] [place] [address] Dec, [facility] [address] [id number] [address] [place] [address] Sep, [facility] [address] [id number] [address] [place] [address] Aug, [facility] [address] [id number] [address] [place] [address] Jul, [facility] [address] [id number] [address] [place] [address] Jun, [facility] [address] [id number] [address] [place] [address] Jun, [facility] [address] [id number] [address] [place] [address] Jun, [facility] [address] [id number] [address] [place] [address] Jun, [facility] [address] [id number] [address] [place] [address] May, [facility] [address] [id number] [address] [place] [address] May, [facility] [address] [id number] [address] [place] [address] Apr, [facility] [address] [id number] [address] [place] [address] Jun, [facility] [address] [id number] [address] [place] [address] Apr, IMMUNIZATIONS No Known Immunizations SOCIAL HISTORY Never Assessed REASON FOR VISIT PLAN OF CARE VITAL SIGNS Height 66 in 2014-07-30 Weight 226.01 lbs 2014-07-30 Temperature 97.9 degrees Fahrenheit 2014-07-30 Heart Rate 100 bpm 2014-07-30 Respiratory Rate 22 2014-07-30 Blood pressure systolic 126 mmHg 2014-07-30 Blood pressure diastolic 78 mmHg 2014-07-30 MEDICATIONS Unknown Medications RESULTS No Results PROCEDURES Procedure Date Ordered Result Body Site MEASURE BLOOD OXYGEN LEVEL Jul 30, 2014 INSTRUCTIONS MEDICATIONS ADMINISTERED No Known Medications [...] 11/2017 Hospitalization History pneumonia 10/07 Hospitalization History [facility] 03/09/19 Hospitalization History via [email or web address]. 07/17/19
--- OUTSIDE RECORDS SUMMARY | 2019-12-24 00:30 | XMS REPORT ---
Author Author Don BLAIR [facility] Address [address] [place] [address] Care Team Providers Care Rig Builder Name Role Phone VÍCTOR BLAIR Unavailable PROBLEMS Type Condition ICD9-CM Code [id number] Code Onset Dates Condition S tatus SNOMED Code Problem Allergic rhinitis J30.9 Active 61 173697 Problem Urinary incontinence R32 Active 750494085 Problem Microcytic anemia D50.9 Active 23 5493794 Problem Hypothyroidism E03.9 Active 36068 008 Problem Gastroesophageal reflux disease without esophagitis K21.9 Active 721063736 Problem Essential hypertension I10 Active 39260326 Problem Tobacco abuse Z72.0 Active 397578 000 Problem Chronic bronchitis, unspecified chronic bronchitis type J42 Active 53820034 Problem On home oxygen therapy Z99.81 Active 782202458363 Problem Parotiditis K11.20 Active 97467117 Problem 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 Active 05592862 Problem Type 2 diabetes mellitus with other specified complication E11.69 Active 99873745 Problem Hyperlipidemia LDL goal <70 E78.5 Ac tive 21757041 Problem Morbid (severe) obesity due to excess calories E66 .01 Active 338538244 Problem Seasonal allergic rhinitis due to pollen J30.1 Active 75824266 ALLERGIES No Information ENCOUNTERS Encounter Location Date Diagnosis [facility] [address] [facility] [id number] [place] [address] 14 Oct, 2019 [facility] [place] [address] [facility] [id number] [address] [place] [phone] Sep, [facility] [place] [address] [facility] [id number] [address] [place] [id number] 16 Sep, 2019 COPD (chronic obstructive pu lmonary disease) with emphysema J43.9 [facility] [place] [address] [facility] [id number] [address] [place] [phone] Sep, [facility] [place] [address] [facility] [id number] [address] [place] [phone] Aug, [facility] [address] [facility] [id number] [place] [address] Aug, Essential hypertension I10 [facility] [address] [facility] [id number] [address] [place] [phone] Jul, Parotiditis K11.20 [facility] [place] [address] [facility] [id number] [address] [place] [phone] Jul, [facility] [place] [address] [facility] [id number] [address] [place] [phone] Jul, Type II diabetes mellitus E1 1.9 [place] [address] [place] [id number] [address] [place] [phone] Jul, [facility] [place] [address] [place] [phone] Jul, Pneumonia due to infectious organism, unspecified laterality, unspecified part of lung J18.9 ; On home oxygen therapy Z99.81 ; Type II diabetes mellitus E11.9 ; Tobacco use disorder F17.200 and Encounter for tobacco use cessation counseling Z71.6 [facility] [place] [address] [place] [id number] [address] [place] [id number] 14 Apr, 2019 [facility] [address] [place] [id number] [address] [place] [id number] 30 Mar, 2019 Acute non-recurrent frontal sinusitis J01.10 [facility] [place] [address] [facility] [id number] [address] [place] [id number] 17 Mar, 2019 Type 2 diabetes mellitus wit hout complications E11.9 [facility] [place] [address] [facility] [id number] [address] [place] [id number] 04 Mar, 2019 Type 2 diabetes mellitus wit hout complications E11.9 ; Essential hypertension I10 and Chronic bronchitis, unspecified chronic bronchitis type J42 [place] [address] [facility] [id number] [address] [place] [phone] Feb, [facility] [place] [address] [id number] [address] [place] [address], [place] [address] Dec, [facility] [address] [id number] [address] [place] [phone] Dec, [facility] [place] [address] [id number] [address] [place] [phone] November, [facility] [place] [facility] [address] [place] [address] 340[address] [id number] [place] [address] November, [facility] [place] [facility] [address] [place] [address] 340B [id number] [place] [address] November, [facility] [place] [address] 340B [id number] [place] [address] November, Allergic rhinitis J30.9 [facility] [place] [address] [id number] [address] [place] [phone] November, [facility] [place] [address] [id number] [address] [place] [phone] November, [facility] [place] [address] [id number] [address] [place] [phone] November, [facility] [place] [address] [id number] [address] [place] [phone] Oct, [facility] [place] [address] [id number] [address] [place] [phone] Oct, Essential hypertension I10 [facility] [place] [address] [id number] [address] [place] [phone] Oct, [facility] [place] [address] [id number] [address] [place] [phone] Oct, [facility] [place] [address] [id number] [address] [place] [phone] Oct, [facility] [place] [address] [id number] [address] [place] [phone] Oct, [facility] [place] [address] [facility] [id number] [address] [place] [phone] Oct, [facility] [address] [facility] [id number] [address] [place] [phone] Oct, Shortness of breath R06.02 a nd Oxygen decrease R09.02 [facility] [place] [address] [facility] [id number] [address] [place] [phone] Oct, [facility] [place] [address] [facility] [id number] [address] [place] [id number] Sep, COPD (chronic obstructive pu lmonary disease) with emphysema J43.9 ; On home oxygen therapy Z99.81 and Hypothyroidism E03.9 [facility] [place] [address] [facility] [id number] [address] [place] [phone] Sep, [facility] [place] [address] [address] Sep, [facility] [place] [address] [place] [id number] [address] [place] [phone] Sep, Acute on chronic respiratory failure with hypoxia J96.21 ; Hypothyroidism E03.9 ; 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 ; Essential hypertension I10 ; Type 2 diabetes mellitus with other specified complication E11.69 ; 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 and Hyperlipidemia LDL goal <70 E78.5 [facility] [place] [address] [place] [phone] Sep, Allergic rhinitis J30.9 [facility] [place] [address] [place] [id number] [address] [place] [phone] Aug, Allergic rhinitis J30.9 [facility] [place] [address] [place] [id number] [address] [place] [phone] Aug, [facility] [place] [address] [place] [id number] [address] [place] [phone] Aug, [facility] [place] [address] [place] [id number] [place] [address] 04 Aug, 2018 [facility] [place] [address] [facility] [id number] [address] [place] [phone] Jul, [facility] [place] [address] [facility] [id number] [address] [place] [id number] 14 Jul, 2018 Type 2 diabetes mellitus wit h other specified complication E11.69 [facility] [place] [address] [facility] [id number] [address] [place] [id number] Jun, [facility] [place] [address] [facility] [id number] [address] [place] [phone] May, Hyperlipidemia LDL goal <70 E78.5 ; 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 and Encounter for immunization Z23 [facility] [place] [address] [facility] [id number] [address] [place] [phone] May, [facility] [address] [facility] [id number] [address] [place] [id number] May, Acute upper respiratory infe ction J06.9 [facility] [place] [address] [facility] [id number] [address] [place] [phone] May, Essential hypertension I10 [facility] [place] [address] [facility] [id number] [address] [place] [phone] May, Essential hypertension I10 [facility] [place] [address] [facility] [id number] [address] [place] [phone] Apr, Essential hypertension I10 [facility] [place] [address] [facility] [id number] [address] [place] [id number] Apr, [facility] [place] [address] [facility] [id number] [address] [place] [phone] Apr, COPD (chronic obstructive pu lmonary disease) with emphysema J43.9 [facility] [place] [address] [facility] [id number] [address] [place] [phone] Apr, [facility] [place] [address] [place] [id number] [address] [place] [phone] Mar, [facility] [place] [address] [place] [id number] [address] [place] [phone] Feb, Type 2 diabetes mellitus wit h other specified complication E11.69 ; 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 ; Essential hypertension I10 ; Hyperlipidemia LDL goal <70 E78.5 ; 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 ; Microcytic anemia D50.9 ; Morbid (severe) obesity due to excess calories E66.01 ; Body mass index (BMI) of 39.0-39.9 in adult Z68.39 ; Hypothyroidism E03.9 and Seasonal allergic rhinitis due to pollen J30.1 [facility] [place] [address] [place] [id number] [address] [place] [phone] November, Pneumonia of right lower lob e due to infectious organism J18.1 ; retirement current use of insulin Z79.4 ; Type [...] without esophagitis K21.9 and Allergic rhinitis J30.9 [facility] [place] [address] [place] [id number] [address] [place] [phone] November, [facility] [place] [address] [place] [id number] [address] [place] [phone] Sep, [facility] [place] [address] [place] [id number] [address] [place] [phone] Sep, [facility] [place] [address] [place] [id number] [address] [place] [phone] Sep, [facility] [place] [address] [place] [id number] [address] [place] [phone] Sep, [facility] [address] [place] [id number] [address] [place] [phone] Jul, Encounter for immunization Z 23 [facility] [address] [address] Jun, Subacute maxillary sinusitis J01.00 [facility] [place] [address] [address] May, [place] [address] [phone] May, [place] [address] [address] May, Type II diabetes mellitus E1 1.9 ; Hypothyroidism E03.9 ; 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 ; Cough R05 ; COPD with exacerbation J44.1 and Pneumonia of right lower lobe due to infectious organism J18.1 [place] [address] [address] Mar, Hyperlipidemia, unspecified hyperlipidemia type E78.5 [place] [address] [address] Mar, Hypothyroidism E03.9 and Hyp erlipidemia, unspecified hyperlipidemia type E78.5 [place] [address] [address] Feb, Type II diabetes mellitus E1 1.9 [...] full remission F33.42 and Urinary incontinence R32 [facility] [place] [address] [address] Jan, [place] [address] [address] Jan, [address] [address] November, [address] [address] Sep, Type II diabetes mellitus E1 1.9 [...] and Tinea pedis of both feet B35.[address] [address] Jun, [facility] [address] [place] [address] Jun, Acute upper respiratory infe ction, unspecified J06.9 and Other viral agents as the cause of diseases classified elsewhere B97.[address] [address] May, [address] [address] May, Type 2 diabetes mellitus wit h [...] thrush B37.0 and Encounter for immunization Z23 [address] [address] Apr, [address] [address] Apr, [facility] [place] [address] [facility] [id number] [address] [place] [phone] Mar, [facility] [place] [address] [place] [id number] [address] [place] [phone] Dec, [facility] [place] [address] [facility] [id number] [address] [place] [id number] Dec, [facility] [place] [address] [address] Dec, Encounter for well woman gurinder m with routine gynecological exam Z01.419 ; Encounter for screening for malignant neoplasm of cervix Z12.4 ; Screening mammogram, encounter for Z12.31 ; Encounter for screening breast examination Z12.39 ; On home oxygen therapy Z99.81 ; 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 ; Heat rash L74.0 ; Type II diabetes mellitus E11.9 and Hypothyroidism E03.9 [facility] [place] [address] [address] November, [facility] [place] [address] [place] [id number] [address] [place] [address] November, Type II diabetes mellitus E1 1.9 ; Allergic rhinitis J30.9 ; Hypothyroidism E03.9 ; Obesity due to excess calories E66.09 ; Urinary incontinence R32 ; Gastroesophageal reflux disease without esophagitis K21.9 and Essential hypertension I10 [facility] [place] [address] [place] [phone] Oct, [facility] [place] [address] [place] [phone] Sep, [facility] [place] [address] [address] Sep, [facility] [address] [facility] [id number] [address] [place] [id number] Aug, Acute maxillary sinusitis J0 1.00 [facility] [place] [address] [place] [id number] [address] [place] [phone] Aug, [place] [address] [place] [phone] Aug, [place] [address] [place] [id number] [address] [place] [phone] 16 Aug, 2015 Type II diabetes mellitus E1 1.[address] [address] 05 Aug, 2015 Type II diabetes mellitus E1 1.9 ; Hypothyroidism E03.9 ; 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 ; Obesity due to excess calories E66.09 ; Urinary incontinence R32 ; Anemia D64.9 ; Microcytic anemia D50.9 and Allergic rhinitis J30.9 [place] [id number] [address] [place] [address] May, Upper respiratory symptom R0 9.[address] [address] May, Oral thrush B37.[address] [address] Apr, Hypothyroidism E03.9 and Harish rocytic anemia D50.9 [place] [id number] [address] [place] [address] Apr, Encounter for long-term curr ent use of medication Z79.899 ; Hypothyroidism E03.9 ; Microcytic anemia D50.9 ; Type 2 diabetes mellitus without complication E11.9 ; Essential hypertension I10 and Mixed incontinence N39.46 [place] [address] [place] [id number] [address] [place] [address] Apr, [address] [address] Mar, [place] [address] [place] [id number] [address] [place] [phone] Mar, [address] [address] Mar, [facility] [place] [address] [facility] [id number] [address] [place] [phone] Mar, [facility] [place] [address] [facility] [id number] [address] [place] [phone] Mar, [facility] [place] [address] [facility] [id number] [address] [place] [phone] Mar, [facility] [place] [address] [facility] [id number] [address] [place] [phone] Mar, [facility] [place] [address] [facility] [id number] [address] [place] [id number] Feb, Cough 786.2 ; Wheezing 786.0 7 ; Hypothyroidism 244.9 and Encounter for long-term current use of medication V58.69 [facility] [place] [address] [facility] [id number] [address] [place] [id number] Feb, Diabetes type 2, uncontrolle d 250.02 ; Depression 311 ; Encounter for long-term current use of medication V58.69 and Hypothyroidism 244.9 [facility] [place] [address] [facility] [id number] [address] [place] [phone] Feb, [facility] [place] [address] [facility] [id number] [address] [place] [id number] Jan, [facility] [place] [address] [facility] [id number] [address] [place] [phone] Oct, [facility] [place] [address] [facility] [id number] [address] [place] [id number] Oct, [facility] [place] [address] [facility] [id number] [address] [place] [phone] Oct, [facility] [place] [address] [facility] [id number] [address] [place] [phone] Sep, [facility] [place] [address] [facility] [id number] [address] [place] [phone] Sep, [facility] [place] [facility] [address] [id number] [address] [place] [address], [place] [address] Sep, [facility] [address] [id number] [address] [place] [address], [place] [address] Aug, [facility] [address] [id number] [address] [place] [address], [place] [address] Aug, [facility] [address] [id number] [address] [place] [address], [place] [address] Jul, [facility] [address] [id number] [address] [place] [address], [place] [address] Jul, [facility] [address] [id number] [address] [place] [address], [place] [address] Jul, [facility] [address] [id number] [address] [place] [address], [place] [address] Jul, [facility] [address] [id number] [address] [place] [address], [place] [address] Jul, [facility] [address] [id number] [address] [place] [address], [place] [address] Jul, [facility] [address] [id number] [address] [place] [address], [place] [address] Jul, [facility] [address] [id number] [address] [place] [address], [place] [address] Jul, [facility] [address] [id number] [address] [place] [address], [place] [address] Jun, [facility] [address] [id number] [address] [place] [address], [place] [address] Jun, [facility] [address] [id number] [address] [place] [address], [place] [address] May, [facility] [address] [id number] [address] [place] [address], [place] [address] May, [facility] [address] [id number] [address] [place] [address], [place] [address] May, [facility] [address] [id number] [address] [place] [address], [place] [address] Apr, [facility] [address] [id number] [address] [place] [address], [place] [address] Apr, [facility] [address] [id number] [address] [place] [address], [place] [address] Apr, [facility] [address] [id number] [address] [place] [address], [place] [address] Apr, [facility] [address] [id number] [address] [place] [address], [place] [address] Apr, [facility] [address] [id number] [address] [place] [address], [place] [address] Apr, [facility] [address] [id number] [address] [place] [address], [place] [address] Mar, [facility] [address] [id number] [address] [place] [address], [place] [address] Mar, [facility] [address] [id number] [address] [place] [address], [place] [address] 19 Mar, 2014 [facility] [address] [id number] [address] [place] [address], [place] [address] Mar, [facility] [address] [id number] [address] [place] [address], [place] [address] Sep, [facility] [address] [id number] [address] [place] [address], [place] [address] Sep, [facility] [address] [id number] [address] [place] [address], [place] [address] Sep, [facility] [address] [id number] [address] [place] [address], [place] [address] Sep, [facility] [address] [id number] [address] [place] [address], [place] [address] Aug, [facility] [address] [id number] [address] [place] [address], [place] [address] Aug, [facility] [address] [id number] [address] [place] [address], [place] [address] Aug, [facility] [address] [id number] [address] [place] [address], [place] [address] Aug, [facility] [address] [id number] [address] [place] [address], [place] [address] Aug, [facility] [address] [id number] [address] [place] [address], [place] [address] Aug, [facility] [address] [id number] [address] [place] [address], [place] [address] Jul, [facility] [address] [id number] [address] [place] [address], [place] [address] Jul, [facility] [address] [id number] [address] [place] [address], [place] [address] Jul, [facility] [address] [id number] [address] [place] [address], [place] [address] Jul, [facility] [address] [id number] [address] [place] [address], [place] [address] Jun, [facility] [address] [id number] [address] [place] [address], [place] [address] Jun, [facility] [address] [id number] [address] [place] [address], [place] [address] May, [facility] [address] [id number] [address] [place] [address], [place] [address] May, [facility] [address] [id number] [address] [place] [address], [place] [address] Apr, [facility] [address] [id number] [address] [place] [address], [place] [address] Apr, [facility] [address] [id number] [address] [place] [address], [place] [address] Apr, [facility] [address] [id number] [address] [place] [address], [place] [address] Mar, [facility] [address] [id number] [address] [place] [address], [place] [address] Mar, [facility] [address] [id number] [address] [place] [address], [place] [address] 04 Mar, 2013 [facility] [address] [id number] [address] [place] [address], [place] [address] Mar, [facility] [address] [id number] [address] [place] [address], [place] [address] Feb, [facility] [address] [id number] [address] [place] [address], [place] [address] Jan, [facility] [address] [id number] [address] [place] [address], [place] [address] Jan, [facility] [address] [id number] [address] [place] [address], [place] [address] Jan, [facility] [address] [id number] [address] [place] [address], [place] [address] Jan, [facility] [address] [id number] [address] [place] [address], [place] [address] Dec, [facility] [address] [id number] [address] [place] [address], [place] [address] Dec, [facility] [address] [id number] [address] [place] [address], [place] [address] Dec, [facility] [address] [id number] [address] [place] [address], [place] [address] Dec, [facility] [address] [id number] [address] [place] [address], [place] [address] Dec, [facility] [address] [id number] [address] [place] [address], [place] [address] Dec, [facility] [address] [id number] [address] [place] [address], [place] [address] November, [facility] [address] [id number] [address] [place] [address], [place] [address] November, [facility] [address] [id number] [address] [place] [address], [place] [address] November, [facility] [address] [id number] [address] [place] [address], [place] [address] Oct, [facility] [address] [id number] [address] [place] [address], [place] [address] Oct, [facility] [address] [id number] [address] [place] [address], [place] [address] Sep, [facility] [address] [id number] [address] [place] [address], [place] [address] Sep, [facility] [address] [id number] [address] [place] [address], [place] [address] Sep, [facility] [address] [id number] [address] [place] [address], [place] [address] Sep, [facility] [address] [id number] [address] [place] [address], [place] [address] Sep, [facility] [address] [id number] [address] [place] [address], [place] [address] Aug, [facility] [address] [id number] [address] [place] [address], [place] [address] Aug, [facility] [address] [id number] [address] [place] [address], [place] [address] Aug, [facility] [address] [id number] [address] [place] [address], [place] [address] Aug, [facility] [address] [id number] [address] [place] [address], [place] [address] Aug, [facility] [address] [id number] [address] [place] [address], [place] [address] Jul, [facility] [address] [id number] [address] [place] [address], [place] [address] Jul, [facility] [address] [id number] [address] [place] [address], [place] [address] Jun, [facility] [address] [id number] [address] [place] [address], [place] [address] Jun, [facility] [address] [id number] [address] [place] [address], [place] [address] Jun, [facility] [address] [id number] [address] [place] [address], [place] [address] Jun, [facility] [address] [id number] [address] [place] [address], [place] [address] Jun, [facility] [address] [id number] [address] [place] [address], [place] [address] Jun, [facility] [address] [id number] [address] [place] [address], [place] [address] Jun, [facility] [address] [id number] [address] [place] [address], [place] [address] Jun, [facility] [address] [id number] [address] [place] [address], [place] [address] Jun, [facility] [address] [id number] [address] [place] [address], [place] [address] May, [facility] [address] [id number] [address] [place] [address], [place] [address] May, [facility] [address] [id number] [address] [place] [address], [place] [address] May, [facility] [address] [id number] [address] [place] [address], [place] [address] May, [facility] [address] [id number] [address] [place] [address], [place] [address] May, [facility] [address] [id number] [address] [place] [address], [place] [address] May, [facility] [address] [id number] [address] [place] [address], [place] [address] May, [facility] [address] [id number] [address] [place] [address], [place] [address] Apr, [facility] [address] [id number] [address] [place] [address], [place] [address] Mar, [facility] [address] [id number] [address] [place] [address], [place] [address] Mar, [facility] [address] [id number] [address] [place] [address], [place] [address] Feb, [facility] [address] [id number] [address] [place] [address], [place] [address] Feb, [facility] [address] [id number] [address] [place] [address], [place] [address] Feb, [facility] [address] [id number] [address] [place] [address], [place] [address] Feb, [facility] [address] [id number] [address] [place] [address], [place] [address] Jan, [facility] [address] [id number] [address] [place] [address], [place] [address] Jan, [facility] [address] [id number] [address] [place] [address], [place] [address] Jan, [facility] [address] [id number] [address] [place] [address], [place] [address] Jan, [facility] [address] [id number] [address] [place] [address], [place] [address] Dec, [facility] [address] [id number] [address] [place] [address], [place] [address] Dec, [facility] [address] [id number] [address] [place] [address], [place] [address] Dec, [facility] [address] [id number] [address] [place] [id number] 15 Dec, 2011 [facility] [place] [address] [id number] [address] [place] [id number] Dec, [facility] [place] [address] [id number] [address] [place] [id number] Sep, [facility] [place] [address] [id number] [address] [place] [id number] Aug, [facility] [place] [address] [id number] [address] [place] [id number] Jul, [facility] [place] [address] [id number] [address] [place] [id number] Jun, [facility] [place] [address] [id number] [address] [place] [id number] Jun, [facility] [place] [address] [id number] [address] [place] [id number] Jun, [facility] [place] [address] [id number] [address] [place] [id number] Jun, [facility] [place] [address] [id number] [address] [place] [id number] May, [facility] [place] [address] [id number] [address] [place] [id number] May, [facility] [place] [address] [id number] [address] [place] [id number] Apr, [facility] [place] [address] [id number] [address] [place] [id number] Jun, [facility] [place] [address] [id number] [address] [place] [id number] Apr, IMMUNIZATIONS No Known Immunizations SOCIAL HISTORY Never Assessed REASON FOR VISIT PLAN OF CARE VITAL SIGNS Height 66 in 2014-07-28 Weight 228.25 lbs 2014-07-28 Temperature 98.7 degrees Fahrenheit 2014-07-28 Heart Rate 110 bpm 2014-07-28 Respiratory Rate 24 2014-07-28 Blood pressure systolic 128 mmHg 2014-07-28 Blood pressure diastolic 74 mmHg 2014-07-28 MEDICATIONS Unknown Medications RESULTS No Results PROCEDURES Procedure Date Ordered Result Body Site MEASURE BLOOD OXYGEN LEVEL Jul 28, 2014 CHEST X-RAY Jul 28, 2014 INSTRUCTIONS MEDICATIONS ADMINISTERED No Known Medications [...] 11/2017 Hospitalization History pneumonia 10/07 Hospitalization History [facility] 03/09/19 Hospitalization History via [email or web address]. 07/17/19
--- OUTSIDE RECORDS SUMMARY | 2019-12-24 00:30 | XMS REPORT ---
Author Author Don Jay Doctor Organization [facility] Address Unknown Phone Unavailable Care Team Providers Care Contact Center Manager Name Role Phone Migration, Doctor Unavailable Unavailable PROBLEMS Type Condition ICD9-CM Code OOC99-CZ Code Onset Dates Condition S tatus SNOMED Code Problem Urinary incontinence R32 Active 611622911 Problem Hypothyroidism E03.9 Active 36768 008 Problem Allergic rhinitis J30.9 Active 61 720593 Problem 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 Active 82114571 Problem Microcytic anemia D50.9 Active 23 6288267 Problem Essential hypertension I10 Active 25321013 Problem Type 2 diabetes mellitus with other specified complication E11.69 Active 31827888 Problem Tobacco abuse Z72.0 Active 951155 000 Problem Parotiditis K11.20 Active 39749886 Problem Gastroesophageal reflux disease without esophagitis K21.9 Active 152412694 Problem Type II diabetes mellitus E11.9 Acti ve 90216175 Problem On home oxygen therapy Z99.81 Active 015270295000 Problem Morbid (severe) obesity due to excess calories E66 .01 Active 519787016 Problem Hyperlipidemia LDL goal <70 E78.5 Ac tive 72046306 Problem Seasonal allergic rhinitis due to pollen J30.1 Active 52344793 Problem Chronic bronchitis, unspecified chronic bronchitis type J42 Active 87699078 ALLERGIES No Information ENCOUNTERS Encounter Location Date Diagnosis [facility] [address] [facility] [id number] [address] [place] [address] Oct, [facility] [address] [facility] [id number] [address] [place] [address] Oct, Type II diabetes mellitus E1 1.9 [facility] [address] [facility] [id number] [place] [address] 14 Oct, 2019 [facility] [address] [facility] [id number] [address] [place] [address] Sep, [facility] [address] [facility] [id number] [address] [place] [address] 16 Sep, 2019 COPD (chronic obstructive pu lmonary disease) with emphysema J43.9 [facility] [address] [facility] [id number] [address] [place] [address] 02 Sep, 2019 [facility] [address] [facility] [id number] [address] [place] [id number] 07 Aug, 2019 [facility] [address] [facility] [id number] [address] Aug, Essential hypertension I10 [facility] [address] [facility] [id number] [address] [place] [address] 28 Jul, [address] [facility] [address] [place] [id number] [address] [place] [address] Jul, [place] [address] [place] [id number] [address] [place] [address] Jul, Type II diabetes mellitus E1 1.9 [facility] [address] [place] [id number] [address] [place] [address] Jul, [place] [address] [address] 13 Jul, 2019 Pneumonia due to infectious organism, unspecified laterality, unspecified part of lung J18.9 ; On home oxygen therapy Z99.81 ; Type II diabetes mellitus E11.9 ; Tobacco use disorder F17.200 and Encounter for tobacco use cessation counseling Z71.6 [facility] [address] [facility] [id number] [address] [place] [id number] 14 Apr, 2019 [facility] [address] [facility] [id number] [address] [place] [address] 30 Mar, 2019 Acute non-recurrent frontal sinusitis J01.10 [facility] [address] [place] [id number] [address] [place] [address] 17 Mar, 2019 Type 2 diabetes mellitus wit hout complications E11.9 [facility] [address] [facility] [id number] [address] [place] [address] Mar, Type 2 diabetes mellitus wit hout complications E11.9 ; Essential hypertension I10 and Chronic bronchitis, unspecified chronic bronchitis type J42 [facility] [address] [id number] [address] [place] [address] Feb, [facility] [address] [facility] [id number] [address] [place] [address] Dec, [facility] [address] [id number] [address] [place] [address] Dec, [facility] [address] [id number] [address] [place] [address] November, [facility] [address] [id number] [address] November, [address] [id number] [address] November, [address] [id number] [place] [address] November, Allergic rhinitis J30.9 [facility] [address] [facility] [id number] [address] [place] [address] November, [facility] [address] [facility] [id number] [address] [place] [address] November, [facility] [address] [facility] [id number] [address] [place] [address] November, [facility] [address] [facility] [id number] [address] [place] [address] Oct, [facility] [address] [id number] [address] [place] [address] Oct, Essential hypertension I10 [facility] [address] [id number] [address] [place] [address] Oct, [facility] [address] [facility] [id number] [address] [place] [address] Oct, [facility] [address] [facility] [id number] [address] [place] [address] Oct, [facility] [address] [facility] [id number] [address] [place] [address] Oct, [facility] [address] [facility] [id number] [address] [place] [address] Oct, [facility] [address] [facility] [id number] [address] [place] [address] Oct, Shortness of breath R06.02 a nd Oxygen decrease R09.02 [facility] [address] [facility] [id number] [address] [place] [address] Oct, [facility] [address] [facility] [id number] [address] [place] [address] Sep, COPD (chronic obstructive pu lmonary disease) with emphysema J43.9 ; On home oxygen therapy Z99.[address] [facility] [address] [facility] [id number] [address] [place] [address] Sep, [facility] [address] [place] [id number] [address] [place] [address] Sep, [facility] [address] [place] [id number] [address] [place] [address] Sep, Acute on chronic respiratory failure with hypoxia J96.21 ; Hypothyroidism E03.9 ; 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 ; Essential hypertension I10 ; Type 2 diabetes mellitus with other specified complication E11.69 ; residential current use of insulin Z79.4 and Hyperlipidemia LDL goal <[address] [facility] [address] [facility] [id number] [address] [place] [address] Sep, Allergic rhinitis J30.9 [facility] [address] [facility] [id number] [address] [place] [address] Aug, Allergic rhinitis J30.9 [facility] [address] [place] [id number] [address] [place] [address] Aug, [facility] [address] [facility] [id number] [address] [place] [address] Aug, [facility] [address] [facility] [id number] [address] [place] [address] Aug, [facility] [address] [facility] [id number] [address] [place] [address] Jul, [facility] [address] [facility] [id number] [address] [place] [address] Jul, Type 2 diabetes mellitus wit h other specified complication E11.69 [facility] [address] [facility] [id number] [place] [address] Jun, [facility] [address] [facility] [id number] [place] [address] May, Hyperlipidemia LDL goal <70 E78.5 ; 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 and Encounter for immunization Z23 [facility] [address] [facility] [id number] [address] [place] [address] May, [facility] [address] [facility] [id number] [address] [place] [address] May, Acute upper respiratory infe ction J06.9 [facility] [address] [facility] [id number] [address] [place] [address] May, Essential hypertension I10 [facility] [address] [facility] [id number] [address] [place] [address] May, Essential hypertension I10 [facility] [address] [facility] [id number] [address] [place] [address] Apr, Essential hypertension I10 [facility] [address] [facility] [id number] [address] [place] [address] Apr, [facility] [address] [facility] [id number] [address] [place] [address] Apr, COPD (chronic obstructive pu lmonary disease) with emphysema J43.9 [facility] [address] [facility] [id number] [address] [place] [address] Apr, [facility] [address] [facility] [id number] [address] [place] [address] Mar, 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 [address] [facility] [id number] [address] [place] [id number] November, [facility] [address] [facility] [id number] [address] [place] [address] Sep, [place] [id number] [facility] [id number] [address] [place] [address] Sep, [facility] [address] [place] [id number] [address] [place] [address] Sep, [facility] [address] [place] [id number] [address] [place] [address] Sep, [facility] [address] [address] Jul, Encounter for immunization Z 23 [facility] [address] [address] Jun, Subacute maxillary sinusitis J01.00 [facility] [address] [address] May, [place] [address] [address] May, [place] [address] [address] May, Type II diabetes mellitus E1 1.9 ; Hypothyroidism E03.9 ; COPD (chronic obstructive pulmonary disease) with emphysema J43.9 ; Cough R05 ; COPD with exacerbation J44.1 and Pneumonia of right lower lobe due to infectious organism J18.[address] [address] 08 Mar, 2017 Hyperlipidemia, unspecified hyperlipidemia type E78.[address] [address] Mar, Hypothyroidism E03.9 and Hyp erlipidemia, unspecified hyperlipidemia type E78.5 [place] [address] [address] Feb, Type II diabetes mellitus E1 1.9 [...] F33.42 and Urinary incontinence R32 [place] [address] [address] Jan, [place] [address] [address] Jan, [place] [address] [address] November, [place] [address] [address] Sep, Type II diabetes mellitus E1 1.9 [...] and Tinea pedis of both feet B35.[address] [address] Jun, [facility] [address] [place] [address] Jun, Acute upper respiratory infe ction, unspecified J06.9 and Other viral agents as the cause of diseases classified elsewhere B97.[address] [address] May, [address] [address] May, Type 2 diabetes mellitus wit h [...] and Encounter for immunization Z23 [place] [address] [facility] [id number] [address] [place] [address] Apr, [facility] [address] [facility] [id number] [address] [place] [address] Apr, [facility] [address] [facility] [id number] [address] [place] [address] Mar, [facility] [id number] [place] [address] Dec, [facility] [address] [facility] [id number] [address] [place] [address] Dec, [facility] [address] [place] [id number] [address] [place] [address] Dec, Encounter for well woman gurinder m [...] [facility] [address] [place] [id number] [address] [place] [address] November, [facility] [address] [place] [address] November, Type II diabetes mellitus E1 1.9 ; Allergic rhinitis J30.9 ; Hypothyroidism E03.9 ; Obesity due to excess calories E66.09 ; Urinary incontinence R32 ; Gastroesophageal reflux disease without esophagitis K21.9 and Essential hypertension I10 [facility] [address] [facility] [id number] [address] [place] [address] Oct, [facility] [address] [place] [id number] [address] [place] [address] Sep, [facility] [address] [facility] [id number] [address] [place] [address] Sep, [facility] [address] [place] [id number] [address] [place] [address] 27 Aug, 2015 Acute maxillary sinusitis J0 1.00 [facility] [address] [address] Aug, [facility] [address] [address] Aug, [place] [address] [address] 16 Aug, 2015 Type II diabetes mellitus E1 1.9 [place] [address] [address] 05 Aug, 2015 Type II diabetes mellitus E1 1.9 ; Hypothyroidism E03.9 ; COPD (chronic obstructive pulmonary disease) with emphysema J43.9 ; Obesity due to excess calories E66.09 ; Urinary incontinence R32 ; Anemia D64.9 ; Microcytic anemia D50.9 and Allergic rhinitis J30.9 [place] [address] [address] 11 May, 2015 Upper respiratory symptom R0 9.[address] [address] May, Oral thrush B37.[address] [address] Apr, Hypothyroidism E03.9 and Harish rocytic anemia D50.9 [place] [address] [address] Apr, Encounter for long-term curr ent use of medication Z79.899 ; Hypothyroidism E03.9 ; Microcytic anemia D50.9 ; Type 2 diabetes mellitus without complication E11.9 ; Essential hypertension I10 and Mixed incontinence N39.46 [place] [address] [address] 06 Apr, 2015 [place] [address] [address] Mar, [facility] [address] [facility] [id number] [address] [place] [address] Mar, [facility] [address] [facility] [id number] [address] [place] [address] Mar, [facility] [address] [facility] [id number] [address] [place] [address] Mar, [facility] [address] [facility] [id number] [address] [place] [address] Mar, [facility] [address] [facility] [id number] [address] [place] [address] Mar, [facility] [address] [facility] [id number] [address] [place] [address] Mar, [facility] [address] [facility] [id number] [address] [place] [address] Feb, Cough 786.2 ; Wheezing 786.0 7 ; Hypothyroidism 244.9 and Encounter for long-term current use of medication V58.69 [facility] [address] [facility] [id number] [address] [place] [address] Feb, Diabetes type 2, uncontrolle d 250.02 ; Depression 311 ; Encounter for long-term current use of medication V58.[address] [facility] [address] [facility] [id number] [address] [place] [address] Feb, [facility] [address] [facility] [id number] [address] [place] [address] Jan, [facility] [address] [facility] [id number] [address] [place] [address] Oct, [facility] [address] [facility] [id number] [address] [place] [address] Oct, [facility] [address] [facility] [id number] [address] [place] [address] Oct, [facility] [address] [id number] [address] [place] [address], [place] [address] Sep, [facility] [address] [id number] [address] [place] [address], [place] [address] Sep, [facility] [address] [id number] [address] [place] [address], [place] [address] Sep, [facility] [address] [id number] [address] [place] [address], [place] [address] Aug, [facility] [address] [id number] [address] [place] [address], [place] [address] Aug, [facility] [address] [id number] [address] [place] [address], [place] [address] Jul, [facility] [address] [id number] [address] [place] [address], [place] [address] Jul, [facility] [address] [id number] [address] [place] [address], [place] [address] Jul, [facility] [address] [id number] [address] [place] [address], [place] [address] Jul, [facility] [address] [id number] [address] [place] [address], [place] [address] Jul, [facility] [address] [id number] [address] [place] [address], [place] [address] Jul, [facility] [address] [id number] [address] [place] [address], [place] [address] Jul, [facility] [address] [id number] [address] [place] [address], [place] [address] Jul, [facility] [address] [id number] [address] [place] [address], [place] [address] Jun, [facility] [address] [id number] [address] [place] [address], [place] [address] Jun, [facility] [address] [id number] [address] [place] [address], [place] [address] May, [facility] [address] [id number] [address] [place] [address], [place] [address] May, [facility] [address] [id number] [address] [place] [address], [place] [address] May, [facility] [address] [id number] [address] [place] [address], [place] [address] Apr, [facility] [address] [id number] [address] [place] [address], [place] [address] Apr, [facility] [address] [id number] [address] [place] [address], [place] [address] Apr, [facility] [address] [id number] [address] [place] [address], [place] [address] Apr, [facility] [address] [id number] [address] [place] [address], [place] [address] Apr, [facility] [address] [id number] [address] [place] [address], [place] [address] Apr, [facility] [address] [id number] [address] [place] [address], [place] [address] Mar, [facility] [address] [id number] [address] [place] [address], [place] [address] 22 Mar, 2014 [facility] [address] [id number] [address] [place] [address], [place] [address] 19 Mar, 2014 [facility] [address] [id number] [address] [place] [address], [place] [address] 19 Mar, 2014 [facility] [address] [id number] [address] [place] [address], [place] [address] Sep, [facility] [address] [id number] [address] [place] [address], [place] [address] 19 Sep, 2013 [facility] [address] [id number] [address] [place] [address], [place] [address] 13 Sep, 2013 [facility] [address] [id number] [address] [place] [address], [place] [address] Sep, [facility] [address] [id number] [address] [place] [address], [place] [address] Aug, [facility] [address] [id number] [address] [place] [address], [place] [address] Aug, [facility] [address] [id number] [address] [place] [address], [place] [address] Aug, [facility] [address] [id number] [address] [place] [address], [place] [address] Aug, [facility] [address] [id number] [address] [place] [address], [place] [address] Aug, [facility] [address] [id number] [address] [place] [address], [place] [address] Aug, [facility] [address] [id number] [address] [place] [address], [place] [address] Jul, [facility] [address] [id number] [address] [place] [address], [place] [address] Jul, [facility] [address] [id number] [address] [place] [address], [place] [address] Jul, [facility] [address] [id number] [address] [place] [address], [place] [address] Jul, [facility] [address] [id number] [address] [place] [address], [place] [address] Jun, [facility] [address] [id number] [address] [place] [id number] Jun, [facility] [address] [id number] [address] [place] [address], [place] [address] May, [facility] [address] [id number] [address] [place] [address], [place] [address] May, [facility] [facility] [address] [id number] [address] [place] [address] Apr, [facility] [address] [id number] [address] [place] [address], [place] [address] Apr, [facility] [address] [id number] [address] [place] [address], [place] [address] Apr, [facility] [address] [id number] [address] [place] [address], [place] [address] Mar, [facility] [address] [id number] [address] [place] [address], [place] [address] Mar, [facility] [address] [id number] [address] [place] [address], [place] [address] Mar, [facility] [address] [id number] [address] [place] [address], [place] [address] Mar, [facility] [address] [id number] [address] [place] [address], [place] [address] Feb, [facility] [address] [id number] [address] [place] [address], [place] [address] Jan, [facility] [address] [id number] [address] [place] [address], [place] [address] Jan, [facility] [address] [id number] [address] [place] [address], [place] [address] Jan, [facility] [address] [id number] [address] [place] [address], [place] [address] Jan, [facility] [address] [id number] [address] [place] [address], [place] [address] Dec, [facility] [address] [id number] [address] [place] [address], [place] [address] Dec, [facility] [address] [id number] [address] [place] [address], [place] [address] Dec, [facility] [address] [id number] [address] [place] [address], [place] [address] Dec, [facility] [address] [id number] [address] [place] [address], [place] [address] Dec, [facility] [address] [id number] [address] [place] [address], [place] [address] Dec, [facility] [address] [id number] [address] [place] [address], [place] [address] November, [facility] [address] [id number] [address] [place] [address], [place] [address] November, [facility] [address] [id number] [address] [place] [address], [place] [address] November, [facility] [address] [id number] [address] [place] [address], [place] [address] Oct, [facility] [address] [id number] [address] [place] [address], [place] [address] Oct, [facility] [address] [id number] [address] [place] [address], [place] [address] Sep, [facility] [address] [id number] [address] [place] [address], [place] [address] Sep, [facility] [address] [id number] [address] [place] [address], [place] [address] Sep, [facility] [address] [id number] [address] [place] [address], [place] [address] Sep, [facility] [address] [id number] [address] [place] [address], [place] [address] Sep, [facility] [address] [id number] [address] [place] [address], [place] [address] Aug, [facility] [address] [id number] [address] [place] [address], [place] [address] Aug, [facility] [address] [id number] [address] [place] [address], [place] [address] Aug, [facility] [address] [id number] [address] [place] [address], [place] [address] Aug, [facility] [address] [id number] [address] [place] [address], [place] [address] Aug, [facility] [address] [id number] [address] [place] [address], [place] [address] Jul, [facility] [address] [id number] [address] [place] [address], [place] [address] Jul, [facility] [address] [id number] [address] [place] [address], [place] [address] Jun, [facility] [address] [id number] [address] [place] [address], [place] [address] Jun, [facility] [address] [id number] [address] [place] [address], [place] [address] Jun, [facility] [address] [id number] [address] [place] [address], [place] [address] Jun, [facility] [address] [id number] [address] [place] [address], [place] [address] Jun, [facility] [address] [id number] [address] [place] [address], [place] [address] Jun, [facility] [address] [id number] [address] [place] [address], [place] [address] Jun, [facility] [address] [id number] [address] [place] [address], [place] [address] Jun, [facility] [address] [id number] [address] [place] [address], [place] [address] Jun, [facility] [address] [id number] [address] [place] [address], [place] [address] May, [facility] [address] [id number] [address] [place] [address], [place] [address] May, [facility] [address] [id number] [address] [place] [address], [place] [address] May, [facility] [address] [id number] [address] [place] [address] [address] May, [facility] [address] [id number] [address] [place] [address], [place] [address] May, [facility] [address] [id number] [address] [place] [address], [place] [address] May, [facility] [address] [id number] [address] [place] [address], [place] [address] May, [facility] [address] [id number] [address] [place] [address], [place] [address] Apr, [facility] [address] [id number] [address] [place] [address], [place] [address] Mar, [facility] [address] [id number] [address] [place] [address], [place] [address] Mar, [facility] [address] [id number] [address] [place] [address], [place] [address] Feb, [facility] [address] [id number] [address] [place] [address], [place] [address] Feb, [facility] [address] [id number] [address] [place] [address], [place] [address] Feb, [facility] [address] [id number] [address] [place] [address], [place] [address] Feb, [facility] [address] [id number] [address] [place] [address], [place] [address] Jan, [facility] [address] [id number] [address] [place] [address], [place] [address] Jan, [facility] [address] [id number] [address] [place] [address], [place] [address] Jan, [facility] [address] [id number] [address] [place] [address], [place] [address] Jan, [facility] [address] [id number] [address] [place] [address], [place] [address] Dec, [facility] [address] [id number] [address] [place] [address] 19 Dec, 2011 [facility] [address] [id number] [address] [place] [address], [place] [address] 17 Dec, 2011 [facility] [address] [id number] [address] [place] [address] 15 Dec, 2011 [facility] [address] [id number] [address] [place] [address] 13 Dec, 2011 [facility] [address] [id number] [address] [place] [address] Sep, [facility] [address] [id number] [address] [place] [address] Aug, [facility] [address] [id number] [address] [place] [address] Jul, [facility] [address] [id number] [address] [place] [address] 16 Jun, 2011 [facility] [address] [id number] [address] [place] [address] Jun, [facility] [address] [id number] [address] [place] [address] Jun, [facility] [address] [id number] [address] [place] [id number] 05 Jun, 2011 [facility] [address] [id number] [address] [place] [address] May, [facility] [address] [id number] [address] [place] [address] May, [facility] [address] [id number] [address] [place] [address] Apr, [facility] [address] [id number] [address] [place] [address] Jun, [facility] [address] [id number] [address] [place] [address] Apr, IMMUNIZATIONS Vaccine Route Administration Date Status PRIVATE PPSV23 (PNEUMOVAX) Unknown Aug 30, 2014 Admin istered SOCIAL HISTORY Never Assessed REASON FOR VISIT PLAN OF CARE VITAL SIGNS Height 66 in 2014-08-30 Weight 225.19 lbs 2014-08-30 Temperature 97 degrees Fahrenheit 2014-08-30 Heart Rate 98 bpm 2014-08-30 Respiratory Rate 22 2014-08-30 Blood pressure systolic 128 mmHg 2014-08-30 Blood pressure diastolic 72 mmHg 2014-08-30 MEDICATIONS Unknown Medications RESULTS No Results PROCEDURES [...] 11/2017 Hospitalization History pneumonia 10/07 Hospitalization History [facility] 03/09/19 Hospitalization History via adriana mcclellan. 07/17/19
--- OUTSIDE RECORDS SUMMARY | 2019-12-24 00:31 | XMS REPORT ---
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 Name Role Phone Migration, Doctor Unavailable Unavailable PROBLEMS Type Condition ICD9-CM Code CBB52-EB Code Onset Dates Condition S tatus SNOMED Code Problem Allergic rhinitis J30.9 Active 61 427894 Problem Urinary incontinence R32 Active 624785455 Problem Microcytic anemia D50.9 Active 23 6942586 Problem Hypothyroidism E03.9 Active 92466 008 Problem Gastroesophageal reflux disease without esophagitis K21.9 Active 339067411 Problem Essential hypertension I10 Active 16906191 Problem Tobacco abuse Z72.0 Active 740734 000 Problem Chronic bronchitis, unspecified chronic bronchitis type J42 Active 97056102 Problem On home oxygen therapy Z99.81 Active 169797123619 Problem Parotiditis K11.20 Active 50808753 Problem 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 Active 74507124 Problem Type 2 diabetes mellitus with other specified complication E11.69 Active 60306075 Problem Hyperlipidemia LDL goal <70 E78.5 Ac tive 96212512 Problem Morbid (severe) obesity due to excess calories E66 .01 Active 216157825 Problem Seasonal allergic rhinitis due to pollen J30.1 Active 25711211 ALLERGIES No Information ENCOUNTERS Encounter Location Date Diagnosis [facility] [address] [facility] [id number] [address] [place] [id number] 19 Sep, 2019 [facility] [address] [facility] [id number] [address] [place] [id number] 16 Sep, 2019 COPD (chronic obstructive pu lmonary disease) with emphysema J43.9 [facility] [address] [facility] [id number] [address] [place] [address] 02 Sep, 2019 [facility] [address] [facility] [id number] [address] [place] [phone] 07 Aug, 2019 [facility] [address] [facility] [id number] [address] Aug, Essential hypertension I10 [facility] [address] [facility] [id number] [address] [place] [address] Jul, Parotiditis K11.20 [facility] [address] [facility] [id number] [address] [place] [address] Jul, [facility] [address] [place] [id number] [address] [place] [address] Jul, Type II diabetes mellitus E1 1.9 [facility] [address] [facility] [id number] [address] [place] [address] Jul, [facility] [address] [place] [id number] [address] [place] [address] Jul, Pneumonia due to infectious organism, unspecified laterality, unspecified part of lung J18.9 ; On home oxygen therapy Z99.81 ; Type II diabetes mellitus E11.9 ; Tobacco use disorder F17.200 and Encounter for tobacco use cessation counseling Z71.6 [facility] [id number] [place] [address] Apr, [facility] [address] [place] [id number] [address] [place] [id number] 30 Mar, 2019 Acute non-recurrent frontal sinusitis J01.10 [facility] [address] [place] [id number] [address] [place] [phone] 17 Mar, 2019 Type 2 diabetes mellitus wit hout complications E11.9 [facility] [address] [facility] [id number] [address] [place] [phone] Mar, Type 2 diabetes mellitus wit hout complications E11.9 ; Essential hypertension I10 and Chronic bronchitis, unspecified chronic bronchitis type J42 [facility] [address] [facility] [id number] [address] [place] [address] Feb, [facility] [address] [place] [id number] [address] [place] [phone] Dec, [facility] [address] [place] [address] Dec, [facility] [address] [id number] [address] [place] [address] November, [facility] [address] [facility] 340B [id number] [address] November, [facility] [place] [place] [facility] [address] [place] [address] 340B [id number] [place] [address] November, [facility] [facility] [address] [place] [address] 340B [id number] [place] [address] November, Allergic rhinitis J30.9 [facility] [address] [id number] [address] [place] [address] November, [facility] [address] [id number] [address] [place] [address] November, [facility] [address] [id number] [address] [place] [address] November, [facility] [address] [id number] [address] [place] [phone] Oct, [facility] [address] [id number] [address] [place] [address] Oct, Essential hypertension I10 [facility] [address] [id number] [address] [place] [phone] Oct, [facility] [address] [id number] [address] [place] [address] Oct, [facility] [address] [id number] [address] [place] [address] Oct, [facility] [address] [id number] [address] [place] [address] Oct, [facility] [address] [id number] [address] [place] [address] Oct, [facility] [address] [id number] [address] [place] [address] Oct, Shortness of breath R06.02 a nd Oxygen decrease R09.02 [facility] [address] [facility] [id number] [address] [place] [address] Oct, [facility] [address] [facility] [id number] [address] [place] [address] Sep, COPD (chronic obstructive pu lmonary disease) with emphysema J43.9 ; On home oxygen therapy Z99.81 and Hypothyroidism E03.9 [place] [address] [facility] [id number] [address] [place] [address] Sep, [place] [address] [place] [id number] [place] [address] Sep, [place] [address] [address] Sep, Acute on chronic respiratory failure with hypoxia J96.21 ; Hypothyroidism E03.9 ; 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 ; Essential hypertension I10 ; Type 2 diabetes mellitus with other specified complication E11.69 ; 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 and Hyperlipidemia LDL goal <70 E78.5 [place] [address] [facility] [id number] [address] [place] [address] Sep, Allergic rhinitis J30.9 [place] [id number] [place] [id number] [address] [place] [address] Aug, Allergic rhinitis J30.9 [facility] [address] [facility] [id number] [address] [place] [phone] Aug, [facility] [address] [facility] [id number] [address] [place] [phone] Aug, [facility] [address] [place] [id number] [address] [place] [phone] Aug, [facility] [address] [place] [id number] [address] [place] [address] Jul, [place] [id number] [id number] [address] [place] [address] Jul, Type 2 diabetes mellitus wit h other specified complication E11.69 [facility] [address] [facility] [id number] [address] [place] [phone] Jun, [facility] [address] [facility] [id number] [address] [place] [address] May, Hyperlipidemia LDL goal <70 E78.5 ; 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 and Encounter for immunization Z23 [facility] [address] [facility] [id number] [address] [place] [phone] May, [facility] [address] [facility] [id number] [address] [place] [address] May, Acute upper respiratory infe ction J06.9 [facility] [address] [facility] [id number] [address] [place] [address] May, Essential hypertension I10 [facility] [address] [facility] [id number] [address] [place] [address] May, Essential hypertension I10 [facility] [address] [facility] [id number] [address] [place] [address] Apr, Essential hypertension I10 [facility] [address] [facility] [id number] [address] [place] [address] Apr, [facility] [address] [facility] [id number] [address] [place] [phone] Apr, COPD (chronic obstructive pu lmonary disease) with emphysema J43.9 [facility] [address] [facility] [id number] [address] [place] [phone] Apr, [facility] [address] [facility] [id number] [address] [place] [phone] Mar, [facility] [address] [facility] [id number] [address] [place] [address] Feb, Type 2 diabetes mellitus wit h other specified complication E11.69 ; 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 [...] Seasonal allergic rhinitis due to pollen J30.1 [place] [address] [place] [id number] [address] [place] [phone] November, 2018 Pneumonia of right lower lob [...] without esophagitis K21.9 and Allergic rhinitis J30.9 [place] [address] [place] [id number] [address] [place] [address] November, [place] [address] [place] [id number] [address] [place] [address] Sep, [place] [address] [place] [id number] [address] [place] [address] Sep, [place] [address] [place] [id number] [address] [place] [phone] Sep, [place] [address] [place] [id number] [address] [place] [address] Sep, [facility] [address] [place] [id number] [address] [place] [phone] Jul, Encounter for immunization Z 23 [facility] [address] [place] [id number] [address] [place] [address] Jun, Subacute maxillary sinusitis J01.00 [facility] [address] [facility] [id number] [address] [place] [phone] May, [facility] [address] [place] [id number] [address] [place] [phone] May, [facility] [address] [place] [id number] [address] [place] [phone] May, Type II diabetes mellitus E1 1.9 ; Hypothyroidism E03.9 ; 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 ; Cough R05 ; COPD with exacerbation J44.1 and Pneumonia of right lower lobe due to infectious organism J18.1 [place] [address] [place] [id number] [place] [address] Mar, Hyperlipidemia, unspecified hyperlipidemia type E78.5 [place] [address] [place] [id number] [place] [address] Mar, Hypothyroidism E03.9 and Hyp erlipidemia, unspecified hyperlipidemia type E78.5 [place] [address] [place] [id number] [address] [place] [address] Feb, Type II diabetes mellitus E1 1.9 [...] full remission F33.42 and Urinary incontinence R32 [facility] [address] [facility] [id number] [address] [place] [phone] Jan, [facility] [address] [place] [id number] [address] [place] [address] Jan, [facility] [address] [place] [id number] [address] [place] [address] November, [facility] [address] [place] [id number] [address] [place] [address] Sep, Type II diabetes mellitus E1 1.9 [...] and Tinea pedis of both feet B35.[address] [address] Jun, [facility] [address] [place] [address] Jun, Acute upper respiratory infe ction, unspecified J06.9 and Other viral agents as the cause of diseases classified elsewhere B97.[address] [address] May, [address] [address] May, Type 2 diabetes mellitus wit h [...] thrush B37.0 and Encounter for immunization Z23 [address] [address] Apr, [address] [address] Apr, [address] [address] Mar, [address] [address] Dec, [facility] [address] [place] [id number] [address] [place] [address] Dec, [facility] [address] [address] Dec, Encounter for well woman gurinder jaime with routine gynecological exam Z01.419 ; Encounter for screening for malignant neoplasm of cervix Z12.4 ; Screening mammogram, encounter for Z12.31 ; Encounter for screening breast examination Z12.39 ; On home oxygen therapy Z99.81 ; 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 ; Heat rash L74.0 ; Type II diabetes mellitus E11.9 and Hypothyroidism E03.9 [facility] [address] [address] November, [place] [address] [address] November, Type II diabetes mellitus E1 1.9 ; Allergic rhinitis J30.9 ; Hypothyroidism E03.9 ; Obesity due to excess calories E66.09 ; Urinary incontinence R32 ; Gastroesophageal reflux disease without esophagitis K21.9 and Essential hypertension I10 [facility] [address] [address] Oct, [facility] [address] [address] Sep, [facility] [address] [address] Sep, [facility] [address] [facility] [id number] [address] [place] [address] Aug, Acute maxillary sinusitis J0 1.00 [facility] [address] [address] Aug, [facility] [address] [address] Aug, [facility] [address] [place] [address] 16 Aug, 2015 Type II diabetes mellitus E1 1.9 [place] [address] [address] 05 Aug, 2015 Type II diabetes mellitus E1 1.9 ; Hypothyroidism E03.9 ; 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 ; Obesity due to excess calories E66.09 ; Urinary incontinence R32 ; Anemia D64.9 ; Microcytic anemia D50.9 and Allergic rhinitis J30.9 [place] [address] [address] May, Upper respiratory symptom R0 9.89 [place] [address] [address] May, Oral thrush B37.0 [place] [address] [address] Apr, Hypothyroidism E03.9 and Harish rocytic anemia D50.9 [place] [address] [address] Apr, Encounter for long-term curr ent use of medication Z79.899 ; Hypothyroidism E03.9 ; Microcytic anemia D50.9 ; Type 2 diabetes mellitus without complication E11.9 ; Essential hypertension I10 and Mixed incontinence N39.46 [place] [address] [address] Apr, [place] [address] [address] Mar, [place] [address] [address] Mar, [place] [address] [address] Mar, [place] [address] [address] Mar, [place] [address] [place] [id number] [place] [phone] 08 Mar, 2015 [facility] [address] [facility] [id number] [address] [place] [address] Mar, [facility] [address] [facility] [id number] [address] [place] [address] Mar, [facility] [address] [facility] [id number] [address] [place] [address] Feb, Cough 786.2 ; Wheezing 786.0 7 ; Hypothyroidism 244.9 and Encounter for long-term current use of medication V58.69 [facility] [address] [facility] [id number] [address] [place] [address] Feb, Diabetes type 2, uncontrolle d 250.02 ; Depression 311 ; Encounter for long-term current use of medication V58.69 and Hypothyroidism 244.9 [facility] [address] [facility] [id number] [address] [place] [address] Feb, [facility] [address] [facility] [id number] [address] [place] [address] Jan, [facility] [address] [facility] [id number] [address] [place] [address] Oct, [facility] [address] [facility] [id number] [address] [place] [phone] Oct, [facility] [address] [facility] [id number] [address] [place] [address] Oct, [facility] [address] [facility] [id number] [address] [place] [phone] Sep, [facility] [address] [facility] [id number] [address] [place] [phone] Sep, [facility] [address] [facility] [id number] [address] [place] [phone] Sep, [facility] [address] [facility] [id number] [address] [place] [phone] Aug, [facility] [address] [id number] [address] [place] [address], [place] [address] Aug, [facility] [address] [id number] [address] [place] [address], [place] [address] Jul, [facility] [address] [id number] [address] [place] [address], [place] [address] Jul, [facility] [address] [id number] [address] [place] [address], [place] [address] Jul, [facility] [address] [id number] [address] [place] [address], [place] [address] Jul, [facility] [address] [id number] [address] [place] [address], [place] [address] Jul, [facility] [address] [id number] [address] [place] [address], [place] [address] Jul, [facility] [address] [id number] [address] [place] [address], [place] [address] Jul, [facility] [address] [id number] [address] [place] [address], [place] [address] Jul, [facility] [address] [id number] [address] [place] [address], [place] [address] Jun, [facility] [address] [id number] [address] [place] [address], [place] [address] Jun, [facility] [address] [id number] [address] [place] [phone] May, [facility] [address] [id number] [address] [place] [address], [place] [address] May, [facility] [address] [id number] [address] [place] [address], [place] [address] May, [facility] [address] [id number] [address] [place] [address], [place] [address] Apr, [facility] [address] [id number] [address] [place] [phone] Apr, [facility] [address] [id number] [address] [place] [address], [place] [address] Apr, [facility] [address] [id number] [address] [place] [address], [place] [address] Apr, [facility] [address] [id number] [address] [place] [address], [place] [address] Apr, [facility] [address] [id number] [address] [place] [address], [place] [address] Apr, [facility] [address] [id number] [address] [place] [address], [place] [address] Mar, [facility] [address] [id number] [address] [place] [address], [place] [address] Mar, [facility] [address] [id number] [address] [place] [address], [place] [address] Mar, [facility] [address] [id number] [address] [place] [address], [place] [address] Mar, [facility] [address] [id number] [address] [place] [address], [place] [address] Sep, [facility] [address] [id number] [address] [place] [address], [place] [address] Sep, [facility] [address] [id number] [address] [place] [address], [place] [address] Sep, [facility] [address] [id number] [address] [place] [address], [place] [address] Sep, [facility] [address] [id number] [address] [place] [address], [place] [address] Aug, [facility] [address] [id number] [address] [place] [address], [place] [address] Aug, [facility] [address] [id number] [address] [place] [address], [place] [address] Aug, [facility] [address] [id number] [address] [place] [address], [place] [address] Aug, [facility] [address] [id number] [address] [place] [address], [place] [address] Aug, [facility] [address] [id number] [address] [place] [address], [place] [address] Aug, [facility] [address] [id number] [address] [place] [address], [place] [address] Jul, [facility] [address] [id number] [address] [place] [address], [place] [address] Jul, [facility] [address] [id number] [address] [place] [address], [place] [address] Jul, [facility] [address] [id number] [address] [place] [address], [place] [address] Jul, [facility] [address] [id number] [address] [place] [address], [place] [address] Jun, [facility] [address] [id number] [address] [place] [address], [place] [address] Jun, [facility] [address] [id number] [address] [place] [address], [place] [address] May, [facility] [address] [id number] [address] [place] [address], [place] [address] May, [facility] [address] [id number] [address] [place] [address], [place] [address] Apr, [facility] [address] [id number] [address] [place] [address], [place] [address] Apr, [facility] [address] [id number] [address] [place] [address], [place] [address] Apr, [facility] [address] [id number] [address] [place] [address], [place] [address] Mar, [facility] [address] [id number] [address] [place] [address], [place] [address] Mar, [facility] [address] [id number] [address] [place] [address], [place] [address] Mar, [facility] [address] [id number] [address] [place] [address], [place] [address] Mar, [facility] [address] [id number] [address] [place] [address], [place] [address] Feb, [facility] [address] [id number] [address] [place] [address], [place] [address] Jan, [facility] [address] [id number] [address] [place] [address], [place] [address] Jan, [facility] [address] [id number] [address] [place] [address], [place] [address] Jan, [facility] [address] [id number] [address] [place] [address], [place] [address] Jan, [facility] [address] [id number] [address] [place] [address], [place] [address] Dec, [facility] [address] [id number] [address] [place] [address], [place] [address] Dec, [facility] [address] [id number] [address] [place] [address], [place] [address] Dec, [facility] [address] [id number] [address] [place] [address], [place] [address] Dec, [facility] [address] [id number] [address] [place] [address], [place] [address] Dec, [facility] [address] [id number] [address] [place] [address], [place] [address] Dec, [facility] [address] [id number] [address] [place] [address], [place] [address] November, [facility] [address] [id number] [address] [place] [address], [place] [address] November, [facility] [address] [id number] [address] [place] [address], [place] [address] November, [facility] [address] [id number] [address] [place] [address], [place] [address] 24 Oct, 2012 [facility] [address] [id number] [address] [place] [address], [place] [address] Oct, [facility] [address] [id number] [address] [place] [address], [place] [address] Sep, [facility] [address] [id number] [address] [place] [address], [place] [address] Sep, [facility] [address] [id number] [address] [place] [address], [place] [address] Sep, [facility] [address] [id number] [address] [place] [address], [place] [address] Sep, [facility] [address] [id number] [address] [place] [address], [place] [address] Sep, [facility] [address] [id number] [address] [place] [address], [place] [address] Aug, [facility] [address] [id number] [address] [place] [address], [place] [address] Aug, [facility] [address] [id number] [address] [place] [address], [place] [address] Aug, [facility] [address] [id number] [address] [place] [address], [place] [address] Aug, [facility] [address] [id number] [address] [place] [address], [place] [address] Aug, [facility] [address] [id number] [address] [place] [address], [place] [address] Jul, [facility] [address] [id number] [address] [place] [address], [place] [address] Jul, [facility] [address] [id number] [address] [place] [address] [address] Jun, [facility] [address] [id number] [address] [place] [address], [place] [address] Jun, [facility] [address] [id number] [address] [place] [address], [place] [address] Jun, [facility] [address] [id number] [address] [place] [address], [place] [address] Jun, [facility] [address] [id number] [address] [place] [address], [place] [address] Jun, [facility] [address] [id number] [address] [place] [address], [place] [address] Jun, [facility] [address] [id number] [address] [place] [address], [place] [address] Jun, [facility] [address] [id number] [address] [place] [address], [place] [address] Jun, [facility] [address] [id number] [address] [place] [address], [place] [address] Jun, [facility] [address] [id number] [address] [place] [address], [place] [address] May, [facility] [address] [id number] [address] [place] [address], [place] [address] May, [facility] [address] [id number] [address] [place] [address], [place] [address] May, [facility] [address] [id number] [address] [place] [address], [place] [address] May, [facility] [address] [id number] [address] [place] [address], [place] [address] May, [facility] [address] [id number] [address] [place] [address], [place] [address] May, [facility] [address] [id number] [address] [place] [address], [place] [address] May, [facility] [address] [id number] [address] [place] [address], [place] [address] Apr, [facility] [address] [id number] [address] [place] [address], [place] [address] Mar, [facility] [address] [id number] [address] [place] [address], [place] [address] 07 Mar, 2012 [facility] [address] [id number] [address] [place] [address], [place] [address] Feb, [facility] [address] [id number] [address] [place] [address], [place] [address] Feb, [facility] [address] [id number] [address] [place] [address], [place] [address] Feb, [facility] [address] [id number] [address] [place] [address], [place] [address] Feb, [facility] [address] [id number] [address] [place] [address], [place] [address] Jan, [facility] [address] [id number] [address] [place] [address], [place] [address] Jan, [facility] [address] [id number] [address] [place] [address], [place] [address] Jan, [facility] [address] [id number] [address] [place] [address], [place] [address] Jan, [facility] [address] [id number] [address] [place] [address], [place] [address] Dec, [facility] [address] [id number] [address] [place] [address], [place] [address] 19 Dec, 2011 [facility] [address] [id number] [address] [place] [address], [place] [address] 17 Dec, 2011 [facility] [address] [id number] [address] [place] [address], [place] [address] 15 Dec, 2011 [facility] [address] [id number] [address] [place] [address], [place] [address] 13 Dec, 2011 [facility] [address] [id number] [address] [place] [address] Sep, [facility] [address] [id number] [address] [place] [address] Aug, [facility] [address] [id number] [address] [place] [address] Jul, [facility] [address] [id number] [address] [place] [address] Jun, [facility] [address] [id number] [address] [place] [id number] Jun, [facility] [address] [id number] [address] [place] [address] Jun, [facility] [address] [id number] [address] [place] [address] Jun, [facility] [address] [id number] [address] [place] [address] May, [facility] [address] [id number] [address] [place] [address] May, [facility] [address] [id number] [address] [place] [address] Apr, [facility] [address] [id number] [address] [place] [id number] Jun, [facility] [address] [id number] [address] [place] [address] Apr, IMMUNIZATIONS No Known Immunizations SOCIAL HISTORY Never Assessed REASON FOR VISIT PLAN OF CARE VITAL SIGNS Height 66 in 2013-04-01 Weight 260.54 lbs 2013-04-01 Temperature 98.6 degrees Fahrenheit 2013-04-01 Heart Rate 98 bpm 2013-04-01 Respiratory Rate 20 2013-04-01 Blood pressure systolic 130 mmHg 2013-04-01 Blood pressure diastolic 76 mmHg 2013-04-01 MEDICATIONS Unknown Medications RESULTS No Results PROCEDURES Procedure Date Ordered Result Body Site ASSAY THYROID STIM HORMONE Apr 01, 2013 GLYCATED HEMOGLOBIN TEST Apr 01, 2013 LIPID PANEL Apr 01, 2013 COMPREHEN METABOLIC PANEL Apr 01, 2013 VENIPUNCT, ROUTINE* Apr 01, 2013 INSTRUCTIONS MEDICATIONS ADMINISTERED No Known Medications MEDICAL [...] 11/2017 Hospitalization History pneumonia 10/07 Hospitalization History [facility] 03/09/19 Hospitalization History via [email or web address] 07/17/19
--- OUTSIDE RECORDS SUMMARY | 2019-12-24 00:31 | XMS REPORT ---
Author Author Don Jay Doctor Organization [facility] Address Unknown Phone Unavailable Care Team Providers Care Olericulture Professor Name Role Phone Migration, Doctor Unavailable Unavailable PROBLEMS Type Condition ICD9-CM Code UCO41-OS Code Onset Dates Condition S tatus SNOMED Code Problem Allergic rhinitis J30.9 Active 61 631557 Problem Urinary incontinence R32 Active 869332239 Problem Microcytic anemia D50.9 Active 23 5965898 Problem Hypothyroidism E03.9 Active 41667 008 Problem Gastroesophageal reflux disease without esophagitis K21.9 Active 787373311 Problem Essential hypertension I10 Active 93211780 Problem Tobacco abuse Z72.0 Active 168254 000 Problem Chronic bronchitis, unspecified chronic bronchitis type J42 Active 02221430 Problem On home oxygen therapy Z99.81 Active 570742278281 Problem Parotiditis K11.20 Active 69223385 Problem 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 Active 20212180 Problem Type 2 diabetes mellitus with other specified complication E11.69 Active 36003249 Problem Hyperlipidemia LDL goal <70 E78.5 Ac tive 52046812 Problem Morbid (severe) obesity due to excess calories E66 .01 Active 979920721 Problem Seasonal allergic rhinitis due to pollen J30.1 Active 20988841 ALLERGIES No Information ENCOUNTERS Encounter Location Date Diagnosis [facility] [place] [id number] [place] [address] Sep, [facility] [id number] [place] [address] 16 Sep, 2019 COPD (chronic obstructive pulmonary dise ase) with emphysema J43.9 [facility] [id number] [place] [address] 02 Sep, 2019 [place] [address] [id number] [place] [address] 07 Aug, 2019 [facility] [address] [id number] [place] [address] Aug, Essential hypertension I10 [facility] [address] [facility] [id number] [place] [address] Jul, Parotiditis K11.20 [facility] [address] [address] Jul, [facility] [address] [address] Jul, Type II diabetes mellitus E11.9 [facility] [address] [address] Jul, [facility] [address] [address] Jul, Pneumonia due to infectious organism, un specified laterality, unspecified part of lung J18.9 ; On home oxygen therapy Z99.81 ; Type II diabetes mellitus E11.9 ; Tobacco use disorder F17.200 and Encounter for tobacco use cessation counseling Z71.6 [facility] [address] [address] Apr, [facility] [address] [facility] [id number] [address] [address] Mar, Acute non-recurrent frontal sinusitis J01.10 [facility] [address] [address] 17 Mar, 2019 Type 2 diabetes mellitus without complic ations E11.9 [facility] [address] [address] Mar, Type 2 diabetes mellitus without complic ations E11.9 ; Essential hypertension I10 and Chronic bronchitis, unspecified chronic bronchitis type J42 [facility] [place] [address] [address] Feb, [facility] [address] [address] Dec, [facility] [address] [address] Dec, [place] [address] [id number] [place] [address] November, [facility] [address] [facility] [address] [place] [address] November, [facility] [place] [address] [facility] [address] [place] [address] November, [facility] [place] [address] [place] [address] November, Allergic rhinitis J30.9 [facility] [id number] [place] [address] November, [facility] [id number] [place] [address] November, [facility] [id number] [place] [address] November, [facility] [id number] [place] [address] Oct, [facility] [id number] [place] [address] Oct, Essential hypertension I10 [facility] [id number] [place] [address] Oct, [facility] [id number] [place] [address] Oct, [facility] [address] [id number] [place] [address] Oct, [facility] [id number] [place] [address] Oct, [facility] [address] [id number] [place] [address] Oct, [facility] [address] [facility] [id number] [address] [place] [address] Oct, Shortness of breath R06.02 a nd Oxygen decrease R09.02 [facility] [address] [id number] [place] [address] Oct, [facility] [address] [place] [address] Sep, COPD (chronic obstructive pulmonary dise ase) with emphysema J43.9 ; On home oxygen therapy Z99.81 and Hypothyroidism E03.9 [facility] [address] [place] [address] Sep, [facility] [place] [address] [address] Sep, [facility] [address] [address] Sep, Acute on chronic respiratory failure wit h hypoxia J96.21 ; Hypothyroidism E03.9 ; COPD (chronic obstructive pulmonary disease) with emphysema J43.9 ; Essential hypertension I10 ; Type 2 diabetes mellitus with other specified complication E11.69 ; intermediate current use of insulin Z79.4 and Hyperlipidemia LDL goal <70 E78.5 [facility] [address] [address] Sep, Allergic rhinitis J30.9 [facility] [place] [address] [address] Aug, Allergic rhinitis J30.9 [facility] [place] [address] [address] Aug, [facility] [place] [address] [address] Aug, [facility] [place] [address] [address] Aug, [facility] [place] [address] [address] Jul, [facility] [place] [address] [address] Jul, Type 2 diabetes mellitus with other spec ified complication E11.69 [facility] [place] [address] [address] Jun, [facility] [place] [address] [place] [address] May, Hyperlipidemia LDL goal <70 E78.5 ; COPD (chronic obstructive pulmonary disease) with emphysema J43.9 and Encounter for immunization Z23 [facility] [id number] [place] [address] May, [facility] [address] [facility] [id number] [address] [place] [address] May, Acute upper respiratory infe ction J06.9 [facility] [address] [address] May, Essential hypertension I10 [place] [address] [address] May, Essential hypertension I10 [place] [address] [address] Apr, Essential hypertension I10 [facility] [place] [address] [address] Apr, [facility] [address] [address] Apr, COPD (chronic obstructive pulmonary dise ase) with emphysema J43.9 [facility] [address] [address] Apr, [place] [address] [address] Mar, [facility] [address] [address] Feb, Type 2 diabetes mellitus with other spec ified complication E11.69 ; intermediate current use of insulin Z79.4 ; Essential hypertension I10 ; Hyperlipidemia LDL goal <70 E78.5 ; COPD (chronic obstructive pulmonary disease) with emphysema J43.9 ; Microcytic anemia D50.9 ; Morbid (severe) obesity due to excess calories E66.01 ; Body mass index (BMI) of 39.0-39.9 in adult Z68.39 ; Hypothyroidism E03.9 and Seasonal allergic rhinitis due to pollen J30.1 [facility] [address] [address] 15 Nov, 2017 Pneumonia of right lower lobe due to inf ectious organism J18.1 ; 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 ; Type [...] without esophagitis K21.9 and Allergic rhinitis J30.9 [place] [place] [address] [address] November, [place] [address] [address] Sep, [facility] [place] [address] [address] Sep, [place] [address] [address] Sep, [place] [address] [address] Sep, [facility] [address] [place] [address] Jul, Encounter for immunization Z 23 [facility] [id number] [place] [address] Jun, Subacute maxillary sinusitis J01.00 [place] [address] [address] May, [place] [address] [address] May, [place] [address] [address] May, Type II diabetes mellitus E11.9 ; Hypoth yroidism E03.9 ; COPD (chronic obstructive pulmonary disease) with emphysema J43.9 ; Cough R05 ; COPD with exacerbation J44.1 and Pneumonia of right lower lobe due to infectious organism J18.1 [facility] [place] [address] [address] 08 Mar, 2017 Hyperlipidemia, unspecified hyperlipidem ia type E78.5 [place] [address] [address] Mar, Hypothyroidism E03.9 and Hyperlipidemia, unspecified hyperlipidemia type E78.5 [place] [address] [address] Feb, Type II diabetes mellitus E11.9 ; Hypoth yroidism E03.9 ; COPD (chronic obstructive pulmonary disease) with emphysema J43.9 ; Obesity due to excess calories E66.09 ; Allergic rhinitis J30.9 ; Microcytic anemia D50.9 ; Gastroesophageal reflux disease without esophagitis K21.9 ; Essential hypertension I10 ; Hyperlipidemia, unspecified hyperlipidemia type E78.5 ; Recurrent major depressive disorder, in full remission F33.42 and Urinary incontinence R32 [place] [place] [address] [address] Jan, [place] [address] [address] Jan, [place] [address] [address] November, [place] [address] [address] Sep, Type II diabetes mellitus E11.9 ; Hypoth yroidism E03.9 ; On home oxygen therapy Z99.81 ; Gastroesophageal reflux disease without esophagitis K21.9 ; Recurrent major depressive disorder, in full remission F33.42 ; Essential hypertension I10 ; COPD (chronic obstructive pulmonary disease) with emphysema J43.9 ; Urinary incontinence R32 ; Anemia D64.9 ; Allergic rhinitis J30.9 ; Hyperlipidemia, unspecified hyperlipidemia type E78.5 and Tinea pedis of both feet B35.[address] [place] [address] 13 Jun, 2016 [facility] [address] [facility] [id number] [address] [place] [address] Jun, Acute upper respiratory infe ction, unspecified J06.9 and Other viral agents as the cause of diseases classified elsewhere B97.89 [facility] [address] [address] May, [place] [place] [address] [address] May, Type 2 diabetes mellitus with hyperglyce jasmina E11.65 ; Hypothyroidism E03.9 ; Obesity due to excess calories E66.09 ; Allergic rhinitis J30.9 ; Dysuria R30.0 ; 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 ; Gastroesophageal reflux disease without esophagitis K21.9 ; Urinary incontinence R32 ; Essential hypertension I10 ; Hyperlipidemia, unspecified hyperlipidemia type E78.5 ; Microcytic anemia D50.9 ; Oral thrush B37.0 and Encounter for immunization Z23 [facility] [address] [address] Apr, [place] [address] [address] Apr, [place] [address] [address] Mar, [place] [place] [address] [address] Dec, [place] [address] [address] Dec, [address] [address] Dec, Encounter for well woman exam with lalito rojas gynecological exam Z01.419 ; Encounter for screening for malignant neoplasm of cervix Z12.4 ; Screening mammogram, encounter for Z12.31 ; Encounter for screening breast examination Z12.39 ; On home oxygen therapy Z99.81 ; COPD (chronic obstructive pulmonary disease) with emphysema J43.9 ; Heat rash L74.0 ; Type II diabetes mellitus E11.9 and Hypothyroidism E03.9 [facility] [address] [address] November, [facility] [address] [address] November, Type II diabetes mellitus E11.9 ; Allerg ic rhinitis J30.9 ; Hypothyroidism E03.9 ; Obesity due to excess calories E66.09 ; Urinary incontinence R32 ; Gastroesophageal reflux disease without esophagitis K21.9 and Essential hypertension I10 [facility] [place] [address] [address] Oct, [place] [address] [address] Sep, [facility] [address] [address] Sep, [facility] [address] [facility] [id number] [place] [address] Aug, Acute maxillary sinusitis J0 1.00 [place] [address] [address] Aug, [facility] [address] [address] Aug, [place] [place] [address] [address] Aug, Type II diabetes mellitus E11.9 [facility] [place] [address] [address] 05 Aug, 2015 Type II diabetes mellitus E11.9 ; Hypoth yroidism E03.9 ; COPD (chronic obstructive pulmonary disease) with emphysema J43.9 ; Obesity due to excess calories E66.09 ; Urinary incontinence R32 ; Anemia D64.9 ; Microcytic anemia D50.9 and Allergic rhinitis J30.9 [facility] [address] [address] 11 May, 2015 Upper respiratory symptom R09.89 [place] [place] [address] [address] May, Oral thrush B37.0 [facility] [place] [address] [address] Apr, Hypothyroidism E03.9 and Microcytic anem ia D50.9 [facility] [place] [address] [address] Apr, Encounter for long-term current use of m edication Z79.899 ; Hypothyroidism E03.9 ; Microcytic anemia D50.9 ; Type 2 diabetes mellitus without complication E11.9 ; Essential hypertension I10 and Mixed incontinence N39.46 [facility] [place] [address] [address] Apr, [place] [place] [address] [address] Mar, [facility] [place] [address] [address] Mar, [place] [address] [address] Mar, [place] [address] [address] Mar, [facility] [address] [address] Mar, [place] [address] [address] Mar, [place] [address] [address] Mar, [facility] [place] [address] [address] Feb, Cough 786.2 ; Wheezing 786.07 ; Hypothyr oidism 244.9 and Encounter for long-term current use of medication V58.69 [facility] [place] [address] [address] 13 Aug, 2015 Diabetes type 2, uncontrolled 250.02 ; D epression 311 ; Encounter for long-term current use of medication V58.69 and Hypothyroidism 244.9 [facility] [id number] [place] [address] Feb, [facility] [id number] [place] [address] Jan, [facility] [address] [address] Oct, [facility] [address] [address] Oct, [facility] [address] [address] Oct, [facility] [address] [address] Sep, [facility] [address] [address] Sep, [facility] [address] [address] Sep, [facility] [address] [address] Aug, [facility] [address] [address] Aug, [facility] [id number] [place] [address] Jul, [facility] [id number] [place] [address] Jul, [facility] [id number] [place] [address] Jul, [facility] [address] [place] [address] Jul, [facility] [id number] [place] [address] Jul, [facility] [address] [place] [address] Jul, [facility] [address] [id number] [place] [address] Jul, [facility] [address] [id number] [place] [address] Jul, [facility] [address] [id number] [place] [address] Jun, [facility] [address] [id number] [place] [address] Jun, [facility] [address] [id number] [place] [address] May, [facility] [address] [id number] [place] [address] May, [facility] [address] [id number] [place] [address] May, [facility] [address] [id number] [place] [address] Apr, [facility] [address] [id number] [place] [address] Apr, [facility] [address] [id number] [place] [address] Apr, [facility] [address] [id number] [place] [address] Apr, [facility] [address] [id number] [place] [address] Apr, [facility] [address] [id number] [place] [address] Apr, [facility] [address] [id number] [place] [address] Mar, [facility] [address] [id number] [place] [address] Mar, [facility] [address] [id number] [place] [address] 19 Mar, 2014 [facility] [address] [id number] [place] [address] Mar, [facility] [address] [facility] [id number] [place] [address] Sep, [facility] [address] [id number] [place] [address] Sep, [facility] [address] [id number] [place] [address] Sep, [facility] [address] [id number] [place] [address] Sep, [facility] [address] [id number] [place] [address] Aug, [facility] [address] [id number] [place] [address] Aug, [facility] [address] [id number] [place] [address] Aug, [facility] [address] [id number] [place] [address] Aug, [facility] [address] [id number] [place] [address] Aug, [facility] [address] [id number] [place] [address] Aug, [facility] [address] [id number] [place] [address] Jul, [facility] [address] [id number] [place] [address] Jul, [facility] [address] [id number] [place] [address] Jul, [facility] [address] [id number] [place] [address] Jul, [facility] [address] [id number] [place] [address] Jun, [facility] [address] [id number] [place] [address] Jun, [facility] [address] [id number] [place] [address] May, [facility] [address] [id number] [place] [address] May, [facility] [address] [id number] [place] [address] Apr, [facility] [address] [id number] [place] [address] Apr, [facility] [address] [facility] [id number] [place] [address] Apr, [facility] [address] [id number] [place] [address] Mar, [facility] [address] [id number] [place] [address] Mar, [facility] [address] [id number] [place] [address] Mar, [facility] [address] [id number] [place] [address] Mar, [facility] [address] [id number] [place] [address] Feb, [facility] [address] [id number] [place] [address] Jan, [facility] [address] [id number] [place] [address] Jan, [facility] [address] [id number] [place] [address] Jan, [facility] [address] [id number] [place] [address] Jan, [facility] [address] [id number] [place] [address] Dec, [facility] [address] [id number] [place] [address] Dec, [facility] [address] [id number] [place] [address] Dec, [facility] [address] [facility] [id number] [facility] [place] [address] Dec, [facility] [address] [id number] [place] [address] Dec, [facility] [address] [id number] [place] [address] Dec, [facility] [address] [id number] [place] [address] November, [facility] [address] [id number] [place] [address] November, [facility] [address] [id number] [place] [address] November, [facility] [address] [id number] [place] [address] Oct, [facility] [address] [id number] [place] [address] Oct, [facility] [address] [id number] [place] [address] Sep, [facility] [address] [id number] [place] [address] Sep, [facility] [address] [id number] [place] [address] Sep, [facility] [address] [id number] [place] [address] Sep, [facility] [address] [id number] [place] [address] Sep, [facility] [address] [id number] [place] [address] Aug, [facility] [address] [id number] [place] [address] Aug, [facility] [address] [id number] [place] [address] Aug, [facility] [address] [id number] [place] [address] 07 Aug, 2012 [facility] [address] [id number] [place] [address] 04 Aug, 2012 [facility] [address] [id number] [place] [address] Jul, [facility] [address] [id number] [place] [address] 08 Jul, 2012 [facility] [address] [id number] [place] [address] Jun, [facility] [address] [id number] [place] [address] Jun, [facility] [address] [id number] [place] [address] Jun, [facility] [address] [id number] [place] [address] Jun, [facility] [address] [id number] [place] [address] Jun, [facility] [address] [id number] [place] [address] Jun, [facility] [address] [id number] [place] [address] Jun, [facility] [address] [id number] [place] [address] Jun, [facility] [address] [id number] [place] [address] Jun, [facility] [address] [id number] [place] [address] May, [facility] [address] [id number] [place] [address] May, [facility] [address] [id number] [place] [address] May, [facility] [address] [id number] [place] [address] May, [facility] [address] [id number] [place] [address] May, [facility] [address] [id number] [place] [address] May, [facility] [address] [id number] [place] [address] May, [facility] [address] [id number] [place] [address] Apr, [facility] [address] [id number] [place] [address] Mar, [facility] [address] [id number] [place] [address] Mar, [facility] [address] [id number] [place] [address] Feb, [facility] [address] [id number] [place] [address] Feb, [facility] [address] [id number] [place] [address] Feb, [facility] [address] [id number] [place] [address] Feb, [facility] [address] [id number] [place] [address] Jan, [facility] [address] [id number] [place] [address] Jan, [facility] [address] [id number] [place] [address] Jan, [facility] [address] [id number] [place] [address] Jan, [facility] [address] [id number] [place] [address] Dec, [facility] [address] [id number] [place] [address] Dec, [facility] [id number] [place] [address] 17 Dec, 2011 [facility] [id number] [place] [address] Dec, [facility] [id number] [place] [address] 13 Dec, 2011 [facility] [id number] [place] [address] Sep, [facility] [id number] [place] [address] Aug, [facility] [id number] [place] [address] Jul, [facility] [id number] [place] [address] Jun, [facility] [id number] [place] [address] Jun, [facility] [id number] [place] [address] Jun, [facility] [id number] [place] [address] Jun, [facility] [id number] [place] [address] May, [facility] [id number] [place] [address] May, [facility] [id number] [place] [address] Apr, [facility] [id number] [place] [address] Jun, [facility] [address] [address] Apr, IMMUNIZATIONS No Known Immunizations SOCIAL HISTORY [...] 11/2017 Hospitalization History pneumonia 10/07 Hospitalization History [facility] 03/09/19 Hospitalization History via [facility]. 07/17/19
--- OUTSIDE RECORDS SUMMARY | 2019-12-24 00:31 | XMS REPORT ---
Author Author Don Jay Doctor Organization [facility] Address Unknown Phone Unavailable Care Team Providers Care Technical Supervisor Name Role Phone Migration, Doctor Unavailable Unavailable PROBLEMS Type Condition ICD9-CM Code GGV18-UP Code Onset Dates Condition S tatus SNOMED Code Problem Allergic rhinitis J30.9 Active 61 815050 Problem Urinary incontinence R32 Active 501822675 Problem Microcytic anemia D50.9 Active 23 9727257 Problem Hypothyroidism E03.9 Active 55318 008 Problem Gastroesophageal reflux disease without esophagitis K21.9 Active 456126509 Problem Essential hypertension I10 Active 83798535 Problem Tobacco abuse Z72.0 Active 835913 000 Problem Chronic bronchitis, unspecified chronic bronchitis type J42 Active 87973601 Problem On home oxygen therapy Z99.81 Active 870367724834 Problem Parotiditis K11.20 Active 03325122 Problem 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 Active 57877121 Problem Type 2 diabetes mellitus with other specified complication E11.69 Active 30856039 Problem Hyperlipidemia LDL goal <70 E78.5 Ac tive 21044483 Problem Morbid (severe) obesity due to excess calories E66 .01 Active 275459366 Problem Seasonal allergic rhinitis due to pollen J30.1 Active 29643881 ALLERGIES No Information ENCOUNTERS Encounter Location Date Diagnosis [place] [id number] [place] [address] Sep, [facility] [id number] [place] [address] 16 Sep, 2019 COPD (chronic obstructive pulmonary dise ase) with emphysema J43.9 [facility] [id number] [place] [address] 02 Sep, 2019 [place] [address] [id number] [place] [address] 07 Aug, [address] [facility] [address] [id number] [place] [address] Aug, Essential hypertension I10 [facility] [address] [facility] [id number] [place] [address] Jul, Parotiditis K11.20 [facility] [address] [address] Jul, [facility] [address] [address] Jul, Type II diabetes mellitus E11.9 [facility] [address] [address] Jul, [facility] [address] [address] Jul, Pneumonia due to infectious organism, un specified laterality, unspecified part of lung J18.9 ; On home oxygen therapy Z99.81 ; Type II diabetes mellitus E11.9 ; Tobacco use disorder F17.200 and Encounter for tobacco use cessation counseling Z71.6 [facility] [address] [address] Apr, [facility] [address] [facility] [id number] [place] [address] Mar, Acute non-recurrent frontal sinusitis J01.10 [facility] [address] [address] 17 Mar, 2019 Type 2 diabetes mellitus without complic ations E11.9 [facility] [address] [address] Mar, Type 2 diabetes mellitus without complic ations E11.9 ; Essential hypertension I10 and Chronic bronchitis, unspecified chronic bronchitis type J42 [place] [address] [address] Feb, [facility] [address] [address] Dec, [facility] [address] [address] Dec, [place] [address] [id number] [place] [address] November, [facility] [place] [facility] [address] [facility] [address] [place] [address] November, [facility] [place] [facility] [address] [facility] [address] [place] [address] November, [facility] [place] [address] [place] [address] November, Allergic rhinitis J30.9 [facility] [id number] [place] [address] November, [facility] [id number] [place] [address] November, [facility] [id number] [place] [address] November, [facility] [id number] [place] [address] Oct, [facility] [id number] [place] [address] Oct, Essential hypertension I10 [facility] [id number] [place] [address] Oct, [facility] [id number] [place] [address] Oct, [facility] [address] [id number] [place] [address] Oct, [facility] [id number] [place] [address] Oct, [facility] [address] [id number] [place] [address] Oct, [facility] [address] [facility] [id number] [address] [place] [address] Oct, Shortness of breath R06.02 a nd Oxygen decrease R09.02 [facility] [address] [id number] [place] [address] Oct, [facility] [id number] [place] [address] Sep, COPD (chronic obstructive pulmonary dise ase) with emphysema J43.9 ; On home oxygen therapy Z99.81 and Hypothyroidism E03.9 [facility] [id number] [place] [address] Sep, [place] [address] [address] Sep, [place] [address] [address] Sep, Acute on chronic respiratory failure wit h hypoxia J96.21 ; Hypothyroidism E03.9 ; COPD (chronic obstructive pulmonary disease) with emphysema J43.9 ; Essential hypertension I10 ; Type 2 diabetes mellitus with other specified complication E11.69 ; [facility] current use of insulin Z79.4 and Hyperlipidemia LDL goal <70 E78.5 [place] [address] [address] Sep, Allergic rhinitis J30.9 [place] [address] [address] Aug, Allergic rhinitis J30.9 [place] [address] [address] Aug, [place] [address] [address] Aug, [place] [address] [address] Aug, [place] [address] [address] Jul, [place] [address] [address] Jul, Type 2 diabetes mellitus with other spec ified complication E11.69 [place] [address] [address] Jun, [place] [id number] [place] [address] May, Hyperlipidemia LDL goal <70 E78.5 ; COPD (chronic obstructive pulmonary disease) with emphysema J43.9 and Encounter for immunization Z23 [facility] [id number] [place] [address] May, [facility] [address] [facility] [id number] [address] [place] [address] May, Acute upper respiratory infe ction J06.9 [facility] [address] [address] May, Essential hypertension I10 [place] [address] [address] May, Essential hypertension I10 [place] [address] [address] Apr, Essential hypertension I10 [place] [address] [address] Apr, [facility] [address] [address] Apr, COPD (chronic obstructive pulmonary dise ase) with emphysema J43.9 [facility] [address] [address] Apr, [place] [address] [address] Mar, [facility] [address] [address] Feb, Type 2 diabetes mellitus with other spec ified complication E11.69 ; [facility] [...] Seasonal allergic rhinitis due to pollen J30.1 [facility] [address] [address] 15 Nov, 2017 Pneumonia of right lower lobe due to inf ectious organism J18.1 ; 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 ; Type [...] without esophagitis K21.9 and Allergic rhinitis J30.9 [place] [address] [address] November, [place] [address] [address] Sep, [place] [address] [address] Sep, [place] [address] [address] Sep, [place] [address] [address] Sep, [facility] [address] [place] [address] Jul, Encounter for immunization Z 23 [facility] [address] [place] [id number] [place] [address] Jun, Subacute maxillary sinusitis J01.00 [place] [address] [address] May, [place] [address] [address] May, [place] [address] [address] May, Type II diabetes mellitus E11.9 ; Hypoth yroidism E03.9 ; COPD (chronic obstructive pulmonary disease) with emphysema J43.9 ; Cough R05 ; COPD with exacerbation J44.1 and Pneumonia of right lower lobe due to infectious organism J18.1 [place] [address] [address] 08 Mar, 2017 Hyperlipidemia, unspecified hyperlipidem ia type E78.5 [place] [address] [address] Mar, Hypothyroidism E03.9 and Hyperlipidemia, unspecified hyperlipidemia type E78.5 [place] [address] [address] Feb, Type II diabetes mellitus E11.9 ; [...] full remission F33.42 and Urinary incontinence R32 [place] [address] [address] Jan, [place] [address] [address] Jan, [place] [address] [address] November, [place] [address] [address] Sep, Type II diabetes mellitus E11.9 ; [...] and Tinea pedis of both feet B35.[address] [place] [address] 13 Jun, 2016 [facility] [address] [facility] [id number] [address] [place] [address] Jun, Acute upper respiratory infe ction, unspecified J06.9 and Other viral agents as the cause of diseases classified elsewhere B97.89 [place] [address] [address] May, [place] [address] [address] May, Type 2 diabetes mellitus with hyperglyce [...] thrush B37.0 and Encounter for immunization Z23 [place] [address] [address] Apr, [place] [address] [address] Apr, [place] [address] [address] Mar, [place] [address] [address] Dec, [place] [address] [address] Dec, [address] [address] Dec, Encounter for well woman exam with lalito rojas gynecological exam Z01.419 ; Encounter for screening for malignant neoplasm of cervix Z12.4 ; Screening mammogram, encounter for Z12.31 ; Encounter for screening breast examination Z12.39 ; On home oxygen therapy Z99.81 ; COPD (chronic obstructive pulmonary disease) with emphysema J43.9 ; Heat rash L74.0 ; Type II diabetes mellitus E11.9 and Hypothyroidism E03.9 [facility] [address] [address] November, [facility] [address] [address] November, Type II diabetes mellitus E11.9 ; Allerg ic rhinitis J30.9 ; Hypothyroidism E03.9 ; Obesity due to excess calories E66.09 ; Urinary incontinence R32 ; Gastroesophageal reflux disease without esophagitis K21.9 and Essential hypertension I10 [place] [address] [address] Oct, [place] [address] [address] Sep, [facility] [address] [address] Sep, [facility] [address] [facility] [id number] [place] [address] Aug, Acute maxillary sinusitis J0 1.00 [place] [address] [address] Aug, [facility] [address] [address] Aug, [place] [address] [address] Aug, Type II diabetes mellitus E11.9 [place] [address] [address] 05 Aug, 2015 Type II diabetes mellitus E11.9 ; Hypoth yroidism E03.9 ; COPD (chronic obstructive pulmonary disease) with emphysema J43.9 ; Obesity due to excess calories E66.09 ; Urinary incontinence R32 ; Anemia D64.9 ; Microcytic anemia D50.9 and Allergic rhinitis J30.9 [facility] [address] [address] 11 May, 2015 Upper respiratory symptom R09.89 [place] [address] [address] May, Oral thrush B37.0 [place] [address] [address] Apr, Hypothyroidism E03.9 and Microcytic anem ia D50.9 [place] [address] [address] Apr, Encounter for long-term current use of m edication Z79.899 ; Hypothyroidism E03.9 ; Microcytic anemia D50.9 ; Type 2 diabetes mellitus without complication E11.9 ; Essential hypertension I10 and Mixed incontinence N39.46 [place] [address] [address] Apr, [place] [address] [address] Mar, [place] [address] [address] Mar, [place] [address] [address] Mar, [place] [address] [address] Mar, [place] [address] [address] Mar, [place] [address] [address] Mar, [place] [address] [address] Mar, [place] [address] [address] Feb, Cough 786.2 ; Wheezing 786.07 ; Hypothyr oidism 244.9 and Encounter for long-term current use of medication V58.69 [place] [address] [address] 13 Aug, 2015 Diabetes type 2, uncontrolled 250.02 ; D epression 311 ; Encounter for long-term current use of medication V58.69 and Hypothyroidism 244.9 [facility] [id number] [place] [address] Feb, [facility] [id number] [place] [address] Jan, [facility] [address] [address] Oct, [facility] [address] [address] Oct, [facility] [address] [address] Oct, [facility] [address] [address] Sep, [facility] [address] [address] Sep, [facility] [address] [address] Sep, [facility] [address] [address] Aug, [facility] [address] [address] Aug, [facility] [id number] [place] [address] Jul, [facility] [id number] [place] [address] Jul, [facility] [id number] [place] [address] Jul, [facility] [id number] [place] [address] Jul, [facility] [id number] [place] [address] Jul, [facility] [id number] [place] [address] Jul, [facility] [address] [id number] [place] [address] Jul, [facility] [address] [id number] [place] [address] Jul, [facility] [address] [id number] [place] [address] Jun, [facility] [address] [id number] [place] [address] Jun, [facility] [address] [id number] [place] [address] May, [facility] [address] [id number] [place] [address] May, [facility] [address] [id number] [place] [address] May, [facility] [address] [id number] [place] [address] Apr, [facility] [address] [id number] [place] [address] Apr, [facility] [address] [id number] [place] [address] Apr, [facility] [address] [id number] [place] [address] Apr, [facility] [address] [id number] [place] [address] Apr, [facility] [address] [id number] [place] [address] Apr, [facility] [address] [id number] [place] [address] Mar, [facility] [address] [id number] [place] [address] Mar, [facility] [address] [id number] [place] [address] 19 Mar, 2014 [facility] [address] [id number] [place] [address] Mar, [facility] [address] [facility] [id number] [place] [address] Sep, [facility] [address] [id number] [place] [address] Sep, [facility] [address] [id number] [place] [address] Sep, [facility] [address] [id number] [place] [address] Sep, [facility] [address] [id number] [place] [address] Aug, [facility] [address] [id number] [place] [address] Aug, [facility] [address] [id number] [place] [address] Aug, [facility] [address] [id number] [place] [address] Aug, [facility] [address] [id number] [place] [address] Aug, [facility] [address] [id number] [place] [address] Aug, [facility] [address] [id number] [place] [address] Jul, [facility] [address] [id number] [place] [address] Jul, [facility] [address] [id number] [place] [address] Jul, [facility] [address] [id number] [place] [address] Jul, [facility] [address] [id number] [place] [address] Jun, [facility] [address] [id number] [place] [address] Jun, [facility] [address] [id number] [place] [address] May, [facility] [address] [id number] [place] [address] May, [facility] [address] [id number] [place] [address] Apr, [facility] [address] [id number] [place] [address] Apr, [facility] [address] [facility] [id number] [place] [address] Apr, [facility] [address] [id number] [place] [address] Mar, [facility] [address] [id number] [place] [address] Mar, [facility] [address] [id number] [place] [address] Mar, [facility] [address] [id number] [place] [address] Mar, [facility] [address] [id number] [place] [address] Feb, [facility] [address] [id number] [place] [address] Jan, [facility] [address] [id number] [place] [address] Jan, [facility] [address] [id number] [place] [address] Jan, [facility] [address] [id number] [place] [address] Jan, [facility] [address] [id number] [place] [address] Dec, [facility] [address] [id number] [place] [address] Dec, [facility] [address] [id number] [place] [address] Dec, [facility] [address] [facility] [id number] [facility] [address] Dec, [facility] [address] [id number] [place] [address] Dec, [facility] [address] [id number] [place] [address] Dec, [facility] [address] [id number] [place] [address] November, [facility] [address] [id number] [place] [address] November, [facility] [address] [id number] [place] [address] November, [facility] [address] [id number] [place] [address] Oct, [facility] [address] [id number] [place] [address] Oct, [facility] [address] [id number] [place] [address] Sep, [facility] [address] [id number] [place] [address] Sep, [facility] [address] [id number] [place] [address] Sep, [facility] [address] [id number] [place] [address] Sep, [facility] [address] [id number] [place] [address] Sep, [facility] [address] [id number] [place] [address] Aug, [facility] [address] [id number] [place] [address] Aug, [facility] [address] [id number] [place] [address] Aug, [facility] [address] [id number] [place] [address] 07 Aug, 2012 [facility] [address] [id number] [place] [address] 04 Aug, 2012 [facility] [address] [id number] [place] [address] Jul, [facility] [address] [id number] [place] [address] 08 Jul, 2012 [facility] [address] [id number] [place] [address] Jun, [facility] [address] [id number] [place] [address] Jun, [facility] [address] [id number] [place] [address] Jun, [facility] [address] [id number] [place] [address] Jun, [facility] [address] [id number] [place] [address] Jun, [facility] [address] [id number] [place] [address] Jun, [facility] [address] [id number] [place] [address] Jun, [facility] [address] [id number] [place] [address] Jun, [facility] [address] [id number] [place] [address] Jun, [facility] [address] [id number] [place] [address] May, [facility] [address] [id number] [place] [address] May, [facility] [address] [id number] [place] [address] May, [facility] [address] [id number] [place] [address] May, [facility] [address] [id number] [place] [address] May, [facility] [address] [id number] [place] [address] May, [facility] [address] [id number] [place] [address] May, [facility] [address] [id number] [place] [address] Apr, [facility] [address] [id number] [place] [address] Mar, [facility] [address] [id number] [place] [address] Mar, [facility] [address] [id number] [place] [address] Feb, [facility] [address] [id number] [place] [address] Feb, [facility] [address] [id number] [place] [address] Feb, [facility] [address] [id number] [place] [address] Feb, [facility] [address] [id number] [place] [address] Jan, [facility] [address] [id number] [place] [address] Jan, [facility] [address] [id number] [place] [address] Jan, [facility] [address] [id number] [place] [address] Jan, [facility] [address] [id number] [place] [address] Dec, [facility] [address] [id number] [place] [address] Dec, [facility] [address] [id number] [place] [address] 17 Dec, 2011 [facility] [address] [id number] [place] [address] Dec, [facility] [address] [id number] [place] [address] 13 Dec, 2011 [facility] [address] [id number] [place] [address] Sep, [facility] [id number] [place] [address] Aug, [facility] [address] [id number] [place] [address] Jul, [facility] [address] [id number] [place] [address] Jun, [facility] [address] [id number] [place] [address] Jun, [facility] [id number] [place] [address] Jun, [facility] [id number] [place] [address] Jun, [facility] [address] [id number] [place] [address] May, [facility] [address] [id number] [place] [address] May, [facility] [address] [id number] [place] [address] Apr, [facility] [address] [id number] [place] [address] Jun, [facility] [address] [address] Apr, IMMUNIZATIONS No Known Immunizations SOCIAL HISTORY [...] 11/2017 Hospitalization History pneumonia 10/07 Hospitalization History [facility] 03/09/19 Hospitalization History via [facility]. 07/17/19
--- OUTSIDE RECORDS SUMMARY | 2019-12-24 00:31 | XMS REPORT ---
Author Author Don Messer Organization [facility] Address [address] [place] [address] Care Team Providers Care Engineering Team Supervisor Name Role Phone CHIQUI Messer Unavailable PROBLEMS Type Condition ICD9-CM Code [id number] Code Onset Dates Condition S tatus SNOMED Code Problem Allergic rhinitis J30.9 Active 61 842621 Problem Urinary incontinence R32 Active 441854752 Problem Microcytic anemia D50.9 Active 23 6224133 Problem Hypothyroidism E03.9 Active 66845 008 Problem Gastroesophageal reflux disease without esophagitis K21.9 Active 281553590 Problem Essential hypertension I10 Active 44940360 Problem Tobacco abuse Z72.0 Active 411740 000 Problem Chronic bronchitis, unspecified chronic bronchitis type J42 Active 95686801 Problem On home oxygen therapy Z99.81 Active 442925293641 Problem Parotiditis K11.20 Active 89270713 Problem 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 Active 15711229 Problem Type 2 diabetes mellitus with other specified complication E11.69 Active 56062009 Problem Hyperlipidemia LDL goal <70 E78.5 Ac tive 87620300 Problem Morbid (severe) obesity due to excess calories E66 .01 Active 773403803 Problem Seasonal allergic rhinitis due to pollen J30.1 Active 22646949 ALLERGIES No Information ENCOUNTERS Encounter Location Date Diagnosis [facility] [address] [facility] [id number] [address] [place] [phone] Sep, [facility] [address] [facility] [id number] [address] [place] [id number] 16 Sep, 2019 COPD (chronic obstructive pu lmonary disease) with emphysema J43.9 [facility] [address] [facility] [id number] [address] [place] [id number] 02 Sep, 2019 [facility] [address] [facility] [id number] [address] [place] [address] 07 Aug, 2019 [facility] [address] [facility] [id number] [address] Aug, Essential hypertension I10 [facility] [address] [facility] [id number] [address] [place] [address] Jul, Parotiditis K11.20 [facility] [address] [facility] [id number] [address] [place] [phone] Jul, [facility] [address] [facility] [id number] [address] [place] [address] Jul, Type II diabetes mellitus E1 1.9 [facility] [address] [facility] [id number] [address] [place] [address] Jul, [facility] [address] [facility] [id number] [address] [place] [address] Jul, Pneumonia due to infectious organism, unspecified laterality, unspecified part of lung J18.9 ; On home oxygen therapy Z99.81 ; Type II diabetes mellitus E11.9 ; Tobacco use disorder F17.200 and Encounter for tobacco use cessation counseling Z71.6 [facility] [address] [place] [id number] [address] [place] [phone] Apr, [facility] [address] [facility] [id number] [address] [place] [address] Mar, Acute non-recurrent frontal sinusitis J01.10 [facility] [address] [facility] [id number] [address] [place] [address] Mar, Type 2 diabetes mellitus wit hout complications E11.9 [facility] [address] [facility] [id number] [address] [place] [address] Mar, Type 2 diabetes mellitus wit hout complications E11.9 ; Essential hypertension I10 and Chronic bronchitis, unspecified chronic bronchitis type J42 [facility] [address] [facility] [id number] [address] [place] [phone] Feb, [facility] [address] [id number] [address] [place] [id number] Dec, [facility] [address] [id number] [address] [place] [phone] Dec, [facility] [address] [id number] [address] [place] [address] November, [facility] [place] [facility] [address] [facility] [address] [id number] [place] [address] November, [facility] [place] [facility] [address] [facility] [address] [id number] [place] [address] November, [facility] [place] [facility] [address] [facility] [address] [id number] [place] [address] November, Allergic rhinitis J30.9 [facility] [address] [id number] [address] [place] [id number] November, [facility] [address] [id number] [address] [place] [phone] November, [facility] [address] [id number] [address] [place] [address] November, [facility] [address] [id number] [address] [place] [address] Oct, [facility] [address] [id number] [address] [place] [id number] Oct, Essential hypertension I10 [facility] [address] [id number] [address] [place] [phone] Oct, [facility] [address] [id number] [address] [place] [address] Oct, [facility] [address] [id number] [address] [place] [address] Oct, [facility] [address] [id number] [address] [place] [phone] Oct, [facility] [address] [id number] [address] [place] [phone] Oct, [facility] [address] [facility] [id number] [address] [place] [address] Oct, Shortness of breath R06.02 a nd Oxygen decrease R09.02 [facility] [address] [facility] [id number] [address] [place] [address] Oct, [facility] [address] [place] [id number] [address] [place] [address] Sep, COPD (chronic obstructive pu lmonary disease) with emphysema J43.9 ; On home oxygen therapy Z99.81 and Hypothyroidism E03.9 [facility] [address] [facility] [id number] [address] [place] [id number] Sep, [facility] [address] [facility] [id number] [address] [place] [address] Sep, [facility] [address] [address] Sep, Acute on chronic respiratory failure with hypoxia J96.21 ; Hypothyroidism E03.9 ; 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 ; Essential hypertension I10 ; Type 2 diabetes mellitus with other specified complication E11.69 ; snf current use of insulin Z79.4 and Hyperlipidemia LDL goal <70 E78.5 [facility] [address] [facility] [id number] [address] [place] [id number] Sep, Allergic rhinitis J30.9 [facility] [address] [facility] [id number] [address] [place] [address] Aug, Allergic rhinitis J30.9 [facility] [address] [facility] [id number] [address] [place] [address] Aug, [facility] [address] [facility] [id number] [address] [place] [address] Aug, [facility] [address] [place] [id number] [address] [place] [address] Aug, [place] [address] [id number] [address] [place] [id number] 15 Jul, 2018 [facility] [address] [facility] [id number] [address] [place] [id number] 14 Jul, 2018 Type 2 diabetes mellitus wit h other specified complication E11.69 [facility] [address] [facility] [id number] [address] [place] [phone] Jun, [facility] [address] [facility] [id number] [address] [place] [address] May, Hyperlipidemia LDL goal <70 E78.5 ; 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 and Encounter for immunization Z23 [facility] [address] [facility] [id number] [address] [place] [phone] May, [facility] [address] [facility] [id number] [address] [place] [phone] May, Acute upper respiratory infe ction J06.9 [facility] [address] [facility] [id number] [address] [place] [address] May, Essential hypertension I10 [facility] [address] [facility] [id number] [address] [place] [address] May, Essential hypertension I10 [facility] [address] [facility] [id number] [address] [place] [phone] Apr, Essential hypertension I10 [facility] [address] [facility] [id number] [address] [place] [id number] Apr, [facility] [address] [facility] [id number] [address] [place] [phone] Apr, COPD (chronic obstructive pu lmonary disease) with emphysema J43.9 [facility] [address] [facility] [id number] [address] [place] [phone] Apr, [facility] [address] [facility] [id number] [address] [place] [address] Mar, [facility] [address] [place] [id number] [address] [place] [id number] Feb, 2018 Type 2 diabetes mellitus wit h other specified complication E11.69 ; 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.4 ; Essential hypertension I10 ; Hyperlipidemia LDL goal <70 E78.5 ; 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 ; Microcytic anemia D50.9 ; Morbid (severe) obesity due to excess calories E66.01 ; Body mass index (BMI) of 39.0-39.9 in adult Z68.39 ; Hypothyroidism E03.9 and Seasonal allergic rhinitis due to pollen J30.1 [place] [address] [place] [id number] [address] [place] [address] November, Pneumonia of right lower lob e due to infectious organism J18.1 ; snf current use of insulin Z79.4 ; Type [...] K21.9 and Allergic rhinitis J30.9 [place] [address] [place] [id number] [address] [place] [phone] November, [place] [address] [place] [id number] [address] [place] [phone] Sep, [place] [address] [place] [id number] [address] [place] [address] Sep, [place] [address] [place] [id number] [address] [place] [address] Sep, [place] [address] [place] [id number] [address] [place] [id number] Sep, 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 ; Cough R05 ; COPD with exacerbation J44.1 and Pneumonia of right lower lobe due to infectious organism J18.[address] [id number] Mar, Hyperlipidemia, unspecified hyperlipidemia type E78.[address] [address] Mar, Hypothyroidism E03.9 and Hyp erlipidemia, unspecified hyperlipidemia type E78.[address] [address] Feb, Type II diabetes mellitus E1 1.9 [...] remission F33.42 and Urinary incontinence R32 [facility] [address] [address] Jan, [facility] [address] [address] Jan, [facility] [address] [address] November, [facility] [address] [address] Sep, Type II diabetes mellitus E1 1.9 [...] and Tinea pedis of both feet B35.[address] [address] Jun, [facility] [address] [address] Jun, Acute upper respiratory infe ction, unspecified J06.9 and Other viral agents as the cause of diseases classified elsewhere B97.[address] [address] May, [address] [address] May, Type 2 diabetes mellitus wit h [...] thrush B37.0 and Encounter for immunization Z23 [address] [address] Apr, [address] [address] Apr, [address] [address] Mar, [facility] [address] [place] [id number] [address] [place] [address] Dec, [facility] [address] [address] Dec, [facility] [address] [place] [id number] [address] [place] [address] Dec, Encounter for well woman exa m [...] diabetes mellitus E11.9 and Hypothyroidism E03.9 [facility] [address] [address] November, [place] [address] [address] November, Type II diabetes mellitus E1 1.9 ; Allergic rhinitis J30.9 ; Hypothyroidism E03.9 ; Obesity due to excess calories E66.09 ; Urinary incontinence R32 ; Gastroesophageal reflux disease without esophagitis K21.9 and Essential hypertension I10 [place] [id number] [place] [id number] [address] [place] [address] Oct, [facility] [address] [place] [id number] [address] [place] [address] Sep, [facility] [address] [place] [id number] [address] [place] [address] Sep, [facility] [address] [place] [id number] [address] [place] [address] Aug, Acute maxillary sinusitis J0 1.00 [facility] [address] [place] [id number] [address] [place] [address] Aug, [facility] [address] [address] Aug, [place] [address] [place] [id number] [address] [place] [address] 16 Aug, 2015 Type II diabetes mellitus E1 1.9 [place] [address] [id number] 05 Aug, 2015 Type II diabetes mellitus E1 1.9 ; Hypothyroidism E03.9 ; 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 ; Obesity due to excess calories E66.09 ; Urinary incontinence R32 ; Anemia D64.9 ; Microcytic anemia D50.9 and Allergic rhinitis J30.[address] [address] May, Upper respiratory symptom R0 9.89 [place] [address] [address] May, Oral thrush B37.[address] [address] Apr, Hypothyroidism E03.9 and Harish rocytic anemia D50.[address] [address] Apr, Encounter for long-term curr ent use of medication Z79.899 ; Hypothyroidism E03.9 ; Microcytic anemia D50.9 ; Type 2 diabetes mellitus without complication E11.9 ; Essential hypertension I10 and Mixed incontinence N39.46 [place] [address] [place] [id number] [address] [place] [address] Apr, [place] [address] [address] Mar, [place] [address] [address] Mar, [place] [address] [address] Mar, [place] [address] [place] [address] 08 Mar, 2015 [facility] [address] [facility] [id number] [address] [place] [id number] 08 Mar, 2015 [facility] [address] [facility] [id number] [address] [place] [address] Mar, [facility] [address] [facility] [id number] [address] [place] [address] Mar, [facility] [address] [facility] [id number] [address] [place] [address] Feb, Cough 786.2 ; Wheezing 786.0 7 ; Hypothyroidism 244.9 and Encounter for long-term current use of medication V58.69 [facility] [address] [facility] [id number] [address] [place] [address] Feb, Diabetes type 2, uncontrolle d 250.02 ; Depression 311 ; Encounter for long-term current use of medication V58.69 and Hypothyroidism 244.9 [facility] [address] [facility] [id number] [address] [place] [address] Feb, [facility] [address] [place] [id number] [address] [place] [address] Jan, [facility] [address] [facility] [id number] [address] [place] [address] Oct, [facility] [address] [place] [id number] [address] [place] [id number] Oct, [facility] [address] [facility] [id number] [address] [place] [phone] Oct, [facility] [address] [facility] [id number] [address] [place] [address] 30 Sep, 2014 [facility] [address] [place] [id number] [address] [place] [id number] Sep, [facility] [address] [place] [id number] [address] [place] [address] Sep, [facility] [place] [facility] [address] [id number] [address] [place] [address], [place] [address] Aug, [facility] [place] [facility] [address] [id number] [address] [place] [address], [place] [address] Aug, [facility] [place] [facility] [address] [id number] [address] [place] [address], [place] [address] Jul, [facility] [place] [facility] [address] [id number] [address] [place] [address], [place] [address] Jul, [facility] [place] [facility] [address] [id number] [address] [place] [address], [place] [address] Jul, [facility] [place] [facility] [address] [id number] [address] [place] [address], [place] [address] Jul, [facility] [address] [id number] [address] [place] [address], [place] [address] Jul, [facility] [address] [id number] [address] [place] [address], [place] [address] Jul, [facility] [address] [id number] [address] [place] [address], [place] [address] Jul, [facility] [address] [id number] [address] [place] [address], [place] [address] Jul, [facility] [address] [id number] [address] [place] [address], [place] [address] Jun, [facility] [address] [id number] [address] [place] [address], [place] [address] Jun, [facility] [place] [facility] [address] [id number] [address] [place] [address], [place] [address] May, [facility] [place] [facility] [address] [id number] [address] [place] [address], [place] [address] May, [facility] [place] [facility] [address] [id number] [address] [place] [address], [place] [address] May, [facility] [place] [facility] [address] [id number] [address] [place] [address], [place] [address] Apr, [facility] [place] [facility] [address] [id number] [address] [place] [address], [place] [address] Apr, [facility] [place] [facility] [address] [id number] [address] [place] [address], [place] [address] Apr, [facility] [place] [facility] [address] [id number] [address] [place] [address], [place] [id number] Apr, [facility] [address] [id number] [address] [place] [address], [place] [id number] Apr, [facility] [address] [id number] [address] [place] [address], [place] [id number] Apr, [facility] [address] [id number] [address] [place] [address], [place] [id number] 22 Mar, 2014 [facility] [address] [id number] [address] [place] [address], [place] [id number] Mar, [facility] [address] [id number] [address] [place] [address], [place] [id number] 19 Mar, 2014 [facility] [address] [id number] [address] [place] [address], [place] [id number] 19 Mar, 2014 [facility] [address] [id number] [address] [place] [address], [place] [id number] Sep, [facility] [address] [id number] [address] [place] [address], [place] [id number] Sep, [facility] [address] [id number] [address] [place] [address], [place] [id number] Sep, [facility] [address] [id number] [address] [place] [address], [place] [id number] Sep, [facility] [address] [id number] [address] [place] [address], [place] [id number] Aug, [facility] [address] [id number] [address] [place] [address], [place] [id number] Aug, [facility] [address] [id number] [address] [place] [address], [place] [id number] Aug, [facility] [address] [id number] [address] [place] [address], [place] [id number] Aug, [facility] [address] [id number] [address] [place] [address], [place] [id number] Aug, [facility] [address] [id number] [address] [place] [address], [place] [id number] Aug, [facility] [address] [id number] [address] [place] [address], [place] [id number] Jul, [facility] [address] [id number] [address] [place] [address], [place] [id number] Jul, [facility] [address] [id number] [address] [place] [address], [place] [id number] Jul, [facility] [address] [id number] [address] [place] [address], [place] [id number] Jul, [facility] [address] [id number] [address] [place] [address], [place] [id number] Jun, [facility] [address] [id number] [address] [place] [address], [place] [id number] Jun, [facility] [address] [id number] [address] [place] [address], [place] [id number] May, [facility] [address] [id number] [address] [place] [address], [place] [id number] May, [facility] [address] [id number] [address] [place] [address], [place] [id number] Apr, [facility] [address] [id number] [address] [place] [address], [place] [id number] Apr, [facility] [address] [id number] [address] [place] [address], [place] [id number] Apr, [facility] [address] [id number] [address] [place] [address], [place] [id number] Mar, [facility] [address] [id number] [address] [place] [address], [place] [id number] Mar, [facility] [facility] [address] [id number] [address] [place] [address], [place] [address] Mar, [facility] [address] [id number] [address] [place] [address], [place] [address] Mar, [facility] [address] [id number] [address] [place] [address], [place] [address] Feb, [facility] [address] [id number] [address] [place] [address], [place] [address] Jan, [facility] [address] [id number] [address] [place] [address], [place] [address] Jan, [facility] [address] [id number] [address] [place] [address], [place] [address] Jan, [facility] [address] [id number] [address] [place] [address], [place] [address] Jan, [facility] [address] [id number] [address] [place] [address], [place] [address] Dec, [facility] [address] [id number] [address] [place] [address], [place] [address] Dec, [facility] [address] [id number] [address] [place] [address], [place] [address] Dec, [facility] [address] [id number] [address] [place] [address], [place] [address] Dec, [facility] [address] [id number] [address] [place] [address], [place] [address] Dec, [facility] [address] [id number] [address] [place] [address], [place] [address] Dec, [facility] [address] [id number] [address] [place] [address], [place] [address] November, [facility] [address] [id number] [address] [place] [address], [place] [address] November, [facility] [address] [id number] [address] [place] [address], [place] [address] November, [facility] [address] [id number] [address] [place] [address], [place] [address] Oct, [facility] [address] [id number] [address] [place] [address], [place] [address] Oct, [facility] [address] [id number] [address] [place] [address], [place] [address] Sep, [facility] [address] [id number] [address] [place] [address], [place] [address] Sep, [facility] [address] [id number] [address] [place] [address], [place] [address] Sep, [facility] [address] [id number] [address] [place] [address], [place] [address] Sep, [facility] [address] [id number] [address] [place] [address], [place] [address] Sep, [facility] [address] [id number] [address] [place] [address], [place] [address] Aug, [facility] [address] [id number] [address] [place] [address], [place] [address] Aug, [facility] [address] [id number] [address] [place] [address], [place] [address] Aug, [facility] [address] [id number] [address] [place] [address], [place] [address] Aug, [facility] [address] [id number] [address] [place] [address], [place] [address] Aug, [facility] [address] [id number] [address] [place] [address], [place] [address] Jul, [facility] [address] [id number] [address] [place] [address], [place] [address] Jul, [facility] [address] [id number] [address] [place] [address], [place] [address] Jun, [facility] [address] [id number] [address] [place] [address], [place] [address] Jun, [facility] [address] [id number] [address] [place] [address], [place] [address] Jun, [facility] [address] [id number] [address] [place] [address], [place] [address] Jun, [facility] [address] [id number] [address] [place] [address], [place] [address] Jun, [facility] [address] [id number] [address] [place] [address], [place] [address] Jun, [facility] [address] [id number] [address] [place] [address], [place] [address] Jun, [facility] [address] [id number] [address] [place] [address], [place] [address] Jun, [facility] [address] [id number] [address] [place] [address], [place] [address] Jun, [facility] [address] [id number] [address] [place] [address], [place] [address] May, [facility] [address] [id number] [address] [place] [address], [place] [address] May, [facility] [address] [id number] [address] [place] [address], [place] [address] May, [facility] [address] [id number] [address] [place] [address], [place] [address] May, [facility] [address] [id number] [address] [place] [address], [place] [address] May, [facility] [address] [id number] [address] [place] [address], [place] [address] May, [facility] [address] [id number] [address] [place] [address], [place] [address] 08 May, 2012 [facility] [address] [id number] [address] [place] [address], [place] [address] Apr, [facility] [address] [id number] [address] [place] [address], [place] [address] Mar, [facility] [address] [id number] [address] [place] [address], [place] [address] Mar, [facility] [address] [id number] [address] [place] [address], [place] [id number] 24 Feb, 2012 [facility] [address] [id number] [address] [place] [address], [place] [address] Feb, [facility] [address] [id number] [address] [place] [address], [place] [address] Feb, [facility] [address] [id number] [address] [place] [address], [place] [address] Feb, [facility] [address] [id number] [address] [place] [address], [place] [address] Jan, [facility] [address] [id number] [address] [place] [address], [place] [address] Jan, [facility] [address] [id number] [address] [place] [address], [place] [address] Jan, [facility] [address] [id number] [address] [place] [address], [place] [address] Jan, [facility] [address] [id number] [address] [place] [address], [place] [address] Dec, [facility] [address] [id number] [address] [place] [address], [place] [address] Dec, [facility] [address] [id number] [address] [place] [address], [place] [address] 17 Dec, 2011 [facility] [address] [id number] [address] [place] [address], [place] [id number] 15 Dec, 2011 [facility] [address] [id number] [address] [place] [address] Dec, [facility] [address] [id number] [address] [place] [address] Sep, [facility] [address] [id number] [address] [place] [address] Aug, [facility] [address] [id number] [address] [place] [id number] Jul, [facility] [address] [id number] [address] [place] [address] Jun, [facility] [address] [id number] [address] [place] [address] Jun, [facility] [address] [id number] [address] [place] [address] Jun, [facility] [address] [id number] [address] [place] [address] Jun, [facility] [address] [id number] [address] [place] [id number] May, [facility] [address] [id number] [address] [place] [address] May, [facility] [address] [id number] [address] [place] [address] Apr, [facility] [address] [id number] [address] [place] [address] Jun, [facility] [address] [id number] [address] [place] [address] Apr, IMMUNIZATIONS No Known Immunizations SOCIAL HISTORY [...] 11/2017 Hospitalization History pneumonia 10/[address] [facility] 03/09/19 Hospitalization History via [facility]. 07/17/19
--- OUTSIDE RECORDS SUMMARY | 2019-12-24 00:32 | XMS REPORT ---
Author Author Don Jay Doctor Organization [facility] Address Unknown Phone Unavailable Care Team Providers Care Home Economist Consumer Service Name Role Phone Migration, Doctor Unavailable Unavailable PROBLEMS Type Condition ICD9-CM Code [id number] Code Onset Dates Condition S tatus SNOMED Code Problem Allergic rhinitis J30.9 Active 61 237721 Problem Urinary incontinence R32 Active 807230691 Problem Microcytic anemia D50.9 Active 23 3940412 Problem Hypothyroidism E03.9 Active 27921 008 Problem Gastroesophageal reflux disease without esophagitis K21.9 Active 881642989 Problem Essential hypertension I10 Active 51824547 Problem Tobacco abuse Z72.0 Active 956176 000 Problem Chronic bronchitis, unspecified chronic bronchitis type J42 Active 22864424 Problem On home oxygen therapy Z99.81 Active 142832710086 Problem Parotiditis K11.20 Active 90805976 Problem 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 Active 92651783 Problem Type 2 diabetes mellitus with other specified complication E11.69 Active 53081829 Problem Hyperlipidemia LDL goal <70 E78.5 Ac tive 09258431 Problem Morbid (severe) obesity due to excess calories E66 .01 Active 584349175 Problem Seasonal allergic rhinitis due to pollen J30.1 Active 25181340 ALLERGIES No Information ENCOUNTERS Encounter Location Date Diagnosis [facility] [address] [id number] [place] [address] Sep, [facility] [address] [id number] [place] [address] 07 Aug, 2019 [facility] [address] [facility] [id number] [place] [address] Aug, Essential hypertension I10 [facility] [address] [facility] [id number] [address] [place] [address] Jul, Parotiditis K11.20 [facility] [address] [id number] [place] [address] Jul, [facility] [id number] [place] [address] Jul, Type II diabetes mellitus E11.9 [facility] [id number] [place] [address] Jul, [facility] [id number] [place] [address] Jul, Pneumonia due to infectious organism, un specified laterality, unspecified part of lung J18.9 ; On home oxygen therapy Z99.81 ; Type II diabetes mellitus E11.9 ; Tobacco use disorder F17.200 and Encounter for tobacco use cessation counseling Z71.6 [place] [address] [address] 14 Apr, 2019 [facility] [address] [facility] [id number] [address] [place] [address] Mar, Acute non-recurrent frontal sinusitis J01.10 [place] [address] [address] 17 Mar, 2019 Type 2 diabetes mellitus without complic ations E11.9 [place] [address] [address] Mar, Type 2 diabetes mellitus without complic ations E11.9 ; Essential hypertension I10 and Chronic bronchitis, unspecified chronic bronchitis type J42 [place] [id number] [place] [address] Feb, [facility] [address] [address] Dec, [facility] [address] [address] Dec, [place] [address] [address] November, [facility] [place] [place] [address] [place] [address] November, [facility] [address] [place] [address] November, [facility] [address] [place] [address] November, Allergic rhinitis J30.9 [facility] [id number] [place] [address] November, [facility] [id number] [place] [address] November, [facility] [id number] [place] [address] November, [facility] [id number] [place] [address] Oct, [facility] [address] [address] Oct, Essential hypertension I10 [facility] [id number] [place] [address] Oct, [facility] [id number] [place] [address] Oct, [facility] [id number] [place] [address] Oct, [facility] [id number] [place] [address] Oct, [facility] [id number] [place] [address] Oct, [facility] [address] [facility] [id number] [place] [address] Oct, Shortness of breath R06.02 a nd Oxygen decrease R09.02 [facility] [id number] [place] [address] Oct, [facility] [id number] [place] [address] Sep, COPD (chronic obstructive pulmonary dise ase) with emphysema J43.9 ; On home oxygen therapy Z99.81 and Hypothyroidism E03.9 [facility] [address] [address] Sep, [facility] [address] [address] Sep, [place] [address] [address] Sep, Acute on chronic respiratory failure wit h hypoxia J96.21 ; Hypothyroidism E03.9 ; COPD (chronic obstructive pulmonary disease) with emphysema J43.9 ; Essential hypertension I10 ; Type 2 diabetes mellitus with other specified complication E11.69 ; 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 and Hyperlipidemia LDL goal <70 E78.5 [place] [address] [address] Sep, Allergic rhinitis J30.9 [place] [address] [address] Aug, Allergic rhinitis J30.9 [place] [address] [address] Aug, [place] [address] [address] Aug, [place] [address] [address] Aug, [place] [address] [address] Jul, [place] [address] [address] Jul, Type 2 diabetes mellitus with other spec ified complication E11.69 [place] [address] [address] Jun, [place] [address] [address] May, Hyperlipidemia LDL goal <70 E78.5 ; COPD (chronic obstructive pulmonary disease) with emphysema J43.9 and Encounter for immunization Z23 [place] [address] [address] May, [facility] [address] [facility] [id number] [address] [place] [address] May, Acute upper respiratory infe ction J06.9 [facility] [address] [address] May, Essential hypertension I10 [facility] [address] [address] May, Essential hypertension I10 [facility] [address] [address] Apr, Essential hypertension I10 [place] [address] [address] Apr, [facility] [address] [address] Apr, COPD (chronic obstructive pulmonary dise ase) with emphysema J43.9 [place] [address] [address] Apr, [facility] [address] [address] Mar, [facility] [address] [address] Feb, Type 2 diabetes mellitus with other spec ified complication E11.69 ; [facility] current use of [...] rhinitis due to pollen J30.1 [facility] [address] [address] November, Pneumonia of right lower lobe due to inf ectious organism J18.1 ; 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 ; Type [...] without esophagitis K21.9 and Allergic rhinitis J30.9 [place] [address] [address] November, [place] [address] [address] Sep, [place] [address] [address] Sep, [place] [address] [address] Sep, [place] [address] [address] Sep, [facility] [address] [place] [address] Jul, Encounter for immunization Z 23 [facility] [address] [address] Jun, Subacute maxillary sinusitis J01.00 [place] [address] [address] May, [place] [address] [address] May, [place] [address] [address] May, Type II diabetes mellitus E11.9 ; Hypoth yroidism E03.9 ; COPD (chronic obstructive pulmonary disease) with emphysema J43.9 ; Cough R05 ; COPD with exacerbation J44.1 and Pneumonia of right lower lobe due to infectious organism J18.1 [place] [address] [address] 08 Mar, 2017 Hyperlipidemia, unspecified hyperlipidem ia type E78.5 [place] [address] [address] Mar, Hypothyroidism E03.9 and Hyperlipidemia, unspecified hyperlipidemia type E78.5 [place] [address] [address] Feb, Type II diabetes mellitus E11.9 ; [...] full remission F33.42 and Urinary incontinence R32 [place] [address] [address] Jan, [place] [address] [address] Jan, [place] [address] [address] November, [place] [address] [address] Sep, Type II diabetes mellitus E11.9 ; [...] and Tinea pedis of both feet B35.3 [place] [address] [address] Jun, [facility] [address] [facility] [id number] [address] [place] [address] Jun, Acute upper respiratory infe ction, unspecified J06.9 and Other viral agents as the cause of diseases classified elsewhere B97.[address] [address] May, [address] [address] May, Type 2 diabetes mellitus with hyperglyce [...] thrush B37.0 and Encounter for immunization Z23 [address] [address] Apr, [address] [address] Apr, [address] [address] Mar, [address] [address] Dec, [address] [address] Dec, [address] [address] Dec, Encounter for well woman exam with monicai ne gynecological exam Z01.419 ; Encounter for screening for malignant neoplasm of cervix Z12.4 ; Screening mammogram, encounter for Z12.31 ; Encounter for screening breast examination Z12.39 ; On home oxygen therapy Z99.81 ; COPD (chronic obstructive pulmonary disease) with emphysema J43.9 ; Heat rash L74.0 ; Type II diabetes mellitus E11.9 and Hypothyroidism E03.[address] [address] November, [address] [address] November, Type II diabetes mellitus E11.9 ; Allerg ic rhinitis J30.9 ; Hypothyroidism E03.9 ; Obesity due to excess calories E66.09 ; Urinary incontinence R32 ; Gastroesophageal reflux disease without esophagitis K21.9 and Essential hypertension I10 [facility] [address] [address] Oct, [facility] [address] [address] Sep, [facility] [address] [address] Sep, [facility] [address] [facility] [id number] [address] [place] [address] Aug, Acute maxillary sinusitis J0 1.00 [place] [address] [address] Aug, [place] [address] [address] Aug, [place] [address] [address] Aug, Type II diabetes mellitus E11.[address] [address] Aug, Type II diabetes mellitus E11.9 ; Hypoth yroidism E03.9 ; COPD (chronic obstructive pulmonary disease) with emphysema J43.9 ; Obesity due to excess calories E66.09 ; Urinary incontinence R32 ; Anemia D64.9 ; Microcytic anemia D50.9 and Allergic rhinitis J30.9 [place] [address] [address] May, Upper respiratory symptom R09.[address] [address] May, Oral thrush B37.[address] [address] Apr, Hypothyroidism E03.9 and Microcytic anem ia D50.9 [place] [address] [address] Apr, Encounter for long-term current use of m edication Z79.899 ; Hypothyroidism E03.9 ; Microcytic anemia D50.9 ; Type 2 diabetes mellitus without complication E11.9 ; Essential hypertension I10 and Mixed incontinence N39.46 [place] [address] [address] Apr, [facility] [address] [address] Mar, [place] [address] [address] Mar, [place] [address] [address] Mar, [place] [address] [address] Mar, [place] [address] [address] Mar, [place] [address] [address] Mar, [place] [address] [address] Mar, [place] [address] [address] Feb, Cough 786.2 ; Wheezing 786.07 ; Hypothyr oidism 244.9 and Encounter for long-term current use of medication V58.69 [place] [address] [address] Feb, Diabetes type 2, uncontrolled 250.02 ; D epression 311 ; Encounter for long-term current use of medication V58.69 and Hypothyroidism 244.9 [place] [address] [address] Feb, [place] [address] [address] Jan, [facility] [address] [facility] [id number] [place] [address] 28 Oct, 2014 [facility] [address] [id number] [place] [address] Oct, [facility] [address] [id number] [place] [address] Oct, [facility] [address] [id number] [place] [address] Sep, [facility] [address] [id number] [place] [address] Sep, [facility] [address] [id number] [place] [address] Sep, [facility] [address] [id number] [place] [address] Aug, [facility] [address] [id number] [place] [address] Aug, [facility] [address] [id number] [place] [address] Jul, [facility] [address] [id number] [place] [address] Jul, [facility] [address] [id number] [place] [address] Jul, [facility] [address] [id number] [place] [address] Jul, [facility] [address] [id number] [place] [address] Jul, [facility] [address] [id number] [place] [address] Jul, [facility] [address] [id number] [place] [address] Jul, [facility] [address] [id number] [place] [address] Jul, [facility] [address] [id number] [place] [address] Jun, [facility] [address] [id number] [place] [address] Jun, [facility] [address] [id number] [place] [address] May, [facility] [address] [id number] [place] [address] May, [facility] [address] [id number] [place] [address] May, [facility] [address] [id number] [place] [address] Apr, [facility] [address] [id number] [place] [address] Apr, [facility] [address] [id number] [place] [address] Apr, [facility] [address] [id number] [place] [address] Apr, [facility] [address] [id number] [place] [address] Apr, [facility] [address] [id number] [place] [address] Apr, [facility] [address] [id number] [place] [address] Mar, [facility] [address] [id number] [place] [address] Mar, [facility] [address] [id number] [place] [address] Mar, [facility] [address] [id number] [place] [address] Mar, [facility] [address] [id number] [place] [address] Sep, [facility] [address] [id number] [place] [address] Sep, [facility] [address] [id number] [place] [address] Sep, [facility] [address] [id number] [place] [address] Sep, [facility] [address] [id number] [place] [address] Aug, [facility] [address] [id number] [place] [address] Aug, [facility] [address] [id number] [place] [address] Aug, [facility] [address] [id number] [place] [address] Aug, [facility] [address] [id number] [place] [address] Aug, [facility] [address] [id number] [place] [address] Aug, [facility] [address] [id number] [place] [address] Jul, [facility] [address] [id number] [place] [address] Jul, [facility] [address] [id number] [place] [address] Jul, [facility] [address] [id number] [place] [address] Jul, [facility] [address] [id number] [place] [address] Jun, [facility] [address] [id number] [place] [address] Jun, [facility] [address] [id number] [place] [address] May, [facility] [address] [id number] [place] [address] May, [facility] [address] [id number] [facility] [address] Apr, [facility] [address] [id number] [place] [address] Apr, [facility] [address] [facility] [id number] [place] [address] Apr, [facility] [address] [id number] [place] [address] Mar, [facility] [address] [facility] [id number] [place] [address] Mar, [facility] [address] [facility] [id number] [place] [address] Mar, [facility] [address] [id number] [place] [address] Mar, [facility] [address] [id number] [place] [address] Feb, [facility] [address] [id number] [place] [address] Jan, [facility] [address] [id number] [place] [address] Jan, [facility] [address] [id number] [place] [address] Jan, [facility] [address] [id number] [place] [address] Jan, [facility] [address] [id number] [place] [address] Dec, [facility] [address] [facility] [id number] [place] [address] Dec, [facility] [address] [id number] [place] [address] Dec, [facility] [address] [id number] [place] [address] Dec, [facility] [address] [id number] [place] [address] Dec, [facility] [address] [id number] [place] [address] Dec, [facility] [address] [id number] [place] [address] November, [facility] [address] [id number] [place] [address] November, [facility] [address] [id number] [place] [address] November, [facility] [address] [id number] [place] [address] Oct, [facility] [address] [id number] [place] [address] Oct, [facility] [address] [id number] [place] [address] Sep, [facility] [address] [id number] [place] [address] Sep, [facility] [address] [id number] [place] [address] Sep, [facility] [address] [id number] [place] [address] Sep, [facility] [address] [id number] [place] [address] Sep, [facility] [address] [id number] [place] [address] Aug, [facility] [address] [id number] [place] [address] Aug, [facility] [address] [id number] [place] [address] Aug, [facility] [address] [id number] [place] [address] Aug, [facility] [address] [id number] [place] [address] Aug, [facility] [address] [id number] [place] [address] Jul, [facility] [address] [id number] [place] [address] Jul, [facility] [address] [id number] [place] [address] Jun, [facility] [address] [id number] [place] [address] Jun, [facility] [address] [id number] [place] [address] Jun, [facility] [address] [id number] [place] [address] Jun, [facility] [address] [id number] [place] [address] Jun, [facility] [address] [id number] [place] [address] Jun, [facility] [address] [id number] [place] [address] Jun, [facility] [address] [id number] [place] [address] Jun, [facility] [address] [id number] [place] [address] Jun, [facility] [address] [id number] [place] [address] May, [facility] [address] [id number] [place] [address] May, [facility] [address] [id number] [place] [address] May, [facility] [address] [id number] [place] [address] May, [facility] [address] [id number] [place] [address] May, [facility] [address] [id number] [place] [address] May, [facility] [address] [id number] [place] [address] May, [facility] [address] [id number] [place] [address] Apr, [facility] [address] [id number] [place] [address] Mar, [facility] [address] [id number] [place] [address] Mar, [facility] [address] [id number] [place] [address] Feb, [facility] [address] [id number] [place] [address] Feb, [facility] [address] [id number] [place] [address] Feb, [facility] [address] [id number] [place] [address] Feb, [facility] [address] [id number] [place] [address] Jan, [facility] [address] [id number] [place] [address] Jan, [facility] [address] [id number] [place] [address] Jan, [facility] [address] [id number] [place] [address] Jan, [facility] [address] [id number] [place] [address] Dec, [facility] [address] [id number] [place] [address] Dec, [facility] [address] [id number] [place] [address] 17 Dec, 2011 [facility] [address] [id number] [place] [address] 15 Dec, 2011 [facility] [address] [id number] [place] [address] Dec, [facility] [id number] [place] [address] Sep, [facility] [id number] [place] [address] Aug, [facility] [id number] [place] [address] Jul, [facility] [id number] [place] [address] Jun, [facility] [id number] [place] [address] Jun, [facility] [address] [address] Jun, [facility] [id number] [place] [address] Jun, [facility] [id number] [place] [address] May, [facility] [id number] [place] [address] May, [facility] [id number] [place] [address] Apr, [facility] [id number] [place] [address] Jun, [facility] [address] [address] Apr, IMMUNIZATIONS No Known Immunizations SOCIAL HISTORY Never Assessed REASON FOR VISIT PLAN OF CARE VITAL SIGNS Height 66 in 2013-10-01 Weight 262.56 lbs 2013-10-01 Temperature 97.9 degrees Fahrenheit 2013-10-01 Heart Rate 100 bpm 2013-10-01 Respiratory Rate 22 2013-10-01 Blood pressure systolic 118 mmHg 2013-10-01 Blood pressure diastolic 80 mmHg 2013-10-01 MEDICATIONS Unknown Medications RESULTS No Results PROCEDURES Procedure Date Ordered Result Body Site ASSAY THYROID STIM HORMONE October 01, 2013 GLYCATED HEMOGLOBIN TEST October 01, 2013 MICROALBUMIN, SEMIQUANT October 01, 2013 LIPID PANEL October 01, 2013 COMPREHEN METABOLIC PANEL October 01, 2013 VENIPUNCT, ROUTINE* October 01, 2013 INSTRUCTIONS MEDICATIONS ADMINISTERED No Known [...] History pneumonia 10/07 Hospitalization History [facility] 03/09/19 Hospitalization History via [email or web address] 07/17/19
--- OUTSIDE RECORDS SUMMARY | 2019-12-24 00:32 | XMS REPORT ---
Author Author Don Jay Doctor Organization [facility] Address Unknown Phone Unavailable Care Team Providers Care Compound Mixer Name Role Phone Migration, Doctor Unavailable Unavailable PROBLEMS Type Condition ICD9-CM Code [id number] Code Onset Dates Condition S tatus SNOMED Code Problem Allergic rhinitis J30.9 Active 61 524091 Problem Urinary incontinence R32 Active 051805134 Problem Microcytic anemia D50.9 Active 23 8527341 Problem Hypothyroidism E03.9 Active 59446 008 Problem Gastroesophageal reflux disease without esophagitis K21.9 Active 672694640 Problem Essential hypertension I10 Active 89609314 Problem Tobacco abuse Z72.0 Active 081961 000 Problem Chronic bronchitis, unspecified chronic bronchitis type J42 Active 58063289 Problem On home oxygen therapy Z99.81 Active 537399592903 Problem Parotiditis K11.20 Active 32515144 Problem 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 Active 81808841 Problem Type 2 diabetes mellitus with other specified complication E11.69 Active 76664031 Problem Hyperlipidemia LDL goal <70 E78.5 Ac tive 56676742 Problem Morbid (severe) obesity due to excess calories E66 .01 Active 525220255 Problem Seasonal allergic rhinitis due to pollen J30.1 Active 34204345 ALLERGIES No Information ENCOUNTERS Encounter Location Date Diagnosis [facility] [address] [id number] [place] [address] Sep, [facility] [address] [id number] [place] [address] 07 Aug, 2019 [facility] [address] [facility] [place] [id number] [place] [address] Aug, Essential hypertension I10 [facility] [address] [facility] [id number] [address] [place] [address] Jul, Parotiditis K11.20 [facility] [address] [id number] [place] [address] Jul, [facility] [id number] [place] [address] Jul, Type II diabetes mellitus E11.9 [facility] [id number] [place] [address] Jul, [facility] [id number] [place] [address] Jul, Pneumonia due to infectious organism, un specified laterality, unspecified part of lung J18.9 ; On home oxygen therapy Z99.81 ; Type II diabetes mellitus E11.9 ; Tobacco use disorder F17.200 and Encounter for tobacco use cessation counseling Z71.6 [place] [address] [address] 14 Apr, 2019 [facility] [address] [facility] [id number] [address] [place] [address] Mar, Acute non-recurrent frontal sinusitis J01.10 [place] [address] [address] 17 Mar, 2019 Type 2 diabetes mellitus without complic ations E11.9 [place] [address] [address] Mar, Type 2 diabetes mellitus without complic ations E11.9 ; Essential hypertension I10 and Chronic bronchitis, unspecified chronic bronchitis type J42 [place] [id number] [place] [address] Feb, [facility] [address] [address] Dec, [facility] [address] [address] Dec, [place] [address] [address] November, [facility] [place] [address] [place] [address] November, [facility] [place] [address] [place] [address] November, [facility] [place] [address] [place] [address] November, Allergic rhinitis J30.9 [facility] [id number] [place] [address] November, [facility] [id number] [place] [address] November, [facility] [id number] [place] [address] November, [facility] [id number] [place] [address] Oct, [facility] [address] [address] Oct, Essential hypertension I10 [facility] [id number] [place] [address] Oct, [facility] [id number] [place] [address] Oct, [facility] [id number] [place] [address] Oct, [facility] [id number] [place] [address] Oct, [facility] [id number] [place] [address] Oct, [facility] [address] [facility] [id number] [place] [address] Oct, Shortness of breath R06.02 a nd Oxygen decrease R09.02 [facility] [id number] [place] [address] Oct, [facility] [id number] [place] [address] Sep, COPD (chronic obstructive pulmonary dise ase) with emphysema J43.9 ; On home oxygen therapy Z99.81 and Hypothyroidism E03.9 [facility] [address] [address] Sep, [facility] [address] [address] Sep, [place] [address] [address] Sep, Acute on chronic respiratory failure wit h hypoxia J96.21 ; Hypothyroidism E03.9 ; COPD (chronic obstructive pulmonary disease) with emphysema J43.9 ; Essential hypertension I10 ; Type 2 diabetes mellitus with other specified complication E11.69 ; 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 and Hyperlipidemia LDL goal <70 E78.5 [place] [address] [address] Sep, Allergic rhinitis J30.9 [place] [address] [address] Aug, Allergic rhinitis J30.9 [place] [address] [address] Aug, [place] [address] [address] Aug, [place] [address] [address] Aug, [place] [address] [address] Jul, [place] [address] [address] Jul, Type 2 diabetes mellitus with other spec ified complication E11.69 [place] [address] [address] Jun, [place] [address] [address] May, Hyperlipidemia LDL goal <70 E78.5 ; COPD (chronic obstructive pulmonary disease) with emphysema J43.9 and Encounter for immunization Z23 [place] [address] [address] May, [facility] [address] [facility] [id number] [address] [place] [address] May, Acute upper respiratory infe ction J06.9 [facility] [address] [address] May, Essential hypertension I10 [facility] [address] [address] May, Essential hypertension I10 [facility] [address] [address] Apr, Essential hypertension I10 [place] [address] [address] Apr, [facility] [address] [address] Apr, COPD (chronic obstructive pulmonary dise ase) with emphysema J43.9 [place] [address] [address] Apr, [facility] [address] [address] Mar, [facility] [address] [address] Feb, Type 2 diabetes mellitus with other spec ified complication E11.69 ; nursing home current use of insulin Z79.4 ; Essential hypertension I10 ; Hyperlipidemia LDL goal <70 E78.5 ; COPD (chronic obstructive pulmonary disease) with emphysema J43.9 ; Microcytic anemia D50.9 ; Morbid (severe) obesity due to excess calories E66.01 ; Body mass index (BMI) of 39.0-39.9 in adult Z68.39 ; Hypothyroidism E03.9 and Seasonal allergic rhinitis due to pollen J30.1 [facility] [address] [address] November, Pneumonia of right lower lobe due to inf ectious organism J18.1 ; 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 ; Type [...] without esophagitis K21.9 and Allergic rhinitis J30.9 [place] [address] [address] November, [place] [address] [address] Sep, [place] [address] [address] Sep, [place] [address] [address] Sep, [place] [address] [address] Sep, [facility] [address] [place] [address] Jul, Encounter for immunization Z 23 [facility] [address] [address] Jun, Subacute maxillary sinusitis J01.00 [place] [address] [address] May, [place] [address] [address] May, [place] [address] [address] May, Type II diabetes mellitus E11.9 ; Hypoth yroidism E03.9 ; COPD (chronic obstructive pulmonary disease) with emphysema J43.9 ; Cough R05 ; COPD with exacerbation J44.1 and Pneumonia of right lower lobe due to infectious organism J18.1 [place] [address] [address] 08 Mar, 2017 Hyperlipidemia, unspecified hyperlipidem ia type E78.5 [place] [address] [address] Mar, Hypothyroidism E03.9 and Hyperlipidemia, unspecified hyperlipidemia type E78.5 [place] [address] [address] Feb, Type II diabetes mellitus E11.9 ; [...] F33.42 and Urinary incontinence R32 [place] [address] [address] Jan, [place] [address] [address] Jan, [place] [address] [address] November, [place] [address] [address] Sep, Type II diabetes mellitus E11.9 ; [...] and Tinea pedis of both feet B35.3 [place] [address] [address] Jun, [facility] [address] [facility] [id number] [address] [place] [address] Jun, Acute upper respiratory infe ction, unspecified J06.9 and Other viral agents as the cause of diseases classified elsewhere B97.[address] [address] May, [address] [address] May, Type 2 diabetes mellitus with hyperglyce [...] thrush B37.0 and Encounter for immunization Z23 [address] [address] Apr, [address] [address] Apr, [address] [address] Mar, [address] [address] Dec, [address] [address] Dec, [address] [address] Dec, Encounter for well woman exam with monicai ne gynecological exam Z01.419 ; Encounter for screening for malignant neoplasm of cervix Z12.4 ; Screening mammogram, encounter for Z12.31 ; Encounter for screening breast examination Z12.39 ; On home oxygen therapy Z99.81 ; COPD (chronic obstructive pulmonary disease) with emphysema J43.9 ; Heat rash L74.0 ; Type II diabetes mellitus E11.9 and Hypothyroidism E03.[address] [address] November, [address] [address] November, Type II diabetes mellitus E11.9 ; Allerg ic rhinitis J30.9 ; Hypothyroidism E03.9 ; Obesity due to excess calories E66.09 ; Urinary incontinence R32 ; Gastroesophageal reflux disease without esophagitis K21.9 and Essential hypertension I10 [facility] [address] [address] Oct, [facility] [address] [address] Sep, [facility] [address] [address] Sep, [facility] [address] [facility] [id number] [address] [place] [address] Aug, Acute maxillary sinusitis J0 1.00 [place] [address] [address] Aug, [place] [address] [address] Aug, [place] [address] [address] Aug, Type II diabetes mellitus E11.[address] [address] Aug, Type II diabetes mellitus E11.9 ; Hypoth yroidism E03.9 ; COPD (chronic obstructive pulmonary disease) with emphysema J43.9 ; Obesity due to excess calories E66.09 ; Urinary incontinence R32 ; Anemia D64.9 ; Microcytic anemia D50.9 and Allergic rhinitis J30.9 [place] [address] [address] May, Upper respiratory symptom R09.[address] [address] May, Oral thrush B37.[address] [address] Apr, Hypothyroidism E03.9 and Microcytic anem ia D50.9 [place] [address] [address] Apr, Encounter for long-term current use of m edication Z79.899 ; Hypothyroidism E03.9 ; Microcytic anemia D50.9 ; Type 2 diabetes mellitus without complication E11.9 ; Essential hypertension I10 and Mixed incontinence N39.46 [place] [address] [address] Apr, [facility] [address] [address] Mar, [place] [address] [address] Mar, [place] [address] [address] Mar, [place] [address] [address] Mar, [place] [address] [address] Mar, [place] [address] [address] Mar, [place] [address] [address] Mar, [place] [address] [address] Feb, Cough 786.2 ; Wheezing 786.07 ; Hypothyr oidism 244.9 and Encounter for long-term current use of medication V58.69 [place] [address] [address] Feb, Diabetes type 2, uncontrolled 250.02 ; D epression 311 ; Encounter for long-term current use of medication V58.69 and Hypothyroidism 244.9 [place] [address] [address] Feb, [place] [address] [address] Jan, [facility] [address] [facility] [id number] [place] [address] 28 Oct, 2014 [facility] [address] [id number] [place] [address] Oct, [facility] [address] [id number] [place] [address] Oct, [facility] [address] [id number] [place] [address] Sep, [facility] [address] [id number] [place] [address] Sep, [facility] [address] [id number] [place] [address] Sep, [facility] [address] [id number] [place] [address] Aug, [facility] [address] [id number] [place] [address] Aug, [facility] [address] [id number] [place] [address] Jul, [facility] [address] [id number] [place] [address] Jul, [facility] [address] [id number] [place] [address] Jul, [facility] [address] [id number] [place] [address] Jul, [facility] [address] [id number] [place] [address] Jul, [facility] [address] [id number] [place] [address] Jul, [facility] [address] [id number] [place] [address] Jul, [facility] [address] [id number] [place] [address] Jul, [facility] [address] [id number] [place] [address] Jun, [facility] [address] [id number] [place] [address] Jun, [facility] [address] [id number] [place] [address] May, [facility] [address] [id number] [place] [address] May, [facility] [address] [id number] [place] [address] May, [facility] [address] [id number] [place] [address] Apr, [facility] [address] [id number] [place] [address] Apr, [facility] [address] [id number] [place] [address] Apr, [facility] [address] [id number] [place] [address] Apr, [facility] [address] [id number] [place] [address] Apr, [facility] [address] [id number] [place] [address] Apr, [facility] [address] [id number] [place] [address] Mar, [facility] [address] [id number] [place] [address] Mar, [facility] [address] [id number] [place] [address] Mar, [facility] [address] [id number] [place] [address] Mar, [facility] [address] [id number] [place] [address] Sep, [facility] [address] [id number] [place] [address] Sep, [facility] [address] [id number] [place] [address] Sep, [facility] [address] [id number] [place] [address] Sep, [facility] [address] [id number] [place] [address] Aug, [facility] [address] [id number] [place] [address] Aug, [facility] [address] [id number] [place] [address] Aug, [facility] [address] [id number] [place] [address] Aug, [facility] [address] [id number] [place] [address] Aug, [facility] [address] [id number] [place] [address] Aug, [facility] [address] [id number] [place] [address] Jul, [facility] [address] [id number] [place] [address] Jul, [facility] [address] [id number] [place] [address] Jul, [facility] [address] [id number] [place] [address] Jul, [facility] [address] [id number] [place] [address] Jun, [facility] [address] [id number] [place] [address] Jun, [facility] [address] [id number] [place] [address] May, [facility] [address] [id number] [place] [address] May, [facility] [address] [id number] [facility] [place] [address] Apr, [facility] [address] [id number] [place] [address] Apr, [facility] [address] [facility] [id number] [place] [address] Apr, [facility] [address] [id number] [place] [address] Mar, [facility] [address] [facility] [id number] [place] [address] Mar, [facility] [address] [facility] [id number] [place] [address] Mar, [facility] [address] [id number] [place] [address] Mar, [facility] [address] [id number] [place] [address] Feb, [facility] [address] [id number] [place] [address] Jan, [facility] [address] [id number] [place] [address] Jan, [facility] [address] [id number] [place] [address] Jan, [facility] [address] [id number] [place] [address] Jan, [facility] [address] [id number] [place] [address] Dec, [facility] [address] [facility] [id number] [place] [address] Dec, [facility] [address] [id number] [place] [address] Dec, [facility] [address] [id number] [place] [address] Dec, [facility] [address] [id number] [place] [address] Dec, [facility] [address] [id number] [place] [address] Dec, [facility] [address] [id number] [place] [address] November, [facility] [address] [id number] [place] [address] November, [facility] [address] [id number] [place] [address] November, [facility] [address] [id number] [place] [address] Oct, [facility] [address] [id number] [place] [address] Oct, [facility] [address] [id number] [place] [address] Sep, [facility] [address] [id number] [place] [address] Sep, [facility] [address] [id number] [place] [address] Sep, [facility] [address] [id number] [place] [address] Sep, [facility] [address] [id number] [place] [address] Sep, [facility] [address] [id number] [place] [address] Aug, [facility] [address] [id number] [place] [address] Aug, [facility] [address] [id number] [place] [address] Aug, [facility] [address] [id number] [place] [address] Aug, [facility] [address] [id number] [place] [address] Aug, [facility] [address] [id number] [place] [address] Jul, [facility] [address] [id number] [place] [address] Jul, [facility] [address] [id number] [place] [address] Jun, [facility] [address] [id number] [place] [address] Jun, [facility] [address] [id number] [place] [address] Jun, [facility] [address] [id number] [place] [address] Jun, [facility] [address] [id number] [place] [address] Jun, [facility] [address] [id number] [place] [address] Jun, [facility] [address] [id number] [place] [address] Jun, [facility] [address] [id number] [place] [address] Jun, [facility] [address] [id number] [place] [address] Jun, [facility] [address] [id number] [place] [address] May, [facility] [address] [id number] [place] [address] May, [facility] [address] [id number] [place] [address] May, [facility] [address] [id number] [place] [address] May, [facility] [address] [id number] [place] [address] May, [facility] [address] [id number] [place] [address] May, [facility] [address] [id number] [place] [address] May, [facility] [address] [id number] [place] [address] Apr, [facility] [address] [id number] [place] [address] Mar, [facility] [address] [id number] [place] [address] Mar, [facility] [address] [id number] [place] [address] Feb, [facility] [address] [id number] [place] [address] Feb, [facility] [address] [id number] [place] [address] Feb, [facility] [address] [id number] [place] [address] Feb, [facility] [address] [id number] [place] [address] Jan, [facility] [address] [id number] [place] [address] Jan, [facility] [address] [id number] [place] [address] Jan, [facility] [facility] [address] [id number] [place] [address] Jan, [facility] [address] [id number] [place] [address] Dec, [facility] [address] [id number] [place] [address] Dec, [facility] [address] [id number] [place] [address] 17 Dec, 2011 [facility] [address] [id number] [place] [address] 15 Dec, 2011 [facility] [address] [id number] [place] [address] Dec, [facility] [address] [id number] [place] [address] Sep, [facility] [address] [id number] [place] [address] Aug, [facility] [address] [id number] [place] [address] Jul, [facility] [id number] [place] [address] Jun, [facility] [id number] [place] [address] Jun, [facility] [id number] [place] [address] Jun, [facility] [id number] [place] [address] Jun, [facility] [id number] [place] [address] May, [facility] [id number] [place] [address] May, [facility] [id number] [place] [address] Apr, [facility] [id number] [place] [address] Jun, [facility] [id number] [place] [address] Apr, IMMUNIZATIONS No Known Immunizations SOCIAL HISTORY [...] 11/2017 Hospitalization History pneumonia 10/07 Hospitalization History [facility] 03/09/19 Hospitalization History via [facility]. 07/17/19
--- OUTSIDE RECORDS SUMMARY | 2019-12-24 00:32 | XMS REPORT ---
Author Author Don Jay Doctor Organization [facility] Address Unknown Phone Unavailable Care Team Providers Care Show Operations Supervisor Name Role Phone Migration, Doctor Unavailable Unavailable PROBLEMS Type Condition ICD9-CM Code ZSO69-GU Code Onset Dates Condition S tatus SNOMED Code Problem Allergic rhinitis J30.9 Active 61 638748 Problem Urinary incontinence R32 Active 916668160 Problem Microcytic anemia D50.9 Active 23 1925382 Problem Hypothyroidism E03.9 Active 40578 008 Problem Gastroesophageal reflux disease without esophagitis K21.9 Active 890657739 Problem Essential hypertension I10 Active 31649577 Problem Tobacco abuse Z72.0 Active 260451 000 Problem Chronic bronchitis, unspecified chronic bronchitis type J42 Active 57762484 Problem On home oxygen therapy Z99.81 Active 113698380170 Problem Parotiditis K11.20 Active 21905573 Problem 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 Active 09166932 Problem Type 2 diabetes mellitus with other specified complication E11.69 Active 73190145 Problem Hyperlipidemia LDL goal <70 E78.5 Ac tive 79900140 Problem Morbid (severe) obesity due to excess calories E66 .01 Active 695446702 Problem Seasonal allergic rhinitis due to pollen J30.1 Active 11988762 ALLERGIES No Information ENCOUNTERS Encounter Location Date Diagnosis [facility] [address] [id number] [place] [address] Sep, [facility] [address] [id number] [place] [address] 07 Aug, 2019 [facility] [address] [facility] [id number] [place] [address] Aug, Essential hypertension I10 [facility] [address] [facility] [id number] [address] [place] [address] Jul, Parotiditis K11.20 [facility] [address] [id number] [place] [address] Jul, [facility] [id number] [place] [address] Jul, Type II diabetes mellitus E11.9 [facility] [address] [place] [address] Jul, [facility] [address] [place] [address] Jul, Pneumonia due to infectious organism, un specified laterality, unspecified part of lung J18.9 ; On home oxygen therapy Z99.81 ; Type II diabetes mellitus E11.9 ; Tobacco use disorder F17.200 and Encounter for tobacco use cessation counseling Z71.6 [place] [address] [address] 14 Apr, 2019 [facility] [address] [facility] [id number] [address] [place] [address] Mar, Acute non-recurrent frontal sinusitis J01.10 [place] [address] [address] 17 Mar, 2019 Type 2 diabetes mellitus without complic ations E11.9 [place] [address] [address] Mar, Type 2 diabetes mellitus without complic ations E11.9 ; Essential hypertension I10 and Chronic bronchitis, unspecified chronic bronchitis type J42 [place] [address] [place] [address] Feb, [facility] [address] [address] Dec, [facility] [address] [address] Dec, [place] [address] [address] November, [facility] [place] [address] [place] [address] November, [facility] [place] [address] [place] [address] November, [facility] [place] [address] [place] [address] November, Allergic rhinitis J30.9 [facility] [id number] [place] [address] November, [facility] [id number] [place] [address] November, [facility] [address] [place] [address] November, [facility] [address] [place] [address] Oct, [facility] [address] [address] Oct, Essential hypertension I10 [facility] [id number] [place] [address] Oct, [facility] [address] [place] [address] Oct, [facility] [id number] [place] [address] Oct, [facility] [address] [place] [address] Oct, [facility] [id number] [place] [address] Oct, [facility] [address] [facility] [id number] [address] [address] Oct, Shortness of breath R06.02 a nd Oxygen decrease R09.02 [facility] [id number] [place] [address] Oct, [facility] [address] [place] [address] Sep, COPD (chronic obstructive pulmonary dise ase) with emphysema J43.9 ; On home oxygen therapy Z99.81 and Hypothyroidism E03.9 [facility] [address] [address] Sep, [facility] [address] [address] Sep, [place] [address] [address] Sep, Acute on chronic respiratory failure wit h hypoxia J96.21 ; Hypothyroidism E03.9 ; COPD (chronic obstructive pulmonary disease) with emphysema J43.9 ; Essential hypertension I10 ; Type 2 diabetes mellitus with other specified complication E11.69 ; 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 and Hyperlipidemia LDL goal <70 E78.5 [place] [address] [address] Sep, Allergic rhinitis J30.9 [place] [address] [address] Aug, Allergic rhinitis J30.9 [place] [address] [address] Aug, [place] [address] [address] Aug, [place] [address] [address] Aug, [place] [address] [address] Jul, [place] [address] [address] Jul, Type 2 diabetes mellitus with other spec ified complication E11.69 [place] [address] [address] Jun, [place] [address] [address] May, Hyperlipidemia LDL goal <70 E78.5 ; COPD (chronic obstructive pulmonary disease) with emphysema J43.9 and Encounter for immunization Z23 [place] [address] [address] May, [facility] [address] [facility] [id number] [address] [place] [address] May, Acute upper respiratory infe ction J06.9 [facility] [address] [address] May, Essential hypertension I10 [facility] [address] [address] May, Essential hypertension I10 [facility] [address] [address] Apr, Essential hypertension I10 [place] [address] [address] Apr, [facility] [address] [address] Apr, COPD (chronic obstructive pulmonary dise ase) with emphysema J43.9 [place] [address] [address] Apr, [facility] [address] [address] Mar, [facility] [address] [address] Feb, Type 2 diabetes mellitus with other spec ified complication E11.69 ; [facility] current use of insulin Z79.4 ; Essential hypertension I10 ; Hyperlipidemia LDL goal <70 E78.5 ; COPD (chronic obstructive pulmonary disease) with emphysema J43.9 ; Microcytic anemia D50.9 ; Morbid (severe) obesity due to excess calories E66.01 ; Body mass index (BMI) of 39.0-39.9 in adult Z68.39 ; Hypothyroidism E03.9 and Seasonal allergic rhinitis due to pollen J30.1 [facility] [address] [address] November, Pneumonia of right lower lobe due to inf ectious organism J18.1 ; continuous churn buttermaker current use of [...] without esophagitis K21.9 and Allergic rhinitis J30.9 [place] [address] [address] November, [place] [address] [address] Sep, [place] [address] [address] Sep, [place] [address] [address] Sep, [place] [address] [address] Sep, [facility] [address] [place] [address] Jul, Encounter for immunization Z 23 [facility] [address] [address] Jun, Subacute maxillary sinusitis J01.00 [place] [address] [address] May, [place] [address] [address] May, [place] [address] [address] May, Type II diabetes mellitus E11.9 ; Hypoth yroidism E03.9 ; COPD (chronic obstructive pulmonary disease) with emphysema J43.9 ; Cough R05 ; COPD with exacerbation J44.1 and Pneumonia of right lower lobe due to infectious organism J18.1 [place] [address] [address] 08 Mar, 2017 Hyperlipidemia, unspecified hyperlipidem ia type E78.5 [place] [address] [address] Mar, Hypothyroidism E03.9 and Hyperlipidemia, unspecified hyperlipidemia type E78.5 [place] [address] [address] Feb, Type II diabetes mellitus E11.9 ; [...] F33.42 and Urinary incontinence R32 [place] [address] [address] Jan, [place] [address] [address] Jan, [place] [address] [address] November, [place] [address] [address] Sep, Type II diabetes mellitus E11.9 ; [...] and Tinea pedis of both feet B35.3 [place] [address] [address] Jun, [facility] [address] [facility] [id number] [address] [place] [address] Jun, Acute upper respiratory infe ction, unspecified J06.9 and Other viral agents as the cause of diseases classified elsewhere B97.[address] [address] May, [address] [address] May, Type 2 diabetes mellitus with hyperglyce [...] thrush B37.0 and Encounter for immunization Z23 [address] [address] Apr, [address] [address] Apr, [address] [address] Mar, [address] [address] Dec, [address] [address] Dec, [address] [address] Dec, Encounter for well woman exam with monicai ne gynecological exam Z01.419 ; Encounter for screening for malignant neoplasm of cervix Z12.4 ; Screening mammogram, encounter for Z12.31 ; Encounter for screening breast examination Z12.39 ; On home oxygen therapy Z99.81 ; COPD (chronic obstructive pulmonary disease) with emphysema J43.9 ; Heat rash L74.0 ; Type II diabetes mellitus E11.9 and Hypothyroidism E03.[address] [address] November, [address] [address] November, Type II diabetes mellitus E11.9 ; Allerg ic rhinitis J30.9 ; Hypothyroidism E03.9 ; Obesity due to excess calories E66.09 ; Urinary incontinence R32 ; Gastroesophageal reflux disease without esophagitis K21.9 and Essential hypertension I10 [facility] [address] [address] Oct, [facility] [address] [address] Sep, [facility] [address] [address] Sep, [facility] [address] [facility] [id number] [address] [place] [address] Aug, Acute maxillary sinusitis J0 1.00 [place] [address] [address] Aug, [place] [address] [address] Aug, [place] [address] [address] Aug, Type II diabetes mellitus E11.[address] [address] Aug, Type II diabetes mellitus E11.9 ; Hypoth yroidism E03.9 ; COPD (chronic obstructive pulmonary disease) with emphysema J43.9 ; Obesity due to excess calories E66.09 ; Urinary incontinence R32 ; Anemia D64.9 ; Microcytic anemia D50.9 and Allergic rhinitis J30.9 [place] [address] [address] May, Upper respiratory symptom R09.[address] [address] May, Oral thrush B37.[address] [address] Apr, Hypothyroidism E03.9 and Microcytic anem ia D50.9 [place] [address] [address] Apr, Encounter for long-term current use of m edication Z79.899 ; Hypothyroidism E03.9 ; Microcytic anemia D50.9 ; Type 2 diabetes mellitus without complication E11.9 ; Essential hypertension I10 and Mixed incontinence N39.46 [place] [address] [address] Apr, [facility] [address] [address] Mar, [place] [address] [address] Mar, [place] [address] [address] Mar, [place] [address] [address] Mar, [place] [address] [address] Mar, [place] [address] [address] Mar, [place] [address] [address] Mar, [place] [address] [address] Feb, Cough 786.2 ; Wheezing 786.07 ; Hypothyr oidism 244.9 and Encounter for long-term current use of medication V58.69 [place] [address] [address] Feb, Diabetes type 2, uncontrolled 250.02 ; D epression 311 ; Encounter for long-term current use of medication V58.69 and Hypothyroidism 244.9 [place] [address] [address] Feb, [place] [address] [address] Jan, [facility] [address] [facility] [id number] [place] [address] 28 Oct, 2014 [facility] [address] [id number] [place] [address] Oct, [facility] [address] [id number] [place] [address] Oct, [facility] [address] [id number] [place] [address] Sep, [facility] [address] [id number] [place] [address] Sep, [facility] [address] [id number] [place] [address] Sep, [facility] [address] [id number] [place] [address] Aug, [facility] [address] [id number] [place] [address] Aug, [facility] [address] [id number] [place] [address] Jul, [facility] [address] [id number] [place] [address] Jul, [facility] [address] [id number] [place] [address] Jul, [facility] [address] [id number] [place] [address] Jul, [facility] [address] [id number] [place] [address] Jul, [facility] [address] [id number] [place] [address] Jul, [facility] [address] [id number] [place] [address] Jul, [facility] [address] [id number] [place] [address] Jul, [facility] [address] [id number] [place] [address] Jun, [facility] [address] [id number] [place] [address] Jun, [facility] [address] [id number] [place] [address] May, [facility] [address] [id number] [place] [address] May, [facility] [address] [id number] [place] [address] May, [facility] [address] [id number] [place] [address] Apr, [facility] [address] [id number] [place] [address] Apr, [facility] [address] [id number] [place] [address] Apr, [facility] [address] [id number] [place] [address] Apr, [facility] [address] [id number] [place] [address] Apr, [facility] [address] [id number] [place] [address] Apr, [facility] [address] [id number] [place] [address] Mar, [facility] [address] [id number] [place] [address] Mar, [facility] [address] [id number] [place] [address] Mar, [facility] [address] [id number] [place] [address] Mar, [facility] [address] [id number] [place] [address] Sep, [facility] [address] [id number] [place] [address] Sep, [facility] [address] [id number] [place] [address] Sep, [facility] [address] [id number] [place] [address] Sep, [facility] [address] [id number] [place] [address] Aug, [facility] [address] [id number] [place] [address] Aug, [facility] [address] [id number] [place] [address] Aug, [facility] [address] [id number] [place] [address] Aug, [facility] [address] [id number] [place] [address] Aug, [facility] [address] [id number] [place] [address] Aug, [facility] [address] [id number] [place] [address] Jul, [facility] [address] [id number] [place] [address] Jul, [facility] [address] [id number] [place] [address] Jul, [facility] [address] [id number] [place] [address] Jul, [facility] [address] [id number] [place] [address] Jun, [facility] [address] [id number] [place] [address] Jun, [facility] [address] [id number] [place] [address] May, [facility] [address] [id number] [place] [address] May, [facility] [address] [id number] [facility] [place] [address] Apr, [facility] [address] [id number] [place] [address] Apr, [facility] [address] [facility] [id number] [place] [address] Apr, [facility] [address] [id number] [place] [address] Mar, [facility] [address] [facility] [id number] [place] [address] Mar, [facility] [address] [facility] [id number] [place] [address] Mar, [facility] [address] [id number] [place] [address] Mar, [facility] [address] [id number] [place] [address] Feb, [facility] [address] [id number] [place] [address] Jan, [facility] [address] [id number] [place] [address] Jan, [facility] [address] [id number] [place] [address] Jan, [facility] [address] [id number] [place] [address] Jan, [facility] [address] [id number] [place] [address] Dec, [facility] [address] [facility] [id number] [place] [address] Dec, [facility] [address] [id number] [place] [address] Dec, [facility] [address] [id number] [place] [address] Dec, [facility] [address] [id number] [place] [address] Dec, [facility] [address] [id number] [place] [address] Dec, [facility] [address] [id number] [place] [address] November, [facility] [address] [id number] [place] [address] November, [facility] [address] [id number] [place] [address] November, [facility] [address] [id number] [place] [address] Oct, [facility] [address] [id number] [place] [address] Oct, [facility] [address] [id number] [place] [address] Sep, [facility] [address] [id number] [place] [address] Sep, [facility] [address] [id number] [place] [address] Sep, [facility] [address] [id number] [place] [address] Sep, [facility] [address] [id number] [place] [address] Sep, [facility] [address] [id number] [place] [address] Aug, [facility] [address] [id number] [place] [address] Aug, [facility] [address] [id number] [place] [address] Aug, [facility] [address] [id number] [place] [address] Aug, [facility] [address] [id number] [place] [address] Aug, [facility] [address] [id number] [place] [address] Jul, [facility] [address] [id number] [place] [address] Jul, [facility] [address] [id number] [place] [address] Jun, [facility] [address] [id number] [place] [address] Jun, [facility] [address] [id number] [place] [address] Jun, [facility] [address] [id number] [place] [address] Jun, [facility] [address] [id number] [place] [address] Jun, [facility] [address] [id number] [place] [address] Jun, [facility] [address] [id number] [place] [address] Jun, [facility] [address] [id number] [place] [address] Jun, [facility] [address] [id number] [place] [address] Jun, [facility] [address] [id number] [place] [address] May, [facility] [address] [id number] [place] [address] May, [facility] [address] [id number] [place] [address] May, [facility] [address] [id number] [place] [address] May, [facility] [address] [id number] [place] [address] May, [facility] [address] [id number] [place] [address] May, [facility] [address] [id number] [place] [address] May, [facility] [address] [id number] [place] [address] Apr, [facility] [address] [id number] [place] [address] Mar, [facility] [address] [id number] [place] [address] Mar, [facility] [address] [id number] [place] [address] Feb, [facility] [address] [id number] [place] [address] Feb, [facility] [address] [id number] [place] [address] Feb, [facility] [address] [id number] [place] [address] Feb, [facility] [address] [id number] [place] [address] Jan, [facility] [address] [id number] [place] [address] Jan, [facility] [address] [id number] [place] [address] Jan, [facility] [address] [id number] [place] [address] Jan, [facility] [address] [id number] [place] [address] Dec, [facility] [address] [id number] [place] [address] Dec, [facility] [address] [id number] [place] [address] 17 Dec, 2011 [facility] [address] [id number] [place] [address] 15 Dec, 2011 [facility] [address] [id number] [place] [address] Dec, [facility] [address] [facility] [id number] [place] [address] Sep, [facility] [address] [id number] [place] [address] Aug, [facility] [address] [id number] [place] [address] Jul, [facility] [id number] [place] [address] Jun, [facility] [id number] [place] [address] Jun, [facility] [id number] [place] [address] Jun, [facility] [id number] [place] [address] Jun, [facility] [id number] [place] [address] May, [facility] [address] [id number] [place] [address] May, [facility] [address] [id number] [place] [address] Apr, [facility] [address] [id number] [place] [address] Jun, [facility] [address] [id number] [place] [address] Apr, IMMUNIZATIONS No Known Immunizations SOCIAL HISTORY [...]
--- OUTSIDE RECORDS SUMMARY | 2019-12-24 00:33 | XMS REPORT ---
Author Author Don Jay Doctor Organization [facility] Address Unknown Phone Unavailable Care Team Providers Care Personal Development Coach Name Role Phone Migration, Doctor Unavailable Unavailable PROBLEMS Type Condition ICD9-CM Code UMB04-GB Code Onset Dates Condition S tatus SNOMED Code Problem Allergic rhinitis J30.9 Active 61 682463 Problem Urinary incontinence R32 Active 617290653 Problem Microcytic anemia D50.9 Active 23 2843371 Problem Hypothyroidism E03.9 Active 30389 008 Problem Gastroesophageal reflux disease without esophagitis K21.9 Active 002568474 Problem Essential hypertension I10 Active 28352801 Problem Tobacco abuse Z72.0 Active 861059 000 Problem Chronic bronchitis, unspecified chronic bronchitis type J42 Active 46436275 Problem On home oxygen therapy Z99.81 Active 260392751884 Problem Parotiditis K11.20 Active 21802682 Problem 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 Active 35754048 Problem Type 2 diabetes mellitus with other specified complication E11.69 Active 21708648 Problem Hyperlipidemia LDL goal <70 E78.5 Ac tive 60254724 Problem Morbid (severe) obesity due to excess calories E66 .01 Active 323696043 Problem Seasonal allergic rhinitis due to pollen J30.1 Active 64249763 ALLERGIES No Information ENCOUNTERS Encounter Location Date Diagnosis [facility] [address] [id number] [place] [address] 07 Aug, 2019 [facility] [address] [facility] [id number] [place] [address] 06 Aug, 2019 Essential hypertension I10 [facility] [address] [facility] [id number] [address] [place] [address] Jul, Parotiditis K11.20 [facility] [address] [id number] [place] [address] Jul, [facility] [address] [id number] [place] [address] Jul, Type II diabetes mellitus E11.9 [facility] [address] [id number] [place] [address] Jul, [facility] [address] [place] [id number] [place] [address] Jul, Pneumonia due to infectious organism, un specified laterality, unspecified part of lung J18.9 ; On home oxygen therapy Z99.81 ; Type II diabetes mellitus E11.9 ; Tobacco use disorder F17.200 and Encounter for tobacco use cessation counseling Z71.6 [facility] [id number] [place] [address] 14 Apr, 2019 [facility] [address] [facility] [id number] [address] [place] [address] 30 Mar, 2019 Acute non-recurrent frontal sinusitis J01.10 [place] [address] [place] [id number] [place] [address] 17 Mar, 2019 Type 2 diabetes mellitus without complic ations E11.9 [facility] [id number] [place] [address] Mar, Type 2 diabetes mellitus without complic ations E11.9 ; Essential hypertension I10 and Chronic bronchitis, unspecified chronic bronchitis type J42 [place] [id number] [place] [address] Feb, [place] [address] [place] [address] Dec, [place] [address] [address] [place] [address] Dec, [place] [address] [address] [place] [address] November, [address] [place] [address] November, [address] [place] [address] November, [address] [place] [address] November, Allergic rhinitis J30.9 [facility] [address] [address] November, [facility] [address] [address] November, [facility] [address] [address] November, [facility] [address] [address] Oct, [facility] [address] [address] Oct, Essential hypertension I10 [facility] [address] [address] Oct, [facility] [address] [address] Oct, [facility] [address] [address] Oct, [facility] [address] [address] Oct, [facility] [address] [address] Oct, [facility] [address] [facility] [id number] [address] [place] [address] Oct, Shortness of breath R06.02 a nd Oxygen decrease R09.02 [facility] [id number] [place] [address] Oct, [facility] [address] [address] Sep, COPD (chronic obstructive pulmonary dise ase) with emphysema J43.9 ; On home oxygen therapy Z99.81 and Hypothyroidism E03.9 [facility] [id number] [place] [address] Sep, [facility] [address] [address] [place] [address] Sep, [facility] [address] [address] Sep, Acute on chronic respiratory failure wit h hypoxia J96.21 ; Hypothyroidism E03.9 ; COPD (chronic obstructive pulmonary disease) with emphysema J43.9 ; Essential hypertension I10 ; Type 2 diabetes mellitus with other specified complication E11.69 ; 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 and Hyperlipidemia LDL goal <70 E78.5 [facility] [address] [address] Sep, Allergic rhinitis J30.9 [place] [address] [address] Aug, Allergic rhinitis J30.9 [place] [address] [address] Aug, [facility] [address] [address] Aug, [facility] [address] [address] Aug, [place] [address] [address] Jul, [place] [address] [address] Jul, Type 2 diabetes mellitus with other spec ified complication E11.69 [place] [address] [address] Jun, [facility] [address] [address] May, Hyperlipidemia LDL goal <70 E78.5 ; COPD (chronic obstructive pulmonary disease) with emphysema J43.9 and Encounter for immunization Z23 [facility] [address] [address] May, [facility] [address] [facility] [id number] [place] [address] May, Acute upper respiratory infe ction J06.9 [place] [address] [address] May, Essential hypertension I10 [place] [address] [address] May, Essential hypertension I10 [place] [address] [address] Apr, Essential hypertension I10 [place] [address] [address] Apr, [place] [address] [address] Apr, COPD (chronic obstructive pulmonary dise ase) with emphysema J43.9 [place] [address] [address] Apr, [place] [address] [address] Mar, [place] [address] [address] Feb, Type 2 diabetes mellitus with other spec ified complication E11.69 ; 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 ; Essential hypertension I10 ; Hyperlipidemia LDL goal <70 E78.5 ; COPD (chronic obstructive pulmonary disease) with emphysema J43.9 ; Microcytic anemia D50.9 ; Morbid (severe) obesity due to excess calories E66.01 ; Body mass index (BMI) of 39.0-39.9 in adult Z68.39 ; Hypothyroidism E03.9 and Seasonal allergic rhinitis due to pollen J30.1 [place] [address] [address] November, Pneumonia of right lower lobe due to inf ectious organism J18.1 ; 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 ; Type [...] without esophagitis K21.9 and Allergic rhinitis J30.9 [place] [address] [address] November, [place] [address] [address] Sep, [place] [address] [address] Sep, [place] [address] [address] Sep, [place] [address] [address] Sep, [facility] [place] [address] [address] Jul, Encounter for immunization Z 23 [facility] [place] [address] [address] Jun, Subacute maxillary sinusitis J01.00 [place] [address] [address] May, [place] [address] [address] May, [place] [address] [address] 07 May, 2017 Type II diabetes mellitus E11.9 ; Hypoth yroidism E03.9 ; COPD (chronic obstructive pulmonary disease) with emphysema J43.9 ; Cough R05 ; COPD with exacerbation J44.1 and Pneumonia of right lower lobe due to infectious organism J18.1 [place] [address] [address] 08 Mar, 2017 Hyperlipidemia, unspecified hyperlipidem ia type E78.5 [place] [address] [address] Mar, Hypothyroidism E03.9 and Hyperlipidemia, unspecified hyperlipidemia type E78.5 [place] [address] [address] Feb, Type II diabetes mellitus E11.9 ; [...] full remission F33.42 and Urinary incontinence R32 [place] [address] [address] Jan, [place] [address] [address] Jan, [place] [address] [address] November, [place] [address] [address] Sep, Type II diabetes mellitus E11.9 ; [...] and Tinea pedis of both feet B35.3 [facility] [id number] [place] [address] Jun, [facility] [address] [facility] [id number] [address] [place] [address] Jun, Acute upper respiratory infe ction, unspecified J06.9 and Other viral agents as the cause of diseases classified elsewhere B97.89 [facility] [address] [address] May, [place] [address] [address] May, Type 2 diabetes mellitus with hyperglyce [...] thrush B37.0 and Encounter for immunization Z23 [place] [address] [address] Apr, [place] [address] [address] Apr, [address] [address] Mar, [address] [address] Dec, [place] [address] [address] Dec, [address] [address] Dec, Encounter for well woman exam with lalito rojas gynecological exam Z01.419 ; Encounter for screening for malignant neoplasm of cervix Z12.4 ; Screening mammogram, encounter for Z12.31 ; Encounter for screening breast examination Z12.39 ; On home oxygen therapy Z99.81 ; COPD (chronic obstructive pulmonary disease) with emphysema J43.9 ; Heat rash L74.0 ; Type II diabetes mellitus E11.9 and Hypothyroidism E03.9 [place] [address] [address] November, [address] [address] November, Type II diabetes mellitus E11.9 ; Allerg ic rhinitis J30.9 ; Hypothyroidism E03.9 ; Obesity due to excess calories E66.09 ; Urinary incontinence R32 ; Gastroesophageal reflux disease without esophagitis K21.9 and Essential hypertension I10 [place] [address] [address] Oct, [place] [address] [address] Sep, [place] [address] [address] Sep, [facility] [address] [facility] [id number] [address] [place] [address] Aug, Acute maxillary sinusitis J0 1.[address] [address] Aug, [place] [address] [address] Aug, [place] [address] [address] 16 Aug, 2015 Type II diabetes mellitus E11.[address] [address] 05 Aug, 2015 Type II diabetes mellitus E11.9 ; Hypoth yroidism E03.9 ; COPD (chronic obstructive pulmonary disease) with emphysema J43.9 ; Obesity due to excess calories E66.09 ; Urinary incontinence R32 ; Anemia D64.9 ; Microcytic anemia D50.9 and Allergic rhinitis J30.9 [place] [address] [address] May, Upper respiratory symptom R09.[address] [address] May, Oral thrush B37.[address] [address] 28 Apr, 2015 Hypothyroidism E03.9 and Microcytic anem ia D50.[address] [address] Apr, Encounter for long-term current use of m edication Z79.899 ; Hypothyroidism E03.9 ; Microcytic anemia D50.9 ; Type 2 diabetes mellitus without complication E11.9 ; Essential hypertension I10 and Mixed incontinence N39.46 [facility] [address] [address] Apr, [facility] [address] [address] Mar, [place] [address] [address] Mar, [place] [address] [address] Mar, [place] [address] [address] Mar, [place] [address] [address] Mar, [place] [address] [address] Mar, [place] [address] [address] Mar, [place] [address] [address] Feb, Cough 786.2 ; Wheezing 786.07 ; Hypothyr oidism 244.9 and Encounter for long-term current use of medication V58.69 [place] [address] [address] Feb, Diabetes type 2, uncontrolled 250.02 ; D epression 311 ; Encounter for long-term current use of medication V58.69 and Hypothyroidism 244.9 [place] [address] [address] Feb, [place] [address] [address] Jan, [place] [address] [place] [address] 28 Oct, 2014 [facility] [address] [id number] [place] [address] 14 Oct, 2014 [facility] [address] [id number] [place] [address] 13 Oct, 2014 [facility] [address] [id number] [place] [address] Sep, [facility] [address] [id number] [place] [address] Sep, [facility] [address] [id number] [place] [address] Sep, [facility] [address] [id number] [place] [address] Aug, [facility] [address] [id number] [place] [address] Aug, [facility] [address] [id number] [place] [address] Jul, [facility] [address] [id number] [place] [address] Jul, [facility] [address] [id number] [place] [address] Jul, [facility] [address] [id number] [place] [address] Jul, [facility] [address] [id number] [place] [address] Jul, [facility] [address] [id number] [place] [address] Jul, [facility] [id number] [place] [address] Jul, [facility] [address] [id number] [place] [address] Jul, [facility] [address] [id number] [place] [address] Jun, [facility] [address] [id number] [place] [address] Jun, [facility] [address] [id number] [place] [address] May, [facility] [address] [id number] [place] [address] May, [facility] [address] [id number] [place] [address] May, [facility] [address] [id number] [place] [address] Apr, [facility] [address] [id number] [place] [address] Apr, [facility] [address] [id number] [place] [address] Apr, [facility] [address] [id number] [place] [address] Apr, [facility] [address] [id number] [place] [address] Apr, [facility] [address] [id number] [place] [address] Apr, [facility] [address] [id number] [place] [address] Mar, [facility] [address] [id number] [place] [address] Mar, [facility] [address] [id number] [place] [address] 19 Mar, 2014 [facility] [address] [id number] [place] [address] 19 Mar, 2014 [facility] [address] [id number] [place] [address] Sep, [facility] [address] [id number] [place] [address] Sep, [facility] [address] [id number] [place] [address] Sep, [facility] [address] [id number] [place] [address] Sep, [facility] [address] [id number] [facility] [place] [address] Aug, [facility] [address] [id number] [facility] [place] [address] Aug, [facility] [address] [id number] [place] [address] Aug, [facility] [address] [id number] [place] [address] Aug, [facility] [address] [id number] [place] [address] Aug, [facility] [address] [id number] [place] [address] Aug, [facility] [address] [id number] [place] [address] Jul, [facility] [address] [id number] [place] [address] Jul, [facility] [address] [id number] [place] [address] Jul, [facility] [address] [id number] [place] [address] Jul, [facility] [address] [id number] [place] [address] Jun, [facility] [address] [id number] [place] [address] Jun, [facility] [address] [id number] [place] [address] May, [facility] [address] [id number] [place] [address] May, [facility] [address] [id number] [place] [address] Apr, [facility] [address] [id number] [facility] [place] [address] Apr, [facility] [address] [id number] [place] [address] Apr, [facility] [address] [facility] [id number] [place] [address] Mar, [facility] [address] [id number] [place] [address] Mar, [facility] [address] [facility] [id number] [place] [address] Mar, [facility] [address] [facility] [id number] [place] [address] Mar, [facility] [address] [id number] [place] [address] Feb, [facility] [address] [id number] [place] [address] Jan, [facility] [address] [id number] [place] [address] Jan, [facility] [address] [id number] [place] [address] Jan, [facility] [address] [id number] [place] [address] Jan, [facility] [address] [id number] [place] [address] Dec, [facility] [address] [id number] [place] [address] Dec, [facility] [address] [facility] [id number] [place] [address] Dec, [facility] [address] [id number] [place] [address] Dec, [facility] [address] [id number] [place] [address] Dec, [facility] [address] [id number] [place] [address] Dec, [facility] [address] [id number] [place] [address] November, [facility] [address] [id number] [place] [address] November, [facility] [address] [id number] [place] [address] November, [facility] [address] [id number] [place] [address] Oct, [facility] [address] [id number] [place] [address] Oct, [facility] [address] [id number] [place] [address] Sep, [facility] [address] [id number] [place] [address] Sep, [facility] [address] [id number] [place] [address] Sep, [facility] [address] [id number] [place] [address] Sep, [facility] [address] [id number] [place] [address] Sep, [facility] [address] [id number] [place] [address] Aug, [facility] [address] [id number] [place] [address] Aug, [facility] [address] [id number] [place] [address] Aug, [facility] [address] [id number] [place] [address] Aug, [facility] [address] [id number] [place] [address] Aug, [facility] [address] [id number] [place] [address] Jul, [facility] [address] [id number] [place] [address] 08 Jul, 2012 [facility] [address] [id number] [place] [address] Jun, [facility] [address] [id number] [place] [address] Jun, [facility] [address] [id number] [place] [address] Jun, [facility] [address] [id number] [place] [address] Jun, [facility] [address] [id number] [place] [address] Jun, [facility] [address] [id number] [place] [address] Jun, [facility] [address] [id number] [place] [address] Jun, [facility] [address] [id number] [place] [address] Jun, [facility] [address] [id number] [place] [address] Jun, [facility] [address] [id number] [place] [address] May, [facility] [address] [id number] [place] [address] May, [facility] [address] [id number] [place] [address] May, [facility] [address] [id number] [place] [address] May, [facility] [address] [id number] [place] [address] May, [facility] [address] [id number] [place] [address] May, [facility] [address] [id number] [place] [address] May, [facility] [address] [id number] [place] [address] Apr, [facility] [address] [id number] [place] [address] Mar, [facility] [address] [id number] [place] [address] Mar, [facility] [address] [id number] [place] [address] Feb, [facility] [address] [id number] [place] [address] Feb, [facility] [address] [id number] [place] [address] Feb, [facility] [address] [id number] [place] [address] Feb, [facility] [address] [id number] [place] [address] Jan, [facility] [address] [id number] [place] [address] Jan, [facility] [address] [id number] [place] [address] Jan, [facility] [address] [id number] [place] [address] Jan, [facility] [address] [id number] [place] [address] Dec, [facility] [address] [id number] [place] [address] Dec, [facility] [address] [id number] [place] [address] 17 Dec, 2011 [facility] [address] [id number] [place] [address] 15 Dec, 2011 [facility] [address] [id number] [place] [address] 13 Dec, 2011 [facility] [address] [id number] [place] [address] Sep, [facility] [address] [id number] [place] [address] Aug, [facility] [address] [id number] [place] [address] Jul, [facility] [address] [id number] [place] [address] Jun, [facility] [id number] [place] [address] Jun, [facility] [id number] [place] [address] Jun, [facility] [id number] [place] [address] Jun, [facility] [id number] [place] [address] May, [facility] [id number] [place] [address] May, [facility] [address] [id number] [place] [address] Apr, [facility] [id number] [place] [address] Jun, [facility] [address] [id number] [place] [address] Apr, IMMUNIZATIONS No Known Immunizations SOCIAL HISTORY [...] 11/2017 Hospitalization History pneumonia 10/07 Hospitalization History [facility] 03/09/19 Hospitalization History via [facility]. 07/17/19
--- OUTSIDE RECORDS SUMMARY | 2019-12-24 00:33 | XMS REPORT ---
Author Author Don Jay Doctor Organization [facility] Address Unknown Phone Unavailable Care Team Providers Care Systems Integration Engineer Name Role Phone Migration, Doctor Unavailable Unavailable PROBLEMS Type Condition ICD9-CM Code AHW80-XC Code Onset Dates Condition S tatus SNOMED Code Problem Allergic rhinitis J30.9 Active 61 039757 Problem Urinary incontinence R32 Active 191596330 Problem Microcytic anemia D50.9 Active 23 1797834 Problem Hypothyroidism E03.9 Active 13790 008 Problem Gastroesophageal reflux disease without esophagitis K21.9 Active 722916976 Problem Essential hypertension I10 Active 27430504 Problem Tobacco abuse Z72.0 Active 512862 000 Problem Chronic bronchitis, unspecified chronic bronchitis type J42 Active 08943702 Problem On home oxygen therapy Z99.81 Active 995926870741 Problem Parotiditis K11.20 Active 08585812 Problem 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 Active 31364876 Problem Type 2 diabetes mellitus with other specified complication E11.69 Active 41041231 Problem Hyperlipidemia LDL goal <70 E78.5 Ac tive 73294842 Problem Morbid (severe) obesity due to excess calories E66 .01 Active 316508305 Problem Seasonal allergic rhinitis due to pollen J30.1 Active 32668640 ALLERGIES No Information ENCOUNTERS Encounter Location Date Diagnosis [facility] [address] [id number] [place] [address] 07 Aug, 2019 [facility] [address] [facility] [id number] [place] [address] 06 Aug, 2019 Essential hypertension I10 [facility] [address] [facility] [id number] [address] [place] [address] Jul, Parotiditis K11.20 [facility] [address] [id number] [place] [address] Jul, [facility] [address] [id number] [place] [address] Jul, Type II diabetes mellitus E11.9 [facility] [id number] [place] [address] Jul, [facility] [id number] [place] [address] Jul, Pneumonia due to infectious organism, un specified laterality, unspecified part of lung J18.9 ; On home oxygen therapy Z99.81 ; Type II diabetes mellitus E11.9 ; Tobacco use disorder F17.200 and Encounter for tobacco use cessation counseling Z71.6 [facility] [id number] [place] [address] 14 Apr, 2019 [facility] [address] [facility] [id number] [address] [place] [address] 30 Mar, 2019 Acute non-recurrent frontal sinusitis J01.10 [place] [id number] [place] [address] 17 Mar, 2019 Type 2 diabetes mellitus without complic ations E11.9 [facility] [id number] [place] [address] Mar, Type 2 diabetes mellitus without complic ations E11.9 ; Essential hypertension I10 and Chronic bronchitis, unspecified chronic bronchitis type J42 [place] [id number] [place] [address] Feb, [place] [id number] [place] [address] Dec, [place] [id number] [place] [address] Dec, [place] [id number] [place] [address] November, [address] [place] [address] November, [address] [place] [address] November, [address] [place] [address] November, Allergic rhinitis J30.9 [facility] [address] [address] November, [facility] [address] [address] November, [facility] [address] [address] November, [facility] [address] [address] Oct, [facility] [address] [address] Oct, Essential hypertension I10 [facility] [address] [address] Oct, [facility] [address] [address] Oct, [facility] [address] [address] Oct, [facility] [address] [address] Oct, [facility] [address] [address] Oct, [facility] [address] [facility] [id number] [address] [place] [address] Oct, Shortness of breath R06.02 a nd Oxygen decrease R09.02 [facility] [id number] [place] [address] Oct, [facility] [address] [address] Sep, COPD (chronic obstructive pulmonary dise ase) with emphysema J43.9 ; On home oxygen therapy Z99.81 and Hypothyroidism E03.9 [facility] [id number] [place] [address] Sep, [facility] [address] [address] [place] [address] Sep, [facility] [address] [address] Sep, Acute on chronic respiratory failure wit h hypoxia J96.21 ; Hypothyroidism E03.9 ; COPD (chronic obstructive pulmonary disease) with emphysema J43.9 ; Essential hypertension I10 ; Type 2 diabetes mellitus with other specified complication E11.69 ; 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 Z79.4 and Hyperlipidemia LDL goal <70 E78.5 [facility] [address] [address] Sep, Allergic rhinitis J30.9 [place] [address] [address] Aug, Allergic rhinitis J30.9 [place] [address] [address] Aug, [facility] [address] [address] Aug, [facility] [address] [address] Aug, [place] [address] [address] Jul, [place] [address] [address] Jul, Type 2 diabetes mellitus with other spec ified complication E11.69 [place] [address] [address] Jun, [facility] [address] [address] May, Hyperlipidemia LDL goal <70 E78.5 ; COPD (chronic obstructive pulmonary disease) with emphysema J43.9 and Encounter for immunization Z23 [facility] [address] [address] May, [facility] [address] [facility] [id number] [place] [address] May, Acute upper respiratory infe ction J06.9 [place] [address] [address] May, Essential hypertension I10 [place] [address] [address] May, Essential hypertension I10 [facility] [address] [address] Apr, Essential hypertension I10 [place] [address] [address] Apr, [place] [address] [address] Apr, COPD (chronic obstructive pulmonary dise ase) with emphysema J43.9 [facility] [address] [address] Apr, [place] [address] [address] Mar, [place] [address] [address] Feb, Type 2 diabetes mellitus with other spec ified complication E11.69 ; 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 Z79.4 ; Essential hypertension I10 ; Hyperlipidemia LDL goal <70 E78.5 ; COPD (chronic obstructive pulmonary disease) with emphysema J43.9 ; Microcytic anemia D50.9 ; Morbid (severe) obesity due to excess calories E66.01 ; Body mass index (BMI) of 39.0-39.9 in adult Z68.39 ; Hypothyroidism E03.9 and Seasonal allergic rhinitis due to pollen J30.1 [place] [address] [address] November, Pneumonia of right lower lobe due to inf ectious organism J18.1 ; 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 Z79.4 ; Type [...] without esophagitis K21.9 and Allergic rhinitis J30.9 [place] [address] [address] November, [place] [address] [address] Sep, [place] [address] [address] Sep, [place] [address] [address] Sep, [place] [address] [address] Sep, [facility] [place] [address] [address] Jul, Encounter for immunization Z 23 [facility] [place] [address] [address] Jun, Subacute maxillary sinusitis J01.00 [place] [address] [address] May, [place] [address] [address] May, [place] [address] [address] 07 May, 2017 Type II diabetes mellitus E11.9 ; Hypoth yroidism E03.9 ; COPD (chronic obstructive pulmonary disease) with emphysema J43.9 ; Cough R05 ; COPD with exacerbation J44.1 and Pneumonia of right lower lobe due to infectious organism J18.1 [place] [address] [address] 08 Mar, 2017 Hyperlipidemia, unspecified hyperlipidem ia type E78.5 [place] [address] [address] Mar, Hypothyroidism E03.9 and Hyperlipidemia, unspecified hyperlipidemia type E78.5 [place] [address] [address] Feb, Type II diabetes mellitus E11.9 ; [...] full remission F33.42 and Urinary incontinence R32 [place] [address] [address] Jan, [place] [address] [address] Jan, [place] [address] [address] November, [place] [address] [address] Sep, Type II diabetes mellitus E11.9 ; [...] and Tinea pedis of both feet B35.3 [facility] [id number] [place] [address] Jun, [facility] [address] [facility] [id number] [address] [place] [address] Jun, Acute upper respiratory infe ction, unspecified J06.9 and Other viral agents as the cause of diseases classified elsewhere B97.89 [facility] [address] [address] May, [place] [address] [address] May, Type 2 diabetes mellitus with hyperglyce [...] thrush B37.0 and Encounter for immunization Z23 [place] [address] [address] Apr, [place] [address] [address] Apr, [address] [address] Mar, [address] [address] Dec, [place] [address] [address] Dec, [address] [address] Dec, Encounter for well woman exam with lalito rojas gynecological exam Z01.419 ; Encounter for screening for malignant neoplasm of cervix Z12.4 ; Screening mammogram, encounter for Z12.31 ; Encounter for screening breast examination Z12.39 ; On home oxygen therapy Z99.81 ; COPD (chronic obstructive pulmonary disease) with emphysema J43.9 ; Heat rash L74.0 ; Type II diabetes mellitus E11.9 and Hypothyroidism E03.9 [place] [address] [address] November, [address] [address] November, Type II diabetes mellitus E11.9 ; Allerg ic rhinitis J30.9 ; Hypothyroidism E03.9 ; Obesity due to excess calories E66.09 ; Urinary incontinence R32 ; Gastroesophageal reflux disease without esophagitis K21.9 and Essential hypertension I10 [place] [address] [address] Oct, [place] [address] [address] Sep, [place] [address] [address] Sep, [facility] [address] [facility] [id number] [address] [place] [address] Aug, Acute maxillary sinusitis J0 1.[address] [address] Aug, [place] [address] [address] Aug, [place] [address] [address] 16 Aug, 2015 Type II diabetes mellitus E11.[address] [address] 05 Aug, 2015 Type II diabetes mellitus E11.9 ; Hypoth yroidism E03.9 ; COPD (chronic obstructive pulmonary disease) with emphysema J43.9 ; Obesity due to excess calories E66.09 ; Urinary incontinence R32 ; Anemia D64.9 ; Microcytic anemia D50.9 and Allergic rhinitis J30.9 [place] [address] [address] May, Upper respiratory symptom R09.[address] [address] May, Oral thrush B37.[address] [address] 28 Apr, 2015 Hypothyroidism E03.9 and Microcytic anem ia D50.[address] [address] Apr, Encounter for long-term current use of m edication Z79.899 ; Hypothyroidism E03.9 ; Microcytic anemia D50.9 ; Type 2 diabetes mellitus without complication E11.9 ; Essential hypertension I10 and Mixed incontinence N39.46 [facility] [address] [address] Apr, [facility] [address] [address] Mar, [place] [address] [address] Mar, [place] [address] [address] Mar, [place] [address] [address] Mar, [place] [address] [address] Mar, [place] [address] [address] Mar, [place] [address] [address] Mar, [place] [address] [address] Feb, Cough 786.2 ; Wheezing 786.07 ; Hypothyr oidism 244.9 and Encounter for long-term current use of medication V58.69 [place] [address] [address] Feb, Diabetes type 2, uncontrolled 250.02 ; D epression 311 ; Encounter for long-term current use of medication V58.69 and Hypothyroidism 244.9 [place] [address] [address] Feb, [place] [address] [address] Jan, [place] [address] [place] [address] 28 Oct, 2014 [facility] [place] [facility] [address] [id number] [place] [address] 14 Oct, 2014 [facility] [place] [facility] [address] [id number] [place] [address] 13 Oct, 2014 [facility] [place] [facility] [id number] [place] [address] Sep, [facility] [place] [facility] [address] [id number] [place] [address] Sep, [facility] [place] [facility] [address] [id number] [place] [address] Sep, [facility] [place] [facility] [address] [id number] [place] [address] Aug, [facility] [place] [facility] [address] [id number] [place] [address] Aug, [facility] [place] [facility] [address] [id number] [place] [address] Jul, [facility] [place] [facility] [address] [id number] [place] [address] Jul, [facility] [place] [facility] [address] [id number] [place] [address] Jul, [facility] [place] [facility] [address] [id number] [place] [address] Jul, [facility] [place] [facility] [address] [id number] [place] [address] Jul, [facility] [place] [facility] [address] [id number] [place] [address] Jul, [facility] [place] [facility] [id number] [place] [address] Jul, [facility] [place] [facility] [address] [id number] [place] [address] Jul, [facility] [place] [facility] [address] [id number] [place] [address] Jun, [facility] [place] [facility] [address] [id number] [place] [address] Jun, [facility] [place] [facility] [address] [id number] [place] [address] May, [facility] [place] [facility] [address] [id number] [place] [address] May, [facility] [place] [facility] [address] [id number] [place] [address] May, [facility] [place] [facility] [id number] [place] [address] Apr, [facility] [place] [facility] [address] [id number] [place] [address] Apr, [facility] [place] [facility] [address] [id number] [place] [address] Apr, [facility] [place] [facility] [address] [id number] [place] [address] Apr, [facility] [place] [id number] [place] [address] Apr, [facility] [place] [facility] [address] [id number] [place] [address] Apr, [facility] [id number] [place] [address] Mar, [facility] [address] [id number] [place] [address] Mar, [facility] [address] [id number] [place] [address] 19 Mar, 2014 [facility] [id number] [place] [address] 19 Mar, 2014 [facility] [address] [id number] [place] [address] Sep, [facility] [address] [id number] [place] [address] Sep, [facility] [address] [id number] [place] [address] Sep, [facility] [address] [id number] [place] [address] Sep, [facility] [address] [id number] [place] [address] Aug, [facility] [place] [address] [id number] [place] [address] Aug, [facility] [place] [address] [id number] [place] [address] Aug, [facility] [place] [facility] [address] [id number] [place] [address] Aug, [facility] [place] [address] [id number] [place] [address] Aug, [facility] [address] [id number] [place] [address] Aug, [facility] [address] [id number] [place] [address] Jul, [facility] [place] [address] [id number] [place] [address] Jul, [facility] [place] [address] [id number] [place] [address] Jul, [facility] [place] [facility] [address] [id number] [place] [address] Jul, [facility] [address] [id number] [place] [address] Jun, [facility] [place] [facility] [address] [id number] [place] [address] Jun, [facility] [place] [facility] [address] [id number] [place] [address] May, [facility] [place] [facility] [address] [id number] [place] [address] May, [facility] [address] [id number] [place] [address] Apr, [facility] [place] [facility] [address] [id number] [place] [address] Apr, [facility] [place] [facility] [address] [id number] [place] [address] Apr, [facility] [facility] [address] [facility] [id number] [place] [address] Mar, [facility] [place] [address] [id number] [place] [address] Mar, [facility] [address] [facility] [id number] [place] [address] Mar, [facility] [facility] [address] [facility] [id number] [place] [address] Mar, [facility] [place] [facility] [address] [id number] [place] [address] Feb, [facility] [place] [facility] [address] [id number] [place] [address] Jan, [facility] [place] [address] [id number] [place] [address] Jan, [facility] [place] [facility] [address] [id number] [place] [address] Jan, [facility] [place] [address] [id number] [place] [address] Jan, [facility] [place] [address] [id number] [place] [address] Dec, [facility] [address] [id number] [place] [address] Dec, [facility] [place] [facility] [address] [facility] [id number] [place] [address] Dec, [facility] [place] [facility] [address] [id number] [place] [address] Dec, [facility] [place] [facility] [address] [id number] [place] [address] Dec, [facility] [place] [facility] [address] [id number] [place] [address] Dec, [facility] [address] [id number] [place] [address] November, [facility] [address] [id number] [place] [address] November, [facility] [place] [facility] [address] [id number] [place] [address] November, [facility] [address] [id number] [place] [address] Oct, [facility] [place] [facility] [address] [id number] [place] [address] Oct, [facility] [address] [id number] [place] [address] Sep, [facility] [place] [facility] [address] [id number] [place] [address] Sep, [facility] [address] [id number] [place] [address] Sep, [facility] [place] [facility] [address] [id number] [place] [address] Sep, [facility] [address] [id number] [place] [address] Sep, [facility] [place] [facility] [address] [id number] [place] [address] Aug, [facility] [place] [facility] [address] [id number] [place] [address] Aug, [facility] [place] [facility] [address] [id number] [place] [address] Aug, [facility] [place] [facility] [address] [id number] [place] [address] Aug, [facility] [place] [facility] [address] [id number] [place] [address] Aug, [facility] [place] [facility] [address] [id number] [place] [address] Jul, [facility] [address] [facility] [id number] [place] [address] 08 Jul, 2012 [facility] [address] [facility] [id number] [place] [address] Jun, [facility] [address] [facility] [id number] [place] [address] Jun, [facility] [address] [facility] [id number] [place] [address] Jun, [facility] [address] [facility] [id number] [place] [address] Jun, [facility] [address] [facility] [id number] [place] [address] Jun, [facility] [address] [facility] [id number] [place] [address] Jun, [facility] [address] [facility] [id number] [place] [address] Jun, [facility] [address] [facility] [id number] [place] [address] Jun, [facility] [address] [facility] [id number] [place] [address] Jun, [facility] [address] [facility] [id number] [place] [address] May, [facility] [address] [facility] [id number] [place] [address] May, [facility] [address] [facility] [id number] [place] [address] May, [facility] [address] [facility] [id number] [place] [address] May, [facility] [address] [facility] [id number] [place] [address] May, [facility] [address] [facility] [id number] [place] [address] May, [facility] [address] [id number] [place] [address] May, [facility] [address] [facility] [id number] [place] [address] Apr, [facility] [address] [facility] [id number] [place] [address] Mar, [facility] [address] [facility] [id number] [place] [address] Mar, [facility] [address] [facility] [id number] [place] [address] Feb, [facility] [address] [facility] [id number] [place] [address] Feb, [facility] [address] [facility] [id number] [place] [address] Feb, [facility] [address] [id number] [place] [address] Feb, [facility] [address] [id number] [place] [address] Jan, [facility] [address] [facility] [id number] [place] [address] Jan, [facility] [address] [id number] [place] [address] Jan, [facility] [address] [id number] [place] [address] Jan, [facility] [address] [id number] [place] [address] Dec, [facility] [address] [id number] [place] [address] Dec, [facility] [address] [id number] [place] [address] 17 Dec, 2011 [facility] [address] [id number] [place] [address] 15 Dec, 2011 [facility] [address] [id number] [place] [address] 13 Dec, 2011 [facility] [address] [id number] [place] [address] Sep, [facility] [address] [id number] [place] [address] Aug, [facility] [address] [id number] [place] [address] Jul, [facility] [address] [id number] [place] [address] Jun, [facility] [id number] [place] [address] Jun, [facility] [id number] [place] [address] Jun, [facility] [id number] [place] [address] Jun, [facility] [id number] [place] [address] May, [facility] [id number] [place] [address] May, [facility] [address] [id number] [place] [address] Apr, [facility] [id number] [place] [address] Jun, [facility] [address] [id number] [place] [address] Apr, IMMUNIZATIONS No Known Immunizations SOCIAL HISTORY [...] 11/2017 Hospitalization History pneumonia 10/07 Hospitalization History [facility] 03/09/19 Hospitalization History [facility]. 07/17/19
--- OUTSIDE RECORDS SUMMARY | 2019-12-24 00:42 | XMS REPORT | Continuity of Care Document ---
Demographics Preferred Language Unknown Marital Status Unknown Sikh Affiliation Unknown Race Unknown Ethnic Group Unknown Author Organization Unknown Address Unknown Phone Unavailable Allergies Active Description [...] R 599.0 Urinary Tract Infection 08/26/2008 401.1 ESSE NTIAL HYPERTENSION BENIGN 08/26/2008 599.0 Urin mohan Tract Infection 08/26/2008 401.1 ESSE NTIAL HYPERTENSION BENIGN 08/26/2008 599.0 Urin mohan Tract Infection 08/26/2008 401.1 ESSE NTIAL HYPERTENSION BENIGN 08/26/2008 599.0 Urin mohan Tract Infection 08/26/2008 BLAIR DO, VÍCTOR K [...] FALCON APRNIA R 296.90 MOOD DISORDER 04/18/2010 BEVERLY FALCON APRNRICIA R 465.9 Upper Respiratory Infection 04/18/2010 JOEL FALCON APRN 786.2 Cough 04/18/2010 244.9 HYPO THYROIDISM 04/18/2010 296.90 MOO D DISORDER 04/18/2010 465.9 Uppe r Respiratory Infection 04/18/2010 786.2 Cough 04/18/2010 244.9 HYPO THYROIDISM 04/18/2010 296.90 MOO D DISORDER 04/18/2010 465.9 Uppe r Respiratory Infection 04/18/2010 786.2 Cough 04/18/2010 244.9 HYPO THYROIDISM 04/18/2010 296.90 MOO D DISORDER 04/18/2010 465.9 Uppe r Respiratory Infection 04/18/2010 786.2 Cough 04/18/2010 BLAIR [...] BLAIR DO, VÍCTOR K 786.2 Cough 04/18/2010 TERRIE STAFF FIELD ENGINEER JOEL R 244.9 HYPOTHYROIDISM 04/18/2010 FALCON STAFF FIELD ENGINEER, JOEL R 296.90 MOOD DISORDER 04/18/2010 TERRIE STAFF FIELD ENGINEER, JOEL R 465.9 Upper Respiratory Infection 04/18/2010 TERRIE MARMOLEJO JOEL R 786.2 Cough 04/18/2010 BLAIR DO, [...] DO VÍCTOR K 496 COPD 07/26/2010 ROSSY NAIR, VÍCTOR K 585.9 CHRONIC KIDNEY DISEASE, UNSPECIFIED 07/26/2010 ROSSY NAIR VÍCTOR K 790.4 Abnormal Liver Function Test 07/26/2010 ROSSY NAIR VÍCTOR K 276.8 Hypopotassemia 07/26/2010 BLAIR DO VÍCTOR K 496 COPD 07/26/2010 BLAIR DO, VÍCTOR K 585.9 CHRONIC KIDNEY DISEASE, UNSPECIFIED 07/26/2010 ROSSY NAIR, VÍCTOR K 790.4 Abnormal Liver Function Test 07/26/2010 GARRETT FALCON APRNIA R 276.8 Hypopotassemia 07/26/2010 GARRETT FALCON APRNIA R 496 COPD 07/26/2010 GARRETT FALCON APRNIA R 585.9 CHRONIC KIDNEY DISEASE, UNSPECIFIED 07/26/2010 JOEL FALCON APRN R 790.4 Abnormal Liver Function Test 07/26/2010 276.8 Hypo potassemia 07/26/2010 496 COPD 07/26/2010 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 07/26/2010 790.4 Abno rmal Liver Function Test 07/26/2010 276.8 Hypo potassemia 07/26/2010 496 COPD 07/26/2010 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 07/26/2010 790.4 Abno rmal Liver Function Test 07/26/2010 276.8 Hypo potassemia 07/26/2010 496 COPD 07/26/2010 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 07/26/2010 790.4 Abno rmal Liver Function Test 07/26/2010 BLAIR DO, VÍCTOR [...] 790.4 Abnormal Liver Function Test 07/26/2010 FALCON STAFF FIELD ENGINEER, JOEL R 276.8 Hypopotassemia 07/26/2010 FALCON STAFF FIELD ENGINEER, JOEL R 496 COPD 07/26/2010 FALCON STAFF FIELD ENGINEER, JOEL R 585.9 CHRONIC RENAL FAILURE 07/26/2010 FALCON STAFF FIELD ENGINEER, JOEL R 790.4 Abnormal Liver Function Test [...] K 477.9 Allergic Rhinitis Cause Unspecified 03/13/2011 JOEL FALCON APRN R 278.00 OBESITY UNSPECIFIED 03/13/2011 JOEL FALCON APRN R 477.9 Allergic Rhinitis Cause Unspecified 03/13/2011 278.00 OBE SITY UNSPECIFIED 03/13/2011 477.9 Regis rgic Rhinitis Cause Unspecified 03/13/2011 278.00 OBE SITY UNSPECIFIED 03/13/2011 477.9 Regis rgic Rhinitis Cause Unspecified 03/13/2011 278.00 OBE SITY UNSPECIFIED 03/13/2011 477.9 Regis rgic Rhinitis Cause Unspecified 03/13/2011 BLAIR DO, VÍCTOR [...] FALCON APRNIA R 278.00 OBESITY UNSPECIFIED 03/13/2011 JOEL FALCON APRN R 477.9 Allergic Rhinitis Cause Unspecified 03/13/2011 [...] V65.42 COUNSELING - SMOKING CESSATION 06/25/2011 461.9 Sinu sitis Acute 06/25/2011 V65.42 COU NSELING - SMOKING CESSATION 06/25/2011 461.9 Sinu sitis Acute 06/25/2011 V65.42 COU NSELING - SMOKING CESSATION 06/25/2011 461.9 Sinu sitis Acute 06/25/2011 V65.42 COU NSELING - SMOKING CESSATION 06/25/2011 BLAIR DO, VCÍTOR K 461.9 Sinusitis Acute 06/25/2011 BLAIR DO, [...] K 461.9 Sinusitis Acute 06/25/2011 BLAIR DO, VCÍTOR K V65.42 COUNSELING - SMOKING CESSATION 06/25/2011 [...] FALCON APRNIA R 461.9 Sinusitis Acute 06/25/2011 JOEL FALCON [...] 305.1 NONDEPENDENT TOBACCO USE DISORDER 07/03/2011 305.1 NOND EPENDENT TOBACCO USE DISORDER 07/03/2011 305.1 NOND EPENDENT TOBACCO USE DISORDER 07/03/2011 305.1 NOND EPENDENT TOBACCO USE DISORDER 07/03/2011 BLAIR DO, VÍCTOR [...] FALCON APRN R 272.4 HYPERLIPIDEMIA 07/06/2011 250.02 OSMANI BETES MELLITUS TYPE 2 - UNCOMPLICATED, UNCONTROLLED 07/06/2011 272.4 HYPE RLIPIDEMIA 07/06/2011 250.02 OSMANI BETES MELLITUS TYPE 2 - UNCOMPLICATED, UNCONTROLLED 07/06/2011 272.4 HYPE RLIPIDEMIA 07/06/2011 250.02 OSMANI BETES MELLITUS TYPE 2 - UNCOMPLICATED, UNCONTROLLED 07/06/2011 272.4 HYPE RLIPIDEMIA 07/06/2011 BLAIR DO, VÍCTOR K 250.02 DIABETES [...] BLAIR DO, VÍCTOR K 272.4 HYPERLIPIDEMIA 07/06/2011 BEVERLY FALCON APRNRICIA R 250.02 DIABETES MELLITUS TYPE 2 - UNCOMPLICATED, UNCONTROLLED 07/06/2011 TERRIE MARMOLEJO JOEL R 272.4 HYPERLIPIDEMIA 07/06/2011 BLAIR DO, [...] BLAIR DO, VÍCTOR K 272.4 HYPERLIPIDEMIA 2012 JOEL FALCON APRN R 465.9 UPPER RESPIRATORY INFECTION 2012 465.9 UPPE R RESPIRATORY INFECTION 2012 465.9 UPPE R RESPIRATORY INFECTION 2012 465.9 UPPE R RESPIRATORY INFECTION 2012 BLAIR DO, VÍCTOR K [...] K 465.9 UPPER RESPIRATORY INFECTION 10/06/2012 780.52 ins omnia 10/06/2012 780.52 ins omnia 10/06/2012 780.52 ins omnia 10/06/2012 BLAIR DO, VÍCTOR K 780.52 insomnia 10/06/2012 BLAIR DO, VÍCTOR K 780.52 insomnia 10/06/2012 BLAIR DO, ÍVCTOR K 780.52 insomnia 10/06/2012 BLAIR DO, VÍCTOR [...] BLAIR DO, VÍCTOR K 780.52 insomnia 01/07/2013 DEWAYNE PETER DO Ot 682.3 CELLULITIS OF ARM 01/07/2013 DEWAYNE PETER DO Ot 709.9 SKIN DISORDER NOS 01/07/2013 DEWAYNE PETER DO Ot V03.7 TETANUS TOXOID INOCULAT 01/08/[address] BITE 01/08/2013 BLAIR DO, VÍCTOR K 914.4 [...] 914.4 INSECT BITE 01/08/2013 JOEL FALCON APRN R 914.4 INSECT BITE 01/08/2013 BLAIR DO, VÍCTOR [...] MEDICAL TREATMENT PRESENTING HAZARDS TO HEALTH 04/01/2013 VÍCTOR BLAIR DO K V15.09 PERSONAL HISTORY OF OTHER ALLERGY OTHER THAN TO MEDICINAL AGENTS 04/01/2013 BLAIR DO, VÍCTOR K V15.81 PERSONAL HISTORY OF NONCOMPLIANCE WITH MEDICAL TREATMENT PRESENTING HAZARDS TO HEALTH 04/01/2013 ROSSY NAIR VÍCOTR K V15.09 PERSONAL HISTORY OF OTHER ALLERGY [...] HISTORY OF OTHER ALLERGY OTHER THAN TO MEDICI NAL AGENTS 04/01/2013 JOEL FALCON APRN R V15.81 PERSONAL HISTORY OF NONCOMPLIANCE WITH M EDICAL TREATMENT PRESENTING HAZARDS TO HEALTH 04/01/2013 JUANA BLAIR DOA K V15.09 PERSONAL HISTORY OF OTHER ALLERGY OTHER THAN TO MEDICINAL AGENTS 04/01/2013 ÍVCTOR BLAIR DO K V15.81 PERSONAL HISTORY OF [...] VÍCTOR K 780.57 UNSPECIFIED SLEEP APNEA 08/30/2014 VÍCTOR BLAIR DO V04.81 FLU SHOT 08/30/2014 VÍCTOR BLAIR DO V04.81 FLU SHOT 08/30/2014 Ot 786.05 09/13/2014 Ot 786.05 09/13/2014 Ot 786.05 10/18/2014 Ot 278.00 10/18/2014 Ot 296.90 10/18/2014 Ot 305.1 10/18/2014 Ot 496 10/18/2014 Ot 780.54 10/18/2014 Ot 786.09 11/05/2014 VÍCTOR BLAIR DO 788.30 URINARY INCONTINENCE UNSPECIFIED 11/25/2017 Ot 278.00 OBE SITY, NOS 11/25/2017 Ot 296.90 UNS PECIFIED EPISODIC MOOD DISORDER 11/25/2017 Ot 305.1 TOBA GEARCASE ASSEMBLER USE DISORDER 11/25/2017 Ot 496 CHR AI RWAY OBSTRUCT NEC 11/25/2017 Ot 780.54 HYP ERSOMNIA, UNSPECIFIED 11/25/2017 Ot 786.09 RES PIRATORY ABNORM NEC 11/26/2017 NORMAN ALY MD Ot E03.9 HYPOTHYROIDISM, UNSPECIFIED 11/26/2017 NORMAN ALY MD Ot E11.9 TYPE 2 DIABETES MELLITUS WITHOUT COMPLIC 11/26/2017 NORMAN ALY MD Ot F32.9 MAJOR DEPRESSIVE DISORDER, SINGLE EPISOD 11/26/2017 NORMAN ALY MD Ot F41.9 ANXIETY DISORDER, UNSPECIFIED 11/26/2017 NORMAN ALY MD Ot J44.1 CHRONIC OBSTRUCTIVE PULMONARY DISEASE W 11/26/2017 NORMAN ALY MD Ot R06.0 3 ACUTE RESPIRATORY DISTRESS 11/26/2017 NORMAN ALY MD Ot Z99.8 1 DEPENDENCE ON SUPPLEMENTAL OXYGEN 11/27/2017 NORMAN ALY MD Ot E03.9 HYPOTHYROIDISM, UNSPECIFIED 11/27/2017 NORMAN ALY MD Ot E11.9 TYPE 2 DIABETES MELLITUS WITHOUT COMPLIC 11/27/2017 NORMAN ALY MD Ot F32.9 MAJOR DEPRESSIVE DISORDER, SINGLE EPISOD 11/27/2017 NORMAN ALY MD Ot F41.9 ANXIETY DISORDER, UNSPECIFIED 11/27/2017 NORMAN ALY MD Ot J44.1 CHRONIC OBSTRUCTIVE PULMONARY DISEASE W 11/27/2017 NORMAN ALY MD Ot R06.0 3 ACUTE RESPIRATORY DISTRESS 11/27/2017 NORMAN ALY MD Ot Z99.8 1 DEPENDENCE ON SUPPLEMENTAL OXYGEN 11/27/2017 NORMAN ALY MD Ot E03.9 HYPOTHYROIDISM, UNSPECIFIED 11/27/2017 NORMAN ALY MD Ot E11.9 TYPE 2 DIABETES MELLITUS WITHOUT COMPLIC 11/27/2017 NORMAN ALY MD Ot F17.2 10 NICOTINE DEPENDENCE, CIGARETTES, UNCOMPL 11/27/2017 NORMAN ALY MD Ot F32.9 MAJOR DEPRESSIVE DISORDER, SINGLE EPISOD 11/27/2017 NORMAN ALY MD Ot F41.9 ANXIETY DISORDER, UNSPECIFIED 11/27/2017 NORMAN ALY MD Ot G47.3 3 OBSTRUCTIVE SLEEP APNEA (ADULT) (PEDIATR 11/27/2017 NORMAN ALY MD Ot I10 ESSENTIAL (PRIMARY) HYPERTENSION 11/27/2017 NORMAN ALY MD Ot J44.1 CHRONIC OBSTRUCTIVE PULMONARY DISEASE W 11/27/2017 NORMAN ALY MD Ot J96.2 1 ACUTE AND CHRONIC RESPIRATORY FAILURE [place] 11/27/2017 NORMAN ALY MD Ot R06.0 3 ACUTE RESPIRATORY DISTRESS 11/27/2017 NORMAN ALY MD Ot Z99.8 1 DEPENDENCE ON SUPPLEMENTAL OXYGEN 09/22/2018 Ot 278.00 OBE SITY, NOS 09/22/2018 Ot 296.90 UNS PECIFIED EPISODIC MOOD DISORDER 09/22/2018 Ot 305.1 TOBA GEARCASE ASSEMBLER USE DISORDER 09/22/2018 Ot 496 CHR AI RWAY OBSTRUCT NEC 09/22/2018 Ot 780.54 HYP ERSOMNIA, UNSPECIFIED 09/22/2018 Ot 786.09 RES PIRATORY ABNORM NEC 09/22/2018 DAMARI LOONEY, AJ Guadarrama Ot E03. 9 HYPOTHYROIDISM, UNSPECIFIED 09/22/2018 DAMARI LOONEY, AJ Guadarrama Ot E11. 9 TYPE 2 DIABETES MELLITUS WITHOUT COMPLIC 09/22/2018 DAMARI LOONEY, AJ Guadarrama Ot F17.210 NICOTINE DEPENDENCE, CIGARETTES, UNCOMPL 09/22/2018 AJ WETZEL MD Ot F32. 9 MAJOR DEPRESSIVE DISORDER, SINGLE EPISOD 09/22/2018 AJ WETZEL MD Ot F41. 9 ANXIETY DISORDER, UNSPECIFIED 09/22/2018 AJ WETZEL MD Ot J18. 1 LOBAR PNEUMONIA, UNSPECIFIED ORGANISM 09/22/2018 AJ WETZEL MD Ot J44. 1 CHRONIC OBSTRUCTIVE PULMONARY DISEASE W 09/22/2018 AJ WETZEL MD Ot J96. 21 ACUTE AND CHRONIC RESPIRATORY FAILURE [place] 09/22/2018 AJ WETZEL MD Ot R06. 02 SHORTNESS OF BREATH 09/22/2018 AJ WETZEL MD Ot Z79. 51 LONGTERM (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 OF INHALED STERO 09/22/2018 AJ WETZEL MD Ot Z79. 52 MERCHANDISE ADJUSTMENT CLERK (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 OF SYSTEMIC STER 09/22/2018 AJ WETZEL MD Ot Z79. 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 09/24/2018 AJ WETZEL MD Ot E03. 9 HYPOTHYROIDISM, UNSPECIFIED 09/24/2018 AJ WETZEL MD Ot E11. 9 TYPE 2 DIABETES MELLITUS WITHOUT COMPLIC 09/24/2018 AJ WETZEL MD Ot F17.210 NICOTINE DEPENDENCE, CIGARETTES, UNCOMPL 09/24/2018 AJ WETZEL MD Ot F32. 9 MAJOR DEPRESSIVE DISORDER, SINGLE EPISOD 09/24/2018 AJ WETZEL MD Ot F41. 9 ANXIETY DISORDER, UNSPECIFIED 09/24/2018 AJ WETZEL MD Ot J18. 1 LOBAR PNEUMONIA, UNSPECIFIED ORGANISM 09/24/2018 AJ WETZEL MD Ot J44. 1 CHRONIC OBSTRUCTIVE PULMONARY DISEASE W 09/24/2018 AJ WETZEL MD Ot J96. 21 ACUTE AND CHRONIC RESPIRATORY FAILURE WI 09/24/2018 AJ WETZEL MD Ot R06. 02 SHORTNESS OF BREATH 09/24/2018 AJ WETZEL MD Ot Z79. 51 MERCHANDISE ADJUSTMENT CLERK (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 OF INHALED STERO 09/24/2018 AJ WETZEL MD Ot Z79. 52 MERCHANDISE ADJUSTMENT CLERK (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 OF SYSTEMIC STER 09/24/2018 AJ WETZEL MD Ot Z79. 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 10/31/2018 BLAIR DO VÍCTOR K Ot E03.9 HYPOTHYROIDISM, UNSPECIFIED 10/31/2018 BLAIR DO VÍCTOR K Ot E11.9 TYPE 2 DIABETES MELLITUS WITHOUT COMPLIC 10/31/2018 BLAIR DO, VÍCTOR K Ot E66.9 OBESITY, UNSPECIFIED 10/31/2018 BLAIR DO, VÍCTOR K Ot E78.00 PURE HYPERCHOLESTEROLEMIA, UNSPECIFIED 10/31/2018 BLAIR DO, VÍCTOR K Ot E78.5 HYPERLIPIDEMIA, UNSPECIFIED 10/31/2018 BLAIR DO, VÍCTOR K Ot F17.21 0 NICOTINE DEPENDENCE, CIGARETTES, UNCOMPL 10/31/2018 BLAIR DO, VÍCTOR K Ot F32.9 MAJOR DEPRESSIVE DISORDER, SINGLE EPISOD 10/31/2018 BLAIR DO, VÍCTOR K Ot F41.9 ANXIETY DISORDER, UNSPECIFIED 10/31/2018 BLAIR DO, VÍCTOR K Ot G47.33 OBSTRUCTIVE SLEEP APNEA (ADULT) (PEDIATR 10/31/2018 BLAIR DO, VÍCTOR K Ot I10 ESSENTIAL (PRIMARY) HYPERTENSION 10/31/2018 BLAIR DO VÍCTOR K Ot J30.2 OTHER SEASONAL ALLERGIC RHINITIS 10/31/2018 BLAIR DO VÍCTOR K Ot J43.9 EMPHYSEMA, UNSPECIFIED 10/31/2018 BLAIR DO, VÍCTOR K Ot J96.21 ACUTE AND CHRONIC RESPIRATORY FAILURE WI 10/31/2018 BLAIR DO VÍCTOR K Ot J96.22 ACUTE AND CHRONIC RESPIRATORY FAILURE WI 10/31/2018 BLAIR DO, VÍCTOR K Ot Z68.33 BODY MASS INDEX (BMI) 33.0-33.9, ADULT 10/31/2018 BLAIR DO, VÍCTOR K Ot Z79.84 LONGTERM (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 OF ORAL HYPOGLYC 10/31/2018 BLAIR DO VÍCTOR K Ot Z99.81 DEPENDENCE ON SUPPLEMENTAL OXYGEN 10/31/2018 BLAIR DO VÍCTOR K Ot E03.9 HYPOTHYROIDISM, UNSPECIFIED 10/31/2018 BLAIR DO VÍCTOR K Ot E11.9 TYPE 2 DIABETES MELLITUS WITHOUT COMPLIC 10/31/2018 BLAIR DO, VÍCTOR K Ot E66.9 OBESITY, UNSPECIFIED 10/31/2018 BLAIR DO, VÍCTOR K Ot E78.5 HYPERLIPIDEMIA, UNSPECIFIED 10/31/2018 BLAIR DO, VÍCTOR K Ot E87.2 ACIDOSIS 10/31/2018 BLAIR DO, VÍCTOR K Ot F17.21 0 NICOTINE DEPENDENCE, CIGARETTES, UNCOMPL 10/31/2018 BLAIR DO, VÍCTOR K Ot F32.9 MAJOR DEPRESSIVE DISORDER, SINGLE EPISOD 10/31/2018 BLAIR DO, VÍCTOR K Ot F41.9 ANXIETY DISORDER, UNSPECIFIED 10/31/2018 BLAIR DO, VÍCTOR K Ot G47.33 OBSTRUCTIVE SLEEP APNEA (ADULT) (PEDIATR 10/31/2018 BLAIR DO, VÍCTOR K Ot G93.40 ENCEPHALOPATHY, UNSPECIFIED 10/31/2018 BLAIR DO, VÍCTOR K Ot I10 ESSENTIAL (PRIMARY) HYPERTENSION 10/31/2018 BLAIR DO, VÍCTOR K Ot J20.8 ACUTE BRONCHITIS DUE TO OTHER SPECIFIED 10/31/2018 BLAIR DO VÍCTOR K Ot J30.2 OTHER SEASONAL ALLERGIC RHINITIS 10/31/2018 ROSSY DO VÍCTOR K Ot J43.9 EMPHYSEMA, UNSPECIFIED 10/31/2018 BLAIR DO, VÍCTOR K Ot J96.21 ACUTE AND CHRONIC RESPIRATORY FAILURE WI 10/31/2018 BLAIR DO VÍCTOR K Ot J96.22 ACUTE AND CHRONIC RESPIRATORY FAILURE WI 10/31/2018 BLAIR DO VÍCTOR K Ot Z68.33 BODY MASS INDEX (BMI) 33.0-33.9, ADULT 10/31/2018 BLAIR DO VÍCTOR K Ot 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 10/31/2018 ROSSY NAIR VÍCTOR K Ot Z99.81 DEPENDENCE ON SUPPLEMENTAL OXYGEN 10/31/2018 ROSSY NAIR VÍCTOR K Ot E03.9 HYPOTHYROIDISM, UNSPECIFIED 10/31/2018 BLAIR DO VÍCTOR K Ot E11.9 TYPE 2 DIABETES MELLITUS WITHOUT COMPLIC 10/31/2018 ROSSY NAIR VÍCTOR K Ot E66.9 OBESITY, UNSPECIFIED 10/31/2018 BLAIR DO VÍCTOR K Ot E78.00 PURE HYPERCHOLESTEROLEMIA, UNSPECIFIED 10/31/2018 BLAIR DO VÍCTOR K Ot E78.5 HYPERLIPIDEMIA, UNSPECIFIED 10/31/2018 BLAIR DO VÍCTOR K Ot E87.2 ACIDOSIS 10/31/2018 BLAIR DO VÍCTOR K Ot F17.21 0 NICOTINE DEPENDENCE, CIGARETTES, UNCOMPL 10/31/2018 BLAIR DO VÍCTOR K Ot F32.9 MAJOR DEPRESSIVE DISORDER, SINGLE EPISOD 10/31/2018 BLAIR DO VÍCTOR K Ot F41.9 ANXIETY DISORDER, UNSPECIFIED 10/31/2018 BLAIR DO VÍCTOR K Ot G47.33 OBSTRUCTIVE SLEEP APNEA (ADULT) (PEDIATR 10/31/2018 BLAIR DO, VÍCTOR K Ot G93.40 ENCEPHALOPATHY, UNSPECIFIED 10/31/2018 BLAIR DO, VÍCTOR K Ot I10 ESSENTIAL (PRIMARY) HYPERTENSION 10/31/2018 BLAIR DO, VÍCTOR K Ot J20.8 ACUTE BRONCHITIS DUE TO OTHER SPECIFIED 10/31/2018 VÍCTOR BLAIR DO Ot J30.2 OTHER SEASONAL ALLERGIC RHINITIS 10/31/2018 VÍCTOR BLAIR DO Ot J43.9 EMPHYSEMA, UNSPECIFIED 10/31/2018 VÍCTOR BLAIR DO Ot J96.21 ACUTE AND CHRONIC RESPIRATORY FAILURE WI 10/31/2018 VÍCTOR BLAIR DO Ot J96.22 ACUTE AND CHRONIC RESPIRATORY FAILURE WI 10/31/2018 VÍCTOR BLAIR DO Ot Z68.33 BODY MASS INDEX (BMI) 33.0-33.9, ADULT 10/31/2018 VÍCTOR BLAIR DO Ot Z79.84 LONGTERM (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 OF ORAL HYPOGLYC 10/31/2018 VÍCTOR BLAIR DO Ot Z99.81 DEPENDENCE ON SUPPLEMENTAL OXYGEN 01/15/2019 Ot 278.00 OBE SITY, NOS 01/15/2019 Ot 296.90 UNS PECIFIED EPISODIC MOOD DISORDER 01/15/2019 Ot 305.1 TOBA GEARCASE ASSEMBLER USE DISORDER 01/15/2019 Ot 496 CHR AI RWAY OBSTRUCT NEC 01/15/2019 Ot 780.54 HYP ERSOMNIA, UNSPECIFIED 01/15/2019 Ot 786.09 RES PIRATORY ABNORM NEC 01/16/2019 BERTRAM DOWNING APRN Ot E66.9 OBESITY, UNSPECIFIED 01/16/2019 BERTRAM DOWNING APRN Ot F17.200 NICOTINE DEPENDENCE, UNSPECIFIED, UNCOMP 01/16/2019 BERTRAM DOWNING APRN Ot F39 UNSPECIFIED MOOD [AFFECTIVE] DISORDER 01/16/2019 BERTRAM DOWNING APRN Ot G47.10 HYPERSOMNIA, UNSPECIFIED 01/16/2019 BERTRAM DOWNING APRN Ot G47.33 OBSTRUCTIVE SLEEP APNEA (ADULT) (PEDIATR 01/16/2019 BERTRAM DOWNING APRN Ot J18.8 OTHER PNEUMONIA, UNSPECIFIED ORGANISM 01/16/2019 BERTRAM DOWNING APRN Ot J44.9 CHRONIC OBSTRUCTIVE PULMONARY DISEASE, U 01/16/2019 BERTRAM DOWNING APRN Ot J96.21 ACUTE AND CHRONIC RESPIRATORY FAILURE [place] 01/16/2019 BERTRAM DOWNING APRN Ot J96.91 RESPIRATORY FAILURE, UNSPECIFIED WITH HY 01/16/2019 BERTRAM DOWNING APRN Ot Z90.49 ACQUIRED ABSENCE OF OTHER SPECIFIED PART 01/21/2019 SALINA, BERTRAM E STAFF FIELD ENGINEER Ot E66.9 OBESITY, UNSPECIFIED 01/21/2019 SALINA, BERTRAM E STAFF FIELD ENGINEER Ot F17.200 NICOTINE DEPENDENCE, UNSPECIFIED, UNCOMP 01/21/2019 SALINA, BERTRAM E STAFF FIELD ENGINEER Ot F39 UNSPECIFIED MOOD [AFFECTIVE] DISORDER 01/21/2019 SALINA, BERTRAM E STAFF FIELD ENGINEER Ot G47.10 HYPERSOMNIA, UNSPECIFIED 01/21/2019 SALNIA, BERTRAM E STAFF FIELD ENGINEER Ot G47.33 OBSTRUCTIVE SLEEP APNEA (ADULT) (PEDIATR 01/21/2019 SALINA, BERTRAM E STAFF FIELD ENGINEER Ot J18.8 OTHER PNEUMONIA, UNSPECIFIED ORGANISM 01/21/2019 SALINACARIDADBERTRAM E STAFF FIELD ENGINEER Ot J44.9 CHRONIC OBSTRUCTIVE PULMONARY DISEASE, U 01/21/2019 SALINA, BERTRAM E STAFF FIELD ENGINEER Ot J96.21 ACUTE AND CHRONIC RESPIRATORY FAILURE [place] 01/21/2019 SALINA, BERTRAM E STAFF FIELD ENGINEER Ot J96.91 RESPIRATORY FAILURE, UNSPECIFIED WITH HY 01/21/2019 SALINACARIDAD C[place]INE E STAFF FIELD ENGINEER Ot Z90.49 ACQUIRED ABSENCE OF OTHER SPECIFIED PART 02/03/2019 SALINA, BERTRAM E STAFF FIELD ENGINEER Ot E66.9 OBESITY, UNSPECIFIED 02/03/2019 SALINA, BERTRAM E STAFF FIELD ENGINEER Ot F17.200 NICOTINE DEPENDENCE, UNSPECIFIED, UNCOMP 02/03/2019 SALINA, BERTRAM E STAFF FIELD ENGINEER Ot F39 UNSPECIFIED MOOD [AFFECTIVE] DISORDER 02/03/2019 SALINACARIDAD CLEVELANDINE E STAFF FIELD ENGINEER Ot G47.10 HYPERSOMNIA, UNSPECIFIED 02/03/2019 SALINA, BERTRAM E STAFF FIELD ENGINEER Ot G47.33 OBSTRUCTIVE SLEEP APNEA (ADULT) (PEDIATR 02/03/2019 SALINA BERTRAM E STAFF FIELD ENGINEER Ot J18.8 OTHER PNEUMONIA, UNSPECIFIED ORGANISM 02/03/2019 SALINA, BERTRAM E STAFF FIELD ENGINEER Ot J44.9 CHRONIC OBSTRUCTIVE PULMONARY DISEASE, U 02/03/2019 SALINA, BERTRAM E STAFF FIELD ENGINEER Ot J96.21 ACUTE AND CHRONIC RESPIRATORY FAILURE [place] 02/03/2019 SALINA, BERTRAM E STAFF FIELD ENGINEER Ot J96.91 RESPIRATORY FAILURE, UNSPECIFIED WITH HY 02/03/2019 SALINA, BERTRAM E STAFF FIELD ENGINEER Ot Z90.49 ACQUIRED ABSENCE OF OTHER SPECIFIED PART 03/10/2019 LISA LOONEY, VAN Mckeon Ot E03 .9 HYPOTHYROIDISM, UNSPECIFIED 03/10/2019 VAN GONZALEZ MD Ot E11 .9 TYPE 2 DIABETES MELLITUS WITHOUT COMPLIC 03/10/2019 VAN GONZALEZ MD Ot E66 .9 OBESITY, UNSPECIFIED 03/10/2019 VAN GONZALEZ MD Ot E78.00 PURE HYPERCHOLESTEROLEMIA, UNSPECIFIED 03/10/2019 VAN GONZALEZ MD Ot E83.52 HYPERCALCEMIA 03/10/2019 VAN GONZALEZ MD Ot F17.210 NICOTINE DEPENDENCE, CIGARETTES, UNCOMPL 03/10/2019 VAN GONZALEZ MD Ot F32 .9 MAJOR DEPRESSIVE DISORDER, SINGLE EPISOD 03/10/2019 VAN GONZALEZ MD Ot F41 .9 ANXIETY DISORDER, UNSPECIFIED 03/10/2019 VAN GONZALEZ MD Ot I11 .0 HYPERTENSIVE HEART DISEASE WITH HEART FA 03/10/2019 VAN GONZALEZ MD Ot I21.A1 MYOCARDIAL INFARCTION TYPE 2 03/10/2019 VAN GONZALEZ MD Ot I27.20 PULMONARY HYPERTENSION, UNSPECIFIED 03/10/2019 VAN GONZALEZ MD Ot I42 .9 CARDIOMYOPATHY, UNSPECIFIED 03/10/2019 VAN GONZALEZ MD Ot I50.31 ACUTE DIASTOLIC (CONGESTIVE) HEART FAILU 03/10/2019 VAN GONZALEZ MD Ot J30 .2 OTHER SEASONAL ALLERGIC RHINITIS 03/10/2019 VAN GONZALEZ MD, Ot J44 .9 CHRONIC OBSTRUCTIVE PULMONARY DISEASE, U 03/10/2019 VAN GONZALEZ MD Ot J96.21 ACUTE AND CHRONIC RESPIRATORY FAILURE [place] 03/10/2019 VAN GONZALEZ MD Ot J96.22 ACUTE AND CHRONIC RESPIRATORY FAILURE [place] 03/10/2019 VAN GONZALEZ MD Ot N39 .0 URINARY TRACT INFECTION, SITE NOT SPECIF 03/10/2019 VAN GONZALEZ MD Ot R06.89 OTHER ABNORMALITIES OF BREATHING 03/10/2019 VAN GONZALEZ MD Ot Z68.37 BODY MASS INDEX (BMI) 37.0-37.9, ADULT 03/10/2019 VAN GONZALEZ MD, Ot Z79.84 LONGTERM (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 OF ORAL HYPOGLYC 03/10/2019 VAN GONZALEZ MD Ot Z91.19 PATIENT'S NONCOMPLIANCE W [facility] 03/10/2019 VAN GONZALEZ MD, Ot Z99.81 DEPENDENCE ON SUPPLEMENTAL OXYGEN 03/11/2019 VAN GONZALEZ MD, Ot E03 .9 HYPOTHYROIDISM, UNSPECIFIED 03/11/2019 VAN GONZALEZ MD, Ot E11 .9 TYPE 2 DIABETES MELLITUS WITHOUT COMPLIC 03/11/2019 VAN GONZALEZ MD, Ot E66 .9 OBESITY, UNSPECIFIED 03/11/2019 VAN GONZALEZ MD Ot E78.00 PURE HYPERCHOLESTEROLEMIA, UNSPECIFIED 03/11/2019 VAN GONZALEZ MD Ot E83.52 HYPERCALCEMIA 03/11/2019 VAN GONZALEZ MD Ot F17.210 NICOTINE DEPENDENCE, CIGARETTES, UNCOMPL 03/11/2019 VAN GONZALEZ MD Ot F32 .9 MAJOR DEPRESSIVE DISORDER, SINGLE EPISOD 03/11/2019 VAN GONZALEZ MD, Ot F41 .9 ANXIETY DISORDER, UNSPECIFIED 03/11/2019 VAN GONZALEZ MD Ot I11 .0 HYPERTENSIVE HEART DISEASE WITH HEART FA 03/11/2019 VAN GONZALEZ MD Ot I21.A1 MYOCARDIAL INFARCTION TYPE 2 03/11/2019 VAN GONZALEZ MD Ot I27.20 PULMONARY HYPERTENSION, UNSPECIFIED 03/11/2019 VAN GONZALEZ MD Ot I42 .9 CARDIOMYOPATHY, UNSPECIFIED 03/11/2019 VAN GONZALEZ MD Ot I50.31 ACUTE DIASTOLIC (CONGESTIVE) HEART FAILU 03/11/2019 VAN GONZALEZ MD Ot J30 .2 OTHER SEASONAL ALLERGIC RHINITIS 03/11/2019 VAN GONZALEZ MD, Ot J44 .9 CHRONIC OBSTRUCTIVE PULMONARY DISEASE, U 03/11/2019 VAN GONZALEZ MD, Ot J96.21 ACUTE AND CHRONIC RESPIRATORY FAILURE [place] 03/11/2019 VAN GONZALEZ MD Ot J96.22 ACUTE AND CHRONIC RESPIRATORY FAILURE [place] 03/11/2019 VAN GONZALEZ MD Ot N39 .0 URINARY TRACT INFECTION, SITE NOT SPECIF 03/11/2019 VAN GONZALEZ MD Ot R06.89 OTHER ABNORMALITIES OF BREATHING 03/11/2019 VAN GONZALEZ MD Ot Z68.37 BODY MASS INDEX (BMI) 37.0-37.9, ADULT 03/11/2019 VAN GONZALEZ MD, Ot Z79.84 LONGTERM (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 OF ORAL HYPOGLYC 03/11/2019 VAN GONZALEZ MD, Ot Z91.19 PATIENT'S NONCOMPLIANCE W [facility] 03/11/2019 VAN GONZALEZ MD, Ot Z99.81 DEPENDENCE ON SUPPLEMENTAL OXYGEN 03/11/2019 VAN GONZALEZ MD, Ot E03 .9 HYPOTHYROIDISM, UNSPECIFIED 03/11/2019 VAN GONZALEZ MD Ot E11 .9 TYPE 2 DIABETES MELLITUS WITHOUT COMPLIC 03/11/2019 VAN GONZALEZ MD, Ot E66 .9 OBESITY, UNSPECIFIED 03/11/2019 VAN GONZALEZ MD Ot E78.00 PURE HYPERCHOLESTEROLEMIA, UNSPECIFIED 03/11/2019 VAN GONZALEZ MD Ot E83.52 HYPERCALCEMIA 03/11/2019 VAN GONZALEZ MD Ot E87 .2 ACIDOSIS 03/11/2019 VAN GONZALEZ MD Ot F17.210 NICOTINE DEPENDENCE, CIGARETTES, UNCOMPL 03/11/2019 VAN GONZALEZ MD Ot F32 .9 MAJOR DEPRESSIVE DISORDER, SINGLE EPISOD 03/11/2019 VAN GONZALEZ MD Ot F41 .9 ANXIETY DISORDER, UNSPECIFIED 03/11/2019 VAN GONZALEZ MD Ot I11 .0 HYPERTENSIVE HEART DISEASE WITH HEART FA 03/11/2019 VAN GONZALEZ MD Ot I21.A1 MYOCARDIAL INFARCTION TYPE 2 03/11/2019 VAN GONZALEZ MD, Ot I27.20 PULMONARY HYPERTENSION, UNSPECIFIED 03/11/2019 VAN GONZALEZ MD Ot I42 .9 CARDIOMYOPATHY, UNSPECIFIED 03/11/2019 VAN GONZALEZ MD Ot I50.31 ACUTE DIASTOLIC (CONGESTIVE) HEART FAILU 03/11/2019 VAN GONZALEZ MD, Ot J30 .2 OTHER SEASONAL ALLERGIC RHINITIS 03/11/2019 VAN GONZALEZ MD, Ot J44 .1 CHRONIC OBSTRUCTIVE PULMONARY DISEASE W 03/11/2019 VAN GONZALEZ MD Ot J96.21 ACUTE AND CHRONIC RESPIRATORY FAILURE [place] 03/11/2019 VAN GONZALEZ MD Ot J96.22 ACUTE AND CHRONIC RESPIRATORY FAILURE [place] 03/11/2019 VAN GONZALEZ MD Ot R06.89 OTHER ABNORMALITIES OF BREATHING 03/11/2019 VAN GONZALEZ MD, Ot Z68.37 BODY MASS INDEX (BMI) 37.0-37.9, ADULT 03/11/2019 VAN GONZALEZ MD, Ot Z79.84 LONGTERM (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 OF ORAL HYPOGLYC 03/11/2019 VAN GONZALEZ MD, Ot Z91.19 PATIENT'S NONCOMPLIANCE W [facility] 03/11/2019 VAN GONZALEZ MD, Ot Z99.81 DEPENDENCE ON SUPPLEMENTAL OXYGEN 03/12/2019 VAN OGNZALEZ MD, Ot E03 .9 HYPOTHYROIDISM, UNSPECIFIED 03/12/2019 VAN GONZALEZ MD, Ot E11 .9 TYPE 2 DIABETES MELLITUS WITHOUT COMPLIC 03/12/2019 VAN GONZALEZ MD, Ot E66 .9 OBESITY, UNSPECIFIED 03/12/2019 VAN GONZALEZ MD Ot E78.00 PURE HYPERCHOLESTEROLEMIA, UNSPECIFIED 03/12/2019 VAN GONZALEZ MD Ot E83.52 HYPERCALCEMIA 03/12/2019 VAN GONZALEZ MD Ot E87 .2 ACIDOSIS 03/12/2019 VAN GONZALEZ MD Ot F17.210 NICOTINE DEPENDENCE, CIGARETTES, UNCOMPL 03/12/2019 VAN GONZALEZ MD Ot F32 .9 MAJOR DEPRESSIVE DISORDER, SINGLE EPISOD 03/12/2019 VAN GONZALEZ MD, Ot F41 .9 ANXIETY DISORDER, UNSPECIFIED 03/12/2019 VAN GONZALEZ MD Ot I11 .0 HYPERTENSIVE HEART DISEASE WITH HEART FA 03/12/2019 VAN GONZALEZ MD, Ot I21.A1 MYOCARDIAL INFARCTION TYPE 2 03/12/2019 VAN GONZALEZ MD, Ot I27.20 PULMONARY HYPERTENSION, UNSPECIFIED 03/12/2019 VAN GONZALEZ MD, Ot I42 .9 CARDIOMYOPATHY, UNSPECIFIED 03/12/2019 VAN GONZALEZ MD Ot I50.31 ACUTE DIASTOLIC (CONGESTIVE) HEART FAILU 03/12/2019 VAN GONZALEZ MD, Ot J30 .2 OTHER SEASONAL ALLERGIC RHINITIS 03/12/2019 VAN GONZALEZ MD, Ot J44 .1 CHRONIC OBSTRUCTIVE PULMONARY DISEASE W 03/12/2019 VAN GONZALEZ MD, Ot J96.21 ACUTE AND CHRONIC RESPIRATORY FAILURE [place] 03/12/2019 VAN GONZALEZ MD, Ot J96.22 ACUTE AND CHRONIC RESPIRATORY FAILURE [place] 03/12/2019 VAN GONZALEZ MD, Ot R06.89 OTHER ABNORMALITIES OF BREATHING 03/12/2019 VAN GONZALEZ MD, Ot Z68.37 BODY MASS INDEX (BMI) 37.0-37.9, ADULT 03/12/2019 VAN GONZALEZ MD, Ot 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 03/12/2019 VAN GONZALEZ MD, Ot Z91.19 PATIENT'S NONCOMPLIANCE W [facility] 03/12/2019 VAN GONZALEZ MD, Ot Z99.81 DEPENDENCE ON SUPPLEMENTAL OXYGEN 03/12/2019 VAN GONZALEZ MD, Ot E03 .9 HYPOTHYROIDISM, UNSPECIFIED 03/12/2019 VAN GONZALEZ MD, Ot E11 .9 TYPE 2 DIABETES MELLITUS WITHOUT COMPLIC 03/12/2019 VAN GONZALEZ MD, Ot E66 .9 OBESITY, UNSPECIFIED 03/12/2019 VAN GONZALEZ MD Ot E78.00 PURE HYPERCHOLESTEROLEMIA, UNSPECIFIED 03/12/2019 VAN GONZALEZ MD, Ot E83.52 HYPERCALCEMIA 03/12/2019 VAN GONZALEZ MD Ot E87 .2 ACIDOSIS 03/12/2019 VAN GONZALEZ MD, Ot F17.210 NICOTINE DEPENDENCE, CIGARETTES, UNCOMPL 03/12/2019 VAN GONZALEZ MD, Ot F32 .9 MAJOR DEPRESSIVE DISORDER, SINGLE EPISOD 03/12/2019 VAN GONZALEZ MD, Ot F41 .9 ANXIETY DISORDER, UNSPECIFIED 03/12/2019 VAN GONZALEZ MD Ot I11 .0 HYPERTENSIVE HEART DISEASE WITH HEART FA 03/12/2019 VAN GONZALEZ MD, Ot I21.A1 MYOCARDIAL INFARCTION TYPE 2 03/12/2019 VAN GONZALEZ MD, Ot I27.20 PULMONARY HYPERTENSION, UNSPECIFIED 03/12/2019 VAN GONZALEZ MD, Ot I42 .9 CARDIOMYOPATHY, UNSPECIFIED 03/12/2019 VAN GONZALEZ MD, Ot I50.31 ACUTE DIASTOLIC (CONGESTIVE) HEART FAILU 03/12/2019 VAN GONZALEZ MD, Ot J30 .2 OTHER SEASONAL ALLERGIC RHINITIS 03/12/2019 VAN GONZALEZ MD, Ot J44 .1 CHRONIC OBSTRUCTIVE PULMONARY DISEASE W 03/12/2019 VAN GONZALEZ MD, Ot J96.21 ACUTE AND CHRONIC RESPIRATORY FAILURE [place] 03/12/2019 VAN GONZALEZ MD, Ot J96.22 ACUTE AND CHRONIC RESPIRATORY FAILURE [place] 03/12/2019 VAN GONZALEZ MD, Ot R06.89 OTHER ABNORMALITIES OF BREATHING 03/12/2019 VAN GONZALEZ MD, Ot Z68.37 BODY MASS INDEX (BMI) 37.0-37.9, ADULT 03/12/2019 VAN GONZALEZ MD, Ot 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 03/12/2019 VAN GONZALEZ MD, Ot Z91.19 PATIENT'S NONCOMPLIANCE W [facility] 03/12/2019 VAN GONZALEZ MD, Ot Z99.81 DEPENDENCE ON SUPPLEMENTAL OXYGEN 03/13/2019 VAN GONZALEZ MD, Ot E03 .9 HYPOTHYROIDISM, UNSPECIFIED 03/13/2019 VAN GONZALEZ MD Ot E11 .9 TYPE 2 DIABETES MELLITUS WITHOUT COMPLIC 03/13/2019 VAN GONZALEZ MD Ot E66 .9 OBESITY, UNSPECIFIED 03/13/2019 VAN GONZALEZ MD Ot E78.00 PURE HYPERCHOLESTEROLEMIA, UNSPECIFIED 03/13/2019 VAN GONZALEZ MD, Ot E83.52 HYPERCALCEMIA 03/13/2019 VNA GONZAELZ MD Ot E87 .2 ACIDOSIS 03/13/2019 VAN GONZALEZ MD Ot F17.210 NICOTINE DEPENDENCE, CIGARETTES, UNCOMPL 03/13/2019 VAN GONZALEZ MD Ot F32 .9 MAJOR DEPRESSIVE DISORDER, SINGLE EPISOD 03/13/2019 VAN GONZALEZ MD, Ot F41 .9 ANXIETY DISORDER, UNSPECIFIED 03/13/2019 VAN GONZALEZ MD, Ot I11 .0 HYPERTENSIVE HEART DISEASE WITH HEART FA 03/13/2019 VAN GONZALEZ MD, Ot I21.A1 MYOCARDIAL INFARCTION TYPE 2 03/13/2019 LISA MD, VAN N Ot I27.20 PULMONARY HYPERTENSION, UNSPECIFIED 03/13/2019 VAN GONZALEZ MD Ot I42 .9 CARDIOMYOPATHY, UNSPECIFIED 03/13/2019 VAN GONZALEZ MD Ot I50.31 ACUTE DIASTOLIC (CONGESTIVE) HEART FAILU 03/13/2019 VAN GONZALEZ MD, Ot J30 .2 OTHER SEASONAL ALLERGIC RHINITIS 03/13/2019 VAN GONZALEZ MD, Ot J44 .1 CHRONIC OBSTRUCTIVE PULMONARY DISEASE W 03/13/2019 VAN GONZALEZ MD, Ot J96.21 ACUTE AND CHRONIC RESPIRATORY FAILURE [place] 03/13/2019 VAN GONZALEZ MD, Ot J96.22 ACUTE AND CHRONIC RESPIRATORY FAILURE [place] 03/13/2019 VAN GONZALEZ MD Ot R06.89 OTHER ABNORMALITIES OF BREATHING 03/13/2019 VAN GONZALEZ MD, Ot Z68.37 BODY MASS INDEX (BMI) 37.0-37.9, ADULT 03/13/2019 VAN GONZALEZ MD, Ot Z79.84 LONGTERM (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 OF ORAL HYPOGLYC 03/13/2019 VAN GONZALEZ MD Ot Z91.19 PATIENT'S NONCOMPLIANCE W [facility] 03/13/2019 VAN GONZALEZ MD, Ot Z99.81 DEPENDENCE ON SUPPLEMENTAL OXYGEN 03/14/2019 VAN GONZALEZ MD Ot E03 .9 HYPOTHYROIDISM, UNSPECIFIED 03/14/2019 VAN GONZALEZ MD Ot E11 .9 TYPE 2 DIABETES MELLITUS WITHOUT COMPLIC 03/14/2019 VAN GONZALEZ MD Ot E66 .9 OBESITY, UNSPECIFIED 03/14/2019 VAN GONZALEZ MD Ot E78.00 PURE HYPERCHOLESTEROLEMIA, UNSPECIFIED 03/14/2019 VAN GONZALEZ MD Ot E83.52 HYPERCALCEMIA 03/14/2019 VAN GONZALEZ MD Ot E87 .2 ACIDOSIS 03/14/2019 VAN GONZALEZ MD Ot F17.210 NICOTINE DEPENDENCE, CIGARETTES, UNCOMPL 03/14/2019 VAN GONZALEZ MD Ot F32 .9 MAJOR DEPRESSIVE DISORDER, SINGLE EPISOD 03/14/2019 VAN GONZALEZ MD, Ot F41 .9 ANXIETY DISORDER, UNSPECIFIED 03/14/2019 VAN GONZALEZ MD Ot I11 .0 HYPERTENSIVE HEART DISEASE WITH HEART FA 03/14/2019 VAN GONZALEZ MD, Ot I21.A1 MYOCARDIAL INFARCTION TYPE 2 03/14/2019 VAN GONZALEZ MD, Ot I27.20 PULMONARY HYPERTENSION, UNSPECIFIED 03/14/2019 VAN GONZALEZ MD, Ot I42 .9 CARDIOMYOPATHY, UNSPECIFIED 03/14/2019 VAN GONZALEZ MD Ot I50.31 ACUTE DIASTOLIC (CONGESTIVE) HEART FAILU 03/14/2019 VAN GONZALEZ MD, Ot J30 .2 OTHER SEASONAL ALLERGIC RHINITIS 03/14/2019 VAN GONZALEZ MD, Ot J44 .1 CHRONIC OBSTRUCTIVE PULMONARY DISEASE W 03/14/2019 VAN GONZALEZ MD, Ot J96.21 ACUTE AND CHRONIC RESPIRATORY FAILURE [place] 03/14/2019 VAN GONZALEZ MD, Ot J96.22 ACUTE AND CHRONIC RESPIRATORY FAILURE [place] 03/14/2019 VAN GONZALEZ MD Ot R06.89 OTHER ABNORMALITIES OF BREATHING 03/14/2019 VAN GONZALEZ MD, Ot Z68.37 BODY MASS INDEX (BMI) 37.0-37.9, ADULT 03/14/2019 VAN GONZALEZ MD, Ot Z79.84 LONGTERM (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 OF ORAL HYPOGLYC 03/14/2019 VAN GONZALEZ MD, Ot Z91.19 PATIENT'S NONCOMPLIANCE W [facility] 03/14/2019 VAN GONZALEZ MD, Ot Z99.81 DEPENDENCE ON SUPPLEMENTAL OXYGEN 03/14/2019 VAN GONZALEZ MD, Ot E03 .9 HYPOTHYROIDISM, UNSPECIFIED 03/14/2019 VNA GONZALEZ MD, Ot E11 .9 TYPE 2 DIABETES MELLITUS WITHOUT COMPLIC 03/14/2019 VAN GONZALEZ MD, Ot E66 .9 OBESITY, UNSPECIFIED 03/14/2019 VAN GONZALEZ MD, Ot E78.00 PURE HYPERCHOLESTEROLEMIA, UNSPECIFIED 03/14/2019 VAN GONZALEZ MD Ot E83.52 HYPERCALCEMIA 03/14/2019 VAN GONZALEZ MD Ot E87 .2 ACIDOSIS 03/14/2019 VAN GONZALEZ MD Ot F17.210 NICOTINE DEPENDENCE, CIGARETTES, UNCOMPL 03/14/2019 VAN GONZALEZ MD Ot F32 .9 MAJOR DEPRESSIVE DISORDER, SINGLE EPISOD 03/14/2019 VAN GONZALEZ MD, Ot F41 .9 ANXIETY DISORDER, UNSPECIFIED 03/14/2019 VAN GONZALEZ MD, Ot I11 .0 HYPERTENSIVE HEART DISEASE WITH HEART FA 03/14/2019 VAN GONZALEZ MD, Ot I21.A1 MYOCARDIAL INFARCTION TYPE 2 03/14/2019 VAN GONZALEZ MD, Ot I27.20 PULMONARY HYPERTENSION, UNSPECIFIED 03/14/2019 VAN GONZALEZ MD, Ot I42 .9 CARDIOMYOPATHY, UNSPECIFIED 03/14/2019 VAN GONZALEZ MD, Ot I50.31 ACUTE DIASTOLIC (CONGESTIVE) HEART FAILU 03/14/2019 VAN GONZALEZ MD, Ot J30 .2 OTHER SEASONAL ALLERGIC RHINITIS 03/14/2019 VAN GONZALEZ MD, Ot J44 .1 CHRONIC OBSTRUCTIVE PULMONARY DISEASE W 03/14/2019 VAN GONZALEZ MD, Ot J96.21 ACUTE AND CHRONIC RESPIRATORY FAILURE [place] 03/14/2019 VAN GONZALEZ MD, Ot J96.22 ACUTE AND CHRONIC RESPIRATORY FAILURE [place] 03/14/2019 VAN GONZALEZ MD Ot R06.89 OTHER ABNORMALITIES OF BREATHING 03/14/2019 VAN GONZALEZ MD, Ot Z68.37 BODY MASS INDEX (BMI) 37.0-37.9, ADULT 03/14/2019 VAN GONZALEZ MD, Ot 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 03/14/2019 VAN GONZALEZ MD, Ot Z91.19 PATIENT'S NONCOMPLIANCE W [facility] 03/14/2019 VAN GONZALEZ MD, Ot Z99.81 DEPENDENCE ON SUPPLEMENTAL OXYGEN 03/15/2019 VAN GONZALEZ MD, Ot E03 .9 HYPOTHYROIDISM, UNSPECIFIED 03/15/2019 VAN GONAZLEZ MD, Ot E11 .9 TYPE 2 DIABETES MELLITUS WITHOUT COMPLIC 03/15/2019 VAN GONZALEZ MD, Ot E66 .9 OBESITY, UNSPECIFIED 03/15/2019 VAN GONZALEZ MD Ot E78.00 PURE HYPERCHOLESTEROLEMIA, UNSPECIFIED 03/15/2019 VAN GONZALEZ MD Ot E83.52 HYPERCALCEMIA 03/15/2019 VAN GONZALEZ MD Ot E87 .2 ACIDOSIS 03/15/2019 VAN GONZALEZ MD Ot F17.210 NICOTINE DEPENDENCE, CIGARETTES, UNCOMPL 03/15/2019 VAN GONZALEZ MD, Ot F32 .9 MAJOR DEPRESSIVE DISORDER, SINGLE EPISOD 03/15/2019 VAN GONZALEZ MD, Ot F41 .9 ANXIETY DISORDER, UNSPECIFIED 03/15/2019 VAN GONZALEZ MD Ot I11 .0 HYPERTENSIVE HEART DISEASE WITH HEART FA 03/15/2019 VAN GONZALEZ MD, Ot I21.A1 MYOCARDIAL INFARCTION TYPE 2 03/15/2019 VAN GONZALEZ MD, Ot I27.20 PULMONARY HYPERTENSION, UNSPECIFIED 03/15/2019 VAN GONZALEZ MD, Ot I42 .9 CARDIOMYOPATHY, UNSPECIFIED 03/15/2019 VAN GONZALEZ MD Ot I50.31 ACUTE DIASTOLIC (CONGESTIVE) HEART FAILU 03/15/2019 VAN GONZALEZ MD, Ot J30 .2 OTHER SEASONAL ALLERGIC RHINITIS 03/15/2019 VAN GONZALEZ MD, Ot J44 .1 CHRONIC OBSTRUCTIVE PULMONARY DISEASE W 03/15/2019 VAN GONZALEZ MD, Ot J96.21 ACUTE AND CHRONIC RESPIRATORY FAILURE [place] 03/15/2019 VAN GONZALEZ MD, Ot J96.22 ACUTE AND CHRONIC RESPIRATORY FAILURE [place] 03/15/2019 VAN GONZALEZ MD Ot R06.89 OTHER ABNORMALITIES OF BREATHING 03/15/2019 VAN GONZALEZ MD, Ot Z68.37 BODY MASS INDEX (BMI) 37.0-37.9, ADULT 03/15/2019 VAN GONZALEZ MD, Ot 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 03/15/2019 VAN GONZALEZ MD, Ot Z91.19 PATIENT'S NONCOMPLIANCE W [facility] 03/15/2019 VAN GONZALEZ MD, Ot Z99.81 DEPENDENCE ON SUPPLEMENTAL OXYGEN 03/16/2019 VAN GONZALEZ MD, Ot E03 .9 HYPOTHYROIDISM, UNSPECIFIED 03/16/2019 VAN GONZALEZ MD, Ot E11 .9 TYPE 2 DIABETES MELLITUS WITHOUT COMPLIC 03/16/2019 VAN GONZALEZ MD, Ot E66 .9 OBESITY, UNSPECIFIED 03/16/2019 VAN GONZALEZ MD, Ot E78.00 PURE HYPERCHOLESTEROLEMIA, UNSPECIFIED 03/16/2019 VAN GONZALEZ MD, Ot E83.52 HYPERCALCEMIA 03/16/2019 VAN GONZALEZ MD Ot E87 .2 ACIDOSIS 03/16/2019 VAN GONZALEZ MD, Ot F17.210 NICOTINE DEPENDENCE, CIGARETTES, UNCOMPL 03/16/2019 VAN GONZALEZ MD, Ot F32 .9 MAJOR DEPRESSIVE DISORDER, SINGLE EPISOD 03/16/2019 VAN GONZALEZ MD, Ot F41 .9 ANXIETY DISORDER, UNSPECIFIED 03/16/2019 VAN GONZALEZ MD, Ot I11 .0 HYPERTENSIVE HEART DISEASE WITH HEART FA 03/16/2019 VAN GONZALEZ MD, Ot I21.A1 MYOCARDIAL INFARCTION TYPE 2 03/16/2019 VAN GONZALEZ MD, Ot I27.20 PULMONARY HYPERTENSION, UNSPECIFIED 03/16/2019 VAN GONZALEZ MD, Ot I42 .9 CARDIOMYOPATHY, UNSPECIFIED 03/16/2019 VAN GONZALEZ MD, Ot I50.31 ACUTE DIASTOLIC (CONGESTIVE) HEART FAILU 03/16/2019 VAN GONZALEZ MD, Ot J30 .2 OTHER SEASONAL ALLERGIC RHINITIS 03/16/2019 VAN GONZALEZ MD, Ot J44 .1 CHRONIC OBSTRUCTIVE PULMONARY DISEASE W 03/16/2019 VAN GONZALEZ MD, Ot J96.21 ACUTE AND CHRONIC RESPIRATORY FAILURE [place] 03/16/2019 VAN GONZALEZ MD, Ot J96.22 ACUTE AND CHRONIC RESPIRATORY FAILURE [place] 03/16/2019 VAN GONZALEZ MD Ot R06.89 OTHER ABNORMALITIES OF BREATHING 03/16/2019 VAN GONZALEZ MD, Ot Z68.37 BODY MASS INDEX (BMI) 37.0-37.9, ADULT 03/16/2019 VAN GONZALEZ MD, Ot 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 03/16/2019 VAN GONZALEZ MD, Ot Z91.19 PATIENT'S NONCOMPLIANCE W [facility] 03/16/2019 VAN GONZALEZ MD, Ot Z99.81 DEPENDENCE ON SUPPLEMENTAL OXYGEN 03/16/2019 VAN GONZALEZ MD, Ot E03 .9 HYPOTHYROIDISM, UNSPECIFIED 03/16/2019 VAN GONZALEZ MD, Ot E11 .9 TYPE 2 DIABETES MELLITUS WITHOUT COMPLIC 03/16/2019 VAN GONZALEZ MD Ot E66 .9 OBESITY, UNSPECIFIED 03/16/2019 VAN GONZALEZ MD Ot E78.00 PURE HYPERCHOLESTEROLEMIA, UNSPECIFIED 03/16/2019 VAN GONZALEZ MD Ot E83.52 HYPERCALCEMIA 03/16/2019 VAN GONZALEZ MD Ot E87 .2 ACIDOSIS 03/16/2019 VAN GONZALEZ MD Ot F17.210 NICOTINE DEPENDENCE, CIGARETTES, UNCOMPL 03/16/2019 VAN GONZALEZ MD Ot F32 .9 MAJOR DEPRESSIVE DISORDER, SINGLE EPISOD 03/16/2019 VAN GONZALEZ MD, Ot F41 .9 ANXIETY DISORDER, UNSPECIFIED 03/16/2019 VAN GONZALEZ MD Ot I11 .0 HYPERTENSIVE HEART DISEASE WITH HEART FA 03/16/2019 VAN GONZALEZ MD Ot I21.A1 MYOCARDIAL INFARCTION TYPE 2 03/16/2019 VAN GONZALEZ MD Ot I27.20 PULMONARY HYPERTENSION, UNSPECIFIED 03/16/2019 VAN GONZALEZ MD Ot I42 .9 CARDIOMYOPATHY, UNSPECIFIED 03/16/2019 VAN GONZALEZ MD Ot I50.31 ACUTE DIASTOLIC (CONGESTIVE) HEART FAILU 03/16/2019 VAN GONZALEZ MD Ot J30 .2 OTHER SEASONAL ALLERGIC RHINITIS 03/16/2019 VAN GONZALEZ MD, Ot J44 .1 CHRONIC OBSTRUCTIVE PULMONARY DISEASE W 03/16/2019 VAN GONZALEZ MD Ot J96.21 ACUTE AND CHRONIC RESPIRATORY FAILURE [place] 03/16/2019 VAN GONZALEZ MD Ot J96.22 ACUTE AND CHRONIC RESPIRATORY FAILURE [place] 03/16/2019 VAN GONZALEZ MD Ot R06.89 OTHER ABNORMALITIES OF BREATHING 03/16/2019 VAN GONZALEZ MD, Ot Z68.37 BODY MASS INDEX (BMI) 37.0-37.9, ADULT 03/16/2019 VAN GONZALEZ MD, Ot 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 03/16/2019 VAN GONZALEZ MD Ot Z91.19 PATIENT'S NONCOMPLIANCE W [facility] 03/16/2019 VAN GONZALEZ MD, Ot Z99.81 DEPENDENCE ON SUPPLEMENTAL OXYGEN 03/16/2019 VAN GONZALEZ MD, Ot E03 .9 HYPOTHYROIDISM, UNSPECIFIED 03/16/2019 VAN GONZALEZ MD, Ot E11 .9 TYPE 2 DIABETES MELLITUS WITHOUT COMPLIC 03/16/2019 VAN GONZALEZ MD, Ot E66 .9 OBESITY, UNSPECIFIED 03/16/2019 VAN GONZALEZ MD, Ot E78.00 PURE HYPERCHOLESTEROLEMIA, UNSPECIFIED 03/16/2019 VAN GONZALEZ MD, Ot E83.52 HYPERCALCEMIA 03/16/2019 VAN GONZALEZ MD Ot E87 .2 ACIDOSIS 03/16/2019 VAN GONZALEZ MD Ot F17.210 NICOTINE DEPENDENCE, CIGARETTES, UNCOMPL 03/16/2019 VAN GONZALEZ MD, Ot F32 .9 MAJOR DEPRESSIVE DISORDER, SINGLE EPISOD 03/16/2019 VAN GONZALEZ MD, Ot F41 .9 ANXIETY DISORDER, UNSPECIFIED 03/16/2019 VAN GONZALEZ MD Ot I11 .0 HYPERTENSIVE HEART DISEASE WITH HEART FA 03/16/2019 VAN GONZALEZ MD, Ot I21.A1 MYOCARDIAL INFARCTION TYPE 2 03/16/2019 VAN GONZALEZ MD, Ot I27.20 PULMONARY HYPERTENSION, UNSPECIFIED 03/16/2019 VAN GONZALEZ MD, Ot I42 .9 CARDIOMYOPATHY, UNSPECIFIED 03/16/2019 VAN GONZALEZ MD Ot I50.31 ACUTE DIASTOLIC (CONGESTIVE) HEART FAILU 03/16/2019 VAN GONZALEZ MD, Ot J30 .2 OTHER SEASONAL ALLERGIC RHINITIS 03/16/2019 VAN GONZALEZ MD, Ot J44 .1 CHRONIC OBSTRUCTIVE PULMONARY DISEASE W 03/16/2019 VAN GONZALEZ MD Ot J96.21 ACUTE AND CHRONIC RESPIRATORY FAILURE [place] 03/16/2019 VAN GONZALEZ MD, Ot J96.22 ACUTE AND CHRONIC RESPIRATORY FAILURE [place] 03/16/2019 VAN GONZALEZ MD Ot R06.89 OTHER ABNORMALITIES OF BREATHING 03/16/2019 VAN GONZALEZ MD, Ot Z68.37 BODY MASS INDEX (BMI) 37.0-37.9, ADULT 03/16/2019 VAN GONZALEZ MD, Ot Z79.84 LONGTERM (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 OF ORAL HYPOGLYC 03/16/2019 VAN GONZALEZ MD, Ot Z91.19 PATIENT'S NONCOMPLIANCE W [facility] 03/16/2019 VAN GONZALEZ MD, Ot Z99.81 DEPENDENCE ON SUPPLEMENTAL OXYGEN 03/17/2019 VAN GONZALEZ MD, Ot E03 .9 HYPOTHYROIDISM, UNSPECIFIED 03/17/2019 VAN GONZALEZ MD, Ot E11 .9 TYPE 2 DIABETES MELLITUS WITHOUT COMPLIC 03/17/2019 VAN GONZALEZ MD, Ot E66 .9 OBESITY, UNSPECIFIED 03/17/2019 VAN GONZALEZ MD Ot E78.00 PURE HYPERCHOLESTEROLEMIA, UNSPECIFIED 03/17/2019 VAN GONZALEZ MD, Ot E83.52 HYPERCALCEMIA 03/17/2019 VAN GONZALEZ MD Ot E87 .2 ACIDOSIS 03/17/2019 VAN GONZALEZ MD Ot F17.210 NICOTINE DEPENDENCE, CIGARETTES, UNCOMPL 03/17/2019 VAN GONZALEZ MD Ot F32 .9 MAJOR DEPRESSIVE DISORDER, SINGLE EPISOD 03/17/2019 VAN GONZALEZ MD, Ot F41 .9 ANXIETY DISORDER, UNSPECIFIED 03/17/2019 VAN GONZALEZ MD Ot I11 .0 HYPERTENSIVE HEART DISEASE WITH HEART FA 03/17/2019 VAN GONZALEZ MD, Ot I21.A1 MYOCARDIAL INFARCTION TYPE 2 03/17/2019 VAN GONZALEZ MD, Ot I27.20 PULMONARY HYPERTENSION, UNSPECIFIED 03/17/2019 VAN GONZALEZ MD, Ot I42 .9 CARDIOMYOPATHY, UNSPECIFIED 03/17/2019 VAN GONZALEZ MD Ot I50.31 ACUTE DIASTOLIC (CONGESTIVE) HEART FAILU 03/17/2019 VAN GONZALEZ MD, Ot J30 .2 OTHER SEASONAL ALLERGIC RHINITIS 03/17/2019 VAN GONZALEZ MD, Ot J44 .1 CHRONIC OBSTRUCTIVE PULMONARY DISEASE W 03/17/2019 VAN GONZALEZ MD, Ot J96.21 ACUTE AND CHRONIC RESPIRATORY FAILURE [place] 03/17/2019 VAN GONZALEZ MD, Ot J96.22 ACUTE AND CHRONIC RESPIRATORY FAILURE [place] 03/17/2019 VAN GONZALEZ MD Ot R06.89 OTHER ABNORMALITIES OF BREATHING 03/17/2019 VAN GONZALEZ MD, Ot Z68.37 BODY MASS INDEX (BMI) 37.0-37.9, ADULT 03/17/2019 VAN GONZALEZ MD, Ot Z79.84 LONGTERM (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 OF ORAL HYPOGLYC 03/17/2019 VAN GONZALEZ MD, Ot Z91.19 PATIENT'S NONCOMPLIANCE W [facility] 03/17/2019 VAN GONZALEZ MD, Ot Z99.81 DEPENDENCE ON SUPPLEMENTAL OXYGEN 03/18/2019 VAN GONZALEZ MD, Ot E03 .9 HYPOTHYROIDISM, UNSPECIFIED 03/18/2019 VAN GONZALEZ MD, Ot E11 .9 TYPE 2 DIABETES MELLITUS WITHOUT COMPLIC 03/18/2019 VAN GONZALEZ MD, Ot E66 .9 OBESITY, UNSPECIFIED 03/18/2019 VAN GONZALEZ MD, Ot E78.00 PURE HYPERCHOLESTEROLEMIA, UNSPECIFIED 03/18/2019 VAN GONZALEZ MD, Ot E83.52 HYPERCALCEMIA 03/18/2019 VAN GONZALEZ MD Ot E87 .2 ACIDOSIS 03/18/2019 VAN GONZALEZ MD Ot F17.210 NICOTINE DEPENDENCE, CIGARETTES, UNCOMPL 03/18/2019 VAN GONZALEZ MD, Ot F32 .9 MAJOR DEPRESSIVE DISORDER, SINGLE EPISOD 03/18/2019 VAN GONZALEZ MD, Ot F41 .9 ANXIETY DISORDER, UNSPECIFIED 03/18/2019 VAN GONZALEZ MD Ot I11 .0 HYPERTENSIVE HEART DISEASE WITH HEART FA 03/18/2019 VAN GONZALEZ MD, Ot I21.A1 MYOCARDIAL INFARCTION TYPE 2 03/18/2019 VAN GONZALEZ MD, Ot I27.20 PULMONARY HYPERTENSION, UNSPECIFIED 03/18/2019 VAN GONZALEZ MD Ot I42 .9 CARDIOMYOPATHY, UNSPECIFIED 03/18/2019 VAN GONZALEZ MD, Ot I50.31 ACUTE DIASTOLIC (CONGESTIVE) HEART FAILU 03/18/2019 VAN GONZALEZ MD, Ot J30 .2 OTHER SEASONAL ALLERGIC RHINITIS 03/18/2019 AVN GONZALEZ MD, Ot J44 .1 CHRONIC OBSTRUCTIVE PULMONARY DISEASE W 03/18/2019 VAN GONZALEZ MD, Ot J96.21 ACUTE AND CHRONIC RESPIRATORY FAILURE [place] 03/18/2019 VAN GONZALEZ MD, Ot J96.22 ACUTE AND CHRONIC RESPIRATORY FAILURE [place] 03/18/2019 VAN GONZALEZ MD, Ot R06.89 OTHER ABNORMALITIES OF BREATHING 03/18/2019 VAN GONZALEZ MD, Ot Z68.37 BODY MASS INDEX (BMI) 37.0-37.9, ADULT 03/18/2019 VAN GONZALEZ MD, Ot 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 03/18/2019 VAN GONZALEZ MD, Ot Z91.19 PATIENT'S NONCOMPLIANCE W [facility] 03/18/2019 VAN GONZALEZ MD, Ot Z99.81 DEPENDENCE ON SUPPLEMENTAL OXYGEN 03/19/2019 VAN GONZALEZ MD, Ot E03 .9 HYPOTHYROIDISM, UNSPECIFIED 03/19/2019 VAN GONZALEZ MD, Ot E11 .9 TYPE 2 DIABETES MELLITUS WITHOUT COMPLIC 03/19/2019 VAN GONZALEZ MD, Ot E66 .9 OBESITY, UNSPECIFIED 03/19/2019 VAN GONZALEZ MD Ot E78.00 PURE HYPERCHOLESTEROLEMIA, UNSPECIFIED 03/19/2019 VAN GONZALEZ MD Ot E83.52 HYPERCALCEMIA 03/19/2019 VAN GONZALEZ MD Ot E87 .2 ACIDOSIS 03/19/2019 VAN GONZALEZ MD Ot F17.210 NICOTINE DEPENDENCE, CIGARETTES, UNCOMPL 03/19/2019 VAN GONZALEZ MD Ot F32 .9 MAJOR DEPRESSIVE DISORDER, SINGLE EPISOD 03/19/2019 VAN GONZALEZ MD, Ot F41 .9 ANXIETY DISORDER, UNSPECIFIED 03/19/2019 VAN GONZALEZ MD Ot I11 .0 HYPERTENSIVE HEART DISEASE WITH HEART FA 03/19/2019 VAN GONZALEZ MD, Ot I21.A1 MYOCARDIAL INFARCTION TYPE 2 03/19/2019 VAN GONZALEZ MD, Ot I27.20 PULMONARY HYPERTENSION, UNSPECIFIED 03/19/2019 VAN GONZALEZ MD Ot I42 .9 CARDIOMYOPATHY, UNSPECIFIED 03/19/2019 VAN GONZALEZ MD Ot I50.31 ACUTE DIASTOLIC (CONGESTIVE) HEART FAILU 03/19/2019 VAN GONZALEZ MD, Ot J30 .2 OTHER SEASONAL ALLERGIC RHINITIS 03/19/2019 VAN GONZALEZ MD, Ot J44 .1 CHRONIC OBSTRUCTIVE PULMONARY DISEASE W 03/19/2019 VAN GONZALEZ MD, Ot J96.21 ACUTE AND CHRONIC RESPIRATORY FAILURE [place] 03/19/2019 VAN GONZALEZ MD, Ot J96.22 ACUTE AND CHRONIC RESPIRATORY FAILURE [place] 03/19/2019 VAN GONZALEZ MD Ot R06.89 OTHER ABNORMALITIES OF BREATHING 03/19/2019 VAN GONZALEZ MD, Ot Z68.37 BODY MASS INDEX (BMI) 37.0-37.9, ADULT 03/19/2019 VAN GONZALEZ MD, Ot Z79.84 LONGTERM (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 OF ORAL HYPOGLYC 03/19/2019 VAN GONZALEZ MD, Ot Z91.19 PATIENT'S NONCOMPLIANCE W [facility] 03/19/2019 VAN GONZALEZ MD, Ot Z99.81 DEPENDENCE ON SUPPLEMENTAL OXYGEN 03/20/2019 VAN GONZALEZ MD, Ot E03 .9 HYPOTHYROIDISM, UNSPECIFIED 03/20/2019 VAN GONZALEZ MD, Ot E11 .9 TYPE 2 DIABETES MELLITUS WITHOUT COMPLIC 03/20/2019 VAN GONZALEZ MD, Ot E66 .9 OBESITY, UNSPECIFIED 03/20/2019 VAN GONZALEZ MD, Ot E78.00 PURE HYPERCHOLESTEROLEMIA, UNSPECIFIED 03/20/2019 VAN GONZALEZ MD, Ot E83.52 HYPERCALCEMIA 03/20/2019 VAN GONZALEZ MD Ot E87 .2 ACIDOSIS 03/20/2019 VAN GONZALEZ MD, Ot F17.210 NICOTINE DEPENDENCE, CIGARETTES, UNCOMPL 03/20/2019 VAN GONZALEZ MD, Ot F32 .9 MAJOR DEPRESSIVE DISORDER, SINGLE EPISOD 03/20/2019 VAN GONZALEZ MD, Ot F41 .9 ANXIETY DISORDER, UNSPECIFIED 03/20/2019 VAN GONZALEZ MD, Ot I11 .0 HYPERTENSIVE HEART DISEASE WITH HEART FA 03/20/2019 VAN GONZALEZ MD, Ot I21.A1 MYOCARDIAL INFARCTION TYPE 2 03/20/2019 VAN GONZALEZ MD, Ot I27.20 PULMONARY HYPERTENSION, UNSPECIFIED 03/20/2019 VAN GONZALEZ MD, Ot I42 .9 CARDIOMYOPATHY, UNSPECIFIED 03/20/2019 VAN GONZALEZ MD, Ot I50.31 ACUTE DIASTOLIC (CONGESTIVE) HEART FAILU 03/20/2019 VAN GONZALEZ MD, Ot J30 .2 OTHER SEASONAL ALLERGIC RHINITIS 03/20/2019 VAN GONZALEZ MD, Ot J44 .1 CHRONIC OBSTRUCTIVE PULMONARY DISEASE W 03/20/2019 VAN GONZALEZ MD, Ot J96.21 ACUTE AND CHRONIC RESPIRATORY FAILURE [place] 03/20/2019 VAN GONZALEZ MD, Ot J96.22 ACUTE AND CHRONIC RESPIRATORY FAILURE [place] 03/20/2019 VAN GONZALEZ MD, Ot R06.89 OTHER ABNORMALITIES OF BREATHING 03/20/2019 VAN GONZALEZ MD, Ot Z68.37 BODY MASS INDEX (BMI) 37.0-37.9, ADULT 03/20/2019 VAN GONZALEZ MD, Ot 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 03/20/2019 VAN GONZALEZ MD, Ot Z91.19 PATIENT'S NONCOMPLIANCE W [facility] 03/20/2019 VAN GONZALEZ MD, Ot Z99.81 DEPENDENCE ON SUPPLEMENTAL OXYGEN 03/20/2019 VAN GONZALEZ MD, Ot E03 .9 HYPOTHYROIDISM, UNSPECIFIED 03/20/2019 VAN GONZALEZ MD, Ot E11 .9 TYPE 2 DIABETES MELLITUS WITHOUT COMPLIC 03/20/2019 VAN GONZALEZ MD, Ot E66 .9 OBESITY, UNSPECIFIED 03/20/2019 VAN GONZALEZ MD, Ot E78.00 PURE HYPERCHOLESTEROLEMIA, UNSPECIFIED 03/20/2019 VAN GONZALEZ MD, Ot E83.52 HYPERCALCEMIA 03/20/2019 VAN GONZALEZ MD Ot E87 .2 ACIDOSIS 03/20/2019 VAN GONZALEZ MD Ot F17.210 NICOTINE DEPENDENCE, CIGARETTES, UNCOMPL 03/20/2019 VAN GONZALEZ MD, Ot F32 .9 MAJOR DEPRESSIVE DISORDER, SINGLE EPISOD 03/20/2019 VAN GONZALEZ MD, Ot F41 .9 ANXIETY DISORDER, UNSPECIFIED 03/20/2019 VAN GONZALEZ MD, Ot I11 .0 HYPERTENSIVE HEART DISEASE WITH HEART FA 03/20/2019 VAN GONZALEZ MD, Ot I21.A1 MYOCARDIAL INFARCTION TYPE 2 03/20/2019 VAN GONZALEZ MD, Ot I27.20 PULMONARY HYPERTENSION, UNSPECIFIED 03/20/2019 VAN GONZALEZ MD, Ot I42 .9 CARDIOMYOPATHY, UNSPECIFIED 03/20/2019 VAN GONZALEZ MD Ot I50.31 ACUTE DIASTOLIC (CONGESTIVE) HEART FAILU 03/20/2019 VAN GONZALEZ MD, Ot J30 .2 OTHER SEASONAL ALLERGIC RHINITIS 03/20/2019 VAN GONZALEZ MD, Ot J44 .1 CHRONIC OBSTRUCTIVE PULMONARY DISEASE W 03/20/2019 VAN GONZALEZ MD, Ot J96.21 ACUTE AND CHRONIC RESPIRATORY FAILURE [place] 03/20/2019 VAN GONZALEZ MD, Ot J96.22 ACUTE AND CHRONIC RESPIRATORY FAILURE [place] 03/20/2019 VAN GONZALEZ MD Ot R06.89 OTHER ABNORMALITIES OF BREATHING 03/20/2019 VAN GONZALEZ MD, Ot Z68.37 BODY MASS INDEX (BMI) 37.0-37.9, ADULT 03/20/2019 VAN GONZALEZ MD, Ot Z79.84 LONGTERM (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 OF ORAL HYPOGLYC 03/20/2019 VAN GONZALEZ MD, Ot Z91.19 PATIENT'S NONCOMPLIANCE W [facility] 03/20/2019 VAN GONZALEZ MD, Ot Z99.81 DEPENDENCE ON SUPPLEMENTAL OXYGEN 03/20/2019 VAN GONZALEZ MD Ot E03 .9 HYPOTHYROIDISM, UNSPECIFIED 03/20/2019 VAN GONZALEZ MD Ot E11 .9 TYPE 2 DIABETES MELLITUS WITHOUT COMPLIC 03/20/2019 VAN GONZALEZ MD Ot 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 03/20/2019 VAN GONZALEZ MD Ot E78.00 PURE HYPERCHOLESTEROLEMIA, UNSPECIFIED 03/20/2019 VAN GONZALEZ MD, Ot E78 .5 HYPERLIPIDEMIA, UNSPECIFIED 03/20/2019 VAN GONZALEZ MD Ot E83.52 HYPERCALCEMIA 03/20/2019 VAN GONZALEZ MD Ot E87 .2 ACIDOSIS 03/20/2019 VAN GONZALEZ MD Ot F17.210 NICOTINE DEPENDENCE, CIGARETTES, UNCOMPL 03/20/2019 VAN GONZALEZ MD Ot F32 .9 MAJOR DEPRESSIVE DISORDER, SINGLE EPISOD 03/20/2019 VAN GONZALEZ MD, Ot F41 .9 ANXIETY DISORDER, UNSPECIFIED 03/20/2019 VAN GONZALEZ MD, Ot I11 .0 HYPERTENSIVE HEART DISEASE WITH HEART FA 03/20/2019 VAN GONZALEZ MD, Ot I21.A1 MYOCARDIAL INFARCTION TYPE 2 03/20/2019 VAN GONZALEZ MD, Ot I25.10 ATHSCL HEART DISEASE OF [place] CORONARY 03/20/2019 VAN GONZALEZ MD, Ot I27.20 PULMONARY HYPERTENSION, UNSPECIFIED 03/20/2019 VAN GONZALEZ MD, Ot I42 .9 CARDIOMYOPATHY, UNSPECIFIED 03/20/2019 VAN GONZALEZ MD, Ot I50.31 ACUTE DIASTOLIC (CONGESTIVE) HEART FAILU 03/20/2019 VAN GONZALEZ MD, Ot J30 .2 OTHER SEASONAL ALLERGIC RHINITIS 03/20/2019 VAN GONZALEZ MD, Ot J44 .1 CHRONIC OBSTRUCTIVE PULMONARY DISEASE W 03/20/2019 VAN GONZALEZ MD, Ot J96.21 ACUTE AND CHRONIC RESPIRATORY FAILURE WI 03/20/2019 VAN GONZALEZ MD, Ot J96.22 ACUTE AND CHRONIC RESPIRATORY FAILURE WI 03/20/2019 VAN GONZALEZ MD, Ot J98.11 ATELECTASIS 03/20/2019 VAN GONZALEZ MD, Ot Z68.37 BODY MASS INDEX (BMI) 37.0-37.9, ADULT 03/20/2019 VAN GONZALEZ MD, Ot Z79.84 LONGTERM (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 OF ORAL HYPOGLYC 03/20/2019 VAN GONZALEZ MD, Ot Z91.19 PATIENT'S NONCOMPLIANCE W [facility] 03/20/2019 VAN GONZALEZ MD, Ot Z99.81 DEPENDENCE ON SUPPLEMENTAL OXYGEN 03/20/2019 VAN GONZALEZ MD, Ot E03 .9 HYPOTHYROIDISM, UNSPECIFIED 03/20/2019 VAN GONZALEZ MD, Ot E11 .9 TYPE 2 DIABETES MELLITUS WITHOUT COMPLIC 03/20/2019 VAN GONZALEZ MD, Ot E66 .9 OBESITY, UNSPECIFIED 03/20/2019 VAN GONZALEZ MD Ot E78.00 PURE HYPERCHOLESTEROLEMIA, UNSPECIFIED 03/20/2019 LISA MD, VAN N Ot E83.52 HYPERCALCEMIA 03/20/2019 VAN GONZALEZ MD Ot E87 .2 ACIDOSIS 03/20/2019 VAN GONZALEZ MD Ot F17.210 NICOTINE DEPENDENCE, CIGARETTES, UNCOMPL 03/20/2019 VAN GONZALEZ MD Ot F32 .9 MAJOR DEPRESSIVE DISORDER, SINGLE EPISOD 03/20/2019 VAN GONZALEZ MD, Ot F41 .9 ANXIETY DISORDER, UNSPECIFIED 03/20/2019 VAN GONZALEZ MD Ot I11 .0 HYPERTENSIVE HEART DISEASE WITH HEART FA 03/20/2019 VAN GONZALEZ MD, Ot I21.A1 MYOCARDIAL INFARCTION TYPE 2 03/20/2019 VAN GONZALEZ MD Ot I27.20 PULMONARY HYPERTENSION, UNSPECIFIED 03/20/2019 VAN GONZALEZ MD Ot I42 .9 CARDIOMYOPATHY, UNSPECIFIED 03/20/2019 VAN GONZALEZ MD Ot I50.31 ACUTE DIASTOLIC (CONGESTIVE) HEART FAILU 03/20/2019 VAN GONZALEZ MD, Ot J30 .2 OTHER SEASONAL ALLERGIC RHINITIS 03/20/2019 VAN GONZALEZ MD, Ot J44 .1 CHRONIC OBSTRUCTIVE PULMONARY DISEASE W 03/20/2019 VAN GONZALEZ MD, Ot J96.21 ACUTE AND CHRONIC RESPIRATORY FAILURE WI 03/20/2019 VAN GONZALEZ MD, Ot J96.22 ACUTE AND CHRONIC RESPIRATORY FAILURE WI 03/20/2019 VAN GONZALEZ MD Ot R06.89 OTHER ABNORMALITIES OF BREATHING 03/20/2019 VAN GONZALEZ MD Ot Z68.37 BODY MASS INDEX (BMI) 37.0-37.9, ADULT 03/20/2019 VAN GONZALEZ MD Ot Z79.84 LONGTERM (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 OF ORAL HYPOGLYC 03/20/2019 VAN GONZALEZ MD Ot Z91.19 PATIENT'S NONCOMPLIANCE W [facility] 03/20/2019 VAN GONZALEZ MD, Ot Z99.81 DEPENDENCE ON SUPPLEMENTAL OXYGEN 07/10/2019 BERTRAM DOWNING APRN Ot J15.212 PNEUMONIA DUE TO METHICILLIN RESISTANT S 07/10/2019 BERTRAM DOWNING APRN Ot J44.9 CHRONIC OBSTRUCTIVE PULMONARY DISEASE, U 07/10/2019 BERTRAM DOWNING APRN, Ot R91.8 OTHER NONSPECIFIC ABNORMAL FINDING OF CHAU 07/20/2019 BAZZI DO, CLAIRE Ot E03.9 HYPOTHYROIDISM, UNSPECIFIED 07/20/2019 BAZZI DO, CLAIRE Ot E11.65 TYPE 2 DIABETES MELLITUS WITH HYPERGLYCE 07/20/2019 BAZZI DO, CLAIRE Ot E66.9 OBESITY, UNSPECIFIED 07/20/2019 BAZZI DO, CLAIRE Ot E78.00 PURE HYPERCHOLESTEROLEMIA, UNSPECIFIED 07/20/2019 BAZZI DO, CLAIRE Ot 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 07/20/2019 BAZZI DO, CLAIRE Ot E87.5 HYPERKALEMIA 07/20/2019 BAZZI DO, CLAIRE Ot F32.9 MAJOR DEPRESSIVE DISORDER, SINGLE EPISOD 07/20/2019 BAZZI DO, CLAIRE Ot F41.9 ANXIETY DISORDER, UNSPECIFIED 07/20/2019 BAZZI DO, CLAIRE Ot I10 ESSENTIAL (PRIMARY) HYPERTENSION 07/20/2019 BAZZI DO, CLAIRE Ot J18.1 LOBAR PNEUMONIA, UNSPECIFIED ORGANISM 07/20/2019 BAZZI DO, CLAIRE Ot J20.9 ACUTE BRONCHITIS, UNSPECIFIED 07/20/2019 BAZZI DO, CLAIRE Ot J43.9 EMPHYSEMA, UNSPECIFIED 07/20/2019 BAZZI DO, CLAIRE Ot J96.22 ACUTE AND CHRONIC RESPIRATORY FAILURE WI 07/20/2019 BAZZI DO, CLAIRE Ot T38.0X 5A ADVERSE EFFECT OF GLUCOCORT/SYNTH ANALOG 07/20/2019 BAZZI DO, CLAIRE Ot Z68.34 BODY MASS INDEX (BMI) 34.0-34.9, ADULT 07/21/2019 BAZZI DO, CLAIRE Ot E03.9 HYPOTHYROIDISM, UNSPECIFIED 07/21/2019 BAZZI DO, CLAIRE Ot E11.65 TYPE 2 DIABETES MELLITUS WITH HYPERGLYCE 07/21/2019 BAZZI DO, CLAIRE Ot E66.9 OBESITY, UNSPECIFIED 07/21/2019 BAZZI DO, CLAIRE Ot E78.00 PURE HYPERCHOLESTEROLEMIA, UNSPECIFIED 07/21/2019 BAZZI DO, CLAIRE Ot 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 07/21/2019 BAZZI DO, CLAIRE Ot E87.5 HYPERKALEMIA 07/21/2019 BAZZI DO, CLAIRE Ot F32.9 MAJOR DEPRESSIVE DISORDER, SINGLE EPISOD 07/21/2019 BAZZI DO, CLAIRE Ot F41.9 ANXIETY DISORDER, UNSPECIFIED 07/21/2019 BAZZI DO, CLAIRE Ot I10 ESSENTIAL (PRIMARY) HYPERTENSION 07/21/2019 BAZZI DO, CLAIRE Ot J18.1 LOBAR PNEUMONIA, UNSPECIFIED ORGANISM 07/21/2019 BAZZI DO, CLAIRE Ot J20.9 ACUTE BRONCHITIS, UNSPECIFIED 07/21/2019 BAZZI DO, CLAIRE Ot J43.9 EMPHYSEMA, UNSPECIFIED 07/21/2019 BAZZI DO, CLAIRE Ot J96.22 ACUTE AND CHRONIC RESPIRATORY FAILURE WI 07/21/2019 BAZZI DO, CLAIRE Ot T38.0X 5A ADVERSE EFFECT OF GLUCOCORT/SYNTH ANALOG 07/21/2019 BAZZI DO, CLAIRE Ot Z68.34 BODY MASS INDEX (BMI) 34.0-34.9, ADULT 07/23/2019 BAZZI DO, CLAIRE Ot E03.9 HYPOTHYROIDISM, UNSPECIFIED 07/23/2019 BAZZI DO, CLAIRE Ot E11.65 TYPE 2 DIABETES MELLITUS WITH HYPERGLYCE 07/23/2019 BAZZI DO, CLAIRE Ot E66.9 OBESITY, UNSPECIFIED 07/23/2019 BAZZI DO, CLAIRE Ot E78.00 PURE HYPERCHOLESTEROLEMIA, UNSPECIFIED 07/23/2019 BAZZI DO, CLAIRE Ot 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 07/23/2019 BAZZI DO, CLAIRE Ot E87.5 HYPERKALEMIA 07/23/2019 BAZZI DO, CLAIRE Ot F32.9 MAJOR DEPRESSIVE DISORDER, SINGLE EPISOD 07/23/2019 BAZZI DO, CLAIRE Ot F41.9 ANXIETY DISORDER, UNSPECIFIED 07/23/2019 BAZZI DO, CLAIRE Ot I10 ESSENTIAL (PRIMARY) HYPERTENSION 07/23/2019 BAZZI DO, CLAIRE Ot J18.1 LOBAR PNEUMONIA, UNSPECIFIED ORGANISM 07/23/2019 BAZZI DO, CLAIRE Ot J20.9 ACUTE BRONCHITIS, UNSPECIFIED 07/23/2019 BAZZI DO, CLARIE Ot J43.9 EMPHYSEMA, UNSPECIFIED 07/23/2019 BAZZI DO, CLAIRE Ot J96.22 ACUTE AND CHRONIC RESPIRATORY FAILURE WI 07/23/2019 BAZZI DO, CLAIRE Ot T38.0X 5A ADVERSE EFFECT OF GLUCOCORT/SYNTH ANALOG 07/23/2019 BAZZI DO, CLAIRE Ot Z68.34 BODY MASS INDEX (BMI) 34.0-34.9, ADULT 07/23/2019 BAZZI DO, CLAIRE Ot E03.9 HYPOTHYROIDISM, UNSPECIFIED 07/23/2019 BAZZI DO, CLAIRE Ot E11.65 TYPE 2 DIABETES MELLITUS WITH HYPERGLYCE 07/23/2019 BAZZI DO, CLAIRE Ot E66.9 OBESITY, UNSPECIFIED 07/23/2019 BAZZI DO, CLAIRE Ot E78.00 PURE HYPERCHOLESTEROLEMIA, UNSPECIFIED 07/23/2019 BAZZI DO, CLAIRE Ot 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 07/23/2019 BAZZI DO, CLAIRE Ot E87.5 HYPERKALEMIA 07/23/2019 BAZZI DO, CLAIRE Ot F32.9 MAJOR DEPRESSIVE DISORDER, SINGLE EPISOD 07/23/2019 BAZZI DO, CLAIRE Ot F41.9 ANXIETY DISORDER, UNSPECIFIED 07/23/2019 BAZZI DO, CLAIRE Ot I10 ESSENTIAL (PRIMARY) HYPERTENSION 07/23/2019 BAZZI DO, CLAIRE Ot J18.1 LOBAR PNEUMONIA, UNSPECIFIED ORGANISM 07/23/2019 BAZZI DO, CLAIRE Ot J20.9 ACUTE BRONCHITIS, UNSPECIFIED 07/23/2019 BAZZI DO, CLAIRE Ot J43.9 EMPHYSEMA, UNSPECIFIED 07/23/2019 BAZZI DO, CLAIRE Ot J96.22 ACUTE AND CHRONIC RESPIRATORY FAILURE WI 07/23/2019 BAZZI DO, CLAIRE Ot T38.0X 5A ADVERSE EFFECT OF GLUCOCORT/SYNTH ANALOG 07/23/2019 BAZZI DO, CLAIRE Ot Z68.34 BODY MASS INDEX (BMI) 34.0-34.9, ADULT 08/24/2019 DEWAYNE PETER DO Ot R68.84 JAW PAIN 08/25/2019 DAMARI LOONEY, AJ Guadarrama Ot E03. 9 HYPOTHYROIDISM, UNSPECIFIED 08/25/2019 DAMARI LOONEY, AJ Guadarrama Ot E11. 9 TYPE 2 DIABETES MELLITUS WITHOUT COMPLIC 08/25/2019 DAMARI LOONEY, AJ Guadarrama Ot E78. 00 PURE HYPERCHOLESTEROLEMIA, UNSPECIFIED 08/25/2019 DAMARI LOONEY, AJ Guadarrama Ot F32. 9 MAJOR DEPRESSIVE DISORDER, SINGLE EPISOD 08/25/2019 AJ WETZEL MD J Ot F41. 9 ANXIETY DISORDER, UNSPECIFIED 08/25/2019 DAMARI LOONEY, AJ J Ot I10 ESSENTIAL (PRIMARY) HYPERTENSION 08/25/2019 AJ WETZEL MD Ot J44. 9 CHRONIC OBSTRUCTIVE PULMONARY DISEASE, U 08/25/2019 AJ WETZEL MD Ot K11. 21 ACUTE SIALOADENITIS 08/25/2019 AJ WETZEL MD Ot R22. 0 LOCALIZED SWELLING, MASS AND LUMP, HEAD 08/25/2019 AJ WETZEL MD Ot Z79. 51 LONGTERM (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 OF INHALED STERO 08/25/2019 AJ WETZEL MD Ot Z79. 84 LONGTERM (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 OF ORAL HYPOGLYC 08/25/2019 AJ WETZEL MD Ot Z82. 49 FAMILY HX OF ISCHEM HEART DIS AND OTH DI 09/15/2019 ROSE MARY DO, CLAIRE Ot A41.9 SEPSIS, UNSPECIFIED ORGANISM 09/15/2019 BAZZI DO, CLAIRE Ot E03.9 HYPOTHYROIDISM, UNSPECIFIED 09/15/2019 BAZZI DO, CLAIRE Ot E11.9 TYPE 2 DIABETES MELLITUS WITHOUT COMPLIC 09/15/2019 BAZZI DO, CLAIRE Ot E78.00 PURE HYPERCHOLESTEROLEMIA, UNSPECIFIED 09/15/2019 BAZZI DO, CLAIRE Ot E87.5 HYPERKALEMIA 09/15/2019 BAZZI DO, CLAIRE Ot F17.21 0 NICOTINE DEPENDENCE, CIGARETTES, UNCOMPL 09/15/2019 BAZZI DO, CLAIRE Ot F32.9 MAJOR DEPRESSIVE DISORDER, SINGLE EPISOD 09/15/2019 BAZZI DO, CLAIRE Ot F41.9 ANXIETY DISORDER, UNSPECIFIED 09/15/2019 BAZZI DO, CLAIRE Ot G47.33 OBSTRUCTIVE SLEEP APNEA (ADULT) (PEDIATR 09/15/2019 BAZZI DO, CLAIRE Ot I10 ESSENTIAL (PRIMARY) HYPERTENSION 09/15/2019 BAZZI DO, CLAIRE Ot J18.9 PNEUMONIA, UNSPECIFIED ORGANISM 09/15/2019 BAZZI DO, CLAIRE Ot J30.2 OTHER SEASONAL ALLERGIC RHINITIS 09/15/2019 BAZZI DO, CLAIRE Ot J43.9 EMPHYSEMA, UNSPECIFIED 09/15/2019 BAZZI DO, CLAIRE Ot J96.21 ACUTE AND CHRONIC RESPIRATORY FAILURE WI 09/15/2019 BAZZI DO, CLAIRE Ot J96.22 ACUTE AND CHRONIC RESPIRATORY FAILURE WI 09/15/2019 BAZZI DO, CLAIRE Ot R65.21 SEVERE SEPSIS WITH SEPTIC SHOCK 09/15/2019 BAZZI DO, CLAIRE Ot Z79.84 LONGTERM (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 OF ORAL HYPOGLYC 09/15/2019 BAZZI DO, CLAIRE Ot Z99.81 DEPENDENCE ON SUPPLEMENTAL OXYGEN 09/15/2019 BAZZI DO, CLAIRE Ot A41.9 SEPSIS, UNSPECIFIED ORGANISM 09/15/2019 BAZZI DO, CLAIRE Ot E03.9 HYPOTHYROIDISM, UNSPECIFIED 09/15/2019 BAZZI DO, CLAIRE Ot E11.9 TYPE 2 DIABETES MELLITUS WITHOUT COMPLIC 09/15/2019 BAZZI DO, CLAIRE Ot E78.00 PURE HYPERCHOLESTEROLEMIA, UNSPECIFIED 09/15/2019 BAZZI DO, CLAIRE Ot E87.5 HYPERKALEMIA 09/15/2019 BAZZI DO, CLAIRE Ot F17.21 0 NICOTINE DEPENDENCE, CIGARETTES, UNCOMPL 09/15/2019 BAZZI DO, CLAIRE Ot F32.9 MAJOR DEPRESSIVE DISORDER, SINGLE EPISOD 09/15/2019 BAZZI DO, CLAIRE Ot F41.9 ANXIETY DISORDER, UNSPECIFIED 09/15/2019 BAZZI DO, CLAIRE Ot G47.33 OBSTRUCTIVE SLEEP APNEA (ADULT) (PEDIATR 09/15/2019 BAZZI DO, CLAIRE Ot I10 ESSENTIAL (PRIMARY) HYPERTENSION 09/15/2019 BAZZI DO, CLAIRE Ot J18.9 PNEUMONIA, UNSPECIFIED ORGANISM 09/15/2019 BAZZI DO, CLAIRE Ot J30.2 OTHER SEASONAL ALLERGIC RHINITIS 09/15/2019 BAZZI DO, CLAIRE Ot J43.9 EMPHYSEMA, UNSPECIFIED 09/15/2019 BAZZI DO, CLAIRE Ot J96.21 ACUTE AND CHRONIC RESPIRATORY FAILURE WI 09/15/2019 BAZZI DO, CLAIRE Ot J96.22 ACUTE AND CHRONIC RESPIRATORY FAILURE WI 09/15/2019 BAZZI DO, CLAIRE Ot R65.21 SEVERE SEPSIS WITH SEPTIC SHOCK 09/15/2019 BAZZI DO, CLAIRE Ot 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 09/15/2019 BAZZI DO, CLAIRE Ot Z99.81 DEPENDENCE ON SUPPLEMENTAL OXYGEN 09/16/2019 BAZZI DO, CLAIRE Ot A41.9 SEPSIS, UNSPECIFIED ORGANISM 09/16/2019 BAZZI DO, CLAIRE Ot E03.9 HYPOTHYROIDISM, UNSPECIFIED 09/16/2019 BAZZI DO, CLAIRE Ot E11.9 TYPE 2 DIABETES MELLITUS WITHOUT COMPLIC 09/16/2019 BAZZI DO, CLAIRE Ot E78.00 PURE HYPERCHOLESTEROLEMIA, UNSPECIFIED 09/16/2019 BAZZI DO, CLAIRE Ot E87.5 HYPERKALEMIA 09/16/2019 BAZZI DO, CLAIRE Ot F17.21 0 NICOTINE DEPENDENCE, CIGARETTES, UNCOMPL 09/16/2019 BAZZI DO, CLAIRE Ot F32.9 MAJOR DEPRESSIVE DISORDER, SINGLE EPISOD 09/16/2019 BAZZI DO, CLAIRE Ot F41.9 ANXIETY DISORDER, UNSPECIFIED 09/16/2019 BAZZI DO, CLAIRE Ot G47.33 OBSTRUCTIVE SLEEP APNEA (ADULT) (PEDIATR 09/16/2019 BAZZI DO, CLAIRE Ot I10 ESSENTIAL (PRIMARY) HYPERTENSION 09/16/2019 BAZZI DO, CLAIRE Ot J18.9 PNEUMONIA, UNSPECIFIED ORGANISM 09/16/2019 BAZZI DO, CLIARE Ot J30.2 OTHER SEASONAL ALLERGIC RHINITIS 09/16/2019 BAZZI DO, CLAIRE Ot J43.9 EMPHYSEMA, UNSPECIFIED 09/16/2019 BAZZI DO, CLAIRE Ot J96.21 ACUTE AND CHRONIC RESPIRATORY FAILURE WI 09/16/2019 BAZZI DO, CLAIRE Ot J96.22 ACUTE AND CHRONIC RESPIRATORY FAILURE WI 09/16/2019 BAZZI DO, CLAIRE Ot R65.21 SEVERE SEPSIS WITH SEPTIC SHOCK 09/16/2019 BAZZI DO, CLAIRE Ot 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 09/16/2019 BAZZI DO, CLAIRE Ot Z99.81 DEPENDENCE ON SUPPLEMENTAL OXYGEN 09/17/2019 BAZZI DO, CLAIRE Ot A41.9 SEPSIS, UNSPECIFIED ORGANISM 09/17/2019 BAZZI DO, CLAIRE Ot E03.9 HYPOTHYROIDISM, UNSPECIFIED 09/17/2019 BAZZI DO, CLAIRE Ot E11.9 TYPE 2 DIABETES MELLITUS WITHOUT COMPLIC 09/17/2019 BAZZI DO, CLAIRE Ot E78.00 PURE HYPERCHOLESTEROLEMIA, UNSPECIFIED 09/17/2019 BAZZI DO, CLAIRE Ot E87.5 HYPERKALEMIA 09/17/2019 BAZZI DO, CLAIRE Ot F17.21 0 NICOTINE DEPENDENCE, CIGARETTES, UNCOMPL 09/17/2019 BAZZI DO, CLAIRE Ot F32.9 MAJOR DEPRESSIVE DISORDER, SINGLE EPISOD 09/17/2019 BAZZI DO, CLAIRE Ot F41.9 ANXIETY DISORDER, UNSPECIFIED 09/17/2019 BAZZI DO, CLAIRE Ot G47.33 OBSTRUCTIVE SLEEP APNEA (ADULT) (PEDIATR 09/17/2019 BAZZI DO, CLAIRE Ot I10 ESSENTIAL (PRIMARY) HYPERTENSION 09/17/2019 BAZZI DO, CLAIRE Ot J18.9 PNEUMONIA, UNSPECIFIED ORGANISM 09/17/2019 BAZZI DO, CLAIRE Ot J30.2 OTHER SEASONAL ALLERGIC RHINITIS 09/17/2019 BAZZI DO, CLAIRE Ot J43.9 EMPHYSEMA, UNSPECIFIED 09/17/2019 BAZZI DO, CLAIRE Ot J96.21 ACUTE AND CHRONIC RESPIRATORY FAILURE WI 09/17/2019 BAZZI DO, CLAIRE Ot J96.22 ACUTE AND CHRONIC RESPIRATORY FAILURE WI 09/17/2019 BAZZI DO, CLAIRE Ot R65.21 SEVERE SEPSIS WITH SEPTIC SHOCK 09/17/2019 BAZZI DO, CLAIRE Ot 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 09/17/2019 BAZZI DO, CLAIRE Ot Z99.81 DEPENDENCE ON SUPPLEMENTAL OXYGEN 09/18/2019 BAZZI DO, CLAIRE Ot A41.9 SEPSIS, UNSPECIFIED ORGANISM 09/18/2019 BAZZI DO, CLAIRE Ot E03.9 HYPOTHYROIDISM, UNSPECIFIED 09/18/2019 BAZZI DO, CLAIRE Ot E11.9 TYPE 2 DIABETES MELLITUS WITHOUT COMPLIC 09/18/2019 BAZZI DO, CLAIRE Ot E78.00 PURE HYPERCHOLESTEROLEMIA, UNSPECIFIED 09/18/2019 BAZZI DO, CLAIRE Ot E87.5 HYPERKALEMIA 09/18/2019 BAZZI DO, CLAIRE Ot F17.21 0 NICOTINE DEPENDENCE, CIGARETTES, UNCOMPL 09/18/2019 BAZZI DO, CLAIRE Ot F32.9 MAJOR DEPRESSIVE DISORDER, SINGLE EPISOD 09/18/2019 BAZZI DO, CLAIRE Ot F41.9 ANXIETY DISORDER, UNSPECIFIED 09/18/2019 BAZZI DO, CLAIRE Ot G47.33 OBSTRUCTIVE SLEEP APNEA (ADULT) (PEDIATR 09/18/2019 BAZZI DO, CLAIRE Ot I10 ESSENTIAL (PRIMARY) HYPERTENSION 09/18/2019 BAZZI DO, CLAIRE Ot J18.9 PNEUMONIA, UNSPECIFIED ORGANISM 09/18/2019 BAZZI DO, CLAIRE Ot J30.2 OTHER SEASONAL ALLERGIC RHINITIS 09/18/2019 BAZZI DO, CLAIRE Ot J43.9 EMPHYSEMA, UNSPECIFIED 09/18/2019 BAZZI DO, CLAIRE Ot J96.21 ACUTE AND CHRONIC RESPIRATORY FAILURE WI 09/18/2019 BAZZI DO, CLAIRE Ot J96.22 ACUTE AND CHRONIC RESPIRATORY FAILURE WI 09/18/2019 BAZZI DO, CLAIRE Ot R65.21 SEVERE SEPSIS WITH SEPTIC SHOCK 09/18/2019 BAZZI DO, CLAIRE Ot Z79.84 LONGTERM (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 OF ORAL HYPOGLYC 09/18/2019 BAZZI DO, CLAIRE Ot Z99.81 DEPENDENCE ON SUPPLEMENTAL OXYGEN 09/18/2019 BAZZI DO, CLAIRE Ot A41.9 SEPSIS, UNSPECIFIED ORGANISM 09/18/2019 BAZZI DO, CLAIRE Ot E03.9 HYPOTHYROIDISM, UNSPECIFIED 09/18/2019 BAZZI DO, CLAIRE Ot E11.9 TYPE 2 DIABETES MELLITUS WITHOUT COMPLIC 09/18/2019 BAZZI DO, CLAIRE Ot E78.00 PURE HYPERCHOLESTEROLEMIA, UNSPECIFIED 09/18/2019 BAZZI DO, CLAIRE Ot E87.5 HYPERKALEMIA 09/18/2019 BAZZI DO, CLAIRE Ot F17.21 0 NICOTINE DEPENDENCE, CIGARETTES, UNCOMPL 09/18/2019 BAZZI DO, CLAIRE Ot F32.9 MAJOR DEPRESSIVE DISORDER, SINGLE EPISOD 09/18/2019 BAZZI DO, CLAIRE Ot F41.9 ANXIETY DISORDER, UNSPECIFIED 09/18/2019 BAZZI DO, CLAIRE Ot G47.33 OBSTRUCTIVE SLEEP APNEA (ADULT) (PEDIATR 09/18/2019 BAZZI DO, CLAIRE Ot I10 ESSENTIAL (PRIMARY) HYPERTENSION 09/18/2019 BAZZI DO, CLAIRE Ot J18.9 PNEUMONIA, UNSPECIFIED ORGANISM 09/18/2019 BAZZI DO, CLAIRE Ot J30.2 OTHER SEASONAL ALLERGIC RHINITIS 09/18/2019 BAZZI DO, CLAIRE Ot J43.9 EMPHYSEMA, UNSPECIFIED 09/18/2019 BAZZI DO, CLAIRE Ot J96.21 ACUTE AND CHRONIC RESPIRATORY FAILURE WI 09/18/2019 BAZZI DO, CLAIRE Ot J96.22 ACUTE AND CHRONIC RESPIRATORY FAILURE WI 09/18/2019 BAZZI DO, CLAIRE Ot R65.21 SEVERE SEPSIS WITH SEPTIC SHOCK 09/18/2019 BAZZI DO, CLAIRE Ot 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 09/18/2019 BAZZI DO, CLAIRE Ot Z99.81 DEPENDENCE ON SUPPLEMENTAL OXYGEN 09/18/2019 BAZZI DO, CLAIRE Ot A41.9 SEPSIS, UNSPECIFIED ORGANISM 09/18/2019 BAZZI DO, CLAIRE Ot E03.9 HYPOTHYROIDISM, UNSPECIFIED 09/18/2019 BAZZI DO, CLAIRE Ot E11.9 TYPE 2 DIABETES MELLITUS WITHOUT COMPLIC 09/18/2019 BAZZI DO, CLAIRE Ot E78.00 PURE HYPERCHOLESTEROLEMIA, UNSPECIFIED 09/18/2019 BAZZI DO, CLAIRE Ot E87.5 HYPERKALEMIA 09/18/2019 BAZZI DO, CLAIRE Ot F17.21 0 NICOTINE DEPENDENCE, CIGARETTES, UNCOMPL 09/18/2019 BAZZI DO, CLAIRE Ot F32.9 MAJOR DEPRESSIVE DISORDER, SINGLE EPISOD 09/18/2019 BAZZI DO, CLAIRE Ot F41.9 ANXIETY DISORDER, UNSPECIFIED 09/18/2019 BAZZI DO, CLAIRE Ot G47.33 OBSTRUCTIVE SLEEP APNEA (ADULT) (PEDIATR 09/18/2019 BAZZI DO, CLAIRE Ot I10 ESSENTIAL (PRIMARY) HYPERTENSION 09/18/2019 BAZZI DO, CLAIRE Ot J18.9 PNEUMONIA, UNSPECIFIED ORGANISM 09/18/2019 BAZZI DO, CLAIRE Ot J30.2 OTHER SEASONAL ALLERGIC RHINITIS 09/18/2019 BAZZI DO, CLAIRE Ot J43.9 EMPHYSEMA, UNSPECIFIED 09/18/2019 BAZZI DO, CLAIRE Ot J96.21 ACUTE AND CHRONIC RESPIRATORY FAILURE WI 09/18/2019 BAZZI DO, CLAIRE Ot J96.22 ACUTE AND CHRONIC RESPIRATORY FAILURE WI 09/18/2019 BAZZI DO, CLAIRE Ot R65.21 SEVERE SEPSIS WITH SEPTIC SHOCK 09/18/2019 BAZZI DO, CLAIRE Ot Z79.84 LONGTERM (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 OF ORAL HYPOGLYC 09/18/2019 BAZZI DO, CLAIRE Ot Z99.81 DEPENDENCE ON SUPPLEMENTAL OXYGEN 09/18/2019 BAZZI DO, CLAIRE Ot A41.9 SEPSIS, UNSPECIFIED ORGANISM 09/18/2019 BAZZI DO, CLAIRE Ot E03.9 HYPOTHYROIDISM, UNSPECIFIED 09/18/2019 BAZZI DO, CLAIRE Ot E11.9 TYPE 2 DIABETES MELLITUS WITHOUT COMPLIC 09/18/2019 BAZZI DO, CLAIRE Ot E78.00 PURE HYPERCHOLESTEROLEMIA, UNSPECIFIED 09/18/2019 BAZZI DO, CLAIRE Ot E87.5 HYPERKALEMIA 09/18/2019 BAZZI DO, CLAIRE Ot F17.21 0 NICOTINE DEPENDENCE, CIGARETTES, UNCOMPL 09/18/2019 BAZZI DO, CLAIRE Ot F32.9 MAJOR DEPRESSIVE DISORDER, SINGLE EPISOD 09/18/2019 BAZZI DO, CLAIRE Ot F41.9 ANXIETY DISORDER, UNSPECIFIED 09/18/2019 BAZZI DO, CLAIRE Ot G47.33 OBSTRUCTIVE SLEEP APNEA (ADULT) (PEDIATR 09/18/2019 BAZZI DO, CLAIRE Ot I10 ESSENTIAL (PRIMARY) HYPERTENSION 09/18/2019 BAZZI DO, CLAIRE Ot J18.9 PNEUMONIA, UNSPECIFIED ORGANISM 09/18/2019 BAZZI DO CLAIRE Ot J30.2 OTHER SEASONAL ALLERGIC RHINITIS 09/18/2019 BAZZI DO, CLAIRE Ot J43.9 EMPHYSEMA, UNSPECIFIED 09/18/2019 BAZZI DO, CLAIRE Ot J96.21 ACUTE AND CHRONIC RESPIRATORY FAILURE WI 09/18/2019 BAZZI DO, CLAIRE Ot J96.22 ACUTE AND CHRONIC RESPIRATORY FAILURE WI 09/18/2019 BAZZI DO, CLAIRE Ot R65.21 SEVERE SEPSIS WITH SEPTIC SHOCK 09/18/2019 BAZZI DO, CLAIRE Ot 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 09/18/2019 BAZZI DO CLAIRE Ot Z99.81 DEPENDENCE ON SUPPLEMENTAL OXYGEN Procedures Code Description Performed [place] [id number] ROUT INE VENIPUNCTURE 06/09/2012 [id number] A1C (IN-HOUSE) 06/09/2012 [id number] [facility] 06/09/2012 87506 TSH 06/09/2012 73439 CBC 06/09/2012 [id number] ROUT INE VENIPUNCTURE 10/06/2012 84799 A1C (IN-HOUSE) 10/06/2012 01775 CMP 10/06/2012 73356 TSH 10/06/2012 [id number] ROUT INE VENIPUNCTURE 04/01/2013 38845 A1C (IN-HOUSE) 04/01/2013 73124 LIPI D PANEL 04/01/2013 02780 CMP 04/01/2013 [id number] GF R CALC (RESULT ONLY) 04/01/2013 45292 TSH 04/01/2013 41985 ROUT INE VENIPUNCTURE 10/01/2013 62317 CMP 10/01/2013 30185 LIPI D PANEL 10/01/2013 57095 TSH 10/01/2013 79085 A1C (IN-HOUSE) 10/01/2013 59219 MICR O ALBUMIN-IN HOUSE 10/01/2013 00451 ROUT INE VENIPUNCTURE 05/03/2014 83838 CMP 05/03/2014 43101 LIPI D PANEL 05/03/2014 79857 TSH 05/03/2014 51726 A1C (IN-HOUSE) 05/03/20148F FOOT EXAM PERFORMED 05/03/2014 54855 OXIMETRY 07/26/2014 17452 XRAY CHEST 2 VIEW 07/28/2014 86208 OXIMETRY 07/28/2014 20010 OXIMETRY 07/30/2014 PULMONARY [facility] ALMAGUER 07/30/2014 50841 TSH 11/05/2014 00602 ROUT INE VENIPUNCTURE 11/05/2014 79937 MICR O ALBUMIN-IN HOUSE 11/05/2014 47264 A1C (IN-HOUSE) 11/05/20140867371 GF R CALC (RESULT ONLY) 11/05/2014 44485 CMP 11/05/2014 [id number] IN SERTION OF ENDOTRACHEAL AIRWAY INTO TR 10/31/2018 [id number] RE SPIRATORY VENTILATION, LESS THAN 24 CO 10/31/2018 [id number] IN SERTION OF ENDOTRACHEAL AIRWAY INTO TR 03/09/2019 [id number] RE SPIRATORY VENTILATION, 24- 96 CONSECUTI 03/09/2019 [id number] RE SPIRATORY VENTILATION, GREATER THAN 96 03/09/2019 [id number] ME ASURE OF CARDIAC SAMPL PRESSURE, L H 03/11/2019 [id number] FL UOROSCOPY OF MULT COR ART USING L OSM 03/11/2019 [id number] FL UOROSCOPY OF LEFT HEART USING LOW OSMO 03/11/2019 [id number] IN SERTION OF ENDOTRACHEAL AIRWAY INTO TR 09/11/2019 [id number] RE SPIRATORY VENTILATION, 24- 96 CONSECUTI 09/11/2019 Results Test Result Range Thyroid [place] Profile - 06/08/16 16:25 TSH 3.060 uIU/mL 0.450-4.500 CBC With Differential/Platelet - 7 09:41 WBC 7.8 x10E3/uL 3.4-10.8 RBC 4.87 x10E6/uL 3.77-5.28 Hemoglobin 15.1 g/dL 11.1-15.9 Hematocrit 46.3 % 34.0-46.6 MCV 95 fL 79-97 MCH 31.0 pg 26.6-33.0 MCHC 32.6 g/dL 31.5-35.7 RDW 14.2 % 12.3-15.4 Platelets 263 x10E3/uL 150-379 Neutrophils 72 % Lymphs 22 % Monocytes 5 % Eos 1 % Basos 0 % Neutrophils (Absolute) 5.5 x10E3/uL 1.4- 7.0 Lymphs (Absolute) 1.7 x10E3/uL 0.7-3.1 Monocytes(Absolute) 0.4 x10E3/uL 0.1-0.9 Eos (Absolute) 0.1 x10E3/uL 0.0-0.4 Baso (Absolute) 0.0 x10E3/uL 0.0-0.2 Immature Granulocytes 0 % Immature Grans (Abs) 0.0 x10E3/uL 0.0-0. 1 Comp. Metabolic Panel (14) - 03/15/17 09 :41 Glucose, Serum 186 mg/dL 65-99 BUN 11 [...] LDL Cholesterol Calc 114 mg/dL 0-99 Thyroid [place] Profile - 08/25/17 09:41 TSH 11.750 uIU/mL 0.450-4.500 Thyroxine (T4) Free, Direct, S - 7 09:41 T4,Free (Direct) 0.89 ng/dL 0.82-1.77 Thyroid Peroxidase (TPO) Ab - 03/15/17 0 9:41 Thyroid Peroxidase (TPO) Ab 24 IU/mL 0- 34 Interpretive Comment Comment CMP - 03/15/17 09:41 [...] 0 % NRG Neutrophils (Absolute) 5.5 x10E3/uL 1.4- 7.0 Lymphs (Absolute) 1.7 x10E3/uL 0.7-3.1 Monocytes(Absolute) 0.4 x10E3/uL 0.1-0.9 Eos (Absolute) 0.1 x10E3/uL 0.0-0.4 Baso (Absolute) 0.0 x10E3/uL 0.0-0.2 Immature Granulocytes 0 % NRG Immature Grans (Abs) 0.0 x10E3/uL 0.0-0. 1 THYROID ANALYZER - 03/15/17 09:41 TSH 11.750 uIU/mL 0.450-4.500 T4,Free (Direct) 0.89 ng/dL 0.82-1.77 Thyroid Peroxidase (TPO) Ab 24 IU/mL 0- 34 Interpretive Comment NRG TSH - 05/28/17 17:04 TSH 1.56 mIU/L NRG Complete blood count (CBC) with automate d white blood cell (WBC) differential - 11/25/17 17:30 Blood leukocytes automated count (number/volume) 9.0 10*3/uL 4.3-11.0 Blood erythrocytes automated count (number/volume) 4.66 10*6/uL 4.35-5.85 Venous blood hemoglobin measurement (mass/volume) 14.6 g/dL 11.5-16.0 Blood hematocrit (volume fraction) 46 % 35-52 Automated erythrocyte mean corpuscular volume 98 [ foz_us] 80-99 Automated erythrocyte mean corpuscular h emoglobin (mass per erythrocyte) 31 pg 25-34 Automated erythrocyte mean corpuscular h emoglobin concentration measurement (mass/volume) 32 g/dL 32-36 Automated erythrocyte distribution width ratio 14. 7 % 10.0- 14.5 Automated blood platelet count (count/volume) 206 10*3/uL [...] 10*3 1.0-4.0 Blood monocytes automated count (number/volume) 0. 5 10*3 0.0-1.0 Automated eosinophil count 0.1 10*3/uL 0 .0-0.3 Automated blood basophil count (count/volume) 0.0 10*3/uL 0.0-0.1 Comprehensive metabolic panel - 11/25/17 17:30 Serum or plasma sodium measurement (moles/volume) 138 mmol/L 135-145 Serum or plasma potassium measurement (moles/volume) 4.2 mmol/L 3.6-5.0 Serum or plasma chloride measurement (moles/volume) 96 mmol/L 98-107 Carbon dioxide 32 mmol/L 21-32 Serum or plasma anion gap determination (moles/volume) 10 mmol/L 5-14 Serum or plasma urea nitrogen measurement (mass/volume ) 8 mg/dL 7-18 Serum or plasma creatinine measurement (mass/volume) 0.91 mg/dL 0.60-1.30 Serum or plasma urea nitrogen/creatinine mass ratio 9 NRG Serum or plasma creatinine measurement w ith calculation of estimated glomerular filtration rate > NRG Serum or plasma glucose measurement (mass/volume) 232 mg/dL 70-105 Serum or plasma calcium measurement (mass/volume) 10.3 mg/dL 8.5-10.1 Serum or plasma total bilirubin measurement (mass/volu me) 0.4 mg/dL 0.1-1.0 Serum or plasma alkaline phosphatase moe surement (enzymatic activity/volume) 115 U/L 40-136 Serum or plasma aspartate aminotransfera se measurement (enzymatic activity/volume) 11 U/L 5-34 Serum or plasma alanine aminotransferase measurement (enzymatic activity/volume) 9 U/L 0-55 Serum or plasma protein measurement (mass/volume) 8.2 g/dL 6.4-8.2 Serum or plasma albumin measurement (mass/volume) 3.9 g/dL 3.2-4.5 Blood lactic acid measurement (moles/vol ume) - 11/25/17 17:30 Blood lactic acid measurement (moles/volume) 2.59 mmol/L 0.50-2.00 Serum or plasma troponin i.cardiac measu rement (mass/volume) - 11/25/17 17:30 Serum or plasma troponin i.cardiac measurement (mass/v olume) < ng/mL <0.30 Bacterial blood culture - 11/25/17 17:30 Bacterial blood culture NG NRG Influenza virus A and B antigen detectio n - 11/25/17 17:41 FLU RESULT NEGATIVE FOR INFLUENZA A AND B ANTIGENS BY [facility] NRG Arterial blood gas measurement - 8 17:44 Blood pCO2 62 mm[Hg] 35-45 Blood pO2 86 mm[Hg] 79-93 Arterial blood bicarbonate measurement (moles/volume) 35 mmol/L 23-27 Arterial blood base excess by calculation 9.6 mmol /L -2.5-2.5 Arterial blood oxygen saturation measurement 99 % 94-100 * Inhaled oxygen flow rate 40% NRG Arterial blood pH measurement with patient temperature correction 7.37 7.37-7.43 Arterial blood carbon dioxide, total measurement (mole s/volume) 37.0 mmol/L 21.0-31.0 Body site RT RADIAL NRG Assessment of wrist artery patency prior to arterial p uncture YES-POS NRG Setting of ventilation mode NO NR G Measurement of body temperature 98.0 NRG Bacterial blood culture - 11/25/17 18:20 Bacterial blood culture NG NRG Methicillin resistant Staphylococcus aur eus (MRSA) screening culture - 11/25/17 19:10 Methicillin resistant Staphylococcus aureus (MRSA) scr eening culture NEG NRG Serum or plasma lactate measurement (mol es/volume) - 11/25/17 19:35 Serum or plasma lactate measurement (moles/volume) 1.10 mmol/L 0.50-2.00 Sputum Gram stain - 11/25/17 21:00 Sputum Gram stain coccobacilli NRG Bacterial sputum culture - 11/25/17 21:0 0 FREE TEXT EXTERNAL SENSITIVITY REPORTED 11/27 15:35 NRG QUANTITY OF GROWTH Scant Growth NRG FREE TEXT ENTRY 3 PLUS NORMAL DEMARCO NRG Bacterial sputum culture [id number] [facility] Bacterial susceptibility panel - 8 21:00 Oxacillin susceptibility test by minimum inhibitory co ncentration <= NRG Gentamicin susceptibility test by minimum inhibitory c oncentration <= NRG Clindamycin susceptibility test by minimum inhibitory concentration <= NRG Erythromycin susceptibility test by minimum inhibitory concentration <= NRG Trimethoprim/sulfamethoxazole susceptibi lity test by minimum inhibitoryconcentration S NRG Vancomycin susceptibility test by minimum inhibitory c oncentration <= NRG Levofloxacin susceptibility test by minimum inhibitory concentration 0.5 NRG Rifampin susceptibility test by minimum inhibitory con centration <= NRG Tetracycline susceptibility test by minimum inhibitory concentration <= NRG Capillary blood glucose measurement by g lucometer (mass/volume) - 11/25/17 21:03 Capillary blood glucose measurement by glucometer (mas s/volume) 259 mg/dL 70-110 Complete blood count (CBC) with automate d white blood cell (WBC) differential - 11/26/17 02:58 Blood leukocytes automated count (number/volume) 7.6 10*3/uL 4.3-11.0 Blood erythrocytes automated count (number/volume) 4.46 10*6/uL 4.35-5.85 Venous blood hemoglobin measurement (mass/volume) 14.2 g/dL 11.5-16.0 Blood hematocrit (volume fraction) 45 % 35-52 Automated erythrocyte mean corpuscular volume 100 [foz_us] 80-99 Automated erythrocyte mean corpuscular h emoglobin (mass per erythrocyte) 32 pg 25-34 Automated erythrocyte mean corpuscular h emoglobin concentration measurement (mass/volume) 32 g/dL 32-36 Automated erythrocyte distribution width ratio 14. 8 % 10.0- 14.5 Automated blood platelet count (count/volume) 207 10*3/uL [...] 10*3 1.0-4.0 Blood monocytes automated count (number/volume) 0. 0 10*3 0.0-1.0 Automated eosinophil count 0.0 10*3/uL 0 .0-0.3 Automated blood basophil count (count/volume) 0.0 10*3/uL 0.0-0.1 Serum or plasma phosphate measurement (m ass/volume) - 11/26/17 02:58 Serum or plasma phosphate [...] 5-14 Serum or plasma urea nitrogen measurement (mass/volume ) 11 mg/dL 7-18 Serum or plasma creatinine measurement (mass/volume) 1.03 mg/dL 0.60-1.30 Serum or plasma urea nitrogen/creatinine mass ratio 11 NRG Serum or plasma creatinine measurement w ith calculation of estimated glomerular filtration rate 56 NRG Serum or plasma glucose measurement (mass/volume) 321 mg/dL 70-105 Serum or plasma calcium measurement (mass/volume) 10.2 mg/dL 8.5-10.1 Serum or plasma total bilirubin measurement (mass/volu me) 0.3 mg/dL 0.1-1.0 Serum or plasma alkaline phosphatase moe surement (enzymatic activity/volume) 110 U/L 40-136 Serum or plasma aspartate aminotransfera se measurement (enzymatic activity/volume) 9 U/L 5-34 Serum or plasma alanine aminotransferase measurement (enzymatic activity/volume) 8 U/L 0-55 Serum or plasma protein measurement (mass/volume) 8.1 g/dL 6.4-8.2 Serum or plasma albumin measurement (mass/volume) 3.7 g/dL 3.2-4.5 Capillary blood glucose measurement by g lucometer (mass/volume) - 11/26/17 05:46 Capillary blood glucose measurement by glucometer (mas s/volume) 270 mg/dL 70-110 Capillary blood glucose measurement by g lucometer (mass/volume) - 11/26/17 10:23 Capillary blood glucose measurement by glucometer (mas s/volume) 230 mg/dL 70-110 Capillary blood glucose measurement by g lucometer (mass/volume) - 11/26/17 16:33 Capillary blood glucose measurement by glucometer (mas s/volume) 337 mg/dL 70-110 Capillary blood glucose measurement by g lucometer (mass/volume) - 11/26/17 20:39 Capillary blood glucose measurement by glucometer (mas s/volume) 326 mg/dL 70-110 Capillary blood glucose measurement by g lucometer (mass/volume) - 11/27/17 05:02 Capillary blood glucose measurement by glucometer (mas s/volume) 231 mg/dL 70-110 Complete blood count (CBC) with automate d white blood cell (WBC) differential - 11/27/17 05:35 Blood leukocytes automated count (number/volume) 10.9 10*3/uL 4.3-11.0 Blood erythrocytes automated count (number/volume) 4.28 10*6/uL 4.35-5.85 Venous blood hemoglobin measurement (mass/volume) 13.6 g/dL 11.5-16.0 Blood hematocrit (volume fraction) 43 % 35-52 Automated erythrocyte mean corpuscular volume 101 [foz_us] 80-99 Automated erythrocyte mean corpuscular h emoglobin (mass per erythrocyte) 32 pg 25-34 Automated erythrocyte mean corpuscular h emoglobin concentration measurement (mass/volume) 32 g/dL 32-36 Automated erythrocyte distribution width ratio 14. 3 % 10.0- 14.5 Automated blood platelet count (count/volume) 215 10*3/uL [...] 10*3 1.0-4.0 Blood monocytes automated count (number/volume) 0. 5 10*3 0.0-1.0 Automated eosinophil count 0.0 10*3/uL 0 .0-0.3 Automated blood basophil count (count/volume) 0.0 10*3/uL 0.0-0.1 Whole blood basic metabolic panel - 04/08 05:35 Serum or plasma sodium measurement (moles/volume) 140 mmol/L 135-145 Serum or plasma potassium measurement (moles/volume) 4.8 mmol/L 3.6-5.0 Serum or plasma chloride measurement (moles/volume) 97 mmol/L 98-107 Carbon dioxide 34 mmol/L 21-32 Serum or plasma anion gap determination (moles/volume) 9 mmol/L 5-14 Serum or plasma urea nitrogen measurement (mass/volume ) 18 mg/dL 7-18 Serum or plasma creatinine measurement (mass/volume) 0.79 mg/dL 0.60-1.30 Serum or plasma urea nitrogen/creatinine mass ratio 23 NRG Serum or plasma creatinine measurement w ith calculation of estimated glomerular filtration rate > NRG Serum or plasma glucose measurement (mass/volume) 220 mg/dL 70-105 Serum or plasma calcium measurement (mass/volume) 10.1 mg/dL 8.5-10.1 Capillary blood glucose measurement by g lucometer (mass/volume) - 11/27/17 11:39 Capillary blood glucose measurement by glucometer (mas s/volume) 317 mg/dL 70-110 MICROALBUMIN/CREATININE RATIO, URINE - 0 03/21/18 16:32 CREATININE, RANDOM URINE 173 mg/dL 20-32 0 MICROALBUMIN 2.8 mg/dL See Note: MICROALBUMIN/CREATININE RATIO, RANDOM URINE 16 mcg /mg creat <30 CBC - 06/11/18 15:15 WHITE BLOOD CELL COUNT 7.6 Thousand/uL 3 .8-10.8 RED BLOOD CELL COUNT 4.68 Million/uL 3.8 0-5.10 HEMOGLOBIN 14.1 g/dL 11.7-15.5 HEMATOCRIT 42.6 % 35.0-45.0 MCV 91.0 fL 80.0-100.0 MCH 30.1 pg 27.0-33.0 MCHC 33.1 g/dL 32.0-36.0 RDW 12.4 % 11.0-15.0 PLATELET COUNT 222 Thousand/uL 140-400 MPV 9.5 fL 7.5-12.5 ABSOLUTE NEUTROPHILS 5487 cells/uL 1500- 7800 ABSOLUTE LYMPHOCYTES 1702 cells/uL 850-3 900 ABSOLUTE MONOCYTES 319 cells/uL 200-950 ABSOLUTE EOSINOPHILS 68 cells/uL 15-500 ABSOLUTE BASOPHILS 23 cells/uL 0-200 NEUTROPHILS 72.2 % NRG LYMPHOCYTES 22.4 % NRG MONOCYTES 4.2 % NRG EOSINOPHILS 0.9 % NRG BASOPHILS 0.3 % NRG THYROID ANALYZER - 06/11/18 15:15 TSH 0.88 mIU/L NRG PT panel in platelet poor plasma by coag ulation assay - 09/22/18 16:35 Prothrombin time (PT) in platelet poor plasma by coagu lation assay 12.1 s 12.2-14.7 INR in platelet poor plasma or blood by coagulation as say 0.9 0.8-1.4 Activated partial thromboplastin time (a PTT) in platelet poor plasma bycoagulation assay - 09/22/18 16:35 Activated partial thromboplastin time (a PTT) in platelet poor plasma bycoagulation assay 32 s 24-35 Blood lactic acid measurement (moles/vol ume) - 09/22/18 16:35 Blood lactic acid measurement (moles/volume) 1.56 mmol/L 0.50-2.00 Complete blood count (CBC) with automate d white blood cell (WBC) differential - 09/22/18 16:35 Blood leukocytes automated count (number/volume) 9.8 10*3/uL 4.3-11.0 Blood erythrocytes automated count (number/volume) 4.51 10*6/uL 4.35-5.85 Venous blood hemoglobin measurement (mass/volume) 13.5 g/dL 11.5-16.0 Blood hematocrit (volume fraction) 42 % 35-52 Automated erythrocyte mean corpuscular volume 94 [ foz_us] 80-99 Automated erythrocyte mean corpuscular h emoglobin (mass per erythrocyte) 30 pg 25-34 Automated erythrocyte mean corpuscular h emoglobin concentration measurement (mass/volume) 32 g/dL 32-36 Automated erythrocyte distribution width ratio 15. 2 % 10.0- 14.5 Automated blood platelet count (count/volume) 169 10*3/uL [...] 10*3 1.0-4.0 Blood monocytes automated count (number/volume) 0. 7 10*3 0.0-1.0 Automated eosinophil count 0.0 10*3/uL 0 .0-0.3 Automated blood basophil count (count/volume) 0.0 10*3/uL 0.0-0.1 Influenza virus A and B antigen detectio n - 09/22/18 16:35 FLU RESULT NEGATIVE FOR INFLUENZA A AND B ANTIGENS BY [facility] Comprehensive metabolic panel - 09/22/18 16:35 Serum or plasma sodium measurement (moles/volume) 135 mmol/L 135-145 Serum or plasma potassium measurement (moles/volume) 4.0 mmol/L 3.6-5.0 Serum or plasma chloride measurement (moles/volume) 93 mmol/L 98-107 Carbon dioxide 33 mmol/L 21-32 Serum or plasma anion gap determination (moles/volume) 9 mmol/L 5-14 Serum or plasma urea nitrogen measurement (mass/volume ) 11 mg/dL 7-18 Serum or plasma creatinine measurement (mass/volume) 0.91 mg/dL 0.60-1.30 Serum or plasma urea nitrogen/creatinine mass ratio 12 NRG Serum or plasma creatinine measurement w ith calculation of estimated glomerular filtration rate > NRG Serum or plasma glucose measurement (mass/volume) 143 mg/dL 70-105 Serum or plasma calcium measurement (mass/volume) 10.4 mg/dL 8.5-10.1 Serum or plasma total bilirubin measurement (mass/volu me) 0.6 mg/dL 0.1-1.0 Serum or plasma alkaline phosphatase moe surement (enzymatic activity/volume) 101 U/L 40-136 Serum or plasma aspartate aminotransfera se measurement (enzymatic activity/volume) 16 U/L 5-34 Serum or plasma alanine aminotransferase measurement (enzymatic activity/volume) 9 U/L 0-55 Serum or plasma protein measurement (mass/volume) 8.1 g/dL 6.4-8.2 Serum or plasma albumin measurement (mass/volume) 3.8 g/dL 3.2-4.5 CALCIUM CORRECTED 10.6 mg/dL 8.5-10.1 Serum or plasma lithium measurement (mol es/volume) - 09/22/18 16:35 BNP level 38.7 pg/mL <100.0 Serum or plasma C reactive protein measu rement (mass/volume) - 09/22/18 16:35 Serum or plasma C reactive protein measurement (mass/v olume) 19.78 mg/dL 0.00-0.50 Bacterial blood culture - 09/22/18 16:35 QUANTITY OF GROWTH . NRG Bacterial blood culture SEE COMMEN NRG Bacterial blood culture - 09/22/18 17:00 Bacterial blood culture NG NRG Complete urinalysis with reflex to cultu re - 09/22/18 17:19 Urine color determination YELLOW NRG Urine clarity determination SLIGHTLY CLOUDY NRG Urine pH measurement by test strip 6 5-9 Specific gravity of urine by test strip 1.015 1.016-1.022 Urine protein assay by test strip, semi-quantitative 2+ NEGATIVE Urine glucose detection by automated test strip NE GATIVE NEGATIVE Erythrocytes detection in urine sediment by light micr oscopy 1+ NEGATIVE Urine ketones detection by automated test strip NE GATIVE NEGATIVE Urine nitrite detection by test strip NEGATIVE NEGATIVE Urine total bilirubin detection by test strip NEGA TIVE NEGATIVE Urine urobilinogen measurement by automated test strip (mass/volume) 4 mg/dL NORMAL Urine leukocyte esterase detection by dipstick NEG ATIVE NEGATIVE Automated urine sediment erythrocyte cou nt by microscopy (number/high power field) [HPF] NRG Automated urine sediment leukocyte count by microscopy (number/high power field) NONE NRG Bacteria detection in urine sediment by light microsco py NEGATIVE NRG Squamous epithelial cells detection in u rine sediment by light microscopy 2-5 NRG Crystals detection in urine sediment by light microsco py NONE NRG Casts detection in urine sediment by light microscopy NONE NRG Mucus detection in urine sediment by light microscopy NEGATIVE NRG Complete urinalysis with reflex to culture NO NRG Bacterial urine culture - 09/22/18 17:19 Bacterial urine culture SEE REPORT NRG COLONY COUNT . NRG CBC - 10/08/18 13:31 WHITE BLOOD CELL COUNT 12.6 Thousand/uL 3.8-10.8 RED BLOOD CELL COUNT 5.07 Million/uL 3.8 0-5.10 HEMOGLOBIN 15.4 g/dL 11.7-15.5 HEMATOCRIT 45.8 % 35.0-45.0 MCV 90.3 fL 80.0-100.0 MCH 30.4 pg 27.0-33.0 MCHC 33.6 g/dL 32.0-36.0 RDW 12.9 % 11.0-15.0 PLATELET COUNT 255 Thousand/uL 140-400 MPV 10.4 fL 7.5-12.5 ABSOLUTE NEUTROPHILS 81312 cells/uL 1500 -7800 ABSOLUTE LYMPHOCYTES 1121 cells/uL 850-3 900 ABSOLUTE MONOCYTES 743 cells/uL 200-950 ABSOLUTE EOSINOPHILS 38 cells/uL 15-500 ABSOLUTE BASOPHILS 25 cells/uL 0-200 NEUTROPHILS 84.7 % NRG LYMPHOCYTES 8.9 % NRG MONOCYTES 5.9 % NRG EOSINOPHILS 0.3 % NRG BASOPHILS 0.2 % NRG TSH - 10/08/18 13:31 TSH 0.41 mIU/L NRG Complete blood count (CBC) with automate d white blood cell (WBC) differential - 10/30/18 20:25 Blood leukocytes automated count (number/volume) 10.6 10*3/uL 4.3-11.0 Blood erythrocytes automated count (number/volume) 4.48 10*6/uL 4.35-5.85 Venous blood hemoglobin measurement (mass/volume) 13.4 g/dL 11.5-16.0 Blood hematocrit (volume fraction) 43 % 35-52 Automated erythrocyte mean corpuscular volume 96 [ foz_us] 80-99 Automated erythrocyte mean corpuscular h emoglobin (mass per erythrocyte) 30 pg 25-34 Automated erythrocyte mean corpuscular h emoglobin concentration measurement (mass/volume) 31 g/dL 32-36 Automated erythrocyte distribution width ratio 16. 3 % 10.0- 14.5 Automated blood platelet count (count/volume) 352 10*3/uL [...] 10*3 1.0-4.0 Blood monocytes automated count (number/volume) 0. 7 10*3 0.0-1.0 Automated eosinophil count 0.0 10*3/uL 0 .0-0.3 Automated blood basophil count (count/volume) 0.0 10*3/uL 0.0-0.1 Blood lactic acid measurement (moles/vol ume) - 10/30/18 20:25 Blood lactic acid measurement [...] 5-14 Serum or plasma urea nitrogen measurement (mass/volume ) 9 mg/dL 7-18 Serum or plasma creatinine measurement (mass/volume) 0.91 mg/dL 0.60-1.30 Serum or plasma urea nitrogen/creatinine mass ratio 10 NRG Serum or plasma creatinine measurement w ith calculation of estimated glomerular filtration rate > NRG Serum or plasma glucose measurement (mass/volume) 269 mg/dL 70-105 Serum or plasma calcium measurement (mass/volume) 10.4 mg/dL 8.5-10.1 Serum or plasma total bilirubin measurement (mass/volu me) 0.3 mg/dL 0.1-1.0 Serum or plasma alkaline phosphatase moe surement (enzymatic activity/volume) 131 U/L 40-136 Serum or plasma aspartate aminotransfera se measurement (enzymatic activity/volume) 12 U/L 5-34 Serum or plasma alanine aminotransferase measurement (enzymatic activity/volume) 11 U/L 0-55 Serum or plasma protein measurement (mass/volume) 7.9 g/dL 6.4-8.2 Serum or plasma albumin measurement (mass/volume) 3.4 g/dL 3.2-4.5 CALCIUM CORRECTED 10.9 mg/dL 8.5-10.1 Bacterial blood culture - 10/30/18 20:25 Bacterial blood culture NG NRG Bacterial blood culture - 10/30/18 20:40 Bacterial blood culture NG NRG Arterial blood gas measurement - 9 20:50 Blood pCO2 75 mm[Hg] 35-45 Blood pO2 90 mm[Hg] 79-93 Arterial blood bicarbonate measurement (moles/volume) 40 mmol/L 23-27 Arterial blood base excess by calculation 13.9 mmo l/L -2.5-2.5 Arterial blood oxygen saturation measurement 98 % 94-100 * Inhaled oxygen flow rate 50% BIPAP NR G Arterial blood pH measurement with patient temperature correction 7.35 7.37-7.43 Arterial blood carbon dioxide, total measurement (mole s/volume) 42.5 mmol/L 21.0-31.0 Body site LEFT RADIAL NRG Assessment of wrist artery patency prior to arterial p uncture POSITIVE NRG Setting of ventilation mode NO NR G Measurement of body temperature 97.8 NRG Complete blood count (CBC) with automate d white blood cell (WBC) differential - 10/31/18 03:30 Blood leukocytes automated count (number/volume) 8.1 10*3/uL 4.3-11.0 Blood erythrocytes automated count (number/volume) 4.56 10*6/uL 4.35-5.85 Venous blood hemoglobin measurement (mass/volume) 13.7 g/dL 11.5-16.0 Blood hematocrit (volume fraction) 44 % 35-52 Automated erythrocyte mean corpuscular volume 95 [ foz_us] 80-99 Automated erythrocyte mean corpuscular h emoglobin (mass per erythrocyte) 30 pg 25-34 Automated erythrocyte mean corpuscular h emoglobin concentration measurement (mass/volume) 32 g/dL 32-36 Automated erythrocyte distribution width ratio 16. 2 % 10.0- 14.5 Automated blood platelet count (count/volume) 242 10*3/uL 130-400 Automated blood platelet mean volume measurement 9.1 [foz_us] 7.4-10.4 Automated blood neutrophils/100 leukocytes 90 % 42-75 Automated blood lymphocytes/100 leukocytes 7 % 12-44 Blood monocytes/100 leukocytes 2 % 0-12 Automated blood eosinophils/100 leukocytes 2 % 0-10 Automated blood basophils/100 leukocytes 0 % 0-10 Blood neutrophils automated count (number/volume) 7.3 10*3 1.8-7.8 Blood lymphocytes automated count (number/volume) 0.6 10*3 1.0-4.0 Blood monocytes automated count (number/volume) 0. 1 10*3 0.0-1.0 Automated eosinophil count 0.2 10*3/uL 0 .0-0.3 Automated blood basophil count (count/volume) 0.0 10*3/uL 0.0-0.1 Comprehensive metabolic panel - 10/31/18 03:30 Serum or plasma sodium measurement (moles/volume) 139 mmol/L 135-145 Serum or plasma potassium measurement (moles/volume) 4.2 mmol/L 3.6-5.0 Serum or plasma chloride measurement (moles/volume) 92 mmol/L 98-107 Carbon dioxide 30 mmol/L 21-32 Serum or plasma anion gap determination (moles/volume) 17 mmol/L 5-14 Serum or plasma urea nitrogen measurement (mass/volume ) 9 mg/dL 7-18 Serum or plasma creatinine measurement (mass/volume) 0.85 mg/dL 0.60-1.30 Serum or plasma urea nitrogen/creatinine mass ratio 11 NRG Serum or plasma creatinine measurement w ith calculation of estimated glomerular filtration rate > NRG Serum or plasma glucose measurement (mass/volume) 301 mg/dL 70-105 Serum or plasma calcium measurement (mass/volume) 10.2 mg/dL 8.5-10.1 Serum or plasma total bilirubin measurement (mass/volu me) 0.3 mg/dL 0.1-1.0 Serum or plasma alkaline phosphatase moe surement (enzymatic activity/volume) 123 U/L 40-136 Serum or plasma aspartate aminotransfera se measurement (enzymatic activity/volume) 11 U/L 5-34 Serum or plasma alanine aminotransferase measurement (enzymatic activity/volume) 13 U/L 0-55 Serum or plasma protein measurement (mass/volume) 7.7 g/dL 6.4-8.2 Serum or plasma albumin measurement (mass/volume) 3.3 g/dL 3.2-4.5 CALCIUM CORRECTED 10.8 mg/dL 8.5-10.1 Blood manual differential performed dete ction - 10/31/18 03:30 Blood monocytes/100 leukocytes 3 % NRG Manual blood segmented neutrophils/100 leukocytes 91 % NRG Blood band neutrophils/100 leukocytes 2 % NRG Manual blood lymphocytes/100 leukocytes 4 % NRG Blood anisocytosis detection by light microscopy S LIGHT NRG Arterial blood gas measurement - 9 09:34 Blood pCO2 76 mm[Hg] 35-45 Blood pO2 68 mm[Hg] 79-93 Arterial blood bicarbonate measurement (moles/volume) 39 mmol/L 23-27 Arterial blood base excess by calculation 12.2 mmo l/L -2.5-2.5 Arterial blood oxygen saturation measurement 95 % 94-100 * Inhaled oxygen flow rate 45% NRG Arterial blood pH measurement with patient temperature correction 7.32 7.37-7.43 Arterial blood carbon dioxide, total measurement (mole s/volume) 41.2 mmol/L 21.0-31.0 Body site L RAD NRG Assessment of wrist artery patency prior to arterial p uncture YES-POS NRG Setting of ventilation mode NO NR G Measurement of body temperature 97.2 NRG Arterial blood gas measurement - 9 15:47 Blood pCO2 94 mm[Hg] 35-45 Blood pO2 96 mm[Hg] 79-93 Arterial blood bicarbonate measurement (moles/volume) 41 mmol/L 23-27 Arterial blood base excess by calculation 13.0 mmo l/L -2.5-2.5 Arterial blood oxygen saturation measurement 98 % 94-100 * Inhaled oxygen flow rate 80% NRG Arterial blood pH measurement with patient temperature correction 7.25 7.37-7.43 Arterial blood carbon dioxide, total measurement (mole s/volume) 43.4 mmol/L 21.0-31.0 Body site RR NRG Assessment of wrist artery patency prior to arterial p uncture YES-POS NRG Setting of ventilation mode YES NR G Measurement of body temperature 97.5 NRG Serum or plasma triglyceride measurement (mass/volume) - 10/31/18 16:08 Serum or plasma triglyceride measurement (mass/volume) 179 mg/dL <150 Complete blood count (CBC) with automate d white blood cell (WBC) differential - 03/09/19 00:02 Blood leukocytes automated count (number/volume) 7.4 10*3/uL 4.3-11.0 Blood erythrocytes automated count (number/volume) 5.73 10*6/uL 4.35-5.85 Venous blood hemoglobin measurement (mass/volume) 15.3 g/dL 11.5-16.0 Blood hematocrit (volume fraction) 53 % 35-52 Automated erythrocyte mean corpuscular volume 92 [ foz_us] 80-99 Automated erythrocyte mean corpuscular h emoglobin (mass per erythrocyte) 27 pg 25-34 Automated erythrocyte mean corpuscular h emoglobin concentration measurement (mass/volume) 29 g/dL 32-36 Automated erythrocyte distribution width ratio 16. 6 % 10.0- 14.5 Automated blood platelet count (count/volume) 190 10*3/uL 130-400 Automated blood platelet mean volume measurement 9.5 [foz_us] 7.4-10.4 Automated blood neutrophils/100 leukocytes 75 % 42-75 Automated blood lymphocytes/100 leukocytes 18 % 12-44 Blood monocytes/100 leukocytes 6 % 0-12 Automated blood eosinophils/100 leukocytes 0 % 0-10 Automated blood basophils/100 leukocytes 0 % 0-10 Blood neutrophils automated count (number/volume) 5.6 10*3 1.8-7.8 Blood lymphocytes automated count (number/volume) 1.4 10*3 1.0-4.0 Blood monocytes automated count (number/volume) 0. 5 10*3 0.0-1.0 Automated eosinophil count 0.0 10*3/uL 0 .0-0.3 Automated blood basophil count (count/volume) 0.0 10*3/uL 0.0-0.1 Blood lactic acid measurement (moles/vol ume) - 03/09/19 00:02 Blood lactic acid measurement (moles/volume) 1.39 mmol/L 0.50-2.00 Arterial blood gas measurement - 9 00:02 Blood pCO2 120 mm[Hg] 35-45 Blood pO2 94 mm[Hg] 79-93 Arterial blood bicarbonate measurement (moles/volume) 42 mmol/L 23-27 Arterial blood base excess by calculation 12.8 mmo l/L -2.5-2.5 Arterial blood oxygen saturation measurement 97 % 94-100 * Inhaled oxygen flow rate 100% BIPAP N RG Arterial blood pH measurement with patient temperature correction 7.16 7.37-7.43 Arterial blood carbon dioxide, total measurement (mole s/volume) 45.6 mmol/L 21.0-31.0 Body site LEFT RADIAL NRG Assessment of wrist artery patency prior to arterial p uncture POSITIVE NRG Setting of ventilation mode NO NR G Measurement of body temperature 97.0 NRG PT panel in platelet poor plasma by coag ulation assay - 03/09/19 00:02 Prothrombin time (PT) in platelet poor plasma by coagu lation assay 12.7 s 12.2-14.7 INR in platelet poor plasma or blood by coagulation as say 0.9 0.8-1.4 Activated partial thromboplastin time (a PTT) in platelet poor plasma bycoagulation assay - 03/09/19 00:02 Activated partial thromboplastin time (a PTT) in platelet poor plasma bycoagulation assay 27 s 24-35 Comprehensive metabolic panel - 03/09/19 00:02 Serum or plasma sodium measurement (moles/volume) 140 mmol/L 135-145 Serum or plasma potassium measurement (moles/volume) 4.8 mmol/L 3.6-5.0 Serum or plasma chloride measurement (moles/volume) 92 mmol/L 98-107 Carbon dioxide 36 mmol/L 21-32 Serum or plasma anion gap determination (moles/volume) 12 mmol/L 5-14 Serum or plasma urea nitrogen measurement (mass/volume ) 11 mg/dL 7-18 Serum or plasma creatinine measurement (mass/volume) 0.84 mg/dL 0.60-1.30 Serum or plasma urea nitrogen/creatinine mass ratio 13 NRG Serum or plasma creatinine measurement w ith calculation of estimated glomerular filtration rate > NRG Serum or plasma glucose measurement (mass/volume) 253 mg/dL 70-105 Serum or plasma calcium measurement (mass/volume) 10.5 mg/dL 8.5-10.1 Serum or plasma total bilirubin measurement (mass/volu me) 0.4 mg/dL 0.1-1.0 Serum or plasma alkaline phosphatase moe surement (enzymatic activity/volume) 161 U/L 40-136 Serum or plasma aspartate aminotransfera se measurement (enzymatic activity/volume) 15 U/L 5-34 Serum or plasma alanine aminotransferase measurement (enzymatic activity/volume) 10 U/L 0-55 Serum or plasma protein measurement (mass/volume) 8.7 g/dL 6.4-8.2 Serum or plasma albumin measurement (mass/volume) 3.9 g/dL 3.2-4.5 CALCIUM CORRECTED 10.6 mg/dL 8.5-10.1 Serum or plasma lithium measurement (mol es/volume) - 03/09/19 00:02 [place] 1032.1 pg/mL <100.0 Magnesium - 03/09/19 00:02 Magnesium 2.0 mg/dL 1.6-2.4 Serum or plasma creatine kinase measurem ent (enzymatic activity/volume) - 03/09/19 00:02 Serum or plasma creatine kinase measurem ent (enzymatic activity/volume) 83 U/L 29-168 Serum or plasma creatine kinase MB measu rement (enzymatic activity/volume) - 03/09/19 00:02 Serum or plasma creatine kinase MB measu rement (enzymatic activity/volume) 5.0 ng/mL <6.6 Serum or plasma troponin i.cardiac measu rement (mass/volume) - 03/09/19 00:02 Serum or plasma troponin i.cardiac measurement (mass/v olume) 0.107 ng/mL <0.028 Serum or plasma thyroxine (T4) free vielka urement (mass/volume) - 03/09/19 00:02 Serum or plasma thyroxine (T4) free measurement (mass/ volume) 0.92 ng/dL 0.70-1.48 Serum or plasma thyrotropin measurement by detection limit <=0.05 miu/l (units/volume) - 03/09/19 00:02 Serum or plasma thyrotropin measurement by detection limit <=0.05 miu/l (units/volume) 0.29 u[iU]/mL 0.35-4.94 Serum or plasma ethanol measurement (mas s/volume) - 03/09/19 00:02 Serum or plasma ethanol measurement (mass/volume) < mg/dL <10 Bacterial blood culture - 03/09/19 00:02 Bacterial blood culture NG NRG Bacterial blood culture - 03/09/19 00:02 Bacterial blood culture NG NRG Sputum Gram stain - 03/09/19 01:05 Sputum Gram stain Many Gram positive cocci i n pairs predominant NRG Bacterial sputum culture - 03/09/19 01:0 5 FREE TEXT EXTERNAL SUSCEPTIBILITY REPORTED 03/12/19 13:25 NRG QUANTITY OF GROWTH Moderate Growth NRG FREE TEXT ENTRY 2 NO INDUCIBLE CLINDAMYCIN RESISTA NCE NRG FREE TEXT ENTRY 3 RESISTANT ORGANISM/CONTACT PRECA UTION NRG CALL POSITIVES (F1 HELP) MRSA CALLED TO JIMMY CARDOZO 03/12 13:[address] NRG Bacterial sputum culture [id number] NRG Dirithromycin susceptibility test by dis k diffusion - 03/09/19 01:05 Oxacillin susceptibility test by minimum inhibitory co ncentration > NRG Clindamycin susceptibility test by minimum inhibitory concentration <= NRG Erythromycin susceptibility test by minimum inhibitory concentration > NRG Trimethoprim/sulfamethoxazole susceptibi lity test by minimum inhibitoryconcentration <= NRG Vancomycin susceptibility test by minimum inhibitory c oncentration 1 NRG Levofloxacin susceptibility test by minimum inhibitory concentration 4 NRG Rifampin susceptibility test by minimum inhibitory con centration <= NRG Cefazolin susceptibility test by minimum inhibitory co ncentration > NRG Linezolid susceptibility test by minimum inhibitory co ncentration <= NRG Penicillin G susceptibility test by minimum inhibitory concentration > NRG Moxifloxacin susceptibility test by minimum inhibitory concentration 2 NRG Minocycline susc BUSHRA <= NRG Arterial blood gas measurement - 9 01:31 Blood pCO2 88 mm[Hg] 35-45 Blood pO2 201 mm[Hg] 79-93 Arterial blood bicarbonate measurement (moles/volume) 36 mmol/L 23-27 Arterial blood base excess by calculation 8.4 mmol /L -2.5-2.5 Arterial blood oxygen saturation measurement 100 % 94-100 * Inhaled oxygen flow rate 50% NRG Arterial blood pH measurement with patient temperature correction 7.23 7.37-7.43 Arterial blood carbon dioxide, total measurement (mole s/volume) 38.5 mmol/L 21.0-31.0 Body site RIGHT RADIAL NRG Assessment of wrist artery patency prior to arterial p uncture POSITIVE NRG Setting of ventilation mode YES NR G Measurement of body temperature 95.6 NRG Complete urinalysis with reflex to cultu re - 03/09/19 01:45 Urine color determination JONNIE NRG Urine clarity determination SLIGHTLY CLOUDY NRG Urine pH measurement by test strip 6 5-9 Specific gravity of urine by test strip 1.025 1.016-1.022 Urine protein assay by test strip, semi-quantitative 4+ NEGATIVE Urine glucose detection by automated test strip 1+ NEGATIVE Erythrocytes detection in urine sediment by light micr oscopy 1+ NEGATIVE Urine ketones detection by automated test strip 1+ NEGATIVE Urine nitrite detection by test strip POSITIVE NEGATIVE Urine total bilirubin detection by test strip 1+ NEGATIVE Urine urobilinogen measurement by automated test strip (mass/volume) 4 mg/dL NORMAL Urine leukocyte esterase detection by dipstick 1+ NEGATIVE Automated urine sediment erythrocyte cou nt by microscopy (number/high power field) NONE NRG Automated urine sediment leukocyte count by microscopy (number/high power field) [HPF] NRG Bacteria detection in urine sediment by light microsco py LARGE NRG Squamous epithelial cells detection in u rine sediment by light microscopy 10-25 NRG Crystals detection in urine sediment by light microsco py NONE NRG Casts detection in urine sediment by light microscopy PRESENT NRG Mucus detection in urine sediment by light microscopy LARGE NRG Complete urinalysis with reflex to culture CULTURE PENDING NRG Hyaline casts detection in urine sediment by light bushra roscopy 2-5 NRG Urine drug screening test - 03/09/19 01: 45 Urine phencyclidine detection by screening method NEGATIVE NEGATIVE Urine benzodiazepines detection by screening method NEGATIVE NEGATIVE Urine cocaine detection NEGATIVE NEGATI VE Urine amphetamines detection by screening method N EGATIVE NEGATIVE Urine methamphetamine detection by screening method NEGATIVE NEGATIVE Urine cannabinoids detection by screening method N EGATIVE NEGATIVE Urine opiates detection by screening method NEGATI VE NEGATIVE Urine barbiturates detection NEGATIVE N EGATIVE Screening urine tricyclic antidepressants detection NEGATIVE NEGATIVE Urine methadone detection by screening method NEGA TIVE NEGATIVE Urine oxycodone detection NEGATIVE NEGA TIVE Urine propoxyphene detection NEGATIVE N EGATIVE Bacterial urine culture - 03/09/19 01:45 Bacterial urine culture 3 OR MORE NRG COLONY COUNT 50,000 CFU/ML NRG FTX;REPORTABLE SUGGESTING PROBABLE COLLECTION NRG FREE TEXT ENTRY 2 CONTAMINATION WITH SKIN DEMARCO NRG FREE TEXT ENTRY 3 NO SUSCEPTIBILITY PERFORMED NRG Arterial blood gas measurement - 9 04:15 Blood pCO2 77 mm[Hg] 35-45 Blood pO2 58 mm[Hg] 79-93 Arterial blood bicarbonate measurement (moles/volume) 37 mmol/L 23-27 Arterial blood base excess by calculation 10.1 mmo l/L -2.5-2.5 Arterial blood oxygen saturation measurement 91 % 94-100 * Inhaled oxygen flow rate 50% NRG Arterial blood pH measurement with patient temperature correction 7.29 7.37-7.43 Arterial blood carbon dioxide, total measurement (mole s/volume) 39.3 mmol/L 21.0-31.0 Body site RIGHT RADIAL NRG Assessment of wrist artery patency prior to arterial p uncture POSITIVE NRG Setting of ventilation mode YES NR G Measurement of body temperature 97.1 NRG Serum or plasma troponin i.cardiac measu rement (mass/volume) - 03/09/19 06:02 Serum or plasma troponin i.cardiac measurement (mass/v olume) 0.078 ng/mL <0.028 Arterial blood gas measurement - 9 08:05 Blood pCO2 75 mm[Hg] 35-45 Blood pO2 61 mm[Hg] 79-93 Arterial blood bicarbonate measurement (moles/volume) 38 mmol/L 23-27 Arterial blood base excess by calculation 11.6 mmo l/L -2.5-2.5 Arterial blood oxygen saturation measurement 92 % 94-100 * Inhaled oxygen flow rate 55% NRG Arterial blood pH measurement with patient temperature correction 7.32 7.37-7.43 Arterial blood carbon dioxide, total measurement (mole s/volume) 40.3 mmol/L 21.0-31.0 Body site L RADIAL NRG Assessment of wrist artery patency prior to arterial p uncture YES-POS NRG Setting of ventilation mode YES NR G Measurement of body temperature 97.8 NRG Complete blood count (CBC) with automate d white blood cell (WBC) differential - 03/09/19 08:15 Blood leukocytes automated count (number/volume) 7.0 10*3/uL 4.3-11.0 Blood erythrocytes automated count (number/volume) 5.04 10*6/uL 4.35-5.85 Venous blood hemoglobin measurement (mass/volume) 13.5 g/dL 11.5-16.0 Blood hematocrit (volume fraction) 46 % 35-52 Automated erythrocyte mean corpuscular volume 92 [ foz_us] 80-99 Automated erythrocyte mean corpuscular h emoglobin (mass per erythrocyte) 27 pg 25-34 Automated erythrocyte mean corpuscular h emoglobin concentration measurement (mass/volume) 29 g/dL 32-36 Automated erythrocyte distribution width ratio 16. 5 % 10.0- 14.5 Automated blood platelet count (count/volume) 158 10*3/uL 130-400 Automated blood platelet mean volume measurement 9.3 [foz_us] 7.4-10.4 Automated blood neutrophils/100 leukocytes 94 % 42-75 Automated blood lymphocytes/100 leukocytes 5 % 12-44 Blood monocytes/100 leukocytes 1 % 0-12 Automated blood eosinophils/100 leukocytes 0 % 0-10 Automated blood basophils/100 leukocytes 0 % 0-10 Blood neutrophils automated count (number/volume) 6.5 10*3 1.8-7.8 Blood lymphocytes automated count (number/volume) 0.4 10*3 1.0-4.0 Blood monocytes automated count (number/volume) 0. 1 10*3 0.0-1.0 Automated eosinophil count 0.0 10*3/uL 0 .0-0.3 Automated blood basophil count (count/volume) 0.0 10*3/uL 0.0-0.1 Comprehensive metabolic panel - 03/09/19 08:15 Serum or plasma sodium measurement (moles/volume) 138 mmol/L 135-145 Serum or plasma potassium measurement (moles/volume) 4.5 mmol/L 3.6-5.0 Serum or plasma chloride measurement (moles/volume) 97 mmol/L 98-107 Carbon dioxide 33 mmol/L 21-32 Serum or plasma anion gap determination (moles/volume) 8 mmol/L 5-14 Serum or plasma urea nitrogen measurement (mass/volume ) 13 mg/dL 7-18 Serum or plasma creatinine measurement (mass/volume) 0.91 mg/dL 0.60-1.30 Serum or plasma urea nitrogen/creatinine mass ratio 14 NRG Serum or plasma creatinine measurement w ith calculation of estimated glomerular filtration rate > NRG Serum or plasma glucose measurement (mass/volume) 269 mg/dL 70-105 Serum or plasma calcium measurement (mass/volume) 9.4 mg/dL 8.5-10.1 Serum or plasma total bilirubin measurement (mass/volu me) 0.3 mg/dL 0.1-1.0 Serum or plasma alkaline phosphatase moe surement (enzymatic activity/volume) 125 U/L 40-136 Serum or plasma aspartate aminotransfera se measurement (enzymatic activity/volume) 12 U/L 5-34 Serum or plasma alanine aminotransferase measurement (enzymatic activity/volume) 8 U/L 0-55 Serum or plasma protein measurement (mass/volume) 7.1 g/dL 6.4-8.2 Serum or plasma albumin measurement (mass/volume) 3.3 g/dL 3.2-4.5 CALCIUM CORRECTED 10.0 mg/dL 8.5-10.1 Serum or plasma phosphate measurement (m ass/volume) - 03/09/19 08:15 Serum or plasma phosphate measurement (mass/volume) 3.0 mg/dL 2.3-4.7 Magnesium - 03/09/19 08:15 Magnesium 1.6 mg/dL 1.6-2.4 Manual absolute plasma cell count - 02/19 04/09 08:15 Blood monocytes/100 leukocytes 0 % NRG Manual blood segmented neutrophils/100 leukocytes 94 % NRG Blood band neutrophils/100 leukocytes 4 % NRG Manual blood lymphocytes/100 leukocytes 2 % NRG Manual eosinophils/100 leukocytes in nose 0 % NRG Manual blood basophils/100 leukocytes 0 % NRG Blood anisocytosis detection by light microscopy S LIGHT NRG Serum or plasma triglyceride measurement (mass/volume) - 03/09/19 08:15 Serum or plasma triglyceride measurement (mass/volume) 136 mg/dL <150 IONIZED CALCIUM (SEND OFF) - 03/09/19 08 :15 Blood ionized calcium measurement (mass/volume) 1. 20 % 1.16- 1.32 Venous blood ionized calcium measurement adjusted to pH 7.4 (moles/volume) 1.19 % 1.16-1.32 pH measurement 7.39 NRG Serum or plasma intact pararthyroid horm one measurement (mass/volume) - 03/09/19 08:15 Serum or plasma intact parathyroid hormone measurement (mass/volume) 156.4 pg/mL 9.0-77.0 Bio-intact parathyroid hormone (PTH) measurement with calcium 9.2 % 8.5-10.5 Serum angiotensin converting enzyme (YURI ) measurement - 03/09/19 08:15 Serum angiotensin converting enzyme (YURI) measurement 17 U/L 9-67 Methicillin resistant Staphylococcus aur eus (MRSA) screening culture - 03/09/19 09:12 MRSA SCREEN RESULT MRSA ISOLATED NRG Capillary blood glucose measurement by g lucometer (mass/volume) - 03/09/19 16:54 Capillary blood glucose measurement by glucometer (mas s/volume) 242 mg/dL 70-110 Capillary blood glucose measurement by g lucometer (mass/volume) - 03/10/19 00:33 Capillary blood glucose measurement by glucometer (mas s/volume) 233 mg/dL 70-110 Complete blood count (CBC) with automate d white blood cell (WBC) differential - 03/10/19 02:55 Blood leukocytes automated count (number/volume) 7.3 10*3/uL 4.3-11.0 Blood erythrocytes automated count (number/volume) 4.72 10*6/uL 4.35-5.85 Venous blood hemoglobin measurement (mass/volume) 12.8 g/dL 11.5-16.0 Blood hematocrit (volume fraction) 44 % 35-52 Automated erythrocyte mean corpuscular volume 92 [ foz_us] 80-99 Automated erythrocyte mean corpuscular h emoglobin (mass per erythrocyte) 27 pg 25-34 Automated erythrocyte mean corpuscular h emoglobin concentration measurement (mass/volume) 29 g/dL 32-36 Automated erythrocyte distribution width ratio 16. 1 % 10.0- 14.5 Automated blood platelet count (count/volume) 131 10*3/uL 130-400 Automated blood platelet mean volume measurement 10.3 [foz_us] 7.4-10.4 Automated blood neutrophils/100 leukocytes 87 % 42-75 Automated blood lymphocytes/100 leukocytes 5 % 12-44 Blood monocytes/100 leukocytes 5 % 0-12 Automated blood eosinophils/100 leukocytes 3 % 0-10 Automated blood basophils/100 leukocytes 0 % 0-10 Blood neutrophils automated count (number/volume) 6.4 10*3 1.8-7.8 Blood lymphocytes automated count (number/volume) 0.4 10*3 1.0-4.0 Blood monocytes automated count (number/volume) 0. 3 10*3 0.0-1.0 Automated eosinophil count 0.3 10*3/uL 0 .0-0.3 Automated blood basophil count (count/volume) 0.0 10*3/uL 0.0-0.1 Comprehensive metabolic panel - 03/10/19 02:55 Serum or plasma sodium measurement (moles/volume) 139 mmol/L 135-145 Serum or plasma potassium measurement (moles/volume) 4.7 mmol/L 3.6-5.0 Serum or plasma chloride measurement (moles/volume) 97 mmol/L 98-107 Carbon dioxide 32 mmol/L 21-32 Serum or plasma anion gap determination (moles/volume) 10 mmol/L 5-14 Serum or plasma urea nitrogen measurement (mass/volume ) 18 mg/dL 7-18 Serum or plasma creatinine measurement (mass/volume) 0.82 mg/dL 0.60-1.30 Serum or plasma urea nitrogen/creatinine mass ratio 22 NRG Serum or plasma creatinine measurement w ith calculation of estimated glomerular filtration rate > NRG Serum or plasma glucose measurement (mass/volume) 194 mg/dL 70-105 Serum or plasma calcium measurement (mass/volume) 10.1 mg/dL 8.5-10.1 Serum or plasma total bilirubin measurement (mass/volu me) 0.2 mg/dL 0.1-1.0 Serum or plasma alkaline phosphatase moe surement (enzymatic activity/volume) 96 U/L 40-136 Serum or plasma aspartate aminotransfera se measurement (enzymatic activity/volume) 9 U/L 5-34 Serum or plasma alanine aminotransferase measurement (enzymatic activity/volume) 7 U/L 0-55 Serum or plasma protein measurement (mass/volume) 6.7 g/dL 6.4-8.2 Serum or plasma albumin measurement (mass/volume) 3.0 g/dL 3.2-4.5 CALCIUM CORRECTED 10.9 mg/dL 8.5-10.1 Serum or plasma phosphate measurement (m ass/volume) - 03/10/19 02:55 Serum or plasma phosphate measurement (mass/volume) 2.5 mg/dL 2.3-4.7 Magnesium - 03/10/19 02:55 Magnesium 2.1 mg/dL 1.6-2.4 Arterial blood gas measurement - 9 03:15 Blood pCO2 66 mm[Hg] 35-45 Blood pO2 61 mm[Hg] 79-93 Arterial blood bicarbonate measurement (moles/volume) 40 mmol/L 23-27 Arterial blood base excess by calculation 13.9 mmo l/L -2.5-2.5 Arterial blood oxygen saturation measurement 92 % 94-100 * Inhaled oxygen flow rate 55% NRG Arterial blood pH measurement with patient temperature correction 7.39 7.37-7.43 Arterial blood carbon dioxide, total measurement (mole s/volume) 41.7 mmol/L 21.0-31.0 Body site RIGHT RADIAL NRG Assessment of wrist artery patency prior to arterial p uncture POSITIVE NRG Setting of ventilation mode YES NR G Measurement of body temperature 97.3 NRG Arterial blood gas measurement - 9 08:43 Blood pCO2 66 mm[Hg] 35-45 Blood pO2 66 mm[Hg] 79-93 Arterial blood bicarbonate measurement (moles/volume) 39 mmol/L 23-27 Arterial blood base excess by calculation 13.0 mmo l/L -2.5-2.5 Arterial blood oxygen saturation measurement 93 % 94-100 * Inhaled oxygen flow rate 30% NRG Arterial blood pH measurement with patient temperature correction 7.39 7.37-7.43 Arterial blood carbon dioxide, total measurement (mole s/volume) 40.6 mmol/L 21.0-31.0 Body site RT RAD NRG Assessment of wrist artery patency prior to arterial p uncture YES-POS NRG Setting of ventilation mode YES NR G Measurement of body temperature 98.7 NRG VITAMIN D 25-HYDROXY - 03/10/19 10:18 VITAMIN D 25-HYDROXY (TOTAL) 5.7 % 3 0.0-100.0 Capillary blood glucose measurement by g lucometer (mass/volume) - 03/10/19 11:16 Capillary blood glucose measurement by glucometer (mas s/volume) 266 mg/dL 70-110 Capillary blood glucose measurement by g lucometer (mass/volume) - 03/10/19 16:43 Capillary blood glucose measurement by glucometer (mas s/volume) 242 mg/dL 70-110 Arterial blood gas measurement - 9 21:11 Blood pCO2 69 mm[Hg] 35-45 Blood pO2 69 mm[Hg] 79-93 Arterial blood bicarbonate measurement (moles/volume) 37 mmol/L 23-27 Arterial blood base excess by calculation 11.4 mmo l/L -2.5-2.5 Arterial blood oxygen saturation measurement 92 % 94-100 * Inhaled oxygen flow rate 50% NRG Arterial blood pH measurement with patient temperature correction 7.35 7.37-7.43 Arterial blood carbon dioxide, total measurement (mole s/volume) 39.3 mmol/L 21.0-31.0 Body site R RAD NRG Assessment of wrist artery patency prior to arterial p uncture YES-POS NRG Setting of ventilation mode YES NR G Measurement of body temperature 99.0 NRG Capillary blood glucose measurement by g lucometer (mass/volume) - 03/10/19 23:47 Capillary blood glucose measurement by glucometer (mas s/volume) 293 mg/dL 70-110 Complete blood count (CBC) with automate d white blood cell (WBC) differential - 03/11/19 03:00 Blood leukocytes automated count (number/volume) 12.0 10*3/uL 4.3-11.0 Blood erythrocytes automated count (number/volume) 5.47 10*6/uL 4.35-5.85 Venous blood hemoglobin measurement (mass/volume) 14.7 g/dL 11.5-16.0 Blood hematocrit (volume fraction) 49 % 35-52 Automated erythrocyte mean corpuscular volume 90 [ foz_us] 80-99 Automated erythrocyte mean corpuscular h emoglobin (mass per erythrocyte) 27 pg 25-34 Automated erythrocyte mean corpuscular h emoglobin concentration measurement (mass/volume) 30 g/dL 32-36 Automated erythrocyte distribution width ratio 16. 7 % 10.0- 14.5 Automated blood platelet count (count/volume) 195 10*3/uL 130-400 Automated blood platelet mean volume measurement 9.7 [foz_us] 7.4-10.4 Automated blood neutrophils/100 leukocytes 91 % 42-75 Automated blood lymphocytes/100 leukocytes 5 % 12-44 Blood monocytes/100 leukocytes 3 % 0-12 Automated blood eosinophils/100 leukocytes 0 % 0-10 Automated blood basophils/100 leukocytes 0 % 0-10 Blood neutrophils automated count (number/volume) 11.0 10*3 1.8-7.8 Blood lymphocytes automated count (number/volume) 0.6 10*3 1.0-4.0 Blood monocytes automated count (number/volume) 0. 4 10*3 0.0-1.0 Automated eosinophil count 0.0 10*3/uL 0 .0-0.3 Automated blood basophil count (count/volume) 0.0 10*3/uL 0.0-0.1 Whole blood basic metabolic panel - 02/20 08/09 03:00 Serum or plasma sodium measurement (moles/volume) 136 mmol/L 135-145 Serum or plasma potassium measurement (moles/volume) 4.9 mmol/L 3.6-5.0 Serum or plasma chloride measurement (moles/volume) 95 mmol/L 98-107 Carbon dioxide 29 mmol/L 21-32 Serum or plasma anion gap determination (moles/volume) 12 mmol/L 5-14 Serum or plasma urea nitrogen measurement (mass/volume ) 21 mg/dL 7-18 Serum or plasma creatinine measurement (mass/volume) 0.83 mg/dL 0.60-1.30 Serum or plasma urea nitrogen/creatinine mass ratio 25 NRG Serum or plasma creatinine measurement w ith calculation of estimated glomerular filtration rate > NRG Serum or plasma glucose measurement (mass/volume) 270 mg/dL 70-105 Serum or plasma calcium measurement (mass/volume) 9.7 mg/dL 8.5-10.1 Serum or plasma phosphate measurement (m ass/volume) - 03/11/19 03:00 Serum or plasma phosphate measurement (mass/volume) 3.3 mg/dL 2.3-4.7 Magnesium - 03/11/19 03:00 Magnesium 1.7 mg/dL 1.6-2.4 Serum or plasma triglyceride measurement (mass/volume) - 03/11/19 03:00 Serum or plasma triglyceride measurement (mass/volume) 336 mg/dL <150 Arterial blood gas measurement - 9 03:28 Blood pCO2 62 mm[Hg] 35-45 Blood pO2 72 mm[Hg] 79-93 Arterial blood bicarbonate measurement (moles/volume) 36 mmol/L 23-27 Arterial blood base excess by calculation 10.4 mmo l/L -2.5-2.5 Arterial blood oxygen saturation measurement 93 % 94-100 * Inhaled oxygen flow rate 55% NRG Arterial blood pH measurement with patient temperature correction 7.38 7.37-7.43 Arterial blood carbon dioxide, total measurement (mole s/volume) 37.5 mmol/L 21.0-31.0 Body site LEFT RADIAL NRG Assessment of wrist artery patency prior to arterial p uncture POSITIVE NRG Setting of ventilation mode YES NR G Measurement of body temperature 99 NRG Capillary blood glucose measurement by g lucometer (mass/volume) - 03/11/19 11:34 Capillary blood glucose measurement by glucometer (mas s/volume) 206 mg/dL 70-110 Capillary blood glucose measurement by g lucometer (mass/volume) - 03/11/19 16:40 Capillary blood glucose measurement by glucometer (mas s/volume) 175 mg/dL 70-110 Capillary blood glucose measurement by g lucometer (mass/volume) - 03/12/19 00:09 Capillary blood glucose measurement by glucometer (mas s/volume) 221 mg/dL 70-110 Complete blood count (CBC) with automate d white blood cell (WBC) differential - 03/12/19 02:54 Blood leukocytes automated count (number/volume) 7.2 10*3/uL 4.3-11.0 Blood erythrocytes automated count (number/volume) 5.42 10*6/uL 4.35-5.85 Venous blood hemoglobin measurement (mass/volume) 14.5 g/dL 11.5-16.0 Blood hematocrit (volume fraction) 49 % 35-52 Automated erythrocyte mean corpuscular volume 90 [ foz_us] 80-99 Automated erythrocyte mean corpuscular h emoglobin (mass per erythrocyte) 27 pg 25-34 Automated erythrocyte mean corpuscular h emoglobin concentration measurement (mass/volume) 30 g/dL 32-36 Automated erythrocyte distribution width ratio 16. 1 % 10.0- 14.5 Automated blood platelet count (count/volume) 161 10*3/uL 130-400 Automated blood platelet mean volume measurement 9.4 [foz_us] 7.4-10.4 Automated blood neutrophils/100 leukocytes 86 % 42-75 Automated blood lymphocytes/100 leukocytes 9 % 12-44 Blood monocytes/100 leukocytes 5 % 0-12 Automated blood eosinophils/100 leukocytes 0 % 0-10 Automated blood basophils/100 leukocytes 0 % 0-10 Blood neutrophils automated count (number/volume) 6.2 10*3 1.8-7.8 Blood lymphocytes automated count (number/volume) 0.6 10*3 1.0-4.0 Blood monocytes automated count (number/volume) 0. 4 10*3 0.0-1.0 Automated eosinophil count 0.0 10*3/uL 0 .0-0.3 Automated blood basophil count (count/volume) 0.0 10*3/uL 0.0-0.1 Whole blood basic metabolic panel - 02/20 09/09 02:54 Serum or plasma sodium measurement (moles/volume) 137 mmol/L 135-145 Serum or plasma potassium measurement (moles/volume) 4.8 mmol/L 3.6-5.0 Serum or plasma chloride measurement (moles/volume) 96 mmol/L 98-107 Carbon dioxide 30 mmol/L 21-32 Serum or plasma anion gap determination (moles/volume) 11 mmol/L 5-14 Serum or plasma urea nitrogen measurement (mass/volume ) 22 mg/dL 7-18 Serum or plasma creatinine measurement (mass/volume) 0.79 mg/dL 0.60-1.30 Serum or plasma urea nitrogen/creatinine mass ratio 28 NRG Serum or plasma creatinine measurement w ith calculation of estimated glomerular filtration rate > NRG Serum or plasma glucose measurement (mass/volume) 195 mg/dL 70-105 Serum or plasma calcium measurement (mass/volume) 9.3 mg/dL 8.5-10.1 Serum or plasma phosphate measurement (m ass/volume) - 03/12/19 02:54 Serum or plasma phosphate measurement (mass/volume) 4.0 mg/dL 2.3-4.7 Magnesium - 03/12/19 02:54 Magnesium 2.4 mg/dL 1.6-2.4 Arterial blood gas measurement - 9 03:31 Blood pCO2 63 mm[Hg] 35-45 Blood pO2 70 mm[Hg] 79-93 Arterial blood bicarbonate measurement (moles/volume) 36 mmol/L 23-27 Arterial blood base excess by calculation 10.2 mmo l/L -2.5-2.5 Arterial blood oxygen saturation measurement 92 % 94-100 * Inhaled oxygen flow rate 50% NRG Arterial blood pH measurement with patient temperature correction 7.37 7.37-7.43 Arterial blood carbon dioxide, total measurement (mole s/volume) 37.4 mmol/L 21.0-31.0 Body site L RAD NRG Assessment of wrist artery patency prior to arterial p uncture YES-POS NRG Setting of ventilation mode YES NR G Measurement of body temperature 99.6 NRG Capillary blood glucose measurement by g lucometer (mass/volume) - 03/12/19 12:45 Capillary blood glucose measurement by glucometer (mas s/volume) 200 mg/dL 70-110 Vancomycin trough - 03/12/19 17:48 Vancomycin trough 23.4 ug/mL 10.0-20.0 Capillary blood glucose measurement by g lucometer (mass/volume) - 03/12/19 18:22 Capillary blood glucose measurement by glucometer (mas s/volume) 179 mg/dL 70-110 Capillary blood glucose measurement by g lucometer (mass/volume) - 03/12/19 23:45 Capillary blood glucose measurement by glucometer (mas s/volume) 218 mg/dL 70-110 Arterial blood gas measurement - 9 04:30 Blood pCO2 55 mm[Hg] 35-45 Blood pO2 89 mm[Hg] 79-93 Arterial blood bicarbonate measurement (moles/volume) 35 mmol/L 23-27 Arterial blood base excess by calculation 9.8 mmol /L -2.5-2.5 Arterial blood oxygen saturation measurement 97 % 94-100 * Inhaled oxygen flow rate 50% NRG Arterial blood pH measurement with patient temperature correction 7.42 7.37-7.43 Arterial blood carbon dioxide, total measurement (mole s/volume) 36.5 mmol/L 21.0-31.0 Body site LEFT RADIAL NRG Assessment of wrist artery patency prior to arterial p uncture YES-POS NRG Setting of ventilation mode YES NR G Measurement of body temperature 97.1 NRG Complete blood count (CBC) with automate d white blood cell (WBC) differential - 03/13/19 04:45 Blood leukocytes automated count (number/volume) 7.2 10*3/uL 4.3-11.0 Blood erythrocytes automated count (number/volume) 5.55 10*6/uL 4.35-5.85 Venous blood hemoglobin measurement (mass/volume) 14.9 g/dL 11.5-16.0 Blood hematocrit (volume fraction) 49 % 35-52 Automated erythrocyte mean corpuscular volume 89 [ foz_us] 80-99 Automated erythrocyte mean corpuscular h emoglobin (mass per erythrocyte) 27 pg 25-34 Automated erythrocyte mean corpuscular h emoglobin concentration measurement (mass/volume) 30 g/dL 32-36 Automated erythrocyte distribution width ratio 16. 4 % 10.0- 14.5 Automated blood platelet count (count/volume) 144 10*3/uL 130-400 Automated blood platelet mean volume measurement 10.1 [foz_us] 7.4-10.4 Automated blood neutrophils/100 leukocytes 85 % 42-75 Automated blood lymphocytes/100 leukocytes 7 % 12-44 Blood monocytes/100 leukocytes 6 % 0-12 Automated blood eosinophils/100 leukocytes 2 % 0-10 Automated blood basophils/100 leukocytes 0 % 0-10 Blood neutrophils automated count (number/volume) 6.2 10*3 1.8-7.8 Blood lymphocytes automated count (number/volume) 0.5 10*3 1.0-4.0 Blood monocytes automated count (number/volume) 0. 4 10*3 0.0-1.0 Automated eosinophil count 0.2 10*3/uL 0 .0-0.3 Automated blood basophil count (count/volume) 0.0 10*3/uL 0.0-0.1 Whole blood basic metabolic panel - 02/20 10/07 04:45 Serum or plasma sodium measurement (moles/volume) 138 mmol/L 135-145 Serum or plasma potassium measurement (moles/volume) 5.2 mmol/L 3.6-5.0 Serum or plasma chloride measurement (moles/volume) 98 mmol/L 98-107 Carbon dioxide 28 mmol/L 21-32 Serum or plasma anion gap determination (moles/volume) 12 mmol/L 5-14 Serum or plasma urea nitrogen measurement (mass/volume ) 30 mg/dL 7-18 Serum or plasma creatinine measurement (mass/volume) 0.84 mg/dL 0.60-1.30 Serum or plasma urea nitrogen/creatinine mass ratio 36 NRG Serum or plasma creatinine measurement w ith calculation of estimated glomerular filtration rate > NRG Serum or plasma glucose measurement (mass/volume) 203 mg/dL 70-105 Serum or plasma calcium measurement (mass/volume) 9.6 mg/dL 8.5-10.1 Serum or plasma phosphate measurement (m ass/volume) - 03/13/19 04:45 Serum or plasma phosphate measurement (mass/volume) 4.7 mg/dL 2.3-4.7 Magnesium - 03/13/19 04:45 Magnesium 2.0 mg/dL 1.6-2.4 Serum or plasma triglyceride measurement (mass/volume) - 03/13/19 04:45 Serum or plasma triglyceride measurement (mass/volume) 405 mg/dL <150 Vancomycin trough - 03/13/19 04:45 Vancomycin trough 12.6 ug/mL 10.0-20.0 Serum or plasma lithium measurement (mol es/volume) - 03/13/19 04:45 BNP PT 55.7 pg/mL <100.0 Capillary blood glucose measurement by g lucometer (mass/volume) - 03/13/19 10:58 Capillary blood glucose measurement by glucometer (mas s/volume) 205 mg/dL 70-110 Capillary blood glucose measurement by g lucometer (mass/volume) - 03/13/19 16:14 Capillary blood glucose measurement by glucometer (mas s/volume) 198 mg/dL 70-110 Capillary blood glucose measurement by g lucometer (mass/volume) - 03/13/19 17:54 Capillary blood glucose measurement by glucometer (mas s/volume) 201 mg/dL 70-110 Capillary blood glucose measurement by g lucometer (mass/volume) - 03/13/19 23:48 Capillary blood glucose measurement by glucometer (mas s/volume) 214 mg/dL 70-110 Complete blood count (CBC) with automate d white blood cell (WBC) differential - 03/14/19 02:59 Blood leukocytes automated count (number/volume) 6.2 10*3/uL 4.3-11.0 Blood erythrocytes automated count (number/volume) 5.40 10*6/uL 4.35-5.85 Venous blood hemoglobin measurement (mass/volume) 14.6 g/dL 11.5-16.0 Blood hematocrit (volume fraction) 47 % 35-52 Automated erythrocyte mean corpuscular volume 88 [ foz_us] 80-99 Automated erythrocyte mean corpuscular h emoglobin (mass per erythrocyte) 27 pg 25-34 Automated erythrocyte mean corpuscular h emoglobin concentration measurement (mass/volume) 31 g/dL 32-36 Automated erythrocyte distribution width ratio 15. 5 % 10.0- 14.5 Automated blood platelet count (count/volume) 135 10*3/uL 130-400 Automated blood platelet mean volume measurement 9.8 [foz_us] 7.4-10.4 Automated blood neutrophils/100 leukocytes 88 % 42-75 Automated blood lymphocytes/100 leukocytes 6 % 12-44 Blood monocytes/100 leukocytes 6 % 0-12 Automated blood eosinophils/100 leukocytes 0 % 0-10 Automated blood basophils/100 leukocytes 0 % 0-10 Blood neutrophils automated count (number/volume) 5.5 10*3 1.8-7.8 Blood lymphocytes automated count (number/volume) 0.4 10*3 1.0-4.0 Blood monocytes automated count (number/volume) 0. 3 10*3 0.0-1.0 Automated eosinophil count 0.0 10*3/uL 0 .0-0.3 Automated blood basophil count (count/volume) 0.0 10*3/uL 0.0-0.1 Whole blood basic metabolic panel - 02/20 11/07 02:59 Serum or plasma sodium measurement (moles/volume) 138 mmol/L 135-145 Serum or plasma potassium measurement (moles/volume) 4.4 mmol/L 3.6-5.0 Serum or plasma chloride measurement (moles/volume) 98 mmol/L 98-107 Carbon dioxide 25 mmol/L 21-32 Serum or plasma anion gap determination (moles/volume) 15 mmol/L 5-14 Serum or plasma urea nitrogen measurement (mass/volume ) 28 mg/dL 7-18 Serum or plasma creatinine measurement (mass/volume) 0.79 mg/dL 0.60-1.30 Serum or plasma urea nitrogen/creatinine mass ratio 35 NRG Serum or plasma creatinine measurement w ith calculation of estimated glomerular filtration rate > NRG Serum or plasma glucose measurement (mass/volume) 230 mg/dL 70-105 Serum or plasma calcium measurement (mass/volume) 9.3 mg/dL 8.5-10.1 Serum or plasma phosphate measurement (m ass/volume) - 03/14/19 02:59 Serum or plasma phosphate measurement (mass/volume) 3.6 mg/dL 2.3-4.7 Magnesium - 03/14/19 02:59 Magnesium 2.2 mg/dL 1.6-2.4 Arterial blood gas measurement - 9 03:21 Blood pCO2 52 mm[Hg] 35-45 Blood pO2 77 mm[Hg] 79-93 Arterial blood bicarbonate measurement (moles/volume) 34 mmol/L 23-27 Arterial blood base excess by calculation 9.1 mmol /L -2.5-2.5 Arterial blood oxygen saturation measurement 95 % 94-100 * Inhaled oxygen flow rate 50% NRG Arterial blood pH measurement with patient temperature correction 7.43 7.37-7.43 Arterial blood carbon dioxide, total measurement (mole s/volume) 35.4 mmol/L 21.0-31.0 Body site LEFT RADIAL NRG Assessment of wrist artery patency prior to arterial p uncture YES-POS NRG Setting of ventilation mode YES NR G Measurement of body temperature 98.3 NRG Arterial blood gas measurement - 9 09:01 Blood pCO2 55 mm[Hg] 35-45 Blood pO2 71 mm[Hg] 79-93 Arterial blood bicarbonate measurement (moles/volume) 36 mmol/L 23-27 Arterial blood base excess by calculation 11.0 mmo l/L -2.5-2.5 Arterial blood oxygen saturation measurement 95 % 94-100 * Inhaled oxygen flow rate VENT NRG Arterial blood pH measurement with patient temperature correction 7.43 7.37-7.43 Arterial blood carbon dioxide, total measurement (mole s/volume) 37.7 mmol/L 21.0-31.0 Body site R.RADIAL NRG Assessment of wrist artery patency prior to arterial p uncture YES-POS NRG Setting of ventilation mode YES NR G Measurement of body temperature 97.4 NRG Capillary blood glucose measurement by g lucometer (mass/volume) - 03/14/19 11:46 Capillary blood glucose measurement by glucometer (mas s/volume) 242 mg/dL 70-110 Capillary blood glucose measurement by g lucometer (mass/volume) - 03/14/19 17:50 Capillary blood glucose measurement by glucometer (mas s/volume) 166 mg/dL 70-110 Whole blood basic metabolic panel - 02/20 11/07 20:05 Serum or plasma sodium measurement (moles/volume) 144 mmol/L 135-145 Serum or plasma potassium measurement (moles/volume) 3.6 mmol/L 3.6-5.0 Serum or plasma chloride measurement (moles/volume) 96 mmol/L 98-107 Carbon dioxide 34 mmol/L 21-32 Serum or plasma anion gap determination (moles/volume) 14 mmol/L 5-14 Serum or plasma urea nitrogen measurement (mass/volume ) 28 mg/dL 7-18 Serum or plasma creatinine measurement (mass/volume) 0.84 mg/dL 0.60-1.30 Serum or plasma urea nitrogen/creatinine mass ratio 33 NRG Serum or plasma creatinine measurement w ith calculation of estimated glomerular filtration rate > NRG Serum or plasma glucose measurement (mass/volume) 187 mg/dL 70-105 Serum or plasma calcium measurement (mass/volume) 10.4 mg/dL 8.5-10.1 Serum or plasma phosphate measurement (m ass/volume) - 03/14/19 20:05 Serum or plasma phosphate measurement (mass/volume) 4.0 mg/dL 2.3-4.7 Magnesium - 03/14/19 20:05 Magnesium 1.8 mg/dL 1.6-2.4 Capillary blood glucose measurement by g lucometer (mass/volume) - 03/15/19 00:08 Capillary blood glucose measurement by glucometer (mas s/volume) 183 mg/dL 70-110 Complete blood count (CBC) with automate d white blood cell (WBC) differential - 03/15/19 03:07 Blood leukocytes automated count (number/volume) 13.5 10*3/uL 4.3-11.0 Blood erythrocytes automated count (number/volume) 5.72 10*6/uL 4.35-5.85 Venous blood hemoglobin measurement (mass/volume) 15.2 g/dL 11.5-16.0 Blood hematocrit (volume fraction) 51 % 35-52 Automated erythrocyte mean corpuscular volume 90 [ foz_us] 80-99 Automated erythrocyte mean corpuscular h emoglobin (mass per erythrocyte) 27 pg 25-34 Automated erythrocyte mean corpuscular h emoglobin concentration measurement (mass/volume) 30 g/dL 32-36 Automated erythrocyte distribution width ratio 16. 4 % 10.0- 14.5 Automated blood platelet count (count/volume) 227 10*3/uL 130-400 Automated blood platelet mean volume measurement 10.3 [foz_us] 7.4-10.4 Automated blood neutrophils/100 leukocytes 89 % 42-75 Automated blood lymphocytes/100 leukocytes 4 % 12-44 Blood monocytes/100 leukocytes 7 % 0-12 Automated blood eosinophils/100 leukocytes 0 % 0-10 Automated blood basophils/100 leukocytes 0 % 0-10 Blood neutrophils automated count (number/volume) 12.1 10*3 1.8-7.8 Blood lymphocytes automated count (number/volume) 0.5 10*3 1.0-4.0 Blood monocytes automated count (number/volume) 0. 9 10*3 0.0-1.0 Automated eosinophil count 0.0 10*3/uL 0 .0-0.3 Automated blood basophil count (count/volume) 0.0 10*3/uL 0.0-0.1 Whole blood basic metabolic panel - 02/20 12/07 03:07 Serum or plasma sodium measurement (moles/volume) 144 mmol/L 135-145 Serum or plasma potassium measurement (moles/volume) 3.5 mmol/L 3.6-5.0 Serum or plasma chloride measurement (moles/volume) 98 mmol/L 98-107 Carbon dioxide 35 mmol/L 21-32 Serum or plasma anion gap determination (moles/volume) 11 mmol/L 5-14 Serum or plasma urea nitrogen measurement (mass/volume ) 31 mg/dL 7-18 Serum or plasma creatinine measurement (mass/volume) 0.85 mg/dL 0.60-1.30 Serum or plasma urea nitrogen/creatinine mass ratio 36 NRG Serum or plasma creatinine measurement w ith calculation of estimated glomerular filtration rate > NRG Serum or plasma glucose measurement (mass/volume) 185 mg/dL 70-105 Serum or plasma calcium measurement (mass/volume) 10.1 mg/dL 8.5-10.1 Serum or plasma phosphate measurement (m ass/volume) - 03/15/19 03:07 Serum or plasma phosphate measurement (mass/volume) 3.1 mg/dL 2.3-4.7 Magnesium - 03/15/19 03:07 Magnesium 1.9 mg/dL 1.6-2.4 Serum or plasma triglyceride measurement (mass/volume) - 03/15/19 03:07 Serum or plasma triglyceride measurement (mass/volume) 304 mg/dL <150 Arterial blood gas measurement - 9 03:40 Blood pCO2 63 mm[Hg] 35-45 Blood pO2 68 mm[Hg] 79-93 Arterial blood bicarbonate measurement (moles/volume) 39 mmol/L 23-27 Arterial blood base excess by calculation 13.8 mmo l/L -2.5-2.5 Arterial blood oxygen saturation measurement 93 % 94-100 * Inhaled oxygen flow rate 40% NRG Arterial blood pH measurement with patient temperature correction 7.41 7.37-7.43 Arterial blood carbon dioxide, total measurement (mole s/volume) 41.1 mmol/L 21.0-31.0 Body site LEFT RADIAL NRG Assessment of wrist artery patency prior to arterial p uncture YES-POS NRG Setting of ventilation mode NO NR G Measurement of body temperature 98.3 NRG Capillary blood glucose measurement by g lucometer (mass/volume) - 03/15/19 11:16 Capillary blood glucose measurement by glucometer (mas s/volume) 193 mg/dL 70-110 Capillary blood glucose measurement by g lucometer (mass/volume) - 03/15/19 18:01 Capillary blood glucose measurement by glucometer (mas s/volume) 284 mg/dL 70-110 Whole blood basic metabolic panel - 02/20 12/07 19:41 Serum or plasma sodium measurement (moles/volume) 141 mmol/L 135-145 Serum or plasma potassium measurement (moles/volume) 3.7 mmol/L 3.6-5.0 Serum or plasma chloride measurement (moles/volume) 96 mmol/L 98-107 Carbon dioxide 34 mmol/L 21-32 Serum or plasma anion gap determination (moles/volume) 11 mmol/L 5-14 Serum or plasma urea nitrogen measurement (mass/volume ) 29 mg/dL 7-18 Serum or plasma creatinine measurement (mass/volume) 0.90 mg/dL 0.60-1.30 Serum or plasma urea nitrogen/creatinine mass ratio 32 NRG Serum or plasma creatinine measurement w ith calculation of estimated glomerular filtration rate > NRG Serum or plasma glucose measurement (mass/volume) 238 mg/dL 70-105 Serum or plasma calcium measurement (mass/volume) 9.9 mg/dL 8.5-10.1 Serum or plasma phosphate measurement (m ass/volume) - 03/15/19 19:41 Serum or plasma phosphate measurement (mass/volume) 3.3 mg/dL 2.3-4.7 Magnesium - 03/15/19 19:41 Magnesium 1.7 mg/dL 1.6-2.4 Serum or plasma lithium measurement (mol es/volume) - 03/15/19 19:41 BNP PT 180.9 pg/mL <100.0 Capillary blood glucose measurement by g lucometer (mass/volume) - 03/16/19 00:47 Capillary blood glucose measurement by glucometer (mas s/volume) 158 mg/dL 70-110 Complete blood count (CBC) with automate d white blood cell (WBC) differential - 03/16/19 02:55 Blood leukocytes automated count (number/volume) 6.6 10*3/uL 4.3-11.0 Blood erythrocytes automated count (number/volume) 5.41 10*6/uL 4.35-5.85 Venous blood hemoglobin measurement (mass/volume) 14.5 g/dL 11.5-16.0 Blood hematocrit (volume fraction) 49 % 35-52 Automated erythrocyte mean corpuscular volume 91 [ foz_us] 80-99 Automated erythrocyte mean corpuscular h emoglobin (mass per erythrocyte) 27 pg 25-34 Automated erythrocyte mean corpuscular h emoglobin concentration measurement (mass/volume) 30 g/dL 32-36 Automated erythrocyte distribution width ratio 15. 8 % 10.0- 14.5 Automated blood platelet count (count/volume) 181 10*3/uL 130-400 Automated blood platelet mean volume measurement 10.6 [foz_us] 7.4-10.4 Automated blood neutrophils/100 leukocytes 84 % 42-75 Automated blood lymphocytes/100 leukocytes 9 % 12-44 Blood monocytes/100 leukocytes 7 % 0-12 Automated blood eosinophils/100 leukocytes 0 % 0-10 Automated blood basophils/100 leukocytes 0 % 0-10 Blood neutrophils automated count (number/volume) 5.5 10*3 1.8-7.8 Blood lymphocytes automated count (number/volume) 0.6 10*3 1.0-4.0 Blood monocytes automated count (number/volume) 0. 5 10*3 0.0-1.0 Automated eosinophil count 0.0 10*3/uL 0 .0-0.3 Automated blood basophil count (count/volume) 0.0 10*3/uL 0.0-0.1 Whole blood basic metabolic panel - 02/20 01/07 02:55 Serum or plasma sodium measurement (moles/volume) 143 mmol/L 135-145 Serum or plasma potassium measurement (moles/volume) 3.5 mmol/L 3.6-5.0 Serum or plasma chloride measurement (moles/volume) 96 mmol/L 98-107 Carbon dioxide 35 mmol/L 21-32 Serum or plasma anion gap determination (moles/volume) 12 mmol/L 5-14 Serum or plasma urea nitrogen measurement (mass/volume ) 29 mg/dL 7-18 Serum or plasma creatinine measurement (mass/volume) 0.84 mg/dL 0.60-1.30 Serum or plasma urea nitrogen/creatinine mass ratio 35 NRG Serum or plasma creatinine measurement w ith calculation of estimated glomerular filtration rate > NRG Serum or plasma glucose measurement (mass/volume) 227 mg/dL 70-105 Serum or plasma calcium measurement (mass/volume) 9.9 mg/dL 8.5-10.1 Serum or plasma phosphate measurement (m ass/volume) - 03/16/19 02:55 Serum or plasma phosphate measurement (mass/volume) 3.6 mg/dL 2.3-4.7 Magnesium - 03/16/19 02:55 Magnesium 2.0 mg/dL 1.6-2.4 Arterial blood gas measurement - 9 03:45 Blood pCO2 64 mm[Hg] 35-45 Blood pO2 72 mm[Hg] 79-93 Arterial blood bicarbonate measurement (moles/volume) 40 mmol/L 23-27 Arterial blood base excess by calculation 14.8 mmo l/L -2.5-2.5 Arterial blood oxygen saturation measurement 94 % 94-100 * Inhaled oxygen flow rate 50% NRG Arterial blood pH measurement with patient temperature correction 7.41 7.37-7.43 Arterial blood carbon dioxide, total measurement (mole s/volume) 42.2 mmol/L 21.0-31.0 Body site RIGHT RADIAL NRG Assessment of wrist artery patency prior to arterial p uncture YES-POS NRG Setting of ventilation mode NO NR G Measurement of body temperature 98.6 NRG Capillary blood glucose measurement by g lucometer (mass/volume) - 03/16/19 11:55 Capillary blood glucose measurement by glucometer (mas s/volume) 181 mg/dL 70-110 Capillary blood glucose measurement by g lucometer (mass/volume) - 03/16/19 18:11 Capillary blood glucose measurement by glucometer (mas s/volume) 214 mg/dL 70-110 Capillary blood glucose measurement by g lucometer (mass/volume) - 03/16/19 23:36 Capillary blood glucose measurement by glucometer (mas s/volume) 172 mg/dL 70-110 Whole blood basic metabolic panel - 02/20 02/06 05:43 Serum or plasma sodium measurement (moles/volume) 141 mmol/L 135-145 Serum or plasma potassium measurement (moles/volume) 4.5 mmol/L 3.6-5.0 Serum or plasma chloride measurement (moles/volume) 99 mmol/L 98-107 Carbon dioxide 32 mmol/L 21-32 Serum or plasma anion gap determination (moles/volume) 10 mmol/L 5-14 Serum or plasma urea nitrogen measurement (mass/volume ) 25 mg/dL 7-18 Serum or plasma creatinine measurement (mass/volume) 0.75 mg/dL 0.60-1.30 Serum or plasma urea nitrogen/creatinine mass ratio 33 NRG Serum or plasma creatinine measurement w ith calculation of estimated glomerular filtration rate > NRG Serum or plasma glucose measurement (mass/volume) 181 mg/dL 70-105 Serum or plasma calcium measurement (mass/volume) 9.9 mg/dL 8.5-10.1 Magnesium - 03/17/19 05:43 Magnesium 1.7 mg/dL 1.6-2.4 Serum or plasma triglyceride measurement (mass/volume) - 03/17/19 05:43 Serum or plasma triglyceride measurement (mass/volume) 198 mg/dL <150 Capillary blood glucose measurement by g lucometer (mass/volume) - 03/17/19 05:46 Capillary blood glucose measurement by glucometer (mas s/volume) 192 mg/dL 70-110 Serum or plasma lithium measurement (mol es/volume) - 03/17/19 05:47 BNP PT 214.2 pg/mL <100.0 Capillary blood glucose measurement by g lucometer (mass/volume) - 03/17/19 11:53 Capillary blood glucose measurement by glucometer (mas s/volume) 165 mg/dL 70-110 Capillary blood glucose measurement by g lucometer (mass/volume) - 03/17/19 18:05 Capillary blood glucose measurement by glucometer (mas s/volume) 173 mg/dL 70-110 Capillary blood glucose measurement by g lucometer (mass/volume) - 03/18/19 00:44 Capillary blood glucose measurement by glucometer (mas s/volume) 235 mg/dL 70-110 Complete blood count (CBC) with automate d white blood cell (WBC) differential - 03/18/19 05:20 Blood leukocytes automated count (number/volume) 7.8 10*3/uL 4.3-11.0 Blood erythrocytes automated count (number/volume) 5.57 10*6/uL 4.35-5.85 Venous blood hemoglobin measurement (mass/volume) 15.1 g/dL 11.5-16.0 Blood hematocrit (volume fraction) 50 % 35-52 Automated erythrocyte mean corpuscular volume 90 [ foz_us] 80-99 Automated erythrocyte mean corpuscular h emoglobin (mass per erythrocyte) 27 pg 25-34 Automated erythrocyte mean corpuscular h emoglobin concentration measurement (mass/volume) 30 g/dL 32-36 Automated erythrocyte distribution width ratio 14. 8 % 10.0- 14.5 Automated blood platelet count (count/volume) 214 10*3/uL 130-400 Automated blood platelet mean volume measurement 10.8 [foz_us] 7.4-10.4 Automated blood neutrophils/100 leukocytes 85 % 42-75 Automated blood lymphocytes/100 leukocytes 8 % 12-44 Blood monocytes/100 leukocytes 7 % 0-12 Automated blood eosinophils/100 leukocytes 0 % 0-10 Automated blood basophils/100 leukocytes 0 % 0-10 Blood neutrophils automated count (number/volume) 6.7 10*3 1.8-7.8 Blood lymphocytes automated count (number/volume) 0.6 10*3 1.0-4.0 Blood monocytes automated count (number/volume) 0. 5 10*3 0.0-1.0 Automated eosinophil count 0.0 10*3/uL 0 .0-0.3 Automated blood basophil count (count/volume) 0.0 10*3/uL 0.0-0.1 Comprehensive metabolic panel - 03/18/19 05:20 Serum or plasma sodium measurement (moles/volume) 140 mmol/L 135-145 Serum or plasma potassium measurement (moles/volume) 4.6 mmol/L 3.6-5.0 Serum or plasma chloride measurement (moles/volume) 96 mmol/L 98-107 Carbon dioxide 35 mmol/L 21-32 Serum or plasma anion gap determination (moles/volume) 9 mmol/L 5-14 Serum or plasma urea nitrogen measurement (mass/volume ) 27 mg/dL 7-18 Serum or plasma creatinine measurement (mass/volume) 0.77 mg/dL 0.60-1.30 Serum or plasma urea nitrogen/creatinine mass ratio 35 NRG Serum or plasma creatinine measurement w ith calculation of estimated glomerular filtration rate > NRG Serum or plasma glucose measurement (mass/volume) 221 mg/dL 70-105 Serum or plasma calcium measurement (mass/volume) 9.6 mg/dL 8.5-10.1 Serum or plasma total bilirubin measurement (mass/volu me) 0.3 mg/dL 0.1-1.0 Serum or plasma alkaline phosphatase moe surement (enzymatic activity/volume) 66 U/L 40-136 Serum or plasma aspartate aminotransfera se measurement (enzymatic activity/volume) 11 U/L 5-34 Serum or plasma alanine aminotransferase measurement (enzymatic activity/volume) 17 U/L 0-55 Serum or plasma protein measurement (mass/volume) 6.0 g/dL 6.4-8.2 Serum or plasma albumin measurement (mass/volume) 3.1 g/dL 3.2-4.5 CALCIUM CORRECTED 10.3 mg/dL 8.5-10.1 Capillary blood glucose measurement by g lucometer (mass/volume) - 03/18/19 06:11 Capillary blood glucose measurement by glucometer (mas s/volume) 184 mg/dL 70-110 Capillary blood glucose measurement by g lucometer (mass/volume) - 03/18/19 12:28 Capillary blood glucose measurement by glucometer (mas s/volume) 251 mg/dL 70-110 Capillary blood glucose measurement by g lucometer (mass/volume) - 03/18/19 17:45 Capillary blood glucose measurement by glucometer (mas s/volume) 242 mg/dL 70-110 Capillary blood glucose measurement by g lucometer (mass/volume) - 03/19/19 00:16 Capillary blood glucose measurement by glucometer (mas s/volume) 172 mg/dL 70-110 Complete blood count (CBC) with automate d white blood cell (WBC) differential - 03/19/19 04:40 Blood leukocytes automated count (number/volume) 8.1 10*3/uL 4.3-11.0 Blood erythrocytes automated count (number/volume) 5.88 10*6/uL 4.35-5.85 Venous blood hemoglobin measurement (mass/volume) 15.7 g/dL 11.5-16.0 Blood hematocrit (volume fraction) 52 % 35-52 Automated erythrocyte mean corpuscular volume 88 [ foz_us] 80-99 Automated erythrocyte mean corpuscular h emoglobin (mass per erythrocyte) 27 pg 25-34 Automated erythrocyte mean corpuscular h emoglobin concentration measurement (mass/volume) 30 g/dL 32-36 Automated erythrocyte distribution width ratio 15. 1 % 10.0- 14.5 Automated blood platelet count (count/volume) 255 10*3/uL 130-400 Automated blood platelet mean volume measurement 10.7 [foz_us] 7.4-10.4 Automated blood neutrophils/100 leukocytes 89 % 42-75 Automated blood lymphocytes/100 leukocytes 7 % 12-44 Blood monocytes/100 leukocytes 4 % 0-12 Automated blood eosinophils/100 leukocytes 0 % 0-10 Automated blood basophils/100 leukocytes 0 % 0-10 Blood neutrophils automated count (number/volume) 7.2 10*3 1.8-7.8 Blood lymphocytes automated count (number/volume) 0.6 10*3 1.0-4.0 Blood monocytes automated count (number/volume) 0. 3 10*3 0.0-1.0 Automated eosinophil count 0.0 10*3/uL 0 .0-0.3 Automated blood basophil count (count/volume) 0.0 10*3/uL 0.0-0.1 Comprehensive metabolic panel - 03/19/19 04:40 Serum or plasma sodium measurement (moles/volume) 137 mmol/L 135-145 Serum or plasma potassium measurement (moles/volume) 4.4 mmol/L 3.6-5.0 Serum or plasma chloride measurement (moles/volume) 96 mmol/L 98-107 Carbon dioxide 32 mmol/L 21-32 Serum or plasma anion gap determination (moles/volume) 9 mmol/L 5-14 Serum or plasma urea nitrogen measurement (mass/volume ) 20 mg/dL 7-18 Serum or plasma creatinine measurement (mass/volume) 0.74 mg/dL 0.60-1.30 Serum or plasma urea nitrogen/creatinine mass ratio 27 NRG Serum or plasma creatinine measurement w ith calculation of estimated glomerular filtration rate > NRG Serum or plasma glucose measurement (mass/volume) 248 mg/dL 70-105 Serum or plasma calcium measurement (mass/volume) 9.6 mg/dL 8.5-10.1 Serum or plasma total bilirubin measurement (mass/volu me) 0.3 mg/dL 0.1-1.0 Serum or plasma alkaline phosphatase moe surement (enzymatic activity/volume) 69 U/L 40-136 Serum or plasma aspartate aminotransfera se measurement (enzymatic activity/volume) 18 U/L 5-34 Serum or plasma alanine aminotransferase measurement (enzymatic activity/volume) 19 U/L 0-55 Serum or plasma protein measurement (mass/volume) 6.1 g/dL 6.4-8.2 Serum or plasma albumin measurement (mass/volume) 3.2 g/dL 3.2-4.5 CALCIUM CORRECTED 10.2 mg/dL 8.5-10.1 Manual absolute plasma cell count - 02/20 04/09 04:40 Blood monocytes/100 leukocytes 2 % NRG Manual blood segmented neutrophils/100 leukocytes 94 % NRG Blood band neutrophils/100 leukocytes 0 % NRG Manual blood lymphocytes/100 leukocytes 2 % NRG Manual eosinophils/100 leukocytes in nose 0 % NRG Manual blood basophils/100 leukocytes 0 % NRG Blood lymphocytes variant/100 leukocytes 2 % NRG Blood anisocytosis detection by light microscopy S LIGHT NRG Capillary blood glucose measurement by g lucometer (mass/volume) - 03/19/19 05:15 Capillary blood glucose measurement by glucometer (mas s/volume) 243 mg/dL 70-110 Capillary blood glucose measurement by g lucometer (mass/volume) - 03/19/19 12:20 Capillary blood glucose measurement by glucometer (mas s/volume) 236 mg/dL 70-110 Capillary blood glucose measurement by g lucometer (mass/volume) - 03/19/19 17:53 Capillary blood glucose measurement by glucometer (mas s/volume) 206 mg/dL 70-110 Capillary blood glucose measurement by g lucometer (mass/volume) - 03/20/19 00:05 Capillary blood glucose measurement by glucometer (mas s/volume) 279 mg/dL 70-110 Complete blood count (CBC) with automate d white blood cell (WBC) differential - 03/20/19 05:10 Blood leukocytes automated count (number/volume) 7.7 10*3/uL 4.3-11.0 Blood erythrocytes automated count (number/volume) 6.11 10*6/uL 4.35-5.85 Venous blood hemoglobin measurement (mass/volume) 16.3 g/dL 11.5-16.0 Blood hematocrit (volume fraction) 54 % 35-52 Automated erythrocyte mean corpuscular volume 89 [ foz_us] 80-99 Automated erythrocyte mean corpuscular h emoglobin (mass per erythrocyte) 27 pg 25-34 Automated erythrocyte mean corpuscular h emoglobin concentration measurement (mass/volume) 30 g/dL 32-36 Automated erythrocyte distribution width ratio 14. 9 % 10.0- 14.5 Automated blood platelet count (count/volume) 291 10*3/uL 130-400 Automated blood platelet mean volume measurement 10.6 [foz_us] 7.4-10.4 Automated blood neutrophils/100 leukocytes 84 % 42-75 Automated blood lymphocytes/100 leukocytes 10 % 12-44 Blood monocytes/100 leukocytes 6 % 0-12 Automated blood eosinophils/100 leukocytes 0 % 0-10 Automated blood basophils/100 leukocytes 0 % 0-10 Blood neutrophils automated count (number/volume) 6.5 10*3 1.8-7.8 Blood lymphocytes automated count (number/volume) 0.8 10*3 1.0-4.0 Blood monocytes automated count (number/volume) 0. 5 10*3 0.0-1.0 Automated eosinophil count 0.0 10*3/uL 0 .0-0.3 Automated blood basophil count (count/volume) 0.0 10*3/uL 0.0-0.1 Comprehensive metabolic panel - 03/20/19 05:10 Serum or plasma sodium measurement (moles/volume) 140 mmol/L 135-145 Serum or plasma potassium measurement (moles/volume) 4.7 mmol/L 3.6-5.0 Serum or plasma chloride measurement (moles/volume) 92 mmol/L 98-107 Carbon dioxide 37 mmol/L 21-32 Serum or plasma anion gap determination (moles/volume) 11 mmol/L 5-14 Serum or plasma urea nitrogen measurement (mass/volume ) 15 mg/dL 7-18 Serum or plasma creatinine measurement (mass/volume) 0.83 mg/dL 0.60-1.30 Serum or plasma urea nitrogen/creatinine mass ratio 18 NRG Serum or plasma creatinine measurement w ith calculation of estimated glomerular filtration rate > NRG Serum or plasma glucose measurement (mass/volume) 162 mg/dL 70-105 Serum or plasma calcium measurement (mass/volume) 10.3 mg/dL 8.5-10.1 Serum or plasma total bilirubin measurement (mass/volu me) 0.4 mg/dL 0.1-1.0 Serum or plasma alkaline phosphatase moe surement (enzymatic activity/volume) 79 U/L 40-136 Serum or plasma aspartate aminotransfera se measurement (enzymatic activity/volume) 19 U/L 5-34 Serum or plasma alanine aminotransferase measurement (enzymatic activity/volume) 29 U/L 0-55 Serum or plasma protein measurement (mass/volume) 7.0 g/dL 6.4-8.2 Serum or plasma albumin measurement (mass/volume) 3.7 g/dL 3.2-4.5 CALCIUM CORRECTED 10.5 mg/dL 8.5-10.1 Capillary blood glucose measurement by g lucometer (mass/volume) - 03/20/19 05:32 Capillary blood glucose measurement by glucometer (mas s/volume) 167 mg/dL 70-110 [id number] - 06/26/19 14:18 Serum or plasma urea nitrogen measurement (mass/volume ) 9 mg/dL 7-18 Serum or plasma creatinine measurement (mass/volume) 0.81 mg/dL 0.60-1.30 Serum or plasma urea nitrogen/creatinine mass ratio 11 NRG Serum or plasma creatinine measurement w ith calculation of estimated glomerular filtration rate > NRG Influenza virus A and B antigen detectio n - 07/17/19 19:12 FLU RESULT NEGATIVE FOR INFLUENZA A AND B ANTIGENS BY IA NRG Blood lactic acid measurement (moles/vol ume) - 07/17/19 19:19 Blood lactic acid measurement (moles/volume) 2.99 mmol/L 0.50-2.00 Complete blood count (CBC) with automate d white blood cell (WBC) differential - 07/17/19 19:20 Blood leukocytes automated count (number/volume) 9.7 10*3/uL 4.3-11.0 Blood erythrocytes automated count (number/volume) 4.93 10*6/uL 4.35-5.85 Venous blood hemoglobin measurement (mass/volume) 14.0 g/dL 11.5-16.0 Blood hematocrit (volume fraction) 45 % 35-52 Automated erythrocyte mean corpuscular volume 92 [ foz_us] 80-99 Automated erythrocyte mean corpuscular h emoglobin (mass per erythrocyte) 28 pg 25-34 Automated erythrocyte mean corpuscular h emoglobin concentration measurement (mass/volume) 31 g/dL 32-36 Automated erythrocyte distribution width ratio 14. 6 % 10.0- 14.5 Automated blood platelet count (count/volume) 208 10*3/uL 130-400 Automated blood platelet mean volume measurement 10.1 [foz_us] 7.4-10.4 Automated blood neutrophils/100 leukocytes 81 % 42-75 Automated blood lymphocytes/100 leukocytes 13 % 12-44 Blood monocytes/100 leukocytes 6 % 0-12 Automated blood eosinophils/100 leukocytes 0 % 0-10 Automated blood basophils/100 leukocytes 0 % 0-10 Blood neutrophils automated count (number/volume) 7.8 10*3 1.8-7.8 Blood lymphocytes automated count (number/volume) 1.3 10*3 1.0-4.0 Blood monocytes automated count (number/volume) 0. 5 10*3 0.0-1.0 Automated eosinophil count 0.0 10*3/uL 0 .0-0.3 Automated blood basophil count (count/volume) 0.0 10*3/uL 0.0-0.1 Comprehensive metabolic panel - 07/17/19 19:20 Serum or plasma sodium measurement (moles/volume) 138 mmol/L 135-145 Serum or plasma potassium measurement (moles/volume) 4.1 mmol/L 3.6-5.0 Serum or plasma chloride measurement (moles/volume) 92 mmol/L 98-107 Carbon dioxide 32 mmol/L 21-32 Serum or plasma anion gap determination (moles/volume) 14 mmol/L 5-14 Serum or plasma urea nitrogen measurement (mass/volume ) 6 mg/dL 7-18 Serum or plasma creatinine measurement (mass/volume) 0.99 mg/dL 0.60-1.30 Serum or plasma urea nitrogen/creatinine mass ratio 6 NRG Serum or plasma creatinine measurement w ith calculation of estimated glomerular filtration rate 59 NRG Serum or plasma glucose measurement (mass/volume) 233 mg/dL 70-105 Serum or plasma calcium measurement (mass/volume) 10.0 mg/dL 8.5-10.1 Serum or plasma total bilirubin measurement (mass/volu me) 0.2 mg/dL 0.1-1.0 Serum or plasma alkaline phosphatase moe surement (enzymatic activity/volume) 126 U/L 40-136 Serum or plasma aspartate aminotransfera se measurement (enzymatic activity/volume) 10 U/L 5-34 Serum or plasma alanine aminotransferase measurement (enzymatic activity/volume) 9 U/L 0-55 Serum or plasma protein measurement (mass/volume) 8.2 g/dL 6.4-8.2 Serum or plasma albumin measurement (mass/volume) 3.7 g/dL 3.2-4.5 CALCIUM CORRECTED 10.2 mg/dL 8.5-10.1 Serum or plasma lithium measurement (mol es/volume) - 07/17/19 19:20 BNP PT 59.3 pg/mL <100.0 Serum or plasma troponin i.cardiac measu rement (mass/volume) - 07/17/19 19:20 Serum or plasma troponin i.cardiac measurement (mass/v olume) < ng/mL <0.028 Sputum Gram stain - 07/17/19 19:20 Sputum Gram stain Many Gram negative bacilli NRG Bacterial blood culture - 07/17/19 19:20 Bacterial blood culture NG NRG Bacterial sputum culture - 07/17/19 19:2 0 FREE TEXT EXTERNAL BETA LACTAMASE POSITIVE NRG QUANTITY OF GROWTH . NRG FREE TEXT ENTRY 2 PLUS NORMAL DEMARCO NRG FREE TEXT ENTRY 3 PRELIM RAPID ID TESTING AT [facility] NRG Bacterial sputum culture SEE COMMEN NRG Arterial blood gas measurement - 9 19:31 Blood pCO2 79 mm[Hg] 35-45 Blood pO2 77 mm[Hg] 79-93 Arterial blood bicarbonate measurement (moles/volume) 38 mmol/L 23-27 Arterial blood base excess by calculation 11.6 mmo l/L -2.5-2.5 Arterial blood oxygen saturation measurement 94 % 94-100 * Inhaled oxygen flow rate 5L NRG Arterial blood pH measurement with patient temperature correction 7.31 7.37-7.43 Arterial blood carbon dioxide, total measurement (mole s/volume) 40.1 mmol/L 21.0-31.0 Body site RIGHT RADIAL NRG Assessment of wrist artery patency prior to arterial p uncture YES-POS NRG Setting of ventilation mode NO NR G Measurement of body temperature 38.3 NRG Bacterial blood culture - 07/17/19 20:18 Bacterial blood culture NG NRG Serum or plasma lactate measurement (mol es/volume) - 07/17/19 21:34 Serum or plasma lactate measurement (moles/volume) 1.67 mmol/L 0.50-2.00 Complete urinalysis with reflex to cultu re - 07/17/19 22:05 Urine color determination YELLOW NRG Urine clarity determination CLEAR NR G Urine pH measurement by test strip 6.0 5-9 Specific gravity of urine by test strip >= 1.016-1.022 Urine protein assay by test strip, semi-quantitative 2+ NEGATIVE Urine glucose detection by automated test strip NE GATIVE NEGATIVE Erythrocytes detection in urine sediment by light micr oscopy NEGATIVE NEGATIVE Urine ketones detection by automated test strip NE GATIVE NEGATIVE Urine nitrite detection by test strip NEGATIVE NEGATIVE Urine total bilirubin detection by test strip NEGA TIVE NEGATIVE Urine urobilinogen measurement by automated test strip (mass/volume) 0.2 mg/dL < = 1.0 Urine leukocyte esterase detection by dipstick NEG ATIVE NEGATIVE Automated urine sediment erythrocyte cou nt by microscopy (number/high power field) [HPF] NRG Automated urine sediment leukocyte count by microscopy (number/high power field) NONE NRG Bacteria detection in urine sediment by light microsco py TRACE NRG Crystals detection in urine sediment by light microsco py PRESENT NRG Casts detection in urine sediment by light microscopy PRESENT NRG Mucus detection in urine sediment by light microscopy NEGATIVE NRG Complete urinalysis with reflex to culture NO NRG Amorphous sediment detection in urine sediment by ligh t microscopy MOD DORCAS URATES NRG Hyaline casts detection in urine sediment by light bushra roscopy 25-50 NRG Methicillin resistant Staphylococcus aur eus (MRSA) screening culture - 07/17/19 22:05 MRSA SCREEN RESULT MRSA ISOLATED NRG Capillary blood glucose measurement by g lucometer (mass/volume) - 07/17/19 22:07 Capillary blood glucose measurement by glucometer (mas s/volume) 330 mg/dL 70-110 Arterial blood gas measurement - 9 01:40 Blood pCO2 78 mm[Hg] 35-45 Blood pO2 71 mm[Hg] 79-93 Arterial blood bicarbonate measurement (moles/volume) 37 mmol/L 23-27 Arterial blood base excess by calculation 10.2 mmo l/L -2.5-2.5 Arterial blood oxygen saturation measurement 95 % 94-100 * Inhaled oxygen flow rate 40% NRG Arterial blood pH measurement with patient temperature correction 7.29 7.37-7.43 Arterial blood carbon dioxide, total measurement (mole s/volume) 39.5 mmol/L 21.0-31.0 Body site RIGHT RADIAL NRG Assessment of wrist artery patency prior to arterial p uncture YES-POS NRG Setting of ventilation mode NO NR G Measurement of body temperature 36.2 NRG Complete blood count (CBC) with automate d white blood cell (WBC) differential - 07/18/19 03:24 Blood leukocytes automated count (number/volume) 7.4 10*3/uL 4.3-11.0 Blood erythrocytes automated count (number/volume) 4.60 10*6/uL 4.35-5.85 Venous blood hemoglobin measurement (mass/volume) 12.9 g/dL 11.5-16.0 Blood hematocrit (volume fraction) 43 % 35-52 Automated erythrocyte mean corpuscular volume 93 [ foz_us] 80-99 Automated erythrocyte mean corpuscular h emoglobin (mass per erythrocyte) 28 pg 25-34 Automated erythrocyte mean corpuscular h emoglobin concentration measurement (mass/volume) 30 g/dL 32-36 Automated erythrocyte distribution width ratio 14. 9 % 10.0- 14.5 Automated blood platelet count (count/volume) 176 10*3/uL 130-400 Automated blood platelet mean volume measurement 9.8 [foz_us] 7.4-10.4 Automated blood neutrophils/100 leukocytes 91 % 42-75 Automated blood lymphocytes/100 leukocytes 8 % 12-44 Blood monocytes/100 leukocytes 1 % 0-12 Automated blood eosinophils/100 leukocytes 0 % 0-10 Automated blood basophils/100 leukocytes 0 % 0-10 Blood neutrophils automated count (number/volume) 6.7 10*3 1.8-7.8 Blood lymphocytes automated count (number/volume) 0.6 10*3 1.0-4.0 Blood monocytes automated count (number/volume) 0. 1 10*3 0.0-1.0 Automated eosinophil count 0.0 10*3/uL 0 .0-0.3 Automated blood basophil count (count/volume) 0.0 10*3/uL 0.0-0.1 Comprehensive metabolic panel - 07/18/19 03:24 Serum or plasma sodium measurement (moles/volume) 138 mmol/L 135-145 Serum or plasma potassium measurement (moles/volume) 4.8 mmol/L 3.6-5.0 Serum or plasma chloride measurement (moles/volume) 97 mmol/L 98-107 Carbon dioxide 29 mmol/L 21-32 Serum or plasma anion gap determination (moles/volume) 12 mmol/L 5-14 Serum or plasma urea nitrogen measurement (mass/volume ) 8 mg/dL 7-18 Serum or plasma creatinine measurement (mass/volume) 0.93 mg/dL 0.60-1.30 Serum or plasma urea nitrogen/creatinine mass ratio 9 NRG Serum or plasma creatinine measurement w ith calculation of estimated glomerular filtration rate > NRG Serum or plasma glucose measurement (mass/volume) 229 mg/dL 70-105 Serum or plasma calcium measurement (mass/volume) 9.4 mg/dL 8.5-10.1 Serum or plasma total bilirubin measurement (mass/volu me) 0.2 mg/dL 0.1-1.0 Serum or plasma alkaline phosphatase moe surement (enzymatic activity/volume) 106 U/L 40-136 Serum or plasma aspartate aminotransfera se measurement (enzymatic activity/volume) 8 U/L 5-34 Serum or plasma alanine aminotransferase measurement (enzymatic activity/volume) 7 U/L 0-55 Serum or plasma protein measurement (mass/volume) 7.3 g/dL 6.4-8.2 Serum or plasma albumin measurement (mass/volume) 3.4 g/dL 3.2-4.5 CALCIUM CORRECTED 9.9 mg/dL 8.5-10.1 Serum or plasma phosphate measurement (m ass/volume) - 07/18/19 03:24 Serum or plasma phosphate measurement (mass/volume) 2.9 mg/dL 2.3-4.7 Magnesium - 07/18/19 03:24 Magnesium 1.7 mg/dL 1.6-2.4 Magnesium - 07/18/19 03:24 Magnesium 1.7 mg/dL 1.6-2.4 Arterial blood gas measurement - 9 03:40 Blood pCO2 73 mm[Hg] 35-45 Blood pO2 71 mm[Hg] 79-93 Arterial blood bicarbonate measurement (moles/volume) 37 mmol/L 23-27 Arterial blood base excess by calculation 10.6 mmo l/L -2.5-2.5 Arterial blood oxygen saturation measurement 96 % 94-100 * Inhaled oxygen flow rate 45% NRG Arterial blood pH measurement with patient temperature correction 7.32 7.37-7.43 Arterial blood carbon dioxide, total measurement (mole s/volume) 39.3 mmol/L 21.0-31.0 Body site RIGHT RADIAL NRG Assessment of wrist artery patency prior to arterial p uncture YES-POS NRG Setting of ventilation mode NO NR G Measurement of body temperature 36.2 NRG Arterial blood gas measurement - 9 10:34 Blood pCO2 73 mm[Hg] 35-45 Blood pO2 82 mm[Hg] 79-93 Arterial blood bicarbonate measurement (moles/volume) 36 mmol/L 23-27 Arterial blood base excess by calculation 9.4 mmol /L -2.5-2.5 Arterial blood oxygen saturation measurement 97 % 94-100 * Inhaled oxygen flow rate 45% NRG Arterial blood pH measurement with patient temperature correction 7.31 7.37-7.43 Arterial blood carbon dioxide, total measurement (mole s/volume) 38.0 mmol/L 21.0-31.0 Body site RT RAD NRG Assessment of wrist artery patency prior to arterial p uncture YES-POS NRG Setting of ventilation mode YES NR G Measurement of body temperature 36.8 NRG Capillary blood glucose measurement by g lucometer (mass/volume) - 07/18/19 11:29 Capillary blood glucose measurement by glucometer (mas s/volume) 214 mg/dL 70-110 Capillary blood glucose measurement by g lucometer (mass/volume) - 07/18/19 15:53 Capillary blood glucose measurement by glucometer (mas s/volume) 256 mg/dL 70-110 Capillary blood glucose measurement by g lucometer (mass/volume) - 07/18/19 20:25 Capillary blood glucose measurement by glucometer (mas s/volume) 201 mg/dL 70-110 Complete blood count (CBC) with automate d white blood cell (WBC) differential - 07/19/19 03:36 Blood leukocytes automated count (number/volume) 8.1 10*3/uL 4.3-11.0 Blood erythrocytes automated count (number/volume) 4.42 10*6/uL 4.35-5.85 Venous blood hemoglobin measurement (mass/volume) 12.4 g/dL 11.5-16.0 Blood hematocrit (volume fraction) 41 % 35-52 Automated erythrocyte mean corpuscular volume 94 [ foz_us] 80-99 Automated erythrocyte mean corpuscular h emoglobin (mass per erythrocyte) 28 pg 25-34 Automated erythrocyte mean corpuscular h emoglobin concentration measurement (mass/volume) 30 g/dL 32-36 Automated erythrocyte distribution width ratio 14. 3 % 10.0- 14.5 Automated blood platelet count (count/volume) 180 10*3/uL 130-400 Automated blood platelet mean volume measurement 9.6 [foz_us] 7.4-10.4 Automated blood neutrophils/100 leukocytes 90 % 42-75 Automated blood lymphocytes/100 leukocytes 7 % 12-44 Blood monocytes/100 leukocytes 3 % 0-12 Automated blood eosinophils/100 leukocytes 0 % 0-10 Automated blood basophils/100 leukocytes 0 % 0-10 Blood neutrophils automated count (number/volume) 7.4 10*3 1.8-7.8 Blood lymphocytes automated count (number/volume) 0.6 10*3 1.0-4.0 Blood monocytes automated count (number/volume) 0. 2 10*3 0.0-1.0 Automated eosinophil count 0.0 10*3/uL 0 .0-0.3 Automated blood basophil count (count/volume) 0.0 10*3/uL 0.0-0.1 Whole blood basic metabolic panel - 06/22 04/09 03:36 Serum or plasma sodium measurement (moles/volume) 140 mmol/L 135-145 Serum or plasma potassium measurement (moles/volume) 5.5 mmol/L 3.6-5.0 Serum or plasma chloride measurement (moles/volume) 100 mmol/L 98-107 Carbon dioxide 29 mmol/L 21-32 Serum or plasma anion gap determination (moles/volume) 11 mmol/L 5-14 Serum or plasma urea nitrogen measurement (mass/volume ) 17 mg/dL 7-18 Serum or plasma creatinine measurement (mass/volume) 0.78 mg/dL 0.60-1.30 Serum or plasma urea nitrogen/creatinine mass ratio 22 NRG Serum or plasma creatinine measurement w ith calculation of estimated glomerular filtration rate > NRG Serum or plasma glucose measurement (mass/volume) 193 mg/dL 70-105 Serum or plasma calcium measurement (mass/volume) 9.9 mg/dL 8.5-10.1 Serum or plasma phosphate measurement (m ass/volume) - 07/19/19 03:36 Serum or plasma phosphate measurement (mass/volume) 2.6 mg/dL 2.3-4.7 Magnesium - 07/19/19 03:36 Magnesium 2.3 mg/dL 1.6-2.4 Arterial blood gas measurement - 9 04:00 Blood pCO2 67 mm[Hg] 35-45 Blood pO2 75 mm[Hg] 79-93 Arterial blood bicarbonate measurement (moles/volume) 34 mmol/L 23-27 Arterial blood base excess by calculation 7.9 mmol /L -2.5-2.5 Arterial blood oxygen saturation measurement 97 % 94-100 * Inhaled oxygen flow rate 40% NRG Arterial blood pH measurement with patient temperature correction 7.35 7.37-7.43 Arterial blood carbon dioxide, total measurement (mole s/volume) 36.2 mmol/L 21.0-31.0 Body site RIGHT RADIAL NRG Assessment of wrist artery patency prior to arterial p uncture YES-POS NRG Setting of ventilation mode NO NR G Measurement of body temperature 36.0 NRG Capillary blood glucose measurement by g lucometer (mass/volume) - 07/19/19 10:43 Capillary blood glucose measurement by glucometer (mas s/volume) 268 mg/dL 70-110 Capillary blood glucose measurement by g lucometer (mass/volume) - 07/19/19 15:57 Capillary blood glucose measurement by glucometer (mas s/volume) 230 mg/dL 70-110 Capillary blood glucose measurement by g lucometer (mass/volume) - 07/19/19 20:37 Capillary blood glucose measurement by glucometer (mas s/volume) 274 mg/dL 70-110 Complete blood count (CBC) with automate d white blood cell (WBC) differential - 07/20/19 04:58 Blood leukocytes automated count (number/volume) 7.0 10*3/uL 4.3-11.0 Blood erythrocytes automated count (number/volume) 4.48 10*6/uL 4.35-5.85 Venous blood hemoglobin measurement (mass/volume) 12.8 g/dL 11.5-16.0 Blood hematocrit (volume fraction) 42 % 35-52 Automated erythrocyte mean corpuscular volume 93 [ foz_us] 80-99 Automated erythrocyte mean corpuscular h emoglobin (mass per erythrocyte) 29 pg 25-34 Automated erythrocyte mean corpuscular h emoglobin concentration measurement (mass/volume) 31 g/dL 32-36 Automated erythrocyte distribution width ratio 14. 1 % 10.0- 14.5 Automated blood platelet count (count/volume) 194 10*3/uL 130-400 Automated blood platelet mean volume measurement 9.7 [foz_us] 7.4-10.4 Automated blood neutrophils/100 leukocytes 91 % 42-75 Automated blood lymphocytes/100 leukocytes 7 % 12-44 Blood monocytes/100 leukocytes 2 % 0-12 Automated blood eosinophils/100 leukocytes 0 % 0-10 Automated blood basophils/100 leukocytes 0 % 0-10 Blood neutrophils automated count (number/volume) 6.4 10*3 1.8-7.8 Blood lymphocytes automated count (number/volume) 0.5 10*3 1.0-4.0 Blood monocytes automated count (number/volume) 0. 2 10*3 0.0-1.0 Automated eosinophil count 0.0 10*3/uL 0 .0-0.3 Automated blood basophil count (count/volume) 0.0 10*3/uL 0.0-0.1 Whole blood basic metabolic panel - 06/23 04:58 Serum or plasma sodium measurement (moles/volume) 141 mmol/L 135-145 Serum or plasma potassium measurement (moles/volume) 4.8 mmol/L 3.6-5.0 Serum or plasma chloride measurement (moles/volume) 101 mmol/L 98-107 Carbon dioxide 29 mmol/L 21-32 Serum or plasma anion gap determination (moles/volume) 11 mmol/L 5-14 Serum or plasma urea nitrogen measurement (mass/volume ) 22 mg/dL 7-18 Serum or plasma creatinine measurement (mass/volume) 0.82 mg/dL 0.60-1.30 Serum or plasma urea nitrogen/creatinine mass ratio 27 NRG Serum or plasma creatinine measurement w ith calculation of estimated glomerular filtration rate > NRG Serum or plasma glucose measurement (mass/volume) 224 mg/dL 70-105 Serum or plasma calcium measurement (mass/volume) 9.7 mg/dL 8.5-10.1 Serum or plasma phosphate measurement (m ass/volume) - 07/20/19 04:58 Serum or plasma phosphate measurement (mass/volume) 2.9 mg/dL 2.3-4.7 Magnesium - 07/20/19 04:58 Magnesium 2.1 mg/dL 1.6-2.4 Capillary blood glucose measurement by g lucometer (mass/volume) - 07/20/19 05:19 Capillary blood glucose measurement by glucometer (mas s/volume) 225 mg/dL 70-110 Capillary blood glucose measurement by g lucometer (mass/volume) - 07/20/19 11:29 Capillary blood glucose measurement by glucometer (mas s/volume) 288 mg/dL 70-110 Capillary blood glucose measurement by g lucometer (mass/volume) - 07/20/19 15:36 Capillary blood glucose measurement by glucometer (mas s/volume) 215 mg/dL 70-110 Capillary blood glucose measurement by g lucometer (mass/volume) - 07/20/19 20:09 Capillary blood glucose measurement by glucometer (mas s/volume) 479 mg/dL 70-110 Complete blood count (CBC) with automate d white blood cell (WBC) differential - 07/21/19 05:14 Blood leukocytes automated count (number/volume) 5.5 10*3/uL 4.3-11.0 Blood erythrocytes automated count (number/volume) 4.47 10*6/uL 4.35-5.85 Venous blood hemoglobin measurement (mass/volume) 12.3 g/dL 11.5-16.0 Blood hematocrit (volume fraction) 41 % 35-52 Automated erythrocyte mean corpuscular volume 92 [ foz_us] 80-99 Automated erythrocyte mean corpuscular h emoglobin (mass per erythrocyte) 28 pg 25-34 Automated erythrocyte mean corpuscular h emoglobin concentration measurement (mass/volume) 30 g/dL 32-36 Automated erythrocyte distribution width ratio 14. 2 % 10.0- 14.5 Automated blood platelet count (count/volume) 196 10*3/uL 130-400 Automated blood platelet mean volume measurement 9.3 [foz_us] 7.4-10.4 Automated blood neutrophils/100 leukocytes 78 % 42-75 Automated blood lymphocytes/100 leukocytes 14 % 12-44 Blood monocytes/100 leukocytes 8 % 0-12 Automated blood eosinophils/100 leukocytes 0 % 0-10 Automated blood basophils/100 leukocytes 0 % 0-10 Blood neutrophils automated count (number/volume) 4.3 10*3 1.8-7.8 Blood lymphocytes automated count (number/volume) 0.8 10*3 1.0-4.0 Blood monocytes automated count (number/volume) 0. 4 10*3 0.0-1.0 Automated eosinophil count 0.0 10*3/uL 0 .0-0.3 Automated blood basophil count (count/volume) 0.0 10*3/uL 0.0-0.1 Whole blood basic metabolic panel - 06/23 08/09 05:29 Serum or plasma sodium measurement (moles/volume) 141 mmol/L 135-145 Serum or plasma potassium measurement (moles/volume) 4.4 mmol/L 3.6-5.0 Serum or plasma chloride measurement (moles/volume) 95 mmol/L 98-107 Carbon dioxide 35 mmol/L 21-32 Serum or plasma anion gap determination (moles/volume) 11 mmol/L 5-14 Serum or plasma urea nitrogen measurement (mass/volume ) 22 mg/dL 7-18 Serum or plasma creatinine measurement (mass/volume) 0.78 mg/dL 0.60-1.30 Serum or plasma urea nitrogen/creatinine mass ratio 28 NRG Serum or plasma creatinine measurement w ith calculation of estimated glomerular filtration rate > NRG Serum or plasma glucose measurement (mass/volume) 184 mg/dL 70-105 Serum or plasma calcium measurement (mass/volume) 9.4 mg/dL 8.5-10.1 Serum or plasma phosphate measurement (m ass/volume) - 07/21/19 05:29 Serum or plasma phosphate measurement (mass/volume) 3.1 mg/dL 2.3-4.7 Magnesium - 07/21/19 05:29 Magnesium 2.0 mg/dL 1.6-2.4 Capillary blood glucose measurement by g lucometer (mass/volume) - 07/21/19 05:51 Capillary blood glucose measurement by glucometer (mas s/volume) 166 mg/dL 70-110 Capillary blood glucose measurement by g lucometer (mass/volume) - 07/21/19 10:50 Capillary blood glucose measurement by glucometer (mas s/volume) 185 mg/dL 70-110 Capillary blood glucose measurement by g lucometer (mass/volume) - 07/21/19 15:47 Capillary blood glucose measurement by glucometer (mas s/volume) 324 mg/dL 70-110 Capillary blood glucose measurement by g lucometer (mass/volume) - 07/21/19 20:11 Capillary blood glucose measurement by glucometer (mas s/volume) 138 mg/dL 70-110 Whole blood basic metabolic panel - 08/10 04:44 Serum or plasma sodium measurement (moles/volume) 140 mmol/L 135-145 Serum or plasma potassium measurement (moles/volume) 5.0 mmol/L 3.6-5.0 Serum or plasma chloride measurement (moles/volume) 91 mmol/L 98-107 Carbon dioxide 39 mmol/L 21-32 Serum or plasma anion gap determination (moles/volume) 10 mmol/L 5-14 Serum or plasma urea nitrogen measurement (mass/volume ) 19 mg/dL 7-18 Serum or plasma creatinine measurement (mass/volume) 0.80 mg/dL 0.60-1.30 Serum or plasma urea nitrogen/creatinine mass ratio 24 NRG Serum or plasma creatinine measurement w ith calculation of estimated glomerular filtration rate > NRG Serum or plasma glucose measurement (mass/volume) 178 mg/dL 70-105 Serum or plasma calcium measurement (mass/volume) 9.5 mg/dL 8.5-10.1 Serum or plasma phosphate measurement (m ass/volume) - 07/22/19 04:44 Serum or plasma phosphate measurement (mass/volume) 3.6 mg/dL 2.3-4.7 Magnesium - 07/22/19 04:44 Magnesium 2.1 mg/dL 1.6-2.4 Complete blood count (CBC) with automate d white blood cell (WBC) differential - 07/22/19 04:44 Blood leukocytes automated count (number/volume) 5.7 10*3/uL 4.3-11.0 Blood erythrocytes automated count (number/volume) 4.57 10*6/uL 4.35-5.85 Venous blood hemoglobin measurement (mass/volume) 12.9 g/dL 11.5-16.0 Blood hematocrit (volume fraction) 42 % 35-52 Automated erythrocyte mean corpuscular volume 92 [ foz_us] 80-99 Automated erythrocyte mean corpuscular h emoglobin (mass per erythrocyte) 28 pg 25-34 Automated erythrocyte mean corpuscular h emoglobin concentration measurement (mass/volume) 31 g/dL 32-36 Automated erythrocyte distribution width ratio 13. 8 % 10.0- 14.5 Automated blood platelet count (count/volume) 207 10*3/uL 130-400 Automated blood platelet mean volume measurement 9.5 [foz_us] 7.4-10.4 Automated blood neutrophils/100 leukocytes 81 % 42-75 Automated blood lymphocytes/100 leukocytes 13 % 12-44 Blood monocytes/100 leukocytes 6 % 0-12 Automated blood eosinophils/100 leukocytes 0 % 0-10 Automated blood basophils/100 leukocytes 0 % 0-10 Blood neutrophils automated count (number/volume) 4.7 10*3 1.8-7.8 Blood lymphocytes automated count (number/volume) 0.8 10*3 1.0-4.0 Blood monocytes automated count (number/volume) 0. 3 10*3 0.0-1.0 Automated eosinophil count 0.0 10*3/uL 0 .0-0.3 Automated blood basophil count (count/volume) 0.0 10*3/uL 0.0-0.1 Capillary blood glucose measurement by g lucometer (mass/volume) - 07/22/19 10:56 Capillary blood glucose measurement by glucometer (mas s/volume) 209 mg/dL 70-110 Capillary blood glucose measurement by g lucometer (mass/volume) - 07/23/19 05:29 Capillary blood glucose measurement by glucometer (mas s/volume) 230 mg/dL 70-110 Complete blood count (CBC) with automate d white blood cell (WBC) differential - 07/23/19 05:54 Blood leukocytes automated count (number/volume) 8.4 10*3/uL 4.3-11.0 Blood erythrocytes automated count (number/volume) 4.92 10*6/uL 4.35-5.85 Venous blood hemoglobin measurement (mass/volume) 13.8 g/dL 11.5-16.0 Blood hematocrit (volume fraction) 45 % 35-52 Automated erythrocyte mean corpuscular volume 91 [ foz_us] 80-99 Automated erythrocyte mean corpuscular h emoglobin (mass per erythrocyte) 28 pg 25-34 Automated erythrocyte mean corpuscular h emoglobin concentration measurement (mass/volume) 31 g/dL 32-36 Automated erythrocyte distribution width ratio 14. 2 % 10.0- 14.5 Automated blood platelet count (count/volume) 194 10*3/uL 130-400 Automated blood platelet mean volume measurement 9.2 [foz_us] 7.4-10.4 Automated blood neutrophils/100 leukocytes 85 % 42-75 Automated blood lymphocytes/100 leukocytes 10 % 12-44 Blood monocytes/100 leukocytes 4 % 0-12 Automated blood eosinophils/100 leukocytes 0 % 0-10 Automated blood basophils/100 leukocytes 0 % 0-10 Blood neutrophils automated count (number/volume) 7.2 10*3 1.8-7.8 Blood lymphocytes automated count (number/volume) 0.9 10*3 1.0-4.0 Blood monocytes automated count (number/volume) 0. 4 10*3 0.0-1.0 Automated eosinophil count 0.0 10*3/uL 0 .0-0.3 Automated blood basophil count (count/volume) 0.0 10*3/uL 0.0-0.1 Whole blood basic metabolic panel - 09/10 05:54 Serum or plasma sodium measurement (moles/volume) 138 mmol/L 135-145 Serum or plasma potassium measurement (moles/volume) 4.9 mmol/L 3.6-5.0 Serum or plasma chloride measurement (moles/volume) 90 mmol/L 98-107 Carbon dioxide 36 mmol/L 21-32 Serum or plasma anion gap determination (moles/volume) 12 mmol/L 5-14 Serum or plasma urea nitrogen measurement (mass/volume ) 24 mg/dL 7-18 Serum or plasma creatinine measurement (mass/volume) 0.83 mg/dL 0.60-1.30 Serum or plasma urea nitrogen/creatinine mass ratio 29 NRG Serum or plasma creatinine measurement w ith calculation of estimated glomerular filtration rate > NRG Serum or plasma glucose measurement (mass/volume) 229 mg/dL 70-105 Serum or plasma calcium measurement (mass/volume) 9.0 mg/dL 8.5-10.1 Serum or plasma phosphate measurement (m ass/volume) - 07/23/19 05:54 Serum or plasma phosphate measurement (mass/volume) 3.6 mg/dL 2.3-4.7 Magnesium - 07/23/19 05:54 Magnesium 2.3 mg/dL 1.6-2.4 Capillary blood glucose measurement by g lucometer (mass/volume) - 07/23/19 10:49 Capillary blood glucose measurement by glucometer (mas s/volume) 219 mg/dL 70-110 Complete blood count (CBC) with automate d white blood cell (WBC) differential - 08/22/19 14:50 Blood leukocytes automated count (number/volume) 10.7 10*3/uL 4.3-11.0 Blood erythrocytes automated count (number/volume) 4.72 10*6/uL 4.35-5.85 Venous blood hemoglobin measurement (mass/volume) 13.6 g/dL 11.5-16.0 Blood hematocrit (volume fraction) 43 % 35-52 Automated erythrocyte mean corpuscular volume 92 [ foz_us] 80-99 Automated erythrocyte mean corpuscular h emoglobin (mass per erythrocyte) 29 pg 25-34 Automated erythrocyte mean corpuscular h emoglobin concentration measurement (mass/volume) 31 g/dL 32-36 Automated erythrocyte distribution width ratio 16. 7 % 10.0- 14.5 Automated blood platelet count (count/volume) 229 10*3/uL 130-400 Automated blood platelet mean volume measurement 9.7 [foz_us] 7.4-10.4 Automated blood neutrophils/100 leukocytes 85 % 42-75 Automated blood lymphocytes/100 leukocytes 10 % 12-44 Blood monocytes/100 leukocytes 5 % 0-12 Automated blood eosinophils/100 leukocytes 0 % 0-10 Automated blood basophils/100 leukocytes 0 % 0-10 Blood neutrophils automated count (number/volume) 9.1 10*3 1.8-7.8 Blood lymphocytes automated count (number/volume) 1.1 10*3 1.0-4.0 Blood monocytes automated count (number/volume) 0. 5 10*3 0.0-1.0 Automated eosinophil count 0.0 10*3/uL 0 .0-0.3 Automated blood basophil count (count/volume) 0.0 10*3/uL 0.0-0.1 Comprehensive metabolic panel - 08/22/19 14:50 Serum or plasma sodium measurement (moles/volume) 137 mmol/L 135-145 Serum or plasma potassium measurement (moles/volume) 3.9 mmol/L 3.6-5.0 Serum or plasma chloride measurement (moles/volume) 89 mmol/L 98-107 Carbon dioxide 31 mmol/L 21-32 Serum or plasma anion gap determination (moles/volume) 17 mmol/L 5-14 Serum or plasma urea nitrogen measurement (mass/volume ) 8 mg/dL 7-18 Serum or plasma creatinine measurement (mass/volume) 0.86 mg/dL 0.60-1.30 Serum or plasma urea nitrogen/creatinine mass ratio 9 NRG Serum or plasma creatinine measurement w ith calculation of estimated glomerular filtration rate > NRG Serum or plasma glucose measurement (mass/volume) 328 mg/dL 70-105 Serum or plasma calcium measurement (mass/volume) 10.6 mg/dL 8.5-10.1 Serum or plasma total bilirubin measurement (mass/volu me) 0.3 mg/dL 0.1-1.0 Serum or plasma alkaline phosphatase moe surement (enzymatic activity/volume) 153 U/L 40-136 Serum or plasma aspartate aminotransfera se measurement (enzymatic activity/volume) 9 U/L 5-34 Serum or plasma alanine aminotransferase measurement (enzymatic activity/volume) 10 U/L 0-55 Serum or plasma protein measurement (mass/volume) 7.9 g/dL 6.4-8.2 Serum or plasma albumin measurement (mass/volume) 3.4 g/dL 3.2-4.5 CALCIUM CORRECTED 11.1 mg/dL 8.5-10.1 Serum or plasma C reactive protein measu rement (mass/volume) - 08/22/19 14:50 Serum or plasma C reactive protein measurement (mass/v olume) 30.26 mg/dL 0.00-0.50 Complete blood count (CBC) with automate d white blood cell (WBC) differential - 09/11/19 22:50 Blood leukocytes automated count (number/volume) 10.2 10*3/uL 4.3-11.0 Blood erythrocytes automated count (number/volume) 4.81 10*6/uL 4.35-5.85 Venous blood hemoglobin measurement (mass/volume) 13.9 g/dL 11.5-16.0 Blood hematocrit (volume fraction) 48 % 35-52 Automated erythrocyte mean corpuscular volume 99 [ foz_us] 80-99 Automated erythrocyte mean corpuscular h emoglobin (mass per erythrocyte) 29 pg 25-34 Automated erythrocyte mean corpuscular h emoglobin concentration measurement (mass/volume) 29 g/dL 32-36 Automated erythrocyte distribution width ratio 17. 6 % 10.0- 14.5 Automated blood platelet count (count/volume) 224 10*3/uL 130-400 Automated blood platelet mean volume measurement 9.6 [foz_us] 7.4-10.4 Automated blood neutrophils/100 leukocytes 81 % 42-75 Automated blood lymphocytes/100 leukocytes 14 % 12-44 Blood monocytes/100 leukocytes 6 % 0-12 Automated blood eosinophils/100 leukocytes 0 % 0-10 Automated blood basophils/100 leukocytes 0 % 0-10 Blood neutrophils automated count (number/volume) 8.3 10*3 1.8-7.8 Blood lymphocytes automated count (number/volume) 1.4 10*3 1.0-4.0 Blood monocytes automated count (number/volume) 0. 6 10*3 0.0-1.0 Automated eosinophil count 0.0 10*3/uL 0 .0-0.3 Automated blood basophil count (count/volume) 0.0 10*3/uL 0.0-0.1 Blood lactic acid measurement (moles/vol ume) - 09/11/19 22:50 Blood lactic acid measurement (moles/volume) 2.12 mmol/L 0.50-2.00 Comprehensive metabolic panel - 09/11/19 22:50 Serum or plasma sodium measurement (moles/volume) 138 mmol/L 135-145 Serum or plasma potassium measurement (moles/volume) 5.3 mmol/L 3.6-5.0 Serum or plasma chloride measurement (moles/volume) 86 mmol/L 98-107 Carbon dioxide 39 mmol/L 21-32 Serum or plasma anion gap determination (moles/volume) 13 mmol/L 5-14 Serum or plasma urea nitrogen measurement (mass/volume ) 10 mg/dL 7-18 Serum or plasma creatinine measurement (mass/volume) 1.01 mg/dL 0.60-1.30 Serum or plasma urea nitrogen/creatinine mass ratio 10 NRG Serum or plasma creatinine measurement w ith calculation of estimated glomerular filtration rate 57 NRG Serum or plasma glucose measurement (mass/volume) 363 mg/dL 70-105 Serum or plasma calcium measurement (mass/volume) 9.8 mg/dL 8.5-10.1 Serum or plasma total bilirubin measurement (mass/volu me) 0.2 mg/dL 0.1-1.0 Serum or plasma alkaline phosphatase moe surement (enzymatic activity/volume) 133 U/L 40-136 Serum or plasma aspartate aminotransfera se measurement (enzymatic activity/volume) 12 U/L 5-34 Serum or plasma alanine aminotransferase measurement (enzymatic activity/volume) 9 U/L 0-55 Serum or plasma protein measurement (mass/volume) 8.4 g/dL 6.4-8.2 Serum or plasma albumin measurement (mass/volume) 3.7 g/dL 3.2-4.5 CALCIUM CORRECTED 10.0 mg/dL 8.5-10.1 PT panel in platelet poor plasma by coag ulation assay - 09/11/19 22:50 Prothrombin time (PT) in platelet poor plasma by coagu lation assay 12.6 s 12.2-14.7 INR in platelet poor plasma or blood by coagulation as say 0.9 0.8-1.4 Activated partial thromboplastin time (a PTT) in platelet poor plasma bycoagulation assay - 09/11/19 22:50 Activated partial thromboplastin time (a PTT) in platelet poor plasma bycoagulation assay 21 s 24-35 Serum or plasma troponin i.cardiac measu rement (mass/volume) - 09/11/19 22:50 Serum or plasma troponin i.cardiac measurement (mass/v olume) 0.111 ng/mL <0.028 Bacterial blood culture - 09/11/19 22:50 Bacterial blood culture NG NRG Complete urinalysis with reflex to cultu re - 09/11/19 23:00 Urine color determination YELLOW NRG Urine clarity determination SL CLOUDY N RG Urine pH measurement by test strip 6.0 5-9 Specific gravity of urine by test strip >= 1.016-1.022 Urine protein assay by test strip, semi-quantitative 2+ NEGATIVE Urine glucose detection by automated test strip 2+ NEGATIVE Erythrocytes detection in urine sediment by light micr oscopy 1+ NEGATIVE Urine ketones detection by automated test strip NE GATIVE NEGATIVE Urine nitrite detection by test strip POSITIVE NEGATIVE Urine total bilirubin detection by test strip NEGA TIVE NEGATIVE Urine urobilinogen measurement by automated test strip (mass/volume) 0.2 mg/dL < = 1.0 Urine leukocyte esterase detection by dipstick NEG ATIVE NEGATIVE Automated urine sediment erythrocyte cou nt by microscopy (number/high power field) [HPF] NRG Automated urine sediment leukocyte count by microscopy (number/high power field) [HPF] NRG Bacteria detection in urine sediment by light microsco py LARGE NRG Squamous epithelial cells detection in u rine sediment by light microscopy 10-25 NRG Crystals detection in urine sediment by light microsco py NONE NRG Casts detection in urine sediment by light microscopy NONE NRG Mucus detection in urine sediment by light microscopy NEGATIVE NRG Complete urinalysis with reflex to culture CULTURE PENDING NRG Bacterial urine culture - 09/11/19 23:00 Bacterial urine culture [id number] NRG COLONY COUNT 50,000 CFU/ML NRG FTX;REPORTABLE SUSCEPTIBILITY REPORTED 09/15/19 14: 05 NRG Dirithromycin susceptibility test by dis k diffusion - 09/11/19 23:00 Gentamicin susceptibility test by minimum inhibitory c oncentration <= NRG Trimethoprim/sulfamethoxazole susceptibi lity test by minimum inhibitoryconcentration > NRG Levofloxacin susceptibility test by minimum inhibitory concentration <= NRG Ampicillin susceptibility test by minimum inhibitory c oncentration > NRG Cefazolin susceptibility test by minimum inhibitory co ncentration > NRG Ceftriaxone susceptibility test by minimum inhibitory concentration <= NRG Piperacillin/tazobactam susceptibility t est by minimum inhibitory concentration S NRG Ciprofloxacin susceptibility test by minimum inhibitor y concentration 1 NRG Meropenem susceptibility test by minimum inhibitory co ncentration <= NRG Nitrofurantoin susceptibility test by nv nimum inhibitory concentration 64 NRG Amoxicillin and clavulanate potassium susc BUSHRA > NRG Dirithromycin susceptibility test by dis k diffusion - 09/11/19 23:00 Gentamicin susceptibility test by minimum inhibitory c oncentration <= NRG Trimethoprim/sulfamethoxazole susceptibi lity test by minimum inhibitoryconcentration <= NRG Levofloxacin susceptibility test by minimum inhibitory concentration <= NRG Ampicillin susceptibility test by minimum inhibitory c oncentration > NRG Cefazolin susceptibility test by minimum inhibitory co ncentration 8 NRG Ceftriaxone susceptibility test by minimum inhibitory concentration <= NRG Ciprofloxacin susceptibility test by minimum inhibitor y concentration <= NRG Meropenem susceptibility test by minimum inhibitory co ncentration <= NRG Nitrofurantoin susceptibility test by mi nimum inhibitory concentration <= NRG Amoxicillin and clavulanate potassium susc BUSHRA <= NRG Dirithromycin susceptibility test by dis k diffusion - 09/11/19 23:00 Gentamicin susceptibility test by minimum inhibitory c oncentration <= NRG Trimethoprim/sulfamethoxazole susceptibi lity test by minimum inhibitoryconcentration <= NRG Levofloxacin susceptibility test by minimum inhibitory concentration <= NRG Ampicillin susceptibility test by minimum inhibitory c oncentration R NRG Cefazolin susceptibility test by minimum inhibitory co ncentration <= NRG Ceftriaxone susceptibility test by minimum inhibitory concentration <= NRG Ciprofloxacin susceptibility test by minimum inhibitor y concentration <= NRG Meropenem susceptibility test by minimum inhibitory co ncentration <= NRG Nitrofurantoin susceptibility test by mi nimum inhibitory concentration <= NRG Amoxicillin and clavulanate potassium susc BUSHRA <= NRG Influenza virus A and B antigen detectio n - 09/11/19 23:08 FLU RESULT NEGATIVE FOR INFLUENZA A AND B ANTIGENS BY IA NRG Bacterial blood culture - 09/11/19 23:24 Bacterial blood culture NG NRG Arterial blood gas measurement - 0 23:25 Blood pCO2 81 mm[Hg] 35-45 Blood pO2 60 mm[Hg] 79-93 Arterial blood bicarbonate measurement (moles/volume) 42 mmol/L 23-27 Arterial blood base excess by calculation 15.6 mmo l/L -2.5-2.5 Arterial blood oxygen saturation measurement 91 % 94-100 * Inhaled oxygen flow rate 60% NRG Arterial blood pH measurement with patient temperature correction 7.33 7.37-7.43 Arterial blood carbon dioxide, total measurement (mole s/volume) 45.0 mmol/L 21.0-31.0 Body site RIGHT RADIAL NRG Assessment of wrist artery patency prior to arterial p uncture YES-POS NRG Setting of ventilation mode YES NR G Measurement of body temperature 35.8 NRG Bacterial sputum culture - 09/11/19 23:3 0 QUANTITY OF GROWTH SMALL AMOUNT NRG Bacterial sputum culture USUAL RESP NRG Serum or plasma lactate measurement (mol es/volume) - 09/12/19 00:58 Serum or plasma lactate measurement (moles/volume) 1.79 mmol/L 0.50-2.00 Methicillin resistant Staphylococcus aur eus (MRSA) screening culture - 09/12/19 02:00 Methicillin resistant Staphylococcus aureus (MRSA) scr eening culture NEG NRG Complete blood count (CBC) with automate d white blood cell (WBC) differential - 09/12/19 03:38 Blood leukocytes automated count (number/volume) 10.5 10*3/uL 4.3-11.0 Blood erythrocytes automated count (number/volume) 4.33 10*6/uL 4.35-5.85 Venous blood hemoglobin measurement (mass/volume) 12.7 g/dL 11.5-16.0 Blood hematocrit (volume fraction) 42 % 35-52 Automated erythrocyte mean corpuscular volume 98 [ foz_us] 80-99 Automated erythrocyte mean corpuscular h emoglobin (mass per erythrocyte) 29 pg 25-34 Automated erythrocyte mean corpuscular h emoglobin concentration measurement (mass/volume) 30 g/dL 32-36 Automated erythrocyte distribution width ratio 17. 4 % 10.0- 14.5 Automated blood platelet count (count/volume) 203 10*3/uL 130-400 Automated blood platelet mean volume measurement 9.5 [foz_us] 7.4-10.4 Automated blood neutrophils/100 leukocytes 93 % 42-75 Automated blood lymphocytes/100 leukocytes 6 % 12-44 Blood monocytes/100 leukocytes 1 % 0-12 Automated blood eosinophils/100 leukocytes 0 % 0-10 Automated blood basophils/100 leukocytes 0 % 0-10 Blood neutrophils automated count (number/volume) 9.7 10*3 1.8-7.8 Blood lymphocytes automated count (number/volume) 0.7 10*3 1.0-4.0 Blood monocytes automated count (number/volume) 0. 1 10*3 0.0-1.0 Automated eosinophil count 0.0 10*3/uL 0 .0-0.3 Automated blood basophil count (count/volume) 0.0 10*3/uL 0.0-0.1 Comprehensive metabolic panel - 09/12/19 03:38 Serum or plasma sodium measurement (moles/volume) 136 mmol/L 135-145 Serum or plasma potassium measurement (moles/volume) 5.5 mmol/L 3.6-5.0 Serum or plasma chloride measurement (moles/volume) 94 mmol/L 98-107 Carbon dioxide 32 mmol/L 21-32 Serum or plasma anion gap determination (moles/volume) 10 mmol/L 5-14 Serum or plasma urea nitrogen measurement (mass/volume ) 11 mg/dL 7-18 Serum or plasma creatinine measurement (mass/volume) 0.80 mg/dL 0.60-1.30 Serum or plasma urea nitrogen/creatinine mass ratio 14 NRG Serum or plasma creatinine measurement w ith calculation of estimated glomerular filtration rate > NRG Serum or plasma glucose measurement (mass/volume) 301 mg/dL 70-105 Serum or plasma calcium measurement (mass/volume) 8.6 mg/dL 8.5-10.1 Serum or plasma total bilirubin measurement (mass/volu me) 0.4 mg/dL 0.1-1.0 Serum or plasma alkaline phosphatase moe surement (enzymatic activity/volume) 109 U/L 40-136 Serum or plasma aspartate aminotransfera se measurement (enzymatic activity/volume) 11 U/L 5-34 Serum or plasma alanine aminotransferase measurement (enzymatic activity/volume) 8 U/L 0-55 Serum or plasma protein measurement (mass/volume) 6.9 g/dL 6.4-8.2 Serum or plasma albumin measurement (mass/volume) 3.0 g/dL 3.2-4.5 CALCIUM CORRECTED 9.4 mg/dL 8.5-10.1 Serum or plasma phosphate measurement (m ass/volume) - 09/12/19 03:38 Serum or plasma phosphate measurement (mass/volume) 1.8 mg/dL 2.3-4.7 Magnesium - 09/12/19 03:38 Magnesium 1.7 mg/dL 1.6-2.4 Serum or plasma lithium measurement (mol es/volume) - 09/12/19 03:38 BNP PT 640.0 pg/mL <100.0 Arterial blood gas measurement - 0 04:05 Blood pCO2 63 mm[Hg] 35-45 Blood pO2 71 mm[Hg] 79-93 Arterial blood bicarbonate measurement (moles/volume) 39 mmol/L 23-27 Arterial blood base excess by calculation 13.6 mmo l/L -2.5-2.5 Arterial blood oxygen saturation measurement 95 % 94-100 * Inhaled oxygen flow rate 50% NRG Arterial blood pH measurement with patient temperature correction 7.40 7.37-7.43 Arterial blood carbon dioxide, total measurement (mole s/volume) 41.0 mmol/L 21.0-31.0 Body site LEFT RADIAL NRG Assessment of wrist artery patency prior to arterial p uncture YES-POS NRG Setting of ventilation mode YES NR G Measurement of body temperature 36.8 NRG Serum or plasma troponin i.cardiac measu rement (mass/volume) - 09/12/19 05:08 Serum or plasma troponin i.cardiac measurement (mass/v olume) 0.097 ng/mL <0.028 Capillary blood glucose measurement by g lucometer (mass/volume) - 09/12/19 07:33 Capillary blood glucose measurement by glucometer (mas s/volume) 304 mg/dL 70-110 Arterial blood gas measurement - 0 08:26 Blood pCO2 67 mm[Hg] 35-45 Blood pO2 61 mm[Hg] 79-93 Arterial blood bicarbonate measurement (moles/volume) 39 mmol/L 23-27 Arterial blood base excess by calculation 13.3 mmo l/L -2.5-2.5 Arterial blood oxygen saturation measurement 93 % 94-100 * Inhaled oxygen flow rate 50% NRG Arterial blood pH measurement with patient temperature correction 7.38 7.37-7.43 Arterial blood carbon dioxide, total measurement (mole s/volume) 41.2 mmol/L 21.0-31.0 Body site LEFT RADIAL NRG Assessment of wrist artery patency prior to arterial p uncture POSITIVE NRG Setting of ventilation mode YES NR G Measurement of body temperature 36.4 NRG Serum or plasma troponin i.cardiac measu rement (mass/volume) - 09/12/19 10:24 Serum or plasma troponin i.cardiac measurement (mass/v olume) 0.055 ng/mL <0.028 Capillary blood glucose measurement by g lucometer (mass/volume) - 09/12/19 11:35 Capillary blood glucose measurement by glucometer (mas s/volume) 317 mg/dL 70-110 Capillary blood glucose measurement by g lucometer (mass/volume) - 09/12/19 17:24 Capillary blood glucose measurement by glucometer (mas s/volume) 253 mg/dL 70-110 Capillary blood glucose measurement by g lucometer (mass/volume) - 09/13/19 00:44 Capillary blood glucose measurement by glucometer (mas s/volume) 263 mg/dL 70-110 Complete blood count (CBC) with automate d white blood cell (WBC) differential - 09/13/19 03:19 Blood leukocytes automated count (number/volume) 7.1 10*3/uL 4.3-11.0 Blood erythrocytes automated count (number/volume) 4.22 10*6/uL 4.35-5.85 Venous blood hemoglobin measurement (mass/volume) 12.2 g/dL 11.5-16.0 Blood hematocrit (volume fraction) 40 % 35-52 Automated erythrocyte mean corpuscular volume 96 [ foz_us] 80-99 Automated erythrocyte mean corpuscular h emoglobin (mass per erythrocyte) 29 pg 25-34 Automated erythrocyte mean corpuscular h emoglobin concentration measurement (mass/volume) 30 g/dL 32-36 Automated erythrocyte distribution width ratio 16. 8 % 10.0- 14.5 Automated blood platelet count (count/volume) 173 10*3/uL 130-400 Automated blood platelet mean volume measurement 9.3 [foz_us] 7.4-10.4 Automated blood neutrophils/100 leukocytes 88 % 42-75 Automated blood lymphocytes/100 leukocytes 8 % 12-44 Blood monocytes/100 leukocytes 4 % 0-12 Automated blood eosinophils/100 leukocytes 0 % 0-10 Automated blood basophils/100 leukocytes 0 % 0-10 Blood neutrophils automated count (number/volume) 6.3 10*3 1.8-7.8 Blood lymphocytes automated count (number/volume) 0.6 10*3 1.0-4.0 Blood monocytes automated count (number/volume) 0. 3 10*3 0.0-1.0 Automated eosinophil count 0.0 10*3/uL 0 .0-0.3 Automated blood basophil count (count/volume) 0.0 10*3/uL 0.0-0.1 Arterial blood gas measurement - 0 03:19 Blood pCO2 63 mm[Hg] 35-45 Blood pO2 78 mm[Hg] 79-93 Arterial blood bicarbonate measurement (moles/volume) 37 mmol/L 23-27 Arterial blood base excess by calculation 11.7 mmo l/L -2.5-2.5 Arterial blood oxygen saturation measurement 93 % 94-100 * Inhaled oxygen flow rate 55% NRG Arterial blood pH measurement with patient temperature correction 7.39 7.37-7.43 Arterial blood carbon dioxide, total measurement (mole s/volume) 38.7 mmol/L 21.0-31.0 Body site LEFT RADIAL NRG Assessment of wrist artery patency prior to arterial p uncture YES-POS NRG Setting of ventilation mode YES NR G Measurement of body temperature 38.3 NRG Whole blood basic metabolic panel - 08/23 10/08 03:19 Serum or plasma sodium measurement (moles/volume) 143 mmol/L 135-145 Serum or plasma potassium measurement (moles/volume) 4.8 mmol/L 3.6-5.0 Serum or plasma chloride measurement (moles/volume) 102 mmol/L 98-107 Carbon dioxide 34 mmol/L 21-32 Serum or plasma anion gap determination (moles/volume) 7 mmol/L 5-14 Serum or plasma urea nitrogen measurement (mass/volume ) 15 mg/dL 7-18 Serum or plasma creatinine measurement (mass/volume) 0.85 mg/dL 0.60-1.30 Serum or plasma urea nitrogen/creatinine mass ratio 18 NRG Serum or plasma creatinine measurement w ith calculation of estimated glomerular filtration rate > NRG Serum or plasma glucose measurement (mass/volume) 224 mg/dL 70-105 Serum or plasma calcium measurement (mass/volume) 9.4 mg/dL 8.5-10.1 Serum or plasma phosphate measurement (m ass/volume) - 09/13/19 03:19 Serum or plasma phosphate measurement (mass/volume) 3.2 mg/dL 2.3-4.7 Magnesium - 09/13/19 03:19 Magnesium 2.1 mg/dL 1.6-2.4 Capillary blood glucose measurement by g lucometer (mass/volume) - 09/13/19 11:20 Capillary blood glucose measurement by glucometer (mas s/volume) 182 mg/dL 70-110 Influenza virus A and B antigen detectio n - 09/13/19 12:50 FLU RESULT NEGATIVE FOR INFLUENZA A AND B ANTIGENS BY IA NRG Vancomycin trough - 09/13/19 15:15 Vancomycin trough 23.8 ug/mL 10.0-20.0 Capillary blood glucose measurement by g lucometer (mass/volume) - 09/13/19 17:29 Capillary blood glucose measurement by glucometer (mas s/volume) 244 mg/dL 70-110 Capillary blood glucose measurement by g lucometer (mass/volume) - 09/14/19 00:25 Capillary blood glucose measurement by glucometer (mas s/volume) 225 mg/dL 70-110 Complete blood count (CBC) with automate d white blood cell (WBC) differential - 09/14/19 02:50 Blood leukocytes automated count (number/volume) 6.2 10*3/uL 4.3-11.0 Blood erythrocytes automated count (number/volume) 4.35 10*6/uL 4.35-5.85 Venous blood hemoglobin measurement (mass/volume) 12.5 g/dL 11.5-16.0 Blood hematocrit (volume fraction) 41 % 35-52 Automated erythrocyte mean corpuscular volume 95 [ foz_us] 80-99 Automated erythrocyte mean corpuscular h emoglobin (mass per erythrocyte) 29 pg 25-34 Automated erythrocyte mean corpuscular h emoglobin concentration measurement (mass/volume) 30 g/dL 32-36 Automated erythrocyte distribution width ratio 16. 8 % 10.0- 14.5 Automated blood platelet count (count/volume) 173 10*3/uL 130-400 Automated blood platelet mean volume measurement 9.5 [foz_us] 7.4-10.4 Automated blood neutrophils/100 leukocytes 86 % 42-75 Automated blood lymphocytes/100 leukocytes 9 % 12-44 Blood monocytes/100 leukocytes 5 % 0-12 Automated blood eosinophils/100 leukocytes 0 % 0-10 Automated blood basophils/100 leukocytes 0 % 0-10 Blood neutrophils automated count (number/volume) 5.3 10*3 1.8-7.8 Blood lymphocytes automated count (number/volume) 0.5 10*3 1.0-4.0 Blood monocytes automated count (number/volume) 0. 3 10*3 0.0-1.0 Automated eosinophil count 0.0 10*3/uL 0 .0-0.3 Automated blood basophil count (count/volume) 0.0 10*3/uL 0.0-0.1 Whole blood basic metabolic panel - 08/23 11/08 02:50 Serum or plasma sodium measurement (moles/volume) 140 mmol/L 135-145 Serum or plasma potassium measurement (moles/volume) 4.6 mmol/L 3.6-5.0 Serum or plasma chloride measurement (moles/volume) 102 mmol/L 98-107 Carbon dioxide 29 mmol/L 21-32 Serum or plasma anion gap determination (moles/volume) 9 mmol/L 5-14 Serum or plasma urea nitrogen measurement (mass/volume ) 17 mg/dL 7-18 Serum or plasma creatinine measurement (mass/volume) 0.78 mg/dL 0.60-1.30 Serum or plasma urea nitrogen/creatinine mass ratio 22 NRG Serum or plasma creatinine measurement w ith calculation of estimated glomerular filtration rate > NRG Serum or plasma glucose measurement (mass/volume) 243 mg/dL 70-105 Serum or plasma calcium measurement (mass/volume) 9.3 mg/dL 8.5-10.1 Serum or plasma phosphate measurement (m ass/volume) - 09/14/19 02:50 Serum or plasma phosphate measurement (mass/volume) 4.0 mg/dL 2.3-4.7 Magnesium - 09/14/19 02:50 Magnesium 2.0 mg/dL 1.6-2.4 Arterial blood gas measurement - 0 03:00 Blood pCO2 53 mm[Hg] 35-45 Blood pO2 69 mm[Hg] 79-93 Arterial blood bicarbonate measurement (moles/volume) 33 mmol/L 23-27 Arterial blood base excess by calculation 8.3 mmol /L -2.5-2.5 Arterial blood oxygen saturation measurement 93 % 94-100 * Inhaled oxygen flow rate 45% NRG Arterial blood pH measurement with patient temperature correction 7.41 7.37-7.43 Arterial blood carbon dioxide, total measurement (mole s/volume) 34.9 mmol/L 21.0-31.0 Body site LEFT RADIAL NRG Assessment of wrist artery patency prior to arterial p uncture YES-POS NRG Setting of ventilation mode YES NR G Measurement of body temperature 36.2 NRG Vancomycin trough - 09/14/19 05:55 Vancomycin trough 6.4 ug/mL 10.0-20.0 Urine Legionella pneumophila antigen ass ay - 09/14/19 08:16 Urine Legionella pneumophila antigen assay Negativ e NRG Streptococcus pneumoniae antigen detecti on - 09/14/19 08:16 Streptococcus pneumoniae antigen detection Negativ e NRG Arterial blood gas measurement - 0 09:00 Blood pCO2 52 mm[Hg] 35-45 Blood pO2 55 mm[Hg] 79-93 Arterial blood bicarbonate measurement (moles/volume) 37 mmol/L 23-27 Arterial blood base excess by calculation 12.1 mmo l/L -2.5-2.5 Arterial blood oxygen saturation measurement 83 % 94-100 * Inhaled oxygen flow rate RESP RATE 17/ O2 40% NRG Arterial blood pH measurement with patient temperature correction 7.46 7.37-7.43 Arterial blood carbon dioxide, total measurement (mole s/volume) 38.5 mmol/L 21.0-31.0 Body site L RADIAL NRG Assessment of wrist artery patency prior to arterial p uncture YES-POS NRG Setting of ventilation mode YES NR G Measurement of body temperature 36.2 NRG Capillary blood glucose measurement by g lucometer (mass/volume) - 09/14/19 11:16 Capillary blood glucose measurement by glucometer (mas s/volume) 181 mg/dL 70-110 Capillary blood glucose measurement by g lucometer (mass/volume) - 09/14/19 15:45 Capillary blood glucose measurement by glucometer (mas s/volume) 215 mg/dL 70-110 Capillary blood glucose measurement by g lucometer (mass/volume) - 09/14/19 20:03 Capillary blood glucose measurement by glucometer (mas s/volume) 292 mg/dL 70-110 Complete blood count (CBC) with automate d white blood cell (WBC) differential - 09/15/19 03:12 Blood leukocytes automated count (number/volume) 7.7 10*3/uL 4.3-11.0 Blood erythrocytes automated count (number/volume) 4.72 10*6/uL 4.35-5.85 Venous blood hemoglobin measurement (mass/volume) 13.5 g/dL 11.5-16.0 Blood hematocrit (volume fraction) 45 % 35-52 Automated erythrocyte mean corpuscular volume 95 [ foz_us] 80-99 Automated erythrocyte mean corpuscular h emoglobin (mass per erythrocyte) 29 pg 25-34 Automated erythrocyte mean corpuscular h emoglobin concentration measurement (mass/volume) 30 g/dL 32-36 Automated erythrocyte distribution width ratio 17. 0 % 10.0- 14.5 Automated blood platelet count (count/volume) 182 10*3/uL 130-400 Automated blood platelet mean volume measurement 9.3 [foz_us] 7.4-10.4 Automated blood neutrophils/100 leukocytes 89 % 42-75 Automated blood lymphocytes/100 leukocytes 8 % 12-44 Blood monocytes/100 leukocytes 4 % 0-12 Automated blood eosinophils/100 leukocytes 0 % 0-10 Automated blood basophils/100 leukocytes 0 % 0-10 Blood neutrophils automated count (number/volume) 6.8 10*3 1.8-7.8 Blood lymphocytes automated count (number/volume) 0.6 10*3 1.0-4.0 Blood monocytes automated count (number/volume) 0. 3 10*3 0.0-1.0 Automated eosinophil count 0.0 10*3/uL 0 .0-0.3 Automated blood basophil count (count/volume) 0.0 10*3/uL 0.0-0.1 Whole blood basic metabolic panel - 08/23 12/08 03:12 Serum or plasma sodium measurement (moles/volume) 144 mmol/L 135-145 Serum or plasma potassium measurement (moles/volume) 3.9 mmol/L 3.6-5.0 Serum or plasma chloride measurement (moles/volume) 99 mmol/L 98-107 Carbon dioxide 37 mmol/L 21-32 Serum or plasma anion gap determination (moles/volume) 8 mmol/L 5-14 Serum or plasma urea nitrogen measurement (mass/volume ) 19 mg/dL 7-18 Serum or plasma creatinine measurement (mass/volume) 0.78 mg/dL 0.60-1.30 Serum or plasma urea nitrogen/creatinine mass ratio 24 NRG Serum or plasma creatinine measurement w ith calculation of estimated glomerular filtration rate > NRG Serum or plasma glucose measurement (mass/volume) 264 mg/dL 70-105 Serum or plasma calcium measurement (mass/volume) 9.5 mg/dL 8.5-10.1 Serum or plasma phosphate measurement (m ass/volume) - 09/15/19 03:12 Serum or plasma phosphate measurement (mass/volume) 3.4 mg/dL 2.3-4.7 Magnesium - 09/15/19 03:12 Magnesium 2.0 mg/dL 1.6-2.4 Serum or plasma lithium measurement (mol es/volume) - 09/15/19 03:12 BNP PT 267.9 pg/mL <100.0 Capillary blood glucose measurement by g lucometer (mass/volume) - 09/15/19 11:02 Capillary blood glucose measurement by glucometer (mas s/volume) 253 mg/dL 70-110 Capillary blood glucose measurement by g lucometer (mass/volume) - 09/15/19 15:43 Capillary blood glucose measurement by glucometer (mas s/volume) 279 mg/dL 70-110 Capillary blood glucose measurement by g lucometer (mass/volume) - 09/15/19 21:00 Capillary blood glucose measurement by glucometer (mas s/volume) 158 mg/dL 70-110 Capillary blood glucose measurement by g lucometer (mass/volume) - 09/16/19 04:19 Capillary blood glucose measurement by glucometer (mas s/volume) 186 mg/dL 70-110 Complete blood count (CBC) with automate d white blood cell (WBC) differential - 09/16/19 05:57 Blood leukocytes automated count (number/volume) 6.2 10*3/uL 4.3-11.0 Blood erythrocytes automated count (number/volume) 4.50 10*6/uL 4.35-5.85 Venous blood hemoglobin measurement (mass/volume) 12.7 g/dL 11.5-16.0 Blood hematocrit (volume fraction) 43 % 35-52 Automated erythrocyte mean corpuscular volume 96 [ foz_us] 80-99 Automated erythrocyte mean corpuscular h emoglobin (mass per erythrocyte) 28 pg 25-34 Automated erythrocyte mean corpuscular h emoglobin concentration measurement (mass/volume) 29 g/dL 32-36 Automated erythrocyte distribution width ratio 16. 8 % 10.0- 14.5 Automated blood platelet count (count/volume) 153 10*3/uL 130-400 Automated blood platelet mean volume measurement 9.4 [foz_us] 7.4-10.4 Automated blood neutrophils/100 leukocytes 70 % 42-75 Automated blood lymphocytes/100 leukocytes 20 % 12-44 Blood monocytes/100 leukocytes 9 % 0-12 Automated blood eosinophils/100 leukocytes 1 % 0-10 Automated blood basophils/100 leukocytes 0 % 0-10 Blood neutrophils automated count (number/volume) 4.3 10*3 1.8-7.8 Blood lymphocytes automated count (number/volume) 1.2 10*3 1.0-4.0 Blood monocytes automated count (number/volume) 0. 6 10*3 0.0-1.0 Automated eosinophil count 0.1 10*3/uL 0 .0-0.3 Automated blood basophil count (count/volume) 0.0 10*3/uL 0.0-0.1 Whole blood basic metabolic panel - 08/23 01/08 05:57 Serum or plasma sodium measurement (moles/volume) 141 mmol/L 135-145 Serum or plasma potassium measurement (moles/volume) 3.9 mmol/L 3.6-5.0 Serum or plasma chloride measurement (moles/volume) 97 mmol/L 98-107 Carbon dioxide 36 mmol/L 21-32 Serum or plasma anion gap determination (moles/volume) 8 mmol/L 5-14 Serum or plasma urea nitrogen measurement (mass/volume ) 19 mg/dL 7-18 Serum or plasma creatinine measurement (mass/volume) 0.71 mg/dL 0.60-1.30 Serum or plasma urea nitrogen/creatinine mass ratio 27 NRG Serum or plasma creatinine measurement w ith calculation of estimated glomerular filtration rate > NRG Serum or plasma glucose measurement (mass/volume) 179 mg/dL 70-105 Serum or plasma calcium measurement (mass/volume) 9.2 mg/dL 8.5-10.1 Serum or plasma phosphate measurement (m ass/volume) - 09/16/19 05:57 Serum or plasma phosphate measurement (mass/volume) 2.8 mg/dL 2.3-4.7 Magnesium - 09/16/19 05:57 Magnesium 1.8 mg/dL 1.6-2.4 Serum or plasma lithium measurement (mol es/volume) - 09/16/19 05:57 BNP PT 89.1 pg/mL <100.0 Capillary blood glucose measurement by g lucometer (mass/volume) - 09/16/19 11:21 Capillary blood glucose measurement by glucometer (mas s/volume) 171 mg/dL 70-110 Capillary blood glucose measurement by g lucometer (mass/volume) - 09/16/19 16:08 Capillary blood glucose measurement by glucometer (mas s/volume) 198 mg/dL 70-110 Capillary blood glucose measurement by g lucometer (mass/volume) - 09/16/19 20:39 Capillary blood glucose measurement by glucometer (mas s/volume) 247 mg/dL 70-110 Capillary blood glucose measurement by g lucometer (mass/volume) - 09/17/19 05:23 Capillary blood glucose measurement by glucometer (mas s/volume) 265 mg/dL 70-110 Complete blood count (CBC) with automate d white blood cell (WBC) differential - 09/17/19 05:29 Blood leukocytes automated count (number/volume) 6.2 10*3/uL 4.3-11.0 Blood erythrocytes automated count (number/volume) 4.39 10*6/uL 4.35-5.85 Venous blood hemoglobin measurement (mass/volume) 12.4 g/dL 11.5-16.0 Blood hematocrit (volume fraction) 42 % 35-52 Automated erythrocyte mean corpuscular volume 95 [ foz_us] 80-99 Automated erythrocyte mean corpuscular h emoglobin (mass per erythrocyte) 28 pg 25-34 Automated erythrocyte mean corpuscular h emoglobin concentration measurement (mass/volume) 30 g/dL 32-36 Automated erythrocyte distribution width ratio 16. 0 % 10.0- 14.5 Automated blood platelet count (count/volume) 139 10*3/uL 130-400 Automated blood platelet mean volume measurement 10.1 [foz_us] 7.4-10.4 Automated blood neutrophils/100 leukocytes 75 % 42-75 Automated blood lymphocytes/100 leukocytes 16 % 12-44 Blood monocytes/100 leukocytes 7 % 0-12 Automated blood eosinophils/100 leukocytes 3 % 0-10 Automated blood basophils/100 leukocytes 0 % 0-10 Blood neutrophils automated count (number/volume) 4.6 10*3 1.8-7.8 Blood lymphocytes automated count (number/volume) 1.0 10*3 1.0-4.0 Blood monocytes automated count (number/volume) 0. 4 10*3 0.0-1.0 Automated eosinophil count 0.2 10*3/uL 0 .0-0.3 Automated blood basophil count (count/volume) 0.0 10*3/uL 0.0-0.1 Whole blood basic metabolic panel - 08/23 02/07 05:29 Serum or plasma sodium measurement (moles/volume) 140 mmol/L 135-145 Serum or plasma potassium measurement (moles/volume) 4.2 mmol/L 3.6-5.0 Serum or plasma chloride measurement (moles/volume) 93 mmol/L 98-107 Carbon dioxide 41 mmol/L 21-32 Serum or plasma anion gap determination (moles/volume) 6 mmol/L 5-14 Serum or plasma urea nitrogen measurement (mass/volume ) 16 mg/dL 7-18 Serum or plasma creatinine measurement (mass/volume) 0.82 mg/dL 0.60-1.30 Serum or plasma urea nitrogen/creatinine mass ratio 20 NRG Serum or plasma creatinine measurement w ith calculation of estimated glomerular filtration rate > NRG Serum or plasma glucose measurement (mass/volume) 294 mg/dL 70-105 Serum or plasma calcium measurement (mass/volume) 8.9 mg/dL 8.5-10.1 Serum or plasma phosphate measurement (m ass/volume) - 09/17/19 05:29 Serum or plasma phosphate measurement (mass/volume) 2.9 mg/dL 2.3-4.7 Magnesium - 09/17/19 05:29 Magnesium 1.9 mg/dL 1.6-2.4 Capillary blood glucose measurement by g lucometer (mass/volume) - 09/17/19 11:23 Capillary blood glucose measurement by glucometer (mas s/volume) 190 mg/dL 70-110 Capillary blood glucose measurement by g lucometer (mass/volume) - 09/17/19 15:47 Capillary blood glucose measurement by glucometer (mas s/volume) 179 mg/dL 70-110 Capillary blood glucose measurement by g lucometer (mass/volume) - 09/17/19 20:38 Capillary blood glucose measurement by glucometer (mas s/volume) 341 mg/dL 70-110 Capillary blood glucose measurement by g lucometer (mass/volume) - 09/18/19 04:33 Capillary blood glucose measurement by glucometer (mas s/volume) 277 mg/dL 70-110 Complete blood count (CBC) with automate d white blood cell (WBC) differential - 09/18/19 05:45 Blood leukocytes automated count (number/volume) 6.0 10*3/uL 4.3-11.0 Blood erythrocytes automated count (number/volume) 4.33 10*6/uL 4.35-5.85 Venous blood hemoglobin measurement (mass/volume) 12.4 g/dL 11.5-16.0 Blood hematocrit (volume fraction) 41 % 35-52 Automated erythrocyte mean corpuscular volume 96 [ foz_us] 80-99 Automated erythrocyte mean corpuscular h emoglobin (mass per erythrocyte) 29 pg 25-34 Automated erythrocyte mean corpuscular h emoglobin concentration measurement (mass/volume) 30 g/dL 32-36 Automated erythrocyte distribution width ratio 15. 9 % 10.0- 14.5 Automated blood platelet count (count/volume) 143 10*3/uL 130-400 Automated blood platelet mean volume measurement 10.0 [foz_us] 7.4-10.4 Automated blood neutrophils/100 leukocytes 76 % 42-75 Automated blood lymphocytes/100 leukocytes 14 % 12-44 Blood monocytes/100 leukocytes 7 % 0-12 Automated blood eosinophils/100 leukocytes 3 % 0-10 Automated blood basophils/100 leukocytes 0 % 0-10 Blood neutrophils automated count (number/volume) 4.5 10*3 1.8-7.8 Blood lymphocytes automated count (number/volume) 0.9 10*3 1.0-4.0 Blood monocytes automated count (number/volume) 0. 4 10*3 0.0-1.0 Automated eosinophil count 0.2 10*3/uL 0 .0-0.3 Automated blood basophil count (count/volume) 0.0 10*3/uL 0.0-0.1 Whole blood basic metabolic panel - 08/23 03/10 05:45 Serum or plasma sodium measurement (moles/volume) 139 mmol/L 135-145 Serum or plasma potassium measurement (moles/volume) 4.3 mmol/L 3.6-5.0 Serum or plasma chloride measurement (moles/volume) 93 mmol/L 98-107 Carbon dioxide 39 mmol/L 21-32 Serum or plasma anion gap determination (moles/volume) 7 mmol/L 5-14 Serum or plasma urea nitrogen measurement (mass/volume ) 15 mg/dL 7-18 Serum or plasma creatinine measurement (mass/volume) 0.81 mg/dL 0.60-1.30 Serum or plasma urea nitrogen/creatinine mass ratio 19 NRG Serum or plasma creatinine measurement w ith calculation of estimated glomerular filtration rate > NRG Serum or plasma glucose measurement (mass/volume) 252 mg/dL 70-105 Serum or plasma calcium measurement (mass/volume) 9.2 mg/dL 8.5-10.1 Serum or plasma phosphate measurement (m ass/volume) - 09/18/19 05:45 Serum or plasma phosphate measurement (mass/volume) 2.7 mg/dL 2.3-4.7 Magnesium - 09/18/19 05:45 Magnesium 1.8 mg/dL 1.6-2.4 Capillary blood glucose measurement by g lucometer (mass/volume) - 09/18/19 11:01 Capillary blood glucose measurement by glucometer (mas s/volume) 191 mg/dL 70-110 Complete blood count (CBC) with automate d white blood cell (WBC) differential - 12/23/19 22:45 Blood leukocytes automated count (number/volume) 7.9 10*3/uL 4.3-11.0 Blood erythrocytes automated count (number/volume) 4.63 10*6/uL 4.35-5.85 Venous blood hemoglobin measurement (mass/volume) 13.2 g/dL 11.5-16.0 Blood hematocrit (volume fraction) 45 % 35-52 Automated erythrocyte mean corpuscular volume 97 [ foz_us] 80-99 Automated erythrocyte mean corpuscular h emoglobin (mass per erythrocyte) 29 pg 25-34 Automated erythrocyte mean corpuscular h emoglobin concentration measurement (mass/volume) 30 g/dL 32-36 Automated erythrocyte distribution width ratio 15. 2 % 10.0- 14.5 Automated blood platelet count (count/volume) 165 10*3/uL 130-400 Automated blood platelet mean volume measurement 9.4 [foz_us] 7.4-10.4 Automated blood neutrophils/100 leukocytes 86 % 42-75 Automated blood lymphocytes/100 leukocytes 10 % 12-44 Blood monocytes/100 leukocytes 4 % 0-12 Automated blood eosinophils/100 leukocytes 0 % 0-10 Automated blood basophils/100 leukocytes 0 % 0-10 Blood neutrophils automated count (number/volume) 6.8 10*3 1.8-7.8 Blood lymphocytes automated count (number/volume) 0.8 10*3 1.0-4.0 Blood monocytes automated count (number/volume) 0. 3 10*3 0.0-1.0 Automated eosinophil count 0.0 10*3/uL 0 .0-0.3 Automated blood basophil count (count/volume) 0.0 10*3/uL 0.0-0.1 Blood lactic acid measurement (moles/vol ume) - 12/23/19 22:45 Blood lactic acid measurement (moles/volume) 0.86 mmol/L 0.50-2.00 Serum or plasma lithium measurement (mol es/volume) - 12/23/19 22:45 BNP PT 95.1 pg/mL <100.0 Comprehensive metabolic panel - 12/23/19 23:04 Serum or plasma sodium measurement (moles/volume) 140 mmol/L 135-145 Serum or plasma potassium measurement (moles/volume) 5.1 mmol/L 3.6-5.0 Serum or plasma chloride measurement (moles/volume) 91 mmol/L 98-107 Carbon dioxide 42 mmol/L 21-32 Serum or plasma anion gap determination (moles/volume) 7 mmol/L 5-14 Serum or plasma urea nitrogen measurement (mass/volume ) 9 mg/dL 7-18 Serum or plasma creatinine measurement (mass/volume) 0.80 mg/dL 0.60-1.30 Serum or plasma urea nitrogen/creatinine mass ratio 11 NRG Serum or plasma creatinine measurement w ith calculation of estimated glomerular filtration rate > NRG Serum or plasma glucose measurement (mass/volume) 276 mg/dL 70-105 Serum or plasma calcium measurement (mass/volume) 9.9 mg/dL 8.5-10.1 Serum or plasma total bilirubin measurement (mass/volu me) 0.3 mg/dL 0.1-1.0 Serum or plasma alkaline phosphatase moe surement (enzymatic activity/volume) 143 U/L 40-136 Serum or plasma aspartate aminotransfera se measurement (enzymatic activity/volume) 12 U/L 5-34 Serum or plasma alanine aminotransferase measurement (enzymatic activity/volume) 9 U/L 0-55 Serum or plasma protein measurement (mass/volume) 8.0 g/dL 6.4-8.2 Serum or plasma albumin measurement (mass/volume) 3.6 g/dL 3.2-4.5 CALCIUM CORRECTED 10.2 mg/dL 8.5-10.1 PT panel in platelet poor plasma by coag ulation assay - 12/23/19 23:04 Prothrombin time (PT) in platelet poor plasma by coagu lation assay 13.0 s 12.2-14.7 INR in platelet poor plasma or blood by coagulation as say 0.9 0.8-1.4 Activated partial thromboplastin time (a PTT) in platelet poor plasma bycoagulation assay - 12/23/19 23:04 Activated partial thromboplastin time (a PTT) in platelet poor plasma bycoagulation assay 25 s 24-35 Serum or plasma C reactive protein measu rement (mass/volume) - 12/23/19 23:04 Serum or plasma C reactive protein measurement (mass/v olume) 2.98 mg/dL 0.00-0.50 Arterial blood gas measurement - 0 23:10 Blood pCO2 49 mm[Hg] 35-45 Blood pO2 143 mm[Hg] 79-93 Arterial blood bicarbonate measurement (moles/volume) 39 mmol/L 23-27 Arterial blood base excess by calculation 14.9 mmo l/L -2.5-2.5 Arterial blood oxygen saturation measurement 99 % 94-100 * Inhaled oxygen flow rate BIPAP 80% NR G Arterial blood pH measurement with patient temperature correction 7.52 7.37-7.43 Arterial blood carbon dioxide, total measurement (mole s/volume) 40.7 mmol/L 21.0-31.0 Body site RIGHT WRIST NRG Assessment of wrist artery patency prior to arterial p uncture YES-POS NRG Setting of ventilation mode NO NR G Measurement of body temperature 36.6 NRG Complete urinalysis with reflex to cultu re - 12/23/19 23:22 Urine color determination YELLOW NRG Urine clarity determination SL CLOUDY N RG Urine pH measurement by test strip 6.0 5-9 Specific gravity of urine by test strip >= 1.016-1.022 Urine protein assay by test strip, semi-quantitative 3+ NEGATIVE Urine glucose detection by automated test strip TR YURI NEGATIVE Erythrocytes detection in urine sediment by light micr oscopy TRACE-L NEGATIVE Urine ketones detection by automated test strip NE GATIVE NEGATIVE Urine nitrite detection by test strip NEGATIVE NEGATIVE Urine total bilirubin detection by test strip NEGA TIVE NEGATIVE Urine urobilinogen measurement by automated test strip (mass/volume) 1.0 mg/dL < = 1.0 Urine leukocyte esterase detection by dipstick NEG ATIVE NEGATIVE Automated urine sediment erythrocyte cou nt by microscopy (number/high power field) RARE NRG Automated urine sediment leukocyte count by microscopy (number/high power field) RARE NRG Bacteria detection in urine sediment by light microsco py FEW NRG Squamous epithelial cells detection in u rine sediment by light microscopy 5-10 NRG Crystals detection in urine sediment by light microsco py NONE NRG Casts detection in urine sediment by light microscopy PRESENT NRG Mucus detection in urine sediment by light microscopy MODERATE NRG Complete urinalysis with reflex to culture YES NRG Hyaline casts detection in urine sediment by light bushra roscopy 10-25 NRG Urine drug screening test - 12/23/19 23: 30 Urine phencyclidine detection by screening method NEGATIVE NEGATIVE Urine benzodiazepines detection by screening method NEGATIVE NEGATIVE Urine cocaine detection NEGATIVE NEGATI VE Urine amphetamines detection by screening method N EGATIVE NEGATIVE Urine methamphetamine detection by screening method NEGATIVE NEGATIVE Urine cannabinoids detection by screening method N EGATIVE NEGATIVE Urine opiates detection by screening method NEGATI VE NEGATIVE Urine barbiturates detection NEGATIVE N EGATIVE Screening urine tricyclic antidepressants detection NEGATIVE NEGATIVE Urine methadone detection by screening method NEGA TIVE NEGATIVE Urine oxycodone detection NEGATIVE NEGA TIVE Urine propoxyphene detection NEGATIVE N EGATIVE Encounters ACCT No. Visit Date/Time Discharge Status Pt. Type Provider Facility Loc./Unit Complaint [id number] 03/18/2017 19:06:00 Document Registration [id number] 06/09/2016 13:05:00 Document Registration [id number] 11/05/2014 13:47:00 11/05/2014 23:59: 59 CLS Outpatient ROSSY NAIR VÍCTOR K [id number] 08/30/2014 12:04:00 08/30/2014 23:59: 59 CLS Outpatient VÍCTOR BLAIR DO [id number] 07/30/2014 13:48:00 07/30/2014 23:59: 59 CLS Outpatient BLAIR VÍCTOR NAIR [id number] 07/28/2014 13:42:00 07/28/2014 23:59: 59 CLS Outpatient VÍCTOR BLAIR DO [id number] 07/27/2014 17:00:00 07/27/2014 23:59: 59 CLS Outpatient VÍCTOR BLAIR DO [id number] 07/26/2014 13:37:00 07/26/2014 23:59: 59 CLS Outpatient JOEL FALCON APRN [id number] 05/28/2014 00:00:00 05/28/2014 23:59: 59 CLS Outpatient BLAIR DOVÍCTOR [id number] 05/03/2014 11:11:00 05/03/2014 23:59: 59 CLS Outpatient ROSSY DOVÍCTOR [id number] 05/03/2014 11:11:00 05/03/2014 23:59: 59 CLS Outpatient BLAIR DOVÍCTOR [id number] 04/27/2014 00:00:00 04/27/2014 23:59: 59 CLS Outpatient BLAIR DOVÍCTOR [id number] 10/01/2013 09:12:00 10/01/2013 23:59: 59 CLS Outpatient BLAIR DOVÍCTOR [id number] 10/01/2013 09:12:00 10/01/2013 23:59: 59 CLS Outpatient BLAIR DOVÍCTOR [id number] 04/01/2013 10:06:00 04/01/2013 23:59: 59 CLS Outpatient VÍCTOR BLAIR DO [id number] 04/01/2013 10:06:00 04/01/2013 23:59: 59 CLS Outpatient BLAIR DOVÍCTOR [id number] 10/06/2012 16:10:00 10/06/2012 23:59: 59 CLS Outpatient [id number] 2012 14:58:00 2012 23:59: 59 CLS Outpatient JOEL FALCON APRN [id number] 06/09/2012 16:46:00 06/09/2012 23:59: 59 CLS Outpatient BLAIR DOVÍCTOR [id number] 02/07/2012 14:20:00 02/07/2012 23:59:5 9 CLS Outpatient BLAIR DOVÍCTOR [id number] 01/08/2013 13:43:00 Document Registration [id number] 10/06/2012 16:10:00 Document Registration [id number] 09/12/2019 00:15:00 020 12:28:00 DIS Inpatient BAZZI CLAIRE NAIR [facility] 4TH ACUTE RESPIRATORY FAILU RE,HYPOXIA HYPERCAPNIA, [id number] 08/22/2019 14:33:00 020 16:45:00 DIS Outpatient AJ WETZEL MD [facility] ER FACIAL SWELLING [id number] 08/21/2019 23:14:00 00:01:00 DIS Outpatient BRITTANI DEWAYNE NAIR [facility] ER LEFT SIDE JAW PAIN [id number] 08/10/2019 08:28:00 23:59:59 CLS Preadmit BERTRAM DOWNING APRN [facility] RAD DYSPNEA [id number] 07/17/2019 20:50:00 12:45:00 DIS Inpatient ROSE MARY NAIR CLAIRE Boyle [facility] 4TH PNEUMONIA,COPD,TYPE 2 D M [id number] 06/26/2019 14:05:00 23:59:59 CLS Outpatient BERTRAM DOWNING APRN [facility] RAD ABN FINDING OF LUNG FIELD [id number] 03/09/2019 00:40:00 13:10:00 DIS Outpatient LISA LOONEY, VAN Mckeon [facility] 4TH ACUTE ON CHRONIC RESPIR ATORY FAILURE; PNEUMONIA, [id number] 01/15/2019 14:29:00 23:59:59 CLS Outpatient BERTRAM DOWNING APRN [facility] RAD OTHER PNEUMONIA [id number] 11/27/2018 07:17:00 23:59:59 CLS Preadmit BERTRAM DOWNING APRN [facility] RT COPD,JORGE L [id number] 10/30/2018 22:24:00 17:39:00 DIS Inpatient VÍCTOR BLAIR DO, V [facility] ICU COPD EXACERBATION WITH HYPOXIA [id number] 09/22/2018 16:32:00 19:52:00 DIS Emergency DAMARI LOONEY, AJ Guadarrama [facility] ER SOA [id number] 11/25/2017 18:43:00 12:50:00 DIS Inpatient NORMAN ALY MD [facility] 4TH COPD EXACERBATION,RESPI RATORY DISTRESS [id number] 01/07/2013 20:31:00 013 21:45:00 DIS Emergency BRITTANI DO, DEWAYNE K Vi a [facility] ER SKIN IRRITATION [id number] 12/23/2019 22:04:[address] Emergency SHANNAN LOONEY, REY [facility] ER SOA [id number] 10/01/2014 14:22:00 Document Registration [id number] 08/15/2010 15:49:00 Document Registration [id number] 07/09/2010 16:25:00 Document Registration [id number] 08/18/2019 17:40:00 08/18/2019 23:59:5 9 CLS Outpatient EASTON LOONEY, YULIYA FAY [facility] [id number] 10/08/2018 11:40:00 Document Registration [id number] 06/11/2018 14:00:00 Document Registration [id number] 03/21/2018 15:00:00 Document Registration [id number] 05/28/2017 16:20:00 Document Registration [id number] 03/15/2017 09:20:00 Document Registration
[2019-12-24] MEDS ORDERED: methylPREDNISolone 125 MG (Solu-MEDROL) VIAL IVP ONE (00:45)
--- OUTSIDE RECORDS SUMMARY | 2019-12-24 02:02 | XMS REPORT | Continuity of Care Document ---
Demographics Preferred Language Unknown Marital Status Unknown Oriental Orthodox Affiliation Unknown Race Unknown Ethnic Group Unknown [...] VÍCTOR K 599.0 Urinary Tract Infection 08/26/2008 BLIAR DO, VÍCTOR K 401.1 ESSENTIAL HYPERTENSION BENIGN [...] GARRETT FALCON APRNIA R 244.9 HYPOTHYROIDISM 04/18/2010 GRARETT FALCON APRNIA R 296.90 MOOD DISORDER 04/18/2010 [...] DO, VÍCTOR K 786.2 Cough 04/18/2010 TERRIE PUBLICATIONS WRITER JOEL R 244.9 HYPOTHYROIDISM 04/18/2010 FALCON PUBLICATIONS WRITER, JOEL R 296.90 MOOD DISORDER 04/18/2010 TERRIE PUBLICATIONS WRITER, JOEL R 465.9 Upper Respiratory Infection 04/18/2010 [...] Ot 584.9 07/12/2010 Ot V45.79 07/26/2010 ROSSY NARI VÍCTOR K 276.8 Hypopotassemia 07/26/2010 ROSSY DO [...] Hypo potassemia 07/26/2010 496 COPD 07/26/2010 585.9 FORMULATOR 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 SALLY RENAL FAILURE 07/26/2010 790.4 Abno rmal Liver Function Test 07/26/2010 276.8 Hypo potassemia 07/26/2010 496 COPD 07/26/2010 585.9 FORMULATOR 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 SALLY RENAL 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 07/26/2010 790.4 Abno rmal Liver Function Test 07/26/2010 276.8 Hypo potassemia 07/26/2010 496 COPD 07/26/2010 585.9 FORMULATOR COMPOUNDER SALLY RENAL FAILURE 07/26/2010 790.4 Abno rmal [...] 790.4 Abnormal Liver Function Test 07/26/2010 FALCON PUBLICATIONS WRITER, JOEL R 276.8 Hypopotassemia 07/26/2010 FALCON PUBLICATIONS WRITER, JOEL R 496 COPD 07/26/2010 FALCON PUBLICATIONS WRITER, JOEL R 585.9 CHRONIC RENAL FAILURE 07/26/2010 FALCON PUBLICATIONS WRITER, JOEL R 790.4 Abnormal Liver Function Test [...] K 790.4 Abnormal Liver Function Test 07/26/2010 BLIAR DO, VÍCTOR K 276.8 Hypopotassemia 07/26/2010 BLAIR [...] NSELING - SMOKING CESSATION 06/25/2011 BLAIR DO, VÍCTOR [...] DO, VÍCTOR K 461.9 Sinusitis Acute 06/25/2011 BLARI DO, VÍCTOR K V65.42 COUNSELING - SMOKING [...] K 461.9 Sinusitis Acute 06/25/2011 BLAIR DO, VÍCTRO K V65.42 COUNSELING - SMOKING CESSATION 06/25/2011 [...] DEPENDENCE ON SUPPLEMENTAL OXYGEN 07/30/2014 BLAIR DO, VÍTCOR K 486 PNEUMONIA ORGANISM UNSPECIFIED 07/30/2014 BLAIR [...] EPISODIC MOOD DISORDER 11/25/2017 Ot 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 51 FDC (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 OF INHALED STERO 09/22/2018 AJ WETZEL MD Ot Z79. 52 BIODIESEL ENGINEERING MANAGER (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 OF SYSTEMIC STER 09/22/2018 AJ WETZEL MD Ot Z79. 84 BIODIESEL ENGINEERING MANAGER (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 OF ORAL HYPOGLYC 09/24/2018 AJ [...] 09/24/2018 AJ WETZEL MD Ot Z79. 51 BIODIESEL ENGINEERING MANAGER (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 OF INHALED STERO 09/24/2018 AJ WETZEL MD Ot Z79. 52 BIODIESEL ENGINEERING MANAGER (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 OF SYSTEMIC STER 09/24/2018 AJ WETZEL MD Ot Z79. 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 01/15/2019 Ot 496 CHR AI [...] OTHER SPECIFIED PART 01/21/2019 SALINA, BERTRAM E PUBLICATIONS WRITER Ot E66.9 OBESITY, UNSPECIFIED 01/21/2019 SALINA, BERTRAM E PUBLICATIONS WRITER Ot F17.200 NICOTINE DEPENDENCE, UNSPECIFIED, UNCOMP 01/21/2019 SALINA, BERTRAM E PUBLICATIONS WRITER Ot F39 UNSPECIFIED MOOD [AFFECTIVE] DISORDER 01/21/2019 SALINA, BERTRAM E PUBLICATIONS WRITER Ot G47.10 HYPERSOMNIA, UNSPECIFIED 01/21/2019 SALINA, BERTRAM E PUBLICATIONS WRITER Ot G47.33 OBSTRUCTIVE SLEEP APNEA (ADULT) (PEDIATR 01/21/2019 SALINA, BERTRAM E PUBLICATIONS WRITER Ot J18.8 OTHER PNEUMONIA, UNSPECIFIED ORGANISM 01/21/2019 SALINACARIDADBERTRAM E PUBLICATIONS WRITER Ot J44.9 CHRONIC OBSTRUCTIVE PULMONARY DISEASE, U 01/21/2019 SALINA, BERTRAM E PUBLICATIONS WRITER Ot J96.21 ACUTE AND CHRONIC RESPIRATORY FAILURE [place] 01/21/2019 SALINA, BERTRAM E PUBLICATIONS WRITER Ot J96.91 RESPIRATORY FAILURE, UNSPECIFIED WITH HY 01/21/2019 SALINACARIDAD [place] E PUBLICATIONS WRITER Ot Z90.49 ACQUIRED ABSENCE OF OTHER SPECIFIED PART 02/03/2019 SALINA, BERTRAM E PUBLICATIONS WRITER Ot E66.9 OBESITY, UNSPECIFIED 02/03/2019 SALINA, BERTRAM E PUBLICATIONS WRITER Ot F17.200 NICOTINE DEPENDENCE, UNSPECIFIED, UNCOMP 02/03/2019 SALINA, BERTRAM E PUBLICATIONS WRITER Ot F39 UNSPECIFIED MOOD [AFFECTIVE] DISORDER 02/03/2019 SALINACARIDAD [place] E PUBLICATIONS WRITER Ot G47.10 HYPERSOMNIA, UNSPECIFIED 02/03/2019 SALINA, BERTRAM E PUBLICATIONS WRITER Ot G47.33 OBSTRUCTIVE SLEEP APNEA (ADULT) (PEDIATR 02/03/2019 SALINA BERTRAM E PUBLICATIONS WRITER Ot J18.8 OTHER PNEUMONIA, UNSPECIFIED ORGANISM 02/03/2019 SALINA, BERTRAM E PUBLICATIONS WRITER Ot J44.9 CHRONIC OBSTRUCTIVE PULMONARY DISEASE, U 02/03/2019 SALINA, BERTRAM E PUBLICATIONS WRITER Ot J96.21 ACUTE AND CHRONIC RESPIRATORY FAILURE [place] 02/03/2019 SALINA, BERTRAM E PUBLICATIONS WRITER Ot J96.91 RESPIRATORY FAILURE, UNSPECIFIED WITH HY 02/03/2019 SALINA, BERTRAM E PUBLICATIONS WRITER Ot Z90.49 ACQUIRED ABSENCE OF OTHER SPECIFIED [...] ADULT 03/10/2019 VAN GONZALEZ MD, Ot Z79.84 FDC (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 OF ORAL HYPOGLYC 03/10/2019 VAN GONZALEZ MD Ot Z91.19 PATIENT'S NONCOMPLIANCE W [facility] 03/10/2019 VAN GONZALEZ MD, [...] ACUTE AND CHRONIC RESPIRATORY FAILURE [place] 03/11/2019 VNA GONZALEZ MD Ot N39 .0 URINARY TRACT INFECTION, SITE NOT SPECIF 03/11/2019 VAN GONZALEZ MD Ot R06.89 OTHER ABNORMALITIES OF BREATHING 03/11/2019 VAN GONZALEZ MD Ot Z68.37 BODY MASS INDEX (BMI) 37.0-37.9, ADULT 03/11/2019 VAN GONZALEZ MD, Ot Z79.84 FDC (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 OF ORAL HYPOGLYC 03/11/2019 VAN GONZALEZ MD, Ot Z91.19 PATIENT'S NONCOMPLIANCE W [facility] 03/11/2019 VAN GONZALEZ MD, [...] ADULT 03/11/2019 VAN GONZALEZ MD, Ot Z79.84 FDC (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 OF ORAL HYPOGLYC 03/11/2019 VAN GONZALEZ MD, Ot Z91.19 PATIENT'S NONCOMPLIANCE W [facility] 03/11/2019 VAN GONZALEZ MD, [...] ADULT 03/12/2019 VAN GONZALEZ MD, Ot Z79.84 BIODIESEL ENGINEERING MANAGER (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 OF ORAL HYPOGLYC 03/12/2019 VAN GONZALEZ MD, Ot Z91.19 PATIENT'S NONCOMPLIANCE W [facility] 03/12/2019 VAN GONZALEZ MD, [...] ADULT 03/12/2019 VAN GONZALEZ MD, Ot Z79.84 BIODIESEL ENGINEERING MANAGER (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 OF ORAL HYPOGLYC 03/12/2019 VAN GONZALEZ MD, Ot Z91.19 PATIENT'S NONCOMPLIANCE W [facility] 03/12/2019 VAN GONZALEZ MD, Ot Z99.81 DEPENDENCE ON SUPPLEMENTAL OXYGEN 03/13/2019 VAN GONZALEZ MD, Ot E03 .9 HYPOTHYROIDISM, UNSPECIFIED 03/13/2019 VAN GONZALEZ MD Ot E11 .9 TYPE 2 DIABETES MELLITUS WITHOUT COMPLIC 03/13/2019 VAN GONZALEZ MD Ot E66 .9 OBESITY, UNSPECIFIED 03/13/2019 VAN GONZALEZ MD Ot E78.00 PURE HYPERCHOLESTEROLEMIA, UNSPECIFIED 03/13/2019 VAN GONZALEZ MD, Ot E83.52 HYPERCALCEMIA 03/13/2019 VAN GONZALEZ MD Ot E87 .2 ACIDOSIS 03/13/2019 VAN [...] ADULT 03/13/2019 VAN GONZALEZ MD, Ot Z79.84 FDC (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 OF ORAL HYPOGLYC 03/13/2019 VAN GONZALEZ MD Ot Z91.19 PATIENT'S NONCOMPLIANCE W [facility] 03/13/2019 VAN GONZALEZ MD, [...] ADULT 03/14/2019 VAN GONZALEZ MD, Ot Z79.84 FDC (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 OF ORAL HYPOGLYC 03/14/2019 VAN GONZALEZ MD, Ot Z91.19 PATIENT'S NONCOMPLIANCE W [facility] 03/14/2019 VAN GONZALEZ MD, Ot Z99.81 DEPENDENCE ON SUPPLEMENTAL OXYGEN 03/14/2019 VAN GONZALEZ MD, Ot E03 .9 HYPOTHYROIDISM, UNSPECIFIED 03/14/2019 VAN GONZALEZ MD, Ot E11 .9 TYPE [...] ACUTE AND CHRONIC RESPIRATORY FAILURE [place] 03/14/2019 AVN GONZALEZ MD, Ot J96.22 ACUTE AND CHRONIC RESPIRATORY FAILURE [place] 03/14/2019 VAN GONZALEZ MD Ot R06.89 OTHER ABNORMALITIES OF BREATHING 03/14/2019 VAN GONZALEZ MD, Ot Z68.37 BODY MASS INDEX (BMI) 37.0-37.9, ADULT 03/14/2019 VAN GONZALEZ MD, Ot Z79.84 BIODIESEL ENGINEERING MANAGER (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 OF ORAL HYPOGLYC 03/14/2019 VAN GONZALEZ MD, Ot Z91.19 PATIENT'S NONCOMPLIANCE W [facility] 03/14/2019 VAN GONZALEZ MD, Ot Z99.81 DEPENDENCE ON SUPPLEMENTAL OXYGEN 03/15/2019 VAN GONZALEZ MD, Ot E03 .9 HYPOTHYROIDISM, UNSPECIFIED 03/15/2019 VAN GONZALEZ MD, Ot E11 .9 TYPE [...] ADULT 03/15/2019 VAN GONZALEZ MD, Ot Z79.84 BIODIESEL ENGINEERING MANAGER (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 OF ORAL HYPOGLYC 03/15/2019 VAN GONZALEZ MD, Ot Z91.19 PATIENT'S NONCOMPLIANCE W [facility] 03/15/2019 VAN GONZALEZ MD, [...] ADULT 03/16/2019 VAN GONZALEZ MD, Ot Z79.84 BIODIESEL ENGINEERING MANAGER (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 OF ORAL HYPOGLYC 03/16/2019 VAN GONZALEZ MD, Ot Z91.19 PATIENT'S NONCOMPLIANCE W [facility] 03/16/2019 VAN GONZALEZ MD, [...] ADULT 03/16/2019 VAN GONZALEZ MD, Ot Z79.84 BIODIESEL ENGINEERING MANAGER (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 OF ORAL HYPOGLYC 03/16/2019 VAN GONZALEZ MD Ot Z91.19 PATIENT'S NONCOMPLIANCE W [facility] 03/16/2019 VAN GONZALEZ MD, [...] ADULT 03/16/2019 VAN GONZALEZ MD, Ot Z79.84 FDC (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 OF ORAL HYPOGLYC 03/16/2019 VAN GONZALEZ MD, Ot Z91.19 PATIENT'S NONCOMPLIANCE W [facility] 03/16/2019 VAN GONZALEZ MD, [...] ADULT 03/17/2019 VAN GONZALEZ MD, Ot Z79.84 FDC (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 OF ORAL HYPOGLYC 03/17/2019 VAN GONZALEZ MD, Ot Z91.19 PATIENT'S NONCOMPLIANCE W [facility] 03/17/2019 VAN GONZALEZ MD, [...] J30 .2 OTHER SEASONAL ALLERGIC RHINITIS 03/18/2019 VAN GONZALEZ MD, Ot J44 .1 CHRONIC OBSTRUCTIVE PULMONARY DISEASE W 03/18/2019 VAN GONZALEZ MD, Ot J96.21 ACUTE AND CHRONIC RESPIRATORY FAILURE WI 03/18/2019 VAN GONZALEZ MD, Ot J96.22 ACUTE AND CHRONIC RESPIRATORY FAILURE WI 03/18/2019 VAN GONZALEZ MD, Ot R06.89 OTHER ABNORMALITIES OF BREATHING 03/18/2019 VAN GONZALEZ MD, Ot Z68.37 BODY MASS INDEX (BMI) 37.0-37.9, ADULT 03/18/2019 VAN GONZALEZ MD, Ot Z79.84 BIODIESEL ENGINEERING MANAGER (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 OF ORAL HYPOGLYC 03/18/2019 VAN GONZALEZ MD, Ot Z91.19 PATIENT'S NONCOMPLIANCE W [facility] 03/18/2019 VAN GONZALEZ MD, [...] ADULT 03/19/2019 VAN GONZALEZ MD, Ot Z79.84 FDC (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 OF ORAL HYPOGLYC 03/19/2019 VAN GONZALEZ MD, Ot Z91.19 PATIENT'S NONCOMPLIANCE W [facility] 03/19/2019 VAN GONZALEZ MD, [...] ADULT 03/20/2019 VAN GONZALEZ MD, Ot Z79.84 BIODIESEL ENGINEERING MANAGER (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 OF ORAL HYPOGLYC 03/20/2019 VAN GONZALEZ MD, Ot Z91.19 PATIENT'S NONCOMPLIANCE W [facility] 03/20/2019 VAN GONZALEZ MD, [...] ADULT 03/20/2019 VAN GONZALEZ MD, Ot Z79.84 FDC (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 OF ORAL HYPOGLYC 03/20/2019 VAN GONZALEZ MD, Ot Z91.19 PATIENT'S NONCOMPLIANCE W [facility] 03/20/2019 VAN GONZALEZ MD, [...] MD, Ot I25.10 ATHSCL HEART DISEASE OF [place] CORONARY 03/20/2019 VAN GONZALEZ MD, Ot I27.20 [...] ADULT 03/20/2019 VAN GONZALEZ MD, Ot Z79.84 FDC (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 OF ORAL HYPOGLYC 03/20/2019 VAN GONZALEZ MD, Ot Z91.19 PATIENT'S NONCOMPLIANCE W [facility] 03/20/2019 VAN GONZALEZ MD, [...] MD Ot I27.20 PULMONARY HYPERTENSION, UNSPECIFIED 03/20/2019 AVN GONZALEZ MD Ot I42 .9 CARDIOMYOPATHY, UNSPECIFIED [...] ADULT 03/20/2019 VAN GONZALEZ MD Ot Z79.84 FDC (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 OF ORAL HYPOGLYC 03/20/2019 VAN GONZALEZ MD Ot Z91.19 PATIENT'S NONCOMPLIANCE W [facility] 03/20/2019 VAN GONZALEZ MD, [...] Ot E66.9 OBESITY, UNSPECIFIED 07/21/2019 BAZZI DO, CLAIER Ot E78.00 PURE HYPERCHOLESTEROLEMIA, UNSPECIFIED 07/21/2019 BAZZI [...] Ot J43.9 EMPHYSEMA, UNSPECIFIED 07/23/2019 BAZZI DO, CLARIE Ot J96.22 ACUTE AND CHRONIC RESPIRATORY FAILURE [...] 08/25/2019 AJ WETZEL MD Ot Z79. 51 FDC (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 OF INHALED STERO 08/25/2019 AJ WETZEL MD Ot Z79. 84 FDC (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 OF ORAL HYPOGLYC 08/25/2019 AJ [...] SHOCK 09/15/2019 BAZZI DO, CLAIRE Ot Z79.84 FDC (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 OF ORAL HYPOGLYC 09/15/2019 BAZZI [...] SHOCK 09/15/2019 BAZZI DO, CLAIRE Ot Z79.84 BIODIESEL ENGINEERING MANAGER (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 OF ORAL HYPOGLYC 09/15/2019 BAZZI [...] J18.9 PNEUMONIA, UNSPECIFIED ORGANISM 09/16/2019 BAZZI DO, CLAIRE Ot J30.2 OTHER SEASONAL ALLERGIC RHINITIS 09/16/2019 BAZZI DO, CLAIRE Ot J43.9 EMPHYSEMA, UNSPECIFIED 09/16/2019 BAZZI DO, CLAIRE Ot J96.21 ACUTE AND CHRONIC RESPIRATORY FAILURE WI 09/16/2019 BAZZI DO, CLAIRE Ot J96.22 ACUTE AND CHRONIC RESPIRATORY FAILURE WI 09/16/2019 BAZZI DO, CLAIRE Ot R65.21 SEVERE SEPSIS WITH SEPTIC SHOCK 09/16/2019 BAZZI DO, CLAIRE Ot Z79.84 BIODIESEL ENGINEERING MANAGER (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 OF ORAL HYPOGLYC 09/16/2019 BAZZI [...] SHOCK 09/17/2019 BAZZI DO, CLAIRE Ot Z79.84 BIODIESEL ENGINEERING MANAGER (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 OF ORAL HYPOGLYC 09/17/2019 BAZZI [...] SHOCK 09/18/2019 BAZZI DO, CLAIRE Ot Z79.84 FDC (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 OF ORAL HYPOGLYC 09/18/2019 BAZZI [...] SHOCK 09/18/2019 BAZZI DO, CLAIRE Ot Z79.84 BIODIESEL ENGINEERING MANAGER (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 OF ORAL HYPOGLYC 09/18/2019 BAZZI [...] SHOCK 09/18/2019 BAZZI DO, CLAIRE Ot Z79.84 FDC (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 OF ORAL HYPOGLYC 09/18/2019 BAZZI DO, CLAIRE Ot Z99.81 DEPENDENCE ON SUPPLEMENTAL OXYGEN 09/18/2019 BAZZI DO, CLAIRE Ot A41.9 SEPSIS, UNSPECIFIED ORGANISM 09/18/2019 BAZZI DO, LCAIRE Ot E03.9 HYPOTHYROIDISM, UNSPECIFIED 09/18/2019 BAZZI DO, CLAIRE Ot E11.9 TYPE 2 DIABETES MELLITUS WITHOUT COMPLIC 09/18/2019 BAZZI DO, CLAIRE Ot E78.00 PURE HYPERCHOLESTEROLEMIA, UNSPECIFIED 09/18/2019 BAZZI DO, CLARIE Ot E87.5 HYPERKALEMIA 09/18/2019 BAZZI DO, CLAIRE [...] SHOCK 09/18/2019 BAZZI DO, CLAIRE Ot Z79.84 BIODIESEL ENGINEERING MANAGER (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 OF ORAL HYPOGLYC 09/18/2019 BAZZI DO CLAIRE Ot Z99.81 DEPENDENCE ON SUPPLEMENTAL OXYGEN Procedures Code Description Performed [place] [place] [address] ROUT INE VENIPUNCTURE 06/09/2012 12156 A1C (IN-HOUSE) 06/09/[address] [facility] 06/09/2012 99745 TSH 06/09/2012 22411 CBC 06/09/2012 95896 ROUT INE VENIPUNCTURE 10/06/2012 97199 A1C (IN-HOUSE) 10/06/2012 49996 CMP 10/06/2012 94319 TSH 10/06/2012 10660 ROUT INE VENIPUNCTURE 04/01/2013 88233 A1C (IN-HOUSE) 04/01/2013 83110 LIPI D PANEL 04/01/2013 61937 CMP 04/01/2013 6244300 GF R CALC (RESULT ONLY) 04/01/2013 66169 TSH 04/01/2013 22335 ROUT INE VENIPUNCTURE 10/01/2013 65522 CMP 10/01/2013 71368 LIPI D PANEL 10/01/2013 55390 TSH 10/01/2013 04751 A1C (IN-HOUSE) 10/01/2013 36275 MICR O ALBUMIN-IN HOUSE 10/01/2013 51573 ROUT INE VENIPUNCTURE 05/03/2014 24753 CMP 05/03/2014 08836 LIPI D PANEL 05/03/2014 45707 TSH 05/03/2014 15259 A1C (IN-HOUSE) 05/03/20148F FOOT EXAM PERFORMED 05/03/2014 87458 OXIMETRY 07/26/2014 69802 XRAY CHEST 2 VIEW 07/28/2014 78701 OXIMETRY 07/28/2014 08638 OXIMETRY 07/30/2014 PULMONARY WESLEY ALMAGUER 07/30/2014 40922 TSH 11/05/2014 31437 ROUT INE VENIPUNCTURE 11/05/2014 89343 MICR O ALBUMIN-IN HOUSE 11/05/2014 16011 A1C (IN-HOUSE) 11/05/20146426075 GF R CALC (RESULT ONLY) 11/05/2014 31153 CMP 11/05/2014 [id number] IN SERTION OF ENDOTRACHEAL AIRWAY INTO TR 10/31/2018 1G0561Y RE SPIRATORY VENTILATION, LESS THAN 24 CO 10/31/2018 [id number] IN SERTION OF ENDOTRACHEAL AIRWAY INTO TR 03/09/2019 [id number] RE SPIRATORY VENTILATION, 24- 96 CONSECUTI 03/09/2019 1U1420S RE SPIRATORY VENTILATION, GREATER THAN 96 03/09/2019 [id number] ME ASURE OF CARDIAC SAMPL PRESSURE, L H 03/11/2019 [id number] FL UOROSCOPY OF MULT COR ART USING L OSM 03/11/2019 [id number] FL UOROSCOPY OF LEFT HEART USING LOW OSMO 03/11/2019 [id number] IN SERTION OF ENDOTRACHEAL AIRWAY INTO TR 09/11/2019 1M3413Y RE SPIRATORY VENTILATION, 24- 96 CONSECUTI 09/11/2019 Results Test Result Range Thyroid [place] Profile - 06/08/16 16:25 TSH 3.060 uIU/mL [...] LDL Cholesterol Calc 114 mg/dL 0-99 Thyroid [place] Profile - 08/25/17 09:41 TSH 11.750 uIU/mL [...] PLUS NORMAL DEMARCO NRG Bacterial sputum culture [id number] [facility] Bacterial susceptibility panel - 8 21:00 Oxacillin [...] mg/dL 0.1-1.0 Serum or plasma alkaline phosphatase meo surement (enzymatic activity/volume) 110 U/L 40-136 Serum [...] INFLUENZA A AND B ANTIGENS BY IA [facility] Comprehensive metabolic panel - 09/22/18 16:35 Serum [...] 140-400 MPV 10.4 fL 7.5-12.5 ABSOLUTE NEUTROPHILS 24592 cells/uL 1500 -7800 ABSOLUTE LYMPHOCYTES 1121 cells/uL [...] 13:[address] NRG Bacterial sputum culture [id number] NRG Dirithromycin susceptibility test by dis k [...] by glucometer (mas s/volume) 167 mg/dL 70-110 [id number] - 06/26/19 14:18 Serum or plasma urea [...] culture - 09/11/19 23:00 Bacterial urine culture [id number] NRG COLONY COUNT 50,000 CFU/ML NRG FTX;REPORTABLE [...] ncentration <= NRG Nitrofurantoin susceptibility test by in nimum inhibitory concentration 64 NRG Amoxicillin and [...] Status Pt. Type Provider Facility Loc./Unit Complaint [id number] 03/18/2017 19:06:00 Document Registration [id number] 06/09/2016 13:05:00 Document Registration [id number] 11/05/2014 13:47:00 11/05/2014 23:59: 59 CLS Outpatient ROSSY NAIR VÍCTOR K [id number] 08/30/2014 12:04:00 08/30/2014 23:59: 59 CLS Outpatient VÍCTOR BLAIR DO [id number] 07/30/2014 13:48:00 07/30/2014 23:59: 59 CLS Outpatient BLAIR VÍCTOR NAIR [id number] 07/28/2014 13:42:00 07/28/2014 23:59: 59 CLS Outpatient VÍCTOR BLAIR DO [id number] 07/27/2014 17:00:00 07/27/2014 23:59: 59 CLS Outpatient VÍCTOR BLAIR DO [id number] 07/26/2014 13:37:00 07/26/2014 23:59: 59 CLS Outpatient JOEL FALCON APRN [id number] 05/28/2014 00:00:00 05/28/2014 23:59: 59 CLS Outpatient BLAIR DOVÍCTOR [id number] 05/03/2014 11:11:00 05/03/2014 23:59: 59 CLS Outpatient ROSSY DOVÍCTOR [id number] 05/03/2014 11:11:00 05/03/2014 23:59: 59 CLS Outpatient BLAIR DOVÍCTOR [id number] 04/27/2014 00:00:00 04/27/2014 23:59: 59 CLS Outpatient BLAIR DOVÍCTOR [id number] 10/01/2013 09:12:00 10/01/2013 23:59: 59 CLS Outpatient BLAIR DOVÍCTOR [id number] 10/01/2013 09:12:00 10/01/2013 23:59: 59 CLS Outpatient BLAIR DOVÍCTOR [id number] 04/01/2013 10:06:00 04/01/2013 23:59: 59 CLS Outpatient VÍCTOR BLAIR DO [id number] 04/01/2013 10:06:00 04/01/2013 23:59: 59 CLS Outpatient BLAIR DOVÍCTOR [id number] 10/06/2012 16:10:00 10/06/2012 23:59: 59 CLS Outpatient [id number] 2012 14:58:00 2012 23:59: 59 CLS Outpatient JOEL FALCON APRN [id number] 06/09/2012 16:46:00 06/09/2012 23:59: 59 CLS Outpatient BLAIR DOVÍCTOR [id number] 02/07/2012 14:20:00 02/07/2012 23:59:5 9 CLS Outpatient BLAIR DOVÍCTOR [id number] 01/08/2013 13:43:00 Document Registration [id number] 10/06/2012 16:10:00 Document Registration [id number] 09/12/2019 00:15:00 020 12:28:00 DIS Inpatient BAZZI CLAIRE NAIR [facility] 4TH ACUTE RESPIRATORY FAILU RE,HYPOXIA HYPERCAPNIA, [id number] 08/22/2019 14:33:00 020 16:45:00 DIS Outpatient AJ WETZEL MD [facility] ER FACIAL SWELLING [id number] 08/21/2019 23:14:00 00:01:00 DIS Outpatient BRITTANI DEWAYNE NAIR [facility] ER LEFT SIDE JAW PAIN [id number] 08/10/2019 08:28:00 23:59:59 CLS Preadmit BERTRAM DOWNING APRN [facility] RAD DYSPNEA [id number] 07/17/2019 20:50:00 12:45:00 DIS Inpatient ROSE MARY NAIR CLAIRE [facility]le [facility] 4TH PNEUMONIA,COPD,TYPE 2 D M [id number] 06/26/2019 14:05:00 23:59:59 CLS Outpatient BERTRAM DOWNING APRN [facility] RAD ABN FINDING OF LUNG FIELD [id number] 03/09/2019 00:40:00 13:10:00 DIS Outpatient LISA LOONEY, VAN Mckeon [facility] 4TH ACUTE ON CHRONIC RESPIR ATORY FAILURE; PNEUMONIA, [id number] 01/15/2019 14:29:00 23:59:59 CLS Outpatient BERTRAM DOWNING APRN [facility] RAD OTHER PNEUMONIA [id number] 11/27/2018 07:17:00 23:59:59 CLS Preadmit BERTRAM DOWNING APRN [facility] RT COPD,JORGE L [id number] 10/30/2018 22:24:00 17:39:00 DIS Inpatient VÍCTOR BLAIR DO, V [facility] ICU COPD EXACERBATION WITH HYPOXIA [id number] 09/22/2018 16:32:00 19:52:00 DIS Emergency DAMARI LOONEY, AJ [place]ad[place]ama [facility] ER SOA [id number] 11/25/2017 18:43:00 12:50:00 DIS Inpatient NORMAN ALY MD [facility] 4TH COPD EXACERBATION,RESPI RATORY DISTRESS [id number] 01/07/2013 20:31:00 013 21:45:00 DIS Emergency DEWAYNE PETER DO Vi [facility] ER SKIN IRRITATION [id number] 12/24/2019 01:15:[address] Inpatient CLAIRE BAZZI DO [facility] COPD EXACERBATION [id number] 10/01/2014 14:22:00 Document Registration [id number] 08/15/2010 15:49:00 Document Registration [id number] 07/09/2010 16:25:00 Document Registration [id number] 08/18/2019 17:40:00 08/18/2019 23:59:5 9 CLS Outpatient EASTON LOONEY, YULIYA Blount [facility] [id number] 10/08/2018 11:40:00 Document Registration [id number] 06/11/2018 14:00:00 Document Registration [id number] 03/21/2018 15:00:00 Document Registration [id number] 05/28/2017 16:20:00 Document Registration [id number] 03/15/2017 09:20:00 Document Registration
[2019-12-24] MEDS: NS IV 1000 ML 1,000 ML IV SCH ×3 (03:30→22:44)
[2019-12-24 03:51] LABS: BASOPHILS % (AUTO) 0 % (0-10); EOSINOPHILS % (AUTO) 0 % (0-10); HEMATOCRIT 45 % (35-52); HEMOGLOBIN 13.1 G/DL (11.5-16.0); LYMPHOCYTES # (AUTO) 0.4 X 10^3 (1.0-4.0); LYMPHOCYTES % (AUTO) 5 % (12-44); MEAN CORPUSCULAR HEMOGLOBIN 29 PG (25-34); MEAN CORPUSCULAR HGB CONC 29 G/DL (32-36); MEAN CORPUSCULAR VOLUME 98 FL (80-99); MEAN PLATELET VOLUME 9.2 FL (7.4-10.4); MONOCYTES # (AUTO) 0.1 X 10^3 (0.0-1.0); MONOCYTES % (AUTO) 1 % (0-12); NEUTROPHILS # (AUTO) 7.3 X 10^3 (1.8-7.8); NEUTROPHILS % (AUTO) 94 % (42-75); PLATELET COUNT 160 10^3/uL (130-400); WHITE BLOOD COUNT 7.8 10^3/uL (4.3-11.0)
[2019-12-24 04:06] LABS: ALANINE AMINOTRANSFERASE 9 U/L (0-55); ALBUMIN 3.4 GM/DL (3.2-4.5); ALKALINE PHOSPHATASE 131 U/L (40-136); BILIRUBIN,TOTAL 0.3 MG/DL (0.1-1.0); BUN/CREATININE RATIO 11; CALCIUM 9.4 MG/DL (8.5-10.1); CARBON DIOXIDE 40 MMOL/L (21-32); CHLORIDE 93 MMOL/L (98-107); CREATININE SERUM 0.79 MG/DL (0.60-1.30); GFR ESTIMATED > 60; GLUCOSE 254 MG/DL (70-105); MAGNESIUM 2.2 MG/DL (1.6-2.4); PHOSPHORUS 2.9 MG/DL (2.3-4.7); POTASSIUM 4.9 MMOL/L (3.6-5.0); SODIUM 139 MMOL/L (135-145); TOTAL PROTEIN 7.7 GM/DL (6.4-8.2)
[2019-12-24 04:16] LABS: BAND NEUTROPHILS 4 %; EOSINOPHILS % (MANUAL) 1 %; LYMPHOCYTES % (MANUAL) 7 %; MONOCYTES % (MANUAL) 3 %; NEUTROPHILS % (MANUAL) 85 %; POLYCHROMASIA SLIGHT
[2019-12-24] MEDS ORDERED: ONDANSETRON 4 MG/2 ML (SDV) Z0FRAN IV PRN (04:30)
[2019-12-24] MEDS ORDERED: RT-ALBUTEROL SULF 2.5 MG/3 ML PRE-MIX VIAL IH PRN (04:30)
[2019-12-24 04:34] LABS: ABG BASE EXCESS 15.6 MMOL/L (-2.5-2.5); ABG OXYGEN SATURATION 96 % (94-100); ABG PO2 68 MMHG (79-93); ABG TCO2 45.1 MMOL/L (21.0-31.0)
[2019-12-24 04:37] LABS: ABG PH 7.31 (7.37-7.43)
[2019-12-24 04:38] LABS: ABG PCO2 86 MMHG (35-45); ALLENS TEST YES-POS; INSPIRED O2 55% BIPAP; PATIENT TEMP 36.6; VENTILATOR NO
[2019-12-24] MEDS: RT-ALBUTEROL/IPRATROPIUM 3 ML (DUONEB) VIAL IH SCH ×5 (04:55→22:32)
--- NOTE | 2019-12-24 04:58 | Pulmonary Consultation ---
History of Present Illness History of Present Illness Date Seen by Provider: Dec 24, 2019 Time Seen by Provider: 04:52 Date of Admission History of Present Illness 54yo with hx of COPD on home oxygen at 4 liters presented to ED via EMS secondary to acute worsening SOB and hypoxia. Pt was placed on NRB by EMS. She was given an hr long Nebulizer in the ED. SHe was lethargic upon admission. She denies any fever or cough. I am consulted for ICU/pulmonary management. Allergies and Home Medications Allergies Coded Allergies: NKANo Known Allergies (Unverified Allergy, Mild, 05/01/09) Home Medications Acetaminophen 500 Mg Tablet, 1,500 MG PO Q8H PRN for PAIN-MILD (1-4), (Reported) Albuterol Sulfate 1 Puff Puff, 2 PUFF INH Q6H PRN for SHORTNESS OF BREATH, ( Reported) Albuterol Sulfate 2.5 Mg/3 Ml Vial.neb, 3 ML NEB Q4-6 H PRN for SHORTNESS OF BREATH, (Reported) Aspirin 81 Mg Tab.chew, 81 MG PO DAILY, (Reported) Atorvastatin Calcium 10 Mg Tablet, 10 MG PO DAILY, (Reported) Cefuroxime Axetil 500 Mg Tablet, 500 MG PO BID Prescribed by: JEFF DURBIN on 09/18/191107 Famotidine 20 Mg Tablet, 20 MG PO BID, (Reported) Fluticasone Propion/Salmeterol 1 Each Blst.w.dev, 1 PUFF INH BID, (Reported) Fluticasone Propionate 16 Gm [place].susp, 2 SPRAY NS DAILY PRN for CONGESTION, (Reported) Furosemide 40 Mg Tablet, 40 MG PO DAILY, (Reported) Glipizide 5 Mg Tablet, 10 MG PO DAILY, (Reported) TAKES 2 (5MG) TABS Glipizide 5 Mg Tablet, 5 MG PO HS, (Reported) Levothyroxine Sodium 175 Mcg Tablet, 175 MCG PO DAILY, (Reported) Loratadine 10 Mg Tablet, 10 MG PO DAILY PRN for AALLERGY SYMPTOMS, (Reported) Metformin HCl 500 Mg Tablet, 500 MG PO BID, (Reported) Metoprolol Tartrate 25 Mg Tablet, 25 MG PO BID Prescribed by: JEFF DURBIN on 09/18/19 1108 Montelukast Sodium 10 Mg Tablet, 10 MG PO HS, (Reported) [place]-3/Dha/Epa/Fish Oil 1 Each Capsule, 2,000 MG PO DAILY, (Reported) Paroxetine HCl 40 Mg Tablet, 40 MG PO 1500, (Reported) Potassium Chloride 10 Meq Tab.er.prt, 10 MEQ PO DAILY, (Reported) Tiotropium [place] 1 Inh Aerp, 1 CAP INH 1300 PRN for SHORTNESS OF BREATH, (Reported) Past Djvxcic-Vnenit-Wvfehs Hx Past Med/Social Hx: Reviewed Nursing Past Med/Soc Hx Patient Social History Alcohol Use: Denies Use Recreational Drug Use: No Smoking Status: Current Everyday Smoker Type Used: Cigarettes 2nd Hand Smoke Exposure: Yes Recent Foreign Travel: No Contact w/Someone Who Travel: No Recent Infectious Disease Expo: No Recent Hopitalizations: No Immunizations Up To Date Tetanus Booster (TDap): Unknown PED Vaccines UTD: No Date of Pneumonia Vaccine: Aug 22, 2018 Date of Influenza Vaccine: Jun 12, 2019 Seasonal Allergies Seasonal Allergies: Yes Past Medical History Surgeries: Yes Gallbladder Respiratory: Yes (O2 DEPENDENT AT 4L/NC) Pneumonia, COPD Currently Using CPAP: No Currently Using BIPAP: No Cardiac: Yes High Cholesterol, Hypertension Neurological: No 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 Disorders: Denies 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 Sexually Transmitted Disease: No HIV/AIDS: No Genitourinary: No Gastrointestinal: No Musculoskeletal: No Endocrine: Yes Hypothyroidsim, Diabetes, Non-Insulin dep HEENT: No Loss of Vision: Denies Hearing Impairment: Denies Cancer: No Psychosocial: Yes Anxiety, Depression Integumentary: No Blood Disorders: No Adverse Reaction/Blood Tranf: No Family Medical History Reviewed Nursing Family Hx Cardiovascular disease 19 MOTHER, Onset:Unknown Diabetes mellitus 19 MOTHER, Onset:Unknown Diabetes Review of Systems Time Seen by Provider: 04:59 Sepsis Event Evaluation Height, Weight, BMI Height: 5'6.00" Weight: 212lbs. 1.0oz. 96.121361xj; 33.00 BMI Method:Estimated Exam Exam Vital Signs Date Time Temp Pulse Resp B/P (MAP) Pulse Ox O2 Delivery O2 Flow Rate FiO2 12/24/19 03:12 78 19 96 60.00 12/24/19 03:09 NIV Bilevel 50.00 12/24/19 03:05 92 NIV Bilevel 50 12/24/19 02:58 91 12/24/19 02:55 36.5 85 14 142/72 97 NIV Bilevel 12/24/19 02:55 36.6 71 18 129/72 (91) 95 NIV Bilevel 60.00 12/24/19 00:08 60.00 12/23/19 22:25 89 22 97 80.00 12/23/19 22:20 97 NIV Bilevel 80 12/23/19 22:15 36.6 93 22 163/68 (99) 98 Non Rebreather 10.00 12/23/19 22:15 36.6 93 22 163/68 98 Non Rebreather 10.00 12/23/19 22:04 36.6 90 28 96 Non Rebreather I & O 12/24/19 07:00 Intake Total 1000 ml Balance 1000 ml Height & Weight Height: 5'6.00" Weight: 212lbs. 1.0oz. 96.103054cw; 33.00 BMI Method:Estimated General Appearance: Moderate Distress HEENT: PERRL/EOMI, Normal ENT Inspection Neck: Full Range of Motion, Normal Inspection, Non Tender Respiratory: Chest Non Tender, Accessory Muscle Use, Crackles, Decreased Breath Sounds Cardiovascular: Regular Rate, Rhythm, No Edema, No Gallop Capillary Refill: Less Than 3 Seconds Gastrointestinal: normal bowel sounds, non tender, soft Extremity: Normal Capillary Refill, Normal Inspection Neurologic/Psychiatric: Alert, Oriented x3 Skin: Normal Color Lymphatic: No Adenopathy Results Lab Laboratory Tests 12/23/19 22:45 12/23/19 23:04 12/24/19 03:09 Assessment/Plan Assessment/Plan Acute on chronic respiratory failure -BiPAP COPDAE -Solumedrol -Duoneb -BiPAP WESLEY ALMAGUER DO Dec 24, 2019 04:58
[2019-12-24] MEDS: KCL 20 MEQ TAB (K-DUR) PO SCH (05:28)
[2019-12-24] MEDS: POTASSIUM CL 10MEQ/50ML IVPB 50 ML IV SCH (05:28)
[2019-12-24] MEDS: MAGNESIUM 1 GM/100 ML IVPB 100 ML IV SCH (05:28)
[2019-12-24] MEDS: methylPREDNISolone 40 MG/ML (Solu-MEDROL) VIAL IV SCH ×3 (05:39→17:58)
[2019-12-24] MEDS: inSUlin ASPART (NovoLOG) 1 UNIT/0.01 ML (CHARGE PER UNIT) SQ SCH ×3 (05:39→17:58)
[2019-12-24] MEDS: ENOXAPARIN 40 MG/0.4 ML (LOVENOX) SYR SC SCH (05:46)
[2019-12-24] MEDS: RT-BUDESONIDE NEBS 0.5 MG/2ML (PULMICORT) AMP INH SCH ×2 (06:26→18:47)
--- NOTE | 2019-12-24 06:26 | NUR ---
DUONEB WAS GIVEN AT 0626/
--- NOTE | 2019-12-24 07:03 | History & Physical-Hospitalist ---
History of Present Illness HPI/Chief Complaint CC: SOB HPI: This is a 54yoWF with a PMH of severe COPD, that presented to the ER with lethargy and somnolence found to have hypercapnic hypoxic respiratory failure acute on chronic and currently she is on biPAP and is slightly anxious and she may very well end up being intubated like she has in the past. ABG has looked improved but Pt appears to have diminished breath sounds in all henderson and limited air movement. Source: patient, RN/MD Exam Limitations: clinical condition Date Seen 12/24/19 Time Seen by a Provider: 09:30 Attending Physician Leigha Lemus DO [facility] [place], [facility] Referring Physician Date of Admission Dec 24, 2019 at 01:15 Home Medications & Allergies Home Medications Reviewed patient Home Medication Reconciliation performed by pharmacy medication reconciliations plastic surgery technician and/or nursing. Patients Allergies have been reviewed. Allergies Allergies Coded Allergies NKANo Known Allergies (Unverified Allergy, Mild, 05/01/09) Past Hzeszcn-Hynpea-Hkxuyu Hx Past Med/Social Hx: Reviewed Nursing Past Med/Soc Hx, Reviewed and Corrections made Patient Social History Marrital Status: single Employed/Student: unemployed Alcohol Use: Denies Use Recreational Drug Use: No Smoking Status: Current Everyday Smoker Type Used: Cigarettes 2nd Hand Smoke Exposure: Yes Recent Foreign Travel: No Contact w/other who traveled: No Recent Hopitalizations: No Recent Infectious Disease Expo: No Immunizations Up To Date Tetanus Booster (TDap): Unknown Pediatric: No Date of Pneumonia Vaccine: Aug 22, 2018 Date of Influenza Vaccine: Jun 12, 2019 Seasonal Allergies Seasonal Allergies: Yes Past Medical History Surgeries: Gallbladder Respiratory: COPD, Emphysema, Pneumonia, Sleep Apnea Currently Using CPAP: No Currently Using BIPAP: No Cardiac: High Cholesterol, Hypertension Sexually Transmitted Disease: No HIV/AIDS: No 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 Disorders: Denies Menopausal Endocrine: Hypothyroidsim, Diabetes, Non-Insulin dep Loss of Vision: Denies Hearing Impairment: Denies Psychosocial: Anxiety, Depression History of Blood Disorders: No Adverse Reaction to Blood Gonzalez: No Family History Reviewed Nursing Family Hx Cardiovascular disease 19 MOTHER, Onset:Unknown Diabetes mellitus 19 MOTHER, Onset:Unknown Diabetes Review of Systems Constitutional: see HPI Respiratory: dyspnea on exertion Physical Exam Physical Exam Vital Signs Vital Signs - First Documented 12/23/19 12/23/19 22:04 22:20 Temp 36.6 Pulse 90 Resp 28 Pulse Ox 96 O2 Delivery Non Rebreather FiO2 80 Capillary Refill : Less Than 3 Seconds Height, Weight, BMI Height: 5'6.00" Weight: 212lbs. 1.0oz. 96.245037ls; 33.00 BMI Method:Estimated General Appearance: Anxious, Chronically ill, Mild Distress Eyes: Right Eye Normal Inspection, Right Eye PERRL HEENT: PERRL/EOMI, Normal ENT Inspection, Pharynx Normal, Moist Mucous Membranes Neck: Full Range of Motion, Normal Inspection, Non Tender Respiratory: Chest Non Tender, Lungs Clear, No Respiratory Distress, Accessory Muscle Use, Decreased Breath Sounds Cardiovascular: Regular Rate, Rhythm, No Edema, No Gallop, No JVD, No Murmur, Normal Peripheral Pulses Gastrointestinal: Normal Bowel Sounds, No Organomegaly, No Pulsatile Mass, Non Tender, Soft Back: Normal Inspection, No CVA Tenderness, No Vertebral Tenderness Extremity: Normal Capillary Refill, Normal Inspection, Normal Range of Motion, Non Tender, No Calf Tenderness, No Pedal Edema Neurologic/Psychiatric: Alert, Oriented x3, No Motor/Sensory Deficits, Normal Mood/Affect Skin: Normal Color, Warm/Dry Lymphatic: No Adenopathy Results Results/Procedures Labs Laboratory Tests 12/23/19 22:45 12/23/19 23:04 12/24/19 03:09 Patient resulted labs reviewed. Assessment/Plan Admission Diagnosis Assessment: Acute on chronic respiratory failure h/o VDRF COPD Smoker OHS Plan: BiPAP Monitor closely May need intubation Admission Status: Inpatient Order (span 2 midnights) Reason for Inpatient Admission: resp failure Clinical Quality Measures DVT/VTE Risk/Contraindication: Risk Factor Score Per Nursin RFS Level Per Nursing on Admit: 4+=Very High LEIGHA LEMUS DO Dec 24, 2019 07:03
--- NOTE | 2019-12-24 07:11 | Diagnostic Imaging Report ---
INDICATION: Shortness of breath. Comparison made with prior examination 09/17/2019 FINDINGS: Heart size is normal. There are patchy bibasilar infiltrates. There is no pleural effusion or pneumothorax. Mediastinum is unremarkable. IMPRESSION: Patchy bibasilar pulmonary infiltrates. Dictated by: Dictated on workstation # [id number]
--- NOTE | 2019-12-24 07:33 | Diagnostic Imaging Report ---
INDICATION: COPD and increased somnolence. Comparison made with prior examination 12/23/2019. FINDINGS: The heart size, mediastinal configuration, and pulmonary vascularity are within normal limits. There is no pleural effusion, pneumothorax, or pneumonia. The osseous structures are unremarkable. IMPRESSION: No acute cardiopulmonary abnormality. Dictated by: Dictated on workstation # [id number]
[2019-12-24 08:10] LABS: ABG BASE EXCESS 14.1 MMOL/L (-2.5-2.5); ABG OXYGEN SATURATION 94 % (94-100); ABG PO2 69 MMHG (79-93); ABG TCO2 42.9 MMOL/L (21.0-31.0)
[2019-12-24 08:32] LABS: ABG PCO2 77 MMHG (35-45); ABG PH 7.34 (7.37-7.43); ALLENS TEST YES-POS
[2019-12-24 08:33] LABS: INSPIRED O2 50%; PATIENT TEMP 36.5; VENTILATOR YES
[2019-12-24] MEDS: PANTOPRAZOLE 40 MG (PROTONIX) VIAL IV SCH (09:24)
--- NOTE | 2019-12-24 11:15 | NUR ---
Pastoral care visit.
--- NOTE | 2019-12-24 15:11 | NUR ---
CM/SS: Visited with pt as to plan for discharge Plan: Pt to return home - unsure about additional services as this time Summary: Pt is in bed and has her bipap on. Pt reports that she is feeling better. Pt report living with her uncle and that she wants her daughter to get paid for taking care of her through [employer]. She does have [facility]/Medicaid. Pt reports she does not have Home Community Based Services at this time. This worker will check on pt's home community based services status. This worker will follow up. Pt has a fisher scallop assigned to her. Lola Yeager, . Telephone call to Lola Yeager [phone]. Left message for her to call this worker.
[2019-12-24] MEDS ORDERED: FAMO10TA16 PO (15:53)
[2019-12-24] MEDS ORDERED: METO50CA PO (15:53)
--- NOTE | 2019-12-24 15:56 | NUR ---
SPOKE WITH THE PT, WENT THRU THE EXT MED HISTORY AND GOT A MED LIST FROM [facility] TO COMPLETE THE MED REC PT WENT OVER THE MEDICATIONS TO THE BEST OF HER ABILITY (SHE WAS ON A BIPAP) AND HER INFORMATION MATCHED THE EXT MED HISTORY OTC MEDS: FISH OIL FLONASE TYLENOL ASPIRIN 81
[2019-12-25] VITALS (24 sets, daily range): BP systolic 123–206; BP diastolic 57–136
[2019-12-25] MEDS: methylPREDNISolone 40 MG/ML (Solu-MEDROL) VIAL IV SCH ×4 (00:34→18:10)
[2019-12-25] MEDS: inSUlin ASPART (NovoLOG) 1 UNIT/0.01 ML (CHARGE PER UNIT) SQ SCH ×5 (00:34→21:24)
[2019-12-25] MEDS: RT-ALBUTEROL/IPRATROPIUM 3 ML (DUONEB) VIAL IH SCH ×6 (02:28→22:13)
[2019-12-25 03:22] LABS: BASOPHILS % (AUTO) 0 % (0-10); EOSINOPHILS % (AUTO) 0 % (0-10); HEMATOCRIT 40 % (35-52); HEMOGLOBIN 12.2 G/DL (11.5-16.0); LYMPHOCYTES # (AUTO) 0.6 X 10^3 (1.0-4.0); LYMPHOCYTES % (AUTO) 8 % (12-44); MEAN CORPUSCULAR HEMOGLOBIN 29 PG (25-34); MEAN CORPUSCULAR HGB CONC 31 G/DL (32-36); MEAN CORPUSCULAR VOLUME 94 FL (80-99); MEAN PLATELET VOLUME 9.5 FL (7.4-10.4); MONOCYTES # (AUTO) 0.2 X 10^3 (0.0-1.0); MONOCYTES % (AUTO) 3 % (0-12); NEUTROPHILS # (AUTO) 7.3 X 10^3 (1.8-7.8); NEUTROPHILS % (AUTO) 90 % (42-75); PLATELET COUNT 173 10^3/uL (130-400); RED CELL DISTRIBUTION WIDTH 14.6 % (10.0-14.5); WHITE BLOOD COUNT 8.2 10^3/uL (4.3-11.0)
[2019-12-25 03:39] LABS: ABG BASE EXCESS 13.6 MMOL/L (-2.5-2.5); ABG OXYGEN SATURATION 89 % (94-100); ABG PCO2 65 MMHG (35-45); ABG PO2 54 MMHG (79-93); ABG TCO2 41.2 MMOL/L (21.0-31.0)
[2019-12-25 03:40] LABS: ALLENS TEST YES-POS; INSPIRED O2 45%; PATIENT TEMP 36.6; VENTILATOR NO
[2019-12-25 03:43] LABS: BUN/CREATININE RATIO 20; CALCIUM 9.9 MG/DL (8.5-10.1); CARBON DIOXIDE 37 MMOL/L (21-32); CHLORIDE 97 MMOL/L (98-107); CREATININE SERUM 0.71 MG/DL (0.60-1.30); GFR ESTIMATED > 60; GLUCOSE 120 MG/DL (70-105); MAGNESIUM 2.2 MG/DL (1.6-2.4); PHOSPHORUS 2.4 MG/DL (2.3-4.7); POTASSIUM 4.6 MMOL/L (3.6-5.0); SODIUM 140 MMOL/L (135-145)
[2019-12-25] MEDS: POTASSIUM CL 10MEQ/50ML IVPB 50 ML IV SCH (03:44)
[2019-12-25] MEDS: MAGNESIUM 1 GM/100 ML IVPB 100 ML IV SCH (03:45)
[2019-12-25] MEDS: KCL 20 MEQ TAB (K-DUR) PO SCH (03:45)
--- NOTE | 2019-12-25 05:11 | Pulmonary Progress Note ---
Subjective Time Seen by a Provider: 05:10 Subjective/Events-last exam Pt appears to be doing better. Sepsis Event Evaluation Height, Weight, BMI Height: 5'6.00" Weight: 212lbs. 1.0oz. 96.823911py; 33.00 BMI Method:Estimated Focused Exam Lactate Level 12/23/19 22:45: Lactic Acid Level 0.86 Exam Exam Vital Signs Date Time Temp Pulse Resp B/P (MAP) Pulse Ox O2 Delivery O2 Flow Rate FiO2 12/25/19 04:17 36.0 12/25/19 04:00 63 23 149/76 (100) 94 NIV Bilevel 45.00 12/25/19 04:00 NIV Bilevel 55 12/25/19 03:00 61 15 128/102 (111) 94 NIV Bilevel 45.00 12/25/19 02:34 NIV Bilevel 45.00 12/25/19 02:28 60 17 96 45.00 12/25/19 02:00 84 27 142/96 (111) 97 NIV Bilevel 55.00 12/25/19 01:00 65 12/25/19 01:00 66 16 149/92 (111) NIV Bilevel 55.00 12/25/19 00:00 81 15 123/92 (102) 98 NIV Bilevel 55.00 12/25/19 00:00 NIV Bilevel 55 12/24/19 23:59 36.0 12/24/19 23:00 77 16 125/67 (86) 98 NIV Bilevel 55.00 12/24/19 22:32 88 18 91 55.00 12/24/19 22:00 69 18 133/67 (89) 94 NIV Bilevel 55.00 12/24/19 21:00 61 25 148/86 (106) 94 NIV Bilevel 55.00 12/24/19 20:32 36.3 12/24/19 20:00 NIV Bilevel 55 12/24/19 20:00 81 28 108/84 (92) 94 NIV Bilevel 55.00 12/24/19 19:00 66 19 164/57 (92) 94 NIV Bilevel 55.00 12/24/19 19:00 66 12/24/19 18:47 66 18 95 55.00 12/24/19 18:00 76 15 95 NIV Bilevel 55.00 6/4/20 17:00 59 15 102/88 (93) 92 NIV Bilevel 55.00 12/24/19 16:00 NIV Bilevel 55 12/24/19 16:00 60 15 113/88 (96) 92 NIV Bilevel 55.00 12/24/19 15:49 NIV Bilevel 55.00 12/24/19 15:45 36.2 12/24/19 15:00 73 17 111/91 (98) 91 NIV Bilevel 50.00 12/24/19 14:26 75 20 93 50.00 12/24/19 14:00 78 15 121/98 (106) 93 NIV Bilevel 50.00 12/24/19 13:00 68 19 123/86 (98) 92 NIV Bilevel 50.00 12/24/19 13:00 88 12/24/19 12:00 85 18 113/80 (91) 91 NIV Bilevel 50.00 12/24/19 12:00 NIV Bilevel 50 12/24/19 11:23 36.4 12/24/19 11:00 87 12 128/58 (81) 91 NIV Bilevel 50.00 12/24/19 10:00 70 22 136/79 (98) 90 NIV Bilevel 50.00 12/24/19 10:00 68 18 92 50.00 12/24/19 09:00 69 19 126/79 (95) 92 NIV Bilevel 50.00 12/24/19 08:00 66 13 134/83 (100) 94 NIV Bilevel 50.00 12/24/19 08:00 NIV Bilevel 50 12/24/19 07:23 36.1 12/24/19 07:00 68 24 124/74 (91) 91 NIV Bilevel 50.00 12/24/19 07:00 78 12/24/19 06:26 71 20 92 50.00 12/24/19 06:00 71 17 105/80 (88) 94 NIV Bilevel 50.00 I & O 12/25/19 07:00 Intake Total 765 ml Output Total 1175 ml Balance -410 ml Height & Weight Height: 5'6.00" Weight: 212lbs. 1.0oz. 96.249991pk; 33.00 BMI Method:Estimated General Appearance: Anxious, Chronically ill, Mild Distress HEENT: PERRL/EOMI, Normal ENT Inspection, Pharynx Normal, Moist Mucous Membranes Neck: Full Range of Motion, Normal Inspection, Non Tender Respiratory: Chest Non Tender, Lungs Clear, No Respiratory Distress, Accessory Muscle Use, Decreased Breath Sounds Cardiovascular: Regular Rate, Rhythm, No Edema, No Gallop, No JVD, No Murmur, Normal Peripheral Pulses Capillary Refill: Less Than 3 Seconds Gastrointestinal: normal bowel sounds, non tender, soft Extremity: Normal Capillary Refill, Normal Inspection, Normal Range of Motion, Non Tender, No Calf Tenderness, No Pedal Edema Neurologic/Psychiatric: Alert, Oriented x3, No Motor/Sensory Deficits, Normal Mood/Affect Skin: Normal Color, Warm/Dry Lymphatic: No Adenopathy Results Lab Laboratory Tests 12/23/19 22:45 12/23/19 23:04 12/24/19 03:09 12/25/19 03:05 Assessment/Plan Assessment/Plan Acute on chronic respiratory failure -BiPAP - Continue HS and PRN -Trial off BiPAP today for meals COPDAE -Solumedrol -Duoneb -BiPAP Critical Care: Critically Ill Patient WESLEY ALMAGUER DO Dec 25, 2019 05:11
--- NOTE | 2019-12-25 05:52 | Diagnostic Imaging Report ---
Portable erect AP chest at 340 hours. INDICATION: COPD exacerbation. FINDINGS: The heart size is within normal limits and stable when compared to 12/24/2019. The carotid bronchovascular markings in the right infrahilar region seen previously are again evident and no different. The lungs remain generally clear. There is no evidence for failure, pneumonia or for pleural effusion. The mediastinum is not widened. The osseous structures are intact. IMPRESSION: Stable chest. There has been no adverse change since the prior exam. Dictated by: Dictated on workstation # [id number]
[2019-12-25] MEDS: ENOXAPARIN 40 MG/0.4 ML (LOVENOX) SYR SC SCH (06:06)
[2019-12-25] MEDS: RT-BUDESONIDE NEBS 0.5 MG/2ML (PULMICORT) AMP INH SCH ×2 (06:47→18:17)
[2019-12-25] MEDS: PANTOPRAZOLE 40 MG (PROTONIX) VIAL IV SCH (07:53)
[2019-12-25] MEDS: NS IV 1000 ML 1,000 ML IV SCH ×2 (07:58→18:10)
--- NOTE | 2019-12-25 09:23 | NUR ---
CM/SS: Telephone call to Cira Myers RN Case Manager - [facility]. Left message for her to call in reference to pt.
--- NOTE | 2019-12-25 09:55 | NUR ---
CM/SS: Visited with pt as to plan for discharge Plan: Pt to return home with no identified services at this time Summary: Pt is ready to go home and reports feeling better. Pt is updated on the status of reaching out to [facility]. outside production inspector is Cira Yeager, however not return call as of this time. Pt reports having oxygen at home wearing in round the clock as well as bipap at night. This worker will follow up.
--- NOTE | 2019-12-25 10:48 | Progress Note - Hospitalist ---
Subjective HPI/CC On Admission Date Seen by Provider: Dec 25, 2019 Time Seen by Provider: 09:15 CC: SOB HPI: This is a 54yoWF with a PMH of severe COPD, that presented to the ER with lethargy and somnolence found to have hypercapnic hypoxic respiratory failure acute on chronic and currently she is on biPAP and is slightly anxious and she may very well end up being intubated like she has in the past. ABG has looked improved but Pt appears to have diminished breath sounds in all henderson and limited air movement. Subjective/Events-last exam Patient says she feels better than she had but remains dyspneic with talking. Her oxygen saturations drop into the high 70s and low 80s with any movement. Review of Systems Pulmonary: Dyspnea Neurological: Weakness Focused Exam Lactate Level 12/23/19 22:45: Lactic Acid Level 0.86 Objective Exam Vital Signs Vital Signs Date Time Temp Pulse Resp B/P (MAP) Pulse Ox O2 Delivery O2 Flow Rate FiO2 12/25/19 10:30 94 High Flow N/C 12.00 12/25/19 08:00 94 22 133/84 (100) 12/25/19 07:13 36.1 12/25/19 04:00 55 Capillary Refill : Less Than 3 Seconds General Appearance: Chronically ill, Obese HEENT: Normal ENT Inspection Neck: Full Range of Motion, Normal Inspection, Non Tender, Supple Respiratory: Lungs Clear, Decreased Breath Sounds, Other (Poor air movement) Cardiovascular: Regular Rate, Rhythm, No Edema, No Gallop, No Murmur Gastrointestinal: Normal Bowel Sounds, Non Tender, Soft Back: Normal Inspection Extremity: No Pedal Edema Neurologic/Psychiatric: Alert, Oriented x3, Normal Mood/Affect Skin: Normal Color Results/Procedures Lab Laboratory Tests 12/25/19 03:05 Patient resulted labs reviewed. Assessment/Plan Assessment and Plan Assess & Plan/Chief Complaint Acute on chronic respiratory failure- h/o VDRF COPD Smoker Type II diabetes Morbid obesity Plan to continue aggressive pulmonary toilet and steroids Critical Care Critically Ill Patient Clinical Quality Measures DVT/VTE Risk/Contraindication: Risk Factor Score Per Nursin RFS Level Per Nursing on Admit: 4+=Very High JEFF DURBIN MD Dec 25, 2019 10:48
[2019-12-25] MEDS ORDERED: inSUlin ASPART (NovoLOG) 1 UNIT/0.01 ML (CHARGE PER UNIT) SQ SCH (19:15)
[2019-12-25] MEDS: MUPIROCIN 2% OINT 22 GM (BACTROBAN) TUBE TOP SCH (21:23)
[2019-12-26] VITALS (12 sets, daily range): BP systolic 114–168; BP diastolic 74–118
[2019-12-26] MEDS: methylPREDNISolone 40 MG/ML (Solu-MEDROL) VIAL IV SCH ×2 (00:05→05:47)
[2019-12-26] MEDS ORDERED: ACETAMINOPHEN 325 MG TABLET ONE (01:52)
[2019-12-26] MEDS ORDERED: ACETAMINOPHEN 325 MG TABLET PO ONE (02:00)
[2019-12-26] MEDS: RT-ALBUTEROL/IPRATROPIUM 3 ML (DUONEB) VIAL IH SCH ×6 (02:21→22:00)
[2019-12-26 03:24] LABS: BASOPHILS % (AUTO) 0 % (0-10); EOSINOPHILS % (AUTO) 0 % (0-10); HEMATOCRIT 41 % (35-52); HEMOGLOBIN 12.2 G/DL (11.5-16.0); LYMPHOCYTES # (AUTO) 0.5 X 10^3 (1.0-4.0); LYMPHOCYTES % (AUTO) 6 % (12-44); MEAN CORPUSCULAR HEMOGLOBIN 28 PG (25-34); MEAN CORPUSCULAR HGB CONC 30 G/DL (32-36); MEAN CORPUSCULAR VOLUME 94 FL (80-99); MEAN PLATELET VOLUME 9.3 FL (7.4-10.4); MONOCYTES # (AUTO) 0.2 X 10^3 (0.0-1.0); MONOCYTES % (AUTO) 3 % (0-12); NEUTROPHILS # (AUTO) 6.8 X 10^3 (1.8-7.8); NEUTROPHILS % (AUTO) 91 % (42-75); PLATELET COUNT 163 10^3/uL (130-400); RED CELL DISTRIBUTION WIDTH 14.7 % (10.0-14.5); WHITE BLOOD COUNT 7.4 10^3/uL (4.3-11.0)
[2019-12-26 03:37] LABS: CHLORIDE 98 MMOL/L (98-107); SODIUM 140 MMOL/L (135-145)
[2019-12-26 03:38] LABS: CALCIUM 9.3 MG/DL (8.5-10.1)
[2019-12-26 03:39] LABS: GLUCOSE 317 MG/DL (70-105)
[2019-12-26 03:40] LABS: CARBON DIOXIDE 34 MMOL/L (21-32)
[2019-12-26 03:42] LABS: PHOSPHORUS 2.4 MG/DL (2.3-4.7)
[2019-12-26 03:43] LABS: BUN/CREATININE RATIO 26; CREATININE SERUM 0.91 MG/DL (0.60-1.30); GFR ESTIMATED > 60
[2019-12-26] MEDS: POTASSIUM CL 10MEQ/50ML IVPB 50 ML IV SCH (04:20)
[2019-12-26] MEDS: MAGNESIUM 1 GM/100 ML IVPB 100 ML IV SCH (04:20)
[2019-12-26] MEDS: KCL 20 MEQ TAB (K-DUR) PO SCH (04:20)
[2019-12-26] MEDS: ENOXAPARIN 40 MG/0.4 ML (LOVENOX) SYR SC SCH (05:28)
[2019-12-26] MEDS: NS IV 1000 ML 1,000 ML IV SCH (05:46)
[2019-12-26] MEDS: inSUlin ASPART (NovoLOG) 1 UNIT/0.01 ML (CHARGE PER UNIT) SQ SCH ×4 (05:47→23:11)
[2019-12-26] MEDS: RT-BUDESONIDE NEBS 0.5 MG/2ML (PULMICORT) AMP INH SCH ×2 (07:06→18:59)
[2019-12-26] MEDS: PANTOPRAZOLE 40 MG (PROTONIX) VIAL IV SCH (07:50)
[2019-12-26] MEDS: MUPIROCIN 2% OINT 22 GM (BACTROBAN) TUBE TOP SCH ×2 (07:50→20:02)
--- NOTE | 2019-12-26 08:38 | Diagnostic Imaging Report ---
EXAMINATION: Chest radiograph, portable AP view. DATE: 12/26/2019 4:14 AM hours. INDICATION: 54-year-old female, COPD exacerbation. Shortness of breath. COMPARISON: December 25, 2019. FINDINGS: Heart size and mediastinal contours are unremarkable. There is no identified pneumothorax. There is no large pleural effusion. There is no identified interval focal airspace consolidation. Radiographic appearance of the chest is largely unchanged since at least September 15, 2019. IMPRESSION: 1. No evidence of an interval acute cardiopulmonary abnormality. Dictated by: Dictated on workstation # [id number]
[2019-12-26] MEDS ORDERED: FLUTICASONE NASAL SPRAY (FLONASE) 16 GM BTL NS PRN (11:00)
[2019-12-26] MEDS ORDERED: TIOTROPIUM BROMIDE (SPIRIVA) 5'S INHALER IH PRN (11:00)
[2019-12-26] MEDS ORDERED: LORATADINE (CLARITIN) 10 MG TAB PO PRN (11:00)
[2019-12-26] MEDS ORDERED: RT-ALBUTEROL SULF 2.5 MG/3 ML PRE-MIX VIAL INH PRN (11:00)
[2019-12-26] MEDS ORDERED: RT-ALBUTEROL SULF 2.5 MG/3 ML PRE-MIX VIAL IH PRN (11:00)
--- NOTE | 2019-12-26 11:04 | Progress Note - Hospitalist ---
Subjective HPI/CC On Admission Date Seen by Provider: Dec 26, 2019 Time Seen by Provider: 10:00 CC: SOB HPI: This is a 54yoWF with a PMH of severe COPD, that presented to the ER with lethargy and somnolence found to have hypercapnic hypoxic respiratory failure acute on chronic and currently she is on biPAP and is slightly anxious and she may very well end up being intubated like she has in the past. ABG has looked improved but Pt appears to have diminished breath sounds in all henderson and limited air movement. Subjective/Events-last exam patient is looking good this morning. She can talk without any shortness of breath. Her oxygen saturations on 10 L high flow are in the 19 high 90s. She is being transferred to the floor today. Blood sugars are running high. Review of Systems Neurological: Weakness Focused Exam Lactate Level 12/23/19 22:45: Lactic Acid Level 0.86 Objective Exam Vital Signs Vital Signs Date Time Temp Pulse Resp B/P (MAP) Pulse Ox O2 Delivery O2 Flow Rate FiO2 12/26/19 10:55 93 High Flow N/C 6.00 12/26/19 08:00 75 34 161/79 (106) 12/26/19 07:19 36.2 12/26/19 00:00 45 Capillary Refill : Less Than 3 Seconds General Appearance: Chronically ill, Obese Neck: Limited Range of Motion Respiratory: Lungs Clear, No Accessory Muscle Use, No Respiratory Distress, Decreased Breath Sounds Cardiovascular: Regular Rate, Rhythm, No Gallop, No Murmur, Normal Peripheral Pulses Gastrointestinal: Normal Bowel Sounds, Non Tender, Soft Rectal: Deferred Back: Normal Inspection Extremity: No Pedal Edema Neurologic/Psychiatric: Alert, Oriented x3, No Motor/Sensory Deficits, Normal Mood/Affect, student services vice president II-XII Norm as Tested Skin: Normal Color, Warm/Dry Results/Procedures Lab Laboratory Tests 12/26/19 03:04 Patient resulted labs reviewed. Imaging: Reviewed Imaging Report Assessment/Plan Assessment and Plan Assess & Plan/Chief Complaint Acute on chronic respiratory failure- h/o VDRF COPD Smoker Type II diabetes Morbid obesity Plan to transfer to the fourth floor changed to oral steroids, with possible d ischarge tomorrow Critical Care Critically Ill Patient Clinical Quality Measures DVT/VTE Risk/Contraindication: Risk Factor Score Per Nursin RFS Level Per Nursing on Admit: 4+=Very High SANDNESS,JEFF M MD Dec 26, 2019 11:04
[2019-12-26] MEDS ORDERED: UMECLIDINIUM BROMIDE (INCRUSE ELLIPTA) 7'S IH PRN (11:15)
[2019-12-26] MEDS: UMECLIDINIUM BROMIDE (INCRUSE ELLIPTA) 7'S IH SCH (15:21)
[2019-12-26] MEDS ORDERED: glipiZIDE 5 MG (GLUCOTROL) TAB PO SCH (18:00)
[2019-12-26] MEDS: predniSONE 20 MG TAB PO SCH (18:34)
[2019-12-26] MEDS: metFORMIN 500 MG (GLUCOPHAGE) TAB PO SCH (18:34)
[2019-12-26] MEDS: ACETAMINOPHEN 500 MG TAB (TYLENOL) PO PRN (18:39)
[2019-12-26] MEDS: ADVAIR HFA 115/21 MCG INHALER 8 GM IH SCH (18:59)
--- NOTE | 2019-12-26 19:30 | NUR ---
PCT NOTIFIED THIS RN THAT PT'S URINE IS EXTREMELY CLOUDY AND FOUL SMELLING. GIFTY NOTIFIED.
[2019-12-26] MEDS ORDERED: MONTELUKAST 10 MG (SINGULAIR) TAB PO SCH (21:00)
[2019-12-26 21:37] LABS: CLARITY,URINE VERY CLOUDY; COLOR,URINE YELLOW; PH,URINE 8.5 (5-9)
[2019-12-26 21:38] LABS: BILIRUBIN,URINE NEGATIVE (NEGATIVE); GLUCOSE, URINE (UA) NEGATIVE (NEGATIVE); KETONES,URINE NEGATIVE (NEGATIVE); LEUKOCYTE ESTERASE ,URINE 1+ (NEGATIVE); NITRITE,URINE POSITIVE (NEGATIVE); PROTEIN,URINE 2+ (NEGATIVE)
[2019-12-26 21:39] LABS: AMORPHOUS SEDIMENT,UR LARGE AMOR PHOSPHATE /LPF; BACTERIA,URINE LARGE /HPF; TRIPLE PHOSPHATE CRYSTAL,UR FEW /LPF
[2019-12-27] MEDS: RT-ALBUTEROL/IPRATROPIUM 3 ML (DUONEB) VIAL IH SCH ×3 (02:15→09:20)
[2019-12-27 03:57] VITALS: BP 163/98
[2019-12-27] MEDS: ENOXAPARIN 40 MG/0.4 ML (LOVENOX) SYR SC SCH (05:29)
[2019-12-27 05:49] LABS: BASOPHILS % (AUTO) 0 % (0-10); EOSINOPHILS % (AUTO) 0 % (0-10); HEMATOCRIT 42 % (35-52); LYMPHOCYTES # (AUTO) 0.7 X 10^3 (1.0-4.0); LYMPHOCYTES % (AUTO) 9 % (12-44); MEAN CORPUSCULAR HEMOGLOBIN 29 PG (25-34); MEAN CORPUSCULAR HGB CONC 31 G/DL (32-36); MEAN CORPUSCULAR VOLUME 94 FL (80-99); MEAN PLATELET VOLUME 9.4 FL (7.4-10.4); MONOCYTES # (AUTO) 0.2 X 10^3 (0.0-1.0); MONOCYTES % (AUTO) 3 % (0-12); NEUTROPHILS # (AUTO) 6.5 X 10^3 (1.8-7.8); NEUTROPHILS % (AUTO) 88 % (42-75); PLATELET COUNT 152 10^3/uL (130-400); RED CELL DISTRIBUTION WIDTH 14.6 % (10.0-14.5); WHITE BLOOD COUNT 7.3 10^3/uL (4.3-11.0)
[2019-12-27 06:12] LABS: BUN/CREATININE RATIO 27; CALCIUM 9.3 MG/DL (8.5-10.1); CARBON DIOXIDE 32 MMOL/L (21-32); CHLORIDE 98 MMOL/L (98-107); CREATININE SERUM 0.74 MG/DL (0.60-1.30); GFR ESTIMATED > 60; GLUCOSE 187 MG/DL (70-105); PHOSPHORUS 2.7 MG/DL (2.3-4.7); POTASSIUM 5.1 MMOL/L (3.6-5.0); SODIUM 138 MMOL/L (135-145)
[2019-12-27] MEDS: UMECLIDINIUM BROMIDE (INCRUSE ELLIPTA) 7'S IH SCH (06:30)
[2019-12-27] MEDS ORDERED: LEVOTHYROXINE 25 MCG (LEVOTHROID) TAB PO SCH (06:30)
[2019-12-27] MEDS: RT-BUDESONIDE NEBS 0.5 MG/2ML (PULMICORT) AMP INH SCH (06:30)
[2019-12-27] MEDS ORDERED: LEVOTHYROXINE 150 MCG (LEVOTHROID) TAB PO SCH (06:30)
[2019-12-27] MEDS: ADVAIR HFA 115/21 MCG INHALER 8 GM IH SCH (06:30)
[2019-12-27] MEDS: inSUlin ASPART (NovoLOG) 1 UNIT/0.01 ML (CHARGE PER UNIT) SQ SCH ×2 (06:43→11:46)
[2019-12-27] MEDS ORDERED: glipiZIDE 5 MG (GLUCOTROL) TAB PO SCH (07:00)
[2019-12-27 07:12] VITALS: BP 160/64
[2019-12-27] MEDS: predniSONE 20 MG TAB PO SCH (08:05)
[2019-12-27] MEDS: metFORMIN 500 MG (GLUCOPHAGE) TAB PO SCH (08:05)
[2019-12-27] MEDS: MUPIROCIN 2% OINT 22 GM (BACTROBAN) TUBE TOP SCH (08:05)
[2019-12-27] MEDS ORDERED: ASPIRIN 81 MG CHEW (CHILDREN'S ASA) PO SCH (09:00)
[2019-12-27] MEDS ORDERED: PARoxetine 20 MG (PAXIL) TAB PO SCH (09:00)
[2019-12-27] MEDS ORDERED: FUROSEMIDE 40 MG (LASIX) TAB PO SCH (09:00)
[2019-12-27] MEDS: ACETAMINOPHEN 500 MG TAB (TYLENOL) PO PRN (09:57)
[2019-12-27 11:13] VITALS: BP 160/79
[2019-12-27] MEDS ORDERED: LEVO500T2 PO (12:12)
[2019-12-27] MEDS ORDERED: PRED10TA22 PO (12:12)
--- NOTE | 2019-12-27 12:25 | Discharge Summary ---
Diagnosis/Chief Complaint Date of Admission Dec 24, 2019 at 01:15 Date of Discharge Discharge Date: Dec 27, 2019 Discharge Time: 14:00 Admission Diagnosis Assessment: Acute on chronic respiratory failure h/o VDRF COPD Smoker OHS Plan: BiPAP Monitor closely May need intubation [facility] Discharge Diagnosis Exacerbation of COPD with history of hypercapnic respiratory failure Urinary tract infection O2 dependent COPD Type II diabetes Hypertension Hypothyroidism Tobaccoism Discharge Summary Discharge Physical Exam Allergies: Coded Allergies: NKANo Known Allergies (Unverified Allergy, Mild, 05/01/09) Vitals & I&Os Vital Signs Date Time Temp Pulse Resp B/P (MAP) Pulse Ox O2 Delivery O2 Flow Rate FiO2 12/27/19 11:13 36.7 71 20 160/79 (106) 94 High Flow N/C 6.00 12/26/19 00:00 45 General Appearance: Obese, Other HEENT: Normal ENT Inspection, Other (Exophthalmus) Respiratory: Lungs Clear, Decreased Breath Sounds Cardiovascular: Regular Rate, Rhythm, No Gallop, Normal Peripheral Pulses Gastrointestinal: Soft Extremity: No Pedal Edema Neurologic/Psychiatric: Alert, Oriented x3, No Motor/Sensory Deficits, Normal Mood/Affect Hospital Course This is a 54-year-old white female with previous episodes of ventilator dependent respiratory failure that presented with increased shortness of breath and hypercapnic respiratory failure. The patient escaped being intubated again turned around rather quickly and is adamant she is going home today. Oxygen sat urations are 92-90 percent on 5 L nasal cannula which is what she wears home and she also has her CPAP mask at home. Enriquez catheter was discontinued.. , Urine grew out 2 different organisms Proteus and enterococcus, both sensitive to Levaquin and she is being discharged on the Levaquin. At the time of this discharge. The patient is back to baseline. Blood sugars were elevated but will followed with sliding-scale insulin. Labs (last 24 hrs) Laboratory Tests 12/26/19 15:51: Glucometer 340H 12/26/19 16:41: Glucometer 311H 12/26/19 20:34: Glucometer 255H 12/26/19 20:35: Urine Color YELLOW, Urine Clarity VERY CLOUDYH, Urine pH 8.5, Urine Specific [place] 1.010L, Urine Protein 2+H, Urine Glucose (UA) NEGATIVE, Urine Ketones NEGATIVE, Urine Nitrite POSITIVEH, Urine Bilirubin NEGATIVE, Urine Urobilinogen 1.0, Urine Leukocyte Esterase 1+H, Urine RBC (Auto) TRACE-L, Urine RBC 2-5H, Urine WBC 10-25H, Urine Squamous Epithelial Cells NONE, Urine Crystals PRESENTH, Urine Triple Phosphate Crystals FEWH, Urine Amorphous Sediment LARGE DORCAS PHOSPHATEH, Urine Bacteria LARGEH, Urine Casts NONE, Urine Mucus SMALLH, Urine Culture Indicated YES 12/27/19 05:33: White Blood Count 7.3, Red Blood Count 4.47, Hemoglobin 13.0, Hematocrit 42, Mean Corpuscular Volume 94, Mean Corpuscular Hemoglobin 29, Mean Corpuscular Hemoglobin Concent 31L, Red Cell Distribution Width 14.6H, Platelet Count 152, Mean Platelet Volume 9.4, Neutrophils (%) (Auto) 88H, Lymphocytes (%) (Auto) 9L, Monocytes (%) (Auto) 3, Eosinophils (%) (Auto) 0, Basophils (%) (Auto) 0, N eutrophils # (Auto) 6.5, Lymphocytes # (Auto) 0.7L, Monocytes # (Auto) 0.2, Eosinophils # (Auto) 0.0, Basophils # (Auto) 0.0, Sodium Level 138, Potassium Level 5.1H, Chloride Level 98, Carbon Dioxide Level 32, Anion Gap 8, Blood Urea Nitrogen 20H, Creatinine 0.74, Estimat Glomerular Filtration Rate > 60, BUN/Creatinine Ratio 27, Glucose Level 187H, Calcium Level 9.3, Phosphorus Level 2.7, Magnesium Level 2.0 12/27/19 10:33: Glucometer 229H Microbiology 12/26/19 Urine Culture - Preliminary, Resulted Proteus species 12/24/19 MRSA Screen - Final, Complete 12/23/19 Blood Culture - Preliminary, Resulted No growth Patient resulted labs reviewed. Pending Labs Laboratory Tests 12/27/19 05:33: White Blood Count 7.3, Red Blood Count 4.47, Hemoglobin 13.0, Hematocrit 42, Mean Corpuscular Volume 94, Mean Corpuscular Hemoglobin 29, Mean Corpuscular Hemoglobin Concent 31, Red Cell Distribution Width 14.6, Platelet Count 152, Mean Platelet Volume 9.4, Neutrophils (%) (Auto) 88, Lymphocytes (%) (Auto) 9, Monocytes (%) (Auto) 3, Eosinophils (%) (Auto) 0, Basophils (%) (Auto) 0, Ne utrophils # (Auto) 6.5, Lymphocytes # (Auto) 0.7, Monocytes # (Auto) 0.2, Eosinophils # (Auto) 0.0, Basophils # (Auto) 0.0, Sodium Level 138, Potassium Level 5.1, Chloride Level 98, Carbon Dioxide Level 32, Anion Gap 8, Blood Urea Nitrogen 20, Creatinine 0.74, Estimat Glomerular Filtration Rate > 60, BUN/Creatinine Ratio 27, Glucose Level 187, Calcium Level 9.3, Phosphorus Level 2.7, Magnesium Level 2.0 12/27/19 10:33: Glucometer 229 Imaging: Reviewed Imaging Report Discussion & Recommendations Discharge Planning: <30 minutes discharge planning Discharge Home Medications: Active Scripts Active Prednisone 10 Mg Tab.ds.pk 10 Mg PO DAILY Take 6 tabs(60mg)daily,decrease by 1 tab(10mg)every other day. Levaquin (Levofloxacin) 500 Mg Tablet 500 Mg PO DAILY 7 Days Reported [place] Sprinkle (Metoprolol Succinate) 50 Mg Cap.spr.24 50 Mg PO DAILY Heartburn Relief (Famotidine) 10 Mg Tablet 20 Mg PO BID Tylenol Extra Strength (Acetaminophen) 500 Mg Tablet 1,500 Mg PO Q8H PRN Aspirin 81 Mg Tab.chew 81 Mg PO DAILY Glipizide 5 Mg Tablet 5 Mg PO HS Glipizide 5 Mg Tablet 10 Mg PO DAILY TAKES 2 (5MG) TABS Fluticasone-Salmeterol 250-50 (Fluticasone Propion/Salmeterol) 1 Each Blst.w.dev 1 Puff INH BID [place]-3 Fish Oil 1,000 mg Sftg ([place]-3/Dha/Epa/Fish Oil) 1 Each Capsule 2,000 Mg PO DAILY Albuterol Sulfate 2.5 Mg/3 Ml Vial.neb 3 Ml NEB Q4-6 H PRN Montelukast Sodium 10 Mg Tablet 10 Mg PO HS Loratadine 10 Mg Tablet 10 Mg PO DAILY PRN Metformin HCl 500 Mg Tablet 500 Mg PO BID Levothyroxine Sodium 175 Mcg Tablet 175 Mcg PO DAILY Fluticasone Propionate 16 Gm [place].susp 2 [place] NS DAILY PRN Atorvastatin Calcium 10 Mg Tablet 10 Mg PO DAILY Potassium Chloride 10 Meq Tab.er.prt 10 Meq PO DAILY Furosemide 40 Mg Tablet 40 Mg PO DAILY Proair Hfa (Albuterol Sulfate) 1 Puff Puff 2 Puff INH Q6H PRN Spiriva (Tiotropium [place]) 1 Inh Aerp 1 Cap INH 1300 PRN Paroxetine HCl 40 Mg Tablet 40 Mg PO 1500 Condition at discharge Stable Instructions to patient/family Please see electronic discharge instructions given to patient. Clinical Quality Measures DVT/VTE Risk/Contraindication: Risk Factor Score Per Nursin RFS Level Per Nursing on Admit: 4+=Very High Copy Copies To 1: [facility]JEFF [facility]ITAL MD Dec 27, 2019 12:25
== END 2019-12-27 14:26 | disposition home or self-care (01) | DRG 189 ==
LOC: ER 22:04 → EDUNIT# 22:04 → ICU 12-24 01:15 → 4TH 12-26 15:58
PROVIDERS: ADMIT Internal Medicine; ATTEND Internal Medicine
DX: J96.22 Acute and chronic respiratory failure with hypercapnia (principal); J96.21 Acute and chronic respiratory failure with hypoxia; J43.9 Emphysema, unspecified; N39.0 Urinary tract infection, site not specified; E66.2 Morbid (severe) obesity with alveolar hypoventilation; E11.9 Type 2 diabetes mellitus without complications; I10 Essential (primary) hypertension; F17.210 Nicotine dependence, cigarettes, uncomplicated; E78.00 Pure hypercholesterolemia, unspecified; E03.9 Hypothyroidism, unspecified; F41.9 Anxiety disorder, unspecified; F32.9 Major depressive disorder, single episode, unspecified; B96.4 Proteus (mirabilis) (morganii) as the cause of diseases classified elsewhere; B95.2 Enterococcus as the cause of diseases classified elsewhere; Z79.84 Long term (current) use of oral hypoglycemic drugs; Z99.81 Dependence on supplemental oxygen; Z68.36 Body mass index [BMI] 36.0-36.9, adult
CPT/HCPCS: 36415; 36600; 51702; 71045; 80048; 80053; 80306; 81000; 82805; 82962; 83605; 83735; 83880; 84100; 85007; 85025; 85027; 85610; 85730; 86141; 87040; 87077; 87081; 87088; 87184; 87186; 93005; 94640; 94644; 94660; 94760; 96361; 96374

== ENCOUNTER 2020-01-29 23:28 | Inpatient (IN) | payer MEDICAID ==
[~2020-01-29] VITALS: Ht 167 cm; Wt 98.2 kg
[~2020-01-29 23:28] MED LIST changes: +FAMO10TA16 PO; +LEVO500T2 PO; +METO50CA PO
--- OUTSIDE RECORDS SUMMARY | 2020-01-29 23:37 | XMS REPORT ---
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 Name Role Phone DAYRON Cummins Unavailable PROBLEMS Type Condition ICD9-CM Code AIO10-SD Code Onset Dates Condition S tatus SNOMED Code Problem Urinary incontinence R32 Active 763587105 Problem Hypothyroidism E03.9 Active 40866 008 Problem Allergic rhinitis J30.9 Active 61 719371 Problem 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 Active 74713695 Problem Microcytic anemia D50.9 Active 23 0588732 Problem Essential hypertension I10 Active 13840077 Problem Type 2 diabetes mellitus with other specified complication E11.69 Active 61282839 Problem Tobacco abuse Z72.0 Active 618565 000 Problem Parotiditis K11.20 Active 38286187 Problem Gastroesophageal reflux disease without esophagitis K21.9 Active 832842222 Problem Type II diabetes mellitus E11.9 Acti ve 37523017 Problem On home oxygen therapy Z99.81 Active 214750055762 Problem Morbid (severe) obesity due to excess calories E66 .01 Active 776363417 Problem Hyperlipidemia LDL goal <70 E78.5 Ac tive 39759062 Problem Seasonal allergic rhinitis due to pollen J30.1 Active 51702371 Problem Chronic bronchitis, unspecified chronic bronchitis type J42 Active 94860237 ALLERGIES No Information ENCOUNTERS Encounter Location Date Diagnosis [facility] [address] [facility] [id number] [place] [address] November, [facility] [address] [facility] [id number] [place] [address] November, Hypothyroidism E03.9 [facility] [address] [facility] [id number] [address] [place] [address] November, Essential hypertension I10 [facility] [address] [facility] [id number] [address] [place] [address] November, [facility] [address] [facility] [id number] [place] [address] November, [facility] [address] [place] [id number] [place] [address] November, Tobacco use disorder F17.200 ; COPD (chronic obstructive pulmonary disease) with emphysema J43.9 ; Encounter for tobacco use cessation counseling Z71.6 ; On home oxygen therapy Z99.81 ; Type 2 diabetes mellitus with other specified complication E11.69 ; Tobacco abuse Z72.0 and Morbid (severe) obesity due to excess calories E66.01 [facility] [address] [facility] [id number] [address] [place] [address] Oct, [facility] [address] [facility] [id number] [address] [place] [address] Oct, [facility] [address] [place] [id number] [address] [place] [address] Oct, [facility] [address] [facility] [id number] [address] [place] [address] Oct, Type II diabetes mellitus E1 1.9 [facility] [address] [facility] [id number] [place] [address] Oct, [facility] [address] [facility] [id number] [address] [place] [address] Sep, [facility] [address] [place] [id number] [address] [place] [address] 16 Sep, 2019 COPD (chronic obstructive pu lmonary disease) with emphysema J43.9 [facility] [address] [facility] [id number] [address] [place] [address] 02 Sep, 2019 [facility] [address] [facility] [id number] [address] [place] [address] Aug, [facility] [address] [facility] [id number] [place] [address] 06 Aug, 2019 Essential hypertension I10 [facility] [address] [facility] [id number] [address] [place] [address] Jul, Parotiditis K11.20 [facility] [address] [facility] [id number] [address] [place] [address] Jul, [facility] [address] [facility] [id number] [address] [place] [address] Jul, Type II diabetes mellitus E1 1.9 [facility] [address] [facility] [id number] [address] [place] [address] Jul, [facility] [address] [facility] [id number] [address] [place] [address] Jul, Pneumonia due to infectious organism, unspecified laterality, unspecified part of lung J18.9 ; On home oxygen therapy Z99.81 ; Type II diabetes mellitus E11.9 ; Tobacco use disorder F17.200 and Encounter for tobacco use cessation counseling Z71.6 [facility] [address] [facility] [id number] [address] [place] [address] Apr, [facility] [address] [facility] [id number] [address] [place] [address] Mar, Acute non-recurrent frontal sinusitis J01.10 [facility] [address] [facility] [id number] [address] [place] [address] 17 Mar, 2019 Type 2 diabetes mellitus wit hout complications E11.9 [facility] [address] [facility] [id number] [address] [place] [address] Mar, Type 2 diabetes mellitus wit hout complications E11.9 ; Essential hypertension I10 and Chronic bronchitis, unspecified chronic bronchitis type J42 [facility] [address] [facility] [id number] [address] [place] [address] Feb, [facility] [address] [facility] [id number] [address] [place] [address] Dec, [facility] [address] [place] [id number] [address] [place] [address] Dec, [facility] [address] [id number] [address] [place] [address] November, [facility] [place] [facility] [address] [facility] [address] [id number] [place] [address] November, [facility] [place] [facility] [facility] [address] [id number] [place] [address] November, [facility] [place] [facility] [address] [facility] [address] [id number] [address] November, Allergic rhinitis J30.9 [facility] [address] [id number] [address] [place] [address] November, [facility] [address] [id number] [address] [place] [address] November, [facility] [address] [id number] [address] [place] [address] November, [facility] [address] [id number] [address] [place] [address] Oct, [facility] [address] [id number] [address] [place] [address] Oct, Essential hypertension I10 [facility] [address] [id number] [address] [place] [address] Oct, [facility] [address] [id number] [address] [place] [address] Oct, [facility] [address] [id number] [address] [place] [address] Oct, [facility] [address] [id number] [address] [place] [address] Oct, [facility] [address] [id number] [address] [place] [address] Oct, [facility] [address] [id number] [address] [place] [address] Oct, Shortness of breath R06.02 a nd Oxygen decrease R09.02 [facility] [address] [facility] [id number] [address] [place] [address] Oct, [facility] [address] [facility] [id number] [address] [place] [address] Sep, COPD (chronic obstructive pu lmonary disease) with emphysema J43.9 ; On home oxygen therapy Z99.81 and Hypothyroidism E03.9 [facility] [address] [facility] [id number] [address] [place] [address] Sep, [facility] [address] [facility] [id number] [address] [place] [address] Sep, [facility] [address] [place] [id number] [address] [place] [address] Sep, Acute on chronic respiratory failure with hypoxia J96.21 ; Hypothyroidism E03.9 ; COPD (chronic obstructive pulmonary disease) with emphysema J43.9 ; Essential hypertension I10 ; Type 2 diabetes mellitus with other specified complication E11.69 ; senior care current use of insulin Z79.4 and Hyperlipidemia LDL goal <70 E78.5 [facility] [address] [facility] [id number] [address] [place] [address] Sep, Allergic rhinitis J30.9 [facility] [address] [place] [id number] [address] [place] [address] Aug, Allergic rhinitis J30.9 [facility] [address] [facility] [id number] [address] [place] [address] Aug, [facility] [address] [place] [id number] [address] [place] [address] Aug, [facility] [address] [place] [id number] [address] [place] [address] Aug, [facility] [address] [facility] [id number] [address] [place] [address] Jul, [facility] [address] [place] [id number] [address] [place] [address] Jul, Type 2 diabetes mellitus wit h other specified complication E11.69 [facility] [address] [id number] [address] [place] [address] Jun, [facility] [address] [facility] [id number] [address] [place] [address] May, Hyperlipidemia LDL goal <70 E78.5 ; COPD (chronic obstructive pulmonary disease) with emphysema J43.9 and Encounter for immunization Z23 [facility] [address] [facility] [id number] [address] [place] [address] May, [facility] [address] [facility] [id number] [address] [place] [address] May, Acute upper respiratory infe ction J06.9 [facility] [address] [facility] [id number] [address] [place] [address] May, Essential hypertension I10 [facility] [address] [facility] [id number] [address] [place] [address] May, Essential hypertension I10 [facility] [address] [id number] [address] [place] [address] Apr, Essential hypertension I10 [facility] [address] [id number] [address] [place] [address] Apr, [facility] [address] [facility] [id number] [address] [place] [address] Apr, COPD (chronic obstructive pu lmonary disease) with emphysema J43.9 [facility] [address] [id number] [address] [place] [address] Apr, [facility] [address] [facility] [id number] [address] [place] [address] Mar, [facility] [address] [facility] [id number] [address] [place] [address] Feb, Type 2 diabetes mellitus wit h other specified complication E11.69 ; senior care current use of insulin Z79.4 ; Essential hypertension I10 ; Hyperlipidemia LDL goal <70 E78.5 ; COPD (chronic obstructive pulmonary disease) with emphysema J43.9 ; Microcytic anemia D50.9 ; Morbid (severe) obesity due to excess calories E66.01 ; Body mass index (BMI) of 39.0-39.9 in adult Z68.39 ; Hypothyroidism E03.9 and Seasonal allergic rhinitis due to pollen J30.1 [place] [id number] [address] November, Pneumonia of right lower lob e [...] without esophagitis K21.9 and Allergic rhinitis J30.9 [facility] [address] [address] November, [place] [address] [address] Sep, [place] [address] [address] Sep, [place] [address] [address] Sep, [place] [address] [address] Sep, [facility] [address] [address] Jul, Encounter for immunization Z 23 [facility] [address] [place] [id number] [address] [place] [address] Jun, Subacute maxillary sinusitis J01.00 [place] [address] [place] [address] [place] [address] May, [facility] [address] [facility] [id number] [address] [place] [address] May, [facility] [address] [place] [id number] [address] [place] [address] May, Type II diabetes mellitus E1 1.9 ; Hypothyroidism E03.9 ; COPD (chronic obstructive pulmonary disease) with emphysema J43.9 ; Cough R05 ; COPD with exacerbation J44.1 and Pneumonia of right lower lobe due to infectious organism J18.1 [facility] [address] [place] [id number] [address] [place] [address] Mar, Hyperlipidemia, unspecified hyperlipidemia type E78.5 [place] [address] [place] [id number] [place] [address] Mar, Hypothyroidism E03.9 and Hyp erlipidemia, unspecified hyperlipidemia type E78.5 [place] [address] [place] [id number] [address] [place] [address] Feb, Type II diabetes mellitus E1 1.9 [...] full remission F33.42 and Urinary incontinence R32 [facility] [address] [place] [id number] [address] [place] [address] Jan, [facility] [address] [place] [id number] [address] [place] [address] Jan, [place] [address] [place] [id number] [address] [place] [address] November, [facility] [address] [place] [id number] [address] [place] [address] Sep, Type II diabetes mellitus E1 1.9 [...] and Tinea pedis of both feet B35.[address] [address] Jun, [facility] [address] [address] Jun, Acute upper respiratory infe ction, unspecified J06.9 and Other viral agents as the cause of diseases classified elsewhere B97.[address] [address] May, [address] [address] May, Type 2 diabetes mellitus wit h [...] thrush B37.0 and Encounter for immunization Z23 [place] [address] [place] [id number] [address] [place] [address] Apr, [place] [address] [address] Apr, [address] [address] Mar, [place] [address] [place] [id number] [address] [place] [address] Dec, [place] [id number] [place] [address] 24 Dec, 2015 [facility] [address] [place] [id number] [address] [place] [address] Dec, Encounter for well woman gurinder jaime with routine gynecological exam Z01.419 ; Encounter for screening for malignant neoplasm of cervix Z12.4 ; Screening mammogram, encounter for Z12.31 ; Encounter for screening breast examination Z12.39 ; On home oxygen therapy Z99.81 ; COPD (chronic obstructive pulmonary disease) with emphysema J43.9 ; Heat rash L74.0 ; Type II diabetes mellitus E11.9 and Hypothyroidism E03.9 [facility] [address] [address] November, [place] [address] [address] November, Type II diabetes mellitus E1 1.9 ; Allergic rhinitis J30.9 ; Hypothyroidism E03.9 ; Obesity due to excess calories E66.09 ; Urinary incontinence R32 ; Gastroesophageal reflux disease without esophagitis K21.9 and Essential hypertension I10 [place] [address] [place] [id number] [address] [place] [address] Oct, [place] [address] [place] [id number] [address] [place] [address] Sep, [facility] [address] [place] [id number] [address] [place] [address] Sep, [facility] [address] [place] [id number] [address] [place] [address] Aug, Acute maxillary sinusitis J0 1.00 [facility] [address] [place] [id number] [address] [place] [address] Aug, [facility] [address] [place] [id number] [address] [place] [address] Aug, [facility] [address] [address] Aug, Type II diabetes mellitus E1 1.9 [place] [address] [address] Aug, Type II diabetes mellitus E1 1.9 ; Hypothyroidism E03.9 ; COPD (chronic obstructive pulmonary disease) with emphysema J43.9 ; Obesity due to excess calories E66.09 ; Urinary incontinence R32 ; Anemia D64.9 ; Microcytic anemia D50.9 and Allergic rhinitis J30.9 [place] [address] [address] May, Upper respiratory symptom R0 9.[address] [address] May, Oral thrush B37.[address] [address] Apr, Hypothyroidism E03.9 and Harish rocytic anemia D50.[address] [address] Apr, Encounter for long-term curr ent use of medication Z79.899 ; Hypothyroidism E03.9 ; Microcytic anemia D50.9 ; Type 2 diabetes mellitus without complication E11.9 ; Essential hypertension I10 and Mixed incontinence N39.46 [place] [address] [address] Apr, [place] [address] [address] Mar, [place] [address] [address] Mar, [place] [address] [address] Mar, [place] [address] [address] Mar, [place] [address] [address] Mar, [facility] [address] [facility] [id number] [address] [place] [address] Mar, [facility] [address] [id number] [address] [place] [address] Mar, [facility] [address] [facility] [id number] [address] [place] [address] Feb, Cough 786.2 ; Wheezing 786.0 7 ; Hypothyroidism 244.9 and Encounter for long-term current use of medication V58.69 [facility] [address] [id number] [address] [place] [address] Feb, Diabetes type 2, uncontrolle d 250.02 ; Depression 311 ; Encounter for long-term current use of medication V58.69 and Hypothyroidism 244.9 [facility] [address] [facility] [id number] [address] [place] [address] Feb, [facility] [address] [facility] [id number] [address] [place] [address] Jan, [facility] [address] [facility] [id number] [address] [place] [address] Oct, [facility] [address] [facility] [id number] [address] [place] [address] Oct, [facility] [address] [facility] [id number] [address] [place] [address] Oct, [facility] [address] [facility] [id number] [address] [place] [address] Sep, [facility] [address] [id number] [address] [place] [address] Sep, [facility] [address] [facility] [id number] [address] [place] [address] Sep, [facility] [address] [facility] [id number] [address] [place] [address] Aug, [facility] [address] [facility] [id number] [address] [place] [address] Aug, [facility] [address] [id number] [address] [place] [address], [place] [address] Jul, [facility] [address] [id number] [address] [place] [address] Jul, [facility] [address] [id number] [address] [place] [address], [place] [address] Jul, [facility] [address] [id number] [address] [place] [address], [place] [address] Jul, [facility] [address] [id number] [address] [place] [address], [place] [id number] Jul, [facility] [address] [id number] [address] [place] [address], [place] [id number] Jul, [facility] [address] [id number] [address] [place] [id number] Jul, [facility] [address] [id number] [address] [place] [address], [place] [id number] Jul, [facility] [address] [id number] [address] [place] [id number] Jun, [facility] [address] [id number] [address] [place] [id number] Jun, [facility] [address] [id number] [address] [place] [address], [place] [id number] May, [facility] [address] [id number] [address] [place] [id number] May, [facility] [address] [id number] [address] [place] [address], [place] [id number] May, [facility] [address] [id number] [address] [place] [address], [place] [id number] Apr, [facility] [address] [id number] [address] [place] [address], [place] [address] Apr, [facility] [address] [id number] [address] [place] [address], [place] [id number] 20 Apr, 2014 [facility] [address] [id number] [address] [place] [address], [place] [id number] 20 Apr, 2014 [facility] [address] [id number] [address] [place] [address], [place] [address] Apr, [facility] [address] [id number] [address] [place] [address], [place] [id number] Apr, [facility] [address] [id number] [address] [place] [address], [place] [id number] 22 Mar, 2014 [facility] [address] [id number] [address] [place] [address], [place] [id number] 22 Mar, 2014 [facility] [address] [id number] [address] [place] [address], [place] [id number] 19 Mar, 2014 [facility] [address] [id number] [address] [place] [address], [place] [id number] 19 Mar, 2014 [facility] [address] [id number] [address] [place] [address], [place] [id number] 19 Sep, 2013 [facility] [address] [id number] [address] [place] [address], [place] [id number] Sep, [facility] [address] [address] [id number] [address] [place] [address], [place] [address] Sep, [facility] [address] [id number] [address] [place] [address], [place] [address] Sep, [facility] [address] [id number] [address] [place] [address], [place] [address] Aug, [facility] [address] [id number] [address] [place] [address], [place] [address] Aug, [facility] [address] [id number] [address] [place] [address], [place] [address] Aug, [facility] [address] [id number] [place] [address] Aug, [facility] [address] [id number] [address] [place] [address], [place] [address] Aug, [facility] [address] [id number] [address] [place] [address], [place] [address] Aug, [facility] [address] [id number] [address] [place] [address], [place] [address] Jul, [facility] [address] [id number] [address] [place] [address], [place] [address] Jul, [facility] [address] [id number] [address] [place] [address], [place] [address] Jul, [facility] [address] [id number] [address] [place] [address], [place] [address] Jul, [facility] [address] [id number] [address] [place] [address], [place] [address] Jun, [facility] [address] [id number] [address] [place] [address], [place] [address] Jun, [facility] [address] [id number] [address] [place] [address] May, [facility] [address] [id number] [address] [place] [address], [place] [address] May, [facility] [address] [id number] [address] [place] [address], [place] [address] Apr, [facility] [address] [id number] [address] [place] [address] Apr, [facility] [address] [id number] [address] [place] [address], [place] [address] Apr, [facility] [address] [id number] [address] [place] [address], [place] [address] 19 Mar, 2013 [facility] [address] [id number] [address] [place] [address], [place] [address] 11 Mar, 2013 [facility] [address] [id number] [address] [place] [address], [place] [address] Mar, [facility] [address] [id number] [address] [place] [address], [place] [address] Mar, [facility] [address] [id number] [address] [place] [address], [place] [address] Feb, [facility] [address] [id number] [address] [place] [address], [place] [address] Jan, [facility] [address] [id number] [address] [place] [address], [place] [address] Jan, [facility] [address] [id number] [address] [place] [address], [place] [address] Jan, [facility] [address] [id number] [address] [place] [address], [place] [address] Jan, [facility] [address] [id number] [address] [place] [address], [place] [address] Dec, [facility] [address] [id number] [address] [place] [address], [place] [address] Dec, [facility] [address] [id number] [address] [place] [address], [place] [address] Dec, [facility] [address] [id number] [address] [place] [address], [place] [address] Dec, [facility] [address] [id number] [address] [place] [address], [place] [address] Dec, [facility] [address] [id number] [address] [place] [address], [place] [address] Dec, [facility] [address] [id number] [address] [place] [address], [place] [address] November, [facility] [address] [id number] [address] [place] [address], [place] [address] November, [facility] [address] [id number] [address] [place] [address], [place] [address] November, [facility] [place] [address] [id number] [address] [place] [address], [place] [address] Oct, [facility] [address] [id number] [address] [place] [address], [place] [address] Oct, [facility] [address] [id number] [address] [place] [address], [place] [address] Sep, [facility] [address] [id number] [address] [place] [address], [place] [address] Sep, [facility] [address] [id number] [address] [place] [address], [place] [address] Sep, [facility] [address] [id number] [address] [place] [address], [place] [address] Sep, [facility] [address] [id number] [address] [place] [address], [place] [address] Sep, [facility] [address] [id number] [address] [place] [address], [place] [address] Aug, [facility] [address] [id number] [address] [place] [address], [place] [address] Aug, [facility] [address] [id number] [address] [place] [address], [place] [address] Aug, [facility] [address] [id number] [address] [place] [address], [place] [address] Aug, [facility] [address] [id number] [address] [place] [address], [place] [address] Aug, [facility] [address] [id number] [address] [place] [address], [place] [address] Jul, [facility] [address] [id number] [address] [place] [address], [place] [address] Jul, [facility] [address] [id number] [address] [place] [address], [place] [address] Jun, [facility] [address] [id number] [address] [place] [address], [place] [address] Jun, [facility] [place] [address] [id number] [address] [place] [address], [place] [address] Jun, [facility] [address] [id number] [address] [place] [address], [place] [address] 18 Jun, 2012 [facility] [place] [address] [id number] [address] [place] [address], [place] [address] Jun, [facility] [address] [id number] [address] [place] [address], [place] [address] Jun, [facility] [address] [id number] [address] [place] [address], [place] [address] Jun, [facility] [place] [address] [id number] [address] [place] [address], [place] [address] Jun, [facility] [place] [address] [id number] [address] [place] [address], [place] [address] Jun, [facility] [place] [address] [id number] [address] [place] [address], [place] [address] May, [facility] [place] [address] [id number] [address] [place] [address], [place] [address] May, [facility] [address] [id number] [address] [place] [address], [place] [address] May, [facility] [address] [id number] [address] [place] [address], [place] [address] May, [facility] [address] [id number] [address] [place] [address], [place] [address] May, [facility] [address] [id number] [address] [place] [address], [place] [address] May, [facility] [address] [id number] [address] [place] [address], [place] [address] May, [facility] [address] [id number] [address] [place] [address], [place] [address] Apr, [facility] [address] [id number] [address] [place] [address], [place] [address] Mar, [facility] [address] [id number] [address] [place] [address], [place] [address] Mar, [facility] [address] [id number] [address] [place] [address], [place] [address] Feb, [facility] [address] [id number] [address] [place] [address], [place] [address] Feb, [facility] [address] [id number] [address] [place] [address], [place] [address] Feb, [facility] [address] [id number] [address] [place] [address], [place] [address] Feb, [facility] [address] [id number] [address] [place] [address], [place] [address] Jan, [facility] [address] [id number] [address] [place] [address], [place] [address] Jan, [facility] [address] [id number] [address] [place] [address], [place] [address] Jan, [facility] [address] [id number] [address] [place] [address], [place] [address] Jan, [facility] [address] [id number] [address] [place] [address], [place] [address] Dec, [facility] [address] [id number] [address] [place] [address], [place] [address] Dec, [facility] [address] [id number] [address] [place] [address], [place] [address] 17 Dec, 2011 [facility] [address] [id number] [address] [place] [address], [place] [address] 15 Dec, 2011 [facility] [address] [id number] [address] [place] [address], [place] [address] 13 Dec, 2011 [facility] [address] [id number] [address] [place] [address] Sep, [facility] [address] [id number] [address] [place] [address] Aug, [facility] [address] [id number] [address] [place] [address] Jul, [facility] [address] [id number] [address] [place] [address] Jun, [facility] [address] [id number] [address] [place] [address] Jun, [facility] [address] [id number] [address] [place] [address] Jun, [facility] [address] [id number] [address] [place] [address] Jun, [facility] [address] [id number] [address] [place] [address] May, [facility] [address] [id number] [address] [place] [address] May, [facility] [address] [id number] [address] [place] [address] Apr, [facility] [address] [id number] [address] [place] [address] Jun, [facility] [address] [id number] [address] [place] [address] Apr, IMMUNIZATIONS No Known Immunizations SOCIAL HISTORY Never Assessed REASON FOR VISIT PLAN OF CARE VITAL SIGNS Height 66 in 2013-01-08 Weight 250.9 lbs 2013-01-08 Heart Rate 100 bpm 2013-01-08 Respiratory Rate 22 2013-01-08 Blood pressure systolic 124 mmHg 2013-01-08 Blood pressure diastolic 82 mmHg 2013-01-08 MEDICATIONS Unknown Medications RESULTS No Results PROCEDURES [...] 11/2017 Hospitalization History pneumonia 10/07 Hospitalization History [facility] 03/09/19 Hospitalization History via [email or web address]. 07/17/19
--- OUTSIDE RECORDS SUMMARY | 2020-01-29 23:37 | XMS REPORT ---
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 Name Role Phone Migration, Doctor Unavailable Unavailable PROBLEMS Type Condition ICD9-CM Code NXA46-RD Code Onset Dates Condition S tatus SNOMED Code Problem Urinary incontinence R32 Active 175177821 Problem Hypothyroidism E03.9 Active 82299 008 Problem Allergic rhinitis J30.9 Active 61 669732 Problem 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 Active 19856856 Problem Microcytic anemia D50.9 Active 23 3659593 Problem Essential hypertension I10 Active 19807048 Problem Type 2 diabetes mellitus with other specified complication E11.69 Active 45664336 Problem Tobacco abuse Z72.0 Active 134669 000 Problem Parotiditis K11.20 Active 48655273 Problem Gastroesophageal reflux disease without esophagitis K21.9 Active 775900255 Problem Type II diabetes mellitus E11.9 Acti ve 84901671 Problem On home oxygen therapy Z99.81 Active 153795491253 Problem Morbid (severe) obesity due to excess calories E66 .01 Active 715246308 Problem Hyperlipidemia LDL goal <70 E78.5 Ac tive 83936254 Problem Seasonal allergic rhinitis due to pollen J30.1 Active 58806303 Problem Chronic bronchitis, unspecified chronic bronchitis type J42 Active 95286512 ALLERGIES No Information ENCOUNTERS Encounter Location Date Diagnosis [facility] [address] [facility] [id number] [address] [place] [phone] Jan, [facility] [address] [facility] [id number] [address] [place] [id number] November, [facility] [address] [facility] [id number] [address] November, Hypothyroidism E03.9 [facility] [address] [facility] [id number] [address] [place] [phone] November, Essential hypertension I10 [facility] [address] [facility] [id number] [address] [place] [phone] November, [facility] [address] [facility] [id number] [place] [phone] November, [facility] [address] [place] [id number] [place] [phone] November, Tobacco use disorder F17.200 ; COPD (chronic obstructive pulmonary disease) with emphysema J43.9 ; Encounter for tobacco use cessation counseling Z71.6 ; On home oxygen therapy Z99.81 ; Type 2 diabetes mellitus with other specified complication E11.69 ; Tobacco abuse Z72.0 and Morbid (severe) obesity due to excess calories E66.01 [facility] [address] [facility] [id number] [address] [place] [phone] Oct, [facility] [address] [facility] [id number] [address] [place] [phone] Oct, [facility] [address] [place] [id number] [address] [place] [phone] Oct, [facility] [address] [facility] [id number] [address] [place] [phone] Oct, Type II diabetes mellitus E1 1.9 [facility] [address] [place] [id number] [place] [phone] Oct, [facility] [address] [facility] [id number] [address] [place] [phone] Sep, [facility] [address] [facility] [id number] [address] [place] [id number] 16 Sep, 2019 COPD (chronic obstructive pu lmonary disease) with emphysema J43.9 [facility] [address] [facility] [id number] [address] [place] [phone] 02 Sep, 2019 [facility] [address] [place] [id number] [address] [place] [phone] Aug, [facility] [address] [place] [id number] [place] [phone] 06 Aug, 2019 Essential hypertension I10 [facility] [address] [facility] [id number] [address] [place] [phone] Jul, Parotiditis K11.20 [facility] [address] [facility] [id number] [address] [place] [phone] Jul, [facility] [address] [facility] [id number] [address] [place] [id number] Jul, Type II diabetes mellitus E1 1.9 [facility] [address] [facility] [id number] [address] [place] [phone] Jul, [facility] [address] [facility] [id number] [address] [place] [phone] Jul, Pneumonia due to infectious organism, unspecified laterality, unspecified part of lung J18.9 ; On home oxygen therapy Z99.81 ; Type II diabetes mellitus E11.9 ; Tobacco use disorder F17.200 and Encounter for tobacco use cessation counseling Z71.6 [facility] [id number] [place] [phone] Apr, [facility] [address] [facility] [id number] [address] [place] [phone] Mar, Acute non-recurrent frontal sinusitis J01.10 [facility] [address] [facility] [id number] [address] [place] [phone] 17 Mar, 2019 Type 2 diabetes mellitus wit hout complications E11.9 [facility] [address] [facility] [id number] [address] [place] [phone] Mar, Type 2 diabetes mellitus wit hout complications E11.9 ; Essential hypertension I10 and Chronic bronchitis, unspecified chronic bronchitis type J42 [facility] [address] [facility] [id number] [address] [place] [phone] Feb, [facility] [address] [facility] [id number] [address] [place] [phone] Dec, [facility] [address] [place] [id number] [address] [place] [phone] Dec, [facility] [address] [id number] [address] [place] [phone] November, [facility] [address] 340[address] [id number] [address] November, [facility] [place] [address] [id number] [address] November, [facility] [place] [address] 340[address] [id number] [place] [address] November, Allergic rhinitis J30.9 [facility] [address] [id number] [address] [place] [phone] November, [facility] [address] [id number] [address] [place] [phone] November, [facility] [address] [id number] [address] [place] [phone] November, [facility] [address] [id number] [address] [place] [phone] Oct, [facility] [address] [id number] [address] [place] [phone] Oct, Essential hypertension I10 [facility] [address] [id number] [address] [place] [phone] Oct, [facility] [address] [id number] [address] [place] [phone] Oct, [facility] [address] [id number] [address] [place] [phone] Oct, [facility] [address] [id number] [address] [place] [phone] Oct, [facility] [address] [id number] [address] [place] [id number] Oct, [facility] [address] [id number] [address] [place] [phone] Oct, Shortness of breath R06.02 a nd Oxygen decrease R09.02 [facility] [address] [facility] [id number] [address] [place] [phone] Oct, [facility] [address] [facility] [id number] [address] [place] [phone] Sep, COPD (chronic obstructive pu lmonary disease) with emphysema J43.9 ; On home oxygen therapy Z99.81 and Hypothyroidism E03.9 [facility] [address] [facility] [id number] [address] [place] [id number] Sep, [facility] [address] [place] [id number] [address] [place] [phone] Sep, [facility] [address] [address] Sep, Acute on chronic respiratory failure with hypoxia J96.21 ; Hypothyroidism E03.9 ; COPD (chronic obstructive pulmonary disease) with emphysema J43.9 ; Essential hypertension I10 ; Type 2 diabetes mellitus with other specified complication E11.69 ; alf current use of insulin Z79.4 and Hyperlipidemia LDL goal <70 E78.5 [facility] [address] [place] [id number] [address] [place] [phone] Sep, Allergic rhinitis J30.9 [facility] [address] [place] [id number] [address] [place] [id number] Aug, Allergic rhinitis J30.9 [facility] [address] [place] [id number] [address] [place] [phone] Aug, [facility] [address] [place] [id number] [address] [place] [phone] Aug, [facility] [address] [place] [id number] [address] [place] [phone] Aug, [facility] [address] [facility] [id number] [address] [place] [phone] Jul, [facility] [address] [place] [id number] [address] [place] [phone] Jul, Type 2 diabetes mellitus wit h other specified complication E11.69 [facility] [address] [id number] [address] [place] [phone] Jun, [facility] [address] [facility] [id number] [address] [place] [phone] May, Hyperlipidemia LDL goal <70 E78.5 ; COPD (chronic obstructive pulmonary disease) with emphysema J43.9 and Encounter for immunization Z23 [facility] [address] [facility] [id number] [address] [place] [phone] May, [facility] [address] [facility] [id number] [address] [place] [phone] May, Acute upper respiratory infe ction J06.9 [facility] [address] [facility] [id number] [address] [place] [phone] May, Essential hypertension I10 [facility] [address] [facility] [id number] [address] [place] [phone] May, Essential hypertension I10 [facility] [address] [id number] [address] [place] [phone] Apr, Essential hypertension I10 [facility] [address] [id number] [address] [place] [phone] Apr, [facility] [address] [id number] [address] [place] [phone] Apr, COPD (chronic obstructive pu lmonary disease) with emphysema J43.9 [facility] [address] [id number] [address] [place] [phone] Apr, [facility] [address] [facility] [id number] [address] [place] [phone] Mar, [facility] [address] [facility] [id number] [address] [place] [phone] Feb, Type 2 diabetes mellitus wit h other specified complication E11.69 ; [employer]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 ; Essential hypertension I10 ; Hyperlipidemia LDL goal <70 E78.5 ; COPD (chronic obstructive pulmonary disease) with emphysema J43.9 ; Microcytic anemia D50.9 ; Morbid (severe) obesity due to excess calories E66.01 ; Body mass index (BMI) of 39.0-39.9 in adult Z68.39 ; Hypothyroidism E03.9 and Seasonal allergic rhinitis due to pollen J30.1 [facility] [address] [address] November, 2018 Pneumonia of right lower lob e due to infectious organism J18.1 ; alf current use of insulin Z79.4 ; Type [...] without esophagitis K21.9 and Allergic rhinitis J30.9 [facility] [address] [id number] November, [place] [address] [address] Sep, [place] [address] [address] Sep, [place] [address] [address] Sep, [place] [address] [address] Sep, [facility] [address] [address] Jul, Encounter for immunization Z 23 [facility] [address] [place] [id number] [place] [phone] Jun, Subacute maxillary sinusitis J01.00 [place] [address] [place] [address] May, [facility] [address] [address] May, [facility] [address] [address] May, Type II diabetes mellitus E1 1.9 ; Hypothyroidism E03.9 ; COPD (chronic obstructive pulmonary disease) with emphysema J43.9 ; Cough R05 ; COPD with exacerbation J44.1 and Pneumonia of right lower lobe due to infectious organism J18.1 [facility] [address] [address] Mar, Hyperlipidemia, unspecified hyperlipidemia type E78.5 [place] [address] [address] Mar, Hypothyroidism E03.9 and Hyp erlipidemia, unspecified hyperlipidemia type E78.5 [place] [address] [address] Feb, Type II diabetes mellitus E1 1.9 [...] full remission F33.42 and Urinary incontinence R32 [place] [address] [place] [id number] [place] [phone] Jan, [facility] [address] [place] [id number] [address] [place] [phone] Jan, [place] [address] [address] November, [place] [address] [place] [id number] [address] [place] [phone] Sep, Type II diabetes mellitus E1 1.9 [...] and Tinea pedis of both feet B35.[address] [address] Jun, [facility] [address] [address] Jun, Acute upper respiratory infe ction, unspecified J06.9 and Other viral agents as the cause of diseases classified elsewhere B97.[address] [address] May, [address] [address] May, Type 2 diabetes mellitus wit h [...] thrush B37.0 and Encounter for immunization Z23 [place] [address] [place] [id number] [place] [phone] Apr, [address] [address] Apr, [address] [address] Mar, [place] [address] [place] [id number] [address] [place] [phone] Dec, [address] [place] [address] 24 Dec, 2015 [facility] [address] [address] Dec, Encounter for well woman gurinder jaime with routine gynecological exam Z01.419 ; Encounter for screening for malignant neoplasm of cervix Z12.4 ; Screening mammogram, encounter for Z12.31 ; Encounter for screening breast examination Z12.39 ; On home oxygen therapy Z99.81 ; COPD (chronic obstructive pulmonary disease) with emphysema J43.9 ; Heat rash L74.0 ; Type II diabetes mellitus E11.9 and Hypothyroidism E03.9 [facility] [address] [address] November, [facility] [address] [address] November, Type II diabetes mellitus E1 1.9 ; Allergic rhinitis J30.9 ; Hypothyroidism E03.9 ; Obesity due to excess calories E66.09 ; Urinary incontinence R32 ; Gastroesophageal reflux disease without esophagitis K21.9 and Essential hypertension I10 [facility] [address] [address] Oct, [facility] [address] [address] Sep, [facility] [address] [address] Sep, [facility] [address] [place] [id number] [address] [place] [phone] Aug, Acute maxillary sinusitis J0 1.00 [facility] [address] [address] Aug, [facility] [address] [address] Aug, [facility] [address] [address] Aug, Type II diabetes mellitus E1 1.9 [place] [address] [address] 05 Aug, 2015 Type II diabetes mellitus E1 1.9 ; Hypothyroidism E03.9 ; COPD (chronic obstructive pulmonary disease) with emphysema J43.9 ; Obesity due to excess calories E66.09 ; Urinary incontinence R32 ; Anemia D64.9 ; Microcytic anemia D50.9 and Allergic rhinitis J30.9 [place] [address] [address] 11 May, 2015 Upper respiratory symptom R0 9.[address] [address] May, Oral thrush B37.[address] [address] Apr, Hypothyroidism E03.9 and Harish rocytic anemia D50.9 [place] [address] [address] Apr, Encounter for long-term curr ent use of medication Z79.899 ; Hypothyroidism E03.9 ; Microcytic anemia D50.9 ; Type 2 diabetes mellitus without complication E11.9 ; Essential hypertension I10 and Mixed incontinence N39.46 [place] [address] [address] Apr, [place] [address] [address] Mar, [place] [address] [address] Mar, [place] [address] [address] Mar, [place] [address] [address] Mar, [place] [address] [address] Mar, [facility] [address] [facility] [id number] [address] [place] [phone] Mar, [facility] [address] [facility] [id number] [address] [place] [address] Mar, [facility] [address] [facility] [id number] [address] [place] [address] Feb, Cough 786.2 ; Wheezing 786.0 7 ; Hypothyroidism 244.9 and Encounter for long-term current use of medication V58.69 [facility] [address] [id number] [address] [place] [address] Feb, Diabetes type 2, uncontrolle d 250.02 ; Depression 311 ; Encounter for long-term current use of medication V58.69 and Hypothyroidism 244.9 [facility] [address] [facility] [id number] [address] [place] [phone] Feb, [facility] [address] [facility] [id number] [address] [place] [phone] Jan, [facility] [address] [facility] [id number] [address] [place] [phone] Oct, [facility] [address] [facility] [id number] [address] [place] [phone] Oct, [facility] [address] [facility] [id number] [address] [place] [phone] Oct, [facility] [address] [facility] [id number] [address] [place] [phone] Sep, [facility] [address] [facility] [id number] [address] [place] [phone] Sep, [facility] [address] [facility] [id number] [address] [place] [phone] Sep, [facility] [address] [facility] [id number] [address] [place] [phone] Aug, [facility] [address] [facility] [id number] [address] [place] [phone] Aug, [facility] [address] [id number] [address] [place] [address], [place] [address] Jul, [facility] [address] [id number] [address] [place] [phone] Jul, [facility] [address] [id number] [address] [place] [address], [place] [address] Jul, [facility] [address] [id number] [address] [place] [phone] Jul, [facility] [address] [id number] [address] [place] [address], [place] [address] Jul, [facility] [address] [id number] [address] [place] [phone] Jul, [facility] [address] [id number] [address] [place] [phone] Jul, [facility] [address] [id number] [address] [place] [phone] Jul, [facility] [address] [id number] [address] [place] [phone] Jun, [facility] [address] [id number] [address] [place] [phone] Jun, [facility] [address] [id number] [address] [place] [phone] May, [facility] [address] [id number] [address] [place] [phone] May, [facility] [address] [id number] [address] [place] [id number] May, [facility] [place] [address] [id number] [address] [place] [phone] Apr, [facility] [place] [facility] [address] [id number] [address] [place] [address], [place] [address] Apr, [facility] [place] [facility] [address] [id number] [address] [place] [address], [place] [address] 20 Apr, 2014 [facility] [address] [id number] [address] [place] [address], [place] [address] 20 Apr, 2014 [facility] [address] [id number] [address] [place] [address], [place] [address] Apr, [facility] [address] [id number] [address] [place] [address], [place] [address] Apr, [facility] [address] [id number] [address] [place] [address], [place] [address] 22 Mar, 2014 [facility] [address] [id number] [address] [place] [address], [place] [address] 22 Mar, 2014 [facility] [address] [id number] [address] [place] [address], [place] [address] 19 Mar, 2014 [facility] [address] [id number] [address] [place] [address], [place] [address] 19 Mar, 2014 [facility] [address] [id number] [address] [place] [id number], [place] [id number] 19 Sep, 2013 [facility] [address] [id number] [address] [place] [id number], [place] [id number] Sep, [facility] [address] [id number] [address] [place] [id number], [place] [id number] Sep, [facility] [address] [id number] [address] [place] [id number], [place] [id number] Sep, [facility] [address] [id number] [address] [place] [id number], [place] [id number] Aug, [facility] [address] [id number] [address] [place] [id number], [place] [id number] Aug, [facility] [address] [id number] [address] [place] [id number], [place] [id number] Aug, [facility] [address] [id number] [address] [place] [id number], [place] [id number] Aug, [facility] [address] [id number] [address] [place] [id number], [place] [id number] Aug, [facility] [address] [id number] [address] [place] [id number], [place] [id number] Aug, [facility] [address] [id number] [address] [place] [id number], [place] [id number] Jul, [facility] [address] [id number] [address] [place] [id number], [place] [id number] Jul, [facility] [address] [id number] [address] [place] [id number], [place] [id number] Jul, [facility] [address] [id number] [address] [place] [id number], [place] [id number] Jul, [facility] [address] [id number] [address] [place] [id number], [place] [id number] Jun, [facility] [facility] [address] [id number] [address] [place] [id number], [place] [address] Jun, [facility] [address] [id number] [address] [place] [id number], [place] [id number] May, [facility] [address] [id number] [address] [place] [id number], [place] [id number] May, [facility] [address] [id number] [address] [place] [address], [place] [id number] Apr, [facility] [address] [id number] [address] [place] [id number] Apr, [facility] [address] [id number] [address] [place] [id number], [place] [id number] Apr, [facility] [address] [id number] [address] [place] [id number], [place] [id number] 19 Mar, 2013 [facility] [address] [id number] [address] [place] [id number], [place] [id number] 11 Mar, 2013 [facility] [address] [id number] [address] [place] [id number], [place] [id number] Mar, [facility] [address] [id number] [address] [place] [address], [place] [id number] Mar, [facility] [address] [id number] [address] [place] [id number], [place] [id number] Feb, [facility] [address] [id number] [address] [place] [id number], [place] [id number] Jan, [facility] [address] [id number] [address] [place] [id number], [place] [address] Jan, [facility] [address] [id number] [address] [place] [address], [place] [id number] Jan, [facility] [address] [id number] [address] [place] [address], [place] [id number] Jan, [facility] [address] [id number] [address] [place] [address], [place] [id number] Dec, [facility] [address] [id number] [address] [place] [address], [place] [id number] Dec, [facility] [address] [id number] [address] [place] [address], [place] [address] Dec, [facility] [address] [id number] [address] [place] [address], [place] [id number] Dec, [facility] [address] [id number] [address] [place] [address], [place] [id number] Dec, [facility] [address] [id number] [address] [place] [address], [place] [address] Dec, [facility] [address] [id number] [address] [place] [address], [place] [id number] November, [facility] [address] [id number] [address] [place] [address], [place] [id number] November, [facility] [address] [id number] [address] [place] [address], [place] [address] November, [facility] [address] [id number] [address] [place] [address], [place] [id number] Oct, [facility] [address] [id number] [address] [place] [address], [place] [id number] Oct, [facility] [address] [id number] [address] [place] [address], [place] [id number] Sep, [facility] [address] [id number] [address] [place] [address], [place] [id number] Sep, [facility] [address] [id number] [address] [place] [address], [place] [id number] Sep, [facility] [address] [id number] [address] [place] [address], [place] [id number] Sep, [facility] [address] [id number] [address] [place] [address], [place] [id number] Sep, [facility] [address] [id number] [address] [place] [address], [place] [id number] Aug, [facility] [address] [id number] [address] [place] [address], [place] [id number] Aug, [facility] [address] [id number] [address] [place] [address], [place] [address] Aug, [facility] [address] [id number] [address] [place] [address], [place] [address] Aug, [facility] [address] [id number] [address] [place] [address], [place] [id number] Aug, [facility] [address] [id number] [address] [place] [address], [place] [id number] Jul, [facility] [address] [id number] [address] [place] [address], [place] [address] Jul, [facility] [address] [id number] [address] [place] [address], [place] [id number] Jun, [facility] [address] [id number] [address] [place] [address], [place] [id number] Jun, [facility] [address] [id number] [address] [place] [address], [place] [address] Jun, [facility] [address] [id number] [address] [place] [address], [place] [id number] 18 Jun, 2012 [facility] [address] [id number] [address] [place] [address], [place] [address] Jun, [facility] [address] [id number] [address] [place] [address], [place] [id number] Jun, [facility] [address] [id number] [address] [place] [address], [place] [id number] Jun, [facility] [address] [id number] [address] [place] [address], [place] [id number] Jun, [facility] [address] [id number] [address] [place] [address], [place] [address] Jun, [facility] [address] [id number] [address] [place] [address], [place] [address] May, [facility] [address] [id number] [address] [place] [address], [place] [id number] May, [facility] [address] [id number] [address] [place] [address], [place] [address] May, [facility] [address] [id number] [address] [place] [address], [place] [address] May, [facility] [address] [id number] [address] [place] [address], [place] [address] May, [facility] [address] [id number] [address] [place] [address], [place] [address] May, [facility] [address] [id number] [address] [place] [address], [place] [address] May, [facility] [address] [id number] [address] [place] [address], [place] [address] Apr, [facility] [address] [id number] [address] [place] [address], [place] [id number] Mar, [facility] [address] [id number] [address] [place] [address], [place] [address] Mar, [facility] [address] [id number] [address] [place] [address], [place] [id number] Feb, [facility] [address] [id number] [address] [place] [address], [place] [id number] Feb, [facility] [address] [id number] [address] [place] [address], [place] [id number] Feb, [facility] [address] [id number] [address] [place] [address], [place] [id number] Feb, [facility] [address] [id number] [address] [place] [address], [place] [address] Jan, [facility] [address] [id number] [address] [place] [address], [place] [id number] Jan, [facility] [address] [id number] [address] [place] [address], [place] [id number] Jan, [facility] [address] [id number] [address] [place] [address], [place] [address] Jan, [facility] [address] [id number] [address] [place] [address], [place] [id number] Dec, [facility] [address] [id number] [address] [place] [address], [place] [id number] Dec, [facility] [address] [id number] [address] [place] [address], [place] [id number] 17 Dec, 2011 [facility] [address] [id number] [address] [place] [address], [place] [id number] 15 Dec, 2011 [facility] [address] [id number] [address] [place] [address], [place] [id number] 13 Dec, 2011 [facility] [address] [id number] [address] [place] [id number] Sep, [facility] [address] [id number] [address] [place] [id number] Aug, [facility] [address] [id number] [address] [place] [id number] Jul, [facility] [address] [id number] [address] [place] [id number] Jun, [facility] [address] [id number] [address] [place] [id number] Jun, [facility] [address] [id number] [address] [place] [id number] Jun, [facility] [address] [id number] [address] [place] [id number] Jun, [facility] [address] [id number] [address] [place] [id number] May, [facility] [address] [id number] [address] [place] [id number] May, [facility] [address] [id number] [address] [place] [id number] Apr, [facility] [address] [id number] [address] [place] [id number] Jun, [facility] [address] [id number] [address] [place] [id number] Apr, IMMUNIZATIONS No Known Immunizations SOCIAL HISTORY [...]
--- OUTSIDE RECORDS SUMMARY | 2020-01-29 23:37 | XMS REPORT ---
Author Author Don Jay Doctor Organization [facility] Address Unknown Phone Unavailable Care Team Providers Care Qm Consultant Name Role Phone Migration, Doctor Unavailable Unavailable PROBLEMS Type Condition ICD9-CM Code KWN32-QW Code Onset Dates Condition S tatus SNOMED Code Problem Urinary incontinence R32 Active 300968182 Problem Hypothyroidism E03.9 Active 21197 008 Problem Allergic rhinitis J30.9 Active 61 176777 Problem 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 Active 10046853 Problem Microcytic anemia D50.9 Active 23 8788019 Problem Essential hypertension I10 Active 66026268 Problem Type 2 diabetes mellitus with other specified complication E11.69 Active 76864778 Problem Tobacco abuse Z72.0 Active 520543 000 Problem Parotiditis K11.20 Active 93138445 Problem Gastroesophageal reflux disease without esophagitis K21.9 Active 738610198 Problem Type II diabetes mellitus E11.9 Acti ve 89461350 Problem On home oxygen therapy Z99.81 Active 780913879235 Problem Morbid (severe) obesity due to excess calories E66 .01 Active 666902795 Problem Hyperlipidemia LDL goal <70 E78.5 Ac tive 79616801 Problem Seasonal allergic rhinitis due to pollen J30.1 Active 16473203 Problem Chronic bronchitis, unspecified chronic bronchitis type J42 Active 95395019 ALLERGIES No Information ENCOUNTERS Encounter Location Date Diagnosis [facility] [address] [facility] [id number] [address] [place] [phone] November, [facility] [id number] [place] [phone] November, Hypothyroidism E03.9 [facility] [address] [facility] [id number] [address] [place] [phone] November, Essential hypertension I10 [facility] [address] [facility] [id number] [address] [place] [phone] November, [facility] [address] [id number] [address] November, [facility] [id number] [place] [phone] November, Tobacco use disorder F17.200 ; COPD (chronic obstructive pulmonary disease) with emphysema J43.9 ; Encounter for tobacco use cessation counseling Z71.6 ; On home oxygen therapy Z99.81 ; Type 2 diabetes mellitus with other specified complication E11.69 ; Tobacco abuse Z72.0 and Morbid (severe) obesity due to excess calories E66.01 [facility] [address] [facility] [id number] [address] [place] [phone] Oct, [facility] [address] [id number] [address] [place] [phone] Oct, [facility] [address] [id number] [address] [place] [phone] Oct, [facility] [address] [id number] [address] [place] [phone] Oct, Type II diabetes mellitus E1 1.9 [facility] [id number] [place] [phone] Oct, [facility] [address] [id number] [address] [place] [phone] Sep, [facility] [address] [id number] [address] [place] [id number] 16 Sep, 2019 COPD (chronic obstructive pu lmonary disease) with emphysema J43.9 [facility] [address] [facility] [id number] [address] [place] [phone] Sep, [facility] [address] [facility] [id number] [address] [place] [address] Aug, [facility] [id number] [place] [phone] 06 Aug, 2019 Essential hypertension I10 [facility] [address] [facility] [id number] [address] [place] [address] Jul, Parotiditis K11.20 [facility] [address] [facility] [id number] [address] [place] [address] Jul, [facility] [address] [facility] [id number] [address] [place] [address] Jul, Type II diabetes mellitus E1 1.9 [facility] [address] [facility] [id number] [address] [place] [phone] Jul, [facility] [address] [facility] [id number] [address] [place] [address] Jul, Pneumonia due to infectious organism, unspecified laterality, unspecified part of lung J18.9 ; On home oxygen therapy Z99.81 ; Type II diabetes mellitus E11.9 ; Tobacco use disorder F17.200 and Encounter for tobacco use cessation counseling Z71.6 [facility] [address] [facility] [id number] [address] [place] [phone] 14 Apr, 2019 [facility] [address] [facility] [id number] [address] [place] [id number] 30 Mar, 2019 Acute non-recurrent frontal sinusitis J01.10 [facility] [address] [facility] [id number] [address] [place] [phone] 17 Mar, 2019 Type 2 diabetes mellitus wit hout complications E11.9 [facility] [address] [facility] [id number] [address] [place] [phone] Mar, Type 2 diabetes mellitus wit hout complications E11.9 ; Essential hypertension I10 and Chronic bronchitis, unspecified chronic bronchitis type J42 [facility] [address] [facility] [id number] [address] [place] [phone] Feb, [facility] [address] [facility] [id number] [address] [place] [phone] Dec, [facility] [address] [facility] [id number] [address] [place] [address] Dec, [facility] [address] [facility] [id number] [address] [place] [phone] November, [facility] [place] [facility] [address] [facility] [id number] [address] November, [facility] [place] [facility] [address] [facility] [address] [id number] [place] [address] November, [facility] [place] [address] [id number] [place] [address] November, Allergic rhinitis J30.9 [facility] [address] [id number] [address] [place] [phone] November, [facility] [address] [id number] [address] [place] [address] November, [facility] [address] [id number] [address] [place] [id number] November, [facility] [address] [id number] [address] [place] [phone] Oct, [facility] [address] [id number] [address] [place] [phone] Oct, Essential hypertension I10 [facility] [address] [id number] [address] [place] [phone] Oct, [facility] [address] [facility] [id number] [address] [place] [phone] Oct, [facility] [address] [id number] [address] [place] [phone] Oct, [facility] [address] [id number] [address] [place] [phone] Oct, [facility] [address] [id number] [address] [place] [phone] Oct, [facility] [address] [id number] [address] [place] [phone] Oct, Shortness of breath R06.02 a nd Oxygen decrease R09.02 [facility] [address] [id number] [address] [place] [phone] Oct, [facility] [address] [facility] [id number] [address] [place] [phone] Sep, COPD (chronic obstructive pu lmonary disease) with emphysema J43.9 ; On home oxygen therapy Z99.81 and Hypothyroidism E03.9 [facility] [address] [facility] [id number] [address] [place] [address] Sep, [facility] [address] [facility] [id number] [address] [place] [phone] Sep, [facility] [address] [facility] [id number] [address] [place] [address] Sep, Acute on chronic respiratory failure with hypoxia J96.21 ; Hypothyroidism E03.9 ; COPD (chronic obstructive pulmonary disease) with emphysema J43.9 ; Essential hypertension I10 ; Type 2 diabetes mellitus with other specified complication E11.69 ; 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 and Hyperlipidemia LDL goal <70 E78.5 [facility] [address] [facility] [id number] [address] [place] [phone] Sep, Allergic rhinitis J30.9 [facility] [address] [facility] [id number] [address] [place] [phone] Aug, Allergic rhinitis J30.9 [facility] [address] [facility] [id number] [address] [place] [phone] Aug, [facility] [address] [facility] [id number] [address] [place] [phone] Aug, [facility] [address] [facility] [id number] [address] [place] [phone] Aug, [facility] [address] [facility] [id number] [address] [place] [phone] Jul, [facility] [address] [facility] [id number] [address] [place] [address] Jul, Type 2 diabetes mellitus wit h other specified complication E11.69 [facility] [address] [facility] [id number] [address] [place] [phone] Jun, [facility] [address] [facility] [id number] [address] [place] [address] May, Hyperlipidemia LDL goal <70 E78.5 ; COPD (chronic obstructive pulmonary disease) with emphysema J43.9 and Encounter for immunization Z23 [facility] [address] [facility] [id number] [address] [place] [address] May, [facility] [address] [facility] [id number] [address] [place] [phone] May, Acute upper respiratory infe ction J06.9 [facility] [address] [facility] [id number] [address] [place] [address] May, Essential hypertension I10 [facility] [address] [id number] [address] [place] [phone] May, Essential hypertension I10 [facility] [address] [id number] [address] [place] [phone] Apr, Essential hypertension I10 [facility] [address] [facility] [id number] [address] [place] [phone] Apr, [facility] [address] [facility] [id number] [address] [place] [id number] Apr, COPD (chronic obstructive pu lmonary disease) with emphysema J43.9 [facility] [address] [facility] [id number] [address] [place] [id number] Apr, [facility] [address] [facility] [id number] [address] [place] [phone] Mar, [facility] [address] [id number] [address] [place] [phone] Feb, Type 2 diabetes mellitus wit h other specified complication E11.69 ; 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 ; Essential hypertension I10 ; Hyperlipidemia LDL goal <70 E78.5 ; COPD (chronic obstructive pulmonary disease) with emphysema J43.9 ; Microcytic anemia D50.9 ; Morbid (severe) obesity due to excess calories E66.01 ; Body mass index (BMI) of 39.0-39.9 in adult Z68.39 ; Hypothyroidism E03.9 and Seasonal allergic rhinitis due to pollen J30.1 [facility] [address] [facility] [id number] [address] [place] [phone] 15 November, 2018 Pneumonia of right lower [...] without esophagitis K21.9 and Allergic rhinitis J30.9 [address] [address] [address] November, [address] [address] [id number] [place] [address] Sep, [address] [address] [address] Sep, [place] [id number] [place] [phone] Sep, [facility] [address] [id number] [address] [place] [phone] Sep, [facility] [address] [id number] [address] [place] [phone] Jul, Encounter for immunization Z 23 [facility] [address] [id number] [address] [place] [phone] Jun, Subacute maxillary sinusitis J01.00 [place] [address] [id number] [address] [place] [phone] May, [place] [address] [place] [address] May, [place] [id number] [place] [phone] May, Type II diabetes mellitus E1 1.9 ; Hypothyroidism E03.9 ; COPD (chronic obstructive pulmonary disease) with emphysema J43.9 ; Cough R05 ; COPD with exacerbation J44.1 and Pneumonia of right lower lobe due to infectious organism J18.1 [address] [address] [address] Mar, Hyperlipidemia, unspecified hyperlipidemia type E78.5 [address] [address] [address] Mar, Hypothyroidism E03.9 and Hyp erlipidemia, unspecified hyperlipidemia type E78.5 [address] [address] [address] Feb, Type II diabetes mellitus E1 1.9 [...] full remission F33.42 and Urinary incontinence R32 [place] [id number] [place] [phone] Jan, [address] [address] [place] [address] Jan, [place] [id number] [place] [phone] November, [address] [address] [address] Sep, Type II diabetes mellitus E1 1.9 [...] of both feet B35.3 [facility] [address] [id number] [address] [place] [address] Jun, [facility] [address] [address] Jun, Acute upper respiratory infe ction, unspecified J06.9 and Other viral agents as the cause of diseases classified elsewhere B97.89 [place] [address] [address] May, [address] [address] [address] May, Type 2 diabetes mellitus wit h [...] thrush B37.0 and Encounter for immunization Z23 [place] [address] [id number] [place] [phone] Apr, [place] [id number] [place] [phone] Apr, [facility] [address] [address] Mar, [place] [address] [address] Dec, [place] [address] [address] [id number] [address] [place] [address] Dec, [place] [address] [place] [address] 23 Dec, 2015 Encounter for well woman exa m with routine gynecological exam Z01.419 ; Encounter for screening for malignant neoplasm of cervix Z12.4 ; Screening mammogram, encounter for Z12.31 ; Encounter for screening breast examination Z12.39 ; On home oxygen therapy Z99.81 ; COPD (chronic obstructive pulmonary disease) with emphysema J43.9 ; Heat rash L74.0 ; Type II diabetes mellitus E11.9 and Hypothyroidism E03.9 [facility] [address] [address] November, [facility] [address] [address] November, Type II diabetes mellitus E1 1.9 ; Allergic rhinitis J30.9 ; Hypothyroidism E03.9 ; Obesity due to excess calories E66.09 ; Urinary incontinence R32 ; Gastroesophageal reflux disease without esophagitis K21.9 and Essential hypertension I10 [facility] [address] [address] Oct, [facility] [address] [id number] [address] [place] [address] Sep, [place] [address] [address] Sep, [facility] [address] [id number] [address] [place] [address] Aug, Acute maxillary sinusitis J0 1.00 [facility] [address] [id number] [address] [place] [phone] Aug, [facility] [address] [id number] [address] [place] [address] Aug, [facility] [id number] [place] [id number] 16 Aug, 2015 Type II diabetes mellitus E1 1.9 [facility] [address] [address] Aug, Type II diabetes mellitus E1 1.9 ; Hypothyroidism E03.9 ; COPD (chronic obstructive pulmonary disease) with emphysema J43.9 ; Obesity due to excess calories E66.09 ; Urinary incontinence R32 ; Anemia D64.9 ; Microcytic anemia D50.9 and Allergic rhinitis J30.9 [facility] [address] [address] May, Upper respiratory symptom R0 9.89 [place] [address] [address] May, Oral thrush B37.0 [place] [address] [address] Apr, Hypothyroidism E03.9 and Harish rocytic anemia D50.9 [place] [address] [address] Apr, Encounter for long-term curr ent use of medication Z79.899 ; Hypothyroidism E03.9 ; Microcytic anemia D50.9 ; Type 2 diabetes mellitus without complication E11.9 ; Essential hypertension I10 and Mixed incontinence N39.46 [place] [address] [address] Apr, [place] [address] [address] Mar, [place] [address] [address] Mar, [facility] [address] [address] Mar, [place] [address] [address] Mar, [facility] [address] [address] Mar, [facility] [address] [address] Mar, [facility] [address] [facility] [id number] [address] [place] [address] Mar, [facility] [address] [facility] [id number] [address] [place] [address] Feb, Cough 786.2 ; Wheezing 786.0 7 ; Hypothyroidism 244.9 and Encounter for long-term current use of medication V58.69 [facility] [address] [facility] [id number] [address] [place] [address] Feb, Diabetes type 2, uncontrolle d 250.02 ; Depression 311 ; Encounter for long-term current use of medication V58.69 and Hypothyroidism 244.9 [facility] [address] [facility] [id number] [address] [place] [address] Feb, [facility] [address] [facility] [id number] [address] [place] [address] Jan, [facility] [address] [facility] [id number] [address] [place] [id number] Oct, [facility] [address] [facility] [id number] [address] [place] [address] Oct, [facility] [address] [facility] [id number] [address] [place] [phone] Oct, [facility] [address] [facility] [id number] [address] [place] [address] Sep, [facility] [address] [facility] [id number] [address] [place] [phone] Sep, [facility] [address] [facility] [id number] [address] [place] [phone] Sep, [facility] [address] [facility] [id number] [address] [place] [address] Aug, [facility] [address] [facility] [id number] [address] [place] [phone] Aug, [facility] [address] [facility] [id number] [address] [place] [phone] Jul, [facility] [address] [id number] [address] [place] [address], [place] [address] Jul, [facility] [address] [id number] [address] [place] [id number] Jul, [facility] [address] [id number] [address] [place] [address], [place] [address] Jul, [facility] [address] [id number] [address] [place] [phone] Jul, [facility] [address] [id number] [address] [place] [address], [place] [address] Jul, [facility] [address] [id number] [address] [place] [address], [place] [address] Jul, [facility] [address] [id number] [address] [place] [address], [place] [address] Jul, [facility] [address] [id number] [address] [place] [address], [place] [address] Jun, [facility] [address] [id number] [address] [place] [id number] Jun, [facility] [address] [id number] [address] [place] [address], [place] [address] May, [facility] [address] [id number] [address] [place] [address], [place] [address] May, [facility] [place] [facility] [address] [id number] [address] [place] [id number] May, [facility] [place] [facility] [address] [id number] [address] [place] [address], [place] [address] Apr, [facility] [place] [facility] [address] [id number] [address] [place] [address], [place] [address] Apr, [facility] [place] [facility] [address] [id number] [address] [place] [address], [place] [address] Apr, [facility] [place] [facility] [address] [id number] [address] [place] [address], [place] [address] 20 Apr, 2014 [facility] [address] [id number] [address] [place] [address], [place] [address] Apr, [facility] [address] [id number] [address] [place] [address], [place] [address] Apr, [facility] [address] [id number] [address] [place] [address], [place] [address] Mar, [facility] [address] [id number] [address] [place] [address], [place] [address] Mar, [facility] [address] [id number] [address] [place] [address], [place] [address] 19 Mar, 2014 [facility] [address] [id number] [address] [place] [address], [place] [address] 19 Mar, 2014 [facility] [address] [id number] [address] [place] [address], [place] [address] Sep, [facility] [address] [id number] [address] [place] [address], [place] [address] Sep, [facility] [address] [id number] [address] [place] [address], [place] [address] Sep, [facility] [address] [id number] [address] [place] [address], [place] [address] Sep, [facility] [address] [id number] [address] [place] [address], [place] [address] Aug, [facility] [address] [id number] [address] [place] [address], [place] [address] Aug, [facility] [address] [id number] [address] [place] [address], [place] [address] Aug, [facility] [address] [id number] [address] [place] [address], [place] [address] Aug, [facility] [address] [id number] [address] [place] [address], [place] [address] Aug, [facility] [address] [id number] [address] [place] [address], [place] [address] Aug, [facility] [address] [id number] [address] [place] [address], [place] [address] Jul, [facility] [address] [id number] [address] [place] [address], [place] [address] Jul, [facility] [address] [id number] 80 [place] [address], [place] [address] Jul, [facility] [address] [id number] [address] [place] [address], [place] [address] Jul, [facility] [address] [id number] [address] [place] [address], [place] [address] Jun, [facility] [address] [id number] [address] [place] [address], [place] [address] Jun, [facility] [address] [id number] [address] [place] [address], [place] [address] May, [facility] [address] [id number] [address] [place] [address], [place] [address] May, [facility] [address] [id number] [address] [place] [address], [place] [address] Apr, [facility] [address] [id number] [address] [place] [address], [place] [address] Apr, [facility] [address] [id number] [address] [place] [address], [place] [address] Apr, [facility] [address] [id number] [address] [place] [address], [place] [address] 19 Mar, 2013 [facility] [address] [id number] [address] [place] [address], [place] [address] 11 Mar, 2013 [facility] [address] [id number] [address] [place] [address], [place] [address] 04 Mar, 2013 [facility] [address] [id number] [address] [place] [address], [place] [address] Mar, [facility] [address] [id number] [address] [place] [address], [place] [address] Feb, [facility] [address] [id number] [address] [place] [address], [place] [address] Jan, [facility] [address] [id number] [address] [place] [address], [place] [address] Jan, [facility] [address] [id number] [address] [place] [address], [place] [address] Jan, [facility] [address] [id number] [address] [place] [address], [place] [address] Jan, [facility] [address] [id number] [address] [place] [address], [place] [address] Dec, [facility] [address] [id number] [address] [place] [address], [place] [address] Dec, [facility] [address] [id number] [address] [place] [address], [place] [address] Dec, [facility] [address] [id number] [address] [place] [address], [place] [address] Dec, [facility] [address] [id number] [address] [place] [address], [place] [address] Dec, [facility] [address] [id number] [address] [place] [address], [place] [address] Dec, [facility] [address] [id number] [address] [place] [address], [place] [address] November, [facility] [address] [id number] [address] [place] [address], [place] [address] November, [facility] [address] [id number] [address] [place] [address], [place] [address] November, [facility] [address] [id number] [address] [place] [address], [place] [address] Oct, [facility] [address] [id number] [address] [place] [address], [place] [address] Oct, [facility] [address] [id number] [address] [place] [address], [place] [address] Sep, [facility] [address] [id number] [address] [place] [address], [place] [address] Sep, [facility] [address] [id number] [address] [place] [address], [place] [address] Sep, [facility] [address] [id number] [address] [place] [address], [place] [address] Sep, [facility] [address] [id number] [address] [place] [address], [place] [address] Sep, [facility] [address] [id number] [address] [place] [address], [place] [address] Aug, [facility] [address] [id number] [address] [place] [address], [place] [address] Aug, [facility] [address] [id number] [address] [place] [address], [place] [address] Aug, [facility] [address] [id number] [address] [place] [address], [place] [address] Aug, [facility] [address] [id number] [address] [place] [address], [place] [address] Aug, [facility] [address] [id number] [address] [place] [address], [place] [address] Jul, [facility] [address] [id number] [address] [place] [address], [place] [address] Jul, [facility] [address] [id number] [address] [place] [address], [place] [address] Jun, [facility] [address] [id number] [address] [place] [address], [place] [address] Jun, [facility] [address] [id number] [address] [place] [address], [place] [address] 18 Jun, 2012 [facility] [address] [id number] [address] [place] [address], [place] [address] 18 Jun, 2012 [facility] [address] [id number] [address] [place] [address], [place] [address] Jun, [facility] [address] [id number] [address] [place] [address], [place] [address] Jun, [facility] [address] [id number] [address] [place] [address], [place] [address] Jun, [facility] [address] [id number] [address] [place] [address], [place] [address] Jun, [facility] [address] [id number] [address] [place] [address], [place] [address] Jun, [facility] [address] [id number] [address] [place] [address], [place] [address] May, [facility] [address] [id number] [address] [place] [address], [place] [address] May, [facility] [address] [id number] [address] [place] [address], [place] [address] May, [facility] [address] [id number] [address] [place] [address], [place] [address] May, [facility] [address] [id number] [address] [place] [address], [place] [address] May, [facility] [address] [id number] [address] [place] [address], [place] [address] May, [facility] [address] [id number] [address] [place] [address], [place] [address] May, [facility] [address] [id number] [address] [place] [address], [place] [address] Apr, [facility] [address] [id number] [address] [place] [address], [place] [address] Mar, [facility] [address] [id number] [address] [place] [address], [place] [address] 07 Mar, 2012 [facility] [address] [id number] [address] [place] [address], [place] [address] Feb, [facility] [address] [id number] [address] [place] [address], [place] [address] Feb, [facility] [address] [id number] [address] [place] [address], [place] [address] Feb, [facility] [address] [id number] [address] [place] [address], [place] [address] Feb, [facility] [address] [id number] [address] [place] [address], [place] [address] Jan, [facility] [address] [id number] [address] [place] [address], [place] [address] Jan, [facility] [address] [id number] [address] [place] [address], [place] [address] Jan, [facility] [address] [id number] [address] [place] [address], [place] [address] Jan, [facility] [address] [id number] [address] [place] [address], [place] [address] Dec, [facility] [address] [id number] [address] [place] [address], [place] [address] Dec, [facility] [address] [id number] [address] [place] [address], [place] [address] 17 Dec, 2011 [facility] [address] [id number] [address] [place] [address], [place] [address] 15 Dec, 2011 [facility] [address] [id number] [address] [place] [address], [place] [address] 13 Dec, 2011 [facility] [address] [id number] [address] [place] [address], [place] [address] 06 Sep, 2011 [facility] [address] [id number] [address] [place] [address] Aug, [facility] [address] [id number] [address] [place] [address] Jul, [facility] [address] [id number] [address] [place] [address] Jun, [facility] [address] [id number] [address] [place] [address] Jun, [facility] [address] [id number] [address] [place] [address] Jun, [facility] [address] [id number] [address] [place] [address] Jun, [facility] [address] [id number] [address] [place] [address] May, [facility] [address] [id number] [address] [place] [address] May, [facility] [address] [id number] [address] [place] [address] Apr, [facility] [address] [id number] [address] [place] [address] Jun, [facility] [address] [id number] [address] [place] [address] Apr, IMMUNIZATIONS No Known Immunizations SOCIAL HISTORY [...] 11/2017 Hospitalization History pneumonia 10/07 Hospitalization History [facility] 03/09/19 Hospitalization History via [email or web address]. 07/17/19
--- OUTSIDE RECORDS SUMMARY | 2020-01-29 23:38 | XMS REPORT ---
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 Name Role Phone Migration, Doctor Unavailable Unavailable PROBLEMS Type Condition ICD9-CM Code [id number] Code Onset Dates Condition S tatus SNOMED Code Problem Urinary incontinence R32 Active [id number] Problem Hypothyroidism E03.9 Active 27525 008 Problem Allergic rhinitis J30.9 Active 61 767598 Problem 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 Active 49839661 Problem Microcytic anemia D50.9 Active 23 8637226 Problem Essential hypertension I10 Active 57823636 Problem Type 2 diabetes mellitus with other specified complication E11.69 Active 76573425 Problem Tobacco abuse Z72.0 Active 029225 000 Problem Parotiditis K11.20 Active 65669778 Problem Gastroesophageal reflux disease without esophagitis K21.9 Active 829195444 Problem Type II diabetes mellitus E11.9 Acti ve 92552353 Problem On home oxygen therapy Z99.81 Active 369527627848 Problem Morbid (severe) obesity due to excess calories E66 .01 Active 688411167 Problem Hyperlipidemia LDL goal <70 E78.5 Ac tive 44360422 Problem Seasonal allergic rhinitis due to pollen J30.1 Active 26162650 Problem Chronic bronchitis, unspecified chronic bronchitis type J42 Active 16410667 ALLERGIES No Information ENCOUNTERS Encounter Location Date Diagnosis [facility] [address] [facility] [id number] [address] [place] [address] November, [facility] [id number] [place] [phone] November, Hypothyroidism E03.9 [facility] [address] [facility] [id number] [address] [place] [address] November, Essential hypertension I10 [facility] [address] [facility] [id number] [address] [place] [address] November, [facility] [address] [id number] [address] November, [facility] [id number] [place] [address] November, Tobacco use disorder F17.200 ; COPD (chronic obstructive pulmonary disease) with emphysema J43.9 ; Encounter for tobacco use cessation counseling Z71.6 ; On home oxygen therapy Z99.81 ; Type 2 diabetes mellitus with other specified complication E11.69 ; Tobacco abuse Z72.0 and Morbid (severe) obesity due to excess calories E66.01 [facility] [address] [facility] [id number] [address] [place] [address] Oct, [facility] [address] [id number] [address] [place] [address] Oct, [facility] [address] [id number] [place] [address] Oct, [facility] [address] [id number] [place] [address] Oct, Type II diabetes mellitus E1 1.9 [facility] [id number] [place] [phone] Oct, [facility] [address] [id number] [address] [place] [address] Sep, [facility] [address] [id number] [address] [place] [address] 16 Sep, 2019 COPD (chronic obstructive pu lmonary disease) with emphysema J43.9 [facility] [address] [facility] [id number] [address] [place] [address] Sep, [facility] [address] [facility] [id number] [address] [place] [address] Aug, [facility] [id number] [place] [address] 06 Aug, 2019 Essential hypertension I10 [facility] [address] [facility] [id number] [address] [place] [address] Jul, Parotiditis K11.20 [facility] [address] [facility] [id number] [address] [place] [address] Jul, [facility] [address] [facility] [id number] [address] [place] [address] Jul, Type II diabetes mellitus E1 1.9 [facility] [address] [facility] [id number] [address] [place] [address] Jul, [facility] [address] [facility] [id number] [address] [place] [address] Jul, Pneumonia due to infectious organism, unspecified laterality, unspecified part of lung J18.9 ; On home oxygen therapy Z99.81 ; Type II diabetes mellitus E11.9 ; Tobacco use disorder F17.200 and Encounter for tobacco use cessation counseling Z71.6 [facility] [address] [facility] [id number] [address] [place] [address] 14 Apr, 2019 [facility] [address] [facility] [id number] [address] [place] [address] 30 Mar, 2019 Acute non-recurrent frontal sinusitis J01.10 [facility] [address] [facility] [id number] [address] [place] [address] 17 Mar, 2019 Type 2 diabetes mellitus wit hout complications E11.9 [facility] [address] [facility] [id number] [address] [place] [address] Mar, Type 2 diabetes mellitus wit hout complications E11.9 ; Essential hypertension I10 and Chronic bronchitis, unspecified chronic bronchitis type J42 [facility] [address] [facility] [id number] [address] [place] [address] Feb, [facility] [address] [facility] [id number] [address] [place] [address] Dec, [facility] [address] [facility] [id number] [address] [place] [address] Dec, [facility] [address] [facility] [id number] [address] [place] [address] November, [facility] [place] [facility] [address] [facility] [address] [id number] [address] November, [facility] [place] [facility] [address] [facility] [address] [id number] [place] [address] November, [facility] [place] [address] [id number] [place] [address] November, Allergic rhinitis J30.9 [facility] [address] [id number] [address] [place] [address] November, [facility] [address] [id number] [address] [place] [address] November, [facility] [address] [id number] [address] [place] [address] November, [facility] [address] [id number] [address] [place] [address] Oct, [facility] [address] [id number] [address] [place] [address] Oct, Essential hypertension I10 [facility] [address] [id number] [address] [place] [address] Oct, [facility] [address] [facility] [id number] [address] [place] [address] Oct, [facility] [address] [id number] [address] [place] [address] Oct, [facility] [address] [id number] [address] [place] [address] Oct, [facility] [address] [id number] [address] [place] [address] Oct, [facility] [address] [id number] [address] [place] [address] Oct, Shortness of breath R06.02 a nd Oxygen decrease R09.02 [facility] [address] [id number] [address] [place] [address] Oct, [facility] [address] [facility] [id number] [address] [place] [address] Sep, COPD (chronic obstructive pu lmonary disease) with emphysema J43.9 ; On home oxygen therapy Z99.81 and Hypothyroidism E03.9 [facility] [address] [facility] [id number] [address] [place] [address] Sep, [facility] [address] [facility] [id number] [address] [place] [address] Sep, [facility] [address] [facility] [id number] [address] [place] [address] Sep, Acute on chronic respiratory failure with hypoxia J96.21 ; Hypothyroidism E03.9 ; COPD (chronic obstructive pulmonary disease) with emphysema J43.9 ; Essential hypertension I10 ; Type 2 diabetes mellitus with other specified complication E11.69 ; 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 and Hyperlipidemia LDL goal <70 E78.5 [facility] [address] [facility] [id number] [address] [place] [address] Sep, Allergic rhinitis J30.9 [facility] [address] [facility] [id number] [address] [place] [address] Aug, Allergic rhinitis J30.9 [facility] [address] [facility] [id number] [address] [place] [address] Aug, [facility] [address] [facility] [id number] [address] [place] [address] Aug, [facility] [address] [facility] [id number] [address] [place] [address] Aug, [facility] [address] [facility] [id number] [address] [place] [address] Jul, [facility] [address] [facility] [id number] [address] [place] [address] Jul, Type 2 diabetes mellitus wit h other specified complication E11.69 [facility] [address] [facility] [id number] [address] [place] [address] Jun, [facility] [address] [facility] [id number] [address] [place] [address] May, Hyperlipidemia LDL goal <70 E78.5 ; COPD (chronic obstructive pulmonary disease) with emphysema J43.9 and Encounter for immunization Z23 [facility] [address] [facility] [id number] [address] [place] [address] May, [facility] [address] [facility] [id number] [address] [place] [address] May, Acute upper respiratory infe ction J06.9 [facility] [address] [facility] [id number] [address] [place] [address] May, Essential hypertension I10 [facility] [address] [id number] [address] [place] [address] May, Essential hypertension I10 [facility] [id number] [place] [address] Apr, Essential hypertension I10 [facility] [address] [facility] [id number] [address] [place] [address] Apr, [facility] [address] [facility] [id number] [address] [place] [address] Apr, COPD (chronic obstructive pu lmonary disease) with emphysema J43.9 [facility] [address] [facility] [id number] [address] [place] [address] Apr, [facility] [address] [facility] [id number] [address] [place] [address] Mar, [facility] [id number] [place] [address] Feb, Type 2 diabetes mellitus wit h other specified complication E11.69 ; 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 ; Essential hypertension I10 ; Hyperlipidemia LDL goal <70 E78.5 ; 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 ; Microcytic anemia D50.9 ; Morbid (severe) obesity due to excess calories E66.01 ; Body mass index (BMI) of 39.0-39.9 in adult Z68.39 ; Hypothyroidism E03.9 and Seasonal allergic rhinitis due to pollen J30.1 [facility] [address] [facility] [id number] [address] [place] [address] 15 November, 2018 Pneumonia of right lower lob e due to infectious organism J18.1 ; custodial current use of insulin Z79.4 ; Type [...] without esophagitis K21.9 and Allergic rhinitis J30.9 [address] [place] [address] [address] November, [place] [address] [id number] [place] [address] Sep, [place] [address] [address] Sep, [place] [id number] [place] [address] Sep, [facility] [address] [id number] [address] [place] [address] Sep, [facility] [id number] [address] [place] [address] Jul, Encounter for immunization Z 23 [facility] [id number] [address] [place] [address] Jun, Subacute maxillary sinusitis J01.00 [place] [address] [address] [id number] [place] [address] May, [place] [address] [place] [address] May, [place] [id number] [id number] [place] [address] May, Type II diabetes mellitus E1 1.9 ; Hypothyroidism E03.9 ; COPD (chronic obstructive pulmonary disease) with emphysema J43.9 ; Cough R05 ; COPD with exacerbation J44.1 and Pneumonia of right lower lobe due to infectious organism J18.1 [place] [address] [address] Mar, Hyperlipidemia, unspecified hyperlipidemia type E78.5 [place] [address] [address] Mar, Hypothyroidism E03.9 and Hyp erlipidemia, unspecified hyperlipidemia type E78.5 [place] [address] [address] Feb, Type II diabetes mellitus E1 1.9 [...] F33.42 and Urinary incontinence R32 [place] [address] [id number] [place] [address] Jan, [place] [address] [place] [address] Jan, [place] [address] [address] [id number] [place] [address] November, [place] [address] [address] Sep, Type II diabetes mellitus E1 1.9 [...] and Tinea pedis of both feet B35.3 [facility] [address] [id number] [address] [place] [address] Jun, [facility] [address] [address] Jun, Acute upper respiratory infe ction, unspecified J06.9 and Other viral agents as the cause of diseases classified elsewhere B97.89 [place] [address] [address] May, [place] [address] [address] May, Type 2 diabetes mellitus wit h [...] and Encounter for immunization Z23 [place] [address] [place] [place] [id number] [place] [address] Apr, [place] [address] [address] [id number] [place] [address] Apr, [facility] [address] [address] Mar, [place] [address] [address] Dec, [place] [address] [place] [id number] [place] [address] Dec, [place] [address] [place] [address] 23 Dec, 2015 Encounter for well woman [...] II diabetes mellitus E11.9 and Hypothyroidism E03.9 [facility] [address] [address] November, [facility] [address] [address] November, Type II diabetes mellitus E1 1.9 ; Allergic rhinitis J30.9 ; Hypothyroidism E03.9 ; Obesity due to excess calories E66.09 ; Urinary incontinence R32 ; Gastroesophageal reflux disease without esophagitis K21.9 and Essential hypertension I10 [facility] [address] [address] Oct, [facility] [address] [id number] [address] [place] [address] Sep, [place] [address] [address] Sep, [facility] [address] [id number] [address] [place] [address] Aug, Acute maxillary sinusitis J0 1.00 [facility] [address] [place] [id number] [place] [address] Aug, [facility] [address] [id number] [address] [place] [address] Aug, [facility] [address] [place] [id number] [place] [address] 16 Aug, 2015 Type II diabetes mellitus E1 1.9 [facility] [address] [address] Aug, Type II diabetes mellitus E1 1.9 ; Hypothyroidism E03.9 ; COPD (chronic obstructive pulmonary disease) with emphysema J43.9 ; Obesity due to excess calories E66.09 ; Urinary incontinence R32 ; Anemia D64.9 ; Microcytic anemia D50.9 and Allergic rhinitis J30.9 [facility] [address] [address] May, Upper respiratory symptom R0 9.89 [place] [address] [address] May, Oral thrush B37.0 [place] [address] [address] Apr, Hypothyroidism E03.9 and Harish rocytic anemia D50.9 [place] [address] [address] Apr, Encounter for long-term curr ent use of medication Z79.899 ; Hypothyroidism E03.9 ; Microcytic anemia D50.9 ; Type 2 diabetes mellitus without complication E11.9 ; Essential hypertension I10 and Mixed incontinence N39.46 [place] [address] [address] Apr, [place] [address] [address] Mar, [place] [address] [address] Mar, [facility] [address] [address] Mar, [place] [address] [address] Mar, [facility] [address] [address] Mar, [facility] [address] [address] Mar, [facility] [address] [facility] [id number] [address] [place] [address] Mar, [facility] [address] [facility] [id number] [address] [place] [address] Feb, Cough 786.2 ; Wheezing 786.0 7 ; Hypothyroidism 244.9 and Encounter for long-term current use of medication V58.69 [facility] [address] [facility] [id number] [address] [place] [address] Feb, Diabetes type 2, uncontrolle d 250.02 ; Depression 311 ; Encounter for long-term current use of medication V58.69 and Hypothyroidism 244.9 [facility] [address] [facility] [id number] [address] [place] [address] Feb, [facility] [address] [facility] [id number] [address] [place] [address] Jan, [facility] [address] [facility] [id number] [address] [place] [address] Oct, [facility] [address] [facility] [id number] [address] [place] [address] Oct, [facility] [address] [facility] [id number] [address] [place] [address] Oct, [facility] [address] [facility] [id number] [address] [place] [address] Sep, [facility] [address] [facility] [id number] [address] [place] [address] Sep, [facility] [address] [facility] [id number] [address] [place] [address] Sep, [facility] [address] [facility] [id number] [address] [place] [address] Aug, [facility] [address] [facility] [id number] [address] [place] [address] Aug, [facility] [address] [facility] [id number] [address] [place] [address] Jul, [facility] [address] [id number] [address] [place] [address], [place] [address] Jul, [facility] [address] [id number] [address] [place] [address] Jul, [facility] [address] [id number] [address] [place] [address], [place] [address] Jul, [facility] [address] [id number] [address] [place] [address] Jul, [facility] [address] [id number] [address] [place] [address], [place] [address] Jul, [facility] [address] [id number] [address] [place] [address], [place] [address] Jul, [facility] [address] [id number] [address] [place] [address], [place] [address] Jul, [facility] [address] [id number] [address] [place] [address], [place] [address] Jun, [facility] [address] [id number] [address] [place] [address] Jun, [facility] [address] [id number] [address] [place] [address], [place] [address] May, [facility] [address] [id number] [address] [place] [address], [place] [address] May, [facility] [place] [address] [id number] [address] [place] [address] May, [facility] [place] [facility] [address] [id number] [address] [place] [address], [place] [address] Apr, [facility] [place] [address] [id number] [address] [place] [address], [place] [address] Apr, [facility] [address] [id number] [address] [place] [address], [place] [address] Apr, [facility] [address] [id number] [address] [place] [address], [place] [address] 20 Apr, 2014 [facility] [address] [id number] [address] [place] [address], [place] [address] Apr, [facility] [address] [id number] [address] [place] [address], [place] [address] Apr, [facility] [address] [id number] [address] [place] [address], [place] [address] Mar, [facility] [address] [id number] [address] [place] [address], [place] [address] Mar, [facility] [address] [id number] [address] [place] [address], [place] [address] 19 Mar, 2014 [facility] [address] [id number] [address] [place] [address], [place] [address] 19 Mar, 2014 [facility] [address] [id number] [address] [place] [address], [place] [address] Sep, [facility] [address] [id number] [address] [place] [address], [place] [address] Sep, [facility] [address] [id number] [address] [place] [address], [place] [address] Sep, [facility] [address] [id number] [address] [place] [address], [place] [address] Sep, [facility] [address] [id number] [address] [place] [address], [place] [address] Aug, [facility] [address] [id number] [address] [place] [address], [place] [address] Aug, [facility] [address] [id number] [address] [place] [address], [place] [address] Aug, [facility] [address] [id number] [address] [place] [address], [place] [address] Aug, [facility] [address] [id number] [address] [place] [address], [place] [address] Aug, [facility] [address] [id number] [address] [place] [address], [place] [address] Aug, [facility] [address] [id number] [address] [place] [address], [place] [address] Jul, [facility] [address] [id number] [address] [place] [address], [place] [address] Jul, [facility] [address] [id number] [address] [place] [address], [place] [address] Jul, [facility] [address] [id number] [address] [place] [address], [place] [address] Jul, [facility] [address] [id number] [address] [place] [address], [place] [address] Jun, [facility] [address] [id number] [address] [place] [address], [place] [address] Jun, [facility] [address] [id number] [address] [place] [address], [place] [address] May, [facility] [address] [id number] [address] [place] [address], [place] [address] May, [facility] [address] [id number] [address] [place] [address], [place] [address] Apr, [facility] [address] [id number] [address] [place] [address], [place] [address] Apr, [facility] [address] [id number] [address] [place] [address], [place] [address] Apr, [facility] [address] [id number] [address] [place] [address], [place] [address] 19 Mar, 2013 [facility] [address] [id number] [address] [place] [address], [place] [address] 11 Mar, 2013 [facility] [address] [id number] [address] [place] [address], [place] [address] 04 Mar, 2013 [facility] [address] [id number] [address] [place] [address], [place] [address] Mar, [facility] [address] [id number] [address] [place] [address], [place] [address] Feb, [facility] [address] [id number] [address] [place] [address], [place] [address] Jan, [facility] [address] [id number] [address] [place] [address], [place] [address] Jan, [facility] [address] [id number] [address] [place] [address], [place] [address] Jan, [facility] [address] [id number] [address] [place] [address], [place] [address] Jan, [facility] [address] [id number] [address] [place] [address], [place] [address] Dec, [facility] [address] [id number] [address] [place] [address], [place] [address] Dec, [facility] [address] [id number] [address] [place] [address], [place] [address] Dec, [facility] [address] [id number] [address] [place] [address], [place] [address] Dec, [facility] [address] [id number] [address] [place] [address], [place] [address] Dec, [facility] [address] [id number] [address] [place] [address], [place] [address] Dec, [facility] [address] [id number] [address] [place] [address], [place] [address] November, [facility] [address] [id number] [address] [place] [address], [place] [address] November, [facility] [address] [id number] [address] [place] [address], [place] [address] November, [facility] [address] [id number] [address] [place] [address], [place] [address] Oct, [facility] [address] [id number] [address] [place] [address], [place] [address] Oct, [facility] [address] [id number] [address] [place] [address], [place] [address] Sep, [facility] [address] [id number] [address] [place] [address], [place] [address] Sep, [facility] [address] [id number] [address] [place] [address], [place] [address] Sep, [facility] [address] [id number] [address] [place] [address], [place] [address] Sep, [facility] [address] [id number] [address] [place] [address], [place] [address] Sep, [facility] [address] [id number] [address] [place] [address], [place] [address] Aug, [facility] [address] [id number] [address] [place] [address], [place] [address] Aug, [facility] [address] [id number] [address] [place] [address], [place] [address] Aug, [facility] [address] [id number] [address] [place] [address], [place] [address] Aug, [facility] [address] [id number] [address] [place] [address], [place] [address] Aug, [facility] [address] [id number] [address] [place] [address], [place] [address] Jul, [facility] [address] [id number] [address] [place] [address], [place] [address] Jul, [facility] [address] [id number] [address] [place] [address], [place] [address] Jun, [facility] [address] [id number] [address] [place] [address], [place] [address] Jun, [facility] [address] [id number] [address] [place] [address], [place] [address] 18 Jun, 2012 [facility] [address] [id number] [address] [place] [address], [place] [address] 18 Jun, 2012 [facility] [address] [id number] [address] [place] [address], [place] [address] Jun, [facility] [address] [id number] [address] [place] [address], [place] [address] Jun, [facility] [address] [id number] [address] [place] [address], [place] [address] Jun, [facility] [address] [id number] [address] [place] [address], [place] [address] Jun, [facility] [address] [id number] [address] [place] [address], [place] [address] Jun, [facility] [address] [id number] [address] [place] [address], [place] [address] May, [facility] [address] [id number] [address] [place] [address], [place] [address] May, [facility] [address] [id number] [address] [place] [address], [place] [address] May, [facility] [address] [id number] [address] [place] [address], [place] [address] May, [facility] [address] [id number] [address] [place] [address], [place] [address] May, [facility] [address] [id number] [address] [place] [address], [place] [address] May, [facility] [address] [id number] [address] [place] [address], [place] [address] May, [facility] [address] [id number] [address] [place] [address], [place] [address] Apr, [facility] [address] [id number] [address] [place] [address], [place] [address] Mar, [facility] [address] [id number] [address] [place] [address], [place] [address] 07 Mar, 2012 [facility] [address] [id number] [address] [place] [address], [place] [address] Feb, [facility] [address] [id number] [address] [place] [address], [place] [address] Feb, [facility] [address] [id number] [address] [place] [address], [place] [address] Feb, [facility] [address] [id number] [address] [place] [address], [place] [address] Feb, [facility] [address] [id number] [address] [place] [address], [place] [address] Jan, [facility] [address] [id number] [address] [place] [address], [place] [address] Jan, [facility] [address] [id number] [address] [place] [address], [place] [address] Jan, [facility] [address] [id number] [address] [place] [address], [place] [address] Jan, [facility] [address] [id number] [address] [place] [address], [place] [address] Dec, [facility] [address] [id number] [address] [place] [address], [place] [address] Dec, [facility] [address] [id number] [address] [place] [address], [place] [address] 17 Dec, 2011 [facility] [address] [id number] [address] [place] [address], [place] [address] 15 Dec, 2011 [facility] [address] [id number] [address] [place] [address], [place] [address] 13 Dec, 2011 [facility] [address] [id number] [address] [place] [address], [place] [address] 06 Sep, 2011 [facility] [address] [id number] [address] [place] [address] Aug, [facility] [address] [id number] [address] [place] [address] Jul, [facility] [address] [id number] [address] [place] [address] Jun, [facility] [address] [id number] [address] [place] [address] Jun, [facility] [address] [id number] [address] [place] [address] Jun, [facility] [address] [id number] [address] [place] [address] Jun, [facility] [address] [id number] [address] [place] [address] May, [facility] [address] [id number] [address] [place] [address] May, [facility] [address] [id number] [address] [place] [address] Apr, [facility] [address] [id number] [address] [place] [address] Jun, [facility] [address] [id number] [address] [place] [address] Apr, IMMUNIZATIONS No Known Immunizations SOCIAL HISTORY [...] History [facility] 03/09/19 Hospitalization History via [facility]. 07/17/19
--- OUTSIDE RECORDS SUMMARY | 2020-01-29 23:38 | XMS REPORT ---
Author Author Don Jay Doctor Organization [facility] Address Unknown Phone Unavailable Care Team Providers Care Shallot Packer Name Role Phone Migration, Doctor Unavailable Unavailable PROBLEMS Type Condition ICD9-CM Code STK68-UI Code Onset Dates Condition S tatus SNOMED Code Problem Urinary incontinence R32 Active 338694427 Problem Hypothyroidism E03.9 Active 86087 008 Problem Allergic rhinitis J30.9 Active 61 234455 Problem 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 Active 66606821 Problem Microcytic anemia D50.9 Active 23 9270849 Problem Essential hypertension I10 Active 89421290 Problem Type 2 diabetes mellitus with other specified complication E11.69 Active 66034791 Problem Tobacco abuse Z72.0 Active 311202 000 Problem Parotiditis K11.20 Active 01880755 Problem Gastroesophageal reflux disease without esophagitis K21.9 Active 766511618 Problem Type II diabetes mellitus E11.9 Acti ve 88405245 Problem On home oxygen therapy Z99.81 Active 752567490542 Problem Morbid (severe) obesity due to excess calories E66 .01 Active 586206861 Problem Hyperlipidemia LDL goal <70 E78.5 Ac tive 04579928 Problem Seasonal allergic rhinitis due to pollen J30.1 Active 23752355 Problem Chronic bronchitis, unspecified chronic bronchitis type J42 Active 43717229 ALLERGIES No Information ENCOUNTERS Encounter Location Date Diagnosis [facility] [address] [facility] [id number] [address] [place] [phone] November, [facility] [id number] [place] [phone] November, Hypothyroidism E03.9 [facility] [address] [facility] [id number] [address] [place] [address] November, Essential hypertension I10 [facility] [address] [facility] [id number] [address] [place] [phone] November, [facility] [address] [id number] [address] November, [facility] [id number] [place] [phone] November, Tobacco use disorder F17.200 ; COPD (chronic obstructive pulmonary disease) with emphysema J43.9 ; Encounter for tobacco use cessation counseling Z71.6 ; On home oxygen therapy Z99.81 ; Type 2 diabetes mellitus with other specified complication E11.69 ; Tobacco abuse Z72.0 and Morbid (severe) obesity due to excess calories E66.01 [facility] [address] [facility] [id number] [address] [place] [phone] Oct, [facility] [address] [address] [id number] [address] [place] [phone] Oct, [facility] [address] [id number] [address] [place] [phone] Oct, [facility] [address] [id number] [place] [phone] Oct, Type II diabetes mellitus E1 1.9 [facility] [id number] [place] [phone] Oct, [facility] [address] [id number] [address] [place] [phone] Sep, [facility] [address] [id number] [place] [phone] 16 Sep, 2019 COPD (chronic obstructive pu lmonary disease) with emphysema J43.9 [facility] [address] [facility] [id number] [address] [place] [phone] Sep, [facility] [address] [facility] [id number] [address] [place] [phone] Aug, [facility] [id number] [place] [phone] 06 Aug, 2019 Essential hypertension I10 [facility] [address] [facility] [id number] [address] [place] [phone] Jul, Parotiditis K11.20 [facility] [address] [facility] [id number] [address] [place] [phone] Jul, [facility] [address] [facility] [id number] [address] [place] [phone] Jul, Type II diabetes mellitus E1 1.9 [facility] [address] [facility] [id number] [address] [place] [phone] Jul, [facility] [address] [facility] [id number] [address] [place] [phone] Jul, Pneumonia due to infectious organism, unspecified laterality, unspecified part of lung J18.9 ; On home oxygen therapy Z99.81 ; Type II diabetes mellitus E11.9 ; Tobacco use disorder F17.200 and Encounter for tobacco use cessation counseling Z71.6 [facility] [address] [facility] [id number] [address] [place] [phone] 14 Apr, 2019 [facility] [address] [facility] [id number] [address] [place] [phone] 30 Mar, 2019 Acute non-recurrent frontal sinusitis J01.10 [facility] [address] [facility] [id number] [address] [place] [phone] 17 Mar, 2019 Type 2 diabetes mellitus wit hout complications E11.9 [facility] [address] [facility] [id number] [address] [place] [phone] Mar, Type 2 diabetes mellitus wit hout complications E11.9 ; Essential hypertension I10 and Chronic bronchitis, unspecified chronic bronchitis type J42 [facility] [address] [facility] [id number] [address] [place] [phone] Feb, [facility] [address] [facility] [id number] [address] [place] [phone] Dec, [facility] [address] [facility] [id number] [address] [place] [phone] Dec, [facility] [address] [facility] [id number] [address] [place] [phone] November, [facility] [place] [facility] [address] [facility] [address] [id number] [address] November, [facility] [place] [facility] [address] [facility] [address] [id number] [place] [address] November, [facility] [place] [address] [id number] [place] [address] November, Allergic rhinitis J30.9 [facility] [address] [id number] [address] [place] [phone] November, [facility] [address] [id number] [address] [place] [phone] November, [facility] [address] [id number] [address] [place] [phone] November, [facility] [address] [id number] [address] [place] [phone] Oct, [facility] [address] [id number] [address] [place] [phone] Oct, Essential hypertension I10 [facility] [address] [id number] [address] [place] [phone] Oct, [facility] [address] [facility] [id number] [address] [place] [phone] Oct, [facility] [address] [id number] [address] [place] [phone] Oct, [facility] [address] [id number] [address] [place] [phone] Oct, [facility] [address] [id number] [address] [place] [phone] Oct, [facility] [address] [id number] [address] [place] [phone] Oct, Shortness of breath R06.02 a nd Oxygen decrease R09.02 [facility] [address] [id number] [address] [place] [phone] Oct, [facility] [address] [facility] [id number] [address] [place] [phone] Sep, COPD (chronic obstructive pu lmonary disease) with emphysema J43.9 ; On home oxygen therapy Z99.[address] [facility] [address] [facility] [id number] [address] [place] [phone] Sep, [facility] [address] [facility] [id number] [address] [place] [phone] Sep, 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 [address] [facility] [id number] [address] [place] [phone] Sep, Allergic rhinitis J30.9 [facility] [address] [facility] [id number] [address] [place] [id number] Aug, Allergic rhinitis J30.9 [facility] [address] [facility] [id number] [address] [place] [phone] Aug, [facility] [address] [facility] [id number] [address] [place] [phone] Aug, [facility] [address] [facility] [id number] [address] [place] [phone] Aug, [facility] [address] [facility] [id number] [address] [place] [phone] Jul, [facility] [address] [facility] [id number] [address] [place] [id number] Jul, Type 2 diabetes mellitus wit h other specified complication E11.69 [facility] [address] [facility] [id number] [address] [place] [phone] Jun, [facility] [address] [facility] [id number] [address] [place] [phone] May, Hyperlipidemia LDL goal <70 E78.5 ; COPD (chronic obstructive pulmonary disease) with emphysema J43.9 and Encounter for immunization Z23 [facility] [address] [facility] [id number] [address] [place] [phone] May, [facility] [address] [facility] [id number] [address] [place] [phone] May, Acute upper respiratory infe ction J06.9 [facility] [address] [facility] [id number] [address] [place] [phone] May, Essential hypertension I10 [facility] [address] [place] [id number] [address] [place] [phone] May, Essential hypertension I10 [facility] [address] [id number] [address] [place] [phone] Apr, Essential hypertension I10 [facility] [address] [facility] [id number] [address] [place] [phone] Apr, [facility] [address] [facility] [id number] [address] [place] [phone] Apr, COPD (chronic obstructive pu lmonary disease) with emphysema J43.9 [facility] [address] [facility] [id number] [address] [place] [phone] Apr, [facility] [address] [facility] [id number] [address] [place] [phone] Mar, 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 ; Essential [...] [facility] [address] [facility] [id number] [address] [place] [phone] 15 November, 2018 Pneumonia of right lower lob e due to infectious organism J18.1 ; MCC current use of insulin Z79.4 ; Type [...] without esophagitis K21.9 and Allergic rhinitis J30.9 [address] [address] [id number] November, [address] [address] [place] [id number] [address] [place] [phone] Sep, [address] [address] [id number] Sep, [address] [id number] [place] [phone] Sep, [facility] [address] [id number] [address] [place] [phone] Sep, [facility] [id number] [address] [place] [phone] Jul, Encounter for immunization Z 23 [facility] [id number] [address] [place] [phone] Jun, Subacute maxillary sinusitis J01.00 [place] [address] [place] [id number] [address] [place] [phone] May, [place] [address] [place] [address] May, [place] [id number] [place] [phone] May, Type II diabetes mellitus E1 1.9 ; Hypothyroidism E03.9 ; COPD (chronic obstructive pulmonary disease) with emphysema J43.9 ; Cough R05 ; COPD with exacerbation J44.1 and Pneumonia of right lower lobe due to infectious organism J18.1 [place] [address] [address] Mar, Hyperlipidemia, unspecified hyperlipidemia type E78.5 [place] [address] [address] Mar, Hypothyroidism E03.9 and Hyp erlipidemia, unspecified hyperlipidemia type E78.5 [place] [address] [address] Feb, Type II diabetes mellitus E1 1.9 [...] full remission F33.42 and Urinary incontinence R32 [place] [address] [place] [id number] [place] [phone] Jan, [place] [address] [place] [phone] Jan, [place] [id number] [place] [address] November, [place] [address] [address] Sep, Type II diabetes mellitus E1 1.9 [...] Tinea pedis of both feet B35.3 [facility] [address] [place] [id number] [address] [place] [phone] Jun, [facility] [address] [address] Jun, Acute upper respiratory infe ction, unspecified J06.9 and Other viral agents as the cause of diseases classified elsewhere B97.89 [place] [address] [address] May, [place] [address] [address] May, Type 2 diabetes mellitus wit h [...] thrush B37.0 and Encounter for immunization Z23 [place] [address] [place] [id number] [place] [phone] Apr, [place] [address] [address] [id number] [place] [phone] Apr, [facility] [address] [address] Mar, [place] [address] [address] Dec, [place] [address] [place] [id number] [address] [place] [phone] Dec, [place] [address] [place] [address] 23 Dec, 2015 Encounter for well woman [...] [facility] [address] [address] November, [facility] [address] [address] November, Type II diabetes mellitus E1 1.9 ; Allergic rhinitis J30.9 ; Hypothyroidism E03.9 ; Obesity due to excess calories E66.09 ; Urinary incontinence R32 ; Gastroesophageal reflux disease without esophagitis K21.9 and Essential hypertension I10 [facility] [address] [address] Oct, [facility] [address] [place] [id number] [address] [place] [phone] Sep, [place] [address] [address] Sep, [facility] [address] [place] [id number] [address] [place] [phone] Aug, Acute maxillary sinusitis J0 1.00 [facility] [address] [place] [id number] [address] [place] [phone] Aug, [facility] [address] [place] [id number] [address] [place] [phone] Aug, [facility] [address] [place] [address] [id number] [place] [address] 16 Aug, 2015 Type II diabetes mellitus E1 1.9 [facility] [address] [address] Aug, Type II diabetes mellitus E1 1.9 ; Hypothyroidism E03.9 ; COPD (chronic obstructive pulmonary disease) with emphysema J43.9 ; Obesity due to excess calories E66.09 ; Urinary incontinence R32 ; Anemia D64.9 ; Microcytic anemia D50.9 and Allergic rhinitis J30.9 [facility] [address] [address] May, Upper respiratory symptom R0 9.89 [place] [address] [address] May, Oral thrush B37.0 [place] [address] [address] Apr, Hypothyroidism E03.9 and Harish rocytic anemia D50.9 [place] [address] [address] Apr, Encounter for long-term curr ent use of medication Z79.899 ; Hypothyroidism E03.9 ; Microcytic anemia D50.9 ; Type 2 diabetes mellitus without complication E11.9 ; Essential hypertension I10 and Mixed incontinence N39.46 [place] [address] [address] Apr, [place] [address] [address] Mar, [place] [address] [address] Mar, [facility] [address] [address] Mar, [place] [address] [address] Mar, [facility] [address] [address] Mar, [facility] [address] [address] Mar, [facility] [address] [facility] [id number] [address] [place] [phone] Mar, [facility] [address] [facility] [id number] [address] [place] [phone] Feb, Cough 786.2 ; Wheezing 786.0 7 ; Hypothyroidism 244.9 and Encounter for long-term current use of medication V58.69 [facility] [address] [facility] [id number] [address] [place] [phone] Feb, Diabetes type 2, uncontrolle d 250.02 ; Depression 311 ; Encounter for long-term current use of medication V58.[address] [facility] [address] [facility] [id number] [address] [place] [phone] Feb, [facility] [address] [facility] [id number] [address] [place] [phone] Jan, [facility] [address] [facility] [id number] [address] [place] [phone] Oct, [facility] [address] [facility] [id number] [address] [place] [phone] Oct, [facility] [address] [facility] [id number] [address] [place] [phone] Oct, [facility] [address] [facility] [id number] [address] [place] [phone] Sep, [facility] [address] [facility] [id number] [address] [place] [phone] Sep, [facility] [address] [facility] [id number] [address] [place] [phone] Sep, [facility] [address] [facility] [id number] [address] [place] [id number] Aug, [facility] [address] [facility] [id number] [address] [place] [phone] Aug, [facility] [address] [facility] [id number] [address] [place] [phone] Jul, [facility] [address] [id number] [address] [place] [address], [place] [id number] Jul, [facility] [address] [id number] [address] [place] [id number] Jul, [facility] [address] [id number] [address] [place] [address], [place] [id number] Jul, [facility] [address] [id number] [address] [place] [id number] Jul, [facility] [address] [id number] [address] [place] [address], [place] [id number] Jul, [facility] [address] [id number] [address] [place] [address], [place] [id number] Jul, [facility] [address] [id number] [address] [place] [address], [place] [id number] Jul, [facility] [address] [id number] [address] [place] [address], [place] [id number] Jun, [facility] [address] [id number] [address] [place] [id number] Jun, [facility] [address] [id number] [address] [place] [address], [place] [id number] May, [facility] [address] [id number] [address] [place] [address], [place] [id number] May, [facility] [address] [id number] [address] [place] [id number] May, [facility] [address] [id number] [address] [place] [address], [place] [id number] Apr, [facility] [address] [id number] [address] [place] [address], [place] [id number] Apr, [facility] [address] [id number] [address] [place] [address], [place] [id number] Apr, [facility] [address] [id number] [address] [place] [address], [place] [id number] 20 Apr, 2014 [facility] [address] [id number] [address] [place] [address], [place] [id number] Apr, [facility] [address] [id number] [address] [place] [address], [place] [id number] Apr, [facility] [address] [id number] [address] [place] [address], [place] [id number] Mar, [facility] [address] [id number] [address] [place] [place] [address], [place] [address] Mar, [facility] [address] [id number] [address] [place] [address], [place] [address] 19 Mar, 2014 [facility] [address] [id number] [address] [place] [address], [place] [address] 19 Mar, 2014 [facility] [address] [id number] [address] [place] [address], [place] [address] Sep, [facility] [address] [id number] [address] [place] [address], [place] [address] Sep, [facility] [address] [id number] [address] [place] [address], [place] [address] Sep, [facility] [address] [id number] [address] [place] [address], [place] [address] Sep, [facility] [address] [id number] [address] [place] [address], [place] [address] Aug, [facility] [address] [id number] [address] [place] [address], [place] [address] Aug, [facility] [address] [id number] [address] [place] [address], [place] [address] Aug, [facility] [address] [id number] [address] [place] [address], [place] [address] Aug, [facility] [address] [id number] [address] [place] [address], [place] [address] Aug, [facility] [address] [id number] [address] [place] [address], [place] [address] Aug, [facility] [address] [id number] [address] [place] [address], [place] [address] Jul, [facility] [address] [id number] [address] [place] [address], [place] [address] Jul, [facility] [address] [id number] [address] [place] [address], [place] [address] Jul, [facility] [address] [id number] [address] [place] [address], [place] [address] Jul, [facility] [address] [id number] [address] [place] [address], [place] [address] Jun, [facility] [address] [id number] [address] [place] [address], [place] [address] Jun, [facility] [address] [id number] [address] [place] [address], [place] [address] May, [facility] [address] [id number] [address] [place] [address], [place] [address] May, [facility] [address] [id number] [address] [place] [address], [place] [address] Apr, [facility] [address] [id number] [address] [place] [address], [place] [address] Apr, [facility] [address] [id number] [address] [place] [address], [place] [address] Apr, [facility] [address] [id number] [address] [place] [address], [place] [address] 19 Mar, 2013 [facility] [address] [id number] [address] [place] [address], [place] [address] 11 Mar, 2013 [facility] [address] [id number] [address] [place] [address], [place] [address] 04 Mar, 2013 [facility] [address] [id number] [address] [place] [address], [place] [address] Mar, [facility] [address] [id number] [address] [place] [address], [place] [address] Feb, [facility] [address] [id number] [address] [place] [address], [place] [address] Jan, [facility] [address] [id number] [address] [place] [address], [place] [address] Jan, [facility] [address] [id number] [address] [place] [address], [place] [address] Jan, [facility] [address] [id number] [address] [place] [address], [place] [address] Jan, [facility] [address] [id number] [address] [place] [address], [place] [address] Dec, [facility] [address] [id number] [address] [place] [address], [place] [address] Dec, [facility] [address] [id number] [address] [place] [address], [place] [address] Dec, [facility] [address] [id number] [address] [place] [address], [place] [address] Dec, [facility] [address] [id number] [address] [place] [address], [place] [address] Dec, [facility] [address] [id number] [address] [place] [address], [place] [address] Dec, [facility] [address] [id number] [address] [place] [address], [place] [address] November, [facility] [address] [id number] [address] [place] [address], [place] [address] November, [facility] [address] [id number] [address] [place] [address], [place] [address] November, [facility] [address] [id number] [address] [place] [address], [place] [address] Oct, [facility] [address] [id number] [address] [place] [address], [place] [address] Oct, [facility] [address] [id number] [address] [place] [address], [place] [address] Sep, [facility] [address] [id number] [address] [place] [address], [place] [address] Sep, [facility] [address] [id number] [address] [place] [address], [place] [address] Sep, [facility] [address] [id number] [address] [place] [address], [place] [address] Sep, [facility] [address] [id number] [address] [place] [address], [place] [address] Sep, [facility] [address] [id number] [address] [place] [address], [place] [address] Aug, [facility] [address] [id number] [address] [place] [address], [place] [address] Aug, [facility] [address] [id number] [address] [place] [address], [place] [address] Aug, [facility] [address] [id number] [address] [place] [address], [place] [address] Aug, [facility] [address] [id number] [address] [place] [address], [place] [address] Aug, [facility] [address] [id number] [address] [place] [address], [place] [address] Jul, [facility] [address] [id number] [address] [place] [address], [place] [address] Jul, [facility] [address] [id number] [address] [place] [address], [place] [address] Jun, [facility] [address] [id number] [address] [place] [address], [place] [address] Jun, [facility] [address] [id number] [address] [place] [address], [place] [address] 18 Jun, 2012 [facility] [address] [id number] [address] [place] [address], [place] [address] 18 Jun, 2012 [facility] [address] [id number] [address] [place] [address], [place] [address] Jun, [facility] [address] [id number] [address] [place] [address], [place] [address] Jun, [facility] [address] [id number] [address] [place] [address], [place] [address] Jun, [facility] [address] [id number] [address] [place] [address], [place] [address] Jun, [facility] [address] [id number] [address] [place] [address], [place] [address] Jun, [facility] [address] [id number] [address] [place] [address], [place] [address] May, [facility] [address] [id number] [address] [place] [address], [place] [address] May, [facility] [address] [id number] [address] [place] [address], [place] [address] May, [facility] [address] [id number] [address] [place] [address], [place] [address] May, [facility] [address] [id number] [address] [place] [address], [place] [address] May, [facility] [address] [id number] [address] [place] [address], [place] [address] May, [facility] [address] [id number] [address] [place] [address], [place] [address] May, [facility] [address] [id number] [address] [place] [address], [place] [address] Apr, [facility] [address] [id number] [address] [place] [address], [place] [address] Mar, [facility] [address] [id number] [address] [place] [address], [place] [address] 07 Mar, 2012 [facility] [address] [id number] [address] [place] [address], [place] [address] Feb, [facility] [address] [id number] [address] [place] [address], [place] [address] Feb, [facility] [address] [id number] [address] [place] [address], [place] [address] Feb, [facility] [address] [id number] [address] [place] [address], [place] [address] Feb, [facility] [address] [id number] [address] [place] [address], [place] [address] Jan, [facility] [address] [id number] [address] [place] [address], [place] [address] Jan, [facility] [address] [id number] [address] [place] [address], [place] [address] Jan, [facility] [address] [id number] [address] [place] [address], [place] [address] Jan, [facility] [address] [id number] [address] [place] [address], [place] [address] Dec, [facility] [address] [id number] [address] [place] [address], [place] [address] Dec, [facility] [address] [id number] [address] [place] [address], [place] [address] 17 Dec, 2011 [facility] [address] [id number] [address] [place] [address], [place] [address] 15 Dec, 2011 [facility] [address] [id number] [address] [place] [address], [place] [address] 13 Dec, 2011 [facility] [address] [id number] [address] [place] [address], [place] [address] 06 Sep, 2011 [facility] [address] [id number] [address] [place] [id number] Aug, [facility] [address] [id number] [address] [place] [id number] Jul, [facility] [address] [id number] [address] [place] [id number] Jun, [facility] [address] [id number] [address] [place] [id number] Jun, [facility] [address] [id number] [address] [place] [id number] Jun, [facility] [address] [id number] [address] [place] [id number] Jun, [facility] [address] [id number] [address] [place] [id number] May, [facility] [address] [id number] [address] [place] [id number] May, [facility] [address] [id number] [address] [place] [id number] Apr, [facility] [address] [id number] [address] [place] [id number] Jun, [facility] [address] [id number] [address] [place] [id number] Apr, IMMUNIZATIONS No Known Immunizations SOCIAL HISTORY [...]
--- OUTSIDE RECORDS SUMMARY | 2020-01-29 23:38 | XMS REPORT ---
Author Author Don Jay Doctor Organization [facility] Address Unknown Phone Unavailable Care Team Providers Care Chip Applying Machine Tender Name Role Phone Migration, Doctor Unavailable Unavailable PROBLEMS Type Condition ICD9-CM Code KUV29-TT Code Onset Dates Condition S tatus SNOMED Code Problem Urinary incontinence R32 Active 723089123 Problem Hypothyroidism E03.9 Active 07516 008 Problem Allergic rhinitis J30.9 Active 61 275064 Problem 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 Active 87983970 Problem Microcytic anemia D50.9 Active 23 0725651 Problem Essential hypertension I10 Active 83273049 Problem Type 2 diabetes mellitus with other specified complication E11.69 Active 97501565 Problem Tobacco abuse Z72.0 Active 063173 000 Problem Parotiditis K11.20 Active 04624145 Problem Gastroesophageal reflux disease without esophagitis K21.9 Active 823474965 Problem Type II diabetes mellitus E11.9 Acti ve 86497197 Problem On home oxygen therapy Z99.81 Active 590223924903 Problem Morbid (severe) obesity due to excess calories E66 .01 Active 569138810 Problem Hyperlipidemia LDL goal <70 E78.5 Ac tive 27421568 Problem Seasonal allergic rhinitis due to pollen J30.1 Active 76295751 Problem Chronic bronchitis, unspecified chronic bronchitis type J42 Active 91743753 ALLERGIES No Information ENCOUNTERS Encounter Location Date Diagnosis [facility] [address] [facility] [id number] [address] [place] [phone] November, [facility] [id number] [place] [phone] November, Hypothyroidism E03.9 [facility] [address] [facility] [id number] [address] [place] [phone] November, Essential hypertension I10 [facility] [address] [facility] [id number] [address] [place] [phone] November, [facility] [address] [id number] [address] November, [facility] [id number] [place] [phone] November, Tobacco use disorder F17.200 ; COPD (chronic obstructive pulmonary disease) with emphysema J43.9 ; Encounter for tobacco use cessation counseling Z71.6 ; On home oxygen therapy Z99.81 ; Type 2 diabetes mellitus with other specified complication E11.69 ; Tobacco abuse Z72.0 and Morbid (severe) obesity due to excess calories E66.01 [facility] [address] [facility] [id number] [address] [place] [phone] Oct, [facility] [address] [id number] [address] [place] [phone] Oct, [facility] [address] [id number] [address] [place] [phone] Oct, [facility] [address] [id number] [address] [place] [phone] Oct, Type II diabetes mellitus E1 1.9 [facility] [id number] [place] [phone] Oct, [facility] [address] [id number] [address] [place] [phone] Sep, [facility] [address] [id number] [address] [place] [id number] 16 Sep, 2019 COPD (chronic obstructive pu lmonary disease) with emphysema J43.9 [facility] [address] [facility] [id number] [address] [place] [phone] Sep, [facility] [address] [facility] [id number] [address] [place] [phone] Aug, [facility] [id number] [place] [phone] 06 Aug, 2019 Essential hypertension I10 [facility] [address] [facility] [id number] [address] [place] [address] Jul, Parotiditis K11.20 [facility] [address] [facility] [id number] [address] [place] [phone] Jul, [facility] [address] [facility] [id number] [address] [place] [phone] Jul, Type II diabetes mellitus E1 1.9 [facility] [address] [facility] [id number] [address] [place] [phone] Jul, [facility] [address] [facility] [id number] [address] [place] [phone] Jul, Pneumonia due to infectious organism, unspecified laterality, unspecified part of lung J18.9 ; On home oxygen therapy Z99.81 ; Type II diabetes mellitus E11.9 ; Tobacco use disorder F17.200 and Encounter for tobacco use cessation counseling Z71.6 [facility] [address] [facility] [id number] [address] [place] [phone] 14 Apr, 2019 [facility] [address] [facility] [id number] [address] [place] [phone] 30 Mar, 2019 Acute non-recurrent frontal sinusitis J01.10 [facility] [address] [facility] [id number] [address] [place] [phone] 17 Mar, 2019 Type 2 diabetes mellitus wit hout complications E11.9 [facility] [address] [facility] [id number] [address] [place] [phone] Mar, Type 2 diabetes mellitus wit hout complications E11.9 ; Essential hypertension I10 and Chronic bronchitis, unspecified chronic bronchitis type J42 [facility] [address] [facility] [id number] [address] [place] [phone] Feb, [facility] [address] [facility] [id number] [address] [place] [id number] Dec, [facility] [address] [facility] [id number] [address] [place] [phone] Dec, [facility] [address] [facility] [id number] [address] [place] [phone] November, [facility] [place] [facility] [address] [facility] [address] [id number] [address] November, [facility] [place] [facility] [address] [facility] [address] [id number] [place] [address] November, [facility] [place] [address] [id number] [place] [address] November, Allergic rhinitis J30.9 [facility] [address] [id number] [address] [place] [phone] November, [facility] [address] [id number] [address] [place] [phone] November, [facility] [address] [id number] [address] [place] [phone] November, [facility] [address] [id number] [address] [place] [phone] Oct, [facility] [address] [id number] [address] [place] [address] Oct, Essential hypertension I10 [facility] [address] [id number] [address] [place] [phone] Oct, [facility] [address] [facility] [id number] [address] [place] [phone] Oct, [facility] [address] [id number] [address] [place] [phone] Oct, [facility] [address] [id number] [address] [place] [phone] Oct, [facility] [address] [id number] [address] [place] [phone] Oct, [facility] [address] [id number] [address] [place] [address] Oct, Shortness of breath R06.02 a nd Oxygen decrease R09.02 [facility] [address] [id number] [address] [place] [phone] Oct, [facility] [address] [facility] [id number] [address] [place] [phone] Sep, COPD (chronic obstructive pu lmonary disease) with emphysema J43.9 ; On home oxygen therapy Z99.81 and Hypothyroidism E03.9 [facility] [address] [facility] [id number] [address] [place] [phone] Sep, [facility] [address] [facility] [id number] [address] [place] [phone] Sep, [facility] [address] [facility] [id number] [address] [place] [phone] Sep, Acute on chronic respiratory failure with hypoxia J96.21 ; Hypothyroidism E03.9 ; COPD (chronic obstructive pulmonary disease) with emphysema J43.9 ; Essential hypertension I10 ; Type 2 diabetes mellitus with other specified complication E11.69 ; 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 and Hyperlipidemia LDL goal <70 E78.5 [facility] [address] [facility] [id number] [address] [place] [id number] Sep, Allergic rhinitis J30.9 [facility] [address] [facility] [id number] [address] [place] [phone] Aug, Allergic rhinitis J30.9 [facility] [address] [facility] [id number] [address] [place] [id number] Aug, [facility] [address] [facility] [id number] [address] [place] [phone] Aug, [facility] [address] [facility] [id number] [address] [place] [id number] Aug, [facility] [address] [facility] [id number] [address] [place] [phone] Jul, [facility] [address] [facility] [id number] [address] [place] [id number] Jul, Type 2 diabetes mellitus wit h other specified complication E11.69 [facility] [address] [facility] [id number] [address] [place] [phone] Jun, [facility] [address] [facility] [id number] [address] [place] [phone] May, Hyperlipidemia LDL goal <70 E78.5 ; COPD (chronic obstructive pulmonary disease) with emphysema J43.9 and Encounter for immunization Z23 [facility] [address] [facility] [id number] [address] [place] [phone] May, [facility] [address] [facility] [id number] [address] [place] [id number] May, Acute upper respiratory infe ction J06.9 [facility] [address] [facility] [id number] [address] [place] [phone] May, Essential hypertension I10 [facility] [address] [id number] [address] [place] [phone] May, Essential hypertension I10 [facility] [address] [id number] [address] [place] [phone] Apr, Essential hypertension I10 [facility] [address] [facility] [id number] [address] [place] [phone] Apr, [facility] [address] [facility] [id number] [address] [place] [id number] Apr, COPD (chronic obstructive pu lmonary disease) with emphysema J43.9 [facility] [address] [facility] [id number] [address] [place] [id number] Apr, [facility] [address] [facility] [id number] [address] [place] [id number] Mar, [facility] [address] [id number] [address] [place] [id number] Feb, Type 2 diabetes mellitus wit h other specified complication E11.69 ; 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 ; Essential hypertension I10 ; Hyperlipidemia LDL goal <70 E78.5 ; COPD (chronic obstructive pulmonary disease) with emphysema J43.9 ; Microcytic anemia D50.9 ; Morbid (severe) obesity due to excess calories E66.01 ; Body mass index (BMI) of 39.0-39.9 in adult Z68.39 ; Hypothyroidism E03.9 and Seasonal allergic rhinitis due to pollen J30.1 [facility] [address] [facility] [id number] [address] [place] [id number] 15 November, 2018 Pneumonia of right lower [...] K21.9 and Allergic rhinitis J30.9 [address] [address] [address] November, [place] [id number] [place] [phone] Sep, [place] [address] [id number] Sep, [place] [id number] [place] [address] Sep, [facility] [address] [id number] [address] [place] [phone] Sep, [facility] [address] [id number] [address] [place] [phone] Jul, Encounter for immunization Z 23 [facility] [address] [id number] [address] [place] [address] Jun, Subacute maxillary sinusitis J01.00 [place] [address] [id number] [place] [phone] May, [place] [address] [place] [address] May, [place] [id number] [place] [address] May, Type II diabetes mellitus E1 1.9 ; Hypothyroidism E03.9 ; COPD (chronic obstructive pulmonary disease) with emphysema J43.9 ; Cough R05 ; COPD with exacerbation J44.1 and Pneumonia of right lower lobe due to infectious organism J18.1 [place] [address] [id number] Mar, Hyperlipidemia, unspecified hyperlipidemia type E78.5 [place] [address] [address] Mar, Hypothyroidism E03.9 and Hyp erlipidemia, unspecified hyperlipidemia type E78.5 [place] [address] [address] Feb, Type II diabetes mellitus E1 1.9 [...] F33.42 and Urinary incontinence R32 [place] [address] [id number] [place] [address] Jan, [place] [id number] [place] [phone] Jan, [place] [address] [id number] [place] [address] November, [place] [address] [id number] Sep, Type II diabetes mellitus E1 1.9 [...] and Tinea pedis of both feet B35.3 [facility] [address] [id number] [place] [phone] Jun, [facility] [address] [address] Jun, Acute upper respiratory infe ction, unspecified J06.9 and Other viral agents as the cause of diseases classified elsewhere B97.89 [place] [address] [address] May, [place] [address] [address] May, Type 2 diabetes mellitus wit h [...] thrush B37.0 and Encounter for immunization Z23 [place] [address] [id number] [place] [address] Apr, [place] [address] [id number] [place] [address] Apr, [facility] [address] [address] Mar, [place] [address] [address] Dec, [place] [address] [place] [id number] [place] [address] Dec, [place] [address] [place] [address] 23 Dec, 2015 Encounter for well woman [...] II diabetes mellitus E11.9 and Hypothyroidism E03.9 [facility] [address] [address] November, [facility] [address] [address] November, Type II diabetes mellitus E1 1.9 ; Allergic rhinitis J30.9 ; Hypothyroidism E03.9 ; Obesity due to excess calories E66.09 ; Urinary incontinence R32 ; Gastroesophageal reflux disease without esophagitis K21.9 and Essential hypertension I10 [facility] [address] [address] Oct, [facility] [address] [id number] [place] [phone] Sep, [place] [address] [address] Sep, [facility] [address] [id number] [address] [place] [phone] Aug, Acute maxillary sinusitis J0 1.00 [facility] [address] [id number] [place] [address] Aug, [facility] [address] [id number] [address] [place] [phone] Aug, [facility] [id number] [place] [address] 16 Aug, 2015 Type II diabetes mellitus E1 1.9 [facility] [address] [address] Aug, Type II diabetes mellitus E1 1.9 ; Hypothyroidism E03.9 ; COPD (chronic obstructive pulmonary disease) with emphysema J43.9 ; Obesity due to excess calories E66.09 ; Urinary incontinence R32 ; Anemia D64.9 ; Microcytic anemia D50.9 and Allergic rhinitis J30.9 [facility] [address] [address] May, Upper respiratory symptom R0 9.89 [place] [address] [address] May, Oral thrush B37.0 [place] [address] [address] Apr, Hypothyroidism E03.9 and Harish rocytic anemia D50.9 [place] [address] [address] Apr, Encounter for long-term curr ent use of medication Z79.899 ; Hypothyroidism E03.9 ; Microcytic anemia D50.9 ; Type 2 diabetes mellitus without complication E11.9 ; Essential hypertension I10 and Mixed incontinence N39.46 [place] [address] [address] Apr, [place] [address] [address] Mar, [place] [address] [address] Mar, [facility] [address] [address] Mar, [place] [address] [address] Mar, [facility] [address] [address] Mar, [facility] [address] [address] Mar, [facility] [address] [facility] [id number] [address] [place] [address] Mar, [facility] [address] [facility] [id number] [address] [place] [address] Feb, Cough 786.2 ; Wheezing 786.0 7 ; Hypothyroidism 244.9 and Encounter for long-term current use of medication V58.69 [facility] [address] [facility] [id number] [address] [place] [address] Feb, Diabetes type 2, uncontrolle d 250.02 ; Depression 311 ; Encounter for long-term current use of medication V58.69 and Hypothyroidism 244.9 [facility] [address] [facility] [id number] [address] [place] [phone] Feb, [facility] [address] [facility] [id number] [address] [place] [id number] Jan, [facility] [address] [facility] [id number] [address] [place] [phone] Oct, [facility] [address] [facility] [id number] [address] [place] [phone] Oct, [facility] [address] [facility] [id number] [address] [place] [phone] Oct, [facility] [address] [facility] [id number] [address] [place] [phone] Sep, [facility] [address] [facility] [id number] [address] [place] [address] Sep, [facility] [address] [facility] [id number] [address] [place] [phone] Sep, [facility] [address] [facility] [id number] [address] [place] [phone] Aug, [facility] [address] [facility] [id number] [address] [place] [phone] Aug, [facility] [address] [facility] [id number] [address] [place] [phone] Jul, [facility] [address] [id number] [address] [place] [address], [place] [address] Jul, [facility] [address] [id number] [address] [place] [phone] Jul, [facility] [address] [id number] [address] [place] [address], [place] [address] Jul, [facility] [address] [id number] [address] [place] [phone] Jul, [facility] [address] [id number] [address] [place] [address], [place] [address] Jul, [facility] [address] [id number] [address] [place] [address], [place] [address] Jul, [facility] [address] [id number] [address] [place] [address], [place] [address] Jul, [facility] [address] [id number] [address] [place] [address], [place] [address] Jun, [facility] [address] [id number] [address] [place] [phone] Jun, [facility] [address] [id number] [address] [place] [address], [place] [address] May, [facility] [address] [id number] [address] [place] [address], [place] [address] May, [facility] [place] [facility] [address] [id number] [address] [place] [id number] May, [facility] [place] [facility] [address] [id number] [address] [place] [address], [place] [address] Apr, [facility] [place] [facility] [address] [id number] [address] [place] [address], [place] [address] Apr, [facility] [place] [facility] [address] [id number] [address] [place] [address], [place] [address] Apr, [facility] [place] [facility] [address] [id number] [address] [place] [address], [place] [phone] 20 Apr, 2014 [facility] [address] [id number] [address] [place] [address], [place] [address] Apr, [facility] [address] [id number] [address] [place] [address], [place] [address] Apr, [facility] [address] [id number] [address] [place] [address], [place] [address] Mar, [facility] [address] [id number] [address] [place] [address], [place] [address] Mar, [facility] [address] [id number] [address] [place] [address], [place] [address] 19 Mar, 2014 [facility] [address] [id number] [address] [place] [address], [place] [id number] 19 Mar, 2014 [facility] [address] [id number] [address] [place] [address], [place] [address] Sep, [facility] [address] [id number] [address] [place] [address], [place] [id number] Sep, [facility] [address] [id number] [address] [place] [address], [place] [id number] Sep, [facility] [address] [id number] [address] [place] [address], [place] [id number] Sep, [facility] [address] [id number] [address] [place] [address], [place] [id number] Aug, [facility] [address] [id number] [address] [place] [address], [place] [id number] Aug, [facility] [address] [id number] [address] [place] [address], [place] [id number] Aug, [facility] [address] [id number] [address] [place] [address], [place] [id number] Aug, [facility] [address] [id number] [address] [place] [address], [place] [id number] Aug, [facility] [address] [id number] [address] [place] [address], [place] [id number] Aug, [facility] [address] [id number] [address] [place] [address], [place] [id number] Jul, [facility] [address] [id number] [address] [place] [address], [place] [id number] Jul, [facility] [address] [id number] [address] [place] [address], [place] [id number] Jul, [facility] [address] [id number] [address] [place] [address], [place] [id number] Jul, [facility] [address] [id number] [address] [place] [address], [place] [id number] Jun, [facility] [address] [id number] [address] [place] [address], [place] [id number] Jun, [facility] [address] [id number] [address] [place] [address], [place] [id number] May, [facility] [address] [id number] [address] [place] [address], [place] [phone] May, [facility] [address] [id number] [address] [place] [address], [place] [address] Apr, [facility] [address] [id number] [address] [place] [address], [place] [id number] Apr, [facility] [address] [id number] [address] [place] [address], [place] [phone] Apr, [facility] [address] [id number] [address] [place] [address], [place] [id number] 19 Mar, 2013 [facility] [address] [id number] [address] [place] [address], [place] [id number] 11 Mar, 2013 [facility] [address] [id number] [address] [place] [address], [place] [id number] 04 Mar, 2013 [facility] [address] [id number] [address] [place] [address], [place] [id number] Mar, [facility] [address] [id number] [address] [place] [address], [place] [id number] Feb, [facility] [address] [id number] [address] [place] [address], [place] [id number] Jan, [facility] [address] [id number] [address] [place] [address], [place] [phone] Jan, [facility] [address] [id number] [address] [place] [address], [place] [phone] Jan, [facility] [address] [id number] [address] [place] [address], [place] [id number] Jan, [facility] [address] [id number] [address] [place] [address], [place] [id number] Dec, [facility] [address] [id number] [address] [place] [address], [place] [phone] Dec, [facility] [address] [id number] [address] [place] [address], [place] [phone] Dec, [facility] [address] [id number] [address] [place] [address], [place] [phone] Dec, [facility] [address] [id number] [address] [place] [address], [place] [id number] Dec, [facility] [address] [id number] [address] [place] [address], [place] [phone] Dec, [facility] [address] [id number] [address] [place] [address], [place] [phone] November, [facility] [address] [id number] [address] [place] [address], [place] [address] November, [facility] [address] [id number] [address] [place] [address], [place] [phone] November, [facility] [address] [id number] [address] [place] [address], [place] [id number] Oct, [facility] [address] [id number] [address] [place] [address], [place] [phone] Oct, [facility] [address] [id number] [address] [place] [address], [place] [phone] Sep, [facility] [address] [id number] [address] [place] [address], [place] [phone] Sep, [facility] [address] [id number] [address] [place] [address], [place] [phone] Sep, [facility] [address] [id number] [address] [place] [address], [place] [phone] Sep, [facility] [address] [id number] [address] [place] [address], [place] [phone] Sep, [facility] [address] [id number] [address] [place] [address], [place] [phone] Aug, [facility] [address] [id number] [address] [place] [address], [place] [phone] Aug, [facility] [address] [id number] [address] [place] [address], [place] [phone] Aug, [facility] [address] [id number] [address] [place] [address], [place] [id number] Aug, [facility] [address] [id number] [address] [place] [address], [place] [phone] Aug, [facility] [address] [id number] [address] [place] [address], [place] [phone] Jul, [facility] [address] [id number] [address] [place] [address], [place] [phone] Jul, [facility] [address] [id number] [address] [place] [address], [place] [phone] Jun, [facility] [address] [id number] [address] [place] [address], [place] [phone] Jun, [facility] [address] [id number] [address] [place] [address], [place] [id number] 18 Jun, 2012 [facility] [address] [id number] [address] [place] [address], [place] [id number] 18 Jun, 2012 [facility] [address] [id number] [address] [place] [address], [place] [address] Jun, [facility] [address] [id number] [address] [place] [address], [place] [address] Jun, [facility] [address] [id number] [address] [place] [address], [place] [phone] Jun, [facility] [address] [id number] [address] [place] [address], [place] [address] Jun, [facility] [address] [id number] [address] [place] [address], [place] [address] Jun, [facility] [address] [id number] [address] [place] [address], [place] [phone] May, [facility] [address] [id number] [address] [place] [address], [place] [phone] May, [facility] [address] [id number] [address] [place] [address], [place] [address] May, [facility] [address] [id number] [address] [place] [address], [place] [phone] May, [facility] [address] [id number] [address] [place] [address], [place] [phone] May, [facility] [address] [id number] [address] [place] [address], [place] [address] May, [facility] [address] [id number] [address] [place] [address], [place] [phone] May, [facility] [address] [id number] [address] [place] [address], [place] [phone] Apr, [facility] [address] [id number] [address] [place] [address], [place] [address] Mar, [facility] [address] [id number] [address] [place] [address], [place] [phone] 07 Mar, 2012 [facility] [address] [id number] [address] [place] [address], [place] [phone] Feb, [facility] [address] [id number] [address] [place] [address], [place] [phone] Feb, [facility] [address] [id number] [address] [place] [address], [place] [phone] Feb, [facility] [address] [id number] [address] [place] [address], [place] [address] Feb, [facility] [address] [id number] [address] [place] [address], [place] [address] Jan, [facility] [address] [id number] [address] [place] [address], [place] [phone] Jan, [facility] [address] [id number] [address] [place] [address], [place] [phone] Jan, [facility] [address] [id number] [address] [place] [address], [place] [address] Jan, [facility] [address] [id number] [address] [place] [address], [place] [phone] Dec, [facility] [address] [id number] [address] [place] [address], [place] [address] Dec, [facility] [address] [id number] [address] [place] [address], [place] [id number] 17 Dec, 2011 [facility] [address] [id number] [address] [place] [address], [place] [id number] 15 Dec, 2011 [facility] [address] [id number] [address] [place] [address], [place] [phone] 13 Dec, 2011 [facility] [address] [id number] [address] [place] [address], [place] [id number] 06 Sep, 2011 [facility] [address] [id number] [address] [place] [id number] Aug, [facility] [address] [id number] [address] [place] [phone] Jul, [facility] [address] [id number] [address] [place] [phone] Jun, [facility] [address] [id number] [address] [place] [phone] Jun, [facility] [address] [id number] [address] [place] [phone] Jun, [facility] [address] [id number] [address] [place] [phone] Jun, [facility] [address] [id number] [address] [place] [phone] May, [facility] [address] [id number] [address] [place] [phone] May, [facility] [address] [id number] [address] [place] [phone] Apr, [facility] [address] [id number] [address] [place] [phone] Jun, [facility] [address] [id number] [address] [place] [phone] Apr, IMMUNIZATIONS No Known Immunizations SOCIAL HISTORY [...] 11/2017 Hospitalization History pneumonia 10/07 Hospitalization History [facility] 03/09/19 Hospitalization History via [facility]. 07/17/19
--- OUTSIDE RECORDS SUMMARY | 2020-01-29 23:38 | XMS REPORT ---
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 Name Role Phone DAYRON Cummins Unavailable PROBLEMS Type Condition ICD9-CM Code UXQ14-MA Code Onset Dates Condition S tatus SNOMED Code Problem Urinary incontinence R32 Active 526588191 Problem Hypothyroidism E03.9 Active 68895 008 Problem Allergic rhinitis J30.9 Active 61 907208 Problem 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 Active 33027261 Problem Microcytic anemia D50.9 Active 23 5585014 Problem Essential hypertension I10 Active 10320326 Problem Type 2 diabetes mellitus with other specified complication E11.69 Active 35534924 Problem Tobacco abuse Z72.0 Active 291346 000 Problem Parotiditis K11.20 Active 04174864 Problem Gastroesophageal reflux disease without esophagitis K21.9 Active 713626871 Problem Type II diabetes mellitus E11.9 Acti ve 74896804 Problem On home oxygen therapy Z99.81 Active 639716748761 Problem Morbid (severe) obesity due to excess calories E66 .01 Active 233438713 Problem Hyperlipidemia LDL goal <70 E78.5 Ac tive 15133764 Problem Seasonal allergic rhinitis due to pollen J30.1 Active 28710884 Problem Chronic bronchitis, unspecified chronic bronchitis type J42 Active 87971551 ALLERGIES No Information ENCOUNTERS Encounter Location Date Diagnosis [facility] [address] [facility] [id number] [place] [address] November, [facility] [address] [facility] [id number] [place] [address] November, Hypothyroidism E03.9 [facility] [address] [facility] [id number] [address] [place] [phone] November, Essential hypertension I10 [facility] [address] [facility] [id number] [address] [place] [address] November, [facility] [address] [facility] [id number] [place] [address] November, [facility] [address] [place] [id number] [place] [address] November, Tobacco use disorder F17.200 ; COPD (chronic obstructive pulmonary disease) with emphysema J43.9 ; Encounter for tobacco use cessation counseling Z71.6 ; On home oxygen therapy Z99.81 ; Type 2 diabetes mellitus with other specified complication E11.69 ; Tobacco abuse Z72.0 and Morbid (severe) obesity due to excess calories E66.01 [facility] [address] [facility] [id number] [address] [place] [phone] Oct, [facility] [address] [facility] [id number] [address] [place] [phone] Oct, [facility] [address] [place] [id number] [address] [place] [phone] Oct, [facility] [address] [facility] [id number] [address] [place] [address] Oct, Type II diabetes mellitus E1 1.9 [facility] [address] [facility] [id number] [place] [address] Oct, [facility] [address] [facility] [id number] [address] [place] [phone] Sep, [facility] [address] [place] [id number] [address] [place] [phone] 16 Sep, 2019 COPD (chronic obstructive pu lmonary disease) with emphysema J43.9 [facility] [address] [facility] [id number] [address] [place] [phone] 02 Sep, 2019 [facility] [address] [facility] [id number] [address] [place] [phone] Aug, [facility] [address] [facility] [id number] [place] [address] 06 Aug, 2019 Essential hypertension I10 [facility] [address] [facility] [id number] [address] [place] [address] Jul, Parotiditis K11.20 [facility] [address] [facility] [id number] [address] [place] [phone] Jul, [facility] [address] [facility] [id number] [address] [place] [phone] Jul, Type II diabetes mellitus E1 1.9 [facility] [address] [facility] [id number] [address] [place] [phone] Jul, [facility] [address] [facility] [id number] [address] [place] [address] Jul, Pneumonia due to infectious organism, unspecified laterality, unspecified part of lung J18.9 ; On home oxygen therapy Z99.81 ; Type II diabetes mellitus E11.9 ; Tobacco use disorder F17.200 and Encounter for tobacco use cessation counseling Z71.6 [facility] [address] [facility] [id number] [address] [place] [phone] Apr, [facility] [address] [facility] [id number] [address] [place] [address] Mar, Acute non-recurrent frontal sinusitis J01.10 [facility] [address] [facility] [id number] [address] [place] [address] 17 Mar, 2019 Type 2 diabetes mellitus wit hout complications E11.9 [facility] [address] [facility] [id number] [address] [place] [phone] Mar, Type 2 diabetes mellitus wit hout complications E11.9 ; Essential hypertension I10 and Chronic bronchitis, unspecified chronic bronchitis type J42 [facility] [address] [facility] [id number] [address] [place] [phone] Feb, [facility] [address] [facility] [id number] [address] [place] [phone] Dec, [facility] [address] [place] [id number] [address] [place] [phone] Dec, [facility] [address] [id number] [address] [place] [phone] November[facility] [place] [facility] [address] [facility] [address] [id number] [place] [address] November, [facility] [place] [place] [facility] [address] [facility] [address] [id number] [place] [address] November, [facility] [place] [facility] [address] [facility] [address] [id number] [address] November, Allergic rhinitis J30.9 [facility] [address] [id number] [address] [place] [phone] November, [facility] [address] [id number] [address] [place] [phone] November, [facility] [address] [id number] [address] [place] [phone] November, [facility] [address] [id number] [address] [place] [phone] Oct, [facility] [address] [id number] [address] [place] [phone] Oct, Essential hypertension I10 [facility] [address] [id number] [address] [place] [phone] Oct, [facility] [address] [id number] [address] [place] [phone] Oct, [facility] [address] [id number] [address] [place] [phone] Oct, [facility] [address] [id number] [address] [place] [phone] Oct, [facility] [address] [id number] [address] [place] [phone] Oct, [facility] [address] [id number] [address] [place] [phone] Oct, Shortness of breath R06.02 a nd Oxygen decrease R09.02 [facility] [address] [facility] [id number] [address] [place] [phone] Oct, [facility] [address] [facility] [id number] [address] [place] [phone] Sep, COPD (chronic obstructive pu lmonary disease) with emphysema J43.9 ; On home oxygen therapy Z99.81 and Hypothyroidism E03.9 [facility] [address] [facility] [id number] [address] [place] [phone] Sep, [facility] [address] [facility] [id number] [address] [place] [address] Sep, [facility] [address] [place] [id number] [address] [place] [phone] Sep, Acute on chronic respiratory failure with hypoxia J96.21 ; Hypothyroidism E03.9 ; COPD (chronic obstructive pulmonary disease) with emphysema J43.9 ; Essential hypertension I10 ; Type 2 diabetes mellitus with other specified complication E11.69 ; penitentiary current use of insulin Z79.4 and Hyperlipidemia LDL goal <70 E78.5 [facility] [address] [facility] [id number] [address] [place] [phone] Sep, Allergic rhinitis J30.9 [facility] [address] [place] [id number] [address] [place] [phone] Aug, Allergic rhinitis J30.9 [facility] [address] [facility] [id number] [address] [place] [phone] Aug, [facility] [address] [place] [id number] [address] [place] [phone] Aug, [facility] [address] [place] [id number] [address] [place] [phone] Aug, [facility] [address] [facility] [id number] [address] [place] [phone] Jul, [facility] [address] [place] [id number] [address] [place] [id number] Jul, Type 2 diabetes mellitus wit h other specified complication E11.69 [facility] [address] [id number] [address] [place] [phone] Jun, [facility] [address] [facility] [id number] [address] [place] [phone] May, Hyperlipidemia LDL goal <70 E78.5 ; COPD (chronic obstructive pulmonary disease) with emphysema J43.9 and Encounter for immunization Z23 [facility] [address] [facility] [id number] [address] [place] [phone] May, [facility] [address] [facility] [id number] [address] [place] [phone] May, Acute upper respiratory infe ction J06.9 [facility] [address] [facility] [id number] [address] [place] [phone] May, Essential hypertension I10 [facility] [address] [facility] [id number] [address] [place] [phone] May, Essential hypertension I10 [facility] [address] [id number] [address] [place] [phone] Apr, Essential hypertension I10 [facility] [address] [id number] [address] [place] [phone] Apr, [facility] [address] [facility] [id number] [address] [place] [phone] Apr, COPD (chronic obstructive pu lmonary disease) with emphysema J43.9 [facility] [address] [id number] [address] [place] [phone] Apr, [facility] [address] [facility] [id number] [address] [place] [phone] Mar, [facility] [address] [facility] [id number] [address] [place] [id number] Feb, Type 2 diabetes mellitus wit h other specified complication E11.69 ; penitentiary current use of insulin Z79.4 ; Essential hypertension I10 ; Hyperlipidemia LDL goal <70 E78.5 ; COPD (chronic obstructive pulmonary disease) with emphysema J43.9 ; Microcytic anemia D50.9 ; Morbid (severe) obesity due to excess calories E66.01 ; Body mass index (BMI) of 39.0-39.9 in adult Z68.39 ; Hypothyroidism E03.9 and Seasonal allergic rhinitis due to pollen J30.1 [place] [id number] [address] November, Pneumonia of right lower lob e due to infectious organism J18.1 ; 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 [...] [facility] [address] [phone] November, [place] [address] [address] Sep, [place] [address] [address] Sep, [place] [address] [address] Sep, [place] [address] [address] Sep, [facility] [address] [address] Jul, Encounter for immunization Z 23 [facility] [address] [place] [id number] [address] [place] [phone] Jun, Subacute maxillary sinusitis J01.00 [place] [address] [place] [id number] [address] May, [facility] [address] [facility] [id number] [address] [place] [phone] May, [facility] [address] [place] [id number] [address] [place] [phone] May, Type II diabetes mellitus E1 1.9 ; Hypothyroidism E03.9 ; COPD (chronic obstructive pulmonary disease) with emphysema J43.9 ; Cough R05 ; COPD with exacerbation J44.1 and Pneumonia of right lower lobe due to infectious organism J18.1 [facility] [address] [place] [id number] [address] [place] [address] Mar, Hyperlipidemia, unspecified hyperlipidemia type E78.5 [place] [address] [place] [id number] [place] [phone] Mar, Hypothyroidism E03.9 and Hyp erlipidemia, unspecified hyperlipidemia type E78.5 [place] [address] [place] [id number] [address] [place] [phone] Feb, Type II diabetes mellitus E1 1.9 [...] full remission F33.42 and Urinary incontinence R32 [facility] [address] [place] [id number] [address] [place] [phone] Jan, [facility] [address] [place] [id number] [address] [place] [phone] Jan, [place] [address] [place] [id number] [address] [place] [address] November, [facility] [address] [place] [id number] [address] [place] [phone] Sep, Type II diabetes mellitus E1 1.9 [...] and Tinea pedis of both feet B35.[address] [address] Jun, [facility] [address] [address] Jun, Acute upper respiratory infe ction, unspecified J06.9 and Other viral agents as the cause of diseases classified elsewhere B97.[address] [address] May, [address] [address] May, Type 2 diabetes mellitus wit h [...] thrush B37.0 and Encounter for immunization Z23 [place] [address] [place] [id number] [address] [place] [phone] Apr, [place] [address] [address] Apr, [address] [address] Mar, [place] [address] [place] [id number] [address] [place] [phone] Dec, [place] [id number] [place] [phone] 24 Dec, 2015 [facility] [address] [place] [id number] [address] [place] [phone] Dec, Encounter for well woman gurinder jaime [...] Hypothyroidism E03.9 [facility] [address] [address] November, [place] [address] [address] November, Type II diabetes mellitus E1 1.9 ; Allergic rhinitis J30.9 ; Hypothyroidism E03.9 ; Obesity due to excess calories E66.09 ; Urinary incontinence R32 ; Gastroesophageal reflux disease without esophagitis K21.9 and Essential hypertension I10 [place] [address] [place] [id number] [address] [place] [phone] Oct, [place] [address] [place] [id number] [address] [place] [phone] Sep, [facility] [address] [place] [id number] [address] [place] [phone] Sep, [facility] [address] [place] [id number] [address] [place] [phone] Aug, Acute maxillary sinusitis J0 1.00 [facility] [address] [place] [id number] [address] [place] [phone] Aug, [facility] [address] [place] [id number] [address] [place] [phone] Aug, [facility] [address] [address] Aug, Type II diabetes mellitus E1 1.9 [place] [address] [address] Aug, Type II diabetes mellitus E1 1.9 ; Hypothyroidism E03.9 ; COPD (chronic obstructive pulmonary disease) with emphysema J43.9 ; Obesity due to excess calories E66.09 ; Urinary incontinence R32 ; Anemia D64.9 ; Microcytic anemia D50.9 and Allergic rhinitis J30.9 [place] [address] [address] May, Upper respiratory symptom R0 9.[address] [address] May, Oral thrush B37.[address] [address] Apr, Hypothyroidism E03.9 and Harish rocytic anemia D50.[address] [address] Apr, Encounter for long-term curr ent use of medication Z79.899 ; Hypothyroidism E03.9 ; Microcytic anemia D50.9 ; Type 2 diabetes mellitus without complication E11.9 ; Essential hypertension I10 and Mixed incontinence N39.46 [place] [address] [address] Apr, [place] [address] [address] Mar, [place] [address] [address] Mar, [place] [address] [address] Mar, [place] [address] [address] Mar, [place] [address] [address] Mar, [facility] [address] [facility] [id number] [address] [place] [address] Mar, [facility] [address] [id number] [address] [place] [phone] Mar, [facility] [address] [facility] [id number] [address] [place] [address] Feb, Cough 786.2 ; Wheezing 786.0 7 ; Hypothyroidism 244.9 and Encounter for long-term current use of medication V58.69 [facility] [address] [id number] [address] [place] [address] Feb, Diabetes type 2, uncontrolle d 250.02 ; Depression 311 ; Encounter for long-term current use of medication V58.69 and Hypothyroidism 244.9 [facility] [address] [facility] [id number] [address] [place] [phone] Feb, [facility] [address] [facility] [id number] [address] [place] [address] Jan, [facility] [address] [facility] [id number] [address] [place] [phone] Oct, [facility] [address] [facility] [id number] [address] [place] [phone] Oct, [facility] [address] [facility] [id number] [address] [place] [phone] Oct, [facility] [address] [facility] [id number] [address] [place] [phone] Sep, [facility] [address] [id number] [address] [place] [phone] Sep, [facility] [address] [facility] [id number] [address] [place] [phone] Sep, [facility] [address] [facility] [id number] [address] [place] [phone] Aug, [facility] [address] [facility] [id number] [address] [place] [phone] Aug, [facility] [address] [id number] [address] [place] [address], [place] [address] Jul, [facility] [address] [id number] [address] [place] [phone] Jul, [facility] [address] [id number] [address] [place] [address], [place] [address] Jul, [facility] [address] [id number] [address] [place] [address], [place] [address] Jul, [facility] [address] [id number] [address] [place] [address], [place] [address] Jul, [facility] [address] [id number] [address] [place] [address], [place] [address] Jul, [facility] [address] [id number] [address] [place] [id number] Jul, [facility] [address] [id number] [address] [place] [address], [place] [address] Jul, [facility] [address] [id number] [address] [place] [id number] Jun, [facility] [address] [id number] [address] [place] [id number] Jun, [facility] [address] [id number] [address] [place] [address], [place] [address] May, [facility] [address] [id number] [address] [place] [id number] May, [facility] [address] [id number] [address] [place] [address], [place] [address] May, [facility] [address] [id number] [address] [place] [address], [place] [address] Apr, [facility] [address] [id number] [address] [place] [address], [place] [address] Apr, [facility] [address] [id number] [address] [place] [address], [place] [address] 20 Apr, 2014 [facility] [address] [id number] [address] [place] [address], [place] [address] 20 Apr, 2014 [facility] [address] [id number] [address] [place] [address], [place] [address] Apr, [facility] [address] [id number] [address] [place] [address], [place] [address] Apr, [facility] [address] [id number] [address] [place] [address], [place] [address] 22 Mar, 2014 [facility] [address] [id number] [address] [place] [address], [place] [address] 22 Mar, 2014 [facility] [address] [id number] [address] [place] [address], [place] [address] 19 Mar, 2014 [facility] [address] [id number] [address] [place] [address], [place] [address] 19 Mar, 2014 [facility] [address] [id number] [address] [place] [address], [place] [address] 19 Sep, 2013 [facility] [address] [id number] [address] [place] [address], [place] [address] Sep, [facility] [address] [id number] [address] [place] [address], [place] [address] Sep, [facility] [address] [id number] [address] [place] [address], [place] [address] Sep, [facility] [address] [id number] [address] [place] [address], [place] [id number] Aug, [facility] [address] [id number] [address] [place] [address], [place] [address] Aug, [facility] [address] [id number] [address] [place] [address], [place] [address] Aug, [facility] [address] [id number] [place] [address] Aug, [facility] [address] [id number] [address] [place] [address], [place] [address] Aug, [facility] [address] [id number] [address] [place] [address], [place] [address] Aug, [facility] [address] [id number] [address] [place] [address], [place] [address] Jul, [facility] [address] [id number] [address] [place] [address], [place] [address] Jul, [facility] [address] [id number] [address] [place] [address], [place] [address] Jul, [facility] [address] [id number] [address] [place] [address], [place] [address] Jul, [facility] [address] [id number] [address] [place] [address], [place] [address] Jun, [facility] [address] [id number] [address] [place] [address], [place] [address] Jun, [facility] [address] [id number] [address] [place] [id number] May, [facility] [address] [id number] [address] [place] [address], [place] [address] May, [facility] [address] [id number] [address] [place] [address], [place] [address] Apr, [facility] [address] [id number] [address] [place] [address] Apr, [facility] [address] [id number] [address] [place] [address], [place] [address] Apr, [facility] [address] [id number] [address] [place] [address], [place] [address] 19 Mar, 2013 [facility] [address] [id number] [address] [place] [address], [place] [address] 11 Mar, 2013 [facility] [address] [id number] [address] [place] [address], [place] [address] Mar, [facility] [address] [id number] [address] [place] [address], [place] [address] Mar, [facility] [address] [id number] [address] [place] [address], [place] [address] Feb, [facility] [address] [id number] [address] [place] [address], [place] [address] Jan, [facility] [address] [id number] [address] [place] [address], [place] [address] Jan, [facility] [address] [id number] [address] [place] [address], [place] [address] Jan, [facility] [address] [id number] [address] [place] [address], [place] [address] Jan, [facility] [address] [id number] [address] [place] [address], [place] [address] Dec, [facility] [address] [id number] [address] [place] [address], [place] [address] Dec, [facility] [address] [id number] [address] [place] [address], [place] [address] Dec, [facility] [address] [id number] [address] [place] [address], [place] [address] Dec, [facility] [address] [id number] [address] [place] [address], [place] [address] Dec, [facility] [address] [id number] [address] [place] [address], [place] [address] Dec, [facility] [address] [id number] [address] [place] [address], [place] [address] November, [facility] [address] [id number] [address] [place] [address], [place] [address] November, [facility] [address] [id number] [address] [place] [address], [place] [address] November, [facility] [address] [id number] [address] [place] [address], [place] [address] Oct, [facility] [address] [id number] [address] [place] [address], [place] [address] Oct, [facility] [address] [id number] [address] [place] [address], [place] [address] Sep, [facility] [address] [id number] [address] [place] [address], [place] [address] Sep, [facility] [address] [id number] [address] [place] [address], [place] [address] Sep, [facility] [address] [id number] [address] [place] [address], [place] [address] Sep, [facility] [address] [id number] [address] [place] [address], [place] [address] Sep, [facility] [address] [id number] [address] [place] [address], [place] [address] Aug, [facility] [address] [id number] [address] [place] [address], [place] [address] Aug, [facility] [address] [id number] [address] [place] [address], [place] [address] Aug, [facility] [address] [id number] [address] [place] [address], [place] [address] Aug, [facility] [address] [id number] [address] [place] [address], [place] [address] Aug, [facility] [address] [id number] [address] [place] [address], [place] [address] Jul, [facility] [address] [id number] [address] [place] [address], [place] [address] Jul, [facility] [address] [id number] [address] [place] [address], [place] [address] Jun, [facility] [address] [id number] [address] [place] [address], [place] [address] Jun, [facility] [address] [id number] [address] [place] [address], [place] [address] Jun, [facility] [address] [id number] [address] [place] [address], [place] [address] 18 Jun, 2012 [facility] [address] [id number] [address] [place] [address], [place] [address] Jun, [facility] [address] [id number] [address] [place] [address], [place] [address] Jun, [facility] [address] [id number] [address] [place] [address], [place] [address] Jun, [facility] [address] [id number] [address] [place] [address], [place] [address] Jun, [facility] [address] [id number] [address] [place] [address], [place] [address] Jun, [facility] [address] [id number] [address] [place] [address], [place] [address] May, [facility] [address] [id number] [address] [place] [address], [place] [address] May, [facility] [address] [id number] [address] [place] [address], [place] [address] May, [facility] [address] [id number] [address] [place] [address], [place] [address] May, [facility] [address] [id number] [address] [place] [address], [place] [address] May, [facility] [address] [id number] [address] [place] [address], [place] [address] May, [facility] [address] [id number] [address] [place] [address], [place] [address] May, [facility] [address] [id number] [address] [place] [address], [place] [address] Apr, [facility] [address] [id number] [address] [place] [address], [place] [address] Mar, [facility] [address] [id number] [address] [place] [address], [place] [address] Mar, [facility] [address] [id number] [address] [place] [address], [place] [address] Feb, [facility] [address] [id number] [address] [place] [address], [place] [address] Feb, [facility] [address] [id number] [address] [place] [address], [place] [address] Feb, [facility] [address] [id number] [address] [place] [address], [place] [address] Feb, [facility] [address] [id number] [address] [place] [address], [place] [address] Jan, [facility] [address] [id number] [address] [place] [address], [place] [address] Jan, [facility] [address] [id number] [address] [place] [address], [place] [address] Jan, [facility] [address] [id number] [address] [place] [address], [place] [address] Jan, [facility] [address] [id number] [address] [place] [address], [place] [address] Dec, [facility] [address] [id number] [address] [place] [address], [place] [address] Dec, [facility] [address] [id number] [address] [place] [address], [place] [address] 17 Dec, 2011 [facility] [address] [id number] [address] [place] [address], [place] [address] 15 Dec, 2011 [facility] [address] [id number] [address] [place] [address], [place] [address] 13 Dec, 2011 [facility] [address] [id number] [address] [place] [id number] Sep, [facility] [address] [id number] [address] [place] [address] Aug, [facility] [address] [id number] [address] [place] [id number] Jul, [facility] [address] [id number] [address] [place] [id number] Jun, [facility] [address] [id number] [address] [place] [id number] Jun, [facility] [address] [id number] [address] [place] [id number] Jun, [facility] [address] [id number] [address] [place] [id number] Jun, [facility] [address] [id number] [address] [place] [id number] May, [facility] [address] [id number] [address] [place] [id number] May, [facility] [address] [id number] [address] [place] [id number] Apr, [facility] [address] [id number] [address] [place] [id number] Jun, [facility] [address] [id number] [address] [place] [id number] Apr, IMMUNIZATIONS No Known Immunizations SOCIAL HISTORY [...]
--- OUTSIDE RECORDS SUMMARY | 2020-01-29 23:49 | XMS REPORT | Continuity of Care Document ---
Demographics Preferred Language Unknown Marital Status Unknown Restoration Affiliation Unknown Race Unknown Ethnic Group Unknown [...] 599.0 Urinary Tract Infection 08/26/2008 BLAIR DO, VÍTCOR K 401.1 ESSENTIAL HYPERTENSION BENIGN 08/26/2008 BLAIR [...] 465.9 Upper Respiratory Infection 04/18/2010 BLAIR DO, VÍTCOR K 786.2 Cough 04/18/2010 BLAIR DO, VÍCTOR [...] DO, VÍCTOR K 786.2 Cough 04/18/2010 TERRIE PRODUCT MANAGEMENT MANAGER JOEL R 244.9 HYPOTHYROIDISM 04/18/2010 FALCON PRODUCT MANAGEMENT MANAGER, JOEL R 296.90 MOOD DISORDER 04/18/2010 TERIRE PRODUCT MANAGEMENT MANAGER, JOEL R 465.9 Upper Respiratory Infection 04/18/2010 [...] Hypo potassemia 07/26/2010 496 COPD 07/26/2010 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 07/26/2010 790.4 Abno rmal Liver Function Test 07/26/2010 276.8 Hypo potassemia 07/26/2010 496 COPD 07/26/2010 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00 OBESITY UNSPECIFIED 03/13/2011 BLAIR DO, [...] R 250.02 DIABETES II UNCONTROLLED (UNCOMPLICATED) 07/06/2011 JOLE FALCON APRN R 272.4 HYPERLIPIDEMIA 07/06/2011 250.02 [...] EPISODIC MOOD DISORDER 11/25/2017 Ot 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 51 [facility] (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 OF INHALED STERO 09/22/2018 AJ WETZEL MD Ot Z79. 52 ONLINE SERVICES MANAGER (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 OF SYSTEMIC STER 09/22/2018 AJ WETZEL MD Ot Z79. 84 ONLINE SERVICES MANAGER (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 OF ORAL HYPOGLYC 09/24/2018 [...] 09/24/2018 AJ WETZEL MD Ot Z79. 51 ONLINE SERVICES MANAGER (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 OF INHALED STERO 09/24/2018 AJ WETZEL MD Ot Z79. 52 ONLINE SERVICES MANAGER (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 OF SYSTEMIC STER 09/24/2018 AJ WETZEL MD Ot Z79. 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 01/15/2019 Ot 496 CHR AI [...] OTHER SPECIFIED PART 01/21/2019 SALINA, BERTRAM E PRODUCT MANAGEMENT MANAGER Ot E66.9 OBESITY, UNSPECIFIED 01/21/2019 SALINA, BERTRAM E PRODUCT MANAGEMENT MANAGER Ot F17.200 NICOTINE DEPENDENCE, UNSPECIFIED, UNCOMP 01/21/2019 SALINA, BERTRAM E PRODUCT MANAGEMENT MANAGER Ot F39 UNSPECIFIED MOOD [AFFECTIVE] DISORDER 01/21/2019 SALINA, BERTRAM E PRODUCT MANAGEMENT MANAGER Ot G47.10 HYPERSOMNIA, UNSPECIFIED 01/21/2019 SALINA, BERTRAM E PRODUCT MANAGEMENT MANAGER Ot G47.33 OBSTRUCTIVE SLEEP APNEA (ADULT) (PEDIATR 01/21/2019 SALINA, BERTRAM E PRODUCT MANAGEMENT MANAGER Ot J18.8 OTHER PNEUMONIA, UNSPECIFIED ORGANISM 01/21/2019 SALINACARIDADBERTRAM E PRODUCT MANAGEMENT MANAGER Ot J44.9 CHRONIC OBSTRUCTIVE PULMONARY DISEASE, U 01/21/2019 SALINA, BERTRAM E PRODUCT MANAGEMENT MANAGER Ot J96.21 ACUTE AND CHRONIC RESPIRATORY FAILURE [place] 01/21/2019 SALINA, BERTRAM E PRODUCT MANAGEMENT MANAGER Ot J96.91 RESPIRATORY FAILURE, UNSPECIFIED WITH HY 01/21/2019 SALINACARIDAD C[place]INE E PRODUCT MANAGEMENT MANAGER Ot Z90.49 ACQUIRED ABSENCE OF OTHER SPECIFIED PART 02/03/2019 SALINA, BERTRAM E PRODUCT MANAGEMENT MANAGER Ot E66.9 OBESITY, UNSPECIFIED 02/03/2019 SALINA, BERTRAM E PRODUCT MANAGEMENT MANAGER Ot F17.200 NICOTINE DEPENDENCE, UNSPECIFIED, UNCOMP 02/03/2019 SALINA, BERTRAM E PRODUCT MANAGEMENT MANAGER Ot F39 UNSPECIFIED MOOD [AFFECTIVE] DISORDER 02/03/2019 SALINACARIDAD CLEVELANDINE E PRODUCT MANAGEMENT MANAGER Ot G47.10 HYPERSOMNIA, UNSPECIFIED 02/03/2019 SALINA, BERTRAM E PRODUCT MANAGEMENT MANAGER Ot G47.33 OBSTRUCTIVE SLEEP APNEA (ADULT) (PEDIATR 02/03/2019 SALINA BERTRAM E PRODUCT MANAGEMENT MANAGER Ot J18.8 OTHER PNEUMONIA, UNSPECIFIED ORGANISM 02/03/2019 SALINA, BERTRAM E PRODUCT MANAGEMENT MANAGER Ot J44.9 CHRONIC OBSTRUCTIVE PULMONARY DISEASE, U 02/03/2019 SALINA, BERTRAM E PRODUCT MANAGEMENT MANAGER Ot J96.21 ACUTE AND CHRONIC RESPIRATORY FAILURE [place] 02/03/2019 SALINA, BERTRAM E PRODUCT MANAGEMENT MANAGER Ot J96.91 RESPIRATORY FAILURE, UNSPECIFIED WITH HY 02/03/2019 SALINA, BERTRAM E PRODUCT MANAGEMENT MANAGER Ot Z90.49 ACQUIRED ABSENCE OF OTHER SPECIFIED [...] ADULT 03/10/2019 VAN GONZALEZ MD, Ot Z79.84 [facility] (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 OF ORAL HYPOGLYC 03/10/2019 VAN GONZALEZ MD Ot Z91.19 PATIENT'S NONCOMPLIANCE W [facility] TR 03/10/2019 VAN GONZALEZ MD, Ot [...] ADULT 03/11/2019 VAN GONZALEZ MD, Ot Z79.84 [facility] (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 OF ORAL HYPOGLYC 03/11/2019 VAN GONZALEZ MD, Ot Z91.19 PATIENT'S NONCOMPLIANCE W [facility] MED[facility] TR 03/11/2019 VAN GONZALEZ MD, Ot [...] ADULT 03/11/2019 VAN GONZALEZ MD, Ot Z79.84 [facility] (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 OF ORAL HYPOGLYC 03/11/2019 VAN GONZALEZ MD, Ot Z91.19 PATIENT'S NONCOMPLIANCE W [facility] MEDICAL TR 03/11/2019 VAN GONZALEZ MD, Ot [...] ADULT 03/12/2019 VAN GONZALEZ MD, Ot Z79.84 ONLINE SERVICES MANAGER (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 OF ORAL HYPOGLYC 03/12/2019 VAN GONZALEZ MD, Ot Z91.19 PATIENT'S NONCOMPLIANCE W [facility] MEDICAL TR 03/12/2019 VAN GONZALEZ MD, Ot [...] ADULT 03/12/2019 VAN GONZALEZ MD, Ot Z79.84 ONLINE SERVICES MANAGER (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 OF ORAL HYPOGLYC 03/12/2019 VAN GONZALEZ MD, Ot Z91.19 PATIENT'S NONCOMPLIANCE W [facility] MED[facility] TR 03/12/2019 VAN GONZALEZ MD, Ot [...] ADULT 03/13/2019 VAN GONZALEZ MD, Ot Z79.84 [facility] (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 OF ORAL HYPOGLYC 03/13/2019 VAN GONZALEZ MD Ot Z91.19 PATIENT'S NONCOMPLIANCE W [facility] MED[facility] TR 03/13/2019 VAN GONZALEZ MD, Ot [...] ADULT 03/14/2019 VAN GONZALEZ MD, Ot Z79.84 [facility] (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 OF ORAL HYPOGLYC 03/14/2019 VAN GONZALEZ MD, Ot Z91.19 PATIENT'S NONCOMPLIANCE W [facility] MEDICAL TR 03/14/2019 VAN GONZALEZ MD, Ot [...] ADULT 03/14/2019 VAN GONZALEZ MD, Ot Z79.84 ONLINE SERVICES MANAGER (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 OF ORAL HYPOGLYC 03/14/2019 VAN GONZALEZ MD, Ot Z91.19 PATIENT'S NONCOMPLIANCE W [facility] MEDICAL TR 03/14/2019 VAN GONZALEZ MD, Ot [...] ADULT 03/15/2019 VAN GONZALEZ MD, Ot Z79.84 ONLINE SERVICES MANAGER (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 OF ORAL HYPOGLYC 03/15/2019 VAN GONZALEZ MD, Ot Z91.19 PATIENT'S NONCOMPLIANCE W [facility] MED[facility] TR 03/15/2019 VAN GONZALEZ MD, Ot [...] ADULT 03/16/2019 VAN GONZALEZ MD, Ot Z79.84 ONLINE SERVICES MANAGER (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 OF ORAL HYPOGLYC 03/16/2019 VAN GONZALEZ MD, Ot Z91.19 PATIENT'S NONCOMPLIANCE W [facility] MEDICAL TR 03/16/2019 VAN GONZALEZ MD, Ot [...] ADULT 03/16/2019 VAN GONZALEZ MD, Ot Z79.84 ONLINE SERVICES MANAGER (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 OF ORAL HYPOGLYC 03/16/2019 VAN GONZALEZ MD Ot Z91.19 PATIENT'S NONCOMPLIANCE W [facility] MEDICAL TR 03/16/2019 VAN GONZALEZ MD, Ot [...] ADULT 03/16/2019 VAN GONZALEZ MD, Ot Z79.84 [facility] (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 OF ORAL HYPOGLYC 03/16/2019 VAN GONZALEZ MD, Ot Z91.19 PATIENT'S NONCOMPLIANCE W [facility] MEDICAL TR 03/16/2019 VAN GONZALEZ MD, Ot [...] ADULT 03/17/2019 VAN GONZALEZ MD, Ot Z79.84 [facility] (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 OF ORAL HYPOGLYC 03/17/2019 VAN GONZALEZ MD, Ot Z91.19 PATIENT'S NONCOMPLIANCE W [facility] MED[facility] TR 03/17/2019 VAN GONZALEZ MD, Ot [...] ADULT 03/18/2019 VAN GONZALEZ MD, Ot Z79.84 ONLINE SERVICES MANAGER (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 OF ORAL HYPOGLYC 03/18/2019 VAN GONZALEZ MD, Ot Z91.19 PATIENT'S NONCOMPLIANCE W [facility] MED[facility] TR 03/18/2019 VAN GONZALEZ MD, Ot [...] ADULT 03/19/2019 VAN GONZALEZ MD, Ot Z79.84 [facility] (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 OF ORAL HYPOGLYC 03/19/2019 VAN GONZALEZ MD, Ot Z91.19 PATIENT'S NONCOMPLIANCE W [facility] MEDICAL TR 03/19/2019 VAN GONZALEZ MD, Ot [...] ADULT 03/20/2019 VAN GONZALEZ MD, Ot Z79.84 ONLINE SERVICES MANAGER (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 OF ORAL HYPOGLYC 03/20/2019 VAN GONZALEZ MD, Ot Z91.19 PATIENT'S NONCOMPLIANCE W [facility] MEDICAL TR 03/20/2019 VAN GONZALEZ MD, Ot [...] ADULT 03/20/2019 VAN GONZALEZ MD, Ot Z79.84 [facility] (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 OF ORAL HYPOGLYC 03/20/2019 VAN GONZALEZ MD, Ot Z91.19 PATIENT'S NONCOMPLIANCE W [facility] MEDICAL TR 03/20/2019 VAN GONZALEZ MD, Ot [...] MD, Ot I25.10 ATHSCL HEART DISEASE OF [place] CORONARY 03/20/2019 VAN GONZALEZ MD, Ot I27.20 PULMONARY HYPERTENSION, UNSPECIFIED 03/20/2019 VAN GONZALEZ MD, Ot I42 .9 CARDIOMYOPATHY, UNSPECIFIED 03/20/2019 VAN GONZALEZ MD, Ot I50.31 ACUTE DIASTOLIC (CONGESTIVE) HEART FAILU 03/20/2019 AVN GONZALEZ MD, Ot J30 .2 OTHER SEASONAL [...] ADULT 03/20/2019 VAN GONZALEZ MD, Ot Z79.84 [facility] (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 OF ORAL HYPOGLYC 03/20/2019 VAN GONZALEZ MD, Ot Z91.19 PATIENT'S NONCOMPLIANCE W [facility] MED[facility] TR 03/20/2019 VAN GONZALEZ MD, Ot [...] .2 OTHER SEASONAL ALLERGIC RHINITIS 03/20/2019 VAN GONZLAEZ MD, Ot J44 .1 CHRONIC OBSTRUCTIVE PULMONARY DISEASE W 03/20/2019 VAN GONZALEZ MD, Ot J96.21 ACUTE AND CHRONIC RESPIRATORY FAILURE [place] 03/20/2019 VAN GONZALEZ MD, Ot J96.22 ACUTE AND CHRONIC RESPIRATORY FAILURE [place] 03/20/2019 VAN GONZALEZ MD Ot R06.89 OTHER ABNORMALITIES OF BREATHING 03/20/2019 VAN GONZALEZ MD Ot Z68.37 BODY MASS INDEX (BMI) 37.0-37.9, ADULT 03/20/2019 VAN GONZALEZ MD Ot Z79.84 [facility] (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 OF ORAL HYPOGLYC 03/20/2019 VAN GONZALEZ MD Ot Z91.19 PATIENT'S NONCOMPLIANCE W [facility] MEDICAL TR 03/20/2019 VAN GONZALEZ MD, Ot [...] TYPE 2 DIABETES MELLITUS WITH HYPERGLYCE 07/20/2019 BZAZI DO, CLAIRE Ot E66.9 OBESITY, UNSPECIFIED 07/20/2019 [...] F32.9 MAJOR DEPRESSIVE DISORDER, SINGLE EPISOD 07/23/2019 ABZZI DO, CLAIRE Ot F41.9 ANXIETY DISORDER, UNSPECIFIED [...] 08/25/2019 AJ WETZEL MD Ot Z79. 51 [facility] (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 OF INHALED STERO 08/25/2019 AJ WETZEL MD Ot Z79. 84 [facility] (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 OF ORAL HYPOGLYC 08/25/2019 AJ [...] SHOCK 09/15/2019 BAZZI DO, CLAIRE Ot Z79.84 [facility] (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 OF ORAL HYPOGLYC 09/15/2019 BAZZI [...] SHOCK 09/15/2019 BAZZI DO, CLAIRE Ot Z79.84 ONLINE SERVICES MANAGER (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 OF ORAL HYPOGLYC 09/15/2019 [...] SHOCK 09/16/2019 BAZZI DO, CLAIRE Ot Z79.84 ONLINE SERVICES MANAGER (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 OF ORAL HYPOGLYC 09/16/2019 [...] SHOCK 09/17/2019 BAZZI DO, CLAIRE Ot Z79.84 ONLINE SERVICES MANAGER (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 OF ORAL HYPOGLYC 09/17/2019 [...] SHOCK 09/18/2019 BAZZI DO, CLAIRE Ot Z79.84 [facility] (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 OF ORAL HYPOGLYC 09/18/2019 BAZZI [...] SHOCK 09/18/2019 BAZZI DO, CLAIRE Ot Z79.84 ONLINE SERVICES MANAGER (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 OF ORAL HYPOGLYC 09/18/2019 [...] SHOCK 09/18/2019 BAZZI DO, CLAIRE Ot Z79.84 [facility] (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 OF ORAL HYPOGLYC 09/18/2019 BAZZI [...] SHOCK 09/18/2019 BAZZI DO, CLAIRE Ot Z79.84 ONLINE SERVICES MANAGER (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 OF ORAL HYPOGLYC 09/18/2019 BAZZI DO, CLAIRE Ot Z99.81 DEPENDENCE ON SUPPLEMENTAL OXYGEN 12/27/2019 JEFF DURBIN MD Ot B95.2 ENTEROCOCCUS THE CAUSE OF DISEASES CL 12/27/2019 JEFF DURBIN MD Ot B96.4 PROTEUS (MIRABILIS) (MORGANII) CAUSING D 12/27/2019 JEFF DURBIN MD Ot E03.9 HYPOTHYROIDISM, UNSPECIFIED 12/27/2019 JEFF DURBIN MD Ot E11.9 TYPE 2 DIABETES MELLITUS WITHOUT COMPLIC 12/27/2019 JEFF DURBIN MD Ot E66.2 MORBID (SEVERE) OBESITY WITH ALVEOLAR HY 12/27/2019 JEFF DURBIN MD Ot E78.00 PURE HYPERCHOLESTEROLEMIA, UNSPECIFIED 12/27/2019 JEFF DURBIN MD Ot F17.210 NICOTINE DEPENDENCE, CIGARETTES, UNCOMPL 12/27/2019 JEFF DURBIN MD Ot F32.9 MAJOR DEPRESSIVE DISORDER, SINGLE EPISOD 12/27/2019 JEFF DURBIN MD Ot F41.9 ANXIETY DISORDER, UNSPECIFIED 12/27/2019 JEFF DURBIN MD Ot I10 ESSENTIAL (PRIMARY) HYPERTENSION 12/27/2019 JEFF DURBIN MD Ot J43.9 EMPHYSEMA, UNSPECIFIED 12/27/2019 JEFF DURBIN MD, Ot J96.21 ACUTE AND CHRONIC RESPIRATORY FAILURE [place] 12/27/2019 JEFF DURBIN MD, Ot J96.22 ACUTE AND CHRONIC RESPIRATORY FAILURE [place] 12/27/2019 JEFF DURBIN MD, Ot N39.0 URINARY TRACT INFECTION, SITE NOT SPECIF 12/27/2019 JEFF DURBIN MD, Ot Z68.36 BODY MASS INDEX (BMI) 36.0-36.9, ADULT 12/27/2019 JEFF DURBIN MD, Ot Z79.84 ONLINE SERVICES MANAGER (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 OF ORAL HYPOGLYC 12/27/2019 JEFF DURBIN MD, Ot Z99.81 DEPENDENCE ON SUPPLEMENTAL OXYGEN Procedures Code Description [place] [address] ROUT INE VENIPUNCTURE 06/09/2012 40749 A1C (IN-HOUSE) 06/09/2012 77398 CMP 06/09/2012 19857 TSH 06/09/2012 86640 CBC 06/09/2012 13112 ROUT INE VENIPUNCTURE 10/06/2012 08094 A1C (IN-HOUSE) 10/06/2012 33262 CMP 10/06/2012 10441 TSH 10/06/2012 18581 ROUT INE VENIPUNCTURE 04/01/2013 31455 A1C (IN-HOUSE) 04/01/2013 47640 LIPI D PANEL 04/01/2013 70414 CMP 04/01/2013 3103138 GF R CALC (RESULT ONLY) 04/01/2013 81019 TSH 04/01/2013 00153 ROUT INE VENIPUNCTURE 10/01/2013 51741 CMP 10/01/2013 25905 LIPI D PANEL 10/01/2013 40752 TSH 10/01/2013 53342 A1C (IN-HOUSE) 10/01/2013 38824 MICR O ALBUMIN-IN HOUSE 10/01/2013 13677 ROUT INE VENIPUNCTURE 05/03/2014 70153 CMP 05/03/2014 24641 LIPI D PANEL 05/03/2014 45825 TSH 05/03/2014 04483 A1C (IN-HOUSE) 05/03/2014 2028F FOOT EXAM PERFORMED 05/03/2014 28851 OXIMETRY 07/26/2014 26870 XRAY CHEST 2 VIEW 07/28/2014 10935 OXIMETRY 07/28/2014 24926 OXIMETRY 07/30/2014 PULMONARY WESLEY ALMAGUER 07/30/2014 83130 TSH 11/05/2014 20731 ROUT INE VENIPUNCTURE 11/05/2014 06258 MICR O ALBUMIN-IN HOUSE 11/05/2014 83814 A1C (IN-HOUSE) 11/05/20143615236 GF R CALC (RESULT ONLY) 11/05/2014 83622 CMP 11/05/2014 [id number] IN SERTION OF ENDOTRACHEAL AIRWAY INTO TR 10/31/2018 [id number] RE SPIRATORY VENTILATION, LESS THAN 24 CO 10/31/2018 [id number] IN SERTION OF ENDOTRACHEAL AIRWAY INTO TR 03/09/2019 [id number] RE SPIRATORY VENTILATION, 24- 96 CONSECUTI 03/09/2019 [id number] RE SPIRATORY VENTILATION, GREATER THAN 96 03/09/2019 [id number] ME ASURE OF CARDIAC SAMPL PRESSURE, L H 03/11/2019 [id number] FL UOROSCOPY OF MULT COR ART USING L OSM 03/11/2019 [id number] FL UOROSCOPY OF LEFT HEART USING LOW OSMO 03/11/2019 [id number] IN SERTION OF ENDOTRACHEAL AIRWAY INTO TR 09/11/2019 [id number] RE SPIRATORY VENTILATION, 24- 96 CONSECUTI 09/11/2019 Results Test Result Range Thyroid Buena Profile - 06/08/16 16:25 TSH 3.060 uIU/mL [...] LDL Cholesterol Calc 114 mg/dL 0-99 Thyroid Buena Profile - 03/15/17 09:41 TSH 11.750 uIU/mL [...] PLUS NORMAL DEMARCO NRG Bacterial sputum culture [id number] [facility] Bacterial susceptibility panel - 8 21:00 [...] A AND B ANTIGENS BY IA [facility] Comprehensive metabolic panel - 09/22/18 16:35 [...] 140-400 MPV 10.4 fL 7.5-12.5 ABSOLUTE NEUTROPHILS 48815 cells/uL 1500 -7800 ABSOLUTE LYMPHOCYTES 1121 cells/uL [...] 13:[address] NRG Bacterial sputum culture [id number] NRG Dirithromycin susceptibility test by dis k [...] 03/09/19 09:12 MRSA SCREEN RESULT MRSA ISOLATED NR Capillary blood glucose measurement by g lucometer [...] by glucometer (mas s/volume) 167 mg/dL 70-110 [id number] - 06/26/19 14:18 Serum or plasma urea [...] ENTRY 3 PRELIM RAPID ID TESTING AT [facility] NRG Bacterial sputum culture SEE COMMEN NRG [...] culture - 09/11/19 23:00 Bacterial urine culture [id number] NRG COLONY COUNT 50,000 CFU/ML NRG FTX;REPORTABLE [...] susceptibility test by mi nimum inhibitory concentration 64 NRG Amoxicillin and [...] glucose measurement by g lucometer (mass/volume) - 02/23/20 17:29 Capillary blood glucose measurement by glucometer [...] protein measurement (mass/v olume) 2.98 mg/dL 0.00-0.50 Bacterial blood culture - 12/23/19 23:05 Bacterial blood culture NG NRG Arterial blood gas measurement - 0 23:10 [...] G Measurement of body temperature 36.6 NRG Bacterial blood culture - 12/23/19 23:10 Bacterial blood culture NG NRG Complete urinalysis [...] sediment by light bushra roscopy 10-25 NRG Bacterial urine culture - 12/23/19 23:22 Bacterial urine culture GRAM POS M NRG COLONY COUNT 80,000 CFU/ML NRG SUSCEPTIBILITY SUSCEPTIBILITY REPORTED 12/25 08:20 NRG Dirithromycin susceptibility test by dis k diffusion - 12/23/19 23:22 Vancomycin susceptibility test by minimum inhibitory c oncentration 2 NRG Levofloxacin susceptibility test by minimum inhibitory concentration <= NRG Ampicillin susceptibility test by minimum inhibitory c oncentration 1 NRG Nitrofurantoin susceptibility test by mi nimum inhibitory concentration <= NRG Linezolid susceptibility test by minimum inhibitory co ncentration <= NRG Daptomycin susc BUSHRA 2 NRG Dirithromycin susceptibility test by dis k diffusion - 12/23/19 23:22 Gentamicin susceptibility test by minimum inhibitory c oncentration <= NRG Trimethoprim/sulfamethoxazole susceptibi lity test by minimum inhibitoryconcentration S NRG Levofloxacin susceptibility test by minimum inhibitory concentration <= NRG Ampicillin susceptibility test by minimum inhibitory c oncentration > NRG Cefazolin susceptibility test by minimum inhibitory co ncentration > NRG Ceftriaxone susceptibility test by minimum inhibitory concentration > NRG Ciprofloxacin susceptibility test by minimum inhibitor y concentration <= NRG Meropenem susceptibility test by minimum inhibitory co ncentration <= NRG Nitrofurantoin susceptibility test by mi nimum inhibitory concentration R NRG Amoxicillin and clavulanate potassium susc BUSHRA <= NRG Urine drug screening test - 12/23/19 [...] TIVE Urine propoxyphene detection NEGATIVE N EGATIVE Methicillin resistant Staphylococcus aur eus (MRSA) screening culture - 12/24/19 03:00 MRSA SCREEN RESULT MRSA ISOLATED NRG Complete blood count (CBC) with automate d white blood cell (WBC) differential - 12/24/19 03:09 Blood leukocytes automated count (number/volume) 7.8 10*3/uL 4.3-11.0 Blood erythrocytes automated count (number/volume) 4.56 10*6/uL 4.35-5.85 Venous blood hemoglobin measurement (mass/volume) 13.1 g/dL 11.5-16.0 Blood hematocrit (volume fraction) 45 % 35-52 Automated erythrocyte mean corpuscular volume 98 [ foz_us] 80-99 Automated erythrocyte mean corpuscular h emoglobin (mass per erythrocyte) 29 pg 25-34 Automated erythrocyte mean corpuscular h emoglobin concentration measurement (mass/volume) 29 g/dL 32-36 Automated erythrocyte distribution width ratio 15. 0 % 10.0- 14.5 Automated blood platelet count (count/volume) 160 10*3/uL 130-400 Automated blood platelet mean volume measurement 9.2 [foz_us] 7.4-10.4 Automated blood neutrophils/100 leukocytes 94 [...] 0.0 10*3/uL 0.0-0.1 Comprehensive metabolic panel - 12/24/19 03:09 Serum or plasma sodium measurement (moles/volume) 139 mmol/L 135-145 Serum or plasma potassium measurement (moles/volume) 4.9 mmol/L 3.6-5.0 Serum or plasma chloride measurement (moles/volume) 93 mmol/L 98-107 Carbon dioxide 40 mmol/L 21-32 Serum or plasma anion gap determination (moles/volume) 6 mmol/L 5-14 Serum or plasma urea nitrogen measurement (mass/volume ) 9 mg/dL 7-18 Serum or plasma creatinine measurement (mass/volume) 0.79 mg/dL 0.60-1.30 Serum or plasma urea nitrogen/creatinine mass ratio 11 NRG Serum or plasma creatinine measurement w ith calculation of estimated glomerular filtration rate > NRG Serum or plasma glucose measurement (mass/volume) 254 mg/dL 70-105 Serum or plasma calcium measurement [...] or plasma phosphate measurement (m ass/volume) - 12/24/19 03:09 Serum or plasma phosphate measurement (mass/volume) 2.9 mg/dL 2.3-4.7 Magnesium - 12/24/19 03:09 Magnesium 2.2 mg/dL 1.6-2.4 Manual absolute plasma cell count - 11/08 03:09 Blood monocytes/100 leukocytes 3 % NRG Manual blood segmented neutrophils/100 leukocytes 85 % NRG Blood band neutrophils/100 leukocytes 4 % NRG Manual blood lymphocytes/100 leukocytes 7 % NRG Manual eosinophils/100 leukocytes in nose 1 % NRG Blood polychromasia detection by light microscopy SLIGHT NRG Arterial blood gas measurement - 0 04:30 Blood pCO2 86 mm[Hg] 35-45 Blood pO2 68 mm[Hg] 79-93 Arterial blood bicarbonate measurement (moles/volume) 43 mmol/L 23-27 Arterial blood base excess by calculation 15.6 mmo l/L -2.5-2.5 Arterial blood oxygen saturation measurement 96 % 94-100 * Inhaled oxygen flow rate 55% BIPAP NR G Arterial blood pH measurement with patient temperature correction 7.31 7.37-7.43 Arterial blood carbon dioxide, total measurement (mole s/volume) 45.1 mmol/L 21.0-31.0 Body site LEFT RADIUS NRG Assessment of wrist artery patency prior to arterial p uncture YES-POS NRG Setting of ventilation mode NO NR G Measurement of body temperature 36.6 NRG Arterial blood gas measurement - 0 08:00 Blood pCO2 77 mm[Hg] 35-45 Blood pO2 69 mm[Hg] 79-93 Arterial blood bicarbonate measurement (moles/volume) 41 mmol/L 23-27 Arterial blood base excess by calculation 14.1 mmo l/L -2.5-2.5 Arterial blood oxygen saturation measurement 94 % 94-100 * Inhaled oxygen flow rate 50% NRG Arterial blood pH measurement with patient temperature correction 7.34 7.37-7.43 Arterial blood carbon dioxide, total measurement (mole s/volume) 42.9 mmol/L 21.0-31.0 Body site RT RADIAL NRG Assessment of wrist artery patency prior to arterial p uncture YES-POS NRG Setting of ventilation mode YES NR G Measurement of body temperature 36.5 NRG Capillary blood glucose measurement by g lucometer (mass/volume) - 12/24/19 11:44 Capillary blood glucose measurement by glucometer (mas s/volume) 271 mg/dL 70-110 Capillary blood glucose measurement by g lucometer (mass/volume) - 12/24/19 17:55 Capillary blood glucose measurement by glucometer (mas s/volume) 194 mg/dL 70-110 Capillary blood glucose measurement by g lucometer (mass/volume) - 12/25/19 00:05 Capillary blood glucose measurement by glucometer (mas s/volume) 318 mg/dL 70-110 Complete blood count (CBC) with automate d white blood cell (WBC) differential - 12/25/19 03:05 Blood leukocytes automated count (number/volume) 8.2 10*3/uL 4.3-11.0 Blood erythrocytes automated count (number/volume) 4.21 10*6/uL 4.35-5.85 Venous blood hemoglobin measurement (mass/volume) [...] 9.5 [foz_us] 7.4-10.4 Automated blood neutrophils/100 leukocytes 90 % 42-75 Automated blood lymphocytes/100 leukocytes 8 % 12-44 Blood monocytes/100 leukocytes 3 % [...] 0.0-0.1 Whole blood basic metabolic panel - 12/08 03:05 Serum or plasma sodium measurement (moles/volume) 140 mmol/L 135-145 Serum or plasma potassium measurement (moles/volume) 4.6 mmol/L 3.6-5.0 Serum or plasma chloride measurement (moles/volume) 97 mmol/L 98-107 Carbon dioxide 37 mmol/L 21-32 Serum or plasma anion gap determination (moles/volume) 6 mmol/L 5-14 Serum or plasma urea nitrogen measurement (mass/volume ) 14 mg/dL 7-18 Serum or plasma creatinine measurement (mass/volume) 0.71 mg/dL 0.60-1.30 Serum or plasma urea nitrogen/creatinine mass ratio 20 NRG Serum or plasma creatinine measurement w ith calculation of estimated glomerular filtration rate > NRG Serum or plasma glucose measurement (mass/volume) 120 mg/dL 70-105 Serum or plasma calcium measurement (mass/volume) 9.9 mg/dL 8.5-10.1 Serum or plasma phosphate measurement (m ass/volume) - 12/25/19 03:05 Serum or plasma phosphate measurement (mass/volume) 2.4 mg/dL 2.3-4.7 Magnesium - 12/25/19 03:05 Magnesium 2.2 mg/dL 1.6-2.4 Arterial blood gas measurement - 0 03:36 Blood pCO2 65 mm[Hg] 35-45 Blood pO2 54 mm[Hg] 79-93 Arterial blood bicarbonate measurement (moles/volume) 39 mmol/L 23-27 Arterial blood base excess by calculation 13.6 mmo l/L -2.5-2.5 Arterial blood oxygen saturation measurement 89 % 94-100 * Inhaled oxygen flow rate 45% NRG Arterial blood pH measurement with patient temperature correction 7.40 7.37-7.43 Arterial blood carbon dioxide, total measurement (mole s/volume) 41.2 mmol/L 21.0-31.0 Body site RT RADIAL NRG Assessment of wrist artery patency prior to arterial p uncture YES-POS NRG Setting of ventilation mode NO NR G Measurement of body temperature 36.6 NRG Capillary blood glucose measurement by g lucometer (mass/volume) - 12/25/19 11:36 Capillary blood glucose measurement by glucometer (mas s/volume) 351 mg/dL 70-110 Capillary blood glucose measurement by g lucometer (mass/volume) - 12/25/19 17:46 Capillary blood glucose measurement by glucometer (mas s/volume) 320 mg/dL 70-110 Capillary blood glucose measurement by g lucometer (mass/volume) - 12/25/19 20:25 Capillary blood glucose measurement by glucometer (mas s/volume) 281 mg/dL 70-110 Complete blood count (CBC) with automate d white blood cell (WBC) differential - 12/26/19 03:04 Blood leukocytes automated count (number/volume) 7.4 10*3/uL 4.3-11.0 Blood erythrocytes automated count (number/volume) 4.34 10*6/uL 4.35-5.85 Venous blood hemoglobin measurement (mass/volume) 12.2 g/dL 11.5-16.0 Blood hematocrit (volume fraction) 41 % 35-52 Automated erythrocyte mean corpuscular volume 94 [ foz_us] 80-99 Automated erythrocyte mean corpuscular h emoglobin (mass per erythrocyte) 28 pg 25-34 Automated erythrocyte mean corpuscular h emoglobin concentration measurement (mass/volume) 30 g/dL 32-36 Automated erythrocyte distribution width ratio 14. 7 % 10.0- 14.5 Automated blood platelet count (count/volume) 163 10*3/uL 130-400 Automated blood platelet mean volume measurement 9.3 [foz_us] 7.4-10.4 Automated blood neutrophils/100 leukocytes 91 % 42-75 Automated blood lymphocytes/100 leukocytes 6 % 12-44 Blood monocytes/100 leukocytes 3 % [...] 0.0-0.1 Whole blood basic metabolic panel - 01/08 03:04 Serum or plasma sodium measurement (moles/volume) 140 mmol/L 135-145 Serum or plasma potassium measurement (moles/volume) 5.0 mmol/L 3.6-5.0 Serum or plasma chloride measurement (moles/volume) 98 mmol/L 98-107 Carbon dioxide 34 mmol/L 21-32 Serum or plasma anion gap determination (moles/volume) 8 mmol/L 5-14 Serum or plasma urea nitrogen measurement (mass/volume ) 24 mg/dL 7-18 Serum or plasma creatinine measurement (mass/volume) 0.91 mg/dL 0.60-1.30 Serum or plasma urea nitrogen/creatinine mass ratio 26 NRG Serum or plasma creatinine measurement w ith calculation of estimated glomerular filtration rate > NRG Serum or plasma glucose measurement (mass/volume) 317 mg/dL 70-105 Serum or plasma calcium measurement (mass/volume) 9.3 mg/dL 8.5-10.1 Serum or plasma phosphate measurement (m ass/volume) - 12/26/19 03:04 Serum or plasma phosphate measurement (mass/volume) 2.4 mg/dL 2.3-4.7 Magnesium - 12/26/19 03:04 Magnesium 2.0 mg/dL 1.6-2.4 Capillary blood glucose measurement by g lucometer (mass/volume) - 12/26/19 11:34 Capillary blood glucose measurement by glucometer (mas s/volume) 278 mg/dL 70-110 Capillary blood glucose measurement by g lucometer (mass/volume) - 12/26/19 15:51 Capillary blood glucose measurement by glucometer (mas s/volume) 340 mg/dL 70-110 Capillary blood glucose measurement by g lucometer (mass/volume) - 12/26/19 16:41 Capillary blood glucose measurement by glucometer (mas s/volume) 311 mg/dL 70-110 Capillary blood glucose measurement by g lucometer (mass/volume) - 12/26/19 20:34 Capillary blood glucose measurement by glucometer (mas s/volume) 255 mg/dL 70-110 Complete urinalysis with reflex to cultu re - 12/26/19 20:35 Urine color determination YELLOW NRG Urine clarity determination VERY CLOUDY NRG Urine pH measurement by test strip 8.5 5-9 Specific gravity of urine by test strip 1.010 1.016-1.022 Urine protein assay by test strip, [...] 1.0 Urine leukocyte esterase detection by dipstick 1+ NEGATIVE Automated urine sediment erythrocyte cou nt by microscopy (number/high power field) [HPF] NRG Automated urine sediment leukocyte count by microscopy (number/high power field) [HPF] NRG Bacteria detection in urine sediment by light microsco py LARGE NRG Squamous epithelial cells detection in u rine sediment by light microscopy NONE NRG Crystals detection in urine sediment by light microsco py PRESENT NRG Casts detection in urine sediment by light microscopy NONE NRG Mucus detection in urine sediment by light microscopy SMALL NRG Complete urinalysis with reflex to culture YES NRG Amorphous sediment detection in urine sediment by ligh t microscopy LARGE DORCAS PHOSPHATE NRG Triple phosphate crystals detection in u rine sediment by light microscopy FEW NRG Bacterial urine culture - 12/26/19 20:35 Bacterial urine culture [id number] NRG COLONY COUNT 10,000 CFU/ML NRG SUSCEPTIBILITY SUSCEPTIBILITY REPORTED 12/28 11:25 NRG RAPID ID PRELIM RAPID ID TEST VCP 12/26 10:03 NRG ID CONFIRMATION ID CONFIRMED 12/27 1530 N RG Dirithromycin susceptibility test by dis k diffusion - 12/26/19 20:35 Gentamicin susceptibility test by minimum inhibitory c oncentration <= NRG Trimethoprim/sulfamethoxazole susceptibi lity test by minimum inhibitoryconcentration S NRG Levofloxacin susceptibility test by minimum inhibitory concentration <= NRG Ampicillin susceptibility test by minimum inhibitory c oncentration > NRG Cefazolin susceptibility test by minimum inhibitory co ncentration > NRG Ceftriaxone susceptibility test by minimum inhibitory concentration > NRG Ciprofloxacin susceptibility test by minimum inhibitor y concentration <= NRG Meropenem susceptibility test by minimum inhibitory co ncentration <= NRG Nitrofurantoin susceptibility test by mi nimum inhibitory concentration R NRG Amoxicillin and clavulanate potassium susc BUSHRA = NRG Dirithromycin susceptibility test by dis k diffusion - 12/26/19 20:35 Gentamicin susceptibility test by minimum inhibitory c oncentration <= NRG Trimethoprim/sulfamethoxazole susceptibi lity test by minimum inhibitoryconcentration > NRG Levofloxacin susceptibility test by minimum inhibitory concentration <= NRG Ampicillin susceptibility test by minimum inhibitory c oncentration > NRG Cefazolin susceptibility test by minimum inhibitory co ncentration > NRG Ceftriaxone susceptibility test by minimum inhibitory concentration > NRG Ciprofloxacin susceptibility test by minimum inhibitor y concentration <= NRG Meropenem susceptibility test by minimum inhibitory co ncentration <= NRG Nitrofurantoin susceptibility test by mi nimum inhibitory concentration <= NRG Amoxicillin and clavulanate potassium susc BUSHRA R NRG Complete blood count (CBC) with automate d white blood cell (WBC) differential - 12/27/19 05:33 Blood leukocytes automated count (number/volume) 7.3 10*3/uL 4.3-11.0 Blood erythrocytes automated count (number/volume) 4.47 10*6/uL 4.35-5.85 Venous blood hemoglobin measurement (mass/volume) 13.0 g/dL 11.5-16.0 Blood hematocrit (volume fraction) 42 % 35-52 Automated erythrocyte mean corpuscular volume 94 [ foz_us] 80-99 Automated erythrocyte mean corpuscular h emoglobin (mass per erythrocyte) 29 pg 25-34 Automated erythrocyte mean corpuscular h emoglobin concentration measurement (mass/volume) 31 g/dL 32-36 Automated erythrocyte distribution width ratio 14. 6 % 10.0- 14.5 Automated blood platelet count (count/volume) 152 10*3/uL 130-400 Automated blood platelet mean volume measurement 9.4 [foz_us] 7.4-10.4 Automated blood neutrophils/100 leukocytes 88 % 42-75 Automated blood lymphocytes/100 leukocytes 9 % 12-44 Blood monocytes/100 leukocytes 3 % [...] 0.0-0.1 Whole blood basic metabolic panel - 02/07 05:33 Serum or plasma sodium measurement (moles/volume) 138 mmol/L 135-145 Serum or plasma potassium measurement (moles/volume) 5.1 mmol/L 3.6-5.0 Serum or plasma chloride measurement (moles/volume) 98 mmol/L 98-107 Carbon dioxide 32 mmol/L 21-32 [...] or plasma phosphate measurement (m ass/volume) - 12/27/19 05:33 Serum or plasma phosphate measurement (mass/volume) 2.7 mg/dL 2.3-4.7 Magnesium - 12/27/19 05:33 Magnesium 2.0 mg/dL 1.6-2.4 Capillary blood glucose measurement by g lucometer (mass/volume) - 12/27/19 10:33 Capillary blood glucose measurement by glucometer (mas s/volume) 229 mg/dL 70-110 Encounters ACCT No. Visit Date/Time Discharge Status Pt. Type Provider Facility Loc./Unit Complaint [id number] 03/18/2017 19:06:00 Document Registration [id number] 06/09/2016 13:05:00 Document Registration [id number] 11/05/2014 13:47:00 11/05/2014 23:59: 59 CLS Outpatient BLAIR DOVÍCTOR [id number] 08/30/2014 12:04:00 08/30/2014 23:59: 59 CLS Outpatient BLAIR DOVÍCTOR [id number] 07/30/2014 13:48:00 07/30/2014 23:59: 59 CLS Outpatient BLAIR DOVÍCTOR [id number] 07/28/2014 13:42:00 07/28/2014 23:59: 59 CLS Outpatient BLAIR DOVÍCTOR [id number] 07/27/2014 17:00:00 07/27/2014 23:59: 59 CLS Outpatient BLAIR DOVÍCTOR [id number] 07/26/2014 13:37:00 07/26/2014 23:59: 59 CLS Outpatient JOEL FALCON APRN [id number] 05/28/2014 00:00:00 05/28/2014 23:59: 59 CLS Outpatient BLAIR DOVÍCTOR [id number] 05/03/2014 11:11:00 05/03/2014 23:59: 59 CLS Outpatient BLAIR DOVÍCTOR [id number] 05/03/2014 11:11:00 05/03/2014 23:59: 59 CLS Outpatient BLAIR DOVÍCTOR [id number] 04/27/2014 00:00:00 04/27/2014 23:59: 59 CLS Outpatient BLAIR DOVÍCTOR [id number] 10/01/2013 09:12:00 10/01/2013 23:59: 59 CLS Outpatient VÍCTOR BLAIR DO [id number] 10/01/2013 09:12:00 10/01/2013 23:59: 59 CLS Outpatient VÍCTOR BLAIR DO [id number] 04/01/2013 10:06:00 04/01/2013 23:59: 59 CLS Outpatient VÍCTOR BLAIR DO [id number] 04/01/2013 10:06:00 04/01/2013 23:59: 59 CLS Outpatient VÍCTOR BLAIR DO [id number] 10/06/2012 16:10:00 10/06/2012 23:59: 59 CLS Outpatient [id number] 2012 14:58:00 2012 23:59: 59 CLS Outpatient JOEL FALCON APRN [id number] 06/09/2012 16:46:00 06/09/2012 23:59: 59 CLS Outpatient VÍCTOR BLAIR DO Gabrielle [id number] 02/07/2012 14:20:00 02/07/2012 23:59:5 9 CLS Outpatient VÍCTOR BLAIR DO [id number] 01/08/2013 13:43:00 Document Registration [id number] 10/06/2012 16:10:00 Document Registration [id number] 12/24/2019 01:15:00 14:26:00 DIS Inpatient GIFTY LOONEY, JEFF Romero [facility] 4TH COPD EXACERBATI ON SOMNOLENCE [id number] 09/12/2019 00:15:00 020 12:28:00 DIS Inpatient CLAIRE BAZZI DO, V [facility] 4TH ACUTE RESPIRATORY FAILU RE,HYPOXIA HYPERCAPNIA, [id number] 08/22/2019 14:33:00 020 16:45:00 DIS Outpatient AJ WETZEL MD [facility] ER FACIAL SWELLING [id number] 08/21/2019 23:14:00 020 00:01:00 DIS Outpatient DEWAYNE PETER DO [facility] ER LEFT SIDE JAW PAIN [id number] 08/10/2019 08:28:00 23:59:59 CLS Preadmit BERTRAM DOWNING APRN [facility] RAD DYSPNEA [id number] 07/17/2019 20:50:00 020 12:45:00 DIS Inpatient BAZZI CLAIRE NAIR V [facility] 4TH PNEUMONIA,COPD,TYPE 2 D M [id number] 06/26/2019 14:05:00 23:59:59 CLS Outpatient BERTRAM DOWNING APRN [facility] RAD ABN FINDING OF LUNG FIELD [id number] 03/09/2019 00:40:00 13:10:00 DIS Outpatient LISA LOONEY, VAN Mckeon [facility] 4TH ACUTE ON CHRONIC RESPIR ATORY FAILURE; PNEUMONIA, [id number] 01/15/2019 14:29:00 23:59:59 CLS Outpatient BERTRAM DOWNING APRN [facility] RAD OTHER PNEUMONIA [id number] 11/27/2018 07:17:00 23:59:59 CLS Preadmit BERTRAM DOWNING APRN [facility] RT COPD,JORGE L [id number] 10/30/2018 22:24:00 17:39:00 DIS Inpatient VÍCTOR BLAIR DO, V [facility] ICU COPD EXACERBATION WITH HYPOXIA [id number] 09/22/2018 16:32:00 019 19:52:00 DIS Emergency DAMARI LOONEY, AJ Guadarrama [facility] ER SOA [id number] 11/25/2017 18:43:00 018 12:50:00 DIS Inpatient SHEEBA LOONEY, NORMAN Moreno [facility] 4TH COPD EXACERBATION,RESPI RATORY DISTRESS [id number] 01/07/2013 20:31:00 013 21:45:00 DIS Emergency DEWAYNE PETER DO a [facility] ER SKIN IRRITATION [id number] 01/29/2020 23:30:[address] Emergency RYE CAMPBELL MD [facility] ER SOB [id number] 10/01/2014 14:22:00 Document Registration [id number] 08/15/2010 15:49:00 Document Registration [id number] 07/09/2010 16:25:00 Document Registration [id number] 08/18/2019 17:40:00 08/18/2019 23:59:5 9 [facility] Outpatient EASTON LOONEY, YULIYA FAY [facility] [id number] 10/08/2018 11:40:00 Document Registration [id number] 06/11/2018 14:00:00 Document Registration [id number] 03/21/2018 15:00:00 Document Registration [id number] 05/28/2017 16:20:00 Document Registration [id number] 03/15/2017 09:20:00 Document Registration
--- NOTE | 2020-01-29 23:50 | NUR ---
COVID-19 SWAB COLLECTED AND SENT TO LAB WITH [facility] PAPERWORK. PAPERWORK GIVEN TO MIGUEL MENDOZACOMPACTOR DRIVER.
[2020-01-29 23:52] VITALS: BP 105/80
--- NOTE | 2020-01-29 23:52 | NUR ---
BIPAP PLACED PER RT AT 15/8, RATE 10.
[2020-01-30] VITALS (22 sets, daily range): BP systolic 105–143; BP diastolic 63–101
[2020-01-30] MEDS ORDERED: methylPREDNISolone 125 MG (Solu-MEDROL) VIAL IVP ONE
[2020-01-30 00:19] LABS: BASOPHILS % (AUTO) 0 % (0-10); EOSINOPHILS # (AUTO) 0.1 10^3/uL (0.0-0.3); EOSINOPHILS % (AUTO) 1 % (0-10); HEMATOCRIT 42 % (35-52); HEMOGLOBIN 12.8 G/DL (11.5-16.0); LYMPHOCYTES # (AUTO) 1.2 X 10^3 (1.0-4.0); LYMPHOCYTES % (AUTO) 13 % (12-44); MEAN CORPUSCULAR HEMOGLOBIN 29 PG (25-34); MEAN CORPUSCULAR HGB CONC 30 G/DL (32-36); MEAN CORPUSCULAR VOLUME 96 FL (80-99); MEAN PLATELET VOLUME 9.9 FL (7.4-10.4); MONOCYTES # (AUTO) 0.4 X 10^3 (0.0-1.0); MONOCYTES % (AUTO) 4 % (0-12); NEUTROPHILS # (AUTO) 7.1 X 10^3 (1.8-7.8); NEUTROPHILS % (AUTO) 81 % (42-75); PLATELET COUNT 224 10^3/uL (130-400); RED CELL DISTRIBUTION WIDTH 16.3 % (10.0-14.5); WHITE BLOOD COUNT 8.8 10^3/uL (4.3-11.0)
[2020-01-30 00:28] LABS: ALBUMIN 3.4 GM/DL (3.2-4.5)
[2020-01-30 00:29] LABS: POTASSIUM 4.3 MMOL/L (3.6-5.0)
[2020-01-30 00:30] LABS: CALCIUM 9.7 MG/DL (8.5-10.1)
[2020-01-30 00:31] LABS: INR 0.9 (0.8-1.4); PROTHROMBIN TIME PATIENT 12.6 SEC (12.2-14.7); TOTAL PROTEIN 7.2 GM/DL (6.4-8.2)
[2020-01-30 00:33] LABS: BILIRUBIN,TOTAL 0.4 MG/DL (0.1-1.0)
[2020-01-30 00:35] LABS: CREATININE SERUM 1.03 MG/DL (0.60-1.30)
[2020-01-30 00:36] LABS: ABG BASE EXCESS 17.2 MMOL/L (-2.5-2.5); ABG OXYGEN SATURATION 96 % (94-100); ABG PH 7.36 (7.37-7.43); ABG PO2 71 MMHG (79-93); ABG TCO2 46.3 MMOL/L (21.0-31.0)
[2020-01-30 00:38] LABS: ABG PCO2 78 MMHG (35-45)
[2020-01-30 00:39] LABS: ALLENS TEST YES-POS; INSPIRED O2 40%; PATIENT TEMP 96.5; VENTILATOR NO
[2020-01-30 00:56] LABS: BILIRUBIN,URINE NEGATIVE (NEGATIVE); CLARITY,URINE CLOUDY; COLOR,URINE YELLOW; GLUCOSE, URINE (UA) NEGATIVE (NEGATIVE); KETONES,URINE NEGATIVE (NEGATIVE); LEUKOCYTE ESTERASE ,URINE NEGATIVE (NEGATIVE); NITRITE,URINE NEGATIVE (NEGATIVE); PROTEIN,URINE 1+ (NEGATIVE)
--- NOTE | 2020-01-30 00:57 | NUR ---
BIPAP RATE INCREASED TO [address] CAMPBELL[address]
[2020-01-30 01:19] LABS: BACTERIA,URINE TRACE /HPF
[2020-01-30] MEDS ORDERED: PIPERACILLIN SODIUM/TAZOBACTAM 4.5 GM in NS (IVPB) 100 ML IV ONE (01:30)
[2020-01-30 01:41] LABS: ABG BASE EXCESS 19.6 MMOL/L (-2.5-2.5); ABG OXYGEN SATURATION 99 % (94-100); ABG PCO2 60 MMHG (35-45); ABG PH 7.48 (7.37-7.43); ABG PO2 101 MMHG (79-93); ABG TCO2 46.9 MMOL/L (21.0-31.0)
[2020-01-30 01:43] LABS: ALLENS TEST YES-POS; INSPIRED O2 40%; PATIENT TEMP 96.6; VENTILATOR NO
[2020-01-30] MEDS ORDERED: RX-ALBUTEROL INHALER 8 GM HFA (VENTOLIN) IH ONE (01:46)
--- NOTE | 2020-01-30 01:56 | ED Respiratory ---
General Chief Complaint: Respiratory Problems Stated Complaint: SOB Nursing Triage Note: TO ED [facility]IA [facility] TO ROOM 10 UNDER COVID-19 PUI PRECAUTIONS R/T COUGH, SOA. HX COPD, O2 DEPENDENT AT 4L, CONTINUED TOBACCOISM. Source: patient, EMS, old records Exam Limitations: no limitations History of Present Illness Date Seen by Provider: Jan 30, 2020 Time Seen by Provider: 23:30 Initial Comments This 54-year-old woman with severe COPD presents to the emergency room in respiratory distress. She normally wears oxygen at 5 L/m nasal cannula. When EMS arrived at her home oxygen saturation was 80 percent on nasal cannula. DuoNeb treatment was administered which improved her oxygen saturation to around 90 percent. Patient continues to smoke despite her severe COPD. She denies any recent fever or increasing cough. She is not in pain. She requests full CODE STATUS. Allergies and Home Medications Allergies Coded Allergies: Red Known Allergies (Unverified Allergy, Mild, 05/01/09) Home Medications Acetaminophen 500 Mg Tablet, 1,500 MG PO Q8H PRN for PAIN-MILD (1-4), (Reported) Albuterol Sulfate 1 Puff Puff, 2 PUFF INH Q6H PRN for SHORTNESS OF BREATH, (Reported) Albuterol Sulfate 2.5 Mg/3 Ml Vial.neb, 3 ML NEB Q4-6 H PRN for SHORTNESS OF BREATH, (Reported) Aspirin 81 Mg Tab.chew, 81 MG PO DAILY, (Reported) Atorvastatin Calcium 10 Mg Tablet, 10 MG PO DAILY, (Reported) Famotidine 10 Mg Tablet, 20 MG PO BID, (Reported) Fluticasone Propion/Salmeterol 1 Each Blst.w.dev, 1 PUFF INH BID, (Reported) Fluticasone Propionate 16 Gm [place].susp, 2 SPRAY NS DAILY PRN for CONGESTION, (Reported) Furosemide 40 Mg Tablet, 40 MG PO DAILY, (Reported) Glipizide 5 Mg Tablet, 10 MG PO DAILY, (Reported) TAKES 2 (5MG) TABS Glipizide 5 Mg Tablet, 5 MG PO HS, (Reported) Levofloxacin 500 Mg Tablet, 500 MG PO DAILY Prescribed by: JEFF DURBIN on 12/27/19 1212 Levothyroxine Sodium 175 Mcg Tablet, 175 MCG PO DAILY, (Reported) Loratadine 10 Mg Tablet, 10 MG PO DAILY PRN for AALLERGY SYMPTOMS, (Reported) Metformin HCl 500 Mg Tablet, 500 MG PO BID, (Reported) Metoprolol Succinate 50 Mg Cap.spr.24, 50 MG PO DAILY, (Reported) Montelukast Sodium 10 Mg Tablet, 10 MG PO HS, (Reported) Rattan-3/Dha/Epa/Fish Oil 1 Each Capsule, 2,000 MG PO DAILY, (Reported) Paroxetine HCl 40 Mg Tablet, 40 MG PO 1500, (Reported) Potassium Chloride 10 Meq Tab.er.prt, 10 MEQ PO DAILY, (Reported) Prednisone 10 Mg Tab.ds.pk, 10 MG PO DAILY Take 6 tabs(60mg)daily,decrease by 1 tab(10mg)every other day. Prescribed by: JEFF DURBIN on 12/27/19 1212 Tiotropium [place] 1 Inh Aerp, 1 CAP INH 1300 PRN for SHORTNESS OF BREATH, (Reported) Patient Home Medication List Home Medication List Reviewed: Yes Review of Systems Review of Systems Constitutional: no symptoms reported EENTM: no symptoms reported Respiratory: see HPI Cardiovascular: no symptoms reported Gastrointestinal: no symptoms reported Genitourinary: no symptoms reported : No Musculoskeletal: no symptoms reported Skin: no symptoms reported Psychiatric/Neurological: No Symptoms Reported Hematologic/Lymphatic: No Symptoms Reported Immunological/Allergic: no symptoms reported Past Qlxemzl-Qpfbbz-Rzkavt Hx Past Med/Social Hx: Reviewed Nursing Past Med/Soc Hx Patient Social History Alcohol Use: Denies Use Recreational Drug Use: No Smoking Status: Current Everyday Smoker Type Used: Cigarettes 2nd Hand Smoke Exposure: Yes Recent Foreign Travel: No Contact w/Someone Who Travel: No Recent Infectious Disease Expo: No Recent Hopitalizations: Yes Physical Abuse: No Sexual Abuse: No Mistreated: No Fear: No Immunizations Up To Date Tetanus Booster (TDap): Unknown PED Vaccines UTD: No Date of Pneumonia Vaccine: Aug 22, 2018 Date of Influenza Vaccine: Jun 12, 2019 Seasonal Allergies Seasonal Allergies: Yes Past Medical History Surgeries: Yes Gallbladder Respiratory: Yes (O2 DEPENDENT AT 4L/NC) Pneumonia, COPD Currently Using CPAP: No Currently Using BIPAP: No Cardiac: Yes High Cholesterol, Hypertension Neurological: No 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 Sexually Transmitted Disease: No HIV/AIDS: No Genitourinary: No Gastrointestinal: No Musculoskeletal: No Endocrine: Yes Hypothyroidsim, Diabetes, Non-Insulin dep HEENT: No Loss of Vision: Denies Hearing Impairment: Denies Cancer: No Psychosocial: Yes Anxiety, Depression Integumentary: No Blood Disorders: No Adverse Reaction/Blood Tranf: No Family Medical History Reviewed Nursing Family Hx Cardiovascular disease 19 MOTHER, Onset:Unknown Diabetes mellitus 19 MOTHER, Onset:Unknown Diabetes Physical Exam Vital Signs - First Documented Capillary Refill : Less Than 3 Seconds Height: 5'6.00" Weight: 212lbs. 1.0oz. 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, no motor/sensory deficits, alert, normal mood/affect, oriented x 3 Skin: normal color, warm/dry Focused Exam Lactate Level 01/29/20 23:45: Lactic Acid Level 1.64 Lactic Acid Level Laboratory Tests Test 01/29/20 23:45 Lactic Acid Level 1.64 MMOL/L (0.50-2.00) Procedures/Interventions Date of ETT Placement: Sep 11, 2019 Time of ETT Placement: 2300 Progress/Results/Core Measures Suspected Sepsis Recent Fever Within 48 Hours: No Infection Criteria Present: Suspected New Infection New/Unexplained Altered Menta: No Sepsis Screen: Possible Sepsis Risk SIRS Temperature: Pulse: 92 Respiratory Rate: 21 Laboratory Tests 01/29/20 23:45: White Blood Count 8.8 Blood Pressure 105 /80 Mean: 88 01/29/20 23:45: Lactic Acid Level 1.64 Laboratory Tests 01/29/20 23:45: Creatinine 1.03, INR Comment 0.9, Platelet Count 224, Total Bilirubin 0.4 Results/Orders Lab Results Laboratory Tests Test 01/29/20 23:45 01/29/20 23:50 01/30/20 00:26 01/30/20 00:30 Range/Units White Blood Count 8.8 4.3-11.0 10^3/uL Red Blood Count 4.41 4.35-5.85 10^6/uL Hemoglobin 12.8 11.5-16.0 G/DL Hematocrit 42 35-52 % Mean Corpuscular Volume 96 80-99 FL Mean Corpuscular Hemoglobin 29 25-34 PG Mean Corpuscular Hemoglobin Concent 30 L 32-36 G/DL Red Cell Distribution Width 16.3 H 10.0-14.5 % Platelet Count 224 130-400 10^3/uL Mean Platelet Volume 9.9 7.4-10.4 FL Neutrophils (%) (Auto) 81 H 42-75 % Lymphocytes (%) (Auto) 13 12-44 % Monocytes (%) (Auto) 4 0-12 % Eosinophils (%) (Auto) 1 0-10 % Basophils (%) (Auto) 0 0-10 % Neutrophils # (Auto) 7.1 1.8-7.8 X 10^3 Lymphocytes # (Auto) 1.2 1.0-4.0 X 10^3 Monocytes # (Auto) 0.4 0.0-1.0 X 10^3 Eosinophils # (Auto) 0.1 0.0-0.3 10^3/uL Basophils # (Auto) 0.0 0.0-0.1 10^3/uL Prothrombin Time 12.6 12.2-14.7 SEC INR Comment 0.9 0.8-1.4 Activated Partial Thromboplast Time 26 24-35 SEC Sodium Level 139 135-145 MMOL/L Potassium Level 4.3 3.6-5.0 MMOL/L Chloride Level 88 L 98-107 MMOL/L Carbon Dioxide Level 39 H 21-32 MMOL/L Anion Gap 12 5-14 MMOL/L Blood Urea Nitrogen 14 7-18 MG/DL Creatinine 1.03 0.60-1.30 MG/DL Estimat Glomerular Filtration Rate 56 BUN/Creatinine Ratio 14 Glucose Level 346 H 70-105 MG/DL Lactic Acid Level 1.64 0.50-2.00 MMOL/L Calcium Level 9.7 8.5-10.1 MG/DL Corrected Calcium 10.2 H 8.5-10.1 MG/DL Total Bilirubin 0.4 0.1-1.0 MG/DL Aspartate Amino Transf (AST/SGOT) 13 5-34 U/L Alanine Aminotransferase (ALT/SGPT) 9 0-55 U/L Alkaline Phosphatase 126 40-136 U/L C-Reactive Protein High Sensitivity 9.92 H 0.00-0.50 MG/DL B-Type Natriuretic Peptide 59.1 <100.0 PG/ML Total Protein 7.2 6.4-8.2 GM/DL Albumin 3.4 3.2-4.5 GM/DL Procalcitonin 0.12 H <0.10 NG/ML Blood Gas Puncture Site LEFT RADIAL Blood Gas Patient Temperature 96.5 Arterial Blood pH 7.36 L 7.37-7.43 Arterial Blood Partial Pressure CO2 78 *H 35-45 MMHG Arterial Blood Partial Pressure O2 71 L 79-93 MMHG Arterial Blood HCO3 44 *H 23-27 MMOL/L Arterial Blood Total CO2 46.3 H 21.0-31.0 MMOL/L Arterial Blood Oxygen Saturation 96 94-100 % Arterial Blood Base Excess 17.2 H -2.5-2.5 MMOL/L Da Test YES-POS Blood Gas Ventilator Setting NO Blood Gas Inspired Oxygen 40% Urine Color YELLOW Urine Clarity CLOUDY Urine pH 6.0 5-9 Urine Specific Kemp 1.020 1.016-1.022 Urine Protein 1+ H NEGATIVE Urine Glucose (UA) NEGATIVE NEGATIVE Urine Ketones NEGATIVE NEGATIVE Urine Nitrite NEGATIVE NEGATIVE Urine Bilirubin NEGATIVE NEGATIVE Urine Urobilinogen 2.0 < = 1.0 MG/DL Urine Leukocyte Esterase NEGATIVE NEGATIVE Urine RBC (Auto) NEGATIVE NEGATIVE Urine RBC NONE /HPF Urine WBC NONE /HPF Urine Squamous Epithelial Cells 10-25 H /HPF Urine Crystals NONE /LPF Urine Bacteria TRACE /HPF Urine Casts NONE /LPF Urine Mucus SMALL H /LPF Urine Culture Indicated CULTURE PENDING Test 01/30/20 01:29 Range/Units Blood Gas Puncture Site LEFT RADIAL Blood Gas Patient Temperature 96.6 Arterial Blood pH 7.48 H 7.37-7.43 Arterial Blood Partial Pressure CO2 60 H 35-45 MMHG Arterial Blood Partial Pressure O2 101 H 79-93 MMHG Arterial Blood HCO3 45 *H 23-27 MMOL/L Arterial Blood Total CO2 46.9 H 21.0-31.0 MMOL/L Arterial Blood Oxygen Saturation 99 94-100 % Arterial Blood Base Excess 19.6 H -2.5-2.5 MMOL/L Da Test YES-POS Blood Gas Ventilator Setting NO Blood Gas Inspired Oxygen 40% My Orders Orders - REY CAMPBELL MD Cbc With Automated Diff (01/29/20 23:43) Comprehensive Metabolic Panel (01/29/20 23:43) Blood Culture (01/29/20 23:43) Sputum Culture (01/29/20 23:43) Urinalysis (01/29/20:43) Urine Culture (01/29/20:43) Protime With Inr (01/29/20 23:43) Partial Thromboplastin Time (01/29/20 23:43) Ed Iv/Invasive Line Start (01/29/20 23:43) Ed Iv/Invasive Line Start (01/29/20 23:43) Vital Signs Adult Sepsis Patie Q15M (01/29/20 23:43) O2 (01/29/20 23:43) Remove Rings In Anticipation O (01/29/20:43) Lactic Acid Analyzer (01/29/20:43) BNP (01/29/20:43) Hs C Reactive Protein (01/29/20 23:43) Coronavirus Sars-Cov-2 So 2018 (01/29/20 23:43) Methylprednisolone Sod Succ (Solu-Medrol (01/30/20 00:00) Chest 1 View, Ap/Pa Only (01/30/20 23:43) Arterial Blood Gas (01/30/20 00:29) Arterial Blood Gas (01/30/20 01:01) Enriquez Cath (01/30/20 01:13) Piperacillin Sodium/Tazobactam (Zosyn Vi (01/30/20 01:30) Procalcitonin (Pct) (01/30/20 01:17) Rx-Albuterol Inhaler (Rx-Ventolin Hfa In (01/30/20 01:46) Medications Given in ED Current Medications Medications Dose Ordered Sig/Jeana Route Start Time Stop Time Status Last Admin Dose Admin Methylprednisolone Sodium Succinate 125 mg ONCE ONCE IVP 01/30/20 00:00 01/30/20 00:01 DC 01/30/20 00:00 125 MG Piperacillin Sod/ Tazobactam Sod 4.5 gm/Sodium Chloride 100 ml @ 200 mls/hr ONCE ONCE IV 01/30/20 01:30 01/30/20 02:00 DC 01/30/20 01:51 200 MLS/HR Vital Signs/I&O 01/29/20 01/29/20 01/29/20 01/30/20 23:28 23:28 23:52 00:55 Temp 35.9 Pulse 91 91 92 Resp 26 22 21 B/P (MAP) 105/80 (88) Pulse Ox 92 96 96 O2 Flow Rate 15.00 15.00 40.00 40.00 Capillary Refill : Less Than 3 Seconds Blood Pressure Mean: 88 Progress Note #1: Time: 01:30 Progress Note Patient is moving very little air. DuoNeb treatment was administered by EMS but likely not inhaled well due to poor air movement. Patient was started on BiPAP therapy which improved her breathing fairly well. ABG was checked after 30 minutes of BiPAP. Settings were then adjusted and ABG was checked again. There is significant improvement in her hypercarbia. She was started on Zosyn as her CRP was mildly elevated and there was some blunting of the costophrenic angles on the chest x-ray. Case was discussed with Dr. Lemus who agrees with admission. Because of her current status she will be admitted to the ICU. Progress Note #2: Time: 05:20 Progress Note Patient remained stable on BiPAP. ABG improved after BiPAP settings adjusted. Diagnostic Imaging Diagonstic Imaging: Xray Plain Films/CT/US/NM/MRI: chest Comments X-ray viewed by me. Report not yet available. Appearance is similar to prior with possibly some blunting of the costophrenic angles. Departure Communication (Admissions) Time/Spoke to Admitting Phy: 23:50 Dr. Lemus Impression Primary Impression: Acute on chronic respiratory failure with hypoxia and hypercapnia Additional Impression: COPD with exacerbation Disposition: ADMITTED INPATIENT Condition: Improved Admissions Decision to Admit Reason: Admit from ER (General) Decision to Admit/Date: Jan 30, 2020 Time/Decision to Admit Time: 23:30 Departure-Patient Inst. Referrals: [facility] (PCP/Family) Primary Care Physician REY CAMPBELL MD Jan 30, 2020 01:56
--- NOTE | 2020-01-30 02:52 | NUR ---
SPOKE WITH DAUGHTER, MINE, AND UPDATED ON PT CONDITION AND PENDING ADMIT TO ICU. 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
--- OUTSIDE RECORDS SUMMARY | 2020-01-30 03:31 | XMS REPORT | Continuity of Care Document ---
Demographics Preferred Language Unknown Marital Status Unknown [employer] Affiliation Unknown Race Unknown Ethnic Group Unknown [...] VÍCTOR K 401.1 ESSENTIAL HYPERTENSION BENIGN 08/26/2008 LBAIR DO, VÍCTOR K 599.0 Urinary Tract Infection 08/26/2008 BLAIR DO, VÍCTOR K 401.1 ESSENTIAL HYPERTENSION BENIGN 08/26/2008 BLAIR DO, VÍCOTR K 599.0 Urinary Tract Infection 08/26/2008 BLAIR [...] DO, VÍCTOR K 786.2 Cough 04/18/2010 TERRIE RADIATION MONITOR JOEL R 244.9 HYPOTHYROIDISM 04/18/2010 FALCON RADIATION MONITOR, JOEL R 296.90 MOOD DISORDER 04/18/2010 TERRIE RADIATION MONITOR, JOEL R 465.9 Upper Respiratory Infection 04/18/2010 [...] Hypo potassemia 07/26/2010 496 COPD 07/26/2010 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 07/26/2010 790.4 Abno rmal Liver Function Test 07/26/2010 276.8 Hypo potassemia 07/26/2010 496 COPD 07/26/2010 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 07/26/2010 790.4 Abno rmal Liver Function Test 07/26/2010 276.8 Hypo potassemia 07/26/2010 496 COPD 07/26/2010 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 07/26/2010 790.4 Abno rmal [...] 790.4 Abnormal Liver Function Test 07/26/2010 FALCON RADIATION MONITOR, JOEL R 276.8 Hypopotassemia 07/26/2010 FALCON RADIATION MONITOR, JOEL R 496 COPD 07/26/2010 FALCON RADIATION MONITOR, JOEL R 585.9 CHRONIC RENAL FAILURE 07/26/2010 FALCON RADIATION MONITOR, JOEL R 790.4 Abnormal Liver Function Test [...] DO, VÍCTOR K 272.4 HYPERLIPIDEMIA 07/06/2011 BEVERLY FALCNO APRNRICIA R 250.02 DIABETES MELLITUS TYPE 2 [...] EPISODIC MOOD DISORDER 11/25/2017 Ot 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 51 HALF-WAY (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 OF INHALED STERO 09/22/2018 AJ WETZEL MD Ot Z79. 52 RADIOLOGY RECEPTIONIST (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 OF SYSTEMIC STER 09/22/2018 AJ WETZEL MD Ot Z79. 84 RADIOLOGY RECEPTIONIST (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 OF ORAL HYPOGLYC 09/24/2018 AJ [...] 09/24/2018 AJ WETZEL MD Ot Z79. 51 RADIOLOGY RECEPTIONIST (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 OF INHALED STERO 09/24/2018 AJ WETZEL MD Ot Z79. 52 RADIOLOGY RECEPTIONIST (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 OF SYSTEMIC STER 09/24/2018 AJ WETZEL MD Ot Z79. 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 ON SUPPLEMENTAL OXYGEN 01/15/2019 Ot 278.00 OBE SITY, NOS 01/15/2019 Ot 296.90 UNS PECIFIED EPISODIC MOOD DISORDER 01/15/2019 Ot 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 01/15/2019 Ot 496 CHR AI [...] OTHER SPECIFIED PART 01/21/2019 SALINA, BERTRAM E RADIATION MONITOR Ot E66.9 OBESITY, UNSPECIFIED 01/21/2019 SALINA, BERTRAM E RADIATION MONITOR Ot F17.200 NICOTINE DEPENDENCE, UNSPECIFIED, UNCOMP 01/21/2019 SALINA, BERTRAM E RADIATION MONITOR Ot F39 UNSPECIFIED MOOD [AFFECTIVE] DISORDER 01/21/2019 SALINA, BERTRAM E RADIATION MONITOR Ot G47.10 HYPERSOMNIA, UNSPECIFIED 01/21/2019 SALINA, BERTRAM E RADIATION MONITOR Ot G47.33 OBSTRUCTIVE SLEEP APNEA (ADULT) (PEDIATR 01/21/2019 SALINA, BERTRAM E RADIATION MONITOR Ot J18.8 OTHER PNEUMONIA, UNSPECIFIED ORGANISM 01/21/2019 SALINACARIDADBERTRAM E RADIATION MONITOR Ot J44.9 CHRONIC OBSTRUCTIVE PULMONARY DISEASE, U 01/21/2019 SALINA, BERTRAM E RADIATION MONITOR Ot J96.21 ACUTE AND CHRONIC RESPIRATORY FAILURE [place] 01/21/2019 SALINA, BERTRAM E RADIATION MONITOR Ot J96.91 RESPIRATORY FAILURE, UNSPECIFIED WITH HY 01/21/2019 SALINACARIDAD [place] E RADIATION MONITOR Ot Z90.49 ACQUIRED ABSENCE OF OTHER SPECIFIED PART 02/03/2019 SALINA, BERTRAM E RADIATION MONITOR Ot E66.9 OBESITY, UNSPECIFIED 02/03/2019 SALINA, BERTRAM E RADIATION MONITOR Ot F17.200 NICOTINE DEPENDENCE, UNSPECIFIED, UNCOMP 02/03/2019 SALINA, BERTRAM E RADIATION MONITOR Ot F39 UNSPECIFIED MOOD [AFFECTIVE] DISORDER 02/03/2019 SALINACARIDAD [place] E RADIATION MONITOR Ot G47.10 HYPERSOMNIA, UNSPECIFIED 02/03/2019 SALINA, BERTRAM E RADIATION MONITOR Ot G47.33 OBSTRUCTIVE SLEEP APNEA (ADULT) (PEDIATR 02/03/2019 SALINA BERTRAM E RADIATION MONITOR Ot J18.8 OTHER PNEUMONIA, UNSPECIFIED ORGANISM 02/03/2019 SALINA, BERTRAM E RADIATION MONITOR Ot J44.9 CHRONIC OBSTRUCTIVE PULMONARY DISEASE, U 02/03/2019 SALINA, BERTRAM E RADIATION MONITOR Ot J96.21 ACUTE AND CHRONIC RESPIRATORY FAILURE [place] 02/03/2019 SALINA, BERTRAM E RADIATION MONITOR Ot J96.91 RESPIRATORY FAILURE, UNSPECIFIED WITH HY 02/03/2019 SALINA, BERTRAM E RADIATION MONITOR Ot Z90.49 ACQUIRED ABSENCE OF OTHER SPECIFIED [...] ADULT 03/10/2019 VAN GONZALEZ MD, Ot Z79.84 HALF-WAY (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 OF ORAL HYPOGLYC 03/10/2019 VAN GONZALEZ MD Ot Z91.19 PATIENT'S NONCOMPLIANCE W [facility] 03/10/2019 VAN [...] R06.89 OTHER ABNORMALITIES OF BREATHING 03/11/2019 VAN GONZLAEZ MD Ot Z68.37 BODY MASS INDEX (BMI) 37.0-37.9, ADULT 03/11/2019 VAN GONZALEZ MD, Ot Z79.84 HALF-WAY (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 OF ORAL HYPOGLYC 03/11/2019 VAN GONZALEZ MD, Ot Z91.19 PATIENT'S NONCOMPLIANCE W [facility] 03/11/2019 VAN [...] ADULT 03/11/2019 VAN GONZALEZ MD, Ot Z79.84 HALF-WAY (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 OF ORAL HYPOGLYC 03/11/2019 VAN GONZALEZ MD, Ot Z91.19 PATIENT'S NONCOMPLIANCE W [facility] 03/11/2019 VAN [...] ADULT 03/12/2019 VAN GONZALEZ MD, Ot Z79.84 RADIOLOGY RECEPTIONIST (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 OF ORAL HYPOGLYC 03/12/2019 VAN GONZALEZ MD, Ot Z91.19 PATIENT'S NONCOMPLIANCE W [facility] 03/12/2019 VAN [...] ACUTE AND CHRONIC RESPIRATORY FAILURE [place] 03/12/2019 AVN GONZALEZ MD, Ot R06.89 OTHER ABNORMALITIES OF BREATHING 03/12/2019 VAN GONZALEZ MD, Ot Z68.37 BODY MASS INDEX (BMI) 37.0-37.9, ADULT 03/12/2019 VAN GONZALEZ MD, Ot Z79.84 RADIOLOGY RECEPTIONIST (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 OF ORAL HYPOGLYC 03/12/2019 VAN GONZALEZ MD, Ot Z91.19 PATIENT'S NONCOMPLIANCE W [facility] 03/12/2019 VAN [...] ADULT 03/13/2019 VAN GONZALEZ MD, Ot Z79.84 HALF-WAY (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 OF ORAL HYPOGLYC 03/13/2019 VAN GONZALEZ MD Ot Z91.19 PATIENT'S NONCOMPLIANCE W [facility] 03/13/2019 VAN [...] ADULT 03/14/2019 VAN GONZALEZ MD, Ot Z79.84 HALF-WAY (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 OF ORAL HYPOGLYC 03/14/2019 VAN GONZALEZ MD, Ot Z91.19 PATIENT'S NONCOMPLIANCE W [facility] 03/14/2019 VAN [...] ADULT 03/14/2019 VAN GONZALEZ MD, Ot Z79.84 RADIOLOGY RECEPTIONIST (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 OF ORAL HYPOGLYC 03/14/2019 VAN GONZALEZ MD, Ot Z91.19 PATIENT'S NONCOMPLIANCE W [facility] 03/14/2019 VAN [...] ADULT 03/15/2019 VAN GONZALEZ MD, Ot Z79.84 RADIOLOGY RECEPTIONIST (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 OF ORAL HYPOGLYC 03/15/2019 VAN GONZALEZ MD, Ot Z91.19 PATIENT'S NONCOMPLIANCE W [facility] 03/15/2019 VAN [...] ADULT 03/16/2019 VAN GONZALEZ MD, Ot Z79.84 RADIOLOGY RECEPTIONIST (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 OF ORAL HYPOGLYC 03/16/2019 VAN GONZALEZ MD, Ot Z91.19 PATIENT'S NONCOMPLIANCE W [facility] 03/16/2019 VAN [...] ADULT 03/16/2019 VAN GONZALEZ MD, Ot Z79.84 RADIOLOGY RECEPTIONIST (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 OF ORAL HYPOGLYC 03/16/2019 VAN GONZALEZ MD Ot Z91.19 PATIENT'S NONCOMPLIANCE W [facility] 03/16/2019 VAN [...] ADULT 03/16/2019 VAN GONZALEZ MD, Ot Z79.84 HALF-WAY (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 OF ORAL HYPOGLYC 03/16/2019 VAN GONZALEZ MD, Ot Z91.19 PATIENT'S NONCOMPLIANCE W [facility] 03/16/2019 VAN [...] HYPERTENSIVE HEART DISEASE WITH HEART FA 03/17/2019 AVN GONZALEZ MD, Ot I21.A1 MYOCARDIAL INFARCTION TYPE [...] ADULT 03/17/2019 VAN GONZALEZ MD, Ot Z79.84 HALF-WAY (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 OF ORAL HYPOGLYC 03/17/2019 VAN GONZALEZ MD, Ot Z91.19 PATIENT'S NONCOMPLIANCE W [facility] 03/17/2019 VAN [...] ADULT 03/18/2019 VAN GONZALEZ MD, Ot Z79.84 RADIOLOGY RECEPTIONIST (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 OF ORAL HYPOGLYC 03/18/2019 VAN GONZALEZ MD, Ot Z91.19 PATIENT'S NONCOMPLIANCE W [facility] 03/18/2019 VAN [...] ADULT 03/19/2019 VAN GONZALEZ MD, Ot Z79.84 HALF-WAY (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 OF ORAL HYPOGLYC 03/19/2019 VAN GONZALEZ MD, Ot Z91.19 PATIENT'S NONCOMPLIANCE W [facility] 03/19/2019 VAN [...] GONZALEZ MD Ot E87 .2 ACIDOSIS 03/20/2019 AVN GONZALEZ MD, Ot F17.210 NICOTINE DEPENDENCE, CIGARETTES, [...] ADULT 03/20/2019 VAN GONZALEZ MD, Ot Z79.84 RADIOLOGY RECEPTIONIST (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 OF ORAL HYPOGLYC 03/20/2019 VAN GONZALEZ MD, Ot Z91.19 PATIENT'S NONCOMPLIANCE W [facility] 03/20/2019 VAN [...] ADULT 03/20/2019 VAN GONZALEZ MD, Ot Z79.84 HALF-WAY (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 OF ORAL HYPOGLYC 03/20/2019 VAN GONZALEZ MD, Ot Z91.19 PATIENT'S NONCOMPLIANCE W [facility] 03/20/2019 VAN [...] MD, Ot I25.10 ATHSCL HEART DISEASE OF [place] CORONARY 03/20/2019 VAN GONZALEZ MD, Ot I27.20 [...] ADULT 03/20/2019 VAN GONZALEZ MD, Ot Z79.84 HALF-WAY (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 OF ORAL HYPOGLYC 03/20/2019 VAN GONZALEZ MD, Ot Z91.19 PATIENT'S NONCOMPLIANCE W [facility] 03/20/2019 VAN [...] ADULT 03/20/2019 VAN GONZALEZ MD Ot Z79.84 HALF-WAY (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 OF ORAL HYPOGLYC 03/20/2019 VAN GONZALEZ MD Ot Z91.19 PATIENT'S NONCOMPLIANCE W [facility] 03/20/2019 VAN [...] CLAIRE Ot J20.9 ACUTE BRONCHITIS, UNSPECIFIED 07/21/2019 ABZZI DO, CLAIRE Ot J43.9 EMPHYSEMA, UNSPECIFIED 07/21/2019 [...] Ot E78. 00 PURE HYPERCHOLESTEROLEMIA, UNSPECIFIED 08/25/2019 DAAMRI LOONEY, AJ Guadarrama Ot F32. 9 MAJOR [...] 08/25/2019 AJ WETZEL MD Ot Z79. 51 HALF-WAY (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 OF INHALED STERO 08/25/2019 AJ WETZEL MD Ot Z79. 84 HALF-WAY (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 OF ORAL HYPOGLYC 08/25/2019 AJ [...] SHOCK 09/15/2019 BAZZI DO, CLAIRE Ot Z79.84 HALF-WAY (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 OF ORAL HYPOGLYC 09/15/2019 BAZZI [...] SHOCK 09/15/2019 BAZZI DO, CLAIRE Ot Z79.84 RADIOLOGY RECEPTIONIST (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 OF ORAL HYPOGLYC 09/15/2019 BAZZI [...] SHOCK 09/16/2019 BAZZI DO, CLAIRE Ot Z79.84 RADIOLOGY RECEPTIONIST (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 OF ORAL HYPOGLYC 09/16/2019 BAZZI [...] SHOCK 09/17/2019 BAZZI DO, CLAIRE Ot Z79.84 RADIOLOGY RECEPTIONIST (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 OF ORAL HYPOGLYC 09/17/2019 BAZZI [...] SHOCK 09/18/2019 BAZZI DO, CLAIRE Ot Z79.84 HALF-WAY (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 OF ORAL HYPOGLYC 09/18/2019 BAZZI [...] SHOCK 09/18/2019 BAZZI DO, CLAIRE Ot Z79.84 RADIOLOGY RECEPTIONIST (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 OF ORAL HYPOGLYC 09/18/2019 BAZZI [...] SHOCK 09/18/2019 BAZZI DO, CLAIRE Ot Z79.84 HALF-WAY (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 OF ORAL HYPOGLYC 09/18/2019 BAZZI [...] SHOCK 09/18/2019 BAZZI DO, CLAIRE Ot Z79.84 RADIOLOGY RECEPTIONIST (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 OF ORAL HYPOGLYC 09/18/2019 BAZZI [...] ADULT 12/27/2019 JEFF DURBIN MD, Ot Z79.84 RADIOLOGY RECEPTIONIST (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 OF ORAL HYPOGLYC 12/27/2019 JEFF DURBIN MD, Ot Z99.81 DEPENDENCE ON SUPPLEMENTAL OXYGEN Procedures Code Description [place] [address] ROUT INE VENIPUNCTURE 06/09/2012 61396 A1C (IN-HOUSE) 06/09/2012 39366 CMP 06/09/2012 14096 TSH 06/09/2012 43171 CBC 06/09/2012 15759 ROUT INE VENIPUNCTURE 10/06/2012 11024 A1C (IN-HOUSE) 10/06/2012 20558 CMP 10/06/2012 52309 TSH 10/06/2012 91678 ROUT INE VENIPUNCTURE 04/01/2013 27351 A1C (IN-HOUSE) 04/01/2013 34861 LIPI D PANEL 04/01/2013 61538 CMP 04/01/2013 [id number] GF R CALC (RESULT ONLY) 04/01/2013 71627 TSH 04/01/2013 97573 ROUT INE VENIPUNCTURE 10/01/2013 02715 CMP 10/01/2013 55541 LIPI D PANEL 10/01/2013 19992 TSH 10/01/2013 82269 A1C (IN-HOUSE) 10/01/2013 61806 MICR O ALBUMIN-IN HOUSE 10/01/2013 93812 ROUT INE VENIPUNCTURE 05/03/2014 80568 CMP 05/03/2014 31558 LIPI D PANEL 05/03/2014 96568 TSH 05/03/2014 94859 A1C (IN-HOUSE) 05/03/2014 2028F FOOT EXAM PERFORMED 05/03/2014 50161 OXIMETRY 07/26/2014 16407 XRAY CHEST 2 VIEW 07/28/2014 10978 OXIMETRY 07/28/2014 52940 OXIMETRY 07/30/2014 PULMONARY WESLEY ALMAGUER 07/30/2014 06758 TSH 11/05/2014 78222 ROUT INE VENIPUNCTURE 11/05/2014 01334 MICR O ALBUMIN-IN HOUSE 11/05/2014 96842 A1C (IN-HOUSE) 11/05/20140513807 GF R CALC (RESULT ONLY) 11/05/2014 78224 CMP 11/05/2014 [id number] IN SERTION OF ENDOTRACHEAL AIRWAY INTO TR 10/31/2018 [id number] RE SPIRATORY VENTILATION, LESS THAN 24 CO 10/31/2018 [id number] IN SERTION OF ENDOTRACHEAL AIRWAY INTO TR 03/09/2019 [id number] RE SPIRATORY VENTILATION, 24- 96 CONSECUTI 03/09/2019 [id number] RE SPIRATORY VENTILATION, GREATER THAN 96 03/09/2019 [id number] ME ASURE OF CARDIAC SAMPL PRESSURE, L H 03/11/2019 [id number] FL UOROSCOPY OF MULT COR ART USING L OSM 03/11/2019 [id number] FL UOROSCOPY OF LEFT HEART USING LOW OSMO 03/11/2019 [id number] IN SERTION OF ENDOTRACHEAL AIRWAY INTO TR 09/11/2019 [id number] RE SPIRATORY VENTILATION, 24- 96 CONSECUTI 09/11/2019 Results Test Result Range Thyroid [place] Profile - 06/08/16 16:25 TSH 3.060 uIU/mL [...] LDL Cholesterol Calc 114 mg/dL 0-99 Thyroid [place] Profile - 03/15/17 09:41 TSH 11.750 uIU/mL [...] PLUS NORMAL DEMARCO NRG Bacterial sputum culture [id number] [facility] Bacterial susceptibility panel - 8 21:00 Oxacillin [...] A AND B ANTIGENS BY IA [facility] Comprehensive metabolic panel - 09/22/18 16:35 [...] 140-400 MPV 10.4 fL 7.5-12.5 ABSOLUTE NEUTROPHILS 00484 cells/uL 1500 -7800 ABSOLUTE LYMPHOCYTES 1121 cells/uL [...] 13:[address] NRG Bacterial sputum culture [id number] NRG Dirithromycin susceptibility test by dis k [...] by glucometer (mas s/volume) 167 mg/dL 70-110 [id number] - 06/26/19 14:18 Serum or plasma urea [...] ENTRY 3 PRELIM RAPID ID TESTING AT [facility] NRG Bacterial sputum culture SEE COMMEN NRG [...] culture - 09/11/19 23:00 Bacterial urine culture [id number] NRG COLONY COUNT 50,000 CFU/ML NRG FTX;REPORTABLE [...] culture - 12/26/19 20:35 Bacterial urine culture [id number] NRG COLONY COUNT 10,000 CFU/ML NRG SUSCEPTIBILITY [...] by glucometer (mas s/volume) 229 mg/dL 70-110 Complete blood count (CBC) with automate d white blood cell (WBC) differential - 01/29/20 23:45 Blood leukocytes automated count (number/volume) 8.8 10*3/uL 4.3-11.0 Blood erythrocytes automated count (number/volume) 4.41 10*6/uL 4.35-5.85 Venous blood hemoglobin measurement (mass/volume) [...] 130-400 Automated blood platelet mean volume measurement 9.9 [foz_us] 7.4-10.4 Automated blood neutrophils/100 leukocytes 81 % 42-75 Automated blood lymphocytes/100 leukocytes 13 % 12-44 Blood monocytes/100 leukocytes 4 % 0-12 Automated blood eosinophils/100 leukocytes 1 % 0-10 Automated blood basophils/100 leukocytes 0 % 0-10 Blood neutrophils automated count (number/volume) 7.1 10*3 1.8-7.8 Blood lymphocytes automated count (number/volume) 1.2 10*3 1.0-4.0 Blood monocytes automated count (number/volume) 0. 4 10*3 0.0-1.0 Automated eosinophil count 0.1 10*3/uL 0 .0-0.3 Automated blood basophil count (count/volume) 0.0 10*3/uL 0.0-0.1 Comprehensive metabolic panel - 01/29/20 23:45 Serum or plasma sodium measurement (moles/volume) 139 mmol/L 135-145 Serum or plasma potassium measurement (moles/volume) 4.3 mmol/L 3.6-5.0 Serum or plasma chloride measurement (moles/volume) 88 mmol/L 98-107 Carbon dioxide 39 mmol/L 21-32 [...] NRG Serum or plasma glucose measurement (mass/volume) 346 mg/dL 70-105 Serum or plasma calcium measurement (mass/volume) 9.7 mg/dL 8.5-10.1 Serum or plasma total bilirubin measurement (mass/volu me) 0.4 mg/dL 0.1-1.0 Serum or plasma alkaline phosphatase moe surement (enzymatic activity/volume) 126 U/L 40-136 Serum or plasma aspartate aminotransfera se measurement (enzymatic activity/volume) 13 U/L 5-34 Serum or plasma alanine aminotransferase measurement (enzymatic activity/volume) 9 U/L 0-55 Serum or plasma protein measurement (mass/volume) 7.2 g/dL 6.4-8.2 Serum or plasma albumin measurement (mass/volume) 3.4 g/dL 3.2-4.5 CALCIUM CORRECTED 10.2 mg/dL 8.5-10.1 Blood lactic acid measurement (moles/vol ume) - 01/29/20 23:45 Blood lactic acid measurement (moles/volume) 1.64 mmol/L 0.50-2.00 Serum or plasma C reactive protein measu rement (mass/volume) - 01/29/20 23:45 Serum or plasma C reactive protein measurement (mass/v olume) 9.92 mg/dL 0.00-0.50 PT panel in platelet poor plasma by coag ulation assay - 01/29/20 23:45 Prothrombin time (PT) in platelet poor plasma by coagu lation assay 12.6 s 12.2-14.7 INR in platelet poor plasma or blood by coagulation as say 0.9 0.8-1.4 Activated partial thromboplastin time (a PTT) in platelet poor plasma bycoagulation assay - 01/29/20 23:45 Activated partial thromboplastin time (a PTT) in platelet poor plasma bycoagulation assay 26 s 24-35 Serum or plasma lithium measurement (mol es/volume) - 01/29/20 23:45 BNP PT 59.1 pg/mL <100.0 PROCALCITONIN (PCT) - 01/29/20 23:45 PROCALCITONIN (PCT) 0.12 ng/mL <0.10 Arterial blood gas measurement - 0 00:26 Blood pCO2 78 mm[Hg] 35-45 Blood pO2 71 mm[Hg] 79-93 Arterial blood bicarbonate measurement (moles/volume) 44 mmol/L 23-27 Arterial blood base excess by calculation 17.2 mmo l/L -2.5-2.5 Arterial blood oxygen saturation measurement 96 % 94-100 * Inhaled oxygen flow rate 40% NRG Arterial blood pH measurement with patient temperature correction 7.36 7.37-7.43 Arterial blood carbon dioxide, total measurement (mole s/volume) 46.3 mmol/L 21.0-31.0 Body site LEFT RADIAL NRG Assessment of wrist artery patency prior to arterial p uncture YES-POS NRG Setting of ventilation mode NO NR G Measurement of body temperature 96.5 NRG Complete urinalysis with reflex to cultu re - 01/30/20 00:30 Urine color determination YELLOW NRG Urine clarity determination CLOUDY NR G Urine pH measurement by test strip 6.0 5-9 Specific gravity of urine by test strip 1.020 1.016-1.022 Urine protein assay by test strip, semi-quantitative 1+ NEGATIVE Urine glucose detection by automated test strip NE GATIVE NEGATIVE Erythrocytes detection in urine sediment by light micr oscopy NEGATIVE NEGATIVE Urine ketones detection by automated test strip NE GATIVE NEGATIVE Urine nitrite detection by test strip NEGATIVE NEGATIVE Urine total bilirubin detection by test strip NEGA TIVE NEGATIVE Urine urobilinogen measurement by automated test strip (mass/volume) 2.0 mg/dL < = 1.0 Urine leukocyte esterase detection by dipstick NEG ATIVE NEGATIVE Automated urine sediment erythrocyte cou nt by microscopy (number/high power field) NONE NRG Automated urine sediment leukocyte count by microscopy (number/high power field) NONE NRG Bacteria detection in urine sediment by light microsco py TRACE NRG Squamous epithelial cells detection in u rine sediment by light microscopy 10-25 NRG Crystals detection in urine sediment by light microsco py NONE NRG Casts detection in urine sediment by light microscopy NONE NRG Mucus detection in urine sediment by light microscopy SMALL NRG Complete urinalysis with reflex to culture CULTURE PENDING NRG Arterial blood gas measurement - 0 01:29 Blood pCO2 60 mm[Hg] 35-45 Blood pO2 101 mm[Hg] 79-93 Arterial blood bicarbonate measurement (moles/volume) 45 mmol/L 23-27 Arterial blood base excess by calculation 19.6 mmo l/L -2.5-2.5 Arterial blood oxygen saturation measurement 99 % 94-100 * Inhaled oxygen flow rate 40% NRG Arterial blood pH measurement with patient temperature correction 7.48 7.37-7.43 Arterial blood carbon dioxide, total measurement (mole s/volume) 46.9 mmol/L 21.0-31.0 Body site LEFT RADIAL NRG Assessment of wrist artery patency prior to arterial p uncture YES-POS NRG Setting of ventilation mode NO NR G Measurement of body temperature 96.6 NRG Encounters ACCT No. Visit Date/Time Discharge Status Pt. Type Provider Facility Loc./Unit Complaint [id number] 03/18/2017 19:06:00 Document Registration [id number] 06/09/2016 13:05:00 Document Registration [id number] 11/05/2014 13:47:00 11/05/2014 23:59: 59 CLS Outpatient VÍCTOR BLAIR DO [id number] 08/30/2014 12:04:00 08/30/2014 23:59: 59 CLS Outpatient VÍCTOR BLAIR DO [id number] 07/30/2014 13:48:00 07/30/2014 23:59: 59 CLS Outpatient VÍCTOR BLAIR DO [id number] 07/28/2014 13:42:00 07/28/2014 23:59: 59 CLS Outpatient VÍCTOR BLAIR DO [id number] 07/27/2014 17:00:00 07/27/2014 23:59: 59 CLS Outpatient VÍCTOR BLAIR DO [id number] 07/26/2014 13:37:00 07/26/2014 23:59: 59 CLS Outpatient JOEL FALCON APRN Josh [id number] 05/28/2014 00:00:00 05/28/2014 23:59: 59 CLS Outpatient BLAIR DOVÍCTOR [id number] 05/03/2014 11:11:00 05/03/2014 23:59: 59 CLS Outpatient BLAIR DOVÍCTOR [id number] 05/03/2014 11:11:00 05/03/2014 23:59: 59 CLS Outpatient BLAIR DOVÍCTOR [id number] 04/27/2014 00:00:00 04/27/2014 23:59: 59 CLS Outpatient BLAIR DOVÍCTOR [id number] 10/01/2013 09:12:00 10/01/2013 23:59: 59 CLS Outpatient BLAIR DOVÍCTOR [id number] 10/01/2013 09:12:00 10/01/2013 23:59: 59 CLS Outpatient BLAIR DOVÍCTOR [id number] 04/01/2013 10:06:00 04/01/2013 23:59: 59 CLS Outpatient BLAIR DOVÍCTOR [id number] 04/01/2013 10:06:00 04/01/2013 23:59: 59 CLS Outpatient BLAIR DOVÍCTOR [id number] 10/06/2012 16:10:00 10/06/2012 23:59: 59 CLS Outpatient [id number] 2012 14:58:00 2012 23:59: 59 CLS Outpatient JOEL FALCON APRN Josh [id number] 06/09/2012 16:46:00 06/09/2012 23:59: 59 CLS Outpatient BLAIR DOVÍCTOR Gabrielle [id number] 02/07/2012 14:20:00 02/07/2012 23:59:5 9 CLS Outpatient BLAIR DOVÍCTOR [id number] 01/08/2013 13:43:00 Document Registration [id number] 10/06/2012 16:10:00 Document Registration [id number] 12/24/2019 01:15:00 020 14:26:00 DIS Inpatient GIFTY LOONEY, JEFF Romero [facility] 4TH COPD EXACERBATI ON SOMNOLENCE [id number] 09/12/2019 00:15:00 020 12:28:00 DIS Inpatient BAZZI DO, CLAIRE [facility] 4TH ACUTE RESPIRATORY FAILU RE,HYPOXIA HYPERCAPNIA, [id number] 08/22/2019 14:33:00 16:45:00 DIS Outpatient DAMARI LOONEY, AJ Guadarrama [facility] ER FACIAL SWELLING [id number] 08/21/2019 23:14:00 00:01:00 DIS Outpatient DEWAYNE PETER DO, V [facility] ER LEFT SIDE JAW PAIN [id number] 08/10/2019 08:28:00 23:59:59 CLS Preadmit BERTRAM DOWNING APRN [facility] RAD DYSPNEA [id number] 07/17/2019 20:50:00 12:45:00 DIS Inpatient ROSE MARY NAIR CLAIRE Tamar [facility] 4TH PNEUMONIA,COPD,TYPE 2 D M [id number] 06/26/2019 14:05:00 23:59:59 CLS Outpatient BERTRAM DOWNING APRN [facility] RAD ABN FINDING OF LUNG FIELD [id number] 03/09/2019 00:40:00 13:10:00 DIS Outpatient LISA LOONEY, VAN Mckeon [facility] 4TH ACUTE ON CHRONIC RESPIR ATORY FAILURE; PNEUMONIA, [id number] 01/15/2019 14:29:00 23:59:59 CLS Outpatient BERTRAM DOWNING APRN [facility] RAD OTHER PNEUMONIA [id number] 11/27/2018 07:17:00 23:59:59 CLS Preadmit BERTRAM DOWNING APRN [facility] RT COPD,JORGE L [id number] 10/30/2018 22:24:00 17:39:00 DIS Inpatient VÍCTOR BLAIR DO, V [facility] ICU COPD EXACERBATION WITH HYPOXIA [id number] 09/22/2018 16:32:00 19:52:00 DIS Emergency DAMARI LOONEY, AJ Guadarrama [facility] ER SOA [id number] 11/25/2017 18:43:00 018 12:50:00 DIS Inpatient NORMAN ALY MD [facility] 4TH COPD EXACERBATION,RESPI RATORY DISTRESS [id number] 01/07/2013 20:31:00 013 21:45:00 DIS Emergency BRITTANI DO, DEWAYNE K Vi [facility] ER SKIN IRRITATION [id number] 01/30/2020 01:50:[address] Inpatient CLAIRE BAZZI DO [facility] ICU COPD EXACERBATION,RESP FAILU RE [id number] 10/01/2014 14:22:00 Document Registration [id number] 08/15/2010 15:49:00 Document Registration [id number] 07/09/2010 16:25:00 Document Registration [id number] 08/18/2019 17:40:00 08/18/2019 23:59:5 9 [facility] Outpatient EASTON LOONEY, YULIYA FAY [facility] [id number] 10/08/2018 11:40:00 Document Registration [id number] 06/11/2018 14:00:00 Document Registration [id number] 03/21/2018 15:00:00 Document Registration [id number] 05/28/2017 16:20:00 Document Registration [id number] 03/15/2017 09:20:00 Document Registration
[2020-01-30] MEDS ORDERED: LACTATED RINGERS 1,000 ML IV ONE (04:59)
[2020-01-30] MEDS ORDERED: RT-ALBUTEROL INHALER HFA (VENTOLIN HFA) 18 GM IH PRN ×2 (05:30→06:45)
[2020-01-30] MEDS ORDERED: ONDANSETRON 4 MG/2 ML (SDV) Z0FRAN IV PRN (05:30)
[2020-01-30] MEDS: POTASSIUM CL 10MEQ/50ML IVPB 50 ML IV SCH (05:34)
[2020-01-30] MEDS: KCL 20 MEQ TAB (K-DUR) PO SCH (05:34)
[2020-01-30] MEDS: MAGNESIUM 1 GM/100 ML IVPB 100 ML IV SCH (05:34)
[2020-01-30] MEDS: inSUlin ASPART (NovoLOG) 1 UNIT/0.01 ML (CHARGE PER UNIT) SC SCH ×4 (05:35→21:28)
[2020-01-30] MEDS: LACTATED RINGERS 1,000 ML IV SCH ×3 (06:13→22:18)
[2020-01-30] MEDS: methylPREDNISolone 40 MG/ML (Solu-MEDROL) VIAL IV SCH ×3 (06:13→16:58)
--- NOTE | 2020-01-30 06:27 | Pulmonary History & Physicial ---
History of Present Illness History of Present Illness Date Seen by Provider: Jan 30, 2020 Time Seen by Provider: 06:21 Date of Admission History of Present Illness 54yo with hx of current smoker with severe COPD ( uses 5l/min at home) presents to the emergency room in respiratory distress. When EMS arrived at her home oxygen saturation was 80 percent on nasal cannula. She denies any recent fever or increasing cough. Pt was admitted to ICU with BiPAP therapy. Allergies and Home Medications Allergies Coded Allergies: NKANo Known Allergies (Unverified Allergy, Mild, 05/01/09) Home Medications Acetaminophen 500 Mg Tablet, 1,500 MG PO Q8H PRN for PAIN-MILD (1-4), (Reported) Albuterol Sulfate 1 Puff Puff, 2 PUFF INH Q6H PRN for SHORTNESS OF BREATH, ( Reported) Albuterol Sulfate 2.5 Mg/3 Ml Vial.neb, 3 ML NEB Q4-6 H PRN for SHORTNESS OF BREATH, (Reported) Aspirin 81 Mg Tab.chew, 81 MG PO DAILY, (Reported) Atorvastatin Calcium 10 Mg Tablet, 10 MG PO DAILY, (Reported) Famotidine 10 Mg Tablet, 20 MG PO BID, (Reported) Fluticasone Propion/Salmeterol 1 Each Blst.w.dev, 1 PUFF INH BID, (Reported) Fluticasone Propionate 16 Gm Primrose.susp, 2 SPRAY NS DAILY PRN for CONGESTION, (Reported) Furosemide 40 Mg Tablet, 40 MG PO DAILY, (Reported) Glipizide 5 Mg Tablet, 10 MG PO DAILY, (Reported) TAKES 2 (5MG) TABS Glipizide 5 Mg Tablet, 5 MG PO HS, (Reported) Levofloxacin 500 Mg Tablet, 500 MG PO DAILY Prescribed by: JEFF DURBIN on 12/27/19 1212 Levothyroxine Sodium 175 Mcg Tablet, 175 MCG PO DAILY, (Reported) Loratadine 10 Mg Tablet, 10 MG PO DAILY PRN for AALLERGY SYMPTOMS, (Reported) Metformin HCl 500 Mg Tablet, 500 MG PO BID, (Reported) Metoprolol Succinate 50 Mg Cap.spr.24, 50 MG PO DAILY, (Reported) Montelukast Sodium 10 Mg Tablet, 10 MG PO HS, (Reported) [place]-3/Dha/Epa/Fish Oil 1 Each Capsule, 2,000 MG PO DAILY, (Reported) Paroxetine HCl 40 Mg Tablet, 40 MG PO 1500, (Reported) Potassium Chloride 10 Meq Tab.er.prt, 10 MEQ PO DAILY, (Reported) Prednisone 10 Mg Tab.ds.pk, 10 MG PO DAILY Take 6 tabs(60mg)daily,decrease by 1 tab(10mg)every other day. Prescribed by: JEFF DURBIN on 12/27/19 1212 Tiotropium [place] 1 Inh Aerp, 1 CAP INH 1300 PRN for SHORTNESS OF BREATH, (Repo rted) Past Nuygrmv-Iocjlq-Gbwswd Hx Past Med/Social Hx: Reviewed Nursing Past Med/Soc Hx Patient Social History Alcohol Use: Denies Use Recreational Drug Use: No Smoking Status: Current Everyday Smoker Type Used: Cigarettes 2nd Hand Smoke Exposure: Yes Recent Foreign Travel: No Contact w/Someone Who Travel: No Recent Infectious Disease Expo: No Recent Hopitalizations: Yes Physical Abuse: No Sexual Abuse: No Mistreated: No Fear: No Immunizations Up To Date Tetanus Booster (TDap): Unknown PED Vaccines UTD: No Date of Pneumonia Vaccine: Aug 22, 2018 Date of Influenza Vaccine: Jun 12, 2019 Seasonal Allergies Seasonal Allergies: Yes Past Medical History Surgeries: Yes Gallbladder Respiratory: Yes (O2 DEPENDENT AT 4L/NC) Pneumonia, COPD Currently Using CPAP: No Currently Using BIPAP: No Cardiac: Yes High Cholesterol, Hypertension Neurological: No 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 Sexually Transmitted Disease: No HIV/AIDS: No Genitourinary: No Gastrointestinal: No Musculoskeletal: No Endocrine: Yes Hypothyroidsim, Diabetes, Non-Insulin dep HEENT: No Loss of Vision: Denies Hearing Impairment: Denies Cancer: No Psychosocial: Yes Anxiety, Depression Integumentary: No Blood Disorders: No Adverse Reaction/Blood Tranf: No Family Medical History Reviewed Nursing Family Hx Cardiovascular disease 19 MOTHER, Onset:Unknown Diabetes mellitus 19 MOTHER, Onset:Unknown Diabetes Review of Systems Time Seen by Provider: 06:23 Exam Exam Vital Signs Date Time Temp Pulse Resp B/P (MAP) Pulse Ox O2 Delivery O2 Flow Rate FiO2 01/30/20 04:57 36.0 71 18 129/91 (104) 95 NIV Bilevel 40.00 01/30/20 04:57 68 17 94 40.00 01/30/20 04:49 35.9 68 18 113/81 (88) 94 NIV Bilevel 01/30/20 00:55 92 21 96 40.00 01/29/20 23:52 91 22 96 40.00 01/29/20 23:28 15.00 01/29/20 23:28 35.9 91 26 105/80 (88) 92 15.00 I & O 01/30/20 07:00 Intake Total 100 ml Balance 100 ml Height & Weight Height: 5'6.00" Weight: 212lbs. 1.0oz. 96.905477yb; 34.78 BMI Method:Estimated Capillary Refill: Less Than 3 Seconds Gastrointestinal: normal bowel sounds, non tender, soft Results Lab Laboratory Tests 01/29/20 23:45 Assessment/Plan Assessment/Plan Admission Dx Acute on chronic respiratory failure -Currently on BiPAP -Trial pt to vapotherm -Repeat labs pending PNA -Continue Zosyn -Rodriguez cultures pending -Urine strep and legionella ag pending COPDAE -breathing txs add advair -Oxygen -solumedrol Admission Status: Inpatient Order (span 2 midnights) Reason for Inpatient Admission: Acute on chronic respiratory failure - Acute on chronic respiratory failure WESLEY ALMAGUER DO Jan 30, 2020 06:27
[2020-01-30] MEDS: IPRATROPIUM INHALER (ATROVENT) 12.9 GM INH SCH ×5 (06:34→22:30)
--- NOTE | 2020-01-30 07:42 | Diagnostic Imaging Report ---
Indication: Dyspnea and cough. Comparison: 12/26/2019. Discussion: Single portable upright view of the chest was obtained. Stable normal heart size. Some atelectasis noted within the right midlung. Suspect new small right pleural effusion. No pneumothorax. No focal consolidation. Impression: 1. New small right pleural effusion. Dictated by: Dictated on workstation # [id number]
[2020-01-30] MEDS: RT-ALBUTEROL INHALER HFA (VENTOLIN HFA) 18 GM IH SCH ×4 (09:03→22:31)
[2020-01-30] MEDS: ENOXAPARIN 40 MG/0.4 ML (LOVENOX) SYR SC SCH (09:46)
[2020-01-30] MEDS: ASPIRIN 81 MG CHEW (CHILDREN'S ASA) PO SCH (09:46)
[2020-01-30] MEDS: FAMOTIDINE 20MG/2ML IV (PEPCID) IVP SCH (09:47)
[2020-01-30] MEDS: PIPERACILLIN/TAZO 4.5 GM/NS 100 ML IV SCH ×6 (09:47→22:20)
[2020-01-30 10:39] LABS: ALBUMIN 3.4 GM/DL (3.2-4.5)
[2020-01-30 10:41] LABS: CALCIUM 9.4 MG/DL (8.5-10.1)
[2020-01-30 10:42] LABS: TOTAL PROTEIN 7.1 GM/DL (6.4-8.2)
[2020-01-30 10:44] LABS: BILIRUBIN,TOTAL 0.4 MG/DL (0.1-1.0)
[2020-01-30 10:45] LABS: PHOSPHORUS 3.8 MG/DL (2.3-4.7)
[2020-01-30 10:46] LABS: CREATININE SERUM 1.1 MG/DL (0.60-1.30)
[2020-01-30 11:00] LABS: ABG OXYGEN SATURATION 94 % (94-100); ABG PH 7.35 (7.37-7.43); ABG PO2 67 MMHG (79-93); ABG TCO2 43.9 MMOL/L (21.0-31.0)
[2020-01-30 11:03] LABS: ABG PCO2 76 MMHG (35-45); ALLENS TEST YES-POS; INSPIRED O2 35%; VENTILATOR NO
[2020-01-30 11:40] LABS: BASOPHILS % (AUTO) 0 % (0-10); EOSINOPHILS % (AUTO) 0 % (0-10); HEMATOCRIT 42 % (35-52); HEMOGLOBIN 12.8 G/DL (11.5-16.0); LYMPHOCYTES # (AUTO) 0.5 X 10^3 (1.0-4.0); LYMPHOCYTES % (AUTO) 9 % (12-44); MEAN CORPUSCULAR HEMOGLOBIN 29 PG (25-34); MEAN CORPUSCULAR HGB CONC 31 G/DL (32-36); MEAN CORPUSCULAR VOLUME 95 FL (80-99); MEAN PLATELET VOLUME 9.5 FL (7.4-10.4); MONOCYTES # (AUTO) 0.1 X 10^3 (0.0-1.0); MONOCYTES % (AUTO) 2 % (0-12); NEUTROPHILS # (AUTO) 5.5 X 10^3 (1.8-7.8); NEUTROPHILS % (AUTO) 90 % (42-75); PLATELET COUNT 208 10^3/uL (130-400); RED CELL DISTRIBUTION WIDTH 16.4 % (10.0-14.5); WHITE BLOOD COUNT 6.2 10^3/uL (4.3-11.0)
[2020-01-30 12:16] LABS: ANISOCYTOSIS SLIGHT; BAND NEUTROPHILS 0 %; BASOPHILS % (MANUAL) 0 %; EOSINOPHILS % (MANUAL) 0 %; LYMPHOCYTES % (MANUAL) 8 %; MONOCYTES % (MANUAL) 0 %; NEUTROPHILS % (MANUAL) 92 %; POLYCHROMASIA SLIGHT
--- NOTE | 2020-01-30 16:32 | NUR ---
THIS NURSE NOTIFIED DR ALMAGUER THAT PT COVID-19 SWAB CAME BACK NEGATIVE. ORDER TO DC AIRBORNE ISOLATION.
[2020-01-31] VITALS (10 sets, daily range): BP systolic 124–165; BP diastolic 57–101
[2020-01-31] MEDS: methylPREDNISolone 40 MG/ML (Solu-MEDROL) VIAL IV SCH ×4 (00:36→18:09)
--- NOTE | 2020-01-31 01:40 | Pulmonary Progress Note ---
Subjective Time Seen by a Provider: 01:38 Subjective/Events-last exam Pt is currently on BiPAP. No complications noted. Sepsis Event Evaluation Height, Weight, BMI Height: 5'6.00" Weight: 212lbs. 1.0oz. 96.971016sb; 34.78 BMI Method:Estimated Focused Exam Lactate Level 01/29/20 23:45: Lactic Acid Level 1.64 Exam Exam Vital Signs Date Time Temp Pulse Resp B/P (MAP) Pulse Ox O2 Delivery O2 Flow Rate FiO2 01/31/20 00:00 51 133/83 (100) 94 NIV Bilevel 40.00 01/31/20 00:00 35.7 01/30/20 23:00 55 127/74 (91) 93 NIV Bilevel 40.00 01/30/20 22:40 NIV Bilevel 40.00 01/30/20 22:31 53 19 95 40.00 01/30/20 22:00 52 135/77 (96) 95 Nasal Cannula 6.00 01/30/20 21:00 65 134/100 (111) 94 Nasal Cannula 6.00 01/30/20 20:00 93 Nasal Cannula 6.00 01/30/20 20:00 73 115/83 (94) 93 Nasal Cannula 6.00 01/30/20 19:50 94 Nasal Cannula 6.00 01/30/20 19:25 36.2 72 18 134/78 (96) 82 Nasal Cannula 6.00 01/30/20 19:09 36.5 01/30/20 19:00 68 134/78 (96) 94 Nasal Cannula 6.00 01/30/20 19:00 67 01/30/20 18:00 67 111/66 (81) 94 Nasal Cannula 6.00 01/30/20 17:00 78 119/63 (81) 90 Nasal Cannula 6.00 01/30/20 16:48 36.4 92 Nasal Cannula 6.00 01/30/20 16:00 94 NIV Bilevel 40 01/30/20 15:00 66 143/80 (101) 95 NIV Bilevel 40.00 01/30/20 14:21 54 16 95 40.00 01/30/20 14:20 64 18 94 40.00 01/30/20 14:00 58 143/90 (107) 94 NIV Bilevel 40.00 01/30/20 13:00 59 01/30/20 13:00 61 95 Nasal Cannula 4.00 01/30/20 12:00 35.9 01/30/20 12:00 65 94 NIV Bilevel 40.00 01/30/20 12:00 93 NIV Bilevel 40 01/30/20 11:11 64 17 93 35.00 01/30/20 10:00 67 121/70 (87) 93 Nasal Cannula 4.00 01/30/20 09:07 67 98 Nasal Cannula 4.00 01/30/20 08:00 91 Nasal Cannula 5.00 01/30/20 08:00 36.6 01/30/20 08:00 59 106/71 (83) 98 Nasal Cannula 6.00 01/30/20 07:28 92 Nasal Cannula 6.00 01/30/20 07:00 68 134/99 (111) 91 NIV Bilevel 35.00 01/30/20 07:00 61 01/30/20 06:53 NIV Bilevel 35.00 01/30/20 06:49 72 16 95 35.00 01/30/20 06:00 64 125/83 (97) 94 NIV Bilevel 40.00 01/30/20 05:45 61 119/83 (95) 94 NIV Bilevel 40.00 01/30/20 05:30 62 129/83 (98) 94 NIV Bilevel 40.00 01/30/20 05:15 72 122/101 (108) 94 NIV Bilevel 40.00 01/30/20 04:57 36.0 71 18 129/91 (104) 95 NIV Bilevel 40.00 01/30/20 04:57 68 17 94 40.00 01/30/20 04:55 NIV Bilevel 40 01/30/20 04:49 35.9 68 18 113/81 (88) 94 NIV Bilevel I & O 01/31/20 07:00 Intake Total 915 ml Output Total 775 ml Balance 140 ml Height & Weight Height: 5'6.00" Weight: 212lbs. 1.0oz. 96.600634by; 34.78 BMI Method:Estimated Capillary Refill: Less Than 3 Seconds Gastrointestinal: normal bowel sounds, non tender, soft Results Lab Laboratory Tests 01/29/20 23:45 01/30/20 10:00 01/30/20 11:25 Assessment/Plan Assessment/Plan Acute on chronic respiratory failure -Currently on BiPAP -Trial pt to vapotherm -Repeat labs pending -COVID is negative PNA -Continue Zosyn -Rodriguez cultures pending -Urine strep and legionella ag pending COPDAE -breathing txs add advair -Oxygen -solumedrol WESLEY ALMAGUER DO Jan 31, 2020 01:39
[2020-01-31 02:09] LABS: BASOPHILS % (AUTO) 0 % (0-10); EOSINOPHILS % (AUTO) 0 % (0-10); HEMATOCRIT 36 % (35-52); HEMOGLOBIN 11.2 G/DL (11.5-16.0); LYMPHOCYTES # (AUTO) 0.8 X 10^3 (1.0-4.0); LYMPHOCYTES % (AUTO) 10 % (12-44); MEAN CORPUSCULAR HEMOGLOBIN 29 PG (25-34); MEAN CORPUSCULAR HGB CONC 31 G/DL (32-36); MEAN CORPUSCULAR VOLUME 95 FL (80-99); MEAN PLATELET VOLUME 9.6 FL (7.4-10.4); MONOCYTES # (AUTO) 0.4 X 10^3 (0.0-1.0); MONOCYTES % (AUTO) 5 % (0-12); NEUTROPHILS % (AUTO) 85 % (42-75); PLATELET COUNT 204 10^3/uL (130-400); WHITE BLOOD COUNT 8.2 10^3/uL (4.3-11.0)
[2020-01-31] MEDS: MAGNESIUM 1 GM/100 ML IVPB 100 ML IV SCH (02:16)
[2020-01-31] MEDS: POTASSIUM CL 10MEQ/50ML IVPB 50 ML IV SCH (02:16)
[2020-01-31] MEDS: KCL 20 MEQ TAB (K-DUR) PO SCH (02:17)
[2020-01-31] MEDS: IPRATROPIUM INHALER (ATROVENT) 12.9 GM INH SCH ×6 (02:21→22:22)
[2020-01-31] MEDS: RT-ALBUTEROL INHALER HFA (VENTOLIN HFA) 18 GM IH SCH ×6 (02:21→22:22)
[2020-01-31 02:50] LABS: ALBUMIN 3.1 GM/DL (3.2-4.5); CHLORIDE 91 MMOL/L (98-107); POTASSIUM 4.2 MMOL/L (3.6-5.0); SODIUM 139 MMOL/L (135-145)
[2020-01-31 02:52] LABS: GLUCOSE 193 MG/DL (70-105)
[2020-01-31 02:53] LABS: TOTAL PROTEIN 6.4 GM/DL (6.4-8.2)
[2020-01-31 02:54] LABS: BILIRUBIN,TOTAL 0.3 MG/DL (0.1-1.0); CARBON DIOXIDE 38 MMOL/L (21-32)
[2020-01-31 02:56] LABS: ALKALINE PHOSPHATASE 99 U/L (40-136); GFR ESTIMATED > 60
[2020-01-31 02:57] LABS: BUN/CREATININE RATIO 17
[2020-01-31 02:59] LABS: ALANINE AMINOTRANSFERASE 8 U/L (0-55)
[2020-01-31 04:05] LABS: ABG BASE EXCESS 18.4 MMOL/L (-2.5-2.5); ABG OXYGEN SATURATION 95 % (94-100); ABG PCO2 70 MMHG (35-45); ABG PH 7.41 (7.37-7.43); ABG PO2 71 MMHG (79-93); ABG TCO2 46.6 MMOL/L (21.0-31.0)
[2020-01-31 04:10] LABS: ALLENS TEST YES-POS; INSPIRED O2 40%; VENTILATOR NO
[2020-01-31 04:11] LABS: PATIENT TEMP 36.2
--- NOTE | 2020-01-31 05:00 | NUR ---
PT ARRIVED ON FLOOR ACCOMPANIED BY ICU NURSE AND RT. PT BELONGINGS, INCLUDING PHONE/RN ADMISSIONS, AND CLOTHING ITEMS BROUGHT TO ROOM. PT INTRODUCED TO SURROUNDINGS, CALL LIGHT GIVEN TO PT. ASSESSMENT DONE AT THIS TIME, AGREE WITH PREVIOUS ASSESSMENT. BARRIER CREAM APPLIED TO ABD FOLDS AND BOTTOM. PT VOICES NO COMPLAINS AT THIS TIME. WILL CONTINUE TO MONITOR
[2020-01-31] MEDS: inSUlin ASPART (NovoLOG) 1 UNIT/0.01 ML (CHARGE PER UNIT) SC SCH ×4 (06:06→21:09)
[2020-01-31] MEDS: PIPERACILLIN/TAZO 4.5 GM/NS 100 ML IV SCH ×6 (06:16→22:30)
--- NOTE | 2020-01-31 07:43 | Diagnostic Imaging Report ---
EXAM: CHEST 1 VIEW, AP/PA ONLY INDICATION: Dyspnea. COMPARISON: 01/30/2020. FINDINGS: Increasing airspace opacity in the right lower lobe. Small right pleural effusion. No pneumothorax. Normal heart size and central pulmonary vascularity. No acute osseous findings. IMPRESSION: Increasing airspace opacity in the right lower lobe suspicious for pneumonitis. Stable small right pleural effusion. Dictated by: Dictated on workstation # [id number]
[2020-01-31] MEDS: FAMOTIDINE 20MG/2ML IV (PEPCID) IVP SCH (08:33)
[2020-01-31] MEDS: ENOXAPARIN 40 MG/0.4 ML (LOVENOX) SYR SC SCH (08:33)
[2020-01-31] MEDS: ASPIRIN 81 MG CHEW (CHILDREN'S ASA) PO SCH (08:33)
[2020-01-31] MEDS: LACTATED RINGERS 1,000 ML IV SCH ×3 (08:37→23:50)
--- NOTE | 2020-01-31 10:52 | History & Physical-Hospitalist ---
History of Present Illness HPI/Chief Complaint CC: Dyspnea HPI: This is a 54yoWF clinic patient of [facility] known to me from multiple hospitalizations for the same issue of dyspnea with AECOPD who continues to smoke and has severe COPD with O2 dependence. Patient was tested for COVID and was negative so she was on Dr Silva service so now the patient is on 4th floor and has transitioned to Hospitalist service. Currently she is doing better. Patient is hungry and wants regular diet and not CLD and since she has no evidence of aspiration we will advance diet. Patient denies pain. Checked meds and labs. Source: patient, RN/MD Exam Limitations: no limitations Date Seen 01/31/20 Time Seen by a Provider: 10:00 Attending Physician Leigha Lemus DO [facility]Replaced By [facility] Referring Physician Date of Admission Jan 30, 2020 at 01:50 Home Medications & Allergies Home Medications Reviewed patient Home Medication Reconciliation performed by pharmacy medication reconciliations mobile home technician and/or nursing. Patients Allergies have been reviewed. Allergies Allergies Coded Allergies NKANo Known Allergies (Unverified Allergy, Mild, 05/01/09) Past Vgukius-Otynye-Peegbl Hx Past Med/Social Hx: Reviewed Nursing Past Med/Soc Hx Patient Social History Marrital Status: single Employed/Student: unemployed Alcohol Use: Denies Use Recreational Drug Use: No Smoking Status: Current Everyday Smoker Type Used: Cigarettes 2nd Hand Smoke Exposure: Yes Recent Foreign Travel: No Contact w/other who traveled: No Recent Hopitalizations: Yes Recent Infectious Disease Expo: No Immunizations Up To Date Tetanus Booster (TDap): Unknown Pediatric: No Date of Pneumonia Vaccine: Aug 22, 2018 Date of Influenza Vaccine: Jun 12, 2019 Seasonal Allergies Seasonal Allergies: Yes Past Medical History Surgeries: Gallbladder Respiratory: COPD, Emphysema, Pneumonia, Sleep Apnea Currently Using CPAP: No Currently Using BIPAP: No Cardiac: High Cholesterol, Hypertension Sexually Transmitted Disease: No HIV/AIDS: No 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 Disorders: Denies Menopausal Endocrine: Hypothyroidsim, Diabetes, Non-Insulin dep Loss of Vision: Denies Hearing Impairment: Denies Psychosocial: Anxiety, Depression History of Blood Disorders: No Adverse Reaction to Blood Gonzalez: No Family History Reviewed Nursing Family Hx Cardiovascular disease 19 MOTHER, Onset:Unknown Diabetes mellitus 19 MOTHER, Onset:Unknown Diabetes Review of Systems Constitutional: see HPI Respiratory: cough, dyspnea on exertion Physical Exam Physical Exam Vital Signs Vital Signs - First Documented 7/11/20 7/11/20 04:49 04:55 O2 Delivery NIV Bilevel FiO2 40 Capillary Refill : Less Than 3 Seconds Height, Weight, BMI Height: 5'6.00" Weight: 212lbs. 1.0oz. 96.643677vf; 34.78 BMI Method:Estimated General Appearance: No Apparent Distress, Chronically ill Eyes: Right Eye Normal Inspection, Right Eye PERRL HEENT: PERRL/EOMI, Normal ENT Inspection, Pharynx Normal, Moist Mucous Membranes Neck: Full Range of Motion, Normal Inspection, Non Tender Respiratory: Chest Non Tender, Lungs Clear, No Respiratory Distress, Accessory Muscle Use, Decreased Breath Sounds Cardiovascular: Regular Rate, Rhythm, No Edema, No Gallop, No JVD, No Murmur, Normal Peripheral Pulses Gastrointestinal: Normal Bowel Sounds, No Organomegaly, No Pulsatile Mass, Non Tender, Soft Back: Normal Inspection, No CVA Tenderness, No Vertebral Tenderness Extremity: Normal Capillary Refill, Normal Inspection, Normal Range of Motion, Non Tender, No Calf Tenderness, No Pedal Edema Neurologic/Psychiatric: Alert, Oriented x3, No Motor/Sensory Deficits, Normal Mood/Affect, rn placement II-XII Norm as Tested Skin: Normal Color, Warm/Dry Lymphatic: No Adenopathy Results Results/Procedures Labs Laboratory Tests 01/29/20 23:45 01/30/20 10:00 01/30/20 11:25 01/31/20 01:38 Patient resulted labs reviewed. Assessment/Plan Admission Diagnosis Assessment: Respiratory failure acute on chronic AECOPD HTN DM Anxiety Smoker Plan: Steroids biPAP O2 Nebs Home meds Regular diet Admission Status: Inpatient Order (span 2 midnights) Reason for Inpatient Admission: resp failure Diagnosis/Problems Diagnosis/Problems (1) Acute and chronic respiratory failure with hypoxia Status: Acute (2) Oxygen dependent Status: Chronic (3) Hypothyroidism Status: Chronic (4) Depression Status: Chronic (5) HTN (hypertension) Status: Chronic (6) CHF (congestive heart failure) Status: Acute (7) Heavy cigarette smoker Status: Acute (8) Non-insulin treated type 2 diabetes mellitus Status: Chronic (9) JORGE L treated with BiPAP Status: Chronic (10) Respiratory failure Status: Acute (11) COPD with exacerbation Status: Acute Clinical Quality Measures DVT/VTE Risk/Contraindication: Risk Factor Score Per Nursin RFS Level Per Nursing on Admit: 4+=Very High LEIGHA LEMUS DO Jan 31, 2020 10:52
[2020-01-31] MEDS ORDERED: FAMOTIDINE 20 MG PO SCH (21:00)
[2020-01-31] MEDS ORDERED: MONTELUKAST 10 MG (SINGULAIR) TAB PO SCH (21:00)
[2020-01-31] MEDS ORDERED: glipiZIDE 5 MG (GLUCOTROL) TAB PO SCH (21:00)
[2020-02-01] MEDS: methylPREDNISolone 40 MG/ML (Solu-MEDROL) VIAL IV SCH ×2 (00:12→06:33)
[2020-02-01 00:14] VITALS: BP 137/78
[2020-02-01] MEDS: RT-ALBUTEROL INHALER HFA (VENTOLIN HFA) 18 GM IH SCH ×3 (03:00→11:17)
[2020-02-01] MEDS: IPRATROPIUM INHALER (ATROVENT) 12.9 GM INH SCH ×3 (03:00→11:17)
[2020-02-01] MEDS: LACTATED RINGERS 1,000 ML IV SCH (03:15)
[2020-02-01 04:58] VITALS: BP 136/61
[2020-02-01 05:58] LABS: BASOPHILS % (AUTO) 0 % (0-10); EOSINOPHILS % (AUTO) 0 % (0-10); HEMATOCRIT 37 % (35-52); HEMOGLOBIN 11.4 G/DL (11.5-16.0); LYMPHOCYTES # (AUTO) 0.7 X 10^3 (1.0-4.0); LYMPHOCYTES % (AUTO) 12 % (12-44); MEAN CORPUSCULAR HEMOGLOBIN 29 PG (25-34); MEAN CORPUSCULAR HGB CONC 31 G/DL (32-36); MEAN CORPUSCULAR VOLUME 95 FL (80-99); MEAN PLATELET VOLUME 9.4 FL (7.4-10.4); MONOCYTES # (AUTO) 0.2 X 10^3 (0.0-1.0); MONOCYTES % (AUTO) 4 % (0-12); NEUTROPHILS # (AUTO) 4.8 X 10^3 (1.8-7.8); NEUTROPHILS % (AUTO) 84 % (42-75); PLATELET COUNT 195 10^3/uL (130-400); RED CELL DISTRIBUTION WIDTH 16.1 % (10.0-14.5); WHITE BLOOD COUNT 5.7 10^3/uL (4.3-11.0)
[2020-02-01 06:08] LABS: POTASSIUM 4.6 MMOL/L (3.6-5.0)
[2020-02-01 06:09] LABS: CALCIUM 9.5 MG/DL (8.5-10.1)
[2020-02-01 06:14] LABS: CREATININE SERUM 1.01 MG/DL (0.60-1.30); PHOSPHORUS 2.9 MG/DL (2.3-4.7)
[2020-02-01 06:16] LABS: MAGNESIUM 2.2 MG/DL (1.6-2.4)
[2020-02-01] MEDS: POTASSIUM CL 10MEQ/50ML IVPB 50 ML IV SCH (06:17)
[2020-02-01] MEDS: KCL 20 MEQ TAB (K-DUR) PO SCH (06:18)
[2020-02-01] MEDS: MAGNESIUM 1 GM/100 ML IVPB 100 ML IV SCH (06:18)
[2020-02-01] MEDS ORDERED: LEVOTHYROXINE 100 MCG (LEVOTHROID) TAB PO SCH (06:30)
[2020-02-01] MEDS ORDERED: LEVOTHYROXINE 75 MCG (LEVOTHROID) TABLET PO SCH (06:30)
[2020-02-01] MEDS: inSUlin ASPART (NovoLOG) 1 UNIT/0.01 ML (CHARGE PER UNIT) SC SCH (06:33)
[2020-02-01] MEDS: PIPERACILLIN/TAZO 4.5 GM/NS 100 ML IV SCH ×2 (06:33)
[2020-02-01 08:00] VITALS: BP 140/69
--- NOTE | 2020-02-01 08:10 | Diagnostic Imaging Report ---
HISTORY: Dyspnea TECHNIQUE: Frontal view of the chest COMPARISON: 01/31/2020 FINDINGS: Lung volumes are large. There are persistent airspace opacities of the right lung base. No pleural effusion or pneumothorax is seen. The cardiac silhouette is stable in size. IMPRESSION: 1. Stable right basilar infiltrate. Dictated by: Dictated on workstation # [id number]
--- NOTE | 2020-02-01 08:27 | Pulmonary Progress Note ---
Subjective Time Seen by a Provider: 08:23 Subjective/Events-last exam Pt appears to be improving Sepsis Event Evaluation Height, Weight, BMI Height: 5'6.00" Weight: 212lbs. 1.0oz. 96.731188fi; 34.78 BMI Method:Estimated Focused Exam Lactate Level 01/29/20 23:45: Lactic Acid Level 1.64 Exam Exam Vital Signs Date Time Temp Pulse Resp B/P (MAP) Pulse Ox O2 Delivery O2 Flow Rate FiO2 02/01/20 06:26 92 Nasal Cannula 5.00 02/01/20 04:58 36.7 55 19 136/61 (86) 95 Nasal Cannula 6.00 02/01/20 03:28 68 20 96 40.00 02/01/20 00:14 36.0 54 18 137/78 (97) 93 Nasal Cannula 6.00 01/31/20 22:22 68 20 96 40.00 01/31/20 20:00 36.3 76 18 126/57 (80) 95 Nasal Cannula 6.00 01/31/20 19:40 Nasal Cannula 6.00 01/31/20 19:12 91 Nasal Cannula 6.00 01/31/20 16:00 35.8 75 20 125/68 (87) 94 Nasal Cannula 6.00 01/31/20 16:00 95 NIV Bilevel 40 01/31/20 14:43 91 Nasal Cannula 6.00 01/31/20 12:00 95 NIV Bilevel 40 01/31/20 12:00 36.1 59 22 135/88 (104) 92 Nasal Cannula 6.00 01/31/20 10:36 91 Nasal Cannula 6.00 I & O 02/01/20 07:00 Intake Total 4600 ml Output Total 4200 ml Balance 400 ml Height & Weight Height: 5'6.00" Weight: 212lbs. 1.0oz. 96.251367cd; 34.78 BMI Method:Estimated General Appearance: No Apparent Distress, Chronically ill HEENT: PERRL/EOMI, Normal ENT Inspection, Pharynx Normal, Moist Mucous Membranes Neck: Full Range of Motion, Normal Inspection, Non Tender Respiratory: Chest Non Tender, Lungs Clear, No Respiratory Distress, Accessory Muscle Use, Decreased Breath Sounds Cardiovascular: Regular Rate, Rhythm, No Edema, No Gallop, No JVD, No Murmur, Normal Peripheral Pulses Capillary Refill: Less Than 3 Seconds Gastrointestinal: normal bowel sounds, non tender, soft Extremity: Normal Capillary Refill, Normal Inspection, Normal Range of Motion, Non Tender, No Calf Tenderness, No Pedal Edema Neurologic/Psychiatric: Alert, Oriented x3, No Motor/Sensory Deficits, Normal Mood/Affect, laboratory sample carrier II-XII Norm as Tested Skin: Normal Color, Warm/Dry Lymphatic: No Adenopathy Results Lab Laboratory Tests 01/30/20 10:00 01/30/20 11:25 01/31/20 01:38 02/01/20 05:14 Assessment/Plan Assessment/Plan Acute on chronic respiratory failure - improving -PT is now on NC -COVID is negative PNA -Continue Zosyn -Rodriguez cultures pending -Urine strep and legionella ag pending COPDAE -breathing txs add advair -Oxygen -solumedrol -- change to prednisone taper WESLEY ALMAGUER DO Feb 01, 2020 08:27
[2020-02-01] MEDS ORDERED: METO50TA7 PO (08:53)
[2020-02-01] MEDS ORDERED: FAMOTIDINE 20 MG (PEPCID) TABLET PO SCH (09:00)
[2020-02-01] MEDS ORDERED: glipiZIDE 5 MG (GLUCOTROL) TAB PO SCH (09:00)
[2020-02-01] MEDS: ASPIRIN 81 MG CHEW (CHILDREN'S ASA) PO SCH (09:01)
[2020-02-01] MEDS: ENOXAPARIN 40 MG/0.4 ML (LOVENOX) SYR SC SCH (09:01)
--- NOTE | 2020-02-01 09:42 | NUR ---
I SPOKE WITH PATIENT, CALLED [facility] AND WENT THROUGH THE EXTERNAL MED HISTORY TO COMPLETE THE MED REC METFORMIN 500MG WAS LAST FILLED ON 12/18/19 #60/30DS. THE PAST DUE FILL WAS DOCUMENTED ON THE MED REC. ALL OTHER MEDICATIONS MATCHED UP WITH THE EXTERNAL MED HISTORY. OTC: ACETAMINOPHEN ASPIRIN FLONASE FISH OIL
--- NOTE | 2020-02-01 10:14 | Physician Query Clarification ---
PQ-Conflicting Diagnosis Admission/Discharge Admission Date: Jan 30, 2020 at 01:50 Discharge Date: Dr. Bazzi, The medical record reflects the following clinical scenario: History/Risk Factor Emphysema Acute on chronic respiratory failure with hypoxia and hypercapnia. Clinical Findings: 01/29 chest xray impression: New small pleural effusion. 01/30 chest xray impression: Increasing air space opacity in right lower lobe suspicious for pneumonitis. Stable small right pleural effusion. 01/31 chest xray impression: Stable right basilar infiltrate. Treatment: IV Zosyn 4.5gm., IV Solu Medrol 125mg., Albuterol inhalation therapy. Question: Do you agree with the impression of Pneumonia per Dr. Silva? Please document a response in Progress Note or Discharge Summary. 1. Yes 2. No 3. Other, with explanation of clinical findings 4. Clinically undetermined, no explanation for clinical findings. PHYSICIAN RESPONSE Do you agree w/Consulting Dx?: Yes Please remember a lack of response to the above will prompt a phone page by CDI/Coding staff. In responding to this query, please exercise your independent professional judgment. The purpose of this communication is to more accurately reflect the complexity of your patients condition. The fact that a question is asked does not imply that any particular answer is desired or expected. Thank you for your timely response to this clarification. Requestors name: Lashell Jeffery [facility] Phone # ext [phone] or [phone] THIS PHYSICIAN QUERY FORM IS A PERMANENT PART OF THE MEDICAL RECORD LASHELL JEFFERY Feb 01, 2020 10:14 CLAIRE BAZZI DO Feb 01, 2020 20:44
--- NOTE | 2020-02-01 10:23 | Physician Query Clarification ---
PQ-CHF Specificity Admission Date: Jan 30, 2020 at 01:50 Discharge Date: The medical record reflects the following clinical scenario: Dr. Lemus, History/Risk Factors: Acute on chronic respiratory failure with hypoxia and hypercapnia Emphysema Clinical Findings:BNP 01/28 59.1, 01/29 44.7 and 01/31 92.3. Treatment: Home medication: 40 mg Furosemide. Acute CHF documented on your problem list 01/30, but not listed on assessment. Question: Can you further specify the acuity &/or type of CHF per the clinical indicators above? Please document a response in the Progress Notes or Discharge Summary. 1. Acuity: Acute, Chronic or Acute on Chronic 2. Type: Systolic, Diastolic or Systolic & Diastolic 3. Unspecified: CHF cannot be further specified regarding type or acuity 4. Other, with explanation of clinical findings 5. Clinically undetermined, no explanation for clinical findings PHYSICIAN RESPONSE Acuity: Acute Type: Diastolic Please remember a lack of response to the above will prompt a phone page by CDI/Coding staff. In responding to this query, please exercise your independent professional judgment. The purpose of this communication is to more accurately reflect the complexity of your patients condition. The fact that a question is asked does not imply that any particular answer is desired or expected. Thank you for your timely response to this clarification. Requestors name: Lashell Jeffery [facility], [facility] Phone # ext [phone] or [phone] THIS PHYSICIAN QUERY FORM IS A PERMANENT PART OF THE MEDICAL RECORD LASHELL JEFFERY Feb 01, 2020 10:23 CLAIRE LEMUS DO Feb 01, 2020 20:44
[2020-02-01] MEDS ORDERED: PRED10TA22 PO (10:31)
[2020-02-01] MEDS ORDERED: CEFD300C3 PO (10:31)
--- NOTE | 2020-02-01 10:32 | Discharge Summary ---
Discharge Summary Hospital Course Was the Problem List Reviewed?: Yes Problems/Dx: (1) Acute and chronic respiratory failure with hypoxia Status: Acute (2) Oxygen dependent Status: Chronic (3) Hypothyroidism Status: Chronic (4) Depression Status: Chronic (5) HTN (hypertension) Status: Chronic (6) CHF (congestive heart failure) Status: Acute (7) Heavy cigarette smoker Status: Acute (8) Non-insulin treated type 2 diabetes mellitus Status: Chronic (9) JORGE L treated with BiPAP Status: Chronic (10) Respiratory failure Status: Acute (11) COPD with exacerbation Status: Acute Hospital Course Date of Admission: Jan 30, 2020 at 01:50 Admission Diagnosis : Family Physician/Provider: [place] [place] Date of Discharge: 02/01/20 Discharge Diagnosis: Respiratory failure acute on chronic, severe COPD, current smoker Hospital Course: Hospital Course: Pt had a short hospital course. She was admitted for respiratory failure, acute exacerbation of COPD, placed on IV steroids, and IV antibiotics. Pt was swabbed for Covid and that was negative. I did assess her when she was transferred down to the 4th floor. Blood sugar was managed with insulin, and overall she was deemed stable for DC and smoking cessation due to the severity of her COPD. She already has O2 at home and will DC in improved condition but guarded considering she still continues to smoke. Labs and Pending Lab Test: Laboratory Tests 01/31/20 11:30: Glucometer 305H 01/31/20 15:32: Urine Legionella pneumophilia Ag [Pending], Streptococcus pneumoniae Antigen [Pending] 01/31/20 15:55: Glucometer 293H 01/31/20 20:25: Glucometer 283H 02/01/20 05:13: Glucometer 239H 02/01/20 05:14: White Blood Count 5.7, Red Blood Count 3.93L, Hemoglobin 11.4L, Hematocrit 37, Mean Corpuscular Volume 95, Mean Corpuscular Hemoglobin 29, Mean Corpuscular Hemoglobin Concent 31L, Red Cell Distribution Width 16.1H, Platelet Count 195, Mean Platelet Volume 9.4, Neutrophils (%) (Auto) 84H, Lymphocytes (%) (Auto) 12, Monocytes (%) (Auto) 4, Eosinophils (%) (Auto) 0, Basophils (%) (Auto) 0, Neutrophils # (Auto) 4.8, Lymphocytes # (Auto) 0.7L, Monocytes # (Auto) 0.2, Eosinophils # (Auto) 0.0, Basophils # (Auto) 0.0, Sodium Level 140, Potassium Level 4.6, Chloride Level 94L, Carbon Dioxide Level 34H, Anion Gap 12, Blood Urea Nitrogen 18, Creatinine 1.01, Estimat Glomerular Filtration Rate 57, BUN/Creatinine Ratio 18, Glucose Level 225H, Calcium Level 9.5, Phosphorus Level 2.9, Magnesium Level 2.2, B-Type Natriuretic Peptide 92.3 Microbiology 01/30/20 MRSA Screen - Final, Complete 01/30/20 Urine Culture - Final, Complete NO GROWTH 01/30/20 Blood Culture - Preliminary, Resulted No growth Home Meds Active Prednisone 10 Mg Tab.ds.pk 10 Mg PO DAILY Take 6 tabs(60mg)daily,decrease by 1 tab(10MG)daily. Cefdinir 300 Mg Capsule 300 Mg PO BID Reported Metoprolol Succinate 50 Mg Tab.er.24h 50 Mg PO DAILY Heartburn Relief (Famotidine) 10 Mg Tablet 20 Mg PO BID Tylenol Extra Strength (Acetaminophen) 500 Mg Tablet 1,500 Mg PO Q8H PRN Aspirin 81 Mg Tab.chew 81 Mg PO DAILY Glipizide 5 Mg Tablet 5 Mg PO HS Glipizide 5 Mg Tablet 10 Mg PO DAILY TAKES 2 (5MG) TABS Fluticasone-Salmeterol 250-50 (Fluticasone Propion/Salmeterol) 1 Each Blst.w.dev 1 Puff INH BID [place]-3 Fish Oil 1,000 mg Sftg ([place]-3/Dha/Epa/Fish Oil) 1 Each Capsule 2,000 Mg PO DAILY Albuterol Sulfate 2.5 Mg/3 Ml Vial.neb 3 Ml NEB Q4-6 H PRN Montelukast Sodium 10 Mg Tablet 10 Mg PO HS Loratadine 10 Mg Tablet 10 Mg PO DAILY PRN Metformin HCl 500 Mg Tablet 500 Mg PO BID LAST FILLED 12/18/19 #60/30 DAY SUPPLY Levothyroxine Sodium 175 Mcg Tablet 175 Mcg PO DAILY Fluticasone Propionate 16 Gm [place].susp 2 [place] NS DAILY PRN Atorvastatin Calcium 10 Mg Tablet 10 Mg PO DAILY Potassium Chloride 10 Meq Tab.er.prt 10 Meq PO DAILY Furosemide 40 Mg Tablet 40 Mg PO DAILY Proair Hfa (Albuterol Sulfate) 1 Puff Puff 2 Puff INH Q6H PRN Spiriva (Tiotropium [place]) 1 Inh Aerp 1 Cap INH 1300 PRN Paroxetine HCl 40 Mg Tablet 40 Mg PO 1500 Assessment/Pt Instructions [facility] in 1 week Discharge Planning: <30 minutes discharge planning Discharge Instructions Discharge Diet: No Restrictions, Regular Diet Activity as Tolerated: Yes Discharge Physical Examination Vital Signs Vital Signs Date Time Temp Pulse Resp B/P (MAP) Pulse Ox O2 Delivery O2 Flow Rate FiO2 02/01/20 08:00 36.1 81 20 140/69 (92) 90 Nasal Cannula 6.00 01/31/20 16:00 40 General Appearance: No Apparent Distress, WD/WN, Chronically ill Respiratory: Other (decreased breath sounds) Neurologic/Psychiatric: Alert, Oriented x3 Allergies: Coded Allergies: NKANo Known Allergies (Unverified Allergy, Mild, 05/01/09) Discharge Summary Date of Admission Jan 30, 2020 at 01:50 Date of Discharge Discharge Date: Feb 01, 2020 Admission Diagnosis Assessment: Respiratory failure acute on chronic AECOPD HTN DM Anxiety Smoker Plan: Steroids biPAP O2 Nebs Home meds Regular diet Discharge Diagnosis (1) Acute and chronic respiratory failure with hypoxia Status: Acute (2) Oxygen dependent Status: Chronic (3) Hypothyroidism Status: Chronic (4) Depression Status: Chronic (5) HTN (hypertension) Status: Chronic (6) CHF (congestive heart failure) Status: Acute (7) Heavy cigarette smoker Status: Acute (8) Non-insulin treated type 2 diabetes mellitus Status: Chronic (9) JORGE L treated with BiPAP Status: Chronic (10) Respiratory failure Status: Acute (11) COPD with exacerbation Status: Acute Clinical Quality Measures DVT/VTE Risk/Contraindication: Risk Factor Score Per Nursin RFS Level Per Nursing on Admit: 4+=Very High CLAIRE BAZZI DO Feb 01, 2020 10:32
--- NOTE | 2020-02-01 10:46 | NUR ---
CM/SS visited with the patient for discharge planning. Plan: The patient will return home with transportation from her daughter. According to the patient, at home she is wearing 5L continuous and is currently at her baseline. She states that she is ready to get out of here as fast as she can. CM/SS informed her that the physician is working on discharge. DME: The patient is a client of [facility]. This is where she gets her oxygen, concentrator, and CPAP. Home health: None. The patient states that she lives with her Uncle and reports she has everything she needs at home. No further needs.
[2020-02-01 12:00] VITALS: BP 140/69
[2020-02-01] MEDS ORDERED: predniSONE 10 MG TAB PO SCH (12:00)
--- NOTE | 2020-02-01 12:00 | NUR ---
SAMPSON CEVALLOS demonstrates understanding of discharge instructions and accurately returns instructions upon questioning. Copy of Post-Discharge Instructions given to pt. SAMPSON CEVALLOS is able to manage continuing needs after discharge. Patients belongings returned to pt. Patient discharged from [facility] on 02/01/20 at 1200 . SAMPSON CEVALLOS left floor via w/c, accompanied by staff and daughter.
== END 2020-02-01 12:00 | disposition home or self-care (01) | DRG 189 ==
LOC: EDUNIT# 23:28 → ER 23:30 → ICU 01-30 01:50 → 4TH 01-31 04:41
PROVIDERS: ADMIT Internal Medicine; ATTEND Internal Medicine
DX: J96.22 Acute and chronic respiratory failure with hypercapnia (principal); J18.9 Pneumonia, unspecified organism; I50.31 Acute diastolic (congestive) heart failure; J96.21 Acute and chronic respiratory failure with hypoxia; J43.9 Emphysema, unspecified; G47.33 Obstructive sleep apnea (adult) (pediatric); F17.210 Nicotine dependence, cigarettes, uncomplicated; E78.00 Pure hypercholesterolemia, unspecified; I11.0 Hypertensive heart disease with heart failure; E03.9 Hypothyroidism, unspecified; E11.9 Type 2 diabetes mellitus without complications; F41.9 Anxiety disorder, unspecified; F32.9 Major depressive disorder, single episode, unspecified
CPT/HCPCS: 36415; 36600; 51702; 71045; 80048; 80053; 81000; 82805; 82962; 83605; 83735; 83880; 84100; 84145; 85007; 85025; 85027; 85610; 85730; 86141; 87040; 87081; 87088; 87449; 87635; 87899; 94640; 94660

== ENCOUNTER 2020-02-15 16:02 | Inpatient (IN) | payer MEDICAID ==
[2020-02-15] VITALS (12 sets, daily range): BP systolic 74–166; BP diastolic 40–102
[~2020-02-15] VITALS: Ht 167 cm; Wt 101.3 kg
[2020-02-15] MEDS ORDERED: ACETAMINOPHEN 500 MG TAB (TYLENOL) ONE (16:18)
[2020-02-15] MEDS ORDERED: IBUPROFEN 800 MG (MOTRIN) TAB PO ONE ×2 (16:18→16:30)
[2020-02-15] MEDS ORDERED: ONDANSETRON 4 MG/2 ML (SDV) Z0FRAN ONE (16:22)
[2020-02-15 16:29] LABS: BASOPHILS % (AUTO) 0 % (0-10); EOSINOPHILS % (AUTO) 0 % (0-10); HEMATOCRIT 45 % (35-52); HEMOGLOBIN 13.7 G/DL (11.5-16.0); LYMPHOCYTES # (AUTO) 1.1 X 10^3 (1.0-4.0); LYMPHOCYTES % (AUTO) 5 % (12-44); MEAN CORPUSCULAR HEMOGLOBIN 29 PG (25-34); MEAN CORPUSCULAR HGB CONC 31 G/DL (32-36); MEAN CORPUSCULAR VOLUME 96 FL (80-99); MEAN PLATELET VOLUME 9.8 FL (7.4-10.4); MONOCYTES # (AUTO) 0.8 X 10^3 (0.0-1.0); MONOCYTES % (AUTO) 4 % (0-12); NEUTROPHILS # (AUTO) 18.9 X 10^3 (1.8-7.8); NEUTROPHILS % (AUTO) 91 % (42-75); PLATELET COUNT 189 10^3/uL (130-400); WHITE BLOOD COUNT 20.8 10^3/uL (4.3-11.0)
[2020-02-15] MEDS ORDERED: ACETAMINOPHEN 500 MG TAB (TYLENOL) PO ONE (16:30)
[2020-02-15] MEDS ORDERED: RT-ALBUTEROL/IPRATROPIUM 3 ML (DUONEB) VIAL ONE ×2 (16:35→16:45)
[2020-02-15 16:38] LABS: ABG BASE EXCESS 16.9 MMOL/L (-2.5-2.5); ABG OXYGEN SATURATION 97 % (94-100); ABG PO2 100 MMHG (79-93); ABG TCO2 46.4 MMOL/L (21.0-31.0)
[2020-02-15 16:39] LABS: ALBUMIN 3.8 GM/DL (3.2-4.5); POTASSIUM 5.6 MMOL/L (3.6-5.0)
[2020-02-15 16:40] LABS: CALCIUM 10.1 MG/DL (8.5-10.1)
[2020-02-15 16:41] LABS: TOTAL PROTEIN 7.4 GM/DL (6.4-8.2)
[2020-02-15 16:43] LABS: ABG PCO2 99 MMHG (35-45); ABG PH 7.28 (7.37-7.43); ALLENS TEST YES-POS; INSPIRED O2 RA; VENTILATOR NO
[2020-02-15 16:43] LABS: BILIRUBIN,TOTAL 0.5 MG/DL (0.1-1.0)
[2020-02-15 16:44] LABS: PATIENT TEMP 103.1
[2020-02-15 16:45] LABS: CREATININE SERUM 1.11 MG/DL (0.60-1.30)
[2020-02-15] MEDS ORDERED: [UNRECOGNIZED DRUG - OTHER] ONE (16:45)
[2020-02-15] MEDS ORDERED: methylPREDNISolone 125 MG (Solu-MEDROL) VIAL IV STA (16:49)
--- NOTE | 2020-02-15 16:57 | ED General ---
General Chief Complaint: Respiratory Problems Stated Complaint: HX COPD/SOB/VOMITING Nursing Triage Note: pATIENT TO er ROOM 10 VIA WHEELCHAIR WITH HOME OXYGEN AT 5 LPM. PATIENT STATES SHE HAS BEEN SHORT OF BREATH TODAY AND VOMITING STARTED JUST PRIOR TO ARRIVAL. PATIENT IS HOT TO TOUCH WITH FEVER OF 10.1. PATIENT DENIES BEING AROUND ANYONE SICK. SHE STATES SHE WAS SEEN HERE 3 WEEKS AGO WITH SIMILAR SYMPTOMS AND HAD A NEGATIVE COVID SWAB. PATIENT IN OBVIOUS RESPIRATORY DISTRESS. PATIENT HAS JERKY MOTIONS PRESENT TO BODY. PATIENT STATES SHE WEARS O2 AT 5 LPM ALL TIMES AND WEARS CPAP AT NIGHTTIME. Nursing Sepsis Screen: Possible Sepsis Risk Source of Information: Patient Exam Limitations: No Limitations History of Present Illness Date Seen by Provider: Feb 15, 2020 Time Seen by Provider: 16:19 Initial Comments Report of shortness of air today as well as vomiting. Presents with a fever. Similar presentation 3 weeks ago and noted to have pneumonia. Does have long- standing history of COPD and patient does continue to smoke some. She is curren tly quite dyspneic. She is not moving air well. Denies getting out and denies any contact with COVID 19 at home or in the community. This occurred similarly 3 weeks ago with same presentation and negative COVID swab. She tried her inhaler at home and that did not work. Presents with rather significant dyspnea and jerking movements of the arms and body. Does appear quite fatigued. Timing/Duration: 12-24 Hours Severity: Moderate, Severe Associated Systoms: No Chest Pain; Cough, Fever/Chills, Nausea/Vomiting, Shortness of Air, Weakness Allergies and Home Medications Allergies Coded Allergies: NKANo Known Allergies (Unverified Allergy, Mild, 05/01/09) Home Medications Acetaminophen 500 Mg Tablet, 1,500 MG PO Q8H PRN for PAIN-MILD (1-4), (Reported) Albuterol Sulfate 1 Puff Puff, 2 PUFF INH Q6H PRN for SHORTNESS OF BREATH, (Reported) Albuterol Sulfate 2.5 Mg/3 Ml Vial.neb, 3 ML NEB Q4-6 H PRN for SHORTNESS OF BREATH, (Reported) Aspirin 81 Mg Tab.chew, 81 MG PO DAILY, (Reported) Atorvastatin Calcium 10 Mg Tablet, 10 MG PO DAILY, (Reported) Cefdinir 300 Mg Capsule, 300 MG PO BID Prescribed by: CLAIRE BAZZI on 02/01/20 1031 Famotidine 10 Mg Tablet, 20 MG PO BID, (Reported) Fluticasone Propion/Salmeterol 1 Each Blst.w.dev, 1 PUFF INH BID, (Reported) Fluticasone Propionate 16 Gm [place].susp, 2 SPRAY NS DAILY PRN for CONGESTION, (Reported) Furosemide 40 Mg Tablet, 40 MG PO DAILY, (Reported) Glipizide 5 Mg Tablet, 10 MG PO DAILY, (Reported) TAKES 2 (5MG) TABS Glipizide 5 Mg Tablet, 5 MG PO HS, (Reported) Levothyroxine Sodium 175 Mcg Tablet, 175 MCG PO DAILY, (Reported) Loratadine 10 Mg Tablet, 10 MG PO DAILY PRN for AALLERGY SYMPTOMS, (Reported) Metformin HCl 500 Mg Tablet, 500 MG PO BID, (Reported) LAST FILLED 12/18/19 #60/30 DAY SUPPLY Metoprolol Succinate 50 Mg Tab.er.24h, 50 MG PO DAILY, (Reported) Montelukast Sodium 10 Mg Tablet, 10 MG PO HS, (Reported) [place]-3/Dha/Epa/Fish Oil 1 Each Capsule, 2,000 MG PO DAILY, (Reported) Paroxetine HCl 40 Mg Tablet, 40 MG PO 1500, (Reported) Potassium Chloride 10 Meq Tab.er.prt, 10 MEQ PO DAILY, (Reported) Prednisone 10 Mg Tab.ds.pk, 10 MG PO DAILY Take 6 tabs(60mg)daily,decrease by 1 tab(10MG)daily. Prescribed by: CLAIRE BAZZI on 02/01/20 1031 Tiotropium [place] 1 Inh Aerp, 1 CAP INH 1300 PRN for SHORTNESS OF BREATH, (Reported) Patient Home Medication List Home Medication List Reviewed: Yes Review of Systems Review of Systems Constitutional: see HPI; No chills, No fever EENTM: no symptoms reported Respiratory: see HPI, cough, dyspnea on exertion, short of breath, wheezing Cardiovascular: No chest pain, No edema Gastrointestinal: No abdominal pain; nausea, vomiting Genitourinary: no symptoms reported Musculoskeletal: no symptoms reported Skin: no symptoms reported Psychiatric/Neurological: See HPI Hematologic/Lymphatic: No Symptoms Reported All Other Systems Reviewed Negative Unless Noted: Yes Past Tkvrsbn-Uulhjs-Pxytbh Hx Past Med/Social Hx: Reviewed Nursing Past Med/Soc Hx Patient Social History Alcohol Use: Denies Use Recreational Drug Use: No Smoking Status: Current Everyday Smoker Type Used: Cigarettes 2nd Hand Smoke Exposure: Yes Recent Foreign Travel: No Contact w/Someone Who Travel: No Recent Infectious Disease Expo: No Recent Hopitalizations: Yes Physical Abuse: No Sexual Abuse: No Mistreated: No Fear: No Immunizations Up To Date Tetanus Booster (TDap): Unknown PED Vaccines UTD: No Date of Pneumonia Vaccine: Aug 22, 2018 Date of Influenza Vaccine: Jun 12, 2019 Seasonal Allergies Seasonal Allergies: Yes Past Medical History Surgeries: Yes Gallbladder Respiratory: Yes (O2 DEPENDENT AT 5L/NC) Pneumonia, COPD Currently Using CPAP: Yes Currently Using BIPAP: No Cardiac: Yes High Cholesterol, Hypertension Neurological: No 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 Disorders: Denies [employer] History: Menopausal Sexually Transmitted Disease: No HIV/AIDS: No Genitourinary: No Gastrointestinal: No Musculoskeletal: No Endocrine: Yes Hypothyroidsim, Diabetes, Non-Insulin dep HEENT: No Loss of Vision: Denies Hearing Impairment: Denies Cancer: No Psychosocial: Yes Anxiety, Depression Integumentary: No Blood Disorders: No Adverse Reaction/Blood Tranf: No Family Medical History Reviewed Nursing Family Hx Cardiovascular disease 19 MOTHER, Onset:Unknown Diabetes mellitus 19 MOTHER, Onset:Unknown Diabetes Physical Exam-Suspected Sepsis Physical Exam Vital Signs Vital Signs - First Documented 02/15/20 16:05 Temp 39.5 Pulse 130 Resp 30 B/P (MAP) 156/98 (117) Pulse Ox 92 O2 Delivery Nasal Cannula O2 Flow Rate 5.00 Capillary Refill : Less Than 3 Seconds Blood Pressure Mean: 117 Height, Weight, BMI Height: 5'6.00" Weight: 212lbs. 1.0oz. 96.608681tb; 35.00 BMI Method:Estimated General Appearance: Chronically ill, Moderate Distress HEENT: PERRL/EOMI, Pharynx Normal Neck: Non Tender, Supple Respiratory: Decreased Breath Sounds, Respiratory Distress Cardiovascular: No Murmur, Tachycardia Gastrointestinal: Non Tender, Soft Back: Normal Inspection, No CVA Tenderness, No Vertebral Tenderness Extremity: Normal Range of Motion, Non Tender Neurologic/Psychiatric: Alert, Oriented x3 Skin: normal color, warm/dry Focused Exam Lactate Level 02/15/20 16:17: Lactic Acid Level 2.68*H Lactic Acid Level Laboratory Tests Test 02/15/20 16:17 Lactic Acid Level 2.68 MMOL/L (0.50-2.00) *H Procedures/Interventions Date of ETT Placement: Sep 11, 2019 Time of ETT Placement: 2300 Progress/Results/Core Measures Suspected Sepsis Recent Fever Within 48 Hours: Yes Infection Criteria Present: Suspected New Infection New/Unexplained Altered Menta: No Sepsis Screen: Possible Sepsis Risk SIRS Temperature: Pulse: 118 Respiratory Rate: 28 Laboratory Tests 02/15/20 16:17: White Blood Count 20.8H Blood Pressure 151 /94 Mean: 117 02/15/20 16:17: Lactic Acid Level 2.68*H Laboratory Tests 02/15/20 16:17: Creatinine 1.11, Platelet Count 189, Total Bilirubin 0.5 Results/Orders Lab Results Laboratory Tests Test 02/15/20 16:17 02/15/20 16:30 02/15/20 17:10 Range/Units White Blood Count 20.8 H 4.3-11.0 10^3/uL Red Blood Count 4.66 4.35-5.85 10^6/uL Hemoglobin 13.7 11.5-16.0 G/DL Hematocrit 45 35-52 % Mean Corpuscular Volume 96 80-99 FL Mean Corpuscular Hemoglobin 29 25-34 PG Mean Corpuscular Hemoglobin Concent 31 L 32-36 G/DL Red Cell Distribution Width 16.0 H 10.0-14.5 % Platelet Count 189 130-400 10^3/uL Mean Platelet Volume 9.8 7.4-10.4 FL Neutrophils (%) (Auto) 91 H 42-75 % Lymphocytes (%) (Auto) 5 L 12-44 % Monocytes (%) (Auto) 4 0-12 % Eosinophils (%) (Auto) 0 0-10 % Basophils (%) (Auto) 0 0-10 % Neutrophils # (Auto) 18.9 H 1.8-7.8 X 10^3 Lymphocytes # (Auto) 1.1 1.0-4.0 X 10^3 Monocytes # (Auto) 0.8 0.0-1.0 X 10^3 Eosinophils # (Auto) 0.0 0.0-0.3 10^3/uL Basophils # (Auto) 0.0 0.0-0.1 10^3/uL Neutrophils % (Manual) 84 % Lymphocytes % (Manual) 6 % Monocytes % (Manual) 4 % Band Neutrophils 6 % Blood Morphology Comment NORMAL Sodium Level 134 L 135-145 MMOL/L Potassium Level 5.6 H 3.6-5.0 MMOL/L Chloride Level 84 L 98-107 MMOL/L Carbon Dioxide Level 38 H 21-32 MMOL/L Anion Gap 12 5-14 MMOL/L Blood Urea Nitrogen 15 7-18 MG/DL Creatinine 1.11 0.60-1.30 MG/DL Estimat Glomerular Filtration Rate 51 BUN/Creatinine Ratio 14 Glucose Level 400 H 70-105 MG/DL Lactic Acid Level 2.68 *H 0.50-2.00 MMOL/L Calcium Level 10.1 8.5-10.1 MG/DL Corrected Calcium 10.3 H 8.5-10.1 MG/DL Total Bilirubin 0.5 0.1-1.0 MG/DL Aspartate Amino Transf (AST/SGOT) 13 5-34 U/L Alanine Aminotransferase (ALT/SGPT) 12 0-55 U/L Alkaline Phosphatase 126 40-136 U/L C-Reactive Protein High Sensitivity 8.72 H 0.00-0.50 MG/DL B-Type Natriuretic Peptide 18.4 <100.0 PG/ML Total Protein 7.4 6.4-8.2 GM/DL Albumin 3.8 3.2-4.5 GM/DL Procalcitonin 0.13 H <0.10 NG/ML Blood Gas Puncture Site UNK RR Blood Gas Patient Temperature 103.1 39.5 Arterial Blood pH 7.28 *L 7.30 *L 7.37-7.43 Arterial Blood Partial Pressure CO2 99 *H 97 *H 35-45 MMHG Arterial Blood Partial Pressure O2 100 H 93 79-93 MMHG Arterial Blood HCO3 44 *H 45 *H 23-27 MMOL/L Arterial Blood Total CO2 46.4 H 47.2 H 21.0-31.0 MMOL/L Arterial Blood Oxygen Saturation 97 96 94-100 % Arterial Blood Base Excess 16.9 H 17.9 H -2.5-2.5 MMOL/L Da Test YES-POS YES-POS Blood Gas Ventilator Setting NO NO Blood Gas Inspired Oxygen RA 50% My Orders Orders - SONAL ELMORE MD Hs C Reactive Protein (02/15/20 16:20) Procalcitonin (Pct) (02/15/20 16:20) Acetaminophen Tablet (Tylenol Tablet) (02/15/20 16:18) Ibuprofen Tablet (Motrin Tablet) (02/15/20 16:18) Dexamethasone Injection (Decadron Inject (02/15/20 16:45) Albuterol/Ipra Inhalation Soln (Duoneb I (02/15/20 16:45) Methylprednisolone Sod Succ (Solu-Medrol (02/15/20 16:49) Ondansetron Injection (Zofran Injectio (02/15/20 17:15) Arterial Blood Gas (02/15/20 17:11) Arterial Blood Draw (02/15/20 ) Albuterol Pre-Mix Nebs (Rt) (Proventil (02/15/20 17:24) Piperacillin Sodium/Tazobactam (Zosyn Vi (02/15/20 17:45) Vancomycin Injection (Vancomycin Injecti (02/15/20 17:45) Ns Iv 1000 Ml (Sodium Chloride 0.9%) (02/15/20 17:34) Medications Given in ED Current Medications Medications Dose Ordered Sig/Jeana Route Start Time Stop Time Status Last Admin Dose Admin Acetaminophen 1,000 mg ONCE ONCE PO 02/15/20 16:30 02/15/20 16:31 DC 02/15/20 16:58 1,000 MG Albuterol Sulfate 2.5 mg STK-MED ONCE .ROUTE 02/15/20 17:24 02/15/20 17:27 DC 02/15/20 17:28 5 MG Albuterol/ Ipratropium 3 ml STK-MED ONCE .ROUTE 02/15/20 16:35 02/15/20 16:38 DC 02/15/20 16:41 3 ML Albuterol/ Ipratropium 3 ml STK-MED ONCE .ROUTE 02/15/20 16:45 02/15/20 16:48 DC 02/15/20 16:50 3 ML Ibuprofen 800 mg ONCE ONCE PO 02/15/20 16:30 02/15/20 16:31 DC 02/15/20 16:58 800 MG Sodium Chloride 1,000 ml @ ud STK-MED ONCE .ROUTE 02/15/20 17:34 02/15/20 17:38 DC 02/15/20 17:40 1,000 MLS/HR Vital Signs/I&O 02/15/20 02/15/20 02/15/2020 16:05 16:41 16:51 17:28 Temp 39.5 Pulse 130 118 126 120 Resp 30 28 26 20 B/P (MAP) 156/98 (117) Pulse Ox 92 98 97 97 O2 Delivery Nasal Cannula O2 Flow Rate 5.00 70.00 50.00 50.00 Capillary Refill : Less Than 3 Seconds Blood Pressure Mean: 117 Progress Note : Progress Note Seen and evaluated. IV, labs, blood cultures and lactic acid ordered. ABG ordered. DuoNeb and albuterol nebs initiated. Patient placed on BiPAP with mild improvement. 1700: Patient is responding some to the treatments although still dyspneic. We will give Solu-Medrol 125 mg IV and recheck ABG to determine need for more protection of airway up to including intubation.. 1740: Patient placed on BiPAP and doing a little better. Repeat ABG is minimally but slightly improved. I discussed the case with Dr. Bazzi and she accepts patient for admission, inpatient status. Chest x-ray does illuminate infiltrate suggestive of pneumonia. I do not believe she has COVID-19 risk and this was not evaluated further. Dr. Bazzi agrees. Admit, inpatient status to the ICU. Patient agrees with plan. Zosyn 4.5 g IV ordered. Vancomycin 2 g IV ordered as she does have history of MRSA. Diagnostic Imaging Diagonstic Imaging: Xray Plain Films/CT/US/NM/MRI: chest Comments NAME: SAMPSON CEVALLOS [facility] REC#: [id number] PT STATUS: REG ER : 1965 PHYSICIAN: ELINA BOLDEN APRN ADMIT DATE: 02/15/20/ER Draft Date of Exam:02/15/20 CHEST 1 VIEW, AP/PA ONLY INDICATION: Dyspnea and emesis with fever. EXAMINATION: Single AP view of the chest is obtained with comparison made to study of 02/01/2020. FINDINGS: There is now an irregular masslike density adjacent to the aortic knob measuring approximately 3.4 x 1.7 cm. Given significant change since the previous study, this is likely inflammatory. Slight basilar atelectasis is again noted. There does appear to be air trapping in the upper lobes. IMPRESSION: Nodular focus adjacent to the aortic knob has developed since previous examination of two weeks earlier. This would suggest focal infiltrate, although additional radiographic follow-up is recommended to document resolution. If this finding persists, CT imaging of the chest would be useful. Dictated on workstation # [id number] Dict: 02/15/20 1724 Trans: 02/15/20 1728 [facility] [id number] Interpreted by: KIMBERLY ESPARZA MD Electronically signed by: Departure Communication (Admissions) Time/Spoke to Admitting Phy: 17:35 Impression Primary Impression: Pneumonia involving left lung Qualified Codes: J18.9 - Pneumonia, unspecified organism Additional Impression: Hypercapnic respiratory failure Qualified Codes: J96.02 - Acute respiratory failure with hypercapnia Disposition: ADMITTED INPATIENT Condition: Critical Admissions Decision to Admit Reason: Admit from ER (General) Decision to Admit/Date: Feb 15, 2020 Time/Decision to Admit Time: 17:35 Departure-Patient Inst. Referrals: [facility] (PCP/Family) Primary Care Physician SONAL ELMORE MD Feb 15, 2020 16:57
[2020-02-15 17:07] LABS: BAND NEUTROPHILS 6 %; LYMPHOCYTES % (MANUAL) 6 %; MONOCYTES % (MANUAL) 4 %; NEUTROPHILS % (MANUAL) 84 %; RBC MORPH NORMAL
[2020-02-15] MEDS ORDERED: ONDANSETRON 4 MG/2 ML (SDV) Z0FRAN IVP ONE (17:15)
[2020-02-15 17:18] LABS: ABG BASE EXCESS 17.9 MMOL/L (-2.5-2.5); ABG OXYGEN SATURATION 96 % (94-100); ABG PO2 93 MMHG (79-93); ABG TCO2 47.2 MMOL/L (21.0-31.0)
[2020-02-15 17:20] LABS: ALLENS TEST YES-POS
[2020-02-15 17:21] LABS: INSPIRED O2 50%; PATIENT TEMP 39.5; VENTILATOR NO
[2020-02-15 17:22] LABS: ABG PCO2 97 MMHG (35-45)
[2020-02-15] MEDS ORDERED: RT-ALBUTEROL SULF 2.5 MG/3 ML PRE-MIX VIAL ONE (17:24)
--- NOTE | 2020-02-15 17:29 | NUR ---
PATIENT SITTING UP IN BED. PATIENT STATES SHE IS FEELING BETTER. SHE DENIES ANY PAIN. PATIENT ON BYPAP WITH RT IN ROOM.
--- NOTE | 2020-02-15 17:29 | Diagnostic Imaging Report ---
INDICATION: Dyspnea and emesis with fever. EXAMINATION: Single AP view of the chest is obtained with comparison made to study of 02/01/2020. FINDINGS: There is now an irregular masslike density adjacent to the aortic knob measuring approximately 3.4 x 1.7 cm. Given significant change since the previous study, this is likely inflammatory. Slight basilar atelectasis is again noted. There does appear to be air trapping in the upper lobes. IMPRESSION: Nodular focus adjacent to the aortic knob has developed since previous examination of two weeks earlier. This would suggest focal infiltrate, although additional radiographic follow-up is recommended to document resolution. If this finding persists, CT imaging of the chest would be useful. Dictated by: Dictated on workstation # [id number]
[2020-02-15] MEDS ORDERED: NS IV 1000 ML 1,000 ML ONE ×2 (17:34→20:22)
[2020-02-15] MEDS ORDERED: PIPERACILLIN SODIUM/TAZOBACTAM 4.5 GM in NS (IVPB) 100 ML IV ONE (17:45)
--- NOTE | 2020-02-15 18:25 | NUR ---
PATIENT SLEEPING. PATIENT REMAINS ON BYPAP. VITAL SIGNS STABLE.
[2020-02-15] MEDS: VANCOMYCIN INJECTION 1,000 MG in NS (IVPB) 250 ML IV SCH ×2 (18:31→19:43)
[2020-02-15] MEDS ORDERED: NS (IVPB) 250 ML ONE (19:38)
[2020-02-15] MEDS ORDERED: VANCOMYCIN 1000 MG/VIAL ONE (19:38)
--- NOTE | 2020-02-15 20:17 | NUR ---
CR 1.11; CR CL > 60 (USED ADJ WT 74.7 KG); ACTUAL WT 98.8 KG; VANCO 2000 MG IV GIVEN IN ER; CONTINUE WITH VANCO 1250 MG IV Q12H; TROUGH AFTER 3RD DOSE
[2020-02-15] MEDS: NS IV 1000 ML 1,000 ML IV SCH (20:29)
[2020-02-15] MEDS: VASOPRESSIN INJECTION 20 UNIT in NORMAL SALINE 100 ML IV SCH (20:30)
[2020-02-15] MEDS ORDERED: EPINEPHrine 1 MG INJECTION 2 MG in NS (IVPB) 248 ML IV SCH (20:30)
[2020-02-15] MEDS ORDERED: CATHETER FLUSH 10 ML SYR IV PRN (20:30)
[2020-02-15] MEDS: NOREPINEPHRINE 4 MG/250 ML 250 ML IV SCH ×2 (20:30→22:03)
--- NOTE | 2020-02-15 20:56 | Consultation - Surgery ---
History of Present Illness History of Present Illness Patient Consulted On(kiki/time) 02/15/20 20:51 Time Seen by Provider: 20:41 History of Present Illness Surgery asked to consult regarding Hypotension, Sepsis, COPD, Venous Insufficiency HPI per ED: pATIENT TO er ROOM 10 VIA WHEELCHAIR WITH HOME OXYGEN AT 5 LPM. PATIENT STATES SHE HAS BEEN SHORT OF BREATH TODAY AND VOMITING STARTED JUST PRIOR TO ARRIVAL. PATIENT IS HOT TO TOUCH WITH FEVER OF 10.1. PATIENT DENIES BEING AROUND ANYONE SICK. SHE STATES SHE WAS SEEN HERE 3 WEEKS AGO WITH SIMILAR SYMPTOMS AND HAD A NEGATIVE COVID SWAB. PATIENT IN OBVIOUS RESPIRATORY DISTRESS. PATIENT HAS JERKY MOTIONS PRESENT TO BODY. PATIENT STATES SHE WEARS O2 AT 5 LPM ALL TIMES AND WEARS CPAP AT NIGHTTIME. Nursing Sepsis Screen: Possible Sepsis Risk Source of Information: Patient Exam Limitations: No Limitations History of Present Illness Date Seen by Provider: Feb 15, 2020 Time Seen by Provider: 16:19 Initial Comments Report of shortness of air today as well as vomiting. Presents with a fever. S imilar presentation 3 weeks ago and noted to have pneumonia. Does have long- standing history of COPD and patient does continue to smoke some. She is currently quite dyspneic. She is not moving air well. Denies getting out and denies any contact with COVID 19 at home or in the community. This occurred similarly 3 weeks ago with same presentation and negative COVID swab. She tried her inhaler at home and that did not work. Presents with rather significant dyspnea and jerking movements of the arms and body. Does appear quite fatigued. Timing/Duration: 12-24 Hours Severity: Moderate, Severe Associated Systoms: No Chest Pain; Cough, Fever/Chills, Nausea/Vomiting, Shortness of Air, Weakness When I came in to see pt she was lethargic and not responding to questions, even with sternal rub. Allergies and Home Medications Allergies Coded Allergies: NKANo Known Allergies (Unverified Allergy, Mild, 05/01/09) Home Medications Acetaminophen 500 Mg Tablet, 1,500 MG PO Q8H PRN for PAIN-MILD (1-4), (Reported) Albuterol Sulfate 1 Puff Puff, 2 PUFF INH Q6H PRN for SHORTNESS OF BREATH, ( Reported) Albuterol Sulfate 2.5 Mg/3 Ml Vial.neb, 3 ML NEB Q4-6 H PRN for SHORTNESS OF BREATH, (Reported) Aspirin 81 Mg Tab.chew, 81 MG PO DAILY, (Reported) Atorvastatin Calcium 10 Mg Tablet, 10 MG PO DAILY, (Reported) Cefdinir 300 Mg Capsule, 300 MG PO BID Prescribed by: CLAIRE BAZZI on 02/01/20 1031 Famotidine 10 Mg Tablet, 20 MG PO BID, (Reported) Fluticasone Propion/Salmeterol 1 Each Blst.w.dev, 1 PUFF INH BID, (Reported) Fluticasone Propionate 16 Gm [place].susp, 2 SPRAY NS DAILY PRN for CONGESTION, (Reported) Furosemide 40 Mg Tablet, 40 MG PO DAILY, (Reported) Glipizide 5 Mg Tablet, 10 MG PO DAILY, (Reported) TAKES 2 (5MG) TABS Glipizide 5 Mg Tablet, 5 MG PO HS, (Reported) Levothyroxine Sodium 175 Mcg Tablet, 175 MCG PO DAILY, (Reported) Loratadine 10 Mg Tablet, 10 MG PO DAILY PRN for AALLERGY SYMPTOMS, (Reported) Metformin HCl 500 Mg Tablet, 500 MG PO BID, (Reported) LAST FILLED 12/18/19 #60/30 DAY SUPPLY Metoprolol Succinate 50 Mg Tab.er.24h, 50 MG PO DAILY, (Reported) Montelukast Sodium 10 Mg Tablet, 10 MG PO HS, (Reported) [place]-3/Dha/Epa/Fish Oil 1 Each Capsule, 2,000 MG PO DAILY, (Reported) Paroxetine HCl 40 Mg Tablet, 40 MG PO 1500, (Reported) Potassium Chloride 10 Meq Tab.er.prt, 10 MEQ PO DAILY, (Reported) Prednisone 10 Mg Tab.ds.pk, 10 MG PO DAILY Take 6 tabs(60mg)daily,decrease by 1 tab(10MG)daily. Prescribed by: CLAIRE BAZZI on 02/01/20 1031 Tiotropium [place] 1 Inh Aerp, 1 CAP INH 1300 PRN for SHORTNESS OF BREATH, (Reported) Patient Home Medication List Home Medication List Reviewed: Yes Past Dtqcxrs-Vugxip-Gysmbc Hx Patient Social History Alcohol Use: Denies Use Recreational Drug Use: No Smoking Status: Current Everyday Smoker Type Used: Cigarettes 2nd Hand Smoke Exposure: Yes Recent Foreign Travel: No Contact w/Someone Who Travel: No Recent Infectious Disease Expo: No Recent Hopitalizations: Yes Immunizations Up To Date Tetanus Booster (TDap): Unknown PED Vaccines UTD: No Date of Pneumonia Vaccine: Aug 22, 2018 Date of Influenza Vaccine: Jun 12, 2019 Seasonal Allergies Seasonal Allergies: Yes Surgeries History of Surgeries: Yes Surgeries: Gallbladder Respiratory History of Respiratory Disorde: Yes (O2 DEPENDENT AT 5L/NC) Respiratory Disorders: Pneumonia, COPD Cardiovascular History of Cardiac Disorders: Yes Cardiac Disorders: High Cholesterol, Hypertension Neurological History of Neurological Disord: No 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 System Sexually Transmitted Disease: No HIV/AIDS: No 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 Genitourinary History of Genitourinary Disor: No Gastrointestinal History of Gastrointestinal Di: No Musculoskeletal History of Musculoskeletal Dis: No Endocrine History of Endocrine Disorders: Yes Endocrine Disorders: Hypothyroidsim, Diabetes, Non-Insulin dep HEENT History of HEENT Disorders: No Loss of Vision: Denies Hearing Impairment: Denies Cancer History of Cancer: No Psychosocial History of Psychiatric Problem: Yes Behavioral Health Disorders: Anxiety, Depression Integumentary History of Skin or Integumenta: No Blood Transfusions History of Blood Disorders: No Adverse Reaction to a Blood Tr: No Family Medical History Significant Family History: Heart Disease, Diabetes Family Medial History: Cardiovascular disease 19 MOTHER, Onset:Unknown Diabetes mellitus 19 MOTHER, Onset:Unknown Review of Systems-General ROS-Unable to Obtain: pt not responding on BiPAP Physical Exam-General Problems Physical Exam Vital Signs Vital Signs - First Documented 02/15/20 16:05 Temp 39.5 Pulse 130 Resp 30 B/P (MAP) 156/98 (117) Pulse Ox 92 O2 Delivery Nasal Cannula O2 Flow Rate 5.00 Capillary Refill : Less Than 3 Seconds General Appearance: moderate distress, obese Eyes: Bilateral Eye PERRL, Bilateral Eye EOMI HEENT: No scleral icterus (R), No scleral icterus (L) Neck: non-tender, supple Respiratory: decreased breath sounds, accessory muscle use, wheezing Cardiovascular: tachycardia, systolic murmur Gastrointestinal: soft, no organomegaly; No distended Extremities: no calf tenderness, normal capillary refill, pedal edema Neurologic/Psychiatric: other (unable to assess) Skin: normal color, warm/dry Lymphatic: no adenopathy (neck, axilla or groin) Data Review Labs Laboratory Tests 02/15/20 16:17: White Blood Count 20.8H, Red Blood Count 4.66, Hemoglobin 13.7, Hematocrit 45, Mean Corpuscular Volume 96, Mean Corpuscular Hemoglobin 29, Mean Corpuscular Hemoglobin Concent 31L, Red Cell Distribution Width 16.0H, Platelet Count 189, Mean Platelet Volume 9.8, Neutrophils (%) (Auto) 91H, Lymphocytes (%) (Auto) 5L, Monocytes (%) (Auto) 4, Eosinophils (%) (Auto) 0, Basophils (%) (Auto) 0, Neutrophils # (Auto) 18.9H, Lymphocytes # (Auto) 1.1, Monocytes # (Auto) 0.8, Eosinophils # (Auto) 0.0, Basophils # (Auto) 0.0, Neutrophils % (Manual) 84, Lymphocytes % (Manual) 6, Monocytes % (Manual) 4, Band Neutrophils 6, Blood Morphology Comment NORMAL, Sodium Level 134L, Potassium Level 5.6H, Chloride Level 84L, Carbon Dioxide Level 38H, Anion Gap 12, Blood Urea Nitrogen 15, Creatinine 1.11, Estimat Glomerular Filtration Rate 51, BUN/Creatinine Ratio 14, Glucose Level 400H, Lactic Acid Level 2.68*H, Calcium Level 10.1, Corrected Calcium 10.3H, Total Bilirubin 0.5, Aspartate Amino Transf (AST/SGOT) 13, Alanine Aminotransferase (ALT/SGPT) 12, Alkaline Phosphatase 126, C-Reactive Protein High Sensitivity 8.72H, B-Type Natriuretic Peptide 18.4, Total Protein 7.4, Albumin 3.8, Procalcitonin 0.13H 02/15/20 16:30: Blood Gas Puncture Site UNK, Blood Gas Patient Temperature 103.1, Arterial Blood pH 7.28*L, Arterial Blood Partial Pressure CO2 99*H, Arterial Blood Partial Pressure O2 100H, Arterial Blood HCO3 44*H, Arterial Blood Total CO2 46.4H, Arterial Blood Oxygen Saturation 97, Arterial Blood Base Excess 16.9H, Da Test YES-POS, Blood Gas Ventilator Setting NO, Blood Gas Inspired Oxygen RA 02/15/20 17:10: Blood Gas Puncture Site RR, Blood Gas Patient Temperature 39.5, Arterial Blood pH 7.30*L, Arterial Blood Partial Pressure CO2 97*H, Arterial Blood Partial Pressure O2 93, Arterial Blood HCO3 45*H, Arterial Blood Total CO2 47.2H, Arterial Blood Oxygen Saturation 96, Arterial Blood Base Excess 17.9H, Da Test YES-POS, Blood Gas Ventilator Setting NO, Blood Gas Inspired Oxygen 50% Assessment/Plan Assessment/Plan Assessment/Plan Hypotension Sepsis COPD Venous Insufficiency Pt is unable to maintain a BP even after fluid boluses with suspected sepsis. She will need a central line in order to get Vasopressor support. Will do this emergently as pt is unable to give consent. BALA FARRELL DO Feb 15, 2020 20:56
[2020-02-15] MEDS ORDERED: NS IV 1000 ML 1,000 ML IV SCH ×2 (21:00→22:00)
[2020-02-15 21:27] LABS: ABG OXYGEN SATURATION 94 % (94-100); ABG PO2 72 MMHG (79-93)
[2020-02-15 21:28] LABS: ABG PCO2 83 MMHG (35-45); ABG PH 7.25 (7.37-7.43)
[2020-02-15 21:29] LABS: ALLENS TEST YES-POS; INSPIRED O2 50%; PATIENT TEMP 36.1; VENTILATOR NO
--- NOTE | 2020-02-15 21:50 | Progress Note-Post Operative ---
Post-Operative Progess Note Surgeon (s)/Entertainer & Comic (s) Surgeon BALA FARRELL DO Entertainer & Comic: none Pre-Operative Diagnosis Hypotension, Sepsis, Venous Insufficiency, COPD Post-Operative Diagnosis same Procedure & Operative Findings Date of Procedure 02/15/20 Procedure Performed/Findings PROCEDURE: [Left] internal jugular central line placement using ultrasound guidance. COMPLICATIONS: None. INDICATIONS: The patient is a 54 year old female [with sepsis, hypotension, venous insufficiency and need for IV access for pressure support]. Patient understands the risks and benefits of port. This was emergent and pt unable to sign. PROCEDURE: The patient was in her bed in the ICU, was prepped and draped in the sterile fashion. A surgical pause was performed. Ultrasound was used to locate the internal jugular vein and once located anesthetic was infiltrated above it. Then advanced 18 gauge finder needle with negative inspiration and watched with US as the right internal vein was accessed. Dark nonpulsatile blood was withdrawn. The wire was inserted. US assured proper placement of the guidewire. The needle was removed. A [#11] blade scalpel was used to make an incision along the guidewire. Then advanced dilator using the seldinger technique and removed it. Next placed triple lumen over guidewire and advanced using the Seldinger technique. The guidewire was removed without difficulty. Locking ports had been placed over all 3 ports; easily aspirated and then flushed with sterile saline in each port. The central line was then sutured in place with 3-0 Silk on a Manav needle. The area was then washed and dried. Sterile dressing placed. Anesthesia Type Local lidocaine Estimated Blood Loss Estimated blood loss (mL): scant Specimens/Packing Specimens Removed none BALA FARRELL DO Feb 15, 2020 21:50
[2020-02-15] MEDS ORDERED: inSUlin ASPART (NovoLOG) 1 UNIT/0.01 ML (CHARGE PER UNIT) SC ONE (22:45)
[2020-02-15] MEDS ORDERED: DOPamine DRIP 250 ML IV PRN (23:00)
[2020-02-16] VITALS (31 sets, daily range): BP systolic 95–156; BP diastolic 43–98
[2020-02-16] MEDS ORDERED: methylPREDNISolone 40 MG/ML (Solu-MEDROL) VIAL IV SCH
[2020-02-16] MEDS: PIPERACILLIN/TAZO 4.5 GM/NS 100 ML IV SCH ×8 (00:11→23:42)
[2020-02-16] MEDS: NS IV 1000 ML 1,000 ML IV SCH (00:26)
[2020-02-16] MEDS ORDERED: inSUlin ASPART (NovoLOG) 1 UNIT/0.01 ML (CHARGE PER UNIT) SC ONE (01:45)
[2020-02-16 02:47] LABS: BASOPHILS % (AUTO) 0 % (0-10); EOSINOPHILS % (AUTO) 0 % (0-10); HEMATOCRIT 40 % (35-52); HEMOGLOBIN 12.6 G/DL (11.5-16.0); LYMPHOCYTES # (AUTO) 0.7 X 10^3 (1.0-4.0); LYMPHOCYTES % (AUTO) 3 % (12-44); MEAN CORPUSCULAR HEMOGLOBIN 30 PG (25-34); MEAN CORPUSCULAR HGB CONC 31 G/DL (32-36); MEAN CORPUSCULAR VOLUME 95 FL (80-99); MEAN PLATELET VOLUME 9.8 FL (7.4-10.4); MONOCYTES # (AUTO) 0.5 X 10^3 (0.0-1.0); MONOCYTES % (AUTO) 2 % (0-12); NEUTROPHILS # (AUTO) 23.8 X 10^3 (1.8-7.8); NEUTROPHILS % (AUTO) 95 % (42-75); PLATELET COUNT 181 10^3/uL (130-400); RED CELL DISTRIBUTION WIDTH 16.4 % (10.0-14.5)
[2020-02-16 02:48] LABS: ABG BASE EXCESS 5.5 MMOL/L (-2.5-2.5); ABG OXYGEN SATURATION 96 % (94-100); ABG PO2 77 MMHG (79-93); ABG TCO2 34.5 MMOL/L (21.0-31.0)
[2020-02-16 02:53] LABS: ABG PCO2 71 MMHG (35-45); ABG PH 7.27 (7.37-7.43)
[2020-02-16 02:57] LABS: ALLENS TEST YES-POS
[2020-02-16 02:58] LABS: INSPIRED O2 50%; PATIENT TEMP 35.9; VENTILATOR NO
[2020-02-16 02:58] LABS: POTASSIUM 4.7 MMOL/L (3.6-5.0)
[2020-02-16 02:59] LABS: CALCIUM 8.8 MG/DL (8.5-10.1)
[2020-02-16 03:04] LABS: CREATININE SERUM 1.34 MG/DL (0.60-1.30); PHOSPHORUS 2.8 MG/DL (2.3-4.7)
[2020-02-16 03:06] LABS: MAGNESIUM 1.5 MG/DL (1.6-2.4)
[2020-02-16] MEDS: NOREPINEPHRINE 4 MG/250 ML 250 ML IV SCH ×4 (03:41→18:46)
[2020-02-16] MEDS ORDERED: NS IV 1000 ML 500 ML IV ONE (03:45)
[2020-02-16] MEDS: VASOPRESSIN INJECTION 20 UNIT in NORMAL SALINE 100 ML IV SCH ×3 (04:48→21:12)
[2020-02-16] MEDS: MAGNESIUM 1 GM/100 ML IVPB 100 ML IV SCH ×3 (04:48→06:28)
[2020-02-16] MEDS: inSUlin ASPART (NovoLOG) 1 UNIT/0.01 ML (CHARGE PER UNIT) SC SCH ×6 (04:56→23:48)
--- NOTE | 2020-02-16 05:08 | Pulmonary Consultation ---
ELIANE THOMSON,MED STUDENT 02/16/20 0508: History of Present Illness History of Present Illness Date Seen by Provider: Feb 16, 2020 Time Seen by Provider: 04:50 Date of Admission 02/15/20 History of Present Illness Pt. is a 59yo female presented to [facility] ED on 02/14 c/o SOB and vomiting that started yesterday. She also reported a fever. She has a hx of COPD and reports being on 5L O2 at home at all times and wears CPAP at night. Had similar symptoms 3 weeks ago and was negative for COVID at that time. Denies sick contacts. Allergies and Home Medications Allergies Coded Allergies: NKANo Known Allergies (Unverified Allergy, Mild, 05/01/09) Home Medications Acetaminophen 500 Mg Tablet, 1,500 MG PO Q8H PRN for PAIN-MILD (1-4), (Reported) Albuterol Sulfate 1 Puff Puff, 2 PUFF INH Q6H PRN for SHORTNESS OF BREATH, (Reported) Albuterol Sulfate 2.5 Mg/3 Ml Vial.neb, 3 ML NEB Q4-6 H PRN for SHORTNESS OF BREATH, (Reported) Aspirin 81 Mg Tab.chew, 81 MG PO DAILY, (Reported) Atorvastatin Calcium 10 Mg Tablet, 10 MG PO DAILY, (Reported) Cefdinir 300 Mg Capsule, 300 MG PO BID Prescribed by: CLAIRE BAZZI on 02/01/20 1031 Famotidine 10 Mg Tablet, 20 MG PO BID, (Reported) Fluticasone Propion/Salmeterol 1 Each Blst.w.dev, 1 PUFF INH BID, (Reported) Fluticasone Propionate 16 Gm [place].susp, 2 SPRAY NS DAILY PRN for CONGESTION, (Reported) Furosemide 40 Mg Tablet, 40 MG PO DAILY, (Reported) Glipizide 5 Mg Tablet, 10 MG PO DAILY, (Reported) TAKES 2 (5MG) TABS Glipizide 5 Mg Tablet, 5 MG PO HS, (Reported) Levothyroxine Sodium 175 Mcg Tablet, 175 MCG PO DAILY, (Reported) Loratadine 10 Mg Tablet, 10 MG PO DAILY PRN for AALLERGY SYMPTOMS, (Reported) Metformin HCl 500 Mg Tablet, 500 MG PO BID, (Reported) LAST FILLED 12/18/19 #60/30 DAY SUPPLY Metoprolol Succinate 50 Mg Tab.er.24h, 50 MG PO DAILY, (Reported) Montelukast Sodium 10 Mg Tablet, 10 MG PO HS, (Reported) [place]-3/Dha/Epa/Fish Oil 1 Each Capsule, 2,000 MG PO DAILY, (Reported) Paroxetine HCl 40 Mg Tablet, 40 MG PO 1500, (Reported) Potassium Chloride 10 Meq Tab.er.prt, 10 MEQ PO DAILY, (Reported) Prednisone 10 Mg Tab.ds.pk, 10 MG PO DAILY Take 6 tabs(60mg)daily,decrease by 1 tab(10MG)daily. Prescribed by: CLAIRE BAZZI on 02/01/20 1031 Tiotropium [place] 1 Inh Aerp, 1 CAP INH 1300 PRN for SHORTNESS OF BREATH, (Reported) Past Ldrunvy-Ruvgzt-Nxgljo Hx Past Med/Social Hx: Reviewed Nursing Past Med/Soc Hx Patient Social History Alcohol Use: Denies Use Recreational Drug Use: No Smoking Status: Current Everyday Smoker Type Used: Cigarettes 2nd Hand Smoke Exposure: Yes Recent Foreign Travel: No Contact w/Someone Who Travel: No Recent Infectious Disease Expo: No Recent Hopitalizations: Yes Physical Abuse: No Sexual Abuse: No Mistreated: No Fear: No Immunizations Up To Date Tetanus Booster (TDap): Unknown PED Vaccines UTD: No Date of Pneumonia Vaccine: Aug 22, 2018 Date of Influenza Vaccine: Jun 12, 2019 Seasonal Allergies Seasonal Allergies: Yes Past Medical History Surgeries: Yes Gallbladder Respiratory: Yes (O2 DEPENDENT AT 5L/NC) Pneumonia, COPD Currently Using CPAP: Yes Currently Using BIPAP: No Cardiac: Yes High Cholesterol, Hypertension Neurological: No 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 Sexually Transmitted Disease: No HIV/AIDS: No Genitourinary: No Gastrointestinal: No Musculoskeletal: No Endocrine: Yes Hypothyroidsim, Diabetes, Non-Insulin dep HEENT: No Loss of Vision: Denies Hearing Impairment: Denies Cancer: No Psychosocial: Yes Anxiety, Depression Integumentary: No Blood Disorders: No Adverse Reaction/Blood Tranf: No Family Medical History Reviewed Nursing Family Hx Cardiovascular disease 19 MOTHER, Onset:Unknown Diabetes mellitus 19 MOTHER, Onset:Unknown Heart Disease, Diabetes Review of Systems Time Seen by Provider: 04:50 Constitutional: Fever Respiratory: Shortness of breath Sepsis Event Evaluation Height, Weight, BMI Height: 5'6.00" Weight: 212lbs. 1.0oz. [id number]; 35.78 BMI Method:Estimated Exam Exam Vital Signs Date Time Temp Pulse Resp B/P (MAP) Pulse Ox O2 Delivery O2 Flow Rate FiO2 02/16/20 04:48 53 130/66 02/16/20 04:48 53 130/66 02/16/20 04:00 53 16 130/66 (87) 96 NIV Bilevel 50.00 02/16/20 03:41 130 156/98 02/16/20 03:16 39.5 130 92 5 02/16/20 03:00 49 17 130/67 (88) 96 NIV Bilevel 50.00 02/16/20 02:45 35.9 02/16/20 02:41 50 16 97 50.00 02/16/20 02:00 53 17 111/62 (78) 97 NIV Bilevel 50.00 02/16/20 01:00 54 21 109/71 (84) 98 NIV Bilevel 50.00 02/16/20 01:00 53 02/16/20 00:00 57 25 99/63 (75) 98 NIV Bilevel 50.00 02/16/20 00:00 36.2 NIV Bilevel 50.00 02/15/20 23:02 56 18 96 50.00 02/15/20 23:00 58 18 104/59 (74) 96 NIV Bilevel 50.00 02/15/20 22:15 45 82/49 02/15/20 22:03 72 88/65 02/15/20 22:00 65 17 78/50 (59) 95 NIV Bilevel 50.00 02/15/20 21:00 67 18 79/40 (53) 95 NIV Bilevel 50.00 02/15/20 20:45 66 18 74/49 (57) 93 NIV Bilevel 50.00 02/15/20 20:30 70 20 82/46 (58) 95 NIV Bilevel 50.00 02/15/20 20:15 72 27 87/59 (68) 95 NIV Bilevel 50.00 02/15/20 20:07 87 02/15/20 20:04 NIV Bilevel 50 02/15/20 20:04 36.3 02/15/20 20:02 72 22 97 50.00 02/15/20 20:00 87/62 (70) NIV Bilevel 50.00 02/15/20 19:46 36.9 86 22 120/81 95 NIV Bilevel 50.00 02/15/20 17:28 120 20 97 50.00 02/15/20 16:51 126 26 97 50.00 02/15/20 16:41 118 28 98 70.00 02/15/20 16:05 39.5 130 30 156/98 (117) 92 Nasal Cannula 5.00 I & O 02/16/20 07:00 Intake Total 1250 ml Balance 1250 ml Height & Weight Height: 5'6.00" Weight: 212lbs. 1.0oz. [id number]; 35.78 BMI Method:Estimated General Appearance: Chronically ill, Moderate Distress HEENT: PERRL/EOMI, Pharynx Normal Neck: Non Tender, Supple Respiratory: Decreased Breath Sounds, Respiratory Distress Cardiovascular: No Murmur, Normal Peripheral Pulses, Bradycardia Capillary Refill: Less Than 3 Seconds Peripheral Pulses: 2+ Radial Pulses (R), 2+ Radial Pulses (L) Gastrointestinal: soft, no organomegaly; No distended Extremity: Normal Range of Motion, Non Tender Neurologic/Psychiatric: Alert, Oriented x3 Results Lab Laboratory Tests 02/15/20 16:17 02/16/20 02:32 WESLEY ALMAGUER DO 02/16/20 0533: History of Present Illness History of Present Illness Time Seen by Provider: 05:28 Allergies and Home Medications Allergies Coded Allergies: NKANo Known Allergies (Unverified Allergy, Mild, 05/01/09) Home Medications Acetaminophen 500 Mg Tablet, 1,500 MG PO Q8H PRN for PAIN-MILD (1-4), (Reported) Albuterol Sulfate 1 Puff Puff, 2 PUFF INH Q6H PRN for SHORTNESS OF BREATH, (Repo rted) Albuterol Sulfate 2.5 Mg/3 Ml Vial.neb, 3 ML NEB Q4-6 H PRN for SHORTNESS OF BREATH, (Reported) Aspirin 81 Mg Tab.chew, 81 MG PO DAILY, (Reported) Atorvastatin Calcium 10 Mg Tablet, 10 MG PO DAILY, (Reported) Cefdinir 300 Mg Capsule, 300 MG PO BID Prescribed by: CLAIRE BAZZI on 02/01/20 1031 Famotidine 10 Mg Tablet, 20 MG PO BID, (Reported) Fluticasone Propion/Salmeterol 1 Each Blst.w.dev, 1 PUFF INH BID, (Reported) Fluticasone Propionate 16 Gm [place].susp, 2 SPRAY NS DAILY PRN for CONGESTION, (Reported) Furosemide 40 Mg Tablet, 40 MG PO DAILY, (Reported) Glipizide 5 Mg Tablet, 10 MG PO DAILY, (Reported) TAKES 2 (5MG) TABS Glipizide 5 Mg Tablet, 5 MG PO HS, (Reported) Levothyroxine Sodium 175 Mcg Tablet, 175 MCG PO DAILY, (Reported) Loratadine 10 Mg Tablet, 10 MG PO DAILY PRN for AALLERGY SYMPTOMS, (Reported) Metformin HCl 500 Mg Tablet, 500 MG PO BID, (Reported) LAST FILLED 12/18/19 #60/30 DAY SUPPLY Metoprolol Succinate 50 Mg Tab.er.24h, 50 MG PO DAILY, (Reported) Montelukast Sodium 10 Mg Tablet, 10 MG PO HS, (Reported) [place]-3/Dha/Epa/Fish Oil 1 Each Capsule, 2,000 MG PO DAILY, (Reported) Paroxetine HCl 40 Mg Tablet, 40 MG PO 1500, (Reported) Potassium Chloride 10 Meq Tab.er.prt, 10 MEQ PO DAILY, (Reported) Prednisone 10 Mg Tab.ds.pk, 10 MG PO DAILY Take 6 tabs(60mg)daily,decrease by 1 tab(10MG)daily. Prescribed by: CLAIRE BAZZI on 02/01/20 1031 Tiotropium [place] 1 Inh Aerp, 1 CAP INH 1300 PRN for SHORTNESS OF BREATH, (Reported) Past Nqzzpsd-Qmftrl-Cwevae Hx Family Medical History Cardiovascular disease 19 MOTHER, Onset:Unknown Diabetes mellitus 19 MOTHER, Onset:Unknown Review of Systems Time Seen by Provider: 05:28 Exam Exam General Appearance: Chronically ill, Moderate Distress HEENT: PERRL/EOMI, Pharynx Normal Neck: Non Tender, Supple Respiratory: Decreased Breath Sounds, Respiratory Distress Gastrointestinal: soft Extremity: Normal Range of Motion, Non Tender Neurologic/Psychiatric: Alert, Oriented x3 Assessment/Plan Assessment/Plan Acute on chronic respiratory failure -Pt has been negative for COVID x 2 last was 01/28 -Pt is home bound -BiPAP 10/07 with RR of 16 -Repeat ABG at 11 Left pneumonia with septic shock -Currently on Levophed -Check Echo -Change Solumedrol to solucortef -Zosyn and vancomycin -IVF currently NS at 150 -- change to LR -Rodriguez cultures -Check urine strep legionella ag -Check UA intermittent bradycardia -Consult Cardiology DM II -Hold PO hypoglycemics until pt transfers to [facility] Q 4 -Add Levemir 10units HS Severe COPD with 5l/min at home JORGE L -Pt has home CPAP Current smoker -Education ELIANE THOMSON,MED STUDENT Feb 16, 2020 05:08 WESLEY ALMAGUER DO Feb 16, 2020 05:33
[2020-02-16] MEDS: KCL 20 MEQ TAB (K-DUR) PO SCH (06:28)
[2020-02-16] MEDS: POTASSIUM CL 10MEQ/50ML IVPB 50 ML IV SCH (06:28)
--- NOTE | 2020-02-16 06:29 | History & Physical-Hospitalist ---
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 She had been COVID swabbed the night before, hadn't been out or exposed to anyone in a low prevalence state so she was started on aggressive IV steroids along with BiPAP and nebulizer treatments and she really doesn't want to be intubated. Her BiPAP settings are at 16 and 12, her HR is 49, she is a bit sedated right now and white count is 25, 000. Source: patient, RN/MD Exam Limitations: no limitations Date Seen 02/16/20 Time Seen by a Provider: 10:00 Attending Physician Leigha Lemus DO [facility] [place] [place] Referring Physician Date of Admission Feb 15, 2020 at 17:40 Home Medications & Allergies Home Medications Reviewed patient Home Medication Reconciliation performed by pharmacy medication reconciliations certified veterinary technician and/or nursing. Patients Allergies have been reviewed. Allergies Allergies Coded Allergies NKANo Known Allergies (Unverified Allergy, Mild, 05/01/09) Past Atxufvy-Oomnqs-Lyivlf Hx Past Med/Social Hx: Reviewed Nursing Past Med/Soc Hx, Reviewed and Corrections made Patient Social History Marrital Status: single Employed/Student: unemployed Alcohol Use: Denies Use Recreational Drug Use: No Smoking Status: Current Everyday Smoker Type Used: Cigarettes 2nd Hand Smoke Exposure: Yes Recent Foreign Travel: No Contact w/other who traveled: No Recent Hopitalizations: Yes Recent Infectious Disease Expo: No Immunizations Up To Date Tetanus Booster (TDap): Unknown Pediatric: No Date of Pneumonia Vaccine: Aug 22, 2018 Date of Influenza Vaccine: Jun 12, 2019 Seasonal Allergies Seasonal Allergies: Yes Past Medical History Surgeries: Gallbladder Respiratory: COPD, Emphysema, Pneumonia, Sleep Apnea Currently Using CPAP: Yes Currently Using BIPAP: No Cardiac: High Cholesterol, Hypertension Sexually Transmitted Disease: No HIV/AIDS: No 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 Disorders: Denies Menopausal Endocrine: Hypothyroidsim, Diabetes, Non-Insulin dep Loss of Vision: Denies Hearing Impairment: Denies Psychosocial: Anxiety, Depression History of Blood Disorders: No Adverse Reaction to Blood Gonzalez: No Family History Reviewed Nursing Family Hx Cardiovascular disease 19 MOTHER, Onset:Unknown Diabetes mellitus 19 MOTHER, Onset:Unknown Heart Disease, Diabetes Review of Systems Constitutional: see HPI Respiratory: dyspnea on exertion Physical Exam Physical Exam Vital Signs Vital Signs - First Documented 02/15/20 02/15/20 16:05 20:04 Temp 39.5 Pulse 130 Resp 30 B/P (MAP) 156/98 (117) Pulse Ox 92 O2 Delivery Nasal Cannula O2 Flow Rate 5.00 FiO2 50 Capillary Refill : Less Than 3 Seconds Height, Weight, BMI Height: 5'6.00" Weight: 212lbs. 1.0oz. 96.812956mn; 35.78 BMI Method:Estimated General Appearance: No Apparent Distress, Chronically ill, Obese Eyes: Right Eye Normal Inspection, Right Eye PERRL HEENT: PERRL/EOMI, TMs Normal, Normal ENT Inspection, Pharynx Normal, Moist Mucous Membranes Neck: Full Range of Motion, Normal Inspection, Non Tender Respiratory: Chest Non Tender, Lungs Clear, Normal Breath Sounds, No Accessory Muscle Use, No Respiratory Distress, Decreased Breath Sounds Cardiovascular: Regular Rate, Rhythm, No Edema, No Gallop, No JVD, No Murmur, Normal Peripheral Pulses Gastrointestinal: Normal Bowel Sounds, No Organomegaly, No Pulsatile Mass, Non Tender, Soft Back: Normal Inspection, No CVA Tenderness, No Vertebral Tenderness Extremity: Normal Capillary Refill, Normal Inspection, Normal Range of Motion, Non Tender, No Calf Tenderness, No Pedal Edema Neurologic/Psychiatric: Alert, Oriented x3, No Motor/Sensory Deficits, Normal Mood/Affect Skin: Normal Color, Warm/Dry Lymphatic: No Adenopathy Results Results/Procedures Labs Laboratory Tests 02/15/20 16:17 02/16/20 02:32 Patient resulted labs reviewed. Assessment/Plan Admission Diagnosis Assessment: Acute on chronic respiratory failure End-stage COPD Current smoker Poor prognosis Plan: ICU status BIPAP Patient wants to avoid intubation Admission Status: Inpatient Order (span 2 midnights) Reason for Inpatient Admission: Severe respiratory failure Diagnosis/Problems Diagnosis/Problems (1) Acute on chronic respiratory failure with hypoxia and hypercapnia Status: Acute (2) CHF (congestive heart failure) Status: Acute (3) Hypothyroidism Status: Chronic (4) HTN (hypertension) Status: Chronic (5) Oxygen dependent Status: Chronic Clinical Quality Measures DVT/VTE Risk/Contraindication: Risk Factor Score Per Nursin RFS Level Per Nursing on Admit: 4+=Very High LEIGHA LEMUS DO Feb 16, 2020 06:29
[2020-02-16] MEDS: LACTATED RINGERS 1,000 ML IV SCH ×4 (06:45→20:18)
[2020-02-16] MEDS: HYDROCORTISONE 100 MG/2 ML (Solu-CORTEF) VIAL IV SCH ×3 (06:45→22:24)
[2020-02-16] MEDS: ENOXAPARIN 40 MG/0.4 ML (LOVENOX) SYR SC SCH (06:45)
[2020-02-16] MEDS: VANCOMYCIN 1250 MG/NS 250 ML IVPB IV SCH ×4 (06:45→18:46)
[2020-02-16 07:15] LABS: ABG BASE EXCESS 7.1 MMOL/L (-2.5-2.5); ABG OXYGEN SATURATION 94 % (94-100); ABG PO2 68 MMHG (79-93); ABG TCO2 36.4 MMOL/L (21.0-31.0)
[2020-02-16 07:19] LABS: ABG PCO2 74 MMHG (35-45); ABG PH 7.27 (7.37-7.43); ALLENS TEST YES-POS; INSPIRED O2 BIPAP 40
[2020-02-16 07:20] LABS: PATIENT TEMP 35.9; VENTILATOR NO
[2020-02-16] MEDS: RT-BUDESONIDE NEBS 0.5 MG/2ML (PULMICORT) AMP INH SCH ×2 (07:37→22:30)
[2020-02-16] MEDS: RT-ALBUTEROL/IPRATROPIUM 3 ML (DUONEB) VIAL INH SCH ×5 (07:38→22:30)
--- NOTE | 2020-02-16 08:01 | Diagnostic Imaging Report ---
EXAM: CHEST 1 VIEW, AP/PA ONLY INDICATION: Dyspnea. COMPARISON: 02/15/2020. FINDINGS: Normal heart size and central pulmonary vascularity. Left IJ CVC tip near the RA/SVC junction. Persistent perihilar consolidation bilaterally. No definite pleural effusion or pneumothorax. IMPRESSION: 1. Bilateral perihilar consolidation similar to the prior exam. 2. New left IJ CVC tip near the RA/SVC junction. Dictated by: Dictated on workstation # [id number]
--- NOTE | 2020-02-16 08:15 | NUR ---
TIMELINE NOTE BELOW: 02/15/20 @ 2039 THIS RN NOTIFIED EICU OF PATIENT'S SBP IN 70-80'S. NEW ORDER RECEIVED FOR 1L NS BOLUS, SEE EMAR. DR. DURAN WITH EICU ALSO ORDERED FOR PATIENT TO BE SWABBED FOR COVID. 02/15/20 @ [address] BAZZI OF PATIENT'S SBP IN 70-80'S WELL ORDER FOR COVID SWAB. NEW ORDER RECEIVED FROM DR. BAZZI TO DISREGARD ORDER TO SWAB PT FOR COVID. PATIENT PREVIOUSLY NEGATIVE AND SHE DOES NOT WISH TO RETEST AT THIS TIME. NEW ORDER RECEIVED TO CONSULT DR. FARRELL FOR CENTRAL LINE PLACEMENT. 02/15/20 @ 2051 THIS RN NOTIFIED EICU OF PATIENT'S INCREASING LETHARGY, PATIENT ONLY RESPONDING TO STERNAL RUB. NEW ORDER RECEIVED FOR STAT ABG. 02/15/20 @ [address] FARRELL AT BEDSIDE TO PLACE CENTRAL LINE. 02/15/20 @ 2143 THIS RN REPORTED CRITICAL ABG RESULTS TO EICU (SEE LABS) WELL DECREASED URINE OUTPUT OF 75ML. NEW ORDER RECEIVED FOR 500ML BOLUS NS, SEE EMAR. 02/15/20 @ 2210 THIS RN NOTIFIED EICU OF CRITICAL BLOOD SUGAR OF 440, NEW ORDER RECEIVED FOR 16U NOVOLOG STAT X1 NOW. 02/15/20 @ 2236 THIS RN NOTIFIED EICU OF PATIENT'S CRITICAL LACTIC ACID OF 2.76 02/16/20 @ 0029 THIS RN NOTIFIED EICU OF PATIENT'S HR SUSTAINING IN 30'S FOR APPROXIMATELY 20SECONDS, NEW ORDER RECEIVED FOR DOPAMINE GTT PRN FOR HR SUSTAINING <50. 02/16/20 @ 0043 THIS RN REPORTED CRITICAL LACTIC ACID OF 2.27 TO EICU 02/16/20 @ 0120 THIS RN NOTIFIED EICU OF CRITICAL BLOOD SUGAR OF 514, NEW ORDER RECEIVED FOR 16U NOVOLOG STAT X1 NOW. 02/16/20 @ 0301 THIS RN NOTIFIED EICU OF PATIENT'S CRITICAL ABG RESULTS: PH 7.27 AND C02 71 02/16/20 @ 0305 THIS RN NOTIFIED EICU OF PATIENT'S CRITICAL LACTIC ACID OF 2.95 AND GLUCOSE OF 501. 02/16/20 @ [address] ALMAGUER OF PATIENT'S CRITICAL LACTIC ACID OF 3.25.
[2020-02-16] MEDS ORDERED: NS (IVPB) 100 ML ONE (08:22)
--- NOTE | 2020-02-16 08:31 | Consultation-Cardiology ---
HPI-Cardiology Cardiology Consultation: Date of Consultation 02/16/20 Time Seen by a Provider: 08:15 Date of Admission 02-15-2020 Attending Physician Leigha Bazzi DO Admitting Physician Childress/Replaced By [facility] Consulting Physician Elizabeth Green MD Primary Mandrel Puller: Dr. Elena HPI: Chief Complaint: Resp failure Ms. Cevallos is a 54 year old female admitted to ICU 11 from the ED with resp failure. She is currently on Bi-pap and conversation is limited. She does report increasing SOB over the course of the last several days at home. She reports productive cough of thick sputum. No c/o CP, palpitations, LE swelling, syncope or near syncope. No c/o n/v/d. No report of fever or chills. She does report she is feeling better this morning. Review of Systems-Cardiology Review of Systems Constitutional: No chills; malaise Eyes: No vision change Ears/Nose/Throat: No epistaxis, No recent hearing loss Respiratory: As described under HPI Cardiovascular: As described under HPI Gastrointestinal: No constipation, No diarrhea, No nausea, No vomiting Genitourinary: No dysuria, No hematuria Musculoskeletal: joint pain Skin: No rash on exposed areas, No ulcerations on exposed areas Psychiatric/Neurological: No focal weakness, No syncope Hematologic: No bleeding abnormalities All Other Systems Reviewed Negative Unless Noted: Yes JHL-Hbvnsm-Enlpox Hx Patient Social History Alcohol Use: Denies Use Recreational Drug Use: No Smoking Status: Current Everyday Smoker Type Used: Cigarettes 2nd Hand Smoke Exposure: Yes Recent Foreign Travel: No Recent Infectious Disease Expo: No Hospitalization with Isolation: Denies Immunizations Up To Date Tetanus Booster (TDap): Unknown Date of Pneumonia Vaccine: Aug 22, 2018 Date of Influenza Vaccine: Jun 12, 2019 Past Medical History PMH As described under Assessment. Family Medical History Family Medical History: Reported family h/o mother having DM and CAD. Family History: Cardiovascular disease 19 MOTHER, Onset:Unknown Diabetes mellitus 19 MOTHER, Onset:Unknown Allergies and Home Medications Allergies Coded Allergies: NKANo Known Allergies (Unverified Allergy, Mild, 05/01/09) Home Medications Acetaminophen 500 Mg Tablet, 1,500 MG PO Q8H PRN for PAIN-MILD (1-4), (Reported) Albuterol Sulfate 1 Puff Puff, 2 PUFF INH Q6H PRN for SHORTNESS OF BREATH, (Reported) Albuterol Sulfate 2.5 Mg/3 Ml Vial.neb, 3 ML NEB Q4-6 H PRN for SHORTNESS OF BREATH, (Reported) Aspirin 81 Mg Tab.chew, 81 MG PO DAILY, (Reported) Atorvastatin Calcium 10 Mg Tablet, 10 MG PO DAILY, (Reported) Cefdinir 300 Mg Capsule, 300 MG PO BID Prescribed by: LEIGHA BAZZI on 02/01/20 103 Famotidine 10 Mg Tablet, 20 MG PO BID, (Reported) Fluticasone Propion/Salmeterol 1 Each Blst.w.dev, 1 PUFF INH BID, (Reported) Fluticasone Propionate 16 Gm Chadron.susp, 2 SPRAY NS DAILY PRN for CONGESTION, (Reported) Furosemide 40 Mg Tablet, 40 MG PO DAILY, (Reported) Glipizide 5 Mg Tablet, 10 MG PO DAILY, (Reported) TAKES 2 (5MG) TABS Glipizide 5 Mg Tablet, 5 MG PO HS, (Reported) Levothyroxine Sodium 175 Mcg Tablet, 175 MCG PO DAILY, (Reported) Loratadine 10 Mg Tablet, 10 MG PO DAILY PRN for AALLERGY SYMPTOMS, (Reported) Metformin HCl 500 Mg Tablet, 500 MG PO BID, (Reported) LAST FILLED 12/18/19 #60/30 DAY SUPPLY Metoprolol Succinate 50 Mg Tab.er.24h, 50 MG PO DAILY, (Reported) Montelukast Sodium 10 Mg Tablet, 10 MG PO HS, (Reported) [place]-3/Dha/Epa/Fish Oil 1 Each Capsule, 2,000 MG PO DAILY, (Reported) Paroxetine HCl 40 Mg Tablet, 40 MG PO 1500, (Reported) Potassium Chloride 10 Meq Tab.er.prt, 10 MEQ PO DAILY, (Reported) Prednisone 10 Mg Tab.ds.pk, 10 MG PO DAILY Take 6 tabs(60mg)daily,decrease by 1 tab(10MG)daily. Prescribed by: LEIGHA BAZZI on 02/01/20 103 Tiotropium [place] 1 Inh Aerp, 1 CAP INH 1300 PRN for SHORTNESS OF BREATH, (Reported) Physical Exam-Cardiology Physical Exam Vital Signs/I&O 02/16/20 02/16/20 02/16/20 02/16/20 22:00 22:27 22:30 23:00 Pulse 87 78 72 Resp 20 20 23 B/P (MAP) 127/74 (91) 134/43 (73) Pulse Ox 100 96 91 O2 Delivery Vapotherm NIV Bilevel NIV Bilevel O2 Flow Rate 25.00 40.00 40.00 40.00 80.00 02/16/20 02/17/20 02/17/20 02/17/20 23:41 00:00 00:00 01:00 Temp 36.3 Pulse 68 60 Resp 16 19 B/P (MAP) 112/67 (82) 132/79 (96) Pulse Ox 92 95 O2 Delivery NIV Bilevel NIV Bilevel NIV Bilevel O2 Flow Rate 40.00 40.00 FiO2 40 02/17/20 02/17/20 02/17/20 02/17/20 01:00 01:07 02:00 03:00 Pulse 60 61 61 55 Resp 18 17 16 B/P (MAP) 114/75 (88) 113/75 (88) Pulse Ox 95 94 95 O2 Delivery NIV Bilevel NIV Bilevel O2 Flow Rate 40.00 40.00 40.00 02/17/20 02/17/20 02/17/20 02/17/20 03:27 03:57 04:00 04:00 Temp 35.6 Pulse 70 Resp 13 B/P (MAP) 130/73 (92) Pulse Ox 95 O2 Delivery Vapotherm NIV Bilevel NIV Bilevel NIV Bilevel O2 Flow Rate 25.00 40.00 40.00 80.00 FiO2 40 02/17/20 02/17/20 02/17/20 02/17/20 05:15 05:58 06:00 06:39 Pulse 71 75 Resp 17 15 B/P (MAP) 102/62 (75) 127/71 (89) Pulse Ox 92 97 O2 Delivery NIV Bilevel Vapotherm Vapotherm Vapotherm O2 Flow Rate 40.00 25.00 25.00 25.00 75.00 75.00 60.00 02/17/20 02/17/20 06:43 07:31 Temp 36.2 Pulse Ox 96 O2 Delivery Vapotherm O2 Flow Rate 25.00 FiO2 60 02/17/20 00:00 Intake Total 3652.5 ml Output Total 1100 ml Balance 2552.5 ml Capillary Refill : Less Than 3 Seconds Constitutional: AAO x 3, well-developed, well-nourished HEENT: PERRL, hearing is well preserved Neck: No carotid bruit; carotid pulses are 2 + bilaterally Respiratory: rhonchi (scattered), other (fair air entry) Cardiovascular: regular rate-rhythm; No JVD; S1 and S2 Gastrointestinal: No tender; soft, round, audible bowel sounds Rectal: deferred Extremities: no lower extremity edema bilateral Neurologic/Psychiatric: grossly intact (moves all extremities) Skin: No rash on exposed areas, No ulcerations on exposed areas Data Review Labs Laboratory Tests 02/16/20 11:50: Blood Gas Puncture Site NA, Blood Gas Patient Temperature 36.1, Arterial Blood pH 7.32*L, Arterial Blood Partial Pressure CO2 69H, Arterial Blood Partial Pressure O2 59L, Arterial Blood HCO3 35H, Arterial Blood Total CO2 37.2H, Arterial Blood Oxygen Saturation 91L, Arterial Blood Base Excess 8.7H, Da Test NA, Blood Gas Ventilator Setting NO, Blood Gas Inspired Oxygen 50% 02/16/20 20:06: Glucometer 275H 02/16/20 23:44: Glucometer 314H 02/17/20 03:08: White Blood Count 11.2H, Red Blood Count 3.53L, Hemoglobin 10.2L, Hematocrit 34L , Mean Corpuscular Volume 96, Mean Corpuscular Hemoglobin 29, Mean Corpuscular Hemoglobin Concent 30L, Red Cell Distribution Width 16.1H, Platelet Count 149, Mean Platelet Volume 10.0, Neutrophils (%) (Auto) 90H, Lymphocytes (%) (Auto) 6L , Monocytes (%) (Auto) 4, Eosinophils (%) (Auto) 0, Basophils (%) (Auto) 0, Neutrophils # (Auto) 10.1H, Lymphocytes # (Auto) 0.7L, Monocytes # (Auto) 0.4, Eosinophils # (Auto) 0.0, Basophils # (Auto) 0.0, Sodium Level 140, Potassium Level 4.6, Chloride Level 101, Carbon Dioxide Level 33H, Anion Gap 6, Blood Urea Nitrogen 16, Creatinine 0.97, Estimat Glomerular Filtration Rate 60, BUN/Cr eatinine Ratio 16, Glucose Level 169H, Calcium Level 9.1, Phosphorus Level 1.9L, Magnesium Level 2.1, B-Type Natriuretic Peptide 182.3H 02/17/20 03:25: Blood Gas Puncture Site RIGHT RADIAL, Blood Gas Patient Temperature 35.6, Arterial Blood pH 7.38, Arterial Blood Partial Pressure CO2 60H, Arterial Blood Partial Pressure O2 63L, Arterial Blood HCO3 35H, Arterial Blood Total CO2 37.3H , Arterial Blood Oxygen Saturation 94, Arterial Blood Base Excess 9.7H, Da Test YES-POS, Blood Gas Ventilator Setting NO, Blood Gas Inspired Oxygen 40% 02/17/20 05:40: Vancomycin Level Trough 18.0 Microbiology 02/15/20 Blood Culture - Preliminary, Resulted No growth Radiology NAME: SAMPSON CEVALLOS [facility] REC#: [id number] PT STATUS: ADM IN : 1965 PHYSICIAN: LEIGHA BAZZI DO ADMIT DATE: 02/15/20/ICU Draft Date of Exam:02/16/20 CHEST 1 VIEW, AP/PA ONLY EXAM: CHEST 1 VIEW, AP/PA ONLY INDICATION: Dyspnea. COMPARISON: 02/15/2020. FINDINGS: Normal heart size and central pulmonary vascularity. Left IJ CVC tip near the RA/SVC junction. Persistent perihilar consolidation bilaterally. No definite pleural effusion or pneumothorax. IMPRESSION: 1. Bilateral perihilar consolidation similar to the prior exam. 2. New left IJ CVC tip near the RA/SVC junction. Dictated on workstation # [id number] Dict: 02/16/20 0757 Trans: 02/16/20 0801 [id number] Interpreted by: KARTIK PATEL MD Electronically signed by: A/P-Cardiology Assessment/Admission Diagnosis Acute on chronic respiratory failure with sepsis Pneumonia with sepsis - management per pulmonary services Acute on chronic exacerbation of COPD - management per pulmonary services Acute on chronic diastolic CHF Acute on chronic renal failure, CKD stage 3 Pulmonary HTN JORGE L - CPAP tx Echocardiogram done 03/09/2019 shows normal LV function, 55-65%, with mild to moderate diastolic dysfunction. Severe pulmonary hypertension, PASP approx 62 mmHg Cardiac cath of 03/11/[address] Elena showed mild CAD with a significantly elevated LVEDP DM Tobaccoism Hyperlipidemia Discussion and Recomendations Acute on chronic respiratory failure, multifactorial as noted above Pneumonia with sepsis - management per pulmonary services Acute on chronic diastolic CHF - repeat echo and treat with diuretics as indicated Hypotension likely d/t sepsis - hold antihypertensives at this time Acute on chronic renal insufficiency - monitor closely Management of diabetes per medical services Replace electrolytes as indicated Advised immediate and complete smoking cessation Further recs will be based on her hospital course We would like to thank medical/pulmonary services for this consult Clinical Quality Measures DVT/VTE Risk/Contraindication: Risk Factor Score Per Nursin RFS Level Per Nursing on Admit: 4+=Very High ANDERSON PRADO Feb 16, 2020 08:31
[2020-02-16] MEDS: PANTOPRAZOLE 40 MG (PROTONIX) VIAL IV SCH (08:41)
[2020-02-16 09:52] LABS: BILIRUBIN,URINE NEGATIVE (NEGATIVE); CLARITY,URINE CLEAR; COLOR,URINE YELLOW; GLUCOSE, URINE (UA) 2+ (NEGATIVE); KETONES,URINE NEGATIVE (NEGATIVE); LEUKOCYTE ESTERASE ,URINE NEGATIVE (NEGATIVE); NITRITE,URINE NEGATIVE (NEGATIVE); PH,URINE 5.5 (5-9); PROTEIN,URINE 1+ (NEGATIVE)
[2020-02-16 10:04] LABS: AMORPHOUS SEDIMENT,UR LARGE AMOR URATES /LPF; BACTERIA,URINE NEGATIVE /HPF; WBC,URINE RARE /HPF
--- NOTE | 2020-02-16 11:11 | Physical Therapy Progress Note ---
Therapy Progress Note Per OT, patient is currently on Bipap and will remain on this. Patient does not feel she can participate and is not medically able to participate with skilled therapy on this date per OT report. PT will attempt in aKARY Lambert PT Feb 16, 2020 11:11
--- NOTE | 2020-02-16 11:50 | Occ Therapy Progress Note ---
Therapy Progress Note OT order received, chart reviewed. Pt. on bipap. Nursing okay for OT to attempt treatment, but requests that bipap not be removed. Pt. is alert, but very difficult to understand due to bipap mask. Pt. is able to indicate that she does not feel like participating at this time. Declines attempting to sit on side of bed, or participate in UE exercises. Nursing notified. Pt. on hold at this time and OT will attempt later as time allows. 1, visit [id number] DRE MADDEN OT Feb 16, 2020 11:50
[2020-02-16 11:58] LABS: ABG BASE EXCESS 8.7 MMOL/L (-2.5-2.5); ABG OXYGEN SATURATION 91 % (94-100); ABG PCO2 69 MMHG (35-45); ABG PO2 59 MMHG (79-93); ABG TCO2 37.2 MMOL/L (21.0-31.0)
[2020-02-16 12:04] LABS: ABG PH 7.32 (7.37-7.43)
[2020-02-16 12:05] LABS: INSPIRED O2 50%; PATIENT TEMP 36.1; VENTILATOR NO
--- NOTE | 2020-02-16 16:55 | Consultation-Cardiology ---
HPI-Cardiology Cardiology Consultation: Date of Consultation 02/16/20 Time Seen by a Provider: 16:00 Date of Admission Attending Physician Leigha Bazzi DO Admitting Physician [place] Consulting Physician JENNIE ROGERS MD, MA, FACP, FACC, [facility], CCDS HPI: Chief Complaint: Reason for Cardiology consultation: Resp failure HPI Ms. Rodriguez is a 54 year old female admitted to ICU 11 from the ED with resp failure. She is currently on Bi-pap and conversation is limited. She does report increasing SOB over the course of the last several days at home. She reports productive cough of thick sputum. No c/o CP, palpitations, LE swelling, syncope or near syncope. No c/o n/v/d. No report of fever or chills. She does report she is feeling better this morning. Review of Systems-Cardiology Review of Systems Constitutional: No chills; malaise Eyes: No vision change Ears/Nose/Throat: No epistaxis, No recent hearing loss Respiratory: As described under HPI Cardiovascular: As described under HPI Gastrointestinal: No constipation, No diarrhea, No nausea, No vomiting Genitourinary: No dysuria, No hematuria Musculoskeletal: joint pain Skin: No rash on exposed areas, No ulcerations on exposed areas Psychiatric/Neurological: No focal weakness, No syncope Hematologic: No bleeding abnormalities All Other Systems Reviewed Negative Unless Noted: Yes BCY-Hwradu-Azxlda Hx Patient Social History Marrital Status: single Employed/Student: unemployed Alcohol Use: Denies Use Recreational Drug Use: No Smoking Status: Current Everyday Smoker Type Used: Cigarettes 2nd Hand Smoke Exposure: Yes Recent Foreign Travel: No Recent Infectious Disease Expo: No Hospitalization with Isolation: Denies Immunizations Up To Date Tetanus Booster (TDap): Unknown Date of Pneumonia Vaccine: Aug 22, 2018 Date of Influenza Vaccine: Jun 12, 2019 Past Medical History PMH As described under Assessment. Family Medical History Family Medical History: Reported family h/o mother having DM and CAD. Family History: Cardiovascular disease 19 MOTHER, Onset:Unknown Diabetes mellitus 19 MOTHER, Onset:Unknown Allergies and Home Medications Allergies Coded Allergies: NKANo Known Allergies (Unverified Allergy, Mild, 05/01/09) Home Medications Acetaminophen 500 Mg Tablet, 1,500 MG PO Q8H PRN for PAIN-MILD (1-4), (Reported) Albuterol Sulfate 1 Puff Puff, 2 PUFF INH Q6H PRN for SHORTNESS OF BREATH, (Reported) Albuterol Sulfate 2.5 Mg/3 Ml Vial.neb, 3 ML NEB Q4-6 H PRN for SHORTNESS OF BREATH, (Reported) Aspirin 81 Mg Tab.chew, 81 MG PO DAILY, (Reported) Atorvastatin Calcium 10 Mg Tablet, 10 MG PO DAILY, (Reported) Cefdinir 300 Mg Capsule, 300 MG PO BID Prescribed by: LEIGHA BAZZI on 02/01/20 1031 Famotidine 10 Mg Tablet, 20 MG PO BID, (Reported) Fluticasone Propion/Salmeterol 1 Each Blst.w.dev, 1 PUFF INH BID, (Reported) Fluticasone Propionate 16 Gm Parnell.susp, 2 SPRAY NS DAILY PRN for CONGESTION, (Reported) Furosemide 40 Mg Tablet, 40 MG PO DAILY, (Reported) Glipizide 5 Mg Tablet, 10 MG PO DAILY, (Reported) TAKES 2 (5MG) TABS Glipizide 5 Mg Tablet, 5 MG PO HS, (Reported) Levothyroxine Sodium 175 Mcg Tablet, 175 MCG PO DAILY, (Reported) Loratadine 10 Mg Tablet, 10 MG PO DAILY PRN for AALLERGY SYMPTOMS, (Reported) Metformin HCl 500 Mg Tablet, 500 MG PO BID, (Reported) LAST FILLED 12/18/19 #60/30 DAY SUPPLY Metoprolol Succinate 50 Mg Tab.er.24h, 50 MG PO DAILY, (Reported) Montelukast Sodium 10 Mg Tablet, 10 MG PO HS, (Reported) Blackwell-3/Dha/Epa/Fish Oil 1 Each Capsule, 2,000 MG PO DAILY, (Reported) Paroxetine HCl 40 Mg Tablet, 40 MG PO 1500, (Reported) Potassium Chloride 10 Meq Tab.er.prt, 10 MEQ PO DAILY, (Reported) Prednisone 10 Mg Tab.ds.pk, 10 MG PO DAILY Take 6 tabs(60mg)daily,decrease by 1 tab(10MG)daily. Prescribed by: LEIGHA BAZZI on 02/01/20 1031 Tiotropium Wilmot 1 Inh Aerp, 1 CAP INH 1300 PRN for SHORTNESS OF BREATH, (Reported) Patient Home Medication List Home Medication List Reviewed: Yes Physical Exam-Cardiology Physical Exam Vital Signs/I&O 02/16/20 02/16/20 02/16/2020 05:00 06:00 06:48 07:00 Pulse 70 56 73 Resp 16 15 B/P (MAP) 116/59 (78) 112/81 (91) Pulse Ox 93 98 O2 Delivery NIV Bilevel NIV Bilevel NIV Bilevel O2 Flow Rate 50.00 50.00 40.00 02/16/20 02/16/20 02/16/20 02/16/20 07:00 07:38 07:44 08:00 Pulse 65 58 51 Resp 20 17 15 B/P (MAP) 110/64 (79) 108/73 (85) Pulse Ox 95 95 90 O2 Delivery NIV Bilevel NIV Bilevel NIV Bilevel O2 Flow Rate 40.00 40.00 30.00 30.00 02/16/20 02/16/20 02/16/20 02/16/20 08:00 08:05 09:00 09:50 Pulse 55 Resp 16 B/P (MAP) 114/55 (74) Pulse Ox 94 O2 Delivery NIV Bilevel NIV Bilevel NIV Bilevel NIV Bilevel O2 Flow Rate 35.00 35.00 45.00 FiO2 40 02/16/20 02/16/20 02/16/20 02/16/20 10:00 10:53 11:00 11:00 Pulse 53 53 57 Resp 14 16 16 B/P (MAP) 112/58 (76) 117/58 (77) Pulse Ox 95 93 93 O2 Delivery NIV Bilevel NIV Bilevel NIV Bilevel O2 Flow Rate 45.00 40.00 40.00 40.00 02/16/20 02/16/20 02/16/20 02/16/20 12:00 12:00 12:35 13:00 Temp 36.5 Pulse 63 73 Resp 15 32 B/P (MAP) 104/63 (77) 124/86 (99) Pulse Ox 92 91 O2 Delivery NIV Bilevel NIV Bilevel O2 Flow Rate 40.00 40.00 02/16/20 02/16/20 02/16/20 02/16/20 14:00 15:00 15:11 15:29 Pulse 56 Resp 24 29 16 B/P (MAP) 110/95 (100) 138/73 (94) Pulse Ox 90 92 92 O2 Delivery NIV Bilevel NIV Bilevel Vapotherm O2 Flow Rate 40.00 40.00 40.00 25.00 100.00 02/16/20 00:00 Intake Total 0 ml Output Total 75 ml Balance -75 ml Capillary Refill : Less Than 3 Seconds Constitutional: AAO x 3, well-developed, well-nourished HEENT: PERRL, hearing is well preserved Neck: No carotid bruit; carotid pulses are 2 + bilaterally Respiratory: rhonchi (scattered), other (fair air entry) Cardiovascular: regular rate-rhythm; No JVD; S1 and S2 Gastrointestinal: No tender; soft, round, audible bowel sounds Rectal: deferred Extremities: no lower extremity edema bilateral Neurologic/Psychiatric: grossly intact (moves all extremities) Skin: No rash on exposed areas, No ulcerations on exposed areas Data Review Labs Laboratory Tests 02/15/20 17:10: Blood Gas Puncture Site RR, Blood Gas Patient Temperature 39.5, Arterial Blood pH 7.30*L, Arterial Blood Partial Pressure CO2 97*H, Arterial Blood Partial Pressure O2 93, Arterial Blood HCO3 45*H, Arterial Blood Total CO2 47.2H, Art erial Blood Oxygen Saturation 96, Arterial Blood Base Excess 17.9H, Da Test YES-POS, Blood Gas Ventilator Setting NO, Blood Gas Inspired Oxygen 50% 02/15/20 21:19: Blood Gas Puncture Site LEFT RADIAL, Blood Gas Patient Temperature 36.1, Arteria l Blood pH 7.25*L, Arterial Blood Partial Pressure CO2 83*H, Arterial Blood Partial Pressure O2 72L, Arterial Blood HCO3 35H, Arterial Blood Total CO2 38.0H , Arterial Blood Oxygen Saturation 94, Arterial Blood Base Excess 8.0H, Da Test YES-POS, Blood Gas Ventilator Setting NO, Blood Gas Inspired Oxygen 50% 02/15/20 22:06: Lactic Acid Level 2.76*H 02/15/20 22:11: Glucometer 440*H 02/16/20 00:12: Lactic Acid Level 2.27*H 02/16/20 00:15: Glucometer 449*H 02/16/20 01:20: Glucometer 514*H 02/16/20 02:32: Lactic Acid Level 2.95*H, White Blood Count 25.0H, Red Blood Count 4.26L, Hemoglobin 12.6, Hematocrit 40, Mean Corpuscular Volume 95, Mean Corpuscular Hemoglobin 30, Mean Corpuscular Hemoglobin Concent 31L, Red Cell Distribution Width 16.4H, Platelet Count 181, Mean Platelet Volume 9.8, Neutrophils (%) (Auto) 95H, Lymphocytes (%) (Auto) 3L, Monocytes (%) (Auto) 2, Eosinophils (%) (Auto) 0, Basophils (%) (Auto) 0, Neutrophils # (Auto) 23.8H, Lymphocytes # (Auto) 0.7L, Monocytes # (Auto) 0.5, Eosinophils # (Auto) 0.0, Basophils # (Auto) 0.0, Sodium Level 133L, Potassium Level 4.7, Chloride Level 93L, Carbon Dioxide Level 28, Anion Gap 12, Blood Urea Nitrogen 22H, Creatinine 1.34H, Estimat Glomerular Filtration Rate 41, BUN/Creatinine Ratio 16, Glucose Level 501*H, Calcium Level 8.8, Phosphorus Level 2.8, Magnesium Level 1.5L 02/16/20 02:40: Blood Gas Puncture Site LEFT RADIAL, Blood Gas Patient Temperature 35.9, Arterial Blood pH 7.27*L, Arterial Blood Partial Pressure CO2 71*H, Arterial Blood Partial Pressure O2 77L, Arterial Blood HCO3 32H, Arterial Blood Total CO2 34.5H, Arterial Blood Oxygen Saturation 96, Arterial Blood Base Excess 5.5H, Da Test YES-POS, Blood Gas Ventilator Setting NO, Blood Gas Inspired Oxygen 50% 02/16/20 04:46: Lactic Acid Level 3.25*H 02/16/20 04:51: Glucometer 380H 02/16/20 06:46: Lactic Acid Level 2.69*H 02/16/20 07:09: Blood Gas Puncture Site LT RAD, Blood Gas Patient Temperature 35.9, Arterial Blood pH 7.27*L, Arterial Blood Partial Pressure CO2 74*H, Arterial Blood Partial Pressure O2 68L, Arterial Blood HCO3 34H, Arterial Blood Total CO2 36.4H , Arterial Blood Oxygen Saturation 94, Arterial Blood Base Excess 7.1H, Da Test YES-POS, Blood Gas Ventilator Setting NO, Blood Gas Inspired Oxygen BIPAP 40 02/16/20 08:32: Lactic Acid Level 1.80 02/16/20 08:35: Glucometer 236H 02/16/20 08:38: Urine Color YELLOW, Urine Clarity CLEAR, Urine pH 5.5, Urine Specific Rogers 1.025H, Urine Protein 1+H, Urine Glucose (UA) 2+H, Urine Ketones NEGATIVE, Urine Nitrite NEGATIVE, Urine Bilirubin NEGATIVE, Urine Urobilinogen 0.2, Urine Leukocyte Esterase NEGATIVE, Urine RBC (Auto) NEGATIVE, Urine RBC NONE, Urine WBC RARE, Urine Squamous Epithelial Cells 2-5, Urine Crystals PRESENTH, Urine Amorphous Sediment LARGE DORCAS URATESH, Urine Bacteria NEGATIVE, Urine Casts PRESENT, Urine Granular Casts 2-5H, Urine Mucus NEGATIVE, Urine Culture Indicated NO 02/16/20 11:50: Blood Gas Puncture Site NA, Blood Gas Patient Temperature 36.1, Arterial Blood pH 7.32*L, Arterial Blood Partial Pressure CO2 69H, Arterial Blood Partial Pressure O2 59L, Arterial Blood HCO3 35H, Arterial Blood Total CO2 37.2H, Arterial Blood Oxygen Saturation 91L, Arterial Blood Base Excess 8.7H, Da Test NA, Blood Gas Ventilator Setting NO, Blood Gas Inspired Oxygen 50% Microbiology 02/15/20 Blood Culture - Preliminary, Resulted No growth Laboratory Tests 02/15/20 16:17 02/16/20 02:32 A/P-Cardiology Assessment/Admission Diagnosis Acute on chronic respiratory failure with Sepsis and ac exacerbation of COPD due pneumonia Acute on chronic diastolic CHF MYLENE-1 Pulmonary HTN JORGE L - CPAP tx Echocardiogram done 03/09/2019 shows normal LV function, 55-65%, with mild to moderate diastolic dysfunction. Severe pulmonary hypertension, PASP approx 62 mmHg Cardiac cath of 03/11/[address] Elena showed mild CAD with a significantly elevated LVEDP DM II Tobaccoism: advised to refrain Hyperlipidemia Discussion and Recomendations Pneumonia with sepsis - management per Pulmonary and Med services Acute on chronic diastolic CHF - repeat echo and treat with diuretics as indicated Hypotension likely d/t sepsis - hold antihypertensives at this time Management of DM and renal insuff is with the Med Dwight Advised immediate and complete smoking cessation Further recs will be based on her hospital course We would like to thank Oswaldo anne for this consult Clinical Quality Measures DVT/VTE Risk/Contraindication: Risk Factor Score Per Nursin RFS Level Per Nursing on Admit: 4+=Very High JENNIE ROGERS MD FACP FAC CCDS Feb 16, 2020 16:55
[2020-02-16] MEDS ORDERED: inSUlin ASPART (NovoLOG) 1 UNIT/0.01 ML (CHARGE PER UNIT) SC SCH (21:00)
[2020-02-17] VITALS (13 sets, daily range): BP systolic 102–136; BP diastolic 52–80
[2020-02-17] MEDS: RT-ALBUTEROL/IPRATROPIUM 3 ML (DUONEB) VIAL INH SCH ×6 (01:05→22:08)
[2020-02-17] MEDS: NOREPINEPHRINE 4 MG/250 ML 250 ML IV SCH (01:32)
[2020-02-17] MEDS: LACTATED RINGERS 1,000 ML IV SCH (03:00)
[2020-02-17 03:25] LABS: BASOPHILS % (AUTO) 0 % (0-10); EOSINOPHILS % (AUTO) 0 % (0-10); HEMATOCRIT 34 % (35-52); HEMOGLOBIN 10.2 G/DL (11.5-16.0); LYMPHOCYTES # (AUTO) 0.7 X 10^3 (1.0-4.0); LYMPHOCYTES % (AUTO) 6 % (12-44); MEAN CORPUSCULAR HEMOGLOBIN 29 PG (25-34); MEAN CORPUSCULAR HGB CONC 30 G/DL (32-36); MEAN CORPUSCULAR VOLUME 96 FL (80-99); MONOCYTES # (AUTO) 0.4 X 10^3 (0.0-1.0); MONOCYTES % (AUTO) 4 % (0-12); NEUTROPHILS # (AUTO) 10.1 X 10^3 (1.8-7.8); NEUTROPHILS % (AUTO) 90 % (42-75); PLATELET COUNT 149 10^3/uL (130-400); RED CELL DISTRIBUTION WIDTH 16.1 % (10.0-14.5); WHITE BLOOD COUNT 11.2 10^3/uL (4.3-11.0)
[2020-02-17 03:32] LABS: POTASSIUM 4.6 MMOL/L (3.6-5.0)
[2020-02-17 03:34] LABS: CALCIUM 9.1 MG/DL (8.5-10.1)
[2020-02-17 03:36] LABS: ABG BASE EXCESS 9.7 MMOL/L (-2.5-2.5); ABG OXYGEN SATURATION 94 % (94-100); ABG PCO2 60 MMHG (35-45); ABG PH 7.38 (7.37-7.43); ABG PO2 63 MMHG (79-93); ABG TCO2 37.3 MMOL/L (21.0-31.0)
[2020-02-17 03:37] LABS: ALLENS TEST YES-POS; INSPIRED O2 40%; PATIENT TEMP 35.6; VENTILATOR NO
[2020-02-17 03:38] LABS: CREATININE SERUM 0.97 MG/DL (0.60-1.30); PHOSPHORUS 1.9 MG/DL (2.3-4.7)
[2020-02-17 03:40] LABS: MAGNESIUM 2.1 MG/DL (1.6-2.4)
[2020-02-17] MEDS ORDERED: inSUlin ASPART (NovoLOG) 1 UNIT/0.01 ML (CHARGE PER UNIT) SC SCH (04:00)
[2020-02-17] MEDS: inSUlin ASPART (NovoLOG) 1 UNIT/0.01 ML (CHARGE PER UNIT) SC SCH ×3 (04:03→18:15)
[2020-02-17] MEDS: MAGNESIUM 1 GM/100 ML IVPB 100 ML IV SCH (04:41)
[2020-02-17] MEDS: POTASSIUM CL 10MEQ/50ML IVPB 50 ML IV SCH (04:41)
[2020-02-17] MEDS: KCL 20 MEQ TAB (K-DUR) PO SCH (04:42)
--- NOTE | 2020-02-17 04:47 | Pulmonary Progress Note ---
ELIANE THOMSON,MED STUDENT 02/17/20 0447: Subjective Date Seen by a Provider: Feb 17, 2020 Time Seen by a Provider: 04:10 Subjective/Events-last exam Pt. currently on vapotherm and states she is breathing easier this am. Denies SOB, chest pain, nausea, abdominal pain. Sepsis Event Evaluation Height, Weight, BMI Height: 5'6.00" Weight: 212lbs. 1.0oz. 96.840536wj; 35.78 BMI Method:Estimated Focused Exam Lactate Level 02/16/20 04:46: Lactic Acid Level 3.25*H 02/16/20 06:46: Lactic Acid Level 2.69*H 02/16/20 08:32: Lactic Acid Level 1.80 Exam Exam Vital Signs Date Time Temp Pulse Resp B/P (MAP) Pulse Ox O2 Delivery O2 Flow Rate FiO2 02/17/20 04:00 NIV Bilevel 40 02/17/20 03:57 NIV Bilevel 40.00 02/17/20 03:27 35.6 Vapotherm 25.00 80.00 02/17/20 03:00 55 16 113/75 (88) 95 NIV Bilevel 40.00 02/17/20 02:00 61 17 114/75 (88) 94 NIV Bilevel 40.00 02/17/20 01:07 61 18 95 40.00 02/17/20 01:00 60 02/17/20 01:00 60 19 132/79 (96) 95 NIV Bilevel 40.00 02/17/20 00:00 NIV Bilevel 40 02/17/20 00:00 68 16 112/67 (82) 92 NIV Bilevel 40.00 02/16/20 23:41 36.3 02/16/20 23:00 72 23 134/43 (73) 91 NIV Bilevel 40.00 02/16/20 22:30 78 20 96 40.00 02/16/20 22:27 NIV Bilevel 40.00 02/16/20 22:00 87 20 127/74 (91) 100 Vapotherm 25.00 80.00 02/16/20 21:00 72 32 119/61 (80) 100 Vapotherm 25.00 80.00 02/16/20 20:26 Vapotherm 25.00 80.00 02/16/20 20:06 90 25 101/82 (88) 100 Vapotherm 25.00 90.00 02/16/20 20:00 Vapotherm 25.00 80 02/16/20 19:56 Vapotherm 25.00 90.00 02/16/20 19:27 36.4 02/16/20 19:00 NIV Bilevel 02/16/20 19:00 73 14 124/69 (87) 92 NIV Bilevel 40.00 02/16/20 18:56 61 18 94 40.00 02/16/20 18:46 72 119/76 02/16/20 18:41 57 02/16/20 18:00 72 18 119/76 (90) 89 NIV Bilevel 40.00 02/16/20 17:20 () NIV Bilevel 40.00 02/16/20 17:00 88 13 119/64 (82) 99 Vapotherm 25.00 100.00 02/16/20 16:00 67 18 139/61 (87) 100 Vapotherm 25.00 100.00 02/16/20 16:00 NIV Bilevel 40 02/16/20 15:29 Vapotherm 25.00 100.00 02/16/20 15:11 56 16 92 40.00 02/16/20 15:00 29 138/73 (94) 92 NIV Bilevel 40.00 02/16/20 14:00 24 110/95 (100) 90 NIV Bilevel 40.00 02/16/20 13:00 32 124/86 (99) 91 NIV Bilevel 40.00 02/16/20 12:35 73 02/16/20 12:00 63 15 104/63 (77) 92 NIV Bilevel 40.00 02/16/20 12:00 36.5 02/16/20 12:00 NIV Bilevel 35 02/16/20 11:00 NIV Bilevel 40.00 02/16/20 11:00 57 16 117/58 (77) 93 NIV Bilevel 40.00 02/16/20 10:53 53 16 93 40.00 02/16/20 10:00 53 14 112/58 (76) 95 NIV Bilevel 45.00 02/16/20 09:50 NIV Bilevel 45.00 02/16/20 09:00 55 16 114/55 (74) 94 NIV Bilevel 35.00 02/16/20 08:05 NIV Bilevel 35.00 7/28/20 08:00 NIV Bilevel 40 02/16/20 08:00 51 15 108/73 (85) 90 NIV Bilevel 30.00 02/16/20 07:44 NIV Bilevel 30.00 02/16/20 07:38 58 17 95 40.00 02/16/20 07:00 65 20 110/64 (79) 95 NIV Bilevel 40.00 02/16/20 07:00 NIV Bilevel 40.00 02/16/20 06:48 73 02/16/20 06:00 56 15 112/81 (91) 98 NIV Bilevel 50.00 02/16/20 05:00 70 16 116/59 (78) 93 NIV Bilevel 50.00 02/16/20 04:48 53 130/66 02/16/20 04:48 53 130/66 I & O 02/17/20 07:00 Intake Total 6372.5 ml Output Total 2100 ml Balance 4272.5 ml Height & Weight Height: 5'6.00" Weight: 212lbs. 1.0oz. 96.432296rb; 35.78 BMI Method:Estimated General Appearance: No Apparent Distress, Chronically ill, Obese HEENT: PERRL/EOMI, TMs Normal, Normal ENT Inspection, Pharynx Normal, Moist Mucous Membranes Neck: Full Range of Motion, Normal Inspection, Non Tender Respiratory: Chest Non Tender, Lungs Clear, Normal Breath Sounds, No Respiratory Distress, Decreased Breath Sounds; No Wheezing Cardiovascular: Regular Rate, Rhythm, No Edema, No Gallop, No JVD, No Murmur, Normal Peripheral Pulses Capillary Refill: Less Than 3 Seconds Peripheral Pulses: 2+ Dorsalis Pedis (R), 2+ Left Dors-Pedis (L), 2+ Radial Pulses (R), 2+ Radial Pulses (L) Gastrointestinal: soft, no organomegaly; No distended Extremity: Normal Capillary Refill, Normal Inspection, Normal Range of Motion, Non Tender, No Calf Tenderness, No Pedal Edema Neurologic/Psychiatric: Alert, Oriented x3, No Motor/Sensory Deficits, Normal Mood/Affect Skin: Normal Color, Warm/Dry Lymphatic: No Adenopathy Results Lab Laboratory Tests 02/15/20 16:17 02/16/20 02:32 02/17/20 03:08 Assessment/Plan Assessment/Plan Acute on chronic respiratory failure -Pt has been negative for COVID x 2 last was 01/28 -Pt is home bound -On Vapotherm 25/80 -Repeat ABG Left pneumonia with septic shock -Echo performed 02/15 -per report, est. EF 60-65%, no wall motion abnormalities -Solucortef -Zosyn and vancomycin -LR 150/hr -Rodriguez cultures -Urine strep legionella ag negative intermittent bradycardia -Consult Cardiology DM II -Hold PO hypoglycemics until pt transfers to [facility] Q 4 -Add Levemir 10units HS Severe COPD with 5l/min at home JORGE L -Pt has home CPAP Current smoker -Education WESLEY ALMAGUER DO 02/17/20 0628: Subjective Time Seen by a Provider: 06:23 Assessment/Plan Assessment/Plan Acute on chronic respiratory failure -Pt has been negative for COVID x 2 last was 01/28 -Pt is home bound -On Vapotherm 25/80 -Repeat ABG Left pneumonia -Check CT of chest r/o mass -Echo performed 02/15 -per report, est. EF 60-65%, no wall motion abnormalities -Solucortef -Zosyn and vancomycin -LR 150/hr -- D/C IVF -Rodriguez cultures -Urine strep legionella ag negative intermittent bradycardia -Consult Cardiology DM II -Hold PO hypoglycemics until pt transfers to [facility] -[facility] Q 4 - Levemir 10units HS Severe COPD with 5l/min at home JORGE L -Pt has home CPAP Current smoker -Education ELIANE THOMSON,MED STUDENT Feb 17, 2020 04:47 WESLEY ALMAGUER DO Feb 17, 2020 06:28
[2020-02-17] MEDS: ENOXAPARIN 40 MG/0.4 ML (LOVENOX) SYR SC SCH (05:51)
[2020-02-17] MEDS: VASOPRESSIN INJECTION 20 UNIT in NORMAL SALINE 100 ML IV SCH (05:58)
[2020-02-17] MEDS: HYDROCORTISONE 100 MG/2 ML (Solu-CORTEF) VIAL IV SCH (05:58)
[2020-02-17] MEDS ORDERED: TROUGH ORDER-PHARMACY XX NR (06:00)
[2020-02-17] MEDS: VANCOMYCIN 1250 MG/NS 250 ML IVPB IV SCH ×4 (06:36→19:29)
[2020-02-17] MEDS: RT-BUDESONIDE NEBS 0.5 MG/2ML (PULMICORT) AMP INH SCH ×2 (06:43→18:31)
[2020-02-17] MEDS: PIPERACILLIN/TAZO 4.5 GM/NS 100 ML IV SCH ×4 (08:00→17:01)
[2020-02-17] MEDS: PANTOPRAZOLE 40 MG (PROTONIX) VIAL IV SCH (08:00)
--- NOTE | 2020-02-17 08:31 | Diagnostic Imaging Report ---
EXAMINATION: Portable erect AP chest at 4:02h. INDICATION: Dyspnea The heart size is within normal limits and stable when compared to 02/08/2020. The perihilar densities involving both lungs seen on the prior study are essentially no different and there is still blunting of the left costophrenic angle. The mediastinum is not widened. The osseous structures are intact. The central venous catheter on the left is unchanged in position. IMPRESSION: Stable chest. There has been no significant change since the prior study. A follow-up exam would be recommended for continued evaluation. Dictated by: Dictated on workstation # [id number]
[2020-02-17] MEDS ORDERED: FUROSEMIDE 40 MG/4 ML INJ (LASIX) IVP ONE (09:00)
[2020-02-17] MEDS ORDERED: SODIUM PHOSPHATE INJ 30 MM in NS (IVPB) 250 ML IV ONE (09:00)
--- NOTE | 2020-02-17 09:01 | NUR ---
DR ALMAGUER NOTIFIED OF PT'S BNP RESULTS, NEW ORDERS RECEIVED TO GIVE LASIX 40MG IV X ONE DOSE.
--- NOTE | 2020-02-17 09:12 | Progress Note - Cardiology ---
Cardiology SOAP Progress Note Subjective: Off Bi-pap this morning. Reports SOB is improved this morning. No c/o CP or palpitations. Objective: I&O/Vital Signs 02/18/20 02/18/20 02/18/20 02/18/20 06:49 07:00 07:13 08:00 Temp 36.2 Pulse 76 75 Resp 22 B/P (MAP) 161/79 (106) Pulse Ox 92 92 96 O2 Delivery Vapotherm High Flow N/C High Flow N/C O2 Flow Rate 20.00 9.00 10.00 FiO2 50 02/18/20 02/18/20 02/18/20 02/18/20 09:00 10:08 10:09 10:09 Pulse Ox 90 95 O2 Delivery High Flow N/C High Flow N/C High Flow N/C High Flow N/C O2 Flow Rate 10.00 9.00 9.00 9.00 02/18/20 02/18/20 02/18/20 12:00 12:21 14:07 Temp 36.5 Pulse 70 63 Resp 20 B/P (MAP) 111/67 (82) Pulse Ox 96 97 O2 Delivery High Flow N/C High Flow N/C O2 Flow Rate 9.00 7.00 02/18/20 00:00 Intake Total 1342.5 ml Output Total 2900 ml Balance -1557.5 ml Weight (Pounds): 212 Weight (Ounces): 1.0 Weight (Calculated Kilograms): 96.861903 Constitutional: AAO x 3, well-developed, well-nourished Respiratory: rhonchi (scattered), other (fair air entry) Cardiovascular: regular rate-rhythm; No JVD; tachycardia, S1 and S2 Gastrointestional: No tender; soft, round, audible bowel sounds Extremities: no lower extremity edema bilateral Neurologic/Psychiatric: grossly intact (moves all extremities) Skin: No rash on exposed areas, No ulcerations on exposed areas Results/Procedures: Labs Laboratory Tests 02/17/20 18:10: Glucometer 213H 02/18/20 00:17: Glucometer 122H 02/18/20 04:40: White Blood Count 5.0, Red Blood Count 3.34L, Hemoglobin 9.8L, Hematocrit 33L, Mean Corpuscular Volume 98, Mean Corpuscular Hemoglobin 29, Mean Corpuscular Hemoglobin Concent 30L, Red Cell Distribution Width 15.6H, Platelet Count 127L, Mean Platelet Volume 9.5, Neutrophils (%) (Auto) 71, Lymphocytes (%) (Auto) 21, Monocytes (%) (Auto) 7, Eosinophils (%) (Auto) 1, Basophils (%) (Auto) 0, Neutrophils # (Auto) 3.5, Lymphocytes # (Auto) 1.0, Monocytes # (Auto) 0.4, Eosinophils # (Auto) 0.0, Basophils # (Auto) 0.0, Sodium Level 144, Potassium Level 3.8, Chloride Level 99, Carbon Dioxide Level 39H, Anion Gap 6, Blood Urea Nitrogen 17, Creatinine 0.88, Estimat Glomerular Filtration Rate > 60, BUN/Creatinine Ratio 19, Glucose Level 62L, Calcium Level 9.0, Corrected Calcium 10.0, Total Bilirubin 0.3, Aspartate Amino Transf (AST/SGOT) 12, Alanine Aminotransferase (ALT/SGPT) 13, Alkaline Phosphatase 66, Total Protein 5.7L, Albumin 2.8L 02/18/20 05:33: Glucometer 75 02/18/20 12:08: Glucometer 89 Microbiology 02/15/20 Blood Culture - Preliminary, Resulted No growth Procedures NAME: SAMPSON CEVALLOS [facility] REC#: [id number] PT STATUS: ADM IN : 1965 PHYSICIAN: CLAIRE BAZZI DO ADMIT DATE: 02/15/20/ICU Signed Date of Exam:02/17/20 CHEST 1 VIEW, AP/PA ONLY EXAMINATION: Portable erect AP chest at 4:02h. INDICATION: Dyspnea The heart size is within normal limits and stable when compared to 02/08/2020. The perihilar densities involving both lungs seen on the prior study are essentially no different and there is still blunting of the left costophrenic angle. The mediastinum is not widened. The osseous structures are intact. The central venous catheter on the left is unchanged in position. IMPRESSION: Stable chest. There has been no significant change since the prior study. A follow-up exam would be recommended for continued evaluation. Dictated by: Dictated on workstation # [id number] Dict: 02/17/20 0812 Trans: 02/17/20 0859 HEATH [id number] Interpreted by: JOSE ANGEL ACOSTA MD Electronically signed by: JOSE ANGEL ACOSTA MD 02/17/20 0859 A/P: Assessment: Acute on chronic respiratory failure with Sepsis and ac exacerbation of COPD due pneumonia Acute on chronic diastolic CHF MYLENE-1 Pulmonary HTN JORGE L - CPAP tx Echocardiogram done February 16, 2020 shows normal LV function, 60-65% Cardiac cath of 03/11/[address] Elena showed mild CAD with a significantly elevated LVEDP DM II Tobaccoism: advised to refrain Hyperlipidemia Plan: Pneumonia with sepsis - management per Pulmonary and Med services Acute on chronic diastolic CHF - treat with diuretics - improved BP has improved Sinus tachycardia - restart BB Change Lasix over to oral starting tomorrow Management of DM and renal insuff is with the Med Svce Advised immediate and complete smoking cessation ANDERSON PRADO Feb 17, 2020 09:12
[2020-02-17] MEDS ORDERED: IOHEXOL 350 MG/ML 100 ML (OMNIPAQUE 350) VIAL IV ONE (09:15)
[2020-02-17] MEDS ORDERED: meTOproloL SUCCINATE 50 MG (TOPROL XL) TAB PO SCH (09:15)
[2020-02-17] MEDS ORDERED: HOLD METFORMIN - RECEIVED CONTRAST 20 ML VIAL IV SCH (09:15)
[2020-02-17] MEDS ORDERED: NS 100 ML (IVPB) BAG IV ONE (09:15)
--- NOTE | 2020-02-17 10:09 | Diagnostic Imaging Report ---
EXAMINATION: CT Chest with intravenous contrast. TECHNIQUE: Multiple contiguous axial images were obtained through the chest after the uneventful administration of intravenous contrast. All CT scans use one or more of the following dose optimizing techniques: automated exposure control, MA and/or KvP adjustment based on a patient size and exam type, or iterative reconstruction. HISTORY: Perihilar consolidation, evaluate for mass. COMPARISON: 09/12/2019. FINDINGS: There is subsegmental consolidation of the medial portion of the anterior segment of the left upper lobe. No bronchial occluding lesion is seen. There is a 10 mm left hilar lymph node. There is a 15 mm right hilar lymph node. There are areas of septal line thickening in the apices, consistent with mild edema. There is mild right base atelectasis. No pleural effusion. The heart size is normal. There are mild coronary artery calcifications. No pericardial effusion. Aorta is normal in caliber. There is no axillary or supraclavicular lymphadenopathy. There is no mediastinal lymphadenopathy. Limited views of the upper abdomen show changes of cholecystectomy. There are no suspicious osseus lesions. IMPRESSION: Subsegmental consolidation in the medial portion of the anterior segment of the left upper lobe without obstructing bronchial lesion seen. These findings are favored to reflect pneumonia, particularly given that they developed between the 02/01/2020 and 02/15/2020 chest radiographs. Short-term followup to resolution is recommended over the next 4-6 weeks which could be accomplished with radiography. Dictated by: Dictated on workstation # [id number]
--- NOTE | 2020-02-17 10:29 | Occupational Therapy Eval ---
OT Evaluation-General/PLF Medical Diagnosis Admission Date Feb 15, 2020 at 17:40 Medical Diagnosis: acute on chronic resp failure Onset Date: Feb 15, 2020 Therapy Diagnosis Therapy Diagnosis: Decreased ADL status Height/Weight Height (Feet): 5 Height (Inches): 6.00 Weight (Pounds): 212 Weight (Ounces): 1.0 Precautions Precautions/Isolations: Fall Prevention, Standard Precautions Referral Physician: Jd. Referral Reason: Activity Tolerance, Self Care, Evaluation/Treatment, Strengthening/ROM Medical History Pertinent Medical History: COPD, DM, Heart Failure, HTN, Hypothroidism, Smoking Additional Medical History hypotension, sepsis, COPD, DM, anx. Current History Pt admits tto ER with increasing SOB, COPD. Pt was recently hospitalized (~2 weeks ago) for similar sx. Reviewed History: Yes Social History Home: Single Level Current Living Status: Other Family (uncle) Entry Into Home: Stairs Without Railing Steps Into Home: 1 Steps Inside Home: 0 ADL-Prior Level of Function SCALE: Activities may be completed with or without assistive devices. 5-[id number]-[id number] completes the activity by him/herself with no assistance from a helper. 5-Set-up or Clean-up Assistance-helper sets up or cleans up; patient completes activity. [place] assists only prior to or following the activity. 4-Supervision or Touching Assistance-helper provides verbal cues and/or touching/steadying and/or contact guard assistance as patient completes activity. Assistance may be provided throughout the activity or intermittently. 3-Partial/Moderate Assistance-helper does LESS THAN HALF the effort. [place] lift s, holds or supports trunk or limbs, but provides less than half the effort. 2-Substantial/Maximal Assistance-helper does MORE THAN HALF the effort. [place] lifts or holds trunk or limbs and provides more than half the effort. 7-Egpakjhpu-zxxmfn does ALL the effort. Patient does none of the effort to complete the activity. Or, the assistance of 2 or more helpers is required for the patient to complete the activity. If activity was not attempted, code reason: 7-Patient Refused. 9-Not Applicable-not attempted and the patient did not perform the activity before the current illness, exacerbation or injury. 10-Not Attempted due to Environmental Limitations-(lack of equipment, weather restraints, etc.). 88-Not Attempted due to Medical Conditions or Safety Concerns. ADL PLOF Comments Pt states IND with I/ADL tasks, though states she assists uncle/ uncle assists pt when needed. Self Care: Independent Functional Cognition: Independent DME/Equipment: Bath Chair, Grab Bars, Tub/Shower DME/Equipment Comments walker, sc, tub/ shower, gb in shower. Occupation: unemployed. Drive Self: Yes OT Current Status Subjective Pt's nurse present in room, agrees to OT eval/ treat. Pt seen in recliner post- transfer. Pt states no SOB during transfer, agrees to therapy, states no pain and ready to d/c home. Mental Status/Objective Patient Orientation: Normal For Age Attachments: IV, Oxygen (vapotherm) Current Glasses/Contacts: Yes Hearing Aids: No Dentures/Partials: No Hand Dominance: Right Upper Extremity ROM WFL BUE Upper Extremity Coordination WFL BUE Upper Extremity Sensation WFL BUE Upper Extremity Strength WFL BUE (4/5) ADL-Treatment Eating (QC): 6 (states no pain feeding.) Lower Body Dressing (QC): 4 (SBA during LB dressing per clinical judgment) On/Off Footwear (QC): 6 (IND with task donning/ doffing.) Toileting Hygiene (QC): 4 (SBA at this time based on clinical judgment- pt able to stand for ~2 minutes, doffs hands from walker and brings BUE to back/ bottom to represent bottom hygiene. Pt completes with 88% 02 sats, pt encouraged to sit and complete deep breaths. ) Other Treatments Pt agrees to OT eval/ treat. Pt states feels much better than prior date. Pt now on vapotherm, nursing states prep for 4th floor admission. Pt states uncle assists with pt at times, though she assists him as well as they live in same house and neither work; owns walker though did not utilize prior. Pt states utilizes 4L continuous flow 02 at home; pt educated on taking breaks and use of walker at home if fatigued. Pt completes sit to stand with walker with SBA, completes 2 min standing/ balance task without support of UE on walker; 02 sats drop to 88%. Pt sits to recover. Pt completes sock doff/ donning, no difficulties. Pt states she would be able to complete all tasks at home with IND. Based on pt's abilities, pt would require 02 self-monitoring, though pt is physically capable of completing ADL tasks at home without skilled OT tx at this time. All needs met, call light in reach; nursing and RT present. Education OT Patient Education: Progress toward Goal/Update tx plan, Purpose of tx/functional activities, Reviewed precautions, Safety issues Teaching Recipient: Patient Teaching Methods: Demonstration, Discussion Response to Teaching: Verbalize Understanding, Return Demonstration OT Package Clerk Goals Package Clerk Goals 1=Demonstrate adherence to instructed precautions during ADL tasks. 2=Patient will verbalize/demonstrate understanding of assistive devices/modifications for ADL. 3=Patient will improve strength/tolerance for activity to enable patient to perform ADL's. OT Education/Plan Problem List/Assessment Assessment: No Skilled OT Needs ID'd Discharge Recommendations Plan/Recommendations: Discharge/Goals Met Therapy Discharge Recommendati: Home & Family Treatment Plan/Plan of Care Patient would benefit from OT for education, treatment and training to promote independence in ADL's, mobility, safety and/or upper extremity function for ADL's. Plan of Care: OTHER (eval and d/c.) Treatment Duration: Feb 17, 2020 Frequency: 1 time per week (eval and d/c.) Time/GCodes Start Time: 09:59 Stop Time: 10:07 Total Time Billed (hr/min): 8 Billed Treatment Time 1JORGE (8) d/cANKIT SCHULZ OTR Feb 17, 2020 10:29
--- NOTE | 2020-02-17 10:49 | NUR ---
SPOKE WITH THE PT, WENT THRU THE EXT MED HISTORY AND CALLED [facility] TO COMPLETE THE MED REC METFORMIN 500MG WAS LAST FILLED ON 01-25-2020 #60/30DS- THIS IS NOT SHOWN ON THE EXT MED HISTORY ALL OTHER MEDS ARE ON THE EXT MED HISTORY AND PT WAS ABLE TO TELL ME HOW/WHEN SHE TAKES EACH OTC MEDS: TYLENOL PRN ASPIRIN 81 CLARITIN PRN FISH OIL FLONASE PRN
--- NOTE | 2020-02-17 11:36 | Progress Note - Hospitalist ---
Subjective HPI/CC On Admission Date Seen by Provider: Feb 17, 2020 Time Seen by Provider: 10:00 CC: SOB HPI: This is a 54yoWF with known severe in-stage COPD who continues to smoke who I just discharged two weeks ago who presented to the ER with SOB, had a central line placed in the ICU overnight. She had been COVID swabbed the night before, hadn't been out or exposed to anyone in a low prevalence state so she was star mayra on aggressive IV steroids along with BiPAP and nebulizer treatments and she really doesn't want to be intubated. Her BiPAP settings are at 16 and 12, her HR is 49, she is a bit sedated right now and white count is 25, 000. Subjective/Events-last exam Pt doing much better Off Bipap Vapotherm currently No BM yet Up in chair Transferring to 4th floor likely if remains stable this afternoon Review of Systems General: Fatigue, Malaise Pulmonary: Dyspnea Neurological: Weakness Focused Exam Lactate Level 02/16/20 04:46: Lactic Acid Level 3.25*H 02/16/20 06:46: Lactic Acid Level 2.69*H 02/16/20 08:32: Lactic Acid Level 1.80 Objective Exam Vital Signs Vital Signs Date Time Temp Pulse Resp B/P (MAP) Pulse Ox O2 Delivery O2 Flow Rate FiO2 02/17/20 19:39 35.8 95 16 134/72 (92) 94 Vapotherm 20.00 50.00 02/17/20 18:38 50 Capillary Refill : Less Than 3 Seconds General Appearance: No Apparent Distress, WD/WN, Chronically ill, Obese HEENT: PERRL/EOMI, Normal ENT Inspection, Pharynx Normal, Moist Mucous Membranes Neck: Full Range of Motion, Normal Inspection, Non Tender, Supple, Carotid Bruit Respiratory: Chest Non Tender, Lungs Clear, Normal Breath Sounds, No Accessory Muscle Use, No Respiratory Distress, Decreased Breath Sounds Cardiovascular: Regular Rate, Rhythm, No Edema, No Gallop, No JVD, No Murmur, Normal Peripheral Pulses Gastrointestinal: Normal Bowel Sounds, No Organomegaly, No Pulsatile Mass, Non Tender, Soft Back: Normal Inspection, No CVA Tenderness, No Vertebral Tenderness Extremity: Normal Capillary Refill, Normal Inspection, Normal Range of Motion, Non Tender, No Calf Tenderness, No Pedal Edema Neurologic/Psychiatric: Alert, Oriented x3, No Motor/Sensory Deficits, Normal Mood/Affect Skin: Normal Color, Warm/Dry Lymphatic: No Adenopathy Results/Procedures Lab Laboratory Tests 02/17/20 03:08 Patient resulted labs reviewed. Assessment/Plan Assessment and Plan Assess & Plan/Chief Complaint Assessment: Acute on chronic respiratory failure DM HTN AECOPD Wean Bipap Vapotherm Up in chair BM regimen May transfer to 4th floor doing well Diagnosis/Problems Diagnosis/Problems (1) Acute on chronic respiratory failure with hypoxia and hypercapnia Status: Acute (2) CHF (congestive heart failure) Status: Acute (3) Hypothyroidism Status: Chronic (4) HTN (hypertension) Status: Chronic (5) Oxygen dependent Status: Chronic Clinical Quality Measures DVT/VTE Risk/Contraindication: Risk Factor Score Per Nursin RFS Level Per Nursing on Admit: 4+=Very High CLAIRE BAZZI DO Feb 17, 2020 11:36
--- NOTE | 2020-02-17 11:55 | Physical Therapy Evaluation ---
PT Evaluation-General Medical Diagnosis Admission Date Feb 15, 2020 at 17:40 Medical Diagnosis: acute on chronic resp failure Onset Date: Feb 15, 2020 Therapy Diagnosis Therapy Diagnosis: impaired mobility, endurance Height/Weight Height (Feet): 5 Height (Inches): 6.00 Weight (Pounds): 212 Weight (Ounces): 1.0 Precautions Precautions/Isolations: Fall Prevention, Standard Precautions Referral Physician: Shira Reason for Referral: Evaluation/Treatment Medical History Pertinent Medical History: COPD, DM, Heart Failure, HTN, Hypothroidism, Smoking Additional Medical History Past Medical History Surgeries: Gallbladder Respiratory: COPD, Emphysema, Pneumonia, Sleep Apnea Currently Using CPAP: Yes Currently Using BIPAP: No Cardiac: High Cholesterol, Hypertension Sexually Transmitted Disease: No HIV/AIDS: No 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 Disorders: Denies Menopausal Endocrine: Hypothyroidsim, Diabetes, Non-Insulin dep Loss of Vision: Denies Hearing Impairment: Denies Psychosocial: Anxiety, Depression Reviewed History: Yes Social History Home: Single Level Current Living Status: Other Family (uncle) Entry Into Home: Stairs Without Railing PT Steps Into Home: 2 PT Steps Inside Home: 0 Prior Prior Level of Function SCALE: Activities may be completed with or without assistive devices. 8-[id number] completes the activity by him/herself with no assistance from a helper. 5-Set-up or Clean-up Assistance-helper sets up or cleans up; patient completes activity. [place] assists only prior to or following the activity. 4-Supervision or Touching Assistance-helper provides verbal cues and/or touching/steadying and/or contact guard assistance as patient completes activity. Assistance may be provided throughout the activity or intermittently. 3-Partial/Moderate Assistance-helper does LESS THAN HALF the effort. [place] lifts, holds or supports trunk or limbs, but provides less than half the effort. 2-Substantial/Maximal Assistance-helper does MORE THAN HALF the effort. [place] lifts or holds trunk or limbs and provides more than half the effort. 7-Rjfnmnhko-omtbkg does ALL the effort. Patient does none of the effort to complete the activity. Or, the assistance of 2 or more helpers is required for the patient to complete the activity. If activity was not attempted, code reason: 7-Patient Refused. 9-Not Applicable-not attempted and the patient did not perform the activity before the current illness, exacerbation or injury. 10-Not Attempted due to Environmental Limitations-(lack of equipment, weather restraints, etc.). 88-Not Attempted due to Medical Conditions or Safety Concerns. Bed Mobility: 6 Transfers (B,C,W/C): 6 Gait: 6 Stairs: 6 Indoor Mobility (Ambulation): Independent Stairs: Independent PT Evaluation-Current Subjective Patient in recliner pre tx, agrees to PT, has no complaints of pain. Pt/Family Goals to be independent at home Objective Patient Orientation: Person, Place, Situation Attachments: Oxygen, Enriquez Catheter, IV vapotherm ROM/Strength ROM Lower Extremities WNL Strength Lower Extremities 5/5 gross BLE Sensory Vision: Functional Hearing: Functional Hand Dominance: Right Sensation Right Lower Extremit: Intact Sensation Left Lower Extremity: Intact Transfers Sit to Stand (QC): 4 SBA Gait Does the Patient Walk?: Yes Mode of Locomotion: Walk Anticipated Mode of Locomotion: Walk Walk 10 feet (QC): 4 Distance: 25' Gait Assistive Device: FWW Comments/Gait Description Patient was only able to ambulate forward and back a few feet due to her vapotherm line, performed this 3 times for a total of about 25' before needing to sit down. O2 stayed at about 91%. Balance Sitting Static: Normal Sitting Dynamic: Normal Standing Static: Good Standing Dynamic: Good Treatment seated BLE exercises x20 (AP, LAQ) Assessment/Needs Patient has impaired mobility, endurance. Patient in recliner post tx with nurse call, phone, tray, all needs met. Rehab Potential: Fair PT Correction Goals Batch Weigher Goals PT Correction Goals Time Frame: Feb 24, 2020 Roll Left & Right (QC): 6 Sit to Lying (QC): 6 Lying-Sitting on Side/Bed(QC): 6 Sit to Stand (QC): 6 Chair/Jay-zc-Dxtrc Xfer(QC): 6 Walk 10 feet (QC): 6 Walk 50ft with 2 Turns (QC): 6 PT Plan Problem List Problem List: Activity Tolerance, Functional Strength, Safety, Balance, Gait, Transfer, Bed Mobility Treatment/Plan Treatment Plan: Continue Plan of Care Treatment Plan: Bed Mobility, Education, Functional Activity Jose, Functional Strength, Gait, Safety, Therapeutic Exercise, Transfers Treatment Duration: Feb 24, 2020 Frequency: 6 times per week Estimated Hrs Per Day: .25 hour per day Patient and/or Family Agrees t: Yes Safety Risks/Education Patient Education: Gait Training, Transfer Techniques, Correct Positioning, Safety Issues Teaching Recipient: Patient Teaching Methods: Demonstration, Discussion Response to Teaching: Reinforcement Needed Discharge Recommendations Plan Patient will perform bed mobility and transfer training, balance and endurance training, functional strengthening, stair training, gait training, and ed ucation, to improve functional mobility and independence at home. Therapy Discharge Recommendati: Home & Family, Post Acute PT Time/GCodes Time In: 1010 Time Out: 1023 Total Billed Treatment Time: 13 Total Billed Treatment 1 visit DANIE CODY PT Feb 17, 2020 11:55
--- NOTE | 2020-02-17 13:20 | NUR ---
RD ASSESSMENT PMHx: COPD; emphysema; pneumonia; hypercholesterolemia; HTN; DM; hypothyroidism; PT INTERACTION: Pt was awake and pleasant during nutrition assessment. Pt states current appetite is pretty good. Note avg PO intake 50-75% x1d, per chart review. Pt states following a regular diet at home, and has no issues with chewing/swallowing food. Pt states no recent issues with nausea, vomiting, constipation, and diarrhea, and that her last BM was prior to admit. Note pt not currently on bowel regimen per chart review. Pt states unsure of recent wt changes. Note recent 26# wt gain x16d, per chart review. Pt states current DM management is "not bad." Note recent HbA1c of 6.3 taken on 02/16/20 per chart review. ABNORMAL NUTRITION-RELATED LAB VALUES LOW: phos 1.9 HIGH: glu 169 Est. kcal needs: 1650 kcal | 15 kcal/kg Est. Pro needs: 88 g Pro | 0.8 g Pro/kg PES STATEMENT: Inadequate oral intake (NI-2.1) related to loss of appetite as evidenced by pt interview | avg PO intake 50-75% x1d INTERVENTION: Continue with current diet order of CHO 60g/m 0snack diet. Pt may benefit from nutrition supplementation if PO intake declines. Offered diet education on DM management, but pt declined at this time. Will attempt to offer again prior to discharge. Will continue to follow and reassess as pt needs, intake, and status change. MONITOR/EVALUATE: PO Intake; Plan of Care; Hydration Status; Weight Status; Lab Values Liza Puente, MS, RD, LD
--- NOTE | 2020-02-17 13:45 | Progress Note - Cardiology ---
Cardiology SOAP Progress Note Subjective: No cp or palp or syncope. Shortness of breath is improving Gen weakness and malaise No focal weakness No n/v/d Objective: I&O/Vital Signs 02/17/20 02/17/20 02/17/20 02/17/20 02:00 03:00 03:27 03:57 Temp 35.6 Pulse 61 55 Resp 17 16 B/P (MAP) 114/75 (88) 113/75 (88) Pulse Ox 94 95 O2 Delivery NIV Bilevel NIV Bilevel Vapotherm NIV Bilevel O2 Flow Rate 40.00 40.00 25.00 40.00 80.00 02/17/20 02/17/20 02/17/20 02/17/20 04:00 04:00 05:15 05:58 Pulse 70 71 Resp 13 17 B/P (MAP) 130/73 (92) 102/62 (75) Pulse Ox 95 92 O2 Delivery NIV Bilevel NIV Bilevel NIV Bilevel Vapotherm O2 Flow Rate 40.00 40.00 25.00 75.00 FiO2 40 02/17/20 02/17/20 02/17/20 02/17/20 06:00 06:39 06:43 07:00 Pulse 75 95 Resp 15 26 B/P (MAP) 127/71 (89) 117/52 (73) Pulse Ox 97 96 92 O2 Delivery Vapotherm Vapotherm Vapotherm Vapotherm O2 Flow Rate 25.00 25.00 25.00 25.00 75.00 60.00 60.00 FiO2 60 02/17/20 02/17/20 02/17/20 02/17/20 07:00 07:31 08:00 08:15 Temp 36.2 Pulse 95 88 Resp 20 B/P (MAP) 120/65 (83) Pulse Ox 94 90 O2 Delivery Vapotherm Vapotherm O2 Flow Rate 25.00 25.00 60.00 02/17/20 02/17/20 02/17/20 02/17/20 09:00 10:00 10:07 11:00 Pulse 78 80 Resp 18 17 B/P (MAP) 133/68 (89) Pulse Ox 95 93 90 96 O2 Delivery Vapotherm Vapotherm Vapotherm Vapotherm O2 Flow Rate 25.00 25.00 25.00 25.00 60.00 60.00 60.00 FiO2 60 02/17/20 02/17/20 02/17/20 11:35 12:00 12:35 Temp 36.4 Pulse 98 112 Resp 20 28 B/P (MAP) 136/80 (98) Pulse Ox 93 95 90 O2 Delivery Vapotherm Vapotherm Vapotherm O2 Flow Rate 25.00 25.00 60.00 FiO2 60 02/17/20 00:00 Intake Total 3652.5 ml Output Total 1100 ml Balance 2552.5 ml Weight (Pounds): 212 Weight (Ounces): 1.0 Weight (Calculated Kilograms): 96.900063 Constitutional: AAO x 3, well-developed, well-nourished Respiratory: rhonchi (scattered), other (fair air entry) Cardiovascular: regular rate-rhythm; No JVD; tachycardia, S1 and S2 Gastrointestional: No tender; soft, round, audible bowel sounds Extremities: no lower extremity edema bilateral Neurologic/Psychiatric: grossly intact (moves all extremities) Skin: No rash on exposed areas, No ulcerations on exposed areas Results/Procedures: Labs Laboratory Tests 02/16/20 20:06: Glucometer 275H 02/16/20 23:44: Glucometer 314H 02/17/20 03:08: White Blood Count 11.2H, Red Blood Count 3.53L, Hemoglobin 10.2L, Hematocrit 34L , Mean Corpuscular Volume 96, Mean Corpuscular Hemoglobin 29, Mean Corpuscular Hemoglobin Concent 30L, Red Cell Distribution Width 16.1H, Platelet Count 149, Mean Platelet Volume 10.0, Neutrophils (%) (Auto) 90H, Lymphocytes (%) (Auto) 6L , Monocytes (%) (Auto) 4, Eosinophils (%) (Auto) 0, Basophils (%) (Auto) 0, Neutrophils # (Auto) 10.1H, Lymphocytes # (Auto) 0.7L, Monocytes # (Auto) 0.4, Eosinophils # (Auto) 0.0, Basophils # (Auto) 0.0, Sodium Level 140, Potassium Level 4.6, Chloride Level 101, Carbon Dioxide Level 33H, Anion Gap 6, Blood Urea Nitrogen 16, Creatinine 0.97, Estimat Glomerular Filtration Rate 60, BUN/Creat inine Ratio 16, Glucose Level 169H, Calcium Level 9.1, Phosphorus Level 1.9L, Magnesium Level 2.1, B-Type Natriuretic Peptide 182.3H 02/17/20 03:25: Blood Gas Puncture Site RIGHT RADIAL, Blood Gas Patient Temperature 35.6, Arterial Blood pH 7.38, Arterial Blood Partial Pressure CO2 60H, Arterial Blood Partial Pressure O2 63L, Arterial Blood HCO3 35H, Arterial Blood Total CO2 37.3H , Arterial Blood Oxygen Saturation 94, Arterial Blood Base Excess 9.7H, Da Test YES-POS, Blood Gas Ventilator Setting NO, Blood Gas Inspired Oxygen 40% 02/17/20 05:40: Vancomycin Level Trough 18.0 Microbiology 02/15/20 Blood Culture - Preliminary, Resulted No growth Laboratory Tests 02/15/20 16:17 02/16/20 02:32 02/17/20 03:08 A/P: Assessment: Acute on chronic respiratory failure Sepsis and ac exacerbation of COPD due to pneumonia Acute on chronic diastolic CHF MYLENE-1, now resolved Pulmonary HTN JORGE L - CPAP tx Echocardiogram done February 16, 2020 shows normal LV function, 60-65% Cardiac cath of 03/11/[address] Elena showed mild CAD with a significantly elevated LVEDP DM II Tobaccoism: advised to refrain Hyperlipidemia Plan: Acute on chronic diastolic CHF - treated with diuretics - improved Sinus tachycardia - restart BB Change Lasix over to oral starting tomorrow Management of DM and sepsis and COPD is with the Med Svce Advised immediate and complete smoking cessation JENNIE ROGERS MD FACP [place] HOMES Feb 17, 2020 13:45
--- NOTE | 2020-02-17 14:04 | Physician Query Clarification ---
PQ-Conflicting Diagnosis Admission/Discharge Admission Date: Feb 15, 2020 at 17:40 Discharge Date: The medical record reflects the following clinical scenario: Dr. Bazzi, History/Risk Factors: Pneumonia Acute on chronic respiratory failure with hypoxia and hypercapnia. Clinical Findings: WBC 20.8, Band neutrophils 6, Temp 39.5, P 130, Resp 30, BP 156/98, dropping to 87/62. Lactic acid 2.68 rising to 3.25. Blood cultures-2 blood cultures (total of 4 bottles) were collected in ED 02/14 on this patient. Gram positive cocci observed on direct gram stain of one bottle of this culture. Treatment: Decadron injection 4 mg, Albuterol Ipratropium inhalation therapy, IV Solu-Medrol, IV Vancomycin HCI 1,000mg,IV Zosyn, IV Vasopressin 20 unit/Sodium Chloride. Question: Do you agree with the impression of the Left Pneumonia with Septic Shock per Med Student [place]. Please document a response in Progress Note or Discharge Summary. 1. Yes 2. No 3. Other, with explanation of clinical findings 4. Clinically undetermined, no explanation for clinical findings. PHYSICIAN RESPONSE Do you agree w/Consulting Dx?: Yes Please remember a lack of response to the above will prompt a phone page by CDI/Coding staff. In responding to this query, please exercise your independent professional judgment. The purpose of this communication is to more accurately reflect the complexity of your patients condition. The fact that a question is asked does not imply that any particular answer is desired or expected. Thank you for your timely response to this clarification. Requestors name: Lashell Jeffery [facility] Phone # ext [phone] or [phone] THIS PHYSICIAN QUERY FORM IS A PERMANENT PART OF THE MEDICAL RECORD LASHELL JEFFERY Feb 17, 2020 14:04 CLAIRE BAZZI DO Feb 17, 2020 21:01
--- NOTE | 2020-02-17 14:15 | Physician Query Clarification ---
PQ-Further Specificity Admission/Discharge Admission Date: Feb 15, 2020 at 17:40 Discharge Date: The medical record reflects the following clinical scenario: Dr. Bazzi, History/Risk Factors: Sepsis documented in consult-[facility] and Peter. Septic shock documented by Med Student, [place]. Acute on chronic respiratory failure with hypoxia and hypercapnia. Clinical Findings:Blood gases: pH 7.28, pCO2 99, pO2 100, HC03 44, Total CO2 46.4, O2 sats 97%, Base excess 16.9 Treatment:NIV Bilevel 40.00, Vapotherm Question: Can you further specify Acute on chronic respiratory failure with hypoxia and hypercapnia per the clinical indicators above? Please document a response in the Progress Notes or Discharge Summary. 1. Acute on chronic respiratory failure with hypoxia and hypercapnia due to sepsis. 2. Acute on chronic respiratory failure with hypoxia and hypercapnia not related to sepsis. 3. Other, with explanation of the clinical findings. 4. Clinically undetermined, no explanation for the clinical findings. PHYSICIAN RESPONSE Can you specify per above: 2 Please remember a lack of response to the above will prompt a phone page by CDI/Coding staff. In responding to this query, please exercise your independent professional judgment. The purpose of this communication is to more accurately reflect the complexity of your patients condition. The fact that a question is asked does not imply that any particular answer is desired or expected. Thank you for your timely response to this clarification. Requestors name: Chloe Jeffery [facility], [facility] Phone # ext [phone] or [phone] THIS PHYSICIAN QUERY FORM IS A PERMANENT PART OF THE MEDICAL RECORD CHLOE JEFFERY Feb 17, 2020 14:15 CLAIRE BAZZI DO Feb 17, 2020 21:02
--- NOTE | 2020-02-17 14:50 | NUR ---
CM/TOMEKA visited with patient for discharge planning. LEESA/TOMEKA was contacted by patient's primary care nurse stating patient's daughter Eve wanted to talk with social psychologist. CM/SS contacted Eve ([phone]) to discuss questions. She reports that her mother has been admitted to the hospital 3 times since December for her COPD. Eve had questions in regards to caregivers/home health. CM/SS informed her that patient would be able to have home health with Medicaid; just has to be one that accepts Medicaid. She verbalized understanding. The patient's daughter reports she will be here to visit [facility] and they can discuss it further. CM/SS notified the daughter that this sw will leave a patient preference form on the side table for them to look over and discuss. CM/SS emailed [facility] to find out if patient has a coordinator. Patient's coordinator is Cira Yeager ([email or web address]). CM/SS sent Cira an email regarding if patient is on a physical disability waiver and what coverage she has. CM/SS will follow up. CM/SS will continue to follow with patient for discharge planning.
--- NOTE | 2020-02-17 15:37 | NUR ---
Pastoral care visit.
--- NOTE | 2020-02-17 16:04 | NUR ---
1545 PT TRANSFERRED TO ROOM 413 VIA BED ACCOMPANIED BY THIS RN AND TECH, PT PLACED ON OXYMASK AT 15 LITERS PER RT, FOR TRANSFER. ALL PERSONAL BELONGINGS SENT DOWN WITH PT. REPORT GIVEN TO KENDAL Agrawal RN PRIOR TO TRANSFER.
--- NOTE | 2020-02-17 16:43 | NUR ---
This RN took over patient care at this time. patient alert and orientated. verbalizes no needs at this time. family member at bedside
[2020-02-17] MEDS ORDERED: LORATADINE (CLARITIN) 10 MG TAB PO PRN (20:30)
[2020-02-17] MEDS: FAMOTIDINE 20 MG (PEPCID) TABLET PO SCH (20:40)
[2020-02-17] MEDS: glipiZIDE 5 MG (GLUCOTROL) TAB PO SCH (20:40)
[2020-02-17] MEDS: MONTELUKAST 10 MG (SINGULAIR) TAB PO SCH (20:40)
[2020-02-17] MEDS ORDERED: NON-FORMULARY MEDICATION 1 EA EA (Fluticasone Propion/Salmeterol (Fluticasone-Salmeterol 2 INH SCH (21:00)
[2020-02-17] MEDS ORDERED: FAMOTIDINE 20 MG PO SCH (21:00)
[2020-02-17] MEDS: ACETAMINOPHEN 500 MG TAB (TYLENOL) PO PRN (21:10)
[2020-02-17] MEDS: ADVAIR HFA 115/21 MCG INHALER 8 GM IH SCH (21:57)
[2020-02-18 00:10] VITALS: BP 133/70
[2020-02-18] MEDS: PIPERACILLIN/TAZO 4.5 GM/NS 100 ML IV SCH ×6 (00:41→16:48)
[2020-02-18] MEDS: inSUlin ASPART (NovoLOG) 1 UNIT/0.01 ML (CHARGE PER UNIT) SC SCH ×4 (00:42→18:38)
[2020-02-18] MEDS: RT-ALBUTEROL/IPRATROPIUM 3 ML (DUONEB) VIAL INH SCH ×6 (01:53→21:23)
[2020-02-18 03:40] VITALS: BP 133/70
[2020-02-18 04:50] LABS: BASOPHILS % (AUTO) 0 % (0-10); EOSINOPHILS % (AUTO) 1 % (0-10); HEMATOCRIT 33 % (35-52); HEMOGLOBIN 9.8 G/DL (11.5-16.0); LYMPHOCYTES % (AUTO) 21 % (12-44); MEAN CORPUSCULAR HEMOGLOBIN 29 PG (25-34); MEAN CORPUSCULAR HGB CONC 30 G/DL (32-36); MEAN CORPUSCULAR VOLUME 98 FL (80-99); MEAN PLATELET VOLUME 9.5 FL (7.4-10.4); MONOCYTES # (AUTO) 0.4 X 10^3 (0.0-1.0); MONOCYTES % (AUTO) 7 % (0-12); NEUTROPHILS # (AUTO) 3.5 X 10^3 (1.8-7.8); NEUTROPHILS % (AUTO) 71 % (42-75); PLATELET COUNT 127 10^3/uL (130-400); RED CELL DISTRIBUTION WIDTH 15.6 % (10.0-14.5)
[2020-02-18 05:10] LABS: ALANINE AMINOTRANSFERASE 13 U/L (0-55); ALBUMIN 2.8 GM/DL (3.2-4.5); ALKALINE PHOSPHATASE 66 U/L (40-136); BILIRUBIN,TOTAL 0.3 MG/DL (0.1-1.0); BUN/CREATININE RATIO 19; CARBON DIOXIDE 39 MMOL/L (21-32); CHLORIDE 99 MMOL/L (98-107); CREATININE SERUM 0.88 MG/DL (0.60-1.30); GFR ESTIMATED > 60; GLUCOSE 62 MG/DL (70-105); POTASSIUM 3.8 MMOL/L (3.6-5.0); SODIUM 144 MMOL/L (135-145); TOTAL PROTEIN 5.7 GM/DL (6.4-8.2)
[2020-02-18] MEDS: ENOXAPARIN 40 MG/0.4 ML (LOVENOX) SYR SC SCH (06:20)
[2020-02-18] MEDS: LEVOTHYROXINE 75 MCG (LEVOTHROID) TABLET PO SCH (06:22)
[2020-02-18] MEDS: LEVOTHYROXINE 100 MCG (LEVOTHROID) TAB PO SCH (06:22)
[2020-02-18] MEDS: glipiZIDE 5 MG (GLUCOTROL) TAB PO SCH ×2 (06:22→20:53)
[2020-02-18] MEDS: VANCOMYCIN 1250 MG/NS 250 ML IVPB IV SCH ×2 (06:22)
--- NOTE | 2020-02-18 07:01 | Pulmonary Progress Note ---
Subjective Time Seen by a Provider: 06:55 Subjective/Events-last exam PT is doing better. Sepsis Event Evaluation Height, Weight, BMI Height: 5'6.00" Weight: 212lbs. 1.0oz. 96.642637dc; 35.78 BMI Method:Estimated Focused Exam Lactate Level 02/16/20 04:46: Lactic Acid Level 3.25*H 02/16/20 06:46: Lactic Acid Level 2.69*H 02/16/20 08:32: Lactic Acid Level 1.80 Exam Exam Vital Signs Date Time Temp Pulse Resp B/P (MAP) Pulse Ox O2 Delivery O2 Flow Rate FiO2 02/18/20 03:40 36.0 68 20 133/70 (91) 94 NIV Bilevel 40.00 02/18/20 02:01 82 19 94 40.00 02/18/20 01:00 68 02/18/20 00:10 36.2 68 16 133/70 (91) 92 NIV Bilevel 40.00 02/17/20 22:09 82 19 95 40.00 02/17/20 20:35 95 Vapotherm 25.00 50 02/17/20 19:39 35.8 95 16 134/72 (92) 94 Vapotherm 20.00 50.00 02/17/20 19:00 92 02/17/20 18:38 91 Vapotherm 20.00 50 02/17/20 18:32 91 Vapotherm 20.00 50 02/17/20 15:38 36.4 02/17/20 14:43 97 Vapotherm 20.00 50 02/17/20 13:00 73 02/17/20 13:00 73 11 117/79 (92) 97 Vapotherm 25.00 60.00 02/17/20 12:35 90 Vapotherm 25.00 60 02/17/20 12:00 112 28 95 Vapotherm 25.00 60.00 02/17/20 11:35 36.4 98 20 136/80 (98) 93 Vapotherm 02/17/20 11:00 80 17 96 Vapotherm 25.00 60.00 02/17/20 10:07 90 Vapotherm 25.00 60 02/17/20 10:00 93 Vapotherm 25.00 60.00 02/17/20 09:00 78 18 133/68 (89) 95 Vapotherm 25.00 60.00 02/17/20 08:15 90 Vapotherm 25.00 02/17/20 08:00 88 20 120/65 (83) 94 Vapotherm 25.00 60.00 02/17/20 07:31 36.2 02/17/20 07:00 95 02/17/20 07:00 95 26 117/52 (73) 92 Vapotherm 25.00 60.00 I & O 02/18/20 07:00 Intake Total 2562.5 ml Output Total 5225 ml Balance -2662.5 ml Height & Weight Height: 5'6.00" Weight: 212lbs. 1.0oz. 96.326831ma; 35.78 BMI Method:Estimated General Appearance: No Apparent Distress, WD/WN, Chronically ill, Obese HEENT: PERRL/EOMI, Normal ENT Inspection, Pharynx Normal, Moist Mucous Membranes Neck: Full Range of Motion, Normal Inspection, Non Tender, Supple, Carotid Bruit Respiratory: Chest Non Tender, Lungs Clear, Normal Breath Sounds, No Accessory Muscle Use, No Respiratory Distress, Decreased Breath Sounds Cardiovascular: Regular Rate, Rhythm, No Edema, No Gallop, No JVD, No Murmur, Normal Peripheral Pulses Capillary Refill: Less Than 3 Seconds Peripheral Pulses: 2+ Dorsalis Pedis (R), 2+ Left Dors-Pedis (L), 2+ Radial Pulses (R), 2+ Radial Pulses (L) Gastrointestinal: soft, no organomegaly; No distended Extremity: Normal Capillary Refill, Normal Inspection, Normal Range of Motion, Non Tender, No Calf Tenderness, No Pedal Edema Neurologic/Psychiatric: Alert, Oriented x3, No Motor/Sensory Deficits, Normal Mood/Affect Skin: Normal Color, Warm/Dry Lymphatic: No Adenopathy Results Lab Laboratory Tests 02/17/20 03:08 02/18/20 04:40 Assessment/Plan Assessment/Plan Acute on chronic respiratory failure -Pt has been negative for COVID x 2 last was 01/28 -Pt is home bound -Geff pt to NC -On Vapotherm Left pneumonia with septic shock -Pt will need repeat CT of chest 8 wks after discharge. -Echo performed 02/15 -per report, est. EF 60-65%, no wall motion abnormalities -Zosyn and vancomycin -LR 150/hr -Rodriguez cultures -Urine strep legionella ag negative intermittent bradycardia -Consult Cardiology DM II Severe COPD with 5l/min at home JORGE L -Pt has home CPAP Current smoker -Education WESLEY ALMAGUER DO Feb 18, 2020 07:01
[2020-02-18 08:00] VITALS: BP 161/79
[2020-02-18] MEDS: ASPIRIN 81 MG CHEW (CHILDREN'S ASA) PO SCH (08:17)
[2020-02-18] MEDS: FUROSEMIDE 40 MG (LASIX) TAB PO SCH (08:17)
[2020-02-18] MEDS: FAMOTIDINE 20 MG (PEPCID) TABLET PO SCH ×2 (08:17→20:53)
[2020-02-18] MEDS: meTOproloL SUCCINATE 50 MG (TOPROL XL) TAB PO SCH (08:18)
[2020-02-18] MEDS: OMEGA 3 (FISH OIL) 1000 MG CAP PO SCH (08:18)
[2020-02-18] MEDS: PANTOPRAZOLE 40 MG (PROTONIX) VIAL IV SCH (08:18)
[2020-02-18] MEDS: KCL 10 MEQ TAB (MICRO K) PO SCH (08:18)
[2020-02-18] MEDS: FLUTICASONE NASAL SPRAY (FLONASE) 16 GM BTL NS PRN (08:19)
[2020-02-18] MEDS: ACETAMINOPHEN 500 MG TAB (TYLENOL) PO PRN (08:20)
[2020-02-18] MEDS ORDERED: NON-FORMULARY MEDICATION 1 EA EA (Omega-3/Dha/Epa/Fish Oil (Omega-3 Fish Oil 1,000 mg Sftg PO SCH (09:00)
[2020-02-18] MEDS ORDERED: FUROSEMIDE 40 MG (LASIX) TAB PO SCH (09:00)
[2020-02-18] MEDS ORDERED: NON-FORMULARY MEDICATION 1 EA EA (Potassium Chloride 10 MEQ) PO SCH (09:00)
[2020-02-18] MEDS ORDERED: NON-FORMULARY MEDICATION 1 EA EA (Levothyroxine Sodium 175 MCG) PO SCH (09:00)
[2020-02-18] MEDS ORDERED: meTOproloL SUCCINATE 50 MG (TOPROL XL) TAB PO SCH (09:00)
[2020-02-18] MEDS: ADVAIR HFA 115/21 MCG INHALER 8 GM IH SCH (10:09)
[2020-02-18] MEDS: RT-BUDESONIDE NEBS 0.5 MG/2ML (PULMICORT) AMP INH SCH ×2 (10:09→18:27)
--- NOTE | 2020-02-18 10:15 | Physical Therapy Daily Note ---
PT Daily Note-Current Subjective Patient is very agreeable to participate with therapy. Currently on 10L HF O2. Mental Status Patient Orientation: Normal For Age Attachments: Oxygen (10L HF), Enriquez Catheter, IV Transfers SCALE: Activities may be completed with or without assistive devices. 8-Pbmekhnjds-dfsyflu completes the activity by him/herself with no assistance from a helper. 5-Set-up or Clean-up Assistance-helper sets up or cleans up; patient completes activity. [place] assists only prior to or following the activity. 4-Supervision or Touching Assistance-helper provides verbal cues and/or touching/steadying and/or contact guard assistance as patient completes activity. Assistance may be provided throughout the activity or intermittently. 3-Partial/Moderate Assistance-helper does LESS THAN HALF the effort. [place] lifts, holds or supports trunk or limbs, but provides less than half the effort. 2-Substantial/Maximal Assistance-helper does MORE THAN HALF the effort. [place] lifts or holds trunk or limbs and provides more than half the effort. 7-Nitrylvfi-cjiuxm does ALL the effort. Patient does none of the effort to complete the activity. Or, the assistance of 2 or more helpers is required for the patient to complete the activity. If activity was not attempted, code reason: 7-Patient Refused. 9-Not Applicable-not attempted and the patient did not perform the activity bef ore the current illness, exacerbation or injury. 10-Not Attempted due to Environmental Limitations-(lack of equipment, weather r estraints, etc.). 88-Not Attempted due to Medical Conditions or Safety Concerns. Roll Left & Right (QC): 6 Lying to Sitting/Side of Bed(Q: 6 Sit to Stand (QC): 6 Chair/Hje-yf-Vliqg Xfer(QC): 6 Gait Training Does the Patient Walk?: Yes Distance: 350' Walk 10 feet (QC): 6 Walk 50 ft with 2 Turns(QC): 6 Walk 150 ft (QC): 6 Gait Assistive Device: FWW FWW for energy conservation/safe and functional gait sequence Assessment Patient is up in recliner with needs met. Patient progressing with gross motor skills and pulmonary function is slowly improving. PT Care Home Goals Care Home Goals PT Care Home Goals Time Frame: Feb 24, 2020 Roll Left & Right (QC): 6 Sit to Lying (QC): 6 Lying-Sitting on Side/Bed(QC): 6 Sit to Stand (QC): 6 Chair/Shb-rf-Mtgvm Xfer(QC): 6 Walk 10 feet (QC): 6 Walk 50ft with 2 Turns (QC): 6 PT Plan Treatment/Plan Treatment Plan: Continue Plan of Care Treatment Plan: Bed Mobility, Education, Functional Activity Jose, Functional Strength, Gait, Safety, Therapeutic Exercise, Transfers Treatment Duration: Feb 24, 2020 Frequency: 6 times per week Estimated Hrs Per Day: .25 hour per day Patient and/or Family Agrees t: Yes Time/GCodes Time In: 920 Time Out: 932 Total Billed Treatment Time: 12 Total Billed Treatment 1 visit FA 12 min KARY CANALES PT Feb 18, 2020 10:14
--- NOTE | 2020-02-18 11:51 | NUR ---
CM/SS follow up. Home Health: CM/SS visited with patient in regards to home health. CM/SS provided education and information on how home health works and helps for COPD patients. She verbalized understanding. The patient states that she is not opposed to it but would like to speak with her daughter first. DME: The patient is a client of [facility] for her Oxygen. She reports that her baseline is 4L continuous. She also has a walker. CM/SS contacted the patient's daughter to give an update on home health conversation. She reports that she did talk with the patient some last night about it and believe she will want to. She reports that she is not visiting patient today but will call to discuss further. CM/SS attempted to call Lola ([phone]) back from [facility]. A voice mail was left with call back number. CM/SS will continue to follow. Addendum: 02/18/20 at 1600 by DIEGO OLIVARES Lola (rn case manager hospice) called and reported that the patient has what is called title 19 basic Medicaid. Therefore, patient is not currently on a physical disability waver. However, she reports that the patient is on the physical disability waiver wait list. The patient would have room and board coverage through her insurance if needed.
[2020-02-18 12:00] VITALS: BP 111/67
--- NOTE | 2020-02-18 12:20 | Progress Note - Hospitalist ---
Subjective HPI/CC On Admission Date Seen by Provider: Feb 18, 2020 Time Seen by Provider: 10:15 CC: SOB HPI: This is a 54yoWF with known severe in-stage COPD who continues to smoke who I just discharged two weeks ago who presented to the ER with SOB, had a central line placed in the ICU overnight. She had been COVID swabbed the night before, hadn't been out or exposed to anyone in a low prevalence state so she was star mayra on aggressive IV steroids along with BiPAP and nebulizer treatments and she really doesn't want to be intubated. Her BiPAP settings are at 16 and 12, her HR is 49, she is a bit sedated right now and white count is 25, 000. Subjective/Events-last exam Pt doing a lot better Bowels are moving PT and OT today Off Vapotherm on 9 liters of O2 by nasal cannula Will DC telemetry Checked meds and labs Review of Systems General: Fatigue, Malaise Pulmonary: Dyspnea Neurological: Weakness Focused Exam Lactate Level 02/16/20 04:46: Lactic Acid Level 3.25*H 02/16/20 06:46: Lactic Acid Level 2.69*H 02/16/20 08:32: Lactic Acid Level 1.80 Objective Exam Vital Signs Vital Signs Date Time Temp Pulse Resp B/P (MAP) Pulse Ox O2 Delivery O2 Flow Rate FiO2 02/18/20 20:30 36.1 50 16 137/65 (89) 94 High Flow N/C 7.00 02/18/20 06:49 50 Capillary Refill : Less Than 3 Seconds General Appearance: No Apparent Distress, WD/WN HEENT: PERRL/EOMI, Normal ENT Inspection, Pharynx Normal, Moist Mucous Membranes Neck: Full Range of Motion, Normal Inspection, Non Tender, Supple, Carotid Bruit Respiratory: Chest Non Tender, Normal Breath Sounds, No Respiratory Distress, Accessory Muscle Use, Decreased Breath Sounds Cardiovascular: Regular Rate, Rhythm, No Edema, No Gallop, No JVD, No Murmur, Normal Peripheral Pulses Gastrointestinal: Normal Bowel Sounds, No Organomegaly, No Pulsatile Mass, Non Tender, Soft Back: Normal Inspection, No CVA Tenderness, No Vertebral Tenderness Extremity: Normal Capillary Refill, Normal Inspection, Normal Range of Motion, Non Tender, No Calf Tenderness, No Pedal Edema Neurologic/Psychiatric: Alert, Oriented x3, No Motor/Sensory Deficits, Normal Mood/Affect Skin: Normal Color, Warm/Dry Lymphatic: No Adenopathy Results/Procedures Lab Laboratory Tests 02/18/20 04:40 Patient resulted labs reviewed. Assessment/Plan Assessment and Plan Assess & Plan/Chief Complaint Assessment: Acute on chronic respiratory failure DM HTN AECOPD Plan: Wean Bipap Vapotherm Up in chair BM regimen May transfer to 4th floor doing well 02/18/20: DC Telemetry Wean off Vapotherm PT/OT Bowels are moving Diagnosis/Problems Diagnosis/Problems (1) Acute on chronic respiratory failure with hypoxia and hypercapnia Status: Acute (2) CHF (congestive heart failure) Status: Acute (3) Hypothyroidism Status: Chronic (4) HTN (hypertension) Status: Chronic (5) Oxygen dependent Status: Chronic Clinical Quality Measures DVT/VTE Risk/Contraindication: Risk Factor Score Per Nursin RFS Level Per Nursing on Admit: 4+=Very High CLAIRE BAZZI DO Feb 18, 2020 12:20
--- NOTE | 2020-02-18 13:58 | Progress Note - Cardiology ---
Cardiology SOAP Progress Note Subjective: Shortness of breath gradually improving No cp or palp or syncope No focal weakness Gen weakness present No n/v/d Objective: I&O/Vital Signs 02/18/20 02/18/20 02/18/20 02/18/20 02:01 03:40 07:00 08:00 Temp 36.0 36.2 Pulse 82 68 76 75 Resp 19 20 22 B/P (MAP) 133/70 (91) 161/79 (106) Pulse Ox 94 94 96 O2 Delivery NIV Bilevel High Flow N/C O2 Flow Rate 40.00 40.00 10.00 02/18/20 02/18/20 09:00 12:21 Pulse 63 O2 Delivery High Flow N/C O2 Flow Rate 10.00 02/18/20 00:00 Intake Total 1342.5 ml Output Total 2900 ml Balance -1557.5 ml Weight (Pounds): 212 Weight (Ounces): 1.0 Weight (Calculated Kilograms): 96.259846 Constitutional: AAO x 3, well-developed, well-nourished Respiratory: rhonchi (scattered), other (fair air entry) Cardiovascular: regular rate-rhythm; No JVD; tachycardia, S1 and S2 Gastrointestional: No tender; soft, round, audible bowel sounds Extremities: no lower extremity edema bilateral Neurologic/Psychiatric: grossly intact (moves all extremities) Skin: No rash on exposed areas, No ulcerations on exposed areas Results/Procedures: Labs Laboratory Tests 02/17/20 18:10: Glucometer 213H 02/18/20 00:17: Glucometer 122H 02/18/20 04:40: White Blood Count 5.0, Red Blood Count 3.34L, Hemoglobin 9.8L, Hematocrit 33L, Mean Corpuscular Volume 98, Mean Corpuscular Hemoglobin 29, Mean Corpuscular Hemoglobin Concent 30L, Red Cell Distribution Width 15.6H, Platelet Count 127L, Mean Platelet Volume 9.5, Neutrophils (%) (Auto) 71, Lymphocytes (%) (Auto) 21, Monocytes (%) (Auto) 7, Eosinophils (%) (Auto) 1, Basophils (%) (Auto) 0, Ne utrophils # (Auto) 3.5, Lymphocytes # (Auto) 1.0, Monocytes # (Auto) 0.4, Eosinophils # (Auto) 0.0, Basophils # (Auto) 0.0, Sodium Level 144, Potassium Level 3.8, Chloride Level 99, Carbon Dioxide Level 39H, Anion Gap 6, Blood Urea Nitrogen 17, Creatinine 0.88, Estimat Glomerular Filtration Rate > 60, BUN/Creatinine Ratio 19, Glucose Level 62L, Calcium Level 9.0, Corrected Calcium 10.0, Total Bilirubin 0.3, Aspartate Amino Transf (AST/SGOT) 12, Alanine A minotransferase (ALT/SGPT) 13, Alkaline Phosphatase 66, Total Protein 5.7L, Albumin 2.8L 02/18/20 05:33: Glucometer 75 02/18/20 12:08: Glucometer 89 Microbiology 02/15/20 Blood Culture - Preliminary, Resulted No growth Laboratory Tests 02/17/20 03:08 02/18/20 04:40 A/P: Assessment: Acute on chronic respiratory failure Sepsis and ac exacerbation of COPD due to pneumonia Acute on chronic diastolic CHF MYLENE-1, now resolved Pulmonary HTN JORGE L - CPAP tx Echocardiogram done February 16, 2020 shows normal LV function, 60-65% Cardiac cath of 03/11/[address] Elena showed mild CAD with a significantly elevated LVEDP DM II Tobaccoism: advised to refrain Hyperlipidemia Plan: Change Lasix over to oral Management of DM and sepsis and COPD is with the Med Svce Advised immediate and complete smoking cessation JENNIE ROGERS MD FACP [facility] Feb 18, 2020 13:58
[2020-02-18] MEDS ORDERED: NON-FORMULARY MEDICATION 1 EA EA (Paroxetine HCl 40 MG) PO SCH (15:00)
[2020-02-18 15:30] VITALS: BP 121/70
[2020-02-18] MEDS: PARoxetine 20 MG (PAXIL) TAB PO SCH (16:48)
[2020-02-18 20:30] VITALS: BP 137/65
[2020-02-18] MEDS: MONTELUKAST 10 MG (SINGULAIR) TAB PO SCH (20:53)
[2020-02-19] VITALS (7 sets, daily range): BP systolic 111–179; BP diastolic 69–92
[2020-02-19] MEDS: PIPERACILLIN/TAZO 4.5 GM/NS 100 ML IV SCH ×6 (00:18→15:48)
[2020-02-19] MEDS: inSUlin ASPART (NovoLOG) 1 UNIT/0.01 ML (CHARGE PER UNIT) SC SCH ×4 (00:27→17:46)
[2020-02-19] MEDS: ADVAIR HFA 115/21 MCG INHALER 8 GM IH SCH ×3 (02:11→18:36)
[2020-02-19] MEDS: RT-ALBUTEROL/IPRATROPIUM 3 ML (DUONEB) VIAL INH SCH ×6 (02:15→22:22)
--- NOTE | 2020-02-19 05:07 | Pulmonary Progress Note ---
Subjective Time Seen by a Provider: 05:05 Sepsis Event Evaluation Height, Weight, BMI Height: 5'6.00" Weight: 212lbs. 1.0oz. 96.983190bi; 35.78 BMI Method:Estimated Focused Exam Lactate Level 02/16/20 06:46: Lactic Acid Level 2.69*H 02/16/20 08:32: Lactic Acid Level 1.80 Exam Exam Vital Signs Date Time Temp Pulse Resp B/P (MAP) Pulse Ox O2 Delivery O2 Flow Rate FiO2 02/19/20 03:48 35.8 65 16 141/74 (96) 94 NIV Bilevel 6.00 02/19/20 02:17 59 19 94 40.00 02/19/20 02:17 94 NIV Bilevel 02/19/20 02:15 94 NIV Bilevel 02/19/20 00:37 36.6 60 20 111/69 (83) 95 NIV Bilevel 6.00 02/18/20 21:24 90 High Flow N/C 6.00 02/18/20 20:55 High Flow N/C 6.00 02/18/20 20:30 36.1 50 16 137/65 (89) 94 High Flow N/C 7.00 02/18/20 18:32 97 High Flow N/C 7.00 02/18/20 18:29 97 High Flow N/C 7.00 02/18/20 15:30 36.2 53 16 121/70 (87) 100 High Flow N/C 7.00 02/18/20 14:07 97 High Flow N/C 7.00 02/18/20 12:21 63 02/18/20 12:00 36.5 70 20 111/67 (82) 96 High Flow N/C 9.00 02/18/20 10:09 95 High Flow N/C 9.00 02/18/20 10:09 High Flow N/C 9.00 02/18/20 10:08 90 High Flow N/C 9.00 02/18/20 09:00 High Flow N/C 10.00 02/18/20 08:00 36.2 75 22 161/79 (106) 96 High Flow N/C 10.00 02/18/20 07:13 92 High Flow N/C 9.00 02/18/20 07:00 76 02/18/20 06:49 92 Vapotherm 20.00 50 I & O 02/19/20 07:00 Intake Total 2300 ml Output Total 4000 ml Balance -1700 ml Height & Weight Height: 5'6.00" Weight: 212lbs. 1.0oz. 96.517138ft; 35.78 BMI Method:Estimated General Appearance: No Apparent Distress, WD/WN HEENT: PERRL/EOMI, Normal ENT Inspection, Pharynx Normal, Moist Mucous Membranes Neck: Full Range of Motion, Normal Inspection, Non Tender, Supple, Carotid Bruit Respiratory: Chest Non Tender, Normal Breath Sounds, No Respiratory Distress, Accessory Muscle Use, Decreased Breath Sounds Cardiovascular: Regular Rate, Rhythm, No Edema, No Gallop, No JVD, No Murmur, Normal Peripheral Pulses Capillary Refill: Less Than 3 Seconds Peripheral Pulses: 2+ Dorsalis Pedis (R), 2+ Left Dors-Pedis (L), 2+ Radial Pulses (R), 2+ Radial Pulses (L) Gastrointestinal: soft, no organomegaly; No distended Extremity: Normal Capillary Refill, Normal Inspection, Normal Range of Motion, Non Tender, No Calf Tenderness, No Pedal Edema Neurologic/Psychiatric: Alert, Oriented x3, No Motor/Sensory Deficits, Normal Mood/Affect Skin: Normal Color, Warm/Dry Lymphatic: No Adenopathy Results Lab Laboratory Tests 02/18/20 04:40 Assessment/Plan Assessment/Plan Acute on chronic respiratory failure -Pt has been negative for COVID x 2 last was 01/28 -Pt is home bound -Titrate oxygen down Left pneumonia with septic shock -Pt will need repeat CT of chest 8 wks after discharge. -Echo performed 02/15 -per report, est. EF 60-65%, no wall motion abnormalities -Zosyn and vancomycin d/c'd -Rodriguez cultures -Urine strep legionella ag negative intermittent bradycardia -Consult Cardiology DM II Severe COPD with 5l/min at home JORGE L -Pt has home CPAP Current smoker -Education WESLEY ALMAGUER DO Feb 19, 2020 05:07
--- NOTE | 2020-02-19 06:13 | Progress Note - Hospitalist ---
Subjective HPI/CC On Admission Date Seen by Provider: Feb 19, 2020 Time Seen by Provider: 10:00 CC: SOB HPI: This is a 54yoWF with known severe in-stage COPD who continues to smoke who I just discharged two weeks ago who presented to the ER with SOB, had a central line placed in the ICU overnight. She had been COVID swabbed the night before, hadn't been out or exposed to anyone in a low prevalence state so she was star mayra on aggressive IV steroids along with BiPAP and nebulizer treatments and she really doesn't want to be intubated. Her BiPAP settings are at 16 and 12, her HR is 49, she is a bit sedated right now and white count is 25, 000. Subjective/Events-last exam Patient feels better Wearing 5L/min and uses 4L/min at home No pain reported BM+ No dyspnea Review of Systems General: Fatigue, Malaise Neurological: Weakness Focused Exam Lactate Level Objective Exam Vital Signs Vital Signs Date Time Temp Pulse Resp B/P (MAP) Pulse Ox O2 Delivery O2 Flow Rate FiO2 02/19/20 19:52 36.0 84 18 149/76 (100) 90 Nasal Cannula 5.00 02/18/20 06:49 50 Capillary Refill : Less Than 3 Seconds General Appearance: No Apparent Distress, WD/WN, Chronically ill, Obese HEENT: PERRL/EOMI, Normal ENT Inspection, Pharynx Normal, Moist Mucous Membranes Neck: Full Range of Motion, Normal Inspection, Non Tender, Supple, Carotid Bruit Respiratory: Chest Non Tender, Lungs Clear, Normal Breath Sounds, No Accessory Muscle Use, No Respiratory Distress, Decreased Breath Sounds Cardiovascular: Regular Rate, Rhythm, No Edema, No Gallop, No JVD, No Murmur, Normal Peripheral Pulses Gastrointestinal: Normal Bowel Sounds, No Organomegaly, No Pulsatile Mass, Non Tender, Soft Back: Normal Inspection, No CVA Tenderness, No Vertebral Tenderness Extremity: Normal Capillary Refill, Normal Inspection, Normal Range of Motion, Non Tender, No Calf Tenderness, No Pedal Edema Neurologic/Psychiatric: Alert, Oriented x3, No Motor/Sensory Deficits, Normal Mood/Affect Skin: Normal Color, Warm/Dry Lymphatic: No Adenopathy Results/Procedures Lab Laboratory Tests 02/19/20 06:15 Patient resulted labs reviewed. Assessment/Plan Assessment and Plan Assess & Plan/Chief Complaint Assessment: Acute on chronic respiratory failure DM HTN AECOPD Plan: Wean Bipap Vapotherm Up in chair BM regimen May transfer to 4th floor doing well 02/18/20: DC Telemetry Wean off Vapotherm PT/OT Bowels are moving 02/19/20: Continue to wean O2 to baseline 4 Liters Continue aggressive Pulmonary treatment Discharge home this or Saturday Diagnosis/Problems Diagnosis/Problems (1) Acute on chronic respiratory failure with hypoxia and hypercapnia Status: Acute (2) CHF (congestive heart failure) Status: Acute (3) Hypothyroidism Status: Chronic (4) HTN (hypertension) Status: Chronic (5) Oxygen dependent Status: Chronic Clinical Quality Measures DVT/VTE Risk/Contraindication: Risk Factor Score Per Nursin RFS Level Per Nursing on Admit: 4+=Very High CLAIRE BAZZI DO Feb 19, 2020 06:13
[2020-02-19] MEDS: glipiZIDE 5 MG (GLUCOTROL) TAB PO SCH ×2 (06:15→20:55)
[2020-02-19] MEDS: ENOXAPARIN 40 MG/0.4 ML (LOVENOX) SYR SC SCH (06:15)
[2020-02-19] MEDS: LEVOTHYROXINE 75 MCG (LEVOTHROID) TABLET PO SCH (06:15)
[2020-02-19] MEDS: LEVOTHYROXINE 100 MCG (LEVOTHROID) TAB PO SCH (06:17)
[2020-02-19 06:35] LABS: BASOPHILS % (AUTO) 0 % (0-10); EOSINOPHILS # (AUTO) 0.1 10^3/uL (0.0-0.3); EOSINOPHILS % (AUTO) 2 % (0-10); HEMATOCRIT 34 % (35-52); HEMOGLOBIN 10.1 G/DL (11.5-16.0); LYMPHOCYTES # (AUTO) 0.7 X 10^3 (1.0-4.0); LYMPHOCYTES % (AUTO) 16 % (12-44); MEAN CORPUSCULAR HEMOGLOBIN 30 PG (25-34); MEAN CORPUSCULAR HGB CONC 29 G/DL (32-36); MEAN CORPUSCULAR VOLUME 100 FL (80-99); MEAN PLATELET VOLUME 9.3 FL (7.4-10.4); MONOCYTES # (AUTO) 0.3 X 10^3 (0.0-1.0); MONOCYTES % (AUTO) 6 % (0-12); NEUTROPHILS # (AUTO) 3.6 X 10^3 (1.8-7.8); NEUTROPHILS % (AUTO) 77 % (42-75); PLATELET COUNT 132 10^3/uL (130-400); RED CELL DISTRIBUTION WIDTH 15.6 % (10.0-14.5); WHITE BLOOD COUNT 4.7 10^3/uL (4.3-11.0)
[2020-02-19 06:42] LABS: ALBUMIN 2.9 GM/DL (3.2-4.5)
[2020-02-19 06:43] LABS: CHLORIDE 97 MMOL/L (98-107); POTASSIUM 4.2 MMOL/L (3.6-5.0); SODIUM 144 MMOL/L (135-145)
[2020-02-19 06:45] LABS: GLUCOSE 112 MG/DL (70-105); TOTAL PROTEIN 5.6 GM/DL (6.4-8.2)
[2020-02-19 06:46] LABS: CARBON DIOXIDE 42 MMOL/L (21-32)
[2020-02-19 06:47] LABS: BILIRUBIN,TOTAL 0.4 MG/DL (0.1-1.0)
[2020-02-19 06:48] LABS: ALKALINE PHOSPHATASE 63 U/L (40-136)
[2020-02-19 06:49] LABS: CREATININE SERUM 0.79 MG/DL (0.60-1.30); GFR ESTIMATED > 60
[2020-02-19 06:50] LABS: BUN/CREATININE RATIO 19
[2020-02-19 06:51] LABS: ALANINE AMINOTRANSFERASE 11 U/L (0-55)
[2020-02-19] MEDS: ASPIRIN 81 MG CHEW (CHILDREN'S ASA) PO SCH (09:31)
[2020-02-19] MEDS: FAMOTIDINE 20 MG (PEPCID) TABLET PO SCH ×2 (09:31→20:55)
[2020-02-19] MEDS: PANTOPRAZOLE 40 MG (PROTONIX) TAB PO SCH (09:31)
[2020-02-19] MEDS: meTOproloL SUCCINATE 50 MG (TOPROL XL) TAB PO SCH (09:31)
[2020-02-19] MEDS: FUROSEMIDE 40 MG (LASIX) TAB PO SCH (09:31)
[2020-02-19] MEDS: OMEGA 3 (FISH OIL) 1000 MG CAP PO SCH (09:31)
[2020-02-19] MEDS: KCL 10 MEQ TAB (MICRO K) PO SCH (09:31)
--- NOTE | 2020-02-19 09:58 | Progress Note - Cardiology ---
Cardiology SOAP Progress Note Subjective: Sitting up in bed. Wants to go home. Feels her breathing is at her usual baseline. No c/o CP or palpitations. Objective: I&O/Vital Signs 02/19/20 02/19/20 02/19/20 02/19/20 02:15 02:17 02:17 03:48 Temp 35.8 Pulse 59 65 Resp 19 16 B/P (MAP) 141/74 (96) Pulse Ox 94 94 94 94 O2 Delivery NIV Bilevel NIV Bilevel NIV Bilevel O2 Flow Rate 40.00 6.00 02/19/20 02/19/20 02/19/20 02/19/20 06:32 06:36 08:00 09:00 Temp 35.7 Pulse 75 Resp 20 B/P (MAP) 179/92 (121) Pulse Ox 92 92 91 O2 Delivery High Flow N/C High Flow N/C NIV Bilevel High Flow N/C O2 Flow Rate 5.00 5.00 5.00 5.00 02/19/20 10:19 Pulse Ox 92 O2 Delivery High Flow N/C O2 Flow Rate 5.00 02/19/20 00:00 Intake Total 2300 ml Output Total 4000 ml Balance -1700 ml Weight (Pounds): 212 Weight (Ounces): 1.0 Weight (Calculated Kilograms): 96.580160 Constitutional: AAO x 3, well-developed, well-nourished Respiratory: rhonchi (scattered), other (fair air entry) Cardiovascular: regular rate-rhythm; No JVD; S1 and S2 Gastrointestional: No tender; soft, round, audible bowel sounds Extremities: no lower extremity edema bilateral Neurologic/Psychiatric: grossly intact (moves all extremities) Skin: No rash on exposed areas, No ulcerations on exposed areas Results/Procedures: Labs Laboratory Tests 02/18/20 17:01: Glucometer 135H 02/18/20 20:55: Glucometer 163H 02/19/20 00:23: Glucometer 215H 02/19/20 06:15: White Blood Count 4.7, Red Blood Count 3.42L, Hemoglobin 10.1L, Hematocrit 34L, Mean Corpuscular Volume 100H, Mean Corpuscular Hemoglobin 30, Mean Corpuscular Hemoglobin Concent 29L, Red Cell Distribution Width 15.6H, Platelet Count 132, Mean Platelet Volume 9.3, Neutrophils (%) (Auto) 77H, Lymphocytes (%) (Auto) 16, Monocytes (%) (Auto) 6, Eosinophils (%) (Auto) 2, Basophils (%) (Auto) 0, Neutrophils # (Auto) 3.6, Lymphocytes # (Auto) 0.7L, Monocytes # (Auto) 0.3, Eosinophils # (Auto) 0.1, Basophils # (Auto) 0.0, Sodium Level 144, Potassium Level 4.2, Chloride Level 97L, Carbon Dioxide Level 42H, Anion Gap 5, Blood Urea Nitrogen 15, Creatinine 0.79, Estimat Glomerular Filtration Rate > 60, BUN/Creatinine Ratio 19, Glucose Level 112H, Calcium Level 9.0, Corrected Calcium 9.9, Total Bilirubin 0.4, Aspartate Amino Transf (AST/SGOT) 11, Alanine Aminotransferase (ALT/SGPT) 11, Alkaline Phosphatase 63, Total Protein 5.6L, Albumin 2.9L 02/19/20 11:43: Glucometer 124H Microbiology 02/15/20 Blood Culture - Preliminary, Resulted No growth A/P: Assessment: Acute on chronic respiratory failure Sepsis and ac exacerbation of COPD due to pneumonia Acute on chronic diastolic CHF - clinically improved MYLENE-1, now resolved Pulmonary HTN JORGE L - CPAP tx Echocardiogram done February 16, 2020 shows normal LV function, 60-65% Cardiac cath of 03/11/[address] Elena showed mild CAD with a significantly elevated LVEDP DM II Tobaccoism: advised to refrain Hyperlipidemia Plan: Continue current regimen Management of DM and sepsis and COPD is with the Med Svce Advised immediate and complete smoking cessation F/U with Dr. Elena as out pt ANDERSON PRADOP Feb 19, 2020 09:58
[2020-02-19] MEDS: RT-BUDESONIDE NEBS 0.5 MG/2ML (PULMICORT) AMP INH SCH ×2 (10:18→18:28)
--- NOTE | 2020-02-19 10:18 | Progress Note - Cardiology ---
Cardiology SOAP Progress Note Subjective: Shortness of breath gradually improving No cp or palp or syncope Gen weakness No focal weakness No n/v/d Objective: I&O/Vital Signs 02/19/20 02/19/20 02/19/20 02/19/20 00:37 02:15 02:17 02:17 Temp 36.6 Pulse 60 59 Resp 20 19 B/P (MAP) 111/69 (83) Pulse Ox 95 94 94 94 O2 Delivery NIV Bilevel NIV Bilevel NIV Bilevel O2 Flow Rate 6.00 40.00 02/19/20 02/19/20 02/19/20 02/19/20 03:48 06:32 06:36 08:00 Temp 35.8 35.7 Pulse 65 75 Resp 16 20 B/P (MAP) 141/74 (96) 179/92 (121) Pulse Ox 94 92 92 91 O2 Delivery NIV Bilevel High Flow N/C High Flow N/C NIV Bilevel O2 Flow Rate 6.00 5.00 5.00 5.00 02/19/20 00:00 Intake Total 2300 ml Output Total 4000 ml Balance -1700 ml Weight (Pounds): 212 Weight (Ounces): 1.0 Weight (Calculated Kilograms): 96.431529 Constitutional: AAO x 3, well-developed, well-nourished Respiratory: rhonchi (scattered), other (fair air entry) Cardiovascular: regular rate-rhythm; No JVD; S1 and S2 Gastrointestional: No tender; soft, round, audible bowel sounds Extremities: no lower extremity edema bilateral Neurologic/Psychiatric: grossly intact (moves all extremities) Skin: No rash on exposed areas, No ulcerations on exposed areas Results/Procedures: Labs Laboratory Tests 02/18/20 12:08: Glucometer 89 02/18/20 17:01: Glucometer 135H 02/18/20 20:55: Glucometer 163H 02/19/20 00:23: Glucometer 215H 02/19/20 06:15: White Blood Count 4.7, Red Blood Count 3.42L, Hemoglobin 10.1L, Hematocrit 34L, Mean Corpuscular Volume 100H, Mean Corpuscular Hemoglobin 30, Mean Corpuscular Hemoglobin Concent 29L, Red Cell Distribution Width 15.6H, Platelet Count 132, Mean Platelet Volume 9.3, Neutrophils (%) (Auto) 77H, Lymphocytes (%) (Auto) 16, Monocytes (%) (Auto) 6, Eosinophils (%) (Auto) 2, Basophils (%) (Auto) 0, Neutrophils # (Auto) 3.6, Lymphocytes # (Auto) 0.7L, Monocytes # (Auto) 0.3, Eosinophils # (Auto) 0.1, Basophils # (Auto) 0.0, Sodium Level 144, Potassium Level 4.2, Chloride Level 97L, Carbon Dioxide Level 42H, Anion Gap 5, Blood Urea Nitrogen 15, Creatinine 0.79, Estimat Glomerular Filtration Rate > 60, BUN/Creatinine Ratio 19, Glucose Level 112H, Calcium Level 9.0, Corrected Calcium 9.9, Total Bilirubin 0.4, Aspartate Amino Transf (AST/SGOT) 11, Alanine Aminotransferase (ALT/SGPT) 11, Alkaline Phosphatase 63, Total Protein 5.6L, Albumin 2.9L Microbiology 02/15/20 Blood Culture - Preliminary, Resulted No growth A/P: Assessment: Acute on chronic respiratory failure Sepsis and ac exacerbation of COPD due to pneumonia Acute on chronic diastolic CHF - clinically improved MYLENE-1, now resolved Pulmonary HTN JORGE L - CPAP tx Echocardiogram done February 16, 2020 shows normal LV function, 60-65% Cardiac cath of 03/11/[address] Elena showed mild CAD with a significantly elevated LVEDP DM II Tobaccoism: advised to refrain Hyperlipidemia Plan: Continue current regimen Management of DM and sepsis and COPD is with the Med Svce Advised immediate and complete smoking cessation F/U with Dr. Elena as out pt JENNIE ROGERS MD FACP FAC CCDS Feb 19, 2020 10:18
--- NOTE | 2020-02-19 10:57 | Physical Therapy Daily Note ---
PT Daily Note-Current Subjective Patient agrees to PT. 5L O2 HF NC in place Mental Status Patient Orientation: Normal For Age Attachments: Oxygen, Enriquez Catheter, IV Transfers SCALE: Activities may be completed with or without assistive devices. 3-Qntslpcugq-nbonpfm completes the activity by him/herself with no assistance from a helper. 5-Set-up or Clean-up Assistance-helper sets up or cleans up; patient completes activity. [place] assists only prior to or following the activity. 4-Supervision or Touching Assistance-helper provides verbal cues and/or touching/steadying and/or contact guard assistance as patient completes activity. Assistance may be provided throughout the activity or intermittently. 3-Partial/Moderate Assistance-helper does LESS THAN HALF the effort. [place] lifts, holds or supports trunk or limbs, but provides less than half the effort. 2-Substantial/Maximal Assistance-helper does MORE THAN HALF the effort. [place] lifts or holds trunk or limbs and provides more than half the effort. 6-Iyebsxfic-xmpwqe does ALL the effort. Patient does none of the effort to complete the activity. Or, the assistance of 2 or more helpers is required for the patient to complete the activity. If activity was not attempted, code reason: 7-Patient Refused. 9-Not Applicable-not attempted and the patient did not perform the activity before the current illness, exacerbation or injury. 10-Not Attempted due to Environmental Limitations-(lack of equipment, weather restraints, etc.). 88-Not Attempted due to Medical Conditions or Safety Concerns. Roll Left & Right (QC): 6 Sit to Lying (QC): 6 Lying to Sitting/Side of Bed(Q: 6 Sit to Stand (QC): 6 Gait Training Does the Patient Walk?: Yes Distance: 275' Walk 10 feet (QC): 5 Walk 50 ft with 2 Turns(QC): 5 Walk 150 ft (QC): 5 Gait Assistive Device: FWW safe and functional with no deviation Assessment Noted increase SOA with activity on this date. Patient requested inhaler and RT notified. Patient did recover after 3 minutes. Plan dismissal this weekend per patient. PT Fci Goals Fci Goals PT Fci Goals Time Frame: Feb 24, 2020 Roll Left & Right (QC): 6 Sit to Lying (QC): 6 Lying-Sitting on Side/Bed(QC): 6 Sit to Stand (QC): 6 Chair/Plf-ht-Avezv Xfer(QC): 6 Walk 10 feet (QC): 6 Walk 50ft with 2 Turns (QC): 6 PT Plan Treatment/Plan Treatment Plan: Continue Plan of Care Treatment Plan: Bed Mobility, Education, Functional Activity Jose, Functional Strength, Gait, Safety, Therapeutic Exercise, Transfers Treatment Duration: Feb 24, 2020 Frequency: 6 times per week Estimated Hrs Per Day: .25 hour per day Patient and/or Family Agrees t: Yes Time/GCodes Time In: 1020 Time Out: 1034 Total Billed Treatment Time: 14 Total Billed Treatment 1 visit FA 14 min KARY CANALES PT Feb 19, 2020 10:57
--- NOTE | 2020-02-19 12:49 | D/C HH Face to Face Order ---
D/C Face to Face Orders Reconcile Patient Problems Problems Reviewed?: Yes Instructions for Patient [facility] Patient Instructions/FollowUp: PSYCHIATRIC 1 week Physician to follow Patient: PSYCHIATRIC Discharge Diet for Home: ADA Diet Patient Problems: severe copd Patient Data-Allergies,Ht & Wt Patient Allergies: Coded Allergies: NKANo Known Allergies (Unverified Allergy, Mild, 05/01/09) Height (Feet): 5 Height (Inches): 6.00 Weight (Pounds): 212 Weight (Ounces): 1.0 Home Health Need/Face to Face Date of Face to Face: Feb 19, 2020 Clinical Findings: Generalized weakness and fatigue, Muscle weakness, Shortness of breath I have seen Pt arvg-zs-ebtj: Yes Discharged To: Home Diagnosis/Conditions: copd Patient is Homebound due to: Shortness of breath/distress Homebound Status Due to the above stated illness, injury or surgical procedure (medical condition or diagnosis) and associated clinical findings, the patient is homebou nd because of his/her inability to leave home except with aid of a supportive device and/or person AND leaving the home requires a considerable and taxing effort or is medically contraindicated. Pt req the following assistanc: [facility] Nursing Orders Home Health Services Order: Livestock Ha[employer]ier-Evaluate & Treat, Physical Therapy-Evaluate & Treat Home Health Infusion Therapy Line Start Date: Feb 15, 2020 Certify Stmt I certify that this patient is under my care and that I, a nurse practitioner or a physician; a child life assistant working with me, had a face to face encounter that - meets the physician face to face encounter requirements with this patient as dated. CLAIRE BAZZI DO Feb 19, 2020 12:48
--- NOTE | 2020-02-19 13:14 | NUR ---
ARJUN finalized discharge planning. Plan: The patient will discharge home with [facility]. Home Health: The patient and her daughter [facility]; however, Martina reported they do not accept Medicaid. ARJUN spoke with the patient and received the second choice. She chose [facility]. ARJUN contacted Ajith at the agency and made referral. ARJUN left a note for the loading unit operator and primary care nurse (pass on with report)to call when patient discharges. No further needs at this time. Addendum: 02/22/20 at 1015 by DIEGO ECKERT Late Entry: ARJUN received verbal orders from Dr. Lemus for home health that included Nursing, Physical therapy, and Occupational therapy on Saturday the 18 of February.
[2020-02-19] MEDS: PARoxetine 20 MG (PAXIL) TAB PO SCH (15:18)
[2020-02-19] MEDS: MONTELUKAST 10 MG (SINGULAIR) TAB PO SCH (20:55)
[2020-02-20] MEDS: inSUlin ASPART (NovoLOG) 1 UNIT/0.01 ML (CHARGE PER UNIT) SC SCH ×3 (00:03→11:40)
[2020-02-20] MEDS: PIPERACILLIN/TAZO 4.5 GM/NS 100 ML IV SCH ×2 (00:03)
[2020-02-20] MEDS: RT-ALBUTEROL/IPRATROPIUM 3 ML (DUONEB) VIAL INH SCH ×3 (02:55→10:48)
[2020-02-20 04:00] VITALS: BP 120/83
[2020-02-20 05:08] LABS: BASOPHILS % (AUTO) 0 % (0-10); EOSINOPHILS # (AUTO) 0.1 10^3/uL (0.0-0.3); EOSINOPHILS % (AUTO) 3 % (0-10); HEMATOCRIT 35 % (35-52); HEMOGLOBIN 10.5 G/DL (11.5-16.0); LYMPHOCYTES # (AUTO) 0.9 X 10^3 (1.0-4.0); LYMPHOCYTES % (AUTO) 19 % (12-44); MEAN CORPUSCULAR HEMOGLOBIN 29 PG (25-34); MEAN CORPUSCULAR HGB CONC 30 G/DL (32-36); MEAN CORPUSCULAR VOLUME 99 FL (80-99); MEAN PLATELET VOLUME 9.2 FL (7.4-10.4); MONOCYTES # (AUTO) 0.4 X 10^3 (0.0-1.0); MONOCYTES % (AUTO) 8 % (0-12); NEUTROPHILS # (AUTO) 3.2 X 10^3 (1.8-7.8); NEUTROPHILS % (AUTO) 70 % (42-75); PLATELET COUNT 150 10^3/uL (130-400); RED CELL DISTRIBUTION WIDTH 15.3 % (10.0-14.5); WHITE BLOOD COUNT 4.6 10^3/uL (4.3-11.0)
[2020-02-20 05:18] LABS: ALBUMIN 2.9 GM/DL (3.2-4.5); CHLORIDE 92 MMOL/L (98-107); POTASSIUM 3.9 MMOL/L (3.6-5.0); SODIUM 143 MMOL/L (135-145)
[2020-02-20 05:21] LABS: TOTAL PROTEIN 5.9 GM/DL (6.4-8.2)
[2020-02-20 05:22] LABS: CARBON DIOXIDE 43 MMOL/L (21-32)
[2020-02-20 05:23] LABS: BILIRUBIN,TOTAL 0.4 MG/DL (0.1-1.0)
[2020-02-20 05:24] LABS: ALKALINE PHOSPHATASE 64 U/L (40-136); CREATININE SERUM 0.82 MG/DL (0.60-1.30); GFR ESTIMATED > 60
[2020-02-20 05:25] LABS: BUN/CREATININE RATIO 17
[2020-02-20 05:27] LABS: ALANINE AMINOTRANSFERASE 12 U/L (0-55)
[2020-02-20 05:33] LABS: GLUCOSE 58 MG/DL (70-105)
[2020-02-20] MEDS: glipiZIDE 5 MG (GLUCOTROL) TAB PO SCH (06:33)
[2020-02-20] MEDS: LEVOTHYROXINE 75 MCG (LEVOTHROID) TABLET PO SCH (06:33)
[2020-02-20] MEDS: LEVOTHYROXINE 100 MCG (LEVOTHROID) TAB PO SCH (06:33)
[2020-02-20] MEDS: ENOXAPARIN 40 MG/0.4 ML (LOVENOX) SYR SC SCH (06:33)
[2020-02-20] MEDS: RT-BUDESONIDE NEBS 0.5 MG/2ML (PULMICORT) AMP INH SCH (07:03)
[2020-02-20] MEDS: ADVAIR HFA 115/21 MCG INHALER 8 GM IH SCH (07:04)
[2020-02-20 08:04] VITALS: BP 146/77
[2020-02-20] MEDS: FAMOTIDINE 20 MG (PEPCID) TABLET PO SCH (09:16)
[2020-02-20] MEDS: PANTOPRAZOLE 40 MG (PROTONIX) TAB PO SCH (09:16)
[2020-02-20] MEDS: ASPIRIN 81 MG CHEW (CHILDREN'S ASA) PO SCH (09:16)
[2020-02-20] MEDS: OMEGA 3 (FISH OIL) 1000 MG CAP PO SCH (09:16)
[2020-02-20] MEDS: FUROSEMIDE 40 MG (LASIX) TAB PO SCH (09:16)
[2020-02-20] MEDS: KCL 10 MEQ TAB (MICRO K) PO SCH (09:16)
[2020-02-20] MEDS: meTOproloL SUCCINATE 50 MG (TOPROL XL) TAB PO SCH (09:17)
[2020-02-20] MEDS: FLUTICASONE NASAL SPRAY (FLONASE) 16 GM BTL NS PRN (09:34)
[2020-02-20] MEDS: ACETAMINOPHEN 500 MG TAB (TYLENOL) PO PRN (09:35)
--- NOTE | 2020-02-20 10:25 | Physical Therapy Daily Note ---
PT Daily Note-Current Subjective Pt supine in bed upon arrival to room, agreeable to therapy at this time. No pain vocalized. Appearance Following session, pt sitting up in chair with call light within reach. All needs met Mental Status Patient Orientation: Person, Place, Situation Attachments: Oxygen, Enriquez Catheter Transfers SCALE: Activities may be completed with or without assistive devices. 7-Xcpfvgxzhy-kzgadqf completes the activity by him/herself with no assistance from a helper. 5-Set-up or Clean-up Assistance-helper sets up or cleans up; patient completes activity. [place] assists only prior to or following the activity. 4-Supervision or Touching Assistance-helper provides verbal cues and/or touching/steadying and/or contact guard assistance as patient completes activity. Assistance may be provided throughout the activity or intermittently. 3-Partial/Moderate Assistance-helper does LESS THAN HALF the effort. [place] lifts, holds or supports trunk or limbs, but provides less than half the effort. 2-Substantial/Maximal Assistance-helper does MORE THAN HALF the effort. [place] lifts or holds trunk or limbs and provides more than half the effort. 2-Xzdgwxskp-cyzagr does ALL the effort. Patient does none of the effort to complete the activity. Or, the assistance of 2 or more helpers is required for the patient to complete the activity. If activity was not attempted, code reason: 7-Patient Refused. 9-Not Applicable-not attempted and the patient did not perform the activity be fore the current illness, exacerbation or injury. 10-Not Attempted due to Environmental Limitations-(lack of equipment, weather restraints, etc.). 88-Not Attempted due to Medical Conditions or Safety Concerns. Sit to Stand (QC): 5 Chair/Lmi-mg-Frbzw Xfer(QC): 5 Gait Training Distance: 50' Walk 10 feet (QC): 5 Walk 50 ft with 2 Turns(QC): 5 Gait Assistive Device: FWW Exercises Standing: Hip Abduction, Heel/toe raises, Marching, Mini squats Standing Reps: 15 Assessment Current Status: Good Progress Pt progressing well, will continue to progress activity tolerance as able. PT Senior Care Goals Senior Care Goals PT Digital Media Coordinator Goals Time Frame: Feb 24, 2020 Roll Left & Right (QC): 6 Sit to Lying (QC): 6 Lying-Sitting on Side/Bed(QC): 6 Sit to Stand (QC): 6 Chair/Ekh-id-Trifk Xfer(QC): 6 Walk 10 feet (QC): 6 Walk 50ft with 2 Turns (QC): 6 PT Plan Problem List Problem List: Activity Tolerance, Functional Strength, Safety, Balance, Gait, Transfer, Bed Mobility Treatment/Plan Treatment Plan: Continue Plan of Care Treatment Plan: Bed Mobility, Education, Functional Activity Jose, Functional Strength, Gait, Safety, Therapeutic Exercise, Transfers Treatment Duration: Feb 24, 2020 Frequency: 6 times per week Estimated Hrs Per Day: .25 hour per day Patient and/or Family Agrees t: Yes Time/GCodes Time In: 915 Time Out: 925 Total Billed Treatment 1 visit Ex (10) JF GARDNER PT Feb 20, 2020 10:25
[2020-02-20] MEDS ORDERED: PANT40TA3 PO (10:31)
[2020-02-20] MEDS ORDERED: NEOM28.410 TP (10:31)
--- NOTE | 2020-02-20 10:32 | Discharge Summary ---
Discharge Summary Hospital Course Was the Problem List Reviewed?: Yes Problems/Dx: (1) Acute on chronic respiratory failure with hypoxia and hypercapnia Status: Acute (2) CHF (congestive heart failure) Status: Acute (3) Hypothyroidism Status: Chronic (4) HTN (hypertension) Status: Chronic (5) Oxygen dependent Status: Chronic Hospital Course Date of Admission: Feb 15, 2020 at 17:40 Admission Diagnosis : Family Physician/Provider: [place] Date of Discharge: 02/20/20 Discharge Diagnosis: AECOPD, PNA, acute on chronic respiratory failure, smoker, OHS Hospital Course: Patient had a lengthy hospital course after starting in ICU after admitted from ER and chose not to be intubated but required biPAP for 4 days before weaning to Vapotherm. IV steroids along with abx for PNA were required to aggressively treat patient and approach baseline of 4L/min O2 supplement. Smoking cessation was counseled. Overall she did well and was ready for DC with . Labs and Pending Lab Test: Laboratory Tests 02/19/20 11:43: Glucometer 124H 02/19/20 15:19: Glucometer 133H 02/19/20 19:34: Glucometer 334H 02/19/20 23:51: Glucometer 272H 02/20/20 05:00: White Blood Count 4.6, Red Blood Count 3.57L, Hemoglobin 10.5L, Hematocrit 35, Mean Corpuscular Volume 99, Mean Corpuscular Hemoglobin 29, Mean Corpuscular Hemoglobin Concent 30L, Red Cell Distribution Width 15.3H, Platelet Count 150, Mean Platelet Volume 9.2, Neutrophils (%) (Auto) 70, Lymphocytes (%) (Auto) 19, Monocytes (%) (Auto) 8, Eosinophils (%) (Auto) 3, Basophils (%) (Auto) 0, Neutrophils # (Auto) 3.2, Lymphocytes # (Auto) 0.9L, Monocytes # (Auto) 0.4, Eosinophils # (Auto) 0.1, Basophils # (Auto) 0.0, Sodium Level 143, Potassium Level 3.9, Chloride Level 92L, Carbon Dioxide Level 43H, Anion Gap 8, Blood Urea Nitrogen 14, Creatinine 0.82, Estimat Glomerular Filtration Rate > 60, BUN/Creatinine Ratio 17, Glucose Level 58*L, Calcium Level 9.0, Corrected Calcium 9.9, Total Bilirubin 0.4, Aspartate Amino Transf (AST/SGOT) 9, Alanine Aminotransferase (ALT/SGPT) 12, Alkaline Phosphatase 64, Total Protein 5.9L, Albumin 2.9L 02/20/20 06:33: Glucometer 131H Microbiology 02/15/20 Blood Culture - Preliminary, Resulted No growth Home Meds Active Triple Antibiotic Plus Oint (Neomycn/Baci Zn/Pmyx Bs/Pramox) 28.4 Gm Oint...g. 28.4 Gm TP TID apply to affected area on nose tid for 5 days Pantoprazole Sodium 40 Mg Tablet.dr 40 Mg PO DAILY Reported Metoprolol Succinate 50 Mg Tab.er.24h 50 Mg PO DAILY Heartburn Relief (Famotidine) 10 Mg Tablet 20 Mg PO BID TAKES 2 (10MG) TABS Tylenol Extra Strength (Acetaminophen) 500 Mg Tablet 1,500 Mg PO Q8H PRN Aspirin 81 Mg Tab.chew 81 Mg PO DAILY Glipizide 5 Mg Tablet 5 Mg PO HS Glipizide 5 Mg Tablet 10 Mg PO DAILY TAKES 2 (5MG) TABS Fluticasone-Salmeterol 250-50 (Fluticasone Propion/Salmeterol) 1 Each Blst.w.dev 1 Puff INH BID [place]-3 Fish Oil 1,000 mg Sftg ([place]-3/Dha/Epa/Fish Oil) 1 Each Capsule 2,000 Mg PO DAILY Albuterol Sulfate 2.5 Mg/3 Ml Vial.neb 3 Ml NEB Q4-6 H PRN Montelukast Sodium 10 Mg Tablet 10 Mg PO HS Loratadine 10 Mg Tablet 10 Mg PO DAILY PRN Metformin HCl 500 Mg Tablet 500 Mg PO BID Levothyroxine Sodium 175 Mcg Tablet 175 Mcg PO DAILY Fluticasone Propionate 16 Gm [place].susp 2 [place] NS DAILY PRN Atorvastatin Calcium 10 Mg Tablet 10 Mg PO DAILY Potassium Chloride 10 Meq Tab.er.prt 10 Meq PO DAILY Furosemide 40 Mg Tablet 40 Mg PO DAILY Proair Hfa (Albuterol Sulfate) 1 Puff Puff 2 Puff INH Q6H PRN Paroxetine HCl 40 Mg Tablet 40 Mg PO 1500 Assessment/Pt Instructions [facility] 1 week Discharge Planning: <30 minutes discharge planning Discharge Instructions Discharge Diet: No Restrictions Discharge Physical Examination Vital Signs Vital Signs Date Time Temp Pulse Resp B/P (MAP) Pulse Ox O2 Delivery O2 Flow Rate FiO2 02/20/20 08:04 35.9 83 18 146/77 (100) 92 High Flow N/C 5.00 02/18/20 06:49 50 General Appearance: No Apparent Distress, WD/WN, Chronically ill, Obese Respiratory: Lungs Clear, Decreased Breath Sounds Allergies: Coded Allergies: NKANo Known Allergies (Unverified Allergy, Mild, 05/01/09) Discharge Summary Date of Admission Feb 15, 2020 at 17:40 Date of Discharge Discharge Date: Feb 20, 2020 Admission Diagnosis Assessment: Acute on chronic respiratory failure End-stage COPD Current smoker Poor prognosis Plan: ICU status BIPAP Patient wants to avoid intubation Discharge Diagnosis Assessment: Acute on chronic respiratory failure DM HTN AECOPD Plan: Wean Bipap Vapotherm Up in chair BM regimen May transfer to 4th floor doing well 02/18/20: DC Telemetry Wean off Vapotherm PT/OT Bowels are moving 02/19/20: Continue to wean O2 to baseline 4 Liters Continue aggressive Pulmonary treatment Discharge home this or Saturday (1) Acute on chronic respiratory failure with hypoxia and hypercapnia Status: Acute (2) CHF (congestive heart failure) Status: Acute (3) Hypothyroidism Status: Chronic (4) HTN (hypertension) Status: Chronic (5) Oxygen dependent Status: Chronic Clinical Quality Measures DVT/VTE Risk/Contraindication: Risk Factor Score Per Nursin RFS Level Per Nursing on Admit: 4+=Very High CLAIRE BAZZI DO Feb 20, 2020 10:32
[2020-02-20 11:26] VITALS: BP 161/78
--- NOTE | 2020-02-20 11:45 | NUR ---
THIS RN CALLED [facility] TO LET THEM KNOW PT IS DISCHARGING FROM TODAY. PT SAID SHE DID NOT NEED THEM THERE UNTIL SATURDAY AND RN WAS GIVEN THIS INFO. PT LEFT FACILITY AT 1145 PER W/C PROPELLED BY STAFF WITH ALL HER BELONGINGS, INCLUDING 02 CONCENTRATOR.
== END 2020-02-20 11:45 | disposition home health service (06) | DRG 871 ==
LOC: EDUNIT# 16:02 → ER 16:03 → ICU 17:40 → 4TH 02-17 16:35
PROVIDERS: ADMIT Internal Medicine; ATTEND Internal Medicine
PROC: 02HV33Z Insertion of Infusion Device into Superior Vena Cava, Percutaneous Approach (ICD-10-PCS; principal; 2020-02-15)
DX: A41.9 Sepsis, unspecified organism (principal); R65.21 Severe sepsis with septic shock; J18.9 Pneumonia, unspecified organism; J96.21 Acute and chronic respiratory failure with hypoxia; J96.22 Acute and chronic respiratory failure with hypercapnia; I50.33 Acute on chronic diastolic (congestive) heart failure; N17.9 Acute kidney failure, unspecified; E66.2 Morbid (severe) obesity with alveolar hypoventilation; J43.9 Emphysema, unspecified; I11.0 Hypertensive heart disease with heart failure; E03.9 Hypothyroidism, unspecified; I27.20 Pulmonary hypertension, unspecified; R00.1 Bradycardia, unspecified; I25.10 Atherosclerotic heart disease of native coronary artery without angina pectoris; F17.210 Nicotine dependence, cigarettes, uncomplicated; J30.2 Other seasonal allergic rhinitis; I87.2 Venous insufficiency (chronic) (peripheral); F41.9 Anxiety disorder, unspecified; E78.5 Hyperlipidemia, unspecified; F32.9 Major depressive disorder, single episode, unspecified; Z99.81 Dependence on supplemental oxygen; Z79.84 Long term (current) use of oral hypoglycemic drugs; Z68.39 Body mass index [BMI] 39.0-39.9, adult; Z86.14 Personal history of Methicillin resistant Staphylococcus aureus infection
CPT/HCPCS: 36415; 36600; 71045; 71260; 80048; 80053; 80202; 81000; 82805; 82962; 83036; 83605; 83735; 83880; 84100; 84145; 85007; 85025; 85027; 86141; 87040; 87449; 87899; 93306; 94640; 94660; 94760; 99291

== ENCOUNTER 2020-03-09 12:58 | Inpatient (IN) | payer MEDICAID ==
[~2020-03-09 12:58] MED LIST changes: +NEOM28.410 TP; +PANT40TA3 PO
[2020-03-09] MEDS ORDERED: RT-ALBUTEROL SULF 2.5 MG/3 ML PRE-MIX VIAL ONE (13:19)
[2020-03-09] MEDS ORDERED: RT-ALBUTEROL/IPRATROPIUM 3 ML (DUONEB) VIAL ONE (13:19)
[2020-03-09] MEDS ORDERED: WATER (STERILE) FOR INJECTION 10 ML ONE (13:59)
[2020-03-09] MEDS ORDERED: cefTRIAXone 1,000 MG IV (ROCEPHIN) VIAL ONE (13:59)
[2020-03-09] MEDS ORDERED: methylPREDNISolone 125 MG (Solu-MEDROL) VIAL ONE ×2 (14:00→20:49)
[2020-03-09] MEDS ORDERED: ENOXAPARIN 40 MG/0.4 ML (LOVENOX) SYR ONE (17:39)
[2020-03-09] MEDS ORDERED: LACTATED RINGERS 1,000 ML IV ONE (17:39)
[2020-03-09] MEDS ORDERED: FAMOTIDINE 20 MG (PEPCID) TABLET ONE (20:49)
[2020-03-09] MEDS ORDERED: inSUlin ASPART (NovoLOG) 1 UNIT/0.01 ML (CHARGE PER UNIT) ONE (21:19)
[2020-03-10] VITALS (19 sets, daily range): BP systolic 106–148; BP diastolic 63–115
[2020-03-10] MEDS ORDERED: LACTATED RINGERS 1,000 ML IV ONE (04:08)
[2020-03-10] MEDS ORDERED: methylPREDNISolone 125 MG (Solu-MEDROL) VIAL ONE (05:28)
[2020-03-10] MEDS ORDERED: inSUlin ASPART (NovoLOG) 1 UNIT/0.01 ML (CHARGE PER UNIT) ONE ×3 (05:29→17:18)
[2020-03-10 05:44] LABS: ABG PH 7.39 (7.37-7.43)
[2020-03-10 05:45] LABS: ABG PCO2 91 MMHG (35-45); ABG PO2 96 MMHG (79-93)
[2020-03-10 05:46] LABS: ABG BASE EXCESS 27.1 MMOL/L (-2.5-2.5); ABG OXYGEN SATURATION 98 % (94-100); ABG TCO2 88.9 MMOL/L (21.0-31.0); ALLENS TEST POSITIVE; INSPIRED O2 60 BIPAP; PATIENT TEMP 36.6; VENTILATOR NO
[2020-03-10 05:47] LABS: ABG PCO2 95 MMHG (35-45); ABG PH 7.38 (7.37-7.43); ABG PO2 106 MMHG (79-93)
[2020-03-10 05:48] LABS: ABG BASE EXCESS 27.9 MMOL/L (-2.5-2.5); ABG OXYGEN SATURATION 99 % (94-100); ABG TCO2 91.8 MMOL/L (21.0-31.0); ALLENS TEST POSITIVE; INSPIRED O2 60 BIPAP; PATIENT TEMP 36.3; VENTILATOR NO
[2020-03-10 05:50] LABS: ABG PCO2 106 MMHG (35-45); ABG PH 7.34 (7.37-7.43); ABG PO2 79 MMHG (79-93)
[2020-03-10 05:51] LABS: ABG BASE EXCESS 27.2 MMOL/L (-2.5-2.5); ABG OXYGEN SATURATION 96 % (94-100); ALLENS TEST POSITIVE; PATIENT TEMP 36.7
[2020-03-10 05:52] LABS: HEMATOCRIT 39 % (35-52); HEMOGLOBIN 11.9 G/DL (11.5-16.0); MEAN CORPUSCULAR HEMOGLOBIN 30 PG (25-34)
[2020-03-10 05:53] LABS: BASOPHILS % (AUTO) 0 % (0-10); EOSINOPHILS # (AUTO) 0.1 10^3/uL (0.0-0.3); EOSINOPHILS % (AUTO) 1 % (0-10); LYMPHOCYTES % (AUTO) 14 % (12-44); MEAN CORPUSCULAR HGB CONC 30 G/DL (32-36); MEAN CORPUSCULAR VOLUME 100 FL (80-99); MEAN PLATELET VOLUME 9.7 FL (7.4-10.4); MONOCYTES # (AUTO) 0.5 X 10^3 (0.0-1.0); MONOCYTES % (AUTO) 7 % (0-12); NEUTROPHILS # (AUTO) 5.5 X 10^3 (1.8-7.8); NEUTROPHILS % (AUTO) 78 % (42-75); PLATELET COUNT 189 10^3/uL (130-400); RED CELL DISTRIBUTION WIDTH 15.2 % (10.0-14.5)
[2020-03-10 05:55] LABS: CHLORIDE 84 MMOL/L (98-107); POTASSIUM 4.1 MMOL/L (3.6-5.0); SODIUM 141 MMOL/L (135-145)
[2020-03-10 05:56] LABS: CARBON DIOXIDE 49 MMOL/L (21-32); GLUCOSE 258 MG/DL (70-105)
[2020-03-10 05:57] LABS: ALANINE AMINOTRANSFERASE 12 U/L (0-55); ALBUMIN 3.5 GM/DL (3.2-4.5); ALKALINE PHOSPHATASE 114 U/L (40-136); BILIRUBIN,TOTAL 0.3 MG/DL (0.1-1.0); TOTAL PROTEIN 7.5 GM/DL (6.4-8.2)
[2020-03-10] MEDS ORDERED: LACTATED RINGERS 1,000 ML IV SCH (08:30)
[2020-03-10] MEDS ORDERED: meTOproloL SUCCINATE 50 MG (TOPROL XL) TAB PO ONE (08:35)
[2020-03-10] MEDS ORDERED: OMEGA 3 (FISH OIL) 1000 MG CAP PO ONE (08:35)
[2020-03-10] MEDS ORDERED: LEVOTHYROXINE 100 MCG (LEVOTHROID) TAB ONE (08:35)
[2020-03-10] MEDS ORDERED: LORATADINE (CLARITIN) 10 MG TAB ONE (08:36)
[2020-03-10] MEDS ORDERED: LEVOTHYROXINE 75 MCG (LEVOTHROID) TABLET ONE (08:36)
[2020-03-10] MEDS ORDERED: PARoxetine 20 MG (PAXIL) TAB ONE (08:36)
[2020-03-10] MEDS ORDERED: MONTELUKAST 10 MG (SINGULAIR) TAB ONE (08:36)
[2020-03-10] MEDS ORDERED: FAMOTIDINE 20 MG (PEPCID) TABLET ONE (08:36)
[2020-03-10] MEDS ORDERED: ASPIRIN E.C. 81 MG (ECOTRIN) TAB PO ONE (08:40)
[2020-03-10] MEDS ORDERED: CLOPIDOGREL 75 MG (PLAVIX) TABLET ONE (08:41)
[2020-03-10] MEDS ORDERED: ENOXAPARIN 40 MG/0.4 ML (LOVENOX) SYR SC SCH (08:45)
[2020-03-10] MEDS ORDERED: PANTOPRAZOLE 40 MG (PROTONIX) TAB PO ONE (08:59)
[2020-03-10] MEDS ORDERED: RT-ALBUTEROL/IPRATROPIUM 3 ML (DUONEB) VIAL INH PRN (09:00)
[2020-03-10 09:18] LABS: ABG PCO2 98 MMHG (35-45); ABG PH 7.38 (7.37-7.43); ABG PO2 70 MMHG (79-93); ABG TCO2 59.4 MMOL/L (21.0-31.0)
[2020-03-10 09:19] LABS: ABG BASE EXCESS 29.2 MMOL/L (-2.5-2.5); ABG OXYGEN SATURATION 95 % (94-100); ALLENS TEST YES-POS; INSPIRED O2 50%; PATIENT TEMP 97.7; VENTILATOR NO
[2020-03-10] MEDS ORDERED: RT-ALBUTEROL/IPRATROPIUM 3 ML (DUONEB) VIAL INH SCH (10:00)
[2020-03-10] MEDS ORDERED: TIOT18CA2 IH (10:00)
[2020-03-10] MEDS ORDERED: FAMO20TA5 PO (10:00)
[2020-03-10] MEDS ORDERED: PANT40TA2 PO (10:00)
--- NOTE | 2020-03-10 10:07 | NUR ---
UNABLE TO SPEAK WITH PT DUE TO HER BEING ON A BIPAP AND IN ISOLATION- I CALLED HER DAUGHTER TORRES THAT IS AWARE OF HER MEDICATIONS AND HAD [facility] FAX OVER A MED LIST TO COMPLETE THE MED REC THE FOLLOWING MEDICATIONS ARE NOT LISTED ON THE EXT MED HISTORY: 11-07-2019 ATORVASTATIN 10MG #90/90DS- I DOCUMENTED THE PAST DUE FILL ON THE MED REC 11-24-2019 FUROSEMIDE 40MG #90/90DS 11-30-2019 LEVOTHYROXINE 175MCG #90/90DS 01-25-2020 METFORMIN 500MG #60/30DS OTC MEDS: TYLENOL ASPIRIN 81MG FISH OIL FLONASE
[2020-03-10] MEDS: methylPREDNISolone 125 MG (Solu-MEDROL) VIAL IVP SCH ×3 (11:08→20:47)
--- NOTE | 2020-03-10 11:57 | Progress Note ---
Subjective Subjective/Events-last exam Afebrile, feeling much better today. She says she is hungry and wants to eat and her breathing feels "pretty good" although she is still on bipap this morning at time of my exam. Still PUI, seen in full PPE including N95 and face shield. Focused Exam Lactate Level 03/09/20 13:05: Lactic Acid Level 1.98 Objective Exam Last Set of Vital Signs Vital Signs Date Time Temp Pulse Resp B/P (MAP) Pulse Ox O2 Delivery O2 Flow Rate FiO2 03/10/20 11:00 51 20 131/115 (120) 96 NIV Bilevel 60.00 03/10/20 09:00 36.0 03/10/20 08:00 60 Capillary Refill : Less Than 3 Seconds General: Alert, Oriented X3, Mild Distress Lungs: Other (decreased air movement throughout) Heart: Regular Rate, No Murmurs Abdomen: Normal Bowel Sounds, Soft Neuro: Normal Speech Psych/Mental Status: Mental Status NL, Mood NL Results/Procedures Lab Laboratory Tests 03/09/20 13:05: White Blood Count 7.0, Red Blood Count 3.95L, Hemoglobin 11.9, Hematocrit 39, Mean Corpuscular Volume 100H, Mean Corpuscular Hemoglobin 30, Mean Corpuscular Hemoglobin Concent 30L, Red Cell Distribution Width 15.2H, Platelet Count 189, Mean Platelet Volume 9.7, Neutrophils (%) (Auto) 78H, Lymphocytes (%) (Auto) 14, Monocytes (%) (Auto) 7, Eosinophils (%) (Auto) 1, Basophils (%) (Auto) 0, Neutrophils # (Auto) 5.5, Lymphocytes # (Auto) 1.0, Monocytes # (Auto) 0.5, Eosinophils # (Auto) 0.1, Basophils # (Auto) 0.0, Blood Gas Puncture Site UNK, Blood Gas Patient Temperature 36.7, Arterial Blood pH 7.34*L, Arterial Blood Partial Pressure CO2 106*H, Arterial Blood Partial Pressure O2 79, Arterial Blood HCO3 55*H, Arterial Blood Total CO2 104.0H, Arterial Blood Oxygen Saturation 96, Arterial Blood Base Excess 27.2H, Da Test POSITIVE, Blood Gas Ventilator Setting , Blood Gas Inspired Oxygen , Sodium Level 141, Potassium Level 4.1, Chloride Level 84L, Carbon Dioxide Level 49*H, Anion Gap 8, Blood Urea Nitrogen , Creatinine , BUN/Creatinine Ratio , Glucose Level 258H, Lactic Acid Level 1.98, Calcium Level 10.0, Corrected Calcium 10.4H, Total Bilirubin 0.3, Aspartate Amino Transf (AST/SGOT) 13, Alanine Aminotransferase (ALT/SGPT) 12, Alkaline Phosphatase 114, B-Type Natriuretic Peptide 103.4H, Total Protein 7.5, Albumin 3.5 03/09/20 16:20: Blood Gas Puncture Site LR, Blood Gas Patient Temperature 97.7, Arterial Blood pH 7.38, Arterial Blood Partial Pressure CO2 98*H, Arterial Blood Partial Pressure O2 70L, Arterial Blood HCO3 56*H, Arterial Blood Total CO2 59.4H, Arterial Blood Oxygen Saturation 95, Arterial Blood Base Excess 29.2H, Da Test YES-POS, Blood Gas Ventilator Setting NO, Blood Gas Inspired Oxygen 50% 03/09/20 20:08: Blood Gas Puncture Site RIGHT RADIAL, Blood Gas Patient Temperature 36.3, Arterial Blood pH 7.38, Arterial Blood Partial Pressure CO2 95*H, Arterial Blood Partial Pressure O2 106H, Arterial Blood HCO3 55*H, Arterial Blood Total CO2 91.8H, Arterial Blood Oxygen Saturation 99, Arterial Blood Base Excess 27.9H, Da Test POSITIVE, Blood Gas Ventilator Setting NO, Blood Gas Inspired Oxygen 60 BIPAP 03/10/20 01:45: Blood Gas Puncture Site LEFT RADIAL, Blood Gas Patient Temperature 36.6, Arterial Blood pH 7.39, Arterial Blood Partial Pressure CO2 91*H, Arterial Blood Partial Pressure O2 96H, Arterial Blood HCO3 54*H, Arterial Blood Total CO2 88.9H, Arterial Blood Oxygen Saturation 98, Arterial Blood Base Excess 27.1H, Da Test POSITIVE, Blood Gas Ventilator Setting NO, Blood Gas Inspired Oxygen 60 BIPAP Assessment/Plan Assessment/Plan (1) Acute on chronic respiratory failure with hypoxia and hypercapnia Status: Acute Assessment & Plan: PCO2 over 100 on admission. Improved minimally with bipap, had to increase pressure and FiO2 last night with small improvement in CO2, (did have resolution of hypoxia), but clinically significantly improved, continue to monitor closely. (2) COPD exacerbation Status: Acute Assessment & Plan: Solumedrol, Combivent, Bipap- has severe hypercapnea with mild improvement on bipap overnight, but clinically her mental status is markedly improved. Possible change to vapotherm today. Pulm consulted, apprecia te recommendations. R/O pneumonia, initial CXR with mild patchy right infiltrate, given one dose of ceftriaxone on admission. Afebrile, no leukocytosis and LA normal, will hold abx for now. (3) Non-insulin treated type 2 diabetes mellitus Status: Chronic Assessment & Plan: Diabetic diet, resume home medications. (4) CHF (congestive heart failure) Status: Chronic Assessment & Plan: BNP not significantly elevated, do not suspect exacerbation at this time. (5) Hypothyroidism Status: Chronic Assessment & Plan: Resume home levothyroxine. (6) HTN (hypertension) Status: Chronic Assessment & Plan: Resume home medications. Qualifiers: Qualified Codes: I10 - Essential (primary) hypertension (7) Morbid obesity Status: Chronic (8) DVT prophylaxis Status: Acute Assessment & Plan: Enoxaparin VAN GONZALEZ MD Mar 10, 2020 11:57
--- NOTE | 2020-03-10 12:26 | Pulmonary Consultation ---
History of Present Illness History of Present Illness Date Seen by Provider: Mar 10, 2020 Time Seen by Provider: 09:30 Date of Admission History of Present Illness 54 yo with hx of COPD, and CHF admitted on 03/09 to ICU secondary to worsening SOB. Pt is currently requiring BiPAP secondary to SOB. Allergies and Home Medications Allergies Coded Allergies: CALDERONANo Known Allergies (Unverified Allergy, Mild, 05/01/09) Home Medications Acetaminophen 500 Mg Tablet, 1,500 MG PO Q8H PRN for PAIN-MILD (1-4), (Reported) Albuterol Sulfate 1 Puff Puff, 2 PUFF INH Q6H PRN for SHORTNESS OF BREATH, (Reported) Albuterol Sulfate 2.5 Mg/3 Ml Vial.neb, 3 ML NEB Q4-6 H PRN for SHORTNESS OF BREATH, (Reported) Aspirin 81 Mg Tab.chew, 81 MG PO DAILY, (Reported) Atorvastatin Calcium 10 Mg Tablet, 10 MG PO DAILY, (Reported) LAST FILLED 11-07-2019 #90 Famotidine 20 Mg Tablet, 20 MG PO BID, (Reported) Fluticasone Propion/Salmeterol 1 Each Blst.w.dev, 1 PUFF INH BID, (Reported) Fluticasone Propionate 16 Gm [place].susp, 2 SPRAY NS DAILY PRN for CONGESTION, (Reported) Furosemide 40 Mg Tablet, 40 MG PO DAILY, (Reported) Glipizide 5 Mg Tablet, 10 MG PO DAILY, (Reported) TAKES 2 (5MG) TABS Glipizide 5 Mg Tablet, 5 MG PO HS, (Reported) Levothyroxine Sodium 175 Mcg Tablet, 175 MCG PO DAILY, (Reported) Loratadine 10 Mg Tablet, 10 MG PO DAILY PRN for AALLERGY SYMPTOMS, (Reported) Metformin HCl 500 Mg Tablet, 500 MG PO BID, (Reported) Metoprolol Succinate 50 Mg Tab.er.24h, 50 MG PO DAILY, (Reported) Montelukast Sodium 10 Mg Tablet, 10 MG PO HS, (Reported) Neomycn/Baci Zn/Pmyx Bs/Pramox 28.4 Gm Oint...g., 28.4 GM TP TID apply to affected area on nose tid for 5 days Prescribed by: CLAIRE BAZZI on 02/20/20 1031 [place]-3/Dha/Epa/Fish Oil 1 Each Capsule, 2,000 MG PO DAILY, (Reported) Pantoprazole Sodium 40 Mg Tablet.dr, 40 MG PO DAILY, (Reported) Paroxetine HCl 40 Mg Tablet, 40 MG PO 1500, (Reported) Potassium Chloride 10 Meq Tab.er.prt, 10 MEQ PO DAILY, (Reported) Tiotropium [place] 1 Inh Aerp, 1 INH IH DAILY, (Reported) Past Pypiwnw-Fbepfb-Ayhbsw Hx Patient Social History Type Used: Cigarettes 2nd Hand Smoke Exposure: Yes Recent Hopitalizations: Yes Immunizations Up To Date Tetanus Booster (TDap): Unknown PED Vaccines UTD: No Date of Pneumonia Vaccine: Aug 22, 2018 Date of Influenza Vaccine: Jun 12, 2019 Seasonal Allergies Seasonal Allergies: Yes Past Medical History Surgeries: Yes Gallbladder Respiratory: Yes (O2 DEPENDENT AT 5L/NC) Pneumonia, COPD Currently Using CPAP: Yes Currently Using BIPAP: No Cardiac: Yes High Cholesterol, Hypertension Neurological: No 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 Disorders: Denies 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 1.0oz. 96.841475xl; 35.78 BMI Method:Estimated Exam Exam Vital Signs Date Time Temp Pulse Resp B/P (MAP) Pulse Ox O2 Delivery O2 Flow Rate FiO2 03/10/20 12:00 51 17 117/63 (81) 94 NIV Bilevel 60.00 03/10/20 12:00 NIV Bilevel 60 03/10/20 11:00 51 20 131/115 (120) 96 NIV Bilevel 60.00 03/10/20 10:49 55 18 97 50.00 03/10/20 10:00 45 18 124/63 (83) 95 NIV Bilevel 60.00 03/10/20 09:00 36.0 03/10/20 09:00 51 16 117/65 (82) 94 NIV Bilevel 60.00 03/10/20 08:31 48 03/10/20 08:00 NIV Bilevel 60 03/10/20 08:00 50 15 122/81 (95) 93 NIV Bilevel 60.00 03/10/20 07:00 49 16 120/82 (95) 93 NIV Bilevel 60.00 Height & Weight Height: 5'6.00" Weight: 212lbs. 1.0oz. 96.894206zt; 35.78 BMI Method:Estimated Capillary Refill: Less Than 3 Seconds Results Lab Laboratory Tests 03/09/20 13:05 Assessment/Plan Assessment/Plan Acute Respiratory failure with hypoxia -Requiring BiPAP -COVID pending COPDAE -SVNS -Solumedrol -Continue BiPAP PRN Hx of CHF - currently stable -Monitor NIDDM II hx of hypothyroid, HTN Morbid obesity WESLEY ALMAGUER DO Mar 10, 2020 12:26
--- NOTE | 2020-03-10 14:00 | Diagnostic Imaging Report ---
Allie Rooney date of 1965 EXAMINATION: Portable chest on 03/09 1:48 PM INDICATION: Shortness of air. Correlation is made with prior chest from 02/17/2020. Heart size stable. Left sided line has been removed. There appears to be some patchy airspace infiltrate in the right base. Otherwise lungs are clear. Pulmonary vascularity is unremarkable. There is no effusion or pneumothorax. IMPRESSION: Mild patchy right basilar infiltrate. Dictated by: Dictated on workstation # [id number]
[2020-03-10] MEDS: ALBUTEROL/IPRATROP (COMBIVENT RESPIMAT) 4 GM INHALER IH SCH ×3 (14:27→21:42)
--- NOTE | 2020-03-10 14:27 | Diagnostic Imaging Report ---
Indication: Respiratory distress Portable chest 4:07 AM Heart size and pulmonary vascularity are normal. Lungs are clear. There are no effusions or pneumothoraces. IMPRESSION: Negative chest. Stable compared to the previous day. Dictated by: Dictated on workstation # [id number]
[2020-03-10] MEDS: ENOXAPARIN 40 MG/0.4 ML (LOVENOX) SYR SC SCH (17:17)
--- NOTE | 2020-03-10 17:18 | NUR ---
LEESA/TOMEKA visited with the patient's daughter for discharge planning. LEESA/TOMEKA received a call from patient's primary care nurse stating patient's daughter would like to speak with Marisol. LEESA/SS contacted Eve [phone] to discuss questions. Eve reports that the patient was approved for SK[employer] hours; however, was currently on a wait list and needed a physician to sign Crisis Wavier. Eve stated that the physician would not sign due to believing patient would need hospice instead. LEESA/TOMEKA contacted [facility] and spoke with Dr. Woodruff's Nurse. She states that is not refusing and is misunderstanding. LEESA/TOMEKA informed the office that patient will soon be living on her own and not with her uncle and SKIL workers will be needed by then. She verbalized understanding. LEESA/SS contacted Carolann and Estrella Long from the [facility] [place] to discuss next steps. They report that the physician will need to sign the waiver and have it sent back to main office for Kavya Garcia at [phone]. LEESA/SS faxed Crisis wavier to [facility] with instructions. LEESA/SS contacted Eve to give an update. She verbalized understanding and was thanked this sw.director learning services will continue to follow for discharge planning.
[2020-03-10] MEDS: inSUlin ASPART (NovoLOG) 1 UNIT/0.01 ML (CHARGE PER UNIT) SC SCH ×2 (17:20→20:47)
[2020-03-10] MEDS: PARoxetine 20 MG (PAXIL) TAB PO SCH (17:46)
[2020-03-10 18:40] LABS: HEMOGLOBIN 11.9 G/DL (11.5-16.0); MEAN PLATELET VOLUME 9.5 FL (7.4-10.4); POTASSIUM 5.6 MMOL/L (3.6-5.0); RED CELL DISTRIBUTION WIDTH 15.3 % (10.0-14.5); WHITE BLOOD COUNT 5.5 10^3/uL (4.3-11.0)
[2020-03-10 18:41] LABS: CALCIUM 10.1 MG/DL (8.5-10.1); MAGNESIUM 1.7 MG/DL (1.6-2.4)
[2020-03-10] MEDS: metFORMIN 500 MG (GLUCOPHAGE) TAB PO SCH (19:25)
[2020-03-10] MEDS: FAMOTIDINE 20 MG (PEPCID) TABLET PO SCH (19:28)
[2020-03-10] MEDS: MONTELUKAST 10 MG (SINGULAIR) TAB PO SCH (19:28)
[2020-03-10] MEDS: glipiZIDE 5 MG (GLUCOTROL) TAB PO SCH (19:28)
[2020-03-10] MEDS: ADVAIR HFA 115/21 MCG INHALER 8 GM IH SCH (21:45)
[2020-03-10 21:51] LABS: ABG PCO2 68 MMHG (35-45); ABG PH 7.47 (7.37-7.43)
[2020-03-10 21:52] LABS: ABG BASE EXCESS 22.9 MMOL/L (-2.5-2.5); ABG OXYGEN SATURATION 90 % (94-100); ABG PO2 59 MMHG (79-93); ABG TCO2 50.9 MMOL/L (21.0-31.0); ALLENS TEST YES-POS; INSPIRED O2 50%; PATIENT TEMP 36.6; VENTILATOR NO
[2020-03-11] VITALS (12 sets, daily range): BP systolic 130–166; BP diastolic 71–99
[2020-03-11] MEDS: ALBUTEROL/IPRATROP (COMBIVENT RESPIMAT) 4 GM INHALER IH SCH ×6 (02:39→22:17)
[2020-03-11 03:07] LABS: ABG PCO2 47 MMHG (35-45); ABG PH 7.56 (7.37-7.43); ABG PO2 146 MMHG (79-93)
[2020-03-11 03:08] LABS: ABG BASE EXCESS 18.1 MMOL/L (-2.5-2.5); ABG OXYGEN SATURATION 94 % (94-100); ABG TCO2 44.1 MMOL/L (21.0-31.0); ALLENS TEST YES-POS; INSPIRED O2 50%; PATIENT TEMP 35.8; VENTILATOR NO
[2020-03-11 03:19] LABS: HEMOGLOBIN 11.4 G/DL (11.5-16.0); MEAN PLATELET VOLUME 9.7 FL (7.4-10.4); RED CELL DISTRIBUTION WIDTH 14.9 % (10.0-14.5); WHITE BLOOD COUNT 6.3 10^3/uL (4.3-11.0)
[2020-03-11 03:21] LABS: ALBUMIN 3.3 GM/DL (3.2-4.5); BILIRUBIN,TOTAL 0.2 MG/DL (0.1-1.0); CALCIUM 9.9 MG/DL (8.5-10.1); MAGNESIUM 1.8 MG/DL (1.6-2.4); POTASSIUM 4.7 MMOL/L (3.6-5.0); TOTAL PROTEIN 6.8 GM/DL (6.4-8.2)
--- NOTE | 2020-03-11 04:19 | Pulmonary Progress Note ---
Subjective Time Seen by a Provider: 05:45 Sepsis Event Evaluation Height, Weight, BMI Height: 5'6.00" Weight: 212lbs. 1.0oz. 96.616556fd; 35.78 BMI Method:Estimated Focused Exam Lactate Level 03/09/20 13:05: Lactic Acid Level 1.98 Exam Exam Vital Signs Date Time Temp Pulse Resp B/P (MAP) Pulse Ox O2 Delivery O2 Flow Rate FiO2 03/11/20 02:43 91 High Flow N/C 6.00 03/11/20 01:00 60 03/11/20 00:24 High Flow N/C 50.00 03/11/20 00:03 36.3 03/11/20 00:00 NIV Bilevel 40 03/10/20 23:00 56 16 106/92 (97) 96 High Flow N/C 40.00 03/10/20 22:57 54 94 50.00 03/10/20 22:30 High Flow N/C 40.00 03/10/20 22:00 61 15 100 High Flow N/C 50.00 03/10/20 21:48 92 High Flow N/C 6.00 03/10/20 21:45 92 High Flow N/C 6.00 03/10/20 21:00 52 15 119/80 (93) 100 High Flow N/C 50.00 03/10/20 20:00 54 17 134/79 (97) 99 High Flow N/C 50.00 03/10/20 20:00 NIV Bilevel 60 03/10/20 19:49 36.6 03/10/20 19:00 57 16 121/66 (84) 96 High Flow N/C 50.00 03/10/20 19:00 58 03/10/20 18:00 58 17 148/77 (100) 99 High Flow N/C 10.00 03/10/20 17:52 59 20 97 50.00 03/10/20 17:00 60 16 119/90 (100) 96 High Flow N/C 10.00 03/10/20 16:00 High Flow N/C 10.00 03/10/20 16:00 66 17 126/85 (99) 95 High Flow N/C 10.00 03/10/20 15:23 36.6 03/10/20 15:06 95 High Flow N/C 10.00 03/10/20 15:00 74 20 133/65 (87) 93 High Flow N/C 10.00 03/10/20 14:00 49 16 130/87 (101) 97 High Flow N/C 10.00 03/10/20 13:09 51 03/10/20 13:00 49 17 141/103 (116) 96 NIV Bilevel 60.00 03/10/20 12:00 51 17 117/63 (81) 94 NIV Bilevel 60.00 03/10/20 12:00 NIV Bilevel 60 03/10/20 11:00 51 20 131/115 (120) 96 NIV Bilevel 60.00 03/10/20 10:49 55 18 97 50.00 03/10/20 10:00 45 18 124/63 (83) 95 NIV Bilevel 60.00 03/10/20 09:00 36.0 03/10/20 09:00 51 16 117/65 (82) 94 NIV Bilevel 60.00 03/10/20 08:31 48 03/10/20 08:00 NIV Bilevel 60 03/10/20 08:00 50 15 122/81 (95) 93 NIV Bilevel 60.00 03/10/20 07:00 49 16 120/82 (95) 93 NIV Bilevel 60.00 I & O 03/11/20 07:00 Intake Total 1630 ml Balance 1630 ml Height & Weight Height: 5'6.00" Weight: 212lbs. 1.0oz. 96.553225ve; 35.78 BMI Method:Estimated Capillary Refill: Less Than 3 Seconds Results Lab Laboratory Tests 03/09/20 13:05 03/10/20 03:00 03/11/20 02:43 Assessment/Plan Assessment/Plan Acute Respiratory failure with hypoxia -BiPAP PRn -Currently on NC 10liters/min -Titrate down -Labs and CXR reviewed -Check BNP COPDAE -SVNS -Solumedrol -Continue BiPAP PRN Hx of CHF - currently stable -Monitor NIDDM II hx of hypothyroid, HTN Morbid obesity WESLEY ALMAGUER DO Mar 11, 2020 04:19
[2020-03-11] MEDS ORDERED: ACETAMINOPHEN 500 MG TAB (TYLENOL) ONE (04:55)
[2020-03-11] MEDS ORDERED: ACETAMINOPHEN 500 MG TAB (TYLENOL) PO PRN (05:00)
[2020-03-11] MEDS: inSUlin ASPART (NovoLOG) 1 UNIT/0.01 ML (CHARGE PER UNIT) SC SCH ×4 (05:17→20:13)
[2020-03-11] MEDS: methylPREDNISolone 125 MG (Solu-MEDROL) VIAL IVP SCH ×3 (05:40→20:08)
[2020-03-11] MEDS: glipiZIDE 5 MG (GLUCOTROL) TAB PO SCH ×2 (05:40→20:06)
[2020-03-11] MEDS: LEVOTHYROXINE 100 MCG (LEVOTHROID) TAB PO SCH (05:41)
[2020-03-11] MEDS: ADVAIR HFA 115/21 MCG INHALER 8 GM IH SCH ×2 (06:17→19:26)
[2020-03-11] MEDS: FUROSEMIDE 40 MG (LASIX) TAB PO SCH (07:42)
[2020-03-11] MEDS: meTOproloL SUCCINATE 50 MG (TOPROL XL) TAB PO SCH (07:42)
[2020-03-11] MEDS: PANTOPRAZOLE 40 MG (PROTONIX) TAB PO SCH (07:43)
[2020-03-11] MEDS: FAMOTIDINE 20 MG (PEPCID) TABLET PO SCH ×2 (07:43→20:06)
[2020-03-11] MEDS: ASPIRIN 81 MG CHEW (CHILDREN'S ASA) PO SCH (07:43)
[2020-03-11] MEDS: metFORMIN 500 MG (GLUCOPHAGE) TAB PO SCH ×2 (07:43→17:44)
[2020-03-11] MEDS ORDERED: KCL 20 MEQ TAB (K-DUR) PO ONE (08:00)
--- NOTE | 2020-03-11 08:05 | Progress Note ---
Subjective Subjective/Events-last exam She states she is feeling great and about ready to go home. She normally uses 4- 5 lpm supplemental oxygen at home. Is currently on 6 lpm HFNC. Focused Exam Lactate Level 03/09/20 13:05: Lactic Acid Level 1.98 Objective Exam Last Set of Vital Signs Vital Signs Date Time Temp Pulse Resp B/P (MAP) Pulse Ox O2 Delivery O2 Flow Rate FiO2 03/11/20 07:00 67 39 135/96 (109) 93 High Flow N/C 6.00 03/11/20 07:00 36.6 03/11/20 00:00 40 Capillary Refill : Less Than 3 Seconds I&O Intake and Output 03/11/20 00:00 Intake Total 1280 ml Balance 1280 ml Intake Oral 1280 ml # Voids 7 General: Alert, No Acute Distress Lungs: Other (wheezing and decreased air movement throughout) Heart: Regular Rate, No Murmurs Abdomen: Normal Bowel Sounds, Soft Psych/Mental Status: Mental Status NL, Mood NL Results/Procedures Lab Laboratory Tests 03/10/20 21:35: Blood Gas Puncture Site RIGHT RADIAL, Blood Gas Patient Temperature 36.6, Arterial Blood pH 7.47H, Arterial Blood Partial Pressure CO2 68H, Arterial Blood Partial Pressure O2 59L, Arterial Blood HCO3 49*H, Arterial Blood Total CO2 50.9H, Arterial Blood Oxygen Saturation 90L, Arterial Blood Base Excess 22.9H, Da Test YES-POS, Blood Gas Ventilator Setting NO, Blood Gas Inspired Oxygen 50% 03/11/20 02:43: White Blood Count 6.3, Red Blood Count 3.91L, Hemoglobin 11.4L, Hematocrit 38, Mean Corpuscular Volume 96, Mean Corpuscular Hemoglobin 29, Mean Corpuscular Hemoglobin Concent 30L, Red Cell Distribution Width 14.9H, Platelet Count 205, Mean Platelet Volume 9.7, Sodium Level 140, Potassium Level 4.7, Chloride Level 88L, Carbon Dioxide Level 44H, Anion Gap 8, Blood Urea Nitrogen 28H, Creatinine 1.00, Estimat Glomerular Filtration Rate 58, BUN/Creatinine Ratio 28, Glucose Level 165H, Calcium Level 9.9, Corrected Calcium 10.5H, Magnesium Level 1.8, Total Bilirubin 0.2, Aspartate Amino Transf (AST/SGOT) 10, Alanine Aminotransferase (ALT/SGPT) 8, Alkaline Phosphatase 99, B-Type Natriuretic Peptide 116.1H, Total Protein 6.8, Albumin 3.3 03/11/20 02:50: Blood Gas Puncture Site RIGHT RADIAL, Blood Gas Patient Temperature 35.8, Arterial Blood pH 7.56H, Arterial Blood Partial Pressure CO2 47H, Arterial Blood Partial Pressure O2 146H, Arterial Blood HCO3 43*H, Arterial Blood Total CO2 44.1H, Arterial Blood Oxygen Saturation 94, Arterial Blood Base Excess 18.1H, Da Test YES-POS, Blood Gas Ventilator Setting NO, Blood Gas Inspired Oxygen 50% Microbiology 03/09/20 MRSA Screen - Final, Complete MRSA not isolated 03/09/20 Blood Culture - Preliminary, Resulted No growth Assessment/Plan Assessment/Plan (1) Acute on chronic respiratory failure with hypoxia and hypercapnia Status: Acute Assessment & Plan: PCO2 over 100 on admission. Improved minimally with bipap, had to increase pressure and FiO2 last night with small improvement in CO2, (did have resolution of hypoxia), but clinically significantly improved, continue to monitor closely. 03/11 improved, on 6 lpm high flow nasal cannula, PCO2 down to 60s last night, now with alkalosis, suspect secondary to posthypercapnic alkalosis along with hypokalemia and some intravascular volume depletion (2) COPD exacerbation Status: Acute Assessment & Plan: 03/10 Solumedrol, Combivent, Bipap- has severe hypercapnea with mild improvement on bipap overnight, but clinically her mental status is markedly improved. Possible change to vapotherm today. Pulm consulted, appreciate recommendations. R/O pneumonia, initial CXR with mild patchy right infiltrate, given one dose of ceftriaxone on admission. Afebrile, no leukocytosis and LA normal, will hold abx for now. (3) Non-insulin treated type 2 diabetes mellitus Status: Chronic Assessment & Plan: Diabetic diet, resume home medications. (4) CHF (congestive heart failure) Status: Chronic Assessment & Plan: BNP not significantly elevated, do not suspect exacerbation at this time. (5) Hypothyroidism Status: Chronic Assessment & Plan: Resume home levothyroxine. (6) HTN (hypertension) Status: Chronic Assessment & Plan: Resume home medications. Qualifiers: Qualified Codes: I10 - Essential (primary) hypertension (7) Morbid obesity Status: Chronic (8) Hypokalemia Status: Acute Assessment & Plan: Replace and monitor (9) Metabolic alkalosis with respiratory acidosis Status: Acute Assessment & Plan: Likely secondary to relatively rapid correction of her marked hypercapnic state, replace potassium and monitor. (10) DVT prophylaxis Status: Acute Assessment & Plan: Enoxaparin VAN GONZALEZ MD Mar 11, 2020 08:05
--- NOTE | 2020-03-11 08:19 | Diagnostic Imaging Report ---
Portable erect AP chest at 533 hours. INDICATION: COPD exacerbation. FINDINGS: The heart size is within normal limits and stable when compared to 03/10/2020. There is a vague area of increased density overlying both lung bases. This is probably related to the breast/chest tissue. However, the density in the right infrahilar region is perhaps slightly greater than on the prior exam. The possibility that there is an element of mild pneumonia/atelectasis in this area should be considered. The lungs are otherwise clear. The mediastinum is not widened. The osseous structures are intact. IMPRESSION: 1. There is a question of mild pneumonia/atelectasis in the right infrahilar region. If further study is desired, then follow-up PA and lateral chest would be recommended. 2. There is no acute cardiopulmonary abnormality noted otherwise. Dictated by: Dictated on workstation # [id number]
--- NOTE | 2020-03-11 09:40 | NUR ---
REPORT RECEIVED FROM JIMMY CHAPMAN AT BEDSIDE. PT TRANSFERRED TO ROOM 408. PT TOLERATED TRANSFER WELL. PT HAS NO COMPLAINTS AT THIS TIME. THIS RN ASSUMED CARE OF PT AT THIS TIME.
--- NOTE | 2020-03-11 09:44 | NUR ---
Report given to JIMMY Garcia who will assume pt care at this time. Pt transferred to [facility] at this time. Personal belongings with pt at this time. VSS.
--- NOTE | 2020-03-11 13:37 | NUR ---
"RD ASSESSMENT PMHx: pneumonia; COPD; HTN; hypothyroidism; DM PT INTERACTION: Pt was awake and pleasant during nutrition assessment. Pt states current appetite is alright. Note avg PO intake 75% x1d, per chart review. Pt states following a regular diet at home, and has no issues with chewing/swallowing food. Pt states no recent issues with nausea, vomiting, constipation, or diarrhea, and that her last BM was prior to admit. Note pt not currently on bowel regimen per chart review. Pt states unsure of recent wt changes, but feels like she has lost wt. Note recent 15# wt loss x2mon, per chart review. Pt states current DM management is good. Note recent HbA1c of 6.3 on 02/16/20, per chart review. Pt states management includes portion control and CHO counting. ABNORMAL NUTRITION-RELATED LAB VALUES LOW: Cl 88; HIGH: BNU 28; glu 165 Est. kcal needs: 1450 kcal | 15 kcal/kg Est. Pro needs: 77 g Pro | 0.8 g Pro/kg PES STATEMENT: Given current PO intake, no nutrition diagnosis at this time (NO-1.1) INTERVENTION: Continue with current diet order of CHO 75g/m 0snack diet. Discussed and reinforced DM management (previous education not given by this RD). Discussed healthy snack options and CHO counting. Pt verbalized understanding of information provided. Will continue to follow and reassess as pt needs, intake, and status change. MONITOR/EVALUATE: PO Intake; Plan of Care; Hydration Status; Weight Status; Lab Values Liza Puente, MS, RD, LD"
[2020-03-11] MEDS: PARoxetine 20 MG (PAXIL) TAB PO SCH (15:03)
[2020-03-11] MEDS: ENOXAPARIN 40 MG/0.4 ML (LOVENOX) SYR SC SCH (17:25)
[2020-03-11] MEDS: MONTELUKAST 10 MG (SINGULAIR) TAB PO SCH (20:06)
[2020-03-12] VITALS: BP 141/65
[2020-03-12] MEDS: ALBUTEROL/IPRATROP (COMBIVENT RESPIMAT) 4 GM INHALER IH SCH ×3 (02:12→10:31)
[2020-03-12 04:00] VITALS: BP 157/77
[2020-03-12] MEDS: inSUlin ASPART (NovoLOG) 1 UNIT/0.01 ML (CHARGE PER UNIT) SC SCH (06:15)
[2020-03-12] MEDS: glipiZIDE 5 MG (GLUCOTROL) TAB PO SCH (06:15)
[2020-03-12] MEDS: LEVOTHYROXINE 100 MCG (LEVOTHROID) TAB PO SCH (06:15)
[2020-03-12] MEDS: methylPREDNISolone 125 MG (Solu-MEDROL) VIAL IVP SCH (06:16)
[2020-03-12 06:23] LABS: HEMOGLOBIN 11.9 G/DL (11.5-16.0); MEAN PLATELET VOLUME 9.9 FL (7.4-10.4); RED CELL DISTRIBUTION WIDTH 14.6 % (10.0-14.5); WHITE BLOOD COUNT 5.6 10^3/uL (4.3-11.0)
[2020-03-12] MEDS ORDERED: LEVOTHYROXINE 75 MCG (LEVOTHROID) TABLET PO SCH (06:30)
[2020-03-12 06:44] LABS: BUN/CREATININE RATIO 32; CARBON DIOXIDE 43 MMOL/L (21-32); CHLORIDE 90 MMOL/L (98-107); CREATININE SERUM 0.94 MG/DL (0.60-1.30); GFR ESTIMATED > 60; GLUCOSE 201 MG/DL (70-105); POTASSIUM 4.5 MMOL/L (3.6-5.0); SODIUM 141 MMOL/L (135-145)
[2020-03-12] MEDS: ADVAIR HFA 115/21 MCG INHALER 8 GM IH SCH (07:04)
[2020-03-12 08:01] VITALS: BP 159/74
[2020-03-12] MEDS: metFORMIN 500 MG (GLUCOPHAGE) TAB PO SCH (08:41)
[2020-03-12] MEDS: FUROSEMIDE 40 MG (LASIX) TAB PO SCH (08:41)
[2020-03-12] MEDS: meTOproloL SUCCINATE 50 MG (TOPROL XL) TAB PO SCH (08:41)
[2020-03-12] MEDS: FAMOTIDINE 20 MG (PEPCID) TABLET PO SCH (08:41)
[2020-03-12] MEDS: ASPIRIN 81 MG CHEW (CHILDREN'S ASA) PO SCH (08:41)
[2020-03-12] MEDS: PANTOPRAZOLE 40 MG (PROTONIX) TAB PO SCH (08:43)
[2020-03-12] MEDS ORDERED: PRD20T PO (10:26)
--- NOTE | 2020-03-12 10:38 | Discharge Summary ---
Diagnosis/Chief Complaint Date of Admission Mar 09, 2020 at 13:25 Date of Discharge 03/12/20 Discharge Date: Mar 12, 2020 [facility] Dis[facility] Summary Discharge Physical Exam Allergies: Coded Allergies: Red Known Allergies (Unverified Allergy, Mild, 05/01/09) Vitals & I&Os Vital Signs Date Time Temp Pulse Resp B/P (MAP) Pulse Ox O2 Delivery O2 Flow Rate FiO2 03/12/20 08:05 High Flow N/C 6.00 03/12/20 08:01 36.4 67 22 159/74 (102) 90 03/11/20 00:00 40 General Appearance: No Apparent Distress, Obese Respiratory: Other (diminished breath sounds posteriorly but no wheezes rales or rhonchi) Cardiovascular: Regular Rate, Rhythm, No Edema, No Gallop, No JVD, No Murmur, Normal Peripheral Pulses Extremity: No Pedal Edema Hospital Course Was the Problem List Reviewed?: Yes the patient is a 54-year-old white female who been feeling increasing short of breath over the past several days prior to admission. She noted day before admission she was feeling increasingly sleepy. Upon arrival to the emergency room her CO2 level was over 100 with evidence for acute on chronic hypercapnic respiratory failure. BiPAP was initiated with improvement in symptoms such as mechanical ventilation was not required. She had no definitive evidence for infiltrate on chest x-ray white count was normal with no significant sputum production. She had still been actively smoking but with smoking cessation in the hospital nonmechanical ventilation in the initiation of Solu-Medrol with the remainder of her anti-inflammatory and bronchodilator therapy her condition rapidly improved. She remained afebrile and was COVID negative. Antibiotics were not initiated. Coag-negative staph grew from her sputum and it appears that one out of 3 blood cultures may be growing Acinetobacter. The patient had no evidence for septicemia indicative of contaminant. On the day of her discharge she was able to shower independently feeling well talking in full sentences stating that she was back to her baseline and wished to be discharged. Smoking cessation was discussed and she stated that she was aware of the association of her end-stage lung disease and smoking and her intent was to never smoke again. Help was offered but she felt that currently she did not have the desire to smoke and did not feel the need for further therapy. She was advised to follow up with [facility] in 1-2 weeks and was discharged on a prednisone taper 40 mg for 2 days 20 mg for 2 days then off. At the time of her discharge she has diminished breath sounds posteriorly presumed to be her baseline with no wheezing rales or rhonchi. Labs (last 24 hrs) Laboratory Tests 03/11/20 10:53: Glucometer 233H 03/11/20 16:03: Glucometer 263H 03/12/20 05:30: White Blood Count 5.6, Red Blood Count 4.03L, Hemoglobin 11.9, Hematocrit 39, Mean Corpuscular Volume 96, Mean Corpuscular Hemoglobin 30, Mean Corpuscular Hemoglobin Concent 31L, Red Cell Distribution Width 14.6H, Platelet Count 210, Mean Platelet Volume 9.9, Sodium Level 141, Potassium Level 4.5, Chloride Level 90L, Carbon Dioxide Level 43H, Anion Gap 8, Blood Urea Nitrogen 30H, Creatinine 0.94, Estimat Glomerular Filtration Rate > 60, BUN/Creatinine Ratio 32, Glucose Level 201H, Calcium Level 10.0 Microbiology 03/09/20 MRSA Screen - Final, Complete MRSA not isolated 03/09/20 Blood Culture - Preliminary, Resulted No growth Patient resulted labs reviewed. Pending Labs Laboratory Tests 03/12/20 05:30: White Blood Count 5.6, Red Blood Count 4.03, Hemoglobin 11.9, Hematocrit 39, Mean Corpuscular Volume 96, Mean Corpuscular Hemoglobin 30, Mean Corpuscular Hemoglobin Concent 31, Red Cell Distribution Width 14.6, Platelet Count 210, Mean Platelet Volume 9.9, Sodium Level 141, Potassium Level 4.5, Chloride Level 90, Carbon Dioxide Level 43, Anion Gap 8, Blood Urea Nitrogen 30, Creatinine 0.94, Estimat Glomerular Filtration Rate > 60, BUN/Creatinine Ratio 32, Glucose Level 201, Calcium Level 10.0 Imaging: Reviewed Imaging Films, Reviewed Imaging Report Discussion & Recommendations Discharge Planning: >30 minutes discharge planning Discharge Home Medications: Active Scripts Active Prednisone 20 Mg Tab 40 Mg PO DAILY 4 Days 40mg with breakfast for 2 days then 20mg for 2 days. Dispense 6 20mg tabs Triple Antibiotic Plus Oint (Neomycn/Baci Zn/Pmyx Bs/Pramox) 28.4 Gm Oint...g. 28.4 Gm TP TID apply to affected area on nose tid for 5 days Reported Protonix (Pantoprazole Sodium) 40 Mg Tablet.dr 40 Mg PO DAILY Spiriva (Tiotropium [place]) 1 Inh Aerp 1 Inh IH DAILY Famotidine 20 Mg Tablet 20 Mg PO BID Metoprolol Succinate 50 Mg Tab.er.24h 50 Mg PO DAILY Tylenol Extra Strength (Acetaminophen) 500 Mg Tablet 1,500 Mg PO Q8H PRN Aspirin 81 Mg Tab.chew 81 Mg PO DAILY Glipizide 5 Mg Tablet 5 Mg PO HS Glipizide 5 Mg Tablet 10 Mg PO DAILY TAKES 2 (5MG) TABS Fluticasone-Salmeterol 250-50 (Fluticasone Propion/Salmeterol) 1 Each Blst.w.dev 1 Puff INH BID [place]-3 Fish Oil 1,000 mg Sftg ([place]-3/Dha/Epa/Fish Oil) 1 Each Capsule 2,000 Mg PO DAILY Albuterol Sulfate 2.5 Mg/3 Ml Vial.neb 3 Ml NEB Q4-6 H PRN Montelukast Sodium 10 Mg Tablet 10 Mg PO HS Loratadine 10 Mg Tablet 10 Mg PO DAILY PRN Metformin HCl 500 Mg Tablet 500 Mg PO BID Levothyroxine Sodium 175 Mcg Tablet 175 Mcg PO DAILY Fluticasone Propionate 16 Gm [place].susp 2 [place] NS DAILY PRN Atorvastatin Calcium 10 Mg Tablet 10 Mg PO DAILY LAST FILLED 11-07-2019 #90 Potassium Chloride 10 Meq Tab.er.prt 10 Meq PO DAILY Furosemide 40 Mg Tablet 40 Mg PO DAILY Proair Hfa (Albuterol Sulfate) 1 Puff Puff 2 Puff INH Q6H PRN Paroxetine HCl 40 Mg Tablet 40 Mg PO 1500 Instructions to patient/family Please see electronic discharge instructions given to patient. Copy Copies To 1: [facility]/SUSAN LAZO MD Mar 12, 2020 10:38
== END 2020-03-12 11:48 | disposition home or self-care (01) | DRG 189 ==
LOC: EDUNIT# 12:58 → ER 12:58 → ICU 13:25 → 4TH 03-11 09:42
PROVIDERS: ADMIT Family Medicine; ATTEND Internal Medicine
DX: J96.22 Acute and chronic respiratory failure with hypercapnia (principal); J44.1 Chronic obstructive pulmonary disease with (acute) exacerbation; E87.2 Acidosis; E87.3 Alkalosis; Z20.828 Contact with and (suspected) exposure to other viral communicable diseases; E11.9 Type 2 diabetes mellitus without complications; I11.0 Hypertensive heart disease with heart failure; E66.01 Morbid (severe) obesity due to excess calories; E87.6 Hypokalemia; J96.21 Acute and chronic respiratory failure with hypoxia; E03.9 Hypothyroidism, unspecified; I50.9 Heart failure, unspecified
CPT/HCPCS: 36415; 71045; 80048; 80053; 82805; 82962; 83605; 83735; 83880; 84100; 85025; 85027; 87040; 87077; 87081; 87635; 94640; 94660; 94760; 96374; 96375

== ENCOUNTER 2020-03-27 12:42 | Inpatient (IN) | payer MEDICAID ==
[~2020-03-27] VITALS: Ht 162.5 cm; Wt 100.0 kg
[2020-03-27] VITALS (11 sets, daily range): BP systolic 95–140; BP diastolic 58–117
[~2020-03-27 12:42] MED LIST changes: +PANT40TA2 PO; +TIOT18CA2 IH
--- NOTE | 2020-03-27 12:50 | NUR ---
1250- DECISION TO INTUBATE PT. DR WETZEL AT BEDSIDE. PT BEING BAGGED. 1252- 20MG ETOMIDATE 1252- 50MG TOMI 1253- FIRST ATTEMPT AT INTUBATION, SUCCESSFUL. 7.5 ETT, 20 @ THE GUM, POSITIVE COLOR CHANGE, BILATERAL BREATH SOUNDS AUSCULTATED. 1256- 18FR OG PLACED 1315- 5 MG VERSED ADMINISTERED
[2020-03-27] MEDS ORDERED: PROPOFOL DRIP (ICU) 100 ML IV ONE (12:59)
[2020-03-27] MEDS ORDERED: methylPREDNISolone 125 MG (Solu-MEDROL) VIAL IV STA (13:02)
[2020-03-27] MEDS ORDERED: NS IV 1000 ML 1,000 ML IV SCH (13:02)
[2020-03-27] MEDS ORDERED: LACTATED RINGERS 1,000 ML IV ONE (13:02)
[2020-03-27] MEDS ORDERED: PIPERACILLIN SODIUM/TAZOBACTAM 4.5 GM in NS (IVPB) 100 ML IV ONE (13:15)
[2020-03-27] MEDS ORDERED: PROPOFOL DRIP (ICU) 100 ML IV SCH (13:15)
[2020-03-27] MEDS ORDERED: VANCOMYCIN INJECTION 750 MG in NS (IVPB) 250 ML IV SCH (13:15)
[2020-03-27] MEDS ORDERED: RT-ALBUTEROL/IPRATROPIUM 3 ML (DUONEB) VIAL INH ONE (13:15)
[2020-03-27 13:19] LABS: BILIRUBIN,URINE NEGATIVE (NEGATIVE); CLARITY,URINE CLOUDY; COLOR,URINE YELLOW; GLUCOSE, URINE (UA) 2+ (NEGATIVE); KETONES,URINE NEGATIVE (NEGATIVE); LEUKOCYTE ESTERASE ,URINE NEGATIVE (NEGATIVE); NITRITE,URINE POSITIVE (NEGATIVE); PROTEIN,URINE 2+ (NEGATIVE)
[2020-03-27 13:19] LABS: BASOPHILS % (AUTO) 0 % (0-10); EOSINOPHILS # (AUTO) 0.1 10^3/uL (0.0-0.3); EOSINOPHILS % (AUTO) 1 % (0-10); HEMATOCRIT 44 % (35-52); HEMOGLOBIN 13.1 G/DL (11.5-16.0); LYMPHOCYTES # (AUTO) 0.8 X 10^3 (1.0-4.0); LYMPHOCYTES % (AUTO) 11 % (12-44); MEAN CORPUSCULAR HEMOGLOBIN 29 PG (25-34); MEAN CORPUSCULAR HGB CONC 30 G/DL (32-36); MEAN CORPUSCULAR VOLUME 98 FL (80-99); MEAN PLATELET VOLUME 9.7 FL (7.4-10.4); MONOCYTES # (AUTO) 0.4 X 10^3 (0.0-1.0); MONOCYTES % (AUTO) 5 % (0-12); NEUTROPHILS # (AUTO) 6.3 X 10^3 (1.8-7.8); NEUTROPHILS % (AUTO) 83 % (42-75); PLATELET COUNT 131 10^3/uL (130-400); WHITE BLOOD COUNT 7.5 10^3/uL (4.3-11.0)
[2020-03-27 13:21] LABS: ALBUMIN 3.8 GM/DL (3.2-4.5)
[2020-03-27 13:22] LABS: CHLORIDE 85 MMOL/L (98-107); INR 0.9 (0.8-1.4); POTASSIUM 4.8 MMOL/L (3.6-5.0); PROTHROMBIN TIME PATIENT 12.1 SEC (12.2-14.7); SODIUM 140 MMOL/L (135-145)
[2020-03-27 13:23] LABS: ABG BASE EXCESS 25.8 MMOL/L (-2.5-2.5); ABG OXYGEN SATURATION 101 % (94-100); ABG PH 7.38 (7.37-7.43); ABG PO2 434 MMHG (79-93); ABG TCO2 55.9 MMOL/L (21.0-31.0)
[2020-03-27 13:23] LABS: CALCIUM 10.7 MG/DL (8.5-10.1)
[2020-03-27 13:24] LABS: GLUCOSE 310 MG/DL (70-105); TOTAL PROTEIN 7.6 GM/DL (6.4-8.2)
[2020-03-27 13:26] LABS: BILIRUBIN,TOTAL 0.3 MG/DL (0.1-1.0)
[2020-03-27 13:27] LABS: ALKALINE PHOSPHATASE 118 U/L (40-136)
[2020-03-27 13:28] LABS: CREATININE SERUM 0.82 MG/DL (0.60-1.30); GFR ESTIMATED > 60
[2020-03-27 13:29] LABS: BUN/CREATININE RATIO 15
[2020-03-27 13:30] LABS: ALANINE AMINOTRANSFERASE 13 U/L (0-55)
[2020-03-27 13:35] LABS: CARBON DIOXIDE 48 MMOL/L (21-32)
[2020-03-27] MEDS: PROPOFOL DRIP (ICU) 100 ML IV SCH ×3 (13:35→21:10)
[2020-03-27 13:36] LABS: ABG PCO2 91 MMHG (35-45); ALLENS TEST YES-POS; INSPIRED O2 80%; VENTILATOR YES
[2020-03-27 13:37] LABS: AMPHETAMINE SCREEN, URINE NEGATIVE (NEGATIVE); BARBITURATE SCREEN URINE NEGATIVE (NEGATIVE); BENZODIAZEPINES SCREEN URINE NEGATIVE (NEGATIVE); CANNABINOID SCREEN, URINE NEGATIVE (NEGATIVE); COCAINE SCREEN URINE NEGATIVE (NEGATIVE); METHADONE STAT NEGATIVE (NEGATIVE); METHAMPHETAMINE SCREEN URINE S NEGATIVE (NEGATIVE); OPIATE SCREEN URINE NEGATIVE (NEGATIVE); OXYCODONE STAT NEGATIVE (NEGATIVE); PROPOXYPHENE STAT NEGATIVE (NEGATIVE); TRICYCLIC ANTIDEPRESSANTS SCRE NEGATIVE (NEGATIVE)
[2020-03-27 13:37] LABS: PATIENT TEMP 35.7
--- NOTE | 2020-03-27 13:40 | ED Respiratory ---
General Chief Complaint: Unresponsive Stated Complaint: RESP FAILURE, COPD Source: patient Exam Limitations: no limitations History of Present Illness Date Seen by Provider: Mar 27, 2020 Time Seen by Provider: 12:40 Initial Comments Patient presents ER from home by EMS with chief complaint of shortness of air. No history of fever or productive cough. She has a history of COPD and respiratory failure. On nonrebreather per EMS she was 90% so they switched her to CPAP and said she was 98% and looking better. With patient arrived she is obtunded and gives no meaningful review of history or history of present illness. Allergies and Home Medications Allergies Coded Allergies: CALDERONANo Known Allergies (Unverified Allergy, Mild, 05/01/09) Home Medications Acetaminophen 500 Mg Tablet, 1,500 MG PO Q8H PRN for PAIN-MILD (1-4), (Reported) Albuterol Sulfate 1 Puff Puff, 2 PUFF INH Q6H PRN for SHORTNESS OF BREATH, (Reported) Albuterol Sulfate 2.5 Mg/3 Ml Vial.neb, 3 ML NEB Q4-6 H PRN for SHORTNESS OF BREATH, (Reported) Aspirin 81 Mg Tab.chew, 81 MG PO DAILY, (Reported) Atorvastatin Calcium 10 Mg Tablet, 10 MG PO DAILY, (Reported) LAST FILLED 11-07-2019 #90 Famotidine 20 Mg Tablet, 20 MG PO BID, (Reported) Fluticasone Propion/Salmeterol 1 Each Blst.w.dev, 1 PUFF INH BID, (Reported) Fluticasone Propionate 16 Gm [place].susp, 2 SPRAY NS DAILY PRN for CONGESTION, (Reported) Furosemide 40 Mg Tablet, 40 MG PO DAILY, (Reported) Glipizide 5 Mg Tablet, 10 MG PO DAILY, (Reported) TAKES 2 (5MG) TABS Glipizide 5 Mg Tablet, 5 MG PO HS, (Reported) Levothyroxine Sodium 175 Mcg Tablet, 175 MCG PO DAILY, (Reported) Loratadine 10 Mg Tablet, 10 MG PO DAILY PRN for AALLERGY SYMPTOMS, (Reported) Metformin HCl 500 Mg Tablet, 500 MG PO BID, (Reported) Metoprolol Succinate 50 Mg Tab.er.24h, 50 MG PO DAILY, (Reported) Montelukast Sodium 10 Mg Tablet, 10 MG PO HS, (Reported) Neomycn/Baci Zn/Pmyx Bs/Pramox 28.4 Gm Oint...g., 28.4 GM TP TID apply to affected area on nose tid for 5 days Prescribed by: CLAIRE BAZZI on 02/20/20 1031 Plover-3/Dha/Epa/Fish Oil 1 Each Capsule, 2,000 MG PO DAILY, (Reported) Pantoprazole Sodium 40 Mg Tablet.dr, 40 MG PO DAILY, (Reported) Paroxetine HCl 40 Mg Tablet, 40 MG PO 1500, (Reported) Potassium Chloride 10 Meq Tab.er.prt, 10 MEQ PO DAILY, (Reported) Prednisone 20 Mg Tab, 40 MG PO DAILY 40mg with breakfast for 2 days then 20mg for 2 days. Dispense 6 20mg tabs Prescribed by: SUSAN DUPONT on 03/12/20 1026 Tiotropium [place] 1 Inh Aerp, 1 INH IH DAILY, (Reported) Patient Home Medication List Home Medication List Reviewed: Yes Review of Systems Review of Systems Constitutional: see HPI (review the history per EMS and family.); No chills, No fever EENTM: No ear discharge, No ear pain Respiratory: cough, short of breath Cardiovascular: No chest pain, No edema All Other Systems Reviewed Negative Unless Noted: Yes Past Gdggvzz-Onynax-Kfhosb Hx Patient Social History Alcohol Use: Denies Use Recreational Drug Use: No Smoking Status: Current Everyday Smoker Type Used: Cigarettes 2nd Hand Smoke Exposure: Yes Recent Hopitalizations: Yes Immunizations Up To Date Tetanus Booster (TDap): Unknown PED Vaccines UTD: No Date of Pneumonia Vaccine: Aug 22, 2018 Date of Influenza Vaccine: Jun 12, 2019 Seasonal Allergies Seasonal Allergies: Yes Past Medical History Surgeries: Yes Gallbladder Respiratory: Yes (O2 DEPENDENT AT 5L/NC) Pneumonia, COPD Currently Using CPAP: Yes Currently Using BIPAP: No Cardiac: Yes High Cholesterol, Hypertension Neurological: No 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 Disorders: Denies 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 1.0oz. [id number]; 35.78 BMI Method:Estimated General Appearance: severe distress, obese Eyes: Bilateral Eye Normal Inspection, Bilateral Eye PERRL, Bilateral Eye EOMI HEENT: PERRL/EOMI, normal ENT inspection, pharynx normal (dry) Neck: full range of motion, normal inspection Respiratory: respiratory distress (oxygen sats in the 80s on CPAP 100% FiO2), decreased breath sounds, other (patient is making very little respiratory effor t) Cardiovascular: normal peripheral pulses, regular rate, rhythm, tachycardia Gastrointestinal: normal bowel sounds, non tender, soft Neurologic/Psychiatric: alert, normal mood/affect, oriented x 3 Skin: normal color, warm/dry Focused Exam Sepsis Stage: Ruled Out Reason for ruling out sepsis: no suspicion of infection. Lactate Level 03/27/20 12:49: Lactic Acid Level 0.67 Lactic Acid Level Laboratory Tests Test 03/27/20 12:49 Lactic Acid Level 0.67 MMOL/L (0.50-2.00) Procedures/Interventions Lumen: triple (1320) Central Line Procedure: betadine prep, sterile drapes applied, sterile dressing applied Position: internal jugular (R) Anesthesia: Lidocaine Volume Anesthetic (ccs): 3 Complications: none Post Position: sutured, good blood return, position confirmed w/ CXR Emergency consent for procedure was obtained. Se was positioned in the usual format and using the usual sterile garment and drapes the patient was dressed out. The skin was thoroughly cleaned with the supplied chlorhexidine prep. After the prep and dried a sterile drape was placed. The 20 cm 7 [place] triple-lumen catheter was flushed with sterile saline. We used ultrasound guidance to pass the introducer needle into the right internal jugular without difficulty. A guidewire was placed easily without difficulty. No ectopy was seen on the monitor. The supplied 11 blade scalpel was used to make a 2 mm incision at the inferior portion of the introducer needle. The introducer needle was replaced with the dilator. The dilator was taken out and the patient had the central lumen of the triple lumen catheter threaded over the guidewire and placed at 14 cm. The guidewire was removed and the triple-lumen catheter was stitched in place using the supplied braided stitch at 2 different points. The catheter withdrew blood and flushed easily. A sterile dressing was placed over the catheter. The patient tolerated the procedure well. A chest x-ray was obtained that demonstrated no pneumothorax and a new interval central catheter over the shadow of the right internal jugular down the superior vena cava and terminating just proximal to the right atria. Date of ETT Placement: Mar 27, 2020 Time of ETT Placement: 12:53 Intubation Method: orotracheal Tube Size: 7.5 Medications: Etomidate (20 mg), Rocuronium (50 mg) Positive End Tide CO2: Yes Breath Sounds after Intubation: bilateral-equal Intubation Complications: no complications Post Intubation Xray: Yes ET tube in good position 3 cm above the joi Using video laryngoscopic we laced the ET tube just past the vocal cords and inflated the balloon. Had good bilateral symmetric breath sounds with no sounds over the epigastric region. Colorimetric paper turned yellow on exhalation. Oxygen sats stayed above 98% the entire time. Placed on a ventilator 450 mL tidal volume, respiratory rate of 22 and PEEP 5 with FiO2 of 100%. Progress/Results/Core Measures Suspected Sepsis SIRS Temperature: Pulse: Respiratory Rate: Laboratory Tests 03/27/20 12:49: White Blood Count 7.5 Blood Pressure / Mean: 03/27/20 12:49: Lactic Acid Level 0.67 Laboratory Tests 03/27/20 12:49: Creatinine 0.82, INR Comment 0.9, Platelet Count 131, Total Bilirubin 0.3 Results/Orders Lab Results Laboratory Tests Test 03/27/20 12:49 03/27/20 13:04 03/27/20 13:15 Range/Units White Blood Count 7.5 4.3-11.0 10^3/uL Red Blood Count 4.53 4.35-5.85 10^6/uL Hemoglobin 13.1 11.5-16.0 G/DL Hematocrit 44 35-52 % Mean Corpuscular Volume 98 80-99 FL Mean Corpuscular Hemoglobin 29 25-34 PG Mean Corpuscular Hemoglobin Concent 30 L 32-36 G/DL Red Cell Distribution Width 14.4 10.0-14.5 % Platelet Count 131 130-400 10^3/uL Mean Platelet Volume 9.7 7.4-10.4 FL Neutrophils (%) (Auto) 83 H 42-75 % Lymphocytes (%) (Auto) 11 L 12-44 % Monocytes (%) (Auto) 5 0-12 % Eosinophils (%) (Auto) 1 0-10 % Basophils (%) (Auto) 0 0-10 % Neutrophils # (Auto) 6.3 1.8-7.8 X 10^3 Lymphocytes # (Auto) 0.8 L 1.0-4.0 X 10^3 Monocytes # (Auto) 0.4 0.0-1.0 X 10^3 Eosinophils # (Auto) 0.1 0.0-0.3 10^3/uL Basophils # (Auto) 0.0 0.0-0.1 10^3/uL Prothrombin Time 12.1 L 12.2-14.7 SEC INR Comment 0.9 0.8-1.4 Activated Partial Thromboplast Time 28 24-35 SEC Sodium Level 140 135-145 MMOL/L Potassium Level 4.8 3.6-5.0 MMOL/L Chloride Level 85 L 98-107 MMOL/L Carbon Dioxide Level 48 *H 21-32 MMOL/L Anion Gap 7 5-14 MMOL/L Blood Urea Nitrogen 12 7-18 MG/DL Creatinine 0.82 0.60-1.30 MG/DL Estimat Glomerular Filtration Rate > 60 BUN/Creatinine Ratio 15 Glucose Level 310 H 70-105 MG/DL Lactic Acid Level 0.67 0.50-2.00 MMOL/L Calcium Level 10.7 H 8.5-10.1 MG/DL Corrected Calcium 10.9 H 8.5-10.1 MG/DL Total Bilirubin 0.3 0.1-1.0 MG/DL Aspartate Amino Transf (AST/SGOT) 12 5-34 U/L Alanine Aminotransferase (ALT/SGPT) 13 0-55 U/L Alkaline Phosphatase 118 40-136 U/L Troponin I < 0.028 <0.028 NG/ML Total Protein 7.6 6.4-8.2 GM/DL Albumin 3.8 3.2-4.5 GM/DL Urine Color YELLOW Urine Clarity CLOUDY Urine pH 6.0 5-9 Urine Specific [place] >=1.030 1.016-1.022 Urine Protein 2+ H NEGATIVE Urine Glucose (UA) 2+ H NEGATIVE Urine Ketones NEGATIVE NEGATIVE Urine Nitrite POSITIVE H NEGATIVE Urine Bilirubin NEGATIVE NEGATIVE Urine Urobilinogen 1.0 < = 1.0 MG/DL Urine Leukocyte Esterase NEGATIVE NEGATIVE Urine RBC (Auto) 2+ H NEGATIVE Urine RBC 5-10 H /HPF Urine WBC >100 H /HPF Urine Squamous Epithelial Cells 10-25 H /HPF Urine Crystals NONE /LPF Urine Bacteria LARGE H /HPF Urine Casts NONE /LPF Urine Mucus /LPF Urine Culture Indicated YES Urine Opiates Screen NEGATIVE NEGATIVE Urine Oxycodone Screen NEGATIVE NEGATIVE Urine Methadone Screen NEGATIVE NEGATIVE Urine Propoxyphene Screen NEGATIVE NEGATIVE Urine Barbiturates Screen NEGATIVE NEGATIVE Ur Tricyclic Antidepressants Screen NEGATIVE NEGATIVE Urine Phencyclidine Screen NEGATIVE NEGATIVE Urine Amphetamines Screen NEGATIVE NEGATIVE Urine Methamphetamines Screen NEGATIVE NEGATIVE Urine Benzodiazepines Screen NEGATIVE NEGATIVE Urine Cocaine Screen NEGATIVE NEGATIVE Urine Cannabinoids Screen NEGATIVE NEGATIVE Blood Gas Puncture Site RT RADIAL Blood Gas Patient Temperature 35.7 Arterial Blood pH 7.38 7.37-7.43 Arterial Blood Partial Pressure CO2 91 *H 35-45 MMHG Arterial Blood Partial Pressure O2 434 H 79-93 MMHG Arterial Blood HCO3 53 *H 23-27 MMOL/L Arterial Blood Total CO2 55.9 H 21.0-31.0 MMOL/L Arterial Blood Oxygen Saturation 101 H 94-100 % Arterial Blood Base Excess 25.8 H -2.5-2.5 MMOL/L Da Test YES-POS Blood Gas Ventilator Setting YES Blood Gas Inspired Oxygen 80% My Orders Orders - AJ WETZEL Propofol Drip (Icu) (Diprivan Drip (Icu) (03/27/20 12:59) Propofol Drip (Icu) (Diprivan Drip (Icu) (03/27/20 13:15) Cbc With Automated Diff (03/27/20 13:02) Comprehensive Metabolic Panel (03/27/20 13:02) Blood Culture (03/27/20 13:02) Sputum Culture (03/27/20 13:02) Urinalysis (03/27/20 13:02) Urine Culture (03/27/20 13:02) Protime With Inr (03/27/20 13:02) Partial Thromboplastin Time (03/27/20 13:02) Chest 1 View, Ap/Pa Only (03/27/20 13:02) Ed Iv/Invasive Line Start (03/27/20 13:02) Ed Iv/Invasive Line Start (03/27/20 13:02) Ekg Tracing (03/27/20 13:02) Troponin I (03/27/20 13:02) Vital Signs Adult Sepsis Patie Q15M (03/27/20 13:02) O2 (03/27/20 13:02) Remove Rings In Anticipation O (03/27/20 13:02) Lactic Acid Analyzer (03/27/20 13:02) Lactated Ringers (Lr 1000 Ml Iv Solution (03/27/20 13:02) Ns Iv 1000 Ml (Sodium Chloride 0.9%) (03/27/20 13:02) Piperacillin Sodium/Tazobactam (Zosyn Vi (03/27/20 13:15) Ed Iv/Invasive Line Start (03/27/20 13:02) Albuterol/Ipra Inhalation Soln (Duoneb I (03/27/20 13:15) Methylprednisolone Sod Succ (Solu-Medrol (03/27/20 13:02) Svn Small Volume Nebulizer (03/27/20 13:02) Arterial Blood Gas (03/27/20 13:11) Drug Screen Stat (Urine) (03/27/20 13:11) End Tidal Co2 (03/27/20 13:11) Insulin (Regular) Human (Novolin R (Per (03/27/20 13:45) Norepinephrine 4 Mg/250 Ml (Norepinephri (03/27/20 13:45) Vancomycin Injection (Vancomycin Injecti (03/27/20 13:58) Medications Given in ED Current Medications Medications Dose Ordered Sig/Jeana Route Start Time Stop Time Status Last Admin Dose Admin Albuterol/ Ipratropium 3 ml ONCE ONCE INH 03/27/20 13:15 03/27/20 13:16 DC 03/27/20 13:40 3 ML Insulin Human Regular 5 unit ONCE ONCE SC 03/27/20 13:45 03/27/20 13:46 DC 03/27/20 14:08 5 UNIT Lactated Ringer's 1,000 ml @ 0 mls/hr Q0M ONCE IV 03/27/20 13:02 03/27/20 13:08 DC 03/27/20 13:34 0 MLS/HR Piperacillin Sod/ Tazobactam Sod 4.5 gm/Sodium Chloride 100 ml @ 200 mls/hr ONCE ONCE IV 03/27/20 13:15 03/27/20 13:44 DC 03/27/20 13:35 200 MLS/HR Vital Signs/I&O 03/27/20 03/27/20 03/27/20 03/27/20 12:45 12:45 13:00 13:35 Temp 35.7 Pulse 77 78 71 Resp 20 20 B/P (MAP) 169/70 (103) 148/116 Pulse Ox 95 100 O2 Delivery Ambu Bag Ambu Bag FiO2 80 Capillary Refill : Progress Note : Time: 13:58 Progress Note Discussed the case with the patient's family, daughter who is next of kin and says they were discussing using hospice. She had an appointment coming up this week to be with them. Dr. Bazzi discussed the case with primary care who says hospice was looking to enroll the patient on Saturday, 2 days from now during business hours. Gave options and the daughter would prefer we take her to the hospital on palliative care and have hospice connect with her from there. She says it was the patient's wishes not to in the hospital. ECG Initial ECG Impression Date: Mar 27, 2020 Initial ECG Impression Time: 13:07 Initial ECG Rate: 76 Initial ECG Rhythm: Normal Sinus Initial ECG Intervals: Normal Initial ECG Impression: Normal Initial ECG Comparisson: No Previous ECG Available Comment Sinus rhythm with clinically insignificant ST elevation likely physiologic. Diagnostic Imaging Diagonstic Imaging: Xray Plain Films/CT/US/NM/MRI: chest Comments ET tube in good position. Central line on the right internal jugular over the superior vena cava not crossing the midline without evidence of pneumothorax. No lobar pneumonia. OG tube in good position. NAME: SAMPSON CEVALLOS [facility] REC#: [id number] PT STATUS: REG ER : 1965 PHYSICIAN: AJ WETZEL MD ADMIT DATE: 03/27/20/ER Signed Date of Exam:03/27/20 CHEST 1 VIEW, AP/PA ONLY EXAMINATION: Chest 1 view HISTORY: Sepsis. COPD. COMPARISON: Chest radiograph on 03/11/2020. FINDINGS: Endotracheal tube is in place with the tip overlying the trachea approximately 7 cm above the joi. A right internal jugular central line is seen with the tip overlying the upper SVC. Enteric tube is visualized descending below the diaphragm with the tip not included on this exam. The lung volumes are normal. Patchy opacities are scattered in the right lung and in the left lung base. No large pleural effusion or pneumothorax is seen. The cardiomediastinal silhouette is normal in size and contour. No acute osseous abnormality is seen. IMPRESSION: 1. Patchy opacities throughout the right lung and in the left lung base, likely representing infectious or inflammatory etiology. 2. Support devices in appropriate configuration. Dictated by: Dictated on workstation # [id number] Dict: 03/27/20 1418 Trans: 03/27/20 1426 [facility] [id number] Interpreted by: ZULEMA VALVERDE DO Electronically signed by: ZULEMA VALVERDE DO 03/27/20 1426 Reviewed: Reviewed by Me Critical Care Note Critical Care Start Time: 12:40 Stop Time: 13:35 Total Time (minutes) 55 min Progress Patient was in acute respiratory distress on presentation with a GCS of less than 8. The decision was made to intubate. We used a bag valve mask to get her oxygen sats up to the 80s into the 100% range. The IVs were obtained, Enriquez catheter was placed, central line was placed as her blood pressure initially was low. I think she was breath trapping/stacking so we reduce the respiratory rate and this corrected the problem and her blood pressure improved. Levophed was ordered but never initiated for this reason. 5 units of insulin was given for her elevated hyperglycemia. Within learn that the patient was supposed to be going on hospice so after we had a chance to talk to her daughter and Can it was determined that she was looking into going into this program and had an appointment this week to speak with [facility]. We discussed goals of care. Family states the patient does not want to be intubated prolonged period time nor does she want to in the hospital. We did offer to extubate and faci litate her transfer home where she would probably promptly . We also offered to keep her in the hospital intubated without significant escalation of care and see what tomorrow brings. Family chose that option. They would also like consult with hospice today. Departure Communication (Admissions) Time/Spoke to Admitting Phy: 13:30 Discussed the case and situation with Dr. Bazzi and she agrees take the patient on palliative care. Time/Spoke to Consulting Phy: 15:30 Dr. Carbajal: Discussed the case with the eICU and plan for hospice consult and no escalation of care. DO NOT RESUSCITATE. Impression Primary Impression: COPD exacerbation Additional Impressions: Acute on chronic respiratory failure with hypoxia and hypercapnia palliative consult Disposition: ADMITTED INPATIENT Condition: Critical Admissions Decision to Admit Reason: Admit from ER (General) Decision to Admit/Date: Mar 27, 2020 Time/Decision to Admit Time: 13:25 Departure-Patient Inst. Referrals: [facility] (PCP/Family) Primary Care Physician AJ WETZEL Mar 27, 2020 13:40
[2020-03-27 13:43] LABS: WBC,URINE >100 /HPF
[2020-03-27 13:44] LABS: BACTERIA,URINE LARGE /HPF
[2020-03-27] MEDS ORDERED: inSUlin (REGULAR) HUMAN 1 UNIT/0.01 ML (CHARGE PER UNIT) SC ONE (13:45)
[2020-03-27] MEDS ORDERED: NOREPINEPHRINE 4 MG/250 ML 250 ML IV SCH (13:45)
[2020-03-27] MEDS ORDERED: VANCOMYCIN 1500 MG/NS 500 ML IVPB IV NR ×2 (13:58)
--- NOTE | 2020-03-27 14:21 | Diagnostic Imaging Report ---
EXAMINATION: Chest 1 view HISTORY: Sepsis. COPD. COMPARISON: Chest radiograph on 03/11/2020. FINDINGS: Endotracheal tube is in place with the tip overlying the trachea approximately 7 cm above the joi. A right internal jugular central line is seen with the tip overlying the upper SVC. Enteric tube is visualized descending below the diaphragm with the tip not included on this exam. The lung volumes are normal. Patchy opacities are scattered in the right lung and in the left lung base. No large pleural effusion or pneumothorax is seen. The cardiomediastinal silhouette is normal in size and contour. No acute osseous abnormality is seen. IMPRESSION: 1. Patchy opacities throughout the right lung and in the left lung base, likely representing infectious or inflammatory etiology. 2. Support devices in appropriate configuration. Dictated by: Dictated on workstation # [id number]
[2020-03-27] MEDS ORDERED: MIDAZOLAM 5 MG/5 ML (VERSED) VIAL IJ ONE (15:55)
[2020-03-27] MEDS ORDERED: ROCURONIUM 10 MG/ML 5 ML SYRINGE IV ONE (15:55)
[2020-03-27] MEDS ORDERED: ETOMIDATE IV SOLN 20 MG/10 ML VIAL IV ONE (15:55)
--- NOTE | 2020-03-27 16:32 | NUR ---
TIMELINE NOTE: 1632: PT ARRIVED FROM ED. PT MOVED TO ICU BED VIA ED COT WITH ASSIST X 4. BSM APPLIED, VITALS STABLE AT THIS TIME. THIS RN CALLED AND SPOKE WITH PATIENTS DAUGHTER AND SHE WILL BE AT BEDSIDE SHORTLY. 1650: PTS DAUGHTER ARRIVED, SPOKE WITH HER IN DETAIL REGARDING CODE STATUS AND WHAT HER EXPECTATIONS OF CARE ARE. PT STATED SHE DID NOT KNOW THAT HER MOTHER WAS MEETING WITH HOSPICE THIS COMING WEEK BUT THEY HAD SPOKEN ABOUT STARTING HOSPICE BEFORE. THIS RN REVIEWED WHAT HOSPICE CARE LOOKED LIKE IN THE HOME AND SHE AUTHORIZED ME TO CALL [facility] AND GIVE THE HER NUMBER FOR INFORMATIVE VISIT. THIS RN CALLED [facility] AND SPOKE WITH JIMMY JOSEPH. SHE WILL CALL PATIENTS DAUGHTER AND SET UP A TIME TO VISIT. THIS RN ALSO SPOKE WITH PATIENT REGARDING IN HOSPITAL COMFORT MEASURES. SPOKE WITH DR BAZZI VIA TELEPHONE AND VERIFIED THAT PATIENT WOULD NOT BE GETTING LABS OR ANY FURTHER AGGRESSIVE MEASURES. NO NEW ORDERS AT THIS TIME. 1838: PT LEAVING BEDSIDE TO GO SPEAK WITH [employer] WITH FAMILY MEMBERS. SHE STATED THAT SHE WILL THINK ABOUT HER OPTIONS AND LET NURSING STAFF KNOW.
[2020-03-27] MEDS ORDERED: ACETAMINOPHEN 650 MG SUPP (TYLENOL) PR PRN (17:00)
[2020-03-27] MEDS ORDERED: morphine INJ 4 MG/ML 1 ML (VIAL/SYRINGE) IV PRN (17:00)
[2020-03-27] MEDS: NS IV 1000 ML 1,000 ML IV SCH (18:18)
--- NOTE | 2020-03-27 18:41 | History & Physical-Hospitalist ---
History of Present Illness HPI/Chief Complaint CC: VDRF HPI: This is a 54yoWF known to me from multiple and frequent hospitalizations for AECOPD and end stage COPD who was just to be enrolled into Hospice on Saturday per [facility] [place] who presented to the ER in obvious respiratory failure requiring intubation due to CO2 narcosis. Family notified and hospice notified and patient will be admitted to ICU and no pressors will be used nor labs rechecked and will be terminally extubated once hospice enrolled. Source: RN/MD Exam Limitations: clinical condition (intubated) Date Seen 03/27/20 Time Seen by a Provider: 13:30 Attending Physician Leigha Lemus DO [facility] Referring Physician Date of Admission Mar 27, 2020 at 15:35 Home Medications & Allergies Home Medications Reviewed patient Home Medication Reconciliation performed by pharmacy medication reconciliations business office technician and/or nursing. Patients Allergies have been reviewed. Allergies Allergies Coded Allergies NKANo Known Allergies (Unverified Allergy, Mild, 05/01/09) Past Ldzvvvt-Ezdduo-Xwkvnd Hx Past Med/Social Hx: Reviewed Nursing Past Med/Soc Hx, Reviewed and Corrections made Patient Social History Marrital Status: single Employed/Student: unemployed Alcohol Use: Denies Use Recreational Drug Use: No Smoking Status: Current Everyday Smoker Type Used: Cigarettes 2nd Hand Smoke Exposure: Yes Recent Foreign Travel: No Contact w/other who traveled: No Recent Hopitalizations: Yes Recent Infectious Disease Expo: No Immunizations Up To Date Tetanus Booster (TDap): Unknown Pediatric: No Date of Pneumonia Vaccine: Aug 22, 2018 Date of Influenza Vaccine: Jun 12, 2019 Seasonal Allergies Seasonal Allergies: Yes Past Medical History Surgeries: Gallbladder Respiratory: COPD, Emphysema, Pneumonia, Sleep Apnea Currently Using CPAP: Yes Currently Using BIPAP: No Cardiac: High Cholesterol, Hypertension Sexually Transmitted Disease: No HIV/AIDS: No 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 Disorders: Denies Menopausal Endocrine: Hypothyroidsim, Diabetes, Non-Insulin dep Loss of Vision: Denies Hearing Impairment: Denies Psychosocial: Anxiety, Depression History of Blood Disorders: No Adverse Reaction to Blood Gonzalez: No Family History Cardiovascular disease 19 MOTHER, Onset:Unknown Diabetes mellitus 19 MOTHER, Onset:Unknown Heart Disease, Diabetes Review of Systems Constitutional: see HPI Physical Exam Physical Exam Vital Signs Vital Signs - First Documented 03/27/20 03/27/20 13:00 16:30 O2 Flow Rate 50.00 FiO2 80 Capillary Refill : Less Than 3 Seconds Height, Weight, BMI Height: 5'6.00" Weight: 212lbs. 1.0oz. 96.086138el; 37.86 BMI Method:Estimated General Appearance: No Apparent Distress, Chronically ill, Obese, Other (intubated) Respiratory: No Accessory Muscle Use, No Respiratory Distress, Decreased Breath Sounds, Other (intubated) Cardiovascular: Regular Rate, Rhythm, No Edema, No Gallop, No JVD, No Murmur, Normal Peripheral Pulses Results Results/Procedures Labs Laboratory Tests 03/27/20 12:49 Patient resulted labs reviewed. Assessment/Plan Admission Diagnosis Assessment: VDRF Hospice enrollment pending for Saturday End stage COPD SMoker Plan: ICU Vent DNR imminent Admission Status: Inpatient Order (span 2 midnights) Reason for Inpatient Admission: VDRF Diagnosis/Problems Diagnosis/Problems (1) Acute on chronic respiratory failure with hypoxia and hypercapnia Status: Acute (2) Morbid obesity Status: Chronic (3) Oxygen dependent Status: Chronic Clinical Quality Measures DVT/VTE Risk/Contraindication: Risk Factor Score Per Nursin RFS Level Per Nursing on Admit: 4+=Very High Other: PT GOING COMFORT CARE LEIGHA LEMUS DO Mar 27, 2020 18:41
[2020-03-27] MEDS: LORazepam INJ 2 MG/ML (ATIVAN) VIAL IV PRN (21:55)
[2020-03-28] VITALS (19 sets, daily range): BP systolic 114–153; BP diastolic 66–80
[2020-03-28] MEDS ORDERED: RT-ALBUTEROL SULF 2.5 MG/3 ML PRE-MIX VIAL ONE (00:50)
[2020-03-28] MEDS: RT-ALBUTEROL SULF 2.5 MG/3 ML PRE-MIX VIAL INH SCH ×4 (00:55→15:24)
[2020-03-28] MEDS: PROPOFOL DRIP (ICU) 100 ML IV SCH ×3 (00:59→12:10)
[2020-03-28] MEDS: NS IV 1000 ML 1,000 ML IV SCH ×3 (00:59→12:58)
--- NOTE | 2020-03-28 06:49 | Progress Note - Hospitalist ---
Subjective HPI/CC On Admission Date Seen by Provider: Mar 28, 2020 Time Seen by Provider: 11:00 CC: VDRF HPI: This is a 54yoWF known to me from multiple and frequent hospitalizations for AECOPD and end stage COPD who was just to be enrolled into Hospice on Saturday per Matthew Washington who presented to the ER in obvious respiratory failure requiring intubation due to CO2 narcosis. Family notified and hospice notified and patient will be admitted to ICU and no pressors will be used nor labs rechecked and will be terminally extubated once hospice enrolled. Subjective/Events-last exam Patient remains intubated DNR Family has just decided to terminally extubate Focused Exam Lactate Level 03/27/20 12:49: Lactic Acid Level 0.67 Objective Exam Vital Signs Vital Signs Date Time Temp Pulse Resp B/P (MAP) Pulse Ox O2 Delivery O2 Flow Rate FiO2 03/28/20 15:24 110 21 94 50 03/28/20 12:13 Mechanical Ventilator 03/28/20 12:10 126/69 03/28/20 12:00 50.00 03/28/20 11:06 37.4 Capillary Refill : Less Than 3 Seconds General Appearance: No Apparent Distress, WD/WN, Chronically ill, Obese, Other (intubated) Respiratory: Decreased Breath Sounds Results/Procedures Lab Patient resulted labs reviewed. Assessment/Plan Assessment and Plan Assess & Plan/Chief Complaint Assessment: [facility] Hospice enrollment pending for Saturday End stage COPD SMoker Plan: ICU Vent to be DC DNR imminent Diagnosis/Problems Diagnosis/Problems (1) Acute on chronic respiratory failure with hypoxia and hypercapnia Status: Acute (2) Morbid obesity Status: Chronic (3) Oxygen dependent Status: Chronic Clinical Quality Measures DVT/VTE Risk/Contraindication: Risk Factor Score Per Nursin RFS Level Per Nursing on Admit: 4+=Very High Other: PT GOING COMFORT CARE CLAIRE BAZZI DO Mar 28, 2020 06:49
[2020-03-28] MEDS ORDERED: ENOXAPARIN 40 MG/0.4 ML (LOVENOX) SYR SC SCH (08:15)
[2020-03-28] MEDS ORDERED: PANTOPRAZOLE 40 MG (PROTONIX) TAB PO SCH (09:00)
[2020-03-28] MEDS ORDERED: PANTOPRAZOLE 40 MG (PROTONIX) VIAL IV SCH (09:00)
[2020-03-28] MEDS: LORazepam INJ 2 MG/ML (ATIVAN) VIAL IV PRN (12:58)
--- NOTE | 2020-03-28 13:53 | NUR ---
PTS DAUGHTER HERE, STATES SHE WANTS TO TRANSITION TO COMFORT CARE. PROPOFOL TURNED OFF AND RT NOTIFIED.
--- NOTE | 2020-03-28 15:54 | NUR ---
DAUGHTER AT BEDSIDE. ORDER TO EXTUBATE PER TELEPHONE ORDER DR BAZZI. RT NOTIFIED AND PT WAS EXTUBATED AT 1554 TO ROOM AIR. PT DROWSY BUT ATTEMPTING TO TALK. SEE EMAR FOR MORPHINE ADMINISTRATION FOR LABORED BREATHING. SPOKE WITH EICU DOCTOR FOR COMFORT CARE ORDERS PER DR BAZZI. MONITORS REMOVED FROM PATIENT. SHE APPEARS COMFORTABLE AT THIS TIME. DAUGHTER AWARE TO USE CALL LIGHT IF SHE BECOMES UNCOMFORTABLE.
[2020-03-28] MEDS ORDERED: GLYCOPYRROLATE 0.2 MG/ML (ROBINUL) 2 ML VIAL IV PRN (18:00)
[2020-03-28] MEDS ORDERED: BISACODYL 10 MG SUPP (DULCOLAX) PR PRN (18:00)
[2020-03-28] MEDS ORDERED: ONDANSETRON 4 MG/2 ML (SDV) Z0FRAN IVP PRN (18:00)
[2020-03-28] MEDS ORDERED: SALIVA STIMULANT MOUTH SPRAY (BIOTENE) 1.5 OZ MM PRN (18:00)
[2020-03-28] MEDS ORDERED: ACETAMINOPHEN 650 MG SUPP (TYLENOL) PR PRN (18:00)
[2020-03-28] MEDS ORDERED: ARTIFICAL TEARS 0.4 ML UNIT DOSE (REFRESH PLUS) OU PRN (18:00)
[2020-03-28] MEDS ORDERED: PROMETHAZINE INJ 25 MG/ML (PHENERGAN) AMP IVP PRN (18:00)
--- NOTE | 2020-03-28 18:26 | NUR ---
REC'D PER BED FROM ICU ON COMFORT CARE. DENIES PAIN. ALERT AND ORIENTED X2 AND RESPONDS WELL. O2 ON AT 2L N/C. DAUGHTER AT BEDSIDE.
[2020-03-28] MEDS: morphine INJ 4 MG/ML 1 ML (VIAL/SYRINGE) IVP PRN ×3 (19:00→23:33)
[2020-03-28] MEDS: LORazepam INJ 2 MG/ML (ATIVAN) VIAL IVP PRN (21:53)
[2020-03-29] MEDS: LORazepam INJ 2 MG/ML (ATIVAN) VIAL IVP PRN ×2 (02:09→10:16)
[2020-03-29] MEDS: morphine INJ 4 MG/ML 1 ML (VIAL/SYRINGE) IVP PRN ×2 (09:03→12:55)
--- NOTE | 2020-03-29 10:19 | NUR ---
Palliative Care RN in to see patient who is CCMO. She has had 3 admission in a many months and 6 total for the year. She was intended to start Palliative Care through [facility] but was admitted before they could meet. She was Intubated initially with the understanding of no escalation of care and likely terminal extubation which is what happened. Upon my visit this morning she is sitting up in bed with tachypneic respirations and a rattle. JIMMY Olivera will give Ativan and Melchorinul from her PRN list. Educated daughter about POC. They would like to keep her here if possible. From my evaluation it is estimated that she has a 24 hour or less life expectancy. Will continue to follow and offer assist where able.
--- NOTE | 2020-03-29 10:34 | Progress Note - Hospitalist ---
Subjective HPI/CC On Admission Date Seen by Provider: Mar 29, 2020 Time Seen by Provider: 10:00 CC: VDRF HPI: This is a 54yoWF known to me from multiple and frequent hospitalizations for AECOPD and end stage COPD who was just to be enrolled into Hospice on Saturday per Matthew Washington who presented to the ER in obvious respiratory failure requiring intubation due to CO2 narcosis. Family notified and hospice notified and patient will be admitted to ICU and no pressors will be used nor labs rechecked and will be terminally extubated once hospice enrolled. Subjective/Events-last exam Comfort care protocol maintained Overall poor prognosis Daughter at the bedside along with a bottle capping machine operator Pt appears to be in the last stages of her life Review of Systems General: Fatigue, Malaise Neurological: Weakness Focused Exam Lactate Level 03/27/20 12:49: Lactic Acid Level 0.67 Objective Exam Vital Signs Vital Signs Date Time Temp Pulse Resp B/P (MAP) Pulse Ox O2 Delivery O2 Flow Rate FiO2 03/29/20 08:00 Nasal Cannula 2.00 03/28/20 15:24 110 21 94 50 03/28/20 12:10 126/69 03/28/20 11:06 37.4 Capillary Refill : Less Than 3 Seconds General Appearance: No Apparent Distress, WD/WN Respiratory: Accessory Muscle Use, Rales, Wheezing Skin: Normal Color, Warm/Dry Lymphatic: No Adenopathy Results/Procedures Lab Patient resulted labs reviewed. Assessment/Plan Assessment and Plan Assess & Plan/Chief Complaint Assessment: [facility] Hospice enrollment pending for Saturday End stage COPD SMoker Plan: ICU Vent to be DC DNR imminent 03/29/20: Comfort care protocol is eminent Diagnosis/Problems Diagnosis/Problems (1) Acute on chronic respiratory failure with hypoxia and hypercapnia Status: Acute (2) Morbid obesity Status: Chronic (3) Oxygen dependent Status: Chronic Clinical Quality Measures DVT/VTE Risk/Contraindication: Risk Factor Score Per Nursin RFS Level Per Nursing on Admit: 4+=Very High Other: PT GOING COMFORT CARE CLAIRE BAZZI DO Mar 29, 2020 10:34
--- NOTE | 2020-03-29 11:50 | NUR ---
Pastoral care visit, no family present had prayer with pt. who nodded head.
--- NOTE | 2020-03-29 12:47 | NUR ---
PALLIATIVE CARE RN in to see patient. She is the same with a pretty hard work of breathing and tachypnea. She is mottled up to her thighs. She has O2 on at 2 L. Morphine is last given almost 4 hours ago and I will see if RN will give again for air hunger. Family is at bedside.
--- NOTE | 2020-03-29 14:05 | NUR ---
PT FAMILY CAME TO THIS RN STATING THEY THINK SHE ISN'T BREATHING ANYMORE, THIS RN ASSESSED PT, NO RESPIRATIONS NOTED AND NO HEART BEAT HEARD OR PALPITATED. CONFIRMED BY PALLIATIVE CARE NURSE. PT FAMILY NOTIFIED.
--- NOTE | 2020-03-29 14:31 | Discharge Summary ---
Discharge Summary Hospital Course Was the Problem List Reviewed?: Yes Problems/Dx: (1) Acute on chronic respiratory failure with hypoxia and hypercapnia Status: Acute (2) Morbid obesity Status: Chronic (3) Oxygen dependent Status: Chronic Hospital Course Date of Admission: Mar 27, 2020 at 15:35 Admission Diagnosis : [facility] [place] Date of Discharge: 03/29/20 Discharge Diagnosis: acute on chronic resp failure Hospital Course: Brief course after admitted after intubation in ER. Patient was terminally extubated and moved to floor where she with daughter at bedside. Labs and Pending Lab Test: Microbiology 03/27/20 MRSA Screen - Final, Complete 03/27/20 Blood Culture - Preliminary, Resulted No growth 03/27/20 Urine Culture - Preliminary, Resulted Klebsiella pneumoniae Escherichia coli Susceptibility To Follow Home Meds Active Prednisone 20 Mg Tab 40 Mg PO DAILY 4 Days 40mg with breakfast for 2 days then 20mg for 2 days. Dispense 6 20mg tabs Triple Antibiotic Plus Oint (Neomycn/Baci Zn/Pmyx Bs/Pramox) 28.4 Gm Oint...g. 28.4 Gm TP TID apply to affected area on nose tid for 5 days Reported Protonix (Pantoprazole Sodium) 40 Mg Tablet.dr 40 Mg PO DAILY Spiriva (Tiotropium [place]) 1 Inh Aerp 1 Inh IH DAILY Famotidine 20 Mg Tablet 20 Mg PO BID Metoprolol Succinate 50 Mg Tab.er.24h 50 Mg PO DAILY Tylenol Extra Strength (Acetaminophen) 500 Mg Tablet 1,500 Mg PO Q8H PRN Aspirin 81 Mg Tab.chew 81 Mg PO DAILY Glipizide 5 Mg Tablet 5 Mg PO HS Glipizide 5 Mg Tablet 10 Mg PO DAILY TAKES 2 (5MG) TABS Fluticasone-Salmeterol 250-50 (Fluticasone Propion/Salmeterol) 1 Each Blst.w.dev 1 Puff INH BID Sod-3 Fish Oil 1,000 mg Sftg (Sod-3/Dha/Epa/Fish Oil) 1 Each Capsule 2,000 Mg PO DAILY Albuterol Sulfate 2.5 Mg/3 Ml Vial.neb 3 Ml NEB Q4-6 H PRN Montelukast Sodium 10 Mg Tablet 10 Mg PO HS Loratadine 10 Mg Tablet 10 Mg PO DAILY PRN Metformin HCl 500 Mg Tablet 500 Mg PO BID Levothyroxine Sodium 175 Mcg Tablet 175 Mcg PO DAILY Fluticasone Propionate 16 Gm [place].susp 2 [place] NS DAILY PRN Atorvastatin Calcium 10 Mg Tablet 10 Mg PO DAILY LAST FILLED 11-07-2019 #90 Potassium Chloride 10 Meq Tab.er.prt 10 Meq PO DAILY Furosemide 40 Mg Tablet 40 Mg PO DAILY Proair Hfa (Albuterol Sulfate) 1 Puff Puff 2 Puff INH Q6H PRN Paroxetine HCl 40 Mg Tablet 40 Mg PO 1500 Assessment/Pt Instructions Discharge Planning: <30 minutes discharge planning Discharge Physical Examination Vital Signs Vital Signs Date Time Temp Pulse Resp B/P (MAP) Pulse Ox O2 Delivery O2 Flow Rate FiO2 03/29/20 08:00 Nasal Cannula 2.00 03/28/20 15:24 110 21 94 50 03/28/20 12:10 126/69 03/28/20 11:06 37.4 General Appearance: Chronically ill Allergies: Coded Allergies: NKANo Known Allergies (Unverified Allergy, Mild, 05/01/09) Discharge Summary Date of Admission Mar 27, 2020 at 15:35 Date of Discharge Admission Diagnosis Assessment: [facility] Hospice enrollment pending for Saturday End stage COPD SMoker Plan: ICU Vent DNR imminent Comfort Measures/ End of Life Care: Comfort Measures Discharge Diagnosis Assessment: [facility] Hospice enrollment pending for Saturday End stage COPD SMoker Plan: ICU Vent to be DC DNR imminent 03/29/20: Comfort care protocol is eminent (1) Acute on chronic respiratory failure with hypoxia and hypercapnia Status: Acute (2) Morbid obesity Status: Chronic (3) Oxygen dependent Status: Chronic Clinical Quality Measures DVT/VTE Risk/Contraindication: Risk Factor Score Per Nursin RFS Level Per Nursing on Admit: 4+=Very High Other: PT GOING COMFORT CARE CLAIRE BAZZI DO Mar 29, 2020 14:31
--- NOTE | 2020-03-29 14:45 | NUR ---
Pastoral care visit, arrived at room, just after pt , sat with daughter, who was coping well.
--- NOTE | 2020-03-30 01:56 | NUR ---
BODY RELEASED TO [facility] FOR GIPSY TRANSPLANT.
== END 2020-03-29 14:05 | disposition expired | DRG 208 ==
LOC: EDUNIT# 12:42 → ER 12:44 → ICU 15:35 → 4TH 03-28 18:13
PROVIDERS: ADMIT Internal Medicine; ATTEND Internal Medicine
PROC: 0BH17EZ Insertion of Endotracheal Airway into Trachea, Via Natural or Artificial Opening (ICD-10-PCS; principal; 2020-03-27)
PROC: 5A1935Z Respiratory Ventilation, Less than 24 Consecutive Hours (ICD-10-PCS; 2020-03-27)
PROC: 02HV33Z Insertion of Infusion Device into Superior Vena Cava, Percutaneous Approach (ICD-10-PCS; 2020-03-27)
DX: J96.21 Acute and chronic respiratory failure with hypoxia (principal); J96.22 Acute and chronic respiratory failure with hypercapnia; J43.9 Emphysema, unspecified; Z66 Do not resuscitate; Z51.5 Encounter for palliative care; E66.01 Morbid (severe) obesity due to excess calories; E03.9 Hypothyroidism, unspecified; E11.9 Type 2 diabetes mellitus without complications; F41.9 Anxiety disorder, unspecified; F32.9 Major depressive disorder, single episode, unspecified; E78.00 Pure hypercholesterolemia, unspecified; I10 Essential (primary) hypertension; F17.210 Nicotine dependence, cigarettes, uncomplicated; Z99.81 Dependence on supplemental oxygen; Z87.01 Personal history of pneumonia (recurrent); Z79.84 Long term (current) use of oral hypoglycemic drugs; Z68.37 Body mass index [BMI] 37.0-37.9, adult
CPT/HCPCS: 31500; 36415; 51702; 71045; 80053; 80306; 81000; 82805; 83605; 84484; 85025; 85610; 85730; 87040; 87077; 87081; 87088; 93005; 94003; 94640; 94799; 99291